=== PATIENT | female | born 1945 | race Caucasian/White ===

== ENCOUNTER 2021-02-22 07:38 | Inpatient (IN) | payer MEDICARE, MEDICAID, SELFPAY ==
[2021-02-22] VITALS (16 sets, daily range): BP systolic 128–164; BP diastolic 74–108; PULSE 67–99; RESP 18–26; TEMP 35.9–37.1; O2SAT 90–99; BMI 35.4
--- NOTE | ~2021-02-22 | US_ITS ---
EXAMINATION: US carotid duplex BI DATE: 02/22/2021 15:38 INDICATION: Cerebrovascular accident TECHNIQUE: Grayscale, color Doppler, and pulsed Doppler images of the cervical carotid arteries were obtained. The degree of vessel stenosis is placed in one of the following categories: normal, <50%, 5 0-69%, >=70% but less than near-occlusion, near-occlusion, or total occlusion. Note that percent sten osis relative to normal distal artery lumen diameter is indirectly measured from velocity measurement s as described by Brown, et al. Radiology 2003; 229:340-346. COMPARISON: None. FINDINGS: The technologist notes that examination was very limited due to tortuous vessels and inabil ity of the patient to fully cooperate, including inability to hold still and patient coughing. RIGHT: The right common carotid artery (CCA) peak systolic velocity (PSV) is 67.7 cm/s. The right internal c arotid artery (ICA) PSV is 99.1 cm/s. The right ICA end-diastolic velocity (EDV) is 24.1 cm/s. [facility] ICA/CCA PSV ratio is 1.46. Grayscale and color Doppler images yield an estimate of less than 50% diameter reduction from plaque in the ICA. The external carotid artery (ECA) PSV is 95.2 cm/s. There is antegrade flow in the right vertebral artery. LEFT: The left CCA PSV is 82.3 cm/s. The left ICA PSV is 99.1 cm/s. The left ICA EDV is 39.6 cm/s. The left ICA/CCA PSV ratio is 1.20. Grayscale and color Doppler images yield an estimate of less than 50% yaa meter reduction from plaque in the ICA. The ECA IS NOT WELL DEMONSTRATED.. There is antegrade flow in the left vertebral artery. IMPRESSION: 1. Less than 50% stenosis in the right internal carotid artery. 2. Less than 50% stenosis in the left internal carotid artery. Reviewed, dictated and finalized at [facility]. Reviewed, dictated and finalized at [facility].
--- NOTE | ~2021-02-22 | XR_ITS ---
EXAMINATION: XR barium swallow modified DATE: 02/23/2021 10:55 INDICATION: Dysphagia. New cerebrovascular accident. TECHNIQUE: The patient was given barium-containing material of multiple consistencies to swallow by leyla pretty speech pathologist while I performed fluoroscopy. Dose-area product was 2.349 Gy-cm2. 3.3 minutes fluoroscopy time FINDINGS: Oral Stage: Within functional limits Pharyngeal Phase: Reduced laryngeal elevation and laryngeal penetration Cervical/Esophageal Stage: Within functional limits IMPRESSION: Modified esophagram findings as above. Please refer to the speech therapy report for spec [facility] recommendations. Reviewed, dictated and finalized at [facility]. Reviewed, dictated and finalized at [facility]. IMPRESSION: Modified esophagram findings as above. Please refer to the speech t herapy report for specific recommendations.
--- NOTE | ~2021-02-22 | CT_ITS ---
EXAMINATION: CT brain wo con DATE: 02/22/2021 08:37 INDICATION: Difficulty speaking. TECHNIQUE: Computed tomography (CT) of the head was performed without intravenous contrast. Sagittal and coronal reconstructions were performed. The mA was adjusted according to patient size. Iterative reconstruction technique was employed. The dose-length product was 529.67 mGy-cm. COMPARISON: head CT dated 10/10/2017 FINDINGS: Subtle small region of loss of ellis-white matter differentiation along a gyrus in the left frontal lo be suspicious for acute infarct. No acute intracranial hemorrhage or abnormal extra axial fluid colle ction. Again seen are small old cortical infarcts at the left lentiform nucleus and at the head of th e right caudate nucleus and adjacent anterior limb of the right internal capsule. Additional small ol d infarct in the inferior left cerebellar hemisphere. There is mild scattered white matter hypoattenu ation consistent with chronic small vessel ischemic disease. Ventricles are normal and symmetric. No mass/mass effect. Small amount of intracranial calcified cerebral atherosclerosis is noted at the ca rotid siphons. The orbits, paranasal sinuses and mastoid air cells are normal. IMPRESSION: 1. Subtle small region of loss of ellis-white matter differentiation in the left frontal lobe suspicio us for acute infarct. 2. Unchanged small lacunar infarcts in the bilateral basal ganglia and left cerebellum. 3. Mild scattered white matter hypoattenuation consistent with chronic small vessel ischemic disease. Reviewed, dictated and finalized at location [facility]. IMPRESSION: 1. Subtle small region of loss of ellis-white matter differentiation in the left frontal lobe suspicious for acute infarct. 2. Unchanged small lacunar infarcts in the bilateral basal ganglia and left cer ebellum. 3. Mild scattered white matter hypoattenuation consistent with chronic small ve ssel ischemic disease.
--- NOTE | ~2021-02-22 | MR_ITS ---
EXAMINATION: MR brain/brain stem wo con DATE: 02/23/2021 11:39 INDICATION: Cerebrovascular accident. TECHNIQUE: Magnetic resonance imaging (MRI) of the brain and brainstem was performed without intraven ous contrast. Sequences included sagittal and axial T1-weighted FSE, axial diffusion-weighted FS EPI, axial T2*-weighted GRE, axial T2-weighted FLAIR Propeller, and axial T2-weighted Propeller. Apparent diffusion coefficient (ADC) maps were created. COMPARISON: Head CT 02/22/2021 FINDINGS: There is a small acute infarct in left occipital lobe. There is an acute infarct in posteri or left frontal lobe. There is no intracranial hemorrhage or abnormal mass lesion. There are old infa rcts in the bilateral basal ganglia. There are scattered areas of nonspecific increased T2-weighted s ignal intensity in the cerebral white matter. There is a small area of chronic cystic encephalomalaci a in the right frontal lobe deep white matter. The ventricles are normal in size. There are likely ch anges of left ocular lens replacement surgery. The paranasal sinuses are clear. The mastoid air cells are normal. IMPRESSION: 1. Acute infarct involving left occipital lobe and posterior left frontal lobe. 2. Old infarcts in the bilateral basal ganglia and right frontal lobe deep white matter. 3. Mild nonspecific cerebral white matter disease, which likely represents chronic small vessel ische brittany disease. Reviewed, dictated and finalized at location [facility]. IMPRESSION: 1. Acute infarct involving left occipital lobe and posterior left frontal lobe. 2. Old infarcts in the bilateral basal ganglia and right frontal lobe deep whit e matter. 3. Mild nonspecific cerebral white matter disease, which likely represents oven baker jake small vessel ischemic disease.
--- NOTE | ~2021-02-22 | XR_ITS ---
EXAMINATION: XR chest 1V DATE: 02/22/2021 08:41 INDICATION: Stroke presenting with difficulty speaking. TECHNIQUE: frontal view of the chest was obtained. COMPARISON: Chest radiograph dated 04/20/2019 FINDINGS: New opacities at the left lower lung zone with loss of sharpness of the margins of the left hemidiaph ragm which could represent atelectasis, aspiration or pneumonia. Right lung remains clear. No pulmona ry edema, pneumothorax or definitive pleural effusion. The cardiomediastinal silhouette is normal. IMPRESSION: 1. New left basilar lung disease which could represent atelectasis, aspiration or pneumonia. Reviewed, dictated and finalized at location [facility].
--- NOTE | 2021-02-22 07:58 | ECG_ITS ---
Measurements Intervals [place] Rate: 73 P: 90 [place]: 222 QRS: 227 QRSD: 141 T: 45 QT: 403 QTc: 447 Interpretive Statements SINUS RHYTHM WITH FIRST DEGREE AV BLOCK FREQUENT ATRIAL PREMATURE COMPLEXES RIGHT AXIS DEVIATION LEFT BUNDLE BRANCH BLOCK BASELINE ARTIFACT- I, II, III, AVR, AVF, V2-V6 ABNORMAL ECG Electronically Signed On 02-22-2021 9:06:41 CDT by Chau Vega D.O.
[2021-02-22 08:18] LABS: Basophils Percent Auto 0.6 % (0.2-1.2); Eosinophils Absolute Auto 0.2 K/mm3 (0-0.3); Eosinophils Percent Auto 4.3 % (0-4.4); Hematocrit 37.9 % (37.0-47.0); Immature Granulocyte Absolute 0.01 K/mm3 (0.00-0.031); Immature Granulocyte Percent A 0.2 % (0-0.5); Lymphocytes Absolute Auto 1.27 K/mm3 (0.9-3.2); Lymphocytes Percent Auto 25.9 % (18.3-44.2); Mean Corpuscular HGB Conc 31.7 g/dl (32-36); Mean Corpuscular Volume 97.9 fl (80-100); Mean Platelet Volume 9.6 fl (7.4-10.4); Monocytes Absolute Auto 0.4 K/mm3 (0.1-0.6); Monocytes Percent Auto 8.6 % (2.6-8.5); Neutrophils Percent Auto 60.4 % (45.5-73.1); Platelet Count Result 250 k/mm3 (150-375); Red Blood Count 3.87 M/mm3 (4.2-5.4); Red Cell Distribution Width 14.8 % (11.5-14.5); White Blood Count 4.9 K/mm3 (4.5-10.0)
[2021-02-22 08:29] LABS: Glucose Point of Care 111 (65-105)
[2021-02-22 08:30] LABS: Prothrombin Time 13.3 Seconds (11.1-14.7)
--- NOTE | 2021-02-22 08:30 | ED.GENADULT ---
HPI - General Adult General Chief complaint: Neuro Symptoms/Deficit Stated complaint: APHASIA Time Seen by Provider: 02/22/21 07:44 Source: patient, family, EMS and RN notes reviewed Mode of arrival: EMS Limitations: clinical condition History of Present Illness HPI narrative: Patient is 75 years old white female came to the emergency room with her daughter by ambulance complaining of difficulty talking and numbness of the right face started last night. Woke up this morning with the same complaint. Patient denies any weakness, numbness anywhere else. Patient is not on any blood thinner although had history of CVA 2 years ago without residual deficit. Related Data Home Medications Medication Instructions Recorded Confirmed atorvastatin 80 mg tablet 80 mg PO DAILY 12/07/19 02/22/21 carvedilol 6.25 mg tablet 6.25 mg PO BID tablet 12/07/19 02/22/21 ezetimibe 10 mg tablet 10 mg PO DAILY 12/07/19 02/22/21 fenofibrate 160 mg tablet 160 mg PO DAILY 12/07/19 02/22/21 furosemide 20 mg tablet 20 mg PO DAILY tablet 12/07/19 02/22/21 gabapentin 300 mg capsule 300 mg PO TID 12/07/19 02/22/21 glipizide 10 mg tablet 10 mg PO BID 12/07/19 02/22/21 pantoprazole 40 mg tablet,delayed 40 mg PO DAILY tablet 12/07/19 02/22/21 release sitagliptin 100 mg tablet 100 mg PO DAILY 12/07/19 02/22/21 albuterol sulfate 1 inh INHALATION PRN PRN 02/22/21 02/22/21 cetirizine 10 mg PO DAILY 02/22/21 02/22/21 ergocalciferol (vitamin D2) 1,250 mcg PO WEEKLY 02/22/21 02/22/21 hydrocodone-acetaminophen 1 tablet PO Q6-8H PRN 02/22/21 02/22/21 insulin detemir U-100 [Levemir 10 unit SUBCUT DAILY 02/22/21 02/22/21 U-100 Insulin] insulin lispro 10 unit SUBCUT ACINSULIN 02/22/21 02/22/21 metoclopramide HCl [Reglan] 10 mg PO Q6H PRN 02/22/21 02/22/21 Allergies Allergy/AdvReac Type Severity Reaction Status Date / Time clindamycin Allergy Unknown Unknown Verified 02/22/21 08:29 morphine Allergy Unknown Unknown Verified 02/22/21 08:29 nitroglycerin Allergy Unknown Unknown Verified 02/22/21 08:29 Penicillins Allergy Unknown Unknown Verified 02/22/21 08:29 Review of Systems Review of Systems: Narrative: CONSTITUTIONAL: Denies fever, chills, or sweats. EYES: Denies visual changes, redness, or discharge. ENT: Denies rhinorrhea, congestion, sore throat, or otalgia. CARDIOVASCULAR: Denies chest pain, palpitations, or edema. RESPIRATORY: Denies cough or dyspnea. GASTROINTESTINAL: Denies abdominal pain, nausea, vomiting, or diarrhea. GENITOURINARY: Denies dysuria or hematuria. SKIN: Denies rash or itching. MUSCULOSKELETAL: Denies back pain, joint pain, or myalgia. NEUROLOGIC: Slurred speech PSYCHIATRIC: Denies anxiety or depression. 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, managed as type 2 Diastolic dysfunction Dyslipidemia Essential hypertension Hypersomnia SUZANNE on CPAP Stage III chronic kidney disease Unspecified diastolic (congestive) heart failure Surgical History Surgical History History of hysterectomy Family History Family History Father Family history of malignant neoplasm Social History Social History Smoking status: Never smoker Alcohol intake: current Gender identity (if verbalized by the patient): Female Exam Narrative: Exam Narrative: General appearance: Well-developed, well-nourished, daughter at the bedside Skin: Normal color Head: Normocephalic, nontraumatic Eyes: Clear conjunctiva ENT: Oropharynx normal, ears normal, nose normal Neck: Supple, nontender Chest and respiratory: Airway patent, no respiratory distress, no accessory muscle use Heart: Regular rate/rhythm Abdomen: Soft, nonte
[2021-02-22 08:31] LABS: Partial Thromboplastin Time 21.8 SECONDS (22.3-36.8)
[2021-02-22 08:35] LABS: Anion Gap 3 mmol/L (8-16); Blood Urea Nitrogen 35 mg/dL (7-17); Calcium 9.3 mg/dL (8.4-10.2); Carbon Dioxide 29 mmol/L (22-30); Chloride 110 mmol/L (98-107); Estimated CRCL calculation 36 ml/min; Estimated Glomerular Filt Rate 34; Glucose 109 mg/dL (65-105); Potassium 4.7 mmol/L (3.4-5.0); Sodium 142 mmol/L (137-145)
[2021-02-22 08:47] LABS: Troponin I 0.025 ng/mL (0.000-0.034)
[2021-02-22] MEDS: ASPIRIN 81 MG CHEWABLE TABLET 324 MG PO (10:54)
--- NOTE | 2021-02-22 12:16 | ADMGEN ---
This patient, Sarah Alvarado, was admitted to 2 Medical Room 252-01. Patient/family oriented to hospital policies and general routines including ID bracelet, bed and alarms, visiting hours, pain management, procedures, bathroom and other care routines, personal items, smoking policy, room service/diet, and visiting hours. Information on how to activate the Rapid Response Team has been discussed. Patient/Family are encouraged to report perceived risks to care and to ask questions if they do not understand what they are told or what they should do. Report received from NETTE Garcias.
[2021-02-22 13:24] LABS: Glucose Point of Care 129 (65-105)
[2021-02-22 14:36] LABS: Hemoglobin A1C 7.5 % (<5.7)
--- NOTE | 2021-02-22 14:45 | PM.IMHP ---
H&P: HPI History of Present Illness Date/Time: 02/22/21 14:45 Chief Complaint: Difficulty speaking and right facial numbness. Narrative: This is a 75-year-old female with multiple medical problems including congestive heart failure, hypertension, dyslipidemia, diabetes, chronic kidney disease, anemia, sleep apnea, and several other comorbidities who presented to the emergency department earlier today via EMS from home for evaluation of difficulty speaking and right facial numbness that she 1st noted last night. She and her daughter went to the [facility] yesterday and she got home at approximately 22:30 and seemed in her normal state of health. She drifted off to sleep for a couple of hours and awoke at 00:30, at which time she had some paresthesias in the right side of her face and she also noticed that she was having difficulty speaking. Unfortunately she went to bed and when she woke this morning her symptoms were still present and she came in for evaluation. Brain CT done on arrival to the ED showed a small area in the left frontal lobe suspicious for acute infarct and she is being admitted in this setting. At the time of my evaluation she reports that her speech has improved somewhat and she is able to provide a pretty good history although has times where it is difficult for her to come up with the appropriate word. In addition to dysarthria and facial paresthesias she also notes some issues with swallowing and has had drooling from the right side of her mouth. Chest x-ray also demonstrated left basilar disease, possible pneumonia or aspiration, but she denies symptoms and concerns for both of these. At this time she denies vertigo, focal weakness, auditory and visual changes, and palpitations (she will have them on occasion however). No history of cardiac dysrhythmia or carotid artery disease. Review of Systems Review of Systems: Narrative: Twelve systems were reviewed with pertinent positives and negatives as per HPI. She denies fever, chills, and sweats. No recent cold or flu symptoms. No known exposure to those positive for COVID-19. She denies concerns for aspiration. No cough. No orthopnea or PND. Her CPAP has a broken part which her insurance will not cover and she is unable to afford that she has not been using her CPAP. She believes her diabetes is fairly well controlled but admits that her numbers are typically higher in the afternoons. No recent lows. She denies blurry vision, polydipsia, and polyuria. No nausea, vomiting, or diarrhea. She received her 2nd vaccination for COVID approximately 2 weeks ago. Except as documented, all other systems were reviewed and are negative. [facility] Past Medical History Medical History (Updated 02/22/21 @ 14:06 by Rubi Crisostomo PA-C) Anemia of chronic disease Cerebrovascular accident 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 Chronic obstructive pulmonary disease Congestive heart failure History of reduced ejection fraction with improvement in EF to 55% on most recent echo. Diastolic dysfunction also noted. 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 Depression with anxiety Diabetic peripheral neuropathy Dyslipidemia Essential hypertension Fibromyalgia Gastroesophageal reflux disease History of peptic ulcer Hypersomnia Insulin dependent type 2 diabetes mellitus Obstructive sleep apnea on CPAP Osteoarthritis Stage III chronic kidney disease Baseline creatinine ranges between 1.3 and 1.60. Vitamin D deficiency Surgical History Surgical History (Updated 02/22/21 @ 14:03 by Rubi Crisostomo PA-C) History of appendectomy History of cardiac catheterization (~07/2013) Normal coronaries although anomalous left coronary artery arising from the right ostium was noted. History of hysterectomy (~1979) History of left breast biopsy
[2021-02-22] MEDS: ALBUTEROL SULFATE (*SP) INHALER 1 PUFF INHALATION (14:51)
--- NOTE | 2021-02-22 15:20 | PCPTNOTE ---
attempted eval, pt was unavailable, receiving carotid US.
[2021-02-22] MEDS: GABAPENTIN 300 MG CAPSULE PO ×2 (15:33→20:42)
[2021-02-22] MEDS: HYDROcodone/acetaminophen (*CRX) 10-325 MG TABLET 1 TAB PO ×2 (15:48→21:57)
[2021-02-22] MEDS: glipiZIDE 5 MG TABLET 10 MG PO (16:48)
[2021-02-22] MEDS: INSULIN ASPART (*BKC) 100 UNITS/ML 10 UNITS SUB-Q (16:53)
[2021-02-22 16:54] LABS: Glucose Point of Care 162 (65-105)
[2021-02-22] MEDS: FLUTICASONE PROPIONATE 0.05% NA SPR 16 GM BTL (*BKC) 1 SPRAY NASAL (20:41)
[2021-02-22] MEDS: INSULIN DETEMIR 100 UNITS/ML 40 UNITS SUB-Q (20:42)
[2021-02-22] MEDS: MELATONIN 5 MG TABLET PO (21:05)
[2021-02-22 21:14] LABS: Glucose Point of Care 139 (65-105)
[2021-02-23] VITALS (14 sets, daily range): BP systolic 107–143; BP diastolic 56–83; PULSE 64–116; RESP 16–18; TEMP 35.9–36.8; O2SAT 90–97; BMI 35.4
--- NOTE | 2021-02-23 00:15 | ECG_ITS ---
Measurements Intervals [place] Rate: 64 P: 91 [place]: 219 QRS: -53 QRSD: 133 T: 65 QT: 402 QTc: 415 Interpretive Statements SINUS RHYTHM WITH FIRST DEGREE AV BLOCK ATRIAL PREMATURE COMPLEXES LEFT AXIS DEVIATION LEFT BUNDLE BRANCH BLOCK ABNORMAL ECG Electronically Signed On 02-23-2021 7:10:32 CDT by Chau Vega D.O.
[2021-02-23 05:50] LABS: Hematocrit 34.7 % (37.0-47.0); Hemoglobin 11.3 g/dL (12.0-15.0); Mean Corpuscular HGB Conc 32.6 g/dl (32-36); Mean Corpuscular Volume 95.3 fl (80-100); Mean Platelet Volume 9.5 fl (7.4-10.4); Platelet Count Result 236 k/mm3 (150-375); Red Blood Count 3.64 M/mm3 (4.2-5.4); Red Cell Distribution Width 14.8 % (11.5-14.5); White Blood Count 4.9 K/mm3 (4.5-10.0)
[2021-02-23 06:00] LABS: Alanine Aminotransferase 15 U/L (4-35); Albumin Level 3.4 g/dL (3.5-5.1); Alkaline Phosphatase 42 U/L (38-126); Anion Gap 2 mmol/L (8-16); Aspartate Amino Transferase 26 U/L (14-36); Bilirubin,Total 0.2 mg/dL (0.2-1.3); Blood Urea Nitrogen 32 mg/dL (7-17); Calcium 9.3 mg/dL (8.4-10.2); Carbon Dioxide 29 mmol/L (22-30); Chloride 111 mmol/L (98-107); Estimated CRCL calculation 35 ml/min; Estimated Glomerular Filt Rate 34; Glucose 72 mg/dL (65-105); Sodium 142 mmol/L (137-145)
[2021-02-23] MEDS: ALBUTEROL SULFATE (*SP) INHALER 1 PUFF INHALATION (07:05)
[2021-02-23 08:16] LABS: Glucose Point of Care 94 (65-105)
--- NOTE | 2021-02-23 08:49 | WPDNEURCNPN ---
Assessment and Plan Assessment and plan (1) Acute cerebrovascular accident: Code(s): I63.9 - Cerebral infarction, unspecified Status: Acute Additional Plan Stroke with negative carotid ultrasound will benefit from the complete evaluation including the cardiac in the meantime she will be evaluated by the physical therapy department once the MRI is done and echocardiogram further decision will be made regarding the possibility of continuing the aspirin of anticoagulation therapy if any cardiac abnormalities are found Consult date: 02/23/21 Time Seen: 09:00 HPI: Sarah Alvarado is a 75 year old female Admitted to the hospital for the complaints of difficulties in speech and right facial numbness in addition to the comorbid conditions of 1. Hypertension 2. Dyslipidemia 3. Diabetes mellitus 4. Chronic kidney disease 5. Congestive heart failure 6. Anemia 7. Sleep apnea she was brought to the emergency room by EMS with the complaints of difficulties in speech and right facial numbness since the night before as per the information available the daughter came home at 10:30 p.m. at that time she was in normal state of health when she drifted off to sleep for a couple of hours and woke up at 12:30 p.m. at which time she had some paresthesia in the right side of her face also difficulties and speech she went to sleep and woke up in the morning with the same symptoms when she was brought to the hospital for further evaluation the initial CT scan in the Emergency Room documented small area in the left frontal lobe suspicious for acute infarct and she was admitted for further evaluation by the time she was seen by the hospitalist her speech was improved but she was having some difficulties in coming up with the appropriate word and also she noted some difficulties in swallowing and drooling from the right side of her mouth corner her initial evaluation included x-ray of the chest which which raised the possibility of early pneumonia possible aspiration. evaluation up until now includes the Doppler study of the carotid which is normal and CT scan of the head as mentioned before which is consistent with left frontal lobe suspicious for the acute infarct. [facility] Past Medical History Medical History Anemia of chronic disease Cerebrovascular accident 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 Chronic obstructive pulmonary disease Congestive heart failure History of reduced ejection fraction with improvement in EF to 55% on most recent echo. Diastolic dysfunction also noted. 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 Depression with anxiety Diabetic peripheral neuropathy Dyslipidemia Essential hypertension Fibromyalgia Gastroesophageal reflux disease History of peptic ulcer Hypersomnia Insulin dependent type 2 diabetes mellitus Obstructive sleep apnea on CPAP Osteoarthritis Stage III chronic kidney disease Baseline creatinine ranges between 1.3 and 1.60. Vitamin D deficiency Surgical History Surgical History History of appendectomy History of cardiac catheterization (~07/2013) Normal coronaries although anomalous left coronary artery arising from the right ostium was noted. History of hysterectomy (~1979) History of left breast biopsy Benign pathology. Family History Family History Father Malignant neoplasm of prostate Heart disease Mother Esophageal cancer Sibling Diabetes mellitus Daughter Alcoholism Social History Social History Social History: The patient is and lives in [place]. She is a lifelong nonsmoker however she reports significant secondhand smoke exposure as well
[2021-02-23] MEDS: LORazepam (*CRX) 0.5 MG TABLET PO (11:12)
--- NOTE | 2021-02-23 11:20 | PCOTNOTE ---
Attempted to see Patient for A.M. treatment session. Patient was out of the room, down having an MRI. Will check back at a later time.
--- NOTE | 2021-02-23 11:24 | PCSTNOTE ---
Please refer to the Modified Barium Swallow Evaluation in the EMR.
[2021-02-23] MEDS: HYDROcodone/acetaminophen (*CRX) 10-325 MG TABLET 1 TAB PO ×2 (12:13→18:42)
[2021-02-23] MEDS: LORATADINE 10 MG TABLET PO (12:14)
[2021-02-23] MEDS: glipiZIDE 5 MG TABLET 10 MG PO ×2 (12:14→16:10)
[2021-02-23] MEDS: EZETIMIBE 10 MG TABLET PO (12:15)
[2021-02-23] MEDS: PANTOPRAZOLE 40 MG TABLET PO (12:15)
[2021-02-23] MEDS: ASPIRIN 81 MG CHEWABLE TABLET PO (12:15)
[2021-02-23] MEDS: FENOFIBRATE 160 MG TABLET PO (12:16)
[2021-02-23] MEDS: carvediloL 25 MG TABLET PO (12:16)
[2021-02-23] MEDS: ATORVASTATIN 40 MG TABLET 80 MG PO (12:16)
[2021-02-23] MEDS: GABAPENTIN 300 MG CAPSULE PO ×3 (12:16→20:24)
[2021-02-23] MEDS: FLUTICASONE PROPIONATE 0.05% NA SPR 16 GM BTL (*BKC) 1 SPRAY NASAL ×2 (12:18→20:24)
[2021-02-23 13:01] LABS: Glucose Point of Care 122 (65-105)
[2021-02-23] MEDS: INSULIN ASPART (*BKC) 100 UNITS/ML 10 UNITS SUB-Q ×2 (13:02→16:24)
--- NOTE | 2021-02-23 13:37 | PM.IMPN ---
Progress Note: A&P Assessment and Plan (1) Acute cerebrovascular accident: Code(s): I63.9 - Cerebral infarction, unspecified Status: Acute Assessment and Plan: Symptom onset at least 8 hours prior to presentation. Head CT with subtle small region suspicious for acute infarct. Follow-up brain MRI showed acute infarct involving left occipital lobe and posterior left frontal lobe, as well as old infarct in bilateral basal ganglia and right frontal lobe. Carotid Doppler with <50% stenosis of bilateral internal carotid arteries. Telemetry and EKG reviewed. Neurology has been consulted and input is appreciated. Continue aspirin daily Monitor on telemetry. Consider Holter monitor upon discharge Echocardiogram with bubble study has been performed. Awaiting interpretation. Speech therapy evaluation appreciated. Recommendation to continue mildly thickened liquids and soft and bite sized diet. No straws. Continue speech therapy exercises while inpatient Will place consult to [facility] Continue PT/OT eval Check lipid panel (2) Abnormal chest x-ray: Code(s): R93.89 - Abnormal findings on diagnostic imaging of other specified body structures Status: Acute Assessment and Plan: Chest x-ray shows left basilar lung disease which could be atelectasis, aspiration, or pneumonia. She denies any respiratory symptoms. She is afebrile. Lungs are clear to auscultation. Aspiration is a consideration given dysarthria and issues with managing her saliva however seems less likely. No evidence of aspiration noted on modified barium swallow. Encourage incentive spirometry Hold on initiating antibiotics at this time. Monitor clinically And encourage incentive spirometry. Aspiration precautions in place. Dietary modifications as described above. Continue speech therapy. (3) Essential hypertension: Code(s): I10 - Essential (primary) hypertension Status: Acute Assessment and Plan: Blood pressures were reviewed and were initially running a bit high, in the 150s to 160 systolic. BP readings improved today in the 120-140s. Allow permissive hypertension for the next 12 hours given acute CVA. Monitor blood pressures daily (4) Insulin dependent type 2 diabetes mellitus: Code(s): E11.9 - Type 2 diabetes mellitus without complications; Z79.4 - halfway (current) use of insulin Status: Acute Assessment and Plan: Hemoglobin A1c is 7.5% (02/22/2021). Blood sugars reviewed and have been fairly well controlled. Last blood sugar 94. Continue home regimen of basal insulin, glipizide, sitagliptin. Sliding scale insulin, Accu-Cheks, and hypoglycemic protocol. (5) Obstructive sleep apnea on CPAP: Code(s): G47.33 - Obstructive sleep apnea (adult) (pediatric); Z99.89 - Dependence on other enabling machines and devices Status: Acute Assessment and Plan: Not currently using CPAP at home due to a broken piece which she tells me insurance will not cover. CPAP will be provided for the patient to use while hospitalized. (6) Stage III chronic kidney disease: Code(s): N18.3 - Chronic kidney disease, stage 3 (moderate) Status: Acute Assessment and Plan: Creatinine is stable on review of previous labs. Monitor renal function closely. Renally dose medications. (7) Congestive heart failure: Code(s): I50.9 - Heart failure, unspecified Status: Acute Assessment and Plan: Clinically compensated this time. Monitor volume status. Continue home medication regimen. (8) Chronic obstructive pulmonary disease: Code(s): J44.9 - Chronic obstructive pulmonary disease, unspecified Status: Acute Assessment and Plan: No acute issues. Continue current respiratory regimen of Symbicort BID and albuterol as needed Subjective Date/time seen: 02/23/21 13:37 Interval history: Date of service:
--- NOTE | 2021-02-23 14:07 | ECHO_ITS ---
Patient Info Name: Sarah Alvarado Age: 75 years : 1945 Gender: Female Ht: 66 in Wt: 219 lbs BSA: 2.19 m2 HR: 80 bpm BP: 143 / 83 mmHg Heart Rhythm: Sinus Rhythm Technical Quality: Good Exam Date: 02/23/2021 9:36 AM Exam Location: [facility] Pul[facility] Exam Room: 252 Patient Status: Inpatient Admit Date: 02/22/2021 Staff Ordering Physician: Rubi Crisostomo PA-C Net[employer] Developer: Annette Post RDCS Attending Provider: Andre Hugo MD Referring Physician: Kranthi CALDERON; Exam Type: CA echo doppler w bubble study Study Info Indications - cva Complete two-dimensional, color flow and Doppler transthoracic echocardiogram is performed with agitated saline. Contrast/Agitated Saline Contrast/Ag. Saline: Agitated Saline Amount: 20.00 ml Administered By: Emilie Dunn RN Existing IV Access: Yes IV Access Condition: patent with no signs of infiltration Summary 1. Left ventricular systolic function is mildly reduced, estimated at 45-50%. 2. There is moderate concentric increased left ventricular wall thickness. 3. Left atrial chamber dimension is mildly enlarged. 4. There is mild aortic valve sclerosis. 5. The mitral valve annulus is moderately calcified. 6. Compared with examination from 2018 there is no significant change. Left Ventricle Left ventricular chamber dimension is normal. Left ventricular systolic function is mildly reduced, estimated at 45-50%. There is moderate concentric increased left ventricular wall thickness. Left ventricular septal wall motion is abnormal with septal motion related to bundle branch block. The left ventricular diastolic function is grade I diastolic dysfunction. Right Ventricle Right ventricular chamber dimension is normal. Left Atria Left atrial chamber dimension is mildly enlarged. Right Atria Right atrial chamber dimension is normal. Atrial Septum Intact interatrial septum visualized by agitated saline imaging. Aortic Valve The aortic valve is trileaflet. There is mild aortic valve sclerosis. Pulmonic Valve The pulmonic valve is not well visualized. Mitral Valve The mitral valve has normal leaflets. There is no mitral valve regurgitation. The mitral valve annulus is moderately calcified. Tricuspid Valve The tricuspid valve leaflets are normal. Pericardium/Pleural The pericardium appears normal. Aorta The aortic root size at the sinus of Valsalva is normal. Left Ventricular Outflow Tract Name Value Normal LVOT 2D LVOT Diameter 2.0 cm LVOT Doppler LVOT Peak Gradient 5 mmHg LVOT Mean Gradient 2 mmHg LVOT VTI 25 cm LVOT VTI/AV VTI Ratio 0.9 LVOT Stroke Volume 82 ml LVOT CO 14.3 l/min LVOT CI 6.5 l/min/m2 Pulmonic Valve Name Value Erica
[2021-02-23 17:44] LABS: Glucose Point of Care 141 (65-105)
[2021-02-23] MEDS: MELATONIN 5 MG TABLET PO (20:24)
[2021-02-23] MEDS: INSULIN DETEMIR 100 UNITS/ML 40 UNITS SUB-Q (20:31)
[2021-02-23 20:50] LABS: Glucose Point of Care 195 (65-105)
[2021-02-24] VITALS (13 sets, daily range): BP systolic 107–165; BP diastolic 63–85; PULSE 57–99; RESP 16–20; TEMP 35.7–36.7; O2SAT 96–98
[2021-02-24] MEDS: HYDROcodone/acetaminophen (*CRX) 10-325 MG TABLET 1 TAB PO ×3 (00:46→20:27)
[2021-02-24 05:32] LABS: Hematocrit 35.4 % (37.0-47.0); Hemoglobin 11.4 g/dL (12.0-15.0)
[2021-02-24] MEDS: GABAPENTIN 300 MG CAPSULE PO ×3 (05:47→20:25)
[2021-02-24] MEDS: glipiZIDE 5 MG TABLET 10 MG PO ×2 (05:47→16:42)
[2021-02-24 06:09] LABS: Anion Gap 4 mmol/L (8-16); Blood Urea Nitrogen 38 mg/dL (7-17); Carbon Dioxide 24 mmol/L (22-30); Chloride 114 mmol/L (98-107); Cholesterol 144 mg/dL (0-200); Estimated CRCL calculation 35 ml/min; Estimated Glomerular Filt Rate 34; Glucose 97 mg/dL (65-105); HDL Direct 47 mg/dL; Potassium 4.4 mmol/L (3.4-5.0); Sodium 142 mmol/L (137-145); Triglycerides 106 mg/dL (<150)
[2021-02-24 06:20] LABS: LDL Cholesterol Direct 71 mg/dL
[2021-02-24 07:48] LABS: Glucose Point of Care 106 (65-105)
[2021-02-24] MEDS: ASPIRIN 81 MG ENTERIC TABLET PO (10:43)
[2021-02-24] MEDS: ATORVASTATIN 40 MG TABLET 80 MG PO (10:44)
[2021-02-24] MEDS: carvediloL 25 MG TABLET PO (10:47)
[2021-02-24] MEDS: EZETIMIBE 10 MG TABLET PO (10:48)
[2021-02-24] MEDS: FENOFIBRATE 160 MG TABLET PO (10:49)
[2021-02-24] MEDS: FUROSEMIDE 20 MG TABLET PO (10:50)
[2021-02-24] MEDS: FLUTICASONE PROPIONATE 0.05% NA SPR 16 GM BTL (*BKC) 1 SPRAY NASAL ×2 (10:50→21:43)
[2021-02-24] MEDS: PANTOPRAZOLE 40 MG TABLET PO (10:51)
[2021-02-24] MEDS: LORATADINE 10 MG TABLET PO (10:51)
[2021-02-24 11:28] LABS: Glucose Point of Care 127 (65-105)
--- NOTE | 2021-02-24 13:09 | PM.IMPN ---
Progress Note: A&P Assessment and Plan (1) Acute cerebrovascular accident: Code(s): I63.9 - Cerebral infarction, unspecified Status: Acute Assessment and Plan: Symptom onset at least 8 hours prior to presentation. Head CT with subtle small region suspicious for acute infarct. Follow-up brain MRI showed acute infarct involving left occipital lobe and posterior left frontal lobe, as well as old infarct in bilateral basal ganglia and right frontal lobe. Carotid Doppler with <50% stenosis of bilateral internal carotid arteries. Telemetry and EKG reviewed. Neurology following, recommendations appreciated Continue aspirin daily Monitor on telemetry. Consider Holter monitor upon discharge Echocardiogram with bubble study reduced EF 45-50%; mild ; MV annulus mod calcification; no change form 2018 Speech therapy evaluation appreciated. Recommendation to continue mildly thickened liquids and soft and bite sized diet. No straws. Continue speech therapy exercises while inpatient Will place consult to [facility] Continue PT/OT eval Check lipid panel (2) Abnormal chest x-ray: Code(s): R93.89 - Abnormal findings on diagnostic imaging of other specified body structures Status: Acute Assessment and Plan: Chest x-ray shows left basilar lung disease which could be atelectasis, aspiration, or pneumonia. She denies any respiratory symptoms. She is afebrile. Lungs are clear to auscultation. Aspiration is a consideration given dysarthria and issues with managing her saliva however seems less likely. No evidence of aspiration noted on modified barium swallow. Encourage incentive spirometry Hold on initiating antibiotics at this time. Monitor clinically And encourage incentive spirometry. Aspiration precautions in place. Dietary modifications as described above. Continue speech therapy. (3) Essential hypertension: Code(s): I10 - Essential (primary) hypertension Status: Acute Assessment and Plan: Blood pressures were reviewed and were initially running a bit high, in the 150s to 160 systolic. BP readings improved today in the 120-140s. Allow permissive hypertension for the next 12 hours given acute CVA. Monitor blood pressures daily (4) Insulin dependent type 2 diabetes mellitus: Code(s): E11.9 - Type 2 diabetes mellitus without complications; Z79.4 - longterm (current) use of insulin Status: Acute Assessment and Plan: Hemoglobin A1c is 7.5% (02/22/2021). Blood sugars reviewed and have been fairly well controlled. Last blood sugar 94. Continue home regimen of basal insulin, glipizide, sitagliptin. Sliding scale insulin, Accu-Cheks, and hypoglycemic protocol. (5) Obstructive sleep apnea on CPAP: Code(s): G47.33 - Obstructive sleep apnea (adult) (pediatric); Z99.89 - Dependence on other enabling machines and devices Status: Acute Assessment and Plan: Not currently using CPAP at home due to a broken piece which she tells me insurance will not cover. CPAP will be provided for the patient to use while hospitalized. (6) Stage III chronic kidney disease: Code(s): N18.3 - Chronic kidney disease, stage 3 (moderate) Status: Acute Assessment and Plan: Creatinine is stable on review of previous labs. Monitor renal function closely. Renally dose medications. (7) Congestive heart failure: Code(s): I50.9 - Heart failure, unspecified Status: Acute Assessment and Plan: Clinically compensated this time. Monitor volume status. Continue home medication regimen. (8) Chronic obstructive pulmonary disease: Code(s): J44.9 - Chronic obstructive pulmonary disease, unspecified Status: Acute Assessment and Plan: No acute issues. Continue current respiratory regimen of Symbicort BID and albuterol as needed Subjective Date/time seen: 02/24/21 13:09 pt seen
--- NOTE | 2021-02-24 14:52 | PC.NURSE ---
On 02/24/21, the student, [LEONEL OWUSU], provided care and completed [facility] documentation on this patient. I have reviewed the student's documentation and agree with the findings.
[2021-02-24 17:30] LABS: Glucose Point of Care 85 (65-105)
[2021-02-24] MEDS: MELATONIN 5 MG TABLET PO (20:27)
[2021-02-24] MEDS: INSULIN DETEMIR 100 UNITS/ML 40 UNITS SUB-Q (20:30)
[2021-02-24 21:10] LABS: Glucose Point of Care 156 (65-105)
[2021-02-25] VITALS (15 sets, daily range): BP systolic 124–141; BP diastolic 54–88; PULSE 55–93; RESP 16–20; TEMP 36.1–36.9; O2SAT 95–98
[2021-02-25] MEDS: GABAPENTIN 300 MG CAPSULE PO ×3 (05:13→20:34)
[2021-02-25] MEDS: glipiZIDE 5 MG TABLET 10 MG PO (05:13)
[2021-02-25] MEDS: HYDROcodone/acetaminophen (*CRX) 10-325 MG TABLET 1 TAB PO ×2 (05:14→17:14)
[2021-02-25 08:33] LABS: Glucose Point of Care 55 (65-105)
[2021-02-25] MEDS: GLUCOSE ORAL GEL 15 GM OF GLUCSE IN 37.5 GM TUBE PO (08:33)
[2021-02-25] MEDS: ASPIRIN 81 MG ENTERIC TABLET PO (09:29)
[2021-02-25] MEDS: ATORVASTATIN 40 MG TABLET 80 MG PO (09:29)
[2021-02-25] MEDS: FLUTICASONE PROPIONATE 0.05% NA SPR 16 GM BTL (*BKC) 1 SPRAY NASAL ×2 (09:30→20:34)
[2021-02-25] MEDS: LORATADINE 10 MG TABLET PO (09:30)
[2021-02-25] MEDS: PANTOPRAZOLE 40 MG TABLET PO (09:30)
[2021-02-25] MEDS: ERGOCALCIFEROL 50,000 UNIT CAPSULE 50000 UNITS PO (09:30)
[2021-02-25] MEDS: FUROSEMIDE 20 MG TABLET PO (09:30)
[2021-02-25] MEDS: FENOFIBRATE 160 MG TABLET PO (09:30)
[2021-02-25] MEDS: EZETIMIBE 10 MG TABLET PO (09:30)
[2021-02-25] MEDS: carvediloL 25 MG TABLET PO (09:31)
[2021-02-25 09:36] LABS: Glucose Point of Care 176 (65-105)
[2021-02-25 10:03] LABS: Basophils Percent Auto 0.2 % (0.2-1.2); Eosinophils Absolute Auto 0.2 K/mm3 (0-0.3); Eosinophils Percent Auto 2.8 % (0-4.4); Hematocrit 37.5 % (37.0-47.0); Immature Granulocyte Absolute 0.01 K/mm3 (0.00-0.031); Immature Granulocyte Percent A 0.2 % (0-0.5); Lymphocytes Absolute Auto 0.91 K/mm3 (0.9-3.2); Lymphocytes Percent Auto 16.9 % (18.3-44.2); Mean Corpuscular Hemoglobin 31.7 pg (26-34); Mean Corpuscular Volume 98.9 fl (80-100); Mean Platelet Volume 9.7 fl (7.4-10.4); Monocytes Absolute Auto 0.4 K/mm3 (0.1-0.6); Monocytes Percent Auto 6.5 % (2.6-8.5); Neutrophils Percent Auto 73.4 % (45.5-73.1); Platelet Count Result 233 k/mm3 (150-375); Red Blood Count 3.79 M/mm3 (4.2-5.4); White Blood Count 5.4 K/mm3 (4.5-10.0)
[2021-02-25 10:19] LABS: Anion Gap 4 mmol/L (8-16); Blood Urea Nitrogen 34 mg/dL (7-17); Calcium 8.9 mg/dL (8.4-10.2); Carbon Dioxide 28 mmol/L (22-30); Chloride 108 mmol/L (98-107); Estimated CRCL calculation 33 ml/min; Estimated Glomerular Filt Rate 32; Glucose 229 mg/dL (65-105); Potassium 4.2 mmol/L (3.4-5.0); Sodium 140 mmol/L (137-145)
--- NOTE | 2021-02-25 10:23 | PC.NURSE ---
Blood glucose 55 before breakfast. Hypoglycemic protocol followed and glucose gel x 1 given. Patient's breakfast tray then arrived. Patient felt tired and lightheaded with the decreased glucose. Followup blood glucose (after breakfast) was 176. Held scheduled Novolog 10 units and Januvia until orders could be reviewed by Isela HUGHES. Called and left voice message for Isela regarding above. Notified her that patient received Glipizide 10 mg early this morning as well. Will hold Januvia until Isela reviews orders.
[2021-02-25 11:44] LABS: Glucose Point of Care 207 (65-105)
--- NOTE | 2021-02-25 11:52 | PC.NURSE ---
Called to follow up on voice message left this morning regarding hypoglycemia. Patient now with blood glucose of 207. Called and left voice message inquiring about scheduled dose of Novolog 10 units as patient has been running low on sugars prior to this check. Will give sliding scale as ordered and will hold scheduled Novolog until further discussion with Isela HUGHES. Left message requesting return call to further discuss orders.
[2021-02-25] MEDS: INSULIN ASPART (*BKC) 100 UNITS/ML SUB-Q (12:03)
--- NOTE | 2021-02-25 12:20 | PCNFU ---
Nutrition Follow-Up Complete: Swallowing Difficulties as related to Dysphagia as evidenced by MBS. Goal: Adequate Intake of at least 75% of meals. Progressing towards goal. We will continue current goal. Pt current nutrition is Soft/Bite Sized, Level 6 with Moderately Thick liquids, Level 3 with Glucerna shakes BID. Last recorded weight is 99.5 kg, no new weight to report. Bowel Motility:+BM reported. Labs Reviewed:no labs to report. Meds Noted:Melatonin,NovoLog,Protonix,Lasix,Zetia,Symbicort,Januvia,Coreg. Additional Notes:Patient seen today for nutrition follow up. She does not like the thickened liquids diet but is trying to do her best. She did drink the Glucerna shake today. Oral Intake has been 0-60% of meals. Speech therapy is following. Monitoring: Will monitor every 5 days.
--- NOTE | 2021-02-25 13:43 | PM.IMPN ---
Progress Note: A&P Assessment and Plan (1) Acute cerebrovascular accident: Code(s): I63.9 - Cerebral infarction, unspecified Status: Acute Assessment and Plan: Symptom onset at least 8 hours prior to presentation. Head CT with subtle small region suspicious for acute infarct. Follow-up brain MRI showed acute infarct involving left occipital lobe and posterior left frontal lobe, as well as old infarct in bilateral basal ganglia and right frontal lobe. Carotid Doppler with <50% stenosis of bilateral internal carotid arteries. Telemetry and EKG reviewed. Neurology following, recommendations appreciated Continue aspirin daily Monitor on telemetry. Consider Holter monitor upon discharge Echocardiogram with bubble study reduced EF 45-50%; mild ; MV annulus mod calcification; no change form 2018 Speech therapy evaluation appreciated. Recommendation to continue mildly thickened liquids and soft and bite sized diet. No straws. Continue speech therapy exercises while inpatient Plan to d/c home with [facility] Continue PT/OT Lipid panel unremarkable (2) Abnormal chest x-ray: Code(s): R93.89 - Abnormal findings on diagnostic imaging of other specified body structures Status: Acute Assessment and Plan: Chest x-ray shows left basilar lung disease which could be atelectasis, aspiration, or pneumonia. She denies any respiratory symptoms. She is afebrile. Lungs are clear to auscultation. Aspiration is a consideration given dysarthria and issues with managing her saliva however seems less likely. No evidence of aspiration noted on modified barium swallow. Encourage incentive spirometry Hold on initiating antibiotics at this time. Monitor clinically And encourage incentive spirometry. Aspiration precautions in place. Dietary modifications as described above. Continue speech therapy. (3) Essential hypertension: Code(s): I10 - Essential (primary) hypertension Status: Acute Assessment and Plan: Blood pressures were reviewed and were initially running a bit high, in the 150s to 160 systolic. BP readings improved today in the 120-140s. S/p permissive hypertension. Monitor blood pressures daily (4) Insulin dependent type 2 diabetes mellitus: Code(s): E11.9 - Type 2 diabetes mellitus without complications; Z79.4 - emt intermediate (current) use of insulin Status: Acute Assessment and Plan: Hemoglobin A1c is 7.5% (02/22/2021). Blood sugars reviewed and have been fairly well controlled. Last blood sugar 94. Continue home regimen of basal insulin, glipizide, sitagliptin. Sliding scale insulin, Accu-Cheks, and hypoglycemic protocol. (5) Obstructive sleep apnea on CPAP: Code(s): G47.33 - Obstructive sleep apnea (adult) (pediatric); Z99.89 - Dependence on other enabling machines and devices Status: Acute Assessment and Plan: Not currently using CPAP at home due to a broken piece which she tells me insurance will not cover. CPAP will be provided for the patient to use while hospitalized. (6) Stage III chronic kidney disease: Code(s): N18.3 - Chronic kidney disease, stage 3 (moderate) Status: Acute Assessment and Plan: Creatinine is stable on review of previous labs. Monitor renal function closely. Renally dose medications. (7) Congestive heart failure: Code(s): I50.9 - Heart failure, unspecified Status: Acute Assessment and Plan: Clinically compensated this time. Monitor volume status. Continue home medication regimen. (8) Chronic obstructive pulmonary disease: Code(s): J44.9 - Chronic obstructive pulmonary disease, unspecified Status: Acute Assessment and Plan: No acute issues. Continue current respiratory regimen of Symbicort BID and albuterol as needed Subjective Date/time seen: 02/25/21 13:43 Pt seen and evaluated; no new complai
[2021-02-25 17:10] LABS: Glucose Point of Care 162 (65-105)
[2021-02-25] MEDS: INSULIN DETEMIR 100 UNITS/ML 40 UNITS SUB-Q (20:36)
[2021-02-25] MEDS: MELATONIN 5 MG TABLET PO (20:36)
[2021-02-25] MEDS: SIMETHICONE 80 MG TAB.CHEW PO (21:09)
[2021-02-25 21:10] LABS: Glucose Point of Care 138 (65-105)
[2021-02-26] VITALS (7 sets, daily range): BP systolic 113–130; BP diastolic 63–64; PULSE 71–81; RESP 16–18; TEMP 36.6–36.9; O2SAT 94
[2021-02-26] MEDS: HYDROcodone/acetaminophen (*CRX) 10-325 MG TABLET 1 TAB PO ×2 (00:11→06:05)
[2021-02-26] MEDS: GABAPENTIN 300 MG CAPSULE PO ×2 (05:44→13:26)
[2021-02-26 07:28] LABS: Glucose Point of Care 65 (65-105)
[2021-02-26 08:04] LABS: Glucose Point of Care 97 (65-105)
[2021-02-26] MEDS: EZETIMIBE 10 MG TABLET PO (08:24)
[2021-02-26] MEDS: ASPIRIN 81 MG ENTERIC TABLET PO (08:24)
[2021-02-26] MEDS: FENOFIBRATE 160 MG TABLET PO (08:24)
[2021-02-26] MEDS: PANTOPRAZOLE 40 MG TABLET PO (08:24)
[2021-02-26] MEDS: carvediloL 25 MG TABLET PO (08:25)
[2021-02-26] MEDS: ATORVASTATIN 40 MG TABLET 80 MG PO (08:25)
[2021-02-26] MEDS: LORATADINE 10 MG TABLET PO (08:26)
[2021-02-26] MEDS: FLUTICASONE PROPIONATE 0.05% NA SPR 16 GM BTL (*BKC) 1 SPRAY NASAL (08:27)
[2021-02-26 09:51] LABS: Hematocrit 38.6 % (37.0-47.0); Hemoglobin 12.4 g/dL (12.0-15.0); Mean Corpuscular HGB Conc 32.1 g/dl (32-36); Mean Corpuscular Hemoglobin 31.3 pg (26-34); Mean Corpuscular Volume 97.5 fl (80-100); Mean Platelet Volume 9.5 fl (7.4-10.4); Platelet Count Result 247 k/mm3 (150-375); Red Blood Count 3.96 M/mm3 (4.2-5.4); White Blood Count 5.2 K/mm3 (4.5-10.0)
[2021-02-26 10:01] LABS: Anion Gap 4 mmol/L (8-16); Blood Urea Nitrogen 37 mg/dL (7-17); Calcium 8.8 mg/dL (8.4-10.2); Carbon Dioxide 31 mmol/L (22-30); Chloride 106 mmol/L (98-107); Estimated CRCL calculation 30 ml/min; Estimated Glomerular Filt Rate 28; Glucose 152 mg/dL (65-105); Potassium 4.2 mmol/L (3.4-5.0); Sodium 141 mmol/L (137-145)
--- NOTE | 2021-02-26 10:34 | WPDNEUROPN ---
Progress Note: A&P Assessment and Plan (1) Acute cerebrovascular accident: Code(s): I63.9 - Cerebral infarction, unspecified Status: Acute Additional Plan status post documented left occipital and posterior left frontal lobe stroke with speech difficulties clinical along with the generalized weakness as well she will benefit from the ongoing speech therapy cardiac evaluation is negative to consider the anticoagulation therapy will continue only aspirin or a discussion was made with the patient as well as with her son Review of Systems Review of Systems: All systems reviewed & are unremarkable except as noted in HPI and below Exam Const: General: cooperative, comfortable, no acute distress, alert and awake Nutritional Appearance: overweight Orientation/consciousness: oriented to person, oriented to place and oriented to time Limitations: language barrier and physical limitations HENMT: Head: normal to inspection Ears: hearing grossly normal bilaterally Face and sinus: normal facial exam Eyes: General: appearance normal, both eyes and all related structures Visual Conroy: normal visual conroy by confrontation Alignment and Position: alignment normal Periorbital: periorbital findings normal Eyelids: eyelids normal Conjunctivae: conjunctivae normal Sclera: sclerae normal Cornea: corneas normal Neck: Neck: full ROM and no lymphadenopathy Resp: Effort & Inspection: normal respiratory effort Auscultation: clear to auscultation bilaterally Cardio: Palpation: normal PMI Rate: regular rate Skin: General skin exam: no rashes or lesions noted Neuro: General: oriented to person, oriented to place, oriented to time, moves all extremities and CN's II-XI intact bilaterally Cranial nerves: Yes CN's II-XII intact bilaterally, Yes Facial sensation intact/muscles of mastication intact, Yes Equal, round and reactive pupils present, Yes Normal accommodation reflex present, Yes Bilaterally intact EOM present, Yes Nystagmus not present, Yes Normal facial strength present, Yes Midline tongue present and Yes Normal hearing present Cognition (Neuro): normal cognition Speech: normal speech Gait exam (Neuro): Wide-based gait present Motor exam (neuro): Abnormal motor strength present Deep tendon reflexes (DTR's): Right triceps reflex intensity grade: 1+, Left triceps reflex intensity grade: 1+, Rt Biceps (C5, C6): 1+, Left biceps reflex intensity grade: 1+, Right brachioradialis reflex intensity grade: 1+, Left brachioradialis reflex intensity grade: 1+, Right patellar reflex intensity grade: 2+, Left patellar reflex intensity grade: 1+, Right ankle reflex intensity grade: 2+ and Left ankle reflex intensity grade: 1+ Plantar Reflex Responses: downgoing: left and equivocal: right and bilateral Coordination: [id number] test normal Objective Data Vital Signs Vital Signs: Vital Signs - 24 hr 02/25/21 12:00 02/25/21 14:00 02/25/21 16:00 Temperature 36.1 C L Pulse Rate 73 92 83 Respiratory Rate 16 Blood Pressure 124/72 Pulse Oximetry 02/25/21 18:00 02/25/21 19:25 02/25/21 20:00 Temperature 36.6 C 36.6 C Pulse Rate 61 90 75 Respiratory Rate 18 20 Blood Pressure 141/75 H 133/79 Pulse Oximetry 98 97 02/25/21 22:17 02/25/21 23:20 02/26/21 00:00 Temperature 36.9 C Pulse Rate 55 L 90 76 Respiratory Rate 20 Blood Pressure 124/60 Pulse Oximetry 95 97 02/26/21 04:00 02/26/21 05:00 02/26/21 08:00 Temperature 36.9 C Pulse Rate 73 81 77 Respiratory Rate 18 Blood Pressure 130/63 Pulse Oximetry 94 02/26/21 08:25 Temperature Pulse Rate 76 Respiratory Rate Blood Pressure Pulse Oximetry Intake/Output Intake/Output: Intake & Output 02/23/21 02/24/21 02/25/21 02/26/21 23:59 23:59 23:59 23:59 Intake Total 690 540 490 15 Output Total 1250 1000 850 750 Balance -560 -460 -360 -735 Meds/Results Medications: Active Medications Generic Name Dose Route Start Last Admin Tr
[2021-02-26 11:12] LABS: Glucose Point of Care 131 (65-105)
--- NOTE | 2021-02-26 13:56 | PC.NURSE ---
On 02/26/21, the student, [ Chava Vanessa], provided care and completed [employer] documentation on this patient. I have reviewed the student's documentation and agree with the findings.
--- NOTE | 2021-02-26 16:04 | PM.DS ---
DS: Admitting Diagnosis Admitting Diagnosis Admitting Diagnosis: acute CVA DS: Discharge Diagnosis Discharge Diagnosis (1) Acute cerebrovascular accident: Code(s): I63.9 - Cerebral infarction, unspecified Status: Acute Assessment and Plan: Symptom onset at least 8 hours prior to presentation. Head CT with subtle small region suspicious for acute infarct. Follow-up brain MRI showed acute infarct involving left occipital lobe and posterior left frontal lobe, as well as old infarct in bilateral basal ganglia and right frontal lobe. Carotid Doppler with <50% stenosis of bilateral internal carotid arteries. Telemetry and EKG reviewed. Neurology following, recommendations appreciated Continue aspirin daily Monitor on telemetry. Consider Holter monitor upon discharge Echocardiogram with bubble study reduced EF 45-50%; mild ; MV annulus mod calcification; no change form 2018 Speech therapy evaluation appreciated. Recommendation to continue mildly thickened liquids and soft and bite sized diet. No straws. Continue speech therapy exercises while inpatient Plan to d/c home with [facility] Continue PT/OT Lipid panel unremarkable (2) Abnormal chest x-ray: Code(s): R93.89 - Abnormal findings on diagnostic imaging of other specified body structures Status: Acute Assessment and Plan: Chest x-ray shows left basilar lung disease which could be atelectasis, aspiration, or pneumonia. She denies any respiratory symptoms. She is afebrile. Lungs are clear to auscultation. Aspiration is a consideration given dysarthria and issues with managing her saliva however seems less likely. No evidence of aspiration noted on modified barium swallow. Encourage incentive spirometry Hold on initiating antibiotics at this time. Monitor clinically And encourage incentive spirometry. Aspiration precautions in place. Dietary modifications as described above. Continue speech therapy. (3) Essential hypertension: Code(s): I10 - Essential (primary) hypertension Status: Acute Assessment and Plan: Blood pressures were reviewed and were initially running a bit high, in the 150s to 160 systolic. BP readings improved today in the 120-140s. S/p permissive hypertension. Monitor blood pressures daily (4) Insulin dependent type 2 diabetes mellitus: Code(s): E11.9 - Type 2 diabetes mellitus without complications; Z79.4 - skilled nursing (current) use of insulin Status: Acute Assessment and Plan: Hemoglobin A1c is 7.5% (02/22/2021). Blood sugars reviewed and have been fairly well controlled. Last blood sugar 94. Continue home regimen of basal insulin, glipizide, sitagliptin. Sliding scale insulin, Accu-Cheks, and hypoglycemic protocol. (5) Obstructive sleep apnea on CPAP: Code(s): G47.33 - Obstructive sleep apnea (adult) (pediatric); Z99.89 - Dependence on other enabling machines and devices Status: Acute Assessment and Plan: Not currently using CPAP at home due to a broken piece which she tells me insurance will not cover. CPAP will be provided for the patient to use while hospitalized. (6) Stage III chronic kidney disease: Code(s): N18.3 - Chronic kidney disease, stage 3 (moderate) Status: Acute Assessment and Plan: Creatinine is stable on review of previous labs. Monitor renal function closely. Renally dose medications. (7) Congestive heart failure: Code(s): I50.9 - Heart failure, unspecified Status: Acute Assessment and Plan: Clinically compensated this time. Monitor volume status. Continue home medication regimen. (8) Chronic obstructive pulmonary disease: Code(s): J44.9 - Chronic obstructive pulmonary disease, unspecified Status: Acute Assessment and Plan: No acute issues. Continue current respiratory regimen of Symbicort BID and albuterol as needed
== END 2021-02-26 14:25 | disposition home health service (06) | DRG 65 ==
LOC: ANHED 10:11 → ANH2MED 15:55
PROVIDERS: Nurse Practitioner Adult Health; Physician Assistant; Admitting Provider Family Medicine; Emergency Provider Emergency Medicine; PCP Family Medicine; Visit Provider Hospitalist
DX: I63.9 Cerebral infarction, unspecified (principal); I13.0 Hypertensive heart and chronic kidney disease with heart failure and stage 1 through stage 4 chronic kidney disease, or unspecified chronic kidney disease; I50.32 Chronic diastolic (congestive) heart failure; N18.30 Chronic kidney disease, stage 3 unspecified; E13.22 Other specified diabetes mellitus with diabetic chronic kidney disease; R29.810 Facial weakness; R47.1 Dysarthria and anarthria; R53.1 Weakness; R47.01 Aphasia; D63.8 Anemia in other chronic diseases classified elsewhere; E13.42 Other specified diabetes mellitus with diabetic polyneuropathy; R93.89 Abnormal findings on diagnostic imaging of other specified body structures; G47.33 Obstructive sleep apnea (adult) (pediatric); J44.9 Chronic obstructive pulmonary disease, unspecified; F41.8 Other specified anxiety disorders; E78.5 Hyperlipidemia, unspecified; R29.702 NIHSS score 2; M79.7 Fibromyalgia; K21.9 Gastro-esophageal reflux disease without esophagitis; M19.90 Unspecified osteoarthritis, unspecified site; E55.9 Vitamin D deficiency, unspecified; Z79.4 Long term (current) use of insulin; Z90.710 Acquired absence of both cervix and uterus; Z90.49 Acquired absence of other specified parts of digestive tract
CPT/HCPCS: 36415; 70450; 70551; 71045; 80048; 80053; 80061; 82948; 83036; 83735; 84443; 84484; 85014; 85018; 85025; 85027; 85610; 85730; 92507; 92523; 92526; 92611; 93005; 93306; 93880; 94640; 96374; 96375; 97110; 97116; 97161; 97165; 97530; 97535; 99285; A9270; J0131; J1815

== ENCOUNTER 2021-05-24 15:01 | Emergency (ER) | payer MEDICARE, MEDICAID, SELFPAY ==
--- NOTE | ~2021-05-24 | XR_ITS ---
EXAMINATION: XR chest 1V portable DATE: 05/24/2021 16:16 INDICATION: Cough and shortness of breath TECHNIQUE: frontal view of the chest was obtained. COMPARISON: Chest radiograph dated 02/22/[address] dated 04/18/2019 FINDINGS: The lungs are clear with no focal airspace opacities, pulmonary edema, pleural effusion or pneumothor ax. Cardiomegaly with left pericardial fat pad. IMPRESSION: 1. Cardiomegaly. No acute cardiopulmonary disease. Reviewed, dictated and finalized at location A.
[2021-05-24 15:06] VITALS: BP 132/59; PULSE 84; RESP 18; TEMP 36.1; O2SAT 95
--- NOTE | 2021-05-24 15:24 | ED.SOB ---
HPI - SOB/Dyspnea General Chief Complaint: Shortness of Breath/Dyspnea Stated Complaint: sob Time Seen by Provider: 05/24/21 15:18 History of Present Illness HPI Narrative: Productive cough for the past few days. Assocaited with SOB, only during coughing episodes. She is not able to sleep due to coughing. She has tried asthma medications without significnat improvement. No CP, SOB, fever. She has had her COVID-19 vaccination. Related Data Home Medications Medication Instructions Recorded Confirmed atorvastatin 80 mg tablet 80 mg PO DAILY 12/07/19 05/27/21 ezetimibe 10 mg tablet 10 mg PO DAILY 12/07/19 05/27/21 fenofibrate 160 mg tablet 160 mg PO DAILY 12/07/19 05/27/21 furosemide 20 mg tablet 20 mg PO EVERY OTHER DAY PRN 12/07/19 05/27/21 tablet gabapentin 300 mg capsule 300 mg PO TID 12/07/19 05/27/21 sitagliptin 100 mg tablet 100 mg PO DAILY 12/07/19 05/27/21 Levemir U-100 Insulin 40 unit SUBCUT HS 02/22/21 05/27/21 budesonide-formoterol [Symbicort] 2 puff INHALATION Q12H 02/22/21 05/27/21 carvedilol [Coreg] 25 mg PO DAILY 02/22/21 05/27/21 cetirizine 10 mg PO PRN PRN 02/22/21 05/27/21 ergocalciferol (vitamin D2) 1,250 mcg PO WEEKLY 02/22/21 05/27/21 fluticasone propionate [Allergy 1 spray INTRANASAL Q12H PRN 02/22/21 05/27/21 Relief (fluticasone)] glipizide 10 mg PO BID 02/22/21 05/27/21 hydrocodone-acetaminophen 1 tablet PO Q6H PRN 02/22/21 05/27/21 melatonin 5 mg PO HS PRN 02/22/21 05/27/21 Benadryl 25 mg PO HS PRN 05/27/21 05/27/21 albuterol sulfate 1 - 2 puff INHALATION Q4-6H PRN 05/27/21 05/27/21 Allergies Allergy/AdvReac Type Severity Reaction Status Date / Time clindamycin Allergy Unknown Nausea and Verified 05/27/21 09:32 Vomiting morphine Allergy Unknown Vomiting Verified 05/27/21 09:32 nitroglycerin Allergy Unknown Headache Verified 05/27/21 09:32 Penicillins Allergy Unknown Hives Verified 05/27/21 09:32 Review of Systems Review of Systems: All systems reviewed & are unremarkable except as noted in HPI and below Constitutional: Constitutional: Denies chills and Denies fever(s) ENT: Reports nasal congestion and Denies sore throat Cardiovascular: Cardiovascular: Denies chest pain Respiratory: Respiratory: Reports cough, Denies dyspnea and Reports wheezing Gastrointestinal: Gastrointestinal: Denies nausea and Denies vomiting Neurologic: Denies confusion, Denies dizziness and Denies weakness [facility] [place] Past Medical History Medical History Anemia of chronic disease Cerebrovascular accident 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 Chronic obstructive pulmonary disease Congestive heart failure History of reduced ejection fraction with improvement in EF to 55% on most recent echo. Diastolic dysfunction also noted. 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 Depression with anxiety Diabetic peripheral neuropathy Dyslipidemia Essential hypertension Fibromyalgia Gastroesophageal reflux disease History of peptic ulcer Hypersomnia Insulin dependent type 2 diabetes mellitus Obstructive sleep apnea on CPAP Osteoarthritis Stage III chronic kidney disease Baseline creatinine ranges between 1.3 and 1.60. Vitamin D deficiency Surgical History Surgical History History of appendectomy History of cardiac catheterization (~07/2013) Normal coronaries although anomalous left coronary artery arising from the right ostium was noted. History of hysterectomy (~1979) History of left breast biopsy Benign pathology. Family History Family History Father Malignant neoplasm of prostate Heart disease Mother Esophageal cancer Sibling Diabetes mellitus Daughter Alcoholism Soci
[2021-05-24] MEDS: IPRATROPIUM BR 0.02% INH SOLN 0.5 MG/2.5 ML VIAL INHALATION (16:02)
[2021-05-24] MEDS: ALBUTEROL SULFATE NEB 2.5 MG/0.5 ML INH 5 MG INHALATION (16:02)
[2021-05-24 16:03] VITALS: PULSE 72; RESP 18
[2021-05-24 16:11] VITALS: PULSE 75; RESP 20
[2021-05-24 16:13] LABS: Basophils Percent Auto 0.3 % (0.2-1.2); Eosinophils Absolute Auto 0.1 K/mm3 (0-0.3); Eosinophils Percent Auto 2.1 % (0-4.4); Hematocrit 32.9 % (37.0-47.0); Hemoglobin 10.7 g/dL (12.0-15.0); Lymphocytes Absolute Auto 0.79 K/mm3 (0.9-3.2); Lymphocytes Percent Auto 21.2 % (18.3-44.2); Mean Corpuscular HGB Conc 32.5 g/dl (32-36); Mean Corpuscular Hemoglobin 31.7 pg (26-34); Mean Corpuscular Volume 97.3 fl (80-100); Mean Platelet Volume 9.8 fl (7.4-10.4); Monocytes Absolute Auto 0.3 K/mm3 (0.1-0.6); Monocytes Percent Auto 9.1 % (2.6-8.5); Neutrophils Absolute Auto 2.5 K/mm3 (1.3-6.7); Neutrophils Percent Auto 67.3 % (45.5-73.1); Platelet Count Result 191 k/mm3 (150-375); Red Blood Count 3.38 M/mm3 (4.2-5.4); Red Cell Distribution Width 15.3 % (11.5-14.5); White Blood Count 3.7 K/mm3 (4.5-10.0)
[2021-05-24 16:25] LABS: Anion Gap 7 mmol/L (8-16); Blood Urea Nitrogen 28 mg/dL (7-17); Calcium 8.7 mg/dL (8.4-10.2); Carbon Dioxide 24 mmol/L (22-30); Chloride 107 mmol/L (98-107); Estimated CRCL calculation 33 ml/min; Estimated Glomerular Filt Rate 32; Glucose 244 mg/dL (65-110); Potassium 4.3 mmol/L (3.4-5.0); Sodium 138 mmol/L (137-145)
== END 2021-05-24 17:21 | disposition home or self-care (01) ==
PROVIDERS: Emergency Provider Emergency Medicine; PCP Family Medicine
DX: R05 Cough (principal); E11.22 Type 2 diabetes mellitus with diabetic chronic kidney disease; N18.30 Chronic kidney disease, stage 3 unspecified; I13.0 Hypertensive heart and chronic kidney disease with heart failure and stage 1 through stage 4 chronic kidney disease, or unspecified chronic kidney disease; I50.9 Heart failure, unspecified; J44.9 Chronic obstructive pulmonary disease, unspecified; I11.0 Hypertensive heart disease with heart failure; E78.5 Hyperlipidemia, unspecified; E11.42 Type 2 diabetes mellitus with diabetic polyneuropathy; D63.1 Anemia in chronic kidney disease; M79.7 Fibromyalgia; G47.33 Obstructive sleep apnea (adult) (pediatric); K21.9 Gastro-esophageal reflux disease without esophagitis; M19.90 Unspecified osteoarthritis, unspecified site; E55.9 Vitamin D deficiency, unspecified; Z86.73 Personal history of transient ischemic attack (TIA), and cerebral infarction without residual deficits; Z87.11 Personal history of peptic ulcer disease; Z79.82 Long term (current) use of aspirin; Z79.4 Long term (current) use of insulin
CPT/HCPCS: 36415; 71045; 80048; 85025; 94640; 99284

== ENCOUNTER 2021-05-27 09:13 | Inpatient (IN) | payer MEDICARE, MEDICAID, SELFPAY ==
[2021-05-27] VITALS (53 sets, daily range): BP systolic 111–165; BP diastolic 62–111; PULSE 64–98; RESP 9–33; TEMP 36.4–36.9; O2SAT 92–98; BMI 35.8
--- NOTE | ~2021-05-27 | XR_ITS ---
EXAMINATION: XR chest 2V DATE: 05/27/2021 09:56 INDICATION: Cough and shortness of breath TECHNIQUE: frontal and lateral views of the chest were obtained. COMPARISON: Chest radiograph dated 04/20/2019 FINDINGS: Increased opacities in the posterior left lower lung zone which could represent atelectasis and/or pn eumonia. Right lung remains clear. No pulmonary edema, pleural effusion or pneumothorax. Cardiomegaly . Tortuous thoracic aorta. There are bridging osteophytes at multiple levels in the spine, consistent with diffuse idiopathic skeletal hyperostosis (DISH). IMPRESSION: 1. Airspace opacities in the left lower lobe which could represent atelectasis and/or pneumonia. 2. Cardiomegaly. Reviewed, dictated and finalized at location A.
--- NOTE | 2021-05-27 09:24 | ECG_ITS ---
Measurements Intervals Star Rate: 70 P: 84 OH: 205 QRS: -54 QRSD: 138 T: 82 QT: 419 QTc: 455 Interpretive Statements SINUS RHYTHM ATRIAL AND VENTRICULAR PREMATURE COMPLEXES LEFT BUNDLE BRANCH BLOCK BASELINE ARTIFACT- II, III, AVR, AVF, V1, V3-V6 ABNORMAL ECG Electronically Signed On 05-27-2021 9:34:47 CDT by Chau Vega D.O.
[2021-05-27 09:37] LABS: Basophils Percent Auto 0.2 % (0.2-1.2); Eosinophils Absolute Auto 0.1 K/mm3 (0-0.3); Eosinophils Percent Auto 1.8 % (0-4.4); Hematocrit 39.4 % (37.0-47.0); Hemoglobin 12.3 g/dL (12.0-15.0); Immature Granulocyte Absolute 0.02 K/mm3 (0.00-0.031); Immature Granulocyte Percent A 0.5 % (0-0.5); Lymphocytes Percent Auto 13.8 % (18.3-44.2); Mean Corpuscular HGB Conc 31.2 g/dl (32-36); Mean Corpuscular Hemoglobin 31.2 pg (26-34); Mean Platelet Volume 9.9 fl (7.4-10.4); Monocytes Absolute Auto 0.3 K/mm3 (0.1-0.6); Monocytes Percent Auto 7.1 % (2.6-8.5); Neutrophils Absolute Auto 3.3 K/mm3 (1.3-6.7); Neutrophils Percent Auto 76.6 % (45.5-73.1); Platelet Count Result 193 k/mm3 (150-375); Red Blood Count 3.94 M/mm3 (4.2-5.4); Red Cell Distribution Width 15.7 % (11.5-14.5); White Blood Count 4.3 K/mm3 (4.5-10.0)
[2021-05-27 09:57] LABS: Anion Gap 5 mmol/L (8-16); Blood Urea Nitrogen 28 mg/dL (7-17); Calcium 8.5 mg/dL (8.4-10.2); Carbon Dioxide 24 mmol/L (22-30); Chloride 109 mmol/L (98-107); Estimated CRCL calculation 35 ml/min; Estimated Glomerular Filt Rate 34; Glucose 94 mg/dL (65-110); Potassium 4.6 mmol/L (3.4-5.0); Sodium 138 mmol/L (137-145)
[2021-05-27] MEDS: ALBUTEROL SULFATE NEB 2.5 MG/0.5 ML INH 5 MG INHALATION ×2 (10:37→20:35)
[2021-05-27] MEDS: IPRATROPIUM BR 0.02% INH SOLN 0.5 MG/2.5 ML VIAL INHALATION ×2 (10:37→20:35)
[2021-05-27] MEDS: methylPREDNISolone SOD SUCC 125 MG VIAL 80 MG IV PUSH (10:49)
[2021-05-27 10:52] LABS: Alveolar/Arterial O2 Gradient 33.8 mmHg; Base Excess ABG -4.3 mEq/l (+/-2.0); Carboxyhemoglobin 0.3 % THb (0-2.0); Fractional Inspired Oxygen 21 %; HCO3 ABG 20.4 mEq/l (22.0-26.0); Methemoglobin ABG 0.1 %THb (0-1.5); Oxygen Saturation ABG 94.3 % (95.0-100.0); Oxyhemoglobin 92.4 % THb (90.0-100.0); PCO2 ABG 36.3 mmHg (35.0-45.0); PO2 ABG 72.5 mmHg (80.0-100.0); PO2 FiO2 Ratio Arterial Blood 3.45 %; Reduced Hemoglobin 7.2 %THb (0-5.0); Total Hemoglobin 12.3 g/dL (12.0-18.0); pH ABG 7.368 (7.350-7.450)
[2021-05-27 10:53] LABS: Device ROOM AIR; Site Drawn RIGHT BRACHIAL
--- NOTE | 2021-05-27 11:06 | PC.NURSE ---
pt ambulatory in [facility] with 1 assist. per pt, she was ambulating at her baseline. pt O2 sat increased to 100% and maintained while ambulating in halls. pt reports feeling better after her breathing treatment.
--- NOTE | 2021-05-27 11:13 | PC.NURSE ---
called lab and added on a Hepatic Lip at 1113 talked to Adeline
[2021-05-27 11:23] LABS: Alanine Aminotransferase 28 U/L (4-35); Albumin Level 3.4 g/dL (3.5-5.1); Alkaline Phosphatase 49 U/L (38-126); Aspartate Amino Transferase 54 U/L (14-36); Bilirubin,Total 0.6 mg/dL (0.2-1.3); Lipase 186 U/L (23-300)
--- NOTE | 2021-05-27 11:31 | ED.SOB ---
HPI - SOB/Dyspnea General Chief Complaint: Shortness of Breath/Dyspnea Stated Complaint: COUGH,CONGESTION Time Seen by Provider: 05/27/21 09:31 Source: patient and RN notes reviewed Mode of arrival: ambulatory Limitations: no limitations History of Present Illness HPI Narrative: Patient is a 75-year-old who presents with shortness of breath cough productive of green phlegm x4 days some mild congestion rhinorrhea notes that she has been vaccinated for Covid. Symptoms worse with activity denies chest pain vomiting diarrhea. Patient has been using her inhaler with some improvement was seen 2 days ago given Tessalon Perles which did not help to get an [id number] cough medicine which seemed to help. Presents in no distress does not appear uncomfortable lives with her daughter Related Data Home Medications Medication Instructions Recorded Confirmed atorvastatin 80 mg tablet 80 mg PO DAILY 12/07/19 02/22/21 ezetimibe 10 mg tablet 10 mg PO DAILY 12/07/19 02/22/21 fenofibrate 160 mg tablet 160 mg PO DAILY 12/07/19 02/22/21 furosemide 20 mg tablet 20 mg PO DAILY tablet 12/07/19 02/22/21 gabapentin 300 mg capsule 300 mg PO TID 12/07/19 02/22/21 pantoprazole 40 mg tablet,delayed 40 mg PO DAILY tablet 12/07/19 02/22/21 release sitagliptin 100 mg tablet 100 mg PO DAILY 12/07/19 02/22/21 Levemir U-100 Insulin 40 unit SUBCUT HS 02/22/21 02/22/21 albuterol 1 mcg INHALATION QID PRN 02/22/21 02/22/21 budesonide-formoterol [Symbicort] 2 puff INHALATION Q12H 02/22/21 02/22/21 carvedilol [Coreg] 25 mg PO DAILY 02/22/21 02/22/21 cetirizine 10 mg PO DAILY 02/22/21 02/22/21 ergocalciferol (vitamin D2) 1,250 mcg PO WEEKLY 02/22/21 02/22/21 fluticasone propionate [Allergy 1 spray INTRANASAL Q12H 02/22/21 02/22/21 Relief (fluticasone)] glipizide 10 mg PO BID 02/22/21 02/22/21 hydrocodone-acetaminophen 1 tablet PO Q6-8H PRN 02/22/21 02/22/21 insulin lispro 10 unit SUBCUT ACINSULIN 02/22/21 02/22/21 melatonin 5 mg PO HS PRN 02/22/21 02/22/21 metoclopramide HCl [Reglan] 10 mg PO ACHS PRN 02/22/21 02/22/21 Allergies Allergy/AdvReac Type Severity Reaction Status Date / Time clindamycin Allergy Unknown Nausea and Verified 05/27/21 09:32 Vomiting morphine Allergy Unknown Vomiting Verified 05/27/21 09:32 nitroglycerin Allergy Unknown Headache Verified 05/27/21 09:32 Penicillins Allergy Unknown Hives Verified 05/27/21 09:32 Review of Systems Review of Systems: All systems reviewed & are unremarkable except as noted in HPI and below PMFSH Past Medical History Medical History Anemia of chronic disease Cerebrovascular accident 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 Chronic obstructive pulmonary disease Congestive heart failure History of reduced ejection fraction with improvement in EF to 55% on most recent echo. Diastolic dysfunction also noted. 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 Depression with anxiety Diabetic peripheral neuropathy Dyslipidemia Essential hypertension Fibromyalgia Gastroesophageal reflux disease History of peptic ulcer Hypersomnia Insulin dependent type 2 diabetes mellitus Obstructive sleep apnea on CPAP Osteoarthritis Stage III chronic kidney disease Baseline creatinine ranges between 1.3 and 1.60. Vitamin D deficiency Surgical History Surgical History History of appendectomy History of cardiac catheterization (~07/2013) Normal coronaries although anomalous left coronary artery arising from the right ostium was noted. History of hysterectomy (~1979) History of left breast biopsy Benign pathology. Family History Family History Father Malignant neoplasm of prostate Heart disease
--- NOTE | 2021-05-27 17:59 | PM.IMHP ---
H&P: HPI History of Present Illness Date/Time: 05/27/21 17:59 Chief Complaint: dyspnea on exertion, cough Narrative: Patient is a 75-year-old female with a past medical history of COPD, CHF, CVA, fibromyalgia, type 2 diabetes, and sleep apnea who presented emergency room for cough and dyspnea on exertion. The patient states that she started coughing last week and is slowly getting worse. She is producing green phlegm which is abnormal for her. She has no shortness of breath at rest but does have some dyspnea on exertion and at rest if she is coughing. She also notices that she is wheezing and she is using her inhalers at home. She only takes the albuterol about 1 time a day but it does help. She denies fevers, chills, vomiting, diarrhea, constipation, chest pain, ear pain or rashes or wounds. she has been having rhinorrhea, hoarseness and weakness. she has been vaccinated for COVID. She has been around her caregiver who is also sick with pneumonia but has tested negative for COVID-19. She has no history of blood clots. She says she has felt weak for the last couple of years and this really has not changed. She can't walk long distances and uses a wheelchair to do so. She also has a walker as needed. She has chronic back pain and knee pain from osteoarthritis which prevents her from being very mobile. She had a stroke earlier this year and has some issues with swallowing and speech. She overall feels a bit better since being here in the hospital but still does not feel like she is at baseline. She has not had any antibiotics in the last couple months. Review of Systems Review of Systems: All systems reviewed & are unremarkable except as noted in HPI and below PMFSH Past Medical History Medical History Anemia of chronic disease Cerebrovascular accident 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 Chronic obstructive pulmonary disease Congestive heart failure History of reduced ejection fraction with improvement in EF to 55% on most recent echo. Diastolic dysfunction also noted. 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 Depression with anxiety Diabetic peripheral neuropathy Dyslipidemia Essential hypertension Fibromyalgia Gastroesophageal reflux disease History of peptic ulcer Hypersomnia Insulin dependent type 2 diabetes mellitus Obstructive sleep apnea on CPAP Osteoarthritis Stage III chronic kidney disease Baseline creatinine ranges between 1.3 and 1.60. Vitamin D deficiency Surgical History Surgical History History of appendectomy History of cardiac catheterization (~07/2013) Normal coronaries although anomalous left coronary artery arising from the right ostium was noted. History of hysterectomy (~1979) History of left breast biopsy Benign pathology. Family History Family History Father Malignant neoplasm of prostate Heart disease Mother Esophageal cancer Sibling Diabetes mellitus Daughter Alcoholism Social History Social History (Updated 05/27/21 @ 18:03 by Rosa Hinds PA-C) Social History: The patient is and lives With her daughter. 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 No alcohol or illicit substance abuse. She designates her daughter, Mikki Herrera, as her surrogate decision maker and she wishes to be a full code. Spiritual care concerns: No Meds Home Medications and Allergies Home Medications Medication Instructions Recorded Confirmed Type atorvastatin 80 mg tablet 80 mg PO DAILY 12/07/19 02/22/21 History ezetimibe 10
--- NOTE | 2021-05-27 18:06 | PC.NURSE ---
pt placed in recliner per pt request.
--- NOTE | 2021-05-27 19:08 | PC.NURSE ---
report to gerald holt
[2021-05-27 21:40] LABS: Glucose Point of Care 319 mg/dl (65-105)
[2021-05-27] MEDS: HYDROcodone/acetaminophen (*CRX) 10-325 MG TABLET 1 TAB PO (21:44)
--- NOTE | 2021-05-27 21:55 | PC.NURSE ---
novalog not given during morning shift.
--- NOTE | 2021-05-27 22:36 | PC.NURSE ---
This patient, Sarah Alvarado, was admitted to [facility] Surg Room 304-01. Patient/family oriented to hospital policies and general routines including ID bracelet, bed and alarms, visiting hours, pain management, procedures, bathroom and other care routines, personal items, smoking policy, room service/diet, and visiting hours. Information on how to activate the Rapid Response Team has been discussed. Patient/Family are encouraged to report perceived risks to care and to ask questions if they do not understand what they are told or what they should do.
[2021-05-27] MEDS: TOLNAFTATE 1% POWDER 45 GM BTL 1 APPLIC TOPICAL (22:42)
[2021-05-27] MEDS: FAMOTIDINE 20 MG/2 ML VIAL IV PUSH (22:43)
[2021-05-27] MEDS: GABAPENTIN 300 MG CAPSULE PO (22:43)
[2021-05-27] MEDS: methylPREDNISolone SOD SUCC 40 MG VIAL IV PUSH (22:44)
[2021-05-27] MEDS: INSULIN DETEMIR 100 UNITS/ML 30 UNITS SUB-Q (22:59)
[2021-05-28] VITALS (7 sets, daily range): BP systolic 148–158; BP diastolic 78–109; PULSE 62–83; RESP 16–20; TEMP 36–36.4; O2SAT 95–97
[2021-05-28] MEDS: methylPREDNISolone SOD SUCC 40 MG VIAL IV PUSH ×3 (06:22→22:12)
[2021-05-28 06:43] LABS: Hematocrit 35.9 % (37.0-47.0); Hemoglobin 11.3 g/dL (12.0-15.0); Immature Granulocyte Absolute 0.01 K/mm3 (0.00-0.031); Immature Granulocyte Percent A 0.4 % (0-0.5); Lymphocytes Absolute Auto 0.48 K/mm3 (0.9-3.2); Lymphocytes Percent Auto 18.1 % (18.3-44.2); Mean Corpuscular HGB Conc 31.5 g/dl (32-36); Mean Corpuscular Hemoglobin 31.4 pg (26-34); Mean Corpuscular Volume 99.7 fl (80-100); Mean Platelet Volume 10.1 fl (7.4-10.4); Monocytes Absolute Auto 0.1 K/mm3 (0.1-0.6); Monocytes Percent Auto 4.5 % (2.6-8.5); Platelet Count Result 184 k/mm3 (150-375); Red Cell Distribution Width 15.3 % (11.5-14.5); White Blood Count 2.7 K/mm3 (4.5-10.0)
[2021-05-28 06:51] LABS: Alanine Aminotransferase 25 U/L (4-35); Albumin Level 3.3 g/dL (3.5-5.1); Alkaline Phosphatase 55 U/L (38-126); Anion Gap 8 mmol/L (8-16); Aspartate Amino Transferase 40 U/L (14-36); Bilirubin,Total 0.4 mg/dL (0.2-1.3); Blood Urea Nitrogen 30 mg/dL (7-17); Carbon Dioxide 19 mmol/L (22-30); Chloride 110 mmol/L (98-107); Estimated CRCL calculation 38 ml/min; Estimated Glomerular Filt Rate 37; Glucose 224 mg/dL (65-110); Potassium 4.3 mmol/L (3.4-5.0); Sodium 137 mmol/L (137-145)
[2021-05-28] MEDS: INSULIN ASPART (*BKC) 100 UNITS/ML SUB-Q ×3 (07:58→18:37)
[2021-05-28] MEDS: carvediloL 25 MG TABLET PO (08:00)
[2021-05-28] MEDS: ATORVASTATIN 40 MG TABLET 80 MG PO (08:00)
[2021-05-28] MEDS: GABAPENTIN 300 MG CAPSULE PO ×3 (08:01→18:38)
[2021-05-28] MEDS: ENOXAPARIN 40 MG/0.4 ML SYRINGE SUB-Q (08:01)
[2021-05-28] MEDS: FAMOTIDINE 20 MG/2 ML VIAL IV PUSH ×2 (08:01→20:29)
[2021-05-28] MEDS: ASPIRIN 81 MG ENTERIC TABLET PO (08:01)
[2021-05-28] MEDS: FENOFIBRATE 160 MG TABLET PO (08:01)
[2021-05-28] MEDS: TOLNAFTATE 1% POWDER 45 GM BTL 1 APPLIC TOPICAL ×2 (08:02→22:31)
[2021-05-28] MEDS: IPRATROPIUM BR 0.02% INH SOLN 0.5 MG/2.5 ML VIAL INHALATION ×2 (08:56→14:28)
[2021-05-28] MEDS: ALBUTEROL SULFATE NEB 2.5 MG/0.5 ML INH 5 MG INHALATION ×2 (08:57→14:28)
[2021-05-28 09:09] LABS: Glucose Point of Care 214 mg/dl (65-105)
--- NOTE | 2021-05-28 11:11 | PCSTNOTE ---
Please refer to the Bedside Swallow Evaluation in the EMR. Please note, silent aspiration cannot be ruled out at bedside.
[2021-05-28 11:14] LABS: Influenza Control Positive
[2021-05-28] MEDS: HYDROcodone/acetaminophen (*CRX) 10-325 MG TABLET 1 TAB PO ×2 (12:34→22:15)
[2021-05-28 12:35] LABS: Glucose Point of Care 324 mg/dl (65-105)
--- NOTE | 2021-05-28 16:28 | PM.IMPN ---
Progress Note: A&P Assessment and Plan (1) Pneumonia: Code(s): J18.9 - Pneumonia, unspecified organism Status: Acute Assessment and Plan: Chest x-ray and symptoms concerning for pneumonia -continue ceftriaxone and azithromycin - since she is leukopenic with slightly elevated liver enzymes, I have checked for COVID-19 and influenza. Influenza is negative and COVID-19 is pending - will decrease steroids - continue nebulized treatments, patient request nebulizer at discharge (2) COPD exacerbation: Code(s): J44.1 - Chronic obstructive pulmonary disease with (acute) exacerbation Status: Acute Assessment and Plan: Due to above - continue steroids and antibiotics as well as nebulizer treatments (3) Insulin dependent type 2 diabetes mellitus: Code(s): E11.9 - Type 2 diabetes mellitus without complications; Z79.4 - [facility] (current) use of insulin Status: Acute Assessment and Plan: last glucose 324 -lantus and SSI increased and steroids decreased - A1c 7.5 in February of this year - she usually does 10 units of NovoLog with meals, Januvia, and glipizide. these will be placed on hold - will adjust as needed (4) Leukopenia: Code(s): D72.819 - Decreased white blood cell count, unspecified Status: Acute Assessment and Plan: she has a history of this in the past but could be due to viral/ acute illness - monitor (5) Stage III chronic kidney disease: Code(s): N18.3 - Chronic kidney disease, stage 3 (moderate) Status: Acute Assessment and Plan: currently at baseline - monitor daily labs (6) Congestive heart failure: Code(s): I50.9 - Heart failure, unspecified Status: Acute Assessment and Plan: she appears euvolemic and is eating and drinking well - continue carvedilol Subjective Date/time seen: 05/28/21 16:28 Interval history: Pt is a 75-year-old female here for COPD exacerbation. Patient was seen today and is feeling much better compared to yesterday. She said her cough and congestion is less and she is able to walk to the bathroom without significant shortness of breath. she states the breathing treatments helped her a lot and request a nebulizer at discharge. She has no chest pain, nausea, vomiting, fevers, chills or abdominal pain. Exam Narrative: Exam Narrative: General: obese patient resting comfortably in bed in no acute distress HEENT: Normocephalic, atraumatic, PERRL, Sclerae anicteric, oral mucosa moist. Neck: Supple Resp: slightly coarse breath sounds today but much better than yesterday. No cough on exam Heart: RRR Abd: Soft, nontender. No pain to palpation. Positive bowel sounds. Skin: Warm and dry. fungal infection in the skin folds Extremities: No swelling, erythema or pain to palpation Neuro: Alert and Oriented x4 . CN 2-12 intact. No focal neurological deficits. Objective Data Vital Signs Vital Signs: Vital Signs - 24 hr 05/27/21 16:34 05/27/21 16:53 05/27/21 17:02 Temperature Pulse Rate 81 81 87 Respiratory Rate 22 H 15 18 Blood Pressure Pulse Oximetry 05/27/21 17:12 05/27/21 18:17 05/27/21 18:30 Temperature Pulse Rate 77 74 76 Respiratory Rate 16 23 H 19 Blood Pressure 146/86 H Pulse Oximetry 98 05/27/21 18:31 05/27/21 18:45 05/27/21 18:55 Temperature Pulse Rate 97 98 98 Respiratory Rate 26 H 18 18 Blood Pressure 165/99 H 165/99 H Pulse Oximetry 05/27/21 19:36 05/27/21 20:39 05/27/21 20:49 Temperature Pulse Rate 84 75 98 Respiratory Rate 25 H 16 22 H Blood Pressure 152/83 H Pulse Oximetry 92 95 05/27/21 22:25 05/28/21 06:00 05/28/21 08:00 Temperature 97.5 F L 97.2 F L Pulse Rate 76 76 76 Respiratory Rate 16 16 Blood Pressure 165/96 H 158/109 H Pulse Oximetry 93 96 05/28/21 09:19 05/28/21 09:28 05/28/21 14:36 Temperature Pulse Rate 81 83 69 Respiratory Rate 18 16 18 Bloo
[2021-05-28 16:56] LABS: SARS-CoV-2 RNA PCR Positive
[2021-05-28] MEDS: INSULIN DETEMIR 100 UNITS/ML 45 UNITS SUB-Q (20:56)
[2021-05-28 21:55] LABS: Glucose Point of Care 313 mg/dl (65-105)
[2021-05-28 21:55] LABS: Glucose Point of Care 408 mg/dl (65-105)
[2021-05-28] MEDS: INSULIN ASPART (*BKC) 100 UNITS/ML 8 UNITS SUB-Q (21:59)
[2021-05-28] MEDS: MELATONIN 5 MG TABLET PO (23:28)
--- NOTE | 2021-05-28 23:30 | PCRCNOTE ---
Window of time for administration has passed. See next scheduled administration.
[2021-05-29] VITALS (13 sets, daily range): BP systolic 138–178; BP diastolic 77–86; PULSE 56–76; RESP 18–20; TEMP 36–36.6; O2SAT 92–100
[2021-05-29] MEDS: IPRATROPIUM BR 0.02% INH SOLN 0.5 MG/2.5 ML VIAL INHALATION ×3 (02:29→15:32)
[2021-05-29] MEDS: ALBUTEROL SULFATE NEB 2.5 MG/0.5 ML INH 5 MG INHALATION ×3 (02:29→15:31)
[2021-05-29 06:46] LABS: Hematocrit 33.8 % (37.0-47.0); Hemoglobin 10.7 g/dL (12.0-15.0); Immature Granulocyte Absolute 0.02 K/mm3 (0.00-0.031); Immature Granulocyte Percent A 0.5 % (0-0.5); Lymphocytes Absolute Auto 0.51 K/mm3 (0.9-3.2); Lymphocytes Percent Auto 13.6 % (18.3-44.2); Mean Corpuscular HGB Conc 31.7 g/dl (32-36); Mean Platelet Volume 10.1 fl (7.4-10.4); Monocytes Absolute Auto 0.2 K/mm3 (0.1-0.6); Monocytes Percent Auto 4.3 % (2.6-8.5); Neutrophils Absolute Auto 3.1 K/mm3 (1.3-6.7); Neutrophils Percent Auto 81.6 % (45.5-73.1); Platelet Count Result 211 k/mm3 (150-375); Red Blood Count 3.45 M/mm3 (4.2-5.4); Red Cell Distribution Width 15.2 % (11.5-14.5); White Blood Count 3.7 K/mm3 (4.5-10.0)
[2021-05-29 07:25] LABS: Anion Gap 8 mmol/L (8-16); Blood Urea Nitrogen 41 mg/dL (7-17); Calcium 8.1 mg/dL (8.4-10.2); Carbon Dioxide 22 mmol/L (22-30); Chloride 106 mmol/L (98-107); Estimated CRCL calculation 33 ml/min; Estimated Glomerular Filt Rate 32; Glucose 216 mg/dL (65-110); Potassium 4.6 mmol/L (3.4-5.0); Sodium 136 mmol/L (137-145)
[2021-05-29] MEDS: HYDROcodone/acetaminophen (*CRX) 10-325 MG TABLET 1 TAB PO ×3 (07:59→22:41)
[2021-05-29] MEDS: GABAPENTIN 300 MG CAPSULE PO ×3 (08:01→16:23)
[2021-05-29] MEDS: ATORVASTATIN 40 MG TABLET 80 MG PO (08:01)
[2021-05-29] MEDS: ENOXAPARIN 40 MG/0.4 ML SYRINGE SUB-Q ×2 (08:01→16:23)
[2021-05-29] MEDS: FAMOTIDINE 20 MG/2 ML VIAL IV PUSH ×2 (08:01→21:34)
[2021-05-29] MEDS: ASPIRIN 81 MG ENTERIC TABLET PO (08:01)
[2021-05-29] MEDS: carvediloL 25 MG TABLET PO (08:02)
[2021-05-29] MEDS: TOLNAFTATE 1% POWDER 45 GM BTL 1 APPLIC TOPICAL ×2 (08:03→21:38)
[2021-05-29] MEDS: FENOFIBRATE 160 MG TABLET PO (08:03)
[2021-05-29] MEDS: methylPREDNISolone SOD SUCC 40 MG VIAL IV PUSH (08:03)
[2021-05-29 08:38] LABS: Glucose Point of Care 197 mg/dl (65-105)
[2021-05-29] MEDS: DEXAMETHASONE SOD PHOS INJ 4 MG/ML VIAL 6 MG IV PUSH (09:37)
[2021-05-29] MEDS: INSULIN ASPART (*BKC) 100 UNITS/ML 7 UNITS SUB-Q ×2 (11:39→16:21)
[2021-05-29] MEDS: INSULIN ASPART (*BKC) 100 UNITS/ML SUB-Q ×2 (11:39→16:21)
[2021-05-29 11:55] LABS: Glucose Point of Care 257 mg/dl (65-105)
--- NOTE | 2021-05-29 14:34 | PM.IMPN ---
Progress Note: A&P Assessment and Plan (1) Pneumonia: Code(s): J18.9 - Pneumonia, unspecified organism Status: Acute Assessment and Plan: Chest x-ray and symptoms concerning for pneumonia and she is positive for COVID-19 - will switch Solu-Medrol to dexamethasone -continue ceftriaxone and azithromycin - she is fully vaccinated Pfizer vaccine which is likely why she has milder symptoms. will check IgG antibodies - patient is currently not requiring oxygen. If she does well with the decrease in steroids, she can likely go home tomorrow (2) COPD exacerbation: Code(s): J44.1 - Chronic obstructive pulmonary disease with (acute) exacerbation Status: Acute Assessment and Plan: Due to above - continue steroids and antibiotics (3) Insulin dependent type 2 diabetes mellitus: Code(s): E11.9 - Type 2 diabetes mellitus without complications; Z79.4 - USP (current) use of insulin Status: Acute Assessment and Plan: last glucose 257 but was increased last night - I have added scheduled insulin with meals as well as sliding scale insulin. Continue Levemir - A1c 7.5 in February of this year - she usually does 10 units of NovoLog with meals, Januvia, and glipizide. these will be placed on hold - will adjust as needed (4) Leukopenia: Code(s): D72.819 - Decreased white blood cell count, unspecified Status: Acute Assessment and Plan: due to COVID-19 (5) Stage III chronic kidney disease: Code(s): N18.3 - Chronic kidney disease, stage 3 (moderate) Status: Acute Assessment and Plan: currently at baseline - monitor daily labs (6) Congestive heart failure: Code(s): I50.9 - Heart failure, unspecified Status: Acute Assessment and Plan: she appears euvolemic and is eating and drinking well - continue carvedilol (7) Pneumonia due to COVID-19 virus: Code(s): U07.1 - COVID-19; J12.82 - Pneumonia due to coronavirus disease 2019 Status: Acute Assessment and Plan: as above Time Spent With Patient Time with patient: 25 - 35 minutes Subjective Date/time seen: 05/29/21 14:34 Interval history: Pt is a 75-year-old female here for COVID-19. Patient was seen today and states she is feeling better although she still feels weak. Her wheezing and congestion has improved and she is able to breathe easier. She is not requiring oxygen at this time. she feels weak but is close to her baseline as she has osteoarthritis and fibromyalgia. she found out that her on vaccinated caregiver also has no and that is probably where she got it from. She denies chest pain, abdominal pain, diarrhea or constipation. Review of Systems Review of Systems: All systems reviewed & are unremarkable except as noted in HPI and below Exam Narrative: Exam Narrative: General: obese patient resting comfortably in bed in no acute distress HEENT: Normocephalic, atraumatic, PERRL, Sclerae anicteric, oral mucosa moist. Neck: Supple Resp: Were clear today with no wheezing. No cough on exam Heart: RRR Abd: Soft, nontender. No pain to palpation. Positive bowel sounds. Skin: Warm and dry. fungal infection in the skin folds Extremities: No swelling, erythema or pain to palpation Neuro: Alert and Oriented x4 . CN 2-12 intact. No focal neurological deficits. Objective Data Vital Signs Vital Signs: Vital Signs - 24 hr 05/28/21 14:36 05/28/21 22:00 05/29/21 00:00 Temperature 97.5 F L 97.2 F L Pulse Rate 69 67 61 Respiratory Rate 18 18 18 Blood Pressure 148/80 H 163/85 H Pulse Oximetry 95 94 05/29/21 02:30 05/29/21 02:41 05/29/21 04:00 Temperature 97.6 F Pulse Rate 76 68 57 L Respiratory Rate 18 18 18 Blood Pressure 164/84 H Pulse Oximetry 93 05/29/21 08:00 05/29/21 08:02 05/29/21 09:10 Temperature 97.8 F Pulse Rate 56 L 62 65 Respiratory Rate 18 20 Blood Pressure 178/84 H
[2021-05-29 16:01] LABS: Glucose Point of Care 333 mg/dl (65-105)
[2021-05-29 16:29] LABS: SARS-CoV-2 IgG Reactive (NonReactive)
[2021-05-29] MEDS: INSULIN DETEMIR 100 UNITS/ML 45 UNITS SUB-Q (21:35)
[2021-05-29] MEDS: MELATONIN 5 MG TABLET PO (21:35)
[2021-05-29 22:54] LABS: Glucose Point of Care 308 mg/dl (65-105)
[2021-05-30] VITALS (12 sets, daily range): BP systolic 136–179; BP diastolic 68–98; PULSE 54–74; RESP 16–20; TEMP 36.1–36.7; O2SAT 96–97
[2021-05-30] MEDS: ALBUTEROL SULFATE NEB 2.5 MG/0.5 ML INH 5 MG INHALATION ×3 (03:53→14:29)
[2021-05-30] MEDS: IPRATROPIUM BR 0.02% INH SOLN 0.5 MG/2.5 ML VIAL INHALATION ×3 (03:54→14:29)
[2021-05-30 06:14] LABS: Hematocrit 35.1 % (37.0-47.0); Hemoglobin 10.8 g/dL (12.0-15.0); Mean Corpuscular HGB Conc 30.8 g/dl (32-36); Mean Corpuscular Hemoglobin 30.2 pg (26-34); Mean Platelet Volume 9.9 fl (7.4-10.4); Platelet Count Result 204 k/mm3 (150-375); Red Blood Count 3.58 M/mm3 (4.2-5.4); Red Cell Distribution Width 15.1 % (11.5-14.5); White Blood Count 4.9 K/mm3 (4.5-10.0)
[2021-05-30] MEDS: HYDROcodone/acetaminophen (*CRX) 10-325 MG TABLET 1 TAB PO (06:23)
[2021-05-30 06:40] LABS: Alanine Aminotransferase 21 U/L (4-35); Albumin Level 2.9 g/dL (3.5-5.1); Alkaline Phosphatase 66 U/L (38-126); Anion Gap 6 mmol/L (8-16); Aspartate Amino Transferase 28 U/L (14-36); Bilirubin,Total 0.4 mg/dL (0.2-1.3); Blood Urea Nitrogen 45 mg/dL (7-17); Calcium 8.1 mg/dL (8.4-10.2); Carbon Dioxide 24 mmol/L (22-30); Chloride 108 mmol/L (98-107); Estimated CRCL calculation 33 ml/min; Estimated Glomerular Filt Rate 32; Glucose 174 mg/dL (65-110); Potassium 4.4 mmol/L (3.4-5.0); Sodium 138 mmol/L (137-145)
[2021-05-30 06:51] LABS: Glucose Point of Care 146 mg/dl (65-105)
[2021-05-30 08:14] LABS: Glucose Point of Care 128 mg/dl (65-105)
--- NOTE | 2021-05-30 09:54 | PM.DS ---
DS: Admitting Diagnosis Admitting Diagnosis PNA DS: Discharge Diagnosis Discharge Diagnosis (1) Pneumonia: Code(s): J18.9 - Pneumonia, unspecified organism Status: Acute Assessment and Plan: Chest x-ray and symptoms concerning for pneumonia and she is positive for COVID-19 - she was given dexamethasone and abx at discharge and recieved ceftriaxone and azithromycin while hospitalized. - she is fully vaccinated Pfizer vaccine with +igG which is likely why she has milder symptoms. - patient is currently not requiring oxygen. 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 Status: Acute Assessment and Plan: last glucose 206 -Continue home regimen, educated pt that glucose may be increased due to steroids - A1c 7.5 in February of this year (4) Leukopenia: Code(s): D72.819 - Decreased white blood cell count, unspecified Status: Acute Assessment and Plan: due to COVID-19 (5) Stage III chronic kidney disease: Code(s): N18.3 - Chronic kidney disease, stage 3 (moderate) Status: Acute Assessment and Plan: currently at baseline - monitor daily labs (6) Congestive heart failure: Code(s): I50.9 - Heart failure, unspecified Status: Acute Assessment and Plan: she appears euvolemic and is eating and drinking well - continue carvedilol (7) Pneumonia due to COVID-19 virus: Code(s): U07.1 - COVID-19; J12.82 - Pneumonia due to coronavirus disease 2019 Status: Acute Assessment and Plan: as above DS: Summary Hospital Course Hospital Course: Patient is a 75-year-old female with a past medical history of COPD, CHF, CVA, fibromyalgia, type 2 diabetes, and sleep apnea who presented emergency room for cough and dyspnea on exertion. The patient states that she started coughing last week and is slowly getting worse. She is producing green phlegm which is abnormal for her. She has no shortness of breath at rest but does have some dyspnea on exertion and at rest if she is coughing. She also notices that she is wheezing and she is using her inhalers at home. She only takes the albuterol about 1 time a day but it does help. She denies fevers, chills, vomiting, diarrhea, constipation, chest pain, ear pain or rashes or wounds. she has been having rhinorrhea, hoarseness and weakness. she has been vaccinated for COVID. She has been around her caregiver who is also sick with pneumonia but has tested negative for COVID-19. She has no history of blood clots. She says she has felt weak for the last couple of years and this really has not changed. She can't walk long distances and uses a wheelchair to do so at baseline. She also has a walker as needed. She has chronic back pain and knee pain from osteoarthritis which prevents her from being very mobile. Pt was found to have a COPD exacerbation and PNA. She was started on abx and IV steroids and was admitted to the hospital service. She improved with this treatment but continued to be leukopenic so a COVID and influenza test was performed and although being vaccinated against COVID, she was positive for COVID. She never required O2 during her stay and her wheezing improved with the steroids with o2 sat 97% at d/c. The day of discharge she felt better but had some nausea before discharged. She was given zofran and did well and felt much better and was given an Rx at d/c. She was educated about the worrisome signs and symptoms to come back to the ER for as well as quarantine guidelines and was discharged in stable condition. Please see
[2021-05-30] MEDS: INSULIN ASPART (*BKC) 100 UNITS/ML 7 UNITS SUB-Q ×2 (10:07→12:25)
[2021-05-30] MEDS: FENOFIBRATE 160 MG TABLET PO (10:08)
[2021-05-30] MEDS: amLODIPine BESYLATE 5 MG TABLET PO (10:08)
[2021-05-30] MEDS: carvediloL 25 MG TABLET PO (10:09)
[2021-05-30] MEDS: ASPIRIN 81 MG ENTERIC TABLET PO (10:09)
[2021-05-30] MEDS: ATORVASTATIN 40 MG TABLET 80 MG PO (10:09)
[2021-05-30] MEDS: ENOXAPARIN 40 MG/0.4 ML SYRINGE SUB-Q (10:09)
[2021-05-30] MEDS: GABAPENTIN 300 MG CAPSULE PO ×2 (10:09→12:25)
[2021-05-30] MEDS: FAMOTIDINE 20 MG/2 ML VIAL IV PUSH (10:09)
[2021-05-30] MEDS: DEXAMETHASONE SOD PHOS INJ 4 MG/ML VIAL 6 MG IV PUSH (10:10)
[2021-05-30] MEDS: TOLNAFTATE 1% POWDER 45 GM BTL 1 APPLIC TOPICAL (10:10)
[2021-05-30 11:50] LABS: Glucose Point of Care 206 mg/dl (65-105)
[2021-05-30] MEDS: ONDANSETRON INJ 4 MG/2 ML VIAL IV PUSH (12:25)
[2021-05-30] MEDS: INSULIN ASPART (*BKC) 100 UNITS/ML SUB-Q (12:26)
== END 2021-05-30 16:25 | disposition home or self-care (01) | DRG 177 ==
LOC: ANHED 12:11 → ANH3MEDSUR 14:25
PROVIDERS: Emergency Medicine Emergency Medical Services; Physician Assistant; Admitting Provider Internal Medicine; Emergency Provider Emergency Medicine; PCP Family Medicine; Visit Provider Family Medicine
DX: U07.1 COVID-19 (principal); J12.82 Pneumonia due to coronavirus disease 2019; I13.0 Hypertensive heart and chronic kidney disease with heart failure and stage 1 through stage 4 chronic kidney disease, or unspecified chronic kidney disease; I50.32 Chronic diastolic (congestive) heart failure; J44.1 Chronic obstructive pulmonary disease with (acute) exacerbation; Z86.73 Personal history of transient ischemic attack (TIA), and cerebral infarction without residual deficits; N18.30 Chronic kidney disease, stage 3 unspecified; E11.22 Type 2 diabetes mellitus with diabetic chronic kidney disease; K21.9 Gastro-esophageal reflux disease without esophagitis; M79.7 Fibromyalgia; Z79.4 Long term (current) use of insulin
CPT/HCPCS: 36415; 36600; 71046; 80048; 80053; 80076; 82375; 82805; 82948; 83050; 83690; 85025; 85027; 86413; 86769; 87040; 87804; 92610; 93005; 94640; 96365; 96366; 96367; 96372; 96375; 96376; 97110; 97116; 97161; 97165; 97530; 99285; A9270; C9803; G0378; J0131; J0456; J0696; J1100; J1650; J1815; J2405; J2920; J2930; U0003; U0005

== ENCOUNTER → 2021-06-19 03:47 | Outpatient (CLI) | payer MEDICARE, MEDICAID, SELFPAY ==
[2021-06-20 01:38] LABS: SARS-CoV-2 RNA PCR Positive
== END ==
PROVIDERS: PCP Family Medicine; Visit Provider Family Medicine
DX: U07.1 COVID-19 (principal)
CPT/HCPCS: C9803; U0003; U0005

== ENCOUNTER → 2021-07-02 09:29 | Outpatient (CLI) | payer MEDICARE, MEDICAID, SELFPAY ==
[2021-07-02 20:01] LABS: SARS-CoV-2 RNA PCR Negative
== END ==
PROVIDERS: PCP Family Medicine; Visit Provider Family Medicine
DX: R68.89 Other general symptoms and signs (principal); Z20.822 Contact with and (suspected) exposure to COVID-19
CPT/HCPCS: C9803; U0003; U0005

== ENCOUNTER 2021-07-22 04:56 | Inpatient (IN) | payer MEDICARE, MEDICAID, SELFPAY ==
[2021-07-22] VITALS (42 sets, daily range): BP systolic 70–188; BP diastolic 38–126; PULSE 69–150; RESP 16–35; TEMP 36.4–36.7; O2SAT 88–100; BMI 37.3
--- NOTE | ~2021-07-22 | US_ITS ---
EXAMINATION: US renal BI DATE: 07/23/2021 11:01 INDICATION: Acute renal injury. TECHNIQUE: Multiple ultrasound grayscale images of the kidneys were obtained. COMPARISON: CT abdomen and pelvis dated 05/18/2018 FINDINGS: The right kidney measures 10.5 x 5.3 x 5.5 cm. The left kidney measures 10.2 x 5.5 x 5.8 cm. The kidn eys demonstrate normal echogenicity with relatively symmetric mild likely age-related cortical atroph y. Chronic 4.0 cm cyst at the interpolar region of the right kidney. There is no hydronephrosis in ei ther kidney. No shadowing renal stones identified. Incidentally noted is a shadowing gallstone at th e neck of the otherwise normal-appearing gallbladder. The bladder is nonvisualized likely decompresse d with a reported Hernandez catheter in place. IMPRESSION: 1. Bilateral renal cortical atrophy and 4.0 cm right renal cyst. No hydronephrosis. Reviewed, dictated and finalized at location A. IMPRESSION: 1. Bilateral renal cortical atrophy and 4.0 cm right renal cyst. No hydronephr osis.
--- NOTE | ~2021-07-22 | CT_ITS ---
EXAMINATION: CT brain wo con EXAM DATE: 07/22/2021 11:58 INDICATION: Unresponsiveness . Respiratory failure. TECHNIQUE: Spiral CT of the head was performed without contrast. Axial, coronal and sagittal images were reviewed. The dose-length product (DLP) for this examination was 832.33 mGy-cm. The exposure w as tailored according to patient size, and iterative reconstruction (ASIR) was used as additional dos e reduction technique. Comparison is made to prior examination from 02/22/2021. FINDINGS: There is no acute intraparenchymal hemorrhage. No evidence of intraparenchymal brain mass lesion. No evidence of acute infarction. Please note that initial head CT has limited sensitivity f or small or acute infarctions. Old left basal ganglia/anterior limb internal capsular lacunar infarc tion. Old right caudate head lacunar infarction. There is mild periventricular and subcortical hypode nsity, nonspecific but probably related to small vessel ischemic disease. There is mild prominence of the sulci and ventricles related to cerebral atrophy. There is intracranial carotid arteriosclero sis. There are no extra-axial collections. There is no mass effect or midline shift. Patient has h ad left-sided ocular lens surgery. Soft tissue is unremarkable. The visualized sinuses and mastoid air cells are well aerated. IMPRESSION: 1. No acute intracranial findings. 2. Old lacunar infarctions. Reviewed, dictated and finalized at location B.
--- NOTE | ~2021-07-22 | XR_ITS ---
EXAMINATION: XR chest port-a-cath/central INDICATION: Central line insertion TECHNIQUE: Portable AP chest at 1444 hours COMPARISON: 0515 hours FINDINGS: A right internal jugular central venous catheter is been inserted which ends with its tip a t the superior cavoatrial junction. There is no pneumothorax. There are patchy opacities of the mid a nd lower lung zones. Small left pleural effusion is suggested. The endotracheal tube ends 3.9 cm abov e the matilde. The nasogastric tube is followed as far as the stomach. Its tip is beyond the inferior margin of the radiograph. IMPRESSION: 1. Right internal jugular central venous catheter insertion ending at the superior cavoatrial junctio n, otherwise no change. Reviewed, dictated and finalized at location A. IMPRESSION: 1. Right internal jugular central venous catheter insertion ending at the super ior cavoatrial junction, otherwise no change.
--- NOTE | ~2021-07-22 | CT_ITS ---
EXAMINATION: CT soft tissue neck wo con EXAM DATE: 07/22/2021 11:59 INDICATION: anaphylaxis TECHNIQUE: Spiral CT of the neck was performed without contrast. Axial, coronal and sagittal images were reviewed. The dose-length product (DLP) for this examination was 584.88 mGy-cm. The exposure was tailored according to patient size (auto mA exposure control), and iterative reconstruction (ASIR ) was used as additional dose reduction technique. There is no prior study for comparison. FINDINGS: There is ill-defined left upper lobe airspace disease most consistent with pneumonia. Endot jun tube is in position. There is a nasogastric tube. Peripherally calcified left thyroid lobe n odule measuring 1.2 cm likely benign. The submandibular and parotid glands are symmetric. There is no cervical lymphadenopathy. There are no masses identified. Mildly enlarged precarinal lymph no de measuring 1.4 x 1.1 cm, likely reactive. Pharynx is collapsed around the nasogastric and endotrac heal tubes at time of imaging. There is fluid in the dependent aspect of the nasopharynx above this. Parapharyngeal and pre-glottic fat planes are preserved. Limited evaluation of cervical vessels on this noncontrast study. The orbits are unremarkable. Visualized sinuses and mastoid air cells ar e well aerated. There is severe left-sided upper cervical facet arthropathy, moderate lower cervi ajnie disc disease. IMPRESSION: 1. ET tube in position. Pharynx collapsed around ET and NG tubes. Nasopharyngeal fluid above this. 2. No cervical abscess or lymphadenopathy. 3. Pneumonia. Reviewed, dictated and finalized at location B. IMPRESSION: 1. ET tube in position. Pharynx collapsed around ET and NG tubes. Nasopharyng eal fluid above this. 2. No cervical abscess or lymphadenopathy. 3. Pneumonia.
--- NOTE | ~2021-07-22 | XR_ITS ---
EXAMINATION: XR abdomen NG/feed tube insert EXAM DATE: 07/22/2021 09:18 INDICATION: Feeding tube insertion. TECHNIQUE: Frontal projection(s) of the abdomen for interpretation. Correlation is made to chest x-ra y obtained same time. FINDINGS: Nonobstructive upper abdominal bowel gas pattern. Feeding tube tip projects over epigastric region,, side-port at the gastroesophageal junction. Could be safely advanced 5 cm. Several peripher ally calcified gallstones. Mild lumbar dextroscoliosis and moderate spondylosis. IMPRESSION: 1. Tube tip in stomach, but could be safely advanced 5 cm. Reviewed, dictated and finalized at location B.
--- NOTE | ~2021-07-22 | XR_ITS ---
EXAMINATION: XR chest 1V portable INDICATION: Acute respiratory failure TECHNIQUE: Portable AP chest at 0511 hours COMPARISON: 07/24/2021 FINDINGS: The endotracheal and nasogastric tubes have been removed. A right internal jugular central venous catheter ends with its tip at the superior cavoatrial junction. Patchy opacities of the lung b ases and left midlung zone persist but have improved. There is a small left pleural effusion. No pneu mothorax is identified. Cardiomegaly is noted. IMPRESSION: 1. Stable airspace opacities of the lung bases and left midlung zone, consistent with pneumonia. 2. Small pleural effusions. 3. Cardiomegaly. 4. Endotracheal and nasogastric tube removal. Reviewed, dictated and finalized at location A. IMPRESSION: 1. Stable airspace opacities of the lung bases and left midlung zone, consisten t with pneumonia. 2. Small pleural effusions. 3. Cardiomegaly. 4. Endotracheal and nasogastric tube removal.
--- NOTE | ~2021-07-22 | XR_ITS ---
EXAMINATION: XR chest 1V portable DATE: 07/30/2021 05:58 INDICATION: Shortness of breath. Pneumonia. TECHNIQUE: A single frontal view of the chest was obtained. COMPARISON: Chest 2 views 07/27/2021 FINDINGS: There are mild airspace opacities in the mid and lower lung zones. No pleural effusion or p neumothorax. The heart size is normal. IMPRESSION: 1. Stable mild airspace opacities in the mid and lower lung zones, consistent with pneumonia. Reviewed, dictated and finalized at location A. IMPRESSION: 1. Stable mild airspace opacities in the mid and lower lung zones, consistent w ith pneumonia.
--- NOTE | ~2021-07-22 | CT_ITS ---
EXAMINATION: CTA chest PE protocol DATE: 07/22/2021 06:28 INDICATION: COPD and COVID presenting with cough and shortness of breath TECHNIQUE: Computed tomography (CT) pulmonary angiogram of the chest was performed with 100 mL Omnipa que-350 intravenous contrast. Additional 3D reconstructions utilizing coronal maximum intensity proje ction (MIP) were performed. Automated exposure control and iterative reconstruction technique were em ployed. The dose-length product was 890.64 mGy-cm. COMPARISON: None FINDINGS: Excellent contrast opacification of the pulmonary arteries. There is moderate streak artifact from de nse contrast in the superior vena cava and right atrium. Mild to moderate scattered respiratory motio n artifact. Overall this decreases sensitivity in some of the smaller subsegmental pulmonary arteries particularly at the lung bases. No pulmonary embolism. Mild emphysema. Small region of consolidation in the posterior segment of the left upper lobe consistent with pneumonia. Additional catheter bilat eral regions of small central lobular nodules and groundglass opacities, in places with tree-in-bud p attern consistent additional endobronchial spread of pneumonia. Pattern would favor technique acquire d pneumonia over COVID pneumonia. No pleural effusion or pneumothorax. Mild cardiomegaly. No pericard ial effusion. Atherosclerotic coronary artery calcification. Mild enlargement of the central pulmonar y arteries consistent with pulmonary arterial hypertension. Atherosclerotic calcific lesion along the aorta and many of its major branch vessels. No dissection. Mild mediastinal and bilateral hilar lymp hadenopathy which is likely reactive. A few calcified gallstones in the otherwise normal gallbladder. There is symmetric. The visualized upper poles of the kidneys, mild on the left and moderate on the right. Mild thoracic levocurvature with mild spondylosis. IMPRESSION: 1. No pulmonary embolism. Sensitivity mildly decreased by motion artifact in some of the smaller subs egmental pulmonary arteries. 2. Bilateral lung disease with pattern of endobronchial spread favoring community-acquired pneumonia. 3. Mild emphysema with mild enlargement of the central pulmonary arteries consistent with pulmonary a rterial hypertension. 4. Cardiomegaly. 5. Likely reactive mild mediastinal and bilateral hilar lymphadenopathy. Reviewed, dictated and finalized at location A. IMPRESSION: 1. No pulmonary embolism. Sensitivity mildly decreased by motion artifact in so me of the smaller subsegmental pulmonary arteries. 2. Bilateral lung disease with pattern of endobronchial spread favoring communi ty-acquired pneumonia. 3. Mild emphysema with mild enlargement of the central pulmonary arteries consi stent with pulmonary arterial hypertension. 4. Cardiomegaly. 5. Likely reactive mild mediastinal and bilateral hilar lymphadenopathy.
--- NOTE | ~2021-07-22 | XR_ITS ---
EXAMINATION: XR chest 1V portable DATE: 07/23/2021 05:44 INDICATION: Acute respiratory failure. Pneumonia. TECHNIQUE: frontal view of the chest was obtained. COMPARISON: Chest radiograph dated 07/22/2021 FINDINGS: Endotracheal tube tip 2.7 cm above the matilde. There is prominent widening of the trachea at the leve l of the bulb of the endotracheal tube. Nasogastric tube extends below the left hemidiaphragm with d istal tip collimated off the study. Lung volumes are decreased. New airspace opacities throughout the right lung and in the left mid and lower lung zones. Cardiomegaly. Tortuous thoracic aorta. Enlargement of the central pulmonary arterie s consistent with pulmonary arterial hypertension. IMPRESSION: 1. Endotracheal tube and nasogastric tube in expected positions. The bulb with endotracheal tube sign ificantly distends the trachea and would consider decreasing amount of gas distention to minimize the risk of developing secondary tracheomalacia which can occur in response to chronic overdistention. 2. New airspace opacities throughout both lungs consistent with multifocal pneumonia. 3. Cardiomegaly. Reviewed, dictated and finalized at location A. IMPRESSION: 1. Endotracheal tube and nasogastric tube in expected positions. The bulb with endotracheal tube significantly distends the trachea and would consider decreas ing amount of gas distention to minimize the risk of developing secondary trach eomalacia which can occur in response to chronic overdistention. 2. New airspace opacities throughout both lungs consistent with multifocal pneu monia. 3. Cardiomegaly.
--- NOTE | ~2021-07-22 | XR_ITS ---
EXAMINATION: XR chest 1V portable DATE: 07/24/2021 06:51 INDICATION: Acute respiratory failure. Pneumonia. Intubated. TECHNIQUE: frontal view of the chest was obtained. COMPARISON: Chest radiograph dated 07/23/2021 FINDINGS: Endotracheal tube tip 3.0 cm above the matilde. Nasogastric tube extends below the left hemidiaphragm with distal tip collimated off the study. Right internal jugular central venous catheter with distal tip to the superior cavoatrial junction. Cancer airspace opacities in the left mid and bilateral lower lung zones. Likely small left pleural e ffusion. No pneumothorax. Megaly. Enlargement of the central pulmonary arteries consistent with pulmo nary arterial hypertension. IMPRESSION: 1. Unchanged airspace opacity in the left mid and bilateral lower lung zones consistent with pneumoni a. 2. Likely small left pleural effusion. Reviewed, dictated and finalized at location A. IMPRESSION: 1. Unchanged airspace opacity in the left mid and bilateral lower lung zones co nsistent with pneumonia. 2. Likely small left pleural effusion.
--- NOTE | ~2021-07-22 | XR_ITS ---
EXAMINATION: XR chest ET placement EXAM DATE: 07/22/2021 09:18 INDICATION: acute sob. Respiratory failure. TECHNIQUE: Portable AP frontal chest x-ray was obtained. Comparison is made to prior examination from 07/22/2021. FINDINGS: Endotracheal tube tip is 4 centimeters above the matilde. There is a nasogastric tube seen with tip collimated off the study, but below the left hemidiaphragm. Lungs are hyperinflated. Patchy small ill-defined regions of pneumonia . There are no sizable pleura l effusions. There is no pneumothorax suspected. The cardiomediastinal silhouette is prominent bu t magnified on this AP technique. The bones and soft tissues are unremarkable. There is no significant interval change compared to prior exam. IMPRESSION: 1. Tubes in position. 2. Scattered ill-defined regions of pneumonia Reviewed, dictated and finalized at location B.
--- NOTE | ~2021-07-22 | XR_ITS ---
EXAMINATION: XR chest 2V DATE: 07/27/2021 09:02 INDICATION: Pneumonia. Shortness of breath. TECHNIQUE: Frontal and lateral views of the chest were obtained. COMPARISON: Chest single view 07/25/2021, chest CT 07/22/2021 FINDINGS: There are patchy airspace opacities in the mid and lower lung zones. There is a small left pleural effusion. No pneumothorax. The heart size is normal. A right internal jugular central venous catheter is seen with tip at the superior cavoatrial junction. IMPRESSION: 1. Stable airspace opacities in the mid and lower lung zones, consistent with pneumonia. 2. Stable small left pleural effusion. Reviewed, dictated and finalized at location A. IMPRESSION: 1. Stable airspace opacities in the mid and lower lung zones, consistent with p neumonia. 2. Stable small left pleural effusion.
--- NOTE | ~2021-07-22 | XR_ITS ---
EXAMINATION: XR chest 1V portable DATE: 07/22/2021 06:35 INDICATION: Dyspnea TECHNIQUE: frontal view of the chest was obtained. COMPARISON: Chest radiograph dated 05/27/[address] dated 07/22/2021 FINDINGS: Focal airspace opacity in the left midlung zone with more subtle opacities throughout the right mid t o lower and left lower lung zones consistent with pneumonia. No pleural effusion or pneumothorax. Bor derline heart size accounting for AP technique. IMPRESSION: 1. Opacities in the bilateral mid and lower lung zones consistent with pneumonia. Appearance on CT fa vors community-acquired over COVID. Reviewed, dictated and finalized at location A. IMPRESSION: 1. Opacities in the bilateral mid and lower lung zones consistent with pneumoni a. Appearance on CT favors community-acquired over COVID.
--- NOTE | 2021-07-22 05:00 | ED.SOB ---
HPI - SOB/Dyspnea General Chief Complaint: Shortness of Breath/Dyspnea Stated Complaint: SOB AND WEAKNESS Time Seen by Provider: 07/22/21 05:00 Source: patient and EMS Mode of arrival: EMS Limitations: no limitations History of Present Illness HPI Narrative: The patient is a 75-year-old female with a past medical history of COPD, CHF, CVA, fibromyalgia, type 2 diabetes, sleep apnea, who presents to the ED via EMS for evaluation of dyspnea. Patient states that she felt acutely short of breath after waking up this morning to go to the bathroom. Patient reports productive cough, and wheezing. She denies fever or chills. She reports feeling generally weak without focal weakness or numbness. Because the patient was so short of breath and weak, EMS was called, at the time of arrival patient was hypoglycemic. Patient was given oral glucose with improvement. Patient was noted to be hypoxic to 85% on room air per EMS, no history of home oxygen, thus she was placed on 4 L and transported to our facility. At the time of my assessment, patient is denying any chest or abdominal pain. She does report cough and shortness of breath. Patient states she had history of Covid infection in May for which she was minimally symptomatic. Initially she was diagnosed with bronchitis but because she was leukopenic per chart review, Covid swab was performed and was positive. Positive swab was May 28. Patient is vaccinated with Pfizer vaccine. Patient otherwise recovered uneventfully. Related Data Home Medications Medication Instructions Recorded Confirmed ezetimibe 10 mg tablet 10 mg PO DAILY 12/07/19 07/21/21 fenofibrate 160 mg tablet 160 mg PO DAILY 12/07/19 07/21/21 furosemide 20 mg tablet 20 mg PO EVERY OTHER DAY PRN 12/07/19 07/21/21 tablet gabapentin 300 mg capsule 300 mg PO TID 12/07/19 07/21/21 Levemir U-100 Insulin 40 unit SUBCUT HS 02/22/21 07/21/21 ergocalciferol (vitamin D2) 1,250 mcg PO WEEKLY 02/22/21 07/21/21 glipizide 10 mg PO BID 02/22/21 07/21/21 insulin aspart U-100 [Novolog unit SUBCUT TID 05/28/21 07/21/21 U-100 Insulin aspart] metoprolol succinate 25 mg 25 mg PO DAILY 07/21/21 07/21/21 tablet,extended release 24 hr diphenoxylate-atropine 2 tablet PO QID PRN 07/22/21 07/22/21 sitagliptin [Januvia] 100 mg PO DAILY 07/22/21 07/22/21 Allergies Allergy/AdvReac Type Severity Reaction Status Date / Time clindamycin Allergy Unknown Nausea and Verified 07/22/21 05:45 Vomiting morphine Allergy Unknown Vomiting Verified 07/22/21 05:45 nitroglycerin Allergy Unknown Headache Verified 07/22/21 05:45 Penicillins Allergy Unknown Hives Verified 07/22/21 05:45 Review of Systems Review of Systems: CONSTITUTIONAL: Denies fever, chills, or sweats. EYES: Denies visual changes, redness, or discharge. ENT: Denies rhinorrhea, reports congestion and sore throat CARDIOVASCULAR: Denies chest pain, palpitations, or edema. RESPIRATORY: Reports cough and shortness of breath GASTROINTESTINAL: Denies abdominal pain, nausea, vomiting, or diarrhea. GENITOURINARY: Denies dysuria or hematuria. SKIN: Denies rash or itching. MUSCULOSKELETAL: Denies back pain, joint pain, or myalgia. NEUROLOGIC: Denies headache, numbness, reports feeling generally weak PMFSH Past Medical History Medical History Anemia of chronic disease Cerebrovascular accident 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 Chronic obstructive pulmonary disease Congestive heart failure History of reduced ejection fraction with improvement in EF to 55% on most recent echo. Diastolic dysfunction also noted. 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 Depression with anxiety Diabetic peripheral neuropathy Dyslipidemia Essential hypertension Fibromyalgia Gastroesophageal ref
--- NOTE | 2021-07-22 05:09 | ECG_ITS ---
Measurements Intervals [place] Rate: 92 P: [place]: 0 QRS: -49 QRSD: 142 T: 76 QT: 370 QTc: 459 Interpretive Statements ATRIAL FIBRILLATION CHANGES TO SINUS RHYTHM LEFT AXIS DEVIATION LEFT BUNDLE BRANCH BLOCK ABNORMAL ECG Electronically Signed On 07-22-2021 7:00:00 CDT by Chau Vega D.O.
[2021-07-22 05:15] LABS: Glucose Point of Care 118 mg/dl (65-105)
[2021-07-22] MEDS: methylPREDNISolone SOD SUCC 125 MG VIAL IV PUSH (05:31)
[2021-07-22] MEDS: SODIUM CHLORIDE 0.9% IV 500 ML 999 ML IV CONT (05:31)
[2021-07-22] MEDS: MAGNESIUM SULF 2 GM/WATER 50ML 2 GM/50 ML BAG IVPB (05:32)
[2021-07-22 05:33] LABS: Basophils Percent Auto 0.3 % (0.2-1.2); Eosinophils Percent Auto 0.5 % (0-4.4); Hematocrit 40.3 % (37.0-47.0); Hemoglobin 12.3 g/dL (12.0-15.0); Immature Granulocyte Absolute 0.02 K/mm3 (0.00-0.031); Immature Granulocyte Percent A 0.3 % (0-0.5); Lymphocytes Absolute Auto 0.57 K/mm3 (0.9-3.2); Mean Corpuscular HGB Conc 30.5 g/dl (32-36); Mean Corpuscular Hemoglobin 30.9 pg (26-34); Mean Corpuscular Volume 101.3 fl (80-100); Mean Platelet Volume 10.4 fl (7.4-10.4); Monocytes Absolute Auto 0.3 K/mm3 (0.1-0.6); Monocytes Percent Auto 4.4 % (2.6-8.5); Neutrophils Absolute Auto 5.4 K/mm3 (1.3-6.7); Neutrophils Percent Auto 85.5 % (45.5-73.1); Platelet Count Result 194 k/mm3 (150-375); Red Blood Count 3.98 M/mm3 (4.2-5.4); Red Cell Distribution Width 16.3 % (11.5-14.5); White Blood Count 6.3 K/mm3 (4.5-10.0)
[2021-07-22 05:39] LABS: Add Urine Microscopic? YES; Appearance Urine Clear (Clear); Bilirubin Urine Negative (Negative); Blood Urine Negative (Negative); Color Urine Yellow (Yellow); Glucose Urine UA Negative (Negative); Ketones Urine Negative (Negative); Leukocyte Esterase Ur Negative LEU/UL (Negative); Mucus Urine Rare /lpf; Nitrate Urine Negative (Negative); Protein Urine 3+ mg/dL (Negative); RBC Urine 0-2 /hpf (0-2); Specific Grav Ur 1.026 (1.001-1.035); Squamous Epithelial Cell Urine Few /hpf (Few); Urobilinogen Urine Negative mg/dL (<2.0); WBC Urine 0-3 /hpf
[2021-07-22 05:44] LABS: Prothrombin Time 13.2 Seconds (11.1-14.7)
[2021-07-22] MEDS: ALBUTEROL SULFATE NEB 2.5 MG/0.5 ML INH 10 MG INHALATION (05:44)
[2021-07-22 05:45] LABS: Partial Thromboplastin Time 36.5 SECONDS (22.3-36.8)
[2021-07-22] MEDS: IPRATROPIUM BR 0.02% INH SOLN 0.5 MG/2.5 ML VIAL 1 MG INHALATION (05:45)
[2021-07-22 05:48] LABS: Anion Gap 7 mmol/L (8-16); Blood Urea Nitrogen 37 mg/dL (7-17); Calcium 8.4 mg/dL (8.4-10.2); Carbon Dioxide 25 mmol/L (22-30); Chloride 109 mmol/L (98-107); Estimated CRCL calculation 33 ml/min; Estimated Glomerular Filt Rate 31; Glucose 105 mg/dL (65-110); Potassium 4.5 mmol/L (3.4-5.0); Sodium 141 mmol/L (137-145)
[2021-07-22 05:55] LABS: Alveolar/Arterial O2 Gradient 42.9 mmHg; Base Excess ABG -2.9 mEq/l (+/-2.0); Carboxyhemoglobin 0.8 % THb (0-2.0); Fractional Inspired Oxygen 28 %; Methemoglobin ABG 0.3 %THb (0-1.5); Oxygen Content ABG 17.1 %vol (16.0-22.0); Oxygen Saturation ABG 96.6 % (95.0-100.0); Oxyhemoglobin 95.3 % THb (90.0-100.0); PCO2 ABG 50.7 mmHg (35.0-45.0); PO2 ABG 96.9 mmHg (80.0-100.0); PO2 FiO2 Ratio Arterial Blood 3.46 %; Reduced Hemoglobin 3.6 %THb (0-5.0); Total Hemoglobin 12.7 g/dL (12.0-18.0)
[2021-07-22 05:57] LABS: Site Drawn LEFT BRACHIAL; pH ABG 7.293 (7.350-7.450)
[2021-07-22 05:58] LABS: Device NASAL CANNULA
[2021-07-22 06:00] LABS: Troponin I 0.026 ng/mL (0.000-0.034)
--- NOTE | 2021-07-22 06:13 | PC.NURSE ---
chem, Gayatri, [facility] 1220
--- NOTE | 2021-07-22 06:18 | PC.NURSE ---
Fluids stopped per CT at this time - will restart on pts return to room, pt to CT via stretcher.
[2021-07-22 06:43] LABS: NT Pro B Type Natriuretic Pept 3690 pg/mL (5-100)
[2021-07-22 07:30] LABS: Lactic Acid Reflex 0.7 mmol/L (0.7-2.1)
[2021-07-22] MEDS: ALBUTEROL SULFATE NEB 2.5 MG/0.5 ML INH 5 MG INHALATION ×3 (07:58→20:37)
[2021-07-22] MEDS: IPRATROPIUM BR 0.02% INH SOLN 0.5 MG/2.5 ML VIAL INHALATION ×3 (07:58→20:37)
--- NOTE | 2021-07-22 08:10 | PC.NURSE ---
0810 pt HR noted to be 150 on the monitor, this RN to room immediately and found pt unresponsive, diaphoretic. pt was previously ao x 3 and ceftriaxone infusion stopped. Shira, RN to room and Dr. Mathis. VORB 50mg benadryl and 125mg solumedrol
[2021-07-22] MEDS: methylPREDNISolone SOD SUCC 125 MG VIAL (08:12)
[2021-07-22] MEDS: diphenhydrAMINE HCl INJ 50 MG/ML VIAL (08:12)
--- NOTE | 2021-07-22 08:15 | PC.NURSE ---
0815 pt now thrashing, screaming non sensically. 0820 pt beginning to become more alert, not oriented. pt yelling in pain, but unable to establish where. Dr. Mathis to call daughter, Wes, regarding intubation. 0825 pt yelling that she can't breathe , not keeping O2 on. staff ready for pt to be intubated.
[2021-07-22] MEDS: RAPID SEQUENCE INTUBATION KIT 1 EACH (08:39)
--- NOTE | 2021-07-22 08:39 | PC.NURSE ---
0838 4mg versed, 100mg succ 0839 edp attempt intubation, 90% O2 sat 0840 bagging pt, suction, 92% O2 sat 0841 edp re attempt, 92% O2 sat 0841 7.5 ETT, 25 at the lips 0845 NG to R nare placed, 65
--- NOTE | 2021-07-22 08:53 | PC.NURSE ---
0853 2mg versed admin VORB Dr. Mathis
[2021-07-22] MEDS: PROPOFOL IV EMULSION 100 ML 3 MG (08:55)
--- NOTE | 2021-07-22 08:55 | ED.SOB ---
HPI - SOB/Dyspnea General Chief Complaint: Shortness of Breath/Dyspnea Stated Complaint: SOB AND WEAKNESS Time Seen by Provider: 07/22/21 05:00 History of Present Illness HPI Narrative: Patient was managed by Dr. wilkes and was ready to go to the floor, with a diagnosis of pneumonia and respiratory failure. Patient received Rocephin 1 g IV subsequently became unresponsive, generalized warm and redness of the skin, and severe hypoxia and tachycardia. Allergic reaction was a concern at that time. Patient received Solu-Medrol, Benadryl, 100% nonrebreather, within 5 to 10 minutes patient start waking up, screaming of pain, unable to localize where is the pain. After talking to her daughter by the phone who requested that patient be intubated, if she needed.,. Related Data Home Medications Medication Instructions Recorded Confirmed ezetimibe 10 mg tablet 10 mg PO DAILY 12/07/19 07/21/21 fenofibrate 160 mg tablet 160 mg PO DAILY 12/07/19 07/21/21 furosemide 20 mg tablet 20 mg PO EVERY OTHER DAY PRN 12/07/19 07/21/21 tablet gabapentin 300 mg capsule 300 mg PO TID 12/07/19 07/21/21 Levemir U-100 Insulin 40 unit SUBCUT HS 02/22/21 07/21/21 ergocalciferol (vitamin D2) 1,250 mcg PO WEEKLY 02/22/21 07/21/21 glipizide 10 mg PO BID 02/22/21 07/21/21 insulin aspart U-100 [Novolog unit SUBCUT TID 05/28/21 07/21/21 U-100 Insulin aspart] metoprolol succinate 25 mg 25 mg PO DAILY 07/21/21 07/21/21 tablet,extended release 24 hr diphenoxylate-atropine 2 tablet PO QID PRN 07/22/21 07/22/21 sitagliptin [Januvia] 100 mg PO DAILY 07/22/21 07/22/21 Allergies Allergy/AdvReac Type Severity Reaction Status Date / Time clindamycin Allergy Unknown Nausea and Verified 07/22/21 05:45 Vomiting morphine Allergy Unknown Vomiting Verified 07/22/21 05:45 nitroglycerin Allergy Unknown Headache Verified 07/22/21 05:45 Penicillins Allergy Unknown Hives Verified 07/22/21 05:45 ceftriaxone Allergy Anaphylaxis Verified 07/22/21 08:34 Review of Systems Review of Systems: ROS unobtainable: Yes unobtainable due to medical condition and unobtainable due to mental status PMFSH Past Medical History Medical History Anemia of chronic disease Cerebrovascular accident 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 Chronic obstructive pulmonary disease Congestive heart failure History of reduced ejection fraction with improvement in EF to 55% on most recent echo. Diastolic dysfunction also noted. 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 Depression with anxiety Diabetic peripheral neuropathy Dyslipidemia Essential hypertension Fibromyalgia Gastroesophageal reflux disease History of peptic ulcer Hypersomnia Insulin dependent type 2 diabetes mellitus Obstructive sleep apnea on CPAP Osteoarthritis Stage III chronic kidney disease Baseline creatinine ranges between 1.3 and 1.60. Vitamin D deficiency Surgical History Surgical History History of appendectomy History of cardiac catheterization (~07/2013) Normal coronaries although anomalous left coronary artery arising from the right ostium was noted. History of hysterectomy (~1979) History of left breast biopsy Benign pathology. Family History Family History Father Malignant neoplasm of prostate Heart disease Mother Esophageal cancer Sibling Diabetes mellitus Daughter Alcoholism Social History Social History Social History: The patient is and lives With her daughter. 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 No alcohol or
[2021-07-22] MEDS: FUROSEMIDE INJ 40 MG/4 ML VIAL (09:00)
--- NOTE | 2021-07-22 09:10 | PC.NURSE ---
0900 pink frothy sputum noted to inline suction, EDP made aware. VORB for 40mg lasix
[2021-07-22] MEDS: SODIUM CHLORIDE 0.9% IV 1,000 ML 999 ML IV CONT (09:15)
--- NOTE | 2021-07-22 09:20 | PC.NURSE ---
2mg versed admin, pt suctioned d/t pink frothy sputum around mouth and pt agitated pulling at tube
--- NOTE | 2021-07-22 09:36 | PC.NURSE ---
6055 pt color normal, pt no longer diaphoretic. daughter, sameer, at bedside
--- NOTE | 2021-07-22 09:40 | PC.NURSE ---
2mg versed admin d/t pt agitation. VORB dr. alvarez for 2mg versed admin PRN agitation
--- NOTE | 2021-07-22 09:50 | PC.NURSE ---
2mg versed admin
--- NOTE | 2021-07-22 10:14 | PC.NURSE ---
pt agitated, pulling up at tube 2mg versed admin
--- NOTE | 2021-07-22 10:39 | ECG_ITS ---
Measurements Intervals [place] Rate: 141 P: 228 AR: 91 QRS: -53 QRSD: 137 T: 99 QT: 320 QTc: 492 Interpretive Statements ATRIAL FLUTTER/TACHYCARDIA WITH RAPID VENTRICULAR RESPONSE INTRAVENTRICULAR CONDUCTION DELAY LEFT VENTRICULAR HYPERTROPHY AND ST-T CHANGE CANNOT RULE OUT SEPTAL INFARCT, AGE INDETERMINATE ABNORMAL ECG Electronically Signed On 07-22-2021 10:54:14 CDT by Chau Vega D.O.
--- NOTE | 2021-07-22 11:02 | PC.NURSE ---
1102 2mg versed admin, pt restless
--- NOTE | 2021-07-22 11:35 | PC.NURSE ---
1135 pt given 2mg versed for agitation in CT
[2021-07-22 12:14] LABS: Glucose Point of Care 144 mg/dl (65-105)
--- NOTE | 2021-07-22 12:44 | ADMGEN ---
This patient, Sarah Alvarado, was admitted to Intensive Care Unit-5. Patient/family oriented to hospital policies and general routines including ID bracelet, bed and alarms, visiting hours, pain management, procedures, bathroom and other care routines, personal items, smoking policy, room service/diet, and visiting hours. Information on how to activate the Rapid Response Team has been discussed. Patient/Family are encouraged to report perceived risks to care and to ask questions if they do not understand what they are told or what they should do.
--- NOTE | 2021-07-22 12:57 | WPDCNINT ---
Assessment and Plan Assessment and plan (1) Acute respiratory failure: Qualifiers: Respiratory failure complication: hypoxia Qualified Code(s): J96.01 - Acute respiratory failure with hypoxia Code(s): J96.00 - Acute respiratory failure, unspecified whether with hypoxia or hypercapnia Status: Acute Assessment and Plan: Acute respiratory failure likely related to allergic reaction to ceftriaxone, and pneumonia -patient was intubated for airway protection and hypoxia -ceftriaxone has been discontinued, -patient is on azithromycin and Levaquin -on CMV mode of ventilation, peep of 8 and 50% FiO2. Given history for COPD will keep O2 sats greater than 92% -continue bronchodilators (2) Allergic drug reaction: Qualifiers: Encounter type: subsequent encounter Qualified Code(s): T78.40XD - Allergy, unspecified, subsequent encounter Code(s): T78.40XA - Allergy, unspecified, initial encounter Status: Acute Assessment and Plan: Patient with allergic drug reaction to ceftriaxone. Patient became unresponsive, was diaphoretic, and respiratory distress, with infuse oxygen requirements, flushing of the skin. -patient received Solu-Medrol and Benadryl -will continue Benadryl, Solu-Medrol and will add famotidine -on examination there is no swelling of the tongue -CT scan of the soft tissues of the neck 07/22/2021: ET tube in position. Pharynx collapsed around ET and NG tubes. Nasopharyngeal fluid above this. 2. No cervical abscess or lymphadenopathy.3. Pneumonia. (3) Community acquired pneumonia: Qualifiers: Laterality: unspecified laterality Qualified Code(s): J18.9 - Pneumonia, unspecified organism Code(s): J18.9 - Pneumonia, unspecified organism Status: Acute Assessment and Plan: Patient also has community-acquired pneumonia, -will treat with azithromycin and Levaquin -blood cultures have been obtained, will add sputum culture (4) Essential hypertension: Code(s): I10 - Essential (primary) hypertension Status: Acute Assessment and Plan: Essential hypertension -her blood pressures have been stable, patient on metoprolol at home, will continue (5) Stage III chronic kidney disease: Code(s): N18.3 - Chronic kidney disease, stage 3 (moderate) Status: Acute Assessment and Plan: Patient with chronic kidney disease stage 3, baseline creatinine between 1.5-1.8 -patient currently at baseline creatinine -continue monitor urine output, renal function electrolytes (6) Chronic obstructive pulmonary disease: Code(s): J44.9 - Chronic obstructive pulmonary disease, unspecified Status: Acute Assessment and Plan: Patient with history of COPD, -continue steroids, antibiotics and bronchodilators (7) Insulin dependent type 2 diabetes mellitus: Code(s): E11.9 - Type 2 diabetes mellitus without complications; Z79.4 - correction (current) use of insulin Status: Acute Assessment and Plan: Sliding scale insulin Accu-Cheks -will add Levemir which patient takes at home, 40 units SQ (8) Congestive heart failure: Code(s): I50.9 - Heart failure, unspecified Status: Acute Assessment and Plan: Patient's BNP is 3690 -echocardiogram from 11/25/2020 shows an LVEF systolic function mildly reduced with EF of 45-50%, moderate concentrate LV wall thickness, -patient does not seem to be volume overloaded at this time, will continue to monitor (9) Obstructive sleep apnea on CPAP: Code(s): G47.33 - Obstructive sleep apnea (adult) (pediatric); Z99.89 - Dependence on other enabling machines and devices Status: Acute Assessment and Plan: Currently intubated (10) 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irus infection: Code(s): Z20.822 - Contact with and (suspected) exposure to COVID-19 Status: Acute Assessment and Plan: Diffuse infiltrates on chest x-ray and chest CTA -SARS-
[2021-07-22] MEDS: PROPOFOL IV EMULSION 100 ML 20.79 MG IV CONT (14:56)
[2021-07-22] MEDS: MINERAL OIL/WHITE PETROLATUM OINTMENT 1 APPLIC EACH EYE ×2 (14:57→21:59)
[2021-07-22] MEDS: levoFLOXacin 500 MG/D5W 100 ML 500 MG/100 ML BAG 100 MG IVPB (14:58)
[2021-07-22] MEDS: FAMOTIDINE 20 MG/2 ML VIAL IV PUSH ×2 (14:59→21:58)
[2021-07-22 15:31] LABS: Base Excess ABG -2.7 mEq/l (+/-2.0); Fractional Inspired Oxygen 50 %; HCO3 ABG 22.2 mEq/l (22.0-26.0); Oxygen Content ABG 17.2 %vol (16.0-22.0); Oxygen Saturation ABG 96.8 % (95.0-100.0); Oxyhemoglobin 95.6 % THb (90.0-100.0); PCO2 ABG 39.1 mmHg (35.0-45.0); PO2 ABG 90.5 mmHg (80.0-100.0); PO2 FiO2 Ratio Arterial Blood 1.81 %; Total Hemoglobin 12.7 g/dL (12.0-18.0); pH ABG 7.372 (7.350-7.450)
[2021-07-22 15:32] LABS: Device VENTILATOR; Modified Allen's Test Pass; Site Drawn LEFT RADIAL
[2021-07-22 15:33] LABS: Arterial Blood Gas PEEP 8 cmH2O; Arterial Blood Gas Tidal Volume 350 ml; Arterial Blood Gas Vent Mode CMV; Arterial Blood Gas Ventilator rate 20 /MIN
--- NOTE | 2021-07-22 16:07 | PM.IMHP ---
H&P: HPI History of Present Illness Date/Time: 07/22/21 16:07 this is a 76-year-old female patient who has a past medical history of COPD, CHF, CVA, diabetes type 2 and sleep apnea. The patient presented to the emergency room via ambulance with the complaint shortness of breath she had a productive cough and was wheezing. She denied any fever chills. She was complaining of some generalized weakness without any focal weakness or numbness. The patient was found to be hypoglycemic she was given oral glucose with improvement. The patient was noted to be hypoxic and was 85% on room air EMS, no history of any home oxygen and she was placed on 4 L and transported to our facility. The patient had no complaints of any chest pain. The COVID swab was found to be positive on May 28. The patient has been vaccinated with ADVIZE vaccine. The patient was going to be admitted to medical floor with a diagnosis of pneumonia and respiratory failure. The patient received Rocephin 1 g and became unresponsive, generalized warmth and redness the skin and severe hypoxia tachycardia. It is felt that the patient had an anaphylactic shock and was intubated and placed in the emergency room. The patient is on CMV Walsh on the ventilator peep of 850% FiO2. The psychiatric therapist has been consulted and has seen the patient. The patient is being admitted to inpatient status. Date of service 07/22/2020 Chief Complaint: Shortness of breath Review of Systems Review of Systems: ROS unobtainable: Yes unobtainable due to endotracheal tube PMFSH Past Medical History Medical History (Updated 07/22/21 @ 16:21 by Samara Marrero, ROLL BU[employer]ER) Anemia of chronic disease Cerebrovascular accident 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 Chronic obstructive pulmonary disease Congestive heart failure History of reduced ejection fraction with improvement in EF to 55% on most recent echo. Diastolic dysfunction also noted. 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 Depression with anxiety Diabetic peripheral neuropathy Dyslipidemia Essential hypertension Fibromyalgia Gastroesophageal reflux disease History of peptic ulcer Hypersomnia Insulin dependent type 2 diabetes mellitus Obstructive sleep apnea on CPAP Osteoarthritis Stage III chronic kidney disease Baseline creatinine ranges between 1.3 and 1.60. Vitamin D deficiency Surgical History Surgical History History of appendectomy History of cardiac catheterization (~07/2013) Normal coronaries although anomalous left coronary artery arising from the right ostium was noted. History of hysterectomy (~1979) History of left breast biopsy Benign pathology. Family History Family History Father Malignant neoplasm of prostate Heart disease Mother Esophageal cancer Sibling Diabetes mellitus Daughter Alcoholism Social History Social History Social History: The patient is and lives With her daughter. 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 No alcohol or illicit substance abuse. She designates her daughter, Mikki Herrera, as her surrogate decision maker and she wishes to be a full code. Smoking status: Unknown if ever smoked Alcohol intake: unknown Substance use: unknown Spiritual care concerns: No Meds Home Medications and Allergies Home Medications Medication Instructions Recorded Confirmed Type ezetimibe 10 mg tablet 10 mg PO DAILY 12/07/19 07/22/21 History fenofibrate 160 mg tablet 160 mg PO DAILY 12/07/19 07/22/21 History furosemide 20 mg tablet 20 mg PO EVERY OTHER
[2021-07-22] MEDS: SODIUM CHLORIDE 0.9% IV 1,000 ML 75 ML IV CONT (16:21)
[2021-07-22] MEDS: methylPREDNISolone SOD SUCC 40 MG VIAL IV PUSH ×2 (16:21→23:54)
[2021-07-22 18:35] LABS: Glucose Point of Care 209 mg/dl (65-105)
[2021-07-22] MEDS: GABAPENTIN 300 MG CAPSULE PO (18:46)
[2021-07-22] MEDS: INSULIN ASPART (*BKC) 100 UNITS/ML SUB-Q (18:47)
[2021-07-22] MEDS: PROPOFOL IV EMULSION 100 ML 25.2 MG IV CONT (19:14)
--- NOTE | 2021-07-22 21:36 | P.PCNBED_ITS ---
Procedures Central Line Placement Right Femoral: Central Line Date: 07/22/21 Central Line Time: 21:31 Discussed w/ the patient/family/POA,the placement of a central venous catheter, including its clinical necessity/indication & associated potential risks, benifits and alternatives.: Yes The patient/family/POA understand(s) and acknowledge(s) the need to proceed with central venous catheter insertion as an important element of the patient's clinical management.: Yes Time Out Performed: Yes Patient Position: supine Patient placed on monitor/pulse ox: Yes Provider Prep: Max. sterile barrier precautions Central line prep: 2% Chlorhexidine scrub and sterile full body sheet applied Local anesthesia used: lidocaine 2% Amount of anesthesia used (ml): 4 Sterile US Technique with sterile gel/sterile probe covers: Yes Central line lumen inserted: triple Portuguese: 7 Length (cm): 16 Depth of Insertion (cm): 15 Post Procedure: sutured in place, good blood return, all ports aspirated, flushed, capped, transparent dressing and antimicrobial product Patient tolerated procedure: well Complications: none
[2021-07-22] MEDS: CENTRAL LINE FLUSH 10 ML IV PUSH (21:59)
[2021-07-22] MEDS: PROPOFOL IV EMULSION 100 ML 18.9 MG IV CONT (23:10)
[2021-07-23] VITALS (34 sets, daily range): BP systolic 115–159; BP diastolic 55–108; PULSE 67–105; RESP 16–24; TEMP 35.8–36.8; O2SAT 95–100
[2021-07-23 00:12] LABS: Glucose Point of Care 187 mg/dl (65-105)
[2021-07-23] MEDS: IPRATROPIUM BR 0.02% INH SOLN 0.5 MG/2.5 ML VIAL INHALATION ×4 (02:10→20:05)
[2021-07-23] MEDS: ALBUTEROL SULFATE NEB 2.5 MG/0.5 ML INH 5 MG INHALATION ×4 (02:10→20:05)
[2021-07-23] MEDS: diphenhydrAMINE HCl INJ 50 MG/ML VIAL 25 MG IV PUSH ×4 (03:12→20:48)
[2021-07-23] MEDS: PROPOFOL IV EMULSION 100 ML 18.9 MG IV CONT ×2 (03:12→08:27)
[2021-07-23 05:02] LABS: Alveolar/Arterial O2 Gradient 154.7 mmHg; Base Excess ABG -5.9 mEq/l (+/-2.0); Carboxyhemoglobin 0.3 % THb (0-2.0); Fractional Inspired Oxygen 40 %; HCO3 ABG 18.5 mEq/l (22.0-26.0); Methemoglobin ABG 0.4 %THb (0-1.5); Oxygen Content ABG 15.6 %vol (16.0-22.0); Oxyhemoglobin 95.2 % THb (90.0-100.0); PCO2 ABG 32.6 mmHg (35.0-45.0); PO2 FiO2 Ratio Arterial Blood 2.33 %; Reduced Hemoglobin 4.1 %THb (0-5.0); Total Hemoglobin 11.6 g/dL (12.0-18.0); pH ABG 7.371 (7.350-7.450)
[2021-07-23 05:03] LABS: Arterial Blood Gas Ventilator rate 20 /MIN; Device VENTILATOR; Modified Allen's Test Pass; Site Drawn RIGHT RADIAL
[2021-07-23 05:04] LABS: Arterial Blood Gas PEEP 8 cmH2O; Arterial Blood Gas Tidal Volume 350 ml; Arterial Blood Gas Vent Mode CMV
[2021-07-23] MEDS: methylPREDNISolone SOD SUCC 40 MG VIAL IV PUSH ×3 (05:57→18:47)
[2021-07-23] MEDS: CENTRAL LINE FLUSH 10 ML IV PUSH ×5 (05:57→21:28)
[2021-07-23] MEDS: SODIUM CHLORIDE 0.9% IV 1,000 ML 75 ML IV CONT ×2 (05:57→20:46)
[2021-07-23 06:11] LABS: Hematocrit 34.2 % (37.0-47.0); Hemoglobin 10.6 g/dL (12.0-15.0); Mean Corpuscular Hemoglobin 30.4 pg (26-34); Mean Platelet Volume 10.1 fl (7.4-10.4); Platelet Count Result 224 k/mm3 (150-375); Red Blood Count 3.49 M/mm3 (4.2-5.4); Red Cell Distribution Width 15.9 % (11.5-14.5); White Blood Count 4.5 K/mm3 (4.5-10.0)
[2021-07-23 06:24] LABS: Lactic Acid Reflex 0.8 mmol/L (0.7-2.1)
[2021-07-23 06:27] LABS: Alanine Aminotransferase 23 U/L (4-35); Albumin Level 2.7 g/dL (3.5-5.1); Alkaline Phosphatase 49 U/L (38-126); Anion Gap 11 mmol/L (8-16); Aspartate Amino Transferase 36 U/L (14-36); Bilirubin,Total 0.5 mg/dL (0.2-1.3); Blood Urea Nitrogen 46 mg/dL (7-17); Calcium 7.5 mg/dL (8.4-10.2); Carbon Dioxide 19 mmol/L (22-30); Chloride 109 mmol/L (98-107); Estimated CRCL calculation 29 ml/min; Estimated Glomerular Filt Rate 26; Glucose 199 mg/dL (65-110); Magnesium 2.8 mg/dL (1.6-2.3); Phosphorus 4.6 mg/dL (2.5-4.5); Potassium 4.3 mmol/L (3.4-5.0); Sodium 139 mmol/L (137-145)
[2021-07-23 06:36] LABS: Hemoglobin A1C 6.9 % (<5.7)
[2021-07-23 07:26] LABS: Creatine Kinase 78 U/L (30-135)
--- NOTE | 2021-07-23 08:50 | PM.IMPN ---
Progress Note: A&P Assessment and Plan (1) Acute respiratory failure: Qualifiers: Respiratory failure complication: hypoxia Qualified Code(s): J96.01 - Acute respiratory failure with hypoxia Code(s): J96.00 - Acute respiratory failure, unspecified whether with hypoxia or hypercapnia Status: Acute Assessment and Plan: Related to anaphylactic shock from an allergic reaction to ceftriaxone. Patient also has pneumonia and hx of COPD. CT neck showing pharynx collapsing around the ETT. She is also being tested for COVID-19. She is currently intubated and managed by the wire twisting machine operator. Ceftriaxone has been discontinued. Patient is currently on a azithromycin and Levaquin. CXR noted with new airspace disease and ETT bulb is overinflated; wire twisting machine operator aware. Continue Solu-Medrol, Pepcid and Benadryl. Continue with bronchodilators. Wean mechanical vent as tolerated. (2) Allergic drug reaction: Qualifiers: Encounter type: subsequent encounter Qualified Code(s): T78.40XD - Allergy, unspecified, subsequent encounter Code(s): T78.40XA - Allergy, unspecified, initial encounter Status: Acute Assessment and Plan: Patient had a severe allergic reaction to ceftriaxone in the ED. The patient became unresponsive and diaphoretic with increased respiratory distress. The patient required intubation. Patient received Solu-Medrol, Benadryl IV and Pepcid IV. CT soft tissue of neck showing ET tube in position with the pharynx collapsed around ET and NG tubes. Deflate cuff periodically to determine if leak develops to see if edema is better. (3) Community acquired pneumonia: Qualifiers: Laterality: unspecified laterality Qualified Code(s): J18.9 - Pneumonia, unspecified organism Code(s): J18.9 - Pneumonia, unspecified organism Status: Acute Assessment and Plan: CTA chest showing consolidation in the posterior segment of the left upper lobe consistent with pneumonia with additional bilateral regions of small central lobular nodules and groundglass opacities favoring CAP. Started on Rocephin and azithromycin but Rocephin stopped due severre allergic reaction. Changed to Levaquin. Sputum cultures pending. BCx NGTD. CXR today reviewd showing new airspace opacities t/o both lungs. Continue neb treatments. Continue Levaquin; stop Azithro. (4) Atrial fibrillation: Code(s): I48.91 - Unspecified atrial fibrillation Status: Acute Assessment and Plan: EKGs reviewed. Probably AFib. Patient has known Lt BBB and frequent PACs. Tele showing probably MAT as well. Metoprolol resumed. [id number] 8 with HAS-BLED 3. Currently in NSR. Could be transient related to above. Trop negative x1. Continue metoprolol. Monitor on tele. Repeat EKG in the morning. Repeat Echo. (5) Essential hypertension: Code(s): I10 - Essential (primary) hypertension Status: Chronic Assessment and Plan: Patient's blood pressure was reviewed on 07/23 Blood pressure was up/down initially but more stable now and remains well controlled. Will continue current medications. Continue metoprolol. (6) Stage III chronic kidney disease: Code(s): N18.3 - Chronic kidney disease, stage 3 (moderate) Status: Acute Assessment and Plan: A1c 6.9. Cr 1.4-1.9 range chronically. Cr 1.6 on admission and has climbed to 1.9 today. Still within her baseline but she was hypotensive in the ED (70/38) and received contrast so monitor for ATN/CARA/AIN. UOP 700mL yesterday and 350mL so far today. Continue to monitor. Renal US ordered. Nephrology consulted. Add diferential to CBC to check for eosinophilia. (7) COPD exacerbation: Code(s): J44.1 - Chronic obstructive pulmonary disease with (acute) exacerbation Status: Acute Assessment and Plan: CTA chest on admission showing mild emphysema with mild enlargement of the central pulmonary arteries consis
[2021-07-23] MEDS: ASPIRIN 81 MG CHEWABLE TABLET PO (09:26)
[2021-07-23] MEDS: ATORVASTATIN 40 MG TABLET 80 MG PO (09:26)
[2021-07-23] MEDS: ENOXAPARIN 40 MG/0.4 ML SYRINGE SUB-Q (09:27)
[2021-07-23] MEDS: FAMOTIDINE 20 MG/2 ML VIAL IV PUSH ×2 (09:27→20:49)
[2021-07-23] MEDS: EZETIMIBE 10 MG TABLET PO (09:27)
[2021-07-23] MEDS: FENOFIBRATE 160 MG TABLET PO (09:27)
[2021-07-23] MEDS: MINERAL OIL/WHITE PETROLATUM OINTMENT 1 APPLIC EACH EYE ×2 (09:28→20:51)
[2021-07-23] MEDS: METOPROLOL TARTRATE 12.5 MG TABLET PO (09:28)
[2021-07-23] MEDS: GABAPENTIN 300 MG CAPSULE PO ×3 (09:36→18:46)
[2021-07-23] MEDS: levoFLOXacin 250 MG/D5W 50 ML 250 MG/50 ML BAG 50 MG IVPB (10:55)
--- NOTE | 2021-07-23 11:14 | WPDINTPN ---
Progress Note: A&P Assessment and Plan (1) Acute respiratory failure: Qualifiers: Respiratory failure complication: hypoxia Qualified Code(s): J96.01 - Acute respiratory failure with hypoxia Code(s): J96.00 - Acute respiratory failure, unspecified whether with hypoxia or hypercapnia Status: Acute Assessment and Plan: Acute respiratory failure likely related to allergic reaction to ceftriaxone, and pneumonia -patient was intubated for airway protection and hypoxia -ceftriaxone has been discontinued, -patient is on azithromycin and Levaquin, given arrhythmia will discontinue azithromycin -on CMV mode of ventilation, peep of 8 and 40% FiO2. Given history for COPD will keep O2 sats greater than 92% -sedated with propofol -continue bronchodilators (2) Allergic drug reaction: Qualifiers: Encounter type: subsequent encounter Qualified Code(s): T78.40XD - Allergy, unspecified, subsequent encounter Code(s): T78.40XA - Allergy, unspecified, initial encounter Status: Acute Assessment and Plan: Patient with allergic drug reaction to ceftriaxone. Patient became unresponsive, was diaphoretic, and respiratory distress, with infuse oxygen requirements, flushing of the skin. -patient received Solu-Medrol and Benadryl -will continue Benadryl, Solu-Medrol and famotidine -on examination there is no swelling of the tongue -CT scan of the soft tissues of the neck 07/22/2021: ET tube in position. Pharynx collapsed around ET and NG tubes. Nasopharyngeal fluid above this. 2. No cervical abscess or lymphadenopathy.3. Pneumonia. (3) Community acquired pneumonia: Qualifiers: Laterality: unspecified laterality Qualified Code(s): J18.9 - Pneumonia, unspecified organism Code(s): J18.9 - Pneumonia, unspecified organism Status: Acute Assessment and Plan: Patient also has community-acquired pneumonia, -continue Levaquin, azithromycin discontinued due to arrhythmias -07/22/2021 blood cultures negative x2 -sputum culture has been ordered and pending (4) Essential hypertension: Code(s): I10 - Essential (primary) hypertension Status: Chronic Assessment and Plan: Essential hypertension -her blood pressures have been stable, patient on metoprolol at home, increase metoprolol (5) Stage III chronic kidney disease: Code(s): N18.3 - Chronic kidney disease, stage 3 (moderate) Status: Acute Assessment and Plan: Patient with chronic kidney disease stage 3, baseline creatinine between 1.5-1.8 -patient currently at baseline creatinine -continue monitor urine output, renal function electrolytes -will have Nephrology evaluate the patient -07/23/2021 renal ultrasound: Bilateral renal cortical atrophy and 4.0 cm right renal cyst. 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: Code(s): E11.9 - Type 2 diabetes mellitus without complications; Z79.4 - [facility] (current) use of insulin Status: Acute Assessment and Plan: Sliding scale insulin Accu-Cheks -continue Levemir (8) Congestive heart failure: Code(s): I50.9 - Heart failure, unspecified Status: Acute Assessment and Plan: Patient's BNP is 3690 -echocardiogram from 02/23/2021 shows an LVEF systolic function mildly reduced with EF of 45-50%, moderate concentrate LV wall thickness, -patient does not seem to be volume overloaded at this time, will continue to monitor -repeat echocardiogram has been ordered (9) Obstructive sleep apnea on CPAP: Code(s): G47.33 - Obstructive sleep apnea (adult) (pediatric); Z99.89 - Dependence on other enabling machines and devices Status: Acute Asses
[2021-07-23 11:39] LABS: Band Neutrophils Percent 3 % (0-6); Lymphocytes Absolute Manual 0.36 K/mm3 (1.1-4.5); Metamyelocytes Percent 1 %; Monocytes Absolute Manual 0.04 K/mm3 (0.1-0.90); Monocytes Percent Manual 1 % (3-9); Neutrophils Absolute Manual 4.05 K/mm3 (1.7-7.2); Neutrophils Percent Manual 87 % (46-73); Platelet Estimate Adequate (Adequate); Total Cells Counted 100
[2021-07-23 11:40] LABS: Anisocytosis 1+ (NORMAL); Poikilocytosis 1+ (NORMAL)
[2021-07-23 11:41] LABS: Acanthocytes 1+ (NORMAL); Hypochromasia 1+ (NORMAL)
[2021-07-23 11:44] LABS: Troponin I 0.048 ng/mL (0.000-0.034)
--- NOTE | 2021-07-23 11:54 | PCDIET ---
ICU Rounding Note: MD order to start tube feedings. Recommended Glucerna 1.2 at goal of 40mL/hr to provide 1554kcal and 52g protein with Propofol at current rate over 22 hour feedings/day. Last recorded weight is 106kg which is increased from last review. +I/O. Bowel Motility: No documented BM as of yet. Labs Reviewed: RBC (3.49), Hgb (10.6), Hct (34.2), Glu (199), BUN (46), Cr (1.9), Alb (2.7), Myranda Ca (8.54), PO4 (4.6), Mg (2.8) Meds Noted: Propofol (rate of 18.9mL/hr provides 498kcal per day), Fenofibrate, Albuterol, Pepcid, Atrovent, NS at 75mL/hr, Levaquin, Solu Medrol, Lopressor Additional Notes: No documented skin breakdown. Following daily in ICU rounds. Assessing/reassessing every Tuesday/Tuesday.
[2021-07-23] MEDS: INSULIN ASPART (*BKC) 100 UNITS/ML SUB-Q (12:29)
[2021-07-23 12:39] LABS: Glucose Point of Care 210 mg/dl (65-105)
--- NOTE | 2021-07-23 14:30 | P.CONNP_ITS ---
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 - allergic reaction - respiratory arrest * follow-up on renal ultrasound, urine electrolytes, and CPK * follow trend of repeat labs and UOP (2) Stage 3b chronic kidney disease: Code(s): N18.32 - Chronic kidney disease, stage 3b Status: Chronic Assessment and Plan: * baseline creatinine around 1.4 - 1.8mg/dl * presumably due to DM, HTN, vascular disease and age (3) Acute respiratory failure: Qualifiers: Respiratory failure complication: hypoxia Qualified Code(s): J96.01 - Acute respiratory failure with hypoxia Code(s): J96.00 - Acute respiratory failure, unspecified whether with hypoxia or hypercapnia Status: Acute Assessment and Plan: * due to a combination of allergic drug reaction, pneumonia, and known history of COPD + SUZANNE * remains on mechanical ventilation * wean as tolerated (4) Allergic drug reaction: Qualifiers: Encounter type: subsequent encounter Qualified Code(s): T78.40XD - Allergy, unspecified, subsequent encounter Code(s): T78.40XA - Allergy, unspecified, initial encounter Status: Acute Assessment and Plan: * presumed to be secondary to ceftriaxone * became unresponsive associated with diaphoresis, respiratory distress, skin flushing and increased oxygen requirement after administration of ceftriaxone * s/p Solu-Medrol and Benadryl and getting famotidine as well (5) Community acquired pneumonia: Qualifiers: Laterality: unspecified laterality Qualified Code(s): J18.9 - Pneumonia, unspecified organism Code(s): J18.9 - Pneumonia, unspecified organism Status: Acute Assessment and Plan: * as evidenced by imaging to date * on antibiotics (ceftriazone has been discontinued) * follow culture data (6) Congestive heart failure: Code(s): I50.9 - Heart failure, unspecified Status: Chronic Assessment and Plan: * despite history, appears compensated/euovelmic * follow volume status closely (7) Essential hypertension: Code(s): I10 - Essential (primary) hypertension Status: Chronic Assessment and Plan: * reasonably controlled at this time * follow trend of hemodynamics (8) Diabetes: Code(s): E11.9 - Type 2 diabetes mellitus without complications Status: Chronic Assessment and Plan: * follow accuchecks * glycemic control Discussed case with Dr. Guerrero earlier today. Will continue to follow History of Present Illness Reason for Consult Consult date: 07/23/21 Reason for consult: acute renal failure (on chronic kidney disease) Chief Complaint Chief complaint: pneumonia,hypoxic respiratory failure History of Present Illness Narrative: Most of the information I have obtained is from review of the electronic medical record as well as discussion with the physicians/nurses involved in her care as the patient is unable to provide me with any history as she is currently intubated and sedated. The patient is a 76 year old female with past medical history as outlined below who presented to [facility] ER yesterday with complains of shortness of and generalized weakness. By
--- NOTE | 2021-07-23 14:30 | PM.CNNEP ---
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 - allergic reaction - respiratory arrest follow-up on renal ultrasound, urine electrolytes, and CPK follow trend of repeat labs and UOP (2) Stage 3b chronic kidney disease: Code(s): N18.32 - Chronic kidney disease, stage 3b Status: Chronic Assessment and Plan: baseline creatinine around 1.4 - 1.8mg/dl presumably due to DM, HTN, vascular disease and age (3) Acute respiratory failure: Qualifiers: Respiratory failure complication: hypoxia Qualified Code(s): J96.01 - Acute respiratory failure with hypoxia Code(s): J96.00 - Acute respiratory failure, unspecified whether with hypoxia or hypercapnia Status: Acute Assessment and Plan: due to a combination of allergic drug reaction, pneumonia, and known history of COPD + SUZANNE remains on mechanical ventilation wean as tolerated (4) Allergic drug reaction: Qualifiers: Encounter type: subsequent encounter Qualified Code(s): T78.40XD - Allergy, unspecified, subsequent encounter Code(s): T78.40XA - Allergy, unspecified, initial encounter Status: Acute Assessment and Plan: presumed to be secondary to ceftriaxone became unresponsive associated with diaphoresis, respiratory distress, skin flushing and increased oxygen requirement after administration of ceftriaxone s/p Solu-Medrol and Benadryl and getting famotidine as well (5) Community acquired pneumonia: Qualifiers: Laterality: unspecified laterality Qualified Code(s): J18.9 - Pneumonia, unspecified organism Code(s): J18.9 - Pneumonia, unspecified organism Status: Acute Assessment and Plan: as evidenced by imaging to date on antibiotics (ceftriazone has been discontinued) follow culture data (6) Congestive heart failure: Code(s): I50.9 - Heart failure, unspecified Status: Chronic Assessment and Plan: despite history, appears compensated/euovelmic follow volume status closely (7) Essential hypertension: Code(s): I10 - Essential (primary) hypertension Status: Chronic Assessment and Plan: reasonably controlled at this time follow trend of hemodynamics (8) Diabetes: Code(s): E11.9 - Type 2 diabetes mellitus without complications Status: Chronic Assessment and Plan: follow accuchecks glycemic control Discussed case with Dr. Guerrero earlier today. Will continue to follow History of Present Illness Reason for Consult Consult date: 07/23/21 Reason for consult: acute renal failure (on chronic kidney disease) Chief Complaint Chief complaint: pneumonia,hypoxic respiratory failure History of Present Illness Narrative: Most of the information I have obtained is from review of the electronic medical record as well as discussion with the physicians/nurses involved in her care as the patient is unable to provide me with any history as she is currently intubated and sedated. The patient is a 76 year old female with past medical history as outlined below who presented to [facility] ER yesterday with complains of shortness of and generalized weakness. By report, the patient felt acutely short of breath after waking up on the day of admission to use the restroom. Other reported symptoms included productive cough as well as audible wheezing. She denies any fevers, chills chest pain, nausea, vomiting, or abdominal pain. She called 911 as her shortness of breath continued to worsen and EMS arrived and noted the patient to be hypoxic with reportedly O2 saturations of 85% on room air. Supplemental oxy
[2021-07-23] MEDS: LIDOCAINE HCL 1% LOCAL INJ 2 ML AMPUL 5 ML INFILTRATE (15:01)
[2021-07-23] MEDS: PROPOFOL IV EMULSION 100 ML 22.05 MG IV CONT (17:32)
[2021-07-23 18:33] LABS: Creatinine Urine 96.7 mg/dL
[2021-07-23 18:38] LABS: Potassium Urine Random 40.1 meq/L; Sodium Urine Random 17 meq/L
[2021-07-23 18:41] LABS: Eosinophil Urine None Seen % (None Seen)
[2021-07-23 19:52] LABS: SARS-CoV-2 RNA PCR Negative
[2021-07-23] MEDS: METOPROLOL TARTRATE 25 MG TABLET PO (20:50)
[2021-07-23 21:05] LABS: Glucose Point of Care 193 mg/dl (65-105)
[2021-07-23] MEDS: PROPOFOL IV EMULSION 100 ML 25.2 MG IV CONT (21:26)
[2021-07-24] VITALS (32 sets, daily range): BP systolic 128–173; BP diastolic 72–92; PULSE 58–86; RESP 13–25; TEMP 35.8–36.8; O2SAT 96–100
--- NOTE | 2021-07-24 | ECHO_ITS ---
Patient Info Name: Sarah Alvarado Age: 76 years : 1945 Gender: Female Ht: 66 in Wt: 233 lbs BSA: 2.27 m2 HR: 76 bpm BP: 168 / 89 mmHg Exam Date: 07/24/2021 8:58 AM Exam Location: [facility] Pulmonary Patient Status: Inpatient Admit Date: 07/22/2021 Staff Ordering Physician: Pradeep Garnett MD Clam Digger: Lamont Banda, GAYE, RT Attending Provider: Baldo Hays MD Exam Type: CA echo doppler color flow Study Info Indications I48.1 - Persistent atrial fibrillation Complete two-dimensional, color flow and Doppler transthoracic echocardiogram is performed. Strain analysis performed. Summary 1. Complete two-dimensional, color flow and Doppler transthoracic echocardiogram is performed. 2. Left ventricular chamber dimension is normal. 3. Left ventricular systolic function is normal, estimated at 55-60%. 4. There is moderately increased left ventricular wall thickness. 5. The left ventricular diastolic function is grade I diastolic dysfunction. 6. E/e' 21 is elevated. 7. Global longitudinal strain is abnormal at -10.7%. 8. Left atrial chamber dimension is moderately enlarged. 9. There is mild aortic valve sclerosis. 10. The mitral valve has moderately calcified annulus. 11. There is trace tricuspid valve regurgitation. 12. Normal inferior vena cava with <50% collapse upon inspiration consistent with elevated right atrial pressure, 10 mmHg. Left Ventricle E/e' 21 is elevated. Global longitudinal strain is abnormal at -10.7%. Left ventricular chamber dimension is normal. Left ventricular systolic function is normal, estimated at 55-60%. There is moderately increased left ventricular wall thickness. The left ventricular diastolic function is grade I diastolic dysfunction. Right Ventricle Right ventricular systolic function is normal and with normal TAPSE 2.5 cm.. Right ventricular chamber dimension is normal. Left Atria Left atrial chamber dimension is moderately enlarged. Right Atria Right atrial chamber dimension is normal. Aortic Valve The aortic valve is trileaflet. There is mild aortic valve sclerosis. There is no aortic valve stenosis. There is no aortic valve regurgitation. Pulmonic Valve There is no pulmonic regurgitation. Mitral Valve The mitral valve has moderately calcified annulus. There is no mitral valve stenosis. There is no mitral valve regurgitation. Tricuspid Valve There is trace tricuspid valve regurgitation. RVSP is not calculated due to an inadequate TR jet. Pericardium/Pleural There is no pericardial effusion. Inferior Vena Cava Normal inferior vena cava with <50% collapse upon inspiration consistent with elevated right atrial pressure, 10 mmHg. Aorta The aortic root size at the sinus of Valsalva is normal. Tricuspid Valve Name Value Normal Estimated PAP/RSVP RA Pressure 10 mmHg <=5 Report Signatures
[2021-07-24] MEDS: INSULIN ASPART (*BKC) 100 UNITS/ML SUB-Q ×4 (00:23→18:06)
[2021-07-24] MEDS: methylPREDNISolone SOD SUCC 40 MG VIAL IV PUSH ×3 (00:27→18:07)
[2021-07-24 00:32] LABS: Glucose Point of Care 242 mg/dl (65-105)
[2021-07-24] MEDS: PROPOFOL IV EMULSION 100 ML 25.2 MG IV CONT (01:14)
[2021-07-24] MEDS: ALBUTEROL SULFATE NEB 2.5 MG/0.5 ML INH 5 MG INHALATION ×4 (02:19→21:00)
[2021-07-24] MEDS: IPRATROPIUM BR 0.02% INH SOLN 0.5 MG/2.5 ML VIAL INHALATION ×4 (02:19→21:00)
[2021-07-24] MEDS: diphenhydrAMINE HCl INJ 50 MG/ML VIAL 25 MG IV PUSH ×3 (03:11→15:19)
[2021-07-24 04:38] LABS: Alveolar/Arterial O2 Gradient 141.2 mmHg; Base Excess ABG -6.2 mEq/l (+/-2.0); Carboxyhemoglobin 0.2 % THb (0-2.0); Fractional Inspired Oxygen 40 %; HCO3 ABG 18.9 mEq/l (22.0-26.0); Methemoglobin ABG 0.6 %THb (0-1.5); Oxygen Saturation ABG 97.4 % (95.0-100.0); Oxyhemoglobin 95.6 % THb (90.0-100.0); PO2 ABG 102.6 mmHg (80.0-100.0); PO2 FiO2 Ratio Arterial Blood 2.57 %; Reduced Hemoglobin 3.6 %THb (0-5.0); Total Hemoglobin 11.8 g/dL (12.0-18.0); pH ABG 7.338 (7.350-7.450)
[2021-07-24 04:39] LABS: Arterial Blood Gas PEEP 8 cmH2O; Arterial Blood Gas Vent Mode CMV; Arterial Blood Gas Ventilator rate 20 /MIN; Device VENTILATOR; Modified Allen's Test Pass; Site Drawn LEFT RADIAL
[2021-07-24 04:40] LABS: Arterial Blood Gas Tidal Volume 350 ml
[2021-07-24] MEDS: PROPOFOL IV EMULSION 100 ML 22.05 MG IV CONT (05:48)
[2021-07-24 05:49] LABS: Hematocrit 32.2 % (37.0-47.0); Hemoglobin 10.4 g/dL (12.0-15.0); Mean Corpuscular HGB Conc 32.3 g/dl (32-36); Mean Corpuscular Hemoglobin 31.8 pg (26-34); Mean Corpuscular Volume 98.5 fl (80-100); Mean Platelet Volume 10.1 fl (7.4-10.4); Platelet Count Result 239 k/mm3 (150-375); Red Blood Count 3.27 M/mm3 (4.2-5.4); Red Cell Distribution Width 15.8 % (11.5-14.5)
[2021-07-24] MEDS: CENTRAL LINE FLUSH 10 ML IV PUSH ×8 (05:51→21:19)
[2021-07-24 06:03] LABS: Alanine Aminotransferase 20 U/L (4-35); Albumin Level 2.7 g/dL (3.5-5.1); Alkaline Phosphatase 65 U/L (38-126); Anion Gap 9 mmol/L (8-16); Aspartate Amino Transferase 27 U/L (14-36); Bilirubin,Total 0.3 mg/dL (0.2-1.3); Blood Urea Nitrogen 56 mg/dL (7-17); Calcium 7.5 mg/dL (8.4-10.2); Carbon Dioxide 20 mmol/L (22-30); Chloride 110 mmol/L (98-107); Estimated CRCL calculation 29 ml/min; Estimated Glomerular Filt Rate 26; Glucose 270 mg/dL (65-110); Magnesium 2.8 mg/dL (1.6-2.3); Phosphorus 5.4 mg/dL (2.5-4.5); Sodium 139 mmol/L (137-145)
--- NOTE | 2021-07-24 08:00 | ECG_ITS ---
Measurements Intervals [place] Rate: 76 P: 82 WY: 198 QRS: -37 QRSD: 137 T: 60 QT: 420 QTc: 473 Interpretive Statements SINUS RHYTHM ATRIAL PREMATURE COMPLEX LEFT AXIS DEVIATION INTRAVENTRICULAR CONDUCTION DELAY DELAYED PRECORDIAL R/S TRANSITION BORDERLINE ECG Electronically Signed On 07-24-2021 12:20:09 CDT by Chau Vega D.O.
--- NOTE | 2021-07-24 08:53 | WPDINTPN ---
Progress Note: A&P Assessment and Plan (1) Acute respiratory failure: Qualifiers: Respiratory failure complication: hypoxia Qualified Code(s): J96.01 - Acute respiratory failure with hypoxia Code(s): J96.00 - Acute respiratory failure, unspecified whether with hypoxia or hypercapnia Status: Acute Assessment and Plan: Acute respiratory failure likely related to allergic reaction to ceftriaxone, and pneumonia -patient was intubated for airway protection and hypoxia -ceftriaxone has been discontinued, -continue Levaquin, azithromycin was discontinued on 07/23 -on CMV mode of ventilation, peep of 8 and 40% FiO2. Given history for COPD will keep O2 sats greater than 92% -sedated with propofol, or wean sedation, and place patient on SBT to evaluate for extubation -continue bronchodilators (2) Allergic drug reaction: Qualifiers: Encounter type: subsequent encounter Qualified Code(s): T78.40XD - Allergy, unspecified, subsequent encounter Code(s): T78.40XA - Allergy, unspecified, initial encounter Status: Acute Assessment and Plan: Patient with allergic drug reaction to ceftriaxone. Patient became unresponsive, was diaphoretic, and respiratory distress, with infuse oxygen requirements, flushing of the skin. -patient received Solu-Medrol and Benadryl -will continue Benadryl, Solu-Medrol and famotidine, will start weaning steroids -on examination there is no swelling of the tongue -CT scan of the soft tissues of the neck 07/22/2021: ET tube in position. Pharynx collapsed around ET and NG tubes. Nasopharyngeal fluid above this. 2. No cervical abscess or lymphadenopathy.3. Pneumonia. (3) Community acquired pneumonia: Qualifiers: Laterality: unspecified laterality Qualified Code(s): J18.9 - Pneumonia, unspecified organism Code(s): J18.9 - Pneumonia, unspecified organism Status: Acute Assessment and Plan: Patient also has community-acquired pneumonia, -continue Levaquin, azithromycin discontinued due to arrhythmias -07/22/2021 blood cultures negative x2 -sputum culture has been ordered and pending (4) Essential hypertension: Code(s): I10 - Essential (primary) hypertension Status: Chronic Assessment and Plan: Essential hypertension -her blood pressures have been stable, patient on metoprolol at home, increase metoprolol -add low-dose amlodipine (5) Stage III chronic kidney disease: Code(s): N18.3 - Chronic kidney disease, stage 3 (moderate) Status: Acute Assessment and Plan: Patient with chronic kidney disease stage 3, baseline creatinine between 1.5-1.8 -patient currently at baseline creatinine -continue monitor urine output, renal function electrolytes -will have Nephrology evaluate the patient -07/23/2021 renal ultrasound: Bilateral renal cortical atrophy and 4.0 cm right renal cyst. 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: Code(s): E11.9 - Type 2 diabetes mellitus without complications; Z79.4 - long term care pharmacist (current) use of insulin Status: Acute Assessment and Plan: Sliding scale insulin Accu-Cheks -continue Levemir (8) Congestive heart failure: Code(s): I50.9 - Heart failure, unspecified Status: Acute Assessment and Plan: Patient's BNP is 3690 -echocardiogram from 02/23/2021 shows an LVEF systolic function mildly reduced with EF of 45-50%, moderate concentrate LV wall thickness, -patient does not seem to be volume overloaded at this time, will continue to monitor -repeat echocardiogram has been ordered (9) Obstructive sleep apnea on CPAP: Code(s): G47.33 - Obstructive sleep apnea (adult) (pediatri
[2021-07-24] MEDS: ASPIRIN 81 MG CHEWABLE TABLET PO (09:25)
[2021-07-24] MEDS: amLODIPine BESYLATE 5 MG TABLET PO (09:25)
[2021-07-24] MEDS: ATORVASTATIN 40 MG TABLET 80 MG PO (09:26)
[2021-07-24] MEDS: ENOXAPARIN 40 MG/0.4 ML SYRINGE SUB-Q (09:26)
[2021-07-24] MEDS: EZETIMIBE 10 MG TABLET PO (09:26)
[2021-07-24] MEDS: FAMOTIDINE 20 MG/2 ML VIAL IV PUSH ×2 (09:27→21:18)
[2021-07-24] MEDS: GABAPENTIN 300 MG CAPSULE PO ×3 (09:27→18:06)
[2021-07-24] MEDS: FENOFIBRATE 160 MG TABLET PO (09:27)
[2021-07-24] MEDS: INSULIN GLARGINE (*BKC) 100 UNITS/ML SUB-Q (09:29)
[2021-07-24] MEDS: levoFLOXacin 250 MG/D5W 50 ML 250 MG/50 ML BAG 50 MG IVPB (09:46)
[2021-07-24] MEDS: PROPOFOL IV EMULSION 100 ML 18.9 MG IV CONT (09:52)
[2021-07-24] MEDS: dexmedeTOMIDine 400 MCG/100 ML 400 MCG/100 ML BAG 5.47 MCG IV CONT (10:40)
--- NOTE | 2021-07-24 11:38 | PCDIET ---
Nutrition Follow-Up Complete: Nutrition Diagnosis: Inadequate oral intake related to oral intubation as evidenced by NPO. Nutrition Goal: Patient to meet estimated nutritional needs. Goal in progress. Tube feedings currently held for breathing trial. Previously tolerating without issues. Feedings to resume if unable to extubate. Last recorded weight is 109.4 kg which is increased from last review. +I/O. Bowel Motility: No documented BM as of yet. Labs Reviewed: RBC (3.27), Hgb (10.4), Hct (32.2), Alb (2.7), Myranda Ca (8.54), PO4 (5.4), Alb (2.8) Meds Noted: NS at 75mL/hr, Levaquin, Solu Medrol, Lopressor, Albuterol, Norvasc, Lipitor, Zetia, Pepcid, Fenofibrate, Neurontin, Novolog, Lantus, Atrovent, Propofol (rate of 18.9mL/hr provides 498kcal per day) Additional Notes: No documented skin breakdown. Will continue to monitor with same goal. Nutrition Monitoring and Evaluation: Follow up every Tuesday/Tuesday. Follow daily in ICU rounds.
[2021-07-24 11:48] LABS: Glucose Point of Care 248 mg/dl (65-105)
[2021-07-24] MEDS: METOPROLOL TARTRATE 25 MG TABLET PO ×2 (12:14→21:18)
[2021-07-24] MEDS: SODIUM CHLORIDE 0.9% IV 1,000 ML 50 ML IV CONT (12:14)
[2021-07-24 13:20] LABS: Alveolar/Arterial O2 Gradient 161.7 mmHg; Base Excess ABG -4.7 mEq/l (+/-2.0); Fractional Inspired Oxygen 40 %; HCO3 ABG 20.1 mEq/l (22.0-26.0); Oxygen Saturation ABG 95.8 % (95.0-100.0); Oxyhemoglobin 93.4 % THb (90.0-100.0); PCO2 ABG 36.1 mmHg (35.0-45.0); PO2 FiO2 Ratio Arterial Blood 2.05 %; Total Hemoglobin 10.6 g/dL (12.0-18.0); pH ABG 7.363 (7.350-7.450)
[2021-07-24 13:21] LABS: Device VENTILATOR; Modified Allen's Test Pass; Site Drawn RIGHT RADIAL
[2021-07-24 13:22] LABS: Arterial Blood Gas PEEP 5 cmH2O; Arterial Blood Gas Pressure Support 8 cmH2O; Arterial Blood Gas Vent Mode SPONTANEOUS
--- NOTE | 2021-07-24 14:05 | P.PNNP_ITS ---
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 - respiratory arrest * renal ultrasound c/w with CKD; no acute obstruction * urine electrolytes suggest an element of prerenal azotemia * CPK within normal limits * adequate urine output noted * follow trend of repeat labs and UOP (2) Stage 3b chronic kidney disease: Code(s): N18.32 - Chronic kidney disease, stage 3b Status: Chronic Assessment and Plan: * baseline creatinine around 1.4 - 1.8mg/dl * presumably due to DM, HTN, vascular disease and age (3) Acute respiratory failure: Qualifiers: Respiratory failure complication: hypoxia Qualified Code(s): J96.01 - Acute respiratory failure with hypoxia Code(s): J96.00 - Acute respiratory failure, unspecified whether with hypoxia or hypercapnia Status: Acute Assessment and Plan: * due to a combination of allergic drug reaction, pneumonia, and known history of COPD + SUZANNE * remains on mechanical ventilation * wean as tolerated -- noted plans for extubation today (4) Allergic drug reaction: Qualifiers: Encounter type: subsequent encounter Qualified Code(s): T78.40XD - Allergy, unspecified, subsequent encounter Code(s): T78.40XA - Allergy, unspecified, initial encounter Status: Acute Assessment and Plan: * presumed to be secondary to ceftriaxone * became unresponsive associated with diaphoresis, respiratory distress, skin flushing and increased oxygen requirement after administration of ceftriaxone * s/p Benadryl and getting famotidine and steroidsl (5) Community acquired pneumonia: Qualifiers: Laterality: unspecified laterality Qualified Code(s): J18.9 - Pneumonia, unspecified organism Code(s): J18.9 - Pneumonia, unspecified organism Status: Acute Assessment and Plan: * as evidenced by imaging to date * on antibiotics - levaquin and azithromycin (ceftriazone has been discontinued) * follow culture data (6) Congestive heart failure: Code(s): I50.9 - Heart failure, unspecified Status: Chronic Assessment and Plan: * despite history, appears compensated/euovelmic * follow volume status closely (7) Essential hypertension: Code(s): I10 - Essential (primary) hypertension Status: Chronic Assessment and Plan: * reasonably controlled at this time * follow trend of hemodynamics (8) Diabetes: Code(s): E11.9 - Type 2 diabetes mellitus without complications Status: Chronic Assessment and Plan: * follow accuchecks * on SSI and Lantus Will continue to follow Subjective Date/time seen: 07/24/21 14:05 Remains intubated at the time of my visit but noted plans for extubation today; renal function stable if not improving; good urine output noted; remains hemodynamically stable without the need for vasopressor therapy; no other issues/events overnight or earlier this AM. Exam Narrative: General: WD/WN female in NAD Heart: normal S1 and S2; no rub Lungs: coarse and decreased at bases Abdomen: soft, nontender, nondistended, positive bowel sounds Extremities: no cyanosis or clubbing; no e
--- NOTE | 2021-07-24 14:05 | PM.PNNEP ---
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 - respiratory arrest renal ultrasound c/w with CKD; no acute obstruction urine electrolytes suggest an element of prerenal azotemia CPK within normal limits adequate urine output noted follow trend of repeat labs and UOP (2) Stage 3b chronic kidney disease: Code(s): N18.32 - Chronic kidney disease, stage 3b Status: Chronic Assessment and Plan: baseline creatinine around 1.4 - 1.8mg/dl presumably due to DM, HTN, vascular disease and age (3) Acute respiratory failure: Qualifiers: Respiratory failure complication: hypoxia Qualified Code(s): J96.01 - Acute respiratory failure with hypoxia Code(s): J96.00 - Acute respiratory failure, unspecified whether with hypoxia or hypercapnia Status: Acute Assessment and Plan: due to a combination of allergic drug reaction, pneumonia, and known history of COPD + SUZANNE remains on mechanical ventilation wean as tolerated -- noted plans for extubation today (4) Allergic drug reaction: Qualifiers: Encounter type: subsequent encounter Qualified Code(s): T78.40XD - Allergy, unspecified, subsequent encounter Code(s): T78.40XA - Allergy, unspecified, initial encounter Status: Acute Assessment and Plan: presumed to be secondary to ceftriaxone became unresponsive associated with diaphoresis, respiratory distress, skin flushing and increased oxygen requirement after administration of ceftriaxone s/p Benadryl and getting famotidine and steroidsl (5) Community acquired pneumonia: Qualifiers: Laterality: unspecified laterality Qualified Code(s): J18.9 - Pneumonia, unspecified organism Code(s): J18.9 - Pneumonia, unspecified organism Status: Acute Assessment and Plan: as evidenced by imaging to date on antibiotics - levaquin and azithromycin (ceftriazone has been discontinued) follow culture data (6) Congestive heart failure: Code(s): I50.9 - Heart failure, unspecified Status: Chronic Assessment and Plan: despite history, appears compensated/euovelmic follow volume status closely (7) Essential hypertension: Code(s): I10 - Essential (primary) hypertension Status: Chronic Assessment and Plan: reasonably controlled at this time follow trend of hemodynamics (8) Diabetes: Code(s): E11.9 - Type 2 diabetes mellitus without complications Status: Chronic Assessment and Plan: follow accuchecks on SSI and Lantus Will continue to follow Subjective Date/time seen: 07/24/21 14:05 Remains intubated at the time of my visit but noted plans for extubation today; renal function stable if not improving; good urine output noted; remains hemodynamically stable without the need for vasopressor therapy; no other issues/events overnight or earlier this AM. Exam Narrative: General: WD/WN female in NAD Heart: normal S1 and S2; no rub Lungs: coarse and decreased at bases Abdomen: soft, nontender, nondistended, positive bowel sounds Extremities: no cyanosis or clubbing; no edema Skin: warm and dry Objective Data Vital Signs Vital Signs: Vital Signs Temp Pulse Resp BP Pulse Ox 07/24/21 14:02 97 07/24/21 12:14 66 07/24/21 12:00 36.8 C 67 15 140/72 96 07/24/21 10:40 75 15 07/24/21 10:37 74 98 07/24/21 10:00 73 16 171/84 H 97 07/24/21 09:52 76 22 H 07/24/21 08:52 75 16 07/24/21 08:47 79 97 07/24/21 08:40 72 25 H 07/24/21 08:00 36.4 C 71 20 173/87 H 99
[2021-07-24 18:02] LABS: Glucose Point of Care 244 mg/dl (65-105)
[2021-07-24] MEDS: ACETAMINOPHEN 325 MG TABLET 650 MG PO (21:19)
[2021-07-24 23:49] LABS: Glucose Point of Care 194 mg/dl (65-105)
[2021-07-25] VITALS (20 sets, daily range): BP systolic 106–162; BP diastolic 57–101; PULSE 61–116; RESP 14–23; TEMP 35.8–36.5; O2SAT 93–98
[2021-07-25] MEDS: IPRATROPIUM BR 0.02% INH SOLN 0.5 MG/2.5 ML VIAL INHALATION ×3 (02:46→14:56)
[2021-07-25] MEDS: ALBUTEROL SULFATE NEB 2.5 MG/0.5 ML INH 5 MG INHALATION ×3 (02:46→14:56)
[2021-07-25 04:37] LABS: Alveolar/Arterial O2 Gradient 68.3 mmHg; Base Excess ABG -5.3 mEq/l (+/-2.0); Carboxyhemoglobin 0.2 % THb (0-2.0); Fractional Inspired Oxygen 28 %; HCO3 ABG 20.5 mEq/l (22.0-26.0); Methemoglobin ABG 0.5 %THb (0-1.5); Oxygen Saturation ABG 95.3 % (95.0-100.0); Oxyhemoglobin 93.6 % THb (90.0-100.0); PCO2 ABG 41.3 mmHg (35.0-45.0); PO2 ABG 82.6 mmHg (80.0-100.0); PO2 FiO2 Ratio Arterial Blood 2.95 %; Reduced Hemoglobin 5.7 %THb (0-5.0); Total Hemoglobin 11.3 g/dL (12.0-18.0); pH ABG 7.314 (7.350-7.450)
[2021-07-25 04:38] LABS: Device NASAL CANNULA; Site Drawn RIGHT BRACHIAL
[2021-07-25] MEDS: ACETAMINOPHEN 325 MG TABLET 650 MG PO ×4 (04:43→21:13)
[2021-07-25] MEDS: CENTRAL LINE FLUSH 10 ML IV PUSH ×6 (05:27→20:02)
[2021-07-25] MEDS: methylPREDNISolone SOD SUCC 40 MG VIAL IV PUSH (05:28)
[2021-07-25 05:37] LABS: Hematocrit 31.9 % (37.0-47.0); Hemoglobin 10.1 g/dL (12.0-15.0); Mean Corpuscular HGB Conc 31.7 g/dl (32-36); Mean Corpuscular Hemoglobin 31.4 pg (26-34); Mean Corpuscular Volume 99.1 fl (80-100); Mean Platelet Volume 9.6 fl (7.4-10.4); Platelet Count Result 220 k/mm3 (150-375); Red Blood Count 3.22 M/mm3 (4.2-5.4); Red Cell Distribution Width 15.6 % (11.5-14.5); White Blood Count 5.5 K/mm3 (4.5-10.0)
[2021-07-25 05:55] LABS: Alanine Aminotransferase 21 U/L (4-35); Albumin Level 2.8 g/dL (3.5-5.1); Alkaline Phosphatase 55 U/L (38-126); Anion Gap 5 mmol/L (8-16); Aspartate Amino Transferase 27 U/L (14-36); Bilirubin,Total 0.3 mg/dL (0.2-1.3); Blood Urea Nitrogen 54 mg/dL (7-17); Calcium 7.9 mg/dL (8.4-10.2); Carbon Dioxide 23 mmol/L (22-30); Chloride 113 mmol/L (98-107); Estimated CRCL calculation 33 ml/min; Estimated Glomerular Filt Rate 29; Glucose 197 mg/dL (65-110); Potassium 4.6 mmol/L (3.4-5.0); Sodium 141 mmol/L (137-145)
[2021-07-25] MEDS: SODIUM CHLORIDE 0.9% IV 1,000 ML 50 ML IV CONT (09:34)
--- NOTE | 2021-07-25 09:34 | P.PNIM_ITS ---
Progress Note: A&P Assessment and Plan (1) Acute respiratory failure: Qualifiers: Respiratory failure complication: hypoxia Qualified Code(s): J96.01 - Acute respiratory failure with hypoxia Code(s): J96.00 - Acute respiratory failure, unspecified whether with hypoxia or hypercapnia Status: Acute Assessment and Plan: Acute respiratory failure likely related to allergic reaction to ceftriaxone, and pneumonia -patient was intubated on 07/22 for airway protection and hypoxia -extubated on 07/24/2021, currently on 2 L nasal cannula -continue levofloxacin -continue bronchodilators -will have PT OT evaluate the patient -encourage incentive spirometry (2) Allergic drug reaction: Qualifiers: Encounter type: subsequent encounter Qualified Code(s): T78.40XD - Allergy, unspecified, subsequent encounter Code(s): T78.40XA - Allergy, unspecified, initial encounter Status: Acute Assessment and Plan: RESOLVED Patient with allergic drug reaction to ceftriaxone. Patient became unresponsive, was diaphoretic, and respiratory distress, with infuse oxygen requirements, flushing of the skin. -weaning Solu-Medrol, continue famotidine. Benadryl has been discontinued -CT scan of the soft tissues of the neck 07/22/2021: ET tube in position. Pharynx collapsed around ET and NG tubes. Nasopharyngeal fluid above this. 2. No cervical abscess or lymphadenopathy.3. Pneumonia. (3) Community acquired pneumonia: Qualifiers: Laterality: unspecified laterality Qualified Code(s): J18.9 - Pneumonia, unspecified organism Code(s): J18.9 - Pneumonia, unspecified organism Status: Acute Assessment and Plan: Patient also has community-acquired pneumonia, -continue Levaquin, azithromycin discontinued due to arrhythmias -07/22/2021 blood cultures negative x2 (4) Essential hypertension: Code(s): I10 - Essential (primary) hypertension Status: Chronic Assessment and Plan: Essential hypertension -her blood pressures have been stable, patient on metoprolol at home, increase metoprolol -continue amlodipine (5) Stage III chronic kidney disease: Code(s): N18.3 - Chronic kidney disease, stage 3 (moderate) Status: Acute Assessment and Plan: Patient with chronic kidney disease stage 3, baseline creatinine between 1.5-1.8 -patient currently at baseline creatinine -continue monitor urine output, renal function electrolytes -will have Nephrology evaluate the patient -07/23/2021 renal ultrasound: Bilateral renal cortical atrophy and 4.0 cm right renal cyst. 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: Code(s): E11.9 - Type 2 diabetes mellitus without complications; Z79.4 - long term care social worker (current) use of insulin Status: Acute Assessment and Plan: Sliding scale insulin Accu-Cheks -continue Levemir (8) Congestive heart failure: Code(s): I50.9 - Heart failure, unspecified Status: Acute Assessment and Plan: -echocardiogram from 02/23/2021 shows an LVEF systolic function mildly reduced with EF of 45-50%, moderate concentrate LV wall thickness, -patient does not seem to be volume overloaded at this time, will continue to monitor -repeat echocardiogram has been ordered (9) 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irus
[2021-07-25] MEDS: FENOFIBRATE 160 MG TABLET PO (09:35)
[2021-07-25] MEDS: ASPIRIN 81 MG CHEWABLE TABLET PO (09:35)
[2021-07-25] MEDS: METOPROLOL TARTRATE 25 MG TABLET PO ×2 (09:35→20:01)
[2021-07-25] MEDS: ATORVASTATIN 40 MG TABLET 80 MG PO (09:36)
[2021-07-25] MEDS: GABAPENTIN 300 MG CAPSULE PO ×3 (09:36→16:55)
[2021-07-25] MEDS: EZETIMIBE 10 MG TABLET PO (09:36)
[2021-07-25] MEDS: ENOXAPARIN 40 MG/0.4 ML SYRINGE SUB-Q (09:37)
[2021-07-25] MEDS: amLODIPine BESYLATE 5 MG TABLET PO (09:37)
[2021-07-25] MEDS: FAMOTIDINE 20 MG/2 ML VIAL IV PUSH ×2 (09:37→20:01)
--- NOTE | 2021-07-25 10:31 | PCSTNOTE ---
Bedside swallow study completed. Please see ST Inpatient Evaluation for details and recommendations.
[2021-07-25] MEDS: levoFLOXacin 250 MG/D5W 50 ML 250 MG/50 ML BAG 50 MG IVPB (10:38)
[2021-07-25] MEDS: INSULIN GLARGINE (*BKC) 100 UNITS/ML SUB-Q (10:39)
[2021-07-25] MEDS: INSULIN ASPART (*BKC) 100 UNITS/ML SUB-Q ×2 (12:34→17:04)
[2021-07-25] MEDS: hydrALAZINE HCL 20 MG/ML VIAL 10 MG IV PUSH (12:34)
--- NOTE | 2021-07-25 12:44 | P.PNNP_ITS ---
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 - respiratory arrest * renal ultrasound c/w with CKD; no acute obstruction * urine electrolytes suggest an element of prerenal azotemia * CPK within normal limits * adequate urine output noted * follow trend of repeat labs and UOP (2) Stage 3b chronic kidney disease: Code(s): N18.32 - Chronic kidney disease, stage 3b Status: Chronic Assessment and Plan: * baseline creatinine around 1.4 - 1.8mg/dl * presumably due to DM, HTN, vascular disease and age (3) Acute respiratory failure: Qualifiers: Respiratory failure complication: hypoxia Qualified Code(s): J96.01 - Acute respiratory failure with hypoxia Code(s): J96.00 - Acute respiratory failure, unspecified whether with hypoxia or hypercapnia Status: Acute Assessment and Plan: * due to a combination of allergic drug reaction, pneumonia, and known history of COPD + SUZANNE * extubated * follow respiratory status closely (4) Allergic drug reaction: Qualifiers: Encounter type: subsequent encounter Qualified Code(s): T78.40XD - Allergy, unspecified, subsequent encounter Code(s): T78.40XA - Allergy, unspecified, initial encounter Status: Acute Assessment and Plan: * presumed to be secondary to ceftriaxone * became unresponsive associated with diaphoresis, respiratory distress, skin flushing and increased oxygen requirement after administration of ceftriaxone * s/p Benadryl and getting famotidine and steroids (5) Community acquired pneumonia: Qualifiers: Laterality: unspecified laterality Qualified Code(s): J18.9 - Pneumonia, unspecified organism Code(s): J18.9 - Pneumonia, unspecified organism Status: Acute Assessment and Plan: * as evidenced by imaging to date * on antibiotics - on levaquin (ceftriaxone has been discontinued) * follow culture data (6) Congestive heart failure: Code(s): I50.9 - Heart failure, unspecified Status: Chronic Assessment and Plan: * despite history, appears compensated/euovelmic * follow volume status closely (7) Essential hypertension: Code(s): I10 - Essential (primary) hypertension Status: Chronic Assessment and Plan: * reasonably controlled at this time * follow trend of hemodynamics (8) Diabetes: Code(s): E11.9 - Type 2 diabetes mellitus without complications Status: Chronic Assessment and Plan: * follow accuchecks * on SSI and Lantus Will continue to follow Subjective Date/time seen: 07/25/21 12:44 Successfully extubated yesterday afternoon and remains on oxygen by nasal cannula (2L); remains hemodynamically stable; awake and alert; no apparent distress voiced at the time of my visit; no issues/events overnight or earlier this AM. Exam Narrative: General: WD/WN female in NAD Heart: normal S1 and S2; no rub Lungs: coarse breath sounds Abdomen: soft, nontender, nondistended, positive bowel sounds Extremities: no cyanosis or clubbing; no edema Skin: warm and intact Objective Data Vital Signs
--- NOTE | 2021-07-25 12:44 | PM.PNNEP ---
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 - respiratory arrest renal ultrasound c/w with CKD; no acute obstruction urine electrolytes suggest an element of prerenal azotemia CPK within normal limits adequate urine output noted follow trend of repeat labs and UOP (2) Stage 3b chronic kidney disease: Code(s): N18.32 - Chronic kidney disease, stage 3b Status: Chronic Assessment and Plan: baseline creatinine around 1.4 - 1.8mg/dl presumably due to DM, HTN, vascular disease and age (3) Acute respiratory failure: Qualifiers: Respiratory failure complication: hypoxia Qualified Code(s): J96.01 - Acute respiratory failure with hypoxia Code(s): J96.00 - Acute respiratory failure, unspecified whether with hypoxia or hypercapnia Status: Acute Assessment and Plan: due to a combination of allergic drug reaction, pneumonia, and known history of COPD + SUZANNE extubated follow respiratory status closely (4) Allergic drug reaction: Qualifiers: Encounter type: subsequent encounter Qualified Code(s): T78.40XD - Allergy, unspecified, subsequent encounter Code(s): T78.40XA - Allergy, unspecified, initial encounter Status: Acute Assessment and Plan: presumed to be secondary to ceftriaxone became unresponsive associated with diaphoresis, respiratory distress, skin flushing and increased oxygen requirement after administration of ceftriaxone s/p Benadryl and getting famotidine and steroids (5) Community acquired pneumonia: Qualifiers: Laterality: unspecified laterality Qualified Code(s): J18.9 - Pneumonia, unspecified organism Code(s): J18.9 - Pneumonia, unspecified organism Status: Acute Assessment and Plan: as evidenced by imaging to date on antibiotics - on levaquin (ceftriaxone has been discontinued) follow culture data (6) Congestive heart failure: Code(s): I50.9 - Heart failure, unspecified Status: Chronic Assessment and Plan: despite history, appears compensated/euovelmic follow volume status closely (7) Essential hypertension: Code(s): I10 - Essential (primary) hypertension Status: Chronic Assessment and Plan: reasonably controlled at this time follow trend of hemodynamics (8) Diabetes: Code(s): E11.9 - Type 2 diabetes mellitus without complications Status: Chronic Assessment and Plan: follow accuchecks on SSI and Lantus Will continue to follow Subjective Date/time seen: 07/25/21 12:44 Successfully extubated yesterday afternoon and remains on oxygen by nasal cannula (2L); remains hemodynamically stable; awake and alert; no apparent distress voiced at the time of my visit; no issues/events overnight or earlier this AM. Exam Narrative: General: WD/WN female in NAD Heart: normal S1 and S2; no rub Lungs: coarse breath sounds Abdomen: soft, nontender, nondistended, positive bowel sounds Extremities: no cyanosis or clubbing; no edema Skin: warm and intact Objective Data Vital Signs Vital Signs: Vital Signs Temp Pulse Resp BP Pulse Ox 07/25/21 09:03 78 22 H 07/25/21 08:52 77 20 98 07/25/21 08:00 35.8 C L 78 22 H 106/57 L 98 07/25/21 06:01 78 23 H 143/85 H 97 07/25/21 06:00 78 07/25/21 04:01 76 18 158/91 H 95 07/25/21 04:00 36.4 C 73 18 129/101 H 95 07/25/21 02:53 69 18 07/25/21 02:49 67 17 96 07/25/21 02:46 66 19 07/25/21 02:01 66 18 162/85 H 96 07/25/21 02:00 66 07/25/21 00:15 36.
[2021-07-25 13:00] LABS: Glucose Point of Care 201 mg/dl (65-105)
--- NOTE | 2021-07-25 13:31 | PC.NURSE ---
This patient, Sarah Alvarado, was transferred to [facility] on 07/25/21 at 1310. Personal belongings sent with patient. Report given to Amie PERDUE. Appropriate documentation sent with patient.
--- NOTE | 2021-07-25 13:32 | PC.NURSE ---
no pulse, apically,radial or on the telemetry at 1300, no respirations, pupils fixed and dilated, and brother at bed side, charge nurse making appropriate calls
--- NOTE | 2021-07-25 13:45 | PC.NURSE ---
This patient, Sarah Alvarado, was received from ICU on 07/25/21 at 1345. Patient/family oriented to unit policies and routines
[2021-07-25 14:17] LABS: Glucose Point of Care 202 mg/dl (65-105)
[2021-07-25 17:07] LABS: Glucose Point of Care 236 mg/dl (65-105)
[2021-07-25 21:17] LABS: Glucose Point of Care 216 mg/dl (65-105)
[2021-07-26] VITALS (13 sets, daily range): BP systolic 151–160; BP diastolic 70–86; PULSE 68–97; RESP 14–22; TEMP 36–36.4; O2SAT 93–100
[2021-07-26] MEDS: ALBUTEROL SULFATE NEB 2.5 MG/0.5 ML INH (00:10)
[2021-07-26] MEDS: IPRATROPIUM BR 0.02% INH SOLN 0.5 MG/2.5 ML VIAL (00:10)
[2021-07-26] MEDS: ACETAMINOPHEN 325 MG TABLET 650 MG PO ×5 (01:38→21:02)
[2021-07-26] MEDS: ALBUTEROL SULFATE NEB 2.5 MG/0.5 ML INH 5 MG INHALATION ×3 (03:23→21:33)
[2021-07-26] MEDS: IPRATROPIUM BR 0.02% INH SOLN 0.5 MG/2.5 ML VIAL INHALATION ×3 (03:23→21:33)
[2021-07-26] MEDS: CENTRAL LINE FLUSH 10 ML IV PUSH ×4 (04:59→20:27)
[2021-07-26] MEDS: SODIUM CHLORIDE 0.9% IV 1,000 ML 50 ML IV CONT ×2 (04:59→20:30)
[2021-07-26 07:04] LABS: Glucose Point of Care 151 mg/dl (65-105)
[2021-07-26] MEDS: FAMOTIDINE 20 MG/2 ML VIAL IV PUSH ×2 (08:25→20:27)
[2021-07-26] MEDS: ENOXAPARIN 40 MG/0.4 ML SYRINGE SUB-Q (08:25)
[2021-07-26] MEDS: methylPREDNISolone SOD SUCC 40 MG VIAL IV PUSH (08:25)
[2021-07-26] MEDS: INSULIN GLARGINE (*BKC) 100 UNITS/ML SUB-Q (08:25)
[2021-07-26] MEDS: amLODIPine BESYLATE 5 MG TABLET PO (08:26)
[2021-07-26] MEDS: EZETIMIBE 10 MG TABLET PO (08:26)
[2021-07-26] MEDS: FENOFIBRATE 160 MG TABLET PO (08:26)
[2021-07-26] MEDS: ASPIRIN 81 MG CHEWABLE TABLET PO (08:26)
[2021-07-26] MEDS: METOPROLOL TARTRATE 25 MG TABLET PO ×2 (08:26→20:27)
[2021-07-26] MEDS: ATORVASTATIN 40 MG TABLET 80 MG PO (08:26)
[2021-07-26] MEDS: GABAPENTIN 300 MG CAPSULE PO ×3 (08:28→17:05)
[2021-07-26] MEDS: levoFLOXacin 250 MG/D5W 50 ML 250 MG/50 ML BAG 50 MG IVPB (09:29)
[2021-07-26] MEDS: TOLNAFTATE 1% POWDER 45 GM BTL 1 APPLIC TOPICAL ×2 (09:29→20:26)
[2021-07-26 10:13] LABS: Alanine Aminotransferase 23 U/L (4-35); Alkaline Phosphatase 69 U/L (38-126); Anion Gap 6 mmol/L (8-16); Aspartate Amino Transferase 30 U/L (14-36); Bilirubin,Total 0.5 mg/dL (0.2-1.3); Blood Urea Nitrogen 42 mg/dL (7-17); Calcium 8.2 mg/dL (8.4-10.2); Carbon Dioxide 22 mmol/L (22-30); Chloride 113 mmol/L (98-107); Estimated CRCL calculation 39 ml/min; Estimated Glomerular Filt Rate 37; Glucose 213 mg/dL (65-110); Magnesium 2.9 mg/dL (1.6-2.3); Phosphorus 3.2 mg/dL (2.5-4.5); Potassium 4.3 mmol/L (3.4-5.0); Sodium 141 mmol/L (137-145)
--- NOTE | 2021-07-26 10:36 | PCPTNOTE ---
Patient declined treatment at this time due to being tired from OT.
--- NOTE | 2021-07-26 10:51 | PM.IMPN ---
Progress Note: A&P Assessment and Plan (1) Acute respiratory failure: Qualifiers: Respiratory failure complication: hypoxia Qualified Code(s): J96.01 - Acute respiratory failure with hypoxia Code(s): J96.00 - Acute respiratory failure, unspecified whether with hypoxia or hypercapnia Status: Acute Assessment and Plan: Acute respiratory failure likely related to allergic reaction to ceftriaxone, and pneumonia -patient was intubated on 07/22 for airway protection and hypoxia -extubated on 07/24/2021, currently on 2 L nasal cannula -continue levofloxacin -continue bronchodilators -will have PT OT evaluate the patient -encourage incentive spirometry (2) Allergic drug reaction: Qualifiers: Encounter type: subsequent encounter Qualified Code(s): T78.40XD - Allergy, unspecified, subsequent encounter Code(s): T78.40XA - Allergy, unspecified, initial encounter Status: Acute Assessment and Plan: RESOLVED Patient with allergic drug reaction to ceftriaxone. Patient became unresponsive, was diaphoretic, and respiratory distress, with infuse oxygen requirements, flushing of the skin. -weaning Solu-Medrol, continue famotidine. Benadryl has been discontinued -CT scan of the soft tissues of the neck 07/22/2021: ET tube in position. Pharynx collapsed around ET and NG tubes. Nasopharyngeal fluid above this. 2. No cervical abscess or lymphadenopathy.3. Pneumonia. (3) Community acquired pneumonia: Qualifiers: Laterality: unspecified laterality Qualified Code(s): J18.9 - Pneumonia, unspecified organism Code(s): J18.9 - Pneumonia, unspecified organism Status: Acute Assessment and Plan: Patient also has community-acquired pneumonia, -continue Levaquin, azithromycin discontinued due to arrhythmias -07/22/2021 blood cultures negative x2 (4) Essential hypertension: Code(s): I10 - Essential (primary) hypertension Status: Chronic Assessment and Plan: Essential hypertension -her blood pressures have been stable, patient on metoprolol at home, increase metoprolol -continue amlodipine (5) Stage III chronic kidney disease: Code(s): N18.3 - Chronic kidney disease, stage 3 (moderate) Status: Acute Assessment and Plan: Patient with chronic kidney disease stage 3, baseline creatinine between 1.5-1.8 -patient currently at baseline creatinine -continue monitor urine output, renal function electrolytes -will have Nephrology evaluate the patient -07/23/2021 renal ultrasound: Bilateral renal cortical atrophy and 4.0 cm right renal cyst. 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 Status: Acute Assessment and Plan: Sliding scale insulin Accu-Cheks -continue Levemir (8) Congestive heart failure: Code(s): I50.9 - Heart failure, unspecified Status: Acute Assessment and Plan: -echocardiogram from 02/23/2021 shows an LVEF systolic function mildly reduced with EF of 45-50%, moderate concentrate LV wall thickness, -patient does not seem to be volume overloaded at this time, will continue to monitor -repeat echocardiogram has been ordered (9) 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irus infection: Code(s): Z20.822 - Contact with and (suspected) exposure to COVID-19 Status: Acute Assessment and Plan: Diffuse infiltrates on chest x-ray and chest CTA, patient is vaccinated -SARS-CoV-2 PCR NEGATIVE -continue droplet, airborne, contact isolation/precautions (10) DVT prophylaxis: Code(s): Z29.9 - Encounter for prophyla
--- NOTE | 2021-07-26 10:54 | PCRCNOTE ---
Window of time for administration has passed. See next scheduled administration.
[2021-07-26 12:08] LABS: Glucose Point of Care 193 mg/dl (65-105)
--- NOTE | 2021-07-26 12:32 | PM.PNNEP ---
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 - respiratory arrest renal ultrasound c/w with CKD; no acute obstruction urine electrolytes suggest an element of prerenal azotemia CPK within normal limits adequate urine output noted follow trend of repeat labs and UOP (2) Stage 3b chronic kidney disease: Code(s): N18.32 - Chronic kidney disease, stage 3b Status: Chronic Assessment and Plan: baseline creatinine around 1.4 - 1.8mg/dl presumably due to DM, HTN, vascular disease and age (3) Acute respiratory failure: Qualifiers: Respiratory failure complication: hypoxia Qualified Code(s): J96.01 - Acute respiratory failure with hypoxia Code(s): J96.00 - Acute respiratory failure, unspecified whether with hypoxia or hypercapnia Status: Acute Assessment and Plan: due to a combination of allergic drug reaction, pneumonia, and known history of COPD + SUZANNE extubated and on supplemental O2 by nasal cannula follow respiratory status closely (4) Allergic drug reaction: Qualifiers: Encounter type: subsequent encounter Qualified Code(s): T78.40XD - Allergy, unspecified, subsequent encounter Code(s): T78.40XA - Allergy, unspecified, initial encounter Status: Acute Assessment and Plan: presumed to be secondary to ceftriaxone became unresponsive associated with diaphoresis, respiratory distress, skin flushing and increased oxygen requirement after administration of ceftriaxone s/p Benadryl and getting famotidine and steroids (5) Community acquired pneumonia: Qualifiers: Laterality: unspecified laterality Qualified Code(s): J18.9 - Pneumonia, unspecified organism Code(s): J18.9 - Pneumonia, unspecified organism Status: Acute Assessment and Plan: as evidenced by imaging to date on antibiotics - on levaquin (ceftriaxone has been discontinued) follow culture data (6) Congestive heart failure: Code(s): I50.9 - Heart failure, unspecified Status: Chronic Assessment and Plan: despite history, appears compensated/euovelmic follow volume status closely (7) Essential hypertension: Code(s): I10 - Essential (primary) hypertension Status: Chronic Assessment and Plan: reasonably controlled at this time follow trend of hemodynamics (8) Diabetes: Code(s): E11.9 - Type 2 diabetes mellitus without complications Status: Chronic Assessment and Plan: follow accuchecks on SSI and Lantus Will continue to follow Subjective Date/time seen: 07/26/21 12:32 Transferred out of ICU yesterday and seems to be doing reasonably well; remains on supplemental oxygen but respiratory status seems relatively stable; no other acute complaints voiced at this time; no events/issus overnight or earlier this AM; no apparent distress noted. Exam Narrative: General: WD/WN female in NAD Heart: normal S1 and S2; no rub Lungs: coarse breath sounds Abdomen: soft, nontender, nondistended, positive bowel sounds Extremities: no cyanosis or clubbing; no edema Skin: warm and intact Objective Data Vital Signs Vital Signs: Vital Signs Temp Pulse Resp BP Pulse Ox 07/26/21 12:04 68 18 07/26/21 11:46 68 18 07/26/21 11:45 93 07/26/21 08:26 84 07/26/21 08:00 97 07/26/21 05:58 36.0 C L 74 22 H 158/86 H 97 07/26/21 03:24 74 18 07/26/21 00:09 97 16 07/25/21 22:01 36.3 C L 81 20 134/75 94 07/25/21 20:01 100 07/25/21 20:00 94 07/25/21 15:07 100 20 07/25/21 14:56
--- NOTE | 2021-07-26 12:32 | P.PNNP_ITS ---
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 * renal ultrasound c/w with CKD; no acute obstruction * urine electrolytes suggest an element of prerenal azotemia * CPK within normal limits * adequate urine output noted * follow trend of repeat labs and UOP (2) Stage 3b chronic kidney disease: Code(s): N18.32 - Chronic kidney disease, stage 3b Status: Chronic Assessment and Plan: * baseline creatinine around 1.4 - 1.8mg/dl * presumably due to DM, HTN, vascular disease and age (3) Acute respiratory failure: Qualifiers: Respiratory failure complication: hypoxia Qualified Code(s): J96.01 - Acute respiratory failure with hypoxia Code(s): J96.00 - Acute respiratory failure, unspecified whether with hypoxia or hypercapnia Status: Acute Assessment and Plan: * due to a combination of allergic drug reaction, pneumonia, and known history of COPD + SUZANNE * extubated and on supplemental O2 by nasal cannula * follow respiratory status closely (4) Allergic drug reaction: Qualifiers: Encounter type: subsequent encounter Qualified Code(s): T78.40XD - Allergy, unspecified, subsequent encounter Code(s): T78.40XA - Allergy, unspecified, initial encounter Status: Acute Assessment and Plan: * presumed to be secondary to ceftriaxone * became unresponsive associated with diaphoresis, respiratory distress, skin flushing and increased oxygen requirement after administration of ceftriaxone * s/p Benadryl and getting famotidine and steroids (5) Community acquired pneumonia: Qualifiers: Laterality: unspecified laterality Qualified Code(s): J18.9 - Pneumonia, unspecified organism Code(s): J18.9 - Pneumonia, unspecified organism Status: Acute Assessment and Plan: * as evidenced by imaging to date * on antibiotics - on levaquin (ceftriaxone has been discontinued) * follow culture data (6) Congestive heart failure: Code(s): I50.9 - Heart failure, unspecified Status: Chronic Assessment and Plan: * despite history, appears compensated/euovelmic * follow volume status closely (7) Essential hypertension: Code(s): I10 - Essential (primary) hypertension Status: Chronic Assessment and Plan: * reasonably controlled at this time * follow trend of hemodynamics (8) Diabetes: Code(s): E11.9 - Type 2 diabetes mellitus without complications Status: Chronic Assessment and Plan: * follow accuchecks * on SSI and Lantus Will continue to follow Subjective Date/time seen: 07/26/21 12:32 Transferred out of ICU yesterday and seems to be doing reasonably well; remains on supplemental oxygen but respiratory status seems relatively stable; no other acute complaints voiced at this time; no events/issus overnight or earlier this AM; no apparent distress noted. Exam Narrative: General: WD/WN female in NAD Heart: normal S1 and S2; no rub Lungs: coarse breath sounds Abdomen: soft, nontender, nondistended, positive bowel sounds Extremities: no cyanosis or clubbing; no edema Skin: warm and intact
[2021-07-26 13:26] LABS: Hematocrit 34.5 % (37.0-47.0); Hemoglobin 10.6 g/dL (12.0-15.0); Mean Corpuscular HGB Conc 30.7 g/dl (32-36); Mean Corpuscular Hemoglobin 31.5 pg (26-34); Mean Corpuscular Volume 102.4 fl (80-100); Mean Platelet Volume 9.9 fl (7.4-10.4); Platelet Count Result 259 k/mm3 (150-375); Red Blood Count 3.37 M/mm3 (4.2-5.4); Red Cell Distribution Width 16.1 % (11.5-14.5)
[2021-07-26 14:24] LABS: Chloride Rand Ur <20 mmol/L (32-290); Creatinine Random Urine 73 mg/dL (20-275)
[2021-07-26 16:50] LABS: Glucose Point of Care 286 mg/dl (65-105)
[2021-07-26] MEDS: INSULIN ASPART (*BKC) 100 UNITS/ML SUB-Q (17:25)
[2021-07-26 21:06] LABS: Glucose Point of Care 268 mg/dl (65-105)
[2021-07-27] VITALS (19 sets, daily range): BP systolic 135–178; BP diastolic 82–91; PULSE 77–110; RESP 16–22; TEMP 36.1–36.7; O2SAT 94–99
[2021-07-27] MEDS: ALBUTEROL SULFATE NEB 2.5 MG/0.5 ML INH 5 MG INHALATION ×4 (02:16→20:09)
[2021-07-27] MEDS: IPRATROPIUM BR 0.02% INH SOLN 0.5 MG/2.5 ML VIAL INHALATION ×4 (02:16→20:09)
[2021-07-27] MEDS: CENTRAL LINE FLUSH 10 ML IV PUSH (06:24)
[2021-07-27] MEDS: ACETAMINOPHEN 325 MG TABLET 650 MG PO ×3 (06:24→22:04)
[2021-07-27 06:36] LABS: Hematocrit 33.2 % (37.0-47.0); Hemoglobin 10.6 g/dL (12.0-15.0); Mean Corpuscular HGB Conc 31.9 g/dl (32-36); Mean Corpuscular Hemoglobin 31.3 pg (26-34); Mean Corpuscular Volume 97.9 fl (80-100); Mean Platelet Volume 9.4 fl (7.4-10.4); Platelet Count Result 248 k/mm3 (150-375); Red Blood Count 3.39 M/mm3 (4.2-5.4); Red Cell Distribution Width 15.5 % (11.5-14.5); White Blood Count 6.7 K/mm3 (4.5-10.0)
[2021-07-27 06:53] LABS: Alanine Aminotransferase 20 U/L (4-35); Albumin Level 2.9 g/dL (3.5-5.1); Alkaline Phosphatase 62 U/L (38-126); Anion Gap 3 mmol/L (8-16); Aspartate Amino Transferase 27 U/L (14-36); Bilirubin,Total 0.4 mg/dL (0.2-1.3); Blood Urea Nitrogen 34 mg/dL (7-17); Calcium 8.3 mg/dL (8.4-10.2); Carbon Dioxide 26 mmol/L (22-30); Chloride 112 mmol/L (98-107); Estimated CRCL calculation 41 ml/min; Estimated Glomerular Filt Rate 40; Glucose 157 mg/dL (65-110); Magnesium 2.6 mg/dL (1.6-2.3); Phosphorus 3.5 mg/dL (2.5-4.5); Potassium 4.3 mmol/L (3.4-5.0); Sodium 141 mmol/L (137-145)
--- NOTE | 2021-07-27 07:00 | P.PNNP_ITS ---
Progress Note: A&P Assessment and Plan (1) LIV (acute kidney injury): Code(s): N17.9 - Acute kidney failure, unspecified Status: Acute Assessment and Plan: * Acute kidney injury * multifactorial etiology: - contrast from CTA of lungs - prerenal factors - diuretic use [employer] - allergic reaction - respiratory arrest * renal ultrasound c/w with CKD; no acute obstruction * urine electrolytes suggest an element of prerenal azotemia * CPK within normal limits * creatinine is now back to baseline. * Urine output looks good * check a renal panel in the morning (2) Stage 3b chronic kidney disease: Code(s): N18.32 - Chronic kidney disease, stage 3b Status: Chronic Assessment and Plan: * baseline creatinine around 1.4 - 1.8mg/dl * presumably due to DM, HTN, vascular disease and age (3) Acute respiratory failure: Qualifiers: Respiratory failure complication: hypoxia Qualified Code(s): J96.01 - Acute respiratory failure with hypoxia Code(s): J96.00 - Acute respiratory failure, unspecified whether with hypoxia or hype rcapnia Status: Acute Assessment and Plan: * due to a combination of allergic drug reaction, pneumonia, and known history of COPD + SUZANNE * extubated and on supplemental O2 by nasal cannula * follow respiratory status closely (4) Allergic drug reaction: Qualifiers: Encounter type: subsequent encounter Qualified Code(s): T78.40XD - Allergy, unspecified, subsequent encounter Code(s): T78.40XA - Allergy, unspecified, initial encounter Status: Acute Assessment and Plan: * presumed to be secondary to ceftriaxone * improved now that she is off of this. (5) Community acquired pneumonia: Qualifiers: Laterality: unspecified laterality Qualified Code(s): J18.9 - Pneumonia, unspecified organism Code(s): J18.9 - Pneumonia, unspecified organism Status: Acute Assessment and Plan: * as evidenced by imaging to date * on antibiotics - on levaquin (ceftriaxone has been discontinued) * Blood cultures negative. * Sputum cultures show normal oropharyngeal yoni (6) Congestive heart failure: Code(s): I50.9 - Heart failure, unspecified Status: Chronic Assessment and Plan: * despite history, appears compensated/euovelmic * follow volume status closely (7) Essential hypertension: Code(s): I10 - Essential (primary) hypertension Status: Chronic Assessment and Plan: * BP a bit high. * On metoprolol at home. * She is now also on amlodipine. * Will restart diuretics. (8) Diabetes: Code(s): E11.9 - Type 2 diabetes mellitus without complications Status: Chronic Assessment and Plan: * follow accuchecks * on SSI and Lantus Subjective Date/time seen: 07/27/21 07:00 Interval history: Sarah feels better today. She still has a cough and some posterior pharyngeal secretions she has mild shortness of breath, about the same as yesterday. Slept well. Eating okay. Bowels are okay. Exam Narrative: General: WD/WN female in NAD Heart: normal S1 and S2; no rub or gallop Lungs: coarse breath sounds Abdomen: soft, nontender, nondistended, positive bowel sounds Extremities: no edema Skin: warm and intact Objective Data Vital Signs Vital Signs:
--- NOTE | 2021-07-27 07:00 | PM.PNNEP ---
Progress Note: A&P Assessment and Plan (1) LIV (acute kidney injury): Code(s): N17.9 - Acute kidney failure, unspecified Status: Acute Assessment and Plan: Acute kidney injury multifactorial etiology: - contrast from CTA of lungs - prerenal factors - diuretic use [employer] - allergic reaction - respiratory arrest renal ultrasound c/w with CKD; no acute obstruction urine electrolytes suggest an element of prerenal azotemia CPK within normal limits creatinine is now back to baseline. Urine output looks good check a renal panel in the morning (2) Stage 3b chronic kidney disease: Code(s): N18.32 - Chronic kidney disease, stage 3b Status: Chronic Assessment and Plan: baseline creatinine around 1.4 - 1.8mg/dl presumably due to DM, HTN, vascular disease and age (3) Acute respiratory failure: Qualifiers: Respiratory failure complication: hypoxia Qualified Code(s): J96.01 - Acute respiratory failure with hypoxia Code(s): J96.00 - Acute respiratory failure, unspecified whether with hypoxia or hypercapnia Status: Acute Assessment and Plan: due to a combination of allergic drug reaction, pneumonia, and known history of COPD + SUZANNE extubated and on supplemental O2 by nasal cannula follow respiratory status closely (4) Allergic drug reaction: Qualifiers: Encounter type: subsequent encounter Qualified Code(s): T78.40XD - Allergy, unspecified, subsequent encounter Code(s): T78.40XA - Allergy, unspecified, initial encounter Status: Acute Assessment and Plan: presumed to be secondary to ceftriaxone improved now that she is off of this. (5) Community acquired pneumonia: Qualifiers: Laterality: unspecified laterality Qualified Code(s): J18.9 - Pneumonia, unspecified organism Code(s): J18.9 - Pneumonia, unspecified organism Status: Acute Assessment and Plan: as evidenced by imaging to date on antibiotics - on levaquin (ceftriaxone has been discontinued) Blood cultures negative. Sputum cultures show normal oropharyngeal yoni (6) Congestive heart failure: Code(s): I50.9 - Heart failure, unspecified Status: Chronic Assessment and Plan: despite history, appears compensated/euovelmic follow volume status closely (7) Essential hypertension: Code(s): I10 - Essential (primary) hypertension Status: Chronic Assessment and Plan: BP a bit high. On metoprolol at home. She is now also on amlodipine. Will restart diuretics. (8) Diabetes: Code(s): E11.9 - Type 2 diabetes mellitus without complications Status: Chronic Assessment and Plan: follow accuchecks on SSI and Lantus Subjective Date/time seen: 07/27/21 07:00 Interval history: Sarah feels better today. She still has a cough and some posterior pharyngeal secretions she has mild shortness of breath, about the same as yesterday. Slept well. Eating okay. Bowels are okay. Exam Narrative: General: WD/WN female in NAD Heart: normal S1 and S2; no rub or gallop Lungs: coarse breath sounds Abdomen: soft, nontender, nondistended, positive bowel sounds Extremities: no edema Skin: warm and intact Objective Data Vital Signs Vital Signs: Vital Signs - 24 hr 07/26/21 08:00 07/26/21 08:26 07/26/21 11:45 Temperature Pulse Rate 84 Respiratory Rate Blood Pressure Pulse Oximetry 97 93 07/26/21 11:46 07/26/21 12:04 07/26/21 14:40 Temperature 36.4 C Pulse Rate 68 68 76 Respiratory Rate 18 18 16 Blood Pressure 151/75 H Pulse Oximetry 100 07/26/21 20:00 07/26/21 20:27 07/26/21 21:33 Temperature Pulse Rate 94 78 94 Respiratory Rate 14 14 Blood Pressure Pulse Oximetry 100 07/26/21 22:00 07/27/21 02:16
[2021-07-27 07:02] LABS: Glucose Point of Care 137 mg/dl (65-105)
[2021-07-27] MEDS: FENOFIBRATE 160 MG TABLET PO (09:46)
[2021-07-27] MEDS: GABAPENTIN 300 MG CAPSULE PO ×3 (09:46→16:27)
[2021-07-27] MEDS: levoFLOXacin 250 MG/D5W 50 ML 250 MG/50 ML BAG 50 MG IVPB (09:46)
[2021-07-27] MEDS: ASPIRIN 81 MG CHEWABLE TABLET PO (09:47)
[2021-07-27] MEDS: methylPREDNISolone SOD SUCC 40 MG VIAL IV PUSH (09:47)
[2021-07-27] MEDS: ENOXAPARIN 40 MG/0.4 ML SYRINGE SUB-Q (09:47)
[2021-07-27] MEDS: EZETIMIBE 10 MG TABLET PO (09:47)
[2021-07-27] MEDS: amLODIPine BESYLATE 5 MG TABLET PO ×2 (09:47→12:51)
[2021-07-27] MEDS: ATORVASTATIN 40 MG TABLET 80 MG PO (09:47)
[2021-07-27] MEDS: FAMOTIDINE 20 MG/2 ML VIAL IV PUSH ×2 (09:47→20:22)
[2021-07-27] MEDS: METOPROLOL TARTRATE 25 MG TABLET PO ×2 (09:47→20:22)
[2021-07-27] MEDS: FUROSEMIDE 20 MG TABLET PO (09:48)
[2021-07-27] MEDS: TOLNAFTATE 1% POWDER 45 GM BTL 1 APPLIC TOPICAL ×2 (09:48→20:25)
[2021-07-27] MEDS: INSULIN GLARGINE (*BKC) 100 UNITS/ML SUB-Q (09:52)
--- NOTE | 2021-07-27 10:53 | PCNFU ---
Nutrition Follow-Up Complete: Inadequate oral intake related to oral intubation as evidenced by NPO. Goal: Patient to meet estimated nutritional needs. Patient is progressing towards goal. We will continue current goal. Pt current nutrition is DBCC. Last recorded weight is 106.1 kg, up from 105 kg on admit. Bowel Motility:+BM reported 07/26 Labs Reviewed:Glu 157,Alb 2.9,BUN 34,Cr 1.3,GFR 40 Meds Noted:Lantus,Zetia,Pepcid,Lipitor, Lovenox. Additional Notes: Nutrition follow up. Patient consuming 50% of oral intake today. 07/25-MBS performed recommend regular diet consistencies. Agree with diet orders. Monitoring:Follow up every 5 days.
--- NOTE | 2021-07-27 11:23 | PM.IMPN ---
Progress Note: A&P Assessment and Plan (1) Acute respiratory failure: Qualifiers: Respiratory failure complication: hypoxia Qualified Code(s): J96.01 - Acute respiratory failure with hypoxia Code(s): J96.00 - Acute respiratory failure, unspecified whether with hypoxia or hypercapnia Status: Acute Assessment and Plan: Related to anaphylactic shock from an allergic reaction to ceftriaxone. Patient also has pneumonia and hx of COPD. CT neck did show pharynx collapsing around the ETT. She was negative for COVID-19. She was intubated. Ceftriaxone was discontinued and Levaquin started. Pateitn did well and able to extubated. SHe is stable on 2L. Wean O2 off. Remove central line once peripheral IV placed. (2) Allergic drug reaction: Qualifiers: Encounter type: subsequent encounter Qualified Code(s): T78.40XD - Allergy, unspecified, subsequent encounter Code(s): T78.40XA - Allergy, unspecified, initial encounter Status: Acute Assessment and Plan: Patient had a severe allergic reaction to ceftriaxone in the ED. The patient became unresponsive and diaphoretic with increased respiratory distress. The patient required intubation. Patient received Solu-Medrol, Benadryl IV and Pepcid IV. CT soft tissue of neck showing ET tube in position with the pharynx collapsed around ET and NG tubes. Patient did well and able to be extubated. Wean O2 as toelrated. Steroids stopped today. (3) Community acquired pneumonia: Qualifiers: Laterality: unspecified laterality Qualified Code(s): J18.9 - Pneumonia, unspecified organism Code(s): J18.9 - Pneumonia, unspecified organism Status: Acute Assessment and Plan: CTA chest showing consolidation in the posterior segment of the left upper lobe consistent with pneumonia with additional bilateral regions of small central lobular nodules and groundglass opacities favoring CAP. Started on Rocephin and azithromycin but Rocephin stopped due severre allergic reaction. Changed to Levaquin. Sputum and Blood Cx NGTD. Continue neb treatments. Continue Levaquin. Wean O2 as toelrated. Encourage IS use (4) Atrial fibrillation: Code(s): I48.91 - Unspecified atrial fibrillation Status: Acute Assessment and Plan: EKGs reviewed. Possibly AFib. Patient has known Lt BBB and frequent PACs. Tele showing probably MAT as well. Metoprolol resumed. [id number] with HAS-BLED 3. Could be transient related to above. Trop nup to 0.048 felt related to the LIV and AFib/tachycardia. Continue metoprolol. Echo as mentioned below. Will place on tele. Add Eliquis. (5) Essential hypertension: Code(s): I10 - Essential (primary) hypertension Status: Chronic Assessment and Plan: Patient's blood pressure was reviewed on 07/27 Blood pressure more elevated now. Will continue current medications. Continue metoprolol. Advance Norvasc. (6) Stage III chronic kidney disease: Code(s): N18.3 - Chronic kidney disease, stage 3 (moderate) Status: Acute Assessment and Plan: Cr 1.4-1.9 range chronically. Cr 1.6 on admission and climbed to 1.9. Renal US bilateral renal cortical atrophy and 4.0 cm right renal cyst. No hydronephrosis. Cr was still within her baseline but she was hypotensive in the ED (70/38) and received contrast so suspect most likely mild ATN. Cr better now at 1.3. Continue to monitor. (7) COPD exacerbation: Code(s): J44.1 - Chronic obstructive pulmonary disease with (acute) exacerbation Status: Acute Assessment and Plan: CTA chest on admission showing mild emphysema with mild enlargement of the central pulmonary arteries consistent with pulmonary arterial hypertension. No wheezing. Patient currently on steroids and nebulizer treatments. Steroids stopped today. (8) Insulin dependent type 2 diabetes mellitus: Code(s): E11.9 - Type 2 diabetes mellitus
[2021-07-27 12:17] LABS: Glucose Point of Care 206 mg/dl (65-105)
[2021-07-27] MEDS: INSULIN ASPART (*BKC) 100 UNITS/ML SUB-Q ×2 (12:20→16:27)
[2021-07-27] MEDS: APIXABAN 5 MG TABLET PO ×2 (12:51→20:22)
[2021-07-27] MEDS: NEOMYCIN/POLYMYXIN/BACITRACIN OINTMENT PACKET 1 PACKET (12:51)
[2021-07-27 17:23] LABS: Glucose Point of Care 308 mg/dl (65-105)
[2021-07-27 20:42] LABS: Glucose Point of Care 296 mg/dl (65-105)
[2021-07-28] VITALS (19 sets, daily range): BP systolic 146–171; BP diastolic 86–97; PULSE 76–106; RESP 16–22; TEMP 36.1–36.3; O2SAT 93–98
[2021-07-28] MEDS: IPRATROPIUM BR 0.02% INH SOLN 0.5 MG/2.5 ML VIAL INHALATION ×4 (03:05→21:30)
[2021-07-28] MEDS: ALBUTEROL SULFATE NEB 2.5 MG/0.5 ML INH 5 MG INHALATION ×4 (03:05→21:30)
[2021-07-28] MEDS: ACETAMINOPHEN 325 MG TABLET 650 MG PO (05:28)
[2021-07-28 05:44] LABS: Hematocrit 33.8 % (37.0-47.0); Hemoglobin 10.8 g/dL (12.0-15.0); Mean Corpuscular Hemoglobin 30.9 pg (26-34); Mean Corpuscular Volume 96.6 fl (80-100); Mean Platelet Volume 9.6 fl (7.4-10.4); Platelet Count Result 266 k/mm3 (150-375); Red Cell Distribution Width 15.2 % (11.5-14.5); White Blood Count 6.2 K/mm3 (4.5-10.0)
[2021-07-28 05:56] LABS: Albumin Level 2.9 g/dL (3.5-5.1); Anion Gap 4 mmol/L (8-16); Blood Urea Nitrogen 35 mg/dL (7-17); Calcium 8.4 mg/dL (8.4-10.2); Carbon Dioxide 27 mmol/L (22-30); Chloride 108 mmol/L (98-107); Estimated CRCL calculation 41 ml/min; Estimated Glomerular Filt Rate 40; Glucose 173 mg/dL (65-110); Phosphorus 3.7 mg/dL (2.5-4.5); Potassium 4.3 mmol/L (3.4-5.0); Sodium 139 mmol/L (137-145)
[2021-07-28 06:05] LABS: Magnesium 2.3 mg/dL (1.6-2.3)
[2021-07-28 06:54] LABS: Glucose Point of Care 147 mg/dl (65-105)
--- NOTE | 2021-07-28 07:05 | P.PNNP_ITS ---
Progress Note: A&P Assessment and Plan (1) LIV (acute kidney injury): Code(s): N17.9 - Acute kidney failure, unspecified Status: Acute Assessment and Plan: * Acute kidney injury * resolved * creatinine is now back to baseline. * Urine output looks good * check a renal panel in the morning (2) Stage 3b chronic kidney disease: Code(s): N18.32 - Chronic kidney disease, stage 3b Status: Chronic Assessment and Plan: * baseline creatinine around 1.4 - 1.8mg/dl * presumably due to DM, HTN, vascular disease and age (3) Acute respiratory failure: Qualifiers: Respiratory failure complication: hypoxia Qualified Code(s): J96.01 - Acute respiratory failure with hypoxia Code(s): J96.00 - Acute respiratory failure, unspecified whether with hypoxia or hypercapnia Status: Acute Assessment and Plan: * due to a combination of allergic drug reaction, pneumonia, and known history of COPD + SUZANNE * off oxygen, on room air. O2 sats 98%. * follow respiratory status closely (4) Allergic drug reaction: Qualifiers: Encounter type: subsequent encounter Qualified Code(s): T78.40XD - Allergy, unspecified, subsequent encounter Code(s): T78.40XA - Allergy, unspecified, initial encounter Status: Acute Assessment and Plan: * presumed to be secondary to ceftriaxone * improved now that she is off of this. (5) Community acquired pneumonia: Qualifiers: Laterality: unspecified laterality Qualified Code(s): J18.9 - Pn eumonia, unspecified organism Code(s): J18.9 - Pneumonia, unspecified organism Status: Acute Assessment and Plan: * as evidenced by imaging to date * on levaquin (ceftriaxone has been discontinued) * Blood cultures negative. * Sputum cultures show normal oropharyngeal yoni (6) Congestive heart failure: Code(s): I50.9 - Heart failure, unspecified Status: Chronic Assessment and Plan: * despite history, appears compensated/euovelmic * follow volume status closely (7) Essential hypertension: Code(s): I10 - Essential (primary) hypertension Status: Chronic Assessment and Plan: * BP a bit high. * On metoprolol at home. * She is now also on amlodipine as well as home dose of furosemide (8) Diabetes: Code(s): E11.9 - Type 2 diabetes mellitus without complications Status: Chronic Assessment and Plan: * on SSI and Lantus Subjective Date/time seen: 07/28/21 07:05 Interval history: Sarah feels better today. She still has a cough it's driving me crazy breathing is about the same. Slept well. The food was horrible yesterday. She is starving today. She i s looking forward to pancakes and sausage today. Exam Narrative: General: WD/WN female in NAD Heart: normal S1 and S2; no rub Lungs: coarse breath sounds Abdomen: soft, nontender, nondistended, positive bowel sounds Extremities: no edema Skin: No rash Objective Data Vital Signs Vital Signs: Vital Signs - 24 hr 07/27/21 08:00 07/27/21 08:38 07/27/21 08:48 Temperature Pulse Rate 96 101 H Respiratory Rate 20 20 Blood Pressure Pulse Oximetry 97 94 94 07/27/21 09:47 07/27/21 12:03 07/27/21 14:38 Temperature Pulse Rate 87 87
--- NOTE | 2021-07-28 07:05 | PM.PNNEP ---
Progress Note: A&P Assessment and Plan (1) LIV (acute kidney injury): Code(s): N17.9 - Acute kidney failure, unspecified Status: Acute Assessment and Plan: Acute kidney injury resolved creatinine is now back to baseline. Urine output looks good check a renal panel in the morning (2) Stage 3b chronic kidney disease: Code(s): N18.32 - Chronic kidney disease, stage 3b Status: Chronic Assessment and Plan: baseline creatinine around 1.4 - 1.8mg/dl presumably due to DM, HTN, vascular disease and age (3) Acute respiratory failure: Qualifiers: Respiratory failure complication: hypoxia Qualified Code(s): J96.01 - Acute respiratory failure with hypoxia Code(s): J96.00 - Acute respiratory failure, unspecified whether with hypoxia or hypercapnia Status: Acute Assessment and Plan: due to a combination of allergic drug reaction, pneumonia, and known history of COPD + SUZANNE off oxygen, on room air. O2 sats 98%. follow respiratory status closely (4) Allergic drug reaction: Qualifiers: Encounter type: subsequent encounter Qualified Code(s): T78.40XD - Allergy, unspecified, subsequent encounter Code(s): T78.40XA - Allergy, unspecified, initial encounter Status: Acute Assessment and Plan: presumed to be secondary to ceftriaxone improved now that she is off of this. (5) Community acquired pneumonia: Qualifiers: Laterality: unspecified laterality Qualified Code(s): J18.9 - Pneumonia, unspecified organism Code(s): J18.9 - Pneumonia, unspecified organism Status: Acute Assessment and Plan: as evidenced by imaging to date on levaquin (ceftriaxone has been discontinued) Blood cultures negative. Sputum cultures show normal oropharyngeal yoni (6) Congestive heart failure: Code(s): I50.9 - Heart failure, unspecified Status: Chronic Assessment and Plan: despite history, appears compensated/euovelmic follow volume status closely (7) Essential hypertension: Code(s): I10 - Essential (primary) hypertension Status: Chronic Assessment and Plan: BP a bit high. On metoprolol at home. She is now also on amlodipine as well as home dose of furosemide (8) Diabetes: Code(s): E11.9 - Type 2 diabetes mellitus without complications Status: Chronic Assessment and Plan: on SSI and Lantus Subjective Date/time seen: 07/28/21 07:05 Interval history: Sarah feels better today. She still has a cough it's driving me crazy breathing is about the same. Slept well. The food was horrible yesterday. She is starving today. She is looking forward to pancakes and sausage today. Exam Narrative: General: WD/WN female in NAD Heart: normal S1 and S2; no rub Lungs: coarse breath sounds Abdomen: soft, nontender, nondistended, positive bowel sounds Extremities: no edema Skin: No rash Objective Data Vital Signs Vital Signs: Vital Signs - 24 hr 07/27/21 08:00 07/27/21 08:38 07/27/21 08:48 Temperature Pulse Rate 96 101 H Respiratory Rate 20 20 Blood Pressure Pulse Oximetry 97 94 94 07/27/21 09:47 07/27/21 12:03 07/27/21 14:38 Temperature Pulse Rate 87 87 83 Respiratory Rate 20 20 Blood Pressure 166/89 H Pulse Oximetry 97 07/27/21 14:50 07/27/21 15:14 07/27/21 15:34 Temperature 36.7 C Pulse Rate 87 105 H 97 Respiratory Rate 20 20 Blood Pressure 176/91 H Pulse Oximetry 94 07/27/21 16:00 07/27/21 20:00 07/27/21 20:10 Temperature Pulse Rate 107 H 78 86 Respiratory Rate 20 20 Blood Pressure Pulse Oximetry 94 07/27/21 20:17 07/27/21 20:21 07/27/21 20:22 Temperature Pulse Rate 92 92 78 Respiratory Rate 20 Blood Pressure Pulse Oximetry 94 07/27/21 21:51 07/28/21 00:00 07/28/21 03:06 Temperature 36.4 C L Pulse
[2021-07-28] MEDS: ATORVASTATIN 40 MG TABLET 80 MG PO (08:04)
[2021-07-28] MEDS: GABAPENTIN 300 MG CAPSULE PO ×3 (08:04→16:29)
[2021-07-28] MEDS: METOPROLOL TARTRATE 25 MG TABLET PO ×2 (08:04→21:02)
[2021-07-28] MEDS: FENOFIBRATE 160 MG TABLET PO (08:04)
[2021-07-28] MEDS: FUROSEMIDE 20 MG TABLET PO (08:04)
[2021-07-28] MEDS: EZETIMIBE 10 MG TABLET PO (08:04)
[2021-07-28] MEDS: APIXABAN 5 MG TABLET PO ×2 (08:05→21:02)
[2021-07-28] MEDS: FAMOTIDINE 20 MG/2 ML VIAL IV PUSH ×2 (08:05→21:01)
[2021-07-28] MEDS: amLODIPine BESYLATE 5 MG TABLET 10 MG PO (08:05)
[2021-07-28] MEDS: levoFLOXacin 250 MG/D5W 50 ML 250 MG/50 ML BAG 50 MG IVPB (08:07)
[2021-07-28] MEDS: TOLNAFTATE 1% POWDER 45 GM BTL 1 APPLIC TOPICAL ×2 (08:08→21:03)
[2021-07-28] MEDS: ASPIRIN 81 MG CHEWABLE TABLET PO (08:08)
[2021-07-28] MEDS: INSULIN GLARGINE (*BKC) 100 UNITS/ML SUB-Q (08:12)
[2021-07-28 11:41] LABS: Glucose Point of Care 203 mg/dl (65-105)
[2021-07-28] MEDS: INSULIN ASPART (*BKC) 100 UNITS/ML SUB-Q ×2 (11:42→16:29)
--- NOTE | 2021-07-28 12:32 | PM.IMPN ---
Progress Note: A&P Assessment and Plan (1) Acute respiratory failure: Qualifiers: Respiratory failure complication: hypoxia Qualified Code(s): J96.01 - Acute respiratory failure with hypoxia Code(s): J96.00 - Acute respiratory failure, unspecified whether with hypoxia or hypercapnia Status: Acute Assessment and Plan: Related to anaphylactic shock from an allergic reaction to ceftriaxone. Patient also has pneumonia and hx of COPD. CT neck did show pharynx collapsing around the ETT. She was negative for COVID-19. She was intubated. Ceftriaxone was discontinued and Levaquin started. Pateitn did well and able to extubated. SHe is stable on 2L. Wean O2 off. Removed central line Remains on Levaquin which will be continued (2) Allergic drug reaction: Qualifiers: Encounter type: subsequent encounter Qualified Code(s): T78.40XD - Allergy, unspecified, subsequent encounter Code(s): T78.40XA - Allergy, unspecified, initial encounter Status: Acute Assessment and Plan: Patient had a severe allergic reaction to ceftriaxone in the ED. The patient became unresponsive and diaphoretic with increased respiratory distress. The patient required intubation. Patient received Solu-Medrol, Benadryl IV and Pepcid IV. CT soft tissue of neck showing ET tube in position with the pharynx collapsed around ET and NG tubes. Patient did well and able to be extubated. Wean O2 as toelrated. Steroids stopped (3) Community acquired pneumonia: Qualifiers: Laterality: unspecified laterality Qualified Code(s): J18.9 - Pneumonia, unspecified organism Code(s): J18.9 - Pneumonia, unspecified organism Status: Acute Assessment and Plan: CTA chest showing consolidation in the posterior segment of the left upper lobe consistent with pneumonia with additional bilateral regions of small central lobular nodules and groundglass opacities favoring CAP. Started on Rocephin and azithromycin but Rocephin stopped due severre allergic reaction. Changed to Levaquin. Sputum and Blood Cx NGTD. Continue neb treatments. Continue Levaquin. Wean O2 as toelrated. Encourage IS use (4) Atrial fibrillation: Code(s): I48.91 - Unspecified atrial fibrillation Status: Acute Assessment and Plan: EKGs reviewed. Possibly AFib. Patient has known Lt BBB and frequent PACs. Tele showing probably MAT as well. Metoprolol resumed. [id number] 8 with HAS-BLED 3. Could be transient related to above. Trop nup to 0.048 felt related to the LIV and AFib/tachycardia. Continue metoprolol. Echo as mentioned below. Will place on tele. Started on Eliquis for stroke prophylaxis due to atrial fibrillation (5) Essential hypertension: Code(s): I10 - Essential (primary) hypertension Status: Chronic Assessment and Plan: Patient's blood pressure was reviewed on 07/27 Blood pressure more elevated now. Will continue current medications. Continue metoprolol. Advance Norvasc. (6) Stage III chronic kidney disease: Code(s): N18.3 - Chronic kidney disease, stage 3 (moderate) Status: Acute Assessment and Plan: Cr 1.4-1.9 range chronically. Cr 1.6 on admission and climbed to 1.9. Renal US bilateral renal cortical atrophy and 4.0 cm right renal cyst. No hydronephrosis. Cr was still within her baseline but she was hypotensive in the ED (70/38) and received contrast so suspect most likely mild ATN. Cr better now at 1.3. Continue to monitor. Will remove Hernandez catheter today (7) COPD exacerbation: Code(s): J44.1 - Chronic obstructive pulmonary disease with (acute) exacerbation Status: Acute Assessment and Plan: CTA chest on admission showing mild emphysema with mild enlargement of the central pulmonary arteries consistent with pulmonary arterial hypertension. No wheezing. Patient currently on steroids and nebulizer treatments. Steroids stopped (8) Insulin
[2021-07-28 16:33] LABS: Glucose Point of Care 274 mg/dl (65-105)
[2021-07-28 21:22] LABS: Glucose Point of Care 251 mg/dl (65-105)
[2021-07-29] VITALS (16 sets, daily range): BP systolic 115–145; BP diastolic 73–95; PULSE 66–104; RESP 17–20; TEMP 36.1–36.8; O2SAT 95–99
[2021-07-29] MEDS: ACETAMINOPHEN 325 MG TABLET 650 MG PO ×4 (01:46→20:46)
[2021-07-29 05:51] LABS: Basophils Percent Auto 0.3 % (0.2-1.2); Eosinophils Absolute Auto 0.2 K/mm3 (0-0.3); Eosinophils Percent Auto 3.1 % (0-4.4); Hematocrit 32.6 % (37.0-47.0); Hemoglobin 10.3 g/dL (12.0-15.0); Immature Granulocyte Absolute 0.07 K/mm3 (0.00-0.031); Immature Granulocyte Percent A 1.1 % (0-0.5); Lymphocytes Absolute Auto 1.16 K/mm3 (0.9-3.2); Lymphocytes Percent Auto 18.9 % (18.3-44.2); Mean Corpuscular HGB Conc 31.6 g/dl (32-36); Mean Corpuscular Hemoglobin 30.6 pg (26-34); Mean Corpuscular Volume 96.7 fl (80-100); Mean Platelet Volume 9.9 fl (7.4-10.4); Monocytes Absolute Auto 0.5 K/mm3 (0.1-0.6); Monocytes Percent Auto 7.3 % (2.6-8.5); Neutrophils Absolute Auto 4.2 K/mm3 (1.3-6.7); Neutrophils Percent Auto 69.3 % (45.5-73.1); Platelet Count Result 239 k/mm3 (150-375); Red Blood Count 3.37 M/mm3 (4.2-5.4); Red Cell Distribution Width 15.1 % (11.5-14.5); White Blood Count 6.1 K/mm3 (4.5-10.0)
[2021-07-29 06:15] LABS: Anion Gap 5 mmol/L (8-16); Blood Urea Nitrogen 42 mg/dL (7-17); Calcium 8.3 mg/dL (8.4-10.2); Carbon Dioxide 26 mmol/L (22-30); Chloride 107 mmol/L (98-107); Estimated CRCL calculation 40 ml/min; Estimated Glomerular Filt Rate 40; Glucose 200 mg/dL (65-110); Potassium 4.2 mmol/L (3.4-5.0); Sodium 138 mmol/L (137-145)
--- NOTE | 2021-07-29 07:29 | P.PNNP_ITS ---
Progress Note: A&P Assessment and Plan (1) LIV (acute kidney injury): Code(s): N17.9 - Acute kidney failure, unspecified Status: Acute Assessment and Plan: * Acute kidney injury * resolved * creatinine is now back to baseline. * Urine output looks good * okay for discharge from the renal stand * she can follow up in my office at her regularly scheduled time (2) Stage 3b chronic kidney disease: Code(s): N18.32 - Chronic kidney disease, stage 3b Status: Chronic Assessment and Plan: * baseline creatinine around 1.4 - 1.8mg/dl * presumably due to DM, HTN, vascular disease and age (3) Acute respiratory failure: Qualifiers: Respiratory failure complication: hypoxia Qualified Code(s): J96.01 - Acute respiratory failure with hypoxia Code(s): J96.00 - Acute respiratory failure, unspecified whether with hypoxia or hypercapnia Status: Acute Assessment and Plan: * due to a combination of allergic drug reaction, pneumonia, and known history of COPD + SUZANNE * off oxygen, on room air. O2 sats 98%. * follow respiratory status closely (4) Allergic drug reaction: Qualifiers: Encounter type: subsequent encounter Qualified Code(s): T78.40XD - Allergy, unspecified, subsequent encounter Code(s): T78.40XA - Allergy, unspecified, initial encounter Status: Acute Assessment and Plan: * presumed to be secondary to ceftriaxone * improved now that she is off of this. (5) Community acquired pneumonia: Qualifiers: Laterality: unspecified laterality Qualified Code(s): J18.9 - Pneumonia, unspecified organism Code(s): J18.9 - Pneumonia, unspecified organism Status: Acute Assessment and Plan: * as evidenced by imaging to date * on levaquin (ceftriaxone has been discontinued) * Blood cultures negative. * Sputum cultures show normal oropharyngeal yoni (6) Congestive heart failure: Code(s): I50.9 - Heart failure, unspecified Status: Chronic Assessment and Plan: * volume status looks okay. * She is back on her home dose of furosemide (7) Essential hypertension: Code(s): I10 - Essential (primary) hypertension Status: Chronic Assessment and Plan: * BP is good * On metoprolol and amlodipine as well as home dose of furosemide (8) Diabetes: Code(s): E11.9 - Type 2 diabetes mellitus without complications Status: Chronic Assessment and Plan: * on SSI and Lantus Subjective Date/time seen: 07/29/21 07:29 Interval history: Sarah feels better today. Cough is about the same. She is tired of being in bed she is eager to go to rehab at [place] Exam Narrative: General: WD/WN female in NAD Heart: normal S1 and S2; no rub or gallop Lungs: coarse breath sounds Abdomen: soft, nontender, nondistended, positive bowel sounds Extremities: no edema Skin: No rash or subQ nodules Objective Data Vital Signs Vital Signs: Vital Signs - 24 hr 07/28/21 08:00 07/28/21 08:04 07/28/21 08:18 Temperature Pulse Rate 101 H 102 H 90 Respiratory Rate 20 Blood Pressure Pulse Oximetry 96 07/28/21 08:28 07/28/21 12:00 07/28/21 13:50 Temperature 36.3 C L Pulse Rate 87 106 H 98 Respiratory Rate 20 18
--- NOTE | 2021-07-29 07:29 | PM.PNNEP ---
Progress Note: A&P Assessment and Plan (1) LIV (acute kidney injury): Code(s): N17.9 - Acute kidney failure, unspecified Status: Acute Assessment and Plan: Acute kidney injury resolved creatinine is now back to baseline. Urine output looks good okay for discharge from the renal stand she can follow up in my office at her regularly scheduled time (2) Stage 3b chronic kidney disease: Code(s): N18.32 - Chronic kidney disease, stage 3b Status: Chronic Assessment and Plan: baseline creatinine around 1.4 - 1.8mg/dl presumably due to DM, HTN, vascular disease and age (3) Acute respiratory failure: Qualifiers: Respiratory failure complication: hypoxia Qualified Code(s): J96.01 - Acute respiratory failure with hypoxia Code(s): J96.00 - Acute respiratory failure, unspecified whether with hypoxia or hypercapnia Status: Acute Assessment and Plan: due to a combination of allergic drug reaction, pneumonia, and known history of COPD + SUZANNE off oxygen, on room air. O2 sats 98%. follow respiratory status closely (4) Allergic drug reaction: Qualifiers: Encounter type: subsequent encounter Qualified Code(s): T78.40XD - Allergy, unspecified, subsequent encounter Code(s): T78.40XA - Allergy, unspecified, initial encounter Status: Acute Assessment and Plan: presumed to be secondary to ceftriaxone improved now that she is off of this. (5) Community acquired pneumonia: Qualifiers: Laterality: unspecified laterality Qualified Code(s): J18.9 - Pneumonia, unspecified organism Code(s): J18.9 - Pneumonia, unspecified organism Status: Acute Assessment and Plan: as evidenced by imaging to date on levaquin (ceftriaxone has been discontinued) Blood cultures negative. Sputum cultures show normal oropharyngeal yoni (6) Congestive heart failure: Code(s): I50.9 - Heart failure, unspecified Status: Chronic Assessment and Plan: volume status looks okay. She is back on her home dose of furosemide (7) Essential hypertension: Code(s): I10 - Essential (primary) hypertension Status: Chronic Assessment and Plan: BP is good On metoprolol and amlodipine as well as home dose of furosemide (8) Diabetes: Code(s): E11.9 - Type 2 diabetes mellitus without complications Status: Chronic Assessment and Plan: on SSI and Lantus Subjective Date/time seen: 07/29/21 07:29 Interval history: Sarah feels better today. Cough is about the same. She is tired of being in bed she is eager to go to rehab at [place] Exam Narrative: General: WD/WN female in NAD Heart: normal S1 and S2; no rub or gallop Lungs: coarse breath sounds Abdomen: soft, nontender, nondistended, positive bowel sounds Extremities: no edema Skin: No rash or subQ nodules Objective Data Vital Signs Vital Signs: Vital Signs - 24 hr 07/28/21 08:00 07/28/21 08:04 07/28/21 08:18 Temperature Pulse Rate 101 H 102 H 90 Respiratory Rate 20 Blood Pressure Pulse Oximetry 96 07/28/21 08:28 07/28/21 12:00 07/28/21 13:50 Temperature 36.3 C L Pulse Rate 87 106 H 98 Respiratory Rate 20 18 Blood Pressure 171/97 H Pulse Oximetry 96 93 07/28/21 14:38 07/28/21 14:47 07/28/21 16:28 Temperature Pulse Rate 89 90 99 Respiratory Rate 20 20 Blood Pressure Pulse Oximetry 07/28/21 20:00 07/28/21 20:46 07/28/21 21:02 Temperature 36.1 C L Pulse Rate 106 H 103 H 103 H Respiratory Rate 22 H Blood Pressure 146/86 H Pulse Oximetry 96 96 07/28/21 21:31 07/29/21 00:00 07/29/21 04:00 Temperature Pulse Rate 78 87 72 Respiratory Rate 16 Blood Pressure Pulse Oximetry 07/29/21 04:45 Temperature 36.1 C L Pulse Rate 76 Respiratory Rate 18 Blood Pressure 115/74 Pulse Oximet
[2021-07-29 07:35] LABS: Glucose Point of Care 167 mg/dl (65-105)
[2021-07-29] MEDS: IPRATROPIUM BR 0.02% INH SOLN 0.5 MG/2.5 ML VIAL INHALATION ×3 (08:48→21:55)
[2021-07-29] MEDS: ALBUTEROL SULFATE NEB 2.5 MG/0.5 ML INH 5 MG INHALATION ×3 (08:48→21:55)
[2021-07-29] MEDS: GABAPENTIN 300 MG CAPSULE PO ×3 (09:22→17:25)
[2021-07-29] MEDS: METOPROLOL TARTRATE 25 MG TABLET PO ×2 (09:22→20:47)
[2021-07-29] MEDS: FAMOTIDINE 20 MG/2 ML VIAL IV PUSH ×2 (09:22→20:47)
[2021-07-29] MEDS: FUROSEMIDE 20 MG TABLET PO (09:23)
[2021-07-29] MEDS: APIXABAN 5 MG TABLET PO ×2 (09:23→20:47)
[2021-07-29] MEDS: ATORVASTATIN 40 MG TABLET 80 MG PO (09:23)
[2021-07-29] MEDS: EZETIMIBE 10 MG TABLET PO (09:23)
[2021-07-29] MEDS: amLODIPine BESYLATE 5 MG TABLET 10 MG PO (09:23)
[2021-07-29] MEDS: ASPIRIN 81 MG CHEWABLE TABLET PO (09:23)
[2021-07-29] MEDS: FENOFIBRATE 160 MG TABLET PO (09:23)
[2021-07-29] MEDS: TOLNAFTATE 1% POWDER 45 GM BTL 1 APPLIC TOPICAL ×2 (09:24→20:50)
[2021-07-29] MEDS: levoFLOXacin 250 MG/D5W 50 ML 250 MG/50 ML BAG 50 MG IVPB (09:32)
[2021-07-29] MEDS: INSULIN GLARGINE (*BKC) 100 UNITS/ML SUB-Q (09:33)
--- NOTE | 2021-07-29 11:26 | PM.IMPN ---
Progress Note: A&P Assessment and Plan (1) Acute respiratory failure: Qualifiers: Respiratory failure complication: hypoxia Qualified Code(s): J96.01 - Acute respiratory failure with hypoxia Code(s): J96.00 - Acute respiratory failure, unspecified whether with hypoxia or hypercapnia Status: Acute Assessment and Plan: Related to anaphylactic shock from an allergic reaction to ceftriaxone. Patient also has pneumonia and hx of COPD. CT neck did show pharynx collapsing around the ETT. She was negative for COVID-19. She was intubated was in icu. Pt now appears much better on 2 liters of oxygen. and is currently on iv levaquin for pneumonia. (2) Allergic drug reaction: Qualifiers: Encounter type: subsequent encounter Qualified Code(s): T78.40XD - Allergy, unspecified, subsequent encounter Code(s): T78.40XA - Allergy, unspecified, initial encounter Status: Acute Assessment and Plan: Patient had a severe allergic reaction to ceftriaxone in the ED. The patient became unresponsive and diaphoretic with increased respiratory distress. The patient required intubation. Patient received Solu-Medrol, Benadryl IV and Pepcid IV. Pt now appears much better on 2 liters of oxygen. and is currently on iv levaquin for pneumonia. (3) Community acquired pneumonia: Qualifiers: Laterality: unspecified laterality Qualified Code(s): J18.9 - Pneumonia, unspecified organism Code(s): J18.9 - Pneumonia, unspecified organism Status: Acute Assessment and Plan: CTA chest showing consolidation in the posterior segment of the left upper lobe consistent with pneumonia with additional bilateral regions of small central lobular nodules and groundglass opacities favoring CAP. Pt now appears much better on 2 liters of oxygen. and is currently on iv levaquin for pneumonia, nebulizer treatments and is off steroids. (4) Atrial fibrillation: Code(s): I48.91 - Unspecified atrial fibrillation Status: Acute Assessment and Plan: Started on Eliquis for stroke prophylaxis due to atrial fibrillation (5) Essential hypertension: Code(s): I10 - Essential (primary) hypertension Status: Chronic Assessment and Plan: Continue current medications. Continue metoprolol. And Norvasc. (6) Stage III chronic kidney disease: Code(s): N18.3 - Chronic kidney disease, stage 3 (moderate) Status: Acute Assessment and Plan: Cr 1.4-1.9 range chronically. Cr 1.6 on admission today 1.3. Renal US bilateral renal cortical atrophy and 4.0 cm right renal cyst. No hydronephrosis. Cr was still within her baseline but she was hypotensive in the ED (70/38) and received contrast so suspect most likely mild ATN. Will ask for martin removal today (7) COPD exacerbation: Code(s): J44.1 - Chronic obstructive pulmonary disease with (acute) exacerbation Status: Acute Assessment and Plan: CTA chest on admission showing mild emphysema with mild enlargement of the central pulmonary arteries consistent with pulmonary arterial hypertension. Pt is on nebuliser treatments steroids were stopped order CXR for porfirio. (8) Insulin dependent type 2 diabetes mellitus: Code(s): E11.9 - Type 2 diabetes mellitus without complications; Z79.4 - ocean transportation intermediary (current) use of insulin Status: Acute Assessment and Plan: A1c 6.9. Glucose today was 200. Continue AccuCheks covering with sliding scale. (9) Congestive heart failure: Code(s): I50.9 - Heart failure, unspecified Status: Chronic Assessment and Plan: Echo this admission showing Left ventricular chamber dimension and systolic function is normal with EF 55-60% and grade I diastolic dysfunction. (10) SUZANNE on CPAP: Code(s): G47.33 - Obstructive sleep apnea (adult) (pediatric); Z99.89 - Dependence on other enabling machines and devices Status:
[2021-07-29 11:57] LABS: Glucose Point of Care 189 mg/dl (65-105)
[2021-07-29 16:52] LABS: Glucose Point of Care 238 mg/dl (65-105)
[2021-07-29] MEDS: INSULIN ASPART (*BKC) 100 UNITS/ML SUB-Q (17:25)
[2021-07-29 21:22] LABS: Glucose Point of Care 236 mg/dl (65-105)
[2021-07-30] VITALS (15 sets, daily range): BP systolic 140–144; BP diastolic 70–82; PULSE 73–107; RESP 16–22; TEMP 36.4–36.6; O2SAT 91–100
[2021-07-30] MEDS: IPRATROPIUM BR 0.02% INH SOLN 0.5 MG/2.5 ML VIAL INHALATION ×3 (02:43→14:30)
[2021-07-30] MEDS: ALBUTEROL SULFATE NEB 2.5 MG/0.5 ML INH 5 MG INHALATION ×3 (02:43→14:30)
[2021-07-30] MEDS: ACETAMINOPHEN 325 MG TABLET 650 MG PO ×2 (02:57→13:22)
[2021-07-30 06:53] LABS: Glucose Point of Care 179 mg/dl (65-105)
[2021-07-30] MEDS: ASPIRIN 81 MG CHEWABLE TABLET PO (08:14)
[2021-07-30] MEDS: amLODIPine BESYLATE 5 MG TABLET 10 MG PO (08:14)
[2021-07-30] MEDS: FAMOTIDINE 20 MG/2 ML VIAL IV PUSH (08:15)
[2021-07-30] MEDS: FENOFIBRATE 160 MG TABLET PO (08:15)
[2021-07-30] MEDS: ATORVASTATIN 40 MG TABLET 80 MG PO (08:15)
[2021-07-30] MEDS: FUROSEMIDE 20 MG TABLET PO (08:15)
[2021-07-30] MEDS: APIXABAN 5 MG TABLET PO (08:15)
[2021-07-30] MEDS: EZETIMIBE 10 MG TABLET PO (08:15)
[2021-07-30] MEDS: GABAPENTIN 300 MG CAPSULE PO ×3 (08:15→16:46)
[2021-07-30] MEDS: METOPROLOL TARTRATE 25 MG TABLET PO (08:16)
[2021-07-30] MEDS: TOLNAFTATE 1% POWDER 45 GM BTL 1 APPLIC TOPICAL (08:16)
[2021-07-30] MEDS: levoFLOXacin 250 MG/D5W 50 ML 250 MG/50 ML BAG 50 MG IVPB (08:17)
[2021-07-30 08:20] LABS: Anion Gap 3 mmol/L (8-16); Blood Urea Nitrogen 40 mg/dL (7-17); Calcium 8.4 mg/dL (8.4-10.2); Carbon Dioxide 31 mmol/L (22-30); Chloride 104 mmol/L (98-107); Estimated CRCL calculation 38 ml/min; Estimated Glomerular Filt Rate 37; Glucose 191 mg/dL (65-110); Potassium 4.3 mmol/L (3.4-5.0); Sodium 138 mmol/L (137-145)
[2021-07-30] MEDS: INSULIN GLARGINE (*BKC) 100 UNITS/ML SUB-Q (08:32)
[2021-07-30 11:41] LABS: Glucose Point of Care 253 mg/dl (65-105)
[2021-07-30] MEDS: INSULIN ASPART (*BKC) 100 UNITS/ML SUB-Q ×2 (12:03→16:46)
--- NOTE | 2021-07-30 15:01 | PM.DS ---
DS: Admitting Diagnosis Discharge Date 07/30/21 Admitting Diagnosis hypoglycemia and hypoxia DS: Discharge Diagnosis Discharge Diagnosis (1) Acute respiratory failure: Qualifiers: Respiratory failure complication: hypoxia Qualified Code(s): J96.01 - Acute respiratory failure with hypoxia Code(s): J96.00 - Acute respiratory failure, unspecified whether with hypoxia or hypercapnia Status: Acute Assessment and Plan: Patient with acute respiratory failure related to anaphylactic shock from an allergic reaction to ceftriaxone. Patient also has pneumonia and hx of COPD which contributed to her condition. She was intubated in the ED and was admitted to the ICU. CT neck did show pharynx collapsing around the ETT. She was negative for COVID-19. Pt was stablized. She was able to be weaned off the ventilator to O2 nasal cannula. She did well with continued treatment and now is on room air. (2) Allergic drug reaction: Qualifiers: Encounter type: subsequent encounter Qualified Code(s): T78.40XD - Allergy, unspecified, subsequent encounter Code(s): T78.40XA - Allergy, unspecified, initial encounter Status: Acute Assessment and Plan: Patient had a severe allergic reaction to ceftriaxone in the ED. The patient became unresponsive and diaphoretic with increased respiratory distress. The patient required intubation. Patient received Solu-Medrol, Benadryl IV and Pepcid IV. Condition stabilized and patient had excellent recovery. Steroids have been weaned off. (3) Community acquired pneumonia: Qualifiers: Laterality: unspecified laterality Qualified Code(s): J18.9 - Pneumonia, unspecified organism Code(s): J18.9 - Pneumonia, unspecified organism Status: Acute Assessment and Plan: CTA chest showing consolidation in the posterior segment of the left upper lobe consistent with pneumonia with additional bilateral regions of small central lobular nodules and ground glass opacities favoring CAP. Patient was given Rocephin in the ED but had an acute allergic reaction that was treated as mentioned above. She was changed to Levaquin and clinical improvement. Patient was also treated with nebulizer treatments and steroids. (4) Atrial fibrillation: Code(s): I48.91 - Unspecified atrial fibrillation Status: Acute Assessment and Plan: EKGs reviewed showing AFib. Patient has known Lt BBB and frequent PACs. Tele showing probably MAT as well. Metoprolol resumed and rate remained stable. [id number] 8 with HAS-BLED 3. AFib felt to be transient related to above but telemetry shows frequent ectopy so hard to know if she is in/out of AFib. Trop up to 0.048 felt related to the LIV and AFib/tachycardia. Echo as mentioned below. Eliquis started. Echo showing EF 55-60% with Grade I diastolic dysfunction. Plan for patient to be discharged with Eliquis and to follow up with her Appointment Scheduler for possibly an outpatient cardiac exercise specialist to see if she is having intermittent AFib. (5) Essential hypertension: Code(s): I10 - Essential (primary) hypertension Status: Chronic Assessment and Plan: Blood pressure remained well controlled. We continue the metoprolol. Norvasc was added. (6) Stage III chronic kidney disease: Code(s): N18.3 - Chronic kidney disease, stage 3 (moderate) Status: Acute Assessment and Plan: Cr 1.4-1.9 range chronically. Cr 1.6 on admission but climbed to 1.9 before improving to 1.4. Renal US bilateral renal cortical atrophy and 4.0 cm right renal cyst. No hydronephrosis. Cr elevation related to hypotensive in the ED (70/38) and received contrast. (7) COPD exacerbation: Code(s): J44.1 - Chronic obstructive pulmonary disease with (acute) exacerbation Status: Acute Assessment and Plan: CTA chest on admission showing mild emphysema with mild enlargement of the central
[2021-07-30 16:58] LABS: Glucose Point of Care 209 mg/dl (65-105)
== END 2021-07-30 17:30 | DRG 208 ==
LOC: ANHED 07:29 → ANH3MEDSUR 08:14 → ANHICU 16:27 → ANH2MED 07-29 07:36 → ANH3MEDSUR 07-31 12:13 → ANHICU 07-31 12:13
PROVIDERS: Emergency Medicine; Family Medicine; Internal Medicine; Internal Medicine Nephrology; Nurse Practitioner; Admitting Provider Internal Medicine; Emergency Provider Emergency Medicine; PCP Family Medicine; Visit Provider Internal Medicine
DX: J15.9 Unspecified bacterial pneumonia (principal); J96.01 Acute respiratory failure with hypoxia; J44.0 Chronic obstructive pulmonary disease with (acute) lower respiratory infection; I50.22 Chronic systolic (congestive) heart failure; Q24.5 Malformation of coronary vessels; J44.1 Chronic obstructive pulmonary disease with (acute) exacerbation; J45.901 Unspecified asthma with (acute) exacerbation; I13.0 Hypertensive heart and chronic kidney disease with heart failure and stage 1 through stage 4 chronic kidney disease, or unspecified chronic kidney disease; T88.6XXA Anaphylactic reaction due to adverse effect of correct drug or medicament properly administered, initial encounter; N17.9 Acute kidney failure, unspecified; Z86.73 Personal history of transient ischemic attack (TIA), and cerebral infarction without residual deficits; M79.7 Fibromyalgia; Z86.16 Personal history of COVID-19; F32.9 Major depressive disorder, single episode, unspecified; F41.9 Anxiety disorder, unspecified; E11.42 Type 2 diabetes mellitus with diabetic polyneuropathy; E78.5 Hyperlipidemia, unspecified; K21.9 Gastro-esophageal reflux disease without esophagitis; Z87.11 Personal history of peptic ulcer disease; Z79.4 Long term (current) use of insulin; G47.33 Obstructive sleep apnea (adult) (pediatric); M19.90 Unspecified osteoarthritis, unspecified site; E55.9 Vitamin D deficiency, unspecified; Z87.891 Personal history of nicotine dependence; E11.22 Type 2 diabetes mellitus with diabetic chronic kidney disease; T36.1X5A Adverse effect of cephalosporins and other beta-lactam antibiotics, initial encounter; Z20.822 Contact with and (suspected) exposure to COVID-19; E11.649 Type 2 diabetes mellitus with hypoglycemia without coma; Y92.238 Other place in hospital as the place of occurrence of the external cause; N18.32 Chronic kidney disease, stage 3b; E66.9 Obesity, unspecified; Z68.36 Body mass index [BMI] 36.0-36.9, adult; I48.91 Unspecified atrial fibrillation; I44.7 Left bundle-branch block, unspecified; I49.1 Atrial premature depolarization
CPT/HCPCS: 36415; 36556; 36600; 51702; 70450; 70490; 71045; 71046; 71275; 76775; 80048; 80053; 80069; 81001; 82375; 82436; 82550; 82570; 82805; 82948; 83036; 83050; 83605; 83735; 83880; 84100; 84133; 84300; 84484; 85025; 85027; 85610; 85730; 85999; 87040; 87070; 87205; 92610; 93005; 93306; 94002; 94003; 94640; 96365; 96375; 97110; 97116; 97163; 97166; 97530; 97535; 99285; A9270; C1751; C9803; J0360; J0456; J0696; J1200; J1650; J1815; J1940; J1956; J2250; J2704; J2920; J2930; J3475; J7030; J7040; Q9967; U0003; U0005

== ENCOUNTER 2021-07-30 18:07 | Inpatient (IN) | payer MEDICARE, MEDICAID, SELFPAY ==
[2021-07-30 18:20] VITALS: BMI 35.8
[2021-07-30 19:03] VITALS: BP 140/78; PULSE 77; RESP 16; TEMP 36.4; O2SAT 95
--- NOTE | 2021-07-30 20:00 | ADMGEN ---
This patient, Sarah Alvarado, was admitted to 2nd Floor Room 208-2 at 1820. Patient oriented to hospital policies and general routines including ID bracelet, bed and alarms, visiting hours, pain management, procedures, bathroom and other care routines, personal items, smoking policy, room service/diet, and visiting hours. Information on how to activate the Rapid Response Team has been discussed. Patient is encouraged to report perceived risks to care and to ask questions if they do not understand what they are told or what they should do. Patient A/O x3. Here for rehabilitation d/t increase weakness.
[2021-07-30] MEDS: METOPROLOL TARTRATE 25 MG TABLET PO (21:09)
[2021-07-30] MEDS: BENZONATATE 100 MG CAPSULE 200 MG PO (21:09)
[2021-07-30] MEDS: GABAPENTIN 300 MG CAPSULE PO (21:09)
[2021-07-30] MEDS: APIXABAN 2.5 MG TABLET 5 MG PO (21:09)
[2021-07-30] MEDS: TOLNAFTATE 1% POWDER 45 GM BTL 1 APPLIC TOPICAL (21:13)
[2021-07-30] MEDS: ACETAMINOPHEN 325 MG TABLET 650 MG PO (21:16)
[2021-07-30 21:27] LABS: Glucose Point of Care 240 mg/dl (65-105)
[2021-07-30] MEDS: INSULIN DETEMIR 100 UNITS/ML 10 UNITS SUB-Q (21:27)
[2021-07-31] VITALS (11 sets, daily range): BP systolic 131–162; BP diastolic 63–94; PULSE 85–106; RESP 16–20; TEMP 36.2–36.3; O2SAT 93–99
[2021-07-31] MEDS: ALBUTEROL SULFATE NEB 2.5 MG/3 ML INH 5 MG INHALATION ×3 (03:06→18:54)
[2021-07-31] MEDS: ACETAMINOPHEN 325 MG TABLET 650 MG PO ×2 (03:10→09:17)
[2021-07-31] MEDS: GABAPENTIN 300 MG CAPSULE PO ×3 (05:38→21:38)
[2021-07-31] MEDS: glipiZIDE 5 MG TABLET 10 MG PO ×2 (05:38→15:45)
[2021-07-31] MEDS: BENZONATATE 100 MG CAPSULE 200 MG PO ×3 (05:38→21:38)
--- NOTE | 2021-07-31 06:31 | WPDREHABHP2 ---
HPI Date/Time 07/31/21 06:31 Narrative The patient's primary rehab impairment category is [ weakness] The etiologic diagnosis is [ history of pneumonia COPD exacerbation went into respiratory failure intubated secondary to receiving a g of Rocephin in the ER. The patient was unresponsive became hypoxic tachycardic developed anaphylactic shock was intubated patient was started on Levaquin and azithromycin. Currently patient is alert and oriented and currently has 1 more dose of p.o. Levaquin. Patient has a history of COPD/ CHF/ diabetes type 2 history of CVA, coronary artery disease and AFib.] I saw this patient [id number] on [ in January 24, 2021] The patient is a [ female] Therapy was initiated at the acute care facility and the patient transferred to us from [[facility]] on [] PRIOR LEVEL OF FUNCTION: [ alert and oriented] CURRENT LEVEL OF FUNCTION: [ alert and oriented] GOALS: Our therapists will evaluate the patient and establish the goals. However, upon pre-admission screening, the expected goals were to be [INDEPENDENT] with self-care, [INDEPENDENT] with transfers, and [INDEPENDENT] with functional mobility so that the patient can return home. ESTIMATED LENGTH OF STAY: [10-14 days] POTENTIAL BARRIERS TO DISCHARGE: [Patient lives alone.] [Family needs training.] [Severity of condition.] [Architectural barriers.] ACTIVE CO-MORBIDITIES PRESENT ON ADMISSION: As noted above Active co-morbidities include []. The above co-morbidities impact the patient's function and/or functional outcome by [] Covid The patient had a negative COVID test on []. Review of Systems Review of Systems All systems reviewed & are unremarkable except as noted in HPI and below [facility] Past Medical History Medical History Anemia of chronic disease Cerebrovascular accident 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 Chronic obstructive pulmonary disease Congestive heart failure History of reduced ejection fraction with improvement in EF to 55% on most recent echo. Diastolic dysfunction also noted. 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 Depression with anxiety Diabetic peripheral neuropathy Dyslipidemia Essential hypertension Fibromyalgia Gastroesophageal reflux disease History of peptic ulcer Hypersomnia Insulin dependent type 2 diabetes mellitus Obstructive sleep apnea on CPAP Osteoarthritis Stage III chronic kidney disease Baseline creatinine ranges between 1.3 and 1.60. Vitamin D deficiency Surgical History Surgical History History of appendectomy History of cardiac catheterization (~07/2013) Normal coronaries although anomalous left coronary artery arising from the right ostium was noted. History of hysterectomy (~1979) History of left breast biopsy Benign pathology. Family History Family History Father Malignant neoplasm of prostate Heart disease Mother Esophageal cancer Sibling Diabetes mellitus Daughter Alcoholism Social History Social History Social History: The patient is and lives With her daughter. 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 No alcohol or illicit substance abuse. She designates her daughter, Mikki Herrera, as her surrogate decision maker and she wishes to be a full code. Smoking status: Never smoker Alcohol intake: never Substance use: never Spiritual care concerns: No Meds Home Medications and Allergies Home Medications Medication Instructions Junior
[2021-07-31 08:04] LABS: Glucose Point of Care 175 mg/dl (65-105)
[2021-07-31] MEDS: ASPIRIN 81 MG ENTERIC TABLET PO (08:32)
[2021-07-31] MEDS: amLODIPine BESYLATE 5 MG TABLET 10 MG PO (08:32)
[2021-07-31] MEDS: levoFLOXacin 250 MG TABLET PO (08:32)
[2021-07-31] MEDS: EZETIMIBE 10 MG TABLET PO (08:33)
[2021-07-31] MEDS: APIXABAN 2.5 MG TABLET 5 MG PO ×2 (08:33→21:37)
[2021-07-31] MEDS: ATORVASTATIN 40 MG TABLET 80 MG PO (08:33)
[2021-07-31] MEDS: METOPROLOL TARTRATE 25 MG TABLET PO ×2 (08:33→21:40)
[2021-07-31] MEDS: FENOFIBRATE NANOCRYSTALLIZED 145 MG TABLET PO (08:33)
[2021-07-31] MEDS: TOLNAFTATE 1% POWDER 45 GM BTL 1 APPLIC TOPICAL ×2 (09:16→21:45)
[2021-07-31 11:46] LABS: Glucose Point of Care 98 mg/dl (65-105)
[2021-07-31] MEDS: HYDROcodone/acetaminophen (*CRX) 5-325 MG TABLET 1 TAB PO ×2 (13:25→21:38)
--- NOTE | 2021-07-31 14:23 | P.PN_ITS ---
Progress Note: A&P Assessment and Plan (1) Weakness: Code(s): R53.1 - Weakness Status: Acute Assessment and Plan: ? Exhibit tolerance during physical activity as evidenced by a normal fluctuation of vital signs during physical activity. ? Patient will be ability to perform required activities of daily living. ? Provide appropriate nutrition for healing and strength. ? Use appropriate to prevent falls. ? Continue physical therapy/occupational therapy. (2) Diabetes: Code(s): E11.9 - Type 2 diabetes mellitus without complications Status: Chronic Assessment and Plan: * Stable * Continue Accu-Chek with sliding scale hypoglycemic protocol * Continue Levemir, glipizide * Will adjust medication as needed (3) LIV (acute kidney injury): Code(s): N17.9 - Acute kidney failure, unspecified Status: Acute Assessment and Plan: * Acute on chronic stage III * BUN 34, creatinine 1.28, GFR 41 baseline creatinine appears to be1.4-1.9cre * Avoid nephrotoxic agents * Renal dose medication (4) Atrial fibrillation: Code(s): I48.91 - Unspecified atrial fibrillation Status: Acute Assessment and Plan: * Controlled * Continue Eliquis and metoprolol * Echo showed EF 55-60% with Grade I diastolic dysfunction * Will need to follow-up with authorization coordinator on discharge * Follow-up with Dr. Vega (5) Allergic drug reaction: Qualifiers: Encounter type: subsequent encounter Qualified Code(s): T78.40XD - Allergy, unspecified, subsequent encounter Code(s): T78.40XA - Allergy, unspecified, initial encounter Status: Acute Assessment and Plan: * Patient received Rocephin intubated afterwards * Avoid Rocephin okay to glucose. (6) COPD exacerbation: Code(s): J44.1 - Chronic obstructive pulmonary disease with (acute) exacerbation Status: Acute Assessment and Plan: * Stable * Continue albuterol nebulizer as needed (7) Acute cerebrovascular accident: Code(s): I63.9 - Cerebral infarction, unspecified Status: Acute Assessment and Plan: * Continue PT OT (8) Depression with anxiety: Code(s): F41.8 - Other specified anxiety disorders Status: Acute Assessment and Plan: * Ativan as needed (9) Gastroesophageal reflux disease: Code(s): K21.9 - Gastro-esophageal reflux disease without esophagitis Status: Acute Assessment and Plan: * Started pantoprazole (10) Congestive heart failure: Code(s): I50.9 - Heart failure, unspecified Status: Chronic Assessment and Plan: * Echo this admission showing Left ventricular chamber dimension and systolic function is normal with EF 55-60% and grade I diastolic dysfunction * Continue Lasix 20 mg daily (11) SUZANNE on CPAP: Code(s): G47.33 - Obstructive sleep apnea (adult) (pediatric); Z99.89 - Dependence on other enabling machines and devices Status: Acute Assessment and Plan: * Patient noncompliant has not used CPAP for years (12) Dyslipidemia: Code(s): E78.5 - Hyperlipidemia, unspecified Status: Acute Assessment and Plan: * Continue statins and fenofibrate * Subjective Date/time seen: 07/31/21 14:[age]yo female with CKD, CHF, DM and COPD brought in by EMS for dyspnea on 07/22. In the field she was found to have hypoglycemia and hypoxia. In the ED, she was diagnosed with PNA, most likely bacterial and started on appropriate abx. She developed anaphylaxis after Rocephin requiring intubati
--- NOTE | 2021-07-31 14:23 | WPDPN ---
Progress Note: A&P Assessment and Plan (1) Weakness: Code(s): R53.1 - Weakness Status: Acute Assessment and Plan: ? Exhibit tolerance during physical activity as evidenced by a normal fluctuation of vital signs during physical activity. ? Patient will be ability to perform required activities of daily living. ? Provide appropriate nutrition for healing and strength. ? Use appropriate to prevent falls. ? Continue physical therapy/occupational therapy. (2) Diabetes: Code(s): E11.9 - Type 2 diabetes mellitus without complications Status: Chronic Assessment and Plan: Stable Continue Accu-Chek with sliding scale hypoglycemic protocol Continue Levemir, glipizide Will adjust medication as needed (3) LIV (acute kidney injury): Code(s): N17.9 - Acute kidney failure, unspecified Status: Acute Assessment and Plan: Acute on chronic stage III BUN 34, creatinine 1.28, GFR 41 baseline creatinine appears to be1.4-1.9cre Avoid nephrotoxic agents Renal dose medication (4) Atrial fibrillation: Code(s): I48.91 - Unspecified atrial fibrillation Status: Acute Assessment and Plan: Controlled Continue Eliquis and metoprolol Echo showed EF 55-60% with Grade I diastolic dysfunction Will need to follow-up with accounts receivable collector on discharge Follow-up with Dr. Vega (5) Allergic drug reaction: Qualifiers: Encounter type: subsequent encounter Qualified Code(s): T78.40XD - Allergy, unspecified, subsequent encounter Code(s): T78.40XA - Allergy, unspecified, initial encounter Status: Acute Assessment and Plan: Patient received Rocephin intubated afterwards Avoid Rocephin okay to glucose. (6) COPD exacerbation: Code(s): J44.1 - Chronic obstructive pulmonary disease with (acute) exacerbation Status: Acute Assessment and Plan: Stable Continue albuterol nebulizer as needed (7) Acute cerebrovascular accident: Code(s): I63.9 - Cerebral infarction, unspecified Status: Acute Assessment and Plan: Continue PT OT (8) Depression with anxiety: Code(s): F41.8 - Other specified anxiety disorders Status: Acute Assessment and Plan: Ativan as needed (9) Gastroesophageal reflux disease: Code(s): K21.9 - Gastro-esophageal reflux disease without esophagitis Status: Acute Assessment and Plan: Started pantoprazole (10) Congestive heart failure: Code(s): I50.9 - Heart failure, unspecified Status: Chronic Assessment and Plan: Echo this admission showing Left ventricular chamber dimension and systolic function is normal with EF 55-60% and grade I diastolic dysfunction Continue Lasix 20 mg daily (11) SUZANNE on CPAP: Code(s): G47.33 - Obstructive sleep apnea (adult) (pediatric); Z99.89 - Dependence on other enabling machines and devices Status: Acute Assessment and Plan: Patient noncompliant has not used CPAP for years (12) Dyslipidemia: Code(s): E78.5 - Hyperlipidemia, unspecified Status: Acute Assessment and Plan: Continue statins and fenofibrate Subjective Date/time seen: 07/31/21 14:[age]yo female with CKD, CHF, DM and COPD brought in by EMS for dyspnea on 07/22. In the field she was found to have hypoglycemia and hypoxia. In the ED, she was diagnosed with PNA, most likely bacterial and started on appropriate abx. She developed anaphylaxis after Rocephin requiring intubation. She had COVID in May (positive testing 05/28/21). She was vaccinated for COVID with [employer] in January. Patient admitted in swing bed for rehabilitation due to decreased balance decreased mobility in severe limited function endurant and/or mobility.Patient has no concerns at this time her only request stat her [place] that she took at home be restarted. patient has chronic bilateral knee pain and takes [place] for treatment. she did note that
--- NOTE | 2021-07-31 15:34 | PC.NURSE ---
OT in to work with pt
--- NOTE | 2021-07-31 15:42 | PCOTNOTE ---
On 07/31/21, the student, [Adeline Vanessa ], provided care and completed [facility] documentation on this patient. I have reviewed the student's documentation and agree with the findings. MS
[2021-07-31] MEDS: guaiFENesin/DEXTROMETHORPHAN 5 ML UDC 10 ML PO (15:46)
[2021-07-31] MEDS: DICLOFENAC SODIUM 1% 100 GM GEL (*BKC) 1 APPLIC TOPICAL ×2 (16:41→21:45)
[2021-07-31 16:55] LABS: Glucose Point of Care 125 mg/dl (65-105)
--- NOTE | 2021-07-31 19:00 | PC.NURSE ---
Bedside shift report completed. Patient stated that she is feeling much better than when at [place]. She is resting comfortably in bed, with no reported pain at rest, and mild pain with movement in bed. She is not in need of any pain medication at this time. Patient stated she did not sleep last night, and wants to be able to sleep tonight. Patient requested bedtime snack later on.
[2021-07-31] MEDS: TEMAZEPAM (*CRX) 15 MG CAPSULE PO (21:42)
[2021-07-31] MEDS: INSULIN DETEMIR 100 UNITS/ML 10 UNITS SUB-Q (21:42)
[2021-07-31 22:01] LABS: Glucose Point of Care 213 mg/dl (65-105)
--- NOTE | 2021-07-31 22:30 | PC.NURSE ---
Patient rounding completed. Patient sleeping comfortably in bed, with no signs of pain or discomfort.
[2021-08-01] VITALS (10 sets, daily range): BP systolic 132–144; BP diastolic 75–86; PULSE 79–98; RESP 16–22; TEMP 36.6–37.1; O2SAT 93–99
[2021-08-01] MEDS: guaiFENesin/DEXTROMETHORPHAN 5 ML UDC 10 ML PO (00:13)
--- NOTE | 2021-08-01 02:00 | PC.NURSE ---
Patient rounding completed. Patient is sleeping comfortably in bed, with no signs of pain or discomfort.
--- NOTE | 2021-08-01 04:00 | PC.NURSE ---
Completed patient rounding. Patient was on commode, with charge nurse. Patient used the walker to pivot and sit on the nearby bed. Patient stated that she had slept well tonight. Patient did not need anything else.
--- NOTE | 2021-08-01 04:40 | PC.NURSE ---
Patient called for respiratory treatment. Patient was coughing a great deal, and O2 sats were in the low 90's to the high 80's. Patient was given a nebulizer treatment, and she reported that her breathing was easier, and her coughing felt more effective. Patient's O2 sats were at 99%.
[2021-08-01] MEDS: ALBUTEROL SULFATE NEB 2.5 MG/3 ML INH 5 MG INHALATION ×2 (04:49→18:14)
[2021-08-01 05:19] LABS: Hematocrit 32.7 % (35.0-42.0); Hemoglobin 10.3 g/dL (11.7-13.8); Mean Corpuscular HGB Conc 31.5 g/dL (32.0-36.0); Mean Corpuscular Hemoglobin 30.7 pg (27.0-31.0); Mean Corpuscular Volume 97.3 fL (78.0-102.0); Mean Platelet Volume 9.8 fl (9.2-11.8); Platelet Count Result 265 K/mm3 (150-420); Red Blood Count 3.36 M/mm3 (4.20-5.40); Red Cell Distribution Width 15.3 % (11.6-14.4)
[2021-08-01 05:34] LABS: Alanine Aminotransferase 24 U/L (14-59); Albumin Level 2.2 g/dL (3.4-5.0); Alkaline Phosphatase 64 U/L (46-116); Anion Gap 6 mmol/L (8-16); Aspartate Amino Transferase 18 U/L (15-37); Bilirubin,Total 0.4 mg/dL (0.00-1.00); Blood Urea Nitrogen 34 mg/dL (7-18); Calcium 8.4 mg/dL (8.5-10.1); Carbon Dioxide 30 mmol/L (21-32); Chloride 110 mmol/L (98-108); Estimated CRCL calculation 41 ml/min; Estimated Glomerular Filt Rate 41; Glucose 137 mg/dL (70-99); Magnesium 1.9 mg/dL (1.8-2.4); Osmolality Calculated 311 mOsm/kg (285-295); Potassium 4.2 mmol/L (3.5-5.1); Sodium 146 mmol/L (136-145); Total Protein 5.4 g/dL (6.4-8.2)
[2021-08-01] MEDS: GABAPENTIN 300 MG CAPSULE PO ×3 (05:54→21:03)
[2021-08-01] MEDS: BENZONATATE 100 MG CAPSULE 200 MG PO ×3 (05:54→21:04)
--- NOTE | 2021-08-01 06:04 | PC.NURSE ---
Completed patient rounding. Patient stated she feels as if her cough is becoming more effective, and that she hopes she may be able to go back to sleep for awhile. She is experiencing some mild pain, but does not feel that she needs anything for pain at this time.
[2021-08-01] MEDS: glipiZIDE 5 MG TABLET 10 MG PO ×2 (07:20→16:53)
[2021-08-01 08:29] LABS: Glucose Point of Care 149 mg/dl (65-105)
[2021-08-01] MEDS: DICLOFENAC SODIUM 1% 100 GM GEL (*BKC) 1 APPLIC TOPICAL ×2 (09:00→21:06)
[2021-08-01] MEDS: TOLNAFTATE 1% POWDER 45 GM BTL 1 APPLIC TOPICAL ×2 (09:10→21:06)
[2021-08-01] MEDS: ATORVASTATIN 40 MG TABLET 80 MG PO (09:15)
[2021-08-01] MEDS: FENOFIBRATE NANOCRYSTALLIZED 145 MG TABLET PO (09:27)
[2021-08-01] MEDS: APIXABAN 2.5 MG TABLET 5 MG PO ×2 (09:27→21:06)
[2021-08-01] MEDS: METOPROLOL TARTRATE 25 MG TABLET PO ×2 (09:28→21:05)
[2021-08-01] MEDS: amLODIPine BESYLATE 5 MG TABLET 10 MG PO (09:28)
[2021-08-01] MEDS: EZETIMIBE 10 MG TABLET PO (09:29)
[2021-08-01] MEDS: levoFLOXacin 250 MG TABLET PO (09:29)
[2021-08-01 12:04] LABS: Glucose Point of Care 167 mg/dl (65-105)
[2021-08-01] MEDS: HYDROcodone/acetaminophen (*CRX) 5-325 MG TABLET 1 TAB PO ×2 (15:14→21:03)
[2021-08-01] MEDS: INSULIN DETEMIR 100 UNITS/ML 10 UNITS SUB-Q (21:11)
[2021-08-01 21:25] LABS: Glucose Point of Care 200 mg/dl (65-105)
[2021-08-01 21:25] LABS: Glucose Point of Care 181 mg/dl (65-105)
[2021-08-02] VITALS (8 sets, daily range): BP systolic 148–152; BP diastolic 74–90; PULSE 72–98; RESP 14–16; TEMP 36.2–36.8; O2SAT 95–99
[2021-08-02] MEDS: BENZONATATE 100 MG CAPSULE 200 MG PO ×3 (05:32→20:36)
[2021-08-02] MEDS: GABAPENTIN 300 MG CAPSULE PO ×3 (05:33→20:35)
[2021-08-02] MEDS: glipiZIDE 5 MG TABLET 10 MG PO ×2 (05:33→17:04)
[2021-08-02] MEDS: HYDROcodone/acetaminophen (*CRX) 5-325 MG TABLET 1 TAB PO ×3 (05:35→18:14)
[2021-08-02 08:06] LABS: Glucose Point of Care 141 mg/dl (65-105)
[2021-08-02] MEDS: ATORVASTATIN 40 MG TABLET 80 MG PO (09:10)
[2021-08-02] MEDS: TOLNAFTATE 1% POWDER 45 GM BTL 1 APPLIC TOPICAL ×2 (09:10→20:37)
[2021-08-02] MEDS: EZETIMIBE 10 MG TABLET PO (09:56)
[2021-08-02] MEDS: amLODIPine BESYLATE 5 MG TABLET 10 MG PO (09:56)
[2021-08-02] MEDS: FENOFIBRATE NANOCRYSTALLIZED 145 MG TABLET PO (09:56)
[2021-08-02] MEDS: APIXABAN 2.5 MG TABLET 5 MG PO ×2 (09:57→20:37)
[2021-08-02] MEDS: METOPROLOL TARTRATE 25 MG TABLET PO ×2 (09:57→20:35)
[2021-08-02] MEDS: DICLOFENAC SODIUM 1% 100 GM GEL (*BKC) 1 APPLIC TOPICAL ×4 (10:11→20:37)
[2021-08-02 11:54] LABS: Glucose Point of Care 164 mg/dl (65-105)
[2021-08-02] MEDS: PANTOPRAZOLE SOD SESQUIHYDRATE 20 MG TAB PO (12:59)
[2021-08-02] MEDS: ALBUTEROL SULFATE NEB 2.5 MG/3 ML INH 5 MG INHALATION (14:14)
[2021-08-02 16:48] LABS: Glucose Point of Care 198 mg/dl (65-105)
[2021-08-02] MEDS: guaiFENesin/DEXTROMETHORPHAN 5 ML UDC 10 ML PO (20:18)
[2021-08-02] MEDS: traZODone HCL 50 MG TABLET PO (20:35)
[2021-08-02] MEDS: INSULIN DETEMIR 100 UNITS/ML 10 UNITS SUB-Q (20:43)
[2021-08-02 22:30] LABS: Glucose Point of Care 260 mg/dl (65-105)
[2021-08-03] VITALS (7 sets, daily range): BP systolic 107–142; BP diastolic 53–74; PULSE 73–86; RESP 16–20; TEMP 36.6–36.7; O2SAT 94–100
[2021-08-03] MEDS: HYDROcodone/acetaminophen (*CRX) 5-325 MG TABLET 1 TAB PO ×4 (00:12→18:44)
[2021-08-03] MEDS: glipiZIDE 5 MG TABLET 10 MG PO ×2 (05:57→16:15)
[2021-08-03] MEDS: GABAPENTIN 300 MG CAPSULE PO ×3 (05:58→20:32)
[2021-08-03] MEDS: BENZONATATE 100 MG CAPSULE 200 MG PO ×3 (05:58→20:32)
[2021-08-03 07:51] LABS: Glucose Point of Care 124 mg/dl (65-105)
[2021-08-03] MEDS: DICLOFENAC SODIUM 1% 100 GM GEL (*BKC) 1 APPLIC TOPICAL ×4 (08:40→20:45)
[2021-08-03] MEDS: EZETIMIBE 10 MG TABLET PO (08:41)
[2021-08-03] MEDS: FENOFIBRATE NANOCRYSTALLIZED 145 MG TABLET PO (08:41)
[2021-08-03] MEDS: APIXABAN 2.5 MG TABLET 5 MG PO ×2 (08:42→20:32)
[2021-08-03] MEDS: ATORVASTATIN 40 MG TABLET 80 MG PO (08:42)
[2021-08-03] MEDS: PANTOPRAZOLE SOD SESQUIHYDRATE 20 MG TAB PO (08:42)
[2021-08-03] MEDS: METOPROLOL TARTRATE 25 MG TABLET PO ×2 (08:42→20:31)
[2021-08-03] MEDS: amLODIPine BESYLATE 5 MG TABLET 10 MG PO (08:43)
[2021-08-03] MEDS: TOLNAFTATE 1% POWDER 45 GM BTL 1 APPLIC TOPICAL ×2 (08:57→20:44)
[2021-08-03] MEDS: BUDESONIDE/FORMOTEROL 80/4.5 MCG 6.9 GM INHALER (*SP) 2 PUFF INHALATION ×2 (09:00→20:31)
[2021-08-03] MEDS: ALBUTEROL SULFATE NEB 2.5 MG/3 ML INH 5 MG INHALATION ×2 (09:36→16:15)
--- NOTE | 2021-08-03 11:05 | PCOTNOTE ---
On 08/03/21, the student, [Adeline Vanessa ], provided care and completed [facility] documentation on this patient. I have reviewed the student's documentation and agree with the findings. MS
[2021-08-03 11:33] LABS: Glucose Point of Care 236 mg/dl (65-105)
[2021-08-03 16:38] LABS: Glucose Point of Care 217 mg/dl (65-105)
[2021-08-03] MEDS: INSULIN DETEMIR 100 UNITS/ML 10 UNITS SUB-Q (20:29)
[2021-08-03] MEDS: guaiFENesin/DEXTROMETHORPHAN 5 ML UDC 10 ML PO (20:31)
[2021-08-03] MEDS: traZODone HCL 50 MG TABLET PO (20:32)
--- NOTE | 2021-08-03 23:00 | PC.NURSE ---
Change of shift report completed. Patient is sleeping comfortably in bed with no signs of pain or discomfort.
[2021-08-04] VITALS: BP 122/71; PULSE 83; RESP 18; TEMP 36.4; O2SAT 95
--- NOTE | 2021-08-04 02:02 | PC.NURSE ---
Patient rounding completed. Patient is sleeping comfortably in bed, with no signs of pain or discomfort.
[2021-08-04] MEDS: HYDROcodone/acetaminophen (*CRX) 5-325 MG TABLET 1 TAB PO ×3 (04:54→18:21)
[2021-08-04] MEDS: GABAPENTIN 300 MG CAPSULE PO ×3 (05:59→21:11)
[2021-08-04] MEDS: BENZONATATE 100 MG CAPSULE 200 MG PO ×3 (05:59→21:11)
--- NOTE | 2021-08-04 06:41 | PC.NURSE ---
Patient called for toilet. She was able to ambulate to the commode using the walker. Patient is having difficult moving from sitting to a standing position.
[2021-08-04] MEDS: glipiZIDE 5 MG TABLET 10 MG PO ×2 (07:51→17:28)
[2021-08-04 08:00] VITALS: BP 114/66; PULSE 77; RESP 20; TEMP 36.4; O2SAT 94
[2021-08-04 08:00] LABS: Glucose Point of Care 180 mg/dl (65-105)
--- NOTE | 2021-08-04 08:26 | PC.NURSE ---
Mine Utility Operator assisted Jose up out of bed into chair at bedside with aide of walker. Tolerated well still some weakness with noted limitations due to bilateral knee issues. Blood sugar before breakfast 180. Call light in reach.
[2021-08-04 08:55] VITALS: TEMP 36.4
[2021-08-04] MEDS: ACETAMINOPHEN 500 MG TABLET 1000 MG PO (08:55)
[2021-08-04] MEDS: amLODIPine BESYLATE 5 MG TABLET 10 MG PO (08:58)
[2021-08-04] MEDS: PANTOPRAZOLE SOD SESQUIHYDRATE 20 MG TAB PO (08:59)
[2021-08-04] MEDS: METOPROLOL TARTRATE 25 MG TABLET PO ×2 (08:59→21:11)
[2021-08-04] MEDS: APIXABAN 2.5 MG TABLET 5 MG PO ×2 (08:59→21:11)
[2021-08-04] MEDS: DICLOFENAC SODIUM 1% 100 GM GEL (*BKC) 1 APPLIC TOPICAL ×4 (09:00→21:15)
[2021-08-04] MEDS: BUDESONIDE/FORMOTEROL 80/4.5 MCG 6.9 GM INHALER (*SP) 2 PUFF INHALATION ×2 (09:00→21:15)
[2021-08-04] MEDS: EZETIMIBE 10 MG TABLET PO (09:00)
[2021-08-04] MEDS: ATORVASTATIN 40 MG TABLET 80 MG PO (09:00)
[2021-08-04] MEDS: TOLNAFTATE 1% POWDER 45 GM BTL 1 APPLIC TOPICAL ×2 (09:10→21:15)
[2021-08-04] MEDS: FENOFIBRATE NANOCRYSTALLIZED 145 MG TABLET PO (10:52)
--- NOTE | 2021-08-04 11:29 | PCOTNOTE ---
On 08/04/21, the student, [ Adeline Vanessa], provided care and completed [facility] documentation on this patient. I have reviewed the student's documentation and agree with the findings. MS
[2021-08-04 11:36] LABS: Glucose Point of Care 216 mg/dl (65-105)
--- NOTE | 2021-08-04 11:38 | PC.NURSE ---
Continued problems withsitting to standing position, Pain to knees with norco given at this time. Sarah lying abed after PT worked with her this a.m. Call light in reach, continued intermittent cough Sarah denies production of sputum. Call light remains in place no distress or complaints noted.
[2021-08-04 13:01] VITALS: TEMP 36.4
--- NOTE | 2021-08-04 14:03 | PC.NURSE ---
PT/OT assisted with tx then placed abed with use of walker. attempted stairs but Ms. Alvarado was very afraid. Once back to bed bilateral feet with small pitting edema noted. Call light i9n reach continued monitoring an
--- NOTE | 2021-08-04 14:05 | PC.NURSE ---
Ms. Alvarado back abed after PT/OT treatment, assist on stairs was unsuccessful. Patient tolerated poorly because of her knees. Call light placed in reach, bilateral feet feet with moderate amount of edema noted Will continue to monitor and observe any changes
[2021-08-04 16:00] VITALS: BP 127/68; PULSE 73; RESP 20; TEMP 36.3; O2SAT 96
[2021-08-04 16:35] LABS: Glucose Point of Care 188 mg/dl (65-105)
[2021-08-04] MEDS: guaiFENesin/DEXTROMETHORPHAN 5 ML UDC 10 ML PO (18:21)
[2021-08-04 20:30] LABS: Glucose Point of Care 256 mg/dl (65-105)
[2021-08-04] MEDS: TEMAZEPAM (*CRX) 15 MG CAPSULE PO (21:10)
[2021-08-04] MEDS: traZODone HCL 50 MG TABLET PO (21:10)
[2021-08-04] MEDS: INSULIN DETEMIR 100 UNITS/ML 10 UNITS SUB-Q (21:10)
[2021-08-04 21:11] VITALS: PULSE 82
[2021-08-05] VITALS: BP 112/64; PULSE 79; RESP 20; TEMP 36.2; O2SAT 92
[2021-08-05] MEDS: HYDROcodone/acetaminophen (*CRX) 5-325 MG TABLET 1 TAB PO ×2 (04:14→21:01)
[2021-08-05] MEDS: BENZONATATE 100 MG CAPSULE 200 MG PO ×3 (06:02→21:00)
[2021-08-05] MEDS: GABAPENTIN 300 MG CAPSULE PO ×3 (06:02→21:00)
[2021-08-05 07:44] LABS: Glucose Point of Care 125 mg/dl (65-105)
[2021-08-05 08:00] VITALS: BP 120/70; PULSE 75; RESP 16; TEMP 36.6; O2SAT 98
[2021-08-05] MEDS: glipiZIDE 5 MG TABLET 10 MG PO ×2 (08:16→17:05)
[2021-08-05 09:00] VITALS: PULSE 78
[2021-08-05] MEDS: METOPROLOL TARTRATE 25 MG TABLET PO ×2 (09:00→21:00)
[2021-08-05] MEDS: BUDESONIDE/FORMOTEROL 80/4.5 MCG 6.9 GM INHALER (*SP) 2 PUFF INHALATION ×2 (09:15→21:06)
[2021-08-05] MEDS: DICLOFENAC SODIUM 1% 100 GM GEL (*BKC) 1 APPLIC TOPICAL ×4 (09:16→21:05)
[2021-08-05] MEDS: FENOFIBRATE NANOCRYSTALLIZED 145 MG TABLET PO (09:17)
[2021-08-05] MEDS: APIXABAN 2.5 MG TABLET 5 MG PO ×2 (09:17→21:00)
[2021-08-05] MEDS: amLODIPine BESYLATE 5 MG TABLET 10 MG PO (09:18)
[2021-08-05] MEDS: EZETIMIBE 10 MG TABLET PO (09:18)
[2021-08-05] MEDS: PANTOPRAZOLE SOD SESQUIHYDRATE 20 MG TAB PO (09:18)
[2021-08-05] MEDS: ATORVASTATIN 40 MG TABLET 80 MG PO (09:18)
--- NOTE | 2021-08-05 10:45 | PCOTNOTE ---
On 08/05/21, the student, [Adeline Vanessa ], provided care and completed [facility] documentation on this patient. I have reviewed the student's documentation and agree with the findings. MS
[2021-08-05] MEDS: TOLNAFTATE 1% POWDER 45 GM BTL 1 APPLIC TOPICAL ×2 (13:44→21:07)
[2021-08-05 15:56] VITALS: BP 119/67; PULSE 74; RESP 22; TEMP 36.6; O2SAT 93
[2021-08-05 17:24] LABS: Glucose Point of Care 211 mg/dl (65-105)
[2021-08-05 21:00] VITALS: PULSE 78
[2021-08-05] MEDS: guaiFENesin/DEXTROMETHORPHAN 5 ML UDC 10 ML PO (21:02)
[2021-08-05] MEDS: INSULIN DETEMIR 100 UNITS/ML 10 UNITS SUB-Q (21:08)
[2021-08-05 21:15] LABS: Glucose Point of Care 296 mg/dl (65-105)
--- NOTE | 2021-08-05 23:00 | PC.NURSE ---
Completed change of shift report. Patient is sleeping comfortably in bed, with no signs of pain or discomfort.
[2021-08-06] VITALS: BP 137/74; PULSE 94; RESP 20; TEMP 36.8; O2SAT 91
--- NOTE | 2021-08-06 02:10 | PC.NURSE ---
Patient rounding completed. Patient sleeping comfortably in bed, with no signs of pain or discomfort.
--- NOTE | 2021-08-06 04:20 | PC.NURSE ---
Patient rounding completed. Patient is sleeping comfortably in her bed, with no signs of pain or discomfort.
[2021-08-06 05:44] LABS: Hematocrit 30.3 % (35.0-42.0); Hemoglobin 9.3 g/dL (11.7-13.8); Mean Corpuscular HGB Conc 30.7 g/dL (32.0-36.0); Mean Corpuscular Hemoglobin 30.3 pg (27.0-31.0); Mean Corpuscular Volume 98.7 fL (78.0-102.0); Mean Platelet Volume 9.7 fl (9.2-11.8); Platelet Count Result 318 K/mm3 (150-420); Red Blood Count 3.07 M/mm3 (4.20-5.40); Red Cell Distribution Width 15.9 % (11.6-14.4); White Blood Count 4.3 K/mm3 (4.8-10.8)
[2021-08-06 05:57] LABS: Anion Gap 4 mmol/L (8-16); Blood Urea Nitrogen 26 mg/dL (7-18); Calcium 8.4 mg/dL (8.5-10.1); Carbon Dioxide 29 mmol/L (21-32); Chloride 112 mmol/L (98-108); Estimated CRCL calculation 38 ml/min; Estimated Glomerular Filt Rate 38; Glucose 109 mg/dL (70-99); Osmolality Calculated 305 mOsm/kg (285-295); Potassium 4.5 mmol/L (3.5-5.1); Sodium 145 mmol/L (136-145)
[2021-08-06] MEDS: BENZONATATE 100 MG CAPSULE 200 MG PO ×3 (06:10→21:40)
[2021-08-06] MEDS: GABAPENTIN 300 MG CAPSULE PO ×3 (06:11→21:40)
[2021-08-06] MEDS: HYDROcodone/acetaminophen (*CRX) 5-325 MG TABLET 1 TAB PO ×3 (06:19→18:29)
[2021-08-06 07:53] VITALS: BP 138/79; PULSE 76; RESP 16; TEMP 36.8; O2SAT 95
[2021-08-06 07:53] LABS: Glucose Point of Care 98 mg/dl (65-105)
[2021-08-06] MEDS: amLODIPine BESYLATE 5 MG TABLET 10 MG PO (09:00)
[2021-08-06] MEDS: PANTOPRAZOLE SOD SESQUIHYDRATE 20 MG TAB PO (09:02)
[2021-08-06] MEDS: glipiZIDE 5 MG TABLET 10 MG PO ×2 (09:02→17:10)
[2021-08-06] MEDS: APIXABAN 2.5 MG TABLET 5 MG PO ×2 (09:04→21:39)
[2021-08-06] MEDS: ATORVASTATIN 40 MG TABLET 80 MG PO (09:06)
[2021-08-06] MEDS: EZETIMIBE 10 MG TABLET PO (09:07)
[2021-08-06] MEDS: DICLOFENAC SODIUM 1% 100 GM GEL (*BKC) 1 APPLIC TOPICAL ×4 (09:08→21:52)
[2021-08-06] MEDS: BUDESONIDE/FORMOTEROL 80/4.5 MCG 6.9 GM INHALER (*SP) 2 PUFF INHALATION ×2 (09:08→21:52)
[2021-08-06] MEDS: TOLNAFTATE 1% POWDER 45 GM BTL 1 APPLIC TOPICAL ×2 (09:09→22:01)
[2021-08-06] MEDS: FENOFIBRATE NANOCRYSTALLIZED 145 MG TABLET PO (09:10)
[2021-08-06 09:25] VITALS: PULSE 78
[2021-08-06] MEDS: METOPROLOL TARTRATE 25 MG TABLET PO ×2 (09:25→21:39)
[2021-08-06 11:35] LABS: Glucose Point of Care 216 mg/dl (65-105)
[2021-08-06 16:00] VITALS: BP 133/71; PULSE 70; RESP 20; TEMP 35.8; O2SAT 97
[2021-08-06 17:09] LABS: Glucose Point of Care 154 mg/dl (65-105)
[2021-08-06] MEDS: guaiFENesin/DEXTROMETHORPHAN 5 ML UDC 10 ML PO (18:30)
[2021-08-06 21:39] VITALS: PULSE 82
[2021-08-06] MEDS: traZODone HCL 50 MG TABLET PO (21:39)
[2021-08-06] MEDS: TEMAZEPAM (*CRX) 15 MG CAPSULE PO (21:39)
[2021-08-06] MEDS: INSULIN DETEMIR 100 UNITS/ML 10 UNITS SUB-Q (21:40)
[2021-08-06 21:52] LABS: Glucose Point of Care 269 mg/dl (65-105)
[2021-08-06 23:57] VITALS: BP 114/65; PULSE 73; RESP 20; O2SAT 93
[2021-08-07] MEDS: HYDROcodone/acetaminophen (*CRX) 5-325 MG TABLET 1 TAB PO ×2 (04:18→10:30)
[2021-08-07] MEDS: BENZONATATE 100 MG CAPSULE 200 MG PO ×2 (06:10→13:59)
[2021-08-07] MEDS: GABAPENTIN 300 MG CAPSULE PO ×2 (06:10→14:00)
--- NOTE | 2021-08-07 07:23 | P.DS_ITS ---
DS: Admitting Diagnosis Discharge Date 08/07/2021 Admitting Diagnosis Community Acquired Pneumonia, s/p Anaphylactic shock r/t Rocephin, s/p respiratory failure DS: Discharge Diagnosis Discharge Diagnosis (1) Weakness: Code(s): R53.1 - Weakness Status: Acute Assessment and Plan: ? Exhibit tolerance during physical activity as evidenced by a normal fluctuation of vital signs during physical activity. ? Patient will be ability to perform required activities of daily living. ? Provide appropriate nutrition for healing and strength. ? Use appropriate to prevent falls. ? Continue physical therapy/occupational therapy. 08/07/2021 Pt has been working with PT/OT and will continue to do so after DC with [facility] (2) Pneumonia: Code(s): J18.9 - Pneumonia, unspecified organism Status: Acute Assessment and Plan: Pt was taking Levaquin and this was discontinued, on 08/01/2021 she had her last dose. Pt is without SOB, has occasional cough. Pt to follow up with PCP after DC. (3) Diabetes: Code(s): E11.9 - Type 2 diabetes mellitus without complications Status: Chronic Assessment and Plan: * Stable * Continue Accu-Chek with sliding scale hypoglycemic protocol * Continue Levemir, glipizide * Will adjust medication as needed 08/07/2021 Glucose has been controlled between 100 and 269. Pt to f/u with her PCP after DC (4) LIV (acute kidney injury): Code(s): N17.9 - Acute kidney failure, unspecified Status: Acute Assessment and Plan: * Acute on chronic stage III * BUN 34, creatinine 1.28, GFR 41 baseline creatinine appears to be1.4-1.9cre * Avoid nephrotoxic agents * Renal dose medication 08/07/2021 Pt is at baseline with her current Cr at 1.37 (5) Atrial fibrillation: Code(s): I48.91 - Unspecified atrial fibrillation Status: Acute Assessment and Plan: * Controlled * Continue Eliquis and metoprolol * Echo showed EF 55-60% with Grade I diastolic dysfunction * Will need to follow-up with mink rancher on discharge * Follow-up with Dr. Vega 08/07/2021 Pt needs to follow up with PCP and mink rancher after DC (6) Allergic drug reaction: Qualifiers: Encounter type: subsequent encounter Qualified Code(s): T78.40XD - Allergy, unspecified, subsequent encounter Code(s): T78.40XA - Allergy, unspecified, initial encounter Status: Acute Assessment and Plan: * Patient received Rocephin intubated afterwards * Avoid Rocephin okay to glucose. 08/07/2021 Discussed this with Pt. (7) COPD exacerbation: Code(s): J44.1 - Chronic obstructive pulmonary disease with (acute) exacerbation Status: Acute Assessment and Plan: * Stable * Continue albuterol nebulizer as needed 08/07/2021 Pt is at baseline with her COPD (8) Acute cerebrovascular accident: Code(s): I63.9 - Cerebral infarction, unspecified Status: Acute Assessment and Plan: * Continue PT OT 08/07/2021 this is an old CVA (9) Depression with anxiety: Code(s): F41.8 - Other specified anxiety disorders Status: Acute Assessment and Plan: * Ativan as needed (10) Gastroesophageal reflux disease: Code(s): K21.9 - Gastro-esophageal reflux disease without esophagitis Status: Acute Assessment and Plan: * Started pantoprazole (11) Congestive heart failure: Code(s): I50.9 - Heart failure, unspecified Status: Chronic Assessment and Plan: 08/07/2021 Echo completed at [facility]
--- NOTE | 2021-08-07 07:23 | PM.DS ---
DS: Admitting Diagnosis Discharge Date 08/07/2021 Admitting Diagnosis Community Acquired Pneumonia, s/p Anaphylactic shock r/t Rocephin, s/p respiratory failure DS: Discharge Diagnosis Discharge Diagnosis (1) Weakness: Code(s): R53.1 - Weakness Status: Acute Assessment and Plan: ? Exhibit tolerance during physical activity as evidenced by a normal fluctuation of vital signs during physical activity. ? Patient will be ability to perform required activities of daily living. ? Provide appropriate nutrition for healing and strength. ? Use appropriate to prevent falls. ? Continue physical therapy/occupational therapy. 08/07/2021 Pt has been working with PT/OT and will continue to do so after DC with [facility] (2) Pneumonia: Code(s): J18.9 - Pneumonia, unspecified organism Status: Acute Assessment and Plan: Pt was taking Levaquin and this was discontinued, on 08/01/2021 she had her last dose. Pt is without SOB, has occasional cough. Pt to follow up with PCP after DC. (3) Diabetes: Code(s): E11.9 - Type 2 diabetes mellitus without complications Status: Chronic Assessment and Plan: Stable Continue Accu-Chek with sliding scale hypoglycemic protocol Continue Levemir, glipizide Will adjust medication as needed 08/07/2021 Glucose has been controlled between 100 and 269. Pt to f/u with her PCP after DC (4) LIV (acute kidney injury): Code(s): N17.9 - Acute kidney failure, unspecified Status: Acute Assessment and Plan: Acute on chronic stage III BUN 34, creatinine 1.28, GFR 41 baseline creatinine appears to be1.4-1.9cre Avoid nephrotoxic agents Renal dose medication 08/07/2021 Pt is at baseline with her current Cr at 1.37 (5) Atrial fibrillation: Code(s): I48.91 - Unspecified atrial fibrillation Status: Acute Assessment and Plan: Controlled Continue Eliquis and metoprolol Echo showed EF 55-60% with Grade I diastolic dysfunction Will need to follow-up with board mill supervisor on discharge Follow-up with Dr. Vega 08/07/2021 Pt needs to follow up with PCP and board mill supervisor after DC (6) Allergic drug reaction: Qualifiers: Encounter type: subsequent encounter Qualified Code(s): T78.40XD - Allergy, unspecified, subsequent encounter Code(s): T78.40XA - Allergy, unspecified, initial encounter Status: Acute Assessment and Plan: Patient received Rocephin intubated afterwards Avoid Rocephin okay to glucose. 08/07/2021 Discussed this with Pt. (7) COPD exacerbation: Code(s): J44.1 - Chronic obstructive pulmonary disease with (acute) exacerbation Status: Acute Assessment and Plan: Stable Continue albuterol nebulizer as needed 08/07/2021 Pt is at baseline with her COPD (8) Acute cerebrovascular accident: Code(s): I63.9 - Cerebral infarction, unspecified Status: Acute Assessment and Plan: Continue PT OT 08/07/2021 this is an old CVA (9) Depression with anxiety: Code(s): F41.8 - Other specified anxiety disorders Status: Acute Assessment and Plan: Ativan as needed (10) Gastroesophageal reflux disease: Code(s): K21.9 - Gastro-esophageal reflux disease without esophagitis Status: Acute Assessment and Plan: Started pantoprazole (11) Congestive heart failure: Code(s): I50.9 - Heart failure, unspecified Status: Chronic Assessment and Plan: 08/07/2021 Echo completed at [facility] 07/24/2021 Summary 1. Complete two-dimensional, color flow and Doppler transthoracic echocardiogram is performed. 2. Left ventricular chamber dimension is normal. 3. Left ventricular systolic function is normal, estimated at 55-60%. 4. There is moderately increased left ventricular wall thickness. 5. The left ventricular diastolic function is grade I diastolic dysfunction. 6. E/e' 21 is elevated. 7. Global longitudinal str
[2021-08-07 07:37] LABS: Glucose Point of Care 156 mg/dl (65-105)
[2021-08-07 08:00] VITALS: BP 122/68; PULSE 73; RESP 14; TEMP 36.2; O2SAT 97
[2021-08-07] MEDS: DICLOFENAC SODIUM 1% 100 GM GEL (*BKC) 1 APPLIC TOPICAL ×2 (08:25→13:00)
[2021-08-07] MEDS: BUDESONIDE/FORMOTEROL 80/4.5 MCG 6.9 GM INHALER (*SP) 2 PUFF INHALATION (08:25)
[2021-08-07] MEDS: EZETIMIBE 10 MG TABLET PO (08:26)
[2021-08-07] MEDS: glipiZIDE 5 MG TABLET 10 MG PO (08:26)
[2021-08-07] MEDS: APIXABAN 2.5 MG TABLET 5 MG PO (08:27)
[2021-08-07] MEDS: ATORVASTATIN 40 MG TABLET 80 MG PO (08:27)
[2021-08-07] MEDS: PANTOPRAZOLE SOD SESQUIHYDRATE 20 MG TAB PO (08:27)
[2021-08-07 08:28] VITALS: PULSE 72
[2021-08-07] MEDS: FENOFIBRATE NANOCRYSTALLIZED 145 MG TABLET PO (08:28)
[2021-08-07] MEDS: METOPROLOL TARTRATE 25 MG TABLET PO (08:28)
[2021-08-07] MEDS: amLODIPine BESYLATE 5 MG TABLET 10 MG PO (08:28)
[2021-08-07] MEDS: TOLNAFTATE 1% POWDER 45 GM BTL 1 APPLIC TOPICAL (09:00)
[2021-08-07] MEDS: guaiFENesin/DEXTROMETHORPHAN 5 ML UDC 10 ML PO (10:00)
--- NOTE | 2021-08-07 14:51 | PC.NURSE ---
Pt given discharge instructions and all medications returned to pt. Pt verbalized understanding of discharge instructions. RN took pt by to family car.
--- NOTE | 2021-08-10 12:26 | PC.NURSE ---
Patient's daughter states she received and understood the discharge instructions.
== END 2021-08-07 14:40 | disposition home health service (06) | DRG 947 ==
PROVIDERS: Nurse Practitioner; Nurse Practitioner Family; Admitting Provider Emergency Medicine; PCP Family Medicine; Visit Provider Emergency Medicine
DX: R53.1 Weakness (principal); J18.9 Pneumonia, unspecified organism; J44.0 Chronic obstructive pulmonary disease with (acute) lower respiratory infection; I13.0 Hypertensive heart and chronic kidney disease with heart failure and stage 1 through stage 4 chronic kidney disease, or unspecified chronic kidney disease; N17.9 Acute kidney failure, unspecified; I48.20 Chronic atrial fibrillation, unspecified; J44.1 Chronic obstructive pulmonary disease with (acute) exacerbation; I50.9 Heart failure, unspecified; N18.30 Chronic kidney disease, stage 3 unspecified; E11.42 Type 2 diabetes mellitus with diabetic polyneuropathy; D63.8 Anemia in other chronic diseases classified elsewhere; E55.9 Vitamin D deficiency, unspecified; E78.5 Hyperlipidemia, unspecified; M79.7 Fibromyalgia; K21.9 Gastro-esophageal reflux disease without esophagitis; M19.90 Unspecified osteoarthritis, unspecified site; G47.10 Hypersomnia, unspecified; G47.33 Obstructive sleep apnea (adult) (pediatric); T36.1X5D Adverse effect of cephalosporins and other beta-lactam antibiotics, subsequent encounter; T88.6XXD Anaphylactic reaction due to adverse effect of correct drug or medicament properly administered, subsequent encounter; Z79.4 Long term (current) use of insulin; Z86.73 Personal history of transient ischemic attack (TIA), and cerebral infarction without residual deficits; Z87.11 Personal history of peptic ulcer disease
CPT/HCPCS: 36415; 80048; 80053; 82948; 83735; 85027; 94640; 97110; 97161; 97165; 97530; 97535; A9270; J1815

== ENCOUNTER 2022-01-20 15:45 | Emergency (ER) | payer MEDICARE, MEDICAID, SELFPAY ==
[2022-01-20] VITALS (17 sets, daily range): BP systolic 181–197; BP diastolic 79–102; PULSE 58–65; RESP 5–25; TEMP 36.4–37.2; O2SAT 96–100
--- NOTE | ~2022-01-20 | XR_ITS ---
XR chest 1V portable DATE: 01/20/2022 18:40 INDICATION: Shortness of breath. Hypertension. TECHNIQUE: Portable AP chest on 01/20/2022 at 1834 hours COMPARISON: 07/30/2021 portable AP chest FINDINGS: Cardiac megaly. Aortic unfolding. No hilar or mediastinal enlargement is evident. No pulmonary consolidation, pleural effusion, pulmonary vascular congestion or pneumothorax is eviden t. IMPRESSION: Cardiomegaly Reviewed, dictated and finalized at location A. IMPRESSION: Cardiomegaly
--- NOTE | 2022-01-20 18:28 | ECG_ITS ---
Measurements Intervals [place] Rate: 61 P: -81 VT: 115 QRS: -52 QRSD: 141 T: 63 QT: 450 QTc: 457 Interpretive Statements NORMAL SINUS RHYTHM INTRAVENTRICULAR CONDUCTION DELAY [130+ ms QRS DURATION] COMPARED TO ECG 07/24/2021 11:38:19 J NO SIGNIFICANT CHANGE Electronically Signed On 01-20-2022 20:30:29 CDT by Mary Mark M.D.
[2022-01-20 19:30] LABS: Add Urine Microscopic? YES; Appearance Urine Cloudy (Clear); Bacteria Urine Trace /hpf; Bilirubin Urine Negative (Negative); Blood Urine Negative (Negative); Color Urine Yellow (Yellow); Glucose Urine UA 1+ mg/dL (Negative); Ketones Urine Negative (Negative); Leukocyte Esterase Ur 2+ LEU/UL (Negative); Nitrate Urine Positive (Negative); Protein Urine 3+ mg/dL (Negative); RBC Urine 0-2 /hpf (0-2); Specific Grav Ur 1.013 (1.001-1.035); Squamous Epithelial Cell Urine Few /hpf (Few); Urobilinogen Urine Negative mg/dL (<2.0); WBC Clumps Urine Present /HPF; WBC Urine 51-75 /hpf
[2022-01-20 19:42] LABS: Basophils Percent Auto 0.6 % (0.2-1.2); Eosinophils Absolute Auto 0.2 K/mm3 (0-0.3); Eosinophils Percent Auto 3.2 % (0-4.4); Hematocrit 33.1 % (37.0-47.0); Hemoglobin 10.3 g/dL (12.0-15.0); Immature Granulocyte Absolute 0.03 K/mm3 (0.00-0.031); Immature Granulocyte Percent A 0.5 % (0-0.5); Lymphocytes Absolute Auto 1.18 K/mm3 (0.9-3.2); Lymphocytes Percent Auto 18.7 % (18.3-44.2); Mean Corpuscular HGB Conc 31.1 g/dl (32-36); Mean Corpuscular Hemoglobin 31.6 pg (26-34); Mean Corpuscular Volume 101.5 fl (80-100); Mean Platelet Volume 9.2 fl (7.4-10.4); Monocytes Absolute Auto 0.6 K/mm3 (0.1-0.6); Monocytes Percent Auto 8.9 % (2.6-8.5); Neutrophils Absolute Auto 4.3 K/mm3 (1.3-6.7); Neutrophils Percent Auto 68.1 % (45.5-73.1); Platelet Count Result 244 k/mm3 (150-375); Red Blood Count 3.26 M/mm3 (4.2-5.4); Red Cell Distribution Width 15.5 % (11.5-14.5); White Blood Count 6.3 K/mm3 (4.5-10.0)
[2022-01-20 19:51] LABS: Alanine Aminotransferase 20 U/L (4-35); Albumin Level 3.2 g/dL (3.5-5.1); Alkaline Phosphatase 110 U/L (38-126); Anion Gap 5 mmol/L (8-16); Aspartate Amino Transferase 24 U/L (14-36); Bilirubin,Total 0.5 mg/dL (0.2-1.3); Blood Urea Nitrogen 33 mg/dL (7-17); Calcium 8.3 mg/dL (8.4-10.2); Carbon Dioxide 29 mmol/L (22-30); Chloride 105 mmol/L (98-107); Estimated CRCL calculation 30 ml/min; Estimated Glomerular Filt Rate 26; Glucose 137 mg/dL (65-110); Potassium 4.6 mmol/L (3.4-5.0); Sodium 139 mmol/L (137-145)
[2022-01-20 19:52] LABS: Prothrombin Time 12.7 Seconds (11.1-14.7)
[2022-01-20 19:55] LABS: Glucose Point of Care 123 mg/dl (65-105)
[2022-01-20 20:03] LABS: NT Pro B Type Natriuretic Pept 2950 pg/mL (5-100)
--- NOTE | 2022-01-20 20:34 | ED.GENADULT ---
HPI - General Adult General Chief complaint: Extremity Problem,Nontraumatic Stated complaint: weight gain, blood sugar up and down Time Seen by Provider: 01/20/22 18:27 Source: patient and family Mode of arrival: wheelchair Limitations: no limitations History of Present Illness HPI narrative: 76-year-old with a history of hypertension, CHF, CKD, diabetes, neuropathy, wheelchair-bound was brought in by daughter with complaints of leg edema and weight gain of 20 pounds over the last 1-1/2 months. She presently denies any chest pain, patient states that she has COPD and she gets short of breath but nothing unusual. She states that she is taking Lasix only once a day was supposed to take twice a day because of lack of mobility she only takes only once a day. Related Data Home Medications Medication Instructions Recorded Confirmed ezetimibe 10 mg tablet 10 mg PO DAILY 12/07/19 01/07/22 fenofibrate 160 mg tablet 160 mg PO DAILY 12/07/19 01/07/22 gabapentin 300 mg capsule 300 mg PO TID 12/07/19 01/07/22 ergocalciferol (vitamin D2) 1,250 mcg PO WEEKLY 02/22/21 01/07/22 glipizide 10 mg PO BID 02/22/21 01/07/22 Januvia 100 mg PO DAILY 07/22/21 01/07/22 atorvastatin 80 mg PO DAILY 07/22/21 01/07/22 B-complex with vitamin C 1 cap PO DAILY 01/07/22 01/07/22 apixaban 5 mg tablet 5 mg PO BID 01/07/22 01/07/22 budesonide-formoterol HFA 160 2 puff INHALATION Q12H 01/07/22 01/07/22 mcg-4.5 mcg/actuation aerosol inhaler carvedilol 6.25 mg tablet 6.25 mg PO Q12H 01/07/22 01/07/22 diphenoxylate-atropine 2.5 5 ml PO DAILY 01/07/22 01/07/22 mg-0.025 mg/5 mL oral liquid ergocalciferol (vitamin D2) 50 mcg 50 mcg PO DAILY 01/07/22 01/07/22 (2,000 unit) capsule furosemide 20 mg tablet 10 mg PO BID 01/07/22 01/07/22 insulin detemir U-100 100 unit/mL 40 unit SUBCUT QHS 01/07/22 01/07/22 (3 mL) subcutaneous pen insulin lispro 100 unit/mL 1 sliding scale dose SUBCUT 01/07/22 01/07/22 subcutaneous solution USEASDIRECTD melatonin 3 mg capsule 3 mg PO QHS 01/07/22 01/07/22 sitagliptin 100 mg tablet 100 mg PO DAILY 01/07/22 01/07/22 Allergies Allergy/AdvReac Type Severity Reaction Status Date / Time ceftriaxone Allergy Unknown Unknown Verified 01/07/22 14:28 clindamycin Allergy Unknown Anaphylaxis Verified 01/07/22 14:28 Penicillins Allergy Unknown Hives Verified 01/07/22 14:28 morphine AdvReac Unknown Vomiting Verified 01/07/22 14:28 nitroglycerin AdvReac Unknown Headache Verified 01/07/22 14:28 Review of Systems Review of Systems: All systems reviewed & are unremarkable except as noted in HPI and below Constitutional: Constitutional: Reports no additional constitutional complaints Eyes: Eyes: Reports no additional eye complaints Cardiovascular: Cardiovascular: Reports no additional cardiovascular complaints Respiratory: Respiratory: Reports no additional respiratory complaints Musculoskeletal: Musculoskeletal: Reports as per HPI Integumentary/Breasts: Skin/Breast: Reports system reviewed and no additional complaints, except as docu Neurologic: Reports system reviewed and no additional complaints, except as documented Psychiatric: Psychiatric: Reports no additional psychiatric complaints [facility] Past Medical History Medical History Anemia of chronic disease Cerebrovascular accident 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 Chronic obstructive pulmonary disease Congestive heart failure History of reduced ejection fraction with improvement in EF to 55% on most recent echo. Diastolic dysfunction also noted. 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 Depression with anxiety Diabetic peripheral neuropathy Dyslipidemia Essential hypertension Fibromyalgia Gastroesophageal reflux disease History of peptic ulcer Hypersomnia
== END 2022-01-20 21:31 | disposition home or self-care (01) ==
PROVIDERS: Emergency Provider Family Medicine; PCP Family Medicine
DX: N39.0 Urinary tract infection, site not specified (principal); R60.9 Edema, unspecified; I13.0 Hypertensive heart and chronic kidney disease with heart failure and stage 1 through stage 4 chronic kidney disease, or unspecified chronic kidney disease; E11.22 Type 2 diabetes mellitus with diabetic chronic kidney disease; N18.30 Chronic kidney disease, stage 3 unspecified; I50.9 Heart failure, unspecified; Z79.4 Long term (current) use of insulin; F41.9 Anxiety disorder, unspecified; F32.9 Major depressive disorder, single episode, unspecified; K21.9 Gastro-esophageal reflux disease without esophagitis; M19.90 Unspecified osteoarthritis, unspecified site
CPT/HCPCS: 36415; 71045; 80053; 81001; 82948; 83880; 84484; 85025; 85610; 87086; 93005; 99284

== ENCOUNTER 2022-01-25 07:50 | Outpatient (CLI) | payer MEDICARE, MEDICAID, SELFPAY ==
--- NOTE | 2022-02-02 18:16 | WPDSLEEPSTUD ---
Sleep Study Date of Study: 01/25/22 Ordering Provider: Swapnil Adorno MD Interpreting Physician: Linda Mcarthur DO Sleep Study Type: Split Polysomnogram Height: 1.68 m Weight: 108.862 kg Body Mass Index: 38.7 Neck Circumference (inches): 15 [place]: 14 Reason for Sleep Study Previously diagnosed SUZANNE. Current machine isn't working. Sleep History The patient is a 76-year-old female with coronary artery disease, atrial flutter on Eliquis, COPD, diastolic dysfunction, dyslipidemia, diabetes, hypertension, chronic kidney disease, anemia and previously diagnosed sleep apnea that had a sleep study ordered by her benefits consulting analyst. The patient had a Split Study on 04/03/2013 that showed an AHI of 29.9. She was started on CPAP 4 cm and titrated to BPAP 15/8 cm. No optimal pressure was found due to treatment-emergent centrals so it was recommended that she have an ASV titration. The patient occasionally awakens from sleep short of breath. She occasionally awakens at night with heartburn, belching or cough. She frequently snores and is as occasional loud enough that others complain. She occasionally has trouble sleeping when she has a cold. She occasionally wakes up gasping for air throughout the night. She frequently has breathing problems at night observed by herself or others. She denies sweating excessively at night. She denies having heart palpitations or irregular heartbeats during the night. She occasionally falls asleep during the day but never while driving. She denies sleep paralysis, cataplexy and hypnagogic / hypnopompic hallucinations. She denies having nightmares. She denies having thoughts racing through her mind. She rarely feels sad or depressed. She frequently has anxiety. She denies noticing parts of her body jerk. She denies kicking during the night. She frequently has crawling and aching feelings in her legs as well as leg pain during the night. She denies grinding her teeth during sleep and awakening jaw pain. She is constantly bothered by pain during the day and constantly awakened by pain during the night. She constantly wakes up feeling stiff in the morning with sore or achy muscles. She constantly wakes up with pain in the neck, spine and other joints. She goes to bed at 1:00 a.m. on both weekdays and weekends. It takes her a long time to fall asleep. She wakes up 3 times throughout the night. When she awakens, she will watch television. She wakes up at 6:00 a.m. on both weekdays and weekends. She typically gets 4 hours of sleep per night. She will move to the couch after waking and stay there until 8 or 9:00 a.m.. She currently lives in assisted living. She does not consume any caffeinated beverages within 2 hours of bedtime. She does not engage in physical exercise before bedtime. She will read and watch television before falling asleep. She will take naps in the afternoon or the evening but they are not refreshing. She will drink caffeinated products during the day. She denies alcohol and recreational drug use. [facility], [facility] Past Medical History Medical History Anemia of chronic disease Cerebrovascular accident 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 Chronic obstructive pulmonary disease Congestive heart failure History of reduced ejection fraction with improvement in EF to 55% on most recent echo. Diastolic dysfunction also noted. 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 Depression with anxiety Diabetic peripheral neuropathy Dyslipidemia Essential hypertension Fibromyalgia Gastroesophageal reflux disease History of peptic ulcer Hypersomnia Insulin dependent type 2 diabetes mellitus Obstructive sleep apnea on CPAP Osteoarthritis Stage III chronic kidney disease Baseline creatini
[2022-02-02 18:47] VITALS: BMI 38.7
== END 2022-01-26 06:36 ==
LOC: ANHCSM 07:51
PROVIDERS: PCP Family Medicine; Visit Provider Internal Medicine Pulmonary Disease
DX: G47.33 Obstructive sleep apnea (adult) (pediatric) (principal); Z99.89 Dependence on other enabling machines and devices
CPT/HCPCS: 95811

== ENCOUNTER 2022-02-02 11:54 | Outpatient (CLI) | payer MEDICARE, MEDICAID, SELFPAY ==
[2022-02-02 13:00] VITALS: PULSE 64; O2SAT 95
[2022-02-02 13:05] VITALS: PULSE 76; O2SAT 93
[2022-02-02 13:15] VITALS: PULSE 66; O2SAT 95
--- NOTE | 2022-02-02 13:55 | HOMEO2EVAL ---
Evaluation was performed at [facility] Home Oxygen Evaluation RC: Home Oxygen (O2) Evaluation Start: 02/02/22 13:50 Freq: Status: Active Protocol: RPE Activity Type Activity Date Activity User E-Sign Co-Sign Detail Recorded Client Recorded Date Recorded By Document 02/02/22 13:00 ALESIA [id number] 02/02/22 13:55 ALESIA Document 02/02/22 13:05 ALESIA [id number] 02/02/22 13:55 ALESIA Document 02/02/22 13:15 ALESIA [id number] 02/02/22 13:55 ALESIA 02/02/22 02/02/22 02/02/22 13:00 13:05 13:15 Home O2 Evaluation Test Phase Resting Exercise Resting Oxygen Delivery Room Air Room Air Room Air Pulse Oximetry (90-100 %) 95 93 95 Pulse Rate (60-100 beats/min) 64 76 66 Ambulation Distance (feet) 125 Ambulation Distance (meters) 38.09 Home Oxygen Evaluation Comments PT WALKED WITH WALKER, STOPPED AND SAT DOWN AT 75 FEET FOR REST AND THEN CONTINUED WITH WALK. PT USES MOTORIZED SCOOTER FOR MOBILITY Treatment Charges O2 Evaluation - Outpatient
--- NOTE | 2022-02-02 13:55 | PCRCNOTE ---
HOME O2 EVAL FAXED TO OFFICE STAFF.
--- NOTE | 2022-02-02 16:15 | WPDPFTINT ---
PFT Procedure Performed PFT Procedure Performed Spirometry with Pre/Post Bronchodilator Plethysmography (Lung Vol) Diffusing Cap (DLCO) Flow Vol Loop PFT Interpretation DOS: 02/02/2022 REQUESTING: Dr Adorno REASON FOR TESTING: dyspnea on exertion, post COVID PULMONARY FUNCTION TESTS Results are reliable and reproducible. Spirometry: FEV1 is 1.64 L, 89% predicted, normal. FVC is 2.28 L, 96% predicted, normal. FEV1/FVC is 72% predicted, normal. After bronchodilator administration, there is a nonstatistically significant increase in flows. Lung volumes: TLC is 5.3 L, 116%, normal. RV is 2.82, 130% predicted, mild air trapping. RV/TLC increased 53%. Airway resistance is 135%, increased. Diffusion: DLCO is 50% predicted. DLCO/VA is 75%, normalizes when adjusted for alveolar volume. Flow volume loop: There is mild coving of the expiratory limb. IMPRESSION: Normal spirometry, mild air trapping, moderate diffusion impairment. No response to bronchodilator. The lack of response to bronchodilator should not preclude use if clinically indicated. Clinical correlation is recommended. Dolly Theodore MD
== END 2022-02-02 11:55 | disposition home or self-care (01) ==
LOC: ANHPFT 11:58
PROVIDERS: PCP Family Medicine; Visit Provider Internal Medicine Pulmonary Disease
DX: R06.00 Dyspnea, unspecified (principal)
CPT/HCPCS: 94060; 94618; 94726; 94729

== ENCOUNTER 2022-02-17 07:27 | Outpatient (CLI) | payer MEDICARE, MEDICAID, SELFPAY ==
--- NOTE | 2022-03-03 14:36 | WPDSLEEPSTUD ---
Sleep Study Date of Study: 02/17/22 Ordering Provider: Swapnil Adorno MD Interpreting Physician: Linda Mcarthur DO Sleep Study Type: BiPAP Titration Height: 1.68 m Weight: 110.677 kg Body Mass Index: 39.4 Neck Circumference (inches): 15 [place]: 19 Reason for Sleep Study The patient had a Split Study on 01/25/2022 that showed an AHI of 68.1 on the diagnostic portion of the study. She was started on CPAP 5 cm H2O and titrated to 19 cm. The patient developed treatment-emergent centrals. No optimal pressure was found. Sleep History The patient is a 76-year-old female with coronary artery disease, atrial flutter on Eliquis, COPD, diastolic dysfunction, dyslipidemia, diabetes, hypertension, chronic kidney disease, anemia and previously diagnosed sleep apnea that had a sleep study ordered by her oracle business intelligence developer. The patient had a Split Study on 04/03/2013 that showed an AHI of 29.9. She was started on CPAP 4 cm and titrated to BPAP 15/8 cm. No optimal pressure was found due to treatment-emergent centrals so it was recommended that she have an ASV titration. The patient occasionally awakens from sleep short of breath. She occasionally awakens at night with heartburn, belching or cough. She frequently snores and is as occasional loud enough that others complain. She occasionally has trouble sleeping when she has a cold. She occasionally wakes up gasping for air throughout the night. She frequently has breathing problems at night observed by herself or others. She denies sweating excessively at night. She denies having heart palpitations or irregular heartbeats during the night. She occasionally falls asleep during the day but never while driving. She denies sleep paralysis, cataplexy and hypnagogic / hypnopompic hallucinations. She denies having nightmares. She denies having thoughts racing through her mind. She rarely feels sad or depressed. She frequently has anxiety. She denies noticing parts of her body jerk. She denies kicking during the night. She frequently has crawling and aching feelings in her legs as well as leg pain during the night. She denies grinding her teeth during sleep and awakening jaw pain. She is constantly bothered by pain during the day and constantly awakened by pain during the night. She constantly wakes up feeling stiff in the morning with sore or achy muscles. She constantly wakes up with pain in the neck, spine and other joints. She goes to bed at 1:00 a.m. on both weekdays and weekends. It takes her a long time to fall asleep. She wakes up 3 times throughout the night. When she awakens, she will watch television. She wakes up at 6:00 a.m. on both weekdays and weekends. She typically gets 4 hours of sleep per night. She will move to the couch after waking and stay there until 8 or 9:00 a.m.. She currently lives in assisted living. She does not consume any caffeinated beverages within 2 hours of bedtime. She does not engage in physical exercise before bedtime. She will read and watch television before falling asleep. She will take naps in the afternoon or the evening but they are not refreshing. She will drink caffeinated products during the day. She denies alcohol and recreational drug use. [facility] Past Medical History Medical History Anemia of chronic disease Cerebrovascular accident 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 Chronic obstructive pulmonary disease Congestive heart failure History of reduced ejection fraction with improvement in EF to 55% on most recent echo. Diastolic dysfunction also noted. 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 Depression with anxiety Diabetic peripheral neuropathy Dyslipidemia Essential hypertension Fibromyalgia Gastroesophageal reflux disease
[2022-03-04 17:22] VITALS: BMI 39.4
== END 2022-02-18 06:14 | disposition home or self-care (01) ==
LOC: ANHCSM 07:28
PROVIDERS: PCP Family Medicine; Visit Provider Internal Medicine Pulmonary Disease
DX: G47.33 Obstructive sleep apnea (adult) (pediatric) (principal)
CPT/HCPCS: 95811

== ENCOUNTER 2022-03-11 15:12 | Outpatient (CLI) | payer MEDICARE, MEDICAID, SELFPAY ==
--- NOTE | ~2022-03-11 | CT_ITS ---
EXAMINATION:CT diagnostic chest wo con DATE: 03/11/2022 15:34 INDICATION: COVID-19 pneumonia. TECHNIQUE: Computed tomography (CT) of the chest was performed without intravenous contrast. Automate d exposure control and iterative reconstruction technique were employed. The dose-length product (DLP ) was 690.07 mGy-cm. COMPARISON: Chest CT 07/22/2021 FINDINGS: There is mild emphysema. There are mild patchy groundglass opacities in all lobes. There is mild atelectasis in left lower lobe. No bronchiectasis or honeycombing. No pleural effusion. There i s a 13 mm nodule in left thyroid lobe, likely not clinically significant. Cardiomegaly is noted. Ther e are coronary artery calcifications. No pericardial effusion. The central pulmonary arteries are enl arged, consistent with pulmonary arterial hypertension. There is a small sliding hiatal hernia. There are gallstones in the gallbladder, which is contracted. Partially visualized is a 4.1 cm cyst in rig ht kidney. There is mild thoracic spondylosis. IMPRESSION: 1. Mild patchy groundglass opacities in all lobes, which may be atypical pneumonia, atelectasis, or c hronic lung disease. 2. Mild emphysema. Reviewed, dictated and finalized at location A. IMPRESSION: 1. Mild patchy groundglass opacities in all lobes, which may be atypical pneumo lena, atelectasis, or chronic lung disease. 2. Mild emphysema.
== END 2022-03-11 15:13 | disposition home or self-care (01) ==
PROVIDERS: PCP Family Medicine; Visit Provider Internal Medicine Pulmonary Disease
DX: U07.1 COVID-19 (principal); J12.82 Pneumonia due to coronavirus disease 2019; J43.9 Emphysema, unspecified; R91.8 Other nonspecific abnormal finding of lung field
CPT/HCPCS: 71250

== ENCOUNTER 2022-03-23 08:40 | Outpatient (CLI) | payer MEDICARE, MEDICAID, SELFPAY ==
--- NOTE | ~2022-03-23 | US_ITS ---
EXAMINATION: US abdomen complete DATE: 03/23/2022 10:12 INDICATION: CHF, chronic kidney disease stage III. TECHNIQUE: Multiple grayscale and Doppler ultrasound images of the abdomen were obtained. COMPARISON: Renal ultrasound 07/23/2021, CT abdomen and pelvis 05/18/2018. FINDINGS: The pancreas is obscured by bowel gas. The liver is normal with normal echogenicity and ech otexture. 1 cm left lobe calcification. No surface nodularity. Normal hepatopetal flow in the main po rtal vein. Hyperechoic mobile foci with shadowing within the gallbladder. The normal common bile duct measures 0.6. There was a positive sonographic Banda sign. The visualized portions of the inferior vena cava are normal. Aorta not visualized due to bowel gas. The right kidney measures 13.9 x 6.8 x 6.0 cm. The left kidney measures 11.6 x 5.1 x 4.5 cm. The kidn eys demonstrate normal parenchymal echogenicity. Bilateral cortical thinning. Bilateral renal cysts. There is mild right hydronephrosis. The spleen is normal in appearance and measures 11.3 cm. IMPRESSION: 1. Cholelithiasis with a positive sonographic Banda sign. Correlate clinically. 2. Bilateral renal cortical thinning and cysts. Mild right hydronephrosis. Reviewed, dictated and finalized at location K. IMPRESSION: 1. Cholelithiasis with a positive sonographic Banda sign. Correlate clinically . 2. Bilateral renal cortical thinning and cysts. Mild right hydronephrosis.
== END 2022-03-23 08:41 | disposition home or self-care (01) ==
PROVIDERS: PCP Family Medicine; Visit Provider Nurse Practitioner Adult Health
DX: N18.30 Chronic kidney disease, stage 3 unspecified (principal); I50.9 Heart failure, unspecified; K80.20 Calculus of gallbladder without cholecystitis without obstruction; N28.1 Cyst of kidney, acquired
CPT/HCPCS: 76700

== ENCOUNTER 2022-05-04 12:57 | Inpatient (IN) | payer MEDICARE, MEDICAID, SELFPAY ==
[2022-05-04] VITALS (7 sets, daily range): BP systolic 147; BP diastolic 64; PULSE 64–65; RESP 15–20; TEMP 36.3; O2SAT 92–100; BMI 40.8
--- NOTE | ~2022-05-04 | XR_ITS ---
XR knee LT 2V DATE: 05/09/2022 07:22 INDICATION: Osteoarthritis TECHNIQUE: [place] and [place] lateral views of left knee COMPARISON: 05/06/2022 left knee FINDINGS: Prominent enthesopathy of the patella at the quadriceps and patellar tendon insertions. Joint space narrowing and prominent particular spurring at the patellofemoral joint consistent with o steoarthritis. Extensive calcification of femoral, popliteal and trifurcation arteries. IMPRESSION: Osteoarthritis at patellofemoral joint Prominent arterial calcification Reviewed, dictated and finalized at location A.
--- NOTE | ~2022-05-04 | US_ITS ---
EXAMINATION: US knee asp inj w image LT DATE: 05/11/2022 14:52 INDICATION: Left knee joint effusion TECHNIQUE: The procedure including the risks and benefits was discussed with the patient. Risks discu ssed included bleeding and infection. The patient understood the risks and agreed to proceed. The sk in overlying the suprapatellar pouch of the left knee was prepped and draped in usual sterile fashion . Anesthetic was administered with 1% lidocaine subcutaneously. A 21-gauge needle was advanced under continuous ultrasound observation into the small amount of fluid at the suprapatellar pouch of the l eft knee. Fluid was aspirated and sent to the lab for studies as ordered by the referring physician. The needle was removed and a sterile dressing applied. Post procedure ultrasound demonstrated no hemo rrhage. FINDINGS: Ultrasound images demonstrate the aspiration needle advanced into a small amount of fluid a t the suprapatellar pouch. 6 mm of clear reddish serosanguineous fluid was aspirated. IMPRESSION: 1. Successful Ultrasound-guided left knee joint aspiration yielding 6 mm serosanguineous fluid which was sent to the lab.. Reviewed, dictated and finalized at location A. IMPRESSION: 1. Successful Ultrasound-guided left knee joint aspiration yielding 6 mm serosa nguineous fluid which was sent to the lab..
--- NOTE | ~2022-05-04 | US_ITS ---
EXAMINATION: US renal BI, US retroperitoneal duplex ltd DATE: 05/06/2022 09:01 INDICATION: Renal failure and hypertension TECHNIQUE: 1. Multiple grayscale and color Doppler images of the kidneys were obtained. 2. Multiple grayscale and pulsed Doppler images of the aorta and renal arteries were obtained. COMPARISON: None. FINDINGS: Kidneys: The right kidney measures 10.9 x 4.3 x 5.9 cm. The left kidney measures 11.3 x 4.1 x 5.2 cm. The kidn eys demonstrate normal echogenicity with bilateral diffuse mild cortical thinning.. Bilateral anechoi c renal cysts measuring up to 3.5 cm in maximal diameter in the right kidney. 2.0 cm exophytic cyst a t the lower pole of the left kidney. There is no hydronephrosis in either kidney. No renal stones id entified. The bladder is nonvisualized, likely decompressed. Instantly noted shadowing gallstone in t he gallbladder. Renal arteries/vascular: The aorta peak systolic velocity is 115 cm/s. The right renal artery peak systolic velocity is 42 cm/ s in the proximal segment, 47 cm/s in the mid segment, and 50 cm/s in the distal segment. The left re nal artery peak systolic velocity is 53 cm/s in the proximal segment, 40 cm/s in the mid segment, and 48 cm/s in the distal segment. IMPRESSION: 1. Bilateral mild diffuse renal cortical atrophy and bilateral renal cysts. No hydronephrosis. 2. No Doppler evidence of renal artery stenosis. 3. Cholelithiasis. Reviewed, dictated and finalized at location A. IMPRESSION: 1. Bilateral mild diffuse renal cortical atrophy and bilateral renal cysts. No hydronephrosis. 2. No Doppler evidence of renal artery stenosis. 3. Cholelithiasis.
--- NOTE | ~2022-05-04 | XR_ITS ---
EXAMINATION: XR knee LT 2V DATE: 05/06/2022 17:16 INDICATION: Left knee pain TECHNIQUE: Two views of the left knee were obtained. COMPARISON: 07/11/2016 FINDINGS: Bone alignment is normal. There is no fracture. There is moderate tricompartmental osteoart hritis characterized by marginal osteophytes. There is a large joint effusion. Calcified atherosclero sis is noted. IMPRESSION: 1. Tricompartmental osteoarthritis with large joint effusion. No fracture identified. Reviewed, dictated and finalized at location F. IMPRESSION: 1. Tricompartmental osteoarthritis with large joint effusion. No fracture ident ified.
--- NOTE | ~2022-05-04 | XR_ITS ---
EXAMINATION: XR chest 1V portable INDICATION: Shortness of breath TECHNIQUE: Portable AP chest at 1332 hours COMPARISON: 01/20/2022 FINDINGS: The lungs are free of acute opacities. No pleural effusion or pneumothorax. The cardiomedia stinal silhouette is normal. The visualized bones and soft tissues are unremarkable. IMPRESSION: 1. No acute cardiopulmonary abnormality. Reviewed, dictated and finalized at location A.
--- NOTE | 2022-05-04 13:14 | ECG_ITS ---
Measurements Intervals [place] Rate: 63 P: 238 DE: 116 QRS: -46 QRSD: 151 T: 54 QT: 476 QTc: 489 Interpretive Statements SINUS RHYTHM LEFT AXIS DEVIATION [QRS AXIS < -30] INTRAVENTRICULAR CONDUCTION DELAY [130+ ms QRS DURATION] COMPARED TO ECG 01/20/2022 18:54:22 NO SIGNIFICANT CHANGE Electronically Signed On 05-04-2022 19:35:27 CDT by Mary Mark M.D.
--- NOTE | 2022-05-04 13:23 | ED.RECABL ---
HPI - Recheck/Abnormal Lab/Rx General Chief Complaint: Recheck/Abnormal Lab/Rx Stated Complaint: abnormal labs Time Seen by Provider: 05/04/22 13:02 History of Present Illness HPI narrative: Pt sent here for wosening kidney function on outpatient labs. Pt admits to swelling in abdomen but not legs. Pt has some mild SOB but no CP. Related Data Home Medications Medication Instructions Recorded Confirmed ezetimibe 10 mg tablet 10 mg PO DAILY 12/07/19 02/18/22 fenofibrate 160 mg tablet 160 mg PO DAILY 12/07/19 02/18/22 gabapentin 300 mg capsule 300 mg PO TID 12/07/19 02/18/22 ergocalciferol (vitamin D2) 1,250 1,250 mcg PO WEEKLY 02/22/21 02/18/22 mcg (50,000 unit) capsule glipizide 10 mg tablet 10 mg PO BID 02/22/21 02/18/22 atorvastatin 80 mg tablet 80 mg PO DAILY 07/22/21 02/18/22 sitagliptin 100 mg tablet (Januvia) 100 mg PO DAILY 07/22/21 02/18/22 B-complex with vitamin C 1 cap PO DAILY 01/07/22 02/18/22 apixaban 5 mg tablet (Eliquis) 5 mg PO BID 01/07/22 02/18/22 budesonide-formoterol HFA 160 2 puff inhalation Q12H 01/07/22 02/18/22 mcg-4.5 mcg/actuation aerosol inhaler (Symbicort) diphenoxylate-atropine 2.5 5 ml PO DAILY 01/07/22 02/18/22 mg-0.025 mg/5 mL oral liquid ergocalciferol (vitamin D2) 50 mcg 50 mcg PO DAILY 01/07/22 02/18/22 (2,000 unit) capsule insulin detemir U-100 100 unit/mL 40 unit subcut QHS 01/07/22 02/18/22 (3 mL) subcutaneous pen (Levemir FlexTouch U-100 Insulin) insulin lispro 100 unit/mL 1 sliding scale dose subcut 01/07/22 02/18/22 subcutaneous solution USEASDIRECTD melatonin 3 mg capsule 3 mg PO QHS 01/07/22 02/18/22 sitagliptin 100 mg tablet (Januvia) 100 mg PO DAILY 01/07/22 02/18/22 Allergies Allergy/AdvReac Type Severity Reaction Status Date / Time ceftriaxone Allergy Unknown Unknown Verified 02/18/22 10:10 clindamycin Allergy Unknown Anaphylaxis Verified 02/18/22 10:10 Penicillins Allergy Unknown Hives Verified 02/18/22 10:10 morphine AdvReac Unknown Vomiting Verified 02/18/22 10:10 nitroglycerin AdvReac Unknown Headache Verified 02/18/22 10:10 Review of Systems Review of Systems: All systems reviewed & are unremarkable except as noted in HPI and below PMFSH Past Medical History Medical History Anemia of chronic disease Cerebrovascular accident 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 Chronic obstructive pulmonary disease Congestive heart failure History of reduced ejection fraction with improvement in EF to 55% on most recent echo. Diastolic dysfunction also noted. 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 Depression with anxiety Diabetic peripheral neuropathy Dyslipidemia Essential hypertension Fibromyalgia Gastroesophageal reflux disease History of peptic ulcer Hypersomnia Insulin dependent type 2 diabetes mellitus Obstructive sleep apnea on CPAP Osteoarthritis Stage III chronic kidney disease Baseline creatinine ranges between 1.3 and 1.60. Vitamin D deficiency Surgical History Surgical History History of appendectomy History of cardiac catheterization (~07/2013) Normal coronaries although anomalous left coronary artery arising from the right ostium was noted. History of hysterectomy (~1979) History of left breast biopsy Benign pathology. Family History Family History Father Malignant neoplasm of prostate Heart disease Mother Esophageal cancer Sibling Diabetes mellitus Daughter Alcoholism Social History Social History Social History: The patient is and lives With her daughter. She is a lifelong nonsmoker however she reports significant secon
[2022-05-04 13:32] LABS: Basophils Percent Auto 0.6 % (0.2-1.2); Eosinophils Absolute Auto 0.2 K/mm3 (0-0.3); Eosinophils Percent Auto 3.3 % (0-4.4); Hematocrit 31.5 % (37.0-47.0); Hemoglobin 9.8 g/dL (12.0-15.0); Immature Granulocyte Absolute 0.02 K/mm3 (0.00-0.031); Immature Granulocyte Percent A 0.4 % (0-0.5); Lymphocytes Percent Auto 16.7 % (18.3-44.2); Mean Corpuscular HGB Conc 31.1 g/dl (32-36); Mean Corpuscular Hemoglobin 31.4 pg (26-34); Mean Platelet Volume 9.5 fl (7.4-10.4); Monocytes Absolute Auto 0.3 K/mm3 (0.1-0.6); Monocytes Percent Auto 5.4 % (2.6-8.5); Neutrophils Percent Auto 73.6 % (45.5-73.1); Platelet Count Result 278 k/mm3 (150-375); Red Blood Count 3.12 M/mm3 (4.2-5.4); Red Cell Distribution Width 15.4 % (11.5-14.5); White Blood Count 5.4 K/mm3 (4.5-10.0)
[2022-05-04 13:46] LABS: Alanine Aminotransferase 12 U/L (6-35); Albumin Level 3.6 g/dL (3.5-5.1); Alkaline Phosphatase 72 U/L (38-126); Anion Gap 5 mmol/L (8-16); Aspartate Amino Transferase 19 U/L (14-36); Bilirubin,Total 0.2 mg/dL (0.2-1.3); Blood Urea Nitrogen 57 mg/dL (7-17); Calcium 8.7 mg/dL (8.4-10.2); Carbon Dioxide 29 mmol/L (22-30); Chloride 102 mmol/L (98-107); Estimated CRCL calculation 20 ml/min; Estimated Glomerular Filt Rate 16; Glucose 267 mg/dL (65-110); Potassium 4.6 mmol/L (3.4-5.0); Sodium 136 mmol/L (137-145)
[2022-05-04 13:54] LABS: NT Pro B Type Natriuretic Pept 1520 pg/mL (5-100)
[2022-05-04 21:56] LABS: Glucose Point of Care 236 mg/dl (65-105)
--- NOTE | 2022-05-04 22:32 | PM.IMHP ---
H&P: HPI History of Present Illness Date/Time: 05/04/22 3335 Chief Complaint: Abnormal laboratories Narrative: Ms. Alvarado is a 76-year-old female who presented emergency room after seeing her primary care provider and being told that her laboratories are abnormal. Patient states that she has a known history of chronic kidney disease and she went to see her primary care provider for some increasing edema and routine follow-up and laboratories were drawn and she was told to come to the emergency room. Patient denies any abnormal shortness of breath, chest discomfort, lightheadedness, dizziness, syncopal, or near syncopal episodes. Patient states that she feels that her abdomen is quite swollen. Patient states that she has gained 20 lb in the last 7 months. Patient states she has been taking all medications without any difficulty and there has been a recent change in her water pill, but she is unsure of the amount of change. Patient has a known history of COPD, CHF, CVA, diabetes mellitus, and obstructive sleep apnea. Patient's most recent echo Doppler was from 2020 that showed a left ventricular systolic function normal with an estimated ejection fraction 55-60%. Moderately increased left ventricular wall thickness. Left ventricular diastolic dysfunction at grade 1. Moderately enlarged left atrium, moderately calcified annulus of the mitral valve, trace tricuspid valve regurgitation. Review of Systems Review of Systems: A 12 point review of systems was completed patient all pertinent positive and negative per HPI the remainder are unremarkable. [facility] Past Medical History Medical History Anemia of chronic disease Cerebrovascular accident 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 Chronic obstructive pulmonary disease Congestive heart failure History of reduced ejection fraction with improvement in EF to 55% on most recent echo. Diastolic dysfunction also noted. 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 Depression with anxiety Diabetic peripheral neuropathy Dyslipidemia Essential hypertension Fibromyalgia Gastroesophageal reflux disease History of peptic ulcer Hypersomnia Insulin dependent type 2 diabetes mellitus Obstructive sleep apnea on CPAP Osteoarthritis Stage III chronic kidney disease Baseline creatinine ranges between 1.3 and 1.60. Vitamin D deficiency Surgical History Surgical History History of appendectomy History of cardiac catheterization (~07/2013) Normal coronaries although anomalous left coronary artery arising from the right ostium was noted. History of hysterectomy (~1979) History of left breast biopsy Benign pathology. Family History Family History Father Malignant neoplasm of prostate Heart disease Mother Esophageal cancer Sibling Diabetes mellitus Daughter Alcoholism Social History Social History Social History: The patient is and lives With her daughter. 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 No alcohol or illicit substance abuse. She designates her daughter, Mikki Herrera, as her surrogate decision maker and she wishes to be a full code. Smoking status: Never smoker Alcohol intake: former Substance use: never Substance use type: does not use Spiritual care concerns: No Meds Home Medications and Allergies Home Medications Medication Instructions Recorded Confirmed Type ezetimibe 10 mg tablet 10 mg PO DAILY 12/07/19 05/04/22 History fenofibrate 160 mg tablet 160
[2022-05-04] MEDS: INSULIN GLARGINE (*BKC) 100 UNITS/ML 10 UNITS SUB-Q (23:45)
[2022-05-05] VITALS (13 sets, daily range): BP systolic 112–155; BP diastolic 52–73; PULSE 62–76; RESP 16–18; TEMP 35.8–36.6; O2SAT 94–98
--- NOTE | 2022-05-05 01:02 | ADMGEN ---
This patient, Sarah Alvarado, was admitted to Medical Room 348-01. Patient/family oriented to hospital policies and general routines including ID bracelet, bed and alarms, visiting hours, pain management, procedures, bathroom and other care routines, personal items, smoking policy, room service/diet, and visiting hours. Information on how to activate the Rapid Response Team has been discussed. Patient/Family are encouraged to report perceived risks to care and to ask questions if they do not understand what they are told or what they should do.
[2022-05-05 05:45] LABS: Basophils Percent Auto 0.6 % (0.2-1.2); Eosinophils Absolute Auto 0.3 K/mm3 (0-0.3); Hematocrit 29.9 % (37.0-47.0); Hemoglobin 9.2 g/dL (12.0-15.0); Immature Granulocyte Absolute 0.02 K/mm3 (0.00-0.031); Immature Granulocyte Percent A 0.4 % (0-0.5); Lymphocytes Absolute Auto 1.33 K/mm3 (0.9-3.2); Lymphocytes Percent Auto 24.9 % (18.3-44.2); Mean Corpuscular HGB Conc 30.8 g/dl (32-36); Mean Corpuscular Hemoglobin 31.2 pg (26-34); Mean Corpuscular Volume 101.4 fl (80-100); Mean Platelet Volume 9.2 fl (7.4-10.4); Monocytes Absolute Auto 0.5 K/mm3 (0.1-0.6); Monocytes Percent Auto 9.9 % (2.6-8.5); Neutrophils Absolute Auto 3.2 K/mm3 (1.3-6.7); Neutrophils Percent Auto 59.2 % (45.5-73.1); Platelet Count Result 249 k/mm3 (150-375); Red Blood Count 2.95 M/mm3 (4.2-5.4); Red Cell Distribution Width 15.4 % (11.5-14.5); White Blood Count 5.4 K/mm3 (4.5-10.0)
[2022-05-05 05:56] LABS: Anion Gap 2 mmol/L (8-16); Blood Urea Nitrogen 57 mg/dL (7-17); Calcium 8.4 mg/dL (8.4-10.2); Carbon Dioxide 30 mmol/L (22-30); Chloride 106 mmol/L (98-107); Estimated CRCL calculation 20 ml/min; Estimated Glomerular Filt Rate 16; Glucose 116 mg/dL (65-110); Magnesium 2.4 mg/dL (1.6-2.3); Potassium 4.4 mmol/L (3.4-5.0); Sodium 138 mmol/L (137-145)
[2022-05-05 07:24] LABS: Glucose Point of Care 142 mg/dl (65-105)
[2022-05-05] MEDS: carvediloL 12.5 MG TABLET PO ×2 (08:10→20:30)
[2022-05-05] MEDS: glipiZIDE 5 MG TABLET 10 MG PO ×2 (08:10→16:34)
[2022-05-05] MEDS: DOCUSATE SODIUM 100 MG CAPSULE PO (08:10)
[2022-05-05] MEDS: diphenhydrAMINE HCl CAP 25 MG CAPSULE PO (08:10)
[2022-05-05] MEDS: ERGOCALCIFEROL 50,000 UNIT CAPSULE 50000 UNITS PO (08:11)
[2022-05-05] MEDS: PANTOPRAZOLE 40 MG TABLET PO (08:11)
[2022-05-05] MEDS: GABAPENTIN 300 MG CAPSULE PO ×2 (08:11→16:35)
[2022-05-05] MEDS: APIXABAN 5 MG TABLET PO ×2 (08:11→20:31)
[2022-05-05] MEDS: ATORVASTATIN 40 MG TABLET 80 MG PO (08:11)
[2022-05-05] MEDS: METOPROLOL SUCCINATE EXT REL 25 MG TABCR PO (08:11)
[2022-05-05] MEDS: AMIODARONE HCL 200 MG TABLET PO (08:11)
[2022-05-05] MEDS: FENOFIBRATE 160 MG TABLET PO (08:11)
[2022-05-05] MEDS: EZETIMIBE 10 MG TABLET PO (08:11)
[2022-05-05] MEDS: INSULIN ASPART (*BKC) 100 UNITS/ML SUB-Q ×3 (08:12→16:35)
[2022-05-05] MEDS: FUROSEMIDE INJ 40 MG/4 ML VIAL IV PUSH (08:14)
[2022-05-05 11:40] LABS: Glucose Point of Care 160 mg/dl (65-105)
--- NOTE | 2022-05-05 13:45 | PM.IMPN ---
Progress Note: A&P Assessment and Plan (1) Acute kidney injury superimposed on chronic kidney disease: Code(s): N17.9 - Acute kidney failure, unspecified; N18.9 - Chronic kidney disease, unspecified Status: Acute Assessment and Plan: BUN and creatinine elevated baseline would be 1.9-2 creatinine is 2.9. consult Nephrology and appreciate further recommendations. Trend intake and output closely. daily weights. renally adjusted avoid any nephrotoxic agents (2) SUZANNE (obstructive sleep apnea): Code(s): G47.33 - Obstructive sleep apnea (adult) (pediatric) Status: Acute Assessment and Plan: Did discuss in depth with patient the need for total compliance with sleep apnea and CPAP. Will continue with home CPAP if this can be brought in if not we will provide a CPAP for the patient (3) Diabetes: Code(s): E11.9 - Type 2 diabetes mellitus without complications Status: Chronic Assessment and Plan: Current glucose is 116 Continue lantus, glipizide and januvia ISS Accu cheks achs Trend glucose Adjust therapy as indicated (4) Essential hypertension: Code(s): I10 - Essential (primary) hypertension Status: Chronic Assessment and Plan: 112/ currently Continue home medications Trend BP adjust therapy as indicted (5) Urinary retention: Code(s): R33.9 - Retention of urine, unspecified Status: Acute Assessment and Plan: Reports inability to get a stream going She also stated that she is voiding then having to go back to the bathroom in 20 minutes Unreliable bladder scan Urinary catheter installed for better I&O to ensure that she is not retaining Will start flomax as well Time Spent With Patient Time with patient: Greater than 35 minutes Subjective Date/time seen: 05/05/221344 Interval history: 05/05/221344 Patient stated that she was just tired today. She stated that she has been having issues urinating and stated that a lot of times she goes the bathroom she says the toilet for while and tries to go. She stated that sometimes she goes but then it stops and she tries to push on her bladder to get her to go more. She also stated that she isn't fully emptying that she was back to the bathroom 20 minutes after she gets done with the bathroom. She stated that she is unaware of how long this has been going on. She does not feel bad otherwise. She denies any chest pain, shortness of breath, nausea, vomiting, diarrhea, and constipation. She was really concerned that she has been gaining a lot of weight. She is also concerned that she is not going to be able to go back to [facility] if she has a urinary catheter. Told her that she will be able to do it herself and all she would need to do is empty the bag. 05/04/22? [id number] Ms. Alvarado is a 76-year-old female who presented emergency room after seeing her primary care provider and being told that her laboratories are abnormal.? Patient states that she has a known history of chronic kidney disease and she went to see her primary care provider for some increasing edema and routine follow-up and laboratories were drawn and she was told to come to the emergency room.? Patient denies any abnormal shortness of breath, chest discomfort, lightheadedness, dizziness, syncopal, or near syncopal episodes.? Patient states that she feels that her abdomen is quite swollen.? Patient states that she has gained 20 lb in the last 7 months.? Patient states she has been taking all medications without any difficulty and there has been a recent change in her water pill, but she is unsure of the amount of change. Patient has a known history of COPD, CHF, CVA, diabetes mellitus, and obstructive sleep apnea.? Patient's most recent echo Doppler was from 2020 that showed a left ventricular systolic function normal with an estimated ejecti
[2022-05-05 16:26] LABS: Glucose Point of Care 109 mg/dl (65-105)
[2022-05-05] MEDS: HYDROcodone/acetaminophen (*CRX) 10-325 MG TABLET 1 TAB PO (18:54)
--- NOTE | 2022-05-05 20:19 | PCRCNOTE ---
Pt refusing 1999 MDI. Pt states that her MD told her she does not have COPD and to stop taking her Symbicort. She stated she no longer needs inhaled corticosteroids and that she does not have any respiratory symptoms. RT notified NETTE.
[2022-05-05 20:26] LABS: Urea Random Urine 372 MG/DL
[2022-05-05] MEDS: INSULIN GLARGINE (*BKC) 100 UNITS/ML 10 UNITS SUB-Q (20:31)
[2022-05-05 20:33] LABS: Sodium Urine Random 89 meq/L
[2022-05-05 20:36] LABS: Glucose Point of Care 249 mg/dl (65-105)
[2022-05-06] VITALS (12 sets, daily range): BP systolic 114–135; BP diastolic 47–67; PULSE 61–76; RESP 17–20; TEMP 36.1–37; O2SAT 94–95
[2022-05-06] MEDS: HYDROcodone/acetaminophen (*CRX) 10-325 MG TABLET 1 TAB PO ×3 (02:49→17:26)
[2022-05-06 06:04] LABS: Basophils Percent Auto 0.4 % (0.2-1.2); Eosinophils Absolute Auto 0.2 K/mm3 (0-0.3); Eosinophils Percent Auto 3.3 % (0-4.4); Hematocrit 32.4 % (37.0-47.0); Hemoglobin 9.9 g/dL (12.0-15.0); Immature Granulocyte Absolute 0.04 K/mm3 (0.00-0.031); Immature Granulocyte Percent A 0.6 % (0-0.5); Lymphocytes Absolute Auto 1.18 K/mm3 (0.9-3.2); Lymphocytes Percent Auto 17.5 % (18.3-44.2); Mean Corpuscular HGB Conc 30.6 g/dl (32-36); Mean Corpuscular Hemoglobin 31.5 pg (26-34); Mean Corpuscular Volume 103.2 fl (80-100); Mean Platelet Volume 9.3 fl (7.4-10.4); Monocytes Absolute Auto 0.5 K/mm3 (0.1-0.6); Monocytes Percent Auto 7.7 % (2.6-8.5); Neutrophils Absolute Auto 4.8 K/mm3 (1.3-6.7); Neutrophils Percent Auto 70.5 % (45.5-73.1); Platelet Count Result 261 k/mm3 (150-375); Red Blood Count 3.14 M/mm3 (4.2-5.4); Red Cell Distribution Width 15.7 % (11.5-14.5); White Blood Count 6.8 K/mm3 (4.5-10.0)
[2022-05-06 06:16] LABS: Alanine Aminotransferase 12 U/L (6-35); Albumin Level 3.5 g/dL (3.5-5.1); Alkaline Phosphatase 71 U/L (38-126); Anion Gap 7 mmol/L (8-16); Aspartate Amino Transferase 21 U/L (14-36); Bilirubin,Total 0.3 mg/dL (0.2-1.3); Blood Urea Nitrogen 60 mg/dL (7-17); Calcium 8.3 mg/dL (8.4-10.2); Carbon Dioxide 27 mmol/L (22-30); Chloride 104 mmol/L (98-107); Estimated CRCL calculation 18 ml/min; Estimated Glomerular Filt Rate 14; Glucose 157 mg/dL (65-110); Magnesium 2.4 mg/dL (1.6-2.3); Potassium 4.9 mmol/L (3.4-5.0); Sodium 138 mmol/L (137-145)
[2022-05-06] MEDS: FLUTICASONE/SALMETEROL 115-21 MCG INHALER 1 PUFF 2 PUFF INHALATION (07:32)
[2022-05-06 07:36] LABS: Glucose Point of Care 143 mg/dl (65-105)
[2022-05-06] MEDS: DOCUSATE SODIUM 100 MG CAPSULE PO (09:14)
[2022-05-06] MEDS: FENOFIBRATE 160 MG TABLET PO (09:14)
[2022-05-06] MEDS: ATORVASTATIN 40 MG TABLET 80 MG PO (09:14)
[2022-05-06] MEDS: TAMSULOSIN HCL 0.4 MG CAPSULE PO (09:14)
[2022-05-06] MEDS: APIXABAN 5 MG TABLET PO ×2 (09:14→21:08)
[2022-05-06] MEDS: glipiZIDE 5 MG TABLET 10 MG PO ×2 (09:14→16:48)
[2022-05-06] MEDS: diphenhydrAMINE HCl CAP 25 MG CAPSULE PO (09:14)
[2022-05-06] MEDS: GABAPENTIN 300 MG CAPSULE PO ×2 (09:14→16:54)
[2022-05-06] MEDS: PANTOPRAZOLE 40 MG TABLET PO (09:14)
[2022-05-06] MEDS: EZETIMIBE 10 MG TABLET PO (09:14)
[2022-05-06] MEDS: METOPROLOL SUCCINATE EXT REL 25 MG TABCR PO (09:15)
[2022-05-06] MEDS: FUROSEMIDE INJ 40 MG/4 ML VIAL IV PUSH (09:15)
[2022-05-06] MEDS: carvediloL 12.5 MG TABLET PO ×2 (09:15→21:08)
[2022-05-06] MEDS: AMIODARONE HCL 200 MG TABLET PO (09:15)
--- NOTE | 2022-05-06 11:00 | PM.IMPN ---
Progress Note: A&P Assessment and Plan (1) Acute kidney injury superimposed on chronic kidney disease: Code(s): N17.9 - Acute kidney failure, unspecified; N18.9 - Chronic kidney disease, unspecified Status: Acute Assessment and Plan: BUN and creatinine Increased today baseline would be 1.9-2 creatinine is 3.2 consult Nephrology and appreciate further recommendations. Trend intake and output closely. Lasix has been stopped could be secondary to progressive chronic kidney disease or obstruction renal ultrasounds performed and showed no hydronephrosis FEUrea indicates intrinsic renal disease with a score of 42.2% daily weights. renally adjusted avoid any nephrotoxic agents (2) SUZANNE (obstructive sleep apnea): Code(s): G47.33 - Obstructive sleep apnea (adult) (pediatric) Status: Acute Assessment and Plan: Did discuss in depth with patient the need for total compliance with sleep apnea and CPAP. Will continue with home CPAP if this can be brought in if not we will provide a CPAP for the patient (3) Diabetes: Code(s): E11.9 - Type 2 diabetes mellitus without complications Status: Chronic Assessment and Plan: Current glucose is 157 Continue lantus, glipizide and januvia ISS Accu cheks achs Trend glucose Adjust therapy as indicated (4) Essential hypertension: Code(s): I10 - Essential (primary) hypertension Status: Chronic Assessment and Plan: 114/47 currently Continue home medications Trend BP adjust therapy as indicted (5) Urinary retention: Code(s): R33.9 - Retention of urine, unspecified Status: Acute Assessment and Plan: Reports inability to get a stream going She also stated that she is voiding then having to go back to the bathroom in 20 minutes Unreliable bladder scan Urinary catheter installed for better I&O to ensure that she is not retaining Will start flomax as well Time Spent With Patient Time with patient: Greater than 35 minutes Subjective Date/time seen: 05/06/22 1100 Interval history: 05/06/22 1100 patient was lying in bed today. Patient stated that she is having some pain in her left knee. otherwise she does not feel bad at all. Renal ultrasounds were completed today which did not show any hydronephrosis or obstruction at this time. However a renal ultrasound done last month did show mild hydronephrosis. nephrology has been consulted and awaiting recommendations. Patient denies any chest pain, shortness of breath, nausea, vomiting, diarrhea, constipation, weakness or fatigue patient is very concerned about her not being on a diet due to the NPO for the ultrasounds however diet was restarted. 05/05/22 1345 Patient stated that she was just tired today. She stated that she has been having issues urinating and stated that a lot of times she goes the bathroom she says the toilet for while and tries to go. She stated that sometimes she goes but then it stops and she tries to push on her bladder to get her to go more. She also stated that she isn't fully emptying that she was back to the bathroom 20 minutes after she gets done with the bathroom. She stated that she is unaware of how long this has been going on. She does not feel bad otherwise. She denies any chest pain, shortness of breath, nausea, vomiting, diarrhea, and constipation. She was really concerned that she has been gaining a lot of weight. She is also concerned that she is not going to be able to go back to [facility] if she has a urinary catheter. Told her that she will be able to do it herself and all she would need to do is empty the bag. 05/04/22? 4597 Ms. Alvarado is a 76-year-old female who presented emergency room after seeing her primary care provider and being told that her laboratories are abnormal.? Patient states that she has a known history
--- NOTE | 2022-05-06 11:00 | P.PNIM_ITS ---
Progress Note: A&P Assessment and Plan (1) Acute kidney injury superimposed on chronic kidney disease: Code(s): N17.9 - Acute kidney failure, unspecified; N18.9 - Chronic kidney disease, unspecified Status: Acute Assessment and Plan: * BUN and creatinine Increased today * baseline would be 1.9-2 * creatinine is 3.2 * consult Nephrology and appreciate further recommendations. * Trend intake and output closely. * Lasix has been stopped * could be secondary to progressive chronic kidney disease or obstruction * renal ultrasounds performed and showed no hydronephrosis * FEUrea indicates intrinsic renal disease with a score of 42.2% * daily weights. * renally adjusted * avoid any nephrotoxic agents (2) SUZANNE (obstructive sleep apnea): Code(s): G47.33 - Obstructive sleep apnea (adult) (pediatric) Status: Acute Assessment and Plan: * Did discuss in depth with patient the need for total compliance with sleep apnea and CPAP. * Will continue with home CPAP if this can be brought in if not we will provide a CPAP for the patient (3) Diabetes: Code(s): E11.9 - Type 2 diabetes mellitus without complications Status: Chronic Assessment and Plan: * Current glucose is 157 * Continue lantus, glipizide and januvia * ISS * Accu cheks achs * Trend glucose * Adjust therapy as indicated (4) Essential hypertension: Code(s): I10 - Essential (primary) hypertension Status: Chronic Assessment and Plan: * 114/47 currently * Continue home medications * Trend BP * adjust therapy as indicted (5) Urinary retention: Code(s): R33.9 - Retention of urine, unspecified Status: Acute Assessment and Plan: * Reports inability to get a stream going * She also stated that she is voiding then having to go back to the bathroom in 20 minutes * Unreliable bladder scan * Urinary catheter installed for better I&O to ensure that she is not retaining * Will start flomax as well Time Spent With Patient Time with patient: Greater than 35 minutes Subjective Date/time seen: 05/06/22 1100 Interval history: 05/06/22 1100 patient was lying in bed today. Patient stated that she is having some pain in her left knee. otherwise she does not feel bad at all. Renal ultrasounds were completed today which did not show any hydronephrosis or obstruction at this time. However a renal ultrasound done last month did show mild hydronephrosis. nephrology has been consulted and awaiting recommendations. Patient denies any chest pain, shortness of breath, nausea, vomiting, diarrhea, constipation, weakness or fatigue patient is very concerned about her not being on a diet due to the NPO for the ultrasounds however diet was restarted. 05/05/22 1345 Patient stated that she was just tired today. She stated that she has been having issues urinating and stated that a lot of times she goes the bathroom she says the toilet for while and tries to go. She stated that sometimes she goes but then it stops and she tries to push on her bladder to get her to go more. She also stated that she isn't fully emptying that she was back to the bathroom 20 minutes after she gets done with the bathroom. She stated that she is unaware of how long this has been going on. She does not feel bad otherwise. She denies any chest pain, shortness of breath, nausea, vomiting, diarrhea, and constipation. She was really conc
[2022-05-06 11:36] LABS: Glucose Point of Care 163 mg/dl (65-105)
[2022-05-06 11:46] LABS: Add Urine Microscopic? YES; Appearance Urine Clear (Clear); Bilirubin Urine Negative (Negative); Blood Urine 1+ (Negative); Color Urine Yellow (Yellow); Glucose Urine UA Negative (Negative); Ketones Urine Negative (Negative); Leukocyte Esterase Ur 1+ LEU/UL (Negative); Nitrate Urine Negative (Negative); Protein Urine 1+ mg/dL (Negative); Specific Grav Ur 1.015 (1.001-1.035); Urobilinogen Urine 0.2 mg/dL (<2.0)
[2022-05-06 11:49] LABS: Bacteria Urine Trace /hpf; RBC Urine 21-50 /hpf (0-2); Squamous Epithelial Cell Urine Rare /hpf (Few); WBC Urine 21-30 /hpf
[2022-05-06] MEDS: INSULIN ASPART (*BKC) 100 UNITS/ML SUB-Q ×2 (13:26→16:49)
[2022-05-06 16:26] LABS: Glucose Point of Care 153 mg/dl (65-105)
[2022-05-06] MEDS: SIMETHICONE 80 MG TAB.CHEW PO (19:20)
[2022-05-06] MEDS: INSULIN GLARGINE (*BKC) 100 UNITS/ML 10 UNITS SUB-Q (21:10)
[2022-05-06 21:14] LABS: Glucose Point of Care 229 mg/dl (65-105)
[2022-05-07] VITALS (14 sets, daily range): BP systolic 104–124; BP diastolic 48–66; PULSE 62–76; RESP 17–20; TEMP 36.3–36.6; O2SAT 94–97
[2022-05-07] MEDS: HYDROcodone/acetaminophen (*CRX) 10-325 MG TABLET 1 TAB PO ×3 (00:35→21:03)
[2022-05-07] MEDS: ACETAMINOPHEN 325 MG TABLET 650 MG PO (03:36)
[2022-05-07 06:01] LABS: Basophils Percent Auto 0.4 % (0.2-1.2); Eosinophils Absolute Auto 0.3 K/mm3 (0-0.3); Eosinophils Percent Auto 4.8 % (0-4.4); Hematocrit 28.7 % (37.0-47.0); Hemoglobin 9.1 g/dL (12.0-15.0); Immature Granulocyte Absolute 0.02 K/mm3 (0.00-0.031); Immature Granulocyte Percent A 0.4 % (0-0.5); Lymphocytes Absolute Auto 1.07 K/mm3 (0.9-3.2); Lymphocytes Percent Auto 20.3 % (18.3-44.2); Mean Corpuscular HGB Conc 31.7 g/dl (32-36); Mean Corpuscular Hemoglobin 31.9 pg (26-34); Mean Corpuscular Volume 100.7 fl (80-100); Mean Platelet Volume 9.2 fl (7.4-10.4); Monocytes Absolute Auto 0.6 K/mm3 (0.1-0.6); Monocytes Percent Auto 11.2 % (2.6-8.5); Neutrophils Absolute Auto 3.3 K/mm3 (1.3-6.7); Neutrophils Percent Auto 62.9 % (45.5-73.1); Platelet Count Result 230 k/mm3 (150-375); Red Blood Count 2.85 M/mm3 (4.2-5.4); Red Cell Distribution Width 15.5 % (11.5-14.5); White Blood Count 5.3 K/mm3 (4.5-10.0)
[2022-05-07 06:16] LABS: Alanine Aminotransferase 11 U/L (6-35); Albumin Level 3.2 g/dL (3.5-5.1); Alkaline Phosphatase 63 U/L (38-126); Anion Gap 5 mmol/L (8-16); Aspartate Amino Transferase 19 U/L (14-36); Bilirubin,Total 0.3 mg/dL (0.2-1.3); Blood Urea Nitrogen 62 mg/dL (7-17); Calcium 8.2 mg/dL (8.4-10.2); Carbon Dioxide 29 mmol/L (22-30); Chloride 105 mmol/L (98-107); Estimated CRCL calculation 18 ml/min; Estimated Glomerular Filt Rate 14; Glucose 126 mg/dL (65-110); Magnesium 2.4 mg/dL (1.6-2.3); Potassium 4.7 mmol/L (3.4-5.0); Sodium 139 mmol/L (137-145)
[2022-05-07 07:25] LABS: Glucose Point of Care 141 mg/dl (65-105)
[2022-05-07] MEDS: glipiZIDE 5 MG TABLET 10 MG PO ×2 (07:58→17:30)
[2022-05-07] MEDS: AMIODARONE HCL 200 MG TABLET PO (07:58)
[2022-05-07] MEDS: APIXABAN 5 MG TABLET PO ×2 (08:01→21:03)
[2022-05-07] MEDS: DOCUSATE SODIUM 100 MG CAPSULE PO (08:02)
[2022-05-07] MEDS: carvediloL 12.5 MG TABLET PO ×2 (08:02→21:04)
[2022-05-07] MEDS: ATORVASTATIN 40 MG TABLET 80 MG PO (08:02)
[2022-05-07] MEDS: PANTOPRAZOLE 40 MG TABLET PO (08:03)
[2022-05-07] MEDS: GABAPENTIN 300 MG CAPSULE PO ×2 (08:03→17:23)
[2022-05-07] MEDS: TAMSULOSIN HCL 0.4 MG CAPSULE PO (08:03)
[2022-05-07] MEDS: FENOFIBRATE 160 MG TABLET PO (08:03)
[2022-05-07] MEDS: METOPROLOL SUCCINATE EXT REL 25 MG TABCR PO (08:03)
[2022-05-07] MEDS: EZETIMIBE 10 MG TABLET PO (08:03)
[2022-05-07] MEDS: diphenhydrAMINE HCl CAP 25 MG CAPSULE PO (08:05)
[2022-05-07] MEDS: INSULIN ASPART (*BKC) 100 UNITS/ML SUB-Q ×4 (08:06→17:22)
--- NOTE | 2022-05-07 09:30 | P.PNIM_ITS ---
Progress Note: A&P Assessment and Plan (1) Acute kidney injury superimposed on chronic kidney disease: Code(s): N17.9 - Acute kidney failure, unspecified; N18.9 - Chronic kidney disease, unspecified Status: Acute Assessment and Plan: * BUN and creatinine Increased today * baseline would be 1.9-2 * creatinine is 3.3 * consult Nephrology and appreciate further recommendations. * Trend intake and output closely. * Lasix has been stopped * could be secondary to progressive chronic kidney disease or obstruction * renal ultrasounds performed and showed no hydronephrosis * FEUrea indicates intrinsic renal disease with a score of 42.2% * daily weights. * renally adjust medications * avoid any nephrotoxic agents (2) Effusion of knee joint, left: Code(s): M25.462 - Effusion, left knee Status: Acute Assessment and Plan: * Patient reports pain in left knee * x-rays indicate a large joint effusion * orthopedics has been consulted * await further recommendations at this time. * Possibly could have the joint drained in IR * pain medication on board for pain * PT and OT (3) SUZANNE (obstructive sleep apnea): Code(s): G47.33 - Obstructive sleep apnea (adult) (pediatric) Status: Acute Assessment and Plan: * Will continue with home CPAP if this can be brought in if not we will provide a CPAP for the patient (4) Diabetes: Code(s): E11.9 - Type 2 diabetes mellitus without complications Status: Chronic Assessment and Plan: * Current glucose is 126 * Continue lantus, glipizide and januvia * ISS * Accu cheks achs * Trend glucose * Adjust therapy as indicated (5) Essential hypertension: Code(s): I10 - Essential (primary) hypertension Status: Chronic Assessment and Plan: * 124/66 currently * Continue home medications * Trend BP * adjust therapy as indicted (6) Urinary retention: Code(s): R33.9 - Retention of urine, unspecified Status: Acute Assessment and Plan: * Reports inability to get a stream going * She also stated that she is voiding then having to go back to the bathroom in 20 minutes * Unreliable bladder scan * Urinary catheter installed for better I&O to ensure that she is not retaining * Will start Flomax as well * Probably can do a voiding trial, with PRN bladder scans Time Spent With Patient Time with patient: Greater than 35 minutes Subjective Date/time seen: 05/07/22 09:30 Interval history: 05/07/22929 Patient stated that she has been having a lot of pain in her leg. She stated throughout the night she was having spasms underlying got very nauseous. She is also stating that she has been having burning and urgency issues with urination however she does have Hernandez catheter. UA from yesterday does appear like it might be infectious with leukocyte esterase and white blood cells present with trace bacteria. Will start her on IV Levaquin since she is having symptoms. She is very concerned about going back to her living situation due the fact that she has to be able to walk. X-ray of the knee did show a large joint effusion. Orthopedics has been consulted at this time for further management. She also claims she was little nauseous however she denies any chest pain, shortness of breath, vomiting, diarrhea or constipation. She is in there eating breakfast and doing well with that as well.
--- NOTE | 2022-05-07 09:30 | PM.IMPN ---
Progress Note: A&P Assessment and Plan (1) Acute kidney injury superimposed on chronic kidney disease: Code(s): N17.9 - Acute kidney failure, unspecified; N18.9 - Chronic kidney disease, unspecified Status: Acute Assessment and Plan: BUN and creatinine Increased today baseline would be 1.9-2 creatinine is 3.3 consult Nephrology and appreciate further recommendations. Trend intake and output closely. Lasix has been stopped could be secondary to progressive chronic kidney disease or obstruction renal ultrasounds performed and showed no hydronephrosis FEUrea indicates intrinsic renal disease with a score of 42.2% daily weights. renally adjust medications avoid any nephrotoxic agents (2) Effusion of knee joint, left: Code(s): M25.462 - Effusion, left knee Status: Acute Assessment and Plan: Patient reports pain in left knee x-rays indicate a large joint effusion orthopedics has been consulted await further recommendations at this time. Possibly could have the joint drained in IR pain medication on board for pain PT and OT (3) SUZANNE (obstructive sleep apnea): Code(s): G47.33 - Obstructive sleep apnea (adult) (pediatric) Status: Acute Assessment and Plan: Will continue with home CPAP if this can be brought in if not we will provide a CPAP for the patient (4) Diabetes: Code(s): E11.9 - Type 2 diabetes mellitus without complications Status: Chronic Assessment and Plan: Current glucose is 126 Continue lantus, glipizide and januvia ISS Accu cheks achs Trend glucose Adjust therapy as indicated (5) Essential hypertension: Code(s): I10 - Essential (primary) hypertension Status: Chronic Assessment and Plan: 124/66 currently Continue home medications Trend BP adjust therapy as indicted (6) Urinary retention: Code(s): R33.9 - Retention of urine, unspecified Status: Acute Assessment and Plan: Reports inability to get a stream going She also stated that she is voiding then having to go back to the bathroom in 20 minutes Unreliable bladder scan Urinary catheter installed for better I&O to ensure that she is not retaining Will start Flomax as well Probably can do a voiding trial, with PRN bladder scans Time Spent With Patient Time with patient: Greater than 35 minutes Subjective Date/time seen: 05/07/22 09:30 Interval history: 05/07/22929 Patient stated that she has been having a lot of pain in her leg. She stated throughout the night she was having spasms underlying got very nauseous. She is also stating that she has been having burning and urgency issues with urination however she does have Hernandez catheter. UA from yesterday does appear like it might be infectious with leukocyte esterase and white blood cells present with trace bacteria. Will start her on IV Levaquin since she is having symptoms. She is very concerned about going back to her living situation due the fact that she has to be able to walk. X-ray of the knee did show a large joint effusion. Orthopedics has been consulted at this time for further management. She also claims she was little nauseous however she denies any chest pain, shortness of breath, vomiting, diarrhea or constipation. She is in there eating breakfast and doing well with that as well. 05/06/22 patient was lying in bed today. Patient stated that she is having some pain in her left knee. otherwise she does not feel bad at all. Renal ultrasounds were completed today which did not show any hydronephrosis or obstruction at this time. However a renal ultrasound done last month did show mild hydronephrosis. nephrology has been consulted and awaiting recommendations. Patient denies any chest pain, shortness of breath, nausea, vomiting, diarrhea, constipation, weakness or fatigue
[2022-05-07 11:25] LABS: Glucose Point of Care 257 mg/dl (65-105)
--- NOTE | 2022-05-07 12:58 | PM.CNNEP ---
Assessment and Plan Assessment and plan (1) LIV (acute kidney injury): Code(s): N17.9 - Acute kidney failure, unspecified Status: Acute Assessment and Plan: etiology not entirely clear possible relative hypotension(?) admission systolic BP running 140 - 150s systolic by 05/06/22 (late in the day), running 105 - 110 systolic HOWEVER, this does not explain her admission creatinine of 2.9mg/dl renal ultrasound c/w CKD; no acute findings urine electrolytes are not prerenal attempt to optimize hemodynamics as tolerated follow repeat labs and UOP (2) Chronic kidney disease, stage IV (severe): Code(s): N18.4 - Chronic kidney disease, stage 4 (severe) Status: Acute Assessment and Plan: baseline creatinine had been running 1.4 - 1.8mg/dl since 2017 has since risen to 1.9 - 2.1mg/dl since early 2021 due to HTN, DM, vascular disease, and age-related change based on outpatient evaluation (3) Essential hypertension: Code(s): I10 - Essential (primary) hypertension Status: Chronic Assessment and Plan: as noted, running a bit softer than baseline unclear why on both metoprolol and carvedilol -- will d/c metoprolol holding ARB/losartan did initiation of flomax cause drop in BP(?) follow trend of hemodynamics (4) SUZANNE (obstructive sleep apnea): Code(s): G47.33 - Obstructive sleep apnea (adult) (pediatric) Status: Acute Assessment and Plan: continue use of CPAP (5) Diabetes: Code(s): E11.9 - Type 2 diabetes mellitus without complications Status: Chronic Assessment and Plan: follow accuchecks glycemic control Will continue to follow. History of Present Illness Reason for Consult Consult date: 05/07/22 Reason for consult: acute renal failure (on chronic kidney disease) Chief Complaint Chief complaint: RENAL FAILURE History of Present Illness Narrative: The patient is a 76-year-old female with a past medical history as outlined below who presented to [facility] Emergency room at the behest of her primary care physician for further evaluation of abnormal labs. She saw her primary care physician for routine follow-up of her chronic medical issues and problems and outpatient labs were done at that time. on that office visit, she reported to her PCP increasingly lower extremity edema as well as edema in her abdominal area. Because of this complaint, outpatient labs were done which apparently demonstrated an acute decline in her baseline kidney function which subsequently led to her presentation to the emergency room for further evaluation. Workup and evaluation emergency room demonstrated the patient to be hemodynamically stable and repeat labs done did demonstrate acute/significant decline in his baseline kidney function in concern to previous testing. On further questioning, she denies any chest pain, lightheadedness, dizziness, palpitations, or syncope. She did mention some mild shortness of breath and that her abdomen felt quite swollen to her as well. She also reported a an apparent 20 lb weight gain in the last 7 months as well and. She reports compliance with her medications including diuretic therapy. Given her constellation of symptoms as well as her laboratory abnormalities as mentioned, she was admitted to the hospital for further evaluation and therapy. Since her admission, her renal function has not really improved and is actually somewhat worsened since her hospitalization began. As mentioned, her creatinine on admission was 2.9 mg/dL and has risen up to 3.4 mg/dL by labs done this morning. No other critical electrolyte abnormalities have been noted on her testing to date. Renal consultation was requested due to her acute kidney injury on top of her baseline kidney disease. The patient normally follows with Dr. Jayy Carrillo for management of her chronic kidney disease however she has not seen hi
--- NOTE | 2022-05-07 14:46 | PCOTNOTE ---
Patient not seen for OT this date. Will continue per plan of care.
[2022-05-07 16:33] LABS: Glucose Point of Care 115 mg/dl (65-105)
--- NOTE | 2022-05-07 20:54 | PCRCNOTE ---
patient continues to refuse mdi
[2022-05-07] MEDS: INSULIN GLARGINE (*BKC) 100 UNITS/ML 10 UNITS SUB-Q (21:04)
[2022-05-07 23:03] LABS: Glucose Point of Care 261 mg/dl (65-105)
[2022-05-08] VITALS (15 sets, daily range): BP systolic 97–149; BP diastolic 45–60; PULSE 66–79; RESP 16–20; TEMP 36.6–37.2; O2SAT 95–97
[2022-05-08] MEDS: HYDROcodone/acetaminophen (*CRX) 10-325 MG TABLET 1 TAB PO ×2 (06:30→18:42)
[2022-05-08 07:54] LABS: Glucose Point of Care 132 mg/dl (65-105)
[2022-05-08] MEDS: INSULIN ASPART (*BKC) 100 UNITS/ML SUB-Q ×4 (08:13→17:26)
[2022-05-08] MEDS: glipiZIDE 5 MG TABLET 10 MG PO ×2 (08:19→17:26)
[2022-05-08] MEDS: AMIODARONE HCL 200 MG TABLET PO (08:20)
[2022-05-08] MEDS: METOPROLOL SUCCINATE EXT REL 25 MG TABCR PO (08:22)
[2022-05-08] MEDS: EZETIMIBE 10 MG TABLET PO (08:22)
[2022-05-08] MEDS: DOCUSATE SODIUM 100 MG CAPSULE PO (08:22)
[2022-05-08] MEDS: carvediloL 12.5 MG TABLET PO ×2 (08:23→19:37)
[2022-05-08] MEDS: APIXABAN 5 MG TABLET PO (08:23)
[2022-05-08] MEDS: PANTOPRAZOLE 40 MG TABLET PO (08:23)
[2022-05-08] MEDS: FENOFIBRATE 160 MG TABLET PO (08:23)
[2022-05-08] MEDS: ATORVASTATIN 40 MG TABLET 80 MG PO (08:23)
[2022-05-08] MEDS: TAMSULOSIN HCL 0.4 MG CAPSULE PO (08:24)
[2022-05-08] MEDS: GABAPENTIN 300 MG CAPSULE PO ×2 (08:24→16:40)
[2022-05-08] MEDS: diphenhydrAMINE HCl CAP 25 MG CAPSULE PO (08:24)
[2022-05-08 08:34] LABS: Albumin Level 3.3 g/dL (3.5-5.1); Anion Gap 6 mmol/L (8-16); Blood Urea Nitrogen 66 mg/dL (7-17); Calcium 8.2 mg/dL (8.4-10.2); Carbon Dioxide 26 mmol/L (22-30); Chloride 105 mmol/L (98-107); Estimated CRCL calculation 17 ml/min; Estimated Glomerular Filt Rate 13; Glucose 128 mg/dL (65-110); Potassium 4.9 mmol/L (3.4-5.0); Sodium 137 mmol/L (137-145)
[2022-05-08 09:56] LABS: Basophils Percent Auto 0.5 % (0.2-1.2); Eosinophils Absolute Auto 0.3 K/mm3 (0-0.3); Eosinophils Percent Auto 4.2 % (0-4.4); Hematocrit 29.4 % (37.0-47.0); Hemoglobin 9.2 g/dL (12.0-15.0); Immature Granulocyte Absolute 0.01 K/mm3 (0.00-0.031); Immature Granulocyte Percent A 0.2 % (0-0.5); Lymphocytes Absolute Auto 1.06 K/mm3 (0.9-3.2); Mean Corpuscular HGB Conc 31.3 g/dl (32-36); Mean Corpuscular Hemoglobin 31.9 pg (26-34); Mean Corpuscular Volume 102.1 fl (80-100); Mean Platelet Volume 9.8 fl (7.4-10.4); Monocytes Absolute Auto 0.6 K/mm3 (0.1-0.6); Monocytes Percent Auto 10.2 % (2.6-8.5); Neutrophils Absolute Auto 4.3 K/mm3 (1.3-6.7); Neutrophils Percent Auto 67.9 % (45.5-73.1); Platelet Count Result 256 k/mm3 (150-375); Red Blood Count 2.88 M/mm3 (4.2-5.4); Red Cell Distribution Width 15.6 % (11.5-14.5); White Blood Count 6.3 K/mm3 (4.5-10.0)
[2022-05-08 10:06] LABS: Alanine Aminotransferase 11 U/L (6-35); Albumin Level 3.3 g/dL (3.5-5.1); Alkaline Phosphatase 66 U/L (38-126); Aspartate Amino Transferase 17 U/L (14-36); Bilirubin,Total 0.3 mg/dL (0.2-1.3)
[2022-05-08 10:53] LABS: Uric Acid 10.6 mg/dL (2.5-7.5)
[2022-05-08 11:02] LABS: INR 1.8; Partial Thromboplastin Time 51.4 SECONDS (22.3-36.8); Prothrombin Time 20.6 Seconds (11.1-14.7)
[2022-05-08 11:12] LABS: Erythrocyte Sedimentation Rate 139 mm/hr (0-20)
[2022-05-08 11:27] LABS: CRP 1.3 mg/dL (<1.0)
[2022-05-08 11:54] LABS: Glucose Point of Care 235 mg/dl (65-105)
--- NOTE | 2022-05-08 12:00 | PM.PNNEP ---
Progress Note: A&P Assessment and Plan (1) LIV (acute kidney injury): Code(s): N17.9 - Acute kidney failure, unspecified Status: Acute Assessment and Plan: etiology not entirely clear possible relative hypotension(?) admission systolic BP running 140 - 150s systolic by 05/06/22 (late in the day), running 105 - 110 systolic HOWEVER, this does not explain her admission creatinine of 2.9mg/dl renal ultrasound c/w CKD; no acute findings urine electrolytes are not prerenal attempt to optimize hemodynamics as tolerated follow repeat labs and UOP (2) Chronic kidney disease, stage IV (severe): Code(s): N18.4 - Chronic kidney disease, stage 4 (severe) Status: Acute Assessment and Plan: baseline creatinine had been running 1.4 - 1.8mg/dl since 2017 has since risen to 1.9 - 2.1mg/dl since early 2021 due to HTN, DM, vascular disease, and age-related change based on outpatient evaluation (3) Essential hypertension: Code(s): I10 - Essential (primary) hypertension Status: Chronic Assessment and Plan: as noted, running a bit softer than baseline unclear why on both metoprolol and carvedilol -- will d/c metoprolol holding ARB/losartan did initiation of flomax cause drop in BP(?) follow trend of hemodynamics (4) SUZANNE (obstructive sleep apnea): Code(s): G47.33 - Obstructive sleep apnea (adult) (pediatric) Status: Acute Assessment and Plan: continue use of CPAP (5) Diabetes: Code(s): E11.9 - Type 2 diabetes mellitus without complications Status: Chronic Assessment and Plan: follow accuchecks glycemic control Will continue to follow. Subjective Date/time seen: 05/08/22 12:00 No apparent distress noted at the time of my visit; confused/concerned of why her kidney function has deteriorated; otherwise, no issues/events overnight or earlier this AM; feels reasonable well. Exam Narrative: General: WD/WN female in NAD Heart: normal S1 and S2; no rub Lungs: clear to auscultation Abdomen: soft, nontender, nondistended, positive bowel sounds Extremities: no cyanosis or clubbing; 2 - 3+ edema Skin: warm and dry Objective Data Vital Signs Vital Signs: Vital Signs Temp Pulse Resp BP Pulse Ox O2 Del Method 05/08/22 12:00 69 05/08/22 08:00 76 05/08/22 08:20 97 Room Air 05/08/22 08:23 75 05/08/22 08:22 75 05/08/22 08:20 75 05/08/22 05:40 37.2 C 66 20 105/52 L 95 05/08/22 04:00 67 05/08/22 00:00 69 05/07/22 20:00 76 05/08/22 04:29 96 Room Air 05/07/22 20:53 94 Room Air 05/07/22 21:49 36.6 C 72 20 110/48 L 96 05/07/22 21:04 74 05/07/22 16:00 62 Intake/Output Intake/Output: Intake & Output 05/05/22 05/06/22 05/07/22 05/08/22 23:59 23:59 23:59 23:59 Intake Total 1410 1270 1122 1320 Output Total 650 1275 1100 425 Balance 760 -5 22 895 Meds/Results Medications: Active Medications Generic Name Dose Route Start Last Admin Trade Name Freq PRN Reason Stop Dose Admin Acetaminophen 650 mg 05/04/22 22:43 05/07/22 03:36 Acetaminophen 325 Mg Tablet PO 650 mg Q4H PRN Administration Mild Pain (1-3) Or Fever Hydrocodone Bitart/Acetaminophen 1 tab 05/04/22 22:43 05/08/22 06:30 Hydrocodone/Acetaminophen (*Crx) 10-325 Mg Tablet PO 1 tab Q8H PRN Administration Pain Rated 4-6 Albuterol 2.5 mg 05/04/22 22:43 Albuterol Sulfate Neb 2.5 Mg/3 Ml Inh INHALATION Q6HRT PRN shortness of breath or wheezing Albuterol 1 puff 05/04/22 22:43 Albuterol Sulfate (*Sp) Aerosol 1 Puff INHALATION Q6H PRN Shortness Of Breath Amiodarone HCl 200 mg 05/05/22 08:00 05/08/22 08:20 Amiodarone Hcl 200 Mg Tablet PO 200 mg DAILY@0800 CODY Administration Apixaban 5 mg 05/05/22 09:00 05/08/22 08:23 Apixaban 5 Mg Tablet PO 5 mg Q12HR
--- NOTE | 2022-05-08 12:00 | P.PNNP_ITS ---
Progress Note: A&P Assessment and Plan (1) LIV (acute kidney injury): Code(s): N17.9 - Acute kidney failure, unspecified Status: Acute Assessment and Plan: * etiology not entirely clear * possible relative hypotension(?) * admission systolic BP running 140 - 150s systolic * by 05/06/22 (late in the day), running 105 - 110 systolic * HOWEVER, this does not explain her admission creatinine of 2.9mg/dl * renal ultrasound c/w CKD; no acute findings * urine electrolytes are not prerenal * attempt to optimize hemodynamics as tolerated * follow repeat labs and UOP (2) Chronic kidney disease, stage IV (severe): Code(s): N18.4 - Chronic kidney disease, stage 4 (severe) Status: Acute Assessment and Plan: * baseline creatinine had been running 1.4 - 1.8mg/dl since 2017 * has since risen to 1.9 - 2.1mg/dl since early 2021 * due to HTN, DM, vascular disease, and age-related change based on outpatient evaluation (3) Essential hypertension: Code(s): I10 - Essential (primary) hypertension Status: Chronic Assessment and Plan: * as noted, running a bit softer than baseline * unclear why on both metoprolol and carvedilol -- will d/c metoprolol * holding ARB/losartan * did initiation of flomax cause drop in BP(?) * follow trend of hemodynamics (4) SUZANNE (obstructive sleep apnea): Code(s): G47.33 - Obstructive sleep apnea (adult) (pediatric) Status: Acute Assessment and Plan: * continue use of CPAP (5) Diabetes: Code(s): E11.9 - Type 2 diabetes mellitus without complications Status: Chronic Assessment and Plan: * follow accuchecks * glycemic control Will continue to follow. Subjective Date/time seen: 05/08/22 12:00 No apparent distress noted at the time of my visit; confused/concerned of why her kidney function has deteriorated; otherwise, no issues/events overnight or earlier this AM; feels reasonable well. Exam Narrative: General: WD/WN female in NAD Heart: normal S1 and S2; no rub Lungs: clear to auscultation Abdomen: soft, nontender, nondistended, positive bowel sounds Extremities: no cyanosis or clubbing; 2 - 3+ edema Skin: warm and dry Objective Data Vital Signs Vital Signs: Vital Signs Temp Pulse Resp BP Pulse Ox O2 Del Method 05/08/22 12:00 69 05/08/22 08:00 76 05/08/22 08:20 97 Room Air 05/08/22 08:23 75 05/08/22 08:22 75 05/08/22 08:20 75 05/08/22 05:40 37.2 C 66 20 105/52 L 95 05/08/22 04:00 67 05/08/22 00:00 69 05/07/22 20:00 76 05/08/22 04:29 96 Room Air 05/07/22 20:53 94 Room Air 05/07/22 21:49 36.6 C 72 20 110/48 L 96 05/07/22 21:04 74 05/07/22 16:00 62 Intake/Output Intake/Output: Intake & Output 05/05/22 05/06/22 05/07/22 05/08/22 23:59 23:59 23:59 23:59 Intake Total 1410 1270 1122 1320 Output Total 650 1275 1100 425 Balance 760 -5 22 895 Meds/Results Medications: Active Medications Generic Name Dose Route S
--- NOTE | 2022-05-08 13:00 | PM.IMPN ---
Progress Note: A&P Assessment and Plan (1) Acute kidney injury superimposed on chronic kidney disease: Code(s): N17.9 - Acute kidney failure, unspecified; N18.9 - Chronic kidney disease, unspecified Status: Acute Assessment and Plan: BUN and creatinine Increased today baseline would be 1.9-2 creatinine is 3.4 consult Nephrology and appreciate further recommendations. Trend intake and output closely. Lasix has been stopped could be secondary to progressive chronic kidney disease or obstruction renal ultrasounds performed and showed no hydronephrosis FEUrea indicates intrinsic renal disease with a score of 42.2% daily weights. renally adjust medications avoid any nephrotoxic agents (2) Gout flare: Code(s): M10.9 - Gout, unspecified Status: Acute Assessment and Plan: Uric acid is 10.6 Started in left knee Now in the right toe Allopurinol started Solumedrol initiated for better control Joint aspiration ordered and pending (3) Effusion of knee joint, left: Code(s): M25.462 - Effusion, left knee Status: Acute Assessment and Plan: Patient reports pain in left knee x-rays indicate a large joint effusion orthopedics has been consulted thank you for your help await further recommendations at this time. Joint drainage ordered with diagnostic testing pain medication on board for pain PT and OT Eliquis on hold for preparation of joint aspiration (4) SUZANNE (obstructive sleep apnea): Code(s): G47.33 - Obstructive sleep apnea (adult) (pediatric) Status: Acute Assessment and Plan: Will continue with home CPAP if this can be brought in if not we will provide a CPAP for the patient (5) Diabetes: Code(s): E11.9 - Type 2 diabetes mellitus without complications Status: Chronic Assessment and Plan: Current glucose is 128 Continue lantus, glipizide and januvia ISS Accu cheks achs Trend glucose Adjust therapy as indicated (6) Essential hypertension: Code(s): I10 - Essential (primary) hypertension Status: Chronic Assessment and Plan: currently Continue home medications Trend BP adjust therapy as indicted (7) Urinary retention: Code(s): R33.9 - Retention of urine, unspecified Status: Acute Assessment and Plan: Reports inability to get a stream going She also stated that she is voiding then having to go back to the bathroom in 20 minutes Unreliable bladder scan urinary catheter removed and voiding trial successful Will start Flomax as well Probably can do a voiding trial, with PRN bladder scans Time Spent With Patient Time with patient: Greater than 35 minutes Subjective Date/time seen: 05/08/22 1300 Interval history: 05/08/22 1300 Patient stated that she she is having a lot of pain issues especially in her knee and in her right big toe. Uric acid was 10.6 looks like it could probably be a gout flare up. She denies any chest pain, shortness of breath, nausea, vomiting, diarrhea, constipation, weakness or fatigue she also stated that she is urinating okay. 05/07/22 0930 Patient stated that she has been having a lot of pain in her leg.? She stated throughout the night she was having spasms underlying got very nauseous.? She is also stating that she has been having burning and urgency issues with urination however she does have Hernandez catheter.? UA from yesterday does appear? like it might be infectious with leukocyte esterase and white blood cells present with trace bacteria.? Will start her on IV? Levaquin since she is having symptoms.? She is very concerned about going back to her living situation due the fact that she has to be able to walk.? X-ray of the knee did show a large joint effusion.? Orthopedics has been consulted at this time for further management.
--- NOTE | 2022-05-08 13:00 | P.PNIM_ITS ---
Progress Note: A&P Assessment and Plan (1) Acute kidney injury superimposed on chronic kidney disease: Code(s): N17.9 - Acute kidney failure, unspecified; N18.9 - Chronic kidney disease, unspecified Status: Acute Assessment and Plan: * BUN and creatinine Increased today * baseline would be 1.9-2 * creatinine is 3.4 * consult Nephrology and appreciate further recommendations. * Trend intake and output closely. * Lasix has been stopped * could be secondary to progressive chronic kidney disease or obstruction * renal ultrasounds performed and showed no hydronephrosis * FEUrea indicates intrinsic renal disease with a score of 42.2% * daily weights. * renally adjust medications * avoid any nephrotoxic agents (2) Gout flare: Code(s): M10.9 - Gout, unspecified Status: Acute Assessment and Plan: * Uric acid is 10.6 * Started in left knee * Now in the right toe * Allopurinol started * Solumedrol initiated for better control * Joint aspiration ordered and pending (3) Effusion of knee joint, left: Code(s): M25.462 - Effusion, left knee Status: Acute Assessment and Plan: * Patient reports pain in left knee * x-rays indicate a large joint effusion * orthopedics has been consulted thank you for your help * await further recommendations at this time. * Joint drainage ordered with diagnostic testing * pain medication on board for pain * PT and OT * Eliquis on hold for preparation of joint aspiration (4) SUZANNE (obstructive sleep apnea): Code(s): G47.33 - Obstructive sleep apnea (adult) (pediatric) Status: Acute Assessment and Plan: * Will continue with home CPAP if this can be brought in if not we will provide a CPAP for the patient (5) Diabetes: Code(s): E11.9 - Type 2 diabetes mellitus without complications Status: Chronic Assessment and Plan: * Current glucose is 128 * Continue lantus, glipizide and januvia * ISS * Accu cheks achs * Trend glucose * Adjust therapy as indicated (6) Essential hypertension: Code(s): I10 - Essential (primary) hypertension Status: Chronic Assessment and Plan: * 97/45 currently * Continue home medications * Trend BP * adjust therapy as indicted (7) Urinary retention: Code(s): R33.9 - Retention of urine, unspecified Status: Acute Assessment and Plan: * Reports inability to get a stream going * She also stated that she is voiding then having to go back to the bathroom in 20 minutes * Unreliable bladder scan * urinary catheter removed and voiding trial successful * Will start Flomax as well * Probably can do a voiding trial, with PRN bladder scans Time Spent With Patient Time with patient: Greater than 35 minutes Subjective Date/time seen: 05/08/22 1300 Interval history: 05/08/22 1300 Patient stated that she she is having a lot of pain issues especially in her knee and in her right big toe. Uric acid was 10.6 looks like it could probably be a gout flare up. She denies any chest pain, shortness of breath, nausea, vomiting, diarrhea, constipation, weakness or fatigue she also stated that she is urinating okay. 05/07/22 0930 Patient stated that she has been having a lot of pain in her leg.? She stated throughout the night she was havi
[2022-05-08] MEDS: methylPREDNISolone SOD SUCC 40 MG VIAL 20 MG IV PUSH (16:40)
[2022-05-08] MEDS: allopurinoL 100 MG TABLET PO (16:40)
[2022-05-08 16:51] LABS: Glucose Point of Care 124 mg/dl (65-105)
--- NOTE | 2022-05-08 18:49 | PM.CNOR ---
Assessment and Plan Assessment and plan (1) Knee effusion, left: Code(s): M25.462 - Effusion, left knee Status: Acute Assessment and Plan: patient is a 76-year-old female I was asked to see for evaluation of her left knee effusion. She came to the hospital yesterday admitted from the doctor's office when she was noted to be in acute renal failure. Her creatinine on the was 2.8 and it has creeped up gradually. It was 3.4 today 3.2 yesterday. Creatinine clearance is 17 mL/min. She reports that for perhaps a couple of days she has not been able to put all of her weight on the left leg. Feels like it will not hold her because of pain in the left knee. She has a history she states of having [id number] arthritis in the knee. She had x-rays of the knee and I have access to the radiologist report the of the EMR that says moderate tricompartmental arthritis with spurs and a large effusion. However when I tried to look at the images I cannot as it says I am entering an unsafe area and the on-call computer graphics illustrator advised me that they have not been able to fix this problem and that is widespread currently. She had a very elevated uric acid of 10.6 and it was suspected that this might be an acute flare of gout. Supporting this believe is the fact that she has associated right foot 1st MTP joint pain was severe and she could barely walk on her right foot because of it. That has improved and is not tender right now. She was given high-dose methylprednisolone 20 mg b.i.d. on the presumption that her left knee and right 1st MTP joint symptoms may be due to gout. Patient has no known history of gout in the past so this would be her 1st episode if her symptoms are due to an attack of gout. Her Eliquis was held pending possible aspiration and treatments. She has not had any fevers or chills and she denies any recent infection problems and she denies any trauma or falls. The pain in her knee came on spontaneously. Her sedimentation rate was very elevated at 139 which is nonspecific in the setting of renal failure. Her C-reactive protein was minimally elevated at 1.3 normal being less than 1. this argues against a septic arthritis but does not rule it out. Typically a septic arthritis will have a C-reactive protein 10 times normal or more. Patient's white count is normal. Uric acid is 10.6. On examination today she is a very pleasant female in no acute distress. She has morbid obesity. Her BMI is 41.6 and this is weight is abdominal truncal. Her legs are extremely thin. Daniel tells me that she had a stroke in February of 2021 but she does not feel it affected her left side but it did affect her speech and she has a little bit of difficulty remembering specifics of the time of onset of her symptoms. She complains that she can not bend her knee very far. Today she had range of motion from 5-90 degrees. Both her legs are warm to the touch. I could not feel any pulses in the left foot she denied light touch testing numbness. The temperature of her left knee was the same as the right knee but she had moderately severe parapatellar tenderness to palpation. Rotation of her hip caused minimal discomfort in the knee. She denies any hip pain. She was able do a straight leg raise racing her heel about a foot off the bed against the weight of gravity and she tolerated this well. Impression: Patient has known history of osteoarthritis in left knee and has a large effusion left knee at this time. Symptoms in her left knee have coincided with exacerbation of her renal failure. I have recommended aspirating the fluid to diagnosis possible inflammatory arthritis and evaluate for possible infection. Radiology was not able to do this this morning and said they would not have a radiologist that could aspirate the knee until Tuesday. I recommended proceeding with aspiration at the bedside. I have discussed the procedure with her. She is very fearful i
[2022-05-08] MEDS: INSULIN GLARGINE (*BKC) 100 UNITS/ML 10 UNITS SUB-Q (19:39)
[2022-05-08 19:41] LABS: Source Synovial Fluid Synovial fluid
[2022-05-08 19:43] LABS: Appearance Synovial Fluid Clear (Clear); Color Synovial Fluid Yellow (Colorless); Neutrophils Synovial Fluid 68 % (0-25); Nucleated Cell Synovial Fluid 1624 /uL (0-200); RBC Synovial Fluid 70 /uL (0-0)
[2022-05-08 19:44] LABS: Lymphocytes Synovial Fluid 2 %; Macrophages Synovial Fluid 7 %; Monocytes Synovial Fluid 23 %
[2022-05-08 20:43] LABS: Crystals Synovial Fluid None Seen (None Seen)
[2022-05-08 21:22] LABS: Glucose Point of Care 209 mg/dl (65-105)
[2022-05-09] VITALS (11 sets, daily range): BP systolic 116–159; BP diastolic 58–69; PULSE 71–90; RESP 16–20; TEMP 36.2–37; O2SAT 95–97
[2022-05-09 07:52] LABS: Glucose Point of Care 200 mg/dl (65-105)
[2022-05-09] MEDS: methylPREDNISolone SOD SUCC 40 MG VIAL 20 MG IV PUSH ×2 (08:10→16:53)
[2022-05-09] MEDS: TAMSULOSIN HCL 0.4 MG CAPSULE PO (08:11)
[2022-05-09] MEDS: FENOFIBRATE 160 MG TABLET PO (08:11)
[2022-05-09] MEDS: AMIODARONE HCL 200 MG TABLET PO (08:11)
[2022-05-09] MEDS: carvediloL 12.5 MG TABLET PO ×2 (08:11→20:58)
[2022-05-09] MEDS: EZETIMIBE 10 MG TABLET PO (08:11)
[2022-05-09] MEDS: allopurinoL 100 MG TABLET PO (08:12)
[2022-05-09] MEDS: ATORVASTATIN 40 MG TABLET 80 MG PO (08:12)
[2022-05-09] MEDS: PANTOPRAZOLE 40 MG TABLET PO (08:12)
[2022-05-09] MEDS: HYDROcodone/acetaminophen (*CRX) 10-325 MG TABLET 1 TAB PO ×2 (08:12→18:31)
[2022-05-09] MEDS: glipiZIDE 5 MG TABLET 10 MG PO ×2 (08:12→16:53)
[2022-05-09] MEDS: GABAPENTIN 300 MG CAPSULE PO ×2 (08:12→16:53)
[2022-05-09] MEDS: DOCUSATE SODIUM 100 MG CAPSULE PO (08:12)
[2022-05-09] MEDS: diphenhydrAMINE HCl CAP 25 MG CAPSULE PO (08:12)
[2022-05-09] MEDS: INSULIN ASPART (*BKC) 100 UNITS/ML SUB-Q ×5 (08:13→16:53)
[2022-05-09 08:37] LABS: Albumin Level 3.5 g/dL (3.5-5.1); Anion Gap 9 mmol/L (8-16); Blood Urea Nitrogen 65 mg/dL (7-17); Calcium 8.7 mg/dL (8.4-10.2); Carbon Dioxide 26 mmol/L (22-30); Chloride 103 mmol/L (98-107); Estimated CRCL calculation 18 ml/min; Estimated Glomerular Filt Rate 14; Glucose 233 mg/dL (65-110); Phosphorus 5.1 mg/dL (2.5-4.5); Potassium 4.9 mmol/L (3.4-5.0); Sodium 138 mmol/L (137-145)
--- NOTE | 2022-05-09 10:00 | P.PNIM_ITS ---
Progress Note: A&P Assessment and Plan (1) Acute kidney injury superimposed on chronic kidney disease: Code(s): N17.9 - Acute kidney failure, unspecified; N18.9 - Chronic kidney disease, unspecified Status: Acute Assessment and Plan: * BUN and creatinine Increased today * baseline would be 1.9-2 * creatinine is 3.20 today * consult Nephrology and appreciate further recommendations. * Trend intake and output closely. * Lasix has been stopped * could be secondary to progressive chronic kidney disease or obstruction * renal ultrasounds performed and showed no hydronephrosis * FEUrea indicates intrinsic renal disease with a score of 42.2% * daily weights. * renally adjust medications * avoid any nephrotoxic agents (2) Gout flare: Code(s): M10.9 - Gout, unspecified Status: Acute Assessment and Plan: * Uric acid is 10.6, could be from renal insufficiency * Started in left knee * Now in the right toe * Allopurinol started, however, renal function is not good enough to continue * Defer to nephrology for a better treatment recommendation * Solumedrol initiated for better control, titrate * Joint aspiration did not show any crystals (3) Effusion of knee joint, left: Code(s): M25.462 - Effusion, left knee Status: Acute Assessment and Plan: * Patient reports pain in left knee * x-rays indicate a large joint effusion * Repeat xray 05/09/22 shows OA of the patellofemoral joint * orthopedics has been consulted thank you for your help * Aspiration of clear fluid, RBC 70, Nuc cells 1624, Neutrophils 68, no crystals * Await culture * pain medication on board for pain * PT and OT * Eliquis on hold for preparation of joint aspiration (4) SUZANNE (obstructive sleep apnea): Code(s): G47.33 - Obstructive sleep apnea (adult) (pediatric) Status: Acute Assessment and Plan: * Will continue with home CPAP if this can be brought in if not we will provide a CPAP for the patient (5) Diabetes: Code(s): E11.9 - Type 2 diabetes mellitus without complications Status: Chronic Assessment and Plan: * Current glucose is 233 * Continue lantus, glipizide and januvia * ISS * Accu cheks achs * Trend glucose * Adjust therapy as indicated (6) Essential hypertension: Code(s): I10 - Essential (primary) hypertension Status: Chronic Assessment and Plan: * 122/63 currently * Continue home medications * Trend BP * adjust therapy as indicted (7) Urinary retention: Code(s): R33.9 - Retention of urine, unspecified Status: Acute Assessment and Plan: * Resolved at this time * Reports inability to get a stream going * She also stated that she is voiding then having to go back to the bathroom in 20 minutes * Unreliable bladder scan * urinary catheter removed and voiding trial successful * Will start Flomax as well * Probably can do a voiding trial, with PRN bladder scans Time Spent With Patient Time with patient: Greater than 35 minutes Subjective Date/time seen: 05/09/22 1000 Interval history: 05/09/22999 she seems to be doing well today. Patient states that her pain is minimal. Unfortunately the allopurinol is contraindicated with her renal function. Steroids seem to be working she is more worried about her diet.
--- NOTE | 2022-05-09 10:00 | PM.IMPN ---
Progress Note: A&P Assessment and Plan (1) Acute kidney injury superimposed on chronic kidney disease: Code(s): N17.9 - Acute kidney failure, unspecified; N18.9 - Chronic kidney disease, unspecified Status: Acute Assessment and Plan: BUN and creatinine Increased today baseline would be 1.9-2 creatinine is 3.20 today consult Nephrology and appreciate further recommendations. Trend intake and output closely. Lasix has been stopped could be secondary to progressive chronic kidney disease or obstruction renal ultrasounds performed and showed no hydronephrosis FEUrea indicates intrinsic renal disease with a score of 42.2% daily weights. renally adjust medications avoid any nephrotoxic agents (2) Gout flare: Code(s): M10.9 - Gout, unspecified Status: Acute Assessment and Plan: Uric acid is 10.6, could be from renal insufficiency Started in left knee Now in the right toe Allopurinol started, however, renal function is not good enough to continue Defer to nephrology for a better treatment recommendation Solumedrol initiated for better control, titrate Joint aspiration did not show any crystals (3) Effusion of knee joint, left: Code(s): M25.462 - Effusion, left knee Status: Acute Assessment and Plan: Patient reports pain in left knee x-rays indicate a large joint effusion Repeat xray 05/09/22 shows OA of the patellofemoral joint orthopedics has been consulted thank you for your help Aspiration of clear fluid, RBC 70, Nuc cells 1624, Neutrophils 68, no crystals Await culture pain medication on board for pain PT and OT Eliquis on hold for preparation of joint aspiration (4) SUZANNE (obstructive sleep apnea): Code(s): G47.33 - Obstructive sleep apnea (adult) (pediatric) Status: Acute Assessment and Plan: Will continue with home CPAP if this can be brought in if not we will provide a CPAP for the patient (5) Diabetes: Code(s): E11.9 - Type 2 diabetes mellitus without complications Status: Chronic Assessment and Plan: Current glucose is 233 Continue lantus, glipizide and januvia ISS Accu cheks achs Trend glucose Adjust therapy as indicated (6) Essential hypertension: Code(s): I10 - Essential (primary) hypertension Status: Chronic Assessment and Plan: 122/63 currently Continue home medications Trend BP adjust therapy as indicted (7) Urinary retention: Code(s): R33.9 - Retention of urine, unspecified Status: Acute Assessment and Plan: Resolved at this time Reports inability to get a stream going She also stated that she is voiding then having to go back to the bathroom in 20 minutes Unreliable bladder scan urinary catheter removed and voiding trial successful Will start Flomax as well Probably can do a voiding trial, with PRN bladder scans Time Spent With Patient Time with patient: Greater than 35 minutes Subjective Date/time seen: 05/09/22 1000 Interval history: 05/09/22 1000 she seems to be doing well today. Patient states that her pain is minimal. Unfortunately the allopurinol is contraindicated with her renal function. Steroids seem to be working she is more worried about her diet. She denies any chest pain, shortness of breath, nausea, vomiting, diarrhea, constipation, weakness or fatigue she did state that she is able to stand on legs and she is able to pivot herself to the chair and bathroom. 05/08/22 1300 Patient stated that she she is having a lot of pain issues especially in her knee and in her right big toe. Uric acid was 10.6 looks like it could probably be a gout flare up. She denies any chest pain, shortness of breath, nausea, vomiting, diarrhea, constipation, weakness or fatigue she also stated that she is urinating okay. 05/07/22
[2022-05-09] MEDS: LIDOCAINE HCL 1% LOCAL INJ 20 ML VIAL 5 ML INFILTRATE (11:30)
[2022-05-09] MEDS: BETAMETHASONE SOD PHOS/ACETATE 30 MG/5 ML VIAL 12 MG IM (11:30)
[2022-05-09] MEDS: LIDOCAINE HCL 1% LOCAL INJ 10 ML VIAL 5 ML INFILTRATE (11:30)
--- NOTE | 2022-05-09 11:30 | PM.PNORT ---
Progress Note: A&P Assessment and Plan (1) Knee effusion, left: Code(s): M25.462 - Effusion, left knee Status: Acute (2) Gout flare: Code(s): M10.9 - Gout, unspecified Status: Acute Plan Patient reports she has a little bit less pain today and was able to walk to the bathroom with therapy. It is still painful and she has significant parapatellar tenderness still. There is a moderate effusion still. Cultures from the synovial fluid specimen that we aspirated from the left knee yesterday are still pending but the cell count with differential points against infection. There was a mild preponderance of neutrophils but only about 1200 white cells in the joint fluid. the fluid though would be considered A mildly inflammatory effusion. crystals were negative. This would not be consistent with bacterial septic arthritis. This may be consistent with a gout flare that is relatively mild at this time. Impression: Mildly inflammatory effusion left knee. A sunrise view obtained today demonstrates at least mild patellofemoral arthritis but no advanced [id number] grooving for example. With the effusion she may have full-thickness cartilage loss and at not be evident on the plain x-rays however. She does have some degree of osteoarthritis. I looked at the previous AP and lateral views on PACS and there is mild medial joint space narrowing and mild medial joint line spurring but nothing advanced. I suspect her symptoms may be more patellofemoral origin with superimposed mild inflammatory arthritis very possibly due to mild flare of gout as previously stated. I have talked her about the option of a cortisone injection. I have discussed that there are some risks with cortisone shot including the probability that her blood sugars will go up for a few days somewhat. Some patients it is more pronounced if her blood sugar control is poor. I have discussed the risk of infection when injecting a needle into the joint. She would like to try a shot and I think that would be most appropriate for her since her knee pain is limiting her quite a bit with respect to her ability to mobilize. After ChloraPrep prep, 2.5 cc of the Petterchak less tone Soluspan solution and 3 cc 1% lidocaine were injected into the left knee without difficulty and she tolerated this very well. She may continue to mobilize as tolerated without restriction. I spoke to Dr. Reyes about this patient earlier this morning and we talked about asking Dr. Gonzalez to make recommendations on optimal treatment and management of her elevated uric acid level as this is related to her renal insufficiency in all likelihood. Patient mentioned that she has had cortisone shots in her knees in the past by Dr. Goode have been helpful Subjective Subjective Date/Time Seen: 05/09/22 11:30 Objective Data Vital Signs Vital Signs: Vital Signs - 24 hr 05/08/22 12:00 05/08/22 13:53 05/08/22 16:00 Temperature 36.6 C Pulse Rate 69 70 68 Respiratory Rate 16 Blood Pressure 97/45 L Pulse Oximetry 96 Oxygen Delivery 05/08/22 19:40 05/08/22 19:37 05/08/22 21:02 Temperature 36.6 C Pulse Rate 73 76 Respiratory Rate 16 Blood Pressure 149/60 H Pulse Oximetry 96 96 Oxygen Delivery Room Air 05/08/22 20:00 05/09/22 00:00 05/09/22 04:08 Temperature 36.5 C Pulse Rate 79 81 80 Respiratory Rate 16 Blood Pressure 122/63 Pulse Oximetry 96 Oxygen Delivery 05/09/22 05:07 05/09/22 08:11 05/09/22 08:11 Temperature Pulse Rate 90 76 76 Respiratory Rate Blood Pressure Pulse Oximetry Oxygen Delivery 05/09/22 08:04 Temperature Pulse Rate 83 Respiratory Rate Blood Pressure Pulse Oximetry Oxygen Delivery Intake/Output Intake/Output: Intake & Output 05/06/22 05/07/22 05/08/22 05/09/22 23:59 23:59 23:59 23:59 Intake Total 1270 1122 1800 540 Output Total 1275 1100 575 Balance -5 22 1226 540
--- NOTE | 2022-05-09 11:40 | P.PNNP_ITS ---
Progress Note: A&P Assessment and Plan (1) LIV (acute kidney injury): Code(s): N17.9 - Acute kidney failure, unspecified Status: Acute Assessment and Plan: * etiology not entirely clear - element of disease progression?? * possible relative hypotension(?) * admission systolic BP running 140 - 150s systolic * by 05/06/22 (late in the day), running 105 - 110 systolic * HOWEVER, this does not explain her admission creatinine of 2.9mg/dl * BP seems to be doing better now... * renal ultrasound c/w CKD; no acute findings * urine electrolytes are not prerenal * attempt to optimize hemodynamics as tolerated * follow repeat labs and UOP (2) Chronic kidney disease, stage IV (severe): Code(s): N18.4 - Chronic kidney disease, stage 4 (severe) Status: Acute Assessment and Plan: * baseline creatinine had been running 1.4 - 1.8mg/dl since 2017 * has since risen to 1.9 - 2.1mg/dl since early 2021 * due to HTN, DM, vascular disease, and age-related change based on outpatient evaluation (3) Essential hypertension: Code(s): I10 - Essential (primary) hypertension Status: Chronic Assessment and Plan: * as noted, running a bit softer than baseline * unclear why on both metoprolol and carvedilol -- will d/c metoprolol * holding ARB/losartan * did initiation of flomax cause drop in BP(?) * follow trend of hemodynamics (4) SUZANNE (obstructive sleep apnea): Code(s): G47.33 - Obstructive sleep apnea (adult) (pediatric) Status: Acute Assessment and Plan: * continue use of CPAP (5) Diabetes: Code(s): E11.9 - Type 2 diabetes mellitus without complications Status: Chronic Assessment and Plan: * follow accuchecks * glycemic control Will continue to follow. Subjective Date/time seen: 07/03/22 11:40 Seems to be doing reasonably well at the time of my visit; still with some generalized weakness but is trying to ambulate in general; steroids appear to be helping with her gout pain; no other issues/events noted currently or overnight; no apparent distress voiced. Exam Narrative: General: WD/WN female in NAD Heart: normal S1 and S2; no rub Lungs: clear to auscultation Abdomen: soft, nontender, nondistended, positive bowel sounds Extremities: no cyanosis or clubbing; 2+ edema Skin: warm and intact Objective Data Vital Signs Vital Signs: Vital Signs Temp Pulse Resp BP Pulse Ox O2 Del Method 05/09/22 08:04 83 05/09/22 08:11 76 05/09/22 08:11 76 05/09/22 05:07 90 05/09/22 04:08 36.5 C 80 16 122/63 96 05/09/22 00:00 81 05/08/22 20:00 79 05/08/22 21:02 96 Room Air 05/08/22 19:37 76 05/08/22 19:40 36.6 C 73 16 149/60 H 96 Intake/Output Intake/Output: Intake & Output 05/06/22 05/07/22 05/08/22 05/09/22 23:59 23:59 23:59 23:59 Intake Total 1270 1122 1800 840 Output Total 1275 1100 575 100 Balance -5 22 1225 740 Meds/Results Medications: Active Medications Generic Name Dose Route Start Last Admin Trade Name Luis Alberto Yun
--- NOTE | 2022-05-09 11:40 | PM.PNNEP ---
Progress Note: A&P Assessment and Plan (1) LIV (acute kidney injury): Code(s): N17.9 - Acute kidney failure, unspecified Status: Acute Assessment and Plan: etiology not entirely clear - element of disease progression?? possible relative hypotension(?) admission systolic BP running 140 - 150s systolic by 05/06/22 (late in the day), running 105 - 110 systolic HOWEVER, this does not explain her admission creatinine of 2.9mg/dl BP seems to be doing better now... renal ultrasound c/w CKD; no acute findings urine electrolytes are not prerenal attempt to optimize hemodynamics as tolerated follow repeat labs and UOP (2) Chronic kidney disease, stage IV (severe): Code(s): N18.4 - Chronic kidney disease, stage 4 (severe) Status: Acute Assessment and Plan: baseline creatinine had been running 1.4 - 1.8mg/dl since 2017 has since risen to 1.9 - 2.1mg/dl since early 2021 due to HTN, DM, vascular disease, and age-related change based on outpatient evaluation (3) Essential hypertension: Code(s): I10 - Essential (primary) hypertension Status: Chronic Assessment and Plan: as noted, running a bit softer than baseline unclear why on both metoprolol and carvedilol -- will d/c metoprolol holding ARB/losartan did initiation of flomax cause drop in BP(?) follow trend of hemodynamics (4) SUZANNE (obstructive sleep apnea): Code(s): G47.33 - Obstructive sleep apnea (adult) (pediatric) Status: Acute Assessment and Plan: continue use of CPAP (5) Diabetes: Code(s): E11.9 - Type 2 diabetes mellitus without complications Status: Chronic Assessment and Plan: follow accuchecks glycemic control Will continue to follow. Subjective Date/time seen: 05/09/22 11:40 Seems to be doing reasonably well at the time of my visit; still with some generalized weakness but is trying to ambulate in general; steroids appear to be helping with her gout pain; no other issues/events noted currently or overnight; no apparent distress voiced. Exam Narrative: General: WD/WN female in NAD Heart: normal S1 and S2; no rub Lungs: clear to auscultation Abdomen: soft, nontender, nondistended, positive bowel sounds Extremities: no cyanosis or clubbing; 2+ edema Skin: warm and intact Objective Data Vital Signs Vital Signs: Vital Signs Temp Pulse Resp BP Pulse Ox O2 Del Method 05/09/22 08:04 83 05/09/22 08:11 76 05/09/22 08:11 76 05/09/22 05:07 90 05/09/22 04:08 36.5 C 80 16 122/63 96 05/09/22 00:00 81 05/08/22 20:00 79 05/08/22 21:02 96 Room Air 05/08/22 19:37 76 05/08/22 19:40 36.6 C 73 16 149/60 H 96 Intake/Output Intake/Output: Intake & Output 05/06/22 05/07/22 05/08/22 05/09/22 23:59 23:59 23:59 23:59 Intake Total 1270 1122 1800 840 Output Total 1275 1100 575 100 Balance -5 22 1225 740 Meds/Results Medications: Active Medications Generic Name Dose Route Start Last Admin Trade Name Freq PRN Reason Stop Dose Admin Acetaminophen 650 mg 05/04/22 22:43 05/07/22 03:36 Acetaminophen 325 Mg Tablet PO 650 mg Q4H PRN Administration Mild Pain (1-3) Or Fever Hydrocodone Bitart/Acetaminophen 1 tab 05/04/22 22:43 05/09/22 08:12 Hydrocodone/Acetaminophen (*Crx) 10-325 Mg Tablet PO 1 tab Q8H PRN Administration Pain Rated 4-6 Albuterol 2.5 mg 05/04/22 22:43 Albuterol Sulfate Neb 2.5 Mg/3 Ml Inh INHALATION Q6HRT PRN shortness of breath or wheezing Albuterol 1 puff 05/04/22 22:43 Albuterol Sulfate (*Sp) Aerosol 1 Puff INHALATION Q6H PRN Shortness Of Breath Amiodarone HCl 200 mg 05/05/22 08:00 05/09/22 08:11 Amiodarone Hcl 200 Mg Tablet PO 200 mg DAILY@0800 CODY Administration Apixaban 5 mg 05/05/22 09:00 05/08/22 08:23 Apixaban 5 Mg Tablet PO 5 mg Q12HR CODY A
[2022-05-09 12:09] LABS: Glucose Point of Care 226 mg/dl (65-105)
[2022-05-09 16:45] LABS: Glucose Point of Care 269 mg/dl (65-105)
[2022-05-09 18:35] LABS: Glucose Point of Care 387 mg/dl (65-105)
[2022-05-09] MEDS: INSULIN ASPART (*BKC) 100 UNITS/ML 10 UNITS SUB-Q (18:51)
[2022-05-09] MEDS: INSULIN GLARGINE (*BKC) 100 UNITS/ML 10 UNITS SUB-Q (20:58)
[2022-05-09] MEDS: INSULIN ASPART (*BKC) 100 UNITS/ML 8 UNITS SUB-Q (20:58)
[2022-05-09] MEDS: ACETAMINOPHEN 325 MG TABLET 650 MG PO (20:58)
[2022-05-09 21:01] LABS: Glucose Point of Care 415 mg/dl (65-105)
[2022-05-09 22:59] LABS: Glucose Point of Care 415 mg/dl (65-105)
[2022-05-10] VITALS (12 sets, daily range): BP systolic 151–170; BP diastolic 68–82; PULSE 66–80; RESP 16; TEMP 35.7–36.3; O2SAT 92–99
[2022-05-10 02:23] LABS: Glucose Point of Care 328 mg/dl (65-105)
[2022-05-10] MEDS: INSULIN ASPART (*BKC) 100 UNITS/ML 6 UNITS SUB-Q (03:01)
[2022-05-10] MEDS: HYDROcodone/acetaminophen (*CRX) 10-325 MG TABLET 1 TAB PO ×3 (03:01→22:03)
[2022-05-10 06:15] LABS: Basophils Percent Auto 0.2 % (0.2-1.2); Hematocrit 28.3 % (37.0-47.0); Hemoglobin 9.1 g/dL (12.0-15.0); Immature Granulocyte Absolute 0.03 K/mm3 (0.00-0.031); Immature Granulocyte Percent A 0.5 % (0-0.5); Lymphocytes Absolute Auto 0.62 K/mm3 (0.9-3.2); Lymphocytes Percent Auto 10.8 % (18.3-44.2); Mean Corpuscular HGB Conc 32.2 g/dl (32-36); Mean Corpuscular Hemoglobin 31.9 pg (26-34); Mean Corpuscular Volume 99.3 fl (80-100); Mean Platelet Volume 9.4 fl (7.4-10.4); Monocytes Absolute Auto 0.2 K/mm3 (0.1-0.6); Monocytes Percent Auto 3.3 % (2.6-8.5); Neutrophils Absolute Auto 4.9 K/mm3 (1.3-6.7); Neutrophils Percent Auto 85.2 % (45.5-73.1); Platelet Count Result 295 k/mm3 (150-375); Red Blood Count 2.85 M/mm3 (4.2-5.4); Red Cell Distribution Width 14.7 % (11.5-14.5); White Blood Count 5.7 K/mm3 (4.5-10.0)
[2022-05-10 06:32] LABS: Alanine Aminotransferase 12 U/L (6-35); Albumin Level 3.6 g/dL (3.5-5.1); Alkaline Phosphatase 69 U/L (38-126); Anion Gap 6 mmol/L (8-16); Aspartate Amino Transferase 17 U/L (14-36); Bilirubin,Total 0.2 mg/dL (0.2-1.3); Blood Urea Nitrogen 64 mg/dL (7-17); Calcium 8.7 mg/dL (8.4-10.2); Carbon Dioxide 26 mmol/L (22-30); Chloride 105 mmol/L (98-107); Estimated CRCL calculation 19 ml/min; Estimated Glomerular Filt Rate 15; Glucose 244 mg/dL (65-110); Magnesium 2.6 mg/dL (1.6-2.3); Potassium 5.2 mmol/L (3.4-5.0); Sodium 137 mmol/L (137-145)
[2022-05-10 07:55] LABS: Glucose Point of Care 219 mg/dl (65-105)
--- NOTE | 2022-05-10 09:07 | PM.PNORT ---
Progress Note: A&P Additional Plan Day 1 after cortisone shot left knee. White count normal 5.7. Creatinine slightly improved at 3.0. Glucose this morning 244. She states that the cortisone shot helped a lot she states she has been up and walking and the pain in her left knee is gone. On exam today she has full range of motion left knee and there is no effusion palpable. It was moderate yesterday. There is no tenderness over the front of the knee today. She has had a dramatically favorable response to the cortisone injection which I think argues for an inflammatory component very possibly a gout flare 1st time. We do not have intracellular crystals to prove that diagnosis on the fluid analysis but her fluid analysis did show a mildly inflammatory effusion in the left knee and with her transient pain right 1st MTP joint also, this fits well with gout flare. I would recommend deferring to Dr. Gonzalez the question of ill-appearing all dosing and long-term management of her elevated uric acid level. I will sign off at this time and will be available if she has further problems with her knee. Subjective Subjective Date/Time Seen: 05/10/22 09:07 Objective Data Vital Signs Vital Signs: Vital Signs - 24 hr 05/09/22 12:08 05/09/22 14:00 05/09/22 16:24 Temperature 37.0 C Pulse Rate 71 78 71 Respiratory Rate 18 Blood Pressure 116/58 L Pulse Oximetry 97 05/09/22 19:42 05/09/22 20:58 05/09/22 20:00 Temperature 36.2 C L Pulse Rate 87 85 85 Respiratory Rate 20 Blood Pressure 159/69 H Pulse Oximetry 95 05/10/22 00:00 05/10/22 04:38 05/10/22 05:56 Temperature 36.3 C L Pulse Rate 80 69 74 Respiratory Rate 16 Blood Pressure 170/78 H Pulse Oximetry 99 Intake/Output Intake/Output: Intake & Output 05/07/22 05/08/22 05/09/22 05/10/22 23:59 23:59 23:59 23:59 Intake Total 1122 1800 1540 400 Output Total 1100 575 650 Balance 22 1225 890 400 Meds/Results Medications: Active Medications Generic Name Dose Route Start Last Admin Trade Name Freq PRN Reason Stop Dose Admin Acetaminophen 650 mg 05/04/22 22:43 05/09/22 20:58 Acetaminophen 325 Mg Tablet PO 650 mg Q4H PRN Administration Mild Pain (1-3) Or Fever Hydrocodone Bitart/Acetaminophen 1 tab 05/04/22 22:43 05/10/22 03:01 Hydrocodone/Acetaminophen (*Crx) 10-325 Mg Tablet PO 1 tab Q8H PRN Administration Pain Rated 4-6 Albuterol 2.5 mg 05/04/22 22:43 Albuterol Sulfate Neb 2.5 Mg/3 Ml Inh INHALATION Q6HRT PRN shortness of breath or wheezing Albuterol 1 puff 05/04/22 22:43 Albuterol Sulfate (*Sp) Aerosol 1 Puff INHALATION Q6H PRN Shortness Of Breath Amiodarone HCl 200 mg 05/05/22 08:00 05/09/22 08:11 Amiodarone Hcl 200 Mg Tablet PO 200 mg DAILY@0800 CODY Administration Apixaban 5 mg 05/05/22 09:00 05/08/22 08:23 Apixaban 5 Mg Tablet PO 5 mg Q12HR CODY Administration Atorvastatin Calcium 80 mg 05/05/22 09:00 05/09/22 08:12 Atorvastatin 40 Mg Tablet PO 80 mg DAILY CODY Administration Carvedilol 25 mg 05/10/22 09:00 Carvedilol 25 Mg Tablet PO Q12HR CODY Dextrose 12.5 gm 05/04/22 20:20 Dextrose 50% 25 Gm/50 Ml Syringe IV PUSH PRN PRN Hypoglycemia Protocol Diphenhydramine HCl 25 mg 05/05/22 09:00 05/09/22 08:12 Diphenhydramine Hcl Cap 25 Mg Capsule PO 25 mg DAILY CODY Administration Docusate Sodium 100 mg 05/05/22 09:00 05/09/22 08:12 Docusate Sodium 100 Mg Capsule PO 100 mg DAILY CODY Administration Ezetimibe 10 mg 05/05/22 09:00 05/09/22 08:11 Ezetimibe 10 Mg Tablet PO 10 mg DAILY CODY Administration Ergocalciferol 50,000 unit 05/05/22 09:00 05/05/22 08:11 Ergocalciferol 50,000 Unit Capsule PO 50,000 unit We CODY Administration Fenofibrate 160 mg 05/05/22 09:00 05/09/22 08:11 Fenofibrate 160 Mg Tablet PO 160 mg DAILY CODY Administration Gabapentin
[2022-05-10] MEDS: TAMSULOSIN HCL 0.4 MG CAPSULE PO (09:34)
[2022-05-10] MEDS: carvediloL 25 MG TABLET PO ×2 (09:34→20:24)
[2022-05-10] MEDS: glipiZIDE 5 MG TABLET 10 MG PO ×2 (09:34→17:30)
[2022-05-10] MEDS: ATORVASTATIN 40 MG TABLET 80 MG PO (09:35)
[2022-05-10] MEDS: PANTOPRAZOLE 40 MG TABLET PO (09:35)
[2022-05-10] MEDS: EZETIMIBE 10 MG TABLET PO (09:35)
[2022-05-10] MEDS: GABAPENTIN 300 MG CAPSULE PO ×2 (09:36→17:33)
[2022-05-10] MEDS: DOCUSATE SODIUM 100 MG CAPSULE PO (09:37)
[2022-05-10] MEDS: FENOFIBRATE 160 MG TABLET PO (09:37)
[2022-05-10] MEDS: INSULIN ASPART (*BKC) 100 UNITS/ML SUB-Q ×6 (09:40→17:34)
[2022-05-10] MEDS: diphenhydrAMINE HCl CAP 25 MG CAPSULE PO (09:40)
--- NOTE | 2022-05-10 12:00 | P.PNIM_ITS ---
Progress Note: A&P Assessment and Plan (1) Acute kidney injury superimposed on chronic kidney disease: Code(s): N17.9 - Acute kidney failure, unspecified; N18.9 - Chronic kidney disease, unspecified Status: Acute Assessment and Plan: * BUN and creatinine better today * baseline would be 1.9-2 * creatinine is 3.00 today * consult Nephrology and appreciate further recommendations. * Trend intake and output closely. * Lasix has been stopped * could be secondary to progressive chronic kidney disease or obstruction * renal ultrasounds performed and showed no hydronephrosis * FEUrea indicates intrinsic renal disease with a score of 42.2% * daily weights. * renally adjust medications * avoid any nephrotoxic agents (2) Gout flare: Code(s): M10.9 - Gout, unspecified Status: Acute Assessment and Plan: * Uric acid is 10.6, could be from renal insufficiency * Started in left knee * Now in the right toe * Allopurinol continued at 50mg PO daily per nephrology * Solumedrol initiated for better control, discontinued due to elevated glucose * Joint aspiration did not show any crystals (3) Effusion of knee joint, left: Code(s): M25.462 - Effusion, left knee Status: Acute Assessment and Plan: * Patient reports pain in left knee * x-rays indicate a large joint effusion * Repeat xray 05/09/22 shows OA of the patellofemoral joint * orthopedics has been consulted thank you for your help * Aspiration of clear fluid, RBC 70, Nuc cells 1624, Neutrophils 68, no crystals * Await culture preliminary does not show infection * Cortisone shot given by ortho * pain medication on board for pain * PT and OT * Eliquis on hold for preparation of joint aspiration (4) SUZANNE (obstructive sleep apnea): Code(s): G47.33 - Obstructive sleep apnea (adult) (pediatric) Status: Acute Assessment and Plan: * Will continue with home CPAP if this can be brought in if not we will provide a CPAP for the patient (5) Diabetes: Code(s): E11.9 - Type 2 diabetes mellitus without complications Status: Chronic Assessment and Plan: * Current glucose is 244 * Continue lantus, glipizide and januvia * ISS * Accu cheks achs * Trend glucose * Adjust therapy as indicated * Elevated from steroid, steroids DCd at this time (6) Essential hypertension: Code(s): I10 - Essential (primary) hypertension Status: Chronic Assessment and Plan: * 170/78 this morning * Increase home carvedilol to 25mg Daily * Continue home medications * Trend BP * adjust therapy as indicted Time Spent With Patient Time with patient: Greater than 35 minutes Subjective Date/time seen: 05/10/221199 Interval history: 05/10/221199 Patient stated that she was not too good today she had headache however now. She denies any nausea, vomiting, chest pain, shortness a breath, weakness or fatigue. She did state that she was able to get up and down from the chair to the wheelchair to the bathroom. I did talk to Dr. Carrillo who stated patient could be started on allopurinol 50 mg p.o. daily for gout. Her blood pressure was elevated 170/78 this morning. Did up her carvedilol to 25 mg. Could be the reason why she has had the headache. She was also very upset her blood glucose. She stated that it has been very high in that she has been battling all nig
--- NOTE | 2022-05-10 12:00 | PM.IMPN ---
Progress Note: A&P Assessment and Plan (1) Acute kidney injury superimposed on chronic kidney disease: Code(s): N17.9 - Acute kidney failure, unspecified; N18.9 - Chronic kidney disease, unspecified Status: Acute Assessment and Plan: BUN and creatinine better today baseline would be 1.9-2 creatinine is 3.00 today consult Nephrology and appreciate further recommendations. Trend intake and output closely. Lasix has been stopped could be secondary to progressive chronic kidney disease or obstruction renal ultrasounds performed and showed no hydronephrosis FEUrea indicates intrinsic renal disease with a score of 42.2% daily weights. renally adjust medications avoid any nephrotoxic agents (2) Gout flare: Code(s): M10.9 - Gout, unspecified Status: Acute Assessment and Plan: Uric acid is 10.6, could be from renal insufficiency Started in left knee Now in the right toe Allopurinol continued at 50mg PO daily per nephrology Solumedrol initiated for better control, discontinued due to elevated glucose Joint aspiration did not show any crystals (3) Effusion of knee joint, left: Code(s): M25.462 - Effusion, left knee Status: Acute Assessment and Plan: Patient reports pain in left knee x-rays indicate a large joint effusion Repeat xray 05/09/22 shows OA of the patellofemoral joint orthopedics has been consulted thank you for your help Aspiration of clear fluid, RBC 70, Nuc cells 1624, Neutrophils 68, no crystals Await culture preliminary does not show infection Cortisone shot given by ortho pain medication on board for pain PT and OT Eliquis on hold for preparation of joint aspiration (4) SUZANNE (obstructive sleep apnea): Code(s): G47.33 - Obstructive sleep apnea (adult) (pediatric) Status: Acute Assessment and Plan: Will continue with home CPAP if this can be brought in if not we will provide a CPAP for the patient (5) Diabetes: Code(s): E11.9 - Type 2 diabetes mellitus without complications Status: Chronic Assessment and Plan: Current glucose is 244 Continue lantus, glipizide and januvia ISS Accu cheks achs Trend glucose Adjust therapy as indicated Elevated from steroid, steroids DCd at this time (6) Essential hypertension: Code(s): I10 - Essential (primary) hypertension Status: Chronic Assessment and Plan: 170/78 this morning Increase home carvedilol to 25mg Daily Continue home medications Trend BP adjust therapy as indicted Time Spent With Patient Time with patient: Greater than 35 minutes Subjective Date/time seen: 05/10/221199 Interval history: 05/10/221199 Patient stated that she was not too good today she had headache however now. She denies any nausea, vomiting, chest pain, shortness a breath, weakness or fatigue. She did state that she was able to get up and down from the chair to the wheelchair to the bathroom. I did talk to Dr. Carrillo who stated patient could be started on allopurinol 50 mg p.o. daily for gout. Her blood pressure was elevated 170/78 this morning. Did up her carvedilol to 25 mg. Could be the reason why she has had the headache. She was also very upset her blood glucose. She stated that it has been very high in that she has been battling all night. Explained her that she is on steroids and that is probably why her sugars higher than normal. 05/09/22 1000 she seems to be doing well today. Patient states that her pain is minimal. Unfortunately the allopurinol is contraindicated with her renal function. Steroids seem to be working she is more worried about her diet. She denies any chest pain, shortness of breath, nausea, vomiting, diarrhea, constipation, weakness or fatigue she did state that she is able to stand on legs and she is able to pivot herself to t
[2022-05-10 12:01] LABS: Glucose Point of Care 316 mg/dl (65-105)
[2022-05-10] MEDS: AMIODARONE HCL 200 MG TABLET PO (12:23)
--- NOTE | 2022-05-10 13:37 | PM.PNNEP ---
Progress Note: A&P Assessment and Plan (1) LIV (acute kidney injury): Code(s): N17.9 - Acute kidney failure, unspecified Status: Acute Assessment and Plan: he patient has acute kidney injury. Renal ultrasound unremarkable. Urine electrolytes are non pre renal. She is on no nephrotoxic medications. Her creatinine was higher before and has come down a little bit but not to baseline. (2) Chronic kidney disease, stage IV (severe): Code(s): N18.4 - Chronic kidney disease, stage 4 (severe) Status: Acute Assessment and Plan: The patient has chronic kidney disease. Her baseline creatinine seems to be around 2. This is most likely due to diabetes, hypertension, and vascular disease. (3) Essential hypertension: Code(s): I10 - Essential (primary) hypertension Status: Chronic Assessment and Plan: Her blood pressure is certainly not over controlled Overall, however she has had a few episodes of systolic blood pressure around 100.. For some reason she was on both metoprolol and carvedilol. The former was discontinued and the latter was increased. (4) SUZANNE (obstructive sleep apnea): Code(s): G47.33 - Obstructive sleep apnea (adult) (pediatric) Status: Acute Assessment and Plan: she uses a CPAP machine (5) Diabetes: Code(s): E11.9 - Type 2 diabetes mellitus without complications Status: Chronic Assessment and Plan: she is on sliding scale insulin per hospitalist\s Subjective Date/time seen: 05/10/22 13:37 Interval history: Patient feels better today. No chest pain or shortness of breath. She is eager for discharge but her daughter cannot pick her up today. Review of Systems Cardiovascular: Cardiovascular: Reports no additional cardiovascular complaints Respiratory: Respiratory: Reports no additional respiratory complaints Gastrointestinal: Gastrointestinal: Reports no additional gastrointestinal complaints Genitourinary: Genitourinary: Reports no additional female genitourinary complaints Exam Narrative: WDWN in NAD skin no rash head ncat lungs clear cor reg no rub abd BS+ nontender and soft ext no edema. Objective Data Vital Signs Vital Signs: Vital Signs - 24 hr 05/09/22 14:00 05/09/22 16:24 05/09/22 19:42 Temperature 37.0 C 36.2 C L Pulse Rate 78 71 87 Respiratory Rate 18 20 Blood Pressure 116/58 L 159/69 H Pulse Oximetry 97 95 05/09/22 20:58 05/09/22 20:00 05/10/22 00:00 Temperature Pulse Rate 85 85 80 Respiratory Rate Blood Pressure Pulse Oximetry 05/10/22 04:38 05/10/22 05:56 05/10/22 09:34 Temperature 36.3 C L Pulse Rate 69 74 77 Respiratory Rate 16 Blood Pressure 170/78 H Pulse Oximetry 99 05/10/22 08:00 05/10/22 12:23 Temperature Pulse Rate 66 76 Respiratory Rate Blood Pressure Pulse Oximetry Intake/Output Intake/Output: Intake & Output 05/07/22 05/08/22 05/09/22 05/10/22 23:59 23:59 23:59 23:59 Intake Total 1122 1800 1540 880 Output Total 1100 575 650 Balance 22 1225 890 880 Meds/Results Medications: Active Medications Generic Name Dose Route Start Last Admin Trade Name Freq PRN Reason Stop Dose Admin Acetaminophen 650 mg 05/04/22 22:43 05/09/22 20:58 Acetaminophen 325 Mg Tablet PO 650 mg Q4H PRN Administration Mild Pain (1-3) Or Fever Hydrocodone Bitart/Acetaminophen 1 tab 05/04/22 22:43 05/10/22 03:01 Hydrocodone/Acetaminophen (*Crx) 10-325 Mg Tablet PO 1 tab Q8H PRN Administration Pain Rated 4-6 Albuterol 2.5 mg 05/04/22 22:43 Albuterol Sulfate Neb 2.5 Mg/3 Ml Inh INHALATION Q6HRT PRN shortness of breath or wheezing Albuterol 1 puff 05/04/22 22:43 Albuterol Sulfate (*Sp) Aerosol 1 Puff INHALATION Q6H PRN Shortness Of Breath Allopurinol 50 mg 05/10/22 13:15 Allopurinol 50 Mg Tablet PO DAILY@0800 CODY Am
[2022-05-10] MEDS: allopurinoL 50 MG TABLET PO (14:26)
[2022-05-10 16:54] LABS: Glucose Point of Care 279 mg/dl (65-105)
[2022-05-10] MEDS: INSULIN GLARGINE (*BKC) 100 UNITS/ML 10 UNITS SUB-Q (20:26)
[2022-05-10 21:08] LABS: Glucose Point of Care 296 mg/dl (65-105)
[2022-05-11] VITALS: PULSE 67
[2022-05-11 04:00] VITALS: PULSE 62
[2022-05-11 05:34] VITALS: BP 159/87; PULSE 74; RESP 16; TEMP 36.4; O2SAT 96
[2022-05-11 05:59] LABS: Basophils Percent Auto 0.3 % (0.2-1.2); Eosinophils Percent Auto 0.3 % (0-4.4); Hematocrit 27.9 % (37.0-47.0); Hemoglobin 8.9 g/dL (12.0-15.0); Immature Granulocyte Absolute 0.03 K/mm3 (0.00-0.031); Immature Granulocyte Percent A 0.5 % (0-0.5); Lymphocytes Absolute Auto 0.93 K/mm3 (0.9-3.2); Lymphocytes Percent Auto 14.2 % (18.3-44.2); Mean Corpuscular HGB Conc 31.9 g/dl (32-36); Mean Corpuscular Hemoglobin 31.9 pg (26-34); Mean Platelet Volume 9.6 fl (7.4-10.4); Monocytes Absolute Auto 0.4 K/mm3 (0.1-0.6); Monocytes Percent Auto 6.3 % (2.6-8.5); Neutrophils Absolute Auto 5.1 K/mm3 (1.3-6.7); Neutrophils Percent Auto 78.4 % (45.5-73.1); Platelet Count Result 300 k/mm3 (150-375); Red Blood Count 2.79 M/mm3 (4.2-5.4); Red Cell Distribution Width 14.7 % (11.5-14.5); White Blood Count 6.6 K/mm3 (4.5-10.0)
[2022-05-11 06:09] LABS: Alanine Aminotransferase 10 U/L (6-35); Albumin Level 3.4 g/dL (3.5-5.1); Alkaline Phosphatase 63 U/L (38-126); Anion Gap 5 mmol/L (8-16); Aspartate Amino Transferase 14 U/L (14-36); Bilirubin,Total 0.1 mg/dL (0.2-1.3); Blood Urea Nitrogen 68 mg/dL (7-17); Calcium 8.2 mg/dL (8.4-10.2); Carbon Dioxide 26 mmol/L (22-30); Chloride 106 mmol/L (98-107); Estimated CRCL calculation 21 ml/min; Estimated Glomerular Filt Rate 16; Glucose 166 mg/dL (65-110); Magnesium 2.6 mg/dL (1.6-2.3); Potassium 5.2 mmol/L (3.4-5.0); Sodium 137 mmol/L (137-145)
[2022-05-11 07:51] LABS: Glucose Point of Care 142 mg/dl (65-105)
[2022-05-11] MEDS: INSULIN ASPART (*BKC) 100 UNITS/ML SUB-Q ×4 (08:38→16:45)
[2022-05-11] MEDS: GABAPENTIN 300 MG CAPSULE PO ×2 (08:41→16:44)
[2022-05-11] MEDS: EZETIMIBE 10 MG TABLET PO (08:42)
[2022-05-11] MEDS: FENOFIBRATE 160 MG TABLET PO (08:42)
[2022-05-11] MEDS: allopurinoL 50 MG TABLET PO (08:42)
[2022-05-11] MEDS: PANTOPRAZOLE 40 MG TABLET PO (08:43)
[2022-05-11] MEDS: TAMSULOSIN HCL 0.4 MG CAPSULE PO (08:43)
[2022-05-11] MEDS: DOCUSATE SODIUM 100 MG CAPSULE PO (08:43)
[2022-05-11] MEDS: ATORVASTATIN 40 MG TABLET 80 MG PO (08:43)
[2022-05-11 08:45] VITALS: PULSE 74
[2022-05-11] MEDS: AMIODARONE HCL 200 MG TABLET PO (08:45)
[2022-05-11] MEDS: carvediloL 25 MG TABLET PO (08:45)
--- NOTE | 2022-05-11 09:15 | P.DS_ITS ---
DS: Admitting Diagnosis Discharge Date 05/11/22 0915 Admitting Diagnosis LIV on CKD/Gout flare up/Joint effusion DS: Discharge Diagnosis Discharge Diagnosis (1) Acute kidney injury superimposed on chronic kidney disease: Code(s): N17.9 - Acute kidney failure, unspecified; N18.9 - Chronic kidney disease, unspecified Status: Acute Assessment and Plan: * BUN and creatinine better today * baseline would be 1.9-2 * creatinine is 2.80 today * consult Nephrology and appreciate further recommendations. * Trend intake and output closely. * Lasix has been stopped * could be secondary to progressive chronic kidney disease or obstruction * renal ultrasounds performed and showed no hydronephrosis * FEUrea indicates intrinsic renal disease with a score of 42.2% * daily weights. * renally adjust medications * avoid any nephrotoxic agents (2) Gout flare: Code(s): M10.9 - Gout, unspecified Status: Acute Assessment and Plan: * Uric acid is 10.6, could be from renal insufficiency * Started in left knee * Now in the right toe * Allopurinol continued at 50mg PO daily per nephrology * Solumedrol initiated for better control, discontinued due to elevated glucose * Joint aspiration did not show any crystals (3) Effusion of knee joint, left: Code(s): M25.462 - Effusion, left knee Status: Acute Assessment and Plan: * Patient reports pain in left knee * x-rays indicate a large joint effusion * Repeat xray 05/09/22 shows OA of the patellofemoral joint * orthopedics has been consulted thank you for your help * Aspiration of clear fluid, RBC 70, Nuc cells 1624, Neutrophils 68, no crystals * Await culture preliminary does not show infection * Cortisone shot given by ortho * pain medication on board for pain * PT and OT * Eliquis on hold for preparation of joint aspiration (4) SUZANNE (obstructive sleep apnea): Code(s): G47.33 - Obstructive sleep apnea (adult) (pediatric) Status: Acute Assessment and Plan: * Will continue with home CPAP if this can be brought in if not we will provide a CPAP for the patient (5) Diabetes: Code(s): E11.9 - Type 2 diabetes mellitus without complications Status: Chronic Assessment and Plan: * Current glucose is 244 * Continue lantus, glipizide and januvia * ISS * Accu cheks achs * Trend glucose * Adjust therapy as indicated * Elevated from steroid, steroids DCd at this time (6) Essential hypertension: Code(s): I10 - Essential (primary) hypertension Status: Chronic Assessment and Plan: * 170/78 this morning * Increase home carvedilol to 25mg Daily * Continue home medications * Trend BP * adjust therapy as indicted DS: Summary Hospital Course Hospital Course: Patient is a 76-year-old female with a past medical history of COPD, CHF, CVA, diabetes, SUZANNE who presented to the ED from her primary provider for abnormal labs. Upon arrival it was noted that her creatinine was elevated. Patient was started on IV fluids and Nephrology was consulted. Renal labs were collected and patient was noted to have an intrinsic renal disease with a score of 42.2. It was initial found that the patient could be having some urinary retention. Urinary catheter was inserted, however, her renal function did not improve. A couple of days later it was noted that she was having shanae
--- NOTE | 2022-05-11 09:15 | PM.DS ---
DS: Admitting Diagnosis Discharge Date 05/11/22 0915 Admitting Diagnosis LIV on CKD/Gout flare up/Joint effusion DS: Discharge Diagnosis Discharge Diagnosis (1) Acute kidney injury superimposed on chronic kidney disease: Code(s): N17.9 - Acute kidney failure, unspecified; N18.9 - Chronic kidney disease, unspecified Status: Acute Assessment and Plan: BUN and creatinine better today baseline would be 1.9-2 creatinine is 2.80 today consult Nephrology and appreciate further recommendations. Trend intake and output closely. Lasix has been stopped could be secondary to progressive chronic kidney disease or obstruction renal ultrasounds performed and showed no hydronephrosis FEUrea indicates intrinsic renal disease with a score of 42.2% daily weights. renally adjust medications avoid any nephrotoxic agents (2) Gout flare: Code(s): M10.9 - Gout, unspecified Status: Acute Assessment and Plan: Uric acid is 10.6, could be from renal insufficiency Started in left knee Now in the right toe Allopurinol continued at 50mg PO daily per nephrology Solumedrol initiated for better control, discontinued due to elevated glucose Joint aspiration did not show any crystals (3) Effusion of knee joint, left: Code(s): M25.462 - Effusion, left knee Status: Acute Assessment and Plan: Patient reports pain in left knee x-rays indicate a large joint effusion Repeat xray 05/09/22 shows OA of the patellofemoral joint orthopedics has been consulted thank you for your help Aspiration of clear fluid, RBC 70, Nuc cells 1624, Neutrophils 68, no crystals Await culture preliminary does not show infection Cortisone shot given by ortho pain medication on board for pain PT and OT Eliquis on hold for preparation of joint aspiration (4) SUZANNE (obstructive sleep apnea): Code(s): G47.33 - Obstructive sleep apnea (adult) (pediatric) Status: Acute Assessment and Plan: Will continue with home CPAP if this can be brought in if not we will provide a CPAP for the patient (5) Diabetes: Code(s): E11.9 - Type 2 diabetes mellitus without complications Status: Chronic Assessment and Plan: Current glucose is 244 Continue lantus, glipizide and januvia ISS Accu cheks achs Trend glucose Adjust therapy as indicated Elevated from steroid, steroids DCd at this time (6) Essential hypertension: Code(s): I10 - Essential (primary) hypertension Status: Chronic Assessment and Plan: 170/78 this morning Increase home carvedilol to 25mg Daily Continue home medications Trend BP adjust therapy as indicted DS: Summary Hospital Course Hospital Course: Patient is a 76-year-old female with a past medical history of COPD, CHF, CVA, diabetes, SUZANNE who presented to the ED from her primary provider for abnormal labs. Upon arrival it was noted that her creatinine was elevated. Patient was started on IV fluids and Nephrology was consulted. Renal labs were collected and patient was noted to have an intrinsic renal disease with a score of 42.2. It was initial found that the patient could be having some urinary retention. Urinary catheter was inserted, however, her renal function did not improve. A couple of days later it was noted that she was having some left knee pain. Xray was taken and showed large joint effusion. Orthopedics was consulted and tapped the effusion. No crystal were seen, however, she did have an elevated Uric acid level and was initiated on steroids. She was also started on allopurinol for the gout at 50mg PO daily per nephrology. She also received a knee injection and has been able to move around independently since. She is urinating ok. Her labs are continuing to improve. She is stable for DC at this time. Labs and vital signs are stable. Will h
[2022-05-11] MEDS: diphenhydrAMINE HCl CAP 25 MG CAPSULE PO (10:02)
[2022-05-11] MEDS: glipiZIDE 5 MG TABLET 10 MG PO ×2 (10:02→16:44)
[2022-05-11 11:28] LABS: Glucose Point of Care 332 mg/dl (65-105)
[2022-05-11 11:28] LABS: Glucose Point of Care 356 mg/dl (65-105)
[2022-05-11] MEDS: HYDROcodone/acetaminophen (*CRX) 10-325 MG TABLET 1 TAB PO (11:40)
--- NOTE | 2022-05-11 13:32 | PCOTNOTE ---
Attempted to see patient twice this pm. First attempt, patient was eating lunch. Second attempt, patient declined due to anticipating discharge.
[2022-05-11 14:00] VITALS: BP 112/56; PULSE 66; RESP 18; TEMP 36.4; O2SAT 97
[2022-05-11 16:30] LABS: EDCOVIDSCREEN Negative (Negative)
[2022-05-11 16:30] LABS: Glucose Point of Care 188 mg/dl (65-105)
[2022-05-11 17:07] LABS: Appearance Synovial Fluid Bloody (Clear); Color Synovial Fluid Red (Colorless); Crystals Synovial Fluid None Seen (None Seen); Lymphocytes Synovial Fluid 26 %; Macrophages Synovial Fluid 26 %; Monocytes Synovial Fluid 4 %; Neutrophils Synovial Fluid 44 % (0-25); Nucleated Cell Synovial Fluid 368 /uL (0-200); Source Synovial Fluid Synovial fluid
[2022-05-12 10:09] LABS: Osmolality, Urine 360 mOsm/kg (50-1200)
== END 2022-05-11 18:15 | DRG 683 ==
LOC: ANHED 15:00 → ANH3MED 16:50
PROVIDERS: Internal Medicine Nephrology; Nurse Practitioner Adult Health; Admitting Provider Family Medicine; Emergency Provider Emergency Medicine; PCP Family Medicine; Visit Provider Nurse Practitioner
DX: N17.9 Acute kidney failure, unspecified (principal); I13.0 Hypertensive heart and chronic kidney disease with heart failure and stage 1 through stage 4 chronic kidney disease, or unspecified chronic kidney disease; E11.22 Type 2 diabetes mellitus with diabetic chronic kidney disease; N18.4 Chronic kidney disease, stage 4 (severe); I50.9 Heart failure, unspecified; E11.42 Type 2 diabetes mellitus with diabetic polyneuropathy; R33.9 Retention of urine, unspecified; M10.9 Gout, unspecified; M25.462 Effusion, left knee; M17.12 Unilateral primary osteoarthritis, left knee; E78.5 Hyperlipidemia, unspecified; G47.33 Obstructive sleep apnea (adult) (pediatric); J44.9 Chronic obstructive pulmonary disease, unspecified; M79.7 Fibromyalgia; F41.8 Other specified anxiety disorders; K21.9 Gastro-esophageal reflux disease without esophagitis; Z20.822 Contact with and (suspected) exposure to COVID-19; Z79.01 Long term (current) use of anticoagulants; Z79.4 Long term (current) use of insulin; Z79.84 Long term (current) use of oral hypoglycemic drugs; Z86.73 Personal history of transient ischemic attack (TIA), and cerebral infarction without residual deficits
CPT/HCPCS: 20611; 36415; 71045; 73560; 76775; 80048; 80053; 80069; 80076; 81001; 82570; 82948; 83735; 83880; 83935; 84300; 84540; 84550; 85025; 85610; 85652; 85730; 86140; 87070; 87075; 87086; 87205; 87426; 89051; 89060; 93005; 93976; 96365; 96375; 96376; 97110; 97116; 97161; 97165; 97530; 97535; 99285; A9270; C9803; G0378; J0702; J1815; J1940; J1956; J2920

== ENCOUNTER 2022-06-22 17:01 | Emergency (ER) | payer MEDICARE, MEDICAID, SELFPAY ==
[2022-06-22] VITALS (9 sets, daily range): BP systolic 129–190; BP diastolic 81–108; PULSE 82–98; RESP 16–20; TEMP 36.9; O2SAT 97–99
--- NOTE | ~2022-06-22 | XR_ITS ---
EXAMINATION: XR chest 1V portable DATE: 06/22/2022 18:24 INDICATION: Cough. Weakness. Nausea and vomiting. TECHNIQUE: A single frontal view of the chest was obtained. COMPARISON: Chest single view 05/04/2022, chest CT 03/11/2022 FINDINGS: Sensitivity is decreased by obesity. There are mild airspace opacities in the lower lung zo randolph. No pleural effusion or pneumothorax. Cardiomegaly is noted. IMPRESSION: 1. Mild airspace opacities in the lower lung zones, consistent with atelectasis versus pneumonia. 2. Cardiomegaly. Reviewed, dictated and finalized at location A.
--- NOTE | ~2022-06-22 | CT_ITS ---
EXAMINATION: CT abdomen pelvis wo con DATE: 06/22/2022 19:21 INDICATION: Nausea and vomiting. TECHNIQUE: Computed tomography (CT) of the abdomen and pelvis was performed without intravenous contr ast. Automated exposure control and iterative reconstruction technique were employed. The dose-length product was 1611.63 mGy-cm. COMPARISON: CT abdomen and pelvis 05/18/2018 FINDINGS: The visualized portions of the lung bases demonstrate mild atelectasis. No pleural effusion . Cardiomegaly is noted. There are coronary artery calcifications. No pericardial effusion. The liver and gallbladder are normal. There are gallstones in the gallbladder, which is distended. The pancrea s and adrenal glands are normal. There are cysts in the kidneys measuring up to 3.4 cm on the right. There is a left inguinal hernia containing fat. There are no dilated loops of bowel. The appendix is not visualized. There is a small sliding hiatal hernia. There are no pathologically enlarged lymph no michele. There is no free intraperitoneal fluid. There is severe lumbar spondylosis. IMPRESSION: 1. Cholelithiasis. Gallbladder distention may be secondary to fasting or acute cholecystitis. Correla te with physical exam. 2. Small sliding hiatal hernia. Reviewed, dictated and finalized at location A. IMPRESSION: 1. Cholelithiasis. Gallbladder distention may be secondary to fasting or acute cholecystitis. Correlate with physical exam. 2. Small sliding hiatal hernia.
[2022-06-22 17:14] LABS: Basophils Percent Auto 0.6 % (0.2-1.2); Eosinophils Absolute Auto 0.1 K/mm3 (0-0.3); Eosinophils Percent Auto 2.6 % (0-4.4); Hematocrit 34.1 % (37.0-47.0); Hemoglobin 10.8 g/dL (12.0-15.0); Immature Granulocyte Absolute 0.01 K/mm3 (0.00-0.031); Immature Granulocyte Percent A 0.2 % (0-0.5); Lymphocytes Percent Auto 22.3 % (18.3-44.2); Mean Corpuscular HGB Conc 31.7 g/dl (32-36); Mean Corpuscular Hemoglobin 31.8 pg (26-34); Mean Corpuscular Volume 100.3 fl (80-100); Monocytes Absolute Auto 0.5 K/mm3 (0.1-0.6); Monocytes Percent Auto 8.4 % (2.6-8.5); Neutrophils Absolute Auto 3.5 K/mm3 (1.3-6.7); Neutrophils Percent Auto 65.9 % (45.5-73.1); Platelet Count Result 299 k/mm3 (150-375); Red Cell Distribution Width 15.6 % (11.5-14.5); White Blood Count 5.4 K/mm3 (4.5-10.0)
[2022-06-22 17:25] LABS: Alanine Aminotransferase 15 U/L (6-35); Albumin Level 3.8 g/dL (3.5-5.1); Alkaline Phosphatase 82 U/L (38-126); Anion Gap 10 mmol/L (8-16); Aspartate Amino Transferase 35 U/L (14-36); Bilirubin,Total 0.5 mg/dL (0.2-1.3); Blood Urea Nitrogen 24 mg/dL (7-17); Calcium 8.7 mg/dL (8.4-10.2); Carbon Dioxide 22 mmol/L (22-30); Chloride 107 mmol/L (98-107); Estimated CRCL calculation 26 ml/min; Estimated Glomerular Filt Rate 23; Glucose 110 mg/dL (65-110); Lipase 62 U/L (23-300); Potassium 4.5 mmol/L (3.4-5.0); Sodium 139 mmol/L (137-145)
--- NOTE | 2022-06-22 18:11 | ECG_ITS ---
Measurements Intervals [place] Rate: 81 P: [place]: 0 QRS: -50 QRSD: 146 T: 66 QT: 409 QTc: 476 Interpretive Statements UNCERTAIN IRREGULAR RHYTHM MARKED LEFT AXIS DEVIATION [QRS AXIS < -30] LEFT BUNDLE BRANCH BLOCK [120+ ms QRS DURATION, 80+ ms Q/S IN V1/V2, 85+ ms R IN I/aVL/V5/V6] ABNORMAL ECG Electronically Signed On 06-23-2022 10:42:57 CDT by Armando Rodriguez M.D.
--- NOTE | 2022-06-22 18:14 | ED.GENADULT ---
HPI - General Adult General Chief complaint: Abdominal Pain Stated complaint: abd pain x 1 week, vomiting Time Seen by Provider: 06/22/22 17:46 Source: patient, RN notes reviewed and old records reviewed Mode of arrival: ambulatory Limitations: no limitations History of Present Illness HPI narrative: This is a 77 year old female with history of CHF, chronic kidney disease, atrial fibrillation, DM who presents for evaluation of nausea and vomiting. Patient has been having intermittent nausea and vomiting. She states this is not occurring daily but she had emesis yesterday and today. She denies abdominal pain . She reports abdominal discomfort caused by feeling of nausea. She also reports body aches, cough, and chills. She lives in Assisted living and she reports having 3 negative covid test. She has not sought medical treatment for her symptoms. She denies chest pain , diarrhea, fever. She reports chronic shortness of breath. Related Data Home Medications Medication Instructions Recorded Confirmed ezetimibe 10 mg tablet 10 mg PO DAILY 12/07/19 06/01/22 fenofibrate 160 mg tablet 160 mg PO DAILY 12/07/19 06/01/22 gabapentin 300 mg capsule 300 mg PO TID 12/07/19 06/01/22 ergocalciferol (vitamin D2) 1,250 1,250 mcg PO WEEKLY 02/22/21 06/01/22 mcg (50,000 unit) capsule glipizide 10 mg tablet 10 mg PO BID 02/22/21 06/01/22 atorvastatin 80 mg tablet 80 mg PO DAILY 07/22/21 06/01/22 sitagliptin 100 mg tablet (Januvia) 100 mg PO DAILY 07/22/21 06/01/22 apixaban 5 mg tablet (Eliquis) 5 mg PO BID 01/07/22 06/01/22 albuterol sulfate 2.5 mg/0.5 mL 2.5 mg inhalation Q6HRT PRN 05/04/22 06/01/22 solution for nebulization shortness of breath or wheezing albuterol sulfate 90 mcg/actuation 1 inh inhalation Q6H PRN Shortness 05/04/22 06/01/22 aerosol inhaler Of Breath diphenhydramine HCl 25 mg capsule 25 mg PO DAILY 05/04/22 06/01/22 (Benadryl) docusate sodium 100 mg capsule 1 cap PO DAILY 05/04/22 06/01/22 insulin lispro 100 unit/mL 5 unit subcut TID 05/04/22 06/01/22 subcutaneous pen (Humalog KwikPen (U-100) Insulin) omeprazole 20 mg capsule,delayed 1 cap PO DAILY 05/04/22 06/01/22 release simethicone 80 mg chewable tablet 80 mg PO Q6H PRN Abdominal 05/04/22 06/01/22 (Gas Relief (simethicone)) Discomfort Allergies Allergy/AdvReac Type Severity Reaction Status Date / Time ceftriaxone Allergy Unknown Unknown Verified 06/01/22 13:45 clindamycin Allergy Unknown Anaphylaxis Verified 06/01/22 13:45 Penicillins Allergy Unknown Hives Verified 06/01/22 13:45 morphine AdvReac Unknown Vomiting Verified 06/01/22 13:45 nitroglycerin AdvReac Unknown Headache Verified 06/01/22 13:45 Review of Systems Review of Systems: All systems reviewed & are unremarkable except as noted in HPI and below Constitutional: Constitutional: Reports chills, Reports fatigue and Denies fever(s) ENT: Reports nasal congestion and Reports sore throat Cardiovascular: Cardiovascular: Denies chest pain, Denies rapid heart rate and Denies radiating jaw, neck or arm pain Respiratory: Respiratory: Reports cough and Reports dyspnea (chronic) Gastrointestinal: Gastrointestinal: Denies abdominal pain, Denies diarrhea, Reports nausea and Reports vomiting Neurologic: Reports headache(s) and Denies focal weakness PMFSH Past Medical History Medical History Anemia of chronic disease Cerebrovascular accident 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 Chronic obstructive pulmonary disease Congestive heart failure History of reduced ejection fraction with improvement in EF to 55% on most recent echo. Diastolic dysfunction also noted. 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 Depression with anxiety Diabetic peripheral neuropathy Dyslipidemia E
[2022-06-22 18:51] LABS: NT Pro B Type Natriuretic Pept 9250 pg/mL (5-100)
[2022-06-22 18:58] LABS: Appearance Urine Cloudy (Clear); Bilirubin Urine 1+ (Negative); Color Urine Yellow (Yellow); Glucose Urine UA Negative (Negative); Ketones Urine Trace mg/dL (Negative); Leukocyte Esterase Ur 1+ LEU/UL (Negative); Nitrate Urine Negative (Negative); Protein Urine 3+ mg/dL (Negative); Specific Grav Ur 1.025 (1.001-1.035); Urobilinogen Urine 0.2 mg/dL (<2.0)
[2022-06-22 19:06] LABS: Bacteria Urine Trace /hpf; Mucus Urine Rare /lpf; Squamous Epithelial Cell Urine Many /hpf (Few); WBC Urine 51-75 /hpf
[2022-06-22 19:11] LABS: Add Urine Microscopic? YES; Blood Urine Trace-Intact (Negative)
[2022-06-22 19:17] LABS: SARS-CoV-2 RNA PCR Negative
--- NOTE | 2022-06-22 19:35 | PC.NURSE ---
IV attempted x3, pt difficult IV stick, 2nd rn to bedside for IV attempt
[2022-06-22] MEDS: ONDANSETRON INJ 4 MG/2 ML VIAL IV PUSH (19:36)
[2022-06-22 20:26] LABS: Influenza A QL RT-PCR Negative (Negative); Influenza B QL RT-PCR Negative (Negative)
[2022-06-22] MEDS: carvediloL 25 MG TABLET PO (20:46)
[2022-06-22] MEDS: AMIODARONE HCL 200 MG TABLET PO (20:47)
== END 2022-06-22 22:29 | disposition home or self-care (01) ==
PROVIDERS: Emergency Medicine; Emergency Provider General Practice; PCP Family Medicine
DX: E11.22 Type 2 diabetes mellitus with diabetic chronic kidney disease (principal); N18.30 Chronic kidney disease, stage 3 unspecified; I13.0 Hypertensive heart and chronic kidney disease with heart failure and stage 1 through stage 4 chronic kidney disease, or unspecified chronic kidney disease; N39.0 Urinary tract infection, site not specified; K80.20 Calculus of gallbladder without cholecystitis without obstruction; R11.2 Nausea with vomiting, unspecified; Z20.822 Contact with and (suspected) exposure to COVID-19; I50.9 Heart failure, unspecified; J44.9 Chronic obstructive pulmonary disease, unspecified; D64.9 Anemia, unspecified; E11.42 Type 2 diabetes mellitus with diabetic polyneuropathy; E78.5 Hyperlipidemia, unspecified; M79.7 Fibromyalgia; K21.9 Gastro-esophageal reflux disease without esophagitis; G47.33 Obstructive sleep apnea (adult) (pediatric); E55.9 Vitamin D deficiency, unspecified; M19.90 Unspecified osteoarthritis, unspecified site; Z87.11 Personal history of peptic ulcer disease; Z86.73 Personal history of transient ischemic attack (TIA), and cerebral infarction without residual deficits; Z90.710 Acquired absence of both cervix and uterus; Z77.22 Contact with and (suspected) exposure to environmental tobacco smoke (acute) (chronic); I51.7 Cardiomegaly; I44.7 Left bundle-branch block, unspecified; R94.31 Abnormal electrocardiogram [ECG] [EKG]; K44.9 Diaphragmatic hernia without obstruction or gangrene; Z79.4 Long term (current) use of insulin; Z79.84 Long term (current) use of oral hypoglycemic drugs
CPT/HCPCS: 36415; 71045; 74176; 80053; 81001; 83690; 83880; 85025; 87086; 87088; 87502; 93005; 96374; 99284; A9270; C9803; J2405; U0003; U0005

== ENCOUNTER 2022-07-07 08:29 | Emergency (ER) | payer MEDICARE, MEDICAID, SELFPAY ==
--- NOTE | ~2022-07-07 | US_ITS ---
EXAMINATION: US abdomen limited DATE: 07/07/2022 10:16 INDICATION: Abdominal pain. Nausea and vomiting. TECHNIQUE: Multiple grayscale and Doppler ultrasound images of the abdomen were obtained. COMPARISON: CT abdomen and pelvis 06/22/2022 FINDINGS: The visualized portions of the head and body of the pancreas are normal. A calcification in the liver is consistent with old granulomatous disease. There is normal flow in main portal vein. Th ere are gallstones in the gallbladder, which is normal in size. No gallbladder wall thickening or son ographic Bnada sign. The common duct is normal and measures 6 mm. The right kidney is normal in size . There is a 3.3 cm cyst in right kidney. IMPRESSION: 1. Cholelithiasis. No evidence of acute cholecystitis. Reviewed, dictated and finalized at location A.
[2022-07-07 08:34] VITALS: BP 153/75; PULSE 102; RESP 19; TEMP 36.3; O2SAT 97
--- NOTE | 2022-07-07 08:41 | ED.NAVMDI ---
HPI - Nausea/Vomiting/Diarrhea General Chief complaint: Nausea/Vomiting/Diarrhea Stated complaint: N/V Time Seen by Provider: 07/07/22 08:41 Source: patient and EMS Mode of arrival: EMS Limitations: no limitations History of Present Illness HPI Narrative: The patient is a 77 year old female with history of CKD, atrial fibrillation, DM, ingestive heart failure, presenting to the emergency department for recurrent abdominal pain, nausea and vomiting. Patient was seen on June 22 at this facility and had a CT scan that was notable for potential cholecystitis, but clinically patient did not exhibit symptoms of this, and ultimately was discharged home on an antibiotic for urinary tract infection per chart review. Patient continues to endorse central abdominal pain, intractable nausea, vomiting, lack of appetite secondary to this pain. Pain is in the central of the abdomen without radiation to the back or flank. She denies any suprapubic pain. Patient denies fever, chills, cough, chest pain or shortness of breath. Patient does report generalized weakness. She denies recent fall or injury. She denies significant abdominal distention, constipation or diarrhea. Related Data Home Medications Medication Instructions Recorded Confirmed ezetimibe 10 mg tablet 10 mg PO DAILY 12/07/19 06/29/22 fenofibrate 160 mg tablet 160 mg PO DAILY 12/07/19 06/29/22 gabapentin 300 mg capsule 300 mg PO TID 12/07/19 06/29/22 ergocalciferol (vitamin D2) 1,250 1,250 mcg PO WEEKLY 02/22/21 06/29/22 mcg (50,000 unit) capsule glipizide 10 mg tablet 10 mg PO BID 02/22/21 06/29/22 atorvastatin 80 mg tablet 80 mg PO DAILY 07/22/21 06/29/22 sitagliptin 100 mg tablet (Januvia) 100 mg PO DAILY 07/22/21 06/29/22 apixaban 5 mg tablet (Eliquis) 5 mg PO BID 01/07/22 06/29/22 albuterol sulfate 2.5 mg/0.5 mL 2.5 mg inhalation Q6HRT PRN 05/04/22 06/29/22 solution for nebulization shortness of breath or wheezing albuterol sulfate 90 mcg/actuation 1 inh inhalation Q6H PRN Shortness 05/04/22 06/29/22 aerosol inhaler Of Breath diphenhydramine HCl 25 mg capsule 25 mg PO DAILY 05/04/22 06/29/22 (Benadryl) docusate sodium 100 mg capsule 1 cap PO DAILY 05/04/22 06/29/22 insulin lispro 100 unit/mL 5 unit subcut TID 05/04/22 06/29/22 subcutaneous pen (Humalog KwikPen (U-100) Insulin) omeprazole 20 mg capsule,delayed 1 cap PO DAILY 05/04/22 06/29/22 release simethicone 80 mg chewable tablet 80 mg PO Q6H PRN Abdominal 05/04/22 06/29/22 (Gas Relief (simethicone)) Discomfort Allergies Allergy/AdvReac Type Severity Reaction Status Date / Time ceftriaxone Allergy Unknown Unknown Verified 07/07/22 08:43 clindamycin Allergy Unknown Anaphylaxis Verified 07/07/22 08:43 Penicillins Allergy Unknown Hives Verified 07/07/22 08:43 morphine AdvReac Unknown Vomiting Verified 07/07/22 08:43 nitroglycerin AdvReac Unknown Headache Verified 07/07/22 08:43 Review of Systems Review of Systems: CONSTITUTIONAL: Denies fever, chills, or sweats. EYES: Denies visual changes, redness, or discharge. ENT: Denies rhinorrhea, congestion, sore throat, or otalgia. CARDIOVASCULAR: Denies chest pain, palpitations, or edema. RESPIRATORY: Denies cough or dyspnea. GASTROINTESTINAL: Reports abdominal pain, nausea and vomiting GENITOURINARY: Denies dysuria or hematuria. SKIN: Denies rash or itching. MUSCULOSKELETAL: Denies back pain, joint pain, or myalgia. NEUROLOGIC: Denies headache, numbness, or weakness. [facility] Past Medical History Medical History Anemia of chronic disease Cerebrovascular accident 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 Chronic obstructive pulmonary disease Congestive heart failure History of reduced ejection fraction with improvement in EF to 55% on most recent echo. Diastolic dysfunction also noted. Coronary artery anomaly Anomalous left marino
[2022-07-07] MEDS: SODIUM CHLORIDE 0.9% IV 1,000 ML 999 ML IV CONT ×2 (08:52→14:23)
[2022-07-07 08:57] LABS: Glucose Point of Care 158 mg/dl (65-105)
[2022-07-07 09:24] LABS: Basophils Percent Auto 0.7 % (0.2-1.2); Eosinophils Absolute Auto 0.1 K/mm3 (0-0.3); Eosinophils Percent Auto 2.1 % (0-4.4); Hematocrit 36.8 % (37.0-47.0); Hemoglobin 11.4 g/dL (12.0-15.0); Immature Granulocyte Absolute 0.01 K/mm3 (0.00-0.031); Immature Granulocyte Percent A 0.2 % (0-0.5); Lymphocytes Absolute Auto 1.15 K/mm3 (0.9-3.2); Lymphocytes Percent Auto 21.5 % (18.3-44.2); Mean Corpuscular Hemoglobin 31.1 pg (26-34); Mean Corpuscular Volume 100.3 fl (80-100); Mean Platelet Volume 9.1 fl (7.4-10.4); Monocytes Absolute Auto 0.5 K/mm3 (0.1-0.6); Monocytes Percent Auto 8.6 % (2.6-8.5); Neutrophils Absolute Auto 3.6 K/mm3 (1.3-6.7); Neutrophils Percent Auto 66.9 % (45.5-73.1); Platelet Count Result 264 k/mm3 (150-375); Red Blood Count 3.67 M/mm3 (4.2-5.4); Red Cell Distribution Width 15.4 % (11.5-14.5); White Blood Count 5.4 K/mm3 (4.5-10.0)
[2022-07-07] MEDS: ONDANSETRON INJ 4 MG/2 ML VIAL IV PUSH (09:30)
[2022-07-07] MEDS: MORPHINE SULFATE (*CRX) 4 MG/ML INJ IV PUSH (09:30)
[2022-07-07 09:36] LABS: Alanine Aminotransferase 13 U/L (6-35); Albumin Level 3.6 g/dL (3.5-5.1); Alkaline Phosphatase 96 U/L (38-126); Anion Gap 5 mmol/L (8-16); Aspartate Amino Transferase 23 U/L (14-36); Bilirubin,Total 0.3 mg/dL (0.2-1.3); Blood Urea Nitrogen 29 mg/dL (7-17); Calcium 8.5 mg/dL (8.4-10.2); Carbon Dioxide 18 mmol/L (22-30); Chloride 112 mmol/L (98-107); Estimated CRCL calculation 27 ml/min; Estimated Glomerular Filt Rate 24; Glucose 150 mg/dL (65-110); Lipase 108 U/L (23-300); Sodium 135 mmol/L (137-145)
[2022-07-07 11:32] LABS: Appearance Urine Cloudy (Clear); Bilirubin Urine 1+ (Negative); Blood Urine Negative (Negative); Color Urine Yellow (Yellow); Glucose Urine UA Negative (Negative); Ketones Urine Negative (Negative); Leukocyte Esterase Ur Negative LEU/UL (Negative); Nitrate Urine Negative (Negative); Protein Urine 3+ mg/dL (Negative); Specific Grav Ur >= 1.030 (1.001-1.035); Urobilinogen Urine 0.2 mg/dL (<2.0); pH Urine 5.5 (5.0-9.0)
[2022-07-07 11:45] VITALS: BP 160/97; PULSE 102; RESP 18; O2SAT 98
[2022-07-07 12:02] LABS: Add Urine Microscopic? YES; Amorphous Sediment Urine Moderate; Bacteria Urine 1+ /hpf; Mucus Urine Rare /lpf; Squamous Epithelial Cell Urine Rare /hpf (Few); WBC Urine 0-3 /hpf
[2022-07-07 14:22] VITALS: BP 161/92; PULSE 97; RESP 16; O2SAT 98
[2022-07-07 14:45] LABS: Anion Gap 12 mmol/L (8-16); Blood Urea Nitrogen 29 mg/dL (7-17); Calcium 8.5 mg/dL (8.4-10.2); Carbon Dioxide 20 mmol/L (22-30); Chloride 110 mmol/L (98-107); Estimated CRCL calculation 28 ml/min; Estimated Glomerular Filt Rate 26; Glucose 134 mg/dL (65-110); Potassium 3.9 mmol/L (3.4-5.0); Sodium 142 mmol/L (137-145)
[2022-07-07 15:49] VITALS: BP 165/97; PULSE 101; RESP 18; O2SAT 99
== END 2022-07-07 16:04 ==
PROVIDERS: Emergency Provider Emergency Medicine; PCP Family Medicine
DX: K52.9 Noninfective gastroenteritis and colitis, unspecified (principal); E86.0 Dehydration; E11.22 Type 2 diabetes mellitus with diabetic chronic kidney disease; I13.0 Hypertensive heart and chronic kidney disease with heart failure and stage 1 through stage 4 chronic kidney disease, or unspecified chronic kidney disease; N18.30 Chronic kidney disease, stage 3 unspecified; I50.9 Heart failure, unspecified; J44.9 Chronic obstructive pulmonary disease, unspecified; E11.42 Type 2 diabetes mellitus with diabetic polyneuropathy; E78.5 Hyperlipidemia, unspecified; M79.7 Fibromyalgia; K21.9 Gastro-esophageal reflux disease without esophagitis; G47.33 Obstructive sleep apnea (adult) (pediatric); M19.90 Unspecified osteoarthritis, unspecified site; E55.9 Vitamin D deficiency, unspecified; Z87.11 Personal history of peptic ulcer disease; Z86.73 Personal history of transient ischemic attack (TIA), and cerebral infarction without residual deficits; Z79.01 Long term (current) use of anticoagulants; Z79.84 Long term (current) use of oral hypoglycemic drugs; Z79.4 Long term (current) use of insulin; Z90.710 Acquired absence of both cervix and uterus; K80.20 Calculus of gallbladder without cholecystitis without obstruction
CPT/HCPCS: 36415; 76705; 80048; 80053; 81001; 82948; 83690; 85025; 96361; 96374; 96375; 99284; J2270; J2405; J7030

== ENCOUNTER 2022-07-30 11:04 | Emergency (ER) | payer MEDICARE, MEDICAID, SELFPAY ==
[2022-07-30] VITALS (18 sets, daily range): BP systolic 104–135; BP diastolic 34–75; PULSE 63–93; RESP 11–24; TEMP 36.4; O2SAT 93–100
--- NOTE | ~2022-07-30 | XR_ITS ---
XR chest 2V DATE: 07/30/2022 11:54 INDICATION: Shortness of breath, dizziness TECHNIQUE: AP and lateral views COMPARISON: Portable AP chest on 06/22/2022 FINDINGS: Cardiomegaly. Aortic unfolding. No pulmonary infiltrate or consolidation, pleural effusion or pulmonary vascular congestion or pneumo thorax is detected. Osteopenia. IMPRESSION: Cardiomegaly Reviewed, dictated and finalized at location B. IMPRESSION: Cardiomegaly
--- NOTE | 2022-07-30 11:13 | ECG_ITS ---
Measurements Intervals [place] Rate: 65 P: [place]: 0 QRS: -44 QRSD: 138 T: 8 QT: 420 QTc: 438 Interpretive Statements SINUS RHYTHM WITH SINUS ARRHYTHMIA ATRIAL AND VENTRICULAR PREMATURE COMPLEXES LEFT AXIS DEVIATION LEFT BUNDLE BRANCH BLOCK BASELINE ARTIFACT- I, II, III, AVR, AVL ,AVF ABNORMAL ECG COMPARED TO ECG 06/22/2022 18:40:41 NO SIGNIFICANT CHANGES Electronically Signed On 07-30-2022 13:21:39 CDT by Chau Vega D.O.
[2022-07-30 11:48] LABS: Basophils Percent Auto 0.5 % (0.2-1.2); Eosinophils Absolute Auto 0.3 K/mm3 (0-0.3); Eosinophils Percent Auto 4.5 % (0-4.4); Hematocrit 31.5 % (37.0-47.0); Hemoglobin 9.7 g/dL (12.0-15.0); Immature Granulocyte Absolute 0.02 K/mm3 (0.00-0.031); Immature Granulocyte Percent A 0.3 % (0-0.5); Lymphocytes Absolute Auto 1.13 K/mm3 (0.9-3.2); Lymphocytes Percent Auto 18.8 % (18.3-44.2); Mean Corpuscular HGB Conc 30.8 g/dl (32-36); Mean Corpuscular Hemoglobin 31.2 pg (26-34); Mean Corpuscular Volume 101.3 fl (80-100); Mean Platelet Volume 9.7 fl (7.4-10.4); Monocytes Absolute Auto 0.5 K/mm3 (0.1-0.6); Neutrophils Percent Auto 66.9 % (45.5-73.1); Platelet Count Result 254 k/mm3 (150-375); Red Blood Count 3.11 M/mm3 (4.2-5.4); Red Cell Distribution Width 15.2 % (11.5-14.5)
[2022-07-30 12:32] LABS: Anion Gap 5 mmol/L (8-16); Blood Urea Nitrogen 49 mg/dL (7-17); Calcium 8.3 mg/dL (8.4-10.2); Carbon Dioxide 26 mmol/L (22-30); Chloride 108 mmol/L (98-107); Estimated CRCL calculation 21 ml/min; Estimated Glomerular Filt Rate 19; Glucose 111 mg/dL (65-110); Potassium 4.9 mmol/L (3.4-5.0); Sodium 139 mmol/L (137-145)
[2022-07-30] MEDS: SODIUM CHLORIDE 0.9% IV 1,000 ML 999 ML IV CONT (13:13)
--- NOTE | 2022-07-30 13:19 | ED.SOB ---
HPI - SOB/Dyspnea General Chief Complaint: Shortness of Breath/Dyspnea Stated Complaint: low o2 level (60's ra), 80 on 6LNC, now on NRB History of Present Illness HPI Narrative: Patient is a 77-year-old female who presents ER with lightheadedness. Ongoing for a day. Was evaluated by staff where she lives and was told that her oxygen level was in the 60s. She was placed on nasal cannula O2 my time she arrived here she was on nonrebreather due to reported hypoxia. Currently patient is requiring no oxygen and is satting in the mid 90s. She has no chest pain or chest pressure. She does not feel short of breath. She denies any cough orthopnea. No new lower extremity swelling. She has no additional complaints outside of her dizziness. Related Data Home Medications Medication Instructions Recorded Confirmed ezetimibe 10 mg tablet 10 mg PO DAILY 12/07/19 06/29/22 fenofibrate 160 mg tablet 160 mg PO DAILY 12/07/19 06/29/22 gabapentin 300 mg capsule 300 mg PO TID 12/07/19 06/29/22 ergocalciferol (vitamin D2) 1,250 1,250 mcg PO WEEKLY 02/22/21 06/29/22 mcg (50,000 unit) capsule glipizide 10 mg tablet 10 mg PO BID 02/22/21 06/29/22 atorvastatin 80 mg tablet 80 mg PO DAILY 07/22/21 06/29/22 sitagliptin 100 mg tablet (Januvia) 100 mg PO DAILY 07/22/21 06/29/22 apixaban 5 mg tablet (Eliquis) 5 mg PO BID 01/07/22 06/29/22 albuterol sulfate 2.5 mg/0.5 mL 2.5 mg inhalation Q6HRT PRN 05/04/22 06/29/22 solution for nebulization shortness of breath or wheezing albuterol sulfate 90 mcg/actuation 1 inh inhalation Q6H PRN Shortness 05/04/22 06/29/22 aerosol inhaler Of Breath diphenhydramine HCl 25 mg capsule 25 mg PO DAILY 05/04/22 06/29/22 (Benadryl) docusate sodium 100 mg capsule 1 cap PO DAILY 05/04/22 06/29/22 insulin lispro 100 unit/mL 5 unit subcut TID 05/04/22 06/29/22 subcutaneous pen (Humalog KwikPen (U-100) Insulin) omeprazole 20 mg capsule,delayed 1 cap PO DAILY 05/04/22 06/29/22 release simethicone 80 mg chewable tablet 80 mg PO Q6H PRN Abdominal 05/04/22 06/29/22 (Gas Relief (simethicone)) Discomfort Allergies Allergy/AdvReac Type Severity Reaction Status Date / Time ceftriaxone Allergy Unknown Unknown Verified 07/30/22 11:13 clindamycin Allergy Unknown Anaphylaxis Verified 07/30/22 11:13 Penicillins Allergy Unknown Hives Verified 07/30/22 11:13 morphine AdvReac Unknown Vomiting Verified 07/30/22 11:13 nitroglycerin AdvReac Unknown Headache Verified 07/30/22 11:13 Review of Systems Review of Systems: All systems reviewed & are unremarkable except as noted in HPI and below Constitutional: Constitutional: Denies chills and Denies fever(s) ENT: Reports dizziness, Denies nasal congestion and Denies sore throat Cardiovascular: Cardiovascular: Denies chest pain, Denies rapid heart rate and Denies radiating jaw, neck or arm pain Respiratory: Respiratory: Denies cough and Denies dyspnea Gastrointestinal: Gastrointestinal: Denies abdominal pain, Denies nausea and Denies vomiting Genitourinary: Genitourinary: Denies nocturia and Denies dysuria PMFSH Past Medical History Medical History Anemia of chronic disease Cerebrovascular accident 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 Chronic obstructive pulmonary disease Congestive heart failure History of reduced ejection fraction with improvement in EF to 55% on most recent echo. Diastolic dysfunction also noted. 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 Depression with anxiety Diabetic peripheral neuropathy Dyslipidemia Essential hypertension Fibromyalgia Gastroesophageal reflux disease History of peptic ulcer Hypersomnia Insulin dependent type 2 diabetes mellitus Obstructive sleep apnea on CPAP Osteoarthritis Stage III chronic kidney disease Ba
--- NOTE | 2022-07-30 14:59 | PC.NURSE ---
Updated [facility]. Pt sat 98 % RA. Able to ambulate to RR with 1 person assist due to mobility not due to Oxygen
--- NOTE | 2022-07-30 16:43 | PC.NURSE ---
Spoke with CORA [place]. Let her know pt was returning home via POV. Johanny will call guest relations coordinator RN at [facility] if she has any additional questions.
== END 2022-07-30 16:44 ==
PROVIDERS: Emergency Provider Emergency Medicine; PCP Family Medicine
DX: E86.0 Dehydration (principal); E11.22 Type 2 diabetes mellitus with diabetic chronic kidney disease; I13.0 Hypertensive heart and chronic kidney disease with heart failure and stage 1 through stage 4 chronic kidney disease, or unspecified chronic kidney disease; N18.30 Chronic kidney disease, stage 3 unspecified; I50.9 Heart failure, unspecified; J44.9 Chronic obstructive pulmonary disease, unspecified; E11.42 Type 2 diabetes mellitus with diabetic polyneuropathy; E78.5 Hyperlipidemia, unspecified; M79.7 Fibromyalgia; M19.90 Unspecified osteoarthritis, unspecified site; E55.9 Vitamin D deficiency, unspecified; G47.33 Obstructive sleep apnea (adult) (pediatric); Z86.711 Personal history of pulmonary embolism; Z86.73 Personal history of transient ischemic attack (TIA), and cerebral infarction without residual deficits; Z79.4 Long term (current) use of insulin; Z79.84 Long term (current) use of oral hypoglycemic drugs; Z79.01 Long term (current) use of anticoagulants; Z90.710 Acquired absence of both cervix and uterus; Z77.22 Contact with and (suspected) exposure to environmental tobacco smoke (acute) (chronic); I51.7 Cardiomegaly; I49.1 Atrial premature depolarization; I49.3 Ventricular premature depolarization; I44.7 Left bundle-branch block, unspecified
CPT/HCPCS: 36415; 71046; 80048; 85025; 93005; 96360; 96361; 99283; J7030

== ENCOUNTER 2023-03-27 10:11 | Observation (INO) | payer MEDICARE, MEDICAID, SELFPAY ==
[2023-03-27] VITALS (32 sets, daily range): BP systolic 118–184; BP diastolic 86–112; PULSE 75–117; RESP 15–28; TEMP 35.7–36.7; O2SAT 92–99; BMI 38.0
--- NOTE | ~2023-03-27 | XR_ITS ---
EXAMINATION: XR chest 2V DATE: 03/27/2023 11:41 INDICATION: Shortness of breath TECHNIQUE: AP and lateral views of the chest are obtained. COMPARISON: 07/30/2022 FINDINGS: There are minimal airspace opacities of the lung bases. No pleural effusion or pneumothorax . The cardiomediastinal silhouette is normal. There is moderate thoracic spondylosis. IMPRESSION: 1. Bibasilar airspace opacities, consistent with atelectasis versus pneumonia. Reviewed, dictated and finalized at location A.
--- NOTE | ~2023-03-27 | CT_ITS ---
EXAMINATION: CT brain wo con DATE: 03/30/2023 19:04 INDICATION: dizziness . TECHNIQUE: Computed tomography (CT) of the head was performed without intravenous contrast. The mA wa s adjusted according to patient size. Iterative reconstruction technique was employed. The dose-lengt h product was 605.33 mGy-cm. COMPARISON: 07/22/2021. FINDINGS: No acute intracranial hemorrhage or extra-axial fluid collection. No hydrocephalus, mass, or herniation. No acute ischemic infarct. Unremarkable dural venous sinus attenuation. No acute osseous abnormality. Dependent mucosal thickening in the bilateral inferior maxillary, right frontal, and right anterior e thmoid air cells, the remaining aerated spaces are clear. Mild atrophy and chronic white matter change. Atherosclerotic intracranial calcification. Left lens r eplacement. Old bilateral basal ganglia lacunar infarcts. IMPRESSION: No acute intracranial process. Reviewed, dictated and finalized at location K.
--- NOTE | 2023-03-27 10:29 | ECG_ITS ---
Measurements Intervals [place] Rate: 101 P: HI: 0 QRS: -50 QRSD: 138 T: 80 QT: 375 QTc: 488 Interpretive Statements ATRIAL FLUTTER/TACHYCARDIA WITH VARIABLE BLOCK FREQUENT VENTRICULAR PREMATURE COMPLEXES INTRAVENTRICULAR CONDUCTION DELAY CANNOT RULE OUT SEPTAL INFARCT, AGE INDETERMINATE BORDERLINE ST-T WAVE ABNORMALITY- HIGH LATERAL LEADS ABNORMAL ECG COMPARED TO ECG 07/30/2022 11:09:42 HEART RATE HAS DECREASED Electronically Signed On 03-27-2023 13:04:49 CDT by Chau Vega D.O.
[2023-03-27 10:43] LABS: Basophils Percent Auto 0.4 % (0.2-1.2); Eosinophils Absolute Auto 0.1 K/mm3 (0-0.3); Eosinophils Percent Auto 0.8 % (0-4.4); Hematocrit 34.1 % (37.0-47.0); Hemoglobin 10.9 g/dL (12.0-15.0); Immature Granulocyte Absolute 0.04 K/mm3 (0.00-0.031); Immature Granulocyte Percent A 0.4 % (0-0.5); Lymphocytes Absolute Auto 1.94 K/mm3 (0.9-3.2); Lymphocytes Percent Auto 19.6 % (18.3-44.2); Mean Corpuscular Hemoglobin 31.5 pg (26-34); Mean Corpuscular Volume 98.6 fl (80-100); Mean Platelet Volume 9.2 fl (7.4-10.4); Monocytes Absolute Auto 0.6 K/mm3 (0.1-0.6); Monocytes Percent Auto 6.2 % (2.6-8.5); Neutrophils Absolute Auto 7.2 K/mm3 (1.3-6.7); Neutrophils Percent Auto 72.6 % (45.5-73.1); Platelet Count Result 349 k/mm3 (150-375); Red Blood Count 3.46 M/mm3 (4.2-5.4); Red Cell Distribution Width 15.1 % (11.5-14.5); White Blood Count 9.9 K/mm3 (4.5-10.0)
[2023-03-27 10:52] LABS: Alanine Aminotransferase 17 U/L (6-35); Albumin Level 3.4 g/dL (3.5-5.1); Alkaline Phosphatase 162 U/L (38-126); Anion Gap 7 mmol/L (8-16); Aspartate Amino Transferase 23 U/L (14-36); Bilirubin,Total 0.7 mg/dL (0.2-1.3); Blood Urea Nitrogen 27 mg/dL (7-17); Calcium 8.7 mg/dL (8.4-10.2); Carbon Dioxide 26 mmol/L (22-30); Chloride 107 mmol/L (98-107); Estimated CRCL calculation 36 ml/min; Estimated Glomerular Filt Rate 34; Glucose 182 mg/dL (65-110); Potassium 4.1 mmol/L (3.4-5.0); Sodium 140 mmol/L (137-145)
--- NOTE | 2023-03-27 10:52 | ED.SOB ---
HPI - SOB/Dyspnea General Chief Complaint: Shortness of Breath/Dyspnea Stated Complaint: SOB x 3 days Time Seen by Provider: 03/27/23 10:11 Source: patient, family (daughter is at bedside), EMS, RN notes reviewed and old records reviewed Mode of arrival: EMS Limitations: no limitations History of Present Illness HPI Narrative: This is a 77 year old female with history of multiple medical problems including COPD, chronic kidney disease, DM, afib who presents for evaluation of cough and shortness of breath. Patient reports she thinks she has pneumonia. She reports productive cough with green sputum for 3 days. She also reports shortness of breath. She reports mid sternal chest pain but she is unable to describe what makes it better or worse. She denies having chest pain now. She does report decreased appetite with nausea and dry heaves . She denies diarrhea. She denies fever or chills but she feels unwell. Patient states she used to live at [facility] but she moved in with her daughter at the beginning of the month. She states there has been mix up with her medications so she has not been taking since discharge. She was on antibiotics in February for UTI. PAtient was 99% on room air. Her daughter states she had a cold and then patient developed cold symptoms. Related Data Home Medications Medication Instructions Recorded Confirmed ezetimibe 10 mg tablet 10 mg PO DAILY 12/07/19 03/27/23 fenofibrate 160 mg tablet 160 mg PO DAILY 12/07/19 03/27/23 gabapentin 300 mg capsule 300 mg PO TID 12/07/19 03/27/23 ergocalciferol (vitamin D2) 1,250 1,250 mcg PO WEEKLY 02/22/21 03/27/23 mcg (50,000 unit) capsule glipizide 10 mg tablet 10 mg PO BID 02/22/21 03/27/23 atorvastatin 80 mg tablet 80 mg PO DAILY 07/22/21 03/27/23 sitagliptin phosphate 100 mg 100 mg PO DAILY 07/22/21 03/27/23 tablet (Januvia) apixaban 5 mg tablet (Eliquis) 5 mg PO BID 01/07/22 03/27/23 diphenhydramine HCl 25 mg capsule 25 mg PO DAILY PRN allergies 05/04/22 03/27/23 (Benadryl) docusate sodium 100 mg capsule 1 cap PO DAILY 05/04/22 03/27/23 insulin lispro 100 unit/mL 5 unit subcut TID 05/04/22 03/27/23 subcutaneous pen (Humalog KwikPen (U-100) Insulin) omeprazole 20 mg capsule,delayed 1 cap PO DAILY 05/04/22 03/27/23 release simethicone 80 mg chewable tablet 80 mg PO Q6H PRN Abdominal 05/04/22 03/27/23 (Gas Relief (simethicone)) Discomfort dicyclomine 10 mg capsule 10 mg PO TID PRN Abdominal 03/27/23 03/27/23 Discomfort furosemide 20 mg tablet 40 mg PO QAM 03/27/23 03/27/23 insulin detemir U-100 100 unit/mL 30 unit subcut HS 03/27/23 03/27/23 subcutaneous solution (Levemir U-100 Insulin) Allergies Allergy/AdvReac Type Severity Reaction Status Date / Time ceftriaxone Allergy Unknown Unknown Verified 03/15/23 12:00 clindamycin Allergy Unknown Anaphylaxis Verified 03/15/23 12:00 Penicillins Allergy Unknown Hives Verified 03/15/23 12:00 morphine AdvReac Unknown Vomiting Verified 03/15/23 12:00 nitroglycerin AdvReac Unknown Headache Verified 03/15/23 12:00 Review of Systems Constitutional: Constitutional: Denies weakness Cardiovascular: Cardiovascular: Reports chest pain, Denies syncope, Denies rapid heart rate, Denies irregular heart rhythm, Denies leg edema and Reports dyspnea Respiratory: Respiratory: Denies chest congestion, Reports cough, Denies hemoptysis, Reports excessive phlegm production and Reports dyspnea Gastrointestinal: Gastrointestinal: Denies abdominal pain, Denies hematochezia, Denies diarrhea, Reports nausea and Reports vomiting Genitourinary: Genitourinary: Denies hematuria and Denies dysuria Musculoskeletal: Musculoskeletal: Denies joint swelling, Denies loss of height and Denies muscle weakness Neurologic: Denies syncope, Denies focal weakness and Denies weakness PMFSH Past Medical History Medical History (Updated 03/27/23 @ 20:32 by Anita Hughes MD) Anemia of chronic disease Cerebrovascular accident Ol
[2023-03-27 10:54] LABS: INR 1.1; Partial Thromboplastin Time 29.2 SECONDS (22.3-36.8); Prothrombin Time 14.5 Seconds (11.1-14.7)
[2023-03-27 11:11] LABS: Lactic Acid Reflex 1.6 mmol/L (0.7-2.0)
[2023-03-27 11:13] LABS: NT Pro B Type Natriuretic Pept 23400 pg/mL (19.9-100)
[2023-03-27 11:18] LABS: Influenza A QL RT-PCR Negative (Negative); Influenza B QL RT-PCR Negative (Negative); SARS-CoV-2 RNA PCR Negative (Negative)
--- NOTE | 2023-03-27 11:26 | PCRCNOTE ---
Pt refused ABG'S Ilia Gomez RN aware
[2023-03-27] MEDS: FUROSEMIDE INJ 40 MG/4 ML VIAL IV PUSH ×2 (13:04→20:23)
[2023-03-27] MEDS: ACETAMINOPHEN 325 MG TABLET 650 MG PO (13:10)
--- NOTE | 2023-03-27 14:00 | PM.IMHP ---
H&P: HPI History of Present Illness Date/Time: 03/27/23 14:30 Chief Complaint: Shortness of breath. Narrative: This is a pleasant 77-year-old female with multiple medical problems including congestive heart failure, hypertension, dyslipidemia, diabetes, chronic kidney disease, anemia, sleep apnea, and several other comorbidities who presented to the emergency department earlier today via EMS from home for evaluation of shortness of breath. The patient believes she has pneumonia as she has not been feeling well for 3 days with cough productive of green phlegm, poor appetite, nausea, dry heaves, and shortness of breath. She lives with her daughter and grandchildren and they have all had similar symptoms. She also reports occasional midsternal chest tightness which seems to occur when she is feeling short of breath. She denies fever, sore throat, exertional chest pain, pleuritic pain, edema, vomiting, and diarrhea. It should be noted that she moved in with her daughter earlier this month and prior to that she was at [facility]. She has been out of some of her medications since she was discharged from that facility but she cannot recall which medication she has not been taking the last week or so. She is supposed to wear BiPAP at nighttime but has not yet on packed that and it does not sound as though she uses it reliably. She was afebrile on arrival to the emergency department. Blood pressures have been running in the 150s to 170s systolic. CMP and CBC are reassuring and similar to her baseline labs. Troponin was slightly elevated 0.050 in her proBNP was [id number]. She tested negative for influenza and COVID. Chest x-ray showed bibasilar airspace opacities consistent with atelectasis versus pneumonia. EKG showed atrial flutter/tachycardia with variable block, intraventricular conduction delay, borderline ST T-wave abnormalities in the high lateral leads, and age-indeterminate septal infarct. She is being admitted in this setting for further treatment and evaluation. Review of Systems Review of Systems: Twelve systems were reviewed and are negative except for as per HPI. FOR[facility]LY [facility], [facility] Past Medical History Medical History (Updated 03/27/23 @ 22:49 by Rubi Crisostomo PA-C) Anemia of chronic disease Cerebrovascular accident 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 Chronic anticoagulation Chronic obstructive pulmonary disease Congestive heart failure History of reduced ejection fraction with improvement in EF to 55% on most recent echo. Diastolic dysfunction also noted. 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 Depression with anxiety Diabetic peripheral neuropathy Dyslipidemia Elevated troponin Essential hypertension Fibromyalgia Gastroesophageal reflux disease History of peptic ulcer Hypersomnia Insulin dependent type 2 diabetes mellitus Obstructive sleep apnea on CPAP Osteoarthritis Paroxysmal atrial flutter Stage III chronic kidney disease Baseline creatinine ranges between 1.3 and 1.60. Vitamin D deficiency Surgical History Surgical History (Updated 03/27/23 @ 22:40 by Rubi Crisostomo PA-C) History of appendectomy History of cardiac catheterization (07/2013) Normal coronaries although anomalous left coronary artery arising from the right ostium was noted. History of hysterectomy (1979) History of left breast biopsy Benign pathology. Family History Family History Father Malignant neoplasm of prostate Heart disease Mother Esophageal cancer Sibling Diabetes mellitus Daughter Alcoholism Social History Social History (Updated 03/27/23 @ 14:07 by Rubi Crisostomo PA-C) Social History: Surrogate medical decision maker: Mikki Herrera, daughter. Code status: Full code. Smoking status: Never smo
[2023-03-27] MEDS: carvediloL 25 MG TABLET PO ×2 (14:27→23:30)
[2023-03-27 16:02] LABS: Glucose Point of Care 180 mg/dl (65-105)
[2023-03-27 16:18] LABS: CRP 1.4 mg/dL (<1.0); Magnesium 2.2 mg/dL (1.6-2.3)
[2023-03-27 16:38] LABS: Troponin I 0.044 ng/mL (0.000-0.034)
[2023-03-27 19:58] LABS: Troponin I 0.047 ng/mL (0.000-0.034)
[2023-03-27 20:46] LABS: Glucose Point of Care 183 mg/dl (65-105)
[2023-03-27] MEDS: LIDOCAINE HCL 1% LOCAL INJ 2 ML AMPUL 5 ML INFILTRATE (22:01)
[2023-03-27] MEDS: SALINE LOCK FLUSH 10 ML IV PUSH (22:04)
[2023-03-27 22:34] LABS: Procalcitonin 0.2 ng/mL
[2023-03-27] MEDS: INSULIN GLARGINE (*BKC) 100 UNITS/ML 30 UNITS SUB-Q (23:29)
[2023-03-27] MEDS: APIXABAN 5 MG TABLET PO (23:30)
[2023-03-27] MEDS: GABAPENTIN 300 MG CAPSULE PO (23:30)
[2023-03-27] MEDS: HYDROcodone/acetaminophen (*CRX) 10-325 MG TABLET 1 TAB PO (23:31)
[2023-03-27] MEDS: MELATONIN 5 MG TABLET PO (23:36)
[2023-03-28] VITALS (19 sets, daily range): BP systolic 106–166; BP diastolic 47–83; PULSE 61–83; RESP 16–22; TEMP 35.8–36.6; O2SAT 92–98
[2023-03-28 05:58] LABS: Basophils Percent Auto 0.4 % (0.2-1.2); Eosinophils Absolute Auto 0.2 K/mm3 (0-0.3); Eosinophils Percent Auto 2.6 % (0-4.4); Hematocrit 28.8 % (37.0-47.0); Hemoglobin 9.1 g/dL (12.0-15.0); Immature Granulocyte Absolute 0.03 K/mm3 (0.00-0.031); Immature Granulocyte Percent A 0.4 % (0-0.5); Lymphocytes Absolute Auto 1.58 K/mm3 (0.9-3.2); Lymphocytes Percent Auto 21.9 % (18.3-44.2); Mean Corpuscular HGB Conc 31.6 g/dl (32-36); Mean Corpuscular Hemoglobin 31.6 pg (26-34); Mean Platelet Volume 9.2 fl (7.4-10.4); Monocytes Absolute Auto 0.7 K/mm3 (0.1-0.6); Neutrophils Absolute Auto 4.7 K/mm3 (1.3-6.7); Neutrophils Percent Auto 65.7 % (45.5-73.1); Platelet Count Result 280 k/mm3 (150-375); Red Blood Count 2.88 M/mm3 (4.2-5.4); Red Cell Distribution Width 15.3 % (11.5-14.5); White Blood Count 7.2 K/mm3 (4.5-10.0)
[2023-03-28 06:06] LABS: Alanine Aminotransferase 13 U/L (6-35); Albumin Level 2.8 g/dL (3.5-5.1); Alkaline Phosphatase 120 U/L (38-126); Anion Gap 1 mmol/L (8-16); Aspartate Amino Transferase 19 U/L (14-36); Bilirubin,Total 0.4 mg/dL (0.2-1.3); Blood Urea Nitrogen 29 mg/dL (7-17); Calcium 8.2 mg/dL (8.4-10.2); Carbon Dioxide 31 mmol/L (22-30); Chloride 108 mmol/L (98-107); Estimated CRCL calculation 30 ml/min; Estimated Glomerular Filt Rate 27; Glucose 123 mg/dL (65-110); Potassium 4.4 mmol/L (3.4-5.0); Sodium 140 mmol/L (137-145)
[2023-03-28] MEDS: SALINE LOCK FLUSH 10 ML IV PUSH ×3 (06:50→20:11)
[2023-03-28 08:01] LABS: Glucose Point of Care 119 mg/dl (65-105)
[2023-03-28] MEDS: allopurinoL 50 MG TABLET PO (08:21)
[2023-03-28] MEDS: APIXABAN 5 MG TABLET PO ×2 (08:21→20:10)
[2023-03-28] MEDS: TAMSULOSIN HCL 0.4 MG CAPSULE PO (08:22)
[2023-03-28] MEDS: glipiZIDE 5 MG TABLET 10 MG PO ×2 (08:22→16:21)
[2023-03-28] MEDS: EZETIMIBE 10 MG TABLET PO (08:22)
[2023-03-28] MEDS: HYDROcodone/acetaminophen (*CRX) 10-325 MG TABLET 1 TAB PO ×3 (08:22→22:51)
[2023-03-28] MEDS: AMIODARONE HCL 200 MG TABLET PO (08:23)
[2023-03-28] MEDS: ATORVASTATIN 40 MG TABLET 80 MG PO (08:23)
[2023-03-28] MEDS: DOXYCYCLINE HYCLATE 100 MG TABLET PO ×2 (08:23→20:10)
[2023-03-28] MEDS: FUROSEMIDE INJ 40 MG/4 ML VIAL IV PUSH ×2 (08:24→20:10)
[2023-03-28] MEDS: PANTOPRAZOLE 40 MG TABLET PO (08:24)
[2023-03-28] MEDS: GABAPENTIN 300 MG CAPSULE PO ×3 (08:24→16:21)
[2023-03-28] MEDS: INSULIN ASPART (*BKC) 100 UNITS/ML SUB-Q (08:24)
[2023-03-28] MEDS: carvediloL 25 MG TABLET PO ×2 (08:25→20:10)
[2023-03-28] MEDS: DOCUSATE SODIUM 100 MG CAPSULE PO (08:25)
--- NOTE | 2023-03-28 11:04 | PM.IMPN ---
Progress Note: A&P Assessment and Plan (1) Shortness of breath: Code(s): R06.02 - Shortness of breath Status: Acute Assessment and Plan: Patient presented with shortness of breath and cough the last several days and she believe she has pneumonia. Family members have had similar symptoms. Chest x-ray does show findings suggestive of possible atelectasis versus pneumonia however she is afebrile and has a normal white blood cell count. CRP is minimally elevated at 1.4, procalcitonin is pending. Her proBNP is significantly elevated from her baseline and there may very well be a component of CHF. She does not have any significant swelling on exam however. Pulmonary embolism is a consideration though less likely given her history and the fact that she is on apixaban however she may been off of the apixaban for several weeks due to medication mixup since leaving [facility] as per HPI. Check D-dimer and if significantly elevated, a V/Q scan would be prudent. (2) Acute exacerbation of congestive heart failure: Code(s): I50.9 - Heart failure, unspecified Status: Acute Assessment and Plan: Chest x-ray was read as atelectasis versus pneumonia however with significantly elevated proBNP she may very well have a component of CHF. Continue IV diuresis with close monitoring of volume status, renal function, and electrolytes. Echocardiogram ordered as she has not had 1 done for 2 years. (3) Pneumonia: Code(s): J18.9 - Pneumonia, unspecified organism Status: Acute Assessment and Plan: Chest x-ray was read as bibasilar atelectasis versus pneumonia. She is afebrile with a normal white blood cell count however family members have had URI symptoms and she has also not been feeling well for 3 days with a productive cough as per HPI. She has been started on doxycycline. Attempt sputum for culture. (4) Elevated troponin: Code(s): R77.8 - Other specified abnormalities of plasma proteins Status: Acute Assessment and Plan: Troponin is elevated but has remained flat. Likely these are elevated in the setting of her congestive heart and renal failure. (5) Obstructive sleep apnea: Code(s): G47.33 - Obstructive sleep apnea (adult) (pediatric) Status: Acute Assessment and Plan: BiPAP will be provided for the patient to use while hospitalized. (6) Stage III chronic kidney disease: Code(s): N18.3 - Chronic kidney disease, stage 3 (moderate) Status: Acute Assessment and Plan: Creatinine is stable on review of previous labs. (7) Essential hypertension: Code(s): I10 - Essential (primary) hypertension Status: Chronic Assessment and Plan: Blood pressures were reviewed and they have been running in the 150s to 170s systolic. The should improve with diuresis. Continue antihypertensives and monitor closely. (8) Chronic obstructive pulmonary disease: Code(s): J44.9 - Chronic obstructive pulmonary disease, unspecified Status: Acute Assessment and Plan: She has mild expiratory wheezing on exam but nothing significant. Rescue inhaler available as needed. (9) Insulin dependent type 2 diabetes mellitus: Code(s): E11.9 - Type 2 diabetes mellitus without complications; Z79.4 - residential (current) use of insulin Status: Acute Assessment and Plan: Continue basal insulin. Initiate sliding scale insulin, Accu-Cheks, and hypoglycemic protocol. Check A1c. (10) Anemia of chronic disease: Code(s): D63.8 - Anemia in other chronic diseases classified elsewhere Status: Acute Assessment and Plan: Hemoglobin is stable on review of previous labs. (11) Paroxysmal atrial flutter: Code(s): I48.92 - Unspecified atrial flutter Status: Acute Assessment and Plan: She is in atrial flutter with rates in the 90s to low 100s at this time. Continue amiodarone and
[2023-03-28 12:30] LABS: Glucose Point of Care 106 mg/dl (65-105)
[2023-03-28 16:05] LABS: Glucose Point of Care 132 mg/dl (65-105)
[2023-03-28] MEDS: MELATONIN 5 MG TABLET PO (20:10)
[2023-03-28] MEDS: INSULIN GLARGINE (*BKC) 100 UNITS/ML 30 UNITS SUB-Q (20:11)
[2023-03-28 20:12] LABS: Glucose Point of Care 138 mg/dl (65-105)
--- NOTE | 2023-03-28 22:52 | ECHO_ITS ---
Patient Info Name: Sarah Alvarado Age: 77 years : 1945 Gender: Female Ht: 66 in Wt: 235 lbs BSA: 2.28 m2 HR: 69 bpm BP: 150 / 82 mmHg Heart Rhythm: Sinus Rhythm Technical Quality: Fair Exam Date: 03/28/2023 9:44 AM Exam Location: [facility] Patient Status: Outpatient Admit Date: 03/27/2023 Staff Ordering Physician: Rubi Crisostomo PA-C Railroad Brake Operator: Kami Hough RDCS Attending Provider: Collins Conteh MD Referring Physician: Kranthi CALDERON; Exam Type: CA echo doppler color flow Study Info Indications - CHF, ELEVATED TROPONIN Complete two-dimensional, color flow and Doppler transthoracic echocardiogram is performed. Summary 1. Complete two-dimensional, color flow and Doppler transthoracic echocardiogram is performed. 2. Left ventricular chamber dimension is normal. 3. Left ventricular systolic function is normal, estimated at 55-60%. 4. There is moderate concentric increased left ventricular wall thickness. 5. The left ventricular diastolic function is abnormal. 6. E/e' 28 is elevated. 7. There is mild aortic valve sclerosis. 8. The mitral valve has mildly calcified leaflets and moderately calcified annulus. 9. There is mild tricuspid valve regurgitation. 10. No pulmonary hypertension, estimated pulmonary arterial systolic pressure is 38 mmHg. 11. There is trace pulmonic regurgitation. Left Ventricle E/e' 28 is elevated. Left ventricular chamber dimension is normal. Left ventricular systolic function is normal, estimated at 55-60%. There is moderate concentric increased left ventricular wall thickness. The left ventricular diastolic function is abnormal. Right Ventricle Right ventricular systolic function is normal and with normal TAPSE 2.2 cm. Right ventricular chamber dimension is normal. Left Atria Left atrial chamber dimension is normal. Right Atria Right atrial chamber dimension is normal. Aortic Valve The aortic valve is trileaflet. There is mild aortic valve sclerosis. There is no aortic valve stenosis. There is no aortic valve regurgitation. Pulmonic Valve There is trace pulmonic regurgitation. Mitral Valve The mitral valve has mildly calcified leaflets and moderately calcified annulus. There is no mitral valve stenosis. There is no mitral valve regurgitation. Tricuspid Valve There is mild tricuspid valve regurgitation. No pulmonary hypertension, estimated pulmonary arterial systolic pressure is 38 mmHg. Pericardium/Pleural There is no pericardial effusion. Inferior Vena Cava Normal inferior vena cava with >50% collapse upon inspiration consistent with normal right atrial pressure, 5 mmHg. Aorta The aortic root size at the sinus of Valsalva is normal. Left Ventricular Outflow Tract Name Value Normal LVOT 2D LVOT Diameter 2.0 cm LVOT Doppler LVOT Peak Gradient 3 mmHg LVOT Mean Gradient 1 mmHg LVOT VTI 13 cm LVOT VTI/AV VTI Ratio 0.4 LVOT Stroke Volume 40 ml LVOT CO 2.7 l/min LVOT CI 1.2 l/min/m2 Pulmo
[2023-03-29] VITALS (13 sets, daily range): BP systolic 83–121; BP diastolic 36–68; PULSE 56–81; RESP 16–20; TEMP 35.9–36.3; O2SAT 91–98
[2023-03-29] MEDS: SALINE LOCK FLUSH 10 ML IV PUSH ×3 (06:05→20:32)
[2023-03-29 07:36] LABS: Glucose Point of Care 75 mg/dl (65-105)
[2023-03-29] MEDS: carvediloL 25 MG TABLET PO ×2 (09:27→20:31)
[2023-03-29] MEDS: GABAPENTIN 300 MG CAPSULE PO ×3 (09:27→18:40)
[2023-03-29] MEDS: TAMSULOSIN HCL 0.4 MG CAPSULE PO (09:27)
[2023-03-29] MEDS: DOXYCYCLINE HYCLATE 100 MG TABLET PO ×2 (09:28→20:31)
[2023-03-29] MEDS: allopurinoL 50 MG TABLET PO (09:28)
[2023-03-29] MEDS: DICYCLOMINE HCL 10 MG CAPSULE PO (09:28)
[2023-03-29] MEDS: ATORVASTATIN 40 MG TABLET 80 MG PO (09:28)
[2023-03-29] MEDS: EZETIMIBE 10 MG TABLET PO (09:28)
[2023-03-29] MEDS: FUROSEMIDE INJ 40 MG/4 ML VIAL IV PUSH (09:29)
[2023-03-29] MEDS: PANTOPRAZOLE 40 MG TABLET PO (09:29)
[2023-03-29] MEDS: AMIODARONE HCL 200 MG TABLET PO (09:29)
[2023-03-29] MEDS: glipiZIDE 5 MG TABLET 10 MG PO ×2 (09:29→18:40)
[2023-03-29] MEDS: DOCUSATE SODIUM 100 MG CAPSULE PO (09:29)
[2023-03-29] MEDS: APIXABAN 5 MG TABLET PO ×2 (09:29→20:31)
[2023-03-29] MEDS: HYDROcodone/acetaminophen (*CRX) 10-325 MG TABLET 1 TAB PO ×2 (09:38→20:31)
[2023-03-29] MEDS: INSULIN ASPART (*BKC) 100 UNITS/ML SUB-Q ×4 (09:44→18:42)
--- NOTE | 2023-03-29 10:59 | PM.IMPN ---
Progress Note: A&P Assessment and Plan (1) Shortness of breath: Code(s): R06.02 - Shortness of breath Status: Acute Assessment and Plan: Breathing is much improved. (2) Acute exacerbation of congestive heart failure: Code(s): I50.9 - Heart failure, unspecified Status: Acute Assessment and Plan: Patient received IV diuresis and has done well. According the patient her breathing is back to baseline. (3) Pneumonia: Code(s): J18.9 - Pneumonia, unspecified organism Status: Acute Assessment and Plan: Continue doxycycline. (4) Elevated troponin: Code(s): R77.8 - Other specified abnormalities of plasma proteins Status: Acute Assessment and Plan: Troponin is elevated but has remained flat. Likely these are elevated in the setting of her congestive heart and renal failure. (5) Obstructive sleep apnea: Code(s): G47.33 - Obstructive sleep apnea (adult) (pediatric) Status: Acute Assessment and Plan: BiPAP will be provided for the patient to use while hospitalized. (6) Stage III chronic kidney disease: Code(s): N18.3 - Chronic kidney disease, stage 3 (moderate) Status: Acute Assessment and Plan: Creatinine is stable on review of previous labs. (7) Essential hypertension: Code(s): I10 - Essential (primary) hypertension Status: Chronic Assessment and Plan: Blood pressures were reviewed and they have been running in the 150s to 170s systolic. The should improve with diuresis. Continue antihypertensives and monitor closely. (8) Chronic obstructive pulmonary disease: Code(s): J44.9 - Chronic obstructive pulmonary disease, unspecified Status: Acute Assessment and Plan: She has mild expiratory wheezing on exam but nothing significant. Rescue inhaler available as needed. (9) Insulin dependent type 2 diabetes mellitus: Code(s): E11.9 - Type 2 diabetes mellitus without complications; Z79.4 - detention (current) use of insulin Status: Acute Assessment and Plan: Continue basal insulin. Initiate sliding scale insulin, Accu-Cheks, and hypoglycemic protocol. Check A1c. (10) Anemia of chronic disease: Code(s): D63.8 - Anemia in other chronic diseases classified elsewhere Status: Acute Assessment and Plan: Hemoglobin is stable on review of previous labs. (11) Paroxysmal atrial flutter: Code(s): I48.92 - Unspecified atrial flutter Status: Acute Assessment and Plan: She is in atrial flutter with rates in the 90s to low 100s at this time. Continue amiodarone and carvedilol. (12) Chronic anticoagulation: Code(s): Z79.01 - detention (current) use of anticoagulants Status: Acute Assessment and Plan: Continue apixaban. Plan Medical decision making narrative ? History obtained from: Patient. ? History from independent sources: None. ? External chart review: Previous visits reviewed. ? New problems addressed: Shortness of breath, CHF. ? Chronic illnesses addressed: Sleep apnea, chronic anticoagulation, atrial fibrillation, diabetes, chronic kidney disease, anemia. ? Independent interpretation of studies: Labs, imaging, EKG, and all reports were personally reviewed. ? Comorbidities complicating care: Patient has not had her medications since the beginning of the month. ? Diagnostic tests considered but not ordered: None. ? Shared decision making: Findings were reviewed and discussed with the patient, including plans for further workup and treatment options. Questions solicited and answered to satisfaction. Patient agrees with current plan of care. Subjective Date/time seen: 03/29/23 10:59 Interval history: breathing is better. Exam Narrative: General: Chronically ill, nontoxic-appearing female sitting up in bed brushing her teeth. Weight: 107.2 kg. BMI: 38.1.
[2023-03-29 11:24] LABS: Glucose Point of Care 215 mg/dl (65-105)
[2023-03-29] MEDS: SODIUM CHLORIDE 0.9% IV 250 ML 125 ML IV CONT (13:22)
[2023-03-29 16:36] LABS: Glucose Point of Care 138 mg/dl (65-105)
[2023-03-29] MEDS: MELATONIN 5 MG TABLET PO (20:31)
[2023-03-29] MEDS: INSULIN GLARGINE (*BKC) 100 UNITS/ML 30 UNITS SUB-Q (20:33)
[2023-03-29 20:39] LABS: Glucose Point of Care 166 mg/dl (65-105)
[2023-03-30] VITALS (11 sets, daily range): BP systolic 106–118; BP diastolic 48–65; PULSE 58–84; RESP 14–18; TEMP 35.7–36.5; O2SAT 95–99
[2023-03-30] MEDS: SALINE LOCK FLUSH 10 ML IV PUSH ×3 (05:34→21:04)
[2023-03-30] MEDS: HYDROcodone/acetaminophen (*CRX) 10-325 MG TABLET 1 TAB PO ×3 (05:55→23:11)
[2023-03-30 07:29] LABS: Glucose Point of Care 110 mg/dl (65-105)
[2023-03-30] MEDS: GABAPENTIN 300 MG CAPSULE PO ×3 (08:21→17:06)
[2023-03-30] MEDS: carvediloL 25 MG TABLET PO ×2 (08:21→21:03)
[2023-03-30] MEDS: TAMSULOSIN HCL 0.4 MG CAPSULE PO (08:21)
[2023-03-30] MEDS: FUROSEMIDE 40 MG TABLET PO (08:21)
[2023-03-30] MEDS: EZETIMIBE 10 MG TABLET PO (08:22)
[2023-03-30] MEDS: glipiZIDE 5 MG TABLET 10 MG PO ×2 (08:22→17:06)
[2023-03-30] MEDS: ATORVASTATIN 40 MG TABLET 80 MG PO (08:22)
[2023-03-30] MEDS: allopurinoL 50 MG TABLET PO (08:22)
[2023-03-30] MEDS: APIXABAN 5 MG TABLET PO ×2 (08:22→21:03)
[2023-03-30] MEDS: DOCUSATE SODIUM 100 MG CAPSULE PO (08:22)
[2023-03-30] MEDS: AMIODARONE HCL 200 MG TABLET PO (08:22)
[2023-03-30] MEDS: ERGOCALCIFEROL 50,000 UNITS CAPSULE 50000 UNITS PO (08:22)
[2023-03-30] MEDS: PANTOPRAZOLE 40 MG TABLET PO (08:23)
[2023-03-30] MEDS: DOXYCYCLINE HYCLATE 100 MG TABLET PO ×2 (08:23→21:03)
[2023-03-30] MEDS: INSULIN ASPART (*BKC) 100 UNITS/ML SUB-Q ×3 (08:27→17:07)
[2023-03-30 11:40] LABS: Glucose Point of Care 188 mg/dl (65-105)
[2023-03-30 16:30] LABS: Glucose Point of Care 138 mg/dl (65-105)
--- NOTE | 2023-03-30 16:53 | WPDPN ---
Progress Note: A&P Assessment and Plan (1) Shortness of breath: Code(s): R06.02 - Shortness of breath Status: Acute Assessment and Plan: Breathing is much improved. 03/30/2023 interval history: Patient presented with shortness of his found to have exacerbation of CHF patient is being diuresed, patient also found to have pneumonia and patient is being treated with doxycycline will add ceftriaxone and monitor patient also complains of being dizzy unfortunate patient unable to describe her dizziness patient has history CVA and concern, will do CT scan of the head to further evaluate, will have a PT OT evaluate the patient and further recommendation to follow. (2) Acute exacerbation of congestive heart failure: Code(s): I50.9 - Heart failure, unspecified Status: Acute Assessment and Plan: Patient received IV diuresis and has done well. According the patient her breathing is back to baseline. (3) Pneumonia: Code(s): J18.9 - Pneumonia, unspecified organism Status: Acute Assessment and Plan: Continue doxycycline. (4) Elevated troponin: Code(s): R77.8 - Other specified abnormalities of plasma proteins Status: Acute Assessment and Plan: Troponin is elevated but has remained flat. Likely these are elevated in the setting of her congestive heart and renal failure. (5) Obstructive sleep apnea: Code(s): G47.33 - Obstructive sleep apnea (adult) (pediatric) Status: Acute Assessment and Plan: BiPAP will be provided for the patient to use while hospitalized. (6) Stage III chronic kidney disease: Code(s): N18.3 - Chronic kidney disease, stage 3 (moderate) Status: Acute Assessment and Plan: Creatinine is stable on review of previous labs. (7) Essential hypertension: Code(s): I10 - Essential (primary) hypertension Status: Chronic Assessment and Plan: Blood pressures were reviewed and they have been running in the 150s to 170s systolic. The should improve with diuresis. Continue antihypertensives and monitor closely. (8) Chronic obstructive pulmonary disease: Code(s): J44.9 - Chronic obstructive pulmonary disease, unspecified Status: Acute Assessment and Plan: She has mild expiratory wheezing on exam but nothing significant. Rescue inhaler available as needed. (9) Insulin dependent type 2 diabetes mellitus: Code(s): E11.9 - Type 2 diabetes mellitus without complications; Z79.4 - chemicals distiller (current) use of insulin Status: Acute Assessment and Plan: Continue basal insulin. Initiate sliding scale insulin, Accu-Cheks, and hypoglycemic protocol. Check A1c. (10) Anemia of chronic disease: Code(s): D63.8 - Anemia in other chronic diseases classified elsewhere Status: Acute Assessment and Plan: Hemoglobin is stable on review of previous labs. (11) Paroxysmal atrial flutter: Code(s): I48.92 - Unspecified atrial flutter Status: Acute Assessment and Plan: She is in atrial flutter with rates in the 90s to low 100s at this time. Continue amiodarone and carvedilol. (12) Chronic anticoagulation: Code(s): Z79.01 - chemicals distiller (current) use of anticoagulants Status: Acute Assessment and Plan: Continue apixaban. Plan Medical decision making narrative ? History obtained from: Patient. ? History from independent sources: None. ? External chart review: Previous visits reviewed. ? New problems addressed: Shortness of breath, CHF. ? Chronic illnesses addressed: Sleep apnea, chronic anticoagulation, atrial fibrillation, diabetes, chronic kidney disease, anemia. ? Independent interpretation of studies: Labs, imaging, EKG, and all reports were personally reviewed. ? Comorbidities complicating care: Patient has not had her medications since the beginning of the month. ? Diagnostic tests con
[2023-03-30 20:35] LABS: Glucose Point of Care 107 mg/dl (65-105)
[2023-03-30] MEDS: MELATONIN 5 MG TABLET PO (21:03)
[2023-03-30] MEDS: INSULIN GLARGINE (*BKC) 100 UNITS/ML 30 UNITS SUB-Q (21:04)
[2023-03-30] MEDS: ACETAMINOPHEN 325 MG TABLET 650 MG PO (21:14)
[2023-03-31] MEDS: ACETAMINOPHEN 325 MG TABLET 650 MG PO (05:27)
[2023-03-31] MEDS: SALINE LOCK FLUSH 10 ML IV PUSH (05:28)
[2023-03-31 05:52] LABS: Hematocrit 28.5 % (37.0-47.0); Hemoglobin 8.7 g/dL (12.0-15.0); Mean Corpuscular HGB Conc 30.5 g/dl (32-36); Mean Corpuscular Hemoglobin 30.6 pg (26-34); Mean Corpuscular Volume 100.4 fl (80-100); Mean Platelet Volume 9.6 fl (7.4-10.4); Platelet Count Result 261 k/mm3 (150-375); Red Blood Count 2.84 M/mm3 (4.2-5.4); Red Cell Distribution Width 15.3 % (11.5-14.5); White Blood Count 7.1 K/mm3 (4.5-10.0)
[2023-03-31 06:00] VITALS: BP 110/54; PULSE 63; RESP 14; TEMP 36.2; O2SAT 96
[2023-03-31 06:07] LABS: Anion Gap 5 mmol/L (8-16); Blood Urea Nitrogen 46 mg/dL (7-17); Calcium 7.2 mg/dL (8.4-10.2); Carbon Dioxide 26 mmol/L (22-30); Chloride 105 mmol/L (98-107); Estimated CRCL calculation 26 ml/min; Estimated Glomerular Filt Rate 23; Glucose 88 mg/dL (65-110); Sodium 136 mmol/L (137-145)
[2023-03-31 07:29] LABS: Glucose Point of Care 78 mg/dl (65-105)
[2023-03-31 08:00] VITALS: PULSE 63; RESP 14; O2SAT 96
[2023-03-31] MEDS: EZETIMIBE 10 MG TABLET PO (09:32)
[2023-03-31] MEDS: glipiZIDE 5 MG TABLET 10 MG PO (09:33)
[2023-03-31] MEDS: allopurinoL 50 MG TABLET PO (09:33)
[2023-03-31] MEDS: GABAPENTIN 300 MG CAPSULE PO (09:33)
[2023-03-31] MEDS: APIXABAN 5 MG TABLET PO (09:33)
[2023-03-31] MEDS: ATORVASTATIN 40 MG TABLET 80 MG PO (09:33)
[2023-03-31] MEDS: FUROSEMIDE 40 MG TABLET PO (09:33)
[2023-03-31] MEDS: DOXYCYCLINE HYCLATE 100 MG TABLET PO (09:33)
[2023-03-31] MEDS: TAMSULOSIN HCL 0.4 MG CAPSULE PO (09:33)
[2023-03-31] MEDS: carvediloL 25 MG TABLET PO (09:33)
[2023-03-31] MEDS: AMIODARONE HCL 200 MG TABLET PO (09:34)
[2023-03-31] MEDS: PANTOPRAZOLE 40 MG TABLET PO (09:35)
[2023-03-31] MEDS: HYDROcodone/acetaminophen (*CRX) 10-325 MG TABLET 1 TAB PO ×2 (09:39→15:08)
--- NOTE | 2023-03-31 11:32 | PM.DS ---
DS: Admitting Diagnosis Discharge Date 03/31/2023 Admitting Diagnosis Shortness of breath DS: Discharge Diagnosis Discharge Diagnosis (1) Shortness of breath: Code(s): R06.02 - Shortness of breath Status: Acute Assessment and Plan: Breathing is much improved. 03/30/2023 interval history: Patient presented with shortness of his found to have exacerbation of CHF patient is being diuresed, patient also found to have pneumonia and patient is being treated with doxycycline will add ceftriaxone and monitor patient also complains of being dizzy unfortunate patient unable to describe her dizziness patient has history CVA and concern, will do CT scan of the head to further evaluate, will have a PT OT evaluate the patient and further recommendation to follow. (2) Acute exacerbation of congestive heart failure: Code(s): I50.9 - Heart failure, unspecified Status: Acute Assessment and Plan: Patient received IV diuresis and has done well. According the patient her breathing is back to baseline. (3) Pneumonia: Code(s): J18.9 - Pneumonia, unspecified organism Status: Acute Assessment and Plan: Continue doxycycline. (4) Elevated troponin: Code(s): R77.8 - Other specified abnormalities of plasma proteins Status: Acute Assessment and Plan: Troponin is elevated but has remained flat. Likely these are elevated in the setting of her congestive heart and renal failure. (5) Obstructive sleep apnea: Code(s): G47.33 - Obstructive sleep apnea (adult) (pediatric) Status: Acute Assessment and Plan: BiPAP will be provided for the patient to use while hospitalized. (6) Stage III chronic kidney disease: Code(s): N18.3 - Chronic kidney disease, stage 3 (moderate) Status: Acute Assessment and Plan: Creatinine is stable on review of previous labs. (7) Essential hypertension: Code(s): I10 - Essential (primary) hypertension Status: Chronic Assessment and Plan: Blood pressures were reviewed and they have been running in the 150s to 170s systolic. The should improve with diuresis. Continue antihypertensives and monitor closely. (8) Chronic obstructive pulmonary disease: Code(s): J44.9 - Chronic obstructive pulmonary disease, unspecified Status: Acute Assessment and Plan: She has mild expiratory wheezing on exam but nothing significant. Rescue inhaler available as needed. (9) Insulin dependent type 2 diabetes mellitus: Code(s): E11.9 - Type 2 diabetes mellitus without complications; Z79.4 - prison (current) use of insulin Status: Acute Assessment and Plan: Continue basal insulin. Initiate sliding scale insulin, Accu-Cheks, and hypoglycemic protocol. Check A1c. (10) Anemia of chronic disease: Code(s): D63.8 - Anemia in other chronic diseases classified elsewhere Status: Acute Assessment and Plan: Hemoglobin is stable on review of previous labs. (11) Paroxysmal atrial flutter: Code(s): I48.92 - Unspecified atrial flutter Status: Acute Assessment and Plan: She is in atrial flutter with rates in the 90s to low 100s at this time. Continue amiodarone and carvedilol. (12) Chronic anticoagulation: Code(s): Z79.01 - prison (current) use of anticoagulants Status: Acute Assessment and Plan: Continue apixaban. Plan Medical decision making narrative ? History obtained from: Patient. ? History from independent sources: None. ? External chart review: Previous visits reviewed. ? New problems addressed: Shortness of breath, CHF. ? Chronic illnesses addressed: Sleep apnea, chronic anticoagulation, atrial fibrillation, diabetes, chronic kidney disease, anemia. ? Independent interpretation of studies: Labs, imaging, EKG, and all reports were personally reviewed. ? Comorbidities complicat
[2023-03-31 11:45] LABS: Glucose Point of Care 202 mg/dl (65-105)
[2023-03-31 14:00] VITALS: BP 119/54; PULSE 64; RESP 18; TEMP 35.6; O2SAT 96
== END 2023-03-31 15:32 | disposition home health service (06) ==
LOC: ANHED 10:58 → ANHIMU 20:32 → ANH3MEDSUR 03-29 15:46 → ANHIMU 04-01 09:53
PROVIDERS: Physician Assistant; Admitting Provider Internal Medicine; Emergency Provider General Practice; PCP Family Medicine; Visit Provider Family Medicine
DX: R05.9 Cough, unspecified (principal); R06.02 Shortness of breath; R07.9 Chest pain, unspecified; I13.0 Hypertensive heart and chronic kidney disease with heart failure and stage 1 through stage 4 chronic kidney disease, or unspecified chronic kidney disease; E11.22 Type 2 diabetes mellitus with diabetic chronic kidney disease; N18.30 Chronic kidney disease, stage 3 unspecified; I50.9 Heart failure, unspecified; D63.1 Anemia in chronic kidney disease; Z20.822 Contact with and (suspected) exposure to COVID-19; I48.91 Unspecified atrial fibrillation; E11.40 Type 2 diabetes mellitus with diabetic neuropathy, unspecified; G47.30 Sleep apnea, unspecified; Z99.89 Dependence on other enabling machines and devices; F41.8 Other specified anxiety disorders; E55.9 Vitamin D deficiency, unspecified; K21.9 Gastro-esophageal reflux disease without esophagitis; R63.0 Anorexia; R77.8 Other specified abnormalities of plasma proteins; M79.7 Fibromyalgia; Q24.5 Malformation of coronary vessels; Z68.39 Body mass index [BMI] 39.0-39.9, adult; E78.5 Hyperlipidemia, unspecified; R94.31 Abnormal electrocardiogram [ECG] [EKG]; Z79.84 Long term (current) use of oral hypoglycemic drugs; Z79.85 Long-term (current) use of injectable non-insulin antidiabetic drugs; Z79.02 Long term (current) use of antithrombotics/antiplatelets; Z79.4 Long term (current) use of insulin; Z79.899 Other long term (current) drug therapy
CPT/HCPCS: 36415; 36569; 36600; 70450; 71046; 80048; 80053; 82948; 83036; 83605; 83735; 83880; 84145; 84484; 85025; 85027; 85380; 85610; 85730; 86140; 87636; 93005; 93306; 96374; 96376; 99285; A9270; C1751; G0378; J1815; J1940; J7030

== ENCOUNTER 2023-08-17 11:22 | Outpatient (CLI) | payer MEDICARE, MEDICAID, SELFPAY ==
[2023-08-17 12:27] LABS: Alanine Aminotransferase 16 U/L (6-35); Albumin Level 3.6 g/dL (3.5-5.1); Alkaline Phosphatase 59 U/L (38-126); Anion Gap 7 mmol/L (8-16); Aspartate Amino Transferase 26 U/L (14-36); Bilirubin,Total 0.6 mg/dL (0.2-1.3); Blood Urea Nitrogen 34 mg/dL (7-17); Calcium 8.6 mg/dL (8.4-10.2); Carbon Dioxide 22 mmol/L (22-30); Chloride 107 mmol/L (98-107); Cholesterol 174 mg/dL (0-200); Estimated Glomerular Filt Rate 22; Glucose 287 mg/dL (65-110); HDL Direct 63 mg/dL; Magnesium 2.4 mg/dL (1.6-2.3); Potassium 5.3 mmol/L (3.4-5.0); Sodium 136 mmol/L (137-145); Triglycerides 164 mg/dL (<150)
[2023-08-17 12:29] LABS: Basophils Percent Auto 0.6 % (0.2-1.2); Eosinophils Absolute Auto 0.1 K/mm3 (0-0.3); Eosinophils Percent Auto 1.6 % (0-4.4); Hemoglobin 11.5 g/dL (12.0-15.0); Immature Granulocyte Absolute 0.02 K/mm3 (0.00-0.031); Immature Granulocyte Percent A 0.4 % (0-0.5); Lymphocytes Absolute Auto 0.71 K/mm3 (0.9-3.2); Lymphocytes Percent Auto 14.1 % (18.3-44.2); Mean Corpuscular HGB Conc 31.9 g/dl (32-36); Mean Corpuscular Hemoglobin 33.4 pg (26-34); Mean Corpuscular Volume 104.7 fl (80-100); Monocytes Absolute Auto 0.2 K/mm3 (0.1-0.6); Monocytes Percent Auto 3.8 % (2.6-8.5); Neutrophils Percent Auto 79.5 % (45.5-73.1); Platelet Count Result 219 k/mm3 (150-375); Red Blood Count 3.44 M/mm3 (4.2-5.4); Red Cell Distribution Width 14.8 % (11.5-14.5)
[2023-08-17 12:41] LABS: LDL Cholesterol Direct 71 mg/dL
== END 2023-08-17 11:23 | disposition home or self-care (01) ==
LOC: ANHLAB 11:24
PROVIDERS: PCP Family Medicine; Visit Provider Internal Medicine Cardiovascular Disease
DX: E78.5 Hyperlipidemia, unspecified (principal)
CPT/HCPCS: 36415; 80053; 80061; 83735; 85025

== ENCOUNTER 2023-09-15 12:36 | Inpatient (IN) | payer MEDICARE, SELFPAY ==
[2023-09-15] VITALS (27 sets, daily range): BP systolic 157–187; BP diastolic 66–104; PULSE 71–84; RESP 14–22; TEMP 36.6–36.8; O2SAT 92–99; BMI 36.6
--- NOTE | ~2023-09-15 | XR_ITS ---
EXAMINATION: XR chest 1V portable DATE: 09/19/2023 17:16 INDICATION: Pneumonia TECHNIQUE: frontal view of the chest was obtained. COMPARISON: Chest radiograph dated 09/25/2023 FINDINGS: Mild bilateral perihilar opacities with some bronchial wall thickening. Mild linear bibasilar atelect asis. Small left pleural effusion. No pneumothorax or right-sided pleural effusion. Cardiomegaly. IMPRESSION: 1. Mild bilateral lateral perihilar opacities with some bronchial wall thickening which could represe nt bronchitis/pneumonia or mild pulmonary edema. 2. Small left pleural effusion. 3. Cardiomegaly. Reviewed, dictated and finalized at location A. A[employer]O POLISHER HELPER IMPRESSION: 1. Mild bilateral lateral perihilar opacities with some bronchial wall thickeni ng which could represent bronchitis/pneumonia or mild pulmonary edema. 2. Small left pleural effusion. 3. Cardiomegaly.
--- NOTE | ~2023-09-15 | XR_ITS ---
EXAMINATION: XR chest 2V DATE: 09/15/2023 13:20 INDICATION: Cough and congestive heart failure TECHNIQUE: PA and lateral views of the chest are obtained. COMPARISON: 03/27/2023 FINDINGS: There are interstitial and airspace opacities in the mid and lower lung zones. There are sm all pleural effusions. No pneumothorax is identified. The cardiomediastinal silhouette is normal. The re is moderate thoracic spondylosis. IMPRESSION: 1. Interstitial and airspace opacities in the mid and lower lung zones consistent with pneumonia and/ or pulmonary edema. Reviewed, dictated and finalized at location L. PILER IMPRESSION: 1. Interstitial and airspace opacities in the mid and lower lung zones consiste nt with pneumonia and/or pulmonary edema.
--- NOTE | 2023-09-15 12:56 | ECG_ITS ---
Measurements Intervals [place] Rate: 68 P: -70 [place]: 126 QRS: -50 QRSD: 148 T: 61 QT: 407 QTc: 435 Interpretive Statements SINUS RHYTHM BORDERLINE AV CONDUCTION DELAY LEFT BUNDLE BRANCH BLOCK BASELINE ARTIFACT- I, III, AVR, AVL ABNORMAL ECG COMPARED TO ECG 03/27/2023 10:20:48 SINUS RHYTHM NOW PRESENT Electronically Signed On 09-15-2023 13:57:52 HEALTH SCIENCES MANAGER by Chau Vega D.O.
[2023-09-15 13:07] LABS: Basophils Percent Auto 0.6 % (0.2-1.2); Eosinophils Absolute Auto 0.2 K/mm3 (0-0.3); Eosinophils Percent Auto 2.8 % (0-4.4); Hematocrit 32.6 % (37.0-47.0); Hemoglobin 10.2 g/dL (12.0-15.0); Immature Granulocyte Absolute 0.02 K/mm3 (0.00-0.031); Immature Granulocyte Percent A 0.4 % (0-0.5); Lymphocytes Absolute Auto 0.53 K/mm3 (0.9-3.2); Lymphocytes Percent Auto 9.9 % (18.3-44.2); Mean Corpuscular HGB Conc 31.3 g/dl (32-36); Mean Corpuscular Hemoglobin 33.2 pg (26-34); Mean Corpuscular Volume 106.2 fl (80-100); Mean Platelet Volume 9.5 fl (7.4-10.4); Monocytes Absolute Auto 0.3 K/mm3 (0.1-0.6); Monocytes Percent Auto 6.4 % (2.6-8.5); Neutrophils Absolute Auto 4.3 K/mm3 (1.3-6.7); Neutrophils Percent Auto 79.9 % (45.5-73.1); Platelet Count Result 166 k/mm3 (150-375); Red Blood Count 3.07 M/mm3 (4.2-5.4); Red Cell Distribution Width 15.1 % (11.5-14.5); White Blood Count 5.3 K/mm3 (4.5-10.0)
[2023-09-15 13:19] LABS: Alanine Aminotransferase 16 U/L (6-35); Albumin Level 3.4 g/dL (3.5-5.1); Alkaline Phosphatase 63 U/L (38-126); Anion Gap 7 mmol/L (8-16); Aspartate Amino Transferase 23 U/L (14-36); Bilirubin,Total 0.5 mg/dL (0.2-1.3); Blood Urea Nitrogen 40 mg/dL (7-17); Calcium 8.3 mg/dL (8.4-10.2); Carbon Dioxide 24 mmol/L (22-30); Chloride 106 mmol/L (98-107); Estimated CRCL calculation 21 ml/min; Estimated Glomerular Filt Rate 19; Glucose 240 mg/dL (65-110); Potassium 4.6 mmol/L (3.4-5.0); Sodium 137 mmol/L (137-145)
[2023-09-15 13:22] LABS: INR 1.4; Prothrombin Time 17.4 Seconds (11.1-14.7)
[2023-09-15 13:23] LABS: Partial Thromboplastin Time 42.2 SECONDS (22.3-36.8)
[2023-09-15 13:30] LABS: NT Pro B Type Natriuretic Pept 2450 pg/mL (19.9-100); Troponin I 0.022 ng/mL (0.000-0.034)
[2023-09-15 13:49] LABS: Influenza A QL RT-PCR Negative (Negative); Influenza B QL RT-PCR Negative (Negative); SARS-CoV-2 RNA PCR Negative (Negative)
[2023-09-15] MEDS: SODIUM CHLORIDE 0.9% IV 500 ML 999 ML IV CONT (15:44)
[2023-09-15 16:03] LABS: Appearance Urine Clear (Clear); Bacteria Urine None Seen /hpf; Bilirubin Urine Negative (Negative); Blood Urine Negative (Negative); Color Urine Yellow (Yellow); Glucose Urine UA 3+ mg/dL (Negative); Ketones Urine Negative (Negative); Leukocyte Esterase Ur Negative LEU/UL (Negative); Need Manual Microscopic Reviewed; Nitrate Urine Positive (Negative); Non Pathogenic Casts 0-2; Protein Urine 3+ mg/dL (Negative); RBC Urine 0-2 /hpf (0-2); Squamous Epithelial Cell Urine None seen /hpf (Few); Urobilinogen Urine 0.2 mg/dL (<2.0)
[2023-09-15 16:05] LABS: Add Urine Microscopic? YES
[2023-09-15 16:49] LABS: Strep Group A RT-PCR NOT DETECTED (Negative)
[2023-09-15] MEDS: levoFLOXacin 750 MG/D5W 150 ML 750 MG/150 ML BAG 100 MG IVPB (17:28)
--- NOTE | 2023-09-15 17:52 | ED.URI ---
HPI - URI/Sore Throat General Chief Complaint: Upper Respiratory Infection Stated Complaint: sore throat Time Seen by Provider: 09/15/23 14:14 Source: patient History of Present Illness HPI Narrative: This is a 78 year old female with pmh CHF who presents with complaint of a sore throat and cough. Her PCP sent her for a covid test. Patient thinks it is allergies as she has been sneezing and having rhinorrhea. She has also had a cough productive of green sputum but denies fevers. Patient states at one point she had been diagnosed with COPD. Denies smoking. She states she was then seen by a middle school science teacher who said she did not have COPD and she no longer uses inhalers. She has a history of multiple episodes of pneumonia including covid pneumonia. She has received 4 covid vaccinations but has not yet received her annual influenza vaccine. Related Data Home Medications Medication Instructions Recorded Confirmed gabapentin 300 mg capsule 300 mg PO TID 12/07/19 09/15/23 ergocalciferol (vitamin D2) 1,250 1,250 mcg PO WEEKLY 02/22/21 09/15/23 mcg (50,000 unit) capsule docusate sodium 100 mg capsule 1 cap PO DAILY 05/04/22 09/15/23 dicyclomine 10 mg capsule 10 mg PO TID PRN Abdominal 03/27/23 09/15/23 Discomfort allopurinol 100 mg tablet 100 mg PO DAILY 09/15/23 09/15/23 atorvastatin 80 mg tablet 80 mg PO HS 09/15/23 09/15/23 ezetimibe 10 mg tablet 10 mg PO DAILY 09/15/23 09/15/23 fenofibrate 160 mg tablet 160 mg PO DAILY 09/15/23 09/15/23 hydrocodone 10 mg-acetaminophen 10 tablet PO Q8H PRN Pain (Scale 09/15/23 09/15/23 325 mg tablet Score 4-6) insulin lispro 100 unit/mL See Rx Instructions .Route 09/15/23 09/15/23 subcutaneous pen (Humalog KwikPen .COMPLEX PRN Hyperglycemia (U-100) Insulin) melatonin 5 mg tablet 5 mg PO HS 09/15/23 09/15/23 sitagliptin phosphate 25 mg tablet 25 mg PO DAILY 09/15/23 09/15/23 (Januvia) Allergies Allergy/AdvReac Type Severity Reaction Status Date / Time ceftriaxone Allergy Unknown Anaphylaxis Verified 09/15/23 18:51 ,Unknown clindamycin Allergy Unknown Anaphylaxis,Not Verified 09/15/23 18:51 Entered morphine Allergy Unknown Not Verified 09/15/23 18:51 Entered,Vomiting nitroglycerin Allergy Unknown Not Verified 09/15/23 18:51 Entered,Headache Penicillins Allergy Unknown Not Verified 09/15/23 18:51 Entered,Hives [facility] Past Medical History Medical History (Updated 09/17/23 @ 13:50 by Nitza Mena MD) Anemia of chronic disease Bleeding ulcer Body mass index (BMI) greater than 35 (10/20/18) Calculus of gallbladder Cerebrovascular accident 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 Chronic anticoagulation Chronic obstructive pulmonary disease patient states she was told she does not have COPD by a middle school science teacher Congestive heart failure History of reduced ejection fraction with improvement in EF to 55% on most recent echo. Diastolic dysfunction also noted. 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 Depression with anxiety Diabetic peripheral neuropathy Dyslipidemia Elevated troponin Essential hypertension Fibromyalgia Gastroesophageal reflux disease History of peptic ulcer Hypersomnia Insulin dependent type 2 diabetes mellitus Obstructive sleep apnea on CPAP Osteoarthritis Paroxysmal atrial flutter Stage III chronic kidney disease Baseline creatinine ranges between 1.3 and 1.60. Vitamin D deficiency Surgical History Surgical History History of appendectomy History of cardiac catheterization (07/2013) Normal coronaries although anomalous left coronary artery arising from the right ostium was noted. History of hysterectomy (1979) History of left breast biopsy Benign pathology. Family History Family History (Reviewed 07/26/23 @
--- NOTE | 2023-09-15 18:20 | PC.NURSE ---
This patient, Sarah Alvarado, was admitted to [facility] Surg Room 330-02. Patient/family oriented to hospital policies and general routines including ID bracelet, bed and alarms, visiting hours, pain management, procedures, bathroom and other care routines, personal items, smoking policy, room service/diet, and visiting hours. Information on how to activate the Rapid Response Team has been discussed. Patient/Family are encouraged to report perceived risks to care and to ask questions if they do not understand what they are told or what they should do.
--- NOTE | 2023-09-15 19:57 | PM.IMHP ---
H&P: HPI History of Present Illness Date/Time: 09/15/23 19:57 Chief Complaint: Cough, sore throat Narrative: Patient was sent to the ED by her pcp to get covid-19 test, She complains of cough, fatigue and difficulty coughing up sputum, denied chest pain, N/V/D, body ache or fever, she has hx of copd, chf and chronic kidney disease. evaluation in the ED, Evaluation in the showed she has mildly elevated creatinine, and airspace opacities. She was started on Levaquin due to allergy to penicillin and also given IVF. I was called to admit this patient for observation. patient feel a little better during my encounter but she said she is still weak and this happens only when she has infection. Review of Systems Review of Systems: All systems reviewed & are unremarkable except as noted in HPI and below PMFSH Past Medical History Medical History Anemia of chronic disease Bleeding ulcer Body mass index (BMI) greater than 35 (10/20/18) Calculus of gallbladder Cerebrovascular accident 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 Chronic anticoagulation Chronic obstructive pulmonary disease Congestive heart failure History of reduced ejection fraction with improvement in EF to 55% on most recent echo. Diastolic dysfunction also noted. 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 Depression with anxiety Diabetic peripheral neuropathy Dyslipidemia Elevated troponin Essential hypertension Fibromyalgia Gastroesophageal reflux disease History of peptic ulcer Hypersomnia Insulin dependent type 2 diabetes mellitus Obstructive sleep apnea on CPAP Osteoarthritis Paroxysmal atrial flutter Stage III chronic kidney disease Baseline creatinine ranges between 1.3 and 1.60. Vitamin D deficiency Surgical History Surgical History History of appendectomy History of cardiac catheterization (07/2013) Normal coronaries although anomalous left coronary artery arising from the right ostium was noted. History of hysterectomy (1979) History of left breast biopsy Benign pathology. Family History Family History Father Malignant neoplasm of prostate Heart disease Mother Esophageal cancer Sibling Diabetes mellitus Daughter Alcoholism Social History Social History Social History: Surrogate medical decision maker: Mikki Herrera, daughter. Code status: Full code. Smoking status: Never smoker Second hand tobacco smoke exposure: Yes Alcohol intake: current Drinks per week: 1 Alcohol use details: Rarely Substance use: never Substance use type: does not use Lack of Transportation: YES Lack of Food: Never True Current Housing: I Have Housing Concerned About Future Housing: No Difficulty Paying Gas/Electric Bills: No Difficulty Paying for Meds: No Currently Unemployed: No Education: High School Diploma/GED Difficulty w/ Childcare or Family Care: No Additional living arrangements comments: . Lives with daughter iMkki in [place]. 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 Spiritual care concerns: No Meds Home Medications and Allergies Home Medications Medication Instructions Recorded Confirmed Type gabapentin 300 mg capsule 300 mg PO TID 12/07/19 09/15/23 History ergocalciferol (vitamin D2) 1,250 1,250 mcg PO WEEKLY 02/22/21 09/15/23 History mcg (50,000 unit) capsule acetaminophen 325 mg tablet (Mapap 650 mg PO Q4H PRN Mild Pain (1-3) 07/30/21 09/15/23 Rx (acetaminophen)) Or Fever #0 tabs docusate sodium 100 mg capsule 1 cap PO DAILY 05/04/22 09/15/23 History tamsulosin 0.4 mg capsule 0
[2023-09-15] MEDS: MELATONIN 3 MG TABLET PO (21:09)
[2023-09-15] MEDS: LACTATED RINGERS 1,000 ML 75 ML IV CONT (21:09)
[2023-09-15 21:27] LABS: Glucose Point of Care 259 mg/dl (65-105)
[2023-09-16] VITALS (7 sets, daily range): BP systolic 129–140; BP diastolic 50–73; PULSE 63–82; RESP 16; TEMP 36.4–36.9; O2SAT 91–98
[2023-09-16] MEDS: carvediloL 12.5 MG TABLET PO ×3 (00:01→20:04)
[2023-09-16] MEDS: guaiFENesin 200 MG/10 ML UDC PO ×2 (00:03→20:06)
[2023-09-16 06:21] LABS: Basophils Percent Auto 0.6 % (0.2-1.2); Eosinophils Absolute Auto 0.2 K/mm3 (0-0.3); Hematocrit 31.5 % (37.0-47.0); Hemoglobin 9.6 g/dL (12.0-15.0); Immature Granulocyte Absolute 0.02 K/mm3 (0.00-0.031); Immature Granulocyte Percent A 0.4 % (0-0.5); Lymphocytes Absolute Auto 0.85 K/mm3 (0.9-3.2); Lymphocytes Percent Auto 15.6 % (18.3-44.2); Mean Corpuscular HGB Conc 30.5 g/dl (32-36); Mean Corpuscular Hemoglobin 32.5 pg (26-34); Mean Corpuscular Volume 106.8 fl (80-100); Mean Platelet Volume 9.5 fl (7.4-10.4); Monocytes Absolute Auto 0.5 K/mm3 (0.1-0.6); Monocytes Percent Auto 8.4 % (2.6-8.5); Neutrophils Absolute Auto 3.9 K/mm3 (1.3-6.7); Platelet Count Result 167 k/mm3 (150-375); Red Blood Count 2.95 M/mm3 (4.2-5.4); Red Cell Distribution Width 15.4 % (11.5-14.5); White Blood Count 5.5 K/mm3 (4.5-10.0)
[2023-09-16 06:37] LABS: Anion Gap 5 mmol/L (8-16); Blood Urea Nitrogen 36 mg/dL (7-17); Calcium 8.4 mg/dL (8.4-10.2); Carbon Dioxide 24 mmol/L (22-30); Chloride 109 mmol/L (98-107); Estimated CRCL calculation 23 ml/min; Estimated Glomerular Filt Rate 21; Glucose 153 mg/dL (65-110); Potassium 4.4 mmol/L (3.4-5.0); Sodium 138 mmol/L (137-145)
--- NOTE | 2023-09-16 08:00 | ECG_ITS ---
Measurements Intervals [place] Rate: 77 P: -66 [place]: 172 QRS: -50 QRSD: 144 T: 111 QT: 405 QTc: 459 Interpretive Statements SINUS RHYTHM WITH FIRST DEGREE AV BLOCK LEFT AXIS DEVIATION LEFT BUNDLE BRANCH BLOCK BASELINE WANDER- I, II, AVR, AVL, AVF, V5 ABNORMAL ECG COMPARED TO ECG 09/15/2023 13:34:59 NO SIGNIFICANT CHANGES Electronically Signed On 09-16-2023 10:53:21 SKATES OPERATOR by Chau Vega D.O.
[2023-09-16] MEDS: GABAPENTIN 300 MG CAPSULE PO ×3 (09:32→18:47)
[2023-09-16] MEDS: APIXABAN 5 MG TABLET PO ×2 (09:32→20:04)
[2023-09-16] MEDS: TAMSULOSIN HCL 0.4 MG CAPSULE PO (09:32)
[2023-09-16] MEDS: FENOFIBRATE 160 MG TABLET PO (09:33)
[2023-09-16] MEDS: AMIODARONE HCL 200 MG TABLET PO (09:33)
[2023-09-16] MEDS: allopurinoL 100 MG TABLET PO (09:33)
[2023-09-16] MEDS: DOCUSATE SODIUM 100 MG CAPSULE PO (09:33)
[2023-09-16] MEDS: EZETIMIBE 10 MG TABLET PO (09:33)
--- NOTE | 2023-09-16 09:34 | PM.IMPN ---
Progress Note: A&P Assessment and Plan (1) Community acquired pneumonia: Code(s): J18.9 - Pneumonia, unspecified organism Status: Acute (2) LIV (acute kidney injury): Code(s): N17.9 - Acute kidney failure, unspecified Status: Acute (3) Elevated brain natriuretic peptide (BNP) level: Code(s): R79.89 - Other specified abnormal findings of blood chemistry Status: Acute Plan Community-acquired pneumonia patient with multiple comorbidities who present with cough, sore throat and congestion, she does have hx of CHF, and recurrent pneumonia. Evaluation int he Ed showed that she has pulmonary infiltrates suggestive of pneumonia on levaquin iv Chronic diastolic heart failure Echocardiogram March 28 showed ?3. Left ventricular systolic function is normal, estimated at 55-60%. ? 4. There is moderate concentric increased left ventricular wall thickness. ? 5. The left ventricular diastolic function is abnormal. ? 6. E/e' 28 is elevated. ? 7. There is mild aortic valve sclerosis. ? 8. The mitral valve has mildly calcified leaflets and moderately calcified annulus. ? 9. There is mild tricuspid valve regurgitation. Elevated BNP held furosemide due to LIV LIV on CKD there is also slight rise in creatinine, most likely from use of diuretics and subsequent dehydration, elevated BNP may be from low renal function, she does nto appear fluid overlaoded. , gentle IV hydration also continued, Paroxysmal AFib Now patient has sinus rhythm, continue Eliquis 5 mg b.i.d. p.o., MRI 200 mg daily p.o. Hypertension Continue carvedilol 12.5 mg b.i.d. p.o. Type 2 diabetes Continue insulin sliding scale a.c. q.h.s. DVT prophylaxis - continue eliquis Billing code: [id number] Subjective Date/time seen: 09/16/23 09:34 Interval history: I saw exam patient today. Patient feels better, but still has cough with scant phlegm. Shortness breath is improving. Denies chest pain abdomen pain nausea vomiting diarrhea Exam Narrative: GENERAL: Pleasant, in no acute distress. Well-nourished. Obesity - EYES: EOMI. Anicteric. - HENT: Moist mucous membranes. - LUNGS: Coarse breath sound bilaterally, no wheezing, rhonchi, or rales. - CARDIOVASCULAR: Regular rate and rhythm. No murmur. No JVD. - ABDOMEN: Soft, non-tender and non-distended. No palpable masses. - EXTREMITIES: No edema. Peripheral pulses 2+. Non-tender. - NEUROLOGIC: No focal neurological deficits. CN II-XII grossly intact. - PSYCHIATRIC: Awake, Alert and oriented x 3. Appropriate mood and affect. - SKIN: No rashes or lesions. Warm. - LYMPH: No cervical lymphadenopathy. Objective Data Vital Signs Vital Signs: Vital Signs - 24 hr 09/15/23 12:53 09/15/23 13:45 09/15/23 13:39 Temperature 98.3 F Pulse Rate 72 Respiratory Rate 18 Blood Pressure 161/92 H Pulse Oximetry 97 97 92 Oxygen Delivery Room Air Room Air 09/15/23 13:45 09/15/23 13:46 09/15/23 14:00 Temperature Pulse Rate 71 72 Respiratory Rate 18 20 17 Blood Pressure 174/95 H Pulse Oximetry 95 95 96 Oxygen Delivery 09/15/23 14:15 09/15/23 14:21 09/15/23 14:30 Temperature Pulse Rate 72 74 72 Respiratory Rate 19 17 19 Blood Pressure 157/72 H Pulse Oximetry 96 93 95 Oxygen Delivery 09/15/23 14:41 09/15/23 14:45 09/15/23 15:06 Temperature Pulse Rate 72 73 77 Respiratory Rate 18 15 20 Blood Pressure 170/92 H Pulse Oximetry 93 95 Oxygen Delivery 09/15/23 15:43 09/15/23 15:52 09/15/23 16:00 Temperature Pulse Rate 74 79 Respiratory Rate 16 17 Blood Pressure 171/80 H Pulse Oximetry 97 96 Oxygen Delivery 09/15/23 16:01 09/15/23 16:15 09/15/23 16:57 Temperature Pulse Rate 77 76 80 Respiratory Rate 16 14 18 Blood Pressure 165/103 H 168/95 H Pulse Oximetry 98 98 99 Oxygen Delivery 09/15/23 16:30 09/15/23 16:45 09/15/23 16:57 Temperature Pulse Rate 77 76 80 Respiratory Rate 14 15 22 H Blood Pre
[2023-09-16] MEDS: ERGOCALCIFEROL 50,000 UNITS CAPSULE 50000 UNITS PO (09:37)
[2023-09-16] MEDS: ATORVASTATIN 40 MG TABLET 80 MG PO (20:04)
[2023-09-16] MEDS: MELATONIN 5 MG TABLET PO (20:06)
[2023-09-17] VITALS (7 sets, daily range): BP systolic 124–180; BP diastolic 58–89; PULSE 69–78; RESP 16; TEMP 36.2–36.6; O2SAT 95–97
[2023-09-17 07:53] LABS: Glucose Point of Care 172 mg/dl (65-105)
[2023-09-17] MEDS: EZETIMIBE 10 MG TABLET PO (08:30)
[2023-09-17] MEDS: FENOFIBRATE 160 MG TABLET PO (08:30)
[2023-09-17] MEDS: APIXABAN 5 MG TABLET PO ×2 (08:30→21:10)
[2023-09-17] MEDS: GABAPENTIN 300 MG CAPSULE PO ×3 (08:30→17:33)
[2023-09-17] MEDS: TAMSULOSIN HCL 0.4 MG CAPSULE PO (08:30)
[2023-09-17] MEDS: DICYCLOMINE HCL 10 MG CAPSULE PO (08:30)
[2023-09-17] MEDS: DOCUSATE SODIUM 100 MG CAPSULE PO (08:31)
[2023-09-17] MEDS: AMIODARONE HCL 200 MG TABLET PO (08:31)
[2023-09-17] MEDS: FUROSEMIDE 40 MG TABLET PO (08:32)
[2023-09-17] MEDS: carvediloL 12.5 MG TABLET PO ×2 (08:32→21:14)
[2023-09-17] MEDS: allopurinoL 100 MG TABLET PO (08:44)
--- NOTE | 2023-09-17 09:04 | PM.IMPN ---
Progress Note: A&P Assessment and Plan (1) Community acquired pneumonia: Code(s): J18.9 - Pneumonia, unspecified organism Status: Acute (2) LIV (acute kidney injury): Code(s): N17.9 - Acute kidney failure, unspecified Status: Acute (3) Elevated brain natriuretic peptide (BNP) level: Code(s): R79.89 - Other specified abnormal findings of blood chemistry Status: Acute Plan Community-acquired pneumonia patient with multiple comorbidities who present with cough, sore throat and congestion, she does have hx of CHF, and recurrent pneumonia. Evaluation int he Ed showed that she has pulmonary infiltrates suggestive of pneumonia on levaquin iv Chronic diastolic heart failure Echocardiogram March 28 showed ?3. Left ventricular systolic function is normal, estimated at 55-60%. ? 4. There is moderate concentric increased left ventricular wall thickness. ? 5. The left ventricular diastolic function is abnormal. ? 6. E/e' 28 is elevated. ? 7. There is mild aortic valve sclerosis. ? 8. The mitral valve has mildly calcified leaflets and moderately calcified annulus. ? 9. There is mild tricuspid valve regurgitation. Elevated BNP held furosemide due to LIV LIV on CKD there is also slight rise in creatinine, most likely from use of diuretics and subsequent dehydration, elevated BNP may be from low renal function, she does nto appear fluid overlaoded. gentle IV hydration also continued, Paroxysmal AFib Now patient has sinus rhythm, continue Eliquis 5 mg b.i.d. p.o., amiodarone 200 mg daily p.o. Hypertension Continue carvedilol 12.5 mg b.i.d. p.o. Type 2 diabetes Continue insulin sliding scale a.c. q.h.s. DVT prophylaxis - continue eliquis Billing code: [id number] Subjective Date/time seen: 09/17/23 09:04 Interval history: I saw exam patient today. Patient still has cough with scant phlegm. Shortness breath is improving. Denies chest pain abdomen pain nausea vomiting diarrhea Exam Narrative: GENERAL: Pleasant, in no acute distress. Well-nourished. Obesity - EYES: EOMI. Anicteric. - HENT: Moist mucous membranes. - LUNGS: Coarse breath sound bilaterally, no wheezing, rhonchi, or rales. - CARDIOVASCULAR: Regular rate and rhythm. No murmur. No JVD. - ABDOMEN: Soft, non-tender and non-distended. No palpable masses. - EXTREMITIES: No edema. Peripheral pulses 2+. Non-tender. - NEUROLOGIC: No focal neurological deficits. CN II-XII grossly intact. - PSYCHIATRIC: Awake, Alert and oriented x 3. Appropriate mood and affect. - SKIN: No rashes or lesions. Warm. - LYMPH: No cervical lymphadenopathy. Objective Data Vital Signs Vital Signs: Vital Signs - 24 hr 09/16/23 09:32 09/16/23 09:33 09/16/23 09:30 Temperature Pulse Rate 71 71 Respiratory Rate Blood Pressure Pulse Oximetry Oxygen Delivery Room Air 09/16/23 15:22 09/16/23 20:04 09/16/23 21:23 Temperature 98.4 F 97.8 F Pulse Rate 63 82 70 Respiratory Rate 16 16 Blood Pressure 140/71 129/73 Pulse Oximetry 98 96 Oxygen Delivery 09/17/23 04:38 09/17/23 08:31 09/17/23 08:32 Temperature 97.8 F Pulse Rate 78 69 69 Respiratory Rate 16 Blood Pressure 124/58 L Pulse Oximetry 95 Oxygen Delivery Intake/Output Intake/Output: Intake & Output 09/14/23 09/15/23 09/16/23 09/17/23 23:59 23:59 23:59 23:59 Intake Total 650 1300 Balance 650 1300 Meds/Results Medications: Active Medications Generic Name Dose Route Start Last Admin Trade Name Freq PRN Reason Stop Dose Admin Acetaminophen 650 mg 09/16/23 09:44 Acetaminophen 325 Mg Tablet PO Q4H PRN Mild Pain (1-3) Or Fever Hydrocodone Bitart/Acetaminophen 10 tab 09/15/23 23:24 Hydrocodone/Acetaminophen (*Crx) 10-325 Mg Tablet PO Q8H PRN Pain (Scale Score 4-6) Albuterol 2 puff 09/16/23 09:44 Albuterol Sulfate (*Sp) Aerosol 1 Puff INHALATION Q4-6H PRN shortness of breath or wh
[2023-09-17 09:33] LABS: Basophils Percent Auto 0.6 % (0.2-1.2); Eosinophils Absolute Auto 0.2 K/mm3 (0-0.3); Eosinophils Percent Auto 5.8 % (0-4.4); Hematocrit 30.4 % (37.0-47.0); Hemoglobin 9.5 g/dL (12.0-15.0); Immature Granulocyte Absolute 0.03 K/mm3 (0.00-0.031); Immature Granulocyte Percent A 0.8 % (0-0.5); Lymphocytes Absolute Auto 0.68 K/mm3 (0.9-3.2); Lymphocytes Percent Auto 18.8 % (18.3-44.2); Mean Corpuscular HGB Conc 31.3 g/dl (32-36); Mean Corpuscular Hemoglobin 33.1 pg (26-34); Mean Corpuscular Volume 105.9 fl (80-100); Mean Platelet Volume 9.6 fl (7.4-10.4); Monocytes Absolute Auto 0.3 K/mm3 (0.1-0.6); Monocytes Percent Auto 8.3 % (2.6-8.5); Neutrophils Absolute Auto 2.4 K/mm3 (1.3-6.7); Neutrophils Percent Auto 65.7 % (45.5-73.1); Platelet Count Result 180 k/mm3 (150-375); Red Blood Count 2.87 M/mm3 (4.2-5.4); Red Cell Distribution Width 15.6 % (11.5-14.5); White Blood Count 3.6 K/mm3 (4.5-10.0)
[2023-09-17 09:50] LABS: Anion Gap 6 mmol/L (8-16); Blood Urea Nitrogen 35 mg/dL (7-17); Calcium 8.3 mg/dL (8.4-10.2); Carbon Dioxide 23 mmol/L (22-30); Chloride 110 mmol/L (98-107); Estimated CRCL calculation 21 ml/min; Estimated Glomerular Filt Rate 19; Glucose 280 mg/dL (65-110); Potassium 4.4 mmol/L (3.4-5.0); Sodium 139 mmol/L (137-145)
[2023-09-17 12:04] LABS: Glucose Point of Care 276 mg/dl (65-105)
[2023-09-17] MEDS: ACETAMINOPHEN 325 MG TABLET 650 MG PO (12:16)
[2023-09-17] MEDS: INSULIN ASPART (*BKC) 100 UNITS/ML SUB-Q ×2 (12:16→21:06)
[2023-09-17 12:33] LABS: Hemoglobin A1C 8.3 % (<5.7)
[2023-09-17 16:27] LABS: Glucose Point of Care 115 mg/dl (65-105)
[2023-09-17] MEDS: levoFLOXacin 750 MG/D5W 150 ML 750 MG/150 ML BAG 100 MG IVPB (17:28)
[2023-09-17] MEDS: LACTATED RINGERS 1,000 ML 75 ML IV CONT (17:28)
[2023-09-17 20:51] LABS: Glucose Point of Care 226 mg/dl (65-105)
[2023-09-17] MEDS: ATORVASTATIN 40 MG TABLET 80 MG PO (21:11)
[2023-09-17] MEDS: MELATONIN 5 MG TABLET PO (21:11)
[2023-09-18] VITALS (9 sets, daily range): BP systolic 115–151; BP diastolic 69–74; PULSE 69–78; RESP 16–20; TEMP 36.3–36.6; O2SAT 96–99
[2023-09-18] MEDS: guaiFENesin 200 MG/10 ML UDC PO (01:21)
[2023-09-18] MEDS: ALBUTEROL SULFATE (*SP) AEROSOL 1 PUFF 2 PUFF INHALATION ×2 (01:30→19:18)
[2023-09-18 08:07] LABS: Basophils Percent Auto 0.9 % (0.2-1.2); Eosinophils Absolute Auto 0.2 K/mm3 (0-0.3); Eosinophils Percent Auto 7.1 % (0-4.4); Hematocrit 31.1 % (37.0-47.0); Hemoglobin 9.5 g/dL (12.0-15.0); Immature Granulocyte Absolute 0.03 K/mm3 (0.00-0.031); Immature Granulocyte Percent A 0.9 % (0-0.5); Lymphocytes Absolute Auto 0.77 K/mm3 (0.9-3.2); Lymphocytes Percent Auto 22.9 % (18.3-44.2); Mean Corpuscular HGB Conc 30.5 g/dl (32-36); Mean Corpuscular Hemoglobin 32.8 pg (26-34); Mean Corpuscular Volume 107.2 fl (80-100); Mean Platelet Volume 9.7 fl (7.4-10.4); Monocytes Absolute Auto 0.3 K/mm3 (0.1-0.6); Monocytes Percent Auto 8.3 % (2.6-8.5); Neutrophils Percent Auto 59.9 % (45.5-73.1); Platelet Count Result 203 k/mm3 (150-375); Red Cell Distribution Width 15.2 % (11.5-14.5); White Blood Count 3.4 K/mm3 (4.5-10.0)
[2023-09-18 08:17] LABS: Glucose Point of Care 152 mg/dl (65-105)
[2023-09-18 08:22] LABS: Anion Gap 7 mmol/L (8-16); Blood Urea Nitrogen 34 mg/dL (7-17); Calcium 8.5 mg/dL (8.4-10.2); Carbon Dioxide 24 mmol/L (22-30); Chloride 109 mmol/L (98-107); Estimated CRCL calculation 23 ml/min; Estimated Glomerular Filt Rate 21; Glucose 157 mg/dL (65-110); Potassium 4.7 mmol/L (3.4-5.0); Sodium 140 mmol/L (137-145)
--- NOTE | 2023-09-18 08:30 | PM.IMPN ---
Progress Note: A&P Assessment and Plan (1) Community acquired pneumonia: Code(s): J18.9 - Pneumonia, unspecified organism Status: Acute (2) LIV (acute kidney injury): Code(s): N17.9 - Acute kidney failure, unspecified Status: Acute (3) Elevated brain natriuretic peptide (BNP) level: Code(s): R79.89 - Other specified abnormal findings of blood chemistry Status: Acute Plan Community-acquired pneumonia patient with multiple comorbidities who present with cough, sore throat and congestion, she does have hx of CHF, and recurrent pneumonia. Evaluation int he Ed showed that she has pulmonary infiltrates suggestive of pneumonia on levaquin iv patient still has cough add doxy p.o. Chronic diastolic heart failure Echocardiogram March 28 showed ?3. Left ventricular systolic function is normal, estimated at 55-60%. ? 4. There is moderate concentric increased left ventricular wall thickness. ? 5. The left ventricular diastolic function is abnormal. ? 6. E/e' 28 is elevated. ? 7. There is mild aortic valve sclerosis. ? 8. The mitral valve has mildly calcified leaflets and moderately calcified annulus. ? 9. There is mild tricuspid valve regurgitation. Elevated BNP held furosemide due to LIV LIV on CKD there is also slight rise in creatinine, most likely from use of diuretics and subsequent dehydration, elevated BNP may be from low renal function, she does nto appear fluid overlaoded. gentle IV hydration also continued, Kidney function is improving Paroxysmal AFib Now patient has sinus rhythm, continue Eliquis 5 mg b.i.d. p.o., amiodarone 200 mg daily p.o. Hypertension Continue carvedilol 12.5 mg b.i.d. p.o. Type 2 diabetes Continue insulin sliding scale a.c. q.h.s. DVT prophylaxis - continue eliquis Billing code: [id number] Subjective Date/time seen: 09/18/23 08:30 Interval history: I saw exam patient today. Patient still has cough with scant phlegm. Shortness breath is improving. Denies chest pain abdomen pain nausea vomiting diarrhea Exam Narrative: GENERAL: Pleasant, in no acute distress. Well-nourished. Obesity - EYES: EOMI. Anicteric. - HENT: Moist mucous membranes. - LUNGS: Coarse breath sound bilaterally, no wheezing, rhonchi, or rales. - CARDIOVASCULAR: Regular rate and rhythm. No murmur. No JVD. - ABDOMEN: Soft, non-tender and non-distended. No palpable masses. - EXTREMITIES: No edema. Peripheral pulses 2+. Non-tender. - NEUROLOGIC: No focal neurological deficits. CN II-XII grossly intact. - PSYCHIATRIC: Awake, Alert and oriented x 3. Appropriate mood and affect. - SKIN: No rashes or lesions. Warm. - LYMPH: No cervical lymphadenopathy. Objective Data Vital Signs Vital Signs: Vital Signs - 24 hr 09/17/23 08:31 09/17/23 08:32 09/17/23 21:14 Temperature Pulse Rate 69 69 72 Respiratory Rate Blood Pressure Pulse Oximetry Oxygen Delivery 09/17/23 20:36 09/17/23 20:00 09/18/23 01:33 Temperature 97.1 F L Pulse Rate 72 72 74 Respiratory Rate 16 16 20 Blood Pressure 180/89 H Pulse Oximetry 97 97 Oxygen Delivery Room Air 09/18/23 04:40 Temperature 97.3 F L Pulse Rate 69 Respiratory Rate 18 Blood Pressure 136/69 Pulse Oximetry 96 Oxygen Delivery Intake/Output Intake/Output: Intake & Output 09/15/23 09/16/23 09/17/23 09/18/23 23:59 23:59 23:59 23:59 Intake Total 650 1300 1993 Balance 650 1300 1993 Meds/Results Medications: Active Medications Generic Name Dose Route Start Last Admin Trade Name Freq PRN Reason Stop Dose Admin Acetaminophen 650 mg 09/16/23 09:44 09/17/23 12:16 Acetaminophen 325 Mg Tablet PO 650 mg Q4H PRN Administration Mild Pain (1-3) Or Fever Hydrocodone Bitart/Acetaminophen 10 tab 09/15/23 23:24 Hydrocodone/Acetaminophen (*Crx) 10-325 Mg Tablet PO Q8H PRN Pain (Scale Score 4-6) Albuterol 2 puff 09/16/23 09:44 09/18/23 01:30 Albuterol Sulfate (*S
[2023-09-18 08:40] LABS: Macrocytosis 2+ (NORMAL); Platelet Estimate Adequate (Adequate); Schistocytes None Seen (NORMAL)
[2023-09-18] MEDS: FENOFIBRATE 160 MG TABLET PO (08:47)
[2023-09-18] MEDS: EZETIMIBE 10 MG TABLET PO (08:47)
[2023-09-18] MEDS: TAMSULOSIN HCL 0.4 MG CAPSULE PO (08:47)
[2023-09-18] MEDS: carvediloL 12.5 MG TABLET PO ×2 (08:47→20:54)
[2023-09-18] MEDS: GABAPENTIN 300 MG CAPSULE PO ×3 (08:47→16:54)
[2023-09-18] MEDS: AMIODARONE HCL 200 MG TABLET PO (08:48)
[2023-09-18] MEDS: DOCUSATE SODIUM 100 MG CAPSULE PO (08:48)
[2023-09-18] MEDS: APIXABAN 5 MG TABLET PO ×2 (08:48→20:54)
[2023-09-18] MEDS: LACTATED RINGERS 1,000 ML 75 ML IV CONT (11:25)
[2023-09-18 12:04] LABS: Glucose Point of Care 190 mg/dl (65-105)
[2023-09-18] MEDS: ACETAMINOPHEN 325 MG TABLET 650 MG PO (16:54)
[2023-09-18] MEDS: DOXYCYCLINE HYCLATE 100 MG TABLET PO ×2 (16:54→22:04)
[2023-09-18] MEDS: INSULIN ASPART (*BKC) 100 UNITS/ML SUB-Q (16:55)
[2023-09-18 17:17] LABS: Glucose Point of Care 242 mg/dl (65-105)
[2023-09-18] MEDS: ATORVASTATIN 40 MG TABLET 80 MG PO (20:54)
[2023-09-18] MEDS: MELATONIN 5 MG TABLET PO (20:55)
[2023-09-18 21:17] LABS: Glucose Point of Care 199 mg/dl (65-105)
[2023-09-18] MEDS: guaiFENesin/DEXTROMETHORPHAN 10 ML UDC PO (22:04)
[2023-09-19] MEDS: LACTATED RINGERS 1,000 ML 75 ML IV CONT ×3 (03:55→20:39)
[2023-09-19] MEDS: guaiFENesin/DEXTROMETHORPHAN 10 ML UDC PO ×2 (05:01→08:48)
[2023-09-19 06:00] VITALS: BP 160/77; PULSE 67; RESP 18; TEMP 36.7; O2SAT 98
--- NOTE | 2023-09-19 07:34 | PM.IMPN ---
Progress Note: A&P Assessment and Plan (1) Community acquired pneumonia: Code(s): J18.9 - Pneumonia, unspecified organism Status: Acute (2) LIV (acute kidney injury): Code(s): N17.9 - Acute kidney failure, unspecified Status: Acute (3) Elevated brain natriuretic peptide (BNP) level: Code(s): R79.89 - Other specified abnormal findings of blood chemistry Status: Acute Plan Community-acquired pneumonia patient with multiple comorbidities who present with cough, sore throat and congestion, she does have hx of CHF, and recurrent pneumonia. Evaluation int he Ed showed that she has pulmonary infiltrates suggestive of pneumonia on levaquin iv patient still has cough add doxy p.o.09/18 Now patient still has a cough, shortness breath is improving Chronic diastolic heart failure Echocardiogram March 28 showed ?3. Left ventricular systolic function is normal, estimated at 55-60%. ? 4. There is moderate concentric increased left ventricular wall thickness. ? 5. The left ventricular diastolic function is abnormal. ? 6. E/e' 28 is elevated. ? 7. There is mild aortic valve sclerosis. ? 8. The mitral valve has mildly calcified leaflets and moderately calcified annulus. ? 9. There is mild tricuspid valve regurgitation. Elevated BNP held furosemide due to LIV LIV on CKD there is also slight rise in creatinine, most likely from use of diuretics and subsequent dehydration, elevated BNP may be from low renal function, she does nto appear fluid overlaoded. gentle IV hydration also continued, Kidney function is improving Creatinine 2.10 Paroxysmal AFib Now patient has sinus rhythm, continue Eliquis 5 mg b.i.d. p.o., amiodarone 200 mg daily p.o. Hypertension Continue carvedilol 12.5 mg b.i.d. p.o. Type 2 diabetes Continue insulin sliding scale a.c. q.h.s. DVT prophylaxis - continue eliquis Billing code: [id number] Patient may be discharged tomorrow if patient condition continues to improve Subjective Date/time seen: 09/19/23 07:34 Interval history: I saw exam patient today. Patient still has cough with scant phlegm. But cough is improving, doxycycline added yesterday. Denies chest pain abdomen pain nausea vomiting diarrhea Exam Narrative: GENERAL: Pleasant, in no acute distress. Well-nourished. Obesity - EYES: EOMI. Anicteric. - HENT: Moist mucous membranes. - LUNGS: Coarse breath sound bilaterally, no wheezing, rhonchi, or rales. - CARDIOVASCULAR: Regular rate and rhythm. No murmur. No JVD. - ABDOMEN: Soft, non-tender and non-distended. No palpable masses. - EXTREMITIES: No edema. Peripheral pulses 2+. Non-tender. - NEUROLOGIC: No focal neurological deficits. CN II-XII grossly intact. - PSYCHIATRIC: Awake, Alert and oriented x 3. Appropriate mood and affect. - SKIN: No rashes or lesions. Warm. - LYMPH: No cervical lymphadenopathy. Objective Data Vital Signs Vital Signs: Vital Signs - 24 hr 09/18/23 08:47 09/18/23 08:48 09/18/23 08:50 Temperature Pulse Rate 76 76 Respiratory Rate Blood Pressure Pulse Oximetry Oxygen Delivery Room Air 09/18/23 14:00 09/18/23 19:19 09/18/23 20:54 Temperature 97.6 F Pulse Rate 73 78 74 Respiratory Rate 16 18 Blood Pressure 115/73 Pulse Oximetry 97 Oxygen Delivery 09/18/23 21:27 09/18/23 20:00 09/19/23 06:00 Temperature 97.8 F 98.1 F Pulse Rate 71 71 67 Respiratory Rate 20 20 18 Blood Pressure 151/74 H 160/77 H Pulse Oximetry 99 99 98 Oxygen Delivery Room Air Intake/Output Intake/Output: Intake & Output 09/16/23 09/17/23 09/18/23 09/19/23 23:59 23:59 23:59 23:59 Intake Total 1300 1993 2290 1300 Balance 1300 1993 2290 1300 Meds/Results Medications: Active Medications Generic Name Dose Route Start Last Admin Trade Name Freq PRN Reason Stop Dose Admin Acetaminophen 650 mg 09/16/23 09:44 09/18/23 16:54 Acetaminophen 325 Mg Tablet PO 650 mg Q4H PRN Administrat
[2023-09-19 07:54] LABS: Glucose Point of Care 167 mg/dl (65-105)
[2023-09-19] MEDS: carvediloL 12.5 MG TABLET PO ×2 (08:42→20:33)
[2023-09-19] MEDS: EZETIMIBE 10 MG TABLET PO (08:42)
[2023-09-19] MEDS: DOXYCYCLINE HYCLATE 100 MG TABLET PO ×2 (08:42→20:33)
[2023-09-19] MEDS: TAMSULOSIN HCL 0.4 MG CAPSULE PO (08:42)
[2023-09-19] MEDS: ACETAMINOPHEN 325 MG TABLET 650 MG PO (08:42)
[2023-09-19] MEDS: AMIODARONE HCL 200 MG TABLET PO (08:42)
[2023-09-19] MEDS: GABAPENTIN 300 MG CAPSULE PO ×3 (08:42→17:05)
[2023-09-19] MEDS: APIXABAN 5 MG TABLET PO ×2 (08:42→20:33)
[2023-09-19] MEDS: FENOFIBRATE 160 MG TABLET PO (08:42)
[2023-09-19] MEDS: DOCUSATE SODIUM 100 MG CAPSULE PO (08:43)
[2023-09-19 09:14] VITALS: O2SAT 96
[2023-09-19 09:30] LABS: Basophils Percent Auto 0.7 % (0.2-1.2); Eosinophils Absolute Auto 0.2 K/mm3 (0-0.3); Eosinophils Percent Auto 5.6 % (0-4.4); Hematocrit 31.1 % (37.0-47.0); Hemoglobin 9.4 g/dL (12.0-15.0); Immature Granulocyte Absolute 0.03 K/mm3 (0.00-0.031); Lymphocytes Absolute Auto 0.53 K/mm3 (0.9-3.2); Lymphocytes Percent Auto 17.5 % (18.3-44.2); Mean Corpuscular HGB Conc 30.2 g/dl (32-36); Mean Corpuscular Hemoglobin 32.2 pg (26-34); Mean Corpuscular Volume 106.5 fl (80-100); Mean Platelet Volume 9.6 fl (7.4-10.4); Monocytes Absolute Auto 0.2 K/mm3 (0.1-0.6); Monocytes Percent Auto 7.9 % (2.6-8.5); Neutrophils Percent Auto 67.3 % (45.5-73.1); Platelet Count Result 209 k/mm3 (150-375); Red Blood Count 2.92 M/mm3 (4.2-5.4); Red Cell Distribution Width 15.3 % (11.5-14.5)
[2023-09-19 09:45] LABS: Anion Gap 8 mmol/L (8-16); Blood Urea Nitrogen 31 mg/dL (7-17); Calcium 8.3 mg/dL (8.4-10.2); Carbon Dioxide 23 mmol/L (22-30); Chloride 107 mmol/L (98-107); Estimated CRCL calculation 25 ml/min; Estimated Glomerular Filt Rate 23; Glucose 338 mg/dL (65-110); Potassium 4.7 mmol/L (3.4-5.0); Sodium 138 mmol/L (137-145)
[2023-09-19 12:13] LABS: Glucose Point of Care 194 mg/dl (65-105)
[2023-09-19 14:00] VITALS: BP 158/75; PULSE 67; RESP 18; TEMP 36.7; O2SAT 97
--- NOTE | 2023-09-19 16:15 | PM.CNNEP ---
Assessment and Plan Assessment and plan (1) Chronic kidney disease, stage IV (severe): Code(s): N18.4 - Chronic kidney disease, stage 4 (severe) Status: Acute Assessment and Plan: evidence of CKD that dates back to 2018 with slow progression of disease... initially had been ~ 1.4 - 1.8mg/dl then augustine to ~ 1.9 - 2.1mg/dl since early 2021 more recently, running ~ 2.0 - 2.5mg/dl due to HTN, DM, vascular disease, SUZANNE, and age-related change based on outpatient evaluation fluctuating creatinine likely related to infection (pneumonia) follows with Dr. Carrillo for management of CKD (2) Pneumonia: Code(s): J18.9 - Pneumonia, unspecified organism Status: Acute Assessment and Plan: imaging with pulmonary infiltrates to suggest this on antibiotic therapy as outlined follow respiratory status -- breathing seems better (3) Essential hypertension: Code(s): I10 - Essential (primary) hypertension Status: Chronic Assessment and Plan: reasonable control since admission a bit elevated by recent check follow trend of hemodynamics (4) SUZANNE (obstructive sleep apnea): Code(s): G47.33 - Obstructive sleep apnea (adult) (pediatric) Status: Acute Assessment and Plan: continue use of CPAP (5) Diabetes: Code(s): E11.9 - Type 2 diabetes mellitus without complications Status: Chronic Assessment and Plan: follow accuchecks glycemic control per hospitalists I will continue follow the patient with you while she remains hospitalized and make further recommendations as needed. Thank you for allowing me to participate in the care this patient. History of Present Illness Reason for Consult Consult date: 09/19/23 Reason for consult: chronic renal failure Chief Complaint Chief complaint: comm acquired pneumonia History of Present Illness Narrative: The patient is 78-year-old female with a past medical history as outlined below who presented to [facility] Emergency room at the behest of her primary care physician due to complaints of a sore throat and cough. The patient reports she has been having issues with cough in association productive green sputum, sneezing, and rhinorrhea that has been going on for last several days. Initially, the patient thought these were just symptoms of allergies but they have persisted despite conservative therapy. She reports no overt fevers or chills or any other symptoms with regard to chest pain, nausea, vomiting, diarrhea, myalgias, palpitations, or dizziness. When she called her primary care physician to related symptoms, he revised her to come to the emergency room for further testing including Covid as she has a history of this in the past. Further workup and evaluation in the emergency room demonstrated the patient to be hemodynamically stable and in no respiratory distress. Routine blood test demonstrated a mildly elevated creatinine above her baseline and a chest x-ray that was highly suggestive of pneumonia versus mild pulmonary edema. Clinically, she apparently looked somewhat volume depleted so was given some IV fluids and after appropriate cultures were obtained, was started on IV antibiotic therapy with subsequent admission to the hospital for further evaluation and therapy. Since her admission, her creatinine seems to have stabilized at around 2.1 mg/dL and her respiratory status seems to have greatly improved with less cough and productive sputum with ongoing IV antibiotic therapy. Renal consultation was requested due to her known history of chronic kidney disease. The patient normally follows with Dr. Jayy Carrillo in the office for management of her chronic kidney disease. In the last year, her creatinine has fluctuated anywhere from 1.9 - 2.1 mg/dL but more recently has been running around 2.0-2.5 mg/dL. Outpatient evaluation indicates that her chronic kidney disease is secondary to
[2023-09-19 17:01] LABS: Glucose Point of Care 145 mg/dl (65-105)
[2023-09-19] MEDS: levoFLOXacin 750 MG/D5W 150 ML 750 MG/150 ML BAG 100 MG IVPB (17:05)
[2023-09-19 20:00] VITALS: PULSE 80; RESP 18; O2SAT 97
[2023-09-19 20:33] VITALS: PULSE 80
[2023-09-19] MEDS: MELATONIN 5 MG TABLET PO (20:33)
[2023-09-19] MEDS: ATORVASTATIN 40 MG TABLET 80 MG PO (20:35)
[2023-09-19 21:26] LABS: Glucose Point of Care 184 mg/dl (65-105)
[2023-09-19 22:00] VITALS: BP 134/59; PULSE 74; RESP 18; TEMP 36.9; O2SAT 95
[2023-09-19] MEDS: ONDANSETRON INJ 4 MG/2 ML VIAL IV PUSH (23:20)
[2023-09-20] VITALS (12 sets, daily range): BP systolic 130–156; BP diastolic 71–77; PULSE 64–88; RESP 18–20; TEMP 36.1–36.3; O2SAT 94–98
[2023-09-20] MEDS: ALBUTEROL SULFATE (*SP) AEROSOL 1 PUFF 2 PUFF INHALATION ×2 (00:36→07:19)
[2023-09-20] MEDS: ACETAMINOPHEN 325 MG TABLET 650 MG PO (02:24)
[2023-09-20] MEDS: LACTATED RINGERS 1,000 ML 75 ML IV CONT (06:08)
[2023-09-20 07:57] LABS: Basophils Percent Auto 0.5 % (0.2-1.2); Eosinophils Absolute Auto 0.2 K/mm3 (0-0.3); Hemoglobin 9.4 g/dL (12.0-15.0); Immature Granulocyte Absolute 0.05 K/mm3 (0.00-0.031); Immature Granulocyte Percent A 1.2 % (0-0.5); Lymphocytes Absolute Auto 0.85 K/mm3 (0.9-3.2); Lymphocytes Percent Auto 21.1 % (18.3-44.2); Mean Corpuscular HGB Conc 30.3 g/dl (32-36); Mean Corpuscular Hemoglobin 32.1 pg (26-34); Mean Corpuscular Volume 105.8 fl (80-100); Mean Platelet Volume 9.5 fl (7.4-10.4); Monocytes Absolute Auto 0.3 K/mm3 (0.1-0.6); Neutrophils Absolute Auto 2.6 K/mm3 (1.3-6.7); Neutrophils Percent Auto 65.2 % (45.5-73.1); Platelet Count Result 221 k/mm3 (150-375); Red Blood Count 2.93 M/mm3 (4.2-5.4); Red Cell Distribution Width 15.1 % (11.5-14.5)
[2023-09-20] MEDS: GABAPENTIN 300 MG CAPSULE PO ×3 (08:06→16:54)
[2023-09-20] MEDS: FENOFIBRATE 160 MG TABLET PO (08:06)
[2023-09-20] MEDS: AMIODARONE HCL 200 MG TABLET PO (08:06)
[2023-09-20] MEDS: guaiFENesin/DEXTROMETHORPHAN 10 ML UDC PO ×3 (08:06→21:35)
[2023-09-20] MEDS: APIXABAN 5 MG TABLET PO ×2 (08:06→21:34)
[2023-09-20] MEDS: TAMSULOSIN HCL 0.4 MG CAPSULE PO (08:08)
[2023-09-20] MEDS: carvediloL 12.5 MG TABLET PO ×2 (08:08→21:34)
[2023-09-20] MEDS: DOCUSATE SODIUM 100 MG CAPSULE PO (08:08)
[2023-09-20] MEDS: EZETIMIBE 10 MG TABLET PO (08:08)
[2023-09-20] MEDS: DOXYCYCLINE HYCLATE 100 MG TABLET PO (08:08)
[2023-09-20 08:13] LABS: Alanine Aminotransferase 13 U/L (6-35); Alkaline Phosphatase 61 U/L (38-126); Anion Gap 7 mmol/L (8-16); Aspartate Amino Transferase 19 U/L (14-36); Bilirubin,Total 0.4 mg/dL (0.2-1.3); Blood Urea Nitrogen 30 mg/dL (7-17); Calcium 8.5 mg/dL (8.4-10.2); Carbon Dioxide 19 mmol/L (22-30); Chloride 111 mmol/L (98-107); Estimated CRCL calculation 25 ml/min; Estimated Glomerular Filt Rate 23; Glucose 188 mg/dL (65-110); Sodium 137 mmol/L (137-145)
[2023-09-20 08:25] LABS: Glucose Point of Care 187 mg/dl (65-105)
[2023-09-20 08:57] LABS: Macrocytosis 1+ (NORMAL); Platelet Estimate Adequate (Adequate); Schistocytes None Seen (NORMAL)
[2023-09-20] MEDS: HYDROcodone/acetaminophen (*CRX) 10-325 MG TABLET 1 TAB PO ×2 (10:45→18:35)
[2023-09-20 11:54] LABS: Glucose Point of Care 203 mg/dl (65-105)
[2023-09-20] MEDS: INSULIN ASPART (*BKC) 100 UNITS/ML SUB-Q (11:59)
--- NOTE | 2023-09-20 12:11 | P.PNNP_ITS ---
Progress Note: A&P Assessment and Plan (1) Chronic kidney disease, stage IV (severe): Code(s): N18.4 - Chronic kidney disease, stage 4 (severe) Status: Chronic Assessment and Plan: * evidence of CKD that dates back to 2018 with slow progression of disease... * initially had been ~ 1.4 - 1.8mg/dl * then augustine to ~ 1.9 - 2.1mg/dl since early 2021 * more recently, running ~ 2.0 - 2.5mg/dl * due to HTN, DM, vascular disease, SUZANNE, and age-related change based on outpatient evaluation * fluctuating creatinine likely related to infection (pneumonia) * follows with Dr. Carrillo for management of CKD (2) Pneumonia: Code(s): J18.9 - Pneumonia, unspecified organism Status: Acute Assessment and Plan: * imaging with pulmonary infiltrates to suggest this * on antibiotic therapy as outlined * follow respiratory status -- breathing seems better (3) Essential hypertension: Code(s): I10 - Essential (primary) hypertension Status: Chronic Assessment and Plan: * reasonable control since admission * a bit elevated by recent check * follow trend of hemodynamics (4) SUZANNE (obstructive sleep apnea): Code(s): G47.33 - Obstructive sleep apnea (adult) (pediatric) Status: Acute Assessment and Plan: * continue use of CPAP (5) Diabetes: Code(s): E11.9 - Type 2 diabetes mellitus without complications Status: Chronic Assessment and Plan: * follow accuchecks * glycemic control per hospitalists Will continue to follow. Subjective Date/time seen: 09/20/23 12:11 Interval history: Follow-up for chronic kidney disease. Seems to be doing reasonbly well at thet adonay of my visit; breathing/respiratory status isstable if not better and renal fucntion remains stable as well; no issues/evetns overnight or earlier this AM. Exam Narrative: General: elderly but WD/WN female in NAD Heart: normal S1 and S2; no rub Lungs: clear but diminished at bases Abdomen: soft, nontender, nondistended, positive bowel sounds Extremities: no cyanosis or clubbing; no edema Skin: warm and dry Objective Data Vital Signs Vital Signs: Vital Signs Temp Pulse Resp BP Pulse Ox O2 Del Method 09/20/23 12:00 96.9 F L 65 18 146/74 H 98 09/20/23 08:00 Room Air 09/20/23 08:08 72 09/20/23 08:06 72 09/20/23 07:25 88 20 09/20/23 07:25 88 20 94 Room Air 09/20/23 06:00 97.2 F L 64 20 156/77 H 94 09/20/23 00:36 80 18 09/19/23 22:00 98.5 F 74 18 134/59 L 95 09/19/23 20:00 80 18 97 Room Air 09/19/23 20:33 80 Intake/Output Intake/Output: Intake & Output 09/17/23 09/18/23 09/19/23 09/20/23 23:59 23:59 23:59 23:59 Intake Total 1993 8679 9617 0890 Balance 1993 9580 6736 9164 Meds/Results Medications: Active Medications Generic Name Dose Route Start Last Admin Trade Name Freq PRN Reason Stop Dose Admin Acetaminophen 650 mg 09/16/23 09:44 09/20/23 02:24 Acetaminophen 325 Mg Tablet PO 650 mg Q4H PRN Administration Mild Pain (1-3) Or Fever Hydrocodone Bitart/Acetaminophen 1 tab 09/07
--- NOTE | 2023-09-20 12:11 | PM.PNNEP ---
Progress Note: A&P Assessment and Plan (1) Chronic kidney disease, stage IV (severe): Code(s): N18.4 - Chronic kidney disease, stage 4 (severe) Status: Chronic Assessment and Plan: evidence of CKD that dates back to 2018 with slow progression of disease... initially had been ~ 1.4 - 1.8mg/dl then augustine to ~ 1.9 - 2.1mg/dl since early 2021 more recently, running ~ 2.0 - 2.5mg/dl due to HTN, DM, vascular disease, SUZANNE, and age-related change based on outpatient evaluation fluctuating creatinine likely related to infection (pneumonia) follows with Dr. Carrillo for management of CKD (2) Pneumonia: Code(s): J18.9 - Pneumonia, unspecified organism Status: Acute Assessment and Plan: imaging with pulmonary infiltrates to suggest this on antibiotic therapy as outlined follow respiratory status -- breathing seems better (3) Essential hypertension: Code(s): I10 - Essential (primary) hypertension Status: Chronic Assessment and Plan: reasonable control since admission a bit elevated by recent check follow trend of hemodynamics (4) SUZANNE (obstructive sleep apnea): Code(s): G47.33 - Obstructive sleep apnea (adult) (pediatric) Status: Acute Assessment and Plan: continue use of CPAP (5) Diabetes: Code(s): E11.9 - Type 2 diabetes mellitus without complications Status: Chronic Assessment and Plan: follow accuchecks glycemic control per hospitalists Will continue to follow. Subjective Date/time seen: 09/20/23 12:11 Interval history: Follow-up for chronic kidney disease. Seems to be doing reasonbly well at thet adonay of my visit; breathing/respiratory status isstable if not better and renal fucntion remains stable as well; no issues/evetns overnight or earlier this AM. Exam Narrative: General: elderly but WD/WN female in NAD Heart: normal S1 and S2; no rub Lungs: clear but diminished at bases Abdomen: soft, nontender, nondistended, positive bowel sounds Extremities: no cyanosis or clubbing; no edema Skin: warm and dry Objective Data Vital Signs Vital Signs: Vital Signs Temp Pulse Resp BP Pulse Ox O2 Del Method 09/20/23 12:00 96.9 F L 65 18 146/74 H 98 09/20/23 08:00 Room Air 09/20/23 08:08 72 09/20/23 08:06 72 09/20/23 07:25 88 20 09/20/23 07:25 88 20 94 Room Air 09/20/23 06:00 97.2 F L 64 20 156/77 H 94 09/20/23 00:36 80 18 09/19/23 22:00 98.5 F 74 18 134/59 L 95 09/19/23 20:00 80 18 97 Room Air 09/19/23 20:33 80 Intake/Output Intake/Output: Intake & Output 09/17/23 09/18/23 09/19/23 09/20/23 23:59 23:59 23:59 23:59 Intake Total 1993 0475 5349 244 Balance 1993 3531 5540 3458 Meds/Results Medications: Active Medications Generic Name Dose Route Start Last Admin Trade Name Freq PRN Reason Stop Dose Admin Acetaminophen 650 mg 09/16/23 09:44 09/20/23 02:24 Acetaminophen 325 Mg Tablet PO 650 mg Q4H PRN Administration Mild Pain (1-3) Or Fever Hydrocodone Bitart/Acetaminophen 1 tab 09/20/23 10:39 09/20/23 10:45 Hydrocodone/Acetaminophen (*Crx) 10-325 Mg Tablet PO 1 tab Q8H PRN Administration Pain (Scale Score 4-6) Albuterol 2 puff 09/16/23 09:44 09/20/23 07:19 Albuterol Sulfate (*Sp) Aerosol 1 Puff INHALATION 2 puff Q4-6H PRN Administration shortness of breath or wheezing Amiodarone HCl 200 mg 09/16/23 09:00 09/20/23 08:06 Amiodarone Hcl 200 Mg Tablet PO 200 mg DAILY CODY Administration Apixaban 5 mg 09/16/23 09:00 09/20/23 08:06 Apixaban 5 Mg Tablet PO 5 mg Q12HR CODY Administration Atorvastatin Calcium 80 mg 09/16/23 21:00 09/19/23 20:35 Atorvastatin 40 Mg Tablet PO 80 mg HS CODY Administration Carvedilol 12.5 mg 09/15/23 21:00 09/20/23 08:08 Carvedilol 12.5 Mg Tablet PO 12.5 mg Q12H CODY Administra
[2023-09-20 16:25] LABS: Glucose Point of Care 167 mg/dl (65-105)
--- NOTE | 2023-09-20 18:45 | PM.IMPN ---
Progress Note: A&P Assessment and Plan (1) Pneumonia: Code(s): J18.9 - Pneumonia, unspecified organism Status: Acute Plan pneumonia being treated adequately. plan to send home tomorrow on PO abx. start duonebs Q6HR for her cough and transient wheeze, this will help her ongoing. she agrees with this full code. Subjective Date/time seen: 09/20/23 18:45 Interval history: NAOE. pt denies shortness of breath. she feels overall better. still has a cough without sputum Review of Systems Review of Systems: All systems reviewed & are unremarkable except as noted in HPI and below Exam Const: General: comfortable Eyes: Pupils: Equal, round and reactive pupils present Resp: Effort & Inspection: normal respiratory effort Other: dminished breath sound, deep inspiration produces cough with wheeze Cardio: Rate: regular rate Rhythm: regular rhythm GI: GI Palp: Yes Soft to palpation Extrem: General: no edema Objective Data Vital Signs Vital Signs: Vital Signs - 24 hr 09/19/23 20:33 09/19/23 20:00 09/19/23 22:00 Temperature 98.5 F Pulse Rate 80 80 74 Respiratory Rate 18 18 Blood Pressure 134/59 L Pulse Oximetry 97 95 Oxygen Delivery Room Air 09/20/23 00:36 09/20/23 06:00 09/20/23 07:25 Temperature 97.2 F L Pulse Rate 80 64 88 Respiratory Rate 18 20 20 Blood Pressure 156/77 H Pulse Oximetry 94 94 Oxygen Delivery Room Air 09/20/23 07:25 09/20/23 08:06 09/20/23 08:08 Temperature Pulse Rate 88 72 72 Respiratory Rate 20 Blood Pressure Pulse Oximetry Oxygen Delivery 09/20/23 08:00 09/20/23 14:00 Temperature 96.9 F L Pulse Rate 65 Respiratory Rate 18 Blood Pressure 146/74 H Pulse Oximetry 98 Oxygen Delivery Room Air Intake/Output Intake/Output: Intake & Output 09/17/23 09/18/23 09/19/23 09/20/23 23:59 23:59 23:59 23:59 Intake Total 1993 2290 4820 2568 Balance 1993 2290 4820 2568 Meds/Results Medications: Active Medications Generic Name Dose Route Start Last Admin Trade Name Freq PRN Reason Stop Dose Admin Acetaminophen 650 mg 09/16/23 09:44 09/20/23 02:24 Acetaminophen 325 Mg Tablet PO 650 mg Q4H PRN Administration Mild Pain (1-3) Or Fever Hydrocodone Bitart/Acetaminophen 1 tab 09/20/23 10:39 09/20/23 18:35 Hydrocodone/Acetaminophen (*Crx) 10-325 Mg Tablet PO 1 tab Q8H PRN Administration Pain (Scale Score 4-6) Albuterol 2 puff 09/16/23 09:44 09/20/23 07:19 Albuterol Sulfate (*Sp) Aerosol 1 Puff INHALATION 2 puff Q4-6H PRN Administration shortness of breath or wheezing Amiodarone HCl 200 mg 09/16/23 09:00 09/20/23 08:06 Amiodarone Hcl 200 Mg Tablet PO 200 mg DAILY CODY Administration Apixaban 5 mg 09/16/23 09:00 09/20/23 08:06 Apixaban 5 Mg Tablet PO 5 mg Q12HR CODY Administration Atorvastatin Calcium 80 mg 09/16/23 21:00 09/19/23 20:35 Atorvastatin 40 Mg Tablet PO 80 mg HS CODY Administration Carvedilol 12.5 mg 09/15/23 21:00 09/20/23 08:08 Carvedilol 12.5 Mg Tablet PO 12.5 mg Q12H CODY Administration Dextrose 12.5 gm 09/17/23 11:44 Dextrose 50% 25 Gm/50 Ml Syringe IV PUSH PRN PRN Hypoglycemia Protocol Dicyclomine HCl 10 mg 09/15/23 23:24 09/17/23 08:30 Dicyclomine Hcl 10 Mg Capsule PO 10 mg TID PRN Administration Abdominal Discomfort Docusate Sodium 100 mg 09/16/23 09:00 09/20/23 08:08 Docusate Sodium 100 Mg Capsule PO 100 mg DAILY CODY Administration Ezetimibe 10 mg 09/16/23 09:00 09/20/23 08:08 Ezetimibe 10 Mg Tablet PO 10 mg DAILY CODY Administration Ergocalciferol 50,000 units 09/21/23 09:00 Ergocalciferol 50,000 Units Capsule PO WEEKLY CODY Fenofibrate 160 mg 09/16/23 09:00 09/20/23 08:06 Fenofibrate 160 Mg Tablet PO 160 mg DAILY CODY Administration Gabapentin 300 mg 09/16/23 09:00 09/20/23 16:54 Gabapentin 300 Mg Capsule PO 300
[2023-09-20] MEDS: IPRATROPIUM BR 0.02% INH SOLN 0.5 MG/2.5 ML VIAL INHALATION (19:07)
[2023-09-20] MEDS: LEVALBUTEROL NEB 1.25 MG/3 ML INHALATION (19:07)
[2023-09-20 19:53] LABS: Glucose Point of Care 249 mg/dl (65-105)
[2023-09-20] MEDS: ATORVASTATIN 40 MG TABLET 80 MG PO (21:34)
[2023-09-20] MEDS: MELATONIN 5 MG TABLET PO (21:35)
[2023-09-21] VITALS (8 sets, daily range): BP systolic 148–170; BP diastolic 71–72; PULSE 65–69; RESP 16–18; TEMP 36.6; O2SAT 95–100
[2023-09-21] MEDS: guaiFENesin/DEXTROMETHORPHAN 10 ML UDC PO ×2 (04:29→08:14)
[2023-09-21 06:39] LABS: Hematocrit 28.7 % (37.0-47.0); Hemoglobin 8.6 g/dL (12.0-15.0); Mean Corpuscular Hemoglobin 32.2 pg (26-34); Mean Corpuscular Volume 107.5 fl (80-100); Mean Platelet Volume 9.7 fl (7.4-10.4); Platelet Count Result 217 k/mm3 (150-375); Red Blood Count 2.67 M/mm3 (4.2-5.4); White Blood Count 4.2 K/mm3 (4.5-10.0)
[2023-09-21 06:55] LABS: Anion Gap 6 mmol/L (8-16); Blood Urea Nitrogen 31 mg/dL (7-17); Calcium 8.2 mg/dL (8.4-10.2); Carbon Dioxide 22 mmol/L (22-30); Chloride 109 mmol/L (98-107); Estimated CRCL calculation 25 ml/min; Estimated Glomerular Filt Rate 23; Glucose 200 mg/dL (65-110); Magnesium 1.9 mg/dL (1.6-2.3); Potassium 4.7 mmol/L (3.4-5.0); Sodium 137 mmol/L (137-145)
[2023-09-21] MEDS: LEVALBUTEROL NEB 1.25 MG/3 ML INHALATION ×2 (07:27→13:44)
[2023-09-21] MEDS: IPRATROPIUM BR 0.02% INH SOLN 0.5 MG/2.5 ML VIAL INHALATION ×2 (07:27→13:44)
[2023-09-21] MEDS: LACTATED RINGERS 1,000 ML 30 ML IV CONT (07:49)
[2023-09-21 08:05] LABS: Glucose Point of Care 186 mg/dl (65-105)
[2023-09-21] MEDS: GABAPENTIN 300 MG CAPSULE PO ×2 (08:05→12:17)
[2023-09-21] MEDS: DOCUSATE SODIUM 100 MG CAPSULE PO (08:05)
[2023-09-21] MEDS: TAMSULOSIN HCL 0.4 MG CAPSULE PO (08:05)
[2023-09-21] MEDS: EZETIMIBE 10 MG TABLET PO (08:05)
[2023-09-21] MEDS: ERGOCALCIFEROL 50,000 UNITS CAPSULE 50000 UNITS PO (08:05)
[2023-09-21] MEDS: FENOFIBRATE 160 MG TABLET PO (08:05)
[2023-09-21] MEDS: AMIODARONE HCL 200 MG TABLET PO (08:06)
[2023-09-21] MEDS: carvediloL 12.5 MG TABLET PO (08:06)
[2023-09-21] MEDS: APIXABAN 5 MG TABLET PO (08:07)
[2023-09-21] MEDS: HYDROcodone/acetaminophen (*CRX) 10-325 MG TABLET 1 TAB PO (08:10)
--- NOTE | 2023-09-21 09:54 | PM.DS ---
DS: Admitting Diagnosis Discharge Date 09/21/23 Admitting Diagnosis community acquired pneumonia DS: Discharge Diagnosis Discharge Diagnosis (1) Pneumonia: Code(s): J18.9 - Pneumonia, unspecified organism Status: Acute DS: Summary Hospital Course Hospital Course: Pt presented with shortness of breath, cough, and weakness. She was diagnosed with community acquired pneumonia and treated with 5 days of levofloxacin and a few days of doxycycline. On 09/21 she is feeling better, back to her baseline status. She will follow up with PCP within 2 weeks. no changes in her medications. she knows if she has worsening of symptoms again to present to ER right away More than 30 minutes spent on discharge planning and documentation. Time Spent with Patient Time attestation: Total time spent providing and/or coordinating discharge services: Exam Const: General: cooperative and no acute distress Resp: Effort & Inspection: normal respiratory effort Auscultation: clear to auscultation bilaterally Cardio: Rate: regular rate Rhythm: regular rhythm Heart sounds: S1 normal heart sound present and S2 normal heart sound present GI: GI Palp: No abdominal tenderness Auscultation: normal bowel sounds DS: Data Data Completed and Pending Labs on day of discharge: Labs from last 24 hours 09/21/23 09/21/23 09/20/23 07:51 05:37 19:47 WBC 4.2 L RBC 2.67 L Hgb 8.6 L Hct 28.7 L MCV 107.5 H MCH 32.2 MCHC 30.0 L RDW 15.0 H Plt Count 217 MPV 9.7 Sodium 137 Potassium 4.7 Chloride 109 H Carbon Dioxide 22 Anion Gap 6 L BUN 31 H Creatinine 2.10 H Estim Creat Clear Calc 25 Estimated GFR 23 L Glucose 200 H POC Capillary Glucose 186 H 249 H Calcium 8.2 L Magnesium 1.9 09/20/23 09/20/23 16:17 11:49 WBC RBC Hgb Hct MCV MCH MCHC RDW Plt Count MPV Sodium Potassium Chloride Carbon Dioxide Anion Gap BUN Creatinine Estim Creat Clear Calc Estimated GFR Glucose POC Capillary Glucose 167 H 203 H Calcium Magnesium Discharge Plan Discharge Attending physician on discharge: Beth Goel Consulting providers: Annie Gonzalez Discharging Clinician: Beth Goel Patient Disposition: Home, Self-Care Activity: may shower Diet: heart healthy and diabetic Patient Instructions: Antibiotic Form, Apixaban (By mouth), Heart Failure (GEN) Stand Alone Forms: General Discharge Information Follow-up/Referrals: Oh Goode MD [Primary Care Provider] - 2 Weeks Discharge Medications: Continued gabapentin 300 mg capsule 300 mg PO TID (DME) comp.stocking,knee,long,medium Misc See Rx Instructions .Route Qty: 12 0RF Rx Instructions: As directed amiodarone 200 mg tablet 200 mg PO DAILY Qty: 30 5RF furosemide 20 mg tablet 40 mg PO QAM Qty: 60 5RF carvedilol 12.5 mg tablet 12.5 mg PO Q12H Qty: 60 5RF glucagon 3 mg/actuation spray,non-aerosol 3 mg intranasal ONCE Qty: 2 4RF Rx Instructions: as a single dose; may repeat once in 15 minutes if no response glucose [Dex4 Glucose] 4 gram tablet,chewable 16 g PO Q15M PRN (Reason: hypoglycemia) Qty: 60 1RF Rx Instructions: until symptoms of low blood sugar are controlled (DME) pen needle, diabetic [CareFine Pen Needle] 32 gauge x 5/32 needle See Rx Instructions .Route Qty: 100 11RF Rx Instructions: use to take insulin 4 times a day albuterol sulfate 90 mcg/actuation HFA aerosol inhaler 1 - 2 puff inhalation Q4-6H PRN (Reason: shortness of breath or wheezing) Qty: 8.5 2RF dicyclomine 10 mg capsule 10 mg PO TID PRN (Reason: Abdominal Discomfort) ergocalciferol (vitamin D2) 1,250 mcg (50,000 unit) Capsule 1,250 mcg PO WEEKLY Patient Comments: takes on tuesday but did not recieve this week Rx Instructions: on
[2023-09-21 11:21] LABS: Glucose Point of Care 198 mg/dl (65-105)
[2023-09-21] MEDS: INSULIN ASPART (*BKC) 100 UNITS/ML SUB-Q (12:11)
== END 2023-09-21 15:10 | disposition home or self-care (01) | DRG 194 ==
LOC: ANHED 14:22 → ANH3MEDSUR 17:48
PROVIDERS: Emergency Medicine; Hospitalist; Internal Medicine Nephrology; Student in an Organized Health Care Education/Training Program; Admitting Provider Internal Medicine; Emergency Provider Student in an Organized Health Care Education/Training Program; PCP Family Medicine; Visit Provider General Practice
DX: J18.9 Pneumonia, unspecified organism (principal); I13.0 Hypertensive heart and chronic kidney disease with heart failure and stage 1 through stage 4 chronic kidney disease, or unspecified chronic kidney disease; I50.32 Chronic diastolic (congestive) heart failure; N17.9 Acute kidney failure, unspecified; N18.4 Chronic kidney disease, stage 4 (severe); F41.8 Other specified anxiety disorders; E11.42 Type 2 diabetes mellitus with diabetic polyneuropathy; E11.22 Type 2 diabetes mellitus with diabetic chronic kidney disease; E55.9 Vitamin D deficiency, unspecified; E78.5 Hyperlipidemia, unspecified; K21.9 Gastro-esophageal reflux disease without esophagitis; G47.33 Obstructive sleep apnea (adult) (pediatric); I48.0 Paroxysmal atrial fibrillation; M19.90 Unspecified osteoarthritis, unspecified site; Z99.89 Dependence on other enabling machines and devices; Z90.49 Acquired absence of other specified parts of digestive tract; Z90.710 Acquired absence of both cervix and uterus; Z20.822 Contact with and (suspected) exposure to COVID-19; Z23 Encounter for immunization; Z86.16 Personal history of COVID-19; Z87.01 Personal history of pneumonia (recurrent); Z79.4 Long term (current) use of insulin; Z86.73 Personal history of transient ischemic attack (TIA), and cerebral infarction without residual deficits; Z79.01 Long term (current) use of anticoagulants
CPT/HCPCS: 36415; 71045; 71046; 80048; 80053; 81001; 82948; 83036; 83735; 83880; 84484; 85025; 85027; 85610; 85730; 87086; 87636; 87651; 90471; 90694; 93005; 94640; 96361; 96365; 99285; A9270; G0008; G0378; J1815; J1956; J2405; J7040; J7120

== ENCOUNTER 2023-09-26 10:55 | Inpatient (IN) | payer MEDICARE, SELFPAY ==
[2023-09-26] VITALS (15 sets, daily range): BP systolic 153–197; BP diastolic 69–95; PULSE 63–76; RESP 16–20; TEMP 36.3–36.6; O2SAT 96–99; BMI 36.0
--- NOTE | ~2023-09-26 | XR_ITS ---
EXAMINATION: XR chest 2V DATE: 09/26/2023 12:56 INDICATION: Pneumonia with worsening cough and shortness of breath TECHNIQUE: frontal and lateral views of the chest were obtained. COMPARISON: Chest radiograph dated 09/19/2023 and 09/25/[address] dated 03/11/2022 FINDINGS: Unchanged small left pericardial fat pad extending to the left costophrenic angle and linear discoid atelectasis/scarring the left lower lung zone. The prior perihilar opacities of resolved. No new airs pace opacities, pulmonary edema, pleural effusion or pneumothorax. Mild cardiomegaly. Visualized bone s and soft tissues are unremarkable. IMPRESSION: 1. Chronic mild atelectasis/scarring the left lower lung zone with interval resolution of prior bilat eral perihilar opacities. 2. Mild cardiomegaly. Reviewed, dictated and finalized at location A. NS PLANTER IMPRESSION: 1. Chronic mild atelectasis/scarring the left lower lung zone with interval res olution of prior bilateral perihilar opacities. 2. Mild cardiomegaly.
--- NOTE | ~2023-09-26 | XR_ITS ---
MODIFIED ESOPHAGRAM HISTORY: Dysphagia with pharyngeal phase aspiration on prior modified swallow study TECHNIQUE: Modified barium esophagram was performed on 09/30/2023. I administered fluoroscopy and per formed the exam with speech pathologist. Patient was seated for lateral fluoroscopic imaging for ing estion of thin liquids, pudding, solids and quantified amounts, followed by thin liquids in uncontrol led amounts. This was recorded on tape. 2 fluoroscopic spot images were also recorded. The DAP for th is procedure was 1.9 Gycm2. The amount of fluoroscopy time used during this procedure was 2.2 minutes . FINDINGS: Oral stage: Adequate function. Pharyngeal stage: Reduced laryngeal elevation and tongue base retraction. There is laryngeal penetrat ion without aspiration with thin and mildly thickened liquids. There was no improvement with head fle xion. Cervical/esophageal stage: Adequate function. IMPRESSION: Pharyngeal dysphagia with laryngeal penetration without aspiration with thin and mildly t hickened liquid consistencies. Please correlate with speech pathologist findings and specific feedin g recommendations. Reviewed, dictated and finalized at location A. RVISOR WINTER IMPRESSION: Pharyngeal dysphagia with laryngeal penetration without aspiration with thin and mildly thickened liquid consistencies. Please correlate with spe ech pathologist findings and specific feeding recommendations.
--- NOTE | ~2023-09-26 | MR_ITS ---
EXAMINATION: MR brain/brain stem wo con DATE: 10/01/2023 15:01 INDICATION: swallowing and speech defects. TECHNIQUE: Magnetic resonance imaging (MRI) of the brain and brainstem was performed without intraven ous contrast. Sequences included sagittal and axial T1-weighted SE, axial diffusion-weighted FS EPI A SSET, axial T2*-weighted GRE, axial T2-weighted FLAIR Propeller, and axial T2-weighted Propeller. Nick arent diffusion coefficient (ADC) maps were created. COMPARISON: CT brain 03/30/2023; MR brain 02/23/2021. FINDINGS: Tiny foci of restricted diffusion in the left posterior midbrain (axial DWI and ADC sequences images 12) and right thalamus (axial DWI and ADC sequences images /). Focal encephalomalacia in the l eft posterior frontal lobe. Tiny focal old right cerebellar infarcts and bilateral basal ganglia lacu deven infarcts. No MRI evidence of hemorrhage or extra-axial collection. No suspicious foci of suscepti bility to suggest prior intraparenchymal hemorrhage. Scattered foci of white matter hyperintensity, l ikely representing mild small vessel ischemic disease. Mild generalized parenchymal volume loss. The basilar cisterns are patent. Flow voids are preserved. Paranasal sinuses are within normal limits. Le ft lens replacement. Globes and orbital contents are otherwise within normal limits. IMPRESSION: Tiny focal acute infarcts in the left posterior midbrain and right thalamus. Reviewed, dictated and finalized at location K. TCLUB MANAGER
--- NOTE | ~2023-09-26 | US_ITS ---
Procedure: Duplex Doppler examination of the bilateral carotids. Indication: CVA, carotid stenosis Technique: Real time, color-flow and pulse wave Doppler examination of the bilateral carotids was performed. Findings: Kaur scale ultrasonography of the right neck demonstrated no significant plaque. There was demonstrat ion of normal color-flow and Doppler waveforms within the right common, internal and external carotid arteries. The peak systolic velocities in the right common, internal and external carotid arteries w ere demonstrated to be 72 cm/sec, 135 cm/sec and 130 cm/sec respectively. The right ICA/CCA ratio was 2.0.The proximal right internal carotid artery demonstrates 0% stenosis relative to the normal dista l artery lumen diameter. Kaur scale sonography of the left neck demonstrated no significant plaque. There was demonstration of normal color-flow and wave forms within the left common, internal and external carotid arteries. The peak systolic velocities in the left common, internal and external carotid arteries were demonstrate d to be 92cm/sec, 57 cm/sec and 106 cm/sec respectively. The left ICA/CCA ratio was 0.7. The proximal left internal carotid artery demonstrates 0% stenosis relative to the normal distal artery lumen yaa meter. There was antegrade flow demonstrated in the bilateral vertebral arteries. Impression: No hemodynamically significant stenosis of the bilateral internal carotid arteries. Increased velocit y the distal right internal carotid artery is probably related to vessel tortuosity. Antegrade flow in the bilateral vertebral arteries. Note: The methodology used is an indirect measurement validated against a direct method (such as the NASCET criteria) that compares diameters at the stenosis to the distal ICA. Reviewed, dictated and finalized at location M. T ROCK HANGER Impression: No hemodynamically significant stenosis of the bilateral internal carotid arter ies. Increased velocity the distal right internal carotid artery is probably re lated to vessel tortuosity. Antegrade flow in the bilateral vertebral arteries. Note: The methodology used is an indirect measurement validated against a direct meth od (such as the NASCET criteria) that compares diameters at the stenosis to the distal ICA.
--- NOTE | ~2023-09-26 | XR_ITS ---
XR chest 1V portable 09/28/2023 15:41 Indication: CHF. Shortness of breath. Procedure: AP portable chest Comparison: Comparison to multiple prior studies sequentially, with oldest reviewed study dated 03/27. Findings: Borderline heart size. Mild interstitial edema. No significant effusion. No pneumothorax. N o acute osseous abnormality. There is atherosclerosis. Impression: 1: Mild interstitial edema. Reviewed, dictated and finalized at location B. R DEALER Impression: 1: Mild interstitial edema.
--- NOTE | ~2023-09-26 | US_ITS ---
EXAMINATION: US renal BI DATE: 10/01/2023 13:12 INDICATION: LIV on CKD TECHNIQUE: Multiple grayscale and Doppler ultrasound images of the kidneys were obtained. COMPARISON: 07/07/2022; CT abdomen pelvis 06/22/2022. FINDINGS: The right kidney measures 9.0 x 4.9 x 4.5 cm. The left kidney measures 9.7 x 4.4 x 4.3 cm. The kidney s demonstrate hyperechoic parenchyma and cortical thinning. 2.3 cm simple right upper pole cyst There is no hydronephrosis. The bladder is normal. IMPRESSION: Medical renal disease. Bilateral atrophy. Reviewed, dictated and finalized at location K. USION ENGINEER
--- NOTE | ~2023-09-26 | CT_ITS ---
EXAMINATION: CT chest high resolution wo sd DATE: 09/30/2023 12:09 INDICATION: Chronic cough, interstitial lung disease TECHNIQUE: Computed tomography (CT) of the chest was performed without intravenous contrast. The dose -length product (DLP) was 485.84 mGy-cm. Automated exposure control and iterative reconstruction tech Shellcatch were employed. COMPARISON: 03/11/2022 FINDINGS: There are patchy airspace opacities of the upper lobes. There is mild dependent atelectasis . There are small pleural effusions. No pneumothorax is identified. Cardiomegaly is noted. There are no pathologically enlarged thoracic lymph nodes. Calcified coronary artery atherosclerosis is noted. There are stones in the partially imaged gallbladder. Contrast from earlier modified barium swallow i s noted in the stomach. There is a small sliding hiatal hernia. There is moderate thoracic spondylosi s. IMPRESSION: 1. Patchy airspace opacities of the upper lobes, consistent with pneumonia. 2. Cardiomegaly. Reviewed, dictated and finalized at location F. ENT ADMITTING REPRESENTATIVE
--- NOTE | ~2023-09-26 | MR_ITS ---
EXAMINATION: MRA brain wo con DATE: 10/02/2023 15:00 INDICATION: History of recent midbrain and thalamic stroke. TECHNIQUE: Magnetic resonance angiography (MRA) of the brain was performed without intravenous contrast by the 3 D [id number] technique. Maximum intensity projection 3D-reconstructions were obtained. COMPARISON: MR brain 10/01/2023. CT brain 03/30/2023. FINDINGS: There is normal flow related signal seen within the vertebral, basilar and internal carotid arteries. There is no proximal stenosis. There are no aneurysms identified. Hypoplastic right P1 segment. Th e bulk of flow to the right DYNAMOMETER TESTER is via the right posterior communication artery. Both A1 and P1 segme nts are patent. Flow in the cerebral arteries is symmetric. The left vertebral artery is dominant. IMPRESSION: No large vessel occlusion. No severe intracranial stenosis. Reviewed, dictated and finalized at location K. BUYER
--- NOTE | ~2023-09-26 | US_ITS ---
EXAMINATION: US venous doppler LE DATE: 10/03/2023 17:00 INDICATION: Stroke. Right to left shunt. TECHNIQUE: Grayscale ultrasound images without and with compression and Doppler ultrasound images of the bilateral lower extremity veins were obtained. COMPARISON: None. FINDINGS: The visualized portions of right common femoral vein, profunda (deep) femoral vein, femoral vein, pop liteal vein, peroneal veins, and posterior tibial veins are patent. There is thrombus in right greate r saphenous vein. The visualized portions of left common femoral vein, profunda femoral vein, femoral vein, popliteal v ein, peroneal veins, posterior tibial veins, and greater saphenous vein outflow are patent. IMPRESSION: 1. No deep vein thrombosis. 2. Thrombosis of right greater saphenous vein, likely chronic. Reviewed, dictated and finalized at location A. TIONAL MENTAL DISABILITY TEACHER
--- NOTE | 2023-09-26 11:59 | ECG_ITS ---
Measurements Intervals Felch Rate: 61 P: -64 NM: 179 QRS: -45 QRSD: 150 T: 59 QT: 466 QTc: 470 Interpretive Statements SINUS RHYTHM WITH FIRST DEGREE AV BLOCK LEFT AXIS DEVIATION LEFT BUNDLE BRANCH BLOCK BASELINE ARTIFACT- I, II, III, AVR, AVL, AVF ABNORMAL ECG COMPARED TO ECG 09/16/2023 10:35:49 NO SIGNIFICANT CHANGES Electronically Signed On 09-26-2023 12:29:15 ALUMINUM SHINGLE ROOFER by Chau Vega D.O.
--- NOTE | 2023-09-26 11:59 | PC.NURSE ---
Pt reports recently treated as IP at this hospital for pneumonia. Pt voices she did not receive adequate discharge instructions, such as no one made her a doctors appointment & she didn't receive a RX for antibiotics. RN instructed pt & daughter that usually the hospital doesn't make the follow up appointments, if pt received IV antibiotics while as a IP she may not receive antibiotics to continue after discharge. Resp reg & unlabored with clear breath sounds, hacky cough present
--- NOTE | 2023-09-26 12:31 | ED.URI ---
HPI - URI/Sore Throat General Chief Complaint: Upper Respiratory Infection <Rosa Young PA-C - Last Filed: 09/26/23 19:25> Stated Complaint: cough <CLARENCE Briones Last Filed: 09/26/23 19:25> Time Seen by Provider: 09/26/23 11:42 <CLARENCE Briones Last Filed: 09/26/23 19:25> Source: patient <CLARENCE Briones Last Filed: 09/26/23 19:25> Mode of arrival: ambulatory <CLARENCE Briones Last Filed: 09/26/23 19:25> Limitations: no limitations <CLARENCE Briones Last Filed: 09/26/23 19:25> History of Present Illness HPI Narrative: Patient is a 78-year-old female who presents the ED with report of persistent cough and shortness. patient reports she was recently admitted 09/15 through 09/21 for pneumonia and LIV. She was given antibiotics throughout her hospitalization, but is not currently on any antibiotics. She states since her discharge home, she has only gotten worse. Reports persistent productive cough, chest and nasal congestion, shortness of breath, chest tightness, fatigue, weakness. She also reported having nausea with dry heaving today. Denies abdominal pain, vomiting, lower extremity edema. Denies fevers. <CLARENCE Briones Last Filed: 09/26/23 19:25> Related Data Home Medications: Home Medications Medication Instructions Recorded Confirmed gabapentin 300 mg capsule 300 mg PO TID 12/07/19 09/26/23 ergocalciferol (vitamin D2) 1,250 1,250 mcg PO WEEKLY 02/22/21 09/26/23 mcg (50,000 unit) capsule docusate sodium 100 mg capsule 1 cap PO DAILY 05/04/22 09/26/23 dicyclomine 10 mg capsule 10 mg PO TID PRN Abdominal 03/27/23 09/26/23 Discomfort allopurinol 100 mg tablet 100 mg PO DAILY 09/15/23 09/26/23 atorvastatin 80 mg tablet 80 mg PO HS 09/15/23 09/26/23 ezetimibe 10 mg tablet 10 mg PO DAILY 09/15/23 09/26/23 fenofibrate 160 mg tablet 160 mg PO DAILY 09/15/23 09/26/23 hydrocodone 10 mg-acetaminophen 10 tablet PO Q8H PRN Pain (Scale 09/15/23 09/26/23 325 mg tablet Score 4-6) insulin lispro 100 unit/mL See Rx Instructions .Route 09/15/23 09/26/23 subcutaneous pen (Humalog KwikPen .COMPLEX PRN Hyperglycemia (U-100) Insulin) melatonin 5 mg tablet 5 mg PO HS 09/15/23 09/26/23 sitagliptin phosphate 25 mg tablet 25 mg PO DAILY 09/15/23 09/26/23 (Januvia) acetaminophen 500 mg capsule 500 mg PO Q6H 09/26/23 09/26/23 <CLARENCE Briones Last Filed: 09/26/23 19:25> Allergies/Adverse Reactions: Allergies Allergy/AdvReac Type Severity Reaction Status Date / Time ceftriaxone Allergy Unknown Anaphylaxis Verified 09/15/23 18:51 ,Unknown clindamycin Allergy Unknown Anaphylaxis,Not Verified 09/15/23 18:51 Entered morphine Allergy Unknown Not Verified 09/15/23 18:51 Entered,Vomiting nitroglycerin Allergy Unknown Not Verified 09/15/23 18:51 Entered,Headache Penicillins Allergy Unknown Not Verified 09/15/23 18:51 Entered,Hives <Rosa Young PA-C - Last Filed: 09/26/23 19:25> Review of Systems Review of Systems: CONSTITUTIONAL: Denies fever, chills, or sweats. ENT: See HPI. CARDIOVASCULAR: Denies chest pain, palpitations, or edema. RESPIRATORY: See HPI. GASTROINTESTINAL: See HPI. <CLARENCE Briones Last Filed: 09/26/23 19:25> All systems reviewed & are unremarkable except as noted in HPI and below <CLARENCE Briones Last Filed: 09/26/23 19:25> PMFSH Past Medical History Medical History: Medical History (Updated 09/26/23 @ 22:05 by Ivelisse Welch, MISAEL) Anemia of chronic disease Bleeding ulcer Body mass index (BMI) greater than 35 (10/20/18) Calculus of gallbladder Cerebrovascular accident 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 Chronic anticoagulation Congestive heart failure History of reduced ejection fraction with improvem
[2023-09-26 12:35] LABS: Basophils Percent Auto 0.3 % (0.2-1.2); Eosinophils Absolute Auto 0.2 K/mm3 (0-0.3); Eosinophils Percent Auto 3.3 % (0-4.4); Hematocrit 31.5 % (37.0-47.0); Hemoglobin 9.9 g/dL (12.0-15.0); Immature Granulocyte Absolute 0.03 K/mm3 (0.00-0.031); Immature Granulocyte Percent A 0.4 % (0-0.5); Lymphocytes Absolute Auto 0.85 K/mm3 (0.9-3.2); Lymphocytes Percent Auto 12.6 % (18.3-44.2); Mean Corpuscular HGB Conc 31.4 g/dl (32-36); Mean Corpuscular Hemoglobin 32.8 pg (26-34); Mean Corpuscular Volume 104.3 fl (80-100); Mean Platelet Volume 9.6 fl (7.4-10.4); Monocytes Absolute Auto 0.4 K/mm3 (0.1-0.6); Monocytes Percent Auto 6.1 % (2.6-8.5); Neutrophils Absolute Auto 5.2 K/mm3 (1.3-6.7); Neutrophils Percent Auto 77.3 % (45.5-73.1); Platelet Count Result 265 k/mm3 (150-375); Red Blood Count 3.02 M/mm3 (4.2-5.4); Red Cell Distribution Width 15.6 % (11.5-14.5); White Blood Count 6.7 K/mm3 (4.5-10.0)
[2023-09-26 12:43] LABS: Lactic Acid Reflex 1.1 mmol/L (0.7-2.0)
[2023-09-26 12:47] LABS: INR 1.5; Prothrombin Time 18.9 Seconds (11.1-14.7)
[2023-09-26 13:11] LABS: Influenza A QL RT-PCR Negative (Negative); Influenza B QL RT-PCR Negative (Negative); SARS-CoV-2 RNA PCR Negative (Negative)
[2023-09-26 13:38] LABS: D Dimer 0.68 ug/mL (<0.48)
[2023-09-26 13:43] LABS: Alanine Aminotransferase 14 U/L (6-35); Albumin Level 3.2 g/dL (3.5-5.1); Alkaline Phosphatase 56 U/L (38-126); Anion Gap 6 mmol/L (8-16); Aspartate Amino Transferase 32 U/L (14-36); Bilirubin,Total 0.8 mg/dL (0.2-1.3); Blood Urea Nitrogen 33 mg/dL (7-17); Calcium 8.3 mg/dL (8.4-10.2); Carbon Dioxide 26 mmol/L (22-30); Chloride 107 mmol/L (98-107); Estimated CRCL calculation 26 ml/min; Estimated Glomerular Filt Rate 23; Glucose 180 mg/dL (65-110); Potassium 4.7 mmol/L (3.4-5.0); Sodium 139 mmol/L (137-145); Troponin I 0.046 ng/mL (0.000-0.034)
[2023-09-26 13:47] LABS: NT Pro B Type Natriuretic Pept 6390 pg/mL (19.9-100)
[2023-09-26 14:15] LABS: Glucose Point of Care 158 mg/dl (65-105)
[2023-09-26] MEDS: ASPIRIN 81 MG CHEWABLE TABLET 324 MG PO (15:32)
[2023-09-26 15:35] LABS: Appearance Urine Clear (Clear); Bacteria Urine None Seen /hpf; Bilirubin Urine Negative (Negative); Blood Urine Negative (Negative); Color Urine Yellow (Yellow); Glucose Urine UA Negative (Negative); Ketones Urine Negative (Negative); Leukocyte Esterase Ur Negative LEU/UL (Negative); Nitrate Urine Negative (Negative); Non Pathogenic Casts 0-2; Protein Urine 2+ mg/dL (Negative); RBC Urine 0-2 /hpf (0-2); Specific Grav Ur 1.009 (1.001-1.035); Squamous Epithelial Cell Urine None seen /hpf (Few); Urobilinogen Urine 0.2 mg/dL (<2.0); WBC Urine 0-5 /hpf; pH Urine 5.5 (5.0-9.0)
[2023-09-26 15:59] LABS: Add Urine Microscopic? YES
--- NOTE | 2023-09-26 16:00 | ADMGEN ---
This patient, Sarah Alvarado, was admitted to IMU Room 200-01. Patient/family oriented to hospital policies and general routines including ID bracelet, bed and alarms, visiting hours, pain management, procedures, bathroom and other care routines, personal items, smoking policy, room service/diet, and visiting hours. Information on how to activate the Rapid Response Team has been discussed. Patient/Family are encouraged to report perceived risks to care and to ask questions if they do not understand what they are told or what they should do.
[2023-09-26 16:20] LABS: Troponin I 0.049 ng/mL (0.000-0.034)
[2023-09-26] MEDS: FUROSEMIDE INJ 40 MG/4 ML VIAL IV PUSH (18:20)
[2023-09-26 20:12] LABS: Glucose Point of Care 200 mg/dl (65-105)
--- NOTE | 2023-09-26 20:50 | PM.IMHP ---
H&P: HPI History of Present Illness Date/Time: 09/26/23 20:50 Chief Complaint: Cough, Congestion Narrative: 78 y/o F presents here with congestion and cough with PMH of chronic anemia, CHF, HTN, DM, SUZANNE on CPAP, CVAs, and CKD. Patient presents here with congestion, rhinorrhea, productive cough yielding green sputum, nausea without vomiting, shortness of breath (with coughing only), and general malaise. States that she has had the congestion and cough, which are her primary complaint, since she was diagnosed with PNA during her last admission (09/15-09/21). These symptoms have been constant and have not improved. Patient also reports a dull frontal AVILES that was has been intermittent since yesterday, not associated with phono/photophobia. Also endorsing new dysuria, frequency (given diuretic) and suprapubic pain that started today. Denies hematuria. She denies fever, chills, body aches, chest pain, or palpitations. ED workup revealed a negative viral PCR (COVID/Flu/RSV), UA was unremarkable, elevated BNP compared to prior, trop bump (0.046 -> 0.049), normal WBC, and small piece cutter at baseline (2.1). CXR showed interval resolution of prior bilateral perihilar opacities. Hypertensive with otherwise normal VS. Last admission (09/15-09/21) was treated for CAP with 5 days of Levaquin and a few days of Doxycycline. Reported she felt back to her baseline at time of discharge so oral atb were not prescribed. Initially thought to have LIV, creatinine has been chronically elevated at 1.9-2.1 since 2021, more recently elevated to 2-2.5. Fluctuation in creatinine thought to be secondary to infection. Review of Systems Review of Systems: All systems reviewed & are unremarkable except as noted in HPI and below [facility] Past Medical History Medical History (Updated 09/26/23 @ 22:05 by Ivelisse Welch APRN) Anemia of chronic disease Bleeding ulcer Body mass index (BMI) greater than 35 (10/20/18) Calculus of gallbladder Cerebrovascular accident 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 Chronic anticoagulation Congestive heart failure History of reduced ejection fraction with improvement in EF to 55% on most recent echo. Diastolic dysfunction also noted. 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 Depression with anxiety Diabetic peripheral neuropathy Dyslipidemia Essential hypertension Fibromyalgia Gastroesophageal reflux disease History of peptic ulcer Hypersomnia Insulin dependent type 2 diabetes mellitus Obstructive sleep apnea on CPAP Osteoarthritis Paroxysmal atrial flutter Stage III chronic kidney disease Baseline creatinine ranges between 1.3 and 1.60. Vitamin D deficiency Surgical History Surgical History History of appendectomy History of cardiac catheterization (07/2013) Normal coronaries although anomalous left coronary artery arising from the right ostium was noted. History of hysterectomy (1979) History of left breast biopsy Benign pathology. Family History Family History Father Malignant neoplasm of prostate Heart disease Mother Esophageal cancer Sibling Diabetes mellitus Daughter Alcoholism Social History Social History (Updated 09/26/23 @ 21:05 by Ivelsise Welch APRN) Social History: Currently lives with her daughter. Surrogate medical decision maker: Mikki Herrera, daughter. Code status: Full Code. Smoking status: Never smoker Second hand tobacco smoke exposure: Yes Alcohol intake: current Drinks per week: 1 Alcohol use details: Rarely Substance use: never Substance use type: does not use Other substance usage details: only uses alcohol rarely. one drink at a time. Lack of Transportation: YES Lack of Food: Never True
[2023-09-26] MEDS: HYDROcodone/acetaminophen (*CRX) 10-325 MG TABLET 1 TAB PO (22:20)
[2023-09-26] MEDS: ATORVASTATIN 40 MG TABLET 80 MG PO (22:20)
[2023-09-26] MEDS: carvediloL 12.5 MG TABLET PO (22:20)
[2023-09-26] MEDS: MELATONIN 5 MG TABLET PO (23:26)
[2023-09-27] VITALS (16 sets, daily range): BP systolic 120–187; BP diastolic 54–87; PULSE 61–76; RESP 18–20; TEMP 36.3–36.8; O2SAT 95–98
--- NOTE | 2023-09-27 | ECHO_ITS ---
Patient Info Name: Sarah Alvarado Age: 78 years : 1945 Gender: Female Ht: 66 in Wt: 215 lbs BSA: 2.17 m2 HR: 61 bpm BP: 149 / 87 mmHg Heart Rhythm: Sinus Rhythm Technical Quality: Good Exam Date: 09/27/2023 8:51 AM Exam Location: Echo Lab Patient Status: Outpatient Admit Date: 09/26/2023 Staff Ordering Physician: Ivelisse Welch APRN Bingo Cashier: Mika Saeed RDCS Attending Provider: Contreras Kruse MD Referring Physician: Yuri MORTENSEN; Exam Type: CA echo doppler color flow Study Info Indications - cough, elevated troponin Complete two-dimensional, color flow and Doppler transthoracic echocardiogram is performed. Summary 1. Complete two-dimensional, color flow and Doppler transthoracic echocardiogram is performed. 2. Left ventricular chamber dimension is normal. 3. Ventricular septum is sigmoid shaped. No LVOT obstruction. 4. Left ventricular systolic function is normal, estimated at 65-70%. 5. There is moderate concentric increased left ventricular wall thickness. 6. The left ventricular diastolic function is grade I diastolic dysfunction. 7. E/e' 8 is minimally elevated. 8. Left atrial chamber dimension is mildly enlarged. 9. There is mild aortic valve sclerosis. 10. There is trace aortic valve regurgitation. 11. The mitral valve has moderately calcified leaflets and severely calcified annulus. 12. There is mild tricuspid valve regurgitation. 13. Mild pulmonary hypertension, estimated pulmonary arterial systolic pressure is 42 mmHg. Left Ventricle E/e' 8 is minimally elevated. Ventricular septum is sigmoid shaped. No LVOT obstruction. Left ventricular chamber dimension is normal. Left ventricular systolic function is normal, estimated at 65-70%. There is moderate concentric increased left ventricular wall thickness. The left ventricular diastolic function is grade I diastolic dysfunction. Right Ventricle Right ventricular systolic function is normal and with normal TAPSE 2.5 cm. Right ventricular chamber dimension is normal. Left Atria Left atrial chamber dimension is mildly enlarged. Right Atria Right atrial chamber dimension is normal. Aortic Valve The aortic valve is trileaflet. There is mild aortic valve sclerosis. There is no aortic valve stenosis. There is trace aortic valve regurgitation. Pulmonic Valve There is no pulmonic regurgitation. Mitral Valve The mitral valve has moderately calcified leaflets and severely calcified annulus. There is no mitral valve stenosis. There is no mitral valve regurgitation. Tricuspid Valve There is mild tricuspid valve regurgitation. Mild pulmonary hypertension, estimated pulmonary arterial systolic pressure is 42 mmHg. Pericardium/Pleural There is no pericardial effusion. Inferior Vena Cava Normal inferior vena cava with >50% collapse upon inspiration consistent with normal right atrial pressure, 5 mmHg. Aorta The aortic root size at the sinus of Valsalva is normal. Left Ventricular Outflow Tract Name Value Normal LVOT 2D LVOT Diameter 2.0 cm LVOT Doppler LVOT Peak Gradient 5 mmHg LVOT Mean Gradient 3 mmHg LVOT VTI 29 cm
[2023-09-27 05:20] LABS: Basophils Percent Auto 0.3 % (0.2-1.2); Eosinophils Absolute Auto 0.3 K/mm3 (0-0.3); Eosinophils Percent Auto 5.8 % (0-4.4); Hematocrit 31.8 % (37.0-47.0); Hemoglobin 9.9 g/dL (12.0-15.0); Immature Granulocyte Absolute 0.03 K/mm3 (0.00-0.031); Immature Granulocyte Percent A 0.5 % (0-0.5); Lymphocytes Absolute Auto 1.16 K/mm3 (0.9-3.2); Lymphocytes Percent Auto 19.9 % (18.3-44.2); Mean Corpuscular HGB Conc 31.1 g/dl (32-36); Mean Corpuscular Hemoglobin 32.6 pg (26-34); Mean Corpuscular Volume 104.6 fl (80-100); Mean Platelet Volume 9.6 fl (7.4-10.4); Monocytes Absolute Auto 0.5 K/mm3 (0.1-0.6); Monocytes Percent Auto 9.3 % (2.6-8.5); Neutrophils Absolute Auto 3.7 K/mm3 (1.3-6.7); Neutrophils Percent Auto 64.2 % (45.5-73.1); Platelet Count Result 263 k/mm3 (150-375); Red Blood Count 3.04 M/mm3 (4.2-5.4); Red Cell Distribution Width 15.6 % (11.5-14.5); White Blood Count 5.8 K/mm3 (4.5-10.0)
[2023-09-27 05:40] LABS: Alanine Aminotransferase 12 U/L (6-35); Alkaline Phosphatase 61 U/L (38-126); Anion Gap 4 mmol/L (8-16); Aspartate Amino Transferase 26 U/L (14-36); Bilirubin,Total 0.6 mg/dL (0.2-1.3); Blood Urea Nitrogen 34 mg/dL (7-17); Calcium 8.4 mg/dL (8.4-10.2); Carbon Dioxide 29 mmol/L (22-30); Chloride 106 mmol/L (98-107); Estimated CRCL calculation 23 ml/min; Estimated Glomerular Filt Rate 21; Glucose 138 mg/dL (65-110); Sodium 139 mmol/L (137-145)
[2023-09-27] MEDS: HYDROcodone/acetaminophen (*CRX) 10-325 MG TABLET 1 TAB PO ×2 (05:45→20:25)
--- NOTE | 2023-09-27 07:00 | ECG_ITS ---
Measurements Intervals [place] Rate: 78 P: -75 NM: 117 QRS: -55 QRSD: 156 T: 72 QT: 433 QTc: 496 Interpretive Statements SINUS RHYTHM WITH FIRST DEGREE AV BLOCK LEFT AXIS DEVIATION LEFT BUNDLE BRANCH BLOCK BASELINE ARTIFACT- I, II, III, AVR, AVL, AVF ABNORMAL ECG COMPARED TO ECG 09/26/2023 12:09:37 NO SIGNIFICANT CHANGES Electronically Signed On 09-27-2023 10:57:19 ORNAMENT STITCHER by Chau Vega D.O.
[2023-09-27 08:04] LABS: Glucose Point of Care 143 mg/dl (65-105)
[2023-09-27] MEDS: allopurinoL 100 MG TABLET PO (08:36)
[2023-09-27] MEDS: hydrALAZINE HCL 20 MG/ML VIAL 10 MG IV PUSH (08:36)
[2023-09-27] MEDS: TAMSULOSIN HCL 0.4 MG CAPSULE PO (08:36)
[2023-09-27] MEDS: carvediloL 12.5 MG TABLET PO ×2 (08:36→20:26)
[2023-09-27] MEDS: GABAPENTIN 300 MG CAPSULE PO ×3 (08:36→17:01)
[2023-09-27] MEDS: EZETIMIBE 10 MG TABLET PO (08:36)
[2023-09-27] MEDS: DOCUSATE SODIUM 100 MG CAPSULE PO (08:36)
[2023-09-27] MEDS: AMIODARONE HCL 200 MG TABLET PO (08:36)
[2023-09-27] MEDS: ASPIRIN 81 MG ENTERIC TABLET PO (08:36)
[2023-09-27] MEDS: FUROSEMIDE 40 MG TABLET PO ×2 (08:36→17:01)
[2023-09-27] MEDS: BENZONATATE 100 MG CAPSULE 200 MG PO ×3 (08:36→17:01)
[2023-09-27 08:57] LABS: Phosphorus 3.8 mg/dL (2.5-4.5)
[2023-09-27 10:04] LABS: Folic Acid 10.5 ng/mL (2.76->20)
[2023-09-27 10:23] LABS: Troponin I 0.058 ng/mL (0.000-0.034)
--- NOTE | 2023-09-27 12:02 | PM.CNCAR ---
Assessment and Plan Assessment and plan (1) Elevated troponin: Code(s): R79.89 - Other specified abnormal findings of blood chemistry Status: Acute Assessment and Plan: Mildly elevated and peaked at .06. Probably related to URI with CKD. Check echo. If similar to last echo, no further cardiac workup is needed. (2) Elevated brain natriuretic peptide (BNP) level: Code(s): R79.89 - Other specified abnormal findings of blood chemistry Status: Acute Assessment and Plan: Elevated at 6,390, probably due to chronic diastolic dysfunction with CKD. Does not appear to be volume overloaded. (3) Diastolic dysfunction: Code(s): I51.89 - Other ill-defined heart diseases Status: Acute Assessment and Plan: Appears euvolemic. Continue Lasix 40 mg daily. (4) Essential hypertension: Code(s): I10 - Essential (primary) hypertension Status: Chronic Assessment and Plan: Stable. (5) Dyslipidemia: Code(s): E78.5 - Hyperlipidemia, unspecified Status: Acute Assessment and Plan: Stable. (6) PVT (paroxysmal ventricular tachycardia): Code(s): I47.2 - Ventricular tachycardia Status: Acute Assessment and Plan: On Amiodarone. (7) Paroxysmal atrial flutter: Code(s): I48.92 - Unspecified atrial flutter Status: Acute Assessment and Plan: Stable. On Amiodarone and Eliquis. History of Present Illness History of Present Illness Consult date/time: 09/27/23 12:02 Reason For Visit: CHF Exacerbation/SOB/Weakness/Elevated Troponin Narrative: Patient is a 78 yr old woman who is my regular cardiology patient presents to hospital with sob. She has a history of coronary anomaly, paroxysmal atrial flutter, COPD, SUZANNE, diastolic dysfunction, dyslipidemia, DM, hypertension, CKD stage IV, anemia (10/10/17 Hb 9.3 gm.? 06/07/18 Hb 11.0.), covid infection on 05/28/21. Reports she has been having URI for last 2 weeks and treated with antibiotics, but did not get better. She has nasal drainage, coughing up green sputum, and feels its all in her throat. No fever or chills. She reports fatigue but she does not use CPAP since it is hard for her to clean the machine. She is chronically limited from SWEET at short distance with her walker due to COPD, and severe right knee pain. Has trace edema of legs. Denies chest pain, orthopnea, palpitations. Previously, she had covid infection and then pneumonia, received Ceftriaxone antibiotic and had anaphylaxis related to it and had to be intubated. Cardiovascular Procedures Microwave Oven Assembler:: Cath (Dr. Wilosn: Tiny atretic artery off left cusp; LM from same ostium as RCA off right coronary cusp with normal coronaries.) - 07/25/2013 Echo/[facility]GA:: 03/28/23 Echo: EF 55-60%, mod LVH, diastolic dysfunction (E/e' 28), mod MAC, mild TR, trace PI. 07/24/21 Echo: 55-60%, mod LVH, grade I diastolic dysfunction (E/e' 21), mod LAE, mod MAC, trace TR. Echo (EF 50-55%, mod LVH, grade I diastolic dysfunction (E/E' 15), mild MR, mod MAC, mild TR.) - 05/05/2018 Echo (EF 44%, grade I diastolic dysfunction, paradoxical septal motion due to LBBB, RVE mild, mild LAE, RVSP 44 mmHg, mild TR, mild MVP, trace MR. (In January 2013 Echo EF 30-35%).) - 07/11/2015 Electrophysiology:: 04/26/23 EKG: Sinus rhythm at 79 bpm, frequent PAC's and PVC's, LBBB, QTc 426 ms. 03/28/23 EKG: Atrial flutter/tachycardia at 101 bpm, frequent PVC's, IVCD, cannot r/o septal infarct, borderline ST-T wave in high lateral leads. 10/26/22 EKG: Sinus rhythm at 61 bpm, LBBB, QTc 463 ms. 07/30/22 EKG: Sinus rhythm with sinus arrhythmia, PAC and PVC, LBBB. 06/22/22 EKG: Sinus rhythm, LBBB. 01/20/22 EKG: Sinus rhythm, IVCD, QTc 457 ms. 09/22/21 27 days event monitor: Sinus rhythm, HR range 50-154 bpm; average HR 79 bpm; 10% PAC's, 7 episodes of atrial fib, burden 0.1%; 5% PVC's 4 VT, fastest at 143 bpm and longest 8 beats; symptoms due to PAC's and PVC's. 09/09/21 4 days event monitor: Sinus rhythm, H
[2023-09-27 12:04] LABS: Glucose Point of Care 232 mg/dl (65-105)
[2023-09-27] MEDS: ACETAMINOPHEN 500 MG TABLET PO ×2 (12:24→17:01)
[2023-09-27] MEDS: INSULIN ASPART (*BKC) 100 UNITS/ML SUB-Q ×2 (12:25→20:27)
[2023-09-27 17:02] LABS: Glucose Point of Care 107 mg/dl (65-105)
--- NOTE | 2023-09-27 19:19 | PM.IMPN ---
Progress Note: A&P Assessment and Plan (1) Paroxysmal atrial flutter: Code(s): I48.92 - Unspecified atrial flutter Status: Acute (2) Dysuria: Code(s): R30.0 - Dysuria Status: Acute (3) Cough: Qualifiers: Cough type: subacute Qualified Code(s): R05.2 - Subacute cough Code(s): R05 - Cough Status: Acute (4) Acute exacerbation of CHF (congestive heart failure): Qualifiers: Heart failure type: unspecified Qualified Code(s): I50.9 - Heart failure, unspecified Code(s): I50.9 - Heart failure, unspecified Status: Acute (5) Weakness: Code(s): R53.1 - Weakness Status: Acute (6) Elevated troponin: Code(s): R79.89 - Other specified abnormal findings of blood chemistry Status: Acute (7) Acute kidney injury superimposed on CKD: Code(s): N17.9 - Acute kidney failure, unspecified; N18.9 - Chronic kidney disease, unspecified Status: Acute (8) Pneumonia: Code(s): J18.9 - Pneumonia, unspecified organism Status: Acute (9) Stage III chronic kidney disease: Code(s): N18.3 - Chronic kidney disease, stage 3 (moderate) Status: Acute (10) Essential hypertension: Code(s): I10 - Essential (primary) hypertension Status: Chronic (11) Dyslipidemia: Code(s): E78.5 - Hyperlipidemia, unspecified Status: Acute (12) Obesity: Code(s): E66.9 - Obesity, unspecified Status: Acute (13) SUZANNE (obstructive sleep apnea): Code(s): G47.33 - Obstructive sleep apnea (adult) (pediatric) Status: Acute Plan Continue with current medications Continue gentle IV diuresis Strict I&Os Patient has minimally elevated troponins without any chest pain Cardiology consult given for evaluation and treatment recommendations Cardiology evaluated the patient and ordered a [id number] echo for comparison and evaluation of cardiac structure and function She is already on Eliquis 5 mg p.o. b.i.d. Continue with gentle diuresis with Lasix 40 mg daily PT/OT evaluation ordered DC planning in a.m. if he has remained stable and cleared by Cardiology for discharge. ? Patient seen and examined at bedside during my morning rounds ? Collaborated with patient's nurse at the bedside in detail and addressed all concerns ? Labs, electrolytes, radiology, investigations and test results reviewed ? Consult/Nursing/Ancilliary notes on the chart reviewed and appreciated ? Spoke with patient/family at the bedside and answered all the questions that they had Repeat labs in a.m. Electrolyte replacement as per protocol. Patient will be monitored very closely on the floor. Further recommendations as per the hospital course. Time Spent With Patient Time with patient: 25 - 35 minutes Subjective Date/time seen: 09/27/23 19:19 Interval history: Patient seen and evaluated at bedside. Still feels tired and fatigued, but looks a little better today. Review of Systems Review of Systems: She denies any chest pain, palpitations, fever rigor chills, nausea vomiting dizziness or loss of consciousness All systems reviewed & are unremarkable except as noted in HPI and below Exam Narrative: PHYSICAL EXAMINATION: Vital signs: Please see the chart General physical exam: patient lying in bed, appears a little tired and fatigued Head/eyes: Atraumatic, EOMI, PERRLA ENT: Moist mucous membranes, nasal passages clear Neck: Supple, full range of motion, trachea midline CVS: S1 + S2, regular rate and rhythm, no murmurs Respiratory: Bilaterally fair air entry in both lung conroy, mild B/L crackles, symmetric chest expansion, no distress Abdomen: Soft, non-tender, bowel sounds +ve, no organomegaly Extremities: No clubbing, no cyanosis, no edema, no calf tenderness Musculoskeletal: Moves all, decreased range of motion, no muscle spasms Skin: Warm, dry, no jaundice, no cyanosis Neurological: Awake, alert, crania
[2023-09-27 20:06] LABS: Glucose Point of Care 216 mg/dl (65-105)
[2023-09-27] MEDS: APIXABAN 5 MG TABLET PO (20:26)
[2023-09-27] MEDS: ATORVASTATIN 40 MG TABLET 80 MG PO (20:26)
[2023-09-27] MEDS: MELATONIN 5 MG TABLET PO (20:26)
[2023-09-28] VITALS (17 sets, daily range): BP systolic 96–135; BP diastolic 49–73; PULSE 60–87; RESP 16–22; TEMP 36–36.8; O2SAT 93–96
[2023-09-28] MEDS: HYDROcodone/acetaminophen (*CRX) 10-325 MG TABLET 1 TAB PO ×3 (04:40→20:38)
[2023-09-28 05:19] LABS: Basophils Percent Auto 0.6 % (0.2-1.2); Eosinophils Absolute Auto 0.3 K/mm3 (0-0.3); Eosinophils Percent Auto 5.4 % (0-4.4); Hematocrit 32.1 % (37.0-47.0); Immature Granulocyte Absolute 0.03 K/mm3 (0.00-0.031); Immature Granulocyte Percent A 0.5 % (0-0.5); Lymphocytes Absolute Auto 1.23 K/mm3 (0.9-3.2); Lymphocytes Percent Auto 19.4 % (18.3-44.2); Mean Corpuscular HGB Conc 31.2 g/dl (32-36); Mean Corpuscular Hemoglobin 32.5 pg (26-34); Mean Corpuscular Volume 104.2 fl (80-100); Mean Platelet Volume 9.7 fl (7.4-10.4); Monocytes Absolute Auto 0.6 K/mm3 (0.1-0.6); Neutrophils Absolute Auto 4.1 K/mm3 (1.3-6.7); Neutrophils Percent Auto 65.1 % (45.5-73.1); Platelet Count Result 263 k/mm3 (150-375); Red Blood Count 3.08 M/mm3 (4.2-5.4); Red Cell Distribution Width 15.9 % (11.5-14.5); White Blood Count 6.4 K/mm3 (4.5-10.0)
[2023-09-28 05:41] LABS: Anion Gap 9 mmol/L (8-16); Blood Urea Nitrogen 41 mg/dL (7-17); Calcium 8.4 mg/dL (8.4-10.2); Carbon Dioxide 26 mmol/L (22-30); Chloride 104 mmol/L (98-107); Estimated CRCL calculation 20 ml/min; Estimated Glomerular Filt Rate 18; Glucose 141 mg/dL (65-110); Sodium 139 mmol/L (137-145)
[2023-09-28 05:48] LABS: Troponin I 0.051 ng/mL (0.000-0.034)
[2023-09-28 08:19] LABS: Glucose Point of Care 153 mg/dl (65-105)
[2023-09-28] MEDS: BENZONATATE 100 MG CAPSULE 200 MG PO ×3 (08:30→17:23)
[2023-09-28] MEDS: ERGOCALCIFEROL 50,000 UNITS CAPSULE 50000 UNITS PO (08:31)
[2023-09-28] MEDS: TAMSULOSIN HCL 0.4 MG CAPSULE PO (08:32)
[2023-09-28] MEDS: APIXABAN 5 MG TABLET PO ×2 (08:32→20:39)
[2023-09-28] MEDS: GABAPENTIN 300 MG CAPSULE PO ×3 (08:32→17:22)
[2023-09-28] MEDS: EZETIMIBE 10 MG TABLET PO (08:32)
[2023-09-28] MEDS: allopurinoL 100 MG TABLET PO (08:32)
[2023-09-28] MEDS: FUROSEMIDE 40 MG TABLET PO (08:32)
[2023-09-28] MEDS: ASPIRIN 81 MG ENTERIC TABLET PO (08:32)
[2023-09-28] MEDS: AMIODARONE HCL 200 MG TABLET PO (08:33)
--- NOTE | 2023-09-28 10:44 | PM.IMPN ---
Progress Note: A&P Assessment and Plan (1) Paroxysmal atrial flutter: Code(s): I48.92 - Unspecified atrial flutter Status: Acute (2) Dysuria: Code(s): R30.0 - Dysuria Status: Acute (3) Cough: Qualifiers: Cough type: subacute Qualified Code(s): R05.2 - Subacute cough Code(s): R05 - Cough Status: Acute (4) Acute exacerbation of CHF (congestive heart failure): Qualifiers: Heart failure type: unspecified Qualified Code(s): I50.9 - Heart failure, unspecified Code(s): I50.9 - Heart failure, unspecified Status: Acute (5) Weakness: Code(s): R53.1 - Weakness Status: Acute (6) Elevated troponin: Code(s): R79.89 - Other specified abnormal findings of blood chemistry Status: Acute (7) Acute kidney injury superimposed on CKD: Code(s): N17.9 - Acute kidney failure, unspecified; N18.9 - Chronic kidney disease, unspecified Status: Acute (8) Pneumonia: Code(s): J18.9 - Pneumonia, unspecified organism Status: Acute (9) Stage III chronic kidney disease: Code(s): N18.3 - Chronic kidney disease, stage 3 (moderate) Status: Acute (10) Essential hypertension: Code(s): I10 - Essential (primary) hypertension Status: Chronic (11) Dyslipidemia: Code(s): E78.5 - Hyperlipidemia, unspecified Status: Acute (12) Obesity: Code(s): E66.9 - Obesity, unspecified Status: Acute (13) SUZANNE (obstructive sleep apnea): Code(s): G47.33 - Obstructive sleep apnea (adult) (pediatric) Status: Acute Plan CHF exacerbation, elevated troponin Continue with current medications Continue gentle IV diuresis Strict I&Os Patient has minimally elevated troponins without any chest pain Cardiology consult given for evaluation and treatment recommendations Cardiology evaluated the patient and ordered a [id number] echo for comparison and evaluation of cardiac structure and function She is already on Eliquis 5 mg p.o. b.i.d. Patient is on Lasix 40 mg b.i.d. p.o. CKD stage IV Creatinine is trending up Possible cardiorenal syndrome Consult graphic user interface designer as kidney function to continue to worse Dizziness Patient feels like dizzy when patient stand up and walking, no focal weakness order orthostatic test, fall precaution PT/OT evaluation ordered Repeat labs in a.m. Electrolyte replacement as per protocol. Patient will be monitored very closely on the floor. Further recommendations as per the hospital course. Subjective Date/time seen: 09/28/23 10:44 Interval history: I saw exam patient today, patient feels dizzy when patient stand up out and walk, patient feels like passing out because of lightheadedness. Patient denies shortness breath, chest pain, abdomen pain, nausea vomiting diarrhea Exam Narrative: PHYSICAL EXAMINATION: Vital signs: Please see the chart General physical exam: patient lying in bed, appears a little tired and fatigued Head/eyes: Atraumatic, EOMI, PERRLA ENT: dry mucous membranes, nasal passages clear Neck: Supple, full range of motion, trachea midline CVS: S1 + S2, regular rate and rhythm, no murmurs Respiratory: Bilaterally fair air entry in both lung conroy, mild B/L crackles, symmetric chest expansion, no distress Abdomen: Soft, non-tender, bowel sounds +ve, no organomegaly Extremities: No clubbing, no cyanosis, no edema, no calf tenderness Musculoskeletal: Moves all, decreased range of motion, no muscle spasms Skin: Warm, dry, no jaundice, no cyanosis Neurological: Awake, alert, cranial nerves II-XII intact, no focal neurological deficits Psychiatric: Normal mood, non suicidal Objective Data Vital Signs Vital Signs: Vital Signs - 24 hr 09/27/23 12:00 09/27/23 12:00 09/27/23 12:00 Temperature 97.6 F Pulse Rate 74 74 Respiratory Rate 20 Blood Pressure 123/62 Pulse Oximetry 95 Oxygen Delivery Room Air
[2023-09-28] MEDS: carvediloL 12.5 MG TABLET PO ×2 (11:19→20:42)
--- NOTE | 2023-09-28 12:10 | PC.NURSE ---
Patient c/o dizziness, patient transferred to bed via walker without issue. Dr. Casillas notified.
[2023-09-28] MEDS: ACETAMINOPHEN 500 MG TABLET PO ×2 (12:36→17:22)
[2023-09-28] MEDS: INSULIN ASPART (*BKC) 100 UNITS/ML SUB-Q ×2 (12:38→20:43)
[2023-09-28 13:19] LABS: Glucose Point of Care 245 mg/dl (65-105)
--- NOTE | 2023-09-28 15:00 | PM.CNNEP ---
Assessment and Plan Assessment and plan (1) LIV (acute kidney injury): Code(s): N17.9 - Acute kidney failure, unspecified Status: Acute Assessment and Plan: suspect due to overdiuresis despite elevated BNP, climically appears euvolemic however, given IV diuretics since admission.... will reduce diuretics back to oral dosage that she takes as an outpatient depending on trend of creatinine, may consider d/c diuretic therapy (2) Chronic kidney disease, stage IV (severe): Code(s): N18.4 - Chronic kidney disease, stage 4 (severe) Status: Chronic Assessment and Plan: evidence of CKD that dates back to 2018 with slow progression of disease... initially had been ~ 1.4 - 1.8mg/dl then augustine to ~ 1.9 - 2.1mg/dl since early 2021 more recently, running ~ 2.0 - 2.5mg/dl due to HTN, DM, vascular disease, SUZANNE, and age-related change based on outpatient evaluation follows with Dr. Carrillo for management of CKD (3) Cough: Qualifiers: Cough type: subacute Qualified Code(s): R05.2 - Subacute cough Code(s): R05 - Cough Status: Acute Assessment and Plan: persitent since last hospital discharge last week residual/ left over from repvious pneumonia(?) resumed on antibioitc therapy viral testing negative element of reactive airway disease(?) continue supporrive therapy (4) Diastolic heart failure: Code(s): I50.30 - Unspecified diastolic (congestive) heart failure Status: Chronic Assessment and Plan: appears compensated Cardiology recommendations noted (5) Essential hypertension: Code(s): I10 - Essential (primary) hypertension Status: Chronic Assessment and Plan: reasonable control since admission follow trend of hemodynamics (6) SUZANNE (obstructive sleep apnea): Code(s): G47.33 - Obstructive sleep apnea (adult) (pediatric) Status: Acute Assessment and Plan: continue use of CPAP (7) Diabetes: Code(s): E11.9 - Type 2 diabetes mellitus without complications Status: Chronic Assessment and Plan: follow accuchecks glycemic control per hospitalists I will continue follow the patient with you while she remains hospitalized and make further recommendations as needed. Thank you for allowing me to participate in the care this patient. History of Present Illness Reason for Consult Consult date: 09/28/23 Reason for consult: acute renal failure (on chronic kidney disease) Chief Complaint Chief complaint: CHF Exacerbation/SOB/Weakness/Elevated Troponin History of Present Illness Narrative: The patient is a 78-year-old female with a past medical history as outlined below who presented to [facility] Emergency room with complaints shortness of breath associated with a dry cough and chest congestion. The patient was just recently hospitalized earlier this month with community-acquired pneumonia and was treated with IV Levaquin and doxycycline with improvement in her clinical symptoms by the time of discharge. However, she reports that since her discharge, she has a persistent cough in association with mild shortness of breath. The symptoms seems to have been constant and have not improved despite conservative therapy at home. She denies any overt fevers, chills, body aches, chest pain, or palpitations. However given the persistence of the symptoms and the fact that had not improving she return to the ER for further assessment Workup and evaluation in the emergency room demonstrated the patient to be hemodynamically stable and in no acute distress. Subsequent testing for Covid, influenza, and RSV was negative and her urinalysis was unremarkable. Routine blood test demonstrated elevated BNP in compared to her prior admission within a mildly elevated troponin elevation. Renal function was at baseline with a normal white blood cell count and a chest x-ray showed in
--- NOTE | 2023-09-28 15:00 | P.CONNP_ITS ---
Assessment and Plan Assessment and plan (1) LIV (acute kidney injury): Code(s): N17.9 - Acute kidney failure, unspecified Status: Acute Assessment and Plan: * suspect due to overdiuresis * despite elevated BNP, climically appears euvolemic * however, given IV diuretics since admission.... * will reduce diuretics back to oral dosage that she takes as an outpatient * depending on trend of creatinine, may consider d/c diuretic therapy (2) Chronic kidney disease, stage IV (severe): Code(s): N18.4 - Chronic kidney disease, stage 4 (severe) Status: Chronic Assessment and Plan: * evidence of CKD that dates back to 2018 with slow progression of disease... * initially had been ~ 1.4 - 1.8mg/dl * then augustine to ~ 1.9 - 2.1mg/dl since early 2021 * more recently, running ~ 2.0 - 2.5mg/dl * due to HTN, DM, vascular disease, SUZANNE, and age-related change based on outpat ient evaluation * follows with Dr. Carrillo for management of CKD (3) Cough: Qualifiers: Cough type: subacute Qualified Code(s): R05.2 - Subacute cough Code(s): R05 - Cough Status: Acute Assessment and Plan: * persitent since last hospital discharge last week * residual/ left over from repvious pneumonia(?) * resumed on antibioitc therapy * viral testing negative * element of reactive airway disease(?) * continue supporrive therapy (4) Diastolic heart failure: Code(s): I50.30 - Unspecified diastolic (congestive) heart failure Status: Chronic Assessment and Plan: * appears compensated * Cardiology recommendations noted (5) Essential hypertension: Code(s): I10 - Essential (primary) hypertension Status: Chronic Assessment and Plan: * reasonable control since admission * follow trend of hemodynamics (6) SUZANNE (obstructive sleep apnea): Code(s): G47.33 - Obstructive sleep apnea (adult) (pediatric) Status: Acute Assessment and Plan: * continue use of CPAP (7) Diabetes: Code(s): E11.9 - Type 2 diabetes mellitus without complications Status: Chronic Assessment and Plan: * follow accuchecks * glycemic control per hospitalists I will continue follow the patient with you while she remains hospitalized and make further recommendations as needed. Thank you for allowing me to participate in the care this patient. History of Present Illness Reason for Consult Consult date: 09/28/23 Reason for consult: acute renal failure (on chronic kidney disease) Chief Complaint Chief complaint: CHF Exacerbation/SOB/Weakness/Elevated Troponin History of Present Illness Narrative: The patient is a 78-year-old female with a past medical history as outlined below who presented to [facility] Emergency room with complaints shortness of breath associated with a dry cough and chest congestion. The patient was just recently hospitalized earlier this month with community- acquired pneumonia and was treated with IV Levaquin and doxycycline with improvement in her clinical symptoms by the time of discharge. However, she r eports that since her discharge, she has a persistent cough in association with mild shortness of breath. The symptoms seems to have been constant and have not improved despite conservative therapy at home. She denies any overt fevers, chills, body aches, chest pain, or palpitations. However given the persistence of the symptoms and the fact that had not improving she return to the ER for further assessment Workup and evaluation in
[2023-09-28 17:01] LABS: Glucose Point of Care 173 mg/dl (65-105)
[2023-09-28] MEDS: ATORVASTATIN 40 MG TABLET 80 MG PO (20:38)
[2023-09-28] MEDS: DOCUSATE SODIUM 100 MG CAPSULE PO (20:38)
[2023-09-28] MEDS: MELATONIN 5 MG TABLET PO (20:39)
[2023-09-28 20:42] LABS: Glucose Point of Care 215 mg/dl (65-105)
[2023-09-29] VITALS (13 sets, daily range): BP systolic 114–146; BP diastolic 50–71; PULSE 60–81; RESP 16–20; TEMP 36.6–36.9; O2SAT 95–100
[2023-09-29] MEDS: HYDROcodone/acetaminophen (*CRX) 10-325 MG TABLET 1 TAB PO ×2 (06:02→14:55)
--- NOTE | 2023-09-29 07:53 | PM.IMPN ---
Progress Note: A&P Assessment and Plan (1) Paroxysmal atrial flutter: Code(s): I48.92 - Unspecified atrial flutter Status: Acute (2) Cough: Qualifiers: Cough type: subacute Qualified Code(s): R05.2 - Subacute cough Code(s): R05 - Cough Status: Acute (3) Acute exacerbation of CHF (congestive heart failure): Qualifiers: Heart failure type: unspecified Qualified Code(s): I50.9 - Heart failure, unspecified Code(s): I50.9 - Heart failure, unspecified Status: Acute (4) Weakness: Code(s): R53.1 - Weakness Status: Acute (5) Elevated troponin: Code(s): R79.89 - Other specified abnormal findings of blood chemistry Status: Acute (6) Acute kidney injury superimposed on CKD: Code(s): N17.9 - Acute kidney failure, unspecified; N18.9 - Chronic kidney disease, unspecified Status: Acute (7) Pneumonia: Code(s): J18.9 - Pneumonia, unspecified organism Status: Acute (8) Dehydration: Code(s): E86.0 - Dehydration Status: Acute (9) Elevated brain natriuretic peptide (BNP) level: Code(s): R79.89 - Other specified abnormal findings of blood chemistry Status: Acute (10) LIV (acute kidney injury): Code(s): N17.9 - Acute kidney failure, unspecified Status: Acute (11) Community acquired pneumonia: Code(s): J18.9 - Pneumonia, unspecified organism Status: Acute (12) Stage III chronic kidney disease: Code(s): N18.3 - Chronic kidney disease, stage 3 (moderate) Status: Acute (13) Essential hypertension: Code(s): I10 - Essential (primary) hypertension Status: Chronic (14) Dyslipidemia: Code(s): E78.5 - Hyperlipidemia, unspecified Status: Acute Plan 1. Cough of unclear origin differential includes chf exacerbation, ongoing pneumonia not fully treated, GERD, copd related cough, ACS is unlikely, side effect of sitagliptin, sputum cx shows oral yoni- c/f aspiration influenza a/b/covid neg. f/u rsv f/u swallow eval. will need repeat MBS- from MBS on 02/2021 Pharyngeal Phase:? Reduced laryngeal elevation and laryngeal penetration Start bid famotidine 20 mg for suspected GERD Start levo/flagyl for another 7 days of treatment to cover CAP or atypical pna that has not been fully treated and aspiration fortunately does not have wheezing so does not appear to have a copd exacerbation 2. CHF exacerbation, elevated troponin Continue with current medications Continue gentle IV? diuresis Strict? I&Os Patient has minimally elevated troponins without any chest pain Cardiology consult given for evaluation and treatment recommendations Cardiology evaluated the patient and ordered a eqyrpl1T echo for? comparison and evaluation of cardiac structure and function She? is already on Eliquis 5 mg p.o. b.i.d. Patient is on Lasix 40 mg b.i.d. p.o. 3. CKD stage IV Creatinine is trending up Possible cardiorenal syndrome Consult enterprise application developer as kidney function to continue to worse 09/29: f/u repeat bmp to see if pt still needs lasix 4. Dizziness Patient feels like dizzy when patient stand up and walking, no focal weakness order orthostatic test, fall precaution PT/OT evaluation ordered 09/29: may still be dehydrated. will defer to nephrology and repeat bnp/bmp to see if lasix should be stopped. Time Spent With Patient Time: 40 min Subjective Date/time seen: 09/29/23 07:53 Interval history: pt is complaining of a dry cough, occasionally productive without significant discolored mucous, that has been ongoince since last Tuesday. Also reports feeling weak/dizzy when she gets up out of bed. Does not want to go home until she feels better. Exam Narrative: General physical exam:? patient lying in bed, appears a little tired and fatigued Head/eyes: Atraumatic, EOMI, PERRLA ENT: dry mucous membranes, nasal passages clear Neck: Supple, full range of motion, t
[2023-09-29 08:13] LABS: Glucose Point of Care 176 mg/dl (65-105)
[2023-09-29 09:00] LABS: Basophils Percent Auto 0.5 % (0.2-1.2); Eosinophils Absolute Auto 0.3 K/mm3 (0-0.3); Eosinophils Percent Auto 4.3 % (0-4.4); Hematocrit 30.9 % (37.0-47.0); Hemoglobin 9.6 g/dL (12.0-15.0); Immature Granulocyte Absolute 0.02 K/mm3 (0.00-0.031); Immature Granulocyte Percent A 0.3 % (0-0.5); Lymphocytes Absolute Auto 1.03 K/mm3 (0.9-3.2); Lymphocytes Percent Auto 15.9 % (18.3-44.2); Mean Corpuscular HGB Conc 31.1 g/dl (32-36); Mean Corpuscular Hemoglobin 32.7 pg (26-34); Mean Corpuscular Volume 105.1 fl (80-100); Mean Platelet Volume 9.6 fl (7.4-10.4); Monocytes Absolute Auto 0.5 K/mm3 (0.1-0.6); Monocytes Percent Auto 7.7 % (2.6-8.5); Neutrophils Absolute Auto 4.6 K/mm3 (1.3-6.7); Neutrophils Percent Auto 71.3 % (45.5-73.1); Platelet Count Result 226 k/mm3 (150-375); Red Blood Count 2.94 M/mm3 (4.2-5.4); Red Cell Distribution Width 15.9 % (11.5-14.5); White Blood Count 6.5 K/mm3 (4.5-10.0)
[2023-09-29 09:11] LABS: Macrocytosis 1+ (NORMAL); Platelet Estimate Adequate (Adequate); Schistocytes None Seen (NORMAL)
[2023-09-29 09:17] LABS: Anion Gap 8 mmol/L (8-16); Blood Urea Nitrogen 44 mg/dL (7-17); Calcium 7.9 mg/dL (8.4-10.2); Carbon Dioxide 27 mmol/L (22-30); Chloride 103 mmol/L (98-107); Estimated CRCL calculation 19 ml/min; Estimated Glomerular Filt Rate 16; Glucose 221 mg/dL (65-110); Sodium 138 mmol/L (137-145)
[2023-09-29 09:29] LABS: NT Pro B Type Natriuretic Pept 1980 pg/mL (19.9-100)
[2023-09-29] MEDS: BENZONATATE 100 MG CAPSULE 200 MG PO ×3 (09:48→16:49)
[2023-09-29] MEDS: APIXABAN 5 MG TABLET PO ×2 (09:48→20:45)
[2023-09-29] MEDS: GABAPENTIN 300 MG CAPSULE PO ×3 (09:48→16:49)
[2023-09-29] MEDS: ASPIRIN 81 MG ENTERIC TABLET PO (09:48)
[2023-09-29] MEDS: FAMOTIDINE 20 MG TABLET PO ×2 (09:48→20:45)
[2023-09-29] MEDS: AMIODARONE HCL 200 MG TABLET PO (09:48)
[2023-09-29] MEDS: EZETIMIBE 10 MG TABLET PO (09:48)
[2023-09-29] MEDS: FUROSEMIDE 40 MG TABLET PO (09:49)
[2023-09-29] MEDS: TAMSULOSIN HCL 0.4 MG CAPSULE PO (09:49)
[2023-09-29] MEDS: guaiFENesin 12 HR 600 MG TABCR PO ×2 (09:49→20:45)
[2023-09-29] MEDS: levoFLOXacin 500 MG TABLET PO (09:54)
[2023-09-29] MEDS: carvediloL 12.5 MG TABLET PO ×2 (09:54→20:45)
--- NOTE | 2023-09-29 11:15 | P.PNNP_ITS ---
Progress Note: A&P Assessment and Plan (1) LIV (acute kidney injury): Code(s): N17.9 - Acute kidney failure, unspecified Status: Acute Assessment and Plan: * suspect due to overdiuresis * despite elevated BNP, climically appears euvolemic * however, given IV diuretics since admission.... * back on oral diuretics that she takes as an outpatient * depending on trend of creatinine, may consider d/c diuretic therapy (2) Chronic kidney disease, stage IV (severe): Code(s): N18.4 - Chronic kidney disease, stage 4 (severe) Status: Chronic Assessment and Plan: * evidence of CKD that dates back to 2018 with slow progression of disease... * initially had been ~ 1.4 - 1.8mg/dl * then augustine to ~ 1.9 - 2.1mg/dl since early 2021 * more recently, running ~ 2.0 - 2.5mg/dl * due to HTN, DM, vascular disease, SUZANNE, and age-related change based on outpatient evaluation * follows with Dr. Carrillo for management of CKD (3) Cough: Qualifiers: Cough type: subacute Qualified Code(s): R05.2 - Subacute cough Code(s): R05 - Cough Status: Acute Assessment and Plan: * persitent since last hospital discharge last week * residual/ left over from repvious pneumonia(?) * resumed on antibioitc therapy * viral testing negative * empiric therapy for GERD * element of reactive airway disease(?) * continue supporrive therapy (4) Diastolic heart failure: Code(s): I50.30 - Unspecified diastolic (congestive) heart failure Status: Chronic Assessment and Plan: * appears compensated * Cardiology recommendations noted (5) Essential hypertension: Code(s): I10 - Essential (primary) hypertension Status: Chronic Assessment and Plan: * reasonable control since admission * follow trend of hemodynamics (6) SUZANNE (obstructive sleep apnea): Code(s): G47.33 - Obstructive sleep apnea (adult) (pediatric) Status: Acute Assessment and Plan: * continue use of CPAP (7) Diabetes: Code(s): E11.9 - Type 2 diabetes mellitus without complications Status: Chronic Assessment and Plan: * follow accuchecks * glycemic control per hospitalists Will continue to follow. Subjective Date/time seen: 09/29/23 11:15 Interval history: Follow-up on acute kidney injury/acute renal failure on chronic kidney disease. Renal function/creatinine up a bit but just recently transitioned to home oral diuretic regimen; still complaining of dry cough with some mild speutum production that seems about the same; no other acute issues/complaints voiced on my visit. Exam Narrative: General: elderly but WD/WN female in NAD Heart: normal S1 and S2; no rub Lungs: clear but diminished at bases Abdomen: soft, nontender, nondistended, positive bowel sounds Extremities: no cyanosis or clubbing; no edema Skin: warm and dry Objective Data Vital Signs Vital Signs: Vital Signs Temp Pulse Resp BP Pulse Ox O2 Del Method 09/29/23 11:00 98.5 F 80 20 146/50 H 98 09/29/23 08:00 97 Room Air 09/29/23 09:54 74 09/29/23 09:48 73 09/29/23 08:00 97.8 F 66 16 117/71 97 09/29/23 06:00 70 09/29/23 04:00 96 Room Air 09/29/23 04:00 72 09/29/23 04:00 97.9 F 67 20 132/55 L
--- NOTE | 2023-09-29 11:15 | PM.PNNEP ---
Progress Note: A&P Assessment and Plan (1) LIV (acute kidney injury): Code(s): N17.9 - Acute kidney failure, unspecified Status: Acute Assessment and Plan: suspect due to overdiuresis despite elevated BNP, climically appears euvolemic however, given IV diuretics since admission.... back on oral diuretics that she takes as an outpatient depending on trend of creatinine, may consider d/c diuretic therapy (2) Chronic kidney disease, stage IV (severe): Code(s): N18.4 - Chronic kidney disease, stage 4 (severe) Status: Chronic Assessment and Plan: evidence of CKD that dates back to 2018 with slow progression of disease... initially had been ~ 1.4 - 1.8mg/dl then augustine to ~ 1.9 - 2.1mg/dl since early 2021 more recently, running ~ 2.0 - 2.5mg/dl due to HTN, DM, vascular disease, SUZANNE, and age-related change based on outpatient evaluation follows with Dr. Carrillo for management of CKD (3) Cough: Qualifiers: Cough type: subacute Qualified Code(s): R05.2 - Subacute cough Code(s): R05 - Cough Status: Acute Assessment and Plan: persitent since last hospital discharge last week residual/ left over from repvious pneumonia(?) resumed on antibioitc therapy viral testing negative empiric therapy for GERD element of reactive airway disease(?) continue supporrive therapy (4) Diastolic heart failure: Code(s): I50.30 - Unspecified diastolic (congestive) heart failure Status: Chronic Assessment and Plan: appears compensated Cardiology recommendations noted (5) Essential hypertension: Code(s): I10 - Essential (primary) hypertension Status: Chronic Assessment and Plan: reasonable control since admission follow trend of hemodynamics (6) SUZANNE (obstructive sleep apnea): Code(s): G47.33 - Obstructive sleep apnea (adult) (pediatric) Status: Acute Assessment and Plan: continue use of CPAP (7) Diabetes: Code(s): E11.9 - Type 2 diabetes mellitus without complications Status: Chronic Assessment and Plan: follow accuchecks glycemic control per hospitalists Will continue to follow. Subjective Date/time seen: 09/29/23 11:15 Interval history: Follow-up on acute kidney injury/acute renal failure on chronic kidney disease. Renal function/creatinine up a bit but just recently transitioned to home oral diuretic regimen; still complaining of dry cough with some mild speutum production that seems about the same; no other acute issues/complaints voiced on my visit. Exam Narrative: General: elderly but WD/WN female in NAD Heart: normal S1 and S2; no rub Lungs: clear but diminished at bases Abdomen: soft, nontender, nondistended, positive bowel sounds Extremities: no cyanosis or clubbing; no edema Skin: warm and dry Objective Data Vital Signs Vital Signs: Vital Signs Temp Pulse Resp BP Pulse Ox O2 Del Method 09/29/23 11:00 98.5 F 80 20 146/50 H 98 09/29/23 08:00 97 Room Air 09/29/23 09:54 74 09/29/23 09:48 73 09/29/23 08:00 97.8 F 66 16 117/71 97 09/29/23 06:00 70 09/29/23 04:00 96 Room Air 09/29/23 04:00 72 09/29/23 04:00 97.9 F 67 20 132/55 L 95 09/29/23 02:00 60 09/29/23 00:00 96 Room Air 09/29/23 00:00 60 09/29/23 00:00 97.9 F 63 18 114/58 L 98 09/28/23 22:00 63 09/28/23 20:00 96 Room Air 09/28/23 20:00 70 09/28/23 20:42 73 09/28/23 20:00 97.4 F L 76 18 113/55 L 96 09/28/23 18:00 72 09/28/23 16:00 73 09/28/23 16:00 97 F L 67 20 96/49 L 93 09/28/23 16:00 96 Room Air 09/28/23 14:00 70 Intake/Output Intake/Output: Intake & Output 09/26/23 09/27/23 09/28/23 09/29/23 23:59 23:59 23:59 23:59 Intake Total 240 1560 1450 740 Output Total 1200 1650 650 550 Balance -9
[2023-09-29 12:04] LABS: Glucose Point of Care 198 mg/dl (65-105)
--- NOTE | 2023-09-29 12:19 | PCSTNOTE ---
Bedside swallowing evaluation completed. Patient seen in bed with head of bed elevated to achieve upright positioning of torso. Cursory oral peripheral examinataion results within functional limits. Patient complains of ongoing coughing and globus sensation. She states that her coughing does not seem to her to be related to swallowing but does occur often and sometimes phlegm is produced. Trials of thin liquid by straw and solid consistency food by fork were given in uncontrolled amounts. Patient coughed frequently during evaluation before, during, and after swallowing. Due to the frequency of coughing it is not possible to determine whether it is a soft sign of aspiration. No other signs of aspiration were observed. Patient is able to chew and swallow solid food without difficulty. She ate 100% of breakfast per aide. To evalute aspiration a modified barium swallow study is recommended and orders are in place. This procedure will be scheduled tomorrow. Physician contacted and in agreement. Recommendations: continue with current diet texture and liquid consistency (regular and thin) until MBSS completed. Thank you for the referral of this patient.
[2023-09-29] MEDS: metroNIDAZOLE 500 MG TABLET PO ×2 (13:10→20:46)
[2023-09-29] MEDS: ACETAMINOPHEN 500 MG TABLET PO ×2 (13:10→17:48)
[2023-09-29] MEDS: guaiFENesin/DEXTROMETHORPHAN 10 ML UDC PO ×2 (15:01→20:45)
--- NOTE | 2023-09-29 15:10 | PC.NURSE ---
This patient, Sarah Alvarado, was received from [id number] on 09/29/23 at 1510 . Patient/family oriented to unit policies and routines
--- NOTE | 2023-09-29 15:27 | PC.NURSE ---
This patient, Sarah Alvarado, was transferred to [[id number] ] on 09/29/23 at 1500. Personal belongings sent with patient. Report given to [ Karen PERDUE]. Appropriate documentation sent with patient.
[2023-09-29 15:49] LABS: RSV RNA, RT-PCR Negative (Negative)
[2023-09-29 16:33] LABS: Glucose Point of Care 220 mg/dl (65-105)
[2023-09-29] MEDS: INSULIN ASPART (*BKC) 100 UNITS/ML SUB-Q ×2 (16:52→20:57)
[2023-09-29] MEDS: ATORVASTATIN 40 MG TABLET 80 MG PO (20:45)
[2023-09-29] MEDS: MELATONIN 5 MG TABLET PO (20:45)
[2023-09-29] MEDS: DOCUSATE SODIUM 100 MG CAPSULE PO (20:46)
[2023-09-29 23:43] LABS: Glucose Point of Care 233 mg/dl (65-105)
[2023-09-30] VITALS (14 sets, daily range): BP systolic 124–151; BP diastolic 58–68; PULSE 56–80; RESP 16–20; TEMP 36.4–36.9; O2SAT 96–97
[2023-09-30] MEDS: HYDROcodone/acetaminophen (*CRX) 10-325 MG TABLET 1 TAB PO ×3 (00:39→17:20)
[2023-09-30] MEDS: metroNIDAZOLE 500 MG TABLET PO (05:43)
[2023-09-30] MEDS: ONDANSETRON HCL ODT 4 MG TABLET PO (05:43)
[2023-09-30] MEDS: ACETAMINOPHEN 500 MG TABLET PO ×3 (05:43→17:19)
[2023-09-30] MEDS: ONDANSETRON INJ 4 MG/2 ML VIAL IV PUSH (06:52)
[2023-09-30 07:00] LABS: Basophils Percent Auto 0.3 % (0.2-1.2); Eosinophils Absolute Auto 0.4 K/mm3 (0-0.3); Eosinophils Percent Auto 5.7 % (0-4.4); Hematocrit 30.8 % (37.0-47.0); Hemoglobin 9.6 g/dL (12.0-15.0); Immature Granulocyte Absolute 0.03 K/mm3 (0.00-0.031); Immature Granulocyte Percent A 0.5 % (0-0.5); Lymphocytes Absolute Auto 0.88 K/mm3 (0.9-3.2); Lymphocytes Percent Auto 14.4 % (18.3-44.2); Mean Corpuscular HGB Conc 31.2 g/dl (32-36); Mean Corpuscular Hemoglobin 32.9 pg (26-34); Mean Corpuscular Volume 105.5 fl (80-100); Mean Platelet Volume 9.8 fl (7.4-10.4); Monocytes Absolute Auto 0.6 K/mm3 (0.1-0.6); Monocytes Percent Auto 9.5 % (2.6-8.5); Neutrophils Absolute Auto 4.3 K/mm3 (1.3-6.7); Neutrophils Percent Auto 69.6 % (45.5-73.1); Platelet Count Result 216 k/mm3 (150-375); Red Blood Count 2.92 M/mm3 (4.2-5.4); Red Cell Distribution Width 15.8 % (11.5-14.5); White Blood Count 6.1 K/mm3 (4.5-10.0)
[2023-09-30 07:12] LABS: Albumin Level 2.9 g/dL (3.5-5.1); Anion Gap 7 mmol/L (8-16); Blood Urea Nitrogen 47 mg/dL (7-17); Carbon Dioxide 25 mmol/L (22-30); Chloride 107 mmol/L (98-107); Estimated CRCL calculation 19 ml/min; Estimated Glomerular Filt Rate 16; Glucose 170 mg/dL (65-110); Phosphorus 5.3 mg/dL (2.5-4.5); Potassium 4.5 mmol/L (3.4-5.0); Sodium 139 mmol/L (137-145)
[2023-09-30 07:55] LABS: Glucose Point of Care 173 mg/dl (65-105)
[2023-09-30] MEDS: levoFLOXacin 250 MG TABLET PO (08:35)
[2023-09-30] MEDS: TAMSULOSIN HCL 0.4 MG CAPSULE PO (08:36)
[2023-09-30] MEDS: AMIODARONE HCL 200 MG TABLET PO (08:36)
[2023-09-30] MEDS: APIXABAN 5 MG TABLET PO ×2 (08:36→21:08)
[2023-09-30] MEDS: FUROSEMIDE 40 MG TABLET PO (08:37)
[2023-09-30] MEDS: GABAPENTIN 300 MG CAPSULE PO ×3 (08:37→17:19)
[2023-09-30] MEDS: guaiFENesin 12 HR 600 MG TABCR PO ×2 (08:37→21:08)
[2023-09-30] MEDS: ASPIRIN 81 MG ENTERIC TABLET PO (08:37)
[2023-09-30] MEDS: BENZONATATE 100 MG CAPSULE 200 MG PO ×3 (08:37→17:19)
[2023-09-30] MEDS: EZETIMIBE 10 MG TABLET PO (08:37)
[2023-09-30] MEDS: FAMOTIDINE 20 MG TABLET PO ×2 (08:37→21:07)
[2023-09-30] MEDS: guaiFENesin/DEXTROMETHORPHAN 10 ML UDC PO (08:44)
--- NOTE | 2023-09-30 11:12 | PM.IMPN ---
Progress Note: A&P Assessment and Plan (1) Paroxysmal atrial flutter: Code(s): I48.92 - Unspecified atrial flutter Status: Acute (2) Cough: Qualifiers: Cough type: subacute Qualified Code(s): R05.2 - Subacute cough Code(s): R05 - Cough Status: Acute (3) Acute exacerbation of CHF (congestive heart failure): Qualifiers: Heart failure type: unspecified Qualified Code(s): I50.9 - Heart failure, unspecified Code(s): I50.9 - Heart failure, unspecified Status: Acute (4) Weakness: Code(s): R53.1 - Weakness Status: Acute (5) Elevated troponin: Code(s): R79.89 - Other specified abnormal findings of blood chemistry Status: Acute (6) Acute kidney injury superimposed on CKD: Code(s): N17.9 - Acute kidney failure, unspecified; N18.9 - Chronic kidney disease, unspecified Status: Acute (7) Pneumonia: Code(s): J18.9 - Pneumonia, unspecified organism Status: Acute (8) Dehydration: Code(s): E86.0 - Dehydration Status: Acute (9) Elevated brain natriuretic peptide (BNP) level: Code(s): R79.89 - Other specified abnormal findings of blood chemistry Status: Acute (10) LIV (acute kidney injury): Code(s): N17.9 - Acute kidney failure, unspecified Status: Acute (11) Community acquired pneumonia: Code(s): J18.9 - Pneumonia, unspecified organism Status: Acute (12) Stage III chronic kidney disease: Code(s): N18.3 - Chronic kidney disease, stage 3 (moderate) Status: Acute (13) Essential hypertension: Code(s): I10 - Essential (primary) hypertension Status: Chronic (14) Dyslipidemia: Code(s): E78.5 - Hyperlipidemia, unspecified Status: Acute Plan 1. Cough of unclear origin differential includes chf exacerbation, ongoing pneumonia not fully treated, GERD, copd related cough, ACS is unlikely, side effect of sitagliptin, sputum cx shows oral yoni- c/f aspiration influenza a/b/covid neg. f/u rsv f/u swallow eval. will need repeat MBS- from [facility] on 02/2021 Pharyngeal Phase:? Reduced laryngeal elevation and laryngeal penetration Start bid famotidine 20 mg for suspected GERD Start levo/flagyl for another 7 days of treatment to cover CAP or atypical pna that has not been fully treated and aspiration fortunately does not have wheezing so does not appear to have a copd exacerbation 09/30: cough most likely related to chronic aspiration and inability to protect oral secretions. GERD and primary lung disease also in the differential. Unlikely chf now. robitussin dm bid and guaifenesin bid are not reducing cough RSV neg started glycopyrrolate 0.5 mg bid will start BID protonix 20 mg as well F/u high res CT non con to assess pt for ILD, emphysema, or pulmonary cause of chronic cough Will start q6 scheduled ipratropium nebs and 20 mg q6 scheduled robitussin DM for cough suppression 2. CHF exacerbation, elevated troponin Continue with current medications Continue gentle IV? diuresis Strict? I&Os Patient has minimally elevated troponins without any chest pain Cardiology consult given for evaluation and treatment recommendations Cardiology evaluated the patient and ordered a [id number] echo for? comparison and evaluation of cardiac structure and function She? is already on Eliquis 5 mg p.o. b.i.d. Patient is on Lasix 40 mg b.i.d. p.o. 09/30: stopping lasix. Cr is rising. can be discharged on a qd lasix, 20 or 40 mg. BNP now 1980 from 6390 Pt has mild diastolic CHF. normal LV systolic dysfunction, ef 65-70%. moderate concentric LV thickening. mild pulm htn 42 mm Hg. she may need a mild dose of lasix, but mainly bp control will be necessary. 3. CKD stage IV Creatinine is trending up Possible cardiorenal syndrome Consult saw tailer as kidney function to continue to worse 09/29: f/u repeat bmp to see if pt still needs lasix 09/30: stopping lasix. consider starting ca
[2023-09-30 11:42] LABS: Glucose Point of Care 203 mg/dl (65-105)
--- NOTE | 2023-09-30 11:50 | PCOTNOTE ---
Patient unavailable at this time. Patient going down for a CT at this time. Will try back.
--- NOTE | 2023-09-30 11:52 | P.PNNP_ITS ---
Progress Note: A&P Assessment and Plan (1) LIV (acute kidney injury): Code(s): N17.9 - Acute kidney failure, unspecified Status: Acute Assessment and Plan: * suspect due to overdiuresis * despite elevated BNP, clinically appears euvolemic * however, given IV diuretics since admission.... * started on oral diuretics that she takes as an outpatient a few days ago * given trend of creatinine, d/c diuretic therapy * check urine elecrolytes and renal ultrasound (2) Chronic kidney disease, stage IV (severe): Code(s): N18.4 - Chronic kidney disease, stage 4 (severe) Status: Chronic Assessment and Plan: * evidence of CKD that dates back to 2018 with slow progression of disease... * initially had been ~ 1.4 - 1.8mg/dl * then augustine to ~ 1.9 - 2.1mg/dl since early 2021 * more recently, running ~ 2.0 - 2.5mg/dl * due to HTN, DM, vascular disease, SUZANNE, and age-related change based on outpatient evaluation * follows with Dr. Carrillo for management of CKD (3) Cough: Qualifiers: Cough type: subacute Qualified Code(s): R05.2 - Subacute cough Code(s): R05 - Cough Status: Acute Assessment and Plan: * persitent since last hospital discharge last week * residual/ left over from repvious pneumonia(?) * resumed on antibioitc therapy * viral testing negative * empiric therapy for GERD * MBS evaluation noted * element of reactive airway disease(?) * CT of chest ordered * continue supporrive therapy (4) Diastolic heart failure: Code(s): I50.30 - Unspecified diastolic (congestive) heart failure Status: Chronic Assessment and Plan: * appears compensated * Cardiology recommendations noted (5) Essential hypertension: Code(s): I10 - Essential (primary) hypertension Status: Chronic Assessment and Plan: * reasonable control since admission * follow trend of hemodynamics (6) SUZANNE (obstructive sleep apnea): Code(s): G47.33 - Obstructive sleep apnea (adult) (pediatric) Status: Acute Assessment and Plan: * continue use of CPAP (7) Diabetes: Code(s): E11.9 - Type 2 diabetes mellitus without complications Status: Chronic Assessment and Plan: * follow accuchecks * glycemic control per hospitalists Will continue to follow. Subjective Date/time seen: 09/30/23 11:52 Interval history: Follow-up on acute kidney injury/acute renal failure on chronic kidney disease. Still with persistent cough that seems about the same since admission; creatinine/renal funciton unchanged so oral diuretic therapy discontinued; no other acute issues/events overnight or earlier this morning.. Exam Narrative: General: elderly but WD/WN female in NAD Heart: normal S1 and S2; no rub Lungs: clear but diminished at bases Abdomen: soft, nontender, nondistended, positive bowel sounds Extremities: no cyanosis or clubbing; no edema Skin: warm and intact Objective Data Vital Signs Vital Signs: Vital Signs Temp Pulse Resp BP Pulse Ox O2 Del Method 09/30/23 08:36 58 L 09/30/23 06:00 97.6 F 56 L 18 133/58 L 96 09/30/23 04:00 60 09/30/23 00:00 61 09/29/23 20:00 69 09/29/23 22:00 98.0 F 71 16 115/55 L 97 09/29/23 20:00 Room Air 09/29/23 15
--- NOTE | 2023-09-30 11:52 | PM.PNNEP ---
Progress Note: A&P Assessment and Plan (1) LIV (acute kidney injury): Code(s): N17.9 - Acute kidney failure, unspecified Status: Acute Assessment and Plan: suspect due to overdiuresis despite elevated BNP, clinically appears euvolemic however, given IV diuretics since admission.... started on oral diuretics that she takes as an outpatient a few days ago given trend of creatinine, d/c diuretic therapy check urine elecrolytes and renal ultrasound (2) Chronic kidney disease, stage IV (severe): Code(s): N18.4 - Chronic kidney disease, stage 4 (severe) Status: Chronic Assessment and Plan: evidence of CKD that dates back to 2018 with slow progression of disease... initially had been ~ 1.4 - 1.8mg/dl then augustine to ~ 1.9 - 2.1mg/dl since early 2021 more recently, running ~ 2.0 - 2.5mg/dl due to HTN, DM, vascular disease, SUZANNE, and age-related change based on outpatient evaluation follows with Dr. Carrillo for management of CKD (3) Cough: Qualifiers: Cough type: subacute Qualified Code(s): R05.2 - Subacute cough Code(s): R05 - Cough Status: Acute Assessment and Plan: persitent since last hospital discharge last week residual/ left over from repvious pneumonia(?) resumed on antibioitc therapy viral testing negative empiric therapy for GERD MBS evaluation noted element of reactive airway disease(?) CT of chest ordered continue supporrive therapy (4) Diastolic heart failure: Code(s): I50.30 - Unspecified diastolic (congestive) heart failure Status: Chronic Assessment and Plan: appears compensated Cardiology recommendations noted (5) Essential hypertension: Code(s): I10 - Essential (primary) hypertension Status: Chronic Assessment and Plan: reasonable control since admission follow trend of hemodynamics (6) SUZANNE (obstructive sleep apnea): Code(s): G47.33 - Obstructive sleep apnea (adult) (pediatric) Status: Acute Assessment and Plan: continue use of CPAP (7) Diabetes: Code(s): E11.9 - Type 2 diabetes mellitus without complications Status: Chronic Assessment and Plan: follow accuchecks glycemic control per hospitalists Will continue to follow. Subjective Date/time seen: 09/30/23 11:52 Interval history: Follow-up on acute kidney injury/acute renal failure on chronic kidney disease. Still with persistent cough that seems about the same since admission; creatinine/renal funciton unchanged so oral diuretic therapy discontinued; no other acute issues/events overnight or earlier this morning.. Exam Narrative: General: elderly but WD/WN female in NAD Heart: normal S1 and S2; no rub Lungs: clear but diminished at bases Abdomen: soft, nontender, nondistended, positive bowel sounds Extremities: no cyanosis or clubbing; no edema Skin: warm and intact Objective Data Vital Signs Vital Signs: Vital Signs Temp Pulse Resp BP Pulse Ox O2 Del Method 09/30/23 08:36 58 L 09/30/23 06:00 97.6 F 56 L 18 133/58 L 96 09/30/23 04:00 60 09/30/23 00:00 61 09/29/23 20:00 69 09/29/23 22:00 98.0 F 71 16 115/55 L 97 09/29/23 20:00 Room Air 09/29/23 15:10 Room Air 09/29/23 16:02 77 09/29/23 15:18 98.0 F 79 16 143/67 H 100 Intake/Output Intake/Output: Intake & Output 09/27/23 09/28/23 09/29/23 09/30/23 23:59 23:59 23:59 23:59 Intake Total 1560 1450 1010 Output Total 1650 650 550 900 Balance -90 800 460 -900 Meds/Results Medications: Active Medications Generic Name Dose Route Start Last Admin Trade Name Freq PRN Reason Stop Dose Admin Acetaminophen 500 mg 09/27/23 00:00 09/30/23 05:43 Acetaminophen 500 Mg Tablet PO 500 mg Q6HR CODY Administration Hydrocodone Bitart/Acetaminophen 1 tab 09/26/23 21:41 09/30/23 08:36 Hydrocodo
--- NOTE | 2023-09-30 12:35 | PCOTNOTE ---
Attempted to see Patient this afternoon. Patient stated, feeling horrible, I'm so nauseated and having dry heaves . Patient declined to participate in any activities.
--- NOTE | 2023-09-30 12:48 | PCSTNOTE ---
Please refer to the Modified Barium Swallow Evaluation in the EMR.
[2023-09-30] MEDS: carvediloL 12.5 MG TABLET PO ×2 (13:32→21:08)
[2023-09-30] MEDS: IPRATROPIUM BR 0.02% INH SOLN 0.5 MG/2.5 ML VIAL INHALATION ×2 (13:33→20:55)
[2023-09-30] MEDS: guaiFENesin/DEXTROMETHORPHAN 10 ML UDC 20 ML PO ×2 (13:34→17:24)
[2023-09-30] MEDS: PANTOPRAZOLE SOD SESQUIHYDRATE 20 MG TAB PO ×2 (13:34→21:08)
[2023-09-30] MEDS: GLYCOPYRROLATE 1 MG TABLET 0.5 MG PO (13:34)
[2023-09-30 16:36] LABS: Glucose Point of Care 211 mg/dl (65-105)
[2023-09-30] MEDS: INSULIN ASPART (*BKC) 100 UNITS/ML SUB-Q ×2 (17:24→21:15)
[2023-09-30] MEDS: ATORVASTATIN 40 MG TABLET 80 MG PO (21:07)
[2023-09-30] MEDS: MELATONIN 5 MG TABLET PO (21:08)
[2023-09-30] MEDS: DOCUSATE SODIUM 100 MG CAPSULE PO (21:08)
[2023-09-30 21:49] LABS: Glucose Point of Care 220 mg/dl (65-105)
[2023-10-01] VITALS (15 sets, daily range): BP systolic 117–132; BP diastolic 56–65; PULSE 58–79; RESP 14–20; TEMP 36–36.7; O2SAT 93
[2023-10-01] MEDS: HYDROcodone/acetaminophen (*CRX) 10-325 MG TABLET 1 TAB PO ×2 (03:38→16:15)
[2023-10-01] MEDS: guaiFENesin/DEXTROMETHORPHAN 10 ML UDC 20 ML PO ×4 (03:39→21:17)
[2023-10-01 06:48] LABS: Basophils Percent Auto 0.5 % (0.2-1.2); Eosinophils Absolute Auto 0.3 K/mm3 (0-0.3); Eosinophils Percent Auto 4.9 % (0-4.4); Hematocrit 31.1 % (37.0-47.0); Hemoglobin 9.4 g/dL (12.0-15.0); Immature Granulocyte Absolute 0.04 K/mm3 (0.00-0.031); Immature Granulocyte Percent A 0.6 % (0-0.5); Lymphocytes Absolute Auto 0.71 K/mm3 (0.9-3.2); Lymphocytes Percent Auto 11.1 % (18.3-44.2); Mean Corpuscular HGB Conc 30.2 g/dl (32-36); Mean Corpuscular Hemoglobin 32.4 pg (26-34); Mean Corpuscular Volume 107.2 fl (80-100); Monocytes Absolute Auto 0.5 K/mm3 (0.1-0.6); Monocytes Percent Auto 8.3 % (2.6-8.5); Neutrophils Absolute Auto 4.8 K/mm3 (1.3-6.7); Neutrophils Percent Auto 74.6 % (45.5-73.1); Platelet Count Result 225 k/mm3 (150-375); Red Cell Distribution Width 15.8 % (11.5-14.5); White Blood Count 6.4 K/mm3 (4.5-10.0)
[2023-10-01 06:55] LABS: Albumin Level 2.8 g/dL (3.5-5.1); Anion Gap 5 mmol/L (8-16); Blood Urea Nitrogen 46 mg/dL (7-17); Calcium 8.2 mg/dL (8.4-10.2); Carbon Dioxide 28 mmol/L (22-30); Chloride 105 mmol/L (98-107); Estimated CRCL calculation 19 ml/min; Estimated Glomerular Filt Rate 16; Glucose 174 mg/dL (65-110); Phosphorus 5.4 mg/dL (2.5-4.5); Potassium 4.4 mmol/L (3.4-5.0); Sodium 138 mmol/L (137-145)
[2023-10-01 07:28] LABS: Glucose Point of Care 162 mg/dl (65-105)
[2023-10-01] MEDS: PANTOPRAZOLE SOD SESQUIHYDRATE 20 MG TAB PO ×2 (08:23→21:17)
[2023-10-01] MEDS: GABAPENTIN 300 MG CAPSULE PO ×3 (08:23→16:16)
[2023-10-01] MEDS: APIXABAN 5 MG TABLET PO ×2 (08:23→21:18)
[2023-10-01] MEDS: AMIODARONE HCL 200 MG TABLET PO (08:24)
[2023-10-01] MEDS: ASPIRIN 81 MG ENTERIC TABLET PO (08:24)
[2023-10-01] MEDS: BENZONATATE 100 MG CAPSULE 200 MG PO ×3 (08:25→16:15)
[2023-10-01] MEDS: FAMOTIDINE 20 MG TABLET PO ×2 (08:25→21:17)
[2023-10-01] MEDS: guaiFENesin 12 HR 600 MG TABCR PO ×2 (08:25→21:19)
[2023-10-01] MEDS: EZETIMIBE 10 MG TABLET PO (08:25)
[2023-10-01] MEDS: TAMSULOSIN HCL 0.4 MG CAPSULE PO (08:25)
[2023-10-01 11:25] LABS: Creatinine Urine 79.5 mg/dL; Urea Random Urine 489 MG/DL
[2023-10-01] MEDS: carvediloL 12.5 MG TABLET PO ×2 (11:25→21:17)
[2023-10-01] MEDS: ACETAMINOPHEN 500 MG TABLET PO ×3 (11:25→23:43)
--- NOTE | 2023-10-01 11:26 | PCRCNOTE ---
Window of time for administration has passed. See next scheduled administration.
[2023-10-01 11:31] LABS: Sodium Urine Random 68 meq/L
[2023-10-01 11:40] LABS: Total Protein Urine Random 272 mg/dL; Ur Ttl Prot Creatinine Ratio 3.42 mg/mg (0-0.20)
[2023-10-01 11:45] LABS: Eosinophil Urine None Seen % (None Seen); Urine Eos QC 2nd Tech Confirmed
[2023-10-01 11:48] LABS: Glucose Point of Care 215 mg/dl (65-105)
[2023-10-01] MEDS: INSULIN ASPART (*BKC) 100 UNITS/ML SUB-Q ×2 (12:21→21:21)
--- NOTE | 2023-10-01 13:46 | P.PNNP_ITS ---
Progress Note: A&P Assessment and Plan (1) LIV (acute kidney injury): Code(s): N17.9 - Acute kidney failure, unspecified Status: Acute Assessment and Plan: * Acute kidney injury. * BNP was high. Her exam however looks good and her chest x-ray does not show fluid. * I agree that her higher creatinine may be due to overdiuresis * Urine electrolytes are non pre renal but fractional excretion of urea is lower than 39%. * Off diuretics. * renal ultrasound is pending * Continue holding diuretics for now. * Creatinine is about the same. Check another 1 tomorrow. * (2) Chronic kidney disease, stage IV (severe): Code(s): N18.4 - Chronic kidney disease, stage 4 (severe) Status: Chronic Assessment and Plan: * evidence of CKD that dates back to 2018 with slow progression of disease... * initially had been ~ 1.4 - 1.8mg/dl * then augustine to ~ 1.9 - 2.1mg/dl since early 2021 * more recently, running ~ 2.0 - 2.5mg/dl * due to HTN, DM, vascular disease, SUZANNE, and age-related change based on outpatient evaluation * follows with Dr. Carrillo for management of CKD (3) Cough: Qualifiers: Cough type: subacute Qualified Code(s): R05.2 - Subacute cough Code(s): R05 - Cough Status: Acute Assessment and Plan: * persitent since last hospital discharge last week * residual/ left over from repvious pneumonia(?) * resumed on antibioitc therapy * viral testing negative * empiric therapy for GERD * MBS evaluation noted * element of reactive airway disease(?) * CT of chest noted. It does show some patchy airspace opacities in the upper lobes. * She is getting a swallow test in case there is some aspiration. * continue supportive therapy * She does have some issues with speech and also now possibly with swallowing. Will check an MRI to be sure there is not anything going on centrally. (4) Diastolic heart failure: Code(s): I50.30 - Unspecified diastolic (congestive) heart failure Status: Chronic Assessment and Plan: * appears compensated * Cardiology recommendations noted (5) Essential hypertension: Code(s): I10 - Essential (primary) hypertension Status: Chronic Assessment and Plan: * reasonable control since admission * follow trend of hemodynamics (6) SUZANNE (obstructive sleep apnea): Code(s): G47.33 - Obstructive sleep apnea (adult) (pediatric) Status: Acute Assessment and Plan: * continue use of CPAP (7) Diabetes: Code(s): E11.9 - Type 2 diabetes mellitus without complications Status: Chronic Assessment and Plan: * follow accuchecks * glycemic control per hospitalists Will continue to follow. Subjective Date/time seen: 10/01/23 13:46 Interval history: Daughter, Mikki, in the room. Patient is feeling about the same. Some trouble forming words. Most words come out fine but has some hesitation with some words. Mikki agrees that this is not normal for her. There is also some issue with her swallowing and so she is going to get a swallowing test Exam Narrative: General: elderly but WD/WN female in NAD Heart: normal S1 and S2; no rub no gallop Lungs: clear but diminished at bases Abdomen: soft, nontender, nondistended, positive bowel sounds Extremities: no edema Skin: No rash Objective Data Vital Signs Vital Signs: Vital Signs - 24 hr
--- NOTE | 2023-10-01 13:46 | PM.PNNEP ---
Progress Note: A&P Assessment and Plan (1) LIV (acute kidney injury): Code(s): N17.9 - Acute kidney failure, unspecified Status: Acute Assessment and Plan: Acute kidney injury. BNP was high. Her exam however looks good and her chest x-ray does not show fluid. I agree that her higher creatinine may be due to overdiuresis Urine electrolytes are non pre renal but fractional excretion of urea is lower than 39%. Off diuretics. renal ultrasound is pending Continue holding diuretics for now. Creatinine is about the same. Check another 1 tomorrow. (2) Chronic kidney disease, stage IV (severe): Code(s): N18.4 - Chronic kidney disease, stage 4 (severe) Status: Chronic Assessment and Plan: evidence of CKD that dates back to 2018 with slow progression of disease... initially had been ~ 1.4 - 1.8mg/dl then augustine to ~ 1.9 - 2.1mg/dl since early 2021 more recently, running ~ 2.0 - 2.5mg/dl due to HTN, DM, vascular disease, SUZANNE, and age-related change based on outpatient evaluation follows with Dr. Carrillo for management of CKD (3) Cough: Qualifiers: Cough type: subacute Qualified Code(s): R05.2 - Subacute cough Code(s): R05 - Cough Status: Acute Assessment and Plan: persitent since last hospital discharge last week residual/ left over from repvious pneumonia(?) resumed on antibioitc therapy viral testing negative empiric therapy for GERD MBS evaluation noted element of reactive airway disease(?) CT of chest noted. It does show some patchy airspace opacities in the upper lobes. She is getting a swallow test in case there is some aspiration. continue supportive therapy She does have some issues with speech and also now possibly with swallowing. Will check an MRI to be sure there is not anything going on centrally. (4) Diastolic heart failure: Code(s): I50.30 - Unspecified diastolic (congestive) heart failure Status: Chronic Assessment and Plan: appears compensated Cardiology recommendations noted (5) Essential hypertension: Code(s): I10 - Essential (primary) hypertension Status: Chronic Assessment and Plan: reasonable control since admission follow trend of hemodynamics (6) SUZANNE (obstructive sleep apnea): Code(s): G47.33 - Obstructive sleep apnea (adult) (pediatric) Status: Acute Assessment and Plan: continue use of CPAP (7) Diabetes: Code(s): E11.9 - Type 2 diabetes mellitus without complications Status: Chronic Assessment and Plan: follow accuchecks glycemic control per hospitalists Will continue to follow. Subjective Date/time seen: 10/01/23 13:46 Interval history: Daughter, Mikki, in the room. Patient is feeling about the same. Some trouble forming words. Most words come out fine but has some hesitation with some words. Mikki agrees that this is not normal for her. There is also some issue with her swallowing and so she is going to get a swallowing test Exam Narrative: General: elderly but WD/WN female in NAD Heart: normal S1 and S2; no rub no gallop Lungs: clear but diminished at bases Abdomen: soft, nontender, nondistended, positive bowel sounds Extremities: no edema Skin: No rash Objective Data Vital Signs Vital Signs: Vital Signs - 24 hr 09/30/23 14:00 09/30/23 20:55 09/30/23 21:06 Temperature 98.5 F Pulse Rate 80 65 61 Respiratory Rate 18 20 20 Blood Pressure 151/68 H Pulse Oximetry 97 Oxygen Delivery 09/30/23 20:00 09/30/23 22:00 09/30/23 20:00 Temperature 98.2 F Pulse Rate 69 71 Respiratory Rate 16 Blood Pressure 124/60 Pulse Oximetry 97 Oxygen Delivery Room Air 10/01/23 00:00 10/01/23 04:00 10/01/23 06:00 Temperature 98.0 F Pulse Rate 63 70 69 Respiratory Rate 16 Blood Pressure 118/65 Pulse Oximetry 93 Oxygen Delivery
[2023-10-01] MEDS: IPRATROPIUM BR 0.02% INH SOLN 0.5 MG/2.5 ML VIAL INHALATION ×2 (15:13→20:11)
[2023-10-01 16:35] LABS: Glucose Point of Care 170 mg/dl (65-105)
--- NOTE | 2023-10-01 17:20 | PC.NURSE ---
This RN has educated both the pt and family on the recommended diet; the recommendations are moderately-thickened liquids with soft and bite-sized foods. The pt's family is bringing in foods and drinks that are not following the diet recommended. This RN re-educated both the pt and family. This RN has notified the MD of the present situation.
--- NOTE | 2023-10-01 18:52 | PM.IMPN ---
Progress Note: A&P Assessment and Plan (1) Paroxysmal atrial flutter: Code(s): I48.92 - Unspecified atrial flutter Status: Acute (2) Cough: Qualifiers: Cough type: subacute Qualified Code(s): R05.2 - Subacute cough Code(s): R05 - Cough Status: Acute (3) Acute exacerbation of CHF (congestive heart failure): Qualifiers: Heart failure type: unspecified Qualified Code(s): I50.9 - Heart failure, unspecified Code(s): I50.9 - Heart failure, unspecified Status: Acute (4) Weakness: Code(s): R53.1 - Weakness Status: Acute (5) Elevated troponin: Code(s): R79.89 - Other specified abnormal findings of blood chemistry Status: Acute (6) Acute kidney injury superimposed on CKD: Code(s): N17.9 - Acute kidney failure, unspecified; N18.9 - Chronic kidney disease, unspecified Status: Acute (7) Pneumonia: Code(s): J18.9 - Pneumonia, unspecified organism Status: Acute (8) Dehydration: Code(s): E86.0 - Dehydration Status: Acute (9) Elevated brain natriuretic peptide (BNP) level: Code(s): R79.89 - Other specified abnormal findings of blood chemistry Status: Acute (10) LIV (acute kidney injury): Code(s): N17.9 - Acute kidney failure, unspecified Status: Acute (11) Community acquired pneumonia: Code(s): J18.9 - Pneumonia, unspecified organism Status: Acute (12) Stage III chronic kidney disease: Code(s): N18.3 - Chronic kidney disease, stage 3 (moderate) Status: Acute (13) Essential hypertension: Code(s): I10 - Essential (primary) hypertension Status: Chronic (14) Dyslipidemia: Code(s): E78.5 - Hyperlipidemia, unspecified Status: Acute Plan 1. Cough of unclear origin differential includes chf exacerbation, ongoing pneumonia not fully treated, GERD, copd related cough, ACS is unlikely, side effect of sitagliptin, sputum cx shows oral yoni- c/f aspiration influenza a/b/covid neg. f/u rsv f/u swallow eval. will need repeat MBS- from MBS on 02/2021 Pharyngeal Phase:? Reduced laryngeal elevation and laryngeal penetration Start bid famotidine 20 mg for suspected GERD Start levo/flagyl for another 7 days of treatment to cover CAP or atypical pna that has not been fully treated and aspiration fortunately does not have wheezing so does not appear to have a copd exacerbation 09/30: cough most likely related to chronic aspiration and inability to protect oral secretions. GERD and primary lung disease also in the differential. Unlikely chf now. 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 Neurology consulted. 2. CHF exacerbation, elevated troponin Continue with current medications Continue gentle IV? diuresis Strict? I&Os Patient has minimally elevated troponins without any chest pain Cardiology consult given for evaluation and treatment recommendations Cardiology evaluated the patient and ordered a [id number] echo for? comparison and evaluation of cardiac structure and function She? is already on Eliquis 5 mg p.o. b.i.d. Patient is on Lasix 40 mg b.i.d. p.o. 09/30: stopping lasix. Cr is rising. can be discharged on a qd lasix, 20 or 40 mg. BNP now 1980 from 6390 Pt has mild diastolic CHF. normal LV systolic dysfunction, ef 65-70%. moderate concentric LV thickening. mild pulm htn 42 mm Hg. she may need a mild dose of lasix, but mainly bp control will be necessary. 10/01: ct to hold lasix. 3. CKD stage IV Creatinine is trending up Possible cardiorenal syndrome Consult manager assessment as kidney function to
[2023-10-01 20:41] LABS: Glucose Point of Care 294 mg/dl (65-105)
[2023-10-01] MEDS: ATORVASTATIN 40 MG TABLET 80 MG PO (21:17)
[2023-10-01] MEDS: INSULIN GLARGINE (*BKC) 100 UNITS/ML SUB-Q (21:19)
[2023-10-01] MEDS: DOCUSATE SODIUM 100 MG CAPSULE PO (21:19)
[2023-10-01] MEDS: MELATONIN 5 MG TABLET PO (21:19)
[2023-10-02] VITALS (17 sets, daily range): BP systolic 143–151; BP diastolic 68–83; PULSE 58–77; RESP 13–18; TEMP 36.1–36.3; O2SAT 91–100
[2023-10-02] MEDS: ACETAMINOPHEN 500 MG TABLET PO ×3 (05:19→16:51)
[2023-10-02] MEDS: HYDROcodone/acetaminophen (*CRX) 10-325 MG TABLET 1 TAB PO ×2 (05:22→14:34)
[2023-10-02 06:30] LABS: Basophils Percent Auto 0.5 % (0.2-1.2); Eosinophils Absolute Auto 0.4 K/mm3 (0-0.3); Eosinophils Percent Auto 7.4 % (0-4.4); Hematocrit 30.7 % (37.0-47.0); Hemoglobin 9.5 g/dL (12.0-15.0); Immature Granulocyte Absolute 0.02 K/mm3 (0.00-0.031); Immature Granulocyte Percent A 0.4 % (0-0.5); Lymphocytes Absolute Auto 0.72 K/mm3 (0.9-3.2); Lymphocytes Percent Auto 12.6 % (18.3-44.2); Mean Corpuscular HGB Conc 30.9 g/dl (32-36); Mean Corpuscular Hemoglobin 32.8 pg (26-34); Mean Corpuscular Volume 105.9 fl (80-100); Mean Platelet Volume 9.9 fl (7.4-10.4); Monocytes Absolute Auto 0.5 K/mm3 (0.1-0.6); Monocytes Percent Auto 8.8 % (2.6-8.5); Neutrophils Percent Auto 70.3 % (45.5-73.1); Platelet Count Result 240 k/mm3 (150-375); Red Cell Distribution Width 15.7 % (11.5-14.5); White Blood Count 5.7 K/mm3 (4.5-10.0)
[2023-10-02 06:39] LABS: Anion Gap 8 mmol/L (8-16); Blood Urea Nitrogen 50 mg/dL (7-17); Calcium 8.4 mg/dL (8.4-10.2); Carbon Dioxide 25 mmol/L (22-30); Chloride 103 mmol/L (98-107); Estimated CRCL calculation 18 ml/min; Estimated Glomerular Filt Rate 15; Glucose 147 mg/dL (65-110); Phosphorus 5.5 mg/dL (2.5-4.5); Potassium 4.5 mmol/L (3.4-5.0); Sodium 136 mmol/L (137-145)
[2023-10-02 07:53] LABS: Glucose Point of Care 153 mg/dl (65-105)
[2023-10-02] MEDS: IPRATROPIUM BR 0.02% INH SOLN 0.5 MG/2.5 ML VIAL INHALATION ×3 (08:33→20:17)
[2023-10-02] MEDS: BENZONATATE 100 MG CAPSULE 200 MG PO ×3 (08:46→16:51)
[2023-10-02] MEDS: guaiFENesin/DEXTROMETHORPHAN 10 ML UDC 20 ML PO ×3 (08:46→16:51)
[2023-10-02] MEDS: EZETIMIBE 10 MG TABLET PO (08:46)
[2023-10-02] MEDS: TAMSULOSIN HCL 0.4 MG CAPSULE PO (08:47)
[2023-10-02] MEDS: APIXABAN 5 MG TABLET PO ×2 (08:47→20:57)
[2023-10-02] MEDS: PANTOPRAZOLE SOD SESQUIHYDRATE 20 MG TAB PO ×2 (08:47→20:57)
[2023-10-02] MEDS: FAMOTIDINE 20 MG TABLET PO ×2 (08:47→20:56)
[2023-10-02] MEDS: AMIODARONE HCL 200 MG TABLET PO (08:47)
[2023-10-02] MEDS: ASPIRIN 81 MG ENTERIC TABLET PO (08:47)
[2023-10-02] MEDS: guaiFENesin 12 HR 600 MG TABCR PO ×2 (08:47→20:56)
[2023-10-02] MEDS: GABAPENTIN 300 MG CAPSULE PO ×3 (08:47→16:52)
[2023-10-02] MEDS: carvediloL 12.5 MG TABLET PO ×2 (10:49→20:59)
[2023-10-02] MEDS: polyethylene glycoL 3350 17 GM POWD.PACK PO (10:58)
--- NOTE | 2023-10-02 11:04 | WPDNEURCNPN ---
Assessment and Plan Assessment and plan (1) Acute cerebrovascular accident (CVA): Code(s): I63.9 - Cerebral infarction, unspecified Status: Acute (2) Paroxysmal atrial flutter: Code(s): I48.92 - Unspecified atrial flutter Status: Acute (3) Dysarthria: Code(s): R47.1 - Dysarthria and anarthria Status: Acute (4) Dysphagia: Code(s): R13.10 - Dysphagia, unspecified Status: Acute (5) Dyslipidemia: Code(s): E78.5 - Hyperlipidemia, unspecified Status: Acute (6) Essential hypertension: Code(s): I10 - Essential (primary) hypertension Status: Chronic (7) Diabetes: Code(s): E11.9 - Type 2 diabetes mellitus without complications Status: Chronic Plan Sarah Alvarado is a 78 year old female with a history of atrial flutter, COPD, SUZANNE, HLD, DM, HTN, CKD wh presented for cough/URI symptoms -- concern for aspiration pneumonia in the setting of dysphagia. MRI brain revealted infarct in the L posterior midbrain and R thalamus. Given bilateral involvement, likely cardioembolic in etiology -- patient does have a history of atrial flutter and is on anticoagulation. There is no strong evidence for switching anticoagulation after acute stroke that occurred while patient was already on NOAC. - Continue Eliquis 5mg BID - Obtain vessel imaging (CTA brain/carotid)-- if there is significant (>50%) stenosis in posterior circulation (that would explain distribution of stroke), may need antiplatelet therapy - Obtain bubble study to complete stroke work-up - LDL is appropriate -- continue HLD meds at same dose Consult date: 10/02/23 Reason for consult: Acute stroke HPI: Sarah Alvarado is a 78 year old female with a history of atrial flutter, COPD, SUZANNE, HLD, DM, HTN, CKD wh presented for cough/URI symptoms. Patient was previously admitted earlier this month for pneumonia and was treated appropriately, although she continued to have cough. Investigations during this admission included swallow study which showed reduced laryngeal elevation and penetration. There was concern that patient may be aspirating due to dysphagia. MRI brain was obtained to evaluate the cause of swallowing difficulties which did showed acute infarct in the left posterior midbrain and right thalamus. No vessel imaging has been done yet. EKG on admission showed sinus rhythm with 1st degree AV block. Her echocardiogram from admission showed normal EF (bubble study not done). LDL from the past month is 71 and A1c is 8.3. For HLD she takes ezetimibe 10mg, Lipitor 80mg and fenofibrate as well. She is on Eliquis 5mg BID for atrial flutter. Patient and daughter report good compliance with the Eliquis. Patient reports that her dysphagia has improved. She continues to have slurring of her speech. Patient does not smoke. Review of Systems Review of Systems: All systems reviewed & are unremarkable except as noted in HPI and below PMFSH Past Medical History Medical History Anemia of chronic disease Bleeding ulcer Body mass index (BMI) greater than 35 (10/20/18) Calculus of gallbladder Cerebrovascular accident 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 Chronic anticoagulation Congestive heart failure History of reduced ejection fraction with improvement in EF to 55% on most recent echo. Diastolic dysfunction also noted. 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 Depression with anxiety Diabetic peripheral neuropathy Dyslipidemia Essential hypertension Fibromyalgia Gastroesophageal reflux disease History of peptic ulcer Hypersomnia Insulin dependent type 2 diabetes mellitus Obstructive sleep apnea on CPAP Osteoarthritis Paroxysmal atrial flutter Stage III chronic kidney disease Baseline c
[2023-10-02 12:20] LABS: Glucose Point of Care 212 mg/dl (65-105)
[2023-10-02] MEDS: INSULIN ASPART (*BKC) 100 UNITS/ML SUB-Q ×2 (12:36→20:55)
--- NOTE | 2023-10-02 13:07 | P.PNNP_ITS ---
Progress Note: A&P Assessment and Plan (1) LIV (acute kidney injury): Code(s): N17.9 - Acute kidney failure, unspecified Status: Acute Assessment and Plan: * Acute kidney injury. * BNP was high. Her exam however looks good and her chest x-ray does not show fluid. * I agree that her higher creatinine may be due to overdiuresis * Urine electrolytes are non pre renal but fractional excretion of urea is lower than 39%. * Off diuretics. * renal ultrasound shows medical renal disease. * Continue holding diuretics for now. * Her creatinine is a little higher today. She is not eating very well in fact she was NPO yesterday all day. * Will give a small amount of IV fluids today to see if we can get the creatinine down a little bit. * (2) Chronic kidney disease, stage IV (severe): Code(s): N18.4 - Chronic kidney disease, stage 4 (severe) Status: Chronic Assessment and Plan: * evidence of CKD that dates back to 2018 with slow progression of disease... * initially had been ~ 1.4 - 1.8mg/dl * then augustine to ~ 1.9 - 2.1mg/dl since early 2021 * more recently, running ~ 2.0 - 2.5mg/dl * due to HTN, DM, vascular disease, SUZANNE, and age-related change based on outpatient evaluation * follows with Dr. Carrillo for management of CKD (3) Cough: Qualifiers: Cough type: subacute Qualified Code(s): R05.2 - Subacute cough Code(s): R05 - Cough Status: Acute Assessment and Plan: * persitent since last hospital discharge last week * This may be from aspiration or due toresidual/ left over from prior pneumonia. * resumed on antibioitc therapy * Speech therapy evaluating and she is on thickened liquids. * The MRI did show multiple small infarcts. She does have underlying paroxysmal atrial fibrillation; she is on Eliquis at home, however she says she she misses some doses. * Neurology is on the case (4) Diastolic heart failure: Code(s): I50.30 - Unspecified diastolic (congestive) heart failure Status: Chronic Assessment and Plan: * appears compensated * Cardiology recommendations noted (5) Essential hypertension: Code(s): I10 - Essential (primary) hypertension Status: Chronic Assessment and Plan: * reasonable control since admission * follow trend of hemodynamics (6) SUZANNE (obstructive sleep apnea): Code(s): G47.33 - Obstructive sleep apnea (adult) (pediatric) Status: Acute Assessment and Plan: * continue use of CPAP (7) Diabetes: Code(s): E11.9 - Type 2 diabetes mellitus without complications Status: Chronic Assessment and Plan: * follow accuchecks * glycemic control per hospitalists Subjective Date/time seen: 10/02/23 13:07 Interval history: Patient feels a little better. She has a thickened liquid soft lunch in front of her. Exam Narrative: General: elderly but WD/WN female in NAD Heart: normal S1 and S2; no rub no gallop Lungs: clear but diminished at bases Abdomen: soft, nontender, nondistended, positive bowel sounds Extremities: no edema Skin: No rash Objective Data Vital Signs Vital Signs: Vital Signs - 24 hr 10/01/23 13:52 10/01/23 15:13 10/01/23 15:21 Temperature 96.8 F L Pulse Rate 58 L 65 62 Respiratory Rate 20 20 20 Blood Pressure 117/56 L
--- NOTE | 2023-10-02 13:07 | PM.PNNEP ---
Progress Note: A&P Assessment and Plan (1) LIV (acute kidney injury): Code(s): N17.9 - Acute kidney failure, unspecified Status: Acute Assessment and Plan: Acute kidney injury. BNP was high. Her exam however looks good and her chest x-ray does not show fluid. I agree that her higher creatinine may be due to overdiuresis Urine electrolytes are non pre renal but fractional excretion of urea is lower than 39%. Off diuretics. renal ultrasound shows medical renal disease. Continue holding diuretics for now. Her creatinine is a little higher today. She is not eating very well in fact she was NPO yesterday all day. Will give a small amount of IV fluids today to see if we can get the creatinine down a little bit. (2) Chronic kidney disease, stage IV (severe): Code(s): N18.4 - Chronic kidney disease, stage 4 (severe) Status: Chronic Assessment and Plan: evidence of CKD that dates back to 2018 with slow progression of disease... initially had been ~ 1.4 - 1.8mg/dl then augustine to ~ 1.9 - 2.1mg/dl since early 2021 more recently, running ~ 2.0 - 2.5mg/dl due to HTN, DM, vascular disease, SUZANNE, and age-related change based on outpatient evaluation follows with Dr. Carrillo for management of CKD (3) Cough: Qualifiers: Cough type: subacute Qualified Code(s): R05.2 - Subacute cough Code(s): R05 - Cough Status: Acute Assessment and Plan: persitent since last hospital discharge last week This may be from aspiration or due toresidual/ left over from prior pneumonia. resumed on antibioitc therapy Speech therapy evaluating and she is on thickened liquids. The MRI did show multiple small infarcts. She does have underlying paroxysmal atrial fibrillation; she is on Eliquis at home, however she says she she misses some doses. Neurology is on the case (4) Diastolic heart failure: Code(s): I50.30 - Unspecified diastolic (congestive) heart failure Status: Chronic Assessment and Plan: appears compensated Cardiology recommendations noted (5) Essential hypertension: Code(s): I10 - Essential (primary) hypertension Status: Chronic Assessment and Plan: reasonable control since admission follow trend of hemodynamics (6) SUZANNE (obstructive sleep apnea): Code(s): G47.33 - Obstructive sleep apnea (adult) (pediatric) Status: Acute Assessment and Plan: continue use of CPAP (7) Diabetes: Code(s): E11.9 - Type 2 diabetes mellitus without complications Status: Chronic Assessment and Plan: follow accuchecks glycemic control per hospitalists Subjective Date/time seen: 10/02/23 13:07 Interval history: Patient feels a little better. She has a thickened liquid soft lunch in front of her. Exam Narrative: General: elderly but WD/WN female in NAD Heart: normal S1 and S2; no rub no gallop Lungs: clear but diminished at bases Abdomen: soft, nontender, nondistended, positive bowel sounds Extremities: no edema Skin: No rash Objective Data Vital Signs Vital Signs: Vital Signs - 24 hr 10/01/23 13:52 10/01/23 15:13 10/01/23 15:21 Temperature 96.8 F L Pulse Rate 58 L 65 62 Respiratory Rate 20 20 20 Blood Pressure 117/56 L Pulse Oximetry 93 Oxygen Delivery 10/01/23 20:12 10/01/23 20:21 10/01/23 21:17 Temperature Pulse Rate 68 65 64 Respiratory Rate 20 20 Blood Pressure Pulse Oximetry Oxygen Delivery 10/01/23 21:16 10/01/23 20:00 10/01/23 20:00 Temperature 96.9 F L Pulse Rate 73 73 Respiratory Rate 14 Blood Pressure 132/60 Pulse Oximetry 93 Oxygen Delivery Room Air 10/02/23 00:00 10/02/23 04:00 10/02/23 05:38 Temperature 96.9 F L Pulse Rate 61 58 L 72 Respiratory Rate 13 Blood Pressure 143/83 H Pulse Oximetry 91 Oxygen Delivery 10/02/23 08:35 10/02/23
--- NOTE | 2023-10-02 14:34 | PM.IMPN ---
Progress Note: A&P Assessment and Plan (1) LIV (acute kidney injury): Code(s): N17.9 - Acute kidney failure, unspecified Status: Acute (2) Chronic kidney disease, stage IV (severe): Code(s): N18.4 - Chronic kidney disease, stage 4 (severe) Status: Chronic (3) Cough: Qualifiers: Cough type: subacute Qualified Code(s): R05.2 - Subacute cough Code(s): R05 - Cough Status: Acute (4) Diastolic heart failure: Code(s): I50.30 - Unspecified diastolic (congestive) heart failure Status: Chronic (5) Essential hypertension: Code(s): I10 - Essential (primary) hypertension Status: Chronic (6) SUZANNE (obstructive sleep apnea): Code(s): G47.33 - Obstructive sleep apnea (adult) (pediatric) Status: Acute (7) Diabetes: Code(s): E11.9 - Type 2 diabetes mellitus without complications Status: Chronic (8) Dehydration: Code(s): E86.0 - Dehydration Status: Acute (9) Elevated brain natriuretic peptide (BNP) level: Code(s): R79.89 - Other specified abnormal findings of blood chemistry Status: Acute (10) Community acquired pneumonia: Code(s): J18.9 - Pneumonia, unspecified organism Status: Acute (11) Stage III chronic kidney disease: Code(s): N18.3 - Chronic kidney disease, stage 3 (moderate) Status: Acute (12) Dyslipidemia: Code(s): E78.5 - Hyperlipidemia, unspecified Status: Acute Plan 1. Cough of unclear origin differential includes chf exacerbation, ongoing pneumonia not fully treated, GERD, copd related cough, ACS is unlikely, side effect of sitagliptin, sputum cx shows oral yoni- c/f aspiration influenza a/b/covid neg. f/u rsv f/u swallow eval. will need repeat MBS- from MBS on 02/2021 Pharyngeal Phase:? Reduced laryngeal elevation and laryngeal penetration Start bid famotidine 20 mg for suspected GERD Start levo/flagyl for another 7 days of treatment to cover CAP or atypical pna that has not been fully treated and aspiration fortunately does not have wheezing so does not appear to have a copd exacerbation 09/30: cough most likely related to chronic aspiration and inability to protect oral secretions. GERD and primary lung disease also in the differential. Unlikely chf now. 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 Neurology consulted. Cough has significantly reduced on cough suppressants, glycopyrrolate and protonix. 2. CHF exacerbation, elevated troponin Continue with current medications Continue gentle IV? diuresis Strict? I&Os Patient has minimally elevated troponins without any chest pain Cardiology consult given for evaluation and treatment recommendations Cardiology evaluated the patient and ordered a [id number] echo for? comparison and evaluation of cardiac structure and function She? is already on Eliquis 5 mg p.o. b.i.d. Patient is on Lasix 40 mg b.i.d. p.o. 09/30: stopping lasix. Cr is rising. can be discharged on a qd lasix, 20 or 40 mg. BNP now 1980 from 6390 Pt has mild diastolic CHF. normal LV systolic dysfunction, ef 65-70%. moderate concentric LV thickening. mild pulm htn 42 mm Hg. she may need a mild dose of lasix, but mainly bp control will be necessary. 10/01: ct to hold lasix. 3. CKD stage IV Creatinine is trending up Possible cardiorenal syndrome Consult sewage reticulation drafting officer as kidney function to continue to worse 09/29: f/u repeat bmp to see if pt still needs lasix 09/30: stopping lasix. consider starting ca carbonate or sevelamer. Defer to nephrology. 10/02: probably due to htn and dm. f/u 500 ml/5 hrs IVF from nep
--- NOTE | 2023-10-02 15:34 | PCPTNOTE ---
Attempted to see patient at 1348, but she is with OT, Attempted to see her at 1525 and she is getting an MRI. Physical therapy will attempt re-evaluation tomorrow.
[2023-10-02] MEDS: SODIUM CHLORIDE 0.9% IV 1,000 ML 100 ML IV CONT (16:52)
[2023-10-02 16:58] LABS: Glucose Point of Care 171 mg/dl (65-105)
[2023-10-02] MEDS: DOXYCYCLINE HYCLATE 100 MG TABLET PO ×2 (17:16→21:03)
[2023-10-02] MEDS: BENZOCAINE/MENTHOL (*BKC) 18 EA LOZENGE 1 LOZENGE PO (17:16)
[2023-10-02 20:13] LABS: Glucose Point of Care 259 mg/dl (65-105)
[2023-10-02] MEDS: INSULIN GLARGINE (*BKC) 100 UNITS/ML SUB-Q (20:54)
[2023-10-02] MEDS: DOCUSATE SODIUM 100 MG CAPSULE PO (20:56)
[2023-10-02] MEDS: ATORVASTATIN 40 MG TABLET 80 MG PO (20:56)
[2023-10-02] MEDS: MELATONIN 5 MG TABLET PO (20:59)
[2023-10-03] VITALS (17 sets, daily range): BP systolic 111–160; BP diastolic 44–79; PULSE 58–78; RESP 16–20; TEMP 35.9–36.7; O2SAT 93–96
--- NOTE | 2023-10-03 | ECHO_ITS ---
Patient Info Name: Sarah Alvarado Age: 78 years : 1945 Gender: Female Ht: 66 in Wt: 230 lbs BSA: 2.25 m2 HR: 75 bpm BP: 145 / 68 mmHg Heart Rhythm: Sinus Rhythm Technical Quality: Fair Exam Date: 10/03/2023 9:18 AM Exam Location: Echo Lab Exam Room: [facility] Patient Status: Inpatient Admit Date: 09/28/2023 Staff Ordering Physician: Da Ledesma MD Mix Crusher Operator: Annette Post RDCS Attending Provider: Contreras Kruse MD Exam Type: CA echo limited w bubble study Study Info Indications - STROKE R/O CSE /PFO Limited two-dimensional transthoracic echocardiogram is performed with agitated saline. Contrast/Agitated Saline Contrast/Ag. Saline: Agitated Saline Amount: 20.00 ml Existing IV Access: Yes IV Access Condition: patent with no signs of infiltration Summary 1. Left ventricular systolic function is normal, estimated at 65-70%. 2. Evidence for vlszq-zf-oshf shunt at the interatrial level with injection of agitated saline with Valsalva. Possible very faint iahmu-gp-dfmq shunt without Valsalva although technically difficult Clinical correlation advised. Left Ventricle Left ventricular systolic function is normal, estimated at 65-70%. Atrial Septum Evidence for xhwjv-jv-nofj shunt at the interatrial level with injection of agitated saline with Valsalva. Possible very faint uifkd-po-vbuq shunt without Valsalva although technically difficult Clinical correlation advised. Mitral Valve The mitral valve has thickened leaflets. The mitral valve annulus is severely calcified. Report Signatures
[2023-10-03] MEDS: IPRATROPIUM BR 0.02% INH SOLN 0.5 MG/2.5 ML VIAL INHALATION ×4 (01:10→21:05)
[2023-10-03] MEDS: guaiFENesin/DEXTROMETHORPHAN 10 ML UDC 20 ML PO ×3 (05:12→17:15)
[2023-10-03] MEDS: ACETAMINOPHEN 500 MG TABLET PO ×3 (05:13→17:15)
[2023-10-03 06:53] LABS: Basophils Percent Auto 0.4 % (0.2-1.2); Eosinophils Absolute Auto 0.3 K/mm3 (0-0.3); Eosinophils Percent Auto 6.6 % (0-4.4); Hematocrit 29.6 % (37.0-47.0); Hemoglobin 9.1 g/dL (12.0-15.0); Immature Granulocyte Absolute 0.01 K/mm3 (0.00-0.031); Immature Granulocyte Percent A 0.2 % (0-0.5); Lymphocytes Absolute Auto 0.71 K/mm3 (0.9-3.2); Lymphocytes Percent Auto 14.2 % (18.3-44.2); Mean Corpuscular HGB Conc 30.7 g/dl (32-36); Mean Corpuscular Hemoglobin 32.5 pg (26-34); Mean Corpuscular Volume 105.7 fl (80-100); Mean Platelet Volume 9.8 fl (7.4-10.4); Monocytes Absolute Auto 0.5 K/mm3 (0.1-0.6); Monocytes Percent Auto 10.2 % (2.6-8.5); Neutrophils Absolute Auto 3.4 K/mm3 (1.3-6.7); Neutrophils Percent Auto 68.4 % (45.5-73.1); Platelet Count Result 229 k/mm3 (150-375); Red Cell Distribution Width 15.5 % (11.5-14.5)
[2023-10-03 07:06] LABS: Albumin Level 2.9 g/dL (3.5-5.1); Anion Gap 5 mmol/L (8-16); Blood Urea Nitrogen 49 mg/dL (7-17); Calcium 8.2 mg/dL (8.4-10.2); Carbon Dioxide 25 mmol/L (22-30); Chloride 106 mmol/L (98-107); Estimated CRCL calculation 17 ml/min; Estimated Glomerular Filt Rate 16; Glucose 171 mg/dL (65-110); Phosphorus 4.6 mg/dL (2.5-4.5); Potassium 4.4 mmol/L (3.4-5.0); Sodium 136 mmol/L (137-145)
[2023-10-03 07:21] LABS: Glucose Point of Care 152 mg/dl (65-105)
[2023-10-03 08:02] LABS: Hypochromasia 1+ (NORMAL); Platelet Estimate Adequate (Adequate)
[2023-10-03 08:03] LABS: Anisocytosis 1+ (NORMAL); Microcytosis 1+ (NORMAL); Schistocytes None Seen (NORMAL)
[2023-10-03] MEDS: DOXYCYCLINE HYCLATE 100 MG TABLET PO ×2 (08:15→21:05)
[2023-10-03] MEDS: ASPIRIN 81 MG ENTERIC TABLET PO (08:15)
[2023-10-03] MEDS: HYDROcodone/acetaminophen (*CRX) 10-325 MG TABLET 1 TAB PO ×2 (08:15→21:04)
[2023-10-03] MEDS: AMIODARONE HCL 200 MG TABLET PO (08:15)
[2023-10-03] MEDS: guaiFENesin 12 HR 600 MG TABCR PO ×2 (08:15→21:05)
[2023-10-03] MEDS: PANTOPRAZOLE SOD SESQUIHYDRATE 20 MG TAB PO ×2 (08:15→21:05)
[2023-10-03] MEDS: FAMOTIDINE 20 MG TABLET PO ×2 (08:15→21:05)
[2023-10-03] MEDS: BENZONATATE 100 MG CAPSULE 200 MG PO ×3 (08:15→17:15)
[2023-10-03] MEDS: GABAPENTIN 300 MG CAPSULE PO ×3 (08:15→17:15)
[2023-10-03] MEDS: TAMSULOSIN HCL 0.4 MG CAPSULE PO (08:16)
[2023-10-03] MEDS: EZETIMIBE 10 MG TABLET PO (08:16)
[2023-10-03] MEDS: APIXABAN 5 MG TABLET PO ×2 (08:16→21:05)
--- NOTE | 2023-10-03 09:15 | PCPTNOTE ---
The patient treatment was not able to be completed at this time due to patient receiving test at bedside. Will plan to continue treatment per plan of care.
--- NOTE | 2023-10-03 11:00 | PM.PNNEP ---
Progress Note: A&P Assessment and Plan (1) LIV (acute kidney injury): Code(s): N17.9 - Acute kidney failure, unspecified Status: Acute Assessment and Plan: BNP was elevated but exam looked good and her chest x-ray did not show fluid suspicion that higher creatinine may be due to overdiuresis evaluation to date: urine electrolytes are non pre renal but fractional excretion of urea is lower than 39% renal ultrasound shows medical renal disease creatinine better following IVF trial holding diuretics follow trend of repeat labs and UOP (2) Chronic kidney disease, stage IV (severe): Code(s): N18.4 - Chronic kidney disease, stage 4 (severe) Status: Chronic Assessment and Plan: evidence of CKD that dates back to 2018 with slow progression of disease... initially had been ~ 1.4 - 1.8mg/dl then augustine to ~ 1.9 - 2.1mg/dl since early 2021 more recently, running ~ 2.0 - 2.5mg/dl due to HTN, DM, vascular disease, SUZANNE, and age-related change based on outpatient evaluation follows with Dr. Carrillo for management of CKD (3) Cough: Qualifiers: Cough type: subacute Qualified Code(s): R05.2 - Subacute cough Code(s): R05 - Cough Status: Acute Assessment and Plan: persitent since last hospital discharge last week this may be from aspiration or due to residual/ left over from prior pneumonia resumed on antibioitc therapy Speech therapy evaluating and she is on thickened liquids. Brain MRI did show multiple small infarcts she does have underlying paroxysmal atrial fibrillation; she is on Eliquis at home, however she says she she misses some doses limited Echo with possible shunt Neurology is on the case (4) Diastolic heart failure: Code(s): I50.30 - Unspecified diastolic (congestive) heart failure Status: Chronic Assessment and Plan: appears compensated Cardiology recommendations noted (5) Essential hypertension: Code(s): I10 - Essential (primary) hypertension Status: Chronic Assessment and Plan: reasonable control since admission follow trend of hemodynamics (6) SUZANNE (obstructive sleep apnea): Code(s): G47.33 - Obstructive sleep apnea (adult) (pediatric) Status: Acute Assessment and Plan: continue use of CPAP (7) Diabetes: Code(s): E11.9 - Type 2 diabetes mellitus without complications Status: Chronic Assessment and Plan: follow accuchecks glycemic control per hospitalists Will continue to follow. Subjective Date/time seen: 10/03/23 11:00 Interval history: Follow-up on acute kidney injury/acute renal failure on chronic kidney disease. Renal function a bit better following trial of IVFs yesterday; still with on/off cough as well as some difficulty ambulating with PT/OT support; no other acute issues/events voiced at the time of my visit. Exam Narrative: General: elderly but WD/WN female in NAD Heart: normal S1 and S2; no rub no gallop Lungs: clear but diminished at bases Abdomen: soft, nontender, nondistended, positive bowel sounds Extremities: no edema Skin: no nodules Objective Data Vital Signs Vital Signs: Vital Signs Temp Pulse Resp BP Pulse Ox O2 Del Method 10/03/23 12:15 71 18 10/03/23 08:00 72 18 93 Room Air 10/03/23 08:00 68 10/03/23 07:55 72 18 10/03/23 07:45 71 18 10/03/23 07:45 71 18 93 Room Air 10/03/23 04:00 71 10/03/23 05:01 97.5 F L 75 18 145/68 H 96 10/03/23 00:00 62 10/02/23 20:00 77 10/03/23 01:37 68 10/03/23 01:05 66 18 10/02/23 20:00 100 Room Air 10/02/23 21:07 97.1 F L 65 18 151/68 H 100 10/02/23 20:26 63 10/02/23 20:17 62 18 10/02/23 16:00 61 10/02/23 14:15 63 18 10/02/23 14:11 60 18 Intake/Output Intake/Output: Intake & Output 09/30
--- NOTE | 2023-10-03 11:00 | P.PNNP_ITS ---
Progress Note: A&P Assessment and Plan (1) LIV (acute kidney injury): Code(s): N17.9 - Acute kidney failure, unspecified Status: Acute Assessment and Plan: * BNP was elevated but exam looked good and her chest x-ray did not show fluid * suspicion that higher creatinine may be due to overdiuresis * evaluation to date: * urine electrolytes are non pre renal but fractional excretion of urea is lower than 39% * renal ultrasound shows medical renal disease * * creatinine better following IVF trial * holding diuretics * follow trend of repeat labs and UOP (2) Chronic kidney disease, stage IV (severe): Code(s): N18.4 - Chronic kidney disease, stage 4 (severe) Status: Chronic Assessment and Plan: * evidence of CKD that dates back to 2018 with slow progression of disease... * initially had been ~ 1.4 - 1.8mg/dl * then augustine to ~ 1.9 - 2.1mg/dl since early 2021 * more recently, running ~ 2.0 - 2.5mg/dl * due to HTN, DM, vascular disease, SUZANNE, and age-related change based on outpatient evaluation * follows with Dr. Carrillo for management of CKD (3) Cough: Qualifiers: Cough type: subacute Qualified Code(s): R05.2 - Subacute cough Code(s): R05 - Cough Status: Acute Assessment and Plan: * persitent since last hospital discharge last week * this may be from aspiration or due to residual/ left over from prior pneumonia * resumed on antibioitc therapy * Speech therapy evaluating and she is on thickened liquids. * Brain MRI did show multiple small infarcts * she does have underlying paroxysmal atrial fibrillation; she is on Eliquis at home, however she says she she misses some doses * limited Echo with possible shunt * Neurology is on the case (4) Diastolic heart failure: Code(s): I50.30 - Unspecified diastolic (congestive) heart failure Status: Chronic Assessment and Plan: * appears compensated * Cardiology recommendations noted (5) Essential hypertension: Code(s): I10 - Essential (primary) hypertension Status: Chronic Assessment and Plan: * reasonable control since admission * follow trend of hemodynamics (6) SUZANNE (obstructive sleep apnea): Code(s): G47.33 - Obstructive sleep apnea (adult) (pediatric) Status: Acute Assessment and Plan: * continue use of CPAP (7) Diabetes: Code(s): E11.9 - Type 2 diabetes mellitus without complications Status: Chronic Assessment and Plan: * follow accuchecks * glycemic control per hospitalists Will continue to follow. Subjective Date/time seen: 10/03/23 11:00 Interval history: Follow-up on acute kidney injury/acute renal failure on chronic kidney disease. Renal function a bit better following trial of IVFs yesterday; still with on/off cough as well as some difficulty ambulating with PT/OT support; no other acute issues/events voiced at the time of my visit. Exam Narrative: General: elderly but WD/WN female in NAD Heart: normal S1 and S2; no rub no gallop Lungs: clear but diminished at bases Abdomen: soft, nontender, nondistended, positive bowel sounds Extremities: no edema Skin: no nodules Objective Data Vital Signs Vital Signs: Vital Signs Temp Pulse Resp BP Pulse Ox O2 Del Method 10/03/23 12:15 71 18
[2023-10-03 11:12] LABS: Glucose Point of Care 262 mg/dl (65-105)
[2023-10-03] MEDS: ONDANSETRON HCL ODT 4 MG TABLET PO (11:23)
[2023-10-03] MEDS: carvediloL 12.5 MG TABLET PO ×2 (11:24→21:05)
[2023-10-03] MEDS: INSULIN ASPART (*BKC) 100 UNITS/ML SUB-Q ×2 (13:55→21:01)
--- NOTE | 2023-10-03 13:55 | PCSTNOTE ---
The patient treatment was not able to be completed on 10/03 due to not available on two attempts by therapist to complete treatment session. Will plan to continue treatment per plan of care.
--- NOTE | 2023-10-03 14:50 | PM.IMPN ---
Progress Note: A&P Assessment and Plan (1) LIV (acute kidney injury): Code(s): N17.9 - Acute kidney failure, unspecified Status: Acute (2) Chronic kidney disease, stage IV (severe): Code(s): N18.4 - Chronic kidney disease, stage 4 (severe) Status: Chronic (3) Cough: Qualifiers: Cough type: subacute Qualified Code(s): R05.2 - Subacute cough Code(s): R05 - Cough Status: Acute (4) Diastolic heart failure: Code(s): I50.30 - Unspecified diastolic (congestive) heart failure Status: Chronic (5) Essential hypertension: Code(s): I10 - Essential (primary) hypertension Status: Chronic (6) SUZANNE (obstructive sleep apnea): Code(s): G47.33 - Obstructive sleep apnea (adult) (pediatric) Status: Acute (7) Diabetes: Code(s): E11.9 - Type 2 diabetes mellitus without complications Status: Chronic (8) Dehydration: Code(s): E86.0 - Dehydration Status: Acute (9) Elevated brain natriuretic peptide (BNP) level: Code(s): R79.89 - Other specified abnormal findings of blood chemistry Status: Acute (10) Community acquired pneumonia: Code(s): J18.9 - Pneumonia, unspecified organism Status: Acute (11) Stage III chronic kidney disease: Code(s): N18.3 - Chronic kidney disease, stage 3 (moderate) Status: Acute (12) Dyslipidemia: Code(s): E78.5 - Hyperlipidemia, unspecified Status: Acute Plan 1. Cough of unclear origin differential includes chf exacerbation, ongoing pneumonia not fully treated, GERD, copd related cough, ACS is unlikely, side effect of sitagliptin, sputum cx shows oral yoni- c/f aspiration influenza a/b/covid neg. f/u rsv f/u swallow eval. will need repeat MBS- from MBS on 02/2021 Pharyngeal Phase:? Reduced laryngeal elevation and laryngeal penetration Start bid famotidine 20 mg for suspected GERD Start levo/flagyl for another 7 days of treatment to cover CAP or atypical pna that has not been fully treated and aspiration fortunately does not have wheezing so does not appear to have a copd exacerbation 09/30: cough most likely related to chronic aspiration and inability to protect oral secretions. GERD and primary lung disease also in the differential. Unlikely chf now. 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 Neurology consulted. Cough has significantly reduced on cough suppressants, glycopyrrolate and protonix. 10/03: dc pt home on cough suppressants 2. CHF exacerbation, elevated troponin Continue with current medications Continue gentle IV? diuresis Strict? I&Os Patient has minimally elevated troponins without any chest pain Cardiology consult given for evaluation and treatment recommendations Cardiology evaluated the patient and ordered a [id number] echo for? comparison and evaluation of cardiac structure and function She? is already on Eliquis 5 mg p.o. b.i.d. Patient is on Lasix 40 mg b.i.d. p.o. 09/30: stopping lasix. Cr is rising. can be discharged on a qd lasix, 20 or 40 mg. BNP now 1980 from 6390 Pt has mild diastolic CHF. normal LV systolic dysfunction, ef 65-70%. moderate concentric LV thickening. mild pulm htn 42 mm Hg. she may need a mild dose of lasix, but mainly bp control will be necessary. 10/01: ct to hold lasix. 10/03: dc pt off lasix when stable 3. CKD stage IV Creatinine is trending up Possible cardiorenal syndrome Consult warehouse consultant as kidney function to continue to worse 09/29: f/u repeat bmp to see if pt still needs lasix 09/30: stopping lasix. consider starting ca carbonate or sevelamer. Defer to n
[2023-10-03 16:51] LABS: Glucose Point of Care 179 mg/dl (65-105)
[2023-10-03] MEDS: amLODIPine BESYLATE 5 MG TABLET PO (17:15)
[2023-10-03] MEDS: INSULIN GLARGINE (*BKC) 100 UNITS/ML 7 UNITS SUB-Q (21:03)
[2023-10-03] MEDS: DOCUSATE SODIUM 100 MG CAPSULE PO (21:05)
[2023-10-03] MEDS: ATORVASTATIN 40 MG TABLET 80 MG PO (21:05)
[2023-10-03] MEDS: MELATONIN 5 MG TABLET PO (21:06)
[2023-10-03 21:14] LABS: Glucose Point of Care 264 mg/dl (65-105)
[2023-10-04] VITALS (19 sets, daily range): BP systolic 113–145; BP diastolic 51–65; PULSE 64–76; RESP 16–20; TEMP 36.1–37.2; O2SAT 91–98
[2023-10-04] MEDS: IPRATROPIUM BR 0.02% INH SOLN 0.5 MG/2.5 ML VIAL INHALATION ×4 (03:25→20:55)
[2023-10-04] MEDS: guaiFENesin/DEXTROMETHORPHAN 10 ML UDC 20 ML PO ×4 (05:49→23:15)
[2023-10-04] MEDS: ACETAMINOPHEN 500 MG TABLET PO ×4 (05:50→23:15)
[2023-10-04 06:45] LABS: Basophils Percent Auto 0.7 % (0.2-1.2); Eosinophils Absolute Auto 0.3 K/mm3 (0-0.3); Eosinophils Percent Auto 6.3 % (0-4.4); Hematocrit 31.9 % (37.0-47.0); Hemoglobin 9.3 g/dL (12.0-15.0); Immature Granulocyte Absolute 0.02 K/mm3 (0.00-0.031); Immature Granulocyte Percent A 0.5 % (0-0.5); Lymphocytes Absolute Auto 0.94 K/mm3 (0.9-3.2); Lymphocytes Percent Auto 21.8 % (18.3-44.2); Mean Corpuscular HGB Conc 29.2 g/dl (32-36); Mean Corpuscular Hemoglobin 32.4 pg (26-34); Mean Corpuscular Volume 111.1 fl (80-100); Mean Platelet Volume 9.8 fl (7.4-10.4); Monocytes Absolute Auto 0.6 K/mm3 (0.1-0.6); Neutrophils Absolute Auto 2.5 K/mm3 (1.3-6.7); Neutrophils Percent Auto 57.7 % (45.5-73.1); Platelet Count Result 232 k/mm3 (150-375); Red Blood Count 2.87 M/mm3 (4.2-5.4); Red Cell Distribution Width 15.5 % (11.5-14.5); White Blood Count 4.3 K/mm3 (4.5-10.0)
[2023-10-04 07:16] LABS: Platelet Estimate Adequate (Adequate)
[2023-10-04 07:17] LABS: Burr Cells 1+ (NORMAL); Poikilocytosis 1+ (NORMAL); Schistocytes None Seen (NORMAL)
[2023-10-04 07:24] LABS: Albumin Level 2.9 g/dL (3.5-5.1); Anion Gap 7 mmol/L (8-16); Blood Urea Nitrogen 52 mg/dL (7-17); Calcium 8.2 mg/dL (8.4-10.2); Carbon Dioxide 21 mmol/L (22-30); Chloride 107 mmol/L (98-107); Estimated CRCL calculation 19 ml/min; Estimated Glomerular Filt Rate 17; Glucose 165 mg/dL (65-110); Phosphorus 4.5 mg/dL (2.5-4.5); Potassium 4.6 mmol/L (3.4-5.0); Sodium 135 mmol/L (137-145)
[2023-10-04 07:37] LABS: Glucose Point of Care 171 mg/dl (65-105)
--- NOTE | 2023-10-04 07:40 | PM.PNCARD ---
Progress Note: A&P Assessment and Plan (1) Elevated troponin: Code(s): R79.89 - Other specified abnormal findings of blood chemistry Status: Acute Assessment and Plan: Mildly elevated and peaked at .06. Probably related to URI with CKD. 09/27/23 Echo: EF 65-70%, mod LVH, grade I diastolic dysfunction (E/e' 8), mild LAE, trace AI, mod MAC, mild TR, RVSP 42 mmHg. No further cardiac workup is needed for this. (2) Elevated brain natriuretic peptide (BNP) level: Code(s): R79.89 - Other specified abnormal findings of blood chemistry Status: Acute Assessment and Plan: Elevated at 6,390, probably due to chronic diastolic dysfunction with CKD. Does not appear to be volume overloaded. (3) Diastolic dysfunction: Code(s): I51.89 - Other ill-defined heart diseases Status: Acute Assessment and Plan: Appears euvolemic. Was on Lasix 40 mg daily. (4) Essential hypertension: Code(s): I10 - Essential (primary) hypertension Status: Chronic Assessment and Plan: Stable. (5) Dyslipidemia: Code(s): E78.5 - Hyperlipidemia, unspecified Status: Acute Assessment and Plan: Stable. (6) PVT (paroxysmal ventricular tachycardia): Code(s): I47.2 - Ventricular tachycardia Status: Acute Assessment and Plan: On Amiodarone. (7) Paroxysmal atrial flutter: Code(s): I48.92 - Unspecified atrial flutter Status: Acute Assessment and Plan: Stable. On Amiodarone and Eliquis. (8) Cerebrovascular accident: Code(s): I63.9 - Cerebral infarction, unspecified Status: Acute Assessment and Plan: 2 new tiny bilateral foci. Differential includes new lacunar infarcts, failed DOAC for PAF (though in sinus rhythm while hospitalized) or failed DOAC for paradoxical emboli via a small PFO. 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 A couple of old tiny lacunar infarcts. 10/03/23 Limited echo: TDS. Evidence of right to left shunt s/o PFO. Discuss with patient the above and that she is already on Eliquis and aspirin for medical therapy. As an outpatient we can refer her to a center for consideration to close PFO if she is interested. No further cardiac workup is needed. Will sign off. Please call with any questions. Subjective Date/time seen: 10/04/23 07:40 Interval history: Reports chronic cough daily. No chest pain or sob. Exam Const: General: cooperative, healthy appearing and comfortable Orientation/consciousness: oriented to person, oriented to place and oriented to time Resp: Auscultation: clear to auscultation bilaterally, no crackles, no rales, no rhonchi and no wheezes Cardio: Rate: regular rate Rhythm: regular rhythm Heart sounds: no murmurs Neuro: General: oriented to person, oriented to place and oriented to time Extrem: Right lower extremity: no edema Left lower extremity: no edema Objective Data Vital Signs Vital Signs: Vital Signs - 24 hr 10/03/23 07:45 10/03/23 07:45 10/03/23 07:55 Temperature Pulse Rate 71 71 72 Respiratory Rate 18 18 18 Blood Pressure Pulse Oximetry 93 Oxygen Delivery Room Air 10/03/23 08:00 10/03/23 08:00 10/03/23 13:15 Temperature Pulse Rate 68 72 71 Respiratory Rate 18 18 Blood Pressure Pulse Oximetry 93 Oxygen Delivery Room Air 10/03/23 13:25 10/03/23 14:00 10/03/23 16:00 Temperature 96.7 F L Pulse Rate 70 73 66 Respiratory Rate 18 16 Blood Pressure 111/44 L Pulse Oximetry 94 Oxygen Delivery 10/03/23 12:00 10/03/23 21:09 10/03/23 22:00 Temperature 98.1 F Pulse Rate 58 L 75 77 Respiratory Rate 20 20 Blood Pressure 160/79 H Pulse Oximetry 95 Oxygen Delivery 10/03/23 21:20 10/03/23 20:00 10/04/23 03:25 Temperature Pulse Rate 78 76 Respiratory Rate 20 20 Blood Pressure Pulse Oximetry 95 Oxygen Delivery Room Air 10/03/23 20:00 10/04/23 00:00 09/08
[2023-10-04] MEDS: GABAPENTIN 300 MG CAPSULE PO ×3 (09:34→16:37)
[2023-10-04] MEDS: amLODIPine BESYLATE 5 MG TABLET PO (09:34)
[2023-10-04] MEDS: guaiFENesin 12 HR 600 MG TABCR PO ×2 (09:34→21:45)
[2023-10-04] MEDS: BENZONATATE 100 MG CAPSULE 200 MG PO ×3 (09:34→16:36)
[2023-10-04] MEDS: EZETIMIBE 10 MG TABLET PO (09:34)
[2023-10-04] MEDS: APIXABAN 5 MG TABLET PO ×2 (09:34→21:45)
[2023-10-04] MEDS: TAMSULOSIN HCL 0.4 MG CAPSULE PO (09:34)
[2023-10-04] MEDS: ASPIRIN 81 MG ENTERIC TABLET PO (09:35)
[2023-10-04] MEDS: AMIODARONE HCL 200 MG TABLET PO (09:35)
[2023-10-04] MEDS: PANTOPRAZOLE SOD SESQUIHYDRATE 20 MG TAB PO ×2 (09:35→21:45)
[2023-10-04] MEDS: FAMOTIDINE 20 MG TABLET PO ×2 (09:35→21:45)
[2023-10-04] MEDS: carvediloL 12.5 MG TABLET PO ×2 (09:35→21:45)
[2023-10-04] MEDS: BENZOCAINE/MENTHOL (*BKC) 18 EA LOZENGE 1 LOZENGE PO (09:36)
[2023-10-04] MEDS: DOXYCYCLINE HYCLATE 100 MG TABLET PO ×2 (09:37→21:45)
[2023-10-04] MEDS: polyethylene glycoL 3350 17 GM POWD.PACK PO (09:38)
--- NOTE | 2023-10-04 10:26 | PM.PNNEP ---
Progress Note: A&P Assessment and Plan (1) LIV (acute kidney injury): Code(s): N17.9 - Acute kidney failure, unspecified Status: Acute Assessment and Plan: slow improvement BNP was elevated but exam looked good and her chest x-ray did not show fluid suspicion that higher creatinine may be due to overdiuresis evaluation to date: urine electrolytes are non pre renal but fractional excretion of urea is lower than 39% renal ultrasound shows medical renal disease creatinine better following IVF trial holding diuretics follow trend of repeat labs and UOP (2) Chronic kidney disease, stage IV (severe): Code(s): N18.4 - Chronic kidney disease, stage 4 (severe) Status: Chronic Assessment and Plan: evidence of CKD that dates back to 2018 with slow progression of disease... initially had been ~ 1.4 - 1.8mg/dl then augustine to ~ 1.9 - 2.1mg/dl since early 2021 more recently, running ~ 2.0 - 2.5mg/dl due to HTN, DM, vascular disease, SUZANNE, and age-related change based on outpatient evaluation follows with Dr. Carrillo for management of CKD (3) Cough: Qualifiers: Cough type: subacute Qualified Code(s): R05.2 - Subacute cough Code(s): R05 - Cough Status: Acute Assessment and Plan: persitent since last hospital discharge last week this may be from aspiration or due to residual/ left over from prior pneumonia resumed on antibioitc therapy Speech therapy evaluating and she is on thickened liquids. Brain MRI did show multiple small infarcts she does have underlying paroxysmal atrial fibrillation; she is on Eliquis at home, however she says she she misses some doses limited Echo with possible shunt Neurology is on the case (4) Diastolic heart failure: Code(s): I50.30 - Unspecified diastolic (congestive) heart failure Status: Chronic Assessment and Plan: appears compensated Cardiology recommendations noted (5) Essential hypertension: Code(s): I10 - Essential (primary) hypertension Status: Chronic Assessment and Plan: reasonable control since admission follow trend of hemodynamics (6) SUZANNE (obstructive sleep apnea): Code(s): G47.33 - Obstructive sleep apnea (adult) (pediatric) Status: Acute Assessment and Plan: continue use of CPAP (7) Diabetes: Code(s): E11.9 - Type 2 diabetes mellitus without complications Status: Chronic Assessment and Plan: follow accuchecks glycemic control per hospitalists Will continue to follow. Subjective Date/time seen: 10/04/23 10:26 Interval history: Follow-up on acute kidney injury/acute renal failure on chronic kidney disease. Renal function/creatinine a tad better by AM labs; still with cough but seems to be doing signifcantly better at this time; no other acute issues/complaints voiced; feels reasonably well at the time of my visit. Exam Narrative: General: elderly but WD/WN female in NAD Heart: normal S1 and S2; no rub no gallop Lungs: clear but diminished at bases Abdomen: soft, nontender, nondistended, positive bowel sounds Extremities: no edema Skin: warm and dry Objective Data Vital Signs Vital Signs: Vital Signs Temp Pulse Resp BP Pulse Ox O2 Del Method 10/04/23 09:35 68 10/04/23 09:35 68 10/04/23 09:03 67 20 10/04/23 08:55 71 20 92 Room Air 10/04/23 08:52 73 20 10/04/23 06:00 96.9 F L 71 20 124/65 95 10/04/23 04:00 65 10/04/23 00:00 70 10/03/23 20:00 67 10/04/23 03:25 76 20 10/03/23 20:00 95 Room Air 10/03/23 21:20 78 20 10/03/23 22:00 98.1 F 77 20 160/79 H 95 10/03/23 21:09 75 20 10/03/23 16:00 66 10/03/23 14:00 96.7 F L 73 16 111/44 L 94 10/03/23 13:25 70 18 10/03/23 13:15 71 18 Intake/Output Intake/Output: Intake & Output 10/01
--- NOTE | 2023-10-04 10:26 | P.PNNP_ITS ---
Progress Note: A&P Assessment and Plan (1) LIV (acute kidney injury): Code(s): N17.9 - Acute kidney failure, unspecified Status: Acute Assessment and Plan: * slow improvement * BNP was elevated but exam looked good and her chest x-ray did not show fluid * suspicion that higher creatinine may be due to overdiuresis * evaluation to date: * urine electrolytes are non pre renal but fractional excretion of urea is l ower than 39% * renal ultrasound shows medical renal disease * creatinine better following IVF trial * holding diuretics * follow trend of repeat labs and UOP (2) Chronic kidney disease, stage IV (severe): Code(s): N18.4 - Chronic kidney disease, stage 4 (severe) Status: Chronic Assessment and Plan: * evidence of CKD that dates back to 2018 with slow progression of disease... * initially had been ~ 1.4 - 1.8mg/dl * then augustine to ~ 1.9 - 2.1mg/dl since early 2021 * more recently, running ~ 2.0 - 2.5mg/dl * due to HTN, DM, vascular disease, SUZANNE, and age-related change based on outpatient evaluation * follows with Dr. Carrillo for management of CKD (3) Cough: Qualifiers: Cough type: subacute Qualified Code(s): R05.2 - Subacute cough Code(s): R05 - Cough Status: Acute Assessment and Plan: * persitent since last hospital discharge last week * this may be from aspiration or due to residual/ left over from prior pneumonia * resumed on antibioitc therapy * Speech therapy evaluating and she is on thickened liquids. * Brain MRI did show multiple small infarcts * she does have underlying paroxysmal atrial fibrillation; she is on Eliquis at home, however she says she she misses some doses * limited Echo with possible shunt * Neurology is on the case (4) Diastolic heart failure: Code(s): I50.30 - Unspecified diastolic (congestive) heart failure Status: Chronic Assessment and Plan: * appears compensated * Cardiology recommendations noted (5) Essential hypertension: Code(s): I10 - Essential (primary) hypertension Status: Chronic Assessment and Plan: * reasonable control since admission * follow trend of hemodynamics (6) SUZANNE (obstructive sleep apnea): Code(s): G47.33 - Obstructive sleep apnea (adult) (pediatric) Status: Acute Assessment and Plan: * continue use of CPAP (7) Diabetes: Code(s): E11.9 - Type 2 diabetes mellitus without complications Status: Chronic Assessment and Plan: * follow accuchecks * glycemic control per hospitalists Will continue to follow. Subjective Date/time seen: 10/04/23 10:26 Interval history: Follow-up on acute kidney injury/acute renal failure on chronic kidney disease. Renal function/creatinine a tad better by AM labs; still with cough but seems to be doing signifcantly better at this time; no other acute issues/complaints voiced; feels reasonably well at the time of my visit. Exam Narrative: General: elderly but WD/WN female in NAD Heart: normal S1 and S2; no rub no gallop Lungs: clear but diminished at bases Abdomen: soft, nontender, nondistended, positive bowel sounds Extremities: no edema Skin: warm and dry Objective Data Vital Signs Vital Signs: Vital Signs Temp Pulse Resp BP Pulse Ox O2 Del Method 10/04/23 09:35 6
[2023-10-04 11:17] LABS: Glucose Point of Care 245 mg/dl (65-105)
[2023-10-04] MEDS: INSULIN ASPART (*BKC) 100 UNITS/ML SUB-Q ×2 (11:34→21:43)
--- NOTE | 2023-10-04 12:15 | PCOTNOTE ---
Patient declined to participate at this time. Patient verbalized she did PT this A.M. and requested therapist come back this afternoon, she needed to rest for a bit. Will try back later this date.
[2023-10-04] MEDS: HYDROcodone/acetaminophen (*CRX) 10-325 MG TABLET 1 TAB PO (15:23)
--- NOTE | 2023-10-04 15:27 | PCOTNOTE ---
Attempted Patient this afternoon, Patient declined, stated she is feeling horrible right now, I'm so weak and fatigued . Patient has a family member present and having questions with the RN at this time.
[2023-10-04 16:23] LABS: Glucose Point of Care 167 mg/dl (65-105)
--- NOTE | 2023-10-04 17:54 | PM.IMPN ---
Progress Note: A&P Assessment and Plan (1) Dysphagia: Code(s): R13.10 - Dysphagia, unspecified Status: Acute (2) Pneumonia: Code(s): J18.9 - Pneumonia, unspecified organism Status: Acute Plan cough appears to be from aspiration along with pneumonia. pneumonia was treated. continue therapy with speech therapy. GERD and other possibilities within the ddx. pepcid started. she is stable to go home, but should follow up with pulmonology for possible high res CT if the cough does not subside. home tomorrow with an outpatient treatment plan in place. check full respiratory panel as well today. Subjective Date/time seen: 10/04/23 17:54 Interval history: NAOE. the patient complains of persistent cough and one time episode productive of green sputum Review of Systems Review of Systems: All systems reviewed & are unremarkable except as noted in HPI and below Exam Const: General: comfortable and no acute distress Other: obese Resp: Effort & Inspection: normal respiratory effort Auscultation: clear to auscultation bilaterally, no crackles, no rales and no rhonchi Cardio: Rate: regular rate Rhythm: regular rhythm Heart sounds: no gallops, no murmurs and no rubs GI: GI Palp: Yes Soft to palpation and No Tenderness to palpation present (GI) Extrem: General: no edema Objective Data Vital Signs Vital Signs: Vital Signs - 24 hr 10/03/23 21:09 10/03/23 22:00 10/03/23 21:20 Temperature 98.1 F Pulse Rate 75 77 78 Respiratory Rate 20 20 20 Blood Pressure 160/79 H Pulse Oximetry 95 Oxygen Delivery 10/03/23 20:00 10/04/23 03:25 10/03/23 20:00 Temperature Pulse Rate 76 67 Respiratory Rate 20 Blood Pressure Pulse Oximetry 95 Oxygen Delivery Room Air 10/04/23 00:00 10/04/23 04:00 10/04/23 06:00 Temperature 96.9 F L Pulse Rate 70 65 71 Respiratory Rate 20 Blood Pressure 124/65 Pulse Oximetry 95 Oxygen Delivery 10/04/23 08:52 10/04/23 08:55 10/04/23 09:03 Temperature Pulse Rate 73 71 67 Respiratory Rate 20 20 20 Blood Pressure Pulse Oximetry 92 Oxygen Delivery Room Air 10/04/23 09:35 10/04/23 09:35 10/04/23 08:00 Temperature Pulse Rate 68 68 65 Respiratory Rate Blood Pressure Pulse Oximetry Oxygen Delivery 10/04/23 12:00 10/04/23 14:00 10/04/23 14:50 Temperature 97.7 F Pulse Rate 65 65 64 Respiratory Rate 16 20 Blood Pressure 113/51 L Pulse Oximetry 91 Oxygen Delivery 10/04/23 15:00 10/04/23 15:57 10/04/23 15:58 Temperature 97.2 F L Pulse Rate 65 64 Respiratory Rate 20 16 Blood Pressure 118/54 L 125/60 Pulse Oximetry 98 Oxygen Delivery 10/04/23 15:58 10/04/23 16:00 Temperature Pulse Rate 65 Respiratory Rate Blood Pressure 120/60 Pulse Oximetry Oxygen Delivery Intake/Output Intake/Output: Intake & Output 10/01/23 10/02/23 10/03/23 10/04/23 23:59 23:59 23:59 23:59 Intake Total 1680 960 555 580 Output Total 995 230 7726 850 Balance 930 015 -958 -685 Meds/Results Medications: Active Medications Generic Name Dose Route Start Last Admin Trade Name Freq PRN Reason Stop Dose Admin Acetaminophen 500 mg 09/27/23 00:00 10/04/23 16:38 Acetaminophen 500 Mg Tablet PO 500 mg Q6HR CODY Administration Hydrocodone Bitart/Acetaminophen 1 tab 09/26/23 21:41 10/04/23 15:23 Hydrocodone/Acetaminophen (*Crx) 10-325 Mg Tablet PO 1 tab Q8H PRN Administration Pain (Scale Score 4-6) Amiodarone HCl 200 mg 09/27/23 09:00 10/04/23 09:35 Amiodarone Hcl 200 Mg Tablet PO 200 mg DAILY CODY Administration Amlodipine Besylate 5 mg 10/03/23 14:40 10/04/23 09:34 Amlodipine Besylate 5 Mg Tablet PO 5 mg QAM CODY Administration Apixaban 5 mg 09/27/23 22:00 10/04/23 09:34 Apixaban 5 Mg Tablet PO 5 mg Q12HR CODY Administration Aspirin 81 mg 09/27/23 09:00 10/04/23 09:35 Aspirin 81 Mg Enteric Tablet
[2023-10-04 20:30] LABS: Glucose Point of Care 208 mg/dl (65-105)
[2023-10-04] MEDS: INSULIN GLARGINE (*BKC) 100 UNITS/ML 7 UNITS SUB-Q (21:42)
[2023-10-04] MEDS: SENNA/DOCUSATE SODIUM TABLET 1 TAB PO (21:45)
[2023-10-04] MEDS: ATORVASTATIN 40 MG TABLET 80 MG PO (21:45)
[2023-10-04] MEDS: MELATONIN 5 MG TABLET PO (21:46)
[2023-10-05] VITALS (11 sets, daily range): BP systolic 120–144; BP diastolic 46–74; PULSE 61–98; RESP 13–20; TEMP 36.1–36.7; O2SAT 92–96
[2023-10-05] MEDS: IPRATROPIUM BR 0.02% INH SOLN 0.5 MG/2.5 ML VIAL INHALATION ×3 (03:03→14:42)
[2023-10-05] MEDS: ACETAMINOPHEN 500 MG TABLET PO ×2 (05:06→11:02)
[2023-10-05] MEDS: guaiFENesin/DEXTROMETHORPHAN 10 ML UDC 20 ML PO ×2 (05:06→11:02)
[2023-10-05 06:30] LABS: Basophils Percent Auto 0.5 % (0.2-1.2); Eosinophils Absolute Auto 0.3 K/mm3 (0-0.3); Hematocrit 29.1 % (37.0-47.0); Hemoglobin 8.7 g/dL (12.0-15.0); Immature Granulocyte Absolute 0.02 K/mm3 (0.00-0.031); Immature Granulocyte Percent A 0.5 % (0-0.5); Lymphocytes Absolute Auto 0.88 K/mm3 (0.9-3.2); Lymphocytes Percent Auto 21.2 % (18.3-44.2); Mean Corpuscular HGB Conc 29.9 g/dl (32-36); Mean Corpuscular Hemoglobin 32.2 pg (26-34); Mean Corpuscular Volume 107.8 fl (80-100); Mean Platelet Volume 9.8 fl (7.4-10.4); Monocytes Absolute Auto 0.5 K/mm3 (0.1-0.6); Monocytes Percent Auto 11.1 % (2.6-8.5); Neutrophils Absolute Auto 2.5 K/mm3 (1.3-6.7); Neutrophils Percent Auto 59.7 % (45.5-73.1); Platelet Count Result 228 k/mm3 (150-375); Red Cell Distribution Width 15.5 % (11.5-14.5); White Blood Count 4.2 K/mm3 (4.5-10.0)
[2023-10-05 06:58] LABS: Albumin Level 1.8 g/dL (3.5-5.1); Anion Gap 6 mmol/L (8-16); Blood Urea Nitrogen 53 mg/dL (7-17); Calcium 8.2 mg/dL (8.4-10.2); Carbon Dioxide 24 mmol/L (22-30); Chloride 107 mmol/L (98-107); Estimated CRCL calculation 21 ml/min; Estimated Glomerular Filt Rate 19; Glucose 157 mg/dL (65-110); Phosphorus 4.8 mg/dL (2.5-4.5); Potassium 4.5 mmol/L (3.4-5.0); Sodium 137 mmol/L (137-145)
[2023-10-05 07:35] LABS: Glucose Point of Care 152 mg/dl (65-105)
[2023-10-05] MEDS: PANTOPRAZOLE SOD SESQUIHYDRATE 20 MG TAB PO (08:23)
[2023-10-05] MEDS: guaiFENesin 12 HR 600 MG TABCR PO (08:23)
[2023-10-05] MEDS: GABAPENTIN 300 MG CAPSULE PO ×2 (08:23→13:52)
[2023-10-05] MEDS: SENNA/DOCUSATE SODIUM TABLET 1 TAB PO (08:23)
[2023-10-05] MEDS: TAMSULOSIN HCL 0.4 MG CAPSULE PO (08:23)
[2023-10-05] MEDS: ASPIRIN 81 MG ENTERIC TABLET PO (08:23)
[2023-10-05] MEDS: BENZONATATE 100 MG CAPSULE 200 MG PO ×2 (08:23→13:52)
[2023-10-05] MEDS: ERGOCALCIFEROL 50,000 UNITS CAPSULE 50000 UNITS PO (08:23)
[2023-10-05] MEDS: EZETIMIBE 10 MG TABLET PO (08:23)
[2023-10-05] MEDS: DOXYCYCLINE HYCLATE 100 MG TABLET PO (08:24)
[2023-10-05] MEDS: AMIODARONE HCL 200 MG TABLET PO (08:24)
[2023-10-05] MEDS: HYDROcodone/acetaminophen (*CRX) 10-325 MG TABLET 1 TAB PO (10:57)
[2023-10-05] MEDS: FAMOTIDINE 20 MG TABLET PO (10:58)
[2023-10-05] MEDS: APIXABAN 5 MG TABLET PO (10:58)
[2023-10-05 11:46] LABS: Glucose Point of Care 220 mg/dl (65-105)
[2023-10-05] MEDS: INSULIN ASPART (*BKC) 100 UNITS/ML SUB-Q (11:57)
--- NOTE | 2023-10-05 13:27 | PM.DS ---
DS: Admitting Diagnosis Discharge Date 10/05/23 Admitting Diagnosis cough DS: Discharge Diagnosis Discharge Diagnosis (1) Cerebrovascular accident: Code(s): I63.9 - Cerebral infarction, unspecified Status: Acute (2) Cough: Qualifiers: Cough type: subacute Qualified Code(s): R05.2 - Subacute cough Code(s): R05 - Cough Status: Acute (3) Acute exacerbation of CHF (congestive heart failure): Qualifiers: Heart failure type: unspecified Qualified Code(s): I50.9 - Heart failure, unspecified Code(s): I50.9 - Heart failure, unspecified Status: Acute DS: Summary Hospital Course Hospital Course: 78F w/ multiple medical comorbidities presented with cough and rhinorrhea. She was found to have PNA on high resolution Ct of chest. She was treated with flagyl and levaquin considering she had an abnormal MBS, and eventually transitioned to doxycycline. She was also treated for acute CHF exacerbation, but will go home with lasix on hold given her GFR dropped with overdiuresis. She'll follow up with cardiology on this as well as her other cardiac issues including cardiac shunt. found to have chronic right GSV thrombus and new lacunar infarcts, however she is on eliquis, and aspirin was added. she was started on other therapies for cough, including famotidine for suspected GERD, cough suppressants and guaifenesin. Ultimately, she is in'ed home in stable condition with home health. If her cough returns she is advised to f/u with primary and then pulmonology. More than 30 minutes spent on discharge planning and documentation. Time Spent with Patient Time attestation: Total time spent providing and/or coordinating discharge services: Exam Const: General: cooperative and no acute distress Resp: Effort & Inspection: normal respiratory effort Auscultation: clear to auscultation bilaterally Cardio: Rate: regular rate Rhythm: regular rhythm Heart sounds: S1 normal heart sound present and S2 normal heart sound present GI: GI Palp: No abdominal tenderness Auscultation: normal bowel sounds DS: Data Data Completed and Pending Labs on day of discharge: Labs from last 24 hours 10/05/23 10/05/23 10/05/23 11:39 07:33 06:11 WBC 4.2 L RBC 2.70 L Hgb 8.7 L Hct 29.1 L MCV 107.8 H MCH 32.2 MCHC 29.9 L RDW 15.5 H Plt Count 228 MPV 9.8 Immature Gran % (Auto) 0.5 Neut % (Auto) 59.7 Lymph % (Auto) 21.2 Bailey % (Auto) 11.1 H Eos % (Auto) 7.0 H Baso % (Auto) 0.5 Lymph # (Auto) 0.88 L Bailey # (Auto) 0.5 Eos # (Auto) 0.3 Baso # (Auto) 0.0 Abs Immat Gran (auto) 0.02 Absolute Neuts (auto) 2.5 Absolute Nucleated RBC 0.0 Nucleated RBC % 0.0 Sodium 137 Potassium 4.5 Chloride 107 Carbon Dioxide 24 Anion Gap 6 L BUN 53 H Creatinine 2.50 H Estim Creat Clear Calc 21 Estimated GFR 19 L Glucose 157 H POC Capillary Glucose 220 H 152 H Calcium 8.2 L Phosphorus 4.8 H Albumin 1.8 L Nasal RSV Type A (PCR) Nasal RSV Type B (PCR) Chlamy pneumoniae PCR Adenovirus DNA Human Bocavirus (ANN) Coronavirus Type OC43 Coronavirus Type HKU1 Coronavirus Type 229E Coronavirus Type NL63 Human Metapneumovir PCR Influenza A (PCR) Influenza A (H1) RNA Influenza A (H3) PCR M. pneumoniae DNA Parainfluenza PCR Parainfluenza 2 (PCR) Parainfluenza 3 RNA (PCR) Parainfluenza 4 (PCR) Rhino/Enterovirus (ANN) SARS-CoV-2 RNA (RT-PCR) Influenza Type B (PCR) [facility] 10/05/23 10/04/23 10/04/23 05:05 20:01 16:17 WBC RBC Hgb Hct MCV MCH MCHC RDW Plt Count MPV Immature Gran % (Auto) Neut % (Auto) Lymph % (Auto) Bailey % (Auto) Eos % (Auto) Baso % (Auto) Lymph # (Auto) Bailey # (Auto) Eos # (Auto) Baso # (Auto) Abs Immat Gran (auto) Ab
[2023-10-08 18:35] LABS: Adenovirus DNA Not Detected (Not Detected); Chlamydophila pneumoniae Not Detected (Not Detected); Coronavirus 229E Not Detected (Not Detected); Coronavirus HKU1 Not Detected (Not Detected); Coronavirus NL63 Not Detected (Not Detected); Coronavirus OC43 Not Detected (Not Detected); Human Metapneumovirus Not Detected (Not Detected); Human Parainfluenza Virus 1 Not Detected (Not Detected); Human Parainfluenza Virus 2 Not Detected (Not Detected); Human Parainfluenza Virus 3 Not Detected (Not Detected); Human Parainfluenza Virus 4 Not Detected (Not Detected); Human RSV B Not Detected (Not Detected); Influenza A Not Detected (Not Detected); Influenza B Not Detected (Not Detected); Mycoplasma pneumoniae Not Detected (Not Detected); Rhinovirus/Enterovirus Not Detected (Not Detected)
== END 2023-10-05 16:24 | disposition home health service (06) | DRG 64 ==
LOC: ANHED 15:06 → ANHIMU 15:59 → ANH3MEDSUR 09-30 11:01 → ANHIMU 10-06 09:12
PROVIDERS: Family Medicine; Internal Medicine; Internal Medicine Nephrology; Student in an Organized Health Care Education/Training Program; Admitting Provider Student in an Organized Health Care Education/Training Program; Emergency Provider Physician Assistant; PCP Family Medicine; Visit Provider General Practice
DX: I63.9 Cerebral infarction, unspecified (principal); I50.33 Acute on chronic diastolic (congestive) heart failure; J18.9 Pneumonia, unspecified organism; J69.0 Pneumonitis due to inhalation of food and vomit; I13.0 Hypertensive heart and chronic kidney disease with heart failure and stage 1 through stage 4 chronic kidney disease, or unspecified chronic kidney disease; N18.4 Chronic kidney disease, stage 4 (severe); N17.9 Acute kidney failure, unspecified; I47.29 Other ventricular tachycardia; E11.22 Type 2 diabetes mellitus with diabetic chronic kidney disease; Z79.4 Long term (current) use of insulin; G47.33 Obstructive sleep apnea (adult) (pediatric); Z86.73 Personal history of transient ischemic attack (TIA), and cerebral infarction without residual deficits; E55.9 Vitamin D deficiency, unspecified; Z79.01 Long term (current) use of anticoagulants; E78.5 Hyperlipidemia, unspecified; K21.9 Gastro-esophageal reflux disease without esophagitis; I48.0 Paroxysmal atrial fibrillation; R47.1 Dysarthria and anarthria; R13.13 Dysphagia, pharyngeal phase; E11.65 Type 2 diabetes mellitus with hyperglycemia; E11.42 Type 2 diabetes mellitus with diabetic polyneuropathy
CPT/HCPCS: 36415; 70544; 70551; 71045; 71046; 71250; 76775; 80048; 80053; 80069; 81001; 81050; 82570; 82607; 82746; 82948; 83605; 83735; 83880; 84100; 84156; 84300; 84484; 84540; 85025; 85380; 85610; 85730; 85999; 87070; 87086; 87205; 87633; 87634; 87636; 92526; 92610; 92611; 93005; 93306; 93308; 93880; 93970; 94640; 96374; 96375; 97110; 97116; 97161; 97165; 97168; 97530; 97535; 99285; A9270; G0378; J0360; J1815; J1940; J2405; J7030

== ENCOUNTER 2023-10-13 17:46 | Emergency (ER) | payer MEDICARE, SELFPAY ==
--- NOTE | ~2023-10-13 | XR_ITS ---
EXAMINATION: XR chest 2V DATE: 10/13/2023 23:58 INDICATION: Cough. TECHNIQUE: Frontal and lateral views of the chest were obtained. COMPARISON: Chest single view 09/28/2023, chest CT 09/30/2023 FINDINGS: There are airspace opacities in right upper lobe and left lower lobe. There are small pleur al effusions. No pneumothorax. Cardiomegaly is noted. IMPRESSION: 1. Airspace opacities in right upper lobe and left lower lobe with improvement in left lower lobe, co nsistent with pneumonia. 2. Small pleural effusions. 3. Cardiomegaly. Reviewed, dictated and finalized at location [employer] IMPRESSION: 1. Airspace opacities in right upper lobe and left lower lobe with improvement in left lower lobe, consistent with pneumonia. 2. Small pleural effusions. 3. Cardiomegaly.
[2023-10-13 18:17] VITALS: BP 97/76; PULSE 66; RESP 18; TEMP 36.4; O2SAT 99
[2023-10-13 21:03] VITALS: BP 138/75; PULSE 66; RESP 16; O2SAT 99
[2023-10-13 22:19] VITALS: RESP 18; O2SAT 98
[2023-10-13 22:30] VITALS: PULSE 66; PULSE 69; RESP 16; O2SAT 99
[2023-10-13 22:45] VITALS: PULSE 67; RESP 12; O2SAT 97
[2023-10-13 23:00] VITALS: PULSE 66; RESP 20; O2SAT 100
[2023-10-13 23:56] LABS: Basophils Percent Auto 0.4 % (0.2-1.2); Eosinophils Absolute Auto 0.2 K/mm3 (0-0.3); Eosinophils Percent Auto 3.6 % (0-4.4); Hemoglobin 10.5 g/dL (12.0-15.0); Immature Granulocyte Absolute 0.01 K/mm3 (0.00-0.031); Immature Granulocyte Percent A 0.2 % (0-0.5); Lymphocytes Absolute Auto 1.13 K/mm3 (0.9-3.2); Lymphocytes Percent Auto 21.3 % (18.3-44.2); Mean Corpuscular HGB Conc 30.9 g/dl (32-36); Mean Corpuscular Volume 103.7 fl (80-100); Mean Platelet Volume 9.8 fl (7.4-10.4); Monocytes Absolute Auto 0.5 K/mm3 (0.1-0.6); Monocytes Percent Auto 8.7 % (2.6-8.5); Neutrophils Absolute Auto 3.5 K/mm3 (1.3-6.7); Neutrophils Percent Auto 65.8 % (45.5-73.1); Platelet Count Result 233 k/mm3 (150-375); Red Blood Count 3.28 M/mm3 (4.2-5.4); Red Cell Distribution Width 15.5 % (11.5-14.5); White Blood Count 5.3 K/mm3 (4.5-10.0)
[2023-10-14 00:09] LABS: Alanine Aminotransferase 18 U/L (6-35); Albumin Level 3.3 g/dL (3.5-5.1); Alkaline Phosphatase 86 U/L (38-126); Anion Gap 2 mmol/L (8-16); Aspartate Amino Transferase 32 U/L (14-36); Bilirubin,Total 0.6 mg/dL (0.2-1.3); Blood Urea Nitrogen 38 mg/dL (7-17); Calcium 8.9 mg/dL (8.4-10.2); Carbon Dioxide 27 mmol/L (22-30); Chloride 109 mmol/L (98-107); Estimated CRCL calculation 21 ml/min; Estimated Glomerular Filt Rate 20; Glucose 144 mg/dL (65-110); Lipase 59 U/L (23-300); Potassium 4.5 mmol/L (3.4-5.0); Sodium 138 mmol/L (137-145)
[2023-10-14] MEDS: ONDANSETRON INJ 4 MG/2 ML VIAL IV PUSH (00:33)
--- NOTE | 2023-10-14 01:33 | ED.GENADULT ---
HPI - General Adult General Chief complaint: Weakness Stated complaint: N/V-weakness Time Seen by Provider: 10/13/23 22:13 History of Present Illness HPI narrative: patient is a 78-year-old female who presents ER with nausea vomiting. Patient recently had to stays in the hospital. She had pneumonia and she also had suffered a stroke at 1 point. Reports since her discharge she has had nausea at home. She has tried Zofran without improvement. No falls or dizziness. No fevers or chills or sweats. She continues to have a coarse rattling cough. Related Data Home Medications Medication Instructions Recorded Confirmed gabapentin 300 mg capsule 300 mg PO TID 12/07/19 09/26/23 ergocalciferol (vitamin D2) 1,250 1,250 mcg PO WEEKLY 02/22/21 09/26/23 mcg (50,000 unit) capsule docusate sodium 100 mg capsule 1 cap PO DAILY 05/04/22 09/26/23 dicyclomine 10 mg capsule 10 mg PO TID PRN Abdominal 03/27/23 09/26/23 Discomfort allopurinol 100 mg tablet 100 mg PO DAILY 09/15/23 09/26/23 atorvastatin 80 mg tablet 80 mg PO HS 09/15/23 09/26/23 ezetimibe 10 mg tablet 10 mg PO DAILY 09/15/23 09/26/23 fenofibrate 160 mg tablet 160 mg PO DAILY 09/15/23 09/26/23 hydrocodone 10 mg-acetaminophen 10 tablet PO Q8H PRN Pain (Scale 09/15/23 09/26/23 325 mg tablet Score 4-6) insulin lispro 100 unit/mL See Rx Instructions .Route 09/15/23 09/26/23 subcutaneous pen (Humalog KwikPen .COMPLEX PRN Hyperglycemia (U-100) Insulin) melatonin 5 mg tablet 5 mg PO HS 09/15/23 09/26/23 sitagliptin phosphate 25 mg tablet 25 mg PO DAILY 09/15/23 09/26/23 (Januvia) acetaminophen 500 mg capsule 500 mg PO Q6H 09/26/23 09/26/23 Allergies Allergy/AdvReac Type Severity Reaction Status Date / Time ceftriaxone Allergy Unknown Anaphylaxis Verified 10/13/23 17:46 ,Unknown,An aphylaxis,U nknown clindamycin Allergy Unknown Anaphylaxis,Not Verified 10/13/23 17:46 Entered,Anaphylaxis,Not Entered morphine Allergy Unknown Not Verified 10/13/23 17:46 Entered,Vomiting,Not Entered,Vomiting nitroglycerin Allergy Unknown Headache,Not Verified 10/13/23 17:46 Entered,Not Entered,Headache Penicillins Allergy Unknown Hives,Not Verified 10/13/23 17:46 Entered,Not Entered,Hives Review of Systems Review of Systems: All systems reviewed & are unremarkable except as noted in HPI and below Constitutional: Constitutional: Denies chills, Reports fatigue and Denies fever(s) Cardiovascular: Cardiovascular: Reports no additional cardiovascular complaints Respiratory: Respiratory: Reports cough, Denies dyspnea and Denies wheezing Gastrointestinal: Gastrointestinal: Denies abdominal pain, Denies diarrhea, Reports nausea and Reports vomiting Genitourinary: Genitourinary: Reports no additional female genitourinary complaints [facility] Past Medical History Medical History (Updated 10/14/23 @ 01:34 by Kole Coates MD) Anemia of chronic disease Bleeding ulcer Body mass index (BMI) greater than 35 (10/20/18) Calculus of gallbladder Cerebrovascular accident 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 Chronic anticoagulation Congestive heart failure History of reduced ejection fraction with improvement in EF to 55% on most recent echo. Diastolic dysfunction also noted. 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 Depression with anxiety Diabetic peripheral neuropathy Dyslipidemia Essential hypertension Fibromyalgia Gastroesophageal reflux disease History of peptic ulcer Hypersomnia Insulin dependent type 2 diabetes mellitus Obstructive sleep apnea on CPAP Osteoarthritis Paroxysmal atrial flutter Stage III chronic kidney disease Baseline creatinine ranges between 1.3 and 1.60. Vitamin D deficiency Surgical History Surgical History (Reviewed 10/02/23 @ 12:33 b
[2023-10-14 02:20] VITALS: BP 152/79; PULSE 71; RESP 17; O2SAT 96
== END 2023-10-14 02:20 | disposition home or self-care (01) ==
PROVIDERS: Emergency Provider Emergency Medicine; PCP Family Medicine
DX: R11.2 Nausea with vomiting, unspecified (principal); R53.83 Other fatigue; E11.22 Type 2 diabetes mellitus with diabetic chronic kidney disease; I13.0 Hypertensive heart and chronic kidney disease with heart failure and stage 1 through stage 4 chronic kidney disease, or unspecified chronic kidney disease; N18.30 Chronic kidney disease, stage 3 unspecified; I50.9 Heart failure, unspecified; D63.8 Anemia in other chronic diseases classified elsewhere; E11.42 Type 2 diabetes mellitus with diabetic polyneuropathy; E78.5 Hyperlipidemia, unspecified; I48.92 Unspecified atrial flutter; K21.9 Gastro-esophageal reflux disease without esophagitis; G47.33 Obstructive sleep apnea (adult) (pediatric); M79.7 Fibromyalgia; M19.90 Unspecified osteoarthritis, unspecified site; Z87.01 Personal history of pneumonia (recurrent); Z86.73 Personal history of transient ischemic attack (TIA), and cerebral infarction without residual deficits; Z87.11 Personal history of peptic ulcer disease; Z90.710 Acquired absence of both cervix and uterus; Z77.22 Contact with and (suspected) exposure to environmental tobacco smoke (acute) (chronic); Z79.84 Long term (current) use of oral hypoglycemic drugs; Z79.4 Long term (current) use of insulin; I51.7 Cardiomegaly
CPT/HCPCS: 36415; 71046; 80053; 83690; 85025; 96374; 99284; J2405

== ENCOUNTER 2024-01-12 10:30 | Outpatient (CLI) | payer MEDICARE, SELFPAY ==
[2024-01-12 11:36] LABS: Basophils Percent Auto 0.8 % (0.2-1.2); Eosinophils Absolute Auto 0.2 K/mm3 (0-0.3); Eosinophils Percent Auto 5.2 % (0-4.4); Hematocrit 35.3 % (37.0-47.0); Hemoglobin 11.1 g/dL (12.0-15.0); Immature Granulocyte Absolute 0.01 K/mm3 (0.00-0.031); Immature Granulocyte Percent A 0.3 % (0-0.5); Lymphocytes Percent Auto 20.7 % (18.3-44.2); Mean Corpuscular HGB Conc 31.4 g/dl (32-36); Mean Corpuscular Hemoglobin 33.2 pg (26-34); Mean Corpuscular Volume 105.7 fl (80-100); Mean Platelet Volume 9.7 fl (7.4-10.4); Monocytes Absolute Auto 0.3 K/mm3 (0.1-0.6); Monocytes Percent Auto 6.5 % (2.6-8.5); Neutrophils Absolute Auto 2.6 K/mm3 (1.3-6.7); Neutrophils Percent Auto 66.5 % (45.5-73.1); Platelet Count Result 255 k/mm3 (150-375); Red Blood Count 3.34 M/mm3 (4.2-5.4); Red Cell Distribution Width 14.9 % (11.5-14.5); White Blood Count 3.9 K/mm3 (4.5-10.0)
[2024-01-12 12:03] LABS: Alanine Aminotransferase 15 U/L (6-35); Albumin Level 3.8 g/dL (3.5-5.1); Alkaline Phosphatase 63 U/L (38-126); Anion Gap 6 mmol/L (8-16); Aspartate Amino Transferase 28 U/L (14-36); Bilirubin,Total 0.5 mg/dL (0.2-1.3); Blood Urea Nitrogen 52 mg/dL (7-17); Calcium 9.1 mg/dL (8.4-10.2); Carbon Dioxide 27 mmol/L (22-30); Chloride 104 mmol/L (98-107); Estimated Glomerular Filt Rate 16; Glucose 199 mg/dL (65-110); Phosphorus 4.3 mg/dL (2.5-4.5); Potassium 4.2 mmol/L (3.4-5.0); Sodium 137 mmol/L (137-145); Uric Acid 8.7 mg/dL (2.5-7.5)
[2024-01-12 12:08] LABS: Parathyroid Intact 148.9 pg/mL (7.5-53.5)
[2024-01-12 12:17] LABS: Creatinine Urine 76.6 mg/dL; Total Protein Urine Random 152 mg/dL; Ur Ttl Prot Creatinine Ratio 1.98 mg/mg (0-0.20)
[2024-01-12 12:27] LABS: Vitamin D 25 Hydroxy 33.8 ng/mL
[2024-01-12 13:06] LABS: Folic Acid 9.9 ng/mL (2.76->20)
== END 2024-01-12 10:31 | disposition home or self-care (01) ==
PROVIDERS: PCP Family Medicine; Visit Provider Internal Medicine Nephrology
DX: M10.9 Gout, unspecified (principal); E66.9 Obesity, unspecified; D64.9 Anemia, unspecified; E11.9 Type 2 diabetes mellitus without complications; E78.5 Hyperlipidemia, unspecified; I12.9 Hypertensive chronic kidney disease with stage 1 through stage 4 chronic kidney disease, or unspecified chronic kidney disease; N18.32 Chronic kidney disease, stage 3b
CPT/HCPCS: 36415; 80053; 82306; 82570; 82607; 82746; 83970; 84100; 84156; 84550; 85025

== ENCOUNTER 2024-01-16 11:34 | Observation (INO) | payer MEDICARE, SELFPAY ==
[2024-01-16] VITALS (10 sets, daily range): BP systolic 102–132; BP diastolic 50–71; PULSE 63–75; RESP 11–21; TEMP 36.4; O2SAT 97–98; BMI 34.9
--- NOTE | ~2024-01-16 | MR_ITS ---
EXAMINATION: MR brain/brain stem wo con DATE: 01/17/2024 07:57 INDICATION: Intermittent speech disturbance TECHNIQUE: Magnetic resonance imaging (MRI) of the brain and brainstem was performed without intraven ous contrast. Sequences included sagittal and axial T1-weighted SE, axial diffusion-weighted FS SE, a xial T2*-weighted GRE, axial 3D SWAN, axial T2-weighted FLAIR, and axial T2-weighted FSE. Apparent di ffusion coefficient (ADC) maps were created. COMPARISON: None. FINDINGS: There are no areas of restricted diffusion to suggest acute infarction. Small region of encephalomala ramya consistent with old infarct along a gyrus in the left frontal lobe along with a few additional sm all old lacunar infarcts in the right caudate nucleus, in the bilateral periventricular frontal lobe marino radiata and at the bilateral cerebellar hemispheres. No intracranial hemorrhage or abnormal in tracranial mass lesion. There are scattered areas of nonspecific increased T2-weighted signal intensi ty in the cerebral white matter, predominantly involving the deep and periventricular white matter. T here are no intraparenchymal signal abnormalities seen on the other pulse sequences. The ventricles a re symmetric and normal in size. There are no abnormal extra-axial fluid collections. Flow voids are seen in the cerebral arteries on the T2-weighted sequences consistent with their expected patency. Ch anges of left intraocular lens replacement. Mild mucoperiosteal thickening in the bilateral ethmoid a nd maxillary sinuses. Mucous retention cyst in the left maxillary sinus. Visualized orbits and soft t issues are unremarkable. IMPRESSION: 1. 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 No acute intracranial process. Reviewed, dictated and finalized at location L. IMPRESSION: 1. 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 No acute intracranial process.
--- NOTE | ~2024-01-16 | CT_ITS ---
EXAMINATION: CT brain wo con DATE: 01/16/2024 12:45 INDICATION: Slurred speech. Cerebral vascular accident. TECHNIQUE: Computed tomography (CT) of the head was performed without intravenous contrast. The mA wa s adjusted according to patient size. Iterative reconstruction technique was employed. The dose-lengt h product was 529.67 mGy-cm. COMPARISON: Head CT 03/30/2023 FINDINGS: There is a small old infarct in left cerebellum. There are scattered areas of low attenuati on in the cerebral white matter, which is within normal limits for the patient's age. There are old infarcts in the bilateral basal ganglia. There is an old infarct in left frontal lobe. There is no in tracranial hemorrhage, acute infarction, or abnormal intracranial mass lesion. The ventricles are nor mal in size. There is mild mucosal thickening in the paranasal sinuses. There are likely changes of l eft ocular lens replacement surgery. The mastoid air cells are normal. IMPRESSION: 1. Old infarcts involving the left frontal lobe, bilateral basal ganglia, and left cerebellum. Reviewed, dictated and finalized at location A. IMPRESSION: 1. Old infarcts involving the left frontal lobe, bilateral basal ganglia, and l eft cerebellum.
--- NOTE | ~2024-01-16 | US_ITS ---
EXAMINATION: US carotid duplex BI DATE: 01/16/2024 13:19 INDICATION: Slurred speech. Cerebral vascular accident. TECHNIQUE: Grayscale, color Doppler, and pulsed Doppler images of the cervical carotid arteries were obtained. The degree of vessel stenosis is placed in one of the following categories: normal, <50%, 5 0-69%, >=70% but less than near-occlusion, near-occlusion, or total occlusion. Note that percent sten osis relative to normal distal artery lumen diameter is indirectly measured from velocity measurement s as described by Brown, et al. Radiology 2003; 229:340-346. COMPARISON: Ultrasound carotid 10/02/2023 FINDINGS: RIGHT: The right common carotid artery (CCA) peak systolic velocity (PSV) is 55 cm/s. The right internal car otid artery (ICA) PSV is 32 cm/s. The right ICA end-diastolic velocity (EDV) is 9 cm/s. The right ICA /CCA PSV ratio is 0.6. Grayscale and color Doppler images yield an estimate of <50% diameter reductio n from plaque in the ICA. There is antegrade flow in the right vertebral artery. LEFT: The left CCA PSV is 53 cm/s. The left ICA PSV is 58 cm/s. The left ICA EDV is 21 cm/s. The left ICA/C CA PSV ratio is 1.1. Grayscale and color Doppler images yield an estimate of <50% diameter reduction from plaque in the ICA. There is antegrade flow in the left vertebral artery. IMPRESSION: 1. <50% stenosis in the right internal carotid artery. 2. <50% stenosis in the left internal carotid artery. Reviewed, dictated and finalized at location A.
--- NOTE | 2024-01-16 11:53 | ED.NEUROSD ---
HPI - Neuro Symptoms/Deficit General Chief Complaint: Neuro Symptoms/Deficit <Rosa Young PA-C - Last Filed: 01/16/24 17:50> Stated Complaint: R facial numbnes x1.5 days <Rosa Young PA-C - Last Filed: 01/16/24 17:50> Time Seen by Provider: 01/16/24 11:41 <CLARENCE Briones Last Filed: 01/16/24 17:50> Source: patient and old records reviewed <CLARENCE Briones Last Filed: 01/16/24 17:50> Mode of arrival: ambulatory <CLARENCE Briones Last Filed: 01/16/24 17:50> Limitations: no limitations <CLARENCE Briones Last Filed: 01/16/24 17:50> History of Present Illness HPI Narrative: Patient is a 78-year-old female who presents the ED with report of slurred speech. Patient reports she has had slurred speech and intermittent expressive aphasia for the last 5 days. Daughter states patient has had intermittent episodes of this in the past, so they did not think much of it at first. Patient admits to Hx of mini-strokes. They contacted their primary care doctor today and was referred to the ED for further evaluation. Patient also reports having intermittent blurry vision in her right eye, described as a cloudiness in her eye. Denies eye pain. She does also admit to brain fog, forgetfulness, intermittent weakness in her right upper extremity, denies weakness in lower extremities. Denies numbness. Denies chest pain, shortness breath, nausea, vomiting, dizziness. Patient is on eliquis d/t hx of pAFIB. <CLARENCE Briones Last Filed: 01/16/24 17:50> Related Data Home Medications: Home Medications Medication Instructions Recorded Confirmed gabapentin 300 mg capsule 300 mg PO TID 12/07/19 12/06/23 ergocalciferol (vitamin D2) 1,250 1,250 mcg PO WEEKLY 02/22/21 12/06/23 mcg (50,000 unit) capsule docusate sodium 100 mg capsule 1 cap PO DAILY 05/04/22 12/06/23 dicyclomine 10 mg capsule 10 mg PO TID PRN Abdominal 03/27/23 12/06/23 Discomfort allopurinol 100 mg tablet 100 mg PO DAILY 09/15/23 12/06/23 atorvastatin 80 mg tablet 80 mg PO HS 09/15/23 12/06/23 ezetimibe 10 mg tablet 10 mg PO DAILY 09/15/23 12/06/23 fenofibrate 160 mg tablet 160 mg PO DAILY 09/15/23 12/06/23 hydrocodone 10 mg-acetaminophen 10 tablet PO Q8H PRN Pain (Scale 09/15/23 12/06/23 325 mg tablet Score 4-6) insulin lispro 100 unit/mL See Rx Instructions .Route 09/15/23 12/06/23 subcutaneous pen (Humalog KwikPen .COMPLEX PRN Hyperglycemia (U-100) Insulin) melatonin 5 mg tablet 5 mg PO HS 09/15/23 12/06/23 sitagliptin phosphate 25 mg tablet 25 mg PO DAILY 09/15/23 12/06/23 (Januvia) acetaminophen 500 mg capsule 500 mg PO Q6H 09/26/23 12/06/23 <Rosa Young PA-C - Last Filed: 01/16/24 17:50> Allergies/Adverse Reactions: Allergies Allergy/AdvReac Type Severity Reaction Status Date / Time ceftriaxone Allergy Unknown Anaphylaxis Verified 01/16/24 17:29 ,Unknown,An aphylaxis,U nknown clindamycin Allergy Unknown Anaphylaxis,Not Verified 01/16/24 17:29 Entered,Anaphylaxis,Not Entered morphine Allergy Unknown Not Verified 01/16/24 17:29 Entered,Vomiting,Not Entered,Vomiting nitroglycerin Allergy Unknown Headache,Not Verified 01/16/24 17:29 Entered,Not Entered,Headache Penicillins Allergy Unknown Hives,Not Verified 01/16/24 17:29 Entered,Not Entered,Hives <Rosa Young PA-C - Last Filed: 01/16/24 17:50> Review of Systems Review of Systems: CONSTITUTIONAL: Denies fever, chills, or sweats. EENT: See HPI. CARDIOVASCULAR: Denies chest pain. RESPIRATORY: Denies dyspnea. GASTROINTESTINAL: Denies abdominal pain, nausea, vomiting. NEUROLOGIC: See HPI. <Rosa Young PA-C - Last Filed: 01/16/24 17:50> All systems reviewed & are unremarkable except as noted in HPI and below <Rosa Young PA-C - Last Filed: 01/16/24 17:50> [facility] Past Medical Hi
--- NOTE | 2024-01-16 12:04 | ECG_ITS ---
Measurements Intervals [place] Rate: 65 P: AR: 0 QRS: -47 QRSD: 154 T: 66 QT: 442 QTc: 462 Interpretive Statements SINUS RHYTHM WITH FIRST DEGREE AV BLOCK LEFT BUNDLE BRANCH BLOCK BASELINE ARTIFACT- I, II, AVR, AVL, AVF, V6 ABNORMAL ECG COMPARED TO ECG 09/27/2023 09:46:48 NO SIGNIFICANT CHANGES Electronically Signed On 01-16-2024 12:47:50 CDT by Chau Vega D.O.
[2024-01-16 12:18] LABS: Basophils Percent Auto 0.6 % (0.2-1.2); Eosinophils Absolute Auto 0.2 K/mm3 (0-0.3); Eosinophils Percent Auto 4.3 % (0-4.4); Hematocrit 33.2 % (37.0-47.0); Hemoglobin 10.3 g/dL (12.0-15.0); Immature Granulocyte Absolute 0.02 K/mm3 (0.00-0.031); Immature Granulocyte Percent A 0.4 % (0-0.5); Lymphocytes Percent Auto 20.5 % (18.3-44.2); Mean Corpuscular Hemoglobin 33.2 pg (26-34); Mean Corpuscular Volume 107.1 fl (80-100); Mean Platelet Volume 9.6 fl (7.4-10.4); Monocytes Absolute Auto 0.4 K/mm3 (0.1-0.6); Monocytes Percent Auto 7.6 % (2.6-8.5); Neutrophils Absolute Auto 3.3 K/mm3 (1.3-6.7); Neutrophils Percent Auto 66.6 % (45.5-73.1); Platelet Count Result 258 k/mm3 (150-375); Red Cell Distribution Width 15.3 % (11.5-14.5); White Blood Count 4.9 K/mm3 (4.5-10.0)
[2024-01-16 12:26] LABS: INR 1.5; Prothrombin Time 19.3 Seconds (11.1-14.7)
[2024-01-16 12:27] LABS: Magnesium 2.4 mg/dL (1.6-2.3); Partial Thromboplastin Time 47.6 SECONDS (22.3-36.8)
[2024-01-16 12:28] LABS: Alanine Aminotransferase 16 U/L (6-35); Albumin Level 3.5 g/dL (3.5-5.1); Alkaline Phosphatase 67 U/L (38-126); Anion Gap 6 mmol/L (8-16); Aspartate Amino Transferase 29 U/L (14-36); Bilirubin,Total 0.5 mg/dL (0.2-1.3); Blood Urea Nitrogen 55 mg/dL (7-17); Calcium 8.5 mg/dL (8.4-10.2); Carbon Dioxide 27 mmol/L (22-30); Chloride 104 mmol/L (98-107); Estimated CRCL calculation 16 ml/min; Estimated Glomerular Filt Rate 15; Glucose 206 mg/dL (65-110); Potassium 4.5 mmol/L (3.4-5.0); Sodium 137 mmol/L (137-145)
[2024-01-16 12:49] LABS: Troponin I 0.025 ng/mL (0.000-0.034)
[2024-01-16] MEDS: SODIUM CHLORIDE 0.9% IV 500 ML 999 ML IV CONT (13:19)
[2024-01-16 13:40] LABS: Appearance Urine Clear (Clear); Bacteria Urine None Seen /hpf; Bilirubin Urine Negative (Negative); Blood Urine Negative (Negative); Color Urine Yellow (Yellow); Glucose Urine UA Trace mg/dL (Negative); Ketones Urine Negative (Negative); Leukocyte Esterase Ur Negative LEU/UL (Negative); Nitrate Urine Negative (Negative); Non Pathogenic Casts 0-2; Protein Urine Trace mg/dL (Negative); RBC Urine 0-2 /hpf (0-2); Specific Grav Ur 1.008 (1.001-1.035); Squamous Epithelial Cell Urine None seen /hpf (Few); Urobilinogen Urine 0.2 mg/dL (<2.0); WBC Urine 0-5 /hpf; pH Urine 6.5 (5.0-9.0)
[2024-01-16 13:46] LABS: Add Urine Microscopic? YES
--- NOTE | 2024-01-16 15:21 | PC.NURSE ---
Meal tray ordered for pt
--- NOTE | 2024-01-16 15:43 | PM.IMHP ---
H&P: HPI History of Present Illness Date/Time: 01/16/24 17:15 Chief Complaint: Intermittent speech problems for 5 days. Narrative: This is a pleasant 78-year-old female?with multiple medical problems including transient ischemic attack, cerebrovascular accident, congestive heart failure, hypertension, dyslipidemia, diabetes, chronic kidney disease, anemia, sleep apnea, and several other comorbidities who presented to the emergency department earlier today for evaluation of intermittent speech problems for 5 days. The patient provides the following history. She reports intermittent episodes of garbled speech which has been ongoing for the past 5 days or so. She has also noticed some paresthesias on the right side of the lower face and perhaps some weakness in the right arm but it is these are also intermittent. She has longstanding issues with intermittent, blurry vision in the right periphery and that is unchanged. Daughter became concerned due to the ongoing symptoms, called the patient's doctor, and was referred to the ED. The patient has no complaints at the time my evaluation and denies headache, neck ache, vertigo, acute visual changes, facial droop, difficulty swallowing, word-finding problems, chest pain, pleuritic pain, shortness a breath, focal weakness, and paresthesias. No chest pain, pleuritic pain, palpitations, or sensations of racing heart. In the ED: She was afebrile on arrival with stable blood pressures. Labs were significant for a WBC count of 4.9, hemoglobin 10.3, MCV 107.1, BUN 55 chronic creatinine 3.10, glucose 206. Brain CT showed old infarcts involving the left frontal lobe, bilateral basal ganglia, and left cerebellum. She is being admitted in this setting for brain MRI. Review of Systems Review of Systems: Twelve systems were reviewed and are negative except for as per HPI. [facility] Past Medical History Medical History Anemia of chronic disease Cerebrovascular accident 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 Cholelithiasis Chronic anticoagulation Congestive heart failure History of reduced ejection fraction with improvement in EF to 55% on most recent echo. Diastolic dysfunction also noted. 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 Depression with anxiety Diabetic peripheral neuropathy Dyslipidemia Essential hypertension Fibromyalgia Gastroesophageal reflux disease History of peptic ulcer Hypersomnia Insulin dependent type 2 diabetes mellitus Obstructive sleep apnea on CPAP Osteoarthritis Paroxysmal atrial flutter Stage III chronic kidney disease Baseline creatinine ranges between 1.3 and 1.60. Vitamin D deficiency Surgical History Surgical History History of appendectomy History of cardiac catheterization (07/2013) Normal coronaries although anomalous left coronary artery arising from the right ostium was noted. History of hysterectomy (1979) History of left breast biopsy Benign pathology. Family History Family History Father Malignant neoplasm of prostate Heart disease Mother Esophageal cancer Sibling Diabetes mellitus Daughter Alcoholism Social History Social History Social History: Surrogate medical decision maker: Mikki Herrera, daughter. Code status: Full Code. Smoking status: Never smoker Second hand tobacco smoke exposure: Yes Alcohol intake: unknown Drinks per week: 1 Alcohol use details: Rare alcohol use in moderation. Substance use: never Substance use type: does not use Do You Feel Safe in your Home?: Yes Lack of Transportation: No Lack of Food: Never True
--- NOTE | 2024-01-16 15:50 | PC.NURSE ---
coffee ordered for patient
--- NOTE | 2024-01-16 17:19 | ADMGEN ---
This patient, Sarah Alvarado, was admitted to 3 [facility] Surg Room 315-01. Patient/family oriented to hospital policies and general routines including ID bracelet, bed and alarms, visiting hours, pain management, procedures, bathroom and other care routines, personal items, smoking policy, room service/diet, and visiting hours. Information on how to activate the Rapid Response Team has been discussed. Patient/Family are encouraged to report perceived risks to care and to ask questions if they do not understand what they are told or what they should do.
[2024-01-16] MEDS: INSULIN ASPART (*BKC) 100 UNITS/ML SUB-Q (20:35)
[2024-01-16] MEDS: ATORVASTATIN 40 MG TABLET 80 MG PO (21:53)
[2024-01-16] MEDS: carvediloL 12.5 MG TABLET PO (21:54)
[2024-01-16] MEDS: APIXABAN 5 MG TABLET PO (21:54)
[2024-01-16] MEDS: FAMOTIDINE 20 MG TABLET PO (21:54)
[2024-01-16] MEDS: MELATONIN 5 MG TABLET PO (21:54)
[2024-01-16] MEDS: GABAPENTIN 300 MG CAPSULE PO (21:54)
[2024-01-16] MEDS: ACETAMINOPHEN 500 MG TABLET PO (21:54)
[2024-01-17] VITALS (14 sets, daily range): BP systolic 99–135; BP diastolic 51–69; PULSE 59–65; RESP 16; TEMP 35.7–36.7; O2SAT 95–98
[2024-01-17] MEDS: ACETAMINOPHEN 325 MG TABLET 650 MG PO (03:42)
[2024-01-17] MEDS: ACETAMINOPHEN 500 MG TABLET PO ×3 (05:29→18:06)
[2024-01-17] MEDS: GABAPENTIN 300 MG CAPSULE PO ×3 (05:29→20:13)
[2024-01-17 07:07] LABS: Basophils Percent Auto 0.7 % (0.2-1.2); Eosinophils Absolute Auto 0.2 K/mm3 (0-0.3); Eosinophils Percent Auto 5.4 % (0-4.4); Hematocrit 29.4 % (37.0-47.0); Hemoglobin 9.1 g/dL (12.0-15.0); Immature Granulocyte Absolute 0.01 K/mm3 (0.00-0.031); Immature Granulocyte Percent A 0.2 % (0-0.5); Lymphocytes Absolute Auto 1.26 K/mm3 (0.9-3.2); Lymphocytes Percent Auto 29.4 % (18.3-44.2); Mean Corpuscular Volume 106.5 fl (80-100); Mean Platelet Volume 9.8 fl (7.4-10.4); Monocytes Absolute Auto 0.5 K/mm3 (0.1-0.6); Monocytes Percent Auto 10.5 % (2.6-8.5); Neutrophils Absolute Auto 2.3 K/mm3 (1.3-6.7); Neutrophils Percent Auto 53.8 % (45.5-73.1); Platelet Count Result 242 k/mm3 (150-375); Red Blood Count 2.76 M/mm3 (4.2-5.4); White Blood Count 4.3 K/mm3 (4.5-10.0)
[2024-01-17 07:23] LABS: Anion Gap 5 mmol/L (8-16); Blood Urea Nitrogen 53 mg/dL (7-17); Calcium 8.1 mg/dL (8.4-10.2); Carbon Dioxide 26 mmol/L (22-30); Chloride 106 mmol/L (98-107); Estimated CRCL calculation 17 ml/min; Estimated Glomerular Filt Rate 15; Glucose 139 mg/dL (65-110); Magnesium 2.3 mg/dL (1.6-2.3); Potassium 4.2 mmol/L (3.4-5.0); Sodium 137 mmol/L (137-145)
[2024-01-17 07:33] LABS: Hypochromasia 1+ (NORMAL); Macrocytosis 1+ (NORMAL); Platelet Estimate Adequate (Adequate); Schistocytes None Seen (NORMAL)
[2024-01-17 09:32] LABS: Glucose Point of Care 280 mg/dl (65-105)
[2024-01-17] MEDS: AMIODARONE HCL 200 MG TABLET PO (09:42)
[2024-01-17] MEDS: ASPIRIN 81 MG ENTERIC TABLET PO (09:43)
[2024-01-17] MEDS: DOCUSATE SODIUM 100 MG CAPSULE PO (09:45)
[2024-01-17] MEDS: TAMSULOSIN HCL 0.4 MG CAPSULE PO (09:45)
[2024-01-17] MEDS: allopurinoL 100 MG TABLET PO (09:45)
[2024-01-17] MEDS: EZETIMIBE 10 MG TABLET PO (09:46)
[2024-01-17] MEDS: APIXABAN 5 MG TABLET PO ×2 (09:46→20:13)
[2024-01-17] MEDS: FAMOTIDINE 20 MG TABLET PO ×2 (09:46→20:13)
--- NOTE | 2024-01-17 11:08 | WPDNEURCNPN ---
Assessment and Plan Assessment and plan (1) Chronic anticoagulation: Code(s): Z79.01 - penitentiary (current) use of anticoagulants Status: Acute Plan 1 dysarthria at the time of presentation which cleared by this time 2. neuropathy secondary to insulin dependent diabetes mellitus 3. Hypertension 4. Chronic renal disease and 5. Chronic obstructive pulmonary disease 6. Atrial fibrillation for which patient is on chronic anticoagulation therapy. Considering that she is stable and also she is already on anticoagulation therapy in addition she herself is feeling better treatment will be continued as such as far as the stroke prevention is concerned in addition to continuation of the general treatment for other medical problems. Her admission diagnosis will be TIA. Consult date: 01/17/24 HPI: Sarah Alvarado is a 78 year old female Admitted to the hospital through the emergency room for the complaint of slurred speech and intermittent expressive difficulties over the last 5 days patient, also gave a history of intermittent mini strokes in addition to the history of intermittent blurred vision in her right eye described as cloudiness without any pain, she also complains of forgetfulness and and brain fog in addition to intermittent weakness in her right upper extremity without any other associated discomfort. Patient has been taking Eliquis for the ongoing history of atrial fibrillation and her other medications include gabapentin 300mg 3 times a day, allopurinol 100mg daily,atorvastatin 80mg at night, hydrocodone pain medication and insulin,, [id number] daily, multiple allergies, and she does have ongoing history of lacunar infarcts in bilateral basal ganglia and left cerebellum documented on CT scan in February of 2021, congestive heart failure, underlying hypertension, diabetes mellitus with peripheral neuropathy, insulin-dependent, and stage III chronic renal disease. At the time of initial evaluation on the floor she had no specific complaints, she is never a smoker,rare alcohol use in moderation, her initial vital signs were normal, routine lab studies with BUN of 55 creatinine of 3.10 glucose of 206, carotid Doppler study less than 50% stenosis bilaterally in the internal carotid arteries, CT scan with old infarcts involving the left frontal lobe, bilateral basal ganglia and left cerebellum MRI today documented small old infarcts in the right caudate nucleus, bilateral frontal lobes and bilateral cerebellar hemispheres but no acute process.. Review of Systems Review of Systems: All systems reviewed & are unremarkable except as noted in HPI and below PMFSH Past Medical History Medical History Anemia of chronic disease Cerebrovascular accident 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 Cholelithiasis Chronic anticoagulation Congestive heart failure History of reduced ejection fraction with improvement in EF to 55% on most recent echo. Diastolic dysfunction also noted. 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 Depression with anxiety Diabetic peripheral neuropathy Dyslipidemia Essential hypertension Fibromyalgia Gastroesophageal reflux disease History of peptic ulcer Hypersomnia Insulin dependent type 2 diabetes mellitus Obstructive sleep apnea on CPAP Osteoarthritis Paroxysmal atrial flutter Stage III chronic kidney disease Baseline creatinine ranges between 1.3 and 1.60. Vitamin D deficiency Surgical History Surgical History History of appendectomy History of cardiac catheterization (07/2013) Normal coronaries although anomalous left coronary artery arising from the right ostium was noted. History of hysterectomy (1979) History of left breast biopsy Benign pa
[2024-01-17 11:36] LABS: Glucose Point of Care 272 mg/dl (65-105)
--- NOTE | 2024-01-17 12:16 | PC.NURSE ---
On 01/17/24, the student, Chasity García, provided care and completed [facility] documentation on this patient. I have reviewed the student's documentation and agree with the findings.
[2024-01-17] MEDS: INSULIN ASPART (*BKC) 100 UNITS/ML SUB-Q ×2 (12:51→20:17)
--- NOTE | 2024-01-17 15:08 | P.PNIM_ITS ---
Progress Note: A&P Assessment and Plan (1) Speech disturbance: Code(s): R47.9 - Unspecified speech disturbances Status: Acute Assessment and Plan: 01/17/2024: * patient intermittent speech impairment x5 days * head CT showing old infarcts involving the left frontal lobe, bilateral basal ganglia, and left cerebellum. * Carotid Doppler study showing less than 50% stenosis bilaterally. * MRI of the brain showing a few small old infarcts at the right Q date nucleus, bilateral frontal lobes, and bilateral cerebellar hemispheres, no acute intracranial process. * Neurology consulted, likely TIA from their perspective * continue neuro checks q.4 hours * continue cardiac monitoring * dysphasia noted on exam today (2) Facial paresthesia: Code(s): R20.2 - Paresthesia of skin Status: Acute Assessment and Plan: 01/17/2024: * reports right-sided face paresthesia on admission * denies today (3) Essential hypertension: Code(s): I10 - Essential (primary) hypertension Status: Chronic Assessment and Plan: 01/17/2024: * blood pressure ranging 110/55 to 135/69 * patient was continued on amlodipine and carvedilol (4) Insulin dependent type 2 diabetes mellitus: Code(s): E11.9 - Type 2 diabetes mellitus without complications; Z79.4 - skilled nursing (curr ent) use of insulin Status: Chronic Assessment and Plan: 01/17/2024: * blood sugars ranging 139-272 * a.c. and HS Accu-Cheks * moderate dose sliding scale insulin ordered * last hemoglobin A1c was 8.3 on 09/17/2023 * will recheck her A1c in the morning (5) Chronic kidney disease, stage 3b: Code(s): N18.32 - Chronic kidney disease, stage 3b Status: Chronic Assessment and Plan: 01/17/2024: * BUN 55, creatinine 3.10, EGFR 15 * baseline creatinine 2.1-2.7 * continue to hold nephrotoxic medication (6) Chronic obstructive pulmonary disease: Code(s): J44.9 - Chronic obstructive pulmonary disease, unspecified Status: Chronic Assessment and Plan: 01/17/2024: * uses auto PAP at night * currently on room air (7) Obstructive sleep apnea on CPAP: Code(s): G47.33 - Obstructive sleep apnea (adult) (pediatric); Z99.89 - Dependence on other enabling machines and devices Status: Chronic Assessment and Plan: see above (8) Paroxysmal atrial flutter: Code(s): I48.92 - Unspecified atrial flutter Status: Chronic Assessment and Plan: 01/17/2024: * continue amiodarone and Eliquis (9) Chronic anticoagulation: Code(s): Z79.01 - extermination supervisor (current) use of anticoagulants Status: Acute Assessment and Plan: 01/17/2024: * on Eliquis Time Spent With Patient Time with patient: 25 - 35 minutes Subjective Date/time seen: 01/17/24 15:08 Interval history: this is a 78-year-old female who presented to the hospital with intermittent speech problems for the past 5 days. Workup in the hospital included a head CT which showed old infarcts involving the left frontal lobe, bilateral basal ganglia and left cerebellum. Carotid Dopplers showing less than 50% stenosis bilaterally. Brain MRI showing a few small old infarcts at the right caudate nucleus, bilateral frontal lobes, and bilateral cerebellar hemispheres, no acute intracranial changes. Initial lab shown RBC of 3.10, hemoglobin 10.3, INR 1.5, BUN 55, creatinine 3.10, EGFR 15, magnesium 2.4, liver function normal, troponin negative. UA showing trace glucose, otherwise normal. EKG showin
--- NOTE | 2024-01-17 15:08 | PM.IMPN ---
Progress Note: A&P Assessment and Plan (1) Speech disturbance: Code(s): R47.9 - Unspecified speech disturbances Status: Acute Assessment and Plan: 01/17/2024: patient intermittent speech impairment x5 days head CT showing old infarcts involving the left frontal lobe, bilateral basal ganglia, and left cerebellum. Carotid Doppler study showing less than 50% stenosis bilaterally. MRI of the brain showing a few small old infarcts at the right Q date nucleus, bilateral frontal lobes, and bilateral cerebellar hemispheres, no acute intracranial process. Neurology consulted, likely TIA from their perspective continue neuro checks q.4 hours continue cardiac monitoring dysphasia noted on exam today (2) Facial paresthesia: Code(s): R20.2 - Paresthesia of skin Status: Acute Assessment and Plan: 01/17/2024: reports right-sided face paresthesia on admission denies today (3) Essential hypertension: Code(s): I10 - Essential (primary) hypertension Status: Chronic Assessment and Plan: 01/17/2024: blood pressure ranging 110/55 to 135/69 patient was continued on amlodipine and carvedilol (4) Insulin dependent type 2 diabetes mellitus: Code(s): E11.9 - Type 2 diabetes mellitus without complications; Z79.4 - MCFP (current) use of insulin Status: Chronic Assessment and Plan: 01/17/2024: blood sugars ranging 139-272 a.c. and HS Accu-Cheks moderate dose sliding scale insulin ordered last hemoglobin A1c was 8.3 on 09/17/2023 will recheck her A1c in the morning (5) Chronic kidney disease, stage 3b: Code(s): N18.32 - Chronic kidney disease, stage 3b Status: Chronic Assessment and Plan: 01/17/2024: BUN 55, creatinine 3.10, EGFR 15 baseline creatinine 2.1-2.7 continue to hold nephrotoxic medication (6) Chronic obstructive pulmonary disease: Code(s): J44.9 - Chronic obstructive pulmonary disease, unspecified Status: Chronic Assessment and Plan: 01/17/2024: uses auto PAP at night currently on room air (7) Obstructive sleep apnea on CPAP: Code(s): G47.33 - Obstructive sleep apnea (adult) (pediatric); Z99.89 - Dependence on other enabling machines and devices Status: Chronic Assessment and Plan: see above (8) Paroxysmal atrial flutter: Code(s): I48.92 - Unspecified atrial flutter Status: Chronic Assessment and Plan: 01/17/2024: continue amiodarone and Eliquis (9) Chronic anticoagulation: Code(s): Z79.01 - death claim clerk (current) use of anticoagulants Status: Acute Assessment and Plan: 01/17/2024: on Eliquis Time Spent With Patient Time with patient: 25 - 35 minutes Subjective Date/time seen: 01/17/24 15:08 Interval history: this is a 78-year-old female who presented to the hospital with intermittent speech problems for the past 5 days. Workup in the hospital included a head CT which showed old infarcts involving the left frontal lobe, bilateral basal ganglia and left cerebellum. Carotid Dopplers showing less than 50% stenosis bilaterally. Brain MRI showing a few small old infarcts at the right caudate nucleus, bilateral frontal lobes, and bilateral cerebellar hemispheres, no acute intracranial changes. Initial lab shown RBC of 3.10, hemoglobin 10.3, INR 1.5, BUN 55, creatinine 3.10, EGFR 15, magnesium 2.4, liver function normal, troponin negative. UA showing trace glucose, otherwise normal. EKG showing sinus rhythm with first-degree AV block, left bundle branch block, with a rate of 65, QTC 462. On examination today patient is alert oriented x3, lying in the bed. She does not have any dysphagia today. She denies any numbness to her face. She also denies any fever, chills, nausea, vomiting, diarrhea, abdominal pain, chest pain, shortness a breath, headache, lightheadedness, dizziness, vision changes. Neurolog
[2024-01-17 16:35] LABS: Glucose Point of Care 176 mg/dl (65-105)
[2024-01-17] MEDS: MELATONIN 5 MG TABLET PO (20:13)
[2024-01-17] MEDS: ATORVASTATIN 40 MG TABLET 80 MG PO (20:13)
[2024-01-17] MEDS: carvediloL 12.5 MG TABLET PO (20:13)
[2024-01-17 21:29] LABS: Glucose Point of Care 221 mg/dl (65-105)
[2024-01-18] VITALS (7 sets, daily range): BP systolic 112–127; BP diastolic 54–64; PULSE 58–70; RESP 16–18; TEMP 35.8–36; O2SAT 97
[2024-01-18] MEDS: ACETAMINOPHEN 500 MG TABLET PO ×2 (05:34→12:05)
[2024-01-18] MEDS: GABAPENTIN 300 MG CAPSULE PO ×2 (06:06→13:28)
[2024-01-18 08:24] LABS: Glucose Point of Care 146 mg/dl (65-105)
[2024-01-18] MEDS: ACETAMINOPHEN 325 MG TABLET 650 MG PO (08:42)
[2024-01-18] MEDS: DOCUSATE SODIUM 100 MG CAPSULE PO (08:43)
[2024-01-18] MEDS: carvediloL 12.5 MG TABLET PO (08:43)
[2024-01-18] MEDS: APIXABAN 5 MG TABLET PO (08:43)
[2024-01-18] MEDS: EZETIMIBE 10 MG TABLET PO (08:43)
[2024-01-18] MEDS: amLODIPine BESYLATE 5 MG TABLET PO (08:43)
[2024-01-18] MEDS: AMIODARONE HCL 200 MG TABLET PO (08:44)
[2024-01-18] MEDS: TAMSULOSIN HCL 0.4 MG CAPSULE PO (08:44)
[2024-01-18] MEDS: FAMOTIDINE 20 MG TABLET PO (08:44)
[2024-01-18] MEDS: allopurinoL 100 MG TABLET PO (08:44)
[2024-01-18] MEDS: ASPIRIN 81 MG ENTERIC TABLET PO (08:44)
[2024-01-18 09:18] LABS: Anion Gap 4 mmol/L (8-16); Blood Urea Nitrogen 46 mg/dL (7-17); Calcium 8.5 mg/dL (8.4-10.2); Carbon Dioxide 26 mmol/L (22-30); Chloride 108 mmol/L (98-107); Estimated CRCL calculation 18 ml/min; Estimated Glomerular Filt Rate 16; Glucose 154 mg/dL (65-110); Hematocrit 32.9 % (37.0-47.0); Hemoglobin 10.1 g/dL (12.0-15.0); Mean Corpuscular HGB Conc 30.7 g/dl (32-36); Mean Corpuscular Hemoglobin 33.2 pg (26-34); Mean Corpuscular Volume 108.2 fl (80-100); Mean Platelet Volume 9.7 fl (7.4-10.4); Platelet Count Result 249 k/mm3 (150-375); Potassium 4.4 mmol/L (3.4-5.0); Red Blood Count 3.04 M/mm3 (4.2-5.4); Red Cell Distribution Width 15.1 % (11.5-14.5); Sodium 138 mmol/L (137-145); White Blood Count 4.4 K/mm3 (4.5-10.0)
[2024-01-18 12:03] LABS: Glucose Point of Care 228 mg/dl (65-105)
[2024-01-18] MEDS: INSULIN ASPART (*BKC) 100 UNITS/ML SUB-Q (12:05)
--- NOTE | 2024-01-18 12:44 | ECG_ITS ---
Measurements Intervals [place] Rate: 66 P: -65 FL: 177 QRS: -53 QRSD: 162 T: 64 QT: 442 QTc: 466 Interpretive Statements SINUS RHYTHM WITH FIRST DEGREE AV BLOCK LEFT AXIS DEVIATION LEFT BUNDLE BRANCH BLOCK BASELINE ARTIFACT- I, II, III, AVR, AVL, AVF, V1 ABNORMAL ECG COMPARED TO ECG 01/16/2024 11:46:00 NO SIGNIFICANT CHANGES Electronically Signed On 01-18-2024 13:18:15 CDT by Chau Vega D.O.
--- NOTE | 2024-01-18 14:34 | PM.DS ---
DS: Admitting Diagnosis Discharge Date 01/18/24 Admitting Diagnosis impaired speech DS: Discharge Diagnosis Discharge Diagnosis (1) Speech disturbance: Code(s): R47.9 - Unspecified speech disturbances Status: Acute Assessment and Plan: head CT showing old infarcts involving the left frontal lobe, bilateral basal ganglia, and left cerebellum. Carotid Doppler study showing less than 50% stenosis bilaterally. MRI of the brain showing a few small old infarcts at the right Q date nucleus, bilateral frontal lobes, and bilateral cerebellar hemispheres, no acute intracranial process. Neurology consulted, likely TIA from their perspective (2) Facial paresthesia: Code(s): R20.2 - Paresthesia of skin Status: Acute Assessment and Plan: reports right-sided face paresthesia on admission no evidence on exam (3) Essential hypertension: Code(s): I10 - Essential (primary) hypertension Status: Chronic Assessment and Plan: continue on amlodipine and carvedilol (4) Insulin dependent type 2 diabetes mellitus: Code(s): E11.9 - Type 2 diabetes mellitus without complications; Z79.4 - oysterman (current) use of insulin Status: Chronic Assessment and Plan: A1c 8.0 (5) Chronic kidney disease, stage 3b: Code(s): N18.32 - Chronic kidney disease, stage 3b Status: Chronic (6) Chronic obstructive pulmonary disease: Code(s): J44.9 - Chronic obstructive pulmonary disease, unspecified Status: Chronic Assessment and Plan: auto PAP at night (7) Obstructive sleep apnea on CPAP: Code(s): G47.33 - Obstructive sleep apnea (adult) (pediatric); Z99.89 - Dependence on other enabling machines and devices Status: Chronic Assessment and Plan: see above (8) Paroxysmal atrial flutter: Code(s): I48.92 - Unspecified atrial flutter Status: Chronic Assessment and Plan: continue amiodarone and Eliquis (9) Chronic anticoagulation: Code(s): Z79.01 - oysterman (current) use of anticoagulants Status: Acute Assessment and Plan: on Eliquis DS: Summary Hospital Course Hospital Course: Patient is a 78-year-old female admitted with intermittent speech problems for 5 days. Workup in the hospital included a head CT which showed old infarcts involving the left frontal lobe, bilateral basal ganglia and left cerebellum. Carotid Dopplers showing less than 50% stenosis bilaterally. Brain MRI showing a few small old infarcts at the right caudate nucleus, bilateral frontal lobes, and bilateral cerebellar hemispheres, no acute intracranial changes. Initial lab shown RBC of 3.10, hemoglobin 10.3, INR 1.5, BUN 55, creatinine 3.10, EGFR 15, magnesium 2.4, liver function normal, troponin negative. UA showing trace glucose, otherwise normal. EKG showing sinus rhythm with first-degree AV block, left bundle branch block, with a rate of 65, QTC 462. Repeat EKG today was unchanged. She is established with cardiology. Patient is A&O x3 this morning. She does not have any dysphagia. Denies vision changes or AVILES. She denies any numbness to her face. Neurology believes her symptoms were results of TIA. She is already on statin, blood pressure medication and Eliquis. She is stable for d/c today and should f/u with her supervisor of officials, PCP. Home health ordered for d/c as she currently lived with her daughter. Status at Discharge Functional status at discharge: uses cane/walker Overall status at discharge: patient is back to baseline Time Spent with Patient Time attestation: Total time spent providing and/or coordinating discharge services: Exam Narrative: General: In no acute distress, well nourished Head: atraumatic, no encephalopathy Eyes: EOMI, PERRLA ENT: moist mucous membranes Neck: supple Cardiac: RRR, No murmur, gallops or friction rubs, peripheral pulses intact. Respiratory: Lungs clear to au
== END 2024-01-18 15:01 | disposition home or self-care (01) ==
LOC: ANHED 12:12 → ANH3MEDSUR 17:50
PROVIDERS: Nurse Practitioner; Physician Assistant; Admitting Provider Student in an Organized Health Care Education/Training Program; Emergency Provider Physician Assistant; PCP Family Medicine; Visit Provider General Practice
DX: R47.01 Aphasia (principal); R20.2 Paresthesia of skin; I13.0 Hypertensive heart and chronic kidney disease with heart failure and stage 1 through stage 4 chronic kidney disease, or unspecified chronic kidney disease; I50.32 Chronic diastolic (congestive) heart failure; E11.22 Type 2 diabetes mellitus with diabetic chronic kidney disease; N18.32 Chronic kidney disease, stage 3b; D63.1 Anemia in chronic kidney disease; J44.9 Chronic obstructive pulmonary disease, unspecified; F41.8 Other specified anxiety disorders; E11.42 Type 2 diabetes mellitus with diabetic polyneuropathy; R94.31 Abnormal electrocardiogram [ECG] [EKG]; I48.92 Unspecified atrial flutter; E78.5 Hyperlipidemia, unspecified; E55.9 Vitamin D deficiency, unspecified; K21.9 Gastro-esophageal reflux disease without esophagitis; G47.33 Obstructive sleep apnea (adult) (pediatric); Z99.89 Dependence on other enabling machines and devices; Z79.1 Long term (current) use of non-steroidal anti-inflammatories (NSAID); Z79.51 Long term (current) use of inhaled steroids; Z79.01 Long term (current) use of anticoagulants; Z79.891 Long term (current) use of opiate analgesic; Z79.84 Long term (current) use of oral hypoglycemic drugs; Z79.4 Long term (current) use of insulin; Z79.899 Other long term (current) drug therapy; Z82.49 Family history of ischemic heart disease and other diseases of the circulatory system; Z83.3 Family history of diabetes mellitus
CPT/HCPCS: 36415; 70450; 70551; 80048; 80053; 81001; 82948; 83036; 83735; 84484; 85025; 85027; 85610; 85730; 93005; 93880; 96360; 99285; A9270; G0378; J1815; J7040

== ENCOUNTER 2024-02-13 10:31 | Inpatient (IN) | payer MEDICARE, SELFPAY ==
[2024-02-13] VITALS (23 sets, daily range): BP systolic 95–123; BP diastolic 53–73; PULSE 67–80; RESP 13–21; TEMP 36.6; O2SAT 94–100; BMI 33.7
--- NOTE | ~2024-02-13 | XR_ITS ---
EXAMINATION: XR chest 2V DATE: 02/13/2024 12:25 INDICATION: Shortness of breath and cough. TECHNIQUE: Frontal and lateral views of the chest were obtained. COMPARISON: Chest 2 views 10/13/2023, chest CT 09/30/2023 FINDINGS: There are airspace opacities in the perihilar regions. There are small pleural effusions. N o pneumothorax. Cardiomegaly is noted. IMPRESSION: 1. Airspace opacities in the perihilar regions, consistent with mild pulmonary edema versus pneumonia . 2. Small pleural effusions. 3. Cardiomegaly. Reviewed, dictated and finalized at location A. IMPRESSION: 1. Airspace opacities in the perihilar regions, consistent with mild pulmonary edema versus pneumonia. 2. Small pleural effusions. 3. Cardiomegaly.
[2024-02-13 11:15] LABS: Basophils Percent Auto 0.6 % (0.2-1.2); Eosinophils Absolute Auto 0.1 K/mm3 (0-0.3); Eosinophils Percent Auto 1.6 % (0-4.4); Hematocrit 31.6 % (37.0-47.0); Immature Granulocyte Absolute 0.05 K/mm3 (0.00-0.031); Immature Granulocyte Percent A 0.8 % (0-0.5); Lymphocytes Percent Auto 9.3 % (18.3-44.2); Mean Corpuscular HGB Conc 31.6 g/dl (32-36); Mean Corpuscular Hemoglobin 33.8 pg (26-34); Mean Corpuscular Volume 106.8 fl (80-100); Mean Platelet Volume 9.4 fl (7.4-10.4); Monocytes Absolute Auto 0.3 K/mm3 (0.1-0.6); Monocytes Percent Auto 5.3 % (2.6-8.5); Neutrophils Absolute Auto 5.3 K/mm3 (1.3-6.7); Neutrophils Percent Auto 82.4 % (45.5-73.1); Platelet Count Result 253 k/mm3 (150-375); Red Blood Count 2.96 M/mm3 (4.2-5.4); Red Cell Distribution Width 15.6 % (11.5-14.5); White Blood Count 6.4 K/mm3 (4.5-10.0)
[2024-02-13 11:28] LABS: Alanine Aminotransferase 16 U/L (6-35); Albumin Level 3.4 g/dL (3.5-5.1); Alkaline Phosphatase 77 U/L (38-126); Anion Gap 6 mmol/L (4-12); Aspartate Amino Transferase 24 U/L (14-36); Bilirubin,Total 0.5 mg/dL (0.2-1.3); Blood Urea Nitrogen 49 mg/dL (7-17); Calcium 8.6 mg/dL (8.4-10.2); Carbon Dioxide 24 mmol/L (22-30); Chloride 107 mmol/L (98-107); Estimated CRCL calculation 17 ml/min; Estimated Glomerular Filt Rate 15; Glucose 214 mg/dL (65-110); Potassium 4.4 mmol/L (3.4-5.0); Sodium 137 mmol/L (137-145)
[2024-02-13 11:37] LABS: Anisocytosis 1+; Platelet Estimate Adequate (Adequate); Schistocytes None Seen
[2024-02-13 11:50] LABS: Influenza A QL RT-PCR Negative (Negative); Influenza B QL RT-PCR Negative (Negative); RSV RNA, RT-PCR Negative (Negative); SARS-CoV-2 RNA PCR Negative (Negative)
--- NOTE | 2024-02-13 12:52 | ED.SOB ---
HPI - SOB/Dyspnea General Chief Complaint: Shortness of Breath/Dyspnea Stated Complaint: shortness of breath, cough Time Seen by Provider: 02/13/24 12:51 Source: patient History of Present Illness HPI Narrative: 78 years old white female came to the emergency room by ambulance from home, lives with her daughter complaining of productive cough over the last 1 and have weeks. History of diabetes, hypertension, hyperlipidemia, COPD not on oxygen, CVA and MRI, atrial fibrillation on Eliquis and aspirin. Patient does not smoke. Related Data Home Medications Medication Instructions Recorded Confirmed gabapentin 300 mg capsule 300 mg PO TID 12/07/19 01/16/24 ergocalciferol (vitamin D2) 1,250 1,250 mcg PO WEEKLY 02/22/21 01/16/24 mcg (50,000 unit) capsule docusate sodium 100 mg capsule 1 cap PO DAILY 05/04/22 01/16/24 dicyclomine 10 mg capsule 10 mg PO TID PRN Abdominal 03/27/23 01/16/24 Discomfort allopurinol 100 mg tablet 100 mg PO DAILY 09/15/23 01/16/24 atorvastatin 80 mg tablet 80 mg PO HS 09/15/23 01/16/24 ezetimibe 10 mg tablet 10 mg PO DAILY 09/15/23 01/16/24 fenofibrate 160 mg tablet 160 mg PO DAILY 09/15/23 01/16/24 hydrocodone 10 mg-acetaminophen 10 tablet PO Q8H PRN Pain (Scale 09/15/23 01/16/24 325 mg tablet Score 4-6) insulin lispro 100 unit/mL See Rx Instructions .Route 09/15/23 01/16/24 subcutaneous pen (Humalog KwikPen .COMPLEX PRN Hyperglycemia (U-100) Insulin) melatonin 5 mg tablet 5 mg PO HS 09/15/23 01/16/24 sitagliptin phosphate 25 mg tablet 25 mg PO DAILY 09/15/23 01/16/24 (Januvia) acetaminophen 500 mg capsule 500 mg PO Q6H 09/26/23 01/16/24 amiodarone 200 mg tablet 200 mg PO DAILY 01/16/24 01/16/24 apixaban 5 mg tablet (Eliquis) 5 mg PO Q12H 01/16/24 01/16/24 Allergies Allergy/AdvReac Type Severity Reaction Status Date / Time ceftriaxone Allergy Unknown Anaphylaxis Verified 02/13/24 14:35 clindamycin Allergy Unknown Anaphylaxis Verified 02/13/24 14:35 morphine Allergy Unknown Vomiting Verified 02/13/24 14:35 nitroglycerin Allergy Unknown Headache Verified 02/13/24 14:35 Penicillins Allergy Unknown Hives Verified 02/13/24 14:35 Review of Systems Review of Systems: All systems reviewed & are unremarkable except as noted in HPI and below PMFSH Past Medical History Medical History Anemia of chronic disease Cerebrovascular accident 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 Cholelithiasis Chronic anticoagulation Congestive heart failure History of reduced ejection fraction with improvement in EF to 55% on most recent echo. Diastolic dysfunction also noted. 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 Depression with anxiety Diabetic peripheral neuropathy Dyslipidemia Essential hypertension Fibromyalgia Gastroesophageal reflux disease History of peptic ulcer Hypersomnia Insulin dependent type 2 diabetes mellitus Obstructive sleep apnea on CPAP Osteoarthritis Paroxysmal atrial flutter Stage III chronic kidney disease Baseline creatinine ranges between 1.3 and 1.60. Vitamin D deficiency Surgical History Surgical History History of appendectomy History of cardiac catheterization (07/2013) Normal coronaries although anomalous left coronary artery arising from the right ostium was noted. History of hysterectomy (1979) History of left breast biopsy Benign pathology. Family History Family History Father Malignant neoplasm of prostate Heart disease Mother Esophageal cancer Sibling Diabetes mellitus Daughter Alcoholism Social History Social History Social History: Surrogate medical decision maker: christos Ramires
[2024-02-13 13:55] LABS: Base Excess ABG -3.2 mEq/l (+/-2.0); Fractional Inspired Oxygen 21 %; Oxygen Content ABG 14.5 %vol (16.0-22.0); Oxygen Saturation ABG 92.9 % (95.0-100.0); Oxyhemoglobin 91.2 % THb (90.0-100.0); PCO2 ABG 40.1 mmHg (35.0-45.0); PO2 ABG 67.7 mmHg (80.0-100.0); PO2 FiO2 Ratio Arterial Blood 3.22 %; Total Hemoglobin 11.3 g/dL (12.0-18.0); pH ABG 7.358 (7.350-7.450)
[2024-02-13 13:56] LABS: Device ROOM AIR; Site Drawn LEFT BRACHIAL
[2024-02-13 14:45] LABS: INR 1.6; Prothrombin Time 20.4 Seconds (11.1-14.7)
[2024-02-13 14:48] LABS: Lactic Acid Reflex 0.7 mmol/L (0.7-2.0)
[2024-02-13] MEDS: IPRATROPIUM 0.5 MG/ALBUTEROL SULFATE 2.5 MG AMPUL.NEB 3 ML INHALATION ×2 (14:48→19:49)
[2024-02-13 15:00] LABS: NT Pro B Type Natriuretic Pept 2670 pg/mL (19.9-100)
[2024-02-13] MEDS: levoFLOXacin 750 MG/D5W 150 ML 750 MG/150 ML BAG 100 MG IVPB (15:01)
[2024-02-13 15:03] LABS: CRP 24.2 mg/dL (<1.0)
[2024-02-13] MEDS: SODIUM CHLORIDE 0.9% IV 1,000 ML 100 ML IV CONT (18:00)
--- NOTE | 2024-02-13 18:03 | PC.NURSE ---
This patient, Sarah Alvarado, was admitted to Medical Room 340-01. Patient/family oriented to hospital policies and general routines including ID bracelet, bed and alarms, visiting hours, pain management, procedures, bathroom and other care routines, personal items, smoking policy, room service/diet, and visiting hours. Information on how to activate the Rapid Response Team has been discussed. Patient/Family are encouraged to report perceived risks to care and to ask questions if they do not understand what they are told or what they should do.
--- NOTE | 2024-02-13 18:15 | PC.NURSE ---
Patient states she does not know what medications she takes. RN tried to call patient's daughter Mikki but the call went straight to [employer]. RN will reconcile medications to the best of her ability by using the external medication record until daughter Mikki can be reachable.
--- NOTE | 2024-02-13 18:44 | PC.NURSE ---
RN pulled up patient's previous visit in January to [facility] and confirmed her medications based off that admission/discharge.
--- NOTE | 2024-02-13 19:06 | ECG_ITS ---
Measurements Intervals [place] Rate: 70 P: 59 AR: 140 QRS: 64 QRSD: 80 T: 68 QT: 361 AVG RR 847 QTc: 382 QTcB 392 QTcF 381 Interpretive Statements SINUS RHYTHM NORMAL ECG SEE SCANNED COPY FOR SIGNATURE MTDD
--- NOTE | 2024-02-13 19:08 | PM.IMHP ---
H&P: HPI History of Present Illness Date/Time: 02/13/24 20:30 Chief Complaint: Cough and shortness of breath. Narrative: This is a pleasant 78-year-old female?with multiple medical problems including transient ischemic attack, cerebrovascular accident, congestive heart failure, hypertension, dyslipidemia, diabetes, chronic kidney disease, anemia, sleep apnea, and other comorbidities who presented to the emergency department for evaluation of cough and shortness of breath. The patient provides the following history. She [place] the aquarium last week and a few of days later she developed URI symptoms to include a mild sore throat, cough which has been productive of thick green sputum, and increasing shortness of breath. Rescue inhaler and [id number] cold and flu medications have not given her with much relief. She denies fever, chills, sweats, chest pain, pleuritic pain, palpitations, nausea, vomiting, and diarrhea. In the ED: She was afebrile on arrival with stable vital signs. SpO2 has been mid 90s since arrival she was placed 2 L as her blood gas showed a PO2 of 677. Labs were significant for WBC count of 6.4, hemoglobin 10.0 BUN 49, creatinine 3.00, lactic acid 0.7, CRP 24.2 proBNP 2670. She tested negative for influenza, RSV, and COVID. Chest x-ray showed airspace opacities the perihilar regions consistent with mild pulmonary edema versus pneumonia, small pleural effusions, and cardiomegaly. She received a dose of IV levofloxacin and a nebulizer treatment is being admitted in this setting for further care. Review of Systems Review of Systems: 12 systems were reviewed and are negative except for as per HPI. [facility] Past Medical History Medical History (Updated 02/13/24 @ 19:30 by Rubi Crisostomo PA-C) Anemia of chronic disease Cerebrovascular accident 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 Cholelithiasis Chronic anticoagulation Congestive heart failure History of reduced ejection fraction with improvement in EF to 55% on most recent echo. Diastolic dysfunction also noted. 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 Depression with anxiety Diabetic peripheral neuropathy Dyslipidemia Essential hypertension Fibromyalgia Gastroesophageal reflux disease History of peptic ulcer Hypersomnia Insulin dependent type 2 diabetes mellitus Obstructive sleep apnea on CPAP Osteoarthritis Paroxysmal atrial flutter Stage III chronic kidney disease Baseline creatinine ranges between 1.3 and 1.60. Vitamin D deficiency Surgical History Surgical History History of appendectomy History of cardiac catheterization (07/2013) Normal coronaries although anomalous left coronary artery arising from the right ostium was noted. History of hysterectomy (1979) History of left breast biopsy Benign pathology. Family History Family History Father Malignant neoplasm of prostate Heart disease Mother Esophageal cancer Sibling Diabetes mellitus Daughter Alcoholism Social History Social History (Updated 02/13/24 @ 19:09 by Rubi Crisostomo PA-C) Social History: Surrogate medical decision maker: Mikki Herrera, daughter. Code status: Full Code. Smoking status: Never smoker Second hand tobacco smoke exposure: Yes Alcohol intake: unknown Drinks per week: 0 Alcohol use details: Rare alcohol use in moderation. Substance use: never Substance use type: does not use Do You Feel Safe in your Home?: Yes Lack of Transportation: No Lack of Food: Never True Current Housing: I Have Housing Concerned About Future Housing: No Difficulty Paying Gas/Electric Bills: No Difficulty Paying for Meds: No Currently Unemployed: No Education: Decl
[2024-02-13 21:05] LABS: Glucose Point of Care 205 mg/dl (65-105)
[2024-02-13] MEDS: BENZOCAINE/MENTHOL (*BKC) 18 EA LOZENGE 1 LOZENGE PO (21:05)
[2024-02-13] MEDS: HYDROcodone/acetaminophen (*CRX) 10-325 MG TABLET 1 TAB PO (21:06)
[2024-02-13] MEDS: GABAPENTIN 300 MG CAPSULE PO (21:06)
[2024-02-13] MEDS: MELATONIN 5 MG TABLET PO (21:06)
[2024-02-13] MEDS: INSULIN ASPART (*BKC) 100 UNITS/ML SUB-Q (21:06)
[2024-02-13] MEDS: ATORVASTATIN 40 MG TABLET 80 MG PO (21:07)
[2024-02-13] MEDS: APIXABAN 5 MG TABLET PO (21:07)
[2024-02-13] MEDS: FAMOTIDINE 20 MG TABLET PO (21:07)
[2024-02-13] MEDS: guaiFENesin 12 HR 600 MG TABCR PO (21:07)
[2024-02-14] VITALS (17 sets, daily range): BP systolic 96–126; BP diastolic 47–69; PULSE 75–89; RESP 14–20; TEMP 36.1–37.2; O2SAT 93–97
[2024-02-14] MEDS: IPRATROPIUM 0.5 MG/ALBUTEROL SULFATE 2.5 MG AMPUL.NEB 3 ML INHALATION ×4 (02:41→19:15)
[2024-02-14] MEDS: HYDROcodone/acetaminophen (*CRX) 10-325 MG TABLET 1 TAB PO ×3 (06:10→22:28)
[2024-02-14] MEDS: BENZOCAINE/MENTHOL (*BKC) 18 EA LOZENGE 1 LOZENGE PO (06:10)
[2024-02-14 06:13] LABS: Hematocrit 28.4 % (37.0-47.0); Hemoglobin 8.6 g/dL (12.0-15.0); Mean Corpuscular HGB Conc 30.3 g/dl (32-36); Mean Corpuscular Hemoglobin 32.8 pg (26-34); Mean Corpuscular Volume 108.4 fl (80-100); Mean Platelet Volume 9.7 fl (7.4-10.4); Platelet Count Result 243 k/mm3 (150-375); Red Blood Count 2.62 M/mm3 (4.2-5.4); Red Cell Distribution Width 15.5 % (11.5-14.5); White Blood Count 6.1 K/mm3 (4.5-10.0)
[2024-02-14 06:43] LABS: Anion Gap 4 mmol/L (4-12); Blood Urea Nitrogen 49 mg/dL (7-17); Carbon Dioxide 24 mmol/L (22-30); Chloride 108 mmol/L (98-107); Estimated CRCL calculation 17 ml/min; Estimated Glomerular Filt Rate 15; Glucose 204 mg/dL (65-110); Magnesium 2.3 mg/dL (1.6-2.3); Potassium 4.5 mmol/L (3.4-5.0); Sodium 136 mmol/L (137-145)
[2024-02-14 07:04] LABS: Calcium 8.3 mg/dL (8.4-10.2)
[2024-02-14 08:33] LABS: Glucose Point of Care 136 mg/dl (65-105)
[2024-02-14] MEDS: ASPIRIN 81 MG ENTERIC TABLET PO (08:38)
[2024-02-14] MEDS: allopurinoL 100 MG TABLET PO (08:38)
[2024-02-14] MEDS: AMIODARONE HCL 200 MG TABLET PO (08:38)
[2024-02-14] MEDS: amLODIPine BESYLATE 5 MG TABLET PO (08:38)
[2024-02-14] MEDS: guaiFENesin 12 HR 600 MG TABCR PO ×2 (08:38→20:10)
[2024-02-14] MEDS: DOCUSATE SODIUM 100 MG CAPSULE PO (08:38)
[2024-02-14] MEDS: GABAPENTIN 300 MG CAPSULE PO ×3 (08:38→17:24)
[2024-02-14] MEDS: TAMSULOSIN HCL 0.4 MG CAPSULE PO (08:39)
[2024-02-14] MEDS: FAMOTIDINE 20 MG TABLET PO ×2 (08:39→20:09)
[2024-02-14] MEDS: EZETIMIBE 10 MG TABLET PO (08:39)
[2024-02-14] MEDS: APIXABAN 5 MG TABLET PO ×2 (08:39→20:10)
[2024-02-14] MEDS: ACETAMINOPHEN 325 MG TABLET 650 MG PO ×2 (12:05→20:08)
[2024-02-14 12:09] LABS: Glucose Point of Care 219 mg/dl (65-105)
[2024-02-14] MEDS: INSULIN ASPART (*BKC) 100 UNITS/ML SUB-Q ×2 (12:10→20:54)
--- NOTE | 2024-02-14 13:13 | P.PNIM_ITS ---
Progress Note: A&P Assessment and Plan (1) Pneumonia: Code(s): J18.9 - Pneumonia, unspecified organism Status: Acute Assessment and Plan: 02/14/2024: * Chest x-ray showing pneumonia * Patient started on Vancomycin and Levaquin * Continue with DuoNebs * Patient is currently on room air * Continue guaifenesin * Urine strep, Urine Legionella, and Mycoplasma are pending * Sputum culture ordered * Patient states she has had frequent bouts of pneumonia this year, she is followed by Dr. Adorno * We will go ahead and consult pulmonology as a courtesy and for additional support (2) Chronic obstructive pulmonary disease: Code(s): J44.9 - Chronic obstructive pulmonary disease, unspecified Status: Chronic Assessment and Plan: Of note see above plan of care (3) Insulin dependent type 2 diabetes mellitus: Code(s): E11.9 - Type 2 diabetes mellitus without complications; Z79.4 - snf (current) use of insulin Status: Chronic Assessment and Plan: 02/14/2024: * Blood sugars ranging 204-219 * Hemoglobin A1c on 01/18/2024 was 8.0 * Hypoglycemic protocol in place * Accu-Cheks AC and HS * Moderate dose sliding scale insulin ordered * Humalog KwikPen on hold (4) Chronic kidney disease, stage IV (severe): Code(s): N18.4 - Chronic kidney disease, stage 4 (severe) Status: Chronic Assessment and Plan: 02/14/2024: * BUN 49, creatinine 3.0 * Baseline appears to be 2.4-2.8 * EGFR 15 * Continue to trend labs (5) Chronic anticoagulation: Code(s): Z79.01 - technician terminal and repeater (current) use of anticoagulants Status: Acute Assessment and Plan: 02/14/2024: * Continue Eliquis (6) Anemia of chronic disease: Code(s): D63.8 - Anemia in other chronic diseases classified elsewhere Status: Acute Assessment and Plan: 02/14/2024: * Hemoglobin 8.6 * Continue to trend (7) Paroxysmal atrial flutter: Code(s): I48.92 - Unspecified atrial flutter Status: Chronic Assessment and Plan: 02/14/2024: * Continue Eliquis * Continue amiodarone (8) Essential hypertension: Code(s): I10 - Essential (primary) hypertension Status: Chronic Assessment and Plan: 02/14/2024: * Blood pressures ranging 107/62 to 126/60 * Continue Norvasc 5 mg daily Time Spent With Patient Time with patient: 25 - 35 minutes Subjective Date/time seen: 02/14/24 13:13 Interval history: This is a 78-year-old female who presented to the hospital on 02/13/2024 with complaints of cough and shortness of breath. Workup in the hospital included a chest x-ray which shown airspace opacities in the perihilar regions consistent with mild pulmonary edema versus pneumonia, small pleural effusion. Initial labs showed a white blood cell count of 6.4, hemoglobin 10.0, INR 1.6, BUN 49, creatinine 3.0, EGFR 15, C RP 24.2, proBNP 2670 mild lactic acid 0.7. ABG showing a low PO2 of 67.7. Blood cultures were obtained and showing no growth on preliminary read. She was given 1 L normal saline, DuoNeb x2, [place], vancomycin and Levaquin in the ED. on examination today patient is alert and oriented x4, lying in the. She denies any fever, chills, nausea, vomiting, diarrhea, abdominal pain, chest pain. She endorses the productive cough with thick sputum and shortness of breath. She is currently on room air and does not appear to be in any acute distress at this time. She states that she has had pneumonia 3 times this year and follows with Dr. Adorno. We will go ahead and get them involved for ad
--- NOTE | 2024-02-14 13:13 | PM.IMPN ---
Progress Note: A&P Assessment and Plan (1) Pneumonia: Code(s): J18.9 - Pneumonia, unspecified organism Status: Acute Assessment and Plan: 02/14/2024: Chest x-ray showing pneumonia Patient started on Vancomycin and Levaquin Continue with DuoNebs Patient is currently on room air Continue guaifenesin Urine strep, Urine Legionella, and Mycoplasma are pending Sputum culture ordered Patient states she has had frequent bouts of pneumonia this year, she is followed by Dr. Adorno We will go ahead and consult pulmonology as a courtesy and for additional support (2) Chronic obstructive pulmonary disease: Code(s): J44.9 - Chronic obstructive pulmonary disease, unspecified Status: Chronic Assessment and Plan: Of note see above plan of care (3) Insulin dependent type 2 diabetes mellitus: Code(s): E11.9 - Type 2 diabetes mellitus without complications; Z79.4 - retirement (current) use of insulin Status: Chronic Assessment and Plan: 02/14/2024: Blood sugars ranging 204-219 Hemoglobin A1c on 01/18/2024 was 8.[address] Accu-Cheks AC and HS Moderate dose sliding scale insulin ordered Humalog KwikPen on hold (4) Chronic kidney disease, stage IV (severe): Code(s): N18.4 - Chronic kidney disease, stage 4 (severe) Status: Chronic Assessment and Plan: 02/14/2024: BUN 49, creatinine 3.0 Baseline appears to be 2.4-2.8 EGFR 15 Continue to trend labs (5) Chronic anticoagulation: Code(s): Z79.01 - emt intermediate (current) use of anticoagulants Status: Acute Assessment and Plan: 02/14/2024: Continue Eliquis (6) Anemia of chronic disease: Code(s): D63.8 - Anemia in other chronic diseases classified elsewhere Status: Acute Assessment and Plan: 02/14/2024: Hemoglobin 8.6 Continue to trend (7) Paroxysmal atrial flutter: Code(s): I48.92 - Unspecified atrial flutter Status: Chronic Assessment and Plan: 02/14/2024: Continue Eliquis Continue amiodarone (8) Essential hypertension: Code(s): I10 - Essential (primary) hypertension Status: Chronic Assessment and Plan: 02/14/2024: Blood pressures ranging 107/62 to 126/60 Continue Norvasc 5 mg daily Time Spent With Patient Time with patient: 25 - 35 minutes Subjective Date/time seen: 02/14/24 13:13 Interval history: This is a 78-year-old female who presented to the hospital on 02/13/2024 with complaints of cough and shortness of breath. Workup in the hospital included a chest x-ray which shown airspace opacities in the perihilar regions consistent with mild pulmonary edema versus pneumonia, small pleural effusion. Initial labs showed a white blood cell count of 6.4, hemoglobin 10.0, INR 1.6, BUN 49, creatinine 3.0, EGFR 15, C RP 24.2, proBNP 2670 mild lactic acid 0.7. ABG showing a low PO2 of 67.7. Blood cultures were obtained and showing no growth on preliminary read. She was given 1 L normal saline, DuoNeb x2, [place], vancomycin and Levaquin in the ED. on examination today patient is alert and oriented x4, lying in the. She denies any fever, chills, nausea, vomiting, diarrhea, abdominal pain, chest pain. She endorses the productive cough with thick sputum and shortness of breath. She is currently on room air and does not appear to be in any acute distress at this time. She states that she has had pneumonia 3 times this year and follows with Dr. Adorno. We will go ahead and get them involved for additional support. Patient states that she has received all of her vaccines including some COVID, influenza, RSV, pneumonia. Urine strep, urine Legionella, and mycoplasma are all pending. Review of Systems Review of Systems: All systems reviewed & are unremarkable except as noted in HPI and below Constitutional: Constitutional: Reports as per HPI and Reports no additional constitutional complaints Eyes: E
[2024-02-14 17:12] LABS: Glucose Point of Care 159 mg/dl (65-105)
[2024-02-14] MEDS: MELATONIN 5 MG TABLET PO (20:09)
[2024-02-14] MEDS: ATORVASTATIN 40 MG TABLET 80 MG PO (20:10)
[2024-02-14 20:54] LABS: Glucose Point of Care 205 mg/dl (65-105)
[2024-02-15] VITALS (20 sets, daily range): BP systolic 109–122; BP diastolic 52–75; PULSE 74–95; RESP 16–18; TEMP 36.5–36.9; O2SAT 95–100
--- NOTE | 2024-02-15 | ECHO_ITS ---
Patient Info Name: Sarah Alvarado Age: 78 years : 1945 Gender: Female Ht: 66 in Wt: 217 lbs BSA: 2.18 m2 HR: 78 bpm BP: 109 / 63 mmHg Technical Quality: Fair Exam Date: 02/15/2024 4:17 PM Exam Location: Echo Lab Exam Room: 340 Patient Status: Inpatient Admit Date: 02/15/2024 Staff Ordering Physician: Maria C Hammer APRN Refrigeration Lead: Annette Post RDCS Attending Provider: Orin Garcia DO Referring Physician: Jaquelin ASTORGA; Exam Type: CA echo doppler color flow Study Info Indications - chf sob Complete two-dimensional, color flow and Doppler transthoracic echocardiogram is performed. Summary 1. Complete two-dimensional, color flow and Doppler transthoracic echocardiogram is performed. 2. Left ventricular chamber dimension is normal. 3. Ventricular septum is sigmoid shaped. No resting LVOT obstruction. 4. There is moderately increased left ventricular wall thickness. 5. Left ventricular systolic function is normal, estimated at 60-65%. 6. The left ventricular diastolic function is grade I diastolic dysfunction. 7. E/e' 19 is elevated. 8. Right ventricular chamber dimension is moderately enlarged. 9. Left atrial chamber dimension is mildly enlarged. 10. Right atrial chamber dimension is mildly enlarged. 11. There is mild aortic valve sclerosis. 12. The mitral valve has moderately calcified leaflets and moderately calcified annulus. 13. There is mild tricuspid valve regurgitation. 14. Mild pulmonary hypertension, estimated pulmonary arterial systolic pressure is 42 mmHg. 15. There is mild pulmonic regurgitation. Left Ventricle E/e' 19 is elevated. Ventricular septum is sigmoid shaped. No resting LVOT obstruction. Left ventricular chamber dimension is normal. Left ventricular systolic function is normal, estimated at 60-65%. There is moderately increased left ventricular wall thickness. The left ventricular diastolic function is grade I diastolic dysfunction. Right Ventricle Right ventricular chamber dimension is moderately enlarged. Right ventricular systolic function is normal. Left Atria Left atrial chamber dimension is mildly enlarged. Right Atria Right atrial chamber dimension is mildly enlarged. Aortic Valve The aortic valve is trileaflet. There is mild aortic valve sclerosis. There is no aortic valve stenosis. There is no aortic valve regurgitation. Pulmonic Valve There is mild pulmonic regurgitation. Mitral Valve The mitral valve has moderately calcified leaflets and moderately calcified annulus. There is no mitral valve stenosis. There is no mitral valve regurgitation. Tricuspid Valve There is mild tricuspid valve regurgitation. Mild pulmonary hypertension, estimated pulmonary arterial systolic pressure is 42 mmHg. Pericardium/Pleural There is no pericardial effusion. Inferior Vena Cava Normal inferior vena cava with >50% collapse upon inspiration consistent with normal right atrial pressure, 5 mmHg. Aorta The aortic root size at the sinus of Valsalva is normal. Left Ventricular Outflow Tract Name Value Normal LVOT 2D LVOT Diameter 2.1 cm LVOT Doppler LVOT Peak Velocity 102 cm/s LVOT Peak Gradient
[2024-02-15] MEDS: IPRATROPIUM 0.5 MG/ALBUTEROL SULFATE 2.5 MG AMPUL.NEB 3 ML INHALATION ×4 (03:00→19:36)
[2024-02-15] MEDS: HYDROcodone/acetaminophen (*CRX) 10-325 MG TABLET 1 TAB PO ×3 (06:13→23:15)
[2024-02-15 08:20] LABS: Glucose Point of Care 169 mg/dl (65-105)
[2024-02-15] MEDS: GABAPENTIN 300 MG CAPSULE PO ×3 (08:21→16:57)
[2024-02-15] MEDS: TAMSULOSIN HCL 0.4 MG CAPSULE PO (08:21)
[2024-02-15] MEDS: FENOFIBRATE 160 MG TABLET PO (08:21)
[2024-02-15] MEDS: AMIODARONE HCL 200 MG TABLET PO (08:21)
[2024-02-15] MEDS: guaiFENesin 12 HR 600 MG TABCR PO ×2 (08:21→20:50)
[2024-02-15] MEDS: EZETIMIBE 10 MG TABLET PO (08:21)
[2024-02-15] MEDS: DOCUSATE SODIUM 100 MG CAPSULE PO (08:21)
[2024-02-15] MEDS: ASPIRIN 81 MG ENTERIC TABLET PO (08:21)
[2024-02-15] MEDS: allopurinoL 100 MG TABLET PO (08:21)
[2024-02-15] MEDS: amLODIPine BESYLATE 5 MG TABLET PO (08:21)
[2024-02-15] MEDS: APIXABAN 5 MG TABLET PO ×2 (08:22→20:50)
[2024-02-15] MEDS: FAMOTIDINE 20 MG TABLET PO ×2 (08:22→20:50)
[2024-02-15] MEDS: levoFLOXacin 500 MG/D5W 100 ML 500 MG/100 ML BAG 100 MG IVPB (08:37)
[2024-02-15] MEDS: ACETAMINOPHEN 325 MG TABLET 650 MG PO ×2 (11:27→20:49)
[2024-02-15 11:50] LABS: Glucose Point of Care 235 mg/dl (65-105)
[2024-02-15] MEDS: INSULIN ASPART (*BKC) 100 UNITS/ML SUB-Q ×2 (12:14→20:56)
--- NOTE | 2024-02-15 13:31 | P.PNIM_ITS ---
Progress Note: A&P Assessment and Plan (1) Pneumonia: Code(s): J18.9 - Pneumonia, unspecified organism Status: Acute Assessment and Plan: 02/14/2024: * Chest x-ray showing pneumonia * Patient started on Vancomycin and Levaquin * Continue with DuoNebs * Patient is currently on room air * Continue guaifenesin * Urine strep, Urine Legionella, and Mycoplasma are pending * Sputum culture ordered * Patient states she has had frequent bouts of pneumonia this year, she is followed by Dr. Adorno * We will go ahead and consult pulmonology as a courtesy and for additional support 02/15/24: * Continue Levaquin * Sputum culture pending * Blood cultures showing no growth to date on preliminary read. 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 Status: Chronic Assessment and Plan: 02/14/2024: * Blood sugars ranging 204-219 * Hemoglobin A1c on 01/18/2024 was 8.0 * Hypoglycemic protocol in place * Accu-Cheks AC and HS * Moderate dose sliding scale insulin ordered * Humalog KwikPen on hold 02/15/24: * Blood glucose is ranging 159-235 * No change to current treatment plan (4) Chronic kidney disease, stage IV (severe): Code(s): N18.4 - Chronic kidney disease, stage 4 (severe) Status: Chronic Assessment and Plan: 02/14/2024: * BUN 49, creatinine 3.0 * Baseline appears to be 2.4-2.8 * EGFR 15 * Continue to trend labs 02/15/24: * No change (5) Chronic anticoagulation: Code(s): Z79.01 - terminal worker (current) use of anticoagulants Status: Acute Assessment and Plan: 02/14/2024: * Continue Eliquis 02/15/24: * No change to current treatment plan (6) Anemia of chronic disease: Code(s): D63.8 - Anemia in other chronic diseases classified elsewhere Status: Acute Assessment and Plan: 02/14/2024: * Hemoglobin 8.6 * Continue to trend 02/15/24: * Hemoglobin today 9.3 * Continue to trend (7) Paroxysmal atrial flutter: Code(s): I48.92 - Unspecified atrial flutter Status: Chronic Assessment and Plan: 02/14/2024: * Continue Eliquis * Continue amiodarone 02/15/24: * No change to current treatment plan (8) Essential hypertension: Code(s): I10 - Essential (primary) hypertension Status: Chronic Assessment and Plan: 02/14/2024: * Blood pressures ranging 107/62 to 126/60 * Continue Norvasc 5 mg daily 02/15/24: * No change to current treatment plan Time Spent With Patient Time with patient: 25 - 35 minutes Subjective Date/time seen: 02/15/24 13:31 Interval history: 02/14/24: This is a 78-year-old female who presented to the hospital on 02/13/2024 with complaints of cough and shortness of breath. Workup in the hospital included a chest x-ray which shown airspace opacities in the perihilar regions consistent with mild pulmonary edema versus pneumonia, small pleural effusion. Initial labs showed a white blood cell count of 6.4, hemoglobin 10.0, INR 1.6, BU
--- NOTE | 2024-02-15 13:31 | PM.IMPN ---
Progress Note: A&P Assessment and Plan (1) Pneumonia: Code(s): J18.9 - Pneumonia, unspecified organism Status: Acute Assessment and Plan: 02/14/2024: Chest x-ray showing pneumonia Patient started on Vancomycin and Levaquin Continue with DuoNebs Patient is currently on room air Continue guaifenesin Urine strep, Urine Legionella, and Mycoplasma are pending Sputum culture ordered Patient states she has had frequent bouts of pneumonia this year, she is followed by Dr. Adorno We will go ahead and consult pulmonology as a courtesy and for additional support 02/15/24: Continue Levaquin Sputum culture pending Blood cultures showing no growth to date on preliminary read. Pulmonology board Urine strep, urine Legionella, and mycoplasma are still pending We will go ahead and start Claritin and Flonase today No change to current treatment plan (2) Chronic obstructive pulmonary disease: Code(s): J44.9 - Chronic obstructive pulmonary disease, unspecified Status: Chronic Assessment and Plan: Of note see above plan of care (3) Insulin dependent type 2 diabetes mellitus: Code(s): E11.9 - Type 2 diabetes mellitus without complications; Z79.4 - custodial (current) use of insulin Status: Chronic Assessment and Plan: 02/14/2024: Blood sugars ranging 204-219 Hemoglobin A1c on 01/18/2024 was 8.[address] Accu-Cheks AC and HS Moderate dose sliding scale insulin ordered Humalog KwikPen on hold 02/15/24: Blood glucose is ranging 159-235 No change to current treatment plan (4) Chronic kidney disease, stage IV (severe): Code(s): N18.4 - Chronic kidney disease, stage 4 (severe) Status: Chronic Assessment and Plan: 02/14/2024: BUN 49, creatinine 3.0 Baseline appears to be 2.4-2.8 EGFR 15 Continue to trend labs 02/15/24: No change (5) Chronic anticoagulation: Code(s): Z79.01 - 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 (current) use of anticoagulants Status: Acute Assessment and Plan: 02/14/2024: Continue Eliquis 02/15/24: No change to current treatment plan (6) Anemia of chronic disease: Code(s): D63.8 - Anemia in other chronic diseases classified elsewhere Status: Acute Assessment and Plan: 02/14/2024: Hemoglobin 8.6 Continue to trend 02/15/24: Hemoglobin today 9.3 Continue to trend (7) Paroxysmal atrial flutter: Code(s): I48.92 - Unspecified atrial flutter Status: Chronic Assessment and Plan: 02/14/2024: Continue Eliquis Continue amiodarone 02/15/24: No change to current treatment plan (8) Essential hypertension: Code(s): I10 - Essential (primary) hypertension Status: Chronic Assessment and Plan: 02/14/2024: Blood pressures ranging 107/62 to 126/60 Continue Norvasc 5 mg daily 02/15/24: No change to current treatment plan Time Spent With Patient Time with patient: 25 - 35 minutes Subjective Date/time seen: 02/15/24 13:31 Interval history: 02/14/24: This is a 78-year-old female who presented to the hospital on 02/13/2024 with complaints of cough and shortness of breath. Workup in the hospital included a chest x-ray which shown airspace opacities in the perihilar regions consistent with mild pulmonary edema versus pneumonia, small pleural effusion. Initial labs showed a white blood cell count of 6.4, hemoglobin 10.0, INR 1.6, BUN 49, creatinine 3.0, EGFR 15, C RP 24.2, proBNP 2670 mild lactic acid 0.7. ABG showing a low PO2 of 67.7. Blood cultures were obtained and showing no growth on preliminary read. She was given 1 L normal saline, DuoNeb x2, [place], vancomycin and Levaquin in the ED. on examination today patient is alert and oriented x4, lying in the bed. She denies any fever, chills, nausea, vomiting, diarrhea, abdominal pain, chest pain. She endorses the productive cough with thick sputum and shortness of breath. She is currently on
[2024-02-15 14:22] LABS: Basophils Percent Auto 0.4 % (0.2-1.2); Eosinophils Absolute Auto 0.1 K/mm3 (0-0.3); Hematocrit 30.8 % (37.0-47.0); Hemoglobin 9.3 g/dL (12.0-15.0); Immature Granulocyte Absolute 0.07 K/mm3 (0.00-0.031); Immature Granulocyte Percent A 1.3 % (0-0.5); Lymphocytes Absolute Auto 0.65 K/mm3 (0.9-3.2); Lymphocytes Percent Auto 11.8 % (18.3-44.2); Mean Corpuscular HGB Conc 30.2 g/dl (32-36); Mean Corpuscular Volume 109.2 fl (80-100); Mean Platelet Volume 9.5 fl (7.4-10.4); Monocytes Absolute Auto 0.3 K/mm3 (0.1-0.6); Monocytes Percent Auto 6.2 % (2.6-8.5); Neutrophils Absolute Auto 4.3 K/mm3 (1.3-6.7); Neutrophils Percent Auto 78.3 % (45.5-73.1); Platelet Count Result 252 k/mm3 (150-375); Red Blood Count 2.82 M/mm3 (4.2-5.4); Red Cell Distribution Width 15.6 % (11.5-14.5); White Blood Count 5.5 K/mm3 (4.5-10.0)
[2024-02-15 15:30] LABS: Platelet Estimate Adequate (Adequate); Schistocytes None Seen
[2024-02-15 15:31] LABS: Anisocytosis 2+; Macrocytosis 1+ (NORMAL)
[2024-02-15 15:32] LABS: Hypochromasia 1+
[2024-02-15] MEDS: FLUTICASONE PROPIONATE 0.05% NA SPR 16 GM BTL (*BKC) 1 SPRAY NASAL ×2 (16:57→20:53)
[2024-02-15] MEDS: LORATADINE 10 MG TABLET PO (16:57)
[2024-02-15] MEDS: ONDANSETRON INJ 4 MG/2 ML VIAL IV PUSH (16:57)
[2024-02-15 17:01] LABS: Glucose Point of Care 166 mg/dl (65-105)
[2024-02-15 17:21] LABS: Alanine Aminotransferase 12 U/L (6-35); Albumin Level 2.8 g/dL (3.5-5.1); Alkaline Phosphatase 64 U/L (38-126); Anion Gap 7 mmol/L (4-12); Aspartate Amino Transferase 21 U/L (14-36); Bilirubin,Total 0.5 mg/dL (0.2-1.3); Blood Urea Nitrogen 50 mg/dL (7-17); Calcium 8.4 mg/dL (8.4-10.2); Carbon Dioxide 21 mmol/L (22-30); Chloride 110 mmol/L (98-107); Estimated CRCL calculation 17 ml/min; Estimated Glomerular Filt Rate 15; Glucose 184 mg/dL (65-110); Potassium 4.9 mmol/L (3.4-5.0); Sodium 138 mmol/L (137-145)
--- NOTE | 2024-02-15 20:25 | PM.CNPUL ---
Assessment and Plan Assessment and plan (1) Pneumonia: Qualifiers: Pneumonia type: due to unspecified organism Laterality: unspecified laterality Lung location: unspecified part of lung Qualified Code(s): J18.9 - Pneumonia, unspecified organism Code(s): J18.9 - Pneumonia, unspecified organism Status: Acute Assessment and Plan: I think her presentation was more consistent with acute bronchitis than pneumonia. She had thick sputum which she reports was green, had shortness of breath however chest x-ray to me appears to have more perihilar fluffiness. She has no infiltrate. Her white blood cell count was normal with 82% neutrophils so that counts as a left shift. The patient is a never smoker, does not have PFTs that are consistent with obstruction. She does not have COPD. I am going to remove this diagnosis from her problem list. She does have some air trapping on older pulmonary function tests. She has borderline diffusion impairment. She has had increased shortness of breath since COVID 2020. Her pain in her legs limits her activity more than shortness of breath. We can complete IV antibiotics, transition to oral and work on her other issues which are more chronic and contributed to her admission including untreated sleep apnea as well as chronic diastolic and systolic dysfunction. (2) Chronic systolic dysfunction of left ventricle: Code(s): I51.9 - Heart disease, unspecified Status: Acute Assessment and Plan: She has chronic systolic and diastolic dysfunction. Her multiple cardiac issues including hypertension, dyslipidemia, paroxysmal ventricular tachycardia or followed by Dr. Vega. (3) Obstructive sleep apnea: Code(s): G47.33 - Obstructive sleep apnea (adult) (pediatric) Status: Acute Assessment and Plan: She has longstanding obstructive sleep apnea, has been on CPAP, most recently was ordered to have BiPAP but the patient has never been compliant. She has had problems with mask leaks, she has told Dr. Adorno she does not know how to clean her machine. She does not use her device which worsens her heart failure. I am certain this is what contributes to her increasing shortness of breath, abdominal swelling, abnormal chest x-rays. Most recent x-ray looks like [place]-hilar pulmonary vascular redistribution, not pulmonary infiltrate. This issue can be followed in the office; I would like her to use PAP while she is in the hospital, address some of her issues. Hospitals only have a handful of masks to try, not as wide a selection as what sleep lab or DME provides. (4) Pulmonary hypertension: Code(s): I27.20 - Pulmonary hypertension, unspecified Status: Acute Assessment and Plan: Mild pulmonary hypertension on echo 02/15/2024, RVSP is 42 mm Hg. This is secondary pulmonary hypertension due to her heart disease and untreated obstructive sleep apnea. This can be followed on future echoes. We see her in the pulmonary clinic and Dr Vega is her campaign management senior manager. Plan * Cornet valve and Mucomyst to help clear secretions, move up & out the respiratory track, expectorate. She is having difficulty because the sputum is thick. * PAP therapy while she is in the hospital and close follow-up outpatient. She may improve as far as shortness of breath, abdominal swelling, decompensation of her systolic and diastolic issues if she is routinely using PAP therapy. Untreated sleep apnea is probably contributing to her pulmonary hypertension. History of Present Illness History of Present Illness Consult date: 02/16/24 Requesting physician: Maria C Hammer APRN Chief complaint: Pneumonia Narrative: patient was se
[2024-02-15 20:38] LABS: Glucose Point of Care 250 mg/dl (65-105)
[2024-02-15] MEDS: MELATONIN 5 MG TABLET PO (20:50)
[2024-02-15] MEDS: ATORVASTATIN 40 MG TABLET 80 MG PO (20:54)
[2024-02-16] VITALS (19 sets, daily range): BP systolic 106–114; BP diastolic 54–60; PULSE 74–90; RESP 17–20; TEMP 36.5–37.1; O2SAT 92–95
[2024-02-16] MEDS: IPRATROPIUM 0.5 MG/ALBUTEROL SULFATE 2.5 MG AMPUL.NEB 3 ML INHALATION ×4 (01:21→20:01)
[2024-02-16 06:13] LABS: Basophils Percent Auto 0.4 % (0.2-1.2); Eosinophils Absolute Auto 0.2 K/mm3 (0-0.3); Eosinophils Percent Auto 2.9 % (0-4.4); Hematocrit 26.4 % (37.0-47.0); Hemoglobin 8.1 g/dL (12.0-15.0); Immature Granulocyte Absolute 0.08 K/mm3 (0.00-0.031); Immature Granulocyte Percent A 1.5 % (0-0.5); Lymphocytes Absolute Auto 0.99 K/mm3 (0.9-3.2); Lymphocytes Percent Auto 18.2 % (18.3-44.2); Mean Corpuscular HGB Conc 30.7 g/dl (32-36); Mean Corpuscular Hemoglobin 33.3 pg (26-34); Mean Corpuscular Volume 108.6 fl (80-100); Mean Platelet Volume 9.1 fl (7.4-10.4); Monocytes Absolute Auto 0.6 K/mm3 (0.1-0.6); Monocytes Percent Auto 10.1 % (2.6-8.5); Neutrophils Absolute Auto 3.6 K/mm3 (1.3-6.7); Neutrophils Percent Auto 66.9 % (45.5-73.1); Platelet Count Result 226 k/mm3 (150-375); Red Blood Count 2.43 M/mm3 (4.2-5.4); Red Cell Distribution Width 15.7 % (11.5-14.5); White Blood Count 5.4 K/mm3 (4.5-10.0)
[2024-02-16 06:33] LABS: Alanine Aminotransferase 11 U/L (6-35); Albumin Level 2.8 g/dL (3.5-5.1); Alkaline Phosphatase 64 U/L (38-126); Anion Gap 5 mmol/L (4-12); Aspartate Amino Transferase 17 U/L (14-36); Bilirubin,Total 0.4 mg/dL (0.2-1.3); Blood Urea Nitrogen 46 mg/dL (7-17); Calcium 8.4 mg/dL (8.4-10.2); Carbon Dioxide 22 mmol/L (22-30); Chloride 112 mmol/L (98-107); Estimated CRCL calculation 16 ml/min; Estimated Glomerular Filt Rate 14; Glucose 144 mg/dL (65-110); Potassium 5.1 mmol/L (3.4-5.0); Sodium 139 mmol/L (137-145)
[2024-02-16] MEDS: allopurinoL 100 MG TABLET PO (08:09)
[2024-02-16] MEDS: guaiFENesin 12 HR 600 MG TABCR PO ×2 (08:09→21:08)
[2024-02-16] MEDS: DOCUSATE SODIUM 100 MG CAPSULE PO (08:09)
[2024-02-16] MEDS: APIXABAN 5 MG TABLET PO ×2 (08:09→21:08)
[2024-02-16] MEDS: ASPIRIN 81 MG ENTERIC TABLET PO (08:09)
[2024-02-16] MEDS: amLODIPine BESYLATE 5 MG TABLET PO (08:09)
[2024-02-16] MEDS: FENOFIBRATE 160 MG TABLET PO (08:09)
[2024-02-16] MEDS: HYDROcodone/acetaminophen (*CRX) 10-325 MG TABLET 1 TAB PO ×2 (08:10→21:06)
[2024-02-16] MEDS: LORATADINE 10 MG TABLET PO (08:10)
[2024-02-16] MEDS: TAMSULOSIN HCL 0.4 MG CAPSULE PO (08:10)
[2024-02-16] MEDS: AMIODARONE HCL 200 MG TABLET PO (08:10)
[2024-02-16] MEDS: FAMOTIDINE 20 MG TABLET PO ×2 (08:11→21:08)
[2024-02-16] MEDS: GABAPENTIN 300 MG CAPSULE PO ×3 (08:11→17:42)
[2024-02-16 08:13] LABS: Ovalocytes 1+; Platelet Estimate Adequate (Adequate)
[2024-02-16 08:14] LABS: Macrocytosis 1+ (NORMAL); Schistocytes None Seen
[2024-02-16] MEDS: EZETIMIBE 10 MG TABLET PO (08:15)
[2024-02-16 08:41] LABS: Glucose Point of Care 152 mg/dl (65-105)
[2024-02-16] MEDS: FLUTICASONE PROPIONATE 0.05% NA SPR 16 GM BTL (*BKC) 1 SPRAY NASAL ×2 (10:14→21:08)
--- NOTE | 2024-02-16 11:31 | PM.PNPUL ---
Progress Note: A&P Assessment and Plan (1) Pneumonia: Qualifiers: Laterality: unspecified laterality Lung location: unspecified part of lung Pneumonia type: due to unspecified organism Qualified Code(s): J18.9 - Pneumonia, unspecified organism Code(s): J18.9 - Pneumonia, unspecified organism Status: Acute Assessment and Plan: I think her presentation was more consistent with acute bronchitis than pneumonia. She had thick sputum which she reports was green, had shortness of breath however chest x-ray to me appears to have more perihilar fluffiness. She has no infiltrate. Her white blood cell count was normal with 82% neutrophils so that counts as a left shift. The patient is a never smoker, does not have PFTs that are consistent with obstruction. She does not have COPD. I am going to remove this diagnosis from her problem list. She does have some air trapping on older pulmonary function tests. She has borderline diffusion impairment. She has had increased shortness of breath since COVID 2020. Her pain in her legs limits her activity more than shortness of breath. We can complete IV antibiotics, transition to oral and work on her other issues which are more chronic and contributed to her admission including untreated sleep apnea as well as chronic diastolic and systolic dysfunction. (2) Chronic systolic dysfunction of left ventricle: Code(s): I51.9 - Heart disease, unspecified Status: Acute Assessment and Plan: She has chronic systolic and diastolic dysfunction. Her multiple cardiac issues including hypertension, dyslipidemia, paroxysmal ventricular tachycardia or followed by Dr. Vega. (3) Obstructive sleep apnea: Code(s): G47.33 - Obstructive sleep apnea (adult) (pediatric) Status: Acute Assessment and Plan: She has longstanding obstructive sleep apnea, has been on CPAP, most recently was ordered to have BiPAP but the patient has never been compliant. She has had problems with mask leaks, she has told Dr. Adorno she does not know how to clean her machine. She does not use her device which worsens her heart failure. I am certain this is what contributes to her increasing shortness of breath, abdominal swelling, abnormal chest x-rays. Most recent x-ray looks like [place]-hilar pulmonary vascular redistribution, not pulmonary infiltrate. This issue can be followed in the office; I would like her to use PAP while she is in the hospital, address some of her issues. Hospitals only have a handful of masks to try, not as wide a selection as what sleep lab or DME provides. (4) Pulmonary hypertension: Code(s): I27.20 - Pulmonary hypertension, unspecified Status: Acute Assessment and Plan: Mild pulmonary hypertension on echo 02/15/2024, RVSP is 42 mm Hg. This is secondary pulmonary hypertension due to her heart disease and untreated obstructive sleep apnea. This can be followed on future echoes. We see her in the pulmonary clinic and Dr Vega is her criminal intelligence analyst. Plan * Cornet valve and Mucomyst to help clear secretions, move up & out the respiratory track, expectorate. She is having difficulty because the sputum is thick. * PAP therapy while she is in the hospital and close follow-up outpatient. She may improve as far as shortness of breath, abdominal swelling, decompensation of her systolic and diastolic issues if she is routinely using PAP therapy. Untreated sleep apnea is probably contributing to her pulmonary hypertension. * retest sleep outpatient as she has gained and lost weight Subjective Date/time seen: 02/16/24 11:31 Interval history: hospital follow up: 02/16/24-she feels better, not
[2024-02-16 12:01] LABS: Glucose Point of Care 234 mg/dl (65-105)
[2024-02-16] MEDS: ACETAMINOPHEN 325 MG TABLET 650 MG PO (12:21)
[2024-02-16] MEDS: INSULIN ASPART (*BKC) 100 UNITS/ML SUB-Q ×2 (12:22→21:11)
[2024-02-16 13:29] LABS: Mycoplasma IgM Antibody Titer 296 U/mL (<770)
[2024-02-16 15:22] LABS: Pneumococcal Antigen Urine Not Detected (Not Detected)
--- NOTE | 2024-02-16 15:57 | P.PNIM_ITS ---
Progress Note: A&P Assessment and Plan (1) Pneumonia: Qualifiers: Laterality: unspecified laterality Lung location: unspecified part of lung Pneumonia type: due to unspecified organism Qualified Code(s): J18.9 - Pneumonia, unspecified organism Code(s): J18.9 - Pneumonia, unspecified organism Status: Acute Assessment and Plan: 02/14/2024: * Chest x-ray showing pneumonia * Patient started on Vancomycin and Levaquin * Continue with DuoNebs * Patient is currently on room air * Continue guaifenesin * Urine strep, Urine Legionella, and Mycoplasma are pending * Sputum culture ordered * Patient states she has had frequent bouts of pneumonia this year, she is followed by Dr. Adorno * We will go ahead and consult pulmonology as a courtesy and for additional support 02/15/24: * Continue Levaquin * Sputum culture pending * Blood cultures showing no growth to date on preliminary read. * Pulmonology board * Urine strep, urine Legionella, and mycoplasma are still pending * We will go ahead and start Claritin and Flonase today * No change to current treatment plan 02/16/2024: * Switched to IV Levaquin to oral today 3 more doses * Sputum culture showing staphylococcus aureus on preliminary read * Blood cultures are showing no growth today on preliminary read * Mycoplasma was negative * Urine strep was negative * Urine Legionella is still pending * Continue with pep therapy and Mucomyst breathing treatments to help the secretions * Will touch base with research test engine operator tomorrow regarding CPAP/BiPAP (2) Chronic obstructive pulmonary disease: Code(s): J44.9 - Chronic obstructive pulmonary disease, unspecified Status: Chronic Assessment and Plan: Of note see above plan of care (3) Insulin dependent type 2 diabetes mellitus: Code(s): E11.9 - Type 2 diabetes mellitus without complications; Z79.4 - shelter (current) use of insulin Status: Chronic Assessment and Plan: 02/14/2024: * Blood sugars ranging 204-219 * Hemoglobin A1c on 01/18/2024 was 8.0 * Hypoglycemic protocol in place * Accu-Cheks AC and HS * Moderate dose sliding scale insulin ordered * Humalog KwikPen on hold 02/15/24: * Blood glucose is ranging 159-235 * No change to current treatment plan (4) Chronic kidney disease, stage IV (severe): Code(s): N18.4 - Chronic kidney disease, stage 4 (severe) Status: Chronic Assessment and Plan: 02/14/2024: * BUN 49, creatinine 3.0 * Baseline appears to be 2.4-2.8 * EGFR 15 * Continue to trend labs 02/15/24: * No change (5) Chronic anticoagulation: Code(s): Z79.01 - shelter (current) use of anticoagulants Status: Acute Assessment and Plan: 02/14/2024: * Continue Eliquis 02/15/24: * No change to current treatment plan (6) Anemia of chronic disease: Code(s): D63.8 - Anemia in other chronic diseases classified elsewhere Status: Acute Assessment and Plan: 02/14/2024: * Hemoglobin 8.6 * Continue to trend 02/15/24: * Hemoglobin today 9.3 * Continue to trend 02/16/2024: * Stable (7) Paroxysmal atrial flutter: Code(s): I48.92 - Unspecified atrial flutter Status: Chronic Assessment and Plan: 02/14/2024: * Continue Eliquis * Continue amiodarone 02/15/24: * No change to current treatment plan (8) Essential hypertension: Code(s): I10 - Essential (primary) hypertension Status: Chronic Assessment an
--- NOTE | 2024-02-16 15:57 | PM.IMPN ---
Progress Note: A&P Assessment and Plan (1) Pneumonia: Qualifiers: Laterality: unspecified laterality Lung location: unspecified part of lung Pneumonia type: due to unspecified organism Qualified Code(s): J18.9 - Pneumonia, unspecified organism Code(s): J18.9 - Pneumonia, unspecified organism Status: Acute Assessment and Plan: 02/14/2024: Chest x-ray showing pneumonia Patient started on Vancomycin and Levaquin Continue with DuoNebs Patient is currently on room air Continue guaifenesin Urine strep, Urine Legionella, and Mycoplasma are pending Sputum culture ordered Patient states she has had frequent bouts of pneumonia this year, she is followed by Dr. Adorno We will go ahead and consult pulmonology as a courtesy and for additional support 02/15/24: Continue Levaquin Sputum culture pending Blood cultures showing no growth to date on preliminary read. Pulmonology board Urine strep, urine Legionella, and mycoplasma are still pending We will go ahead and start Claritin and Flonase today No change to current treatment plan 02/16/2024: Switched to IV Levaquin to oral today 3 more doses Sputum culture showing staphylococcus aureus on preliminary read Blood cultures are showing no growth today on preliminary read Mycoplasma was negative Urine strep was negative Urine Legionella is still pending Continue with pep therapy and Mucomyst breathing treatments to help the secretions Will touch base with hair stylist tomorrow regarding CPAP/BiPAP (2) Chronic obstructive pulmonary disease: Code(s): J44.9 - Chronic obstructive pulmonary disease, unspecified Status: Chronic Assessment and Plan: Of note see above plan of care (3) Insulin dependent type 2 diabetes mellitus: Code(s): E11.9 - Type 2 diabetes mellitus without complications; Z79.4 - terminal make up operator (current) use of insulin Status: Chronic Assessment and Plan: 02/14/2024: Blood sugars ranging 204-219 Hemoglobin A1c on 01/18/2024 was 8.[address] Accu-Cheks AC and HS Moderate dose sliding scale insulin ordered Humalog KwikPen on hold 02/15/24: Blood glucose is ranging 159-235 No change to current treatment plan (4) Chronic kidney disease, stage IV (severe): Code(s): N18.4 - Chronic kidney disease, stage 4 (severe) Status: Chronic Assessment and Plan: 02/14/2024: BUN 49, creatinine 3.0 Baseline appears to be 2.4-2.8 EGFR 15 Continue to trend labs 02/15/24: No change (5) Chronic anticoagulation: Code(s): Z79.01 - prison (current) use of anticoagulants Status: Acute Assessment and Plan: 02/14/2024: Continue Eliquis 02/15/24: No change to current treatment plan (6) Anemia of chronic disease: Code(s): D63.8 - Anemia in other chronic diseases classified elsewhere Status: Acute Assessment and Plan: 02/14/2024: Hemoglobin 8.6 Continue to trend 02/15/24: Hemoglobin today 9.3 Continue to trend 02/16/2024: Stable (7) Paroxysmal atrial flutter: Code(s): I48.92 - Unspecified atrial flutter Status: Chronic Assessment and Plan: 02/14/2024: Continue Eliquis Continue amiodarone 02/15/24: No change to current treatment plan (8) Essential hypertension: Code(s): I10 - Essential (primary) hypertension Status: Chronic Assessment and Plan: 02/14/2024: Blood pressures ranging 107/62 to 126/60 Continue Norvasc 5 mg daily 02/15/24: No change to current treatment plan Time Spent With Patient Time with patient: 25 - 35 minutes Subjective Date/time seen: 02/16/24 15:57 Interval history: 02/14/24: This is a 78-year-old female who presented to the hospital on 02/13/2024 with complaints of cough and shortness of breath. Workup in the hospital included a chest x-ray which shown airspace opacities in the perihilar regions consistent with mild
[2024-02-16 17:00] LABS: Glucose Point of Care 163 mg/dl (65-105)
[2024-02-16] MEDS: MELATONIN 5 MG TABLET PO (21:07)
[2024-02-16] MEDS: ATORVASTATIN 40 MG TABLET 80 MG PO (21:07)
[2024-02-16 22:06] LABS: Glucose Point of Care 204 mg/dl (65-105)
[2024-02-17] VITALS (10 sets, daily range): BP systolic 126; BP diastolic 58; PULSE 70–85; RESP 16–20; TEMP 36.6; O2SAT 94–97
[2024-02-17] MEDS: IPRATROPIUM 0.5 MG/ALBUTEROL SULFATE 2.5 MG AMPUL.NEB 3 ML INHALATION ×3 (02:08→13:10)
[2024-02-17 04:26] LABS: Legionella pneumophila Ag Ur Not Detected (Not Detected)
[2024-02-17] MEDS: HYDROcodone/acetaminophen (*CRX) 10-325 MG TABLET 1 TAB PO (04:44)
[2024-02-17 05:33] LABS: Basophils Percent Auto 0.3 % (0.2-1.2); Eosinophils Absolute Auto 0.2 K/mm3 (0-0.3); Eosinophils Percent Auto 2.7 % (0-4.4); Hematocrit 26.2 % (37.0-47.0); Hemoglobin 8.1 g/dL (12.0-15.0); Immature Granulocyte Absolute 0.09 K/mm3 (0.00-0.031); Immature Granulocyte Percent A 1.5 % (0-0.5); Lymphocytes Absolute Auto 0.98 K/mm3 (0.9-3.2); Lymphocytes Percent Auto 16.5 % (18.3-44.2); Mean Corpuscular HGB Conc 30.9 g/dl (32-36); Mean Corpuscular Hemoglobin 33.5 pg (26-34); Mean Corpuscular Volume 108.3 fl (80-100); Mean Platelet Volume 9.2 fl (7.4-10.4); Monocytes Absolute Auto 0.6 K/mm3 (0.1-0.6); Monocytes Percent Auto 10.8 % (2.6-8.5); Neutrophils Absolute Auto 4.1 K/mm3 (1.3-6.7); Neutrophils Percent Auto 68.2 % (45.5-73.1); Platelet Count Result 212 k/mm3 (150-375); Red Blood Count 2.42 M/mm3 (4.2-5.4); Red Cell Distribution Width 15.8 % (11.5-14.5)
[2024-02-17 05:55] LABS: Platelet Estimate Adequate (Adequate)
[2024-02-17 05:56] LABS: Anisocytosis 1+; Hypochromasia 1+; Ovalocytes 1+; Schistocytes None Seen
[2024-02-17 08:34] LABS: Glucose Point of Care 169 mg/dl (65-105)
--- NOTE | 2024-02-17 08:40 | PM.DS ---
DS: Admitting Diagnosis Discharge Date 02/17/24 Admitting Diagnosis Pneumonia Insulin DM type 2 CKD stage IV anemia of chronic disease paroxysmal atrial fibrillation essential hypertension CHF DS: Discharge Diagnosis Discharge Diagnosis (1) Pneumonia: Qualifiers: Laterality: unspecified laterality Lung location: unspecified part of lung Pneumonia type: due to methicillin-sensitive Staphylococcus aureus (MSSA) Qualified Code(s): J15.211 - Pneumonia due to Methicillin susceptible Staphylococcus aureus Code(s): J18.9 - Pneumonia, unspecified organism Status: Acute (2) Chronic obstructive pulmonary disease: Code(s): J44.9 - Chronic obstructive pulmonary disease, unspecified Status: Chronic (3) Insulin dependent type 2 diabetes mellitus: Code(s): E11.9 - Type 2 diabetes mellitus without complications; Z79.4 - supervisor intermediates (current) use of insulin Status: Chronic (4) Chronic kidney disease, stage IV (severe): Code(s): N18.4 - Chronic kidney disease, stage 4 (severe) Status: Chronic (5) Chronic anticoagulation: Code(s): Z79.01 - supervisor intermediates (current) use of anticoagulants Status: Acute (6) Anemia of chronic disease: Code(s): D63.8 - Anemia in other chronic diseases classified elsewhere Status: Acute (7) Paroxysmal atrial flutter: Code(s): I48.92 - Unspecified atrial flutter Status: Chronic (8) Essential hypertension: Code(s): I10 - Essential (primary) hypertension Status: Chronic DS: Summary Hospital Course Reason for hospitalization: Pneumonia Insulin DM type 2 CKD stage IV anemia of chronic disease paroxysmal atrial fibrillation essential hypertension CHF Hospital Course: 02/14/24: This is a 78-year-old female who presented to the hospital on 02/13/2024 with complaints of cough and shortness of breath.? Workup in the hospital included a chest x-ray which shown airspace opacities in the perihilar regions consistent with mild pulmonary edema versus pneumonia, small pleural effusion.? Initial labs showed a white blood cell count of 6.4, hemoglobin 10.0, INR 1.6, BUN 49, creatinine 3.0, EGFR 15, C RP 24.2, proBNP 2670 mild lactic acid 0.7.? ABG showing a low PO2 of 67.7.? Blood cultures were obtained and showing no growth on preliminary read.? She was given 1 L normal saline, DuoNeb x2, [place], vancomycin and Levaquin in the ED. on examination today patient is alert and oriented x4, lying in the bed.? She denies any fever, chills, nausea, vomiting, diarrhea, abdominal pain, chest pain.? She endorses the productive cough with thick sputum and shortness of breath.? She is currently on room air and does not appear to be in any acute distress at this time.? She states that she has had pneumonia 3 times this year and follows with Dr. Adorno.? We will go ahead and get them involved for additional support.? Patient states that she has received all of her vaccines including some COVID, influenza, RSV, pneumonia.? Urine strep, urine Legionella, and mycoplasma are all pending. 02/15/2024: On examination today patient is alert and oriented x3 lying in in the bed. ? Pulmonology is following.? Continue Levaquin.? Will go ahead and start Claritin and Flonase.? We will also get an echo. 02/16/2024: Patient denies any new complaints today.? Pulmonology is following and has given Mucomyst breathing treatments and pep therapy to help bring up secretions.? Patient has history of sleep apnea however she is not compliant with CPAP at home and has recently required BiPAP however she does not use this either.? This can be contributing to her pulmonary hypertension and congestive heart changes according to the human service specialist.? Echo results showing normal LV systolic function with an estimated EF of 60-65%, grade 1 diastolic dysfunction, mild pulmonary hypertension. 02/17/24: Patient denies any new complaints today. Labs today show hemoglobin 8.1, bicarb 21,
[2024-02-17] MEDS: amLODIPine BESYLATE 5 MG TABLET PO (08:43)
[2024-02-17] MEDS: guaiFENesin 12 HR 600 MG TABCR PO (08:44)
[2024-02-17] MEDS: TAMSULOSIN HCL 0.4 MG CAPSULE PO (08:44)
[2024-02-17] MEDS: FAMOTIDINE 20 MG TABLET PO (08:44)
[2024-02-17] MEDS: levoFLOXacin 750 MG TABLET PO (08:44)
[2024-02-17] MEDS: DOCUSATE SODIUM 100 MG CAPSULE PO (08:44)
[2024-02-17] MEDS: allopurinoL 100 MG TABLET PO (08:44)
[2024-02-17] MEDS: FENOFIBRATE 160 MG TABLET PO (08:44)
[2024-02-17] MEDS: APIXABAN 5 MG TABLET PO (08:44)
[2024-02-17] MEDS: AMIODARONE HCL 200 MG TABLET PO (08:44)
[2024-02-17] MEDS: GABAPENTIN 300 MG CAPSULE PO ×2 (08:44→13:03)
[2024-02-17] MEDS: EZETIMIBE 10 MG TABLET PO (08:45)
[2024-02-17] MEDS: LORATADINE 10 MG TABLET PO (08:45)
[2024-02-17] MEDS: ASPIRIN 81 MG ENTERIC TABLET PO (08:45)
[2024-02-17] MEDS: FLUTICASONE PROPIONATE 0.05% NA SPR 16 GM BTL (*BKC) 1 SPRAY NASAL (08:48)
[2024-02-17 09:32] LABS: Alanine Aminotransferase 11 U/L (6-35); Albumin Level 2.8 g/dL (3.5-5.1); Alkaline Phosphatase 72 U/L (38-126); Anion Gap 5 mmol/L (4-12); Aspartate Amino Transferase 16 U/L (14-36); Bilirubin,Total 0.4 mg/dL (0.2-1.3); Blood Urea Nitrogen 47 mg/dL (7-17); Calcium 8.5 mg/dL (8.4-10.2); Carbon Dioxide 21 mmol/L (22-30); Chloride 112 mmol/L (98-107); Estimated CRCL calculation 17 ml/min; Estimated Glomerular Filt Rate 15; Glucose 155 mg/dL (65-110); Sodium 138 mmol/L (137-145)
[2024-02-17 12:49] LABS: Glucose Point of Care 164 mg/dl (65-105)
[2024-02-17] MEDS: ACETAMINOPHEN 325 MG TABLET 650 MG PO (13:02)
--- NOTE | 2024-02-17 14:10 | PM.PNPUL ---
Progress Note: A&P Assessment and Plan (1) Pneumonia: Qualifiers: Laterality: unspecified laterality Lung location: unspecified part of lung Pneumonia type: due to methicillin-sensitive Staphylococcus aureus (MSSA) Qualified Code(s): J15.211 - Pneumonia due to Methicillin susceptible Staphylococcus aureus Code(s): J18.9 - Pneumonia, unspecified organism Status: Acute Assessment and Plan: Pneumonia vs acute bronchitis; Sputum grew MSSA, resistant to Levaquin. She is less short of breath, has less sputum. She has had increased shortness of breath since COVID 2020. Her pain in her legs limits her activity more than shortness of breath. We will stop oral Levaquin, start doxycycline hyclate 100 bg b.i.d, one dose here, and 9 doses more to complete 5 days treatment of MSSA, Staph aureus. (2) Chronic systolic dysfunction of left ventricle: Code(s): I51.9 - Heart disease, unspecified Status: Acute Assessment and Plan: She has chronic systolic and diastolic dysfunction. Her multiple cardiac issues including hypertension, dyslipidemia, paroxysmal ventricular tachycardia or followed by Dr. Vega. (3) Obstructive sleep apnea: Code(s): G47.33 - Obstructive sleep apnea (adult) (pediatric) Status: Acute Assessment and Plan: She has longstanding obstructive sleep apnea, has been on CPAP, most recently was ordered to have BiPAP but the patient has never been compliant. She has had problems with mask leaks, she has told Dr. Adorno she does not know how to clean her machine. She does not use her device which worsens her heart failure. I am certain this is what contributes to her increasing shortness of breath, abdominal swelling, abnormal chest x-rays. Most recent x-ray looks like [place]-h[place] pulmonary vascular redistribution, not pulmonary infiltrate. This issue can be followed in the office; we did not use PAP here, not certain what setting might be best. Has lost 40 lb over a year. (4) Pulmonary hypertension: Code(s): I27.20 - Pulmonary hypertension, unspecified Status: Acute Assessment and Plan: Mild pulmonary hypertension on echo 02/15/2024, RVSP is 42 mm Hg. This is secondary pulmonary hypertension due to her heart disease and untreated obstructive sleep apnea. This can be followed on future echoes. We see her in the pulmonary clinic and Dr Vega is her maintenance supervisor. Plan plan: OK to go home today. * Continue to use Cornet valve at home. I instructed her in use of Cornet valve, and changed setting to third level. Needs to keep and use when she gets sputum. Cleaning instructions inside package. * Doxycycline hyclate 100 mg b.i.d, one dose here, 9 doses after discharge. * follow up in pulmonary office in 3 weeks; will need repeat sleep testing. Untreated sleep apnea is probably contributing to her pulmonary hypertension. discussed with Maria C Hammer Subjective Date/time seen: 02/17/24 14:10 Interval history: hospital follow up: 02/17/24 - Remains on room air. Has less sputum, Cornet is helping clear secretions. Sputum is yellowish. I had her use the Cornet vibratory valve during the visit, increased to the third setting which is more resistance than the first setting. She feels better compared to admission, and says her daughter can get her later today. She is open to having repeat sleep testing. She has lost significant weight, prior settings BiPAP will not likely be effective. Her machine is somewhere at her home, misplaced when she moved to daughter's house in the last year. 02/16/24-she feels better, not short of breat
== END 2024-02-17 16:29 | disposition home or self-care (01) | DRG 178 ==
LOC: ANHED 14:48 → ANH3MED 17:29
PROVIDERS: Emergency Medicine; Physician Assistant; Admitting Provider Student in an Organized Health Care Education/Training Program; Emergency Provider Emergency Medicine; PCP Family Medicine; Visit Provider Nurse Practitioner Acute Care
DX: J15.211 Pneumonia due to Methicillin susceptible Staphylococcus aureus (principal); I13.0 Hypertensive heart and chronic kidney disease with heart failure and stage 1 through stage 4 chronic kidney disease, or unspecified chronic kidney disease; N18.4 Chronic kidney disease, stage 4 (severe); I48.92 Unspecified atrial flutter; N17.9 Acute kidney failure, unspecified; I50.32 Chronic diastolic (congestive) heart failure; Z16.21 Resistance to vancomycin; J20.9 Acute bronchitis, unspecified; E11.22 Type 2 diabetes mellitus with diabetic chronic kidney disease; E11.42 Type 2 diabetes mellitus with diabetic polyneuropathy; I48.0 Paroxysmal atrial fibrillation; D63.8 Anemia in other chronic diseases classified elsewhere; E78.5 Hyperlipidemia, unspecified; K21.9 Gastro-esophageal reflux disease without esophagitis; M79.7 Fibromyalgia; G47.33 Obstructive sleep apnea (adult) (pediatric); M19.90 Unspecified osteoarthritis, unspecified site; I12.9 Hypertensive chronic kidney disease with stage 1 through stage 4 chronic kidney disease, or unspecified chronic kidney disease; E55.9 Vitamin D deficiency, unspecified; F41.8 Other specified anxiety disorders; Z20.822 Contact with and (suspected) exposure to COVID-19; Z87.11 Personal history of peptic ulcer disease; Z79.82 Long term (current) use of aspirin; Z79.01 Long term (current) use of anticoagulants; Z90.49 Acquired absence of other specified parts of digestive tract; Z90.710 Acquired absence of both cervix and uterus; Z86.73 Personal history of transient ischemic attack (TIA), and cerebral infarction without residual deficits; Z79.4 Long term (current) use of insulin; E66.01 Morbid (severe) obesity due to excess calories; Z68.34 Body mass index [BMI] 34.0-34.9, adult; Z86.16 Personal history of COVID-19; Z91.148 Patient's other noncompliance with medication regimen for other reason
CPT/HCPCS: 36415; 36600; 71046; 80048; 80053; 82805; 82948; 83605; 83735; 83880; 85025; 85027; 85610; 86140; 86738; 87040; 87070; 87077; 87181; 87205; 87449; 87637; 87899; 93005; 93306; 94640; 94667; 94668; 96361; 96365; 96376; 99285; A9270; G0378; J1815; J1956; J2405; J7030

== ENCOUNTER 2024-05-10 16:38 | Emergency (ER) | payer MEDICARE, SELFPAY ==
[2024-05-10] VITALS (13 sets, daily range): BP systolic 76–121; BP diastolic 49–72; PULSE 70–80; RESP 13–16; TEMP 36.8; O2SAT 92–97
--- NOTE | ~2024-05-10 | CT_ITS ---
CT brain wo con Ordering provider: Rosa Young PA-C History: 78 years Female with . dizziness, weakness, slurred [id number] . Comparison: None. Technique: CT of the head without contrast. Radiation reduction technique utilized. DLP is 908 mGy. FINDINGS: BRAIN PARENCHYMA AND CSF SPACES: Mild leukoaraiosis and diffuse cortical atrophy. Mild atheromatous d isease. Old lacunar infarct in the left basal ganglia. Old infarct with encephalomalacia in the left frontal lobe. No midline shift, mass effect or hemorrhage. The brain parenchyma and CSF spaces are o therwise normal. VISUALIZED PARANASAL SINUSES: Left maxillary sinus disease.. MASTOIDS: Well aerated. BONES: The bones appear intact. SOFT TISSUES: Visualized nasopharynx is normal. Superficial soft tissues are normal. IMPRESSION: No acute intracranial findings. Reviewed, dictated and finalized at location A.
--- NOTE | ~2024-05-10 | XR_ITS ---
XR chest 2V Ordering provider: Pradeep Doll MD History: 78 years Female with . chest pain . Comparison: February 13, 2024 FINDINGS: MEDIASTINUM: The cardiac silhouette is not enlarged. LUNGS: No infiltrates, effusions or pneumothorax. OTHER: No free air under the diaphragm. Degenerative changes of the spine. IMPRESSION: No acute cardiopulmonary pathology. Reviewed, dictated and finalized at location A.
--- NOTE | 2024-05-10 16:39 | ECG_ITS ---
Test Date: 2024-05-10 16:45:49 Measurements Intervals [place] Rate: 73 P: 233 MO: 138 QRS: -50 QRSD: 162 T: 78 QT: 443 QTc: 489 Interpretive Statements SINUS RHYTHM WITH FIRST DEGREE AV BLOCK LEFT BUNDLE BRANCH BLOCK ABNORMAL ECG No previous ECG available for comparison Electronically Signed On 05-10-2024 16:48:39 CDT by Chau Vega D.O.
[2024-05-10] MEDS: ASPIRIN 81 MG CHEWABLE TABLET 324 MG PO (16:51)
--- NOTE | 2024-05-10 16:52 | PC.NURSE ---
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
[2024-05-10 17:00] LABS: Basophils Percent Auto 0.8 % (0.2-1.2); Eosinophils Absolute Auto 0.2 K/mm3 (0-0.3); Hemoglobin 9.7 g/dL (12.0-15.0); Immature Granulocyte Absolute 0.01 K/mm3 (0.00-0.031); Immature Granulocyte Percent A 0.2 % (0-0.5); Lymphocytes Absolute Auto 1.16 K/mm3 (0.9-3.2); Lymphocytes Percent Auto 24.3 % (18.3-44.2); Mean Corpuscular HGB Conc 31.3 g/dl (32-36); Mean Corpuscular Hemoglobin 33.3 pg (26-34); Mean Corpuscular Volume 106.5 fl (80-100); Mean Platelet Volume 9.5 fl (7.4-10.4); Monocytes Absolute Auto 0.3 K/mm3 (0.1-0.6); Monocytes Percent Auto 7.1 % (2.6-8.5); Neutrophils Percent Auto 62.6 % (45.5-73.1); Platelet Count Result 270 k/mm3 (150-375); Red Blood Count 2.91 M/mm3 (4.2-5.4); Red Cell Distribution Width 16.1 % (11.5-14.5); White Blood Count 4.8 K/mm3 (4.5-10.0)
--- NOTE | 2024-05-10 17:06 | ED.CHESTPAIN ---
HPI - Chest Pain General Chief Complaint: Chest Pain Stated Complaint: CP Time Seen by Provider: 05/10/24 17:03 Source: patient, family and old records reviewed Mode of arrival: ambulatory Limitations: no limitations History of Present Illness HPI narrative: Patient is a 78-year-old female who presents the ED with multiple complaints. Patient reports she has not felt well over the last 3-4 days. Daughter bedside reports patient has been fatigued, lethargic, out of it. Reports patient has chronic intermittent aphasia since her previous CVA, but states she has had more speech difficulty this week than usual. Patient also reports dizziness, lightheadedness, intermittent dull aching L sided CP since yesterday, nausea, weakness. Denies fevers, abdominal pain, cough, cold sx's, significant SOB, swelling in BLE, focal numbness or weakness. Related Data Home Medications Medication Instructions Recorded Confirmed gabapentin 300 mg capsule 300 mg PO TID 12/07/19 04/12/24 ergocalciferol (vitamin D2) 1,250 1,250 mcg PO WEEKLY 02/22/21 04/12/24 mcg (50,000 unit) capsule docusate sodium 100 mg capsule 1 cap PO DAILY 05/04/22 04/12/24 dicyclomine 10 mg capsule 10 mg PO TID PRN Abdominal 03/27/23 04/12/24 Discomfort allopurinol 100 mg tablet 100 mg PO DAILY 09/15/23 04/12/24 atorvastatin 80 mg tablet 80 mg PO HS 09/15/23 04/12/24 ezetimibe 10 mg tablet 10 mg PO DAILY 09/15/23 04/12/24 fenofibrate 160 mg tablet 160 mg PO DAILY 09/15/23 04/12/24 hydrocodone 10 mg-acetaminophen 10 tablet PO Q8H PRN Pain (Scale 09/15/23 04/12/24 325 mg tablet Score 4-6) insulin lispro 100 unit/mL See Rx Instructions .Route 09/15/23 04/12/24 subcutaneous pen (Humalog KwikPen .COMPLEX PRN Hyperglycemia (U-100) Insulin) melatonin 5 mg tablet 5 mg PO HS 09/15/23 04/12/24 sitagliptin phosphate 25 mg tablet 25 mg PO DAILY 09/15/23 04/12/24 (Januvia) acetaminophen 500 mg capsule 500 mg PO Q6H 09/26/23 04/12/24 amiodarone 200 mg tablet 200 mg PO DAILY 01/16/24 04/12/24 apixaban 5 mg tablet (Eliquis) 5 mg PO Q12H 01/16/24 04/12/24 Allergies Allergy/AdvReac Type Severity Reaction Status Date / Time ceftriaxone Allergy Unknown Anaphylaxis Verified 05/10/24 16:38 clindamycin Allergy Unknown Anaphylaxis Verified 05/10/24 16:38 Penicillins Allergy Unknown Hives Verified 05/10/24 16:38 morphine AdvReac Unknown Vomiting Verified 05/10/24 16:38 nitroglycerin AdvReac Unknown Headache Verified 05/10/24 16:38 Review of Systems Review of Systems: CONSTITUTIONAL: Denies fever, chills, or sweats. ENT: Denies rhinorrhea, congestion, sore throat. CARDIOVASCULAR: See HPI. RESPIRATORY: See HPI. GASTROINTESTINAL: See HPI MUSCULOSKELETAL: Denies back pain, extremity pain, myalgia. NEUROLOGIC: See HPI All systems reviewed & are unremarkable except as noted in HPI and below PMFSH Past Medical History Medical History Anemia of chronic disease Cerebrovascular accident 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 Cholelithiasis Chronic anticoagulation Congestive heart failure History of reduced ejection fraction with improvement in EF to 55% on most recent echo. Diastolic dysfunction also noted. 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 Depression with anxiety Diabetic peripheral neuropathy Dyslipidemia Essential hypertension Fibromyalgia Gastroesophageal reflux disease History of peptic ulcer Hypersomnia Insulin dependent type 2 diabetes mellitus Obstructive sleep apnea Obstructive sleep apnea on CPAP Osteoarthritis Paroxysmal atrial flutter Stage III chronic kidney disease Baseline creatinine ranges between 1.3 and 1.60. Vitamin D deficiency Surgical History Surgical History
[2024-05-10 17:08] LABS: Anisocytosis 1+; Macrocytosis 1+ (NORMAL); Platelet Estimate Adequate (Adequate); Schistocytes None Seen
[2024-05-10 17:10] LABS: INR 1.4; Prothrombin Time 17.5 Seconds (11.1-14.7)
[2024-05-10 17:21] LABS: Troponin I 0.019 ng/mL (0.000-0.034)
[2024-05-10 17:23] LABS: Alanine Aminotransferase 16 U/L (6-35); Albumin Level 3.5 g/dL (3.5-5.1); Alkaline Phosphatase 71 U/L (38-126); Aspartate Amino Transferase 25 U/L (14-36); Bilirubin,Total 0.4 mg/dL (0.2-1.3); Blood Urea Nitrogen 58 mg/dL (7-17); Calcium 8.4 mg/dL (8.4-10.2); Carbon Dioxide 26 mmol/L (22-30); Estimated CRCL calculation 15 ml/min; Estimated Glomerular Filt Rate 14; Glucose 259 mg/dL (65-110); Lipase 118 U/L (23-300)
[2024-05-10 17:24] LABS: Anion Gap 6 mmol/L (4-12); Chloride 108 mmol/L (98-107); Potassium 4.2 mmol/L (3.4-5.0); Sodium 140 mmol/L (137-145)
[2024-05-10 17:48] LABS: NT Pro B Type Natriuretic Pept 2360 pg/mL (19.9-100)
[2024-05-10] MEDS: SODIUM CHLORIDE 0.9% IV 500 ML 999 ML IV CONT (18:03)
[2024-05-10] MEDS: MECLIZINE HCL 25 MG TABLET PO (18:04)
[2024-05-10 18:05] LABS: Appearance Urine Cloudy (Clear); Bacteria Urine 1+ /hpf; Bilirubin Urine Negative (Negative); Blood Urine Negative (Negative); Color Urine Yellow (Yellow); Glucose Urine UA Trace mg/dL (Negative); Ketones Urine Negative (Negative); Leukocyte Esterase Ur 1+ LEU/UL (Negative); Nitrate Urine Negative (Negative); Protein Urine 1+ mg/dL (Negative); RBC Urine 0-2 /hpf (0-2); Specific Grav Ur 1.014 (1.001-1.035); Squamous Epithelial Cell Urine Few /hpf (Few); Urobilinogen Urine 0.2 mg/dL (<2.0); WBC Urine 21-50 /hpf (0-3)
[2024-05-10 18:06] LABS: Add Urine Microscopic? YES
[2024-05-10 18:45] LABS: Influenza A QL RT-PCR Negative (Negative); Influenza B QL RT-PCR Negative (Negative); RSV RNA, RT-PCR Negative (Negative); SARS-CoV-2 RNA PCR Negative (Negative)
[2024-05-10] MEDS: levoFLOXacin 750 MG/D5W 150 ML 750 MG/150 ML BAG 100 MG IVPB (18:59)
[2024-05-10 20:30] LABS: Troponin I 0.018 ng/mL (0.000-0.034)
== END 2024-05-10 21:00 | disposition home or self-care (01) ==
PROVIDERS: Emergency Medicine; Emergency Provider Physician Assistant; PCP Family Medicine
DX: N39.0 Urinary tract infection, site not specified (principal); R53.1 Weakness; I95.1 Orthostatic hypotension; R47.9 Unspecified speech disturbances; R07.89 Other chest pain; Z20.822 Contact with and (suspected) exposure to COVID-19; I69.920 Aphasia following unspecified cerebrovascular disease; I48.92 Unspecified atrial flutter; E11.22 Type 2 diabetes mellitus with diabetic chronic kidney disease; I13.0 Hypertensive heart and chronic kidney disease with heart failure and stage 1 through stage 4 chronic kidney disease, or unspecified chronic kidney disease; N18.30 Chronic kidney disease, stage 3 unspecified; I50.9 Heart failure, unspecified; E11.42 Type 2 diabetes mellitus with diabetic polyneuropathy; E78.5 Hyperlipidemia, unspecified; E55.9 Vitamin D deficiency, unspecified; M79.7 Fibromyalgia; G47.33 Obstructive sleep apnea (adult) (pediatric); D63.8 Anemia in other chronic diseases classified elsewhere; Z87.11 Personal history of peptic ulcer disease; Z90.710 Acquired absence of both cervix and uterus; Z79.01 Long term (current) use of anticoagulants; Z79.899 Other long term (current) drug therapy; Z79.84 Long term (current) use of oral hypoglycemic drugs; Z79.4 Long term (current) use of insulin; Z77.22 Contact with and (suspected) exposure to environmental tobacco smoke (acute) (chronic); I44.0 Atrioventricular block, first degree; I44.7 Left bundle-branch block, unspecified
CPT/HCPCS: 36415; 70450; 71046; 80053; 81001; 83690; 83880; 84484; 85025; 85610; 85730; 87086; 87088; 87637; 93005; 96365; 96366; 99284; A9270; J1956; J7040

== ENCOUNTER 2024-05-21 08:15 | Outpatient (CLI) | payer MEDICARE, SELFPAY ==
[2024-05-21 08:58] LABS: Basophils Percent Auto 0.6 % (0.2-1.2); Eosinophils Absolute Auto 0.3 K/mm3 (0-0.3); Eosinophils Percent Auto 5.1 % (0-4.4); Hematocrit 32.6 % (37.0-47.0); Hemoglobin 10.3 g/dL (12.0-15.0); Immature Granulocyte Absolute 0.01 K/mm3 (0.00-0.031); Immature Granulocyte Percent A 0.2 % (0-0.5); Lymphocytes Absolute Auto 1.05 K/mm3 (0.9-3.2); Lymphocytes Percent Auto 20.7 % (18.3-44.2); Mean Corpuscular HGB Conc 31.6 g/dl (32-36); Mean Corpuscular Hemoglobin 33.6 pg (26-34); Mean Corpuscular Volume 106.2 fl (80-100); Monocytes Absolute Auto 0.3 K/mm3 (0.1-0.6); Monocytes Percent Auto 5.7 % (2.6-8.5); Neutrophils Absolute Auto 3.4 K/mm3 (1.3-6.7); Neutrophils Percent Auto 67.7 % (45.5-73.1); Platelet Count Result 203 k/mm3 (150-375); Red Blood Count 3.07 M/mm3 (4.2-5.4); Red Cell Distribution Width 16.3 % (11.5-14.5); White Blood Count 5.1 K/mm3 (4.5-10.0)
[2024-05-21 09:17] LABS: Alanine Aminotransferase 14 U/L (6-35); Albumin Level 3.8 g/dL (3.5-5.1); Alkaline Phosphatase 56 U/L (38-126); Anion Gap 11 mmol/L (4-12); Aspartate Amino Transferase 25 U/L (14-36); Bilirubin,Total 0.5 mg/dL (0.2-1.3); Blood Urea Nitrogen 53 mg/dL (7-17); Calcium 8.7 mg/dL (8.4-10.2); Carbon Dioxide 27 mmol/L (22-30); Chloride 102 mmol/L (98-107); Estimated Glomerular Filt Rate 12; Glucose 130 mg/dL (65-110); Phosphorus 5.2 mg/dL (2.5-4.5); Potassium 4.2 mmol/L (3.4-5.0); Sodium 140 mmol/L (137-145)
[2024-05-21 09:54] LABS: Creatinine Urine 74.2 mg/dL; Total Protein Urine Random 58 mg/dL; Ur Ttl Prot Creatinine Ratio 0.78 mg/mg (0-0.20)
[2024-05-21 09:56] LABS: Creatinine Urine 74.1 mg/dL
[2024-05-21 10:05] LABS: Parathyroid Intact 126.9 pg/mL (7.5-53.5)
[2024-05-21 10:13] LABS: MALB Creatinine Ratio 323.9 mg/g (0-30)
[2024-05-21 10:25] LABS: Vitamin D 25 Hydroxy 51.2 ng/mL
[2024-05-21 10:35] LABS: Hemoglobin A1C 7.4 % (<5.7)
[2024-05-21 10:47] LABS: Hypochromasia 1+; Macrocytosis 1+ (NORMAL); Platelet Estimate Adequate (Adequate); Schistocytes None Seen
== END 2024-05-21 08:16 | disposition home or self-care (01) ==
PROVIDERS: Family Medicine; PCP Registered Nurse; Referring Provider Registered Nurse; Visit Provider Internal Medicine Nephrology
DX: D64.9 Anemia, unspecified (principal); E11.9 Type 2 diabetes mellitus without complications; I12.9 Hypertensive chronic kidney disease with stage 1 through stage 4 chronic kidney disease, or unspecified chronic kidney disease; N18.4 Chronic kidney disease, stage 4 (severe); E21.1 Secondary hyperparathyroidism, not elsewhere classified
CPT/HCPCS: 36415; 80053; 82043; 82306; 82570; 83036; 83970; 84100; 84156; 85025

== ENCOUNTER 2024-05-23 15:21 | Observation (INO) | payer MEDICARE, SELFPAY ==
[2024-05-23] VITALS (8 sets, daily range): BP systolic 104–149; BP diastolic 62–74; PULSE 61–79; RESP 12–18; TEMP 36.4; O2SAT 98–100; BMI 32.0
--- NOTE | ~2024-05-23 | XR_ITS ---
XR chest 1V portable 05/23/2024 16:45 Indication: Low blood pressure Procedure: AP portable chest Comparison: Comparison to multiple prior studies sequentially, with oldest reviewed study dated 09/08. Findings: Borderline heart size. No focal air space disease, pulmonary edema, pleural effusion or sebastián pected pneumothorax. Possible small left effusion. No pneumothorax. No acute osseous abnormality. Impression: 1: Possible small left pleural effusion. Otherwise, no acute cardiopulmonary disease. Reviewed, dictated and finalized at location B. Impression: 1: Possible small left pleural effusion. Otherwise, no acute cardiopulmonary di sease.
[2024-05-23 16:23] LABS: Basophils Percent Auto 0.7 % (0.2-1.2); Eosinophils Absolute Auto 0.2 K/mm3 (0-0.3); Eosinophils Percent Auto 3.6 % (0-4.4); Hemoglobin 10.1 g/dL (12.0-15.0); Immature Granulocyte Absolute 0.01 K/mm3 (0.00-0.031); Immature Granulocyte Percent A 0.2 % (0-0.5); Lymphocytes Absolute Auto 0.86 K/mm3 (0.9-3.2); Lymphocytes Percent Auto 20.9 % (18.3-44.2); Mean Corpuscular HGB Conc 32.6 g/dl (32-36); Mean Corpuscular Volume 104.4 fl (80-100); Mean Platelet Volume 9.6 fl (7.4-10.4); Monocytes Absolute Auto 0.3 K/mm3 (0.1-0.6); Monocytes Percent Auto 6.8 % (2.6-8.5); Neutrophils Absolute Auto 2.8 K/mm3 (1.3-6.7); Neutrophils Percent Auto 67.8 % (45.5-73.1); Platelet Count Result 234 k/mm3 (150-375); Red Blood Count 2.97 M/mm3 (4.2-5.4); Red Cell Distribution Width 16.1 % (11.5-14.5); White Blood Count 4.1 K/mm3 (4.5-10.0)
[2024-05-23 16:34] LABS: Alanine Aminotransferase 14 U/L (6-35); Albumin Level 3.7 g/dL (3.5-5.1); Alkaline Phosphatase 59 U/L (38-126); Anion Gap 11 mmol/L (4-12); Aspartate Amino Transferase 25 U/L (14-36); Bilirubin,Total 0.6 mg/dL (0.2-1.3); Blood Urea Nitrogen 57 mg/dL (7-17); Calcium 9.2 mg/dL (8.4-10.2); Carbon Dioxide 25 mmol/L (22-30); Chloride 101 mmol/L (98-107); Estimated CRCL calculation 13 ml/min; Estimated Glomerular Filt Rate 12; Glucose 166 mg/dL (65-110); Potassium 4.5 mmol/L (3.4-5.0); Sodium 137 mmol/L (137-145)
[2024-05-23 16:36] LABS: Lactic Acid Reflex 0.9 mmol/L (0.7-2.0)
[2024-05-23 17:00] LABS: Influenza A QL RT-PCR Negative (Negative); Influenza B QL RT-PCR Negative (Negative); RSV RNA, RT-PCR Negative (Negative); SARS-CoV-2 RNA PCR Negative (Negative)
[2024-05-23 17:29] LABS: Appearance Urine Clear (Clear); Bacteria Urine None Seen /hpf; Bilirubin Urine Negative (Negative); Blood Urine Negative (Negative); Color Urine Yellow (Yellow); Glucose Urine UA Negative (Negative); Ketones Urine Negative (Negative); Leukocyte Esterase Ur 2+ LEU/UL (Negative); Need Manual Microscopic Reviewed; Nitrate Urine Negative (Negative); Protein Urine Trace mg/dL (Negative); RBC Urine 0-2 /hpf (0-2); Specific Grav Ur 1.016 (1.001-1.035); Squamous Epithelial Cell Urine Few /hpf (Few); Urobilinogen Urine 0.2 mg/dL (<2.0)
[2024-05-23 17:31] LABS: Add Urine Microscopic? YES
--- NOTE | 2024-05-23 17:57 | ED.GENADULT ---
HPI - General Adult General Chief complaint: Weakness Stated complaint: low bp, weakness Time Seen by Provider: 05/23/24 15:46 History of Present Illness HPI narrative: This is a 78-year-old female sent from her followed his office for low blood pressures. Patient had a UTI and was treated 2 weeks ago. Patient is still complaining of pressure when she urinates and increased urinary frequency. She becomes dizzy when standing. Patient feels she has never bounced back and is still feeling very weak and lethargic since then. No findings such as fevers, chills, nausea,vomiting, diarrhea, chest pain, difficulty breathing. She was at Dr. Carrillo is a office and she had 2 blood pressure readings at 70/40. She was then sent to the ED for further workup. Related Data Home Medications Medication Instructions Recorded Confirmed gabapentin 300 mg capsule 300 mg PO TID 12/07/19 04/12/24 ergocalciferol (vitamin D2) 1,250 1,250 mcg PO WEEKLY 02/22/21 04/12/24 mcg (50,000 unit) capsule docusate sodium 100 mg capsule 1 cap PO DAILY 05/04/22 04/12/24 dicyclomine 10 mg capsule 10 mg PO TID PRN Abdominal 03/27/23 04/12/24 Discomfort allopurinol 100 mg tablet 100 mg PO DAILY 09/15/23 04/12/24 atorvastatin 80 mg tablet 80 mg PO HS 09/15/23 04/12/24 ezetimibe 10 mg tablet 10 mg PO DAILY 09/15/23 04/12/24 fenofibrate 160 mg tablet 160 mg PO DAILY 09/15/23 04/12/24 hydrocodone 10 mg-acetaminophen 10 tablet PO Q8H PRN Pain (Scale 09/15/23 04/12/24 325 mg tablet Score 4-6) insulin lispro 100 unit/mL See Rx Instructions .Route 09/15/23 04/12/24 subcutaneous pen (Humalog KwikPen .COMPLEX PRN Hyperglycemia (U-100) Insulin) melatonin 5 mg tablet 5 mg PO HS 09/15/23 04/12/24 sitagliptin phosphate 25 mg tablet 25 mg PO DAILY 09/15/23 04/12/24 (Januvia) acetaminophen 500 mg capsule 500 mg PO Q6H 09/26/23 04/12/24 amiodarone 200 mg tablet 200 mg PO DAILY 01/16/24 04/12/24 apixaban 5 mg tablet (Eliquis) 5 mg PO Q12H 01/16/24 04/12/24 Allergies Allergy/AdvReac Type Severity Reaction Status Date / Time ceftriaxone Allergy Unknown Anaphylaxis Verified 05/23/24 15:45 clindamycin Allergy Unknown Anaphylaxis Verified 05/23/24 15:45 Penicillins Allergy Unknown Hives Verified 05/23/24 15:45 morphine AdvReac Unknown Vomiting Verified 05/23/24 15:45 nitroglycerin AdvReac Unknown Headache Verified 05/23/24 15:45 [facility] Past Medical History Medical History Anemia of chronic disease Cerebrovascular accident 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 Cholelithiasis Chronic anticoagulation Congestive heart failure History of reduced ejection fraction with improvement in EF to 55% on most recent echo. Diastolic dysfunction also noted. 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 Depression with anxiety Diabetic peripheral neuropathy Dyslipidemia Essential hypertension Fibromyalgia Gastroesophageal reflux disease History of peptic ulcer Hypersomnia Insulin dependent type 2 diabetes mellitus Obstructive sleep apnea Obstructive sleep apnea on CPAP Osteoarthritis Paroxysmal atrial flutter Stage III chronic kidney disease Baseline creatinine ranges between 1.3 and 1.60. Vitamin D deficiency Surgical History Surgical History History of appendectomy History of cardiac catheterization (07/2013) Normal coronaries although anomalous left coronary artery arising from the right ostium was noted. History of hysterectomy (1979) History of left breast biopsy Benign pathology. Family History Family History Father Malignant neoplasm of prostate Heart disease Mother Esophageal cancer Sibling Diabetes mellitus Daughter Alcoholism Soc
[2024-05-23] MEDS: HYDROcodone/acetaminophen (*CRX) 5-325 MG TABLET 2 TAB PO (18:16)
[2024-05-23] MEDS: SODIUM CHLORIDE 0.9% IV 1,000 ML 999 ML IV CONT (18:16)
[2024-05-23 19:42] LABS: Glucose Point of Care 119 mg/dl (65-105)
--- NOTE | 2024-05-23 20:10 | ADMGEN ---
This patient, Sarah Alvarado, was admitted to Medical Room 345-01. Patient/family oriented to hospital policies and general routines including ID bracelet, bed and alarms, visiting hours, pain management, procedures, bathroom and other care routines, personal items, smoking policy, room service/diet, and visiting hours. Information on how to activate the Rapid Response Team has been discussed. Patient/Family are encouraged to report perceived risks to care and to ask questions if they do not understand what they are told or what they should do.
[2024-05-23] MEDS: LACTATED RINGERS 1,000 ML 100 ML IV CONT (20:48)
--- NOTE | 2024-05-23 21:59 | PM.IMHP ---
H&P: HPI History of Present Illness Date/Time: 05/23/24 19:15 Chief Complaint: Low blood pressure. Narrative: This is a pleasant 78-year-old female?with multiple medical problems including transient ischemic attack, cerebrovascular accident, congestive heart failure, hypertension, dyslipidemia, diabetes, chronic kidney disease, anemia, sleep apnea, and other comorbidities who presented to the emergency department from Dr. Carrillo's office for evaluation after she was found of low blood pressure. The patient provides the following history. She has not been feeling well for several weeks and was seen in the ED on 05/10/2024 with complaints of weakness, fatigue, and dizziness. Her blood pressures were low at that time but did respond IV fluids. Her urine was concerning for UTI and she was started on antibiotics however urine culture was negative. She was offered admission but preferred to go home. Today she had an appointment with Dr. Carrillo and she was directed to the ED as her blood pressures were running quite low. With further questioning she admits that she continues to feel weak. She also has urinary frequency and pressure with urination but she denies overt dysuria. Appetite has been fair but she denies nausea, vomiting, and diarrhea. She has occasional lightheadedness and dizziness with position changes but denies syncope near syncope. She has lost about 40 lb and was recently taking off of insulin. She has not had any other medication changes. She denies fever, chills, sweats, chest pain, shortness off breath, cough, abdominal pain, and diarrhea. In the ED: She was afebrile on arrival with a blood pressure of 76/50. Labs were significant for WBC count of 4.1, hemoglobin 10.1, MCV 104.4, platelet 234, BUN 57, creatinine 3.80, lactic acid 0.9. Urine was positive for 2+ leukocyte esterase, 11 to 20 WBC, few squamous cells, and 11 to 20 casts; no bacteria were seen on microscopy. She tested negative for influenza, RSV, and COVID. Chest x-ray showed possible small left pleural effusion otherwise no acute cardiopulmonary disease. She was given and IV fluid bolus with improvement in her blood pressures and she is being admitted in this setting for further hydration. Review of Systems Review of Systems: 12 systems were reviewed and are negative except for as per HPI. [facility] Past Medical History Medical History (Updated 05/23/24 @ 22:12 by Rubi Crisostomo PA-C) Anemia of chronic disease Cerebrovascular accident 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 Cholelithiasis Chronic anticoagulation Congestive heart failure History of reduced ejection fraction with improvement in EF to 55% on most recent echo. Diastolic dysfunction also noted. 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 Depression with anxiety Diabetic peripheral neuropathy Dyslipidemia Essential hypertension Fibromyalgia Gastroesophageal reflux disease Hypersomnia Obstructive sleep apnea on CPAP Osteoarthritis Paroxysmal atrial flutter Peptic ulcer Stage III chronic kidney disease Baseline creatinine ranges between 1.3 and 1.60. Type 2 diabetes mellitus Vitamin D deficiency Surgical History Surgical History History of appendectomy History of cardiac catheterization (07/2013) Normal coronaries although anomalous left coronary artery arising from the right ostium was noted. History of hysterectomy (1979) History of left breast biopsy Benign pathology. Family History Family History Father Malignant neoplasm of prostate Heart disease Mother Esophageal cancer Sibling Diabetes mellitus Daughter Alcoholism Social History Social History (Updated 05/23/24 @ 22:10 by Rubi Crisostomo PA-C) Social
[2024-05-23] MEDS: APIXABAN 5 MG TABLET PO (22:21)
[2024-05-23] MEDS: MELATONIN 5 MG TABLET PO (22:22)
[2024-05-24] VITALS (7 sets, daily range): BP systolic 113–137; BP diastolic 54–87; PULSE 54–69; RESP 16–18; TEMP 36.1–36.8; O2SAT 96–98
[2024-05-24] MEDS: HYDROcodone/acetaminophen (*CRX) 10-325 MG TABLET 1 TAB PO ×3 (02:48→19:58)
[2024-05-24 05:45] LABS: Hematocrit 28.7 % (37.0-47.0); Hemoglobin 9.2 g/dL (12.0-15.0); Mean Corpuscular HGB Conc 32.1 g/dl (32-36); Mean Corpuscular Hemoglobin 33.8 pg (26-34); Mean Corpuscular Volume 105.5 fl (80-100); Mean Platelet Volume 9.7 fl (7.4-10.4); Platelet Count Result 209 k/mm3 (150-375); Red Blood Count 2.72 M/mm3 (4.2-5.4); Red Cell Distribution Width 16.3 % (11.5-14.5); White Blood Count 4.2 K/mm3 (4.5-10.0)
[2024-05-24 05:59] LABS: Anion Gap 9 mmol/L (4-12); Blood Urea Nitrogen 56 mg/dL (7-17); Calcium 8.4 mg/dL (8.4-10.2); Carbon Dioxide 24 mmol/L (22-30); Chloride 104 mmol/L (98-107); Estimated CRCL calculation 15 ml/min; Estimated Glomerular Filt Rate 13; Glucose 113 mg/dL (65-110); Magnesium 2.1 mg/dL (1.6-2.3); Sodium 137 mmol/L (137-145)
[2024-05-24 06:03] LABS: Creatinine Urine 66.8 mg/dL; Total Protein Urine Random 35 mg/dL; Ur Ttl Prot Creatinine Ratio 0.52 mg/mg (0-0.20); Urea Random Urine 543 MG/DL
[2024-05-24 06:05] LABS: Sodium Urine Random 85 meq/L
[2024-05-24 06:53] LABS: Eosinophil Urine Rare % (None Seen); Urine Eos QC TLT
[2024-05-24 07:04] LABS: Creatine Kinase 57 U/L (30-135)
[2024-05-24 07:25] LABS: Cortisol Random 6.84 ug/dL
[2024-05-24] MEDS: DOCUSATE SODIUM 100 MG CAPSULE PO (08:10)
[2024-05-24] MEDS: EZETIMIBE 10 MG TABLET PO (08:10)
[2024-05-24] MEDS: GABAPENTIN 300 MG CAPSULE PO ×3 (08:10→17:29)
[2024-05-24] MEDS: AMIODARONE HCL 200 MG TABLET PO (08:10)
[2024-05-24] MEDS: allopurinoL 100 MG TABLET PO (08:10)
[2024-05-24] MEDS: FAMOTIDINE 20 MG TABLET PO ×2 (08:11→19:58)
[2024-05-24] MEDS: carvediloL 12.5 MG TABLET PO ×2 (08:11→19:59)
[2024-05-24] MEDS: TAMSULOSIN HCL 0.4 MG CAPSULE PO (08:11)
[2024-05-24] MEDS: APIXABAN 5 MG TABLET PO ×2 (08:11→19:59)
[2024-05-24] MEDS: SITagliptin PHOSPHATE 25 MG TABLET PO (08:12)
[2024-05-24 08:14] LABS: Glucose Point of Care 103 mg/dl (65-105)
--- NOTE | 2024-05-24 10:34 | PM.IMPN ---
Progress Note: A&P Assessment and Plan (1) Hypotension: Code(s): I95.9 - Hypotension, unspecified Status: Acute (2) Acute on chronic kidney failure: Code(s): N17.9 - Acute kidney failure, unspecified; N18.9 - Chronic kidney disease, unspecified Status: Acute (3) Anemia of chronic disease: Code(s): D63.8 - Anemia in other chronic diseases classified elsewhere Status: Acute (4) Chronic obstructive pulmonary disease: Code(s): J44.9 - Chronic obstructive pulmonary disease, unspecified Status: Chronic (5) Congestive heart failure: Code(s): I50.9 - Heart failure, unspecified Status: Acute (6) Essential hypertension: Code(s): I10 - Essential (primary) hypertension Status: Chronic (7) Obstructive sleep apnea on CPAP: Code(s): G47.33 - Obstructive sleep apnea (adult) (pediatric); Z99.89 - Dependence on other enabling machines and devices Status: Chronic (8) Type 2 diabetes mellitus: Code(s): E11.9 - Type 2 diabetes mellitus without complications Status: Acute (9) Chronic anticoagulation: Code(s): Z79.01 - intermediate (current) use of anticoagulants Status: Acute Plan - acute on chronic kidney injury which may be due to decreased oral intake however she has reported loss 40 lb and she may not need as high of a dose of her medications. She will be judiciously hydrated with close monitoring of volume status, renal function, and electrolytes. Avoid over-hydration given history of CHF. She does not appear to have an underlying infection. Anemia is stable on review of previous labs. No evidence to suggest COPD exacerbation. Initiate sliding scale insulin, Accu-Cheks, and hypoglycemic protocol. CPAP will be provided for the patient to use while hospitalized. Time Spent With Patient Time with patient: 25 - 35 minutes Subjective Date/time seen: 05/24/24 10:34 Interval history: Narrative retrieved from H/P: This is a pleasant 78-year-old female?with multiple medical problems including transient ischemic attack, cerebrovascular accident, congestive heart failure, hypertension, dyslipidemia, diabetes, chronic kidney disease, anemia, sleep apnea, and other comorbidities who presented to the emergency department from Dr. Carrillo's office for evaluation after she was found of low blood pressure. The patient provides the following history. She has not been feeling well for several weeks and was seen in the ED on 05/10/2024 with complaints of weakness, fatigue, and dizziness. Her blood pressures were low at that time but did respond IV fluids. Her urine was concerning for UTI and she was started on antibiotics however urine culture was negative. She was offered admission but preferred to go home. Today she had an appointment with Dr. Carrillo and she was directed to the ED as her blood pressures were running quite low. With further questioning she admits that she continues to feel weak. She also has urinary frequency and pressure with urination but she denies overt dysuria. Appetite has been fair but she denies nausea, vomiting, and diarrhea. She has occasional lightheadedness and dizziness with position changes but denies syncope near syncope. She has lost about 40 lb and was recently taking off of insulin. She has not had any other medication changes. She denies fever, chills, sweats, chest pain, shortness off breath, cough, abdominal pain, and diarrhea. In the ED: She was afebrile on arrival with a blood pressure of 76/50. Labs were significant for WBC count of 4.1, hemoglobin 10.1, MCV 104.4, platelet 234, BUN 57, creatinine 3.80, lactic acid 0.9. Urine was positive for 2+ leukocyte esterase, 11 to 20 WBC, few squamous cells, and 11 to 20 casts; no bacteria were seen on microscopy. She tested negative for influenza, RSV, and COVID. Chest x-ray showed possible small left pleural effusion otherwise no acute cardiopulmonary disease. She was given and IV fluid
[2024-05-24] MEDS: LACTATED RINGERS 1,000 ML 100 ML IV CONT ×2 (10:50→20:00)
[2024-05-24 12:12] LABS: Glucose Point of Care 87 mg/dl (65-105)
--- NOTE | 2024-05-24 12:55 | P.CONNP_ITS ---
Assessment and Plan Assessment and plan (1) LIV (acute kidney injury): Code(s): N17.9 - Acute kidney failure, unspecified Status: Acute Assessment and Plan: * presumably related to hypotension and volume depletion * mild improvement noted with IVF resuscitation * diuretics on hold * evaluation to date: * urine electrolytes (by FeUrea) prerenal * UA with some inflammation/pyuria * urine eosinophils rare (due to inflammation?) * CPK normal * no imaging done * continue trial of IVFs * monitor orthostatics * follow trend of repeat labs and UOP * consider further imaging if renal function fails to improve (2) Chronic kidney disease, stage IV (severe): Code(s): N18.4 - Chronic kidney disease, stage 4 (severe) Status: Chronic Assessment and Plan: * evidence of CKD that dates back to 2018 with slow progression of disease... * initially had been ~ 1.4 - 1.8mg/dl * then augustine to ~ 1.9 - 2.1mg/dl since early 2021 * was in the range of 2.0 - 2.5mg/dl in 2022 * more recently, seems to running ~ 2.5 - 3.0mg/dl * due to HTN, DM, vascular disease, SUZANNE, and age-related change based on outpatient evaluation * follows with Dr. Carrillo for management of CKD (3) Hypotension: Code(s): I95.9 - Hypotension, unspecified Status: Acute Assessment and Plan: * improvement noted * due to volume depletion likely worsened by ongoing diuretic and anti-HTN medication use coupled with weight loss * holding BP medications * agree with IVFs * follow respiratory and voume status closely (known history of diastolic heart failure) (4) SUZANNE (obstructive sleep apnea): Code(s): G47.33 - Obstructive sleep apnea (adult) (pediatric) Status: Acute Assessment and Plan: * continue use of CPAP (5) Diabetes: Code(s): E11.9 - Type 2 diabetes mellitus without complications Status: Chronic Assessment and Plan: * follow accuchecks * glycemic control per hospitalists I will continue follow the patient with you while she remains hospitalized and make further recommendations as needed. Thank you for allowing me to participate in the care this patient. History of Present Illness Reason for Consult Consult date: 05/24/24 Reason for consult: acute renal failure (on chronic kidney disease) Chief Complaint Chief complaint: Acute on Chronic Kidney Disease History of Present Illness Narrative: The patient is a 78-year-old female with multiple medical problems as outlined below who presented to [facility] Emergency room from Dr. Carrillo's clinic/office for further evaluation of hypotension. The patient states that she has not been feeling very well for last several weeks and was actually seen at [facility] Emergency room about two weeks ago for this issue. She had complaints of weakness, fatigue, and dizziness and her blood pressures were apparently somewhat low at that time as well. She received IV fluids and it was noted that her urine was concerning for possible urinary tract infection and she was prescribed antibiotics . Hospitalization/admission was offered to the patient but she preferred to go home. She presented to Dr. Carrillo so office for her scheduled appointment yesterday and it was noted that she was still quite hypotensive on his visit. Her blood pressure was checked several times including at the end of the appointment and it was still in the 70 systolic and she was subsequently directed to the emergency room given this finding. Other associated symptoms inclu
--- NOTE | 2024-05-24 12:55 | PM.CNNEP ---
Assessment and Plan Assessment and plan (1) LIV (acute kidney injury): Code(s): N17.9 - Acute kidney failure, unspecified Status: Acute Assessment and Plan: presumably related to hypotension and volume depletion mild improvement noted with IVF resuscitation diuretics on hold evaluation to date: urine electrolytes (by FeUrea) prerenal UA with some inflammation/pyuria urine eosinophils rare (due to inflammation?) CPK normal no imaging done continue trial of IVFs monitor orthostatics follow trend of repeat labs and UOP consider further imaging if renal function fails to improve (2) Chronic kidney disease, stage IV (severe): Code(s): N18.4 - Chronic kidney disease, stage 4 (severe) Status: Chronic Assessment and Plan: evidence of CKD that dates back to 2018 with slow progression of disease... initially had been ~ 1.4 - 1.8mg/dl then augustine to ~ 1.9 - 2.1mg/dl since early 2021 was in the range of 2.0 - 2.5mg/dl in 2022 more recently, seems to running ~ 2.5 - 3.0mg/dl due to HTN, DM, vascular disease, SUZANNE, and age-related change based on outpatient evaluation follows with Dr. Carrillo for management of CKD (3) Hypotension: Code(s): I95.9 - Hypotension, unspecified Status: Acute Assessment and Plan: improvement noted due to volume depletion likely worsened by ongoing diuretic and anti-HTN medication use coupled with weight loss holding BP medications agree with IVFs follow respiratory and voume status closely (known history of diastolic heart failure) (4) SUZANNE (obstructive sleep apnea): Code(s): G47.33 - Obstructive sleep apnea (adult) (pediatric) Status: Acute Assessment and Plan: continue use of CPAP (5) Diabetes: Code(s): E11.9 - Type 2 diabetes mellitus without complications Status: Chronic Assessment and Plan: follow accuchecks glycemic control per hospitalists I will continue follow the patient with you while she remains hospitalized and make further recommendations as needed. Thank you for allowing me to participate in the care this patient. History of Present Illness Reason for Consult Consult date: 05/24/24 Reason for consult: acute renal failure (on chronic kidney disease) Chief Complaint Chief complaint: Acute on Chronic Kidney Disease History of Present Illness Narrative: The patient is a 78-year-old female with multiple medical problems as outlined below who presented to [facility] Emergency room from Dr. Carrillo's clinic/office for further evaluation of hypotension. The patient states that she has not been feeling very well for last several weeks and was actually seen at [facility] Emergency room about two weeks ago for this issue. She had complaints of weakness, fatigue, and dizziness and her blood pressures were apparently somewhat low at that time as well. She received IV fluids and it was noted that her urine was concerning for possible urinary tract infection and she was prescribed antibiotics . Hospitalization/admission was offered to the patient but she preferred to go home. She presented to Dr. Carrillo so office for her scheduled appointment yesterday and it was noted that she was still quite hypotensive on his visit. Her blood pressure was checked several times including at the end of the appointment and it was still in the 70 systolic and she was subsequently directed to the emergency room given this finding. Other associated symptoms included ongoing weakness, increased urinary frequency /pressure, lightheadedness, and dizziness. She denies any symptoms of chest pain, shortness of breath, syncope, palpitations, nausea, vomiting, or diarrhea. Workup and evaluation in the emergency room confirmed her hypotension with a systolic BP in the mid 70s range. Routine blood test demonstrated a normal white blood cell count and stable hemoglobin and her evens
[2024-05-24 16:47] LABS: Glucose Point of Care 119 mg/dl (65-105)
[2024-05-24] MEDS: TOLNAFTATE 1% POWDER 45 GM BTL 1 APPLIC TOPICAL ×2 (17:27→19:59)
[2024-05-24] MEDS: ACETAMINOPHEN 500 MG TABLET PO (17:28)
[2024-05-24] MEDS: ATORVASTATIN 40 MG TABLET 80 MG PO (19:58)
[2024-05-24] MEDS: MELATONIN 5 MG TABLET PO (19:58)
[2024-05-24 20:21] LABS: Glucose Point of Care 154 mg/dl (65-105)
[2024-05-25] VITALS (11 sets, daily range): BP systolic 104–142; BP diastolic 50–75; PULSE 69–76; RESP 16–18; TEMP 36.3–36.6; O2SAT 98–99
[2024-05-25] MEDS: HYDROcodone/acetaminophen (*CRX) 10-325 MG TABLET 1 TAB PO ×3 (06:08→22:04)
[2024-05-25] MEDS: LACTATED RINGERS 1,000 ML 100 ML IV CONT (06:10)
[2024-05-25 07:54] LABS: Glucose Point of Care 118 mg/dl (65-105)
[2024-05-25] MEDS: APIXABAN 5 MG TABLET PO ×2 (08:28→22:04)
[2024-05-25] MEDS: SITagliptin PHOSPHATE 25 MG TABLET PO (08:28)
[2024-05-25] MEDS: DOCUSATE SODIUM 100 MG CAPSULE PO (08:28)
[2024-05-25] MEDS: GABAPENTIN 300 MG CAPSULE PO ×3 (08:28→17:34)
[2024-05-25] MEDS: FAMOTIDINE 20 MG TABLET PO ×2 (08:28→22:05)
[2024-05-25] MEDS: EZETIMIBE 10 MG TABLET PO (08:28)
[2024-05-25] MEDS: allopurinoL 100 MG TABLET PO (08:28)
[2024-05-25] MEDS: AMIODARONE HCL 200 MG TABLET PO (08:28)
[2024-05-25] MEDS: TAMSULOSIN HCL 0.4 MG CAPSULE PO (08:28)
[2024-05-25] MEDS: carvediloL 12.5 MG TABLET PO ×2 (08:29→22:03)
[2024-05-25 08:31] LABS: Anion Gap 8 mmol/L (4-12); Blood Urea Nitrogen 49 mg/dL (7-17); Carbon Dioxide 24 mmol/L (22-30); Chloride 105 mmol/L (98-107); Estimated CRCL calculation 17 ml/min; Estimated Glomerular Filt Rate 15; Glucose 108 mg/dL (65-110); Phosphorus 4.3 mg/dL (2.5-4.5); Potassium 4.3 mmol/L (3.4-5.0); Sodium 137 mmol/L (137-145)
--- NOTE | 2024-05-25 09:06 | PM.IMPN ---
Progress Note: A&P Assessment and Plan (1) Hypotension: Code(s): I95.9 - Hypotension, unspecified Status: Acute Assessment and Plan: - dehydration/volume depletion - likely worsen with diuretics and weight loss, in addition to anti htn meds - hold HTN meds for now - continue IV hydration- close monitor of resp/card status as diastaltic CHF (2) Acute on chronic kidney failure: Code(s): N17.9 - Acute kidney failure, unspecified; N18.9 - Chronic kidney disease, unspecified Status: Acute Assessment and Plan: -very likely due to hypotention/volume depletion - diuretics on hold, holding HTN meds - nephrology was consulted- appreciate recommendations - BP improved- labs stable- continue to monitor (3) Anemia of chronic disease: Code(s): D63.8 - Anemia in other chronic diseases classified elsewhere Status: Acute (4) Chronic obstructive pulmonary disease: Code(s): J44.9 - Chronic obstructive pulmonary disease, unspecified Status: Chronic (5) Congestive heart failure: Code(s): I50.9 - Heart failure, unspecified Status: Acute (6) Essential hypertension: Code(s): I10 - Essential (primary) hypertension Status: Chronic (7) Obstructive sleep apnea on CPAP: Code(s): G47.33 - Obstructive sleep apnea (adult) (pediatric); Z99.89 - Dependence on other enabling machines and devices Status: Chronic Assessment and Plan: -continue Cpap (8) Type 2 diabetes mellitus: Code(s): E11.9 - Type 2 diabetes mellitus without complications Status: Acute Assessment and Plan: - diabetic diet, hypoglycemia protocol, accucheck ac/hs (9) Chronic anticoagulation: Code(s): Z79.01 - joint terminal attack controller (current) use of anticoagulants Status: Acute Time Spent With Patient Time with patient: 25 - 35 minutes Subjective Date/time seen: 05/25/24 09:06 Interval history: Narrative retrieved from H/P: This is a pleasant 78-year-old female?with multiple medical problems including transient ischemic attack, cerebrovascular accident, congestive heart failure, hypertension, dyslipidemia, diabetes, chronic kidney disease, anemia, sleep apnea, and other comorbidities who presented to the emergency department from Dr. Carrillo's office for evaluation after she was found of low blood pressure. The patient provides the following history. She has not been feeling well for several weeks and was seen in the ED on 05/10/2024 with complaints of weakness, fatigue, and dizziness. Her blood pressures were low at that time but did respond IV fluids. Her urine was concerning for UTI and she was started on antibiotics however urine culture was negative. She was offered admission but preferred to go home. Today she had an appointment with Dr. Carrillo and she was directed to the ED as her blood pressures were running quite low. With further questioning she admits that she continues to feel weak. She also has urinary frequency and pressure with urination but she denies overt dysuria. Appetite has been fair but she denies nausea, vomiting, and diarrhea. She has occasional lightheadedness and dizziness with position changes but denies syncope near syncope. She has lost about 40 lb and was recently taking off of insulin. She has not had any other medication changes. She denies fever, chills, sweats, chest pain, shortness off breath, cough, abdominal pain, and diarrhea. In the ED: She was afebrile on arrival with a blood pressure of 76/50. Labs were significant for WBC count of 4.1, hemoglobin 10.1, MCV 104.4, platelet 234, BUN 57, creatinine 3.80, lactic acid 0.9. Urine was positive for 2+ leukocyte esterase, 11 to 20 WBC, few squamous cells, and 11 to 20 casts; no bacteria were seen on microscopy. She tested negative for influenza, RSV, and COVID. Chest x-ray showed possible small left pleural effusion otherwise no acute cardiopulmonary disease. She was given and IV fluid bolus with im
[2024-05-25 11:44] LABS: Glucose Point of Care 155 mg/dl (65-105)
--- NOTE | 2024-05-25 12:39 | P.PNNP_ITS ---
Progress Note: A&P Assessment and Plan (1) LIV (acute kidney injury): Code(s): N17.9 - Acute kidney failure, unspecified Status: Acute Assessment and Plan: * presumably related to hypotension and volume depletion * mild improvement noted with IVF resuscitation * GFR baseline is around 15 and she is there now * diuretics on hold * Getting some IV fluids currently. * evaluation to date: * urine electrolytes (by FeUrea) prerenal * UA with some inflammation/pyuria * urine eosinophils rare (due to inflammation?) * CPK normal * no imaging done * continue with IVFs * monitor orthostatics. One to be done today. * follow trend of repeat labs and UOP * (2) Chronic kidney disease, stage IV (severe): Code(s): N18.4 - Chronic kidney disease, stage 4 (severe) Status: Chronic Assessment and Plan: * evidence of CKD that dates back to 2018 with slow progression of disease... * initially had been ~ 1.4 - 1.8mg/dl * then augustine to ~ 1.9 - 2.1mg/dl since early 2021 * was in the range of 2.0 - 2.5mg/dl in 2022 * more recently, seems to running ~ 2.5 - 3.0mg/dl * due to HTN, DM, vascular disease, SUZANNE, and age-related change based on outpatient evaluation (3) Hypotension: Code(s): I95.9 - Hypotension, unspecified Status: Acute Assessment and Plan: * improvement noted * due to volume depletion likely worsened by ongoing diuretic and anti-HTN medication use coupled with weight loss * holding BP medications * agree with IVFs * Follow blood pressure and orthostatics as we go forward (4) SUZANNE (obstructive sleep apnea): Code(s): G47.33 - Obstructive sleep apnea (adult) (pediatric) Status: Acute Assessment and Plan: * continue use of CPAP (5) Diabetes: Code(s): E11.9 - Type 2 diabetes mellitus without complications Status: Chronic Assessment and Plan: * follow accuchecks * glycemic control per hospitalists Subjective Date/time seen: 05/25/24 12:39 Interval history: Patient is feeling okay. Still a little dizzy on standing. Will be getting an orthostatic blood pressure readings soon No chest pain or shortness of breath Eating okay Review of Systems Cardiovascular: Cardiovascular: Reports no additional cardiovascular complaints Respiratory: Respiratory: Reports no additional respiratory complaints Gastrointestinal: Gastrointestinal: Reports no additional gastrointestinal complaints Genitourinary: Genitourinary: Reports no additional female genitourinary complaints Exam Narrative: WDWN in NAD skin no rash head ncat lungs clear cor reg no rub abd BS+ nontender and soft ext no edema. Objective Data Vital Signs Vital Signs: Vital Signs - 24 hr 05/24/24 13:03 05/24/24 13:03 05/24/24 14:00 Temperature 98.2 F Pulse Rate 54 L Respiratory Rate 16 Blood Pressure 137/69 129/68 137/69 Pulse Oximetry 98 Oxygen Delivery 05/24/24 19:20 05/24/24 19:23 05/24/24 19:27 Temperature 97 F L Pulse Rate 69 Respiratory Rate 18 Blood Pressure 119/54 L 127/87 117/57 L Pulse Oximetry 96 Oxygen Delivery 05/24/24 19:59 05/24/24 20:00 05/25/24 04:0
--- NOTE | 2024-05-25 12:39 | PM.PNNEP ---
Progress Note: A&P Assessment and Plan (1) LIV (acute kidney injury): Code(s): N17.9 - Acute kidney failure, unspecified Status: Acute Assessment and Plan: presumably related to hypotension and volume depletion mild improvement noted with IVF resuscitation GFR baseline is around 15 and she is there now diuretics on hold Getting some IV fluids currently. evaluation to date: urine electrolytes (by FeUrea) prerenal UA with some inflammation/pyuria urine eosinophils rare (due to inflammation?) CPK normal no imaging done continue with IVFs monitor orthostatics. One to be done today. follow trend of repeat labs and UOP (2) Chronic kidney disease, stage IV (severe): Code(s): N18.4 - Chronic kidney disease, stage 4 (severe) Status: Chronic Assessment and Plan: evidence of CKD that dates back to 2018 with slow progression of disease... initially had been ~ 1.4 - 1.8mg/dl then augustine to ~ 1.9 - 2.1mg/dl since early 2021 was in the range of 2.0 - 2.5mg/dl in 2022 more recently, seems to running ~ 2.5 - 3.0mg/dl due to HTN, DM, vascular disease, SUZANNE, and age-related change based on outpatient evaluation (3) Hypotension: Code(s): I95.9 - Hypotension, unspecified Status: Acute Assessment and Plan: improvement noted due to volume depletion likely worsened by ongoing diuretic and anti-HTN medication use coupled with weight loss holding BP medications agree with IVFs Follow blood pressure and orthostatics as we go forward (4) SUZANNE (obstructive sleep apnea): Code(s): G47.33 - Obstructive sleep apnea (adult) (pediatric) Status: Acute Assessment and Plan: continue use of CPAP (5) Diabetes: Code(s): E11.9 - Type 2 diabetes mellitus without complications Status: Chronic Assessment and Plan: follow accuchecks glycemic control per hospitalists Subjective Date/time seen: 05/25/24 12:39 Interval history: Patient is feeling okay. Still a little dizzy on standing. Will be getting an orthostatic blood pressure readings soon No chest pain or shortness of breath Eating okay Review of Systems Cardiovascular: Cardiovascular: Reports no additional cardiovascular complaints Respiratory: Respiratory: Reports no additional respiratory complaints Gastrointestinal: Gastrointestinal: Reports no additional gastrointestinal complaints Genitourinary: Genitourinary: Reports no additional female genitourinary complaints Exam Narrative: WDWN in NAD skin no rash head ncat lungs clear cor reg no rub abd BS+ nontender and soft ext no edema. Objective Data Vital Signs Vital Signs: Vital Signs - 24 hr 05/24/24 13:03 05/24/24 13:03 05/24/24 14:00 Temperature 98.2 F Pulse Rate 54 L Respiratory Rate 16 Blood Pressure 137/69 129/68 137/69 Pulse Oximetry 98 Oxygen Delivery 05/24/24 19:20 05/24/24 19:23 05/24/24 19:27 Temperature 97 F L Pulse Rate 69 Respiratory Rate 18 Blood Pressure 119/54 L 127/87 117/57 L Pulse Oximetry 96 Oxygen Delivery 05/24/24 19:59 05/24/24 20:00 05/25/24 04:03 Temperature 97.7 F Pulse Rate 69 69 Respiratory Rate 18 Blood Pressure 132/64 Pulse Oximetry 98 Oxygen Delivery Room Air 05/25/24 08:28 05/25/24 08:29 05/25/24 08:00 Temperature Pulse Rate 76 76 Respiratory Rate Blood Pressure Pulse Oximetry Oxygen Delivery Room Air 05/25/24 10:34 05/25/24 11:42 05/25/24 11:50 Temperature Pulse Rate Respiratory Rate Blood Pressure 142/66 H Pulse Oximetry Oxygen Delivery Room Air Room Air 05/25/24 11:52 05/25/24 11:54 Temperature Pulse Rate Respiratory Rate Blood Pressure 110/66 104/50 L Pulse Oximetry Oxygen Delivery Intake/Output Intake/Output: Intake & Output 05/22/24 05/23/24 05/24/24 05/25/24 23:59 23:59 23:59 23:59 Intake Total 1222 325
[2024-05-25] MEDS: TOLNAFTATE 1% POWDER 45 GM BTL 1 APPLIC TOPICAL ×2 (13:31→22:06)
[2024-05-25] MEDS: polyethylene glycoL 3350 17 GM POWD.PACK PO (13:58)
[2024-05-25 17:05] LABS: Glucose Point of Care 142 mg/dl (65-105)
[2024-05-25 21:49] LABS: Glucose Point of Care 165 mg/dl (65-105)
[2024-05-25] MEDS: MELATONIN 5 MG TABLET PO (22:04)
[2024-05-25] MEDS: ATORVASTATIN 40 MG TABLET 80 MG PO (22:04)
[2024-05-25] MEDS: LACTATED RINGERS 1,000 ML 50 ML IV CONT (22:10)
[2024-05-26 04:57] VITALS: BP 123/66; PULSE 60; RESP 16; TEMP 36.6; O2SAT 98
[2024-05-26 07:12] LABS: Albumin Level 2.9 g/dL (3.5-5.1); Anion Gap 5 mmol/L (4-12); Blood Urea Nitrogen 46 mg/dL (7-17); Calcium 7.7 mg/dL (8.4-10.2); Carbon Dioxide 26 mmol/L (22-30); Chloride 108 mmol/L (98-107); Estimated CRCL calculation 19 ml/min; Estimated Glomerular Filt Rate 17; Glucose 109 mg/dL (65-110); Phosphorus 4.3 mg/dL (2.5-4.5); Potassium 4.5 mmol/L (3.4-5.0); Sodium 139 mmol/L (137-145)
[2024-05-26 07:54] LABS: Glucose Point of Care 115 mg/dl (65-105)
[2024-05-26 08:00] VITALS: BP 124/70; PULSE 61; RESP 20; O2SAT 100
[2024-05-26 08:02] VITALS: BP 134/69
[2024-05-26 08:03] VITALS: BP 102/79
[2024-05-26 08:08] VITALS: PULSE 80; RESP 20; O2SAT 98
[2024-05-26] MEDS: EZETIMIBE 10 MG TABLET PO (08:14)
[2024-05-26] MEDS: allopurinoL 100 MG TABLET PO (08:14)
[2024-05-26] MEDS: SITagliptin PHOSPHATE 25 MG TABLET PO (08:14)
[2024-05-26 08:15] VITALS: PULSE 64
[2024-05-26] MEDS: DOCUSATE SODIUM 100 MG CAPSULE PO (08:15)
[2024-05-26] MEDS: HYDROcodone/acetaminophen (*CRX) 10-325 MG TABLET 1 TAB PO (08:15)
[2024-05-26] MEDS: GABAPENTIN 300 MG CAPSULE PO ×2 (08:15→12:44)
[2024-05-26] MEDS: FAMOTIDINE 20 MG TABLET PO (08:15)
[2024-05-26] MEDS: APIXABAN 5 MG TABLET PO (08:15)
[2024-05-26] MEDS: TAMSULOSIN HCL 0.4 MG CAPSULE PO (08:15)
[2024-05-26] MEDS: AMIODARONE HCL 200 MG TABLET PO (08:15)
[2024-05-26] MEDS: TOLNAFTATE 1% POWDER 45 GM BTL 1 APPLIC TOPICAL (08:17)
--- NOTE | 2024-05-26 08:37 | PM.IMPN ---
Progress Note: A&P Assessment and Plan (1) Hypotension: Code(s): I95.9 - Hypotension, unspecified Status: Acute Assessment and Plan: - dehydration/volume depletion - likely worsen with diuretics and weight loss, in addition to anti htn meds - hold HTN meds for now - continue IV hydration- close monitor of resp/card status as diastaltic CHF - will decrease coreg dose to 6.25 mg bid starting this evening (2) Acute on chronic kidney failure: Code(s): N17.9 - Acute kidney failure, unspecified; N18.9 - Chronic kidney disease, unspecified Status: Acute Assessment and Plan: -very likely due to hypotention/volume depletion - diuretics on hold, holding HTN meds - nephrology was consulted- appreciate recommendations - BP improved- labs stable- continue to monitor (3) Anemia of chronic disease: Code(s): D63.8 - Anemia in other chronic diseases classified elsewhere Status: Acute (4) Chronic obstructive pulmonary disease: Code(s): J44.9 - Chronic obstructive pulmonary disease, unspecified Status: Chronic (5) Congestive heart failure: Code(s): I50.9 - Heart failure, unspecified Status: Acute (6) Essential hypertension: Code(s): I10 - Essential (primary) hypertension Status: Chronic (7) Obstructive sleep apnea on CPAP: Code(s): G47.33 - Obstructive sleep apnea (adult) (pediatric); Z99.89 - Dependence on other enabling machines and devices Status: Chronic Assessment and Plan: -continue Cpap (8) Type 2 diabetes mellitus: Code(s): E11.9 - Type 2 diabetes mellitus without complications Status: Acute Assessment and Plan: - diabetic diet, hypoglycemia protocol, accucheck ac/hs (9) Chronic anticoagulation: Code(s): 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 Carrillo's office for evaluation after she was found of low blood pressure. The patient provides the following history. She has not been feeling well for several weeks and was seen in the ED on 05/10/2024 with complaints of weakness, fatigue, and dizziness. Her blood pressures were low at that time but did respond IV fluids. Her urine was concerning for UTI and she was started on antibiotics however urine culture was negative. She was offered admission but preferred to go home. Today she had an appointment with Dr. Carrillo and she was directed to the ED as her blood pressures were running quite low. With further questioning she admits that she continues to feel weak. She also has urinary frequency and pressure with urination but she denies overt dysuria. Appetite has been fair but she denies nausea, vomiting, and diarrhea. She has occasional lightheadedness and dizziness with position changes but denies syncope near syncope. She has lost about 40 lb and was recently taking off of insulin. She has not had any other medication changes. She denies fever, chills, sweats, chest pain, shortness off breath, cough, abdominal pain, and diarrhea. In the ED: She was afebrile on arrival with a blood pressure of 76/50. Labs were significant for WBC count of 4.1, hemoglobin 10.1, MCV 104.4, platelet 234, BUN 57, creatinine 3.80, lactic acid 0.9. Urine was positive for 2+ leukocyte esterase, 11 to 20 WBC, few squamous cells, and 11 to 20 casts; no bacteria were seen on microscopy. She tested negative for influenza, RSV, and COVID. Chest x-ray showed possible small left pleural effusion otherwise no acute cardiopulmonary disease. She was given and IV fluid bolus with improvement in her blood pres
[2024-05-26] MEDS: ACETAMINOPHEN 500 MG TABLET PO (10:53)
[2024-05-26 12:02] LABS: Glucose Point of Care 239 mg/dl (65-105)
--- NOTE | 2024-05-26 12:30 | PM.DS ---
DS: Admitting Diagnosis Discharge Date 05/26 Admitting Diagnosis low blood pressure DS: Discharge Diagnosis Discharge Diagnosis (1) Hypotension: Code(s): I95.9 - Hypotension, unspecified Status: Acute Assessment and Plan: - dehydration/volume depletion - likely worsen with diuretics and weight loss, in addition to anti htn meds - hold HTN meds for now - continue IV hydration- close monitor of resp/card status as diastaltic CHF - will decrease coreg dose to 6.25 mg bid starting this evening - bp had been stable- she is doing well (2) Acute on chronic kidney failure: Code(s): N17.9 - Acute kidney failure, unspecified; N18.9 - Chronic kidney disease, unspecified Status: Acute Assessment and Plan: -very likely due to hypotention/volume depletion - diuretics on hold, holding HTN meds - nephrology was consulted- appreciate recommendations - BP improved- labs stable- continue to monitor (3) Anemia of chronic disease: Code(s): D63.8 - Anemia in other chronic diseases classified elsewhere Status: Acute (4) Chronic obstructive pulmonary disease: Code(s): J44.9 - Chronic obstructive pulmonary disease, unspecified Status: Chronic (5) Congestive heart failure: Code(s): I50.9 - Heart failure, unspecified Status: Acute (6) Essential hypertension: Code(s): I10 - Essential (primary) hypertension Status: Chronic (7) Obstructive sleep apnea on CPAP: Code(s): G47.33 - Obstructive sleep apnea (adult) (pediatric); Z99.89 - Dependence on other enabling machines and devices Status: Chronic Assessment and Plan: -continue Cpap (8) Type 2 diabetes mellitus: Code(s): E11.9 - Type 2 diabetes mellitus without complications Status: Acute Assessment and Plan: - diabetic diet, hypoglycemia protocol, accucheck ac/hs (9) Chronic anticoagulation: 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 Carrillo's office for evaluation after she was found of low blood pressure. The patient provides the following history. She has not been feeling well for several weeks and was seen in the ED on 05/10/2024 with complaints of weakness, fatigue, and dizziness. Her blood pressures were low at that time but did respond IV fluids. Her urine was concerning for UTI and she was started on antibiotics however urine culture was negative. She was offered admission but preferred to go home. Today she had an appointment with Dr. Carrillo and she was directed to the ED as her blood pressures were running quite low. With further questioning she admits that she continues to feel weak. She also has urinary frequency and pressure with urination but she denies overt dysuria. Appetite has been fair but she denies nausea, vomiting, and diarrhea. She has occasional lightheadedness and dizziness with position changes but denies syncope near syncope. She has lost about 40 lb and was recently taking off of insulin. She has not had any other medication changes. She denies fever, chills, sweats, chest pain, shortness off breath, cough, abdominal pain, and diarrhea. In the ED: She was afebrile on arrival with a blood pressure of 76/50. Labs were significant for WBC count of 4.1, hemoglobin 10.1, MCV 104.4, platelet 234, BUN 57, creatinine 3.80, lactic acid 0.9. Urine was positive for 2+ leukocyte esterase, 11 to 20 WBC, few squamous cells, and 11 to 20 casts; no bacteria were seen on microscopy. She tested negative for influenza, RSV, and COVID. Chest x-ray showed possible small left pleural effusio
[2024-05-26] MEDS: INSULIN ASPART (*BKC) 100 UNITS/ML SUB-Q (12:45)
== END 2024-05-26 15:00 | disposition home or self-care (01) ==
LOC: ANHED 18:30 → ANH3MED 19:34
PROVIDERS: Internal Medicine Nephrology; Physician Assistant; Admitting Provider General Practice; Emergency Provider Emergency Medicine; PCP Registered Nurse; Visit Provider General Practice
DX: N17.9 Acute kidney failure, unspecified (principal); N39.0 Urinary tract infection, site not specified; I95.9 Hypotension, unspecified; I13.0 Hypertensive heart and chronic kidney disease with heart failure and stage 1 through stage 4 chronic kidney disease, or unspecified chronic kidney disease; E11.22 Type 2 diabetes mellitus with diabetic chronic kidney disease; I50.9 Heart failure, unspecified; N18.4 Chronic kidney disease, stage 4 (severe); E11.42 Type 2 diabetes mellitus with diabetic polyneuropathy; G47.33 Obstructive sleep apnea (adult) (pediatric); I48.92 Unspecified atrial flutter; D63.1 Anemia in chronic kidney disease; J44.9 Chronic obstructive pulmonary disease, unspecified; F41.8 Other specified anxiety disorders; K21.9 Gastro-esophageal reflux disease without esophagitis; E55.9 Vitamin D deficiency, unspecified; E78.5 Hyperlipidemia, unspecified; Z20.822 Contact with and (suspected) exposure to COVID-19; Z86.73 Personal history of transient ischemic attack (TIA), and cerebral infarction without residual deficits; Z79.4 Long term (current) use of insulin; Z79.84 Long term (current) use of oral hypoglycemic drugs; Z79.01 Long term (current) use of anticoagulants; Z79.891 Long term (current) use of opiate analgesic; Z79.51 Long term (current) use of inhaled steroids; Z99.89 Dependence on other enabling machines and devices
CPT/HCPCS: 36415; 71045; 80048; 80053; 80069; 81001; 82533; 82550; 82570; 82948; 83605; 83735; 84156; 84300; 84443; 84540; 85025; 85027; 85999; 87040; 87086; 87637; 96360; 96361; 97161; 97165; 99285; A9270; G0378; J1815; J7030; J7120

== ENCOUNTER 2024-07-03 15:33 | Emergency (ER) | payer MEDICARE, SELFPAY ==
--- NOTE | ~2024-07-03 | XR_ITS ---
XR chest 2V 07/03/2024 16:48 Indication: Shortness of breath. A. fib. Procedure: PA and lateral views of the chest Comparison: 05/10/2024 Findings: Retrocardiac opacification may represent atelectasis or pneumonia. Possible small effusion. Heart size normal. No edema or pneumothorax. No acute osseous abnormality. Impression: 1: Retrocardiac opacification may represent atelectasis or pneumonia. Reviewed, dictated and finalized at location B. Impression: 1: Retrocardiac opacification may represent atelectasis or pneumonia.
[2024-07-03 16:00] VITALS: BP 122/98; PULSE 62; RESP 19; TEMP 36.7; O2SAT 97
--- NOTE | 2024-07-03 16:03 | ECG_ITS ---
Test Date: 2024-07-03 16:14:12 Measurements Intervals Bryant Rate: 60 P: 261 UT: 126 QRS: -47 QRSD: 151 T: 48 QT: 453 QTc: 455 Interpretive Statements SINUS RHYTHM WITH FIRST-DEGREE AV BLOCK AND OCCASIONAL PAC MARKED LEFT AXIS DEVIATION [QRS AXIS < -30] LEFT BUNDLE BRANCH BLOCK [120+ ms QRS DURATION, 80+ ms Q/S IN V1/V2, 85+ ms R IN I/aVL/V5/V6] ABNORMAL ELECTROCARDIOGRAM Compared to ECG 05/10/2024 16:45:49 NO SIGNIFICANT CHANGE Electronically Signed On 07-03-2024 18:07:50 CDT by Swapnil Wilson M.D.
--- NOTE | 2024-07-03 16:04 | ED.SOB ---
HPI - SOB/Dyspnea General Chief Complaint: Shortness of Breath/Dyspnea Stated Complaint: swelling/ sob Time Seen by Provider: 07/03/24 16:04 Focused HPI: This is a 79 year old female that presents to the ER for shortness of breath. Ongoing over the last couple of days. Worse at night. Reports history of CHF. Recently taken off her diuretic. Denies chest pain. GENERAL: Well-appearing, well-nourished, and in no acute distress. HEAD: Normocephalic, atraumatic. CHEST: Clear to auscultation. ?No respiratory distress. HEART: Regular rate and rhythm.? NEURO: ?Alert and oriented x3. Patient screened in triage and initial orders placed.? ?Additional care and disposition to be based upon?diagnostic testing and treatment. Related Data Home Medications Medication Instructions Recorded Confirmed gabapentin 300 mg capsule 300 mg PO TID 12/07/19 06/04/24 ergocalciferol (vitamin D2) 1,250 1,250 mcg PO WEEKLY 02/22/21 06/04/24 mcg (50,000 unit) capsule docusate sodium 100 mg capsule 1 cap PO DAILY 05/04/22 06/04/24 dicyclomine 10 mg capsule 10 mg PO TID PRN Abdominal 03/27/23 06/04/24 Discomfort allopurinol 100 mg tablet 100 mg PO DAILY 09/15/23 06/04/24 atorvastatin 80 mg tablet 80 mg PO HS 09/15/23 06/04/24 ezetimibe 10 mg tablet 10 mg PO DAILY 09/15/23 06/04/24 fenofibrate 160 mg tablet 160 mg PO DAILY 09/15/23 06/04/24 hydrocodone 10 mg-acetaminophen 1 tablet PO Q8H PRN Pain (Scale 09/15/23 06/04/24 325 mg tablet Score 4-6) melatonin 5 mg tablet 5 mg PO HS 09/15/23 06/04/24 sitagliptin phosphate 25 mg tablet 25 mg PO DAILY 09/15/23 06/04/24 (Januvia) acetaminophen 500 mg capsule 500 mg PO Q6H 09/26/23 06/04/24 amiodarone 200 mg tablet 200 mg PO DAILY 01/16/24 06/04/24 apixaban 5 mg tablet (Eliquis) 5 mg PO Q12H 01/16/24 06/04/24 furosemide 40 mg tablet 40 mg PO DAILY 05/23/24 06/04/24 Allergies Allergy/AdvReac Type Severity Reaction Status Date / Time ceftriaxone Allergy Unknown Anaphylaxis Verified 06/04/24 10:38 clindamycin Allergy Unknown Anaphylaxis Verified 06/04/24 10:38 Penicillins Allergy Unknown Hives Verified 06/04/24 10:38 morphine AdvReac Unknown Vomiting Verified 06/04/24 10:38 nitroglycerin AdvReac Unknown Headache Verified 06/04/24 10:38 [facility] Past Medical History Medical History Anemia of chronic disease Cerebrovascular accident 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 Cholelithiasis Chronic anticoagulation Congestive heart failure History of reduced ejection fraction with improvement in EF to 55% on most recent echo. Diastolic dysfunction also noted. 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 Depression with anxiety Diabetic peripheral neuropathy Dyslipidemia Essential hypertension Fibromyalgia Gastroesophageal reflux disease Hypersomnia Obstructive sleep apnea on CPAP Osteoarthritis Paroxysmal atrial flutter Peptic ulcer Stage III chronic kidney disease Baseline creatinine ranges between 1.3 and 1.60. Type 2 diabetes mellitus Vitamin D deficiency Surgical History Surgical History History of appendectomy History of cardiac catheterization (07/2013) Normal coronaries although anomalous left coronary artery arising from the right ostium was noted. History of hysterectomy (1979) History of left breast biopsy Benign pathology. Family History Family History Father Malignant neoplasm of prostate Heart disease Mother Esophageal cancer Sibling Diabetes mellitus Daughter Alcoholism Social History Social History Social History: Surrogate medical decision maker: Mikki Herrera, daughter. Code status: Full Code. Smoking status: Never
[2024-07-03 16:30] LABS: Basophils Percent Auto 0.9 % (0.2-1.2); Eosinophils Absolute Auto 0.2 K/mm3 (0-0.3); Eosinophils Percent Auto 4.8 % (0-4.4); Hematocrit 29.8 % (37.0-47.0); Hemoglobin 9.4 g/dL (12.0-15.0); Immature Granulocyte Absolute 0.01 K/mm3 (0.00-0.031); Immature Granulocyte Percent A 0.3 % (0-0.5); Lymphocytes Absolute Auto 0.74 K/mm3 (0.9-3.2); Lymphocytes Percent Auto 22.2 % (18.3-44.2); Mean Corpuscular HGB Conc 31.5 g/dl (32-36); Mean Corpuscular Hemoglobin 34.2 pg (26-34); Mean Corpuscular Volume 108.4 fl (80-100); Mean Platelet Volume 9.6 fl (7.4-10.4); Monocytes Absolute Auto 0.2 K/mm3 (0.1-0.6); Monocytes Percent Auto 5.7 % (2.6-8.5); Neutrophils Absolute Auto 2.2 K/mm3 (1.3-6.7); Neutrophils Percent Auto 66.1 % (45.5-73.1); Platelet Count Result 210 k/mm3 (150-375); Red Blood Count 2.75 M/mm3 (4.2-5.4); Red Cell Distribution Width 16.4 % (11.5-14.5); White Blood Count 3.3 K/mm3 (4.5-10.0)
[2024-07-03 16:41] LABS: Alanine Aminotransferase 16 U/L (6-35); Albumin Level 3.1 g/dL (3.5-5.1); Alkaline Phosphatase 69 U/L (38-126); Anion Gap 8 mmol/L (4-12); Aspartate Amino Transferase 29 U/L (14-36); Bilirubin,Total 0.5 mg/dL (0.2-1.3); Blood Urea Nitrogen 32 mg/dL (7-17); Calcium 8.2 mg/dL (8.4-10.2); Carbon Dioxide 23 mmol/L (22-30); Chloride 108 mmol/L (98-107); Estimated CRCL calculation 21 ml/min; Estimated Glomerular Filt Rate 20; Glucose 170 mg/dL (65-110); Potassium 4.9 mmol/L (3.4-5.0); Sodium 139 mmol/L (137-145)
[2024-07-03 16:47] LABS: INR 1.7; Partial Thromboplastin Time 38.5 Seconds (22.3-36.8); Prothrombin Time 20.1 Seconds (11.1-14.7)
[2024-07-03 16:49] LABS: NT Pro B Type Natriuretic Pept 3330 pg/mL (19.9-100)
[2024-07-03 16:54] LABS: Anisocytosis 1+; Macrocytosis 1+ (NORMAL); Platelet Estimate Adequate (Adequate)
[2024-07-03 16:55] LABS: Schistocytes None Seen
--- NOTE | 2024-07-03 19:45 | PC.NURSE ---
patient states they would like to go home and do not want to sit in waiting room any longer. patient feels comfortable going home and states they will call 911 if it happens again. educated patient to return to the ER with any concerns.
== END 2024-07-03 20:09 | disposition left against medical advice (07) ==
PROVIDERS: Emergency Provider Physician Assistant; PCP Registered Nurse
DX: R06.02 Shortness of breath (principal); I48.92 Unspecified atrial flutter; I13.0 Hypertensive heart and chronic kidney disease with heart failure and stage 1 through stage 4 chronic kidney disease, or unspecified chronic kidney disease; I50.9 Heart failure, unspecified; E11.22 Type 2 diabetes mellitus with diabetic chronic kidney disease; N18.30 Chronic kidney disease, stage 3 unspecified; E11.42 Type 2 diabetes mellitus with diabetic polyneuropathy; D63.8 Anemia in other chronic diseases classified elsewhere; E78.5 Hyperlipidemia, unspecified; E55.9 Vitamin D deficiency, unspecified; K21.9 Gastro-esophageal reflux disease without esophagitis; M19.90 Unspecified osteoarthritis, unspecified site; M79.7 Fibromyalgia; G47.33 Obstructive sleep apnea (adult) (pediatric); G47.10 Hypersomnia, unspecified; Z86.711 Personal history of pulmonary embolism; Z86.73 Personal history of transient ischemic attack (TIA), and cerebral infarction without residual deficits; Z90.710 Acquired absence of both cervix and uterus; Z79.01 Long term (current) use of anticoagulants; Z79.84 Long term (current) use of oral hypoglycemic drugs; Z79.899 Other long term (current) drug therapy; I44.0 Atrioventricular block, first degree; I44.7 Left bundle-branch block, unspecified; I49.1 Atrial premature depolarization
CPT/HCPCS: 36415; 71046; 80053; 83880; 85025; 85610; 85730; 93005; 99284

== ENCOUNTER 2024-07-11 11:22 | Outpatient (CLI) | payer MEDICARE, SELFPAY ==
[2024-07-11 12:11] LABS: Cholesterol 147 mg/dL (0-200); HDL Direct 62 mg/dL; Triglycerides 125 mg/dL (<150)
[2024-07-11 12:21] LABS: LDL Cholesterol Direct 49 mg/dL
== END 2024-07-11 11:23 | disposition home or self-care (01) ==
LOC: ANHLAB 11:25
PROVIDERS: PCP Registered Nurse; Visit Provider Internal Medicine Cardiovascular Disease
DX: E78.5 Hyperlipidemia, unspecified (principal)
CPT/HCPCS: 36415; 80061

== ENCOUNTER 2024-09-27 09:30 | Emergency (ER) | payer MEDICARE, SELFPAY ==
--- NOTE | ~2024-09-27 | XR_ITS ---
EXAMINATION: XR hip RT min 2V DATE: 09/27/2024 10:58 INDICATION: Right hip pain post fall TECHNIQUE: Anteroposterior and frog-leg lateral views of the right hip were obtained. COMPARISON: None. FINDINGS: Normal alignment in the visualized right hemipelvis. No fracture. Mild right hip and sacroiliac osteo arthritis. Severe lumbar spondylosis. Soft tissues are unremarkable. IMPRESSION: 1. Severe lumbar spondylosis. No acute osseous abnormality. Reviewed, dictated and finalized at location B. IN HOUSEKEEPER NANNY
--- NOTE | ~2024-09-27 | XR_ITS ---
EXAMINATION: XR ankle RT min 3V DATE: 09/27/2024 10:58 INDICATION: Right lower limb injury post fall TECHNIQUE: Anteroposterior, oblique, mortise, and lateral views of the right ankle were obtained. COMPARISON: None. FINDINGS: Bone alignment is normal. Corticated ossicles along the inferior margin of the medial malleolus likel y sequela of chronic deltoid ligament sprain. No acute fracture. Polyarticular osteoarthritis, modera te severity at the naviculocuneiform and second tarsal metatarsal joints and mild at the right ankle and remaining joints at the mid and hindfoot. Moderate-sized Achilles and plantar calcaneal spurs. So ft tissues are unremarkable with no ankle joint effusion. IMPRESSION: 1. 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 No acute osseous abnormality. 2. Heterotopic ossicles along the disc margin of the medial malleolus likely sequela of chronic delto id ligament sprain. Reviewed, dictated and finalized at location B. UCHING OPERATOR IMPRESSION: 1. 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 No acute osseous abnormality. 2. Heterotopic ossicles along the disc margin of the medial malleolus likely se quela of chronic deltoid ligament sprain.
--- NOTE | ~2024-09-27 | XR_ITS ---
EXAMINATION: XR knee RT min 4V, XR tibia fibula RT 2V DATE: 09/27/2024 10:58 INDICATION: Right lower limb injury post fall TECHNIQUE: 1. Anteroposterior, 2 oblique and crosstable lateral views of the right knee were obtained 2. AP and lateral views of the right lower leg were obtained. COMPARISON: None. FINDINGS: Alignment is normal at the right knee, ankle and visualized hind foot. No fracture. Tricompartmental osteoarthritis at the right knee with moderate-sized marginal osteophytes in all 3 compartments. The re is at least mild joint space narrowing at the medial and lateral compartment although this could b e underestimated on nonweightbearing imaging. Prominent loose osteochondral bodies at the anterior an d posterior recesses of the knee but no knee joint effusion. Mild to moderate osteoarthritis at the n aviculocuneiform articulations and mild osteoarthritis at the ankle, subtalar and talonavicular joint s. Moderate-sized Achilles and plantar calcaneal spurs. Focal prominent soft tissue swelling with inc reased density to the subcutaneous fat anterior to the proximal right tibia which given the history o f trauma most likely represents a hematoma. IMPRESSION: 1. Likely subcutaneous hematoma anterior to the proximal right tibia. 2. Degenerative skeletal changes as detailed above but no acute osseous abnormality of the right lowe r leg from the knee through the midfoot. Reviewed, dictated and finalized at location B. CIATE DEAN IMPRESSION: 1. Likely subcutaneous hematoma anterior to the proximal right tibia. 2. Degenerative skeletal changes as detailed above but no acute osseous abnorma lity of the right lower leg from the knee through the midfoot.
--- NOTE | ~2024-09-27 | XR_ITS ---
EXAMINATION: XR wrist RT min 3V DATE: 09/27/2024 10:58 INDICATION: Right wrist injury post fall TECHNIQUE: Posteroanterior, ulnar deviation, oblique, and lateral views of the right wrist were obtai tootie. COMPARISON: none FINDINGS: Diffuse osteopenia. Bone alignment is normal. No fracture. Moderate to severe osteoarthritis at the f irst carpometacarpal joint. Additional mild osteoarthritis at the wrist, midcarpal, triscaphe and sec ond carpal metacarpal joints. IMPRESSION: 1. No acute osseous abnormality. 2. Polyarticular osteoarthritis, moderate to severe at the first carpometacarpal joint and otherwise mild. Reviewed, dictated and finalized at location B. 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 No acute osseous abnormality. 2. Polyarticular osteoarthritis, moderate to severe at the first carpometacarpa l joint and otherwise mild.
[2024-09-27 09:27] VITALS: BP 160/85; PULSE 64; RESP 16; TEMP 36.6; O2SAT 100
--- NOTE | 2024-09-27 09:50 | ED.FALL ---
HPI - Fall General Chief Complaint: Fall Stated Complaint: GLF Source: patient and family Mode of arrival: EMS Limitations: no limitations History of Present Illness HPI Narrative: Patient is a 71-year-old female who presents to the ER via EMS after a fall out of her electric chair. She reports she was sitting on her chair and reached for her clothes on the ground when Her dog jumped on her lap and she fell forward onto the ground. Patient endorses right hip and right lower quadrant pain. She reports she is on blood thinners. Patient denies hitting her head or any loss of consciousness. She endorses a history of high blood pressure, gout, congestive heart failure, diabetes and chronic pain. Related Data Home Medications Medication Instructions Recorded Confirmed gabapentin 300 mg capsule 300 mg PO TID 12/07/19 06/04/24 ergocalciferol (vitamin D2) 1,250 1,250 mcg PO WEEKLY 02/22/21 06/04/24 mcg (50,000 unit) capsule docusate sodium 100 mg capsule 1 cap PO DAILY 05/04/22 06/04/24 dicyclomine 10 mg capsule 10 mg PO TID PRN Abdominal 03/27/23 06/04/24 Discomfort allopurinol 100 mg tablet 100 mg PO DAILY 09/15/23 06/04/24 atorvastatin 80 mg tablet 80 mg PO HS 09/15/23 06/04/24 ezetimibe 10 mg tablet 10 mg PO DAILY 09/15/23 06/04/24 hydrocodone 10 mg-acetaminophen 1 tablet PO Q8H PRN Pain (Scale 09/15/23 06/04/24 325 mg tablet Score 4-6) melatonin 5 mg tablet 5 mg PO HS 09/15/23 06/04/24 sitagliptin phosphate 25 mg tablet 25 mg PO DAILY 09/15/23 06/04/24 (Januvia) acetaminophen 500 mg capsule 500 mg PO Q6H 09/26/23 06/04/24 amiodarone 200 mg tablet 200 mg PO DAILY 01/16/24 06/04/24 apixaban 5 mg tablet (Eliquis) 5 mg PO Q12H 01/16/24 06/04/24 Allergies Allergy/AdvReac Type Severity Reaction Status Date / Time ceftriaxone Allergy Unknown Anaphylaxis Verified 06/04/24 10:38 clindamycin Allergy Unknown Anaphylaxis Verified 06/04/24 10:38 Penicillins Allergy Unknown Hives Verified 06/04/24 10:38 morphine AdvReac Unknown Vomiting Verified 06/04/24 10:38 nitroglycerin AdvReac Unknown Headache Verified 06/04/24 10:38 Review of Systems Review of Systems: All systems reviewed & are unremarkable except as noted in HPI and below FOR[facility]LY [facility] Past Medical History Medical History Anemia of chronic disease Cerebrovascular accident 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 Cholelithiasis Chronic anticoagulation Congestive heart failure History of reduced ejection fraction with improvement in EF to 55% on most recent echo. Diastolic dysfunction also noted. 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 Depression with anxiety Diabetic peripheral neuropathy Dyslipidemia Essential hypertension Fibromyalgia Gastroesophageal reflux disease Hypersomnia Obstructive sleep apnea on CPAP Osteoarthritis Paroxysmal atrial flutter Peptic ulcer Stage III chronic kidney disease Baseline creatinine ranges between 1.3 and 1.60. Type 2 diabetes mellitus Vitamin D deficiency Surgical History Surgical History History of appendectomy History of cardiac catheterization (07/2013) Normal coronaries although anomalous left coronary artery arising from the right ostium was noted. History of hysterectomy (1979) History of left breast biopsy Benign pathology. Family History Family History Father Malignant neoplasm of prostate Heart disease Mother Esophageal cancer Sibling Diabetes mellitus Daughter Alcoholism Social History Social History Social History: Surrogate medical decision maker: Mikki Herrera, daughter. Code status: Full Code. Smoking status: Never smoker Second hand tobacco smoke exposure: No Alcohol intake: current Drinks per week: 1 Alcohol use details: Rare alcohol use in moderation. Substance use: never Substance use type: does not use Do You Feel Safe in your Home?: Yes Lack of Transportation: No Lack of Food: Never True Current Housing: I Have Housing Concerned About Future Housing: No Difficulty Paying Gas/Electric Bills: No Difficulty Paying for Meds: No Currently Unemployed: No Education: High School Diploma/GED Difficulty w/ Childcare or Family Care: No Additional living arrangements comments: . Lives with daughter Mikki in [place]. 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 Spiritual care concerns: No Exam Narrative: GENERAL: Well appearing, obese, non-toxic, in no acute distress. HEAD: Normocephalic, atraumatic. NECK: Supple. No adenopathy, no masses. RESPIRATORY: Airway patent, respirations nonlabored. Clear to auscultation bilaterally, no rales, rhonchi, wheezing. CARDIOVASCULAR: Regular rate and rhythm without murmurs, rubs, or gallops. Peripheral pulses 2+ and equal bilaterally. ABDOMINAL: Soft, nontender, nondistended, no hepatosplenomegaly. Normoactive BS. MUSCULOSKELETAL: Moves all extremities. R hip tenderness, R lower extremity calf pain that worsens with movement. Full ROM in all extremities. R knee deformity with no noticeable ecchymosis. SKIN: Warm, dry, normal color. No rashes. R wrist skin tear X 2, approximately 1/2-1 inch long each, bleeding controlled. 4cm x 5cm hematoma on anterior lower extremity. NEURO: A&O X3. Speech clear. Cranial nerves II-XII grossly intact. No ataxic movements. PSYCHIATRIC: Appropriate mood and affect. Normal interaction. Course Vital Signs Vital signs: Vital Signs Temperature 36.6 C 09/27/24 09:27 Pulse Rate 64 09/27/24 09:27 Respiratory Rate 16 09/27/24 09:27 Blood Pressure 160/85 H 09/27/24 09:27 Pulse Oximetry 100 09/27/24 09:27 Oxygen Delivery Room Air 09/27/24 09:27 Temperature 36.6 C 09/27/24 09:27 Pulse Rate 64 09/27/24 09:27 Respiratory Rate 16 09/27/24 09:27 Blood Pressure 160/85 H 09/27/24 09:27 Pulse Oximetry 100 09/27/24 09:27 Oxygen Delivery Room Air 09/27/24 09:27 MDM - Fall MDM Narrative Medical decision making narrative: Patient is a 71-year-old female who presents to the ER via EMS after a fall out of her electric chair. She reports she was sitting on her chair and reached for her clothes on the ground when Her dog jumped on her lap and she fell forward onto the ground. Patient endorses right hip and right lower quadrant pain. She reports she is on blood thinners. Patient denies hitting her head or any loss of consciousness. She endorses a history of high blood pressure, gout, congestive heart failure, diabetes and chronic pain. Pt also has two skin tears on her R wrist that are approximately 1/2-1 inch each. Labs Ordered: None necessary Imaging Ordered: X-rays of R hip, R knee, R tib/fib, R ankle Results: No acute abnormalities Disposition/Plan: Results shared with patient and her family member. Patient advise to elevate ice and rest her right lower extremity when she gets home. She should continue to take her previously ordered pain medication as needed. Patient and her daughter verbalized understanding and are in agreement with plan. Differential Diagnosis Differential diagnosis: Likely syncope, fracture of wrist and other (R hip fracture, R knee dislocation, R tib/fib fracture, R ankle fracture) Imaging Data Attestation: I personally reviewed and interpreted this imaging study as follows: Radiologist's impression: Impressions Knee X-Ray 09/27/24 11:10 IMPRESSION: 1. Likely subcutaneous hematoma anterior to the proximal right tibia. 2. Degenerative skeletal changes as detailed above but no acute osseous abnormality of the right lower leg from the knee through the midfoot. Tibia/Fibula X-Ray 09/27/24 11:10 IMPRESSION: 1. Likely subcutaneous hematoma anterior to the proximal right tibia. 2. Degenerative skeletal changes as detailed above but no acute osseous abnormality of the right lower leg from the knee through the midfoot. Hip X-Ray 09/27/24 11:15 IMPRESSION: 1. Severe lumbar spondylosis. No acute osseous abnormality. Ankle X-Ray 09/27/24 11:19 IMPRESSION: 1. 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 No acute osseous abnormality. 2. Heterotopic ossicles along the disc margin of the medial malleolus likely sequela of chronic deltoid ligament sprain. Wrist X-Ray 09/27/24 11:29 IMPRESSION: 1. No acute osseous abnormality. 2. Polyarticular osteoarthritis, moderate to severe at the first carpometacarpal joint and otherwise mild. Discharge Plan Discharge Clinical Impression: Acute pain of right hip, Lower extremity injury, Lower extremity pain, Hematoma of right lower leg Patient Disposition: Home, Self-Care Condition: Stable Instructions: Antibiotic Form, Contusion in Adults (ED) Additional Instructions: Discussed with patient results of workup and diagnosis. Discussed need for follow-up with primary care, proper use of medication, and reasons to return to the emergency department, including shortness of breath and extreme swelling. Patient understands and agrees to current treatment plan. Prescriptions: No Action gabapentin 300 mg capsule 300 mg PO TID (DME) comp.stocking,knee,long,medium Misc See Rx Instructions .Route Qty: 12 0RF Rx Instructions: As directed glucagon 3 mg/actuation spray,non-aerosol 3 mg intranasal ONCE Qty: 2 4RF Rx Instructions: as a single dose; may repeat once in 15 minutes if no response glucose [Dex4 Glucose] 4 gram tablet,chewable 16 g PO Q15M PRN (Reason: hypoglycemia) Qty: 60 1RF Rx Instructions: until symptoms of low blood sugar are controlled dicyclomine 10 mg capsule 10 mg PO TID PRN (Reason: Abdominal Discomfort) acetaminophen 500 mg Capsule 500 mg PO Q6H Chloraseptic Sore Throat 6-10 mg Lozenge 1 teresita PO PRN PRN (Reason: Sore Throat) Qty: 18 2RF sennosides-docusate sodium [Senokot-S] 8.6-50 mg Tablet 1 tab-cap PO Q12H PRN (Reason: constipation) Qty: 90 1RF famotidine 20 mg Tablet 20 mg PO Q12HR Qty: 90 1RF ergocalciferol (vitamin D2) 1,250 mcg (50,000 unit) Capsule 1,250 mcg PO WEEKLY Patient Comments: takes on tuesday Rx Instructions: on docusate sodium 100 mg capsule 1 cap PO DAILY tamsulosin 0.4 mg Capsule 0.4 mg PO QAM Qty: 30 0RF ezetimibe 10 mg tablet 10 mg PO DAILY Januvia 25 mg tablet 25 mg PO DAILY melatonin 5 mg Tablet 5 mg PO HS atorvastatin 80 mg tablet 80 mg PO HS allopurinol 100 mg tablet 100 mg PO DAILY hydrocodone-acetaminophen 10-325 mg tablet 1 tablet PO Q8H PRN (Reason: Pain (Scale Score 4-6)) amiodarone 200 mg tablet 200 mg PO DAILY Eliquis 5 mg tablet 5 mg PO Q12H carvedilol 12.5 mg tablet 12.5 mg PO Q12H Qty: 60 5RF Rx Instructions: must administer with a meal/food furosemide 20 mg tablet 20 mg PO QAM Qty: 30 5RF Follow-up/Referrals: Oh Goode MD [Primary Care Provider] - Time of Disposition: 12:17
[2024-09-27] MEDS: HYDROcodone/acetaminophen (*CRX) 5-325 MG TABLET 1 TAB PO (09:56)
[2024-09-27 12:21] VITALS: BP 167/88; PULSE 62; RESP 13; O2SAT 97
== END 2024-09-27 12:31 | disposition home or self-care (01) ==
PROVIDERS: Emergency Provider Registered Nurse; PCP Family Medicine
DX: S80.11XA Contusion of right lower leg, initial encounter (principal); S79.911A Unspecified injury of right hip, initial encounter; I48.92 Unspecified atrial flutter; E11.22 Type 2 diabetes mellitus with diabetic chronic kidney disease; I13.0 Hypertensive heart and chronic kidney disease with heart failure and stage 1 through stage 4 chronic kidney disease, or unspecified chronic kidney disease; N18.30 Chronic kidney disease, stage 3 unspecified; I50.9 Heart failure, unspecified; E11.42 Type 2 diabetes mellitus with diabetic polyneuropathy; E78.5 Hyperlipidemia, unspecified; E55.9 Vitamin D deficiency, unspecified; D63.8 Anemia in other chronic diseases classified elsewhere; G47.33 Obstructive sleep apnea (adult) (pediatric); M10.9 Gout, unspecified; M79.7 Fibromyalgia; K21.9 Gastro-esophageal reflux disease without esophagitis; Z87.11 Personal history of peptic ulcer disease; Z86.73 Personal history of transient ischemic attack (TIA), and cerebral infarction without residual deficits; Z90.710 Acquired absence of both cervix and uterus; Z79.01 Long term (current) use of anticoagulants; Z79.84 Long term (current) use of oral hypoglycemic drugs; Z79.899 Other long term (current) drug therapy; W07.XXXA Fall from chair, initial encounter; M47.816 Spondylosis without myelopathy or radiculopathy, lumbar region; M19.031 Primary osteoarthritis, right wrist; M18.9 Osteoarthritis of first carpometacarpal joint, unspecified; M19.041 Primary osteoarthritis, right hand; M19.071 Primary osteoarthritis, right ankle and foot
CPT/HCPCS: 73110; 73502; 73564; 73590; 73610; 99284; A9270

== ENCOUNTER 2024-10-26 15:39 | Emergency (ER) | payer MEDICARE, SELFPAY ==
--- NOTE | ~2024-10-26 | US_ITS ---
EXAMINATION: US venous doppler LE RT DATE: 10/26/2024 18:02 INDICATION: Right lower limb pain. TECHNIQUE: Grayscale ultrasound images without and with compression and Doppler ultrasound images of the right lower extremity veins were obtained. COMPARISON: Ultrasound 10/03/2023 FINDINGS: The visualized portions of right common femoral vein, profunda (deep) femoral vein, femoral vein, pop liteal vein, peroneal veins, posterior tibial veins, and greater saphenous vein outflow are patent. IMPRESSION: 1. No deep venous thrombosis. Reviewed, dictated and finalized at location A. [employer]ED[employer] SERVICES COORDINATOR
[2024-10-26 15:48] VITALS: BP 115/62; PULSE 69; RESP 16; TEMP 36.1; O2SAT 97
[2024-10-26 16:09] LABS: Glucose Point of Care 194 mg/dl (65-105)
--- NOTE | 2024-10-26 17:04 | ED.WOUNDLAC ---
HPI - Wound/Laceration General Chief Complaint: Wound/Laceration Stated Complaint: Wound Time Seen by Provider: 10/26/24 16:35 Source: patient Mode of arrival: ambulatory Limitations: no limitations History of Present Illness HPI narrative: Patient is a 79-year-old female who presents the ED with concern for infection to her right lower leg. Patient had a fall approximately 1 month ago and sustained a hematoma to her right lower leg. She was seen in the ED at that time, x-ray imaging was negative for fracture, but did show traumatic hematoma to right moyer. Family states it has decreased in size since the original injury, however over the last few days, she has noticed some redness surrounding hematoma to her right lower leg. She states her primary doctor sent her here for possible IV antibiotics. Patient denies any fever. She is a diabetic. Denies significant pain. Does also have a hematoma to her right lateral hip. Related Data Home Medications ?Medication ?Instructions ?Recorded ?Confirmed ?Last Taken ?Type gabapentin 300 mg capsule 300 mg PO TID 12/07/19 10/17/24 09/26/23 08:00 History ergocalciferol (vitamin D2) 1,250 1,250 mcg PO WEEKLY 02/22/21 10/17/24 01/11/24 09:00 History mcg (50,000 unit) capsule docusate sodium 100 mg capsule 1 cap PO DAILY 05/04/22 10/17/24 09/26/23 09:00 History dicyclomine 10 mg capsule 10 mg PO TID PRN Abdominal 03/27/23 10/17/24 Unknown History Discomfort allopurinol 100 mg tablet 100 mg PO DAILY 09/15/23 10/17/24 09/26/23 09:00 History atorvastatin 80 mg tablet 80 mg PO HS 09/15/23 10/17/24 09/25/23 21:00 History ezetimibe 10 mg tablet 10 mg PO DAILY 09/15/23 10/17/24 09/26/23 09:00 History hydrocodone 10 mg-acetaminophen 1 tablet PO Q8H PRN Pain (Scale 09/15/23 10/17/24 09/26/23 09:00 History 325 mg tablet Score 4-6) melatonin 5 mg tablet 5 mg PO HS 09/15/23 10/17/24 09/25/23 21:00 History sitagliptin phosphate 25 mg tablet 25 mg PO DAILY 09/15/23 10/17/24 09/26/23 09:00 History (Januvia) acetaminophen 500 mg capsule 500 mg PO Q6H 09/26/23 10/17/24 Unknown History amiodarone 200 mg tablet 200 mg PO DAILY 01/16/24 10/17/24 Unknown History apixaban 5 mg tablet (Eliquis) 5 mg PO Q12H 01/16/24 10/17/24 Unknown History Allergies Allergy/AdvReac Type Severity Reaction Status Date / Time ceftriaxone Allergy Unknown Anaphylaxis Verified 10/26/24 15:40 clindamycin Allergy Unknown Anaphylaxis Verified 10/26/24 15:40 Penicillins Allergy Unknown Hives Verified 10/26/24 15:40 morphine AdvReac Unknown Vomiting Verified 10/26/24 15:40 nitroglycerin AdvReac Unknown Headache Verified 10/26/24 15:40 Review of Systems Review of Systems: All systems reviewed & are unremarkable except as noted in HPI. All systems reviewed & are unremarkable except as noted in HPI and below PMFSH Past Medical History Medical History Peptic ulcer Type 2 diabetes mellitus Chronic anticoagulation Cholelithiasis Paroxysmal atrial flutter Fibromyalgia Vitamin D deficiency Osteoarthritis Depression with anxiety Anemia of chronic disease Cerebrovascular accident 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 Congestive heart failure History of reduced ejection fraction with improvement in EF to 55% on most recent echo. Diastolic dysfunction also noted. Obstructive sleep apnea on CPAP Dyslipidemia Essential hypertension Hypersomnia Stage III chronic kidney disease Baseline creatinine ranges between 1.3 and 1.60. Surgical History Surgical History History of left breast biopsy Benign pathology. History of appendectomy History of cardiac catheterization (07/2013) Normal coronaries although anomalous left coronary artery arising from the right ostium was noted. History of hysterectomy (1979) Family History Family History Father Malignant neoplasm of prostate Heart disease Mother Esophageal cancer Sibling Diabetes mellitus Daughter Alcoholism Social History Social History Social History: Surrogate medical decision maker: Mikki Herrera, daughter. Code status: Full Code. Smoking status: Never smoker Second hand tobacco smoke exposure: No Alcohol intake: current Drinks per week: 1 Alcohol use details: Rare alcohol use in moderation. Substance use: never Substance use type: does not use Do You Feel Safe in your Home?: Yes Lack of Transportation: No Lack of Food: Never True Current Housing: I Have Housing Concerned About Future Housing: No Difficulty Paying Gas/Electric Bills: No Difficulty Paying for Meds: No Currently Unemployed: No Education: High School Diploma/GED Difficulty w/ Childcare or Family Care: No Additional living arrangements comments: . Lives with daughter Mikki in [place]. 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 Spiritual care concerns: No Exam Narrative: GENERAL: Chronically ill-appearing, elderly, obese with BMI of 32.8, non-toxic, in no acute distress. HEAD: Normocephalic, atraumatic. RESPIRATORY: Airway patent, respirations nonlabored. CARDIOVASCULAR: Regular rate and rhythm without murmurs, rubs, or gallops. pedal pulses intact. MUSCULOSKELETAL: Moves all extremities. Large deformity to right anterior mid moyer with some ecchymosis present, no significant tenderness. mild amount of surrounding erythema and extending distally down anterior right lower leg. No significant warmth. No drainage. No fluctuance to suggest abscess formation. There is also hematoma formation present to right lateral hip, without tenderness. SKIN: Warm, dry, normal color. NEURO: A&O X3. Speech clear. Cranial nerves II-XII grossly intact. Steady gait. No ataxic movements. PSYCHIATRIC: Appropriate mood and affect. Normal interaction. Course Vital Signs Vital signs: Vital Signs Temperature 97.0 F L 10/26/24 15:48 Pulse Rate 69 10/26/24 15:48 Respiratory Rate 16 10/26/24 15:48 Blood Pressure 115/62 10/26/24 15:48 Pulse Oximetry 97 10/26/24 15:48 Oxygen Delivery Room Air 10/26/24 15:48 Temperature 97.0 F L 10/26/24 15:48 Pulse Rate 69 10/26/24 15:48 Respiratory Rate 16 10/26/24 15:48 Blood Pressure 115/62 10/26/24 15:48 Pulse Oximetry 97 10/26/24 15:48 Oxygen Delivery Room Air 10/26/24 15:48 MDM - Wound/Laceration MDM Narrative Medical decision making narrative: Patient presented to ED with concern for infection of hematoma. One month out from original injury, evidence of hematoma on x-ray imaging after initial in tree. No recurrent injury. Exam is consistent with traumatic hematoma. No evidence of abscess. There is some surrounding erythema, but no significant warmth, no drainage. Vital signs are stable. Afebrile. Venous Doppler ultrasound was obtained and negative for DVT. Will start patient on doxycycline for possible mild cellulitis and recommended close follow-up with PCP for further evaluation and continued management. Feel symptoms are very mild at this time. No indication for admission or IV antibiotics, do not feel additional laboratory testing are necessary at this time. Patient given Jarret bandage in the ED. Given strict return precautions. She agrees with plan and would prefer to go home. Does not wish to be admitted. Discharged in stable condition. Medical Records Attestation: I reviewed the patient's medical records. Lab Data Attestation: I reviewed the patient's lab results. Labs: Lab Results 10/26/24 Range/Units 16:07 POC Capillary Glucose 194 H (65-105) mg/dl Imaging Data Attestation: I personally reviewed and interpreted this imaging study as follows: Radiologist's impression: ITS Impressions Venous Doppler Study 10/26/24 18:08 IMPRESSION: 1. No deep venous thrombosis. Discharge Plan Discharge Clinical Impression: Hematoma of right lower leg, Cellulitis of right lower leg Patient Disposition: Home, Self-Care Condition: Stable Instructions: Antibiotic Form, Cellulitis (ED), Hematoma (ED), Bone Bruise (ED) Additional Instructions: Take antibiotics as prescribed for superficial skin infection (cellulitis). Recommended warm compresses to right lower leg, Jarret bandage for compression to prevent further swelling. Follow-up closely with your primary care doctor for further evaluation. Return to the ED if you experience worsening or severe redness, swelling, pus-like drainage, recurrent injury, persistent fevers, uncontrolled blood sugars, or any other symptoms of concern. Patient Language: Khmer Prescriptions: New doxycycline monohydrate 100 mg tablet 100 mg PO BID 7 Days Qty: 14 0RF No Action gabapentin 300 mg capsule 300 mg PO TID (DME) comp.stocking,knee,long,medium Misc See Rx Instructions .Route Qty: 12 0RF Rx Instructions: As directed glucagon 3 mg/actuation spray,non-aerosol 3 mg intranasal ONCE Qty: 2 4RF Rx Instructions: as a single dose; may repeat once in 15 minutes if no response glucose [Dex4 Glucose] 4 gram tablet,chewable 16 g PO Q15M PRN (Reason: hypoglycemia) Qty: 60 1RF Rx Instructions: until symptoms of low blood sugar are controlled dicyclomine 10 mg capsule 10 mg PO TID PRN (Reason: Abdominal Discomfort) acetaminophen 500 mg Capsule 500 mg PO Q6H Chloraseptic Sore Throat 6-10 mg Lozenge 1 teresita PO PRN PRN (Reason: Sore Throat) Qty: 18 2RF sennosides-docusate sodium [Senokot-S] 8.6-50 mg Tablet 1 tab-cap PO Q12H PRN (Reason: constipation) Qty: 90 1RF famotidine 20 mg Tablet 20 mg PO Q12HR Qty: 90 1RF ergocalciferol (vitamin D2) 1,250 mcg (50,000 unit) Capsule 1,250 mcg PO WEEKLY Patient Comments: takes on tuesday Rx Instructions: on docusate sodium 100 mg capsule 1 cap PO DAILY tamsulosin 0.4 mg Capsule 0.4 mg PO QAM Qty: 30 0RF ezetimibe 10 mg tablet 10 mg PO DAILY Januvia 25 mg tablet 25 mg PO DAILY melatonin 5 mg Tablet 5 mg PO HS atorvastatin 80 mg tablet 80 mg PO HS allopurinol 100 mg tablet 100 mg PO DAILY hydrocodone-acetaminophen 10-325 mg tablet 1 tablet PO Q8H PRN (Reason: Pain (Scale Score 4-6)) amiodarone 200 mg tablet 200 mg PO DAILY Eliquis 5 mg tablet 5 mg PO Q12H carvedilol 12.5 mg tablet 12.5 mg PO Q12H Qty: 60 5RF Rx Instructions: must administer with a meal/food furosemide 20 mg tablet 20 mg PO QAM Qty: 30 5RF Follow-up/Referrals: Emily,Kyree Dong, [employer] MACHINE OPERATOR [Primary Care Provider] - Time of Disposition: 18:37
[2024-10-26] MEDS: DOXYCYCLINE HYCLATE 100 MG TABLET PO (18:14)
[2024-10-26 18:48] VITALS: BP 138/71; PULSE 70; RESP 18; O2SAT 98
== END 2024-10-26 18:50 | disposition home or self-care (01) ==
PROVIDERS: Emergency Provider Physician Assistant; PCP Registered Nurse
DX: L03.115 Cellulitis of right lower limb (principal); S80.11XA Contusion of right lower leg, initial encounter; R22.41 Localized swelling, mass and lump, right lower limb; I13.0 Hypertensive heart and chronic kidney disease with heart failure and stage 1 through stage 4 chronic kidney disease, or unspecified chronic kidney disease; I50.9 Heart failure, unspecified; E11.22 Type 2 diabetes mellitus with diabetic chronic kidney disease; N18.30 Chronic kidney disease, stage 3 unspecified; I48.92 Unspecified atrial flutter; E11.42 Type 2 diabetes mellitus with diabetic polyneuropathy; E78.5 Hyperlipidemia, unspecified; E55.9 Vitamin D deficiency, unspecified; M19.90 Unspecified osteoarthritis, unspecified site; M79.7 Fibromyalgia; G47.33 Obstructive sleep apnea (adult) (pediatric); F41.8 Other specified anxiety disorders; Z86.73 Personal history of transient ischemic attack (TIA), and cerebral infarction without residual deficits; Z87.11 Personal history of peptic ulcer disease; Z90.710 Acquired absence of both cervix and uterus; Z79.84 Long term (current) use of oral hypoglycemic drugs; Z79.01 Long term (current) use of anticoagulants; Z79.899 Other long term (current) drug therapy; X58.XXXA Exposure to other specified factors, initial encounter
CPT/HCPCS: 82948; 93971; 99284; A9270

== ENCOUNTER 2024-11-06 11:04 | Outpatient (CLI) | payer MEDICARE, SELFPAY ==
[2024-11-06 12:55] LABS: Anion Gap 2 mmol/L (4-12); Blood Urea Nitrogen 46 mg/dL (7-17); Calcium 8.7 mg/dL (8.4-10.2); Carbon Dioxide 28 mmol/L (22-30); Chloride 107 mmol/L (98-107); Estimated Glomerular Filt Rate 16; Glucose 117 mg/dL (65-110); Potassium 4.7 mmol/L (3.4-5.0); Sodium 137 mmol/L (137-145)
== END 2024-11-06 11:05 | disposition home or self-care (01) ==
LOC: ANHLAB 11:06
PROVIDERS: PCP Family Medicine; Visit Provider Internal Medicine Nephrology
DX: N18.4 Chronic kidney disease, stage 4 (severe) (principal)
CPT/HCPCS: 36415; 80048

== ENCOUNTER 2024-11-11 18:02 | Emergency (ER) | payer MEDICARE, SELFPAY ==
--- NOTE | ~2024-11-11 | XR_ITS ---
CHEST RADIOGRAPH CLINICAL HISTORY: cp . COMPARISON: 07/03/2024 TECHNIQUE: Single portable view of the chest. FINDINGS The cardiomediastinal silhouette is enlarged, unchanged. The lungs are clear. Visualized osseous structures and soft tissues are unremarkable. IMPRESSION: No focal infiltrate or effusion. Reviewed, dictated and finalized at location A. LER CHEF OR COOK
--- NOTE | ~2024-11-11 | XR_ITS ---
HISTORY: anterior moyer hematoma s/p injury COMPARISON: None TECHNIQUE: 2 views of the right tibia and fibula were performed. FINDINGS: No acute or subacute fracture. Joint spaces are markedly narrowed and alignment is unremarkable. Significant soft tissue swelling within the area of clinical concern. Dense vascular calcifications are also noted. IMPRESSION: Soft tissue abnormality without underlying fracture. Reviewed, dictated and finalized at location A. DENT CARE MANAGER RN
--- NOTE | 2024-11-11 18:09 | ECG_ITS ---
Test Date: 2024-11-11 18:23:26 Measurements Intervals [place] Rate: 71 P: -85 WV: 127 QRS: -55 QRSD: 152 T: 67 QT: 421 QTc: 459 Interpretive Statements SINUS RHTYHM WITH FIRST DEGREE AV BLOCK LEFT AXIS DEVIATION [QRS AXIS < -30] LEFT BUNDLE BRANCH BLOCK [120+ ms QRS DURATION, 80+ ms Q/S IN V1/V2, 85+ ms R IN I/aVL/V5/V6] Compared to ECG 07/03/2024 16:14:12 NO SIGNIFICANT CHANGES Electronically Signed On 11-14-2024 16:49:12 HUMAN RESOURCE OFFICER by Stuart Escobar M.D.
[2024-11-11 18:10] VITALS: BP 141/64; PULSE 74; RESP 16; TEMP 36.8; O2SAT 99
[2024-11-11 18:32] VITALS: PULSE 70; O2SAT 97
[2024-11-11 18:33] VITALS: BP 133/64; PULSE 69; RESP 16; O2SAT 99
--- NOTE | 2024-11-11 18:52 | ED.CHESTPAIN ---
HPI - Chest Pain General Chief Complaint: Chest Pain Stated Complaint: cp, cough, soreness Time Seen by Provider: 11/11/24 18:27 History of Present Illness HPI narrative: 79-year-old female with a past medical history including coronary disease, CKD, CHF, previous strokes with residual right-sided weakness and speech deficits, COPD. Today she presents with her family members for concerns of a productive cough and chest pain. They concerned that she has pneumonia. She has had recent sick contacts over the holidays. Patient denies any shortness a breath but states that when she coughs or moves she gets some chest discomfort. Endorses body soreness, productive cough, denies any fevers, chills, abdominal pain, back pain, symptoms. No new weakness or fatigue. States that she was otherwise in her normal state of health yesterday and her symptoms started today. No other recent illnesses. She did fall about 1 month ago and still has hematoma to her right moyer that she wants to get evaluated. Related Data Home Medications ?Medication ?Instructions ?Recorded ?Confirmed ?Last Taken ?Type gabapentin 300 mg capsule 300 mg PO TID 12/07/19 10/17/24 09/26/23 08:00 History ergocalciferol (vitamin D2) 1,250 1,250 mcg PO WEEKLY 02/22/21 10/17/24 01/11/24 09:00 History mcg (50,000 unit) capsule docusate sodium 100 mg capsule 1 cap PO DAILY 05/04/22 10/17/24 09/26/23 09:00 History dicyclomine 10 mg capsule 10 mg PO TID PRN Abdominal 03/27/23 10/17/24 Unknown History Discomfort allopurinol 100 mg tablet 100 mg PO DAILY 09/15/23 10/17/24 09/26/23 09:00 History atorvastatin 80 mg tablet 80 mg PO HS 09/15/23 10/17/24 09/25/23 21:00 History ezetimibe 10 mg tablet 10 mg PO DAILY 09/15/23 10/17/24 09/26/23 09:00 History hydrocodone 10 mg-acetaminophen 1 tablet PO Q8H PRN Pain (Scale 09/15/23 10/17/24 09/26/23 09:00 History 325 mg tablet Score 4-6) melatonin 5 mg tablet 5 mg PO HS 1110/17/24 09/25/23 21:00 History sitagliptin phosphate 25 mg tablet 25 mg PO DAILY 09/15/23 10/17/24 09/26/23 09:00 History (Januvia) acetaminophen 500 mg capsule 500 mg PO Q6H 09/26/23 10/17/24 Unknown History amiodarone 200 mg tablet 200 mg PO DAILY 01/16/24 10/17/24 Unknown History apixaban 5 mg tablet (Eliquis) 5 mg PO Q12H 01/16/24 10/17/24 Unknown History Allergies Allergy/AdvReac Type Severity Reaction Status Date / Time ceftriaxone Allergy Unknown Anaphylaxis Verified 11/11/24 18:34 clindamycin Allergy Unknown Anaphylaxis Verified 11/11/24 18:34 Penicillins Allergy Unknown Hives Verified 11/11/24 18:34 morphine AdvReac Unknown Vomiting Verified 11/11/24 18:34 nitroglycerin AdvReac Unknown Headache Verified 11/11/24 18:34 Review of Systems Review of Systems: As reviewed above in [facility] Past Medical History Medical History Peptic ulcer Type 2 diabetes mellitus Chronic anticoagulation Cholelithiasis Paroxysmal atrial flutter Fibromyalgia Vitamin D deficiency Osteoarthritis Depression with anxiety Anemia of chronic disease Cerebrovascular accident 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 Congestive heart failure History of reduced ejection fraction with improvement in EF to 55% on most recent echo. Diastolic dysfunction also noted. Obstructive sleep apnea on CPAP Dyslipidemia Essential hypertension Hypersomnia Stage III chronic kidney disease Baseline creatinine ranges between 1.3 and 1.60. Surgical History Surgical History History of left breast biopsy Benign pathology. History of appendectomy History of cardiac catheterization (07/2013) Normal coronaries although anomalous left coronary artery arising from the right ostium was noted. History of hysterectomy (1979) Family History Family History Father Malignant neoplasm of prostate Heart disease Mother Esophageal cancer Sibling Diabetes mellitus Daughter Alcoholism Social History Social History Social History: Surrogate medical decision maker: Mikki Herrera, daughter. Code status: Full Code. Smoking status: Never smoker Second hand tobacco smoke exposure: No Alcohol intake: current Drinks per week: 1 Alcohol use details: Rare alcohol use in moderation. Substance use: never Substance use type: does not use Do You Feel Safe in your Home?: Yes Lack of Transportation: No Lack of Food: Never True Current Housing: I Have Housing Concerned About Future Housing: No Difficulty Paying Gas/Electric Bills: No Difficulty Paying for Meds: No Currently Unemployed: No Education: High School Diploma/GED Difficulty w/ Childcare or Family Care: No Additional living arrangements comments: . Lives with daughter Mikki in [place]. 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 Spiritual care concerns: No Exam Narrative: GENERAL: Not in any acute distress, overall well-appearing, does cough frequently through the examination but nonproductive HEAD: [Normocephalic, atraumatic.] EYES: [PERRLA and EOMI.] ENT: Nares clear, no rhinorrhea or epistaxis. Mucous membranes moist. NECK: Supple. CHEST: Vesicular clear breath sounds throughout both lung conroy, no tachypnea respiratory distress no wheezing or rhonchi. HEART: [Regular rate and rhythm]. No murmur heard. [Normal peripheral pulses.] ABDOMEN: [Soft, nondistended], [nontender], [No rigidity or guarding] EXTREMITIES: Normal range of motion. [No edema.] Right lower extremity anterior moyer does have a hematoma that appears to be resolving from previous description and imaging provided by patient family no tenderness. SKIN: Warm, dry, no rash. NEURO: No obvious or new focal deficits, moves all extremities, no facial asymmetries. Alert and oriented [x3.] PSYCH: [Normal mood and affect.] Course Vital Signs Vital signs: Vital Signs Temperature 36.8 C 11/11/24 18:10 Pulse Rate 74 11/11/24 18:10 Respiratory Rate 16 11/11/24 18:10 Blood Pressure 141/64 H 11/11/24 18:10 Pulse Oximetry 99 11/11/24 18:10 Oxygen Delivery Room Air 11/11/24 18:10 Temperature 36.8 C 11/11/24 18:10 Pulse Rate 69 11/11/24 18:33 Respiratory Rate 16 11/11/24 18:33 Blood Pressure 133/64 11/11/24 18:33 Pulse Oximetry 99 11/11/24 18:33 Oxygen Delivery Room Air 11/11/24 18:32 MDM - Chest Pain MDM Narrative Medical decision making narrative: 79-year-old female with history of coronary disease, CKD, CHF and prior stroke. She also has a COPD history and residual right-sided weakness and speech deficits. Patient presents to the emergency department today with her family member for concerns of a productive cough am concerned that she has pneumonia. She has had some chest discomfort with coughing and movement that started today but denies any fever, chills, abdominal pain, back pain, headache or vision changes. She was otherwise in her normal state of health yesterday. No new medication changes. She is saturating well on room air, no tachycardia, tachypnea or hypoxia. Normal blood pressure. Clinical exam is reassuring, she is not ill appearing, clear breath sounds throughout all lung conroy, warm well-perfused extremities throughout. Patient does cough frequently throughout the examination. Concern presently is for viral upper respiratory infection versus lower respiratory infection versus pneumonia. She does have strong history that does raise suspicion for ACS although less likely in this clinical setting. Will evaluate with CBC, CMP, troponin, EKG, BNP, COVID fluid RSV swabs, chest x-ray. Workup shows no leukocytosis or anemia worse than her baseline. Normal platelet count. Negative troponin. Unremarkable electrolyte profile. She does have a chronic CKD stage IV, no acute interval worsening. BNP mildly elevated at 1920 but better than her previous levels. Testing positive for influenza A, negative for COVID and RSV. Chest x-rays independent reviewed and shows no infiltrate or effusion. No pneumonia identified. Tib-fib x-ray shows soft tissue swelling but no underlying fracture. Consistent patient's resolving hematoma. Patient did test positive for influenza A. I discussed with the patient the risks and benefits of Tamiflu initiation but given patient's significant comorbidities she did agree to take Tamiflu. She was given a renally adjusted dose of 30 mg here in the emergency department and will be sent home with 30 mg every day for 4 more days in adjustment with her renal dysfunction from traditional dosing after consult with the on-call pharmacist. Patient and family were comfortable with this plan of care including follow-up with her PCP and discharge with isolation and return precautions. Medical Records Data Attestation: I reviewed the patient's medical records. Lab Data Attestation: I reviewed the patient's lab results. 11/11/24 18:40 11/11/24 18:40 Labs: Lab Results 11/11/24 11/11/24 Range/Units 18:40 19:46 WBC 4.8 (4.5-10.0) K/mm3 RBC 3.13 L (4.2-5.4) M/mm3 Hgb 10.4 L (12.0-15.0) g/dL Hct 32.7 L (37.0-47.0) % MCV 104.5 H (80-100) fl MCH 33.2 (26-34) pg MCHC 31.8 L (32-36) g/dl RDW 16.3 H (11.5-14.5) % Plt Count 220 (150-375) k/mm3 MPV 10.0 (7.4-10.4) fl Immature Gran % (Auto) 0.4 (0-0.5) % Neut % (Auto) 87.2 H (45.5-73.1) % Lymph % (Auto) 6.7 L (18.3-44.2) % [place] % (Auto) 3.4 (2.6-8.5) % Eos % (Auto) 1.7 (0-4.4) % Baso % (Auto) 0.6 (0.2-1.2) % Lymph # (Auto) 0.32 L (0.9-3.2) K/mm3 [place] # (Auto) 0.2 (0.1-0.6) K/mm3 Eos # (Auto) 0.1 (0-0.3) K/mm3 Baso # (Auto) 0.0 (0.0-0.1) K/mm3 Abs Immat Gran (auto) 0.02 (0.00-0.031) K/mm3 Absolute Neuts (auto) 4.2 (1.3-6.7) K/mm3 Absolute Nucleated RBC 0.000 (0.0-0.012) K/mm3 Nucleated RBC % 0.0 (0.0-0.2) % PT 17.7 H (11.1-14.7) Seconds INR 1.4 APTT 32.4 (22.3-36.8) Seconds Sodium 136 L (137-145) mmol/L Potassium 4.3 (3.4-5.0) mmol/L Chloride 106 (98-107) mmol/L Carbon Dioxide 29 (22-30) mmol/L Anion Gap 1 L (4-12) mmol/L BUN 49 H (7-17) mg/dL Creatinine 3.60 H (0.7-1.0) mg/dL Estim Creat Clear Calc Not Reportable Estimated GFR 12 L (59 - ) Glucose 191 H (65-110) mg/dL Calcium 8.4 (8.4-10.2) mg/dL Total Bilirubin 0.4 (0.2-1.3) mg/dL AST 30 (14-36) U/L ALT 16 (6-35) U/L Alkaline Phosphatase 78 (38-126) U/L Troponin I 0.024 (0.000-0.034) ng/mL NT-Pro-B Natriuret Pep 1920 H (19.9-100) pg/mL Total Protein 6.0 L (6.3-8.2) g/dL Albumin 3.3 L (3.5-5.1) g/dL Lipase 86 (23-300) U/L Influenza A (RT-PCR) Positive A Pending (Negative) Influenza B (RT-PCR) Negative Pending (Negative) RSV (RT-PCR) Negative Pending (Negative) SARS-CoV-2 RNA (RT-PCR) Negative Pending (Negative) Imaging Data Attestation: I personally reviewed and interpreted this imaging study as follows: My impression: Impressions Chest X-Ray 11/11/24 19:38 IMPRESSION: No focal infiltrate or effusion. Tibia/Fibula X-Ray 11/11/24 19:39 IMPRESSION: Soft tissue abnormality without underlying fracture. Discharge Plan Discharge Clinical Impression: Influenza A, Atypical chest pain, URI (upper respiratory infection) Patient Disposition: Home, Self-Care Condition: Stable Instructions: Antibiotic Form, Oseltamivir (By mouth), Chest Pain (DC), Influenza (DC) Additional Instructions: you did test positive for influenza A which does explain her symptomatology. No pneumonia, your chest pain workup was otherwise reassuring, we have prescribed you Tamiflu which can shorten the duration and severity of influenza briefly but can cause side effects such as nausea. We will send you home with medications for symptom control. Follow-up with your regular doctor outpatient, return with any new or worsening concerns at any time. Patient Language: [place] Prescriptions: New ondansetron 4 mg tablet,disintegrating 4 mg PO Q8H PRN (Reason: nausea and vomiting) Qty: 10 0RF oseltamivir [Tamiflu] 30 mg capsule 30 mg PO DAILY 4 Days Qty: 4 0RF No Action gabapentin 300 mg capsule 300 mg PO TID (DME) comp.stocking,knee,long,medium Misc See Rx Instructions .Route Qty: 12 0RF Rx Instructions: As directed glucagon 3 mg/actuation spray,non-aerosol 3 mg intranasal ONCE Qty: 2 4RF Rx Instructions: as a single dose; may repeat once in 15 minutes if no response glucose [Dex4 Glucose] 4 gram tablet,chewable 16 g PO Q15M PRN (Reason: hypoglycemia) Qty: 60 1RF Rx Instructions: until symptoms of low blood sugar are controlled dicyclomine 10 mg capsule 10 mg PO TID PRN (Reason: Abdominal Discomfort) acetaminophen 500 mg Capsule 500 mg PO Q6H Chloraseptic Sore Throat 6-10 mg Lozenge 1 teresita PO PRN PRN (Reason: Sore Throat) Qty: 18 2RF sennosides-docusate sodium [Senokot-S] 8.6-50 mg Tablet 1 tab-cap PO Q12H PRN (Reason: constipation) Qty: 90 1RF famotidine 20 mg Tablet 20 mg PO Q12HR Qty: 90 1RF doxycycline monohydrate 100 mg tablet 100 mg PO BID 7 Days Qty: 14 0RF ergocalciferol (vitamin D2) 1,250 mcg (50,000 unit) Capsule 1,250 mcg PO WEEKLY Patient Comments: takes on tuesday Rx Instructions: on docusate sodium 100 mg capsule 1 cap PO DAILY tamsulosin 0.4 mg Capsule 0.4 mg PO QAM Qty: 30 0RF ezetimibe 10 mg tablet 10 mg PO DAILY Januvia 25 mg tablet 25 mg PO DAILY melatonin 5 mg Tablet 5 mg PO HS atorvastatin 80 mg tablet 80 mg PO HS allopurinol 100 mg tablet 100 mg PO DAILY hydrocodone-acetaminophen 10-325 mg tablet 1 tablet PO Q8H PRN (Reason: Pain (Scale Score 4-6)) amiodarone 200 mg tablet 200 mg PO DAILY Eliquis 5 mg tablet 5 mg PO Q12H carvedilol 12.5 mg tablet 12.5 mg PO Q12H Qty: 60 5RF Rx Instructions: must administer with a meal/food furosemide 20 mg tablet 20 mg PO QAM Qty: 30 5RF Follow-up/Referrals: hO Goode MD [Primary Care Provider] - Time of Disposition: 20:06
[2024-11-11 19:01] LABS: Basophils Percent Auto 0.6 % (0.2-1.2); Eosinophils Absolute Auto 0.1 K/mm3 (0-0.3); Eosinophils Percent Auto 1.7 % (0-4.4); Hematocrit 32.7 % (37.0-47.0); Hemoglobin 10.4 g/dL (12.0-15.0); Immature Granulocyte Absolute 0.02 K/mm3 (0.00-0.031); Immature Granulocyte Percent A 0.4 % (0-0.5); Lymphocytes Absolute Auto 0.32 K/mm3 (0.9-3.2); Lymphocytes Percent Auto 6.7 % (18.3-44.2); Mean Corpuscular HGB Conc 31.8 g/dl (32-36); Mean Corpuscular Hemoglobin 33.2 pg (26-34); Mean Corpuscular Volume 104.5 fl (80-100); Monocytes Absolute Auto 0.2 K/mm3 (0.1-0.6); Monocytes Percent Auto 3.4 % (2.6-8.5); Neutrophils Absolute Auto 4.2 K/mm3 (1.3-6.7); Neutrophils Percent Auto 87.2 % (45.5-73.1); Platelet Count Result 220 k/mm3 (150-375); Red Blood Count 3.13 M/mm3 (4.2-5.4); Red Cell Distribution Width 16.3 % (11.5-14.5); White Blood Count 4.8 K/mm3 (4.5-10.0)
[2024-11-11 19:11] LABS: Alanine Aminotransferase 16 U/L (6-35); Albumin Level 3.3 g/dL (3.5-5.1); Alkaline Phosphatase 78 U/L (38-126); Anion Gap 1 mmol/L (4-12); Aspartate Amino Transferase 30 U/L (14-36); Bilirubin,Total 0.4 mg/dL (0.2-1.3); Blood Urea Nitrogen 49 mg/dL (7-17); Calcium 8.4 mg/dL (8.4-10.2); Carbon Dioxide 29 mmol/L (22-30); Chloride 106 mmol/L (98-107); Estimated Glomerular Filt Rate 12; Glucose 191 mg/dL (65-110); Lipase 86 U/L (23-300); Potassium 4.3 mmol/L (3.4-5.0); Sodium 136 mmol/L (137-145)
[2024-11-11 19:20] LABS: INR 1.4; Partial Thromboplastin Time 32.4 Seconds (22.3-36.8); Prothrombin Time 17.7 Seconds (11.1-14.7)
[2024-11-11 19:23] LABS: NT Pro B Type Natriuretic Pept 1920 pg/mL (19.9-100); Troponin I 0.024 ng/mL (0.000-0.034)
[2024-11-11 19:31] LABS: Influenza A QL RT-PCR Positive (Negative); Influenza B QL RT-PCR Negative (Negative); RSV RNA, RT-PCR Negative (Negative); SARS-CoV-2 RNA PCR Negative (Negative)
[2024-11-11] MEDS: ASPIRIN 81 MG CHEWABLE TABLET 324 MG PO (19:47)
[2024-11-11] MEDS: HYDROmorphone HCL INJ (*CRX) 1 MG/ML SYR IV PUSH (19:47)
[2024-11-11] MEDS: OSELTAMIVIR PHOSPHATE 30 MG CAPSULE PO (20:32)
[2024-11-11 20:33] LABS: Add Urine Microscopic? YES; Appearance Urine Clear (Clear); Bacteria Urine None Seen /hpf; Bilirubin Urine Negative (Negative); Blood Urine Negative (Negative); Color Urine Yellow (Yellow); Glucose Urine UA Trace mg/dL (Negative); Ketones Urine Negative (Negative); Leukocyte Esterase Ur Negative LEU/UL (Negative); Nitrate Urine Negative (Negative); Non Pathogenic Casts 0-2; Protein Urine 2+ mg/dL (Negative); RBC Urine 0-2 /hpf (0-2); Squamous Epithelial Cell Urine None Seen /hpf (Few); Urobilinogen Urine 0.2 mg/dL (<2.0); WBC Urine 0-5 /hpf (0-3)
[2024-11-11 20:38] LABS: Influenza A QL RT-PCR Positive (Negative); Influenza B QL RT-PCR Negative (Negative); RSV RNA, RT-PCR Negative (Negative); SARS-CoV-2 RNA PCR Negative (Negative)
[2024-11-11 20:47] VITALS: BP 140/67; PULSE 80; RESP 20; O2SAT 97
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
--- OUTSIDE RECORDS SUMMARY | 2024-11-18 08:47 | XMS_ITS | Encounter Summary ---
Author Organization [facility] Address [address] [place] [address]. [place], [place] [id number] [place] [id number] Care Team Providers Care Ammonium Nitrate Crystallizer Name Role Phone Oh Goode MD Primary Care Provider [phone] Encounter Details Date Type Department Care Team (Latest Contact Info) Description 03/27/2020 Travel Social History Tobacco Use Types Packs/Day Years [...] PM CDT documented as of this encounter Plan of Treatment Not on file documented as of this encounter Visit Diagnoses Not on filedocumented in this encounter Care Teams Ammonium Nitrate Crystallizer Relationship Specialty Start Date End Date Oh Goode MD [address] [place] [address] PCP - General FAMILY PRACTICE 01/26/20 documented as of this encounter
--- OUTSIDE RECORDS SUMMARY | 2024-11-18 08:47 | XMS_ITS | Encounter Summary ---
Author Organization [facility] Address [address] [place] [address]. [place] [address] [place] [address] Care Team Providers Care Source Inspector Name Role Phone Oh Goode MD Primary Care Provider [phone] Reason for Referral * Imaging (Emergency) - Closed Specialty Diagnoses / Procedures Referred By Contac t Referred To Contact RADIOLOGY Procedures CT LUMB SPINE WO CON Demond Heck MD [address] [address] Phone: tel: fax: Referral ID Status Reason Start Date Expiration Date Visits Re quested Visits Authorized [id number] Closed 10/19/2023 10/19/2024 1 1 ERY TENDER ENGINEER * Imaging (Emergency) - Closed Specialty Diagnoses / Procedures Referred By Contac t Referred To Contact RADIOLOGY Procedures CT THOR SPINE WO CON Demond Heck MD [address] [address] Phone: tel: fax: Referral ID Status Reason Start Date Expiration Date Visits Re quested Visits Authorized [id number] Closed 10/19/2023 10/19/2024 1 1 ERY TENDER ENGINEER * Imaging (Emergency) - Closed Specialty Diagnoses / Procedures Referred By Contac t Referred To Contact RADIOLOGY Procedures CT CERV SPINE WO CON Demond Heck MD [address] [address] Phone: tel: fax: Referral ID Status Reason Start Date Expiration Date Visits Re quested Visits Authorized [id number] Closed 10/19/2023 10/19/2024 1 1 ERY TENDER ENGINEER * Imaging (Emergency) - Closed Specialty Diagnoses / Procedures Referred By Contac t Referred To Contact RADIOLOGY Procedures CT HEAD WO CON Demond Heck MD [address] [address] Phone: tel: fax: Referral ID Status Reason Start Date Expiration Date Visits Re quested Visits Authorized [id number] Closed 10/19/2023 10/19/2024 1 1 ERY TENDER ENGINEER Reason for Visit * Reason Comments Fall Encounter Details Date Type Department Care Team (Late st Contact Info) Description 10/19/2023 6:50 PM CANNERY TENDER ENGINEER - 10/19/2023 9:59 PM CANNERY TENDER ENGINEER Emergency [facility] Emergency Room [address] [place] [id number] Demond Heck MD [address] [address] Fall Discharge Disposition: Home or Self Care (Routine Discharge) Social History Tobacco Use Types Packs/Day Years Used Date Smoking Tobacco: Never Smokeless Tobacco: Never Tobacco Cessation:Counseling Given: Not Answered Alcohol Use Standard Drinks/Week Comments Never 0 [...] on file Sexual Orientation Not on file documented as of this encounter Last Filed Vital Signs Vital Sign Reading Time Taken Comments Blood Pressure 137/71 10/19/2023 9:44 PM CANNERY TENDER ENGINEER Pulse 70 10/19/2023 9:44 PM CANNERY TENDER ENGINEER Temperature 36.6 ??C (97.9 ??F) 10/19/2023 6:55 PM CS T Respiratory Rate 18 10/19/2023 9:44 PM CANNERY TENDER ENGINEER Oxygen Saturation 97% 10/19/2023 9:44 PM CANNERY TENDER ENGINEER Inhaled Oxygen Concentration - - Weight 99.8 kg (220 lb) 10/19/2023 6:55 PM CANNERY TENDER ENGINEER Height 167.6 cm (5' 6 ) 10/19/2023 6:55 PM CANNERY TENDER ENGINEER Body Mass Index 35.51 10/19/2023 6:55 PM CANNERY TENDER ENGINEER documented in this encounter Discharge Instructions * Discharge Instructions* Demond Heck MD - 10/19/2023 9:32 PM CANNERY TENDER ENGINEER Return if worse or any other concerns. ERY TENDER ENGINEER * Attachments The following attachments cannot be sent through Care Everywhere. * Preventing falls in adults (Egyptian) documented in this encounter Medications at Time [...] 9 units, 351-400 11 units, >400 call Inject into the skin 3 (three) times daily before meals. Indications: ,70 glucose follow hypoglycemic protocol,70-150 0 inits insulin, 151-200 3 units, 201-250 5 units, 251-300 7 units, 301-350 9 units, 351-400 11 units, >400 call lisinopril 2.5 MG tablet Take 1 tablet [...] daily. vitamin D2, ergocalciferol, (VITAMIN D, ERGOCALCIFEROL,) 03572 UNITS capsule Take 1 capsule (50,000 Units total) by mouth. hydrocodone-aceta minophen 7.5-325 MG tabletIndications :1-2 tabs 1 tablet every 6 (six) hours as needed. Indications: 1-2 tabs 08/28/2019 4 documented as of this encounter ED Notes * Demond Heck MD - 10/19/2023 7:12 PM CST Chief Complaint Chief Complaint Patient presents with Fall History of Present Illness 78y F here following fall. Pt fell in bath tub. No associated LOC. Pt c/o right knee, left ankle and neck and back pain. Pt reports she is currently being treated for PNA. Medical History ALLERGIES: Review of patient's allergies indicates: Allergen Reactions Clindamycin GI Upset Morphine Vomiting Nsaids Unknown Penicillins Rash MEDICATIONS: Prior to Admission medications Medication Sig Start Date End Date Taking? Authorizing Provider atorvastatin 80 MG tablet Take 80 mg by mouth nightly at bedtime. [facility] benzocaine-menthol 15-[address] 1 lozenge inside cheek every 2 (two) hours as needed for Sore throat. [facility] budesonide-formoterol 160-4.5 MCG/ACT inhaler Inhale 2 puffs into the lungs 2 (two) times daily. [facility] carvedilol 12.5 MG tablet Take 12.5 mg by mouth 2 (two) times daily. [facility] diclofenac sodium 1 % gel Apply 2 g topically 4 (four) times daily. Apply to bilateral knees 01/26/20 ELLEN Melo ezetimibe 10 MG tablet Take 10 mg by mouth daily. [facility] fenofibrate 160 MG tablet Take 160 mg by mouth daily. [facility] furosemide 20 MG tablet Take 20 mg by mouth daily. [facility] gabapentin 300 MG capsule Take 300 mg by mouth 3 (three) times daily. [facility] glipiZIDE XL 10 MG 24 hr tablet Take 10 mg by mouth daily with breakfast. Do not break or crush tablet [facility] hydrocodone-acetaminophen 7.5-325 MG tablet 1 tablet every 6 (six) hours as needed. Indications: 1-2 tabs 08/28/19 [facility] INSULIN ASPART 100 UNIT/ML injection (VIAL) Inject into the skin 3 (three) times daily before meals. Indications: ,70 glucose follow hypoglycemic protocol,70-150 0 inits insulin, 151-200 3 units, 201-250 5 units, 251-300 7 units, 301-350 9 units, 351-400 11 units, >400 call MD [facility] lisinopril 2.5 MG tablet Take 2.5 mg by mouth daily. [facility] melatonin 5 MG tablet Take 3 mg by mouth daily. [facility] pantoprazole EC 40 MG tablet Take 40 mg by mouth daily. [facility] sertraline 50 MG tablet Take 50 mg by mouth daily. [facility] SITagliptin 100 MG tablet Take 100 mg by mouth daily. [facility] vitamin D2, ergocalciferol, (VITAMIN D, ERGOCALCIFEROL,) 92905 UNITS capsule Take 50,000 Units by mouth. [facility] PAST MEDICAL HISTORY: Past Medical History: Diagnosis Date Arthritis CHF (congestive heart failure) ([facility]HCC) ([facility]) COPD (chronic obstructive pulmonary disease) ([facility]/HCC) (CMS/HCC) Hypertension Pneumonia, unspecified organism Renal disorder Stroke ([facility]/HCC) ([facility]) PAST SURGICAL HISTORY: Past Surgical History: Procedure Laterality Date HYSTERECTOMY FAMILY HISTORY: No family history on file. SOCIAL HISTORY: Social History Tobacco Use Smoking status: Never Smokeless tobacco: Never Substance Use Topics Alcohol use: Never Drug use: Never Review of Systems Review of Systems Constitutional: Negative for fever. Respiratory: Positive for cough. Gastrointestinal: Negative for abdominal pain, nausea and vomiting. Physical Exam Filed Vitals: 10/19/23 1855 BP: 126/73 Pulse: 71 Resp: 18 Temp: 97.9 ??F (36.6 ??C) TempSrc: Oral SpO2: 97% Weight: 99.8 kg (220 lb) Height: 1.676 m (5' 6 ) Physical Exam Vitals and nursing note reviewed. Constitutional: Appearance: She is not toxic-appearing. HENT: Head: Normocephalic and atraumatic. Nose: Nose normal. Eyes: Conjunctiva/sclera: Conjunctivae normal. Cardiovascular: Rate and Rhythm: Normal rate. Heart sounds: Normal heart sounds. Pulmonary: Effort: Pulmonary effort is normal. Breath sounds: Normal breath sounds. Abdominal: General: There is no distension. Palpations: Abdomen is soft. Tenderness: There is no abdominal tenderness. Musculoskeletal: General: No deformity. Cervical back: No tenderness. Comments: Old bruising on b/l upper extremities. Tenderness to right knee. Tenderness to left ankle Skin: General: Skin is warm and dry. Neurological: Mental Status: She is alert and oriented to person, place, and time. Psychiatric: Mood and Affect: Mood normal. Diagnostic Studies / Procedures ELECTROCARDIOGRAMS: No results found for this visit on 10/19/23. LABORATORY STUDIES: No results found for this visit on 10/19/23. IMAGING STUDIES XR KNEE RT MIN 4V Final Result by User, [id number] (10/19 2115) Right knee 4 views INDICATION: Pain. Trauma. COMPARISON: None. TECHNIQUE: 4 views of the right knee. FINDINGS: There is a moderate joint effusion. No fracture or dislocation is demonstrated. There is moderately advanced tricompartmental degenerative change. Extensive marginal osteophyte formation is present. There are multiple joint loose bodies. No sclerotic or destructive lesion. There is advanced arterial calcification. IMPRESSION: Moderately severe tricompartmental degenerative change. Negative for fracture. Referred By: Interpreted By: Alvarez Good MD, 10/19/2023 9:08 PM XR ANKLE LT M3V Final Result by User, [id number] (10/19 2116) Left ankle 3 views INDICATION: Pain. Trauma. No prior studies. TECHNIQUE: 3 views of the left ankle. FINDINGS: No fracture or dislocation is demonstrated. There is mild degenerative change in the midfoot. No sclerotic or destructive lesion. Soft tissue swelling is seen laterally. Arterial calcification noted. IMPRESSION: Negative for fracture. Referred By: Interpreted By: Alvarez Good MD, 10/19/2023 9:[address] HEAD WO CON Final Result by User, [id number] (10/19 2107) EXAMINATION: CT of the head CLINICAL HISTORY: Pain, fall COMPARISON: 03/27/2020 TECHNIQUE: CT examination of the head without contrast was performed with axial images obtained. A radiation dose lowering technique was used for this procedure, which may include, but is not limited to, dose reduction technique, automated exposure control, the use of iterative reconstruction, ALARA (As Low As Reasonably Achievable) techniques, and Image Gently techniques. FINDINGS: There is no evidence of acute intracranial hemorrhage, abnormal extra-axial collections, intracranial mass effect, or midline shift. There is mild to moderate volume loss with enlargement of the ventricles and extra-axial/subarachnoid spaces. Small lacunar infarcts in the basal ganglia bilaterally, stable. There are multiple bilateral foci of periventricular and deep white matter hypoattenuation, probably related to chronic small vessel ischemic disease. Atherosclerotic calcifications of the intracranial arterial vasculature are evident. There is no definite CT evidence to suggest acute territorial infarction. The calvarium is unremarkable, without evidence of acute fracture. 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 The visualized mastoid air cells, paranasal sinuses, and orbits are grossly unremarkable. IMPRESSION: 1. No definite CT evidence for acute intracranial abnormality. 2. Other chronic or nonurgent findings as described above. Please note that CT has limited sensitivity for the detection of acute ischemia Referred By: Interpreted By: Denis Thompson MD, 10/19/2023 8:[address] CERV SPINE WO CON Final Result by User, [id number] (10/19 2115) Examination: CT CERV SPINE WO CON Clinical history: Pain after fall Comparison: 03/27/2020 DATE/TIME: 10/19/2023 7:26 PM Technique: Multiplanar CT images of the cervical spine were obtained without IV contrast. Oral contrast: None. A dose lowering technique was used for this procedure, which may include, but is not limited to, dose reduction technique, automated exposure control, the use of iterative reconstruction, and ALARA (As Low As Reasonably Achievable) / Image Gently techniques. Findings: Alignment is stable with mild anterolisthesis of C3 over C4. No prevertebral soft tissue swelling. There is a left sided thyroid nodule. Calcifications measuring 1.5 cm, indeterminate but stable 2019. Given size, could consider follow-up ultrasound. Multilevel degenerative change, slightly progressed since 2019, particularly at C3-4 where there may be high-grade spinal canal narrowing secondary to both disc disease and facet/ligamentum flavum hypertrophy. Could consider MRI for further evaluation. IMPRESSION: 1. No acute fracture identified. 2. Progressive degenerative disease, with possible high-grade spinal canal stenosis at C3-C4. 3. Other chronic or nonurgent findings as described above. Referred By: Interpreted By: Denis Thompson MD, 10/19/2023 9:[address] THOR SPINE WO CON Final Result by User, [id number] (10/19 2129) CLINICAL INDICATION: 78-year-old female trauma. Back trauma. Patient fell in the shower. Takes blood thinners. Has history of chronic neck and back pain. TECHNIQUE: CT of the thoracic spine was obtained in axial projection without intravenous contrast. Additional coronal and sagittal reconstructions were provided. Dose lowering technique was used for this study which may include, but is not limited to, dose reduction techniques, automated exposure control, use of iterative reconstruction and ALARA (As low As Reasonably Achievable)/Image Gently techniques. COMPARISON: No previous imaging of the thoracic spine. FINDINGS: There is no CT evidence of acute thoracic spine fracture. The thoracic vertebral bodies maintain normal alignment, body height and contour. Facet alignment is preserved bilaterally. The intervertebtal disc spaces are maintained. Prevertebral soft tissues unremarkable. No pneumothorax in the central lung zones. No proximal posterior rib fracture. There is a small left pleural effusion and small area of peribronchial vascular opacity in the right upper lobe. Consider follow-up with chest radiograph. IMPRESSION: 1. No evidence of acute thoracic spine fracture or traumatic malalignment. 2. Small left pleural effusion possible right upper lobe infiltrate with only the central lung zone seen. 3. Consider follow-up with chest radiograph. Referred By: Interpreted By: Marjan Mclaughlin DO, 10/19/2023 9:[address] LUMB SPINE WO CON Final Result by User, [email or web address] (10/19 2122) Examination: CT LUMB SPINE WO CON Clinical history: Pain after fall Comparison: None DATE/TIME: 10/19/2023 7:26 PM Technique: Multiplanar CT images of the lumbar spine were obtained without IV contrast. Oral contrast: None. A dose lowering technique was used for this procedure, which may include, but is not limited to, dose reduction technique, automated exposure control, the use of iterative reconstruction, and ALARA (As Low As Reasonably Achievable) / Image Gently techniques. Findings: Minimal anterolisthesis of L4 over L5 and retrolisthesis of L3 over 4 L2 over L3. Minimal dextroconvex lateral curvature with slight right lateral listhesis of L3 over L4. No acute fracture identified. There is significant degenerative disease at L3-L4, with vacuum disc phenomenon and posterior disc osteophyte complex as well as moderate bilateral facet arthritis. There is moderate or perhaps severe spinal canal stenosis at L3-4 and moderate to severe left neuroforaminal stenosis at this level. There is also moderate to severe bilateral neuroforaminal stenosis at L4-L5 and L5-S1. Mild to moderate spinal canal narrowing suspected at L2-L3 with grossly moderate spinal canal narrowing at L4-5. If further evaluation of degenerative disease is desired, MRI could be performed. Trace amount of free pelvic fluid is noted, uncertain etiology. IMPRESSION: 1. No acute fracture identified. 2. Degenerative disease, worse at L3-4 where there is advanced spinal canal stenosis. 3. Trace free pelvic fluid. Referred By: Interpreted By: Denis Thompson MD, 10/19/2023 9:10 PM ED Course / Medical Decision Making Medical Decision Making Imaging without acute fractures. Pt informed of results. Plan outpt management. Problems Addressed: Acute left ankle pain: acute illness or injury Acute pain of right knee: acute illness or injury Back pain, unspecified back location, unspecified back pain laterality, unspecified chronicity: chronic illness or injury with exacerbation, progression, or side effects of treatment Fall, initial encounter: acute illness or injury Amount and/or Complexity of Data Reviewed Radiology: ordered. Decision-making details documented in ED Course. Clinical Impression Fall, initial encounter (Primary) Back pain, unspecified back location, unspecified back pain laterality, unspecified chronicity Acute pain of right knee Acute left ankle pain Disposition: Discharge Demond Heck MD 10/20/23 0631 ERY TENDER ENGINEER * Jazzy Hurtado RN - 10/19/2023 6:51 PM CST Pt came in via EMS after having a fall--states she was in the shower when she suddenly fell. No LOC, +thinners--takes eliquis. Having c/o bilateral leg pain, mainly in the right knee, and neck/back pain. Pt has chronic neck and back pain that is now worse after the fall. Currently takes norco for pain management. ERY TENDER ENGINEER documented in this encounter Plan of Treatment Not on file documented as of this encounter Procedures Procedure Name Priority Date/Time Associated Diagnosis Comments XR KNEE RT MIN 4V STAT 10/19/2023 8:2 1 PM CANNERY TENDER ENGINEER XR ANKLE LT M3V STAT 10/19/2023 8:21 PM CANNERY TENDER ENGINEER CT THOR SPINE WO CON STAT 10/19/2023 8:21 PM CANNERY TENDER ENGINEER CT LUMB SPINE WO CON STAT 10/19/2023 8:21 PM CANNERY TENDER ENGINEER CT HEAD WO CON STAT 10/19/2023 8:21 PM CANNERY TENDER ENGINEER CT CERV SPINE WO CON STAT 10/19/2023 8:21 PM CANNERY TENDER ENGINEER documented in this encounter Results * XR ANKLE LT M3V (10/19/2023 8:21 PM CANNERY TENDER ENGINEER) Anatomical Region Laterality Modality Ankle Radiographic Mayi ging 10/19/2023 9:10 PM CANNERY TENDER ENGINEER Impressions 10/19/2023 9:11 PM CANNERY TENDER ENGINEER IMPRESSION: Negative for fracture. Referred By: ?? Interpreted By: Alvarez Good MD, 10/19/2023 9:10 PM Narrative 10/19/2023 9:11 PM CANNERY TENDER ENGINEER Left ankle 3 views INDICATION: Pain. ??Trauma. No prior studies. TECHNIQUE: 3 views of the left ankle. FINDINGS: No fracture or dislocation is demonstrated. ??There is mild degenerative change in the midfoot. ??No sclerotic or destructive lesion. ??Soft tissue swelling is seen laterally. ??Arterial calcification noted. Procedure Note Alvarez Good MD - 10/19/2023 Left ankle 3 views INDICATION: Pain. Trauma. No prior studies. TECHNIQUE: 3 views of the left ankle. FINDINGS: No fracture or dislocation is demonstrated. There is milddegenerative change in the midfoot. No sclerotic or destructive lesion.Soft tissue swelling is seen laterally. Arterial calcification noted. IMPRESSION: Negative for fracture. Referred By: Interpreted By: Alvarez Good MD, 10/19/2023 9:10 PM Demond Heck MD GENERAL IMAGING Final Resul t * XR KNEE RT MIN 4V (10/19/2023 8:21 PM CANNERY TENDER ENGINEER) Anatomical Region Laterality Modality Knee Radiographic Mayi ging 10/19/2023 9:08 PM CANNERY TENDER ENGINEER Impressions 10/19/2023 9:10 PM CANNERY TENDER ENGINEER IMPRESSION: Moderately severe tricompartmental degenerative change. ??Negative for fracture. Referred By: ?? Interpreted By: Alvarez Good MD, 10/19/2023 9:08 PM Narrative 10/19/2023 9:10 PM CANNERY TENDER ENGINEER Right knee 4 views INDICATION: Pain. ??Trauma. COMPARISON: None. TECHNIQUE: 4 views of the right knee. FINDINGS: There is a moderate joint effusion. ??No fracture or dislocation is demonstrated. ??There is moderately advanced tricompartmental degenerative change. ??Extensive marginal osteophyte formation is present. ??There are multiple joint loose bodies. ??No sclerotic or destructive lesion. ??There is advanced arterial calcification. Procedure Note Alvarez Good MD - 10/19/2023 Right knee 4 views INDICATION: Pain. Trauma. COMPARISON: None. TECHNIQUE: 4 views of the right knee. FINDINGS: There is a moderate joint effusion. No fracture or dislocationis demonstrated. There is moderately advanced tricompartmentaldegenerative change. Extensive marginal osteophyte formation is present.There are multiple joint loose bodies. No sclerotic or destructivelesion. There is advanced arterial calcification. IMPRESSION: Moderately severe tricompartmental degenerative change.Negative for fracture. Referred By: Interpreted By: Alvarez Godo MD, 10/19/2023 9:08 PM us Demond Heck MD GENERAL IMAGING Final Resul t * CT LUMB SPINE WO CON (10/19/2023 8:21 PM CANNERY TENDER ENGINEER) Anatomical Region Laterality Modality Spine Computed Tomogra phy 10/19/2023 9:10 PM CANNERY TENDER ENGINEER Impressions 10/19/2023 9:17 PM CANNERY TENDER ENGINEER IMPRESSION: 1. ??No acute fracture identified. 2. ??Degenerative disease, worse at L3-4 where there is advanced spinal canal stenosis. 3. ??Trace free pelvic fluid. Referred By: ?? Interpreted By: Denis Thompson MD, 10/19/2023 9:10 PM Narrative 10/19/2023 9:17 PM CANNERY TENDER ENGINEER Examination: CT LUMB SPINE WO CON Clinical history: Pain after fall Comparison: None DATE/TIME: 10/19/2023 7:26 PM Technique: Multiplanar CT images of the lumbar spine were obtained without IV contrast. Oral contrast: None. ??A dose lowering technique was used for this procedure, which may include, but is not limited to, dose reduction technique, automated exposure control, the use of iterative reconstruction, and ALARA (As Low As Reasonably Achievable) / Image Gently techniques. Findings: Minimal anterolisthesis of L4 over L5 and retrolisthesis of L3 over 4 L2 over L3. ??Minimal dextroconvex lateral curvature with slight right lateral listhesis of L3 over L4. ??No acute fracture identified. ??There is significant degenerative disease at L3-L4, with vacuum disc phenomenon and posterior disc osteophyte complex as well as moderate bilateral facet arthritis. ??There is moderate or perhaps severe spinal canal stenosis at L3-4 and moderate to severe left neuroforaminal stenosis at this level. ??There is also moderate to severe bilateral neuroforaminal stenosis at L4-L5 and L5-S1. ??Mild to moderate spinal canal narrowing suspected at L2-L3 with grossly moderate spinal canal narrowing at L4-5. ??If further evaluation of degenerative disease is desired, MRI could be performed. Trace amount of free pelvic fluid is noted, uncertain etiology. Procedure Note Denis Thompson MD - 10/19/2023 Examination: CT LUMB SPINE WO CON Clinical history: Pain after fall Comparison: None DATE/TIME: 10/19/2023 7:26 PM Technique: Multiplanar CT images of the lumbar spine were obtained withoutIV contrast. Oral contrast: None. A dose lowering technique was used forthis procedure, which may include, but is not limited to, dose reductiontechnique, automated exposure control, the use of iterativereconstruction, and ALARA (As Low As Reasonably Achievable) / Image Gentlytechniques. Findings: Minimal anterolisthesis of L4 over L5 and retrolisthesis of L3over 4 L2 over L3. Minimal dextroconvex lateral curvature with slightright lateral listhesis of L3 over L4. No acute fracture identified.There is significant degenerative disease at L3-L4, with vacuum discphenomenon and posterior disc osteophyte complex as well as moderatebilateral facet arthritis. There is moderate or perhaps severe spinalcanal stenosis at L3-4 and moderate to severe left neuroforaminal stenosisat this level. There is also moderate to severe bilateral neuroforaminalstenosis at L4-L5 and L5-S1. Mild to moderate spinal canal narrowingsuspected at L2-L3 with grossly moderate spinal canal narrowing at L4-5.If further evaluation of degenerative disease is desired, MRI could beperformed. Trace amount of free pelvic fluid is noted, uncertain etiology. IMPRESSION: 1. No acute fracture identified. 2. Degenerative disease, worse at L3-4 where there is advanced spinalcanal stenosis. 3. Trace free pelvic fluid. Referred By: Interpreted By: Denis Thompson MD, 10/19/2023 9:10 PM us Demond Heck MD CT Final Resul t * CT THOR SPINE WO CON (10/19/2023 8:21 PM CANNERY TENDER ENGINEER) Anatomical Region Laterality Modality Spine Computed Tomogra phy 10/19/2023 9:16 PM CANNERY TENDER ENGINEER Impressions 10/19/2023 9:24 PM CANNERY TENDER ENGINEER IMPRESSION: 1. No evidence of acute thoracic spine fracture or traumatic malalignment. 2. ??Small left pleural effusion possible right upper lobe infiltrate with only the central lung zone seen. 3. ??Consider follow-up with chest radiograph. Referred By: ?? Interpreted By: Marjan Mclaughlin DO, 10/19/2023 9:16 PM Narrative 10/19/2023 9:24 PM CANNERY TENDER ENGINEER CLINICAL INDICATION: 78-year-old female trauma. ??Back trauma. ??Patient fell in the shower. ??Takes blood thinners. ??Has history of chronic neck and back pain. TECHNIQUE: CT of the thoracic spine was obtained in axial ??projection without intravenous contrast. Additional coronal and sagittal reconstructions were provided. Dose lowering technique was used for this study which may include, but is not limited to, dose reduction techniques, automated exposure control, use of iterative ??reconstruction and ALARA (As low As Reasonably Achievable)/Image Gently techniques. COMPARISON: No previous imaging of the thoracic spine. FINDINGS: There is no CT evidence of acute thoracic spine fracture. ??The thoracic vertebral bodies maintain normal alignment, body height and contour. Facet alignment is preserved bilaterally. ??The intervertebtal disc spaces are maintained. Prevertebral soft tissues unremarkable. ??No pneumothorax in the central lung zones. ??No proximal posterior rib fracture. ??There is a small left pleural effusion and small area of peribronchial vascular opacity in the right upper lobe. ??Consider follow-up with chest radiograph. Procedure Note Marjan Mclaughlin MD - 10/19/2023 CLINICAL INDICATION: 78-year-old female trauma. Back trauma. Patient fell in the shower.Takes blood thinners. Has history of chronic neck and back pain. TECHNIQUE: CT of the thoracic spine was obtained in axial projection withoutintravenous contrast. Additional coronal and sagittal reconstructions wereprovided. Dose lowering technique was used for this study which may include, but isnot limited to, dose reduction techniques, automated exposure control, useof iterative reconstruction and ALARA (As low As ReasonablyAchievable)/Image Gently techniques. COMPARISON: No previous imaging of the thoracic spine. FINDINGS: There is no CT evidence of acute thoracic spine fracture. The thoracicvertebral bodies maintain normal alignment, body height and contour. Facetalignment is preserved bilaterally. The intervertebtal disc spaces aremaintained. Prevertebral soft tissues unremarkable. No pneumothorax in the centrallung zones. No proximal posterior rib fracture. There is a small leftpleural effusion and small area of peribronchial vascular opacity in theright upper lobe. Consider follow-up with chest radiograph. IMPRESSION: 1. No evidence of acute thoracic spine fracture or traumaticmalalignment. 2. Small left pleural effusion possible right upper lobe infiltrate withonly the central lung zone seen. 3. Consider follow-up with chest radiograph. Referred By: Interpreted By: Marjan Mclaughlin DO, 10/19/2023 9:16 PM us Demond Heck MD CT Final Resul t * CT CERV SPINE WO CON (10/19/2023 8:21 PM CANNERY TENDER ENGINEER) Anatomical Region Laterality Modality Spine Computed Tomogra phy 10/19/2023 9:02 PM CANNERY TENDER ENGINEER Impressions 10/19/2023 9:09 PM CANNERY TENDER ENGINEER IMPRESSION: 1. ??No acute fracture identified. 2. ??Progressive degenerative disease, with possible high-grade spinal canal stenosis at C3-C4. 3. ??Other chronic or nonurgent findings as described above. Referred By: ?? Interpreted By: Denis Thompson MD, 10/19/2023 9:02 PM Narrative 10/19/2023 9:09 PM CANNERY TENDER ENGINEER Examination: CT CERV SPINE WO CON Clinical history: Pain after fall Comparison: 03/27/2020 DATE/TIME: 10/19/2023 7:26 PM Technique: Multiplanar CT images of the cervical spine were obtained without IV contrast. Oral contrast: None. ??A dose lowering technique was used for this procedure, which may include, but is not limited to, dose reduction technique, automated exposure control, the use of iterative reconstruction, and ALARA (As Low As Reasonably Achievable) / Image Gently techniques. Findings: Alignment is stable with mild anterolisthesis of C3 over C4. ??No prevertebral soft tissue swelling. ??There is a left sided thyroid nodule. ??Calcifications measuring 1.5 cm, indeterminate but stable 2019. ??Given size, could consider follow-up ultrasound. ??Multilevel degenerative change, slightly progressed since 2019, particularly at C3-4 where there may be high-grade spinal canal narrowing secondary to both disc disease and facet/ligamentum flavum hypertrophy. ??Could consider MRI for further evaluation. Procedure Note Denis Thompson MD - 10/19/2023 Examination: CT CERV SPINE WO CON Clinical history: Pain after fall Comparison: 03/27/2020 DATE/TIME: 10/19/2023 7:26 PM Technique: Multiplanar CT images of the cervical spine were obtainedwithout IV contrast. Oral contrast: None. A dose lowering technique wasused for this procedure, which may include, but is not limited to, dosereduction technique, automated exposure control, the use of iterativereconstruction, and ALARA (As Low As Reasonably Achievable) / Image Gentlytechniques. Findings: Alignment is stable with mild anterolisthesis of C3 over C4. Noprevertebral soft tissue swelling. There is a left sided thyroid nodule.Calcifications measuring 1.5 cm, indeterminate but stable 2019. Givensize, could consider follow-up ultrasound. Multilevel degenerativechange, slightly progressed since 2019, particularly at C3-4 where theremay be high-grade spinal canal narrowing secondary to both disc diseaseand facet/ligamentum flavum hypertrophy. Could consider MRI for furtherevaluation. IMPRESSION: 1. No acute fracture identified. 2. Progressive degenerative disease, with possible high-grade spinalcanal stenosis at C3-C4. 3. Other chronic or nonurgent findings as described above. Referred By: Interpreted By: Denis Thompson MD, 10/19/2023 9:02 PM Demond Heck MD CT Final Resul t * CT HEAD WO CON (10/19/2023 8:21 PM CANNERY TENDER ENGINEER) Anatomical Region Laterality Modality Head Computed Tomogra phy 10/19/2023 8:55 PM CANNERY TENDER ENGINEER Impressions 10/19/2023 9:02 PM CANNERY TENDER ENGINEER IMPRESSION: 1. ??No definite CT evidence for acute intracranial abnormality. 2. ??Other chronic or nonurgent findings as described above. Please note that CT has limited sensitivity for the detection of acute ischemia Referred By: ?? Interpreted By: Denis Thompson MD, 10/19/2023 8:55 PM Narrative 10/19/2023 9:02 PM CANNERY TENDER ENGINEER EXAMINATION: CT of the head CLINICAL HISTORY: Pain, fall COMPARISON: 03/27/2020 TECHNIQUE: CT examination of the head without contrast ??was performed with axial images obtained. ??A radiation dose lowering technique was used for this procedure, which may include, but is not limited to, dose reduction technique, automated exposure control, the use of iterative reconstruction, ALARA (As Low As Reasonably Achievable) techniques, and Image Gently techniques. FINDINGS: There is no evidence of acute intracranial hemorrhage, abnormal extra-axial collections, intracranial mass effect, or midline shift. There is mild to moderate volume loss with enlargement of the ventricles and extra-axial/subarachnoid spaces. ??Small lacunar infarcts in the basal ganglia bilaterally, stable. ??There are multiple bilateral foci of periventricular and deep white matter hypoattenuation, probably related to chronic small vessel ischemic disease. Atherosclerotic calcifications of the intracranial arterial vasculature are evident. There is no definite CT evidence to suggest acute territorial infarction. The calvarium is unremarkable, without evidence of acute fracture. 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 The visualized mastoid air cells, paranasal sinuses, and orbits are grossly unremarkable. Procedure Note Denis Thompson MD - 10/19/2023 EXAMINATION: CT of the head CLINICAL HISTORY: Pain, fall COMPARISON: 03/27/2020 TECHNIQUE: CT examination of the head without contrast was performed withaxial images obtained. A radiation dose lowering technique was used forthis procedure, which may include, but is not limited to, dose reductiontechnique, automated exposure control, the use of iterativereconstruction, ALARA (As Low As Reasonably Achievable) techniques, andImage Gently techniques. FINDINGS: There is no evidence of acute intracranial hemorrhage, abnormalextra-axial collections, intracranial mass effect, or midline shift. Thereis mild to moderate volume loss with enlargement of the ventricles andextra-axial/subarachnoid spaces. Small lacunar infarcts in the basalganglia bilaterally, stable. There are multiple bilateral foci ofperiventricular and deep white matter hypoattenuation, probably related tochronic small vessel ischemic disease. Atherosclerotic calcifications ofthe intracranial arterial vasculature are evident. There is no definite CTevidence to suggest acute territorial infarction. The calvarium isunremarkable, without evidence of acute fracture. 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 Thevisualized mastoid air cells, paranasal sinuses, and orbits are grosslyunremarkable. IMPRESSION: 1. No definite CT evidence for acute intracranial abnormality. 2. Other chronic or nonurgent findings as described above. Please note that CT has limited sensitivity for the detection of acuteischemia Referred By: Interpreted By: Denis Thompson MD, 10/19/2023 8:55 PM Demond Heck MD CT Final Resul t documented in this encounter Visit Diagnoses Diagnosis Fall, initial encounter- Primary Back pain, unspecified back location, unspecified back pain laterality, unspecified chronicity Acute pain of right knee Acute left ankle pain documented in this encounter Administered Medications Inactive Administered Medications - up to 3 most recent administrations Medication Order MAR Action Action Date Dose Rate Site HYDROcodone-acetaminophen (NORCO) 10-325 MG tablet 1 tablet 1 tablet, Oral, Once, 1 dose, On Tue10/19/23 at 191, Maximum dose of acetaminophen is 4000 mg from all sources in 24 hours. Given 10/19/2023 8:22 PM CANNERY TENDER ENGINEER 1 tablet documented in this encounter Active and Recently Administered Medications Times are shown in CANNERY TENDER ENGINEER. Scheduled Medication Order 10/17/2023 10/18/2023 10/19/2023 HYDROcodone-acetaminophen (NORCO) 10-325 MG tablet 1 tablet (COMPLETED) 1 tablet, Oral, Once, 1 dose, On Tue10/19/23 at 191, Maximum dose of acetaminophen is 4000 mg from all sources in 24 hours. 2021 (Given - Provid er: Jazzy Hurtado RN) documented in this encounter Care Teams Source Inspector Relationship Specialty Start Date End Date Oh Goode MD [address] [place] [address] PCP - General FAMILY PRACTICE 01/26/20 documented as of this encounter
--- OUTSIDE RECORDS SUMMARY | 2024-11-18 08:47 | XMS_ITS | Encounter Summary ---
Author Organization [facility] Address [address] [place] [address]. [place], [place] [id number] [place] [address] Care Team Providers Care Brick Pointer Name Role Phone Oh Goode MD Primary Care Provider Encounter Details Date Type Department Care Team (Latest Contact Info) Description 01/26/2020 Travel Social History Tobacco Use Types Packs/Day Years Used Date Smoking Tobacco: Never Smokeless Tobacco: Never Comments No Sex and Gender Information Value Date Recorded Sex Assigned at Not on file Legal Sex Female 4:30 PM CDT Gender Identity Not on file Sexual Orientation Not on file documented as of this encounter Plan of Treatment Not on file documented as of this encounter Visit Diagnoses Not on filedocumented in this encounter Care Teams Brick Pointer Relationship Specialty Start Date End Date Oh Goode MD [address] [place] [address] PCP - General FAMILY PRACTICE 01/26/20 documented as of this encounter
--- OUTSIDE RECORDS SUMMARY | 2024-11-18 08:47 | XMS_ITS | Clinical Summary ---
Author Organization [facility] Address [address] [place] [address]. [place] [address] [place] [address] Care Team Providers Care Bee Rancher Name Role Phone Oh Goode MD Primary Care Provider [phone] Allergies Active Allergy Reactions Criticality Noted Date Comments Clindamycin GI Upset 01/26/2020 Morphine Vomiting 03/27/2020 Nitroglycerin Headache 10/12/2024 Nsaids Unknown 01/26/2020 Penicillins Rash Low 01/26/2020 Medications melatonin 5 MG tablet Take 3 mg by mouth daily. Active fenofibrate 160 MG tablet Take 1 tablet (160 mg total) by mouth daily. Active SITagliptin 100 MG tablet Take 1 tablet (100 mg total) by mouth daily. Active lisinopril 2.5 MG tablet Take 1 tablet (2.5 mg total) by mouth daily. Active glipiZIDE XL 10 MG 24 hr tablet Take 1 tablet (10 mg total) by mouth daily with breakfast. Do not break or crush tablet Active sertraline 50 MG tablet Take 1 tablet (50 mg total) by mouth daily. Active carvedilol 12.5 MG tablet Take 1 tablet (12.5 mg total) by mouth 2 (two) times daily. Active vitamin D2, ergocalciferol, (VITAMIN D, ERGOCALCIFEROL,) 07022 UNITS capsule Take 1 capsule (50,000 Units total) by mouth. Active pantoprazole EC 40 MG tablet Take 1 tablet (40 mg total) by mouth daily. Active furosemide 20 MG tablet Take 1 tablet (20 mg total) by mouth daily. Active benzocaine-menth ol 15-[address] 1 lozenge inside cheek every 2 (two) hours as needed for Sore throat. Active ezetimibe 10 MG tablet Take 1 tablet (10 mg total) by mouth daily. Active budesonide-formo terol 160-4.5 MCG/ACT inhaler Inhale 2 puffs into the lungs 2 (two) times daily. Active atorvastatin 80 MG tablet Take 1 tablet (80 mg total) by mouth nightly at bedtime. Active INSULIN ASPART 100 UNIT/ML injection (VIAL)Indication s:,70 glucose follow hypoglycemic protocol,70-150 0 inits insulin, 151-200 3 units, 201-250 5 units, 251-300 7 units, 301-350 9 units, 351-400 11 units, >400 call MD Inject into the skin 3 (three) times daily before meals. Indications: ,70 glucose follow hypoglycemic protocol,70-150 0 inits insulin, 151-200 3 units, 201-250 5 units, 251-300 7 units, 301-350 9 units, 351-400 11 units, >400 call MD Active gabapentin 300 MG capsule Take 1 capsule (300 mg total) by mouth 3 (three) times daily. Active diclofenac sodium 1 % gel Apply 2 g topically 4 (four) times daily. Apply to bilateral knees 100 g 0 Active HYDROcodone-acet aminophen (NORCO) 10-325 MG tablet Take 1 tablet by mouth 3 (three) times daily. 4 Active tamsulosin (FLOMAX) 0.4 MG Cap Take 1 capsule (0.4 mg total) by mouth every morning. 4 Active promethazine (PHENERGAN) 12.5 MG tablet TAKE ONE TABLET THREE TIMES A DAY NEEDED FOR NAUSEA AND VOMITING 4 Active fluticasone propionate (FLONASE) 50 MCG/ACT nasal spray 1 spray by Nasal route daily. 4 Active famotidine (PEPCID) 20 MG tablet Take 1 tablet (20 mg total) by mouth every 12 (twelve) hours. 4 Active docusate sodium (COLACE) 100 MG capsule Take 1 capsule (100 mg total) by mouth daily. 4 Active [facility] ASPIRIN LOW DOSE 81 MG tablet Take 1 tablet (81 mg total) by mouth every morning. 4 Active ELIQUIS 5 MG tablet Take 1 tablet (5 mg total) by mouth 2 (two) times daily. 4 Active amLODIPine (NORVASC) 5 MG tablet Take 1 tablet (5 mg total) by mouth every morning. 4 Active amiodarone (PACERONE) 200 MG tablet Take 1 tablet (200 mg total) by mouth daily. 4 Active allopurinol (ZYLOPRIM) 100 MG tablet Take 1 tablet (100 mg total) by mouth daily. 4 Active albuterol sulfate HFA 108 (90 Base) MCG/ACT inhaler Inhale 2 puffs into the lungs 4 (four) times daily. 3 Active JANUVIA 25 MG Tab Take 1 tablet (25 mg total) by mouth daily. 4 Active Encounters Date Type Department Care Team Description 10/12/2024 9:40 AM WASTE SALVAGER Office Visit [facility] Family & Internal Medicine [address] [id number] Evin Frank PA Mouth/Lip Problem (Pt states she fell a week ago and bit her tongue, pt also has hematoma on right leg and right hip area. Pt concerned) 10/12/2024 Travel from Last 3 Months Immunizations Name Administration Dates Next Due Fluzone High Dose - >Age 65 (Prefilled Syringe) 08/11/2022,08/25/2021,10/02/2019 Influenza (Generic) 08/23/2014,09/01/2012 Influenza Adult (Generic) 09/21/2023,05/2020,10/02/2019,2017,08/30/2017,10/05/2016,09/08/2015 Pneumococcal (Prevnar 13) 10/02/2019 Tdap (Generic) 10/05/2016 Social History Tobacco Use Types Packs/Day Years Used Date Smoking Tobacco: Never Smokeless Tobacco: Never Tobacco Cessation:Counseling Given: No Alcohol Use Standard Drinks/Week Comments Never 0 (1 standard drink = 0.6 oz pur e alcohol) AUDIT-C Answer Date Recorded Frequency of Alcohol Consumption Never 03/27/2020 Average Number of Drinks Not on file 020 Frequency of Binge Drinking Not on file 03/08 PHQ-2 Answer Date Recorded Patient Health Questionnaire-2 Score 0 10/12/2024 Comments No Sex and Gender Information Value Date Recorded Sex Assigned at Not on file Legal Sex Female 4:30 PM CDT Gender Identity Not on file Sexual Orientation Not on file Last Filed Vital Signs Vital Sign Reading Time Taken Comments Blood Pressure 171/86 10/12/2024 9:00 AM WASTE SALVAGER Pulse 68 10/12/2024 9:00 AM WASTE SALVAGER Temperature 36.3 ??C (97.3 ??F) 10/12/2024 9:00 AM CS T Respiratory Rate 18 10/12/2024 9:00 AM WASTE SALVAGER Oxygen Saturation 95% 10/12/2024 9:00 AM WASTE SALVAGER Inhaled Oxygen Concentration - - Weight 91.6 kg (202 lb) 10/12/2024 9:00 AM WASTE SALVAGER Height 167.6 cm (5' 6 ) 10/12/2024 9:00 AM WASTE SALVAGER Body Mass Index 32.6 10/12/2024 9:00 AM WASTE SALVAGER Plan of Treatment Health Maintenance Due Date Last Done Comments Hepatitis C 1964 Zoster Vaccines (1 of 2) 1996 Annual Medicare Wellness Visit 2011 Dexa Scan (General) 2011 Pneumococcal Vaccine: 65+ Years (2 of 2 - PPSV23 or PCV20) 10/02/2020 10/02/2019 RSV Immunization or 60+ Years (1 - 1-dose 75+ series) 2021 COVID-19 Vaccine ( - season) 2024 04/23/2022, 08/25/2021, 02/01/2021, Additional history exists Influenza Adult (#1) 2024 09/21/2023, 08/11/2022, 08/25/2021, Additional history exists DTaP, Tdap and Td Vaccines (2 - Td or Tdap) 10/05/2026 10/05/2016 Meningococcal Vaccine Aged Out No nikita bailey eligible based on patient's age to complete this topic RSV Immunizations Under 20 Months Aged Out No longer eligible based on patient's age to complete this topic Insurance [facility] Care Teams Bee Rancher Relationship Specialty Start Date End Date Oh Goode MD [address] [place] [address] PCP - General FAMILY PRACTICE 01/26/20
--- OUTSIDE RECORDS SUMMARY | 2024-11-18 08:47 | XMS_ITS | Encounter Summary ---
Author Organization [facility] Address [address] [place] [address]. [place] [address] [place] [address] Care Team Providers Care Toll Test Desk Worker Name Role Phone Oh Goode MD Primary Care Provider [phone] Encounter Details Date Type Department Care Team (Latest Contact Info) Description 10/19/2023 Travel Social History Tobacco Use Types Packs/Day [...] on filedocumented in this encounter Care Teams Toll Test Desk Worker Relationship Specialty Start Date End Date Oh Goode MD [address] [place] [address] PCP - General FAMILY PRACTICE 01/26/20 documented as of this encounter
--- OUTSIDE RECORDS SUMMARY | 2024-11-18 08:47 | XMS_ITS | Encounter Summary ---
Author Organization [facility] Address [address] [place] [address]. [place] [address] [place] [address] Care Team Providers Care Medical Record Retrieval Specialist Name Role Phone Oh Goode MD Primary Care Provider [phone] Reason for Visit * Reason Comments Knee Pain Encounter Details Date Type Department Care Team (Late st Contact Info) Description 01/26/2020 4:34 PM CDT - 01/26/2020 5:23 PM CDT Emergency [facility] Emergency Room [id number] [place] [address] Swapnil Sheehan PA [address] [place], [place] [id number] Knee Pain Discharge Disposition: Home or Self Care (Routine [...] Sign Reading Time Taken Comments Blood Pressure 174/79 01/26/2020 4:42 PM CDT Pulse 73 01/26/2020 4:42 PM CDT Temperature 36.2 ??C (97.1 ??F) 01/26/2020 4:42 PM CD T Respiratory Rate 20 01/26/2020 4:42 PM CDT Oxygen Saturation 95% 01/26/2020 4:42 PM CDT Inhaled Oxygen Concentration - - Weight 99.8 kg (220 lb) 01/26/2020 4:42 PM CDT Height 167.6 cm (5' 6 ) 01/26/2020 4:42 PM CDT Body Mass Index 35.51 01/26/2020 4:42 PM CDT documented in this encounter Discharge Instructions * Discharge Instructions* ELLEN Melo - 01/26/2020 5:04 PM CDT Take medication as prescribed. Recommend wearing Jarret wrap as instructed and using wheelchair as needed for weightbearing activities. Follow-up with your primary care provider in 5 to 7 days. Return emergency department symptoms worsen or new concerns. * Attachments The following attachments cannot be sent through Care Everywhere. * Chronic Knee Pain Discharge Instructions ([place]jiboutian) documented in this encounter Medications at Time [...] daily. vitamin D2, ergocalciferol, (VITAMIN D, ERGOCALCIFEROL,) 28608 UNITS capsule Take 1 capsule (50,000 Units total) by mouth. hydrocodone-aceta minophen 7.5-325 MG tabletIndications :1-2 tabs 1 tablet every 6 (six) hours as needed. Indications: 1-2 tabs 08/28/2019 4 documented as of this encounter ED Notes * ELLEN Melo - 01/26/2020 4:58 PM CDT ED NOTE Chief Complaint Chief Complaint Patient presents with ??? Knee Pain History of Present Illness 74-year-old female with past history of osteoarthritis of bilateral knees presenting to emergency department with complaint of bilateral knee pain that is increased over the several days. Denies any new injury or trauma. Left knee worse than right knee. Patient states she does use walker and wheelchair for ambulation. Chronic pain to this knee. Does take hydrocodone on a regular basis and has hadminimal relief. Associated with mild swelling. Denies prior surgeries, traumas. Denies erythema, warmth or fevers. No other complaints at this time. Medical History ALLERGIES: Allergies Allergen Reactions ??? Clindamycin GI Upset ??? Nsaids Unknown ??? Penicillins Rash MEDICATIONS: Prior to Admission medications Medication Sig Start Date End Date Taking? Authorizing Provider atorvastatin 80 MG tablet Take 80 mg by mouth nightly at bedtime. Yes Doc Abstract benzocaine-menthol 15-[address] 1 lozenge inside cheek every 2 (two) hours as needed for Sore throat. Yes Doc Abstract budesonide-formoterol 160-4.5 MCG/ACT inhaler Inhale 2 puffs into the lungs 2 (two) times daily. Yes Doc Abstract carvedilol 12.5 MG tablet Take 12.5 mg by mouth 2 (two) times daily. Yes Doc Abstract diclofenac sodium 1 % gel Apply 2 g topically 4 (four) times daily. Apply to bilateral knees 01/26/20 Yes ELLEN Melo ezetimibe 10 MG tablet Take 10 mg by mouth daily. Yes Doc Abstract fenofibrate 160 MG tablet Take 160 mg by mouth daily. Yes Doc Abstract furosemide 20 MG tablet Take 20 mg by mouth daily. Yes Doc Abstract gabapentin 300 MG capsule Take 300 mg by mouth 3 (three) times daily. Yes Doc Abstract glipiZIDE XL 10 MG 24 hr tablet Take 10 mg by mouth daily with breakfast. Do not break or crush tablet Yes Doc Abstract INSULIN ASPART 100 UNIT/ML injection (VIAL) Inject into the skin 3 (three) times daily before meals. Indications: ,70 glucose follow hypoglycemic protocol,70-150 0 inits insulin, 151-200 3 units, 201-250 5 units, 251-300 7 units, 301-350 9 units, 351-400 11 units, >400 call MD Yes Doc Abstract lisinopril 2.5 MG tablet Take 2.5 mg by mouth daily. Yes Doc Abstract melatonin 5 MG tablet Take 3 mg by mouth daily. Yes Doc Abstract pantoprazole EC 40 MG tablet Take 40 mg by mouth daily. Yes Doc Abstract sertraline 50 MG tablet Take 50 mg by mouth daily. Yes Doc Abstract SITagliptin 100 MG tablet Take 100 mg by mouth daily. Yes Doc Abstract vitamin D2, ergocalciferol, (VITAMIN D, ERGOCALCIFEROL,) 75723 UNITS capsule Take 50,000 Units by mouth. Yes Doc Abstract hydrocodone-acetaminophen 7.5-325 MG tablet 1 tablet every 6 (six) hours as needed. Indications: 1-2 tabs 08/28/19 Doc Abstract PAST MEDICAL HISTORY: Past Medical History: Diagnosis Date ??? Arthritis ??? CHF (congestive heart failure) (CMS/HCC) ??? COPD (chronic obstructive pulmonary disease) (CMS/HCC) ??? Hypertension ??? Renal disorder ??? Stroke (CMS/HCC) PAST SURGICAL HISTORY: Past Surgical History: Procedure Laterality Date ??? HYSTERECTOMY FAMILY HISTORY: Family history negative for heart disease, cancer, and diabetes. No family history on file. SOCIAL HISTORY: Social History Tobacco Use ??? Smoking status: Never Smoker ??? Smokeless tobacco: Never Used Substance Use Topics ??? Alcohol use: Not on file ??? Drug use: Not on file Review of Systems Review of Systems Constitutional: Negative for activity change and appetite change. HENT: Negative for congestion, ear discharge, ear pain and sore throat. Respiratory: Negative for cough and shortness of breath. Cardiovascular: Negative for chest pain. Gastrointestinal: Negative for abdominal pain, nausea and vomiting. Genitourinary: Negative for decreased urine volume and difficulty urinating. Musculoskeletal: Negative for back pain and neck pain. Skin: Negative for rash and wound. Allergic/Immunologic: Negative for immunocompromised state. Neurological: Negative for dizziness, syncope and light-headedness. Hematological: Negative for adenopathy. Does not bruise/bleed easily. All other systems reviewed and are negative. Physical Exam Filed Vitals: 01/26/20 1642 BP: (!) 174/79 Pulse: 73 Resp: 20 Temp: 97.1 ??F (36.2 ??C) TempSrc: Tympanic SpO2: 95% Weight: 99.8 kg (220 lb) Height: 5' 6 (1.676 m) Physical Exam Constitutional: She is oriented to person, place, and time. She appears well- developed and well-nourished. No distress. HENT: Head: Normocephalic. Nose: Nose normal. Mouth/Throat: Oropharynx is clear and moist. Neck: Normal range of motion. Neck supple. Cardiovascular: Normal rate, regular rhythm and normal heart sounds. Pulses: Dorsalis pedis pulses are 2+ on the right side, and 2+ on the left side. Pulmonary/Chest: Effort normal and breath sounds normal. Musculoskeletal: Right knee: She exhibits normal range of motion, no swelling and no effusion. No tenderness found. Left knee: She exhibits effusion (Mild effusion with no erythema or warmth). She exhibits normal range of motion, no deformity and no erythema. No tenderness found. Neurological: She is alert and oriented to person, place, and time. She has normal strength. No sensory deficit. GCS eye subscore is 4. GCS verbal subscore is 5. GCS motor subscore is 6. Skin: Skin is warm and dry. Psychiatric: She has a normal mood and affect. Her behavior is normal. Judgment and thought contentnormal. Nursing note and vitals reviewed. Diagnostic Studies / Procedures ELECTROCARDIOGRAMS: No results found for this visit on 01/26/20. LABORATORY STUDIES: No results found for this visit on 01/26/20. IMAGING STUDIES No orders to display ED Course / Medical Decision Making Bilateral knees with no signs of septic arthritis, patient is neurovascular intact. Most likely inflammation from underlying osteoarthritis. No indications for lab testing or imaging at this time. Patient will follow-up with her primary care provider. Medications oxyCODONE-acetaminophen (PERCOCET) 5-325 MG tablet 1 tablet (has no administration in time range) Clinical Impression Inflammation of joint of knee (Primary) Current Discharge Medication List START taking these medications Details diclofenac sodium 1 % gel Apply 2 g topically 4 (four) times daily. Apply to bilateral knees Qty: 100 g, Refills: 0 Class: Eprescribe Pharmacy: [id number] [place] [address] (Ph #: [phone]) Disposition: Discharge Follow-Up: Oh Goode MD [address] [place] [address] [facility] [address] Schedule an appointment as soon as possible for a visit in 1 week As needed ELLEN Melo 01/26/2020 ELLEN Melo 01/26/20 1705 Cosigned by Demond Heck MD at 01/29/2020 1:46 AM CDT * Tiffany Padgett RN - 01/26/2020 4:44 PM CDT C/O shiv knee pain. Left worse than right. No injury. documented in this encounter Plan of Treatment Not on file documented as of this encounter Visit Diagnoses Diagnosis Inflammation of joint of knee- Primary Unspecified arthropathy, lower leg documented in this encounter Administered Medications Inactive Administered Medications - up to 3 most recent administrations Medication Order MAR Action Action Date Dose Rate Site oxyCODONE-acetaminophen (PERCOCET) 5-325 MG tablet 1 tablet 1 tablet, Oral, Once, 1 dose, On 01/26/20 at 1700, Maximum dose of acetaminophen is 4000 mg from all sources in 24 hours. Given 01/26/2020 5:09 PM CDT 1 tablet documented in this encounter Active and Recently Administered Medications Times are shown in CDT. Scheduled Medication Order 01/24/2020 01/25/2020 01/26/2020 oxyCODONE-acetaminophen (PERCOCET) 5-325 MG tablet 1 tablet (COMPLETED) 1 tablet, Oral, Once, 1 dose, On 01/26/20 at 1700, Maximum dose of acetaminophen is 4000 mg from all sources in 24 hours. 1709 (Given - Provid er: Tiffany Padgett RN) documented in this encounter Care Teams Medical Record Retrieval Specialist Relationship Specialty Start Date End Date Oh Goode MD [address] [place], [place] [id number] PCP - General FAMILY PRACTICE 01/26/20 documented as of this encounter
--- OUTSIDE RECORDS SUMMARY | 2024-11-18 08:47 | XMS_ITS | Encounter Summary ---
Author Organization [facility] Address [address] [place] [address]. [place] [address] [place] [address] Care Team Providers Care Ore Charger Name Role Phone Oh Goode MD Primary Care Provider [phone] Encounter Details Date Type Department Care Team (Latest Contact Info) Description 10/12/2024 Travel Social History Tobacco Use Types Packs/Day [...] on filedocumented in this encounter Care Teams Ore Charger Relationship Specialty Start Date End Date Oh Goode MD [address] [place] [address] PCP - General FAMILY PRACTICE 01/26/20 documented as of this encounter
--- OUTSIDE RECORDS SUMMARY | 2024-11-18 08:47 | XMS_ITS | Encounter Summary ---
Author Organization [facility] Address [address] [place] [address]. [place] [address] [place] [address] Care Team Providers Care Carriage Setter Name Role Phone Oh Goode MD Primary Care Provider [phone] Reason for Visit * Reason Comments Mouth/Lip Problem Pt states she fell a week ago and bit her tongue, pt also has hematoma on right leg and right hip area. Pt concerned Encounter Details Date Type Department Care Team (Late st Contact Info) Description 10/12/2024 9:40 AM SOCK AND [employer] Office Visit [facility] [place] [id number] [place] [id number] [place] [id number] [place] [id number] Mouth/Lip Problem (Pt states she fell a week ago and bit her tongue, pt also has hematoma on right leg and right hip area. Pt concerned) Social History Tobacco Use Types Packs/Day Years [...] Comments Blood Pressure 171/86 10/12/2024 9:00 AM S[employer] AND [employer]ER Pulse 68 10/12/2024 9:00 AM [employer] Temperature 36.3 ??C (97.3 ??F) 10/12/2024 9:00 AM CS T Respiratory Rate 18 10/12/2024 9:00 AM [employer] Oxygen Saturation 95% 10/12/2024 9:00 AM S[employer] AND [employer] Inhaled Oxygen Concentration - - Weight 91.6 kg (202 lb) 10/12/2024 9:00 AM [employer] Height 167.6 cm (5' 6 ) 10/12/2024 9:00 AM [employer] Body Mass Index 32.6 10/12/2024 9:00 AM S[employer] documented in this encounter Progress Notes * ELLEN Gaspar - 10/12/2024 9:40 AM CST Reason for Visit: Mouth/Lip Problem (Pt states she fell a week ago and bit her tongue, pt also has hematoma on right leg and right hip area. Pt concerned) History of Present Illness: 79-year-old female complains of a fall 1 week ago onto her right knee right hip and bit the left side of her tongue. She is concerned that the tongue wound is not healing up a spasticity like it to. She does have some pain occasionally go down the left side of her neck. Patient has history of past strokes. Does not complain of any pain in the right knee or hip. Mouth/Lip Problem ROS: Review of Systems All other systems reviewed and are negative. Medications: Current Outpatient Medications: albuterol sulfate HFA 108 (90 Base) MCG/ACT inhaler, Inhale 2 puffs into the lungs 4 (four) times daily., Disp: , Rfl: allopurinol (ZYLOPRIM) 100 MG tablet, Take 1 tablet (100 mg total) by mouth daily., Disp: , Rfl: amiodarone (PACERONE) 200 MG tablet, Take 1 tablet (200 mg total) by mouth daily., Disp: , Rfl: amLODIPine (NORVASC) 5 MG tablet, Take 1 tablet (5 mg total) by mouth every morning., Disp: , Rfl: atorvastatin 80 MG tablet, Take 1 tablet (80 mg total) by mouth nightly at bedtime., Disp: , Rfl: benzocaine-menthol 15-4 MG Lozenge lozenge, Place 1 lozenge inside cheek every 2 (two) hours as needed for Sore throat., Disp: , Rfl: budesonide-formoterol 160-4.5 MCG/ACT inhaler, Inhale 2 puffs into the lungs 2 (two) times daily., Disp: , Rfl: carvedilol 12.5 MG tablet, Take 1 tablet (12.5 mg total) by mouth 2 (two) times daily., Disp: , Rfl: [facility] ASPIRIN LOW DOSE 81 MG tablet, Take 1 tablet (81 mg total) by mouth every morning., Disp: , Rfl: diclofenac sodium 1 % gel, Apply 2 g topically 4 (four) times daily. Apply to bilateral knees, Disp: 100 g, Rfl: 0 docusate sodium (COLACE) 100 MG capsule, Take 1 capsule (100 mg total) by mouth daily., Disp: , Rfl: ELIQUIS 5 MG tablet, Take 1 tablet (5 mg total) by mouth 2 (two) times daily., Disp: , Rfl: ezetimibe 10 MG tablet, Take 1 tablet (10 mg total) by mouth daily., Disp: , Rfl: famotidine (PEPCID) 20 MG tablet, Take 1 tablet (20 mg total) by mouth every 12 (twelve) hours., Disp: , Rfl: fenofibrate 160 MG tablet, Take 1 tablet (160 mg total) by mouth daily., Disp: , Rfl: fluticasone propionate (FLONASE) 50 MCG/ACT nasal spray, 1 spray by Nasal route daily., Disp: , Rfl: furosemide 20 MG tablet, Take 1 tablet (20 mg total) by mouth daily., Disp: , Rfl: gabapentin 300 MG capsule, Take 1 capsule (300 mg total) by mouth 3 (three) times daily., Disp: , Rfl: glipiZIDE XL 10 MG 24 hr tablet, Take 1 tablet (10 mg total) by mouth daily with breakfast. Do not break or crush tablet, Disp: , Rfl: HYDROcodone-acetaminophen (NORCO) 10-325 MG tablet, Take 1 tablet by mouth 3 (three) times daily., Disp: , Rfl: INSULIN ASPART 100 UNIT/ML injection (VIAL), Inject into the skin 3 (three) times daily before meals. Indications: ,70 glucose follow hypoglycemic protocol,70-150 0 inits insulin, 151-200 3 units, 201-250 5 units, 251-300 7 units, 301-350 9 units, 351-400 11 units, >400 call MD, Disp: , Rfl: JANUVIA 25 MG Tab, Take 1 tablet (25 mg total) by mouth daily., Disp: , Rfl: lisinopril 2.5 MG tablet, Take 1 tablet (2.5 mg total) by mouth daily., Disp: , Rfl: melatonin 5 MG tablet, Take 3 mg by mouth daily., Disp: , Rfl: pantoprazole EC 40 MG tablet, Take 1 tablet (40 mg total) by mouth daily., Disp: , Rfl: promethazine (PHENERGAN) 12.5 MG tablet, TAKE ONE TABLET THREE TIMES A DAY NEEDED FOR NAUSEA ANDVOMITING, Disp: , Rfl: sertraline 50 MG tablet, Take 1 tablet (50 mg total) by mouth daily., Disp: , Rfl: SITagliptin 100 MG tablet, Take 1 tablet (100 mg total) by mouth daily., Disp: , Rfl: tamsulosin (FLOMAX) 0.4 MG Cap, Take 1 capsule (0.4 mg total) by mouth every morning., Disp: , Rfl: vitamin D2, ergocalciferol, (VITAMIN D, ERGOCALCIFEROL,) 92466 UNITS capsule, Take 1 capsule (50,000 Units total) by mouth., Disp: , Rfl: Review of patient's allergies indicates: Allergen Reactions Clindamycin GI Upset Morphine Vomiting Nitroglycerin Headache Nsaids Unknown Penicillins Rash Past Medical History: Diagnosis Date Arthritis CHF (congestive heart failure) ([facility]) COPD (chronic obstructive pulmonary disease) ([facility]) Hypertension Pneumonia, unspecified organism Renal disorder Stroke ([facility]) Past Surgical History: Procedure Laterality Date HYSTERECTOMY Social History Socioeconomic History Marital status: Tobacco Use Smoking status: Never Smokeless tobacco: Never Substance and Sexual Activity Alcohol use: Never Drug use: Never Sexual activity: Not Currently No family history on file. No family status information on file. Physical Exam Vitals reviewed. Constitutional: Appearance: Normal appearance. She is normal weight. HENT: Right Ear: Tympanic membrane, external ear and ear canal normal. Left Ear: Tympanic membrane, external ear and ear canal normal. Mouth/Throat: Comments: Left proximal tongue with bite injury present. Peers to be healing well. No surrounding redness. No cervical adenopathy noted. Musculoskeletal: Comments: Right knee: There is a fluctuant 4 x 4 centimeter mass over the anterior knee. Nontender palpation no warmth palpation no redness. Positive ecchymosis around this area. Neurological: Mental Status: She is alert. Psychiatric: Mood and Affect: Mood normal. Behavior: Behavior normal. Thought Content: Thought content normal. Judgment: Judgment normal. Filed Vitals: 10/12/24 0900 BP: (!) 171/86 Pulse: 68 Resp: 18 Temp: 97.3 ??F (36.3 ??C) TempSrc: Core SpO2: 95% Weight: 91.6 kg (202 lb) Height: 1.676 m (5' 6 ) Diagnoses/Impression: 1. Ulceration, tongue traumatic 2. Hematoma of right knee region Recommendations and Plan: [id number] antiseptic rinse to help the tongue heal faster. Watchful waiting of the right knee and hip hematoma. If any redness or increased pain occur have them reevaluated Orders Placed This Encounter HYDROcodone-acetaminophen (NORCO) 10-325 MG tablet tamsulosin (FLOMAX) 0.4 MG Cap promethazine (PHENERGAN) 12.5 MG tablet fluticasone propionate (FLONASE) 50 MCG/ACT nasal spray famotidine (PEPCID) 20 MG tablet docusate sodium (COLACE) 100 MG capsule [facility] ASPIRIN LOW DOSE 81 MG tablet ELIQUIS 5 MG tablet amLODIPine (NORVASC) 5 MG tablet amiodarone (PACERONE) 200 MG tablet allopurinol (ZYLOPRIM) 100 MG tablet albuterol sulfate HFA 108 (90 Base) MCG/ACT inhaler JANUVIA 25 MG Tab Reviewed and updated this visit by provider: ELLEN GASPAR Referring Provider: No ref. provider found PCP: OH GOODE MD AND STOCKING IRONER documented in this encounter Plan of Treatment Not on file documented as of this encounter Visit Diagnoses Diagnosis Ulceration, tongue traumatic- Primary Glossitis Hematoma of right knee region documented in this encounter Care Teams Carriage Setter Relationship Specialty Start Date End Date Oh Goode MD [address] [place] [address] PCP - General FAMILY PRACTICE 01/26/20 documented as of this encounter
--- OUTSIDE RECORDS SUMMARY | 2024-11-18 09:09 | XMS_ITS | Continuity of Care Document ---
Author Organization [facility] Address [address] [place] [address] Care Team Providers Care Pleater Name Role Phone Swapnil Adorno MD Attending Provider Salina Delgado MD Referring Provider [phone] Oh Goode MD Primary Care Provider Rosa Young PA-C Emergency Provider Jayy Carrillo MD Attending Provider [phone] Glaren, Kyree Dong APRN Primary Care Provider Emily, Kyree Dong APRN Referring Provider Oh Goode MD Referring Provider Glenn Corcoran MD Emergency Provider Jayy Carrillo MD Other Provider [phone] Beth Goel MD Admit Provider Beth Goel MD Attending Provider Rubi Crisostomo PA-C Other Provider Bandar Loera MD Other Provider [phone] Wes Waite MD Other Provider Prachi Morris APRN Other Provider [phone] Chau Vega DO Attending Provider [phone] Marce YepezC Emergency Provider Hilda Joel APRN Emergency Provider [phone] Care Teams Patient Care Team Team Status: Active Member Role Status Dates Oh Goode MD Family Provider Active Oh Goode MD Primary Care Provider Active Visit Care Team Team Status: Inactive Member Role Status Dates Swapnil Adorno MD Attending Provider Active Salina Delgado MD Referring Provider Active Visit Care Team Team Status: Inactive Member Role Status Dates Jayy Carrillo MD Attending Provider Active Oh Goode MD Primary Care Provider, Referrin g Provider Active Visit Care Team Team Status: Inactive Member Role Status Dates Chau Vega DO Attending Provider Active Oh Goode MD Primary Care Provider, Referrin g Provider Active Visit Care Team Team Status: Inactive Member Role Status Dates Jayy Carrillo MD Attending Provider Active Kyree Diaz , TUBE STATION ATTENDANT Primary Care Provider, Ref erring Provider Active Visit Care Team Team Status: Inactive Member Role Status Dates Kyree Diaz , TUBE STATION ATTENDANT Primary Care Provider Acti ve Glenn Corcoran MD Emergency Provider Active Jayy Carrillo MD Other Provider Active Beth Goel MD Admit Provider, Attending Provide r Active Rubi Crisostomo PA-C Other Provider Active Bandar Loera MD Other Provider Active Wes Waite MD Other Provider Active Prachi Morris APRN Other Provider Active Visit Care Team Team Status: Inactive Member Role Status Dates Kyree Diaz , TUBE STATION ATTENDANT Primary Care Provider Acti ve Marce Yepez PA-C Emergency Provider Active Visit Care Team Team Status: Inactive Member Role Status Dates Kyree Diaz , TUBE STATION ATTENDANT Primary Care Provider Acti ve Chau Vega DO Attending Provider Active Visit Care Team Team Status: Inactive Member Role Status Dates Jayy Carrillo MD Attending Provider Active Oh Goode MD Primary Care Provider, Referrin g Provider Active Visit Care Team Team Status: Inactive Member Role Status Dates Hilda Joel , TUBE STATION ATTENDANT Emergency Provider Active Oh Goode MD Primary Care Provider Active Visit Care Team Team Status: Inactive Member Role Status Dates Oh Goode MD Primary Care Provider Active Rosa Young PA-C Emergency Provider Active Chief Complaint and Reason for Visit Chief Complaint Admit Date COPD April 12, 2024 1:26p m CP May 10, 2024 4:38p m Chronic Kidney Disease Stage 4 chronic k idney dise May 21, 2024 8:15am Chronic kidney disease May 23, 2024 2 :40pm Acute on Chronic Kidney Disease May 6:31pm Diastolic Dysfunction June 04, 2024 10 :23am swelling/ sob July 03, 2024 3: 33pm Dyslipidemia July 11, 2024 11:22am Chronic Kidney Disease Stage 3b chronic kidney dis September 11, 2024 11:37am GLF September 27, 2024 9:30am Reason for Visit Admit Date Dyspnea on exertion April 12, 2024 1:26p m Obesity April 12, 2024 1:26p m Pneumonia due to COVID-19 virus April 1:26pm Obstructive Sleep Apnea-Hypopnea Syndrom e April 12, 2024 1:26pm Acute kidney injury superimposed on micropaleontologist jake kidney disease May 23, 2024 2:40pm Secondary hyperparathyroidism, not elsew here classified May 23, 2024 2:40pm Chronic kidney disease, stage IV (severe ) May 23, 2024 2:40pm Stage 3b chronic kidney disease May 2:40pm Acute kidney injury superimposed on micropaleontologist jake kidney disease May 23, 2024 6:31pm Acute on chronic kidney failure May 6:31pm Acute UTI May 23, 2024 6:31 pm LIV (acute kidney injury) May 23 6:31pm Anemia of chronic disease May 23 6:31pm Chronic anticoagulation May 23, 2024 6:31pm Congestive heart failure May 23, 2024 6:31pm Fatigue May 23, 2024 6:31 pm Hypotension May 23, 2024 6:31 pm SUZANNE (obstructive sleep apnea) May 23, 2024 6:31pm Type 2 diabetes mellitus May 23, 2024 6:31pm Chronic kidney disease, stage IV (severe ) May 23, 2024 6:31pm Chronic obstructive pulmonary disease Ju ly 2023 6:31pm Diabetes May 23, 2024 6:31 pm Essential hypertension May 23, 2024 6 :31pm Obstructive sleep apnea on CPAP May 6:31pm Diastolic dysfunction June 04, 2024 10 :23am Dyslipidemia June 04, 2024 10:2 3am Obesity June 04, 2024 10:2 3am PVT (paroxysmal ventricular tachycardia) June 04, 2024 10:23am Stage III chronic kidney disease June 042023 10:23am Essential hypertension June 04, 2024 1 0:23am Paroxysmal atrial flutter June 04 10:23am Allergies, Adverse Reactions, Alerts Allergen Type Severity Reaction Last Updated Verified Status ceftriaxone Allergy Unknown Anaphylaxis June 04 9:38am Yes Active clindamycin Allergy Unknown Anaphylaxis June 04 9:38am Yes Active Penicillins Allergy Unknown Hives June 04 9:38am Yes Active morphine Adverse Reaction Unknown Vomiting May 9:38am Yes Active nitroglycerin Adverse Reaction Unknown Headache June 04, 2024 9:38am Yes Active Social History Smoking Status Status Start Date End Date Date of Observa tion Never smoked tobacco (finding) June 04, 2024 10:39am Observation Status Observation Response Date of Response Do You Feel Safe in your Home? Yes Yonny barnhart 2023 9:39am Has Lack of Trans Kept You From Med Appts or Getting Meds? No June 04, 2024 9:39am In Past 12 Months, Were You Worried Your Food Would Run Out? Never True June 04, 2024 9:39am What is Your Housing Situati on Today? I Have Housing June 04, 2024 9:39am Gender Identity (if Verbaliz ed by the Patient) May 23, 2024 9:10pm Are You Worried That in Next 2 Mo, You Won't Have Housing? No June 04, 2024 9:39am Do You Have Trouble Paying Your Heating Or Electricity Bill? No June 04, 2024 9:39am Do You Have Trouble Paying F or Medicines? No June 04, 2024 9:39am Are You Currently Unemployed and Looking for Work? No June 04, 2024 9:39am Highest Level of Education Completed High School Diploma/GED June 04, 2024 9:39am Do You Have Trouble With Childcare/Care of a Family Member? No June 04, 2024 9:39am alcohol intake current June 04, 2024 9:39am Substance use type does not use June 04 9:39am Patient Sex Female September 27, 2 024 12:31pm Assigned Sex Female June 14, 1 946 Gender Identity Cisgender/Not transg ishan (finding) May 21, 2024 Status Not May 23, 2024 Family History Relationship Condition Age at Onset Recorded Date/T adonay father Malignant neoplasm of prostate Unknown Heart disease Unknown mother Malignant neoplasm of esophagus Unknown sibling Diabetes mellitus Unknown daughter Alcoholism Unknown Problems Active Problems Medical Problem Onset Date Status Comments LIV (acute kidney injury) Unknown Active LIV (acute kidney injury) Unknown Active LIV (acute kidney injury) Unknown Active Depression with anxiety Unknown Active Effusion of knee joint, left Unknown Active Knee effusion, left Unknown Active Lower extremity pain Unknown Active Elevated brain natriuretic p eptide (BNP) level Unknown Active Paroxysmal atrial flutter Unknown Active Chronic kidney disease, stage 3b Unknown Active Stage 3b chronic kidney disease Unknown Active 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 irus infection Unknown Active Pneumonia due to COVID-19 virus Unknown Active Hematoma of right lower leg Unknown Active Lower extremity injury Unknown Active SUZANNE (obstructive sleep apnea) Unknown Active 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 Unknown Active Acute pain of right hip Unknown Active Chronic systolic dysfunction of left ventricle Unknown Active Visual changes Unknown Active Obstructive sleep apnea on CPAP Unknown Active Acute exacerbation of CHF (congestive heart failure) Unknown Active Secondary hyperparathyroidis m, not elsewhere classified Unknown Active Dyspnea on exertion Unknown Active Speech disturbance Unknown Active Fatigue Unknown Active Shortness of breath Unknown Active Dysarthria Unknown Active Diabetes Unknown Active Chronic pain Unknown Active Essential hypertension Unknown Active Acute respiratory failure Unknown Active Allergic drug reaction Unknown Active Dietary counseling and surveillance Unknown Activ e Type 2 diabetes mellitus Unknown Active Chronic kidney disease, stag e IV (severe) Unknown Active Stage III chronic kidney disease Unknown Active Baseline creatinine ranges between 1.3 and 1.60. Dyslipidemia Unknown Active Congestive heart failure Unknown Active His tory of reduced ejection fraction with improvement in EF to 55% on most recent echo. Diastolic dysfunction also noted. Anemia of chronic disease Unknown Active Hypoxemia Unknown Active Expressive aphasia Unknown Active Obstructive sleep apnea Unknown Active Atrial fibrillation Unknown Active PVT (paroxysmal ventricular tachycardia) Unknown Active Chronic anticoagulation Unknown Active Pulmonary hypertension Unknown Active Cough Unknown Active Dysphagia Unknown Active Dysuria Unknown Active Leukopenia Unknown Active Community acquired pneumonia Unknown Active Community acquired pneumonia Unknown Active Diastolic heart failure Unknown Active Asthma exacerbation in COPD Unknown Active Facial paresthesia Unknown Active Diastolic dysfunction Unknown Active Abnormal chest x-ray Unknown Active Renal failure Unknown Active Elevated troponin Unknown Active Urinary retention Unknown Active Acute cerebrovascular accident Unknown Active Acute cerebrovascular accide nt (CVA) Unknown Active Acute kidney injury superimp osed on chronic kidney disease Unknown Active Acute kidney injury superimp osed on chronic kidney disease Unknown Active Acute kidney injury superimp osed on CKD Unknown Active DVT prophylaxis Unknown Active Weakness Unknown Active Weakness Unknown Active Acute UTI Unknown Active PAF (paroxysmal atrial fibrillation) Unknown Active Chronic obstructive pulmonar y disease, unspecified Unknown Active Chronic obstructive pulmonar y disease Unknown Active patient states she w as told she does not have COPD by a homemaking rehabilitation consultant COPD exacerbation Unknown Active COPD exacerbation Unknown Active Gout flare Unknown Active Acute on chronic kidney failure Unknown Active Hypotension Unknown Active Pneumonia Unknown Active Pneumonia Unknown Active Pneumonia Unknown Active Obesity Unknown Active Cerebrovascular accident Unknown Active 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 Dehydration Unknown Active Inactive/Resolved Problems Medical Problem Onset Date Status Comments UTI (urinary tract infection) Unknown Resolved UTI (urinary tract infection) Unknown Resolved Obstructive sleep apnea Unknown Resolved SUZANNE on CPAP Unknown Resolved Diabetes 1.5, managed as type 2 Unknown Resolved Fatigue Unknown Resolved Shortness of breath Unknown Resolved Orthostatic hypotension Unknown Resolved Generalized weakness Unknown Resolved Gastroenteritis Unknown Resolved Hypersomnia Unknown Resolved Atypical chest pain Unknown Resolved Acute UTI Unknown Resolved Lower extremity edema Unknown Resolved Gastroesophageal reflux disease Unknown Resolved Nausea and vomiting Unknown Resolved Cardiomyopathy, unspecified Unknown Resolved Vomiting Unknown Resolved Cholelithiasis Unknown Resolved Dehydration Unknown Resolved Dehydration Unknown Resolved Medications Medication Status Dose Units Route Directions Qty Days St art Date Stop Date End Date Instructions Adherence Gabapentin 300 mg capsule Active 300 MG PO THREE TIMES A DAY 2019 12:00a m Comp.Stocki ng,Knee,Jose g,Medium misc Active 0 .Route January 17, 2023 11:00p m As directed Glucagon 3 mg/actuatio n spray,non-a erosol Active 3 MG NASAL ONCE June 08, 2023 11:00p m as a single dose; may repeat once in 15 minutes if no response Glucose (Dex4 Glucose) 4 gram tablet,chew able Active 16 GM PO Q15M as needed for hypoglycemi a 60 June 08, 2023 11:00p m until symptoms of low blood sugar are controlled Dicyclomine 10 mg capsule Active 10 MG PO THREE TIMES A DAY as needed for Abdominal Discomfort March 27, 2023 3:43pm Acetaminoph en 500 mg Capsule Active 500 MG PO Q6H Novemb er 2022 12:00a m Benzocaine- Menthol (Chlorasept ic Sore Throat) 6-10 mg Lozenge Active 1 LOZENG E PO As Needed as needed for Sore Throat 18 Novemb er 2022 12:00a m Sennosides- Docusate Sodium (Senokot-S) 8.6-50 mg Tablet Active 1 TAB-CA P PO Q12H as needed for constipatio n 90 Novemb er 2022 1:21pm Famotidine 20 mg Tablet Active 20 MG PO EVERY 12 HOURS 90 Novemb er 2022 12:00a m Ergocalcife rol (Vitamin D2) 1,250 mcg (50,000 unit) Capsule Active 1250 MCG PO WEEKLY February 21, 2021 11:00p m on Docusate Sodium 100 mg capsule Active 1 CAP PO DAILY May 03, 2022 11:00p m Tamsulosin 0.4 mg Capsule Active 0.4 MG PO Every Morning May 10, 2022 11:00p m [facility] 10 [facility] Sitagliptin Phosphate (Januvia) 25 mg tablet Active 25 [facility] 12:00a [facility] Melatonin 5 mg Tablet Active 5 [facility] 12:00a m Atorvastati n 80 mg tablet Active 80 MG PO [facility] 8:17pm Allopurinol 100 mg tablet Active 100 MG [facility]ILY [facility] 8:17pm Hydrocodone -Acetaminop hen 10-325 mg tablet Active 1 TABLET PO Q8H as needed for Pain (Scale Score 4-6) [facility] 12:[facility] Amiodarone 200 mg tablet Active 200 MG PO DAILY January 16, 2024 5:23pm Apixaban (Eliquis) 5 mg tablet Active 5 MG PO Q12H January 16, 2024 5:23pm Carvedilol 12.5 mg tablet Active 12.5 MG PO Q12H 60 June 19, 2024 1:04pm must administer with a meal/food Furosemide 20 mg tablet Active 20 MG PO Every Morning 30 2023 11:00p m Immunizations Immunization Event Date Not Given Reason Dose Number Meter Mechanic Lot Number Vaccine Information Statement (VIS) Detail Administration Location Fluad Quad High Dose (65+) August 25, 2021 Fluad Quad High Dose (65+) August 11, 2022 Fluad Quad High Dose (65+) September 21, 2023 [id number] Fluarix Quad 6m+ October 27, 2018 Fluarix Quad 6m+ August 13, 2020 Flulaval Quad 3YR+ October 27, 2018 Fluzone High-Dose 65YR+ October 05, 2016 Fluzone High-Dose 65YR+ August 30, 2017 Fluzone High-Dose 65YR+ October 02, 2019 Fluzone Quad 3YR September 08, 2015 Influenza, adjuvanted September 21, 2023 Pneumococcal Conjugate Vaccine, 13 valent October 02, 2019 Influenza, inactivated quadrivalent September 01, 2012 Influenza, inactivated quadrivalent August 23, 2014 SARS-COV-2 (COVID-19) Comirnaty April 23, 2022 SARS-COV-2 (COVID-19) Pfizer January 08, 2021 SARS-COV-2 (COVID-19) Pfizer February 01, 2021 SARS-COV-2 (COVID-19) Pfizer August 25, 2021 Tetanus, Diphtheria, Pertussis (Tdap) October 05, 2016 Procedures Procedure Date Performed Status Blood Culture May 23, 2024 completed Urine Culture May 23, 2024 completed Urine Culture May 10, 2024 completed Relevant Diagnostic Tests and/or Laboratory Data Laboratory Results Test Date/Time Result Interpretation Reference Range Result Comment Performing Site White Blood Count May 10, 2024 3:53pm 4.8 K/mm3 4.5-10.0 [facility] [id number] [facility] [address] [address] White Blood Count May 21, 2024 7:49am 5.1 K/mm3 4.5-10.0 [facility] [id number] [address] [address] White Blood Count May 24, 2024 4:31am 4.2 K/mm3 Below low normal 4.5-10.0 [facility] [id number] [address] [address] White Blood Count July 03, 2024 3:19pm 3.3 K/mm3 Below low normal 4.5-10.0 [facility] [id number] [address] [address] White Blood Count September 11, 2024 12:03pm 3.6 K/mm3 Below low normal 4.5-10.0 [facility] [id number] [address] [address] Red Blood Count May 10, 2024 3:53pm 2.91 M/mm3 Below low normal 4.2-5.4 [facility] [id number] [address] [address] Red Blood Count May 21, 2024 7:49am 3.07 M/mm3 Below low normal 4.2-5.4 [facility] [id number] [address] [address] Red Blood Count May 24, 2024 4:31am 2.72 M/mm3 Below low normal 4.2-5.4 [facility] [id number] [address] [address] Red Blood Count July 03, 2024 3:19pm 2.75 M/mm3 Below low normal 4.2-5.4 [facility] [id number] [address] [address] Red Blood Count September 11, 2024 12:03pm 2.81 M/mm3 Below low normal 4.2-5.4 [facility] [id number] [address] [address] Hemoglobin May 10, 2024 3:53pm 9.7 g/dL Below low normal 12.0-15.0 [facility] [id number] [address] [address] Hemoglobin May 21, 2024 7:49am 10.3 g/dL Below low normal 12.0-15.0 [facility] [id number] [address] [address] Hemoglobin May 24, 2024 4:31am 9.2 g/dL Below low normal 12.0-15.0 [facility] [id number] [address] [place] [address] Hemoglobin July 03, 2024 3:19pm 9.4 g/dL Below low normal 12.0-15.0 [facility] [id number] [address] [place] [address] Hemoglobin September 11, 2024 12:03pm 9.6 g/dL Below low normal 12.0-15.0 [facility] [id number] [address] [place] [address] Hematocrit May 10, 2024 3:53pm 31.0 % Below low normal 37.0-47.0 [facility] [id number] [address] [place] [address] Hematocrit May 21, 2024 7:49am 32.6 % Below low normal 37.0-47.0 [facility] [id number] [address] [place] [address] Hematocrit May 24, 2024 4:31am 28.7 % Below low normal 37.0-47.0 [facility] [id number] [address] [place] [address] Hematocrit July 03, 2024 3:19pm 29.8 % Below low normal 37.0-47.0 [facility] [id number] [address] [place] [address] Hematocrit September 11, 2024 12:03pm 29.8 % Below low normal 37.0-47.0 [facility] [id number] [address] [place] [address] Mean Corpuscular Volume May 10, 2024 3:53pm 106.5 fL Above high normal 80-100 [facility] [id number] [address] [place] [address] Mean Corpuscular Volume May 21, 2024 7:49am 106.2 fL Above high normal 80-100 [facility] [id number] [address] [place] [address] Mean Corpuscular Volume May 24, 2024 4:31am 105.5 fL Above high normal 80-100 [facility] [id number] [address] [place] [address] Mean Corpuscular Volume July 03, 2024 3:19pm 108.4 fL Above high normal 80-100 [facility] [id number] [address] [facility] [address] Mean Corpuscular Volume September 11, 2024 12:03pm 106.0 fL Above high normal 80-100 [facility] [id number] [address] [facility] [address] Mean Corpuscular Hemoglobin May 10, 2024 3:53pm 33.3 pg 26-34 [facility] [id number] [address] [facility] [address] Mean Corpuscular Hemoglobin May 21, 2024 7:49am 33.6 pg 26-34 [facility] [id number] [address] [place] [address] Mean Corpuscular Hemoglobin May 24, 2024 4:31am 33.8 pg 26-34 [facility] [id number] [address] [place] [address] Mean Corpuscular Hemoglobin July 03, 2024 3:19pm 34.2 pg Above high normal 26-34 [facility] [id number] [address] [place] [address] Mean Corpuscular Hemoglobin September 11, 2024 12:03pm 34.2 pg Above high normal 26-34 [facility] [id number] [address] [place] [address] Mean Corpuscular Hemoglobin Concent May 10, 2024 3:53pm 31.3 g/dL Below low normal 32-36 [facility] [id number] [address] [place] [address] Mean Corpuscular Hemoglobin Concent May 21, 2024 7:49am 31.6 g/dL Below low normal 32-36 [facility] [id number] [address] [place] [address] Mean Corpuscular Hemoglobin Concent May 24, 2024 4:31am 32.1 g/dL 32-36 [facility] [id number] [address] [place] [address] Mean Corpuscular Hemoglobin Concent July 03, 2024 3:19pm 31.5 g/dL Below low normal 32-36 [facility] [id number] [address] [place] [address] Mean Corpuscular Hemoglobin Concent September 11, 2024 12:03pm 32.2 g/dL 32-36 [facility] [id number] [address] [place] [address] Red Cell Distribution Width May 10, 2024 3:53pm 16.1 % Above high normal 11.5-14.5 [facility] [id number] [address] [facility] [address] Red Cell Distribution Width May 21, 2024 7:49am 16.3 % Above high normal 11.5-14.5 [facility] [id number] [address] [place] [address] Red Cell Distribution Width May 24, 2024 4:31am 16.3 % Above high normal 11.5-14.5 [facility] [id number] [address] [facility] [address] Red Cell Distribution Width July 03, 2024 3:19pm 16.4 % Above high normal 11.5-14.5 [facility] [id number] [address] [place] [address] Red Cell Distribution Width September 11, 2024 12:03pm 16.5 % Above high normal 11.5-14.5 [facility] [id number] [address] [place] [address] Platelet Count May 10, 2024 3:53pm 270 k/mm3 150-375 [facility] [id number] [address] [place] [address] Platelet Count May 21, 2024 7:49am 203 k/mm3 150-375 [facility] [id number] [address] [address] Platelet Count May 24, 2024 4:31am 209 k/mm3 150-375 [facility] [id number] [address] [place] [address] Platelet Count July 03, 2024 3:19pm 210 k/mm3 150-375 [facility] [id number] [address] [facility] [address] Platelet Count September 11, 2024 12:03pm 217 k/mm3 150-375 [facility] [id number] [address] [address] Mean Platelet Volume May 10, 2024 3:53pm 9.5 fL 7.4-10.4 [facility] [id number] [address] [place] [address] Mean Platelet Volume May 21, 2024 7:49am 9.0 fL 7.4-10.4 [facility] [id number] [facility] [address] [address] Mean Platelet Volume May 24, 2024 4:31am 9.7 fL 7.4-10.4 [facility] [id number] [address] [address] Mean Platelet Volume July 03, 2024 3:19pm 9.6 fL 7.4-10.4 [facility] [id number] [address] [address] Mean Platelet Volume September 11, 2024 12:03pm 9.2 fL 7.4-10.4 [facility] [id number] [facility] [address] [address] Nucleated Red Blood Cells % May 10, 2024 3:53pm 0.0 % 0.0-0.2 [facility] [id number] [facility] [address] [address] Nucleated Red Blood Cells % May 21, 2024 7:49am 0.0 % 0.0-0.2 [facility] [id number] [address] [place] [address] Nucleated Red Blood Cells % May 23, 2024 3:13pm 0.0 % 0.0-0.2 [facility] [id number] [facility] [address] [address] Nucleated Red Blood Cells % July 03, 2024 3:19pm 0.0 % 0.0-0.2 [facility] [id number] [address] [place] [address] Immature Granulocyte % (Auto) May 10, 2024 3:53pm 0.2 % 0-0.5 [facility] [id number] [facility] [address] [address] Immature Granulocyte % (Auto) May 21, 2024 7:49am 0.2 % 0-0.5 [facility] [id number] [facility] [address] [address] Immature Granulocyte % (Auto) May 23, 2024 3:13pm 0.2 % 0-0.5 [facility] [id number] [address] [place] [address] 25778 Immature Granulocyte % (Auto) July 03, 2024 3:19pm 0.3 % 0-0.5 [facility] [id number] [address] [place] [address] 71293 Neutrophils (%) (Auto) May 10, 2024 3:53pm 62.6 % 45.5-73.1 [facility] [id number] [address] [place] [address] 03201 Neutrophils (%) (Auto) May 21, 2024 7:49am 67.7 % 45.5-73.1 [facility] [id number] [address] [place] [address] 18683 Neutrophils (%) (Auto) May 23, 2024 3:13pm 67.8 % 45.5-73.1 [facility] [id number] [address] [place] [address] 64714 Neutrophils (%) (Auto) July 03, 2024 3:19pm 66.1 % 45.5-73.1 [facility] [id number] [address] [place] [address] 51947 Lymphocytes (%) (Auto) May 10, 2024 3:53pm 24.3 % 18.3-44.2 [facility] [id number] [address] [place] [address] 11692 Lymphocytes (%) (Auto) May 21, 2024 7:49am 20.7 % 18.3-44.2 [facility] [id number] [address] [place] [address] 22640 Lymphocytes (%) (Auto) May 23, 2024 3:13pm 20.9 % 18.3-44.2 [facility] [id number] [address] [place] [address] 29099 Lymphocytes (%) (Auto) July 03, 2024 3:19pm 22.2 % 18.3-44.2 [facility] [id number] [address] [place] [address] 67025 Monocytes (%) (Auto) May 10, 2024 3:53pm 7.1 % 2.6-8.5 [facility] [id number] [address] [place] [address] 73665 Monocytes (%) (Auto) May 21, 2024 7:49am 5.7 % 2.6-8.5 [facility] [id number] [address] [place] [address] 68614 Monocytes (%) (Auto) May 23, 2024 3:13pm 6.8 % 2.6-8.5 [facility] [id number] [address] [place] [address] 59731 Monocytes (%) (Auto) July 03, 2024 3:19pm 5.7 % 2.6-8.5 [facility] [id number] [address] [place] [address] 24224 Eosinophils (%) (Auto) May 10, 2024 3:53pm 5.0 % Above high normal 0-4.4 [facility] [id number] [address] [place] [address] 02658 Eosinophils (%) (Auto) May 21, 2024 7:49am 5.1 % Above high normal 0-4.4 [facility] [id number] [address] [place] [address] 60000 Eosinophils (%) (Auto) May 23, 2024 3:13pm 3.6 % 0-4.4 [facility] [id number] [address] [place] [address] 10639 Eosinophils (%) (Auto) July 03, 2024 3:19pm 4.8 % Above high normal 0-4.4 [facility] [id number] [address] [place] [address] 48643 Basophils (%) (Auto) May 10, 2024 3:53pm 0.8 % 0.2-1.2 [facility] [id number] [address] [place] [address] 50365 Basophils (%) (Auto) May 21, 2024 7:49am 0.6 % 0.2-1.2 [facility] [id number] [address] [place] [address] 74434 Basophils (%) (Auto) May 23, 2024 3:13pm 0.7 % 0.2-1.2 [facility] [id number] [address] [place] [address] 11213 Basophils (%) (Auto) July 03, 2024 3:19pm 0.9 % 0.2-1.2 [facility] [id number] [address] [place] [address] 92752 Nucleated RBC Absolute Count (auto) May 10, 2024 3:53pm 0.000 K/mm3 0.0-0.012 [facility] [id number] [address] [place] [address] 76017 Nucleated RBC Absolute Count (auto) May 21, 2024 7:49am 0.000 K/mm3 0.0-0.012 [facility] [id number] [address] [place] [address] 09969 Nucleated RBC Absolute Count (auto) May 23, 2024 3:13pm 0.000 K/mm3 0.0-0.012 [facility] [id number] [address] [place] [address] 33086 Nucleated RBC Absolute Count (auto) July 03, 2024 3:19pm 0.000 K/mm3 0.0-0.012 [facility] [id number] [address] [place] [address] 96568 Absolute Immature Granulocyte (auto May 10, 2024 3:53pm 0.01 K/mm3 0.00-0.031 [facility] [id number] [address] [place] [address] 16320 Absolute Immature Granulocyte (auto May 21, 2024 7:49am 0.01 K/mm3 0.00-0.031 [facility] [id number] [address] [place] [address] 30322 Absolute Immature Granulocyte (auto May 23, 2024 3:13pm 0.01 K/mm3 0.00-0.031 [facility] [id number] [address] [place] [address] 04504 Absolute Immature Granulocyte (auto July 03, 2024 3:19pm 0.01 K/mm3 0.00-0.031 [facility] [id number] [address] [place] [address] 32830 Absolute Neutrophils (auto) May 10, 2024 3:53pm 3.0 K/mm3 1.3-6.7 [facility] [id number] [address] [place] [address] 98143 Absolute Neutrophils (auto) May 21, 2024 7:49am 3.4 K/mm3 1.3-6.7 [facility] [id number] [address] [place] [address] 39556 Absolute Neutrophils (auto) May 23, 2024 3:13pm 2.8 K/mm3 1.3-6.7 [facility] [id number] [address] [place] [address] 21294 Absolute Neutrophils (auto) July 03, 2024 3:19pm 2.2 K/mm3 1.3-6.7 [facility] [id number] [address] [place] [address] 61957 Lymphocytes # (Auto) May 10, 2024 3:53pm 1.16 K/mm3 0.9-3.2 [facility] [id number] [address] [place] [address] 90101 Lymphocytes # (Auto) May 21, 2024 7:49am 1.05 K/mm3 0.9-3.2 [facility] [id number] [address] [place] [address] 01123 Lymphocytes # (Auto) May 23, 2024 3:13pm 0.86 K/mm3 Below low normal 0.9-3.2 [facility] [id number] [address] [place] [address] 88984 Lymphocytes # (Auto) July 03, 2024 3:19pm 0.74 K/mm3 Below low normal 0.9-3.2 [facility] [id number] [address] [place] [address] Monocytes # (Auto) May 10, 2024 3:53pm 0.3 K/mm3 0.1-0.6 [facility] [id number] [address] [place] [address] Monocytes # (Auto) May 21, 2024 7:49am 0.3 K/mm3 0.1-0.6 [facility] [id number] [address] [place] [address] Monocytes # (Auto) May 23, 2024 3:13pm 0.3 K/mm3 0.1-0.6 [facility] [id number] [address] [place], [place] [address] Monocytes # (Auto) July 03, 2024 3:19pm 0.2 K/mm3 0.1-0.6 [facility] [id number] [address] [place], [place] [address] Eosinophils # (Auto) May 10, 2024 3:53pm 0.2 K/mm3 0-0.3 [facility] [id number] [address] [place] [address] Eosinophils # (Auto) May 21, 2024 7:49am 0.3 K/mm3 0-0.3 [facility] [id number] [address] [place] [address] Eosinophils # (Auto) May 23, 2024 3:13pm 0.2 K/mm3 0-0.3 [facility] [id number] [address] [address] Eosinophils # (Auto) July 03, 2024 3:19pm 0.2 K/mm3 0-0.3 [facility] [id number] [address] [address] Basophils # (Auto) May 10, 2024 3:53pm 0.0 K/mm3 0.0-0.1 [facility] [id number] [address] [address] Basophils # (Auto) May 21, 2024 7:49am 0.0 K/mm3 0.0-0.1 [facility] [id number] [address] [facility] [address] [place] [address]34 Basophils # (Auto) May 23, 2024 3:13pm 0.0 K/mm3 0.0-0.1 [facility] [id number] [address] [address] Basophils # (Auto) July 03, 2024 3:19pm 0.0 K/mm3 0.0-0.1 [facility] [id number] [address] [address] Platelet Estimate May 10, 2024 3:53pm Adequate Adequate [facility] [id number] [address] [address] Platelet Estimate May 21, 2024 7:49am Adequate Adequate [facility] [id number] [address] [address] Platelet Estimate July 03, 2024 3:19pm Adequate Adequate [facility] [id number] [address] [address] Hypochromasia May 21, 2024 7:49am 1+ [facility] [id number] [address] [address] Anisocytosis May 10, 2024 3:53pm 1+ [facility] [id number] [address] [address] Anisocytosis July 03, 2024 3:19pm 1+ [facility] [id number] [address] [address] Macrocytosis May 10, 2024 3:53pm 1+ NORMAL [facility] [id number] [address] [address] Macrocytosis May 21, 2024 7:49am 1+ NORMAL [facility] [id number] [address] [place] [address] 39876 Macrocytosis July 03, 2024 3:19pm 1+ NORMAL [facility] [id number] [address] [place], [place] [address] Schistocytes May 10, 2024 3:53pm None seen [facility] [id number] [address] [place] [address] 34952 Schistocytes May 21, 2024 7:49am None seen [facility] [id number] [address] [place] [address] 75046 Schistocytes July 03, 2024 3:19pm None seen [facility] [id number] [address] [place] [address] 5[address] Prothrombin Time May 10, 2024 3:53pm 17.5 s Above high normal 11.1-14.7 [facility] [id number] [address] [place] [address] Prothrombin Time July 03, 2024 3:19pm 20.1 s Above high normal 11.1-14.7 [facility] [id number] [address] [place] [address] Prothromb Time International Ratio May 10, 2024 3:53pm 1.4 INR Indication----- ---- --------0.9 - 1.1 Patients not on anticoagulant therapy.2.0 - 3.0 Routine therapy.2.5 - 3.5 Recurrent myocardial infarction or mechanical prosthetic valves. [facility] [id number] [address] [place] [address] 54804 Prothromb Time International Ratio July 03, 2024 3:19pm 1.7 INR Indication----- ---- --------0.9 - 1.1 Patients not on anticoagulant therapy.2.0 - 3.0 Routine therapy.2.5 - 3.5 Recurrent myocardial infarction or mechanical prosthetic valves. [facility] [id number] [address] [place] [address] 28166 Activated Partial Thromboplast Time May 10, 2024 3:53pm 37.0 s Above high normal 22.3-36.8 [facility] [id number] [address] [address] Activated Partial Thromboplast Time July 03, 2024 3:19pm 38.5 s Above high normal 22.3-36.8 [facility] [id number] [address] [address] Urine Color May 10, 2024 4:55pm Yellow Yellow [facility] [id number] [address] [address] Urine Color May 23, 2024 3:17pm Yellow Yellow [facility] [id number] [address] [address] Urine Appearance May 10, 2024 4:55pm Cloudy Above high normal Clear [facility] [id number] [address] [address] Urine Appearance May 23, 2024 3:17pm Clear Clear [facility] [id number] [facility] [address] [address] Urine pH May 10, 2024 4:55pm 5.0 5.0-9.0 [facility] [id number] [address] [address] Urine pH May 23, 2024 3:17pm 5.0 5.0-9.0 [facility] [id number] [address] [address] Urine Specific [place] May 10, 2024 4:55pm 1.014 1.001-1.[address] [place] [address] [facility] [id number] [facility] [address] [address] Urine Specific [place] May 23, 2024 3:17pm 1.016 1.001-1.[address] [place] [address] [facility] [id number] [facility] [address] [address] Urine Protein May 10, 2024 4:55pm 1+ mg/dL Above high normal Negative [facility] [id number] [address] [address] Urine Protein May 23, 2024 3:17pm Trace mg/dL Negative [facility] [id number] [facility] [address] [address] Urine Glucose (UA) May 10, 2024 4:55pm Trace mg/dL Above high normal Negative [facility] [id number] [facility] [address] [address] Urine Glucose (UA) May 23, 2024 3:17pm Negative mg/dL [facility] [id number] [address] [place] [address] Urine Ketones May 10, 2024 4:55pm Negative mg/dL [facility] [id number] [address] [place] [address] 30448 Urine Ketones May 23, 2024 3:17pm Negative mg/dL [facility] [id number] [address] [place] [address] 56561 Urine Blood (Manual) May 10, 2024 4:55pm Negative Negative [facility] [id number] [address] [place] [address] 88709 Urine Blood (Manual) May 23, 2024 3:17pm Negative [facility] [id number] [address] [place] [address] 96158 Urine Nitrate May 10, 2024 4:55pm Negative [facility] [id number] [address] [place] [address] 04902 Urine Nitrate May 23, 2024 3:17pm Negative [facility] [id number] [address] [place] [address] 78518 Urine Bilirubin May 10, 2024 4:55pm Negative [facility] [id number] [address] [place] [address] 74047 Urine Bilirubin May 23, 2024 3:17pm Negative [facility] [id number] [address] [facility] [address] [place] [address] 13155 Urine Urobilinogen May 10, 2024 4:55pm 0.2 mg/dL <2.0 [facility] [id number] [address] [address] Urine Urobilinogen May 23, 2024 3:17pm 0.2 mg/dL <2.0 [facility] [id number] [address] [place] [address] 94684 Urine Leukocyte Esterase (Reflex) May 10, 2024 4:55pm 1+ ILIANA/UL Above high normal Negative [facility] [id number] [address] [place] [address] 11069 Urine Leukocyte Esterase (Reflex) May 23, 2024 3:17pm 2+ ILIANA/UL Above high normal Negative [facility] [id number] [address] [address] Urine RBC May 10, 2024 4:55pm 0-2 [HPF] 0-2 [facility] [id number] [address] [address] Urine RBC May 23, 2024 3:17pm 0-2 [HPF] 0-2 [facility] [id number] [address] [address] Urine WBC May 10, 2024 4:55pm 21-50 [HPF] Above high normal 0-3 [facility] [id number] [address] [address] Urine WBC May 23, 2024 3:17pm 11-20 [HPF] Above high normal 0-3 [facility] [id number] [address] [address] Urine Squamous Epithelial Cells May 10, 2024 4:55pm Few [HPF] Few [facility] [id number] [address] [place] [address]6054 Urine Squamous Epithelial Cells May 23, 2024 3:17pm Few [HPF] Few [facility] [id number] [address] [place] [address] 77774 Urine Bacteria May 10, 2024 4:55pm 1+ [HPF] Above high normal [facility] [id number] [facility] [address] [address] Urine Bacteria May 23, 2024 3:17pm None seen [HPF] [facility] [id number] [address] [place] [address] 24534 Urine Eosinophils May 24, 2024 4:42am Rare % None Seen [facility] [id number] [facility] [address] [address] Urine Random Microalbumin May 21, 2024 7:49am 240.0 mg/L Above high normal 0-16.7 [facility] [id number] [address] [place] [address] 37229 Urine Microalbumin/ Creatinine Ratio May 21, 2024 7:49am 323.9 mg/g Above high normal 0-30 [facility] [id number] [address] [place] [address] 81260 Urine Random Total Protein May 21, 2024 7:49am 58 mg/dL The reference range and other method performancespec ifications have not been established for this test. Thetest result should be integrated into the clinical context for interpretation. [facility] [id number] [address] [place] [address] 06677 Urine Random Total Protein May 24, 2024 4:42am 35 mg/dL The reference range and other method performancespec ifications have not been established for this test. Thetest result should be integrated into the clinical context for interpretation. [facility] [id number] [address] [place] [address] 22737 Urine Random Total Protein September 11, 2024 12:08pm 75 mg/dL The reference range and other method performancespec ifications have not been established for this test. Thetest result should be integrated into the clinical context for interpretation. [facility] [id number] [address] [place], [place] [address] Urine Random Sodium May 24, 2024 4:42am 85 meq/L The reference range and other method performancespec ifications have not been established for this test. Thetest result should be integrated into the clinical context for interpretation. [facility] [id number] [address] [place] [address] 27755 Urine Creatinine May 21, 2024 7:49am 74.1 mg/dL [facility] [id number] [address] [place] [address] 71009 Urine Creatinine May 24, 2024 4:42am 66.8 mg/dL [facility] [id number] [address] [place] [address] 77571 Urine Creatinine September 11, 2024 12:08pm 19.1 mg/dL [facility] [id number] [address] [place] [address] Urine Protein/Creat inine Ratio 2 May 21, 2024 7:49am 0.78 mg/mg Above high normal 0-0.20 [facility] [id number] [address] [place] [address] Urine Protein/Creat inine Ratio 2 May 24, 2024 4:42am 0.52 mg/mg Above high normal 0-0.20 [facility] [id number] [address] [place] [address] Urine Protein/Creat inine Ratio 2 September 11, 2024 12:08pm 3.93 mg/mg Above high normal 0-0.20 [facility] [id number] [address] [place] [address] Urine Random Urea May 24, 2024 4:42am 543 mg/dL The reference range and other method performancespec ifications have not been established for this test. Thetest result should be integrated into the clinical context for interpretation. [facility] [id number] [address] [address] Sodium Level May 10, 2024 3:53pm 140 mmol/L 137-145 [facility] [id number] [address] [address] Sodium Level May 21, 2024 7:49am 140 mmol/L 137145 [facility] [id number] [address] [address] Sodium Level May 26, 2024 5:32am 139 mmol/L [address] [facility] [id number] [address] [address] Sodium Level July 03, 2024 3:19pm 139 mmol/L 137-145 [facility] [id number] [address] [address] Sodium Level September 11, 2024 12:03pm 141 mmol/L 137-145 [facility] [id number] [address] [address] Potassium Level May 10, 2024 3:53pm 4.2 mmol/L 3.4-5.0 [facility] [id number] [address] [address] Potassium Level May 21, 2024 7:49am 4.2 mmol/L 3.4-5.0 [facility] [id number] [address] [address] Potassium Level May 26, 2024 5:32am 4.5 mmol/L 3.4-5.0 [facility] [id number] [address] [address] Potassium Level July 03, 2024 3:19pm 4.9 mmol/L 3.4-5.0 [facility] [id number] [address] [address] Potassium Level September 11, 2024 12:03pm 4.4 mmol/L 3.4-5.0 [facility] [id number] [address] [address] Chloride Level May 10, 2024 3:53pm 108 mmol/L Above high normal 98-107 [facility] [id number] [address] [address] Chloride Level May 21, 2024 7:49am 102 mmol/L 98-107 [facility] [id number] [address] [facility] [address] Chloride Level May 26, 2024 5:32am 108 mmol/L Above high normal 98-107 [facility] [id number] [address] [facility] [address] Chloride Level July 03, 2024 3:19pm 108 mmol/L Above high normal 98107 [facility] [id number] [address] [facility] [address] Chloride Level September 11, 2024 12:03pm 107 mmol/L [address] [facility] [id number] [address] [facility] [address] Carbon Dioxide Level May 10, 2024 3:53pm 26 mmol/L 30 [facility] [id number] [address] [facility] [address] Carbon Dioxide Level May 21, 2024 7:49am 27 mmol/L 30 [facility] [id number] [address] [place] [address] Carbon Dioxide Level May 26, 2024 5:32am 26 mmol/L [facility] [id number] [address] [place] [address] Carbon Dioxide Level July 03, 2024 3:19pm 23 mmol/L 30 [facility] [id number] [address] [facility] [address] Carbon Dioxide Level September 11, 2024 12:03pm 28 mmol/L 30 [facility] [id number] [address] [place] [address] Anion Gap May 10, 2024 3:53pm 6 mmol/L 12 [facility] [id number] [address] [facility] [address] Anion Gap May 21, 2024 7:49am 11 mmol/L [address] [facility] [id number] [address] [facility] [address] Anion Gap May 26, 2024 5:32am 5 mmol/L [facility] [id number] [address] [facility] [address] Anion Gap July 03, 2024 3:19pm 8 mmol/L [address] [facility] [id number] [address] [facility] [address] Anion Gap September 11, 2024 12:03pm 6 mmol/L [address] [facility] [id number] [address] [address] Blood Urea Nitrogen May 10, 2024 3:53pm 58 mg/dL Above high normal 7-17 Delta: 47 on 02/17/24 [facility] [id number] [address] [address] Blood Urea Nitrogen May 21, 2024 7:49am 53 mg/dL Above high normal 7-17 [facility] [id number] [address] [address] Blood Urea Nitrogen May 26, 2024 5:32am 46 mg/dL Above high normal 7-17 [facility] [id number] [address] [address] Blood Urea Nitrogen July 03, 2024 3:19pm 32 mg/dL Above high normal 7-17 Delta: 46 on 05/26/24-32 [facility] [id number] [address] [address] Blood Urea Nitrogen September 11, 2024 12:03pm 30 mg/dL Above high normal -[address] [place] [address] Laboratory [id number] [address] [address] Creatinine May 10, 2024 3:53pm 3.20 mg/dL Above high normal 0.7-1.0 [facility] [id number] [address] [address] Creatinine May 21, 2024 7:49am 3.70 mg/dL Above high normal 0.7-1.0 [facility] [id number] [address] [address] Creatinine May 26, 2024 5:32am 2.70 mg/dL Above high normal 0.7-1.0 [facility] [id number] [address] [address] Creatinine July 03, 2024 3:19pm 2.40 mg/dL Above high normal 0.7-1.0 [facility] [id number] [address] [address] Creatinine September 11, 2024 12:03pm 2.60 mg/dL Above high normal 0.7-1.0 [facility] [id number] [address] [address] Estimat Glomerular Filtration Rate May 10, 2024 3:53pm 14 Below low normal >59 > OR = 60 ml/min/1.73 square metersThe MDRD formula used to calculate the eGFR result has not been validated in patients > 70 years of age. [facility] [id number] [address] [place] [address] Estimat Glomerular Filtration Rate May 21, 2024 7:49am 12 Below low normal >59 > OR = 60 ml/min/1.73 square metersThe MDRD formula used to calculate the eGFR result has not been validated in patients > 70 years of age. [facility] [id number] [address] [place] [address] Estimat Glomerular Filtration Rate May 26, 2024 5:32am 17 Below low normal >59 > OR = 60 ml/min/1.73 square metersThe MDRD formula used to calculate the eGFR result has not been validated in patients > 70 years of age. [facility] [id number] [address] [place] [address] Estimat Glomerular Filtration Rate July 03, 2024 3:19pm 20 Below low normal >59 > OR = 60 ml/min/1.73 square metersThe MDRD formula used to calculate the eGFR result has not been validated in patients > 70 years of age. [facility] [id number] [address] [place] [address] Estimat Glomerular Filtration Rate September 11, 2024 12:03pm 18 Below low normal >59 > OR = 60 ml/min/1.73 square metersThe MDRD formula used to calculate the eGFR result has not been validated in patients > 70 years of age. [facility] [id number] [address] [place] [address] Estimated Creatinine Clearance Calc May 10, 2024 3:53pm 15 mL/min For use in prescription drug dose determination only. Reference ranges have not been establishe for this calculation. [facility] [id number] [address] [place] [address] 21630 Estimated Creatinine Clearance Calc May 21, 2024 7:49am Not Reportable [facility] [id number] [address] [place] [address] 19993 Estimated Creatinine Clearance Calc May 26, 2024 5:32am 19 mL/min For use in prescription drug dose determination only. Reference ranges have not been establishe for this calculation. [facility] [id number] [address] [place] [address] 95566 Estimated Creatinine Clearance Calc July 03, 2024 3:19pm 21 mL/min For use in prescription drug dose determination only. Reference ranges have not been establishe for this calculation. [facility] [id number] [address] [address] Estimated Creatinine Clearance Calc September 11, 2024 12:03pm Not Reportable [facility] [id number] [facility] [address] [address] Glucose Level May 10, 2024 3:53pm 259 mg/dL Above high normal 65-110 [facility] [id number] [address] [place] [address] 18379 Glucose Level May 21, 2024 7:49am 130 mg/dL Above high normal 65-110 [facility] [id number] [address] [place] [address] 11483 Glucose Level May 26, 2024 5:32am 109 mg/dL 65-110 [facility] [id number] [address] [place] [address] 67763 Glucose Level July 03, 2024 3:19pm 170 mg/dL Above high normal 65-110 [facility] [id number] [address] [place] [address] 96823 Glucose Level September 11, 2024 12:03pm 131 mg/dL Above high normal 65-110 [facility] [id number] [address] [place] [address] 81748 POC Capillary Glucose May 26, 2024 10:40am 239 mg/dL Above high normal 65-105 [facility] POC Hemoglobin A1c May 21, 2024 7:49am 7.4 % Above high normal <5.7 <5.7: Decreased risk of diabetes 5.7-6.0: Increased risk of diabetes 6.1-6.4: Higher risk of diabetes> or = 6.5: Consistent with diabetes [facility] [id number] [address] [place] [address] 89607 Lactic Acid Level May 23, 2024 3:13pm 0.9 mmol/L 0.7-2.0 [facility] [id number] [address] [place] [address] 81195 Calcium Level May 10, 2024 3:53pm 8.4 mg/dL 8.4-10.2 [facility] [id number] [facility] [address] [address] Calcium Level May 21, 2024 7:49am 8.7 mg/dL 8.4-10.2 [facility] [id number] [facility] [address] [address] Calcium Level May 26, 2024 5:32am 7.7 mg/dL Below low normal 8.4-10.2 [facility] [id number] [address] [address] Calcium Level July 03, 2024 3:19pm 8.2 mg/dL Below low normal 8.4-10.2 [facility] [id number] [address] [place] [address] 97896 Calcium Level September 11, 2024 12:03pm 8.4 mg/dL 8.4-10.2 [facility] [id number] [address] [place] [address] 10793 Phosphorus Level May 21, 2024 7:49am 5.2 mg/dL Above high normal 2.5-4.5 [facility] [id number] [address] [place] [address] 38165 Phosphorus Level May 26, 2024 5:32am 4.3 mg/dL 2.5-4.5 [facility] [id number] [address] [place] [address] 18848 Phosphorus Level September 11, 2024 12:03pm 4.1 mg/dL 2.5-4.5 [facility] [id number] [address] [place] [address] 29870 Magnesium Level May 24, 2024 4:31am 2.1 mg/dL 1.6-2.3 [facility] [id number] [address] [place] [address] 47221 Total Bilirubin May 10, 2024 3:53pm 0.4 mg/dL 0.2-1.3 [facility] [id number] [address] [place] [address] 61779 Total Bilirubin May 21, 2024 7:49am 0.5 mg/dL 0.2-1.3 [facility] [id number] [address] [place] [address] 73524 Total Bilirubin May 23, 2024 3:13pm 0.6 mg/dL 0.2-1.3 [facility] [id number] [address] [place] [address] 87271 Total Bilirubin July 03, 2024 3:19pm 0.5 mg/dL 0.2-1.3 [facility] [id number] [address] [address] Total Bilirubin September 11, 2024 12:03pm 0.6 mg/dL 0.2-1.3 [facility] [id number] [address] [address] Aspartate Amino Transf (AST/SGOT) May 10, 2024 3:53pm 25 U/L 14-36 [facility] [id number] [address] [address] Aspartate Amino Transf (AST/SGOT) May 21, 2024 7:49am 25 U/L 14-36 [facility] [id number] [address] [address] Aspartate Amino Transf (AST/SGOT) May 23, 2024 3:13pm 25 U/L 14-36 [facility] [id number] [address] [address] Aspartate Amino Transf (AST/SGOT) July 03, 2024 3:19pm 29 U/L 14-36 [facility] [id number] [address] [address] Aspartate Amino Transf (AST/SGOT) September 11, 2024 12:03pm 31 U/L 14-36 [facility] [id number] [address] [address] Alanine Aminotransfer ase (ALT/SGPT) May 10, 2024 3:53pm 16 U/L 6-35 [facility] [id number] [address] [address] Alanine Aminotransfer ase (ALT/SGPT) May 21, 2024 7:49am 14 U/L 6-35 [facility] [id number] [address] [address] Alanine Aminotransfer ase (ALT/SGPT) May 23, 2024 3:13pm 14 U/L 6-35 [facility] [id number] [address] [address] Alanine Aminotransfer ase (ALT/SGPT) July 03, 2024 3:19pm 16 U/L 6-35 [facility] [id number] [address] [address] Alanine Aminotransfer ase (ALT/SGPT) September 11, 2024 12:03pm 15 U/L 6-35 [facility] [id number] [address] [address] Total Creatine Kinase May 24, 2024 4:31am 57 U/L 30-135 [facility] [id number] [address] [place] [address] 23566 Troponin I May 10, 2024 6:58pm 0.018 ng/mL 0.000-0.03 4 Acute myocardial injury is indicated by:1. A troponin value of >0.034 ng/mL and/or2. A 20% change in troponin value.Specimens with biotin concentrations up to 2.5 ng/mL demonstrate a less than or equal to 10% change in results. Biotin concentrations greater than this falsely decrease Troponin results for patient samples. [facility] [id number] [address] [place] [address] 31073 OC-Ydy-X-Type Natriuretic Peptide May 10, 2024 3:53pm 2360 pg/mL Above high normal 19.9-100 Reference Range:Normal, Heart Failure unlikely: </= 300 pg/mlHigh Probablility of Heart Failure: <50 Years >/= 450 pg/ml 50-75 Years >/= 900 pg/ml >75 Years >/= 1800 pg/ml [facility] [id number] [address] [place] [address]45 HS-Zov-L-Type Natriuretic Peptide July 03, 2024 3:19pm 3330 pg/mL Above high normal 19.9-100 Reference Range:Normal, Heart Failure unlikely: </= 300 pg/mlHigh Probablility of Heart Failure: <50 Years >/= 450 pg/ml 50-75 Years >/= 900 pg/ml >75 Years >/= 1800 pg/ml [facility] [id number] [address] [place] [address] 64404 Total Protein May 10, 2024 3:53pm 6.0 g/dL Below low normal 6.3-8.2 [facility] [id number] [address] [place] [address] 09992 Total Protein May 21, 2024 7:49am 7.0 g/dL 6.3-8.2 [facility] [id number] [address] [place] [address] 01041 Total Protein May 23, 2024 3:13pm 7.0 g/dL 6.3-8.2 [facility] [id number] [address] [place] [address] 91906 Total Protein July 03, 2024 3:19pm 6.0 g/dL Below low normal 6.3-8.2 [facility] [id number] [address] [address] Total Protein September 11, 2024 12:03pm 7.0 g/dL 6.3-8.2 [facility] [id number] [address] [place] [address] 36224 Albumin May 10, 2024 3:53pm 3.5 g/dL 3.5-5.1 [facility] [id number] [address] [place] [address] 87461 Albumin May 21, 2024 7:49am 3.8 g/dL 3.5-5.1 [facility] [id number] [address] [place] [address] 43836 Albumin May 26, 2024 5:32am 2.9 g/dL Below low normal 3.5-5.1 [facility] [id number] [address] [place] [address] 85944 Albumin July 03, 2024 3:19pm 3.1 g/dL Below low normal 3.5-5.1 [facility] [id number] [address] [place] [address] 31161 Albumin September 11, 2024 12:03pm 3.3 g/dL Below low normal 3.5-5.1 [facility] [id number] [address] [place] [address] 81948 Triglycerides Level July 11, 2024 10:33am 125 mg/dL <150 [facility] [id number] [address] [place] [address] 58050 Cholesterol Level July 11, 2024 10:33am 147 mg/dL 0-200 [facility] [id number] [address] [place] [address] 70937 LDL Cholesterol Direct July 11, 2024 10:33am 49 mg/dL <130 mg/dl [id number] 9 mg/dl Borderline High Risk >160 mg/dl High Risk [facility] [id number] [address] [place] [address] 53545 HDL Cholesterol Direct July 11, 2024 10:33am 62 mg/dL Expected Range > 35 mg/dl [facility] [id number] [address] [place] [address] 12446 Alkaline Phosphatase May 10, 2024 3:53pm 71 U/L 38-126 [facility] [id number] [address] [address] Alkaline Phosphatase May 21, 2024 7:49am 56 U/L 38-126 [facility] [id number] [address] [address] Alkaline Phosphatase May 23, 2024 3:13pm 59 U/L 38-126 [facility] [id number] [address] [address] Alkaline Phosphatase July 03, 2024 3:19pm 69 U/L 38-126 [facility] [id number] [address] [address] Alkaline Phosphatase September 11, 2024 12:03pm 59 U/L 38-126 [facility] [id number] [address] [place] [address] 7[address]23 Lipase May 10, 2024 3:53pm 118 U/L 23-300 [facility] [id number] [address] [place] [address] 06675 Vitamin D 25-Hydroxy May 21, 2024 7:49am 51.2 ng/mL Reference Range:<20 ng/mL Nuqqjhmjr60-29. 9 ng/mL Pirmkzwsblgf69- 100 ng/mL Sufficient>100 ng/mL Potential Toxicity [facility] [id number] [address] [address] Vitamin D 25-Hydroxy September 11, 2024 12:03pm 38.4 ng/mL Reference Range:<20 ng/mL Ubwuhyoni31-25. 9 ng/mL Cwdibopewyoq34- 100 ng/mL Sufficient>100 ng/mL Potential Toxicity [facility] [id number] [address] [address] Thyroid Stimulating Hormone (TSH) September 11, 2024 12:03pm 2.620 [iU]/mL 0.465-4.68 0 [facility] [id number] [address] [address] Thyroid Stimulating Hormone (Reflex May 24, 2024 4:31am 2.870 [iU]/mL 0.465-4.68 [facility] [id number] [address] [place] [address] Free Thyroxine September 11, 2024 12:03pm 1.93 ng/mL 0.78-2.19 [facility] [id number] [address] [place] [address] 20252 Total Triiodothyron ine September 11, 2024 12:03pm 0.68 ng/mL Below low normal 0.97-1.69 [facility] [id number] [address] [place] [address] Parathyroid Hormone (Intact) May 21, 2024 7:49am 126.9 pg/mL Above high normal 7.5-53.5 [facility] [id number] [address] [place] [address] Parathyroid Hormone (Intact) September 11, 2024 12:03pm 129.6 pg/mL Above high normal 14.5-75.2 [facility] [id number] [address] [place] [address] Random Cortisol May 24, 2024 4:31am 6.84 ug/dL Reference Range:Before 10 AM 4.46-22.7 ug/dl After 5 PM 1.7-14.1 ug/dl [facility] [id number] [address] [place] [address] SARS-CoV-2 RNA (RT-PCR) May 10, 2024 5:05pm Negative Negative This assay is designed to detect the RdRp and N genes of SARS-CoV-2 using nucleic acid amplification. A negative result does not preclude the possibility of 2019-nCoV infection since the adequacy of sample collection and/or low viral burden may result in the presence of viral nucleic acids levels below the analytical sensitivity of this test method. Positive results are indicative of the presence of SARS-CoV-2 RNA and do not rule out bacterial infection or co-infection with other viruses. Test results should be used along with other clinical observations, patient history, epidemiological information and laboratory data in making the diagnosis.This test has received FDA Emergency Use Authorization and has been verified by [facility]. This test is only authorized for the duration of the declaration and the circumstances that exist to justify the authorization of the emergency use of in vitro diagnostic tests for the detection of SARS-CoV-2 virus and/or diagnosis of COVID-19 infection under section 564(b)(1) of the Act. 11 U.S.C. 360bbb-3(b)(1), unless the authorization is terminated or revoked sooner.[facility] is certified under CLIA-88 as qualified to perform high complexity testing. This testing was performed in the [facility] [place] [address] (CLIA License #[id number], CAP #[id number], AU-ID # [id number]).Facts eet for healthcare providers: https://www.fda .gov/media/615 56/downloadFact sheet for patients: https://www.fda .gov/media/136 57/download [facility] [id number] [address] [place] [address] SARS-CoV-2 RNA (RT-PCR) May 23, 2024 3:16pm Negative Negative This assay is designed to detect the RdRp and N genes of SARS-CoV-2 using nucleic acid amplification. A negative result does not preclude the possibility of 2019-nCoV infection since the adequacy of sample collection and/or low viral burden may result in the presence of viral nucleic acids levels below the analytical sensitivity of this test method. Positive results are indicative of the presence of SARS-CoV-2 RNA and do not rule out bacterial infection or co-infection with other viruses. Test results should be used along with other clinical observations, patient history, epidemiological information and laboratory data in making the diagnosis.This test has received FDA Emergency Use Authorization and has been verified by [facility]. This test is only authorized for the duration of the declaration and the circumstances that exist to justify the authorization of the emergency use of in vitro diagnostic tests for the detection of SARS-CoV-2 virus and/or diagnosis of COVID-19 infection under section 564(b)(1) of the Act. 11 U.S.C. 360bbb-3(b)(1), unless the authorization is terminated or revoked sooner.[facility] is certified under CLIA-88 as qualified to perform high complexity testing. This testing was performed in the [facility] [place] [address] (CLIA License #[id number], CAP #[id number], AU-ID # [id number]).Factsh eet for healthcare providers: https://www.fda .gov/media/136 56/downloadFact sheet for patients: https://www.fda .gov/media/136 57/download [facility] [id number] [address] [place] [address] Influenza Type B (RT-PCR) May 10, 2024 5:05pm Negative Negative The test is performed on the [employer] GeneXpert Dx System and utilized automated real-time polymerase chain reaction (PCR) to detect presence of the Influenza A and/or Influenza B virus. Positive results are indicative of the presence of the identified virus but cannot rule out bacterial infection or co-infection with other pathogens not detected by the test. Negative should not be used as the sole basis for treatment or other patient management decisions. Negative results must be combined with clinical observations, patient history, and/or epidemiological information. [facility] [id number] [address] [place], [place] [address] Influenza Type B (RT-PCR) May 23, 2024 3:16pm Negative Negative The test is performed on the [employer] D[employer] System and utilized automated real-time polymerase chain reaction (PCR) to detect presence of the Influenza A and/or Influenza B virus. Positive results are indicative of the presence of the identified virus but cannot rule out bacterial infection or co-infection with other pathogens not detected by the test. Negative should not be used as the sole basis for treatment or other patient management decisions. Negative results must be combined with clinical observations, patient history, and/or epidemiological information. [facility] [id number] [address] [place] [address] Influenza Type A (RT-PCR) May 10, 2024 5:05pm Negative Negative The test is performed on the [employer] D[employer] System and utilized automated real-time polymerase chain reaction (PCR) to detect presence of the Influenza A and/or Influenza B virus. Positive results are indicative of the presence of the identified virus but cannot rule out bacterial infection or co-infection with other pathogens not detected by the test. Negative should not be used as the sole basis for treatment or other patient management decisions. Negative results must be combined with clinical observations, patient history, and/or epidemiological information. [facility] [id number] [address] [place] [address] Influenza Type A (RT-PCR) May 23, 2024 3:16pm Negative Negative The test is performed on the [employer] System and utilized automated real-time polymerase chain reaction (PCR) to detect presence of the Influenza A and/or Influenza B virus. Positive results are indicative of the presence of the identified virus but cannot rule out bacterial infection or co-infection with other pathogens not detected by the test. Negative should not be used as the sole basis for treatment or other patient management decisions. Negative results must be combined with clinical observations, patient history, and/or epidemiological information. [facility] [id number] [address] [place] [address] Respiratory Syncytial Virus (RT-PCR May 10, 2024 5:05pm Negative Negative The test is performed on the [employer] Gene[employer] D[employer] System and utilized automated real-time polymerase chain reaction (PCR) to detect presence of the RSV virus. Positive results are indicative of the presence of the identified virus but cannot rule out bacterial infection or co-infection with other pathogens not detected by the test. Negative results should not be used as the sole basis for treatment or other patient management decisions. Negative results must be combined with clinical observations, patient history, and/or epidemiological information. [facility] [id number] [address] [place], [place] [address] Respiratory Syncytial Virus (RT-PCR May 23, 2024 3:16pm Negative Negative The test is performed on the [employer] D[employer] System and utilized automated real-time polymerase chain reaction (PCR) to detect presence of the RSV virus. Positive results are indicative of the presence of the identified virus but cannot rule out bacterial infection or co-infection with other pathogens not detected by the test. Negative results should not be used as the sole basis for treatment or other patient management decisions. Negative results must be combined with clinical observations, patient history, and/or epidemiological information. [facility] [id number] [address] [place] [address] Urine Casts May 10, 2024 4:55pm 3-5 [facility] [id number] [address] [place] [address] 70477 Urine Casts May 23, 2024 3:17pm - [facility] [id number] [address] [place] [address] 52574 Add Urine Microanalysis May 23, 2024 3:17pm Reviewed [facility] [id number] [address] [place] [address]134 Microbiology Results Procedure Source Result Collection Date/Time Result Date/Time Result Comment Performing Site Blood Culture Blood May 23, 2024 5:44pm May 29, 2024 2:34am [facility] Urine Clean Catch May 10, 2024 5:55pm May 12, 2024 6:19pm [facility] Urine Catheterized May 23, 2024 4:17pm May 24, 2024 10:58pm [facility] Imaging Reports Author [facility] Report Date/Time September 27, 2024 11:[address] [place] [address] [address] [place] [address] XRay Report Signed Patient: Sarah Alvarado : 1945 MR#: [id number] Age: 79 Acct:[id number] Loc: [facility] ADM Date: 09/27/[address]: Ordering Physician: Hilda Joel APRN Date of Service: 09/27/24 Procedure(s): XR knee RT min 4V; XR tibia fibula RT 2V Accession Number(s): [id number]; [id number] cc: Oh Goode MD; Hilda Joel APRN~ EXAMINATION: XR knee RT min 4V, XR tibia fibula RT 2V DATE: 09/27/2024 10:58 INDICATION: Right lower limb injury post fall TECHNIQUE: 1. Anteroposterior, 2 oblique and crosstable lateral views of the right knee were obtained 2. AP and lateral views of the right lower leg were obtained. COMPARISON: None. FINDINGS: Alignment is normal at the right knee, ankle and visualized hind foot. No fracture. Tricompartmental osteoarthritis at the right knee with moderate-sized marginal osteophytes in all 3 compartments. There is at least mild joint space narrowing at the medial and lateral compartment although this could be underestimated on nonweightbearing imaging. Prominent loose osteochondral bodiesat the anterior and posterior recesses of the knee but no knee joint effusion. Mild to moderate osteoarthritis at the naviculocuneiform articulations and mild osteoarthritis at the ankle, subtalar and talonavicular joints. Moderate-sized Achilles and plantar calcaneal spurs. Focal prominent soft tissue swelling with increased density to the subcutaneous fat anterior to the proximal right tibia which given the history of trauma most likely represents a hematoma. IMPRESSION: 1. Likely subcutaneous hematoma anterior to the proximal right tibia. 2. Degenerative skeletal changes as detailed above but no acute osseous abnormality of the right lower leg from the knee through the midfoot. Reviewed, dictated and finalized at location B. RENTAL DELIVERER Dictated By: Jerzy Almazan MD 09/27/24 1110 Signed By: <Electronically signed by Jerzy Almazan MD in OV> 09/27/24 1116 Author [facility] Report Date/Time September 27, 2024 11:18[facility] [address] [place] [address] XRay Report Signed Patient: Sarah Alvarado : 1945 MR#: [id number] Age: 79 Acct:[id number] Loc: [facility] ADM Date: 09/27/[address]: Ordering Physician: Hilda Joel APRN Date of Service: 09/27/24 Procedure(s): XR hip RT min 2V Accession Number(s): [id number] cc: Oh Goode MD; Hilda Joel APRN~ EXAMINATION: XR hip RT min 2V DATE: 09/27/2024 10:58 INDICATION: Right hip pain post fall TECHNIQUE: Anteroposterior and frog-leg lateral views of the right hip were obtained. COMPARISON: None. FINDINGS: Normal alignment in the visualized right hemipelvis. No fracture. Mild right hipand sacroiliac osteoarthritis. Severe lumbar spondylosis. Soft tissues are unremarkable. IMPRESSION: 1. Severe lumbar spondylosis. No acute osseous abnormality. Reviewed, dictated and finalized at location B. RENTAL DELIVERER Dictated By: Jerzy Almazan MD 09/27/24 1115 Signed By: <Electronically signed by Jerzy Almazan MD in OV> 09/27/24 1118 Author [facility] Report Date/Time September 27, 2024 11:21am [facility] [address] [place] [address] XRay Report Signed Patient: Sarah Alvarado : 1945 MR#: [id number] Age: 79 Acct:[id number] Loc: [facility] ADM Date: 09/27/[address]: Ordering Physician: Hilda Joel APRN Date of Service: 09/27/24 Procedure(s): XR ankle RT min 3V Accession Number(s): [id number] cc: Oh Goode MD; Hilda Joel APRN~ EXAMINATION: XR ankle RT min 3V DATE: 09/27/2024 10:58 INDICATION: Right lower limb injury post fall TECHNIQUE: Anteroposterior, oblique, mortise, and lateral views of the right ankle were obtained. COMPARISON: None. FINDINGS: Bone alignment is normal. Corticated ossicles along the inferior margin of the medial malleolus likely sequela of chronic deltoid ligament sprain. No acute fracture. Polyarticular osteoarthritis, moderate severity at the naviculocuneiform and second tarsal metatarsal joints and mild at the right ankle and remaining joints at the mid and hindfoot. Moderate-sized Achilles and plantar calcaneal spurs. Soft tissues are unremarkable with no ankle joint effusion. IMPRESSION: 1. 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 No acute osseous abnormality. 2. Heterotopic ossicles along the disc margin of the medial malleolus likely sequela of chronic deltoid ligament sprain. Reviewed, dictated and finalized at location B. RENTAL DELIVERER Dictated By: Jerzy Almazan MD 09/27/24 1119 Signed By: <Electronically signed by Jerzy Almazan MD in OV> 09/27/24 1121 Author [facility] Report Date/Time September 27, 2024 11:30[facility] [address] [place] [address] XRay Report Signed Patient: Sarah Alvarado : 1945 MR#: [id number] Age: 79 Acct:[id number] Loc: [facility] ADM Date: 09/27/[address]: Ordering Physician: Hilda Joel APRN Date of Service: 09/27/24 Procedure(s): XR wrist RT min 3V Accession Number(s): [id number] cc: Oh Goode MD; Hilda Joel APRN~ EXAMINATION: XR wrist RT min 3V DATE: 09/27/2024 10:58 INDICATION: Right wrist injury post fall TECHNIQUE: Posteroanterior, ulnar deviation, oblique, and lateral views of the right wrist were obtained. COMPARISON: none FINDINGS: Diffuse osteopenia. Bone alignment is normal. No fracture. Moderate to severe osteoarthritis at the first carpometacarpal joint. Additional mild osteoarthritis at the wrist, midcarpal, triscaphe and second carpal metacarpal joints. IMPRESSION: 1. No acute osseous abnormality. 2. Polyarticular osteoarthritis, moderate to severe at the first carpometacarpaljoint and otherwise mild. Reviewed, dictated and finalized at location B. RENTAL DELIVERER Dictated By: Jerzy Almazan MD 09/27/24 1129 Signed By: <Electronically signed by Jerzy Almazan MD in OV> 09/27/24 1130 Vital Signs Vital Reading Result Reference Range Collection Date/Time Height 64 [in_i] April 12, 2024 12:43pm Weight 92.53 kg April 12, 2024 12:43pm Body Temperature 98.1 [degF] 97.6-99.6 April 12, 2 024 12:43pm Heart Rate 61 /min 60-100 April 12, 2024 12:43pm Respiratory rate 16 /min 12-April 12, 2 024 12:43pm Oxygen saturation by Pulse oximetry 93 % 90-100 April 12, 2024 12:43 pm BP Systolic 110 mm[Hg] 100-140 April 12, 2024 12:43pm BP Diastolic 50 mm[Hg] 60-90 April 12, 2024 12:43pm BMI (Body Mass Index) 35.0 kg/m2 April 122023 12:43pm Height 66 [in_i] May 10, 2024 3:42pm Weight 90.60 kg May 10, 2024 3:42pm Body Temperature 98.3 [degF] 97.6-99.6 May 10, 2 024 3:52pm Heart Rate 76 /min 60-100 May 10, 2024 8:00pm Respiratory rate 15 /min 10-26May 10, 2 024 8:00pm Oxygen saturation by Pulse oximetry 96 % 90-100 May 10, 2024 8:00p m BP Systolic 121 mm[Hg] 100-140 May 10, 2024 8:00pm BP Diastolic 60 mm[Hg] 60-90 May 10, 2024 8:00pm Height 64 [in_i] May 23, 2024 1:42pm Weight 91.73 kg May 23, 2024 1:42pm Body Temperature 97.2 [degF] 97.6-99.6 May 23, 2024 1:42pm Heart Rate 64 /min 60-100 May 23, 2024 1:42pm Oxygen saturation by Pulse oximetry 97 % 90-100 May 23, 2024 1:42 pm BP Systolic 76 mm[Hg] 100-140 May 23, 2024 1:42pm BP Diastolic 50 mm[Hg] 60-90 May 23, 2024 1:42pm BMI (Body Mass Index) 34.7 kg/m2 May 072023 1:42pm Height 66 [in_i] May 23, 2024 7:31pm Weight 98.80 kg May 26, 2024 3:57am Body Temperature 97.8 [degF] 97.6-99.6 May 26, 2024 3:57am Heart Rate 64 /min 60-100 May 26, 2024 7:15am Respiratory rate 20 /min -May 26, 2024 7:08am Oxygen saturation by Pulse oximetry 98 % 90-100 May 26, 2024 7:08 am BP Systolic 102 mm[Hg] 100-140 May 26, 2024 7:03am BP Diastolic 79 mm[Hg] 60-90 May 26, 2024 7:03am BMI (Body Mass Index) 32.0 kg/m2 May 072023 7:31pm Inhaled oxygen concentration 21 % May 26, 2024 7:08am Height 66 [in_i] June 04, 2024 9:39am Weight 96.36 kg June 04, 2024 9:39am Heart Rate 66 /min 60-100 June 04, 2024 9:39am Respiratory rate 16 /min 12-June 04, 2024 9:39am Oxygen saturation by Pulse oximetry 96 % 90-100 June 04, 2024 9:39 am BP Systolic 144 mm[Hg] 100-140 June 04, 2024 9:39am BP Diastolic 80 mm[Hg] 60-90 June 04, 2024 9:39am BMI (Body Mass Index) 34.2 kg/m2 May 082023 9:39am Height 66 [in_i] July 03 3:00pm Weight 96.60 kg July 03 3:00pm Body Temperature 98.0 [degF] 97.6-99.6 June 3:00pm Heart Rate 62 /min 60-100 July 03 3:00pm Respiratory rate 19 /min -June 3:00pm Oxygen saturation by Pulse oximetry 97 % 90-100 July 03, 2024 3: 00pm BP Systolic 122 mm[Hg] 100-140 July 03 3:00pm BP Diastolic 98 mm[Hg] 60-90 July 03 3:00pm Weight 97.90 kg September 27, 2024 9:27am Body Temperature 97.9 [degF] 97.6-99.6 September 272023 9:27am Heart Rate 62 /min 60-100 September 27, 2024 12:21pm Respiratory rate 13 /min -September 272023 12:21pm Oxygen saturation by Pulse oximetry 97 % 90-100 September 27, 2024 12:21pm BP Systolic 167 mm[Hg] 100-140 September 27, 2024 12:21pm BP Diastolic 88 mm[Hg] 60-90 September 27, 2024 12:21pm Advance Directives Advance Directive Response Recorded Date/ Time Current Advance Directive No May 072023 7:09pm Insurance Providers Guarantor Sarah Alvarado Address [address] [place] [phone] Contact Info. Home Phone: Payer Policy Id Coverage Id Subscriber's Name Subscriber Id Effective Date Expiration Date [facility] [id number] Sarah Alvarado [id number] 2013 [place] [id number] Sarah Morales Garcíaen [id number] [facility] [id number] Sarah Morales Christiano [id number] [place] Spend[place] [id number] Sarah Alvarado [id number] Medicare Parts A & B [id number] Sarah Alvarado [id number] Self Pay Self N/A [facility] [id number] Sarah Alvarado [id number] Encounters Encounter Location(s) Arrival/Admit Date Discharge/Depart Date Provider(s) Departed Physician/Provi steve Office Visit [facility] April 12, 2024 12:26pm April 12, 2024 1:16pm Swapnil Adorno MD Departed Emergency [facility] Emergency Department May 10, 2024 3:38pm May 10, 2024 8:00pm Departed Clinical [facility] Laboratory May 21, 2024 7:15am May 21, 2024 7:16am Jayy Carrillo MD Departed Physician/Provi steve Office Visit [facility]Neph[facility] May 23, 2024 1:40pm May 23, 2024 2:16pm Jayy Carrillo MD Discharged Inpatient [facility] 3 Medical May 23, 2024 5:31pm May 26, 2024 2:00pm Beth Goel MD Departed Physician/Provi steve Office Visit [facility]Card[facility] June 04, 2024 9:23am June 04, 2024 10:00am Chau Vega DO Depart Emergency [facility] Emergency Department July 03, 2024 2:33pm July 03, 2024 7:09pm Departed [facility] Laboratory July 11, 2024 10:22am July 11, 2024 10:23am [facility] September 11, 2024 11:37am September 11, 2024 11:38am Jayy Carrillo MD Departed Emergency [facility] Emergency Department September 27, 2024 9:30am September 27, 2024 12:31pm Recent Diagnosis Onset Date Admit Date Dyspnea on exertion Unknown April 12 1:26pm Obesity Unknown April 12, 2024 1 :26pm Pneumonia due to COVID-19 virus Unknown April 12, 2024 1:26pm Obstructive Sleep Apnea-Hypopnea Syndrome Unknow n April 12, 2024 1:26pm Acute kidney injury superimp osed on chronic kidney disease Unknown May 23, 2024 2:40pm Secondary hyperparathyroidis m, not elsewhere classified Unknown May 23, 2024 2:40pm Chronic kidney disease, stage IV (severe) Unknow n May 23, 2024 2:40pm Stage 3b chronic kidney disease Unknown May 23, 2024 2:40pm Acute kidney injury superimp osed on chronic kidney disease Unknown May 23, 2024 6:31pm Acute on chronic kidney failure Unknown May 23, 2024 6:31pm Acute UTI Unknown May 23, 2024 6:31pm LIV (acute kidney injury) Unknown May 072023 6:31pm Anemia of chronic disease Unknown May 072023 6:31pm Chronic anticoagulation Unknown May 6:31pm Congestive heart failure Unknown May 232023 6:31pm Fatigue Unknown May 23, 2024 6:31pm Hypotension Unknown May 23, 2024 6:31pm SUZANNE (obstructive sleep apnea) Unknown 2023 6:31pm Type 2 diabetes mellitus Unknown May 232023 6:31pm Chronic kidney disease, stage IV (severe) Unknow n May 23, 2024 6:31pm Chronic obstructive pulmonary disease Unknown May 23, 2024 6:31pm Diabetes Unknown May 23, 2024 6:31pm Essential hypertension Unknown May 6:31pm Obstructive sleep apnea on CPAP Unknown May 23, 2024 6:31pm Diastolic dysfunction Unknown June 04, 2024 10:23am Dyslipidemia Unknown June 04, 2024 10:23am Obesity Unknown June 04, 2024 10:23am PVT (paroxysmal ventricular tachycardia) Unknown June 04, 2024 10:23am Stage III chronic kidney disease Unknown June 04, 2024 10:23am Essential hypertension Unknown May 10:23am Paroxysmal atrial flutter Unknown May 082023 10:23am Functional Status Observation Response Date Recorded Functional capacity on discharge independent amb ulation May 26, 2024 11:49am Mental Status Observation Response Date Recorded oriented to person Yes April 12 10:53am oriented to place Yes April 12, 2024 10:53am oriented to time Yes April 12, 2024 10:53am oriented to person Yes June 04 5:30am oriented to place Yes June 04 5:30am oriented to time Yes June 04, 2024 5:30am Assessments Diagnosis Onset Date Resolution Status Admit Date Dyspnea on exertion acute April 12, 2024 1:26pm Obesity acute April 12, 2024 1:26pm Pneumonia due to COVID-19 virus acut e April 12, 2024 1:26pm Obstructive Sleep Apnea-Hypopnea Syndrome noneactive April 1:26pm Acute kidney injury superimposed on chronic kidney disease acute May 23, 2024 2:40pm Secondary hyperparathyroidis m, not elsewhere classified acute May 232023 2:40pm Chronic kidney disease, stag e IV (severe) chronic May 23, 2024 2:40pm Stage 3b chronic kidney disease micropaleontologist jake May 23, 2024 2:40pm Acute kidney injury superimposed on chronic kidney disease acute May 23, 2024 6:31pm Acute on chronic kidney failure acut e May 23, 2024 6:31pm Acute UTI acute May 23 6:31pm LIV (acute kidney injury) acute May 23, 2024 6:31pm Anemia of chronic disease acute May 23, 2024 6:31pm Chronic anticoagulation acute J obey 2023 6:31pm Congestive heart failure acute May 23, 2024 6:31pm Fatigue acute May 23 6:31pm Hypotension acute May 23 6:31pm SUZANNE (obstructive sleep apnea) acute May 23, 2024 6:31pm Type 2 diabetes mellitus acute May 23, 2024 6:31pm Chronic kidney disease, stag e IV (severe) chronic May 23, 2024 6:31pm Chronic obstructive pulmonar y disease chronic May 23, 2024 6:31pm Diabetes chronic May 23 6:31pm Essential hypertension chronic Ju ly 2023 6:31pm Obstructive sleep apnea on CPAP micropaleontologist jake May 23, 2024 6:31pm Diastolic dysfunction acute May 10:23am Dyslipidemia acute June 04, 024 10:23am Obesity acute June 04 10:23am PVT (paroxysmal ventricular tachycardia) acute June 04, 2024 10:23am Stage III chronic kidney disease acute June 04, 2024 10:23am Essential hypertension chronic Ju ly 2023 10:23am Paroxysmal atrial flutter chronic June 04, 2024 10:23am Plan of Treatment Author Swapnil Kyree [facility] Authored April 12, 2024 1:22p m On further questioning she s tates that her knee pain and back pain are her major limiting factors rather than her shortness of breath. She Gets severe back pain that leads to leg pain and knees that feel like they are going to buckle and then she has shortness of breath. The patient tells me she is going to see an orthopedic surgeon regarding her bilateral knee pain but has no follow-up for her back pain at this time. Recommend that the primary physician initiate workup for this back pain. Regarding her pulmonary issues: She is a never smoker but was been has been exposed to secondhand smoke. She does have mild centrilobular emphysema on her CT scan 07/22/2021 and PFTs in 02/02/2022 demonstrated normal spirometry without obstruction and no bronchodilator response. Lung volumes were normal. The diffusing capacity was moderately decreased and normalized when adjusted for alveolar volume. Accordingly she does not have COPD. Home O2 assessment on 02/02/2022 demonstrated rest room air saturations 95% and with exercise saturations 93%. Patient does not have COPD or exertional hypoxia. She has anemia (Hg 10.3 on 01/20/22) but SWEET seems out of proportion to this level of anemia. Patient had a blood gas on 07/25/2021 on 2 L nasal with pH of 7.32/41/83. Patient had a serum bicarbonate of 29 on 12/22/2021 so there is no evidence of hypercarbic respiratory failure. Since she does not clearly have COPD she is on no standing inhalers and said that she actually felt better after discontinuing her Symbicort on 02/18/2022. she does take p.r.n. albuterol and I have told her to see if she could go without this to determine if there is any benefit from it. Regarding pulmonary hypertension, she had an echo on 07/24/2021 with an EF of 55-60% grade 1 diastolic dysfunction moderately enlarged left atrium, trace tricuspid regurg, normal RV systolic function and size, normal right atrial size. RVSP was not calculated due to an inadequate TR jet. An echo in 05/05/2018 listed her RVSP is 31. She does have untreated sleep apnea and has been set up with BiPAP But is noncompliant due to machine and mask issues. Regarding her post COVID I repeated CT scan on 03/11/2022 and there is no post COVID interstitial lung disease or organizing pneumonia. Since she does not clearly have COPD she is on no standing inhalers and said that she actually felt better after discontinuing her Symbicort on 02/18/2022. she does take p.r.n. albuterol and I have told her to see if she could go without this to determine if there is any benefit from it. she is currently not smoking I exposed to any secondhand smoke. 01/04/23: Reports she tried going without her albuterol but feels more short of breath dyspnea on exertion main the explained by her chronic back, hip and knee pain. She is using motorized wheelchair. Denies coughing or wheezing. Weight loss was recommended. Exercise 30 minutes a day as tolerated, deep breathing exercises. Vaccines were recommended. 09/30/23: High-resolution CT scan showed patchy airspace opacities in the upper lobes with mild dependent atelectasis and small pleural effusions. 1/25/24: Patient has back and knee pain that cause her to than lose her breath. She is ambulating room to room with a walker and this is unchanged over the last 6 months. She does use short-acting beta agonists 1 time a day when she is at activity and she says this helps clear her throat. Plan: Patient has dyspnea on exertion is stable. She intermittently uses short- acting beta agonist and she can continue to do this. Her back and knee pain are the most limiting issues for her. 04/12/2024: The patient's activity level is the same. She is limited by back pain at 1/2 block. When she walks she gets pain and this causes shortness of breath. She does use rescue albuterol 3 times a week with some benefit but she has no reactive airways disease or COPD. Plan: I have encouraged the patient to increase her activity as tolerated. The patient states she requires an operation for her back pain but she is too medically unstable to do this. The patient has lost 5 lb and I have encouraged weight loss. The patient is up-to-date on her influenza vaccine and I have encouraged her to get a COVID booster and the RSV vaccine. Follow-up in 6 months She had a history of SUZANNE but 4 years ago lost her machine, she had an Millwood score of 23. I ordered a split night sleep study. 01/25/2022 patient had a split night polysomnogram, dictated results on 02/02/2022 demonstrating AHI of 68.1 and no optimal pressure was found up to CPAP 19. I ordered CPAP titration on 02/03/2022. patient had her BiPAP titration on 02/17/2022 and her optimal pressure is 21/17. The patient is unable to tolerate the mask and machine. She says she does not understand how to use the machine and that the mask does not fit properly and she has a lot of leak. Please have [employer] re-educated the patient regarding use of the machine and refit the patient for mask. After this refit obtain a download in 2 weeks. I also told the patient to call us if she is still having large leak after they refit her as her pressures are high and we may need to lower her pressures in order to get her to wear something. she also had a significant number of limb movements and a ferritin On 06/22/2022 was 29 and I started ferrous fumarate 324 p.o. b.i.d.. The patient says she has clinically improved and I will reorder another ferritin. TSH 2.35 on 02/23/2021. 01/04/2023: Today she tells me she is not using BiPAP. The times she tried attempting BiPAP she had trouble with mouth dryness and her tongue sticking to the roof of her mouth. She states she also does not know how to clean it. States she is sleeping well, getting about 6 hr of sleep per night. Occasional morning nausea. Denies nocturia. She feels tired through the day. Typically takes at least one daytime nap. Denies nocturnal awakenings with SOB or cough. Plan: ? ? Contact DME to send staff out to instruct patient how to use the BiPAP, how to put mask on, help adjust humidity settings if needed.??She is on card and I can't make any adjustments to her settings remotely. ? ? In the next few weeks she will be moving from [facility] to her daughter's house, which may help with compliance. Patient states [facility] staff can't or don't help her much with BiPAP equipment. 12/01/23: ??Our staff spoke with the patient who is now living with her daughter and her BiPAP is packed away and not being used. Her Millwood score is 4. She is not taking naps during the day. Plan: The great granddaughter is in the room today and says that she was trained at [facility] side use the machine and she will go home today and attempt to find the machine and initiate treatment tonight. I told them to call me if there are any issues with the mask or machine. Our staff called the patient when performing chart prep for this visit and the patient stated she has not used the CPAP for over year. 04/12/24: Patient again tells me she has recently got her BiPAP machine out and says that she will start using this. I have encouraged this. Plan: I told the patient to call us to give her DME companies name as well as to tell us if she has all the parts to her BiPAP machine. Please call patient in 1 week to verify that she has a DME company and that her machine is functioning. 04/12/2024: Weight is 204 representing a 5 lb weight loss since last visit. I have encouraged her to continue to lose weight. 03/27/2024 14:30 207 lbs., 2 oz. 03/21/2024 15:09 209 lbs., 0 oz. 12/06/2023 15:13 209 lbs., 0 oz. 12/01/2023 13:56 209 lbs., 0 oz. Patient's weight today is 209 lb. This represents a 13 lb weight loss since 11/09/2023. 11/09/2023 14:46 224 lbs., 1 oz. 07/26/2023 15:23 240 lbs., 0 oz. 06/09/2023 15:09 232 lbs., 0 oz. 05/26/2023 14:02 234 lbs., 0 oz. 04/26/2023 15:08 240 lbs., 0 oz. 03/15/2023 11:54 244 lbs., 9 oz. 01/18/2023 09:55 239 lbs., 0 oz. 01/04/2023 10:01 239 lbs., 0 oz. 10/26/2022 11:35 254 lbs., 8 oz. 08/31/2022 09:09 246 lbs., 1 oz. 06/29/2022 10:58 240 lbs., 0 oz. TSH 2.35 on 02/23/2021.?? Patient had a history of COVID and 05/27/2021 and her most recent CT scan on 07/22/2021 demonstrated small regions of consolidations posteriorly small centrilobular nodules and ground-glass opacities with a tree-in-bud pattern. Regarding her post COVID, I repeated CT scan on 03/11/2022 and there is no post COVID interstitial lung disease or organizing pneumonia. Improving infiltrates since 07/23/2021. No specific treatment at this time. 12/01/23: I have encouraged the patient to receive the new COVID booster and she has tells me she will do this. Patient also tells me she will receive the RSV vaccine. 04/12/2024: I have again recommended the patient to get the new COVID booster again. Author Jayy [facility] Authored May 23, 2024 3:03 pm Recent Labs: 07/30/22 Cr 2.5, gfr 19, HB 9.7 10/13/23 Hb 10.5, Cr 2.4, gfr 21, 02/17/24 Hb 8.1, Cr 3, gfr 15, Co2 21, 05/10/24 gfr 14, UA pos wbcs, UCx mixed yoni 05/21/24 Hb 10.3, Cr 3.7, gfr 12, A1C 7.4, PTH 127, vit d 51, UPro 324 Component Value Date BUN 30 (H) 09/01/2021 CREATININE 1.44 (H) 09/01/2021 CREATININE 1.63 (H) 04/22/2021 CREATININE 1.79 (H) 11/05/2020 EGFRAA 41 (L) 09/01/2021 EGFRAA 36 (L) 04/22/2021 EGFRAA 32 (L) 11/05/2020 EGFR 35 (L) 09/01/2021 EGFR 31 (L) 04/22/2021 EGFR 27 (L) 11/05/2020 EGFRCR 34 (L) 07/13/2015 PROTCREATUR 4,011 (H) 09/02/2021 PROTCREATUR 4.011 (H) 09/02/2021 PROTCREATUR 606 (H) 04/22/2021 PROTCREATUR 0.606 (H) 04/22/2021 NA 143 09/01/2021 K 4.3 09/01/2021 CL 108 09/01/2021 CO2 29 09/01/2021 CA 8.9 09/01/2021 PHOSPHATE 4.4 (H) 09/01/2021 ALBUMIN 3.2 (L) 09/01/2021 GLUCOSE 165 (H) 09/01/2021 PTH 28 04/22/2021 VITD3 47 04/22/2021 LDL 77 12/19/2019 HDL 58 12/19/2019 TRIG 129 12/19/2019 ALT 23 12/19/2019 WBC 4.9 04/22/2021 HGB 12.3 04/22/2021 PLT 270 04/22/2021 Lab Results Component Value Date HEPBSAB NON-REACTIVE 11/05/2020 Imaging 12/27/16 ultrasound shows no hydro now. Impression: Sarah has an elevated creatinine. labs not done. last check was 19 in July 2022 and then 21 last fall and then 14 to 15 in the last 9 months, now 12 but she is ill. her blood pressure is low. I checked it again at the end of the examiner systolic is still 78. Her GFR is lower at 12. I think she is probably dehydrated. I asked her to go to the emergency room serology is okay. immunofix neg ultrasound shows no more blockage . Dx = HTN and DM We discussed things to improve/preserve kidney function. BP is Low now will adjust meds in the hospital. LDL is good On a low protein diet Pt is working with Dr Goode with the sugars. These have been very good. Vitamin-D is okay. PTH is a bit high but in range for CKD stage 4. CO2 is good Losartan is on hold due to low GFR BMI is high. 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 Get labs before the next visit RTC 4 months Author Chau [facility] Authored June 04, 2024 9:55 am Advise to limit fluid intake to no more than 1.5 l/day. Advise to wear compression stockings knee highs to be worn during the day. F/U 4 months. Fair today. Advise to maintain a low sodium diet. Advise to monitor BP at home and if high, will start Amlodipine. Advise to maintain a low saturated fat diet. Discussed lab results including normal lipid panel, normal TSH, CBC with Hb 9.2, WBC 4.2, CMP with Cr 2.7/GFR 17, BS 109, HbA1c 7.4%, Mag 2.0, NTproBNP 2,360. Obtain Lipid panel. Advise regarding portion control and regular exercise to lose weight. In sinus rhythm. On Eliquis. [id number] 4. On Amiodarone. Discuss results of event monitor. On Amiodarone. Future Tests Future scheduled test information is unavailable Pending Tests Pending diagnostic test information is unavailable Future Visits Future appointment information is unavailable Referrals to Other Providers Reason for Referral Referral Start Date Provider Provider Contact Information Provider Address Kyree SiuGerardo Diaz , TUBE STATION ATTENDANT Work Phone: [address] [place] [address] [facility] [address] Jayy Carrillo MD Work Phone: [address] [facility] [address] Kyree Diaz , [employer]ATION ATTENDANT Work Phone: [address] [place] [address] Oh Goode MD Work Phone: [phone] [facility] [address] [place] [address] Oh Goode MD Work Phone: [address] [place] [address] [address] [place] [address] Future Procedures Procedure Name Ordered Date Scheduled Date Discharge Order May 26, 2024 11:49am May 11:49am Placement to Observation May 23, 2024 5:31pm May 23, 2024 5:31pm OT Discharge Clarification May 25, 2024 9:55a m May 25, 2024 9:55am PT Discharge Clarification May 25, 2024 11:14 am May 25, 2024 11:14am Consult to Physician May 23, 2024 5:31pm May 23, 2024 5:32pm Future Medications Future medication information is unavailable Patient Instructions Instruction Admit Date COPD (Chronic Obstructive Pulmonary Dise ase) (AC) April 12, 2024 1:26pm Antibiotic Form Chest Pain (ED) Urinary Tract Infection in Women (ED) Hypotension (ED) Dizziness (ED) May 10, 2024 4:38pm Apixaban (By mouth) Heart Failure (DC) Chronic Kidney Disease (DC) Hypotension (DC) May 23, 2024 6:31pm Antibiotic Form Contusion in Adults (ED) September 27, 2024 9:30am Goals Acute Goals Author Authored Date Verbalizes/Demonstrates Unde rstanding *Demonstrates understanding of teaching [facility] May 26, 2024 3:08pm Participate in Discharge Karla nning In order to achieve this outcome, the patient/ and or family will: * assist in identification of DME needs * assist in identification of community resource needs * assist in identification of appropriate discharge destination [facility] May 26, 2024 3:08pm Develop pain management prog fabricio In order to achieve this outcome the patient will: * Use the pain scale appropriately * Identify options for pain control - Analgesics - Narcotics - Non-medication measures [facility] May 26, 2024 3:08pm Increase knowledge regarding pain mgmt *Demonstrates understanding of teaching [facility] May 26, 2024 3:08pm Exhibit no s/s alt. glucose metabolism * Maintains optimal blood glucose level * Blood glucose monitored as scheduled * Patient will notify nurse when meal tray has arrived * Out of prescribed acceptable range, notify [facility] May 26, 2024 3:08pm Reduced risk of bleeding * Exhibits lab results WNL [facility] May 26, 2024 3:08pm Maintain an effective breath ing pattern * Maintains a patent airway * Maintains vital signs WNL * Maintains optimal breath sounds [facility] May 26, 2024 3:08pm Adapt to partial or total vi grisel loss * Uses corrective lenses * Performs ADL's * Uses safety measures [facility] May 26, 2024 3:08pm Exhibit intact skin * Skin remains intact [facility] May 26, 2024 3:08pm Maintain an effective breath ing pattern * Maintains a patent airway * Maintains vital signs WNL * Maintains optimal breath sounds [facility] May 26, 2024 3:08pm Remain free of injury *Follows Safety Interventions [facility] May 26, 2024 3:08pm Improved infection * Maintains vital signs WNL * Evidences no purulent drainage from wounds, incisions, and tubes * Maintains optimal lab values [facility] May 26, 2024 3:08pm Maintain adequate fluid volu me * Maintains vital signs WNL * Maintains clear breath sounds * Exhibits decreasing edema * Maintains adequate intake and output * Maintains stable weight * Maintains optimal lab values [facility] May 26, 2024 3:08pm Exhibit optimal tissue integ rity * Exhibits granulation/healing at site * Exhibits decreased drainage at site * Exhibits no s/s of infection * Exhibits a decrease in lesion size * Maintains nutritional status * Maintains hydration status * Maintains optimal lab values [facility] May 26, 2024 3:08pm Hospital Discharge Instructions Additional Instructions Discussed with patient results of workup and diagnosis. Discussed need for follow-up with primary care, proper use of medication, and reasons to return to the emergency department, including shortness of breath and extreme swelling. Patient understands and agrees to current treatment plan. Progress Note Author [facility] Note Date/Time September 27, 2024 12:18pm [facility] [address] [place] [id number] Emergency Room Visit Note Signed Patient: Sarah Alvarado MR#: [id number] : 1945 Acct:[id number] Age: 79 ADM Date: 09/27/24 Loc: ANHED Attending Dr: cc: Oh Goode MD; Hilda Joel TUBE STATION ATTENDANT~ HPI - Fall General Chief Complaint: Fall Stated Complaint: GLF Source: patient and family Mode of arrival: EMS Limitations: no limitations History of Present Illness HPI Narrative: Patient is a 71-year-old female who presents to the ER via EMS after afall out of her electric chair. She reports she was sitting on her chair and reached for her clothes on the ground when Her dog jumped on her lap and she fell forward onto the ground. Patient endorses right hip and right lower quadrant pain. She reports she is on blood thinners. Patient denies hitting her head or any loss of consciousness. She endorses a history of high blood pressure, gout, congestive heart failure, diabetes and chronic pain. Related Data Home Medications Medication Instructions Recorded Confirmed gabapentin 300 mg capsule 300 mg PO TID 12/07/19 06/04/24 ergocalciferol (vitamin D2) 1,250 1,250 mcg PO WEEKLY 02/22/21 06/04/24 mcg (50,000 unit) capsule docusate sodium 100 mg capsule 1 cap PO DAILY 05/04/22 06/04/24 dicyclomine 10 mg capsule 10 mg PO TID PRN Abdominal 03/27/23 06/04/24 Discomfort allopurinol 100 mg tablet 100 mg PO DAILY 09/15/23 06/04/24 atorvastatin 80 mg tablet 80 mg PO HS 09/15/23 06/04/24 ezetimibe 10 mg tablet 10 mg PO DAILY 09/15/23 06/04/24 hydrocodone 10 mg-acetaminophen 1 tablet PO Q8H PRN Pain (Scale 09/15/23 06/04/24 325 mg tablet Score 4-6) melatonin 5 mg tablet 5 mg PO HS 09/15/23 06/04/24 sitagliptin phosphate 25 mg tablet 25 mg PO DAILY 09/15/23 06/04/24 (Januvia) acetaminophen 500 mg capsule 500 mg PO Q6H 09/26/23 06/04/24 amiodarone 200 mg tablet 200 mg PO DAILY 01/16/24 06/04/24 apixaban 5 mg tablet (Eliquis) 5 mg PO Q12H 01/16/24 06/04/24 Allergies Allergy/AdvReac Type Severity Reaction Status Date / Time ceftriaxone Allergy Unknown Anaphylaxis Verified 06/04/24 10:38 clindamycin Allergy Unknown Anaphylaxis Verified 06/04/24 10:38 Penicillins Allergy Unknown Hives Verified 06/04/24 10:38 morphine AdvReac Unknown Vomiting Verified 06/04/24 10:38 nitroglycerin AdvReac Unknown Headache Verified 06/04/24 10:38 Review of Systems Review of Systems: All systems reviewed & are unremarkable except as noted in HPI and below PMFSH Past Medical History Medical History Anemia of chronic disease Cerebrovascular accident 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 Cholelithiasis Chronic anticoagulation Congestive heart failure History of reduced ejection fraction with improvement in EF to 55% on most recent echo. Diastolic dysfunction also noted. 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 Depression with anxiety Diabetic peripheral neuropathy Dyslipidemia Essential hypertension Fibromyalgia Gastroesophageal reflux disease Hypersomnia Obstructive sleep apnea on CPAP Osteoarthritis Paroxysmal atrial flutter Peptic ulcer Stage III chronic kidney disease Baseline creatinine ranges between 1.3 and 1.60. Type 2 diabetes mellitus Vitamin D deficiency Surgical History Surgical History History of appendectomy History of cardiac catheterization (07/2013) Normal coronaries although anomalous left coronary artery arising from the right ostium was noted. History of hysterectomy (1979) History of left breast biopsy Benign pathology. Family History Family History Father Malignant neoplasm of prostate Heart disease Mother Esophageal cancer Sibling Diabetes mellitus Daughter Alcoholism Social History Social History Social History: Surrogate medical decision maker: Mikkiharsh Herrera, daughter. Code status: Full Code. Smoking status: Never smoker Second hand tobacco smoke exposure: No Alcohol intake: current Drinks per week: 1 Alcohol use details: Rare alcohol use in moderation. Substance use: never Substance use type: does not use Do You Feel Safe in your Home?: Yes Lack of Transportation: No Lack of Food: Never True Current Housing: I Have Housing Concerned About Future Housing: No Difficulty Paying Gas/Electric Bills: No Difficulty Paying for Meds: No Currently Unemployed: No Education: High School Diploma/GED Difficulty w/ Childcare or Family Care: No Additional living arrangements comments: . Lives with daughter Mikki in [place]. 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 Spiritual care concerns: No Exam Narrative: GENERAL: Well appearing, obese, non-toxic, in no acute distress. HEAD: Normocephalic, atraumatic. NECK: Supple. No adenopathy, no masses. RESPIRATORY: Airway patent, respirations nonlabored. Clear to auscultation bilaterally, no rales, rhonchi, wheezing. CARDIOVASCULAR: Regular rate and rhythm without murmurs, rubs, or gallops. Peripheral pulses 2+ and equal bilaterally. ABDOMINAL: Soft, nontender, nondistended, no hepatosplenomegaly. Normoactive BS. MUSCULOSKELETAL: Moves all extremities. R hip tenderness, R lower extremity calfpain that worsens with movement. Full ROM in all extremities. R knee deformity with no noticeable ecchymosis. SKIN: Warm, dry, normal color. No rashes. R wrist skin tear X 2, approximately 1/2-1 inch long each, bleeding controlled. 4cm x 5cm hematoma on anterior lower extremity. NEURO: A&O X3. Speech clear. Cranial nerves II-XII grossly intact. No ataxic movements. PSYCHIATRIC: Appropriate mood and affect. Normal interaction. Course Vital Signs Vital signs: Vital Signs Temperature 36.6 C 09/27/24 09:27 Pulse Rate 64 09/27/24 09:27 Respiratory Rate 16 09/27/24 09:27 Blood Pressure 160/85 H 09/27/24 09:27 Pulse Oximetry 100 09/27/24 09:27 Oxygen Delivery Room Air 09/27/24 09:27 Temperature 36.6 C 09/27/24 09:27 Pulse Rate 64 09/27/24 09:27 Respiratory Rate 16 09/27/24 09:27 Blood Pressure 160/85 H 09/27/24 09:27 Pulse Oximetry 100 09/27/24 09:27 Oxygen Delivery Room Air 09/27/24 09:27 MDM - Fall MDM Narrative Medical decision making narrative: Patient is a 71-year-old female who presents to the ER via EMS after afall out of her electric chair. She reports she was sitting on her chair and reached for her clothes on the ground when Her dog jumped on her lap and she fell forward onto the ground. Patient endorses right hip and right lower quadrant pain. She reports she is on blood thinners. Patient denies hitting her head or any loss of consciousness. She endorses a history of high blood pressure, gout, congestive heart failure, diabetes and chronic pain. Pt also hastwo skin tears on her R wrist that are approximately 1/2-1 inch each. Labs Ordered: None necessary Imaging Ordered: X-rays of R hip, R knee, R tib/fib, R ankle Results: No acute abnormalities Disposition/Plan: Results shared with patient and her family member. Patient advise to elevate ice and rest her right lower extremity when she gets home. She should continue to take her previously ordered pain medication as needed. Patient and her daughter verbalized understanding and are in agreement with plan. Differential Diagnosis Differential diagnosis: Likely syncope, fracture of wrist and other (R hip fracture, R knee dislocation, R tib/fib fracture, R ankle fracture) Imaging Data Attestation: I personally reviewed and interpreted this imaging study as follows: Radiologist's impression: Impressions Knee X-Ray 09/27/24 11:10 IMPRESSION: 1. Likely subcutaneous hematoma anterior to the proximal right tibia. 2. Degenerative skeletal changes as detailed above but no acute osseous abnormality of the right lower leg from the knee through the midfoot. Tibia/Fibula X-Ray 09/27/24 11:10 IMPRESSION: 1. Likely subcutaneous hematoma anterior to the proximal right tibia. 2. Degenerative skeletal changes as detailed above but no acute osseous abnormality of the right lower leg from the knee through the midfoot. Hip X-Ray 09/27/24 11:15 IMPRESSION: 1. Severe lumbar spondylosis. No acute osseous abnormality. Ankle X-Ray 09/27/24 11:19 IMPRESSION: 1. 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 No acute osseous abnormality. 2. Heterotopic ossicles along the disc margin of the medial malleolus likely sequela of chronic deltoid ligament sprain. Wrist X-Ray 09/27/24 11:29 IMPRESSION: 1. No acute osseous abnormality. 2. Polyarticular osteoarthritis, moderate to severe at the first carpometacarpaljoint and otherwise mild. Discharge Plan Discharge Clinical Impression: Acute pain of right hip, Lower extremity injury, Lower extremity pain, Hematomaof right lower leg Patient Disposition: Home, Self-Care Condition: Stable Instructions: Antibiotic Form, Contusion in Adults (ED) Additional Instructions: Discussed with patient results of workup and diagnosis. Discussed need for follow-up with primary care, proper use of medication, and reasons to return to the emergency department, including shortness of breath and extreme swelling. Patient understands and agrees to current treatment plan. Prescriptions: No Action gabapentin 300 mg capsule 300 mg PO TID (DME) comp.stocking,knee,long,medium Misc See Rx Instructions .Route Qty: 12 0RF Rx Instructions: As directed glucagon 3 mg/actuation spray,non-aerosol 3 mg intranasal ONCE Qty: 2 4RF Rx Instructions: as a single dose; may repeat once in 15 minutes if no response glucose [Dex4 Glucose] 4 gram tablet,chewable 16 g PO Q15M PRN (Reason: hypoglycemia) Qty: 60 1RF Rx Instructions: until symptoms of low blood sugar are controlled dicyclomine 10 mg capsule 10 mg PO TID PRN (Reason: Abdominal Discomfort) acetaminophen 500 mg Capsule 500 mg PO Q6H Chloraseptic Sore Throat 6-10 mg Lozenge 1 teresita PO PRN PRN (Reason: Sore Throat) Qty: 18 2RF sennosides-docusate sodium [Senokot-S] 8.6-50 mg Tablet 1 tab-cap PO Q12H PRN (Reason: constipation) Qty: 90 1RF famotidine 20 mg Tablet 20 mg PO Q12HR Qty: 90 1RF ergocalciferol (vitamin D2) 1,250 mcg (50,000 unit) Capsule 1,250 mcg PO WEEKLY Patient Comments: takes on tuesday Rx Instructions: on docusate sodium 100 mg capsule 1 cap PO DAILY tamsulosin 0.4 mg Capsule 0.4 mg PO QAM Qty: 30 0RF ezetimibe 10 mg tablet 10 mg PO DAILY Januvia 25 mg tablet 25 mg PO DAILY melatonin 5 mg Tablet 5 mg PO HS atorvastatin 80 mg tablet 80 mg PO HS allopurinol 100 mg tablet 100 mg PO DAILY hydrocodone-acetaminophen 10-325 mg tablet 1 tablet PO Q8H PRN (Reason: Pain (Scale Score 4-6)) amiodarone 200 mg tablet 200 mg PO DAILY Eliquis 5 mg tablet 5 mg PO Q12H carvedilol 12.5 mg tablet 12.5 mg PO Q12H Qty: 60 5RF Rx Instructions: must administer with a meal/food furosemide 20 mg tablet 20 mg PO QAM Qty: 30 5RF Follow-up/Referrals: Oh Goode MD [Primary Care Provider] - Time of Disposition: 12:17 This report may have been done utilizing a voice recognition system. Attempts have been made to correct errors. However, there may be uncorrected grammatical,spelling, and recognition errors present. Report Initialized date/time: Hilda Joel APRN 09/27/24 / 0952 Electronically signed by: Hilda Joel APRN 09/27/24 121
--- OUTSIDE RECORDS SUMMARY | 2024-11-18 09:11 | XMS_ITS | Encounter Summary ---
Author Organization [facility] Address [address] [place] [address]. [place], [place] [id number] [place] [address] Care Team Providers Care Press Tender Incendiary Grenade Name Role Phone Oh Goode MD Primary [...] on filedocumented in this encounter Care Teams Press Tender Incendiary Grenade Relationship Specialty Start Date End Date Oh Goode MD [address] [place] [address] PCP - General FAMILY PRACTICE 01/26/20 documented as of this encounter
--- OUTSIDE RECORDS SUMMARY | 2024-11-18 09:11 | XMS_ITS | Clinical Summary ---
Author Organization [facility] Address [address] [place] [address]. [place] [address] [place] [address] Care Team Providers Care Deputy Controller Name Role Phone Oh Goode MD Primary Care Provider [phone] Allergies Active Allergy Reactions Criticality Noted Date [...] Active vitamin D2, ergocalciferol, (VITAMIN D, ERGOCALCIFEROL,) 21224 UNITS capsule Take 1 capsule (50,000 Units [...] Department Care Team Description 10/12/2024 9:40 AM ELECTRONIC EQUIPMENT SET UP OPERATOR Office Visit [facility] Family & Internal Medicine [address] [id number] Evin Frank PA Mouth/Lip Problem [...] Comments Blood Pressure 171/86 10/12/2024 9:00 AM ELECTRONIC EQUIPMENT SET UP OPERATOR Pulse 68 10/12/2024 9:00 AM ELECTRONIC EQUIPMENT SET UP OPERATOR Temperature 36.3 ??C (97.3 ??F) 10/12/2024 9:00 AM CS T Respiratory Rate 18 10/12/2024 9:00 AM ELECTRONIC EQUIPMENT SET UP OPERATOR Oxygen Saturation 95% 10/12/2024 9:00 AM ELECTRONIC EQUIPMENT SET UP OPERATOR Inhaled Oxygen Concentration - - Weight 91.6 kg (202 lb) 10/12/2024 9:00 AM ELECTRONIC EQUIPMENT SET UP OPERATOR Height 167.6 cm (5' 6 ) 10/12/2024 9:00 AM ELECTRONIC EQUIPMENT SET UP OPERATOR Body Mass Index 32.6 10/12/2024 9:00 AM ELECTRONIC EQUIPMENT SET UP OPERATOR Plan of Treatment Health Maintenance Due Date [...] patient's age to complete this topic Insurance [facility] Care Teams Deputy Controller Relationship Specialty Start Date End Date Oh Goode MD [address] [place] [address] PCP - General FAMILY PRACTICE 01/26/20
--- OUTSIDE RECORDS SUMMARY | 2024-11-18 09:11 | XMS_ITS | Encounter Summary ---
Author Organization [facility] Address [address] [place] [address]. [place] [address] [place] [address] Care Team Providers Care Advanced Research Programs Director Name Role Phone Oh Goode MD Primary Care Provider [phone] Reason for Referral * Imaging (Emergency) - Closed Specialty Diagnoses / Procedures Referred By Contac t Referred To Contact RADIOLOGY Procedures CT LUMB SPINE WO CON Demond Heck MD [address] [address] Phone: tel: fax: Referral ID Status Reason Start Date Expiration Date Visits Re quested Visits Authorized [id number] Closed 10/19/2023 10/19/2024 1 1 NING STAFF SUPERVISOR * Imaging (Emergency) - Closed Specialty Diagnoses / Procedures Referred By Contac t Referred To Contact RADIOLOGY Procedures CT THOR SPINE WO CON Demond Heck MD [address] [address] Phone: tel: fax: Referral ID Status Reason Start Date Expiration Date Visits Re quested Visits Authorized [id number] Closed 10/19/2023 10/19/2024 1 1 NING STAFF SUPERVISOR * Imaging (Emergency) - Closed Specialty Diagnoses / Procedures Referred By Contac t Referred To Contact RADIOLOGY Procedures CT CERV SPINE WO CON Demond Heck MD [address] [address] Phone: tel: fax: Referral ID Status Reason Start Date Expiration Date Visits Re quested Visits Authorized [id number] Closed 10/19/2023 10/19/2024 1 1 NING STAFF SUPERVISOR * Imaging (Emergency) - Closed Specialty Diagnoses / Procedures Referred By Contac t Referred To Contact RADIOLOGY Procedures CT HEAD WO CON Demond Heck MD [address] [address] Phone: tel: fax: Referral ID Status Reason Start Date Expiration Date Visits Re quested Visits Authorized [id number] Closed 10/19/2023 10/19/2024 1 1 NING STAFF SUPERVISOR Reason for Visit * Reason Comments Fall Encounter Details Date Type Department Care Team (Late st Contact Info) Description 10/19/2023 6:50 PM CLEANING STAFF SUPERVISOR - 10/19/2023 9:59 PM CLEANING STAFF SUPERVISOR Emergency [facility] Emergency Room [address] [place] [address] Demond Heck MD [address] [address] Fall Discharge Disposition: Home or [...] Comments Blood Pressure 137/71 10/19/2023 9:44 PM CLEANING STAFF SUPERVISOR Pulse 70 10/19/2023 9:44 PM CLEANING STAFF SUPERVISOR Temperature 36.6 ??C (97.9 ??F) 10/19/2023 6:55 PM CS T Respiratory Rate 18 10/19/2023 9:44 PM CLEANING STAFF SUPERVISOR Oxygen Saturation 97% 10/19/2023 9:44 PM CLEANING STAFF SUPERVISOR Inhaled Oxygen Concentration - - Weight 99.8 kg (220 lb) 10/19/2023 6:55 PM CLEANING STAFF SUPERVISOR Height 167.6 cm (5' 6 ) 10/19/2023 6:55 PM CLEANING STAFF SUPERVISOR Body Mass Index 35.51 10/19/2023 6:55 PM CLEANING STAFF SUPERVISOR documented in this encounter Discharge Instructions * Discharge Instructions* Demond Heck MD - 10/19/2023 9:32 PM CLEANING STAFF SUPERVISOR Return if worse or any other concerns. NING STAFF SUPERVISOR * Attachments The following attachments cannot be sent through Care Everywhere. * Preventing falls in adults (Andorran) documented in this encounter Medications at Time [...] daily. vitamin D2, ergocalciferol, (VITAMIN D, ERGOCALCIFEROL,) 46299 UNITS capsule Take 1 capsule (50,000 Units [...] Abstract vitamin D2, ergocalciferol, (VITAMIN D, ERGOCALCIFEROL,) 13936 UNITS capsule Take 50,000 Units by mouth. Doc [facility] Abstract PAST MEDICAL HISTORY: Past Medical History: Diagnosis Date Arthritis CHF (congestive heart failure) ([facility]/HCC) ([facility]) COPD (chronic obstructive pulmonary disease) ([facility]) ([facility]/HCC) Hypertension Pneumonia, unspecified organism Renal disorder Stroke ([facility]/HCC) ([facility]) PAST SURGICAL HISTORY: Past Surgical History: Procedure [...] RT MIN 4V Final Result by User, [id number] (10/19 2115) Right knee 4 views INDICATION: [...] ANKLE LT M3V Final Result by User, [id number] (10/19 2116) Left ankle 3 views INDICATION: [...] HEAD WO CON Final Result by User, [id number] (10/19 2107) EXAMINATION: CT of the head [...] SPINE WO CON Final Result by User, [id number] (10/19 2115) Examination: CT CERV SPINE WO [...] SPINE WO CON Final Result by User, [id number] (10/19 2129) CLINICAL INDICATION: 78-year-old female trauma. [...] SPINE WO CON Final Result by User, [id number] (10/19 2122) Examination: CT LUMB SPINE WO [...] Disposition: Discharge Demond Heck MD 10/20/23 0631 NING STAFF SUPERVISOR * Jazzy Hurtado RN - 10/19/2023 6:51 [...] fall. Currently takes norco for pain management. NING STAFF SUPERVISOR documented in this encounter Plan of Treatment Not on file documented as of this encounter Procedures Procedure Name Priority Date/Time Associated Diagnosis Comments XR KNEE RT MIN 4V STAT 10/19/2023 8:2 1 PM CLEANING STAFF SUPERVISOR XR ANKLE LT M3V STAT 10/19/2023 8:21 PM CLEANING STAFF SUPERVISOR CT THOR SPINE WO CON STAT 10/19/2023 8:21 PM CLEANING STAFF SUPERVISOR CT LUMB SPINE WO CON STAT 10/19/2023 8:21 PM CLEANING STAFF SUPERVISOR CT HEAD WO CON STAT 10/19/2023 8:21 PM CLEANING STAFF SUPERVISOR CT CERV SPINE WO CON STAT 10/19/2023 8:21 PM CLEANING STAFF SUPERVISOR documented in this encounter Results * XR ANKLE LT M3V (10/19/2023 8:21 PM CLEANING STAFF SUPERVISOR) Anatomical Region Laterality Modality Ankle Radiographic Mayi ging 10/19/2023 9:10 PM CLEANING STAFF SUPERVISOR Impressions 10/19/2023 9:11 PM CLEANING STAFF SUPERVISOR IMPRESSION: Negative for fracture. Referred By: ?? Interpreted By: Alvarez Good MD, 10/19/2023 9:10 PM Narrative 10/19/2023 9:11 PM CLEANING STAFF SUPERVISOR Left ankle 3 views INDICATION: Pain. ??Trauma. [...] KNEE RT MIN 4V (10/19/2023 8:21 PM CLEANING STAFF SUPERVISOR) Anatomical Region Laterality Modality Knee Radiographic Mayi ging 10/19/2023 9:08 PM CLEANING STAFF SUPERVISOR Impressions 10/19/2023 9:10 PM CLEANING STAFF SUPERVISOR IMPRESSION: Moderately severe tricompartmental degenerative change. ??Negative for fracture. Referred By: ?? Interpreted By: Alvarez Good MD, 10/19/2023 9:08 PM Narrative 10/19/2023 9:10 PM CLEANING STAFF SUPERVISOR Right knee 4 views INDICATION: Pain. ??Trauma. [...] By: Alvarez Good MD, 10/19/2023 9:08 PM us Demond Heck MD GENERAL IMAGING Final Resul t * CT LUMB SPINE WO CON (10/19/2023 8:21 PM CLEANING STAFF SUPERVISOR) Anatomical Region Laterality Modality Spine Computed Tomogra phy 10/19/2023 9:10 PM CLEANING STAFF SUPERVISOR Impressions 10/19/2023 9:17 PM CLEANING STAFF SUPERVISOR IMPRESSION: 1. ??No acute fracture identified. 2. ??Degenerative disease, worse at L3-4 where there is advanced spinal canal stenosis. 3. ??Trace free pelvic fluid. Referred By: ?? Interpreted By: Denis Thompson MD, 10/19/2023 9:10 PM Narrative 10/19/2023 9:17 PM CLEANING STAFF SUPERVISOR Examination: CT LUMB SPINE WO CON Clinical [...] THOR SPINE WO CON (10/19/2023 8:21 PM CLEANING STAFF SUPERVISOR) Anatomical Region Laterality Modality Spine Computed Tomogra phy 10/19/2023 9:16 PM CLEANING STAFF SUPERVISOR Impressions 10/19/2023 9:24 PM CLEANING STAFF SUPERVISOR IMPRESSION: 1. No evidence of acute thoracic spine fracture or traumatic malalignment. 2. ??Small left pleural effusion possible right upper lobe infiltrate with only the central lung zone seen. 3. ??Consider follow-up with chest radiograph. Referred By: ?? Interpreted By: Marjan Mclaughlin DO, 10/19/2023 9:16 PM Narrative 10/19/2023 9:24 PM CLEANING STAFF SUPERVISOR CLINICAL INDICATION: 78-year-old female trauma. ??Back trauma. [...] CERV SPINE WO CON (10/19/2023 8:21 PM CLEANING STAFF SUPERVISOR) Anatomical Region Laterality Modality Spine Computed Tomogra phy 10/19/2023 9:02 PM CLEANING STAFF SUPERVISOR Impressions 10/19/2023 9:09 PM CLEANING STAFF SUPERVISOR IMPRESSION: 1. ??No acute fracture identified. 2. ??Progressive degenerative disease, with possible high-grade spinal canal stenosis at C3-C4. 3. ??Other chronic or nonurgent findings as described above. Referred By: ?? Interpreted By: Denis Thompson MD, 10/19/2023 9:02 PM Narrative 10/19/2023 9:09 PM CLEANING STAFF SUPERVISOR Examination: CT CERV SPINE WO CON Clinical [...] CT HEAD WO CON (10/19/2023 8:21 PM CLEANING STAFF SUPERVISOR) Anatomical Region Laterality Modality Head Computed Tomogra phy 10/19/2023 8:55 PM CLEANING STAFF SUPERVISOR Impressions 10/19/2023 9:02 PM CLEANING STAFF SUPERVISOR IMPRESSION: 1. ??No definite CT evidence for acute intracranial abnormality. 2. ??Other chronic or nonurgent findings as described above. Please note that CT has limited sensitivity for the detection of acute ischemia Referred By: ?? Interpreted By: Denis Thompson MD, 10/19/2023 8:55 PM Narrative 10/19/2023 9:02 PM CLEANING STAFF SUPERVISOR EXAMINATION: CT of the head CLINICAL HISTORY: [...] in 24 hours. Given 10/19/2023 8:22 PM CLEANING STAFF SUPERVISOR 1 tablet documented in this encounter Active and Recently Administered Medications Times are shown in CLEANING STAFF SUPERVISOR. Scheduled Medication Order 10/17/2023 10/18/2023 10/19/2023 HYDROcodone-acetaminophen (NORCO) 10-325 MG tablet 1 tablet (COMPLETED) 1 tablet, Oral, Once, 1 dose, On Tue10/19/23 at 191, Maximum dose of acetaminophen is 4000 mg from all sources in 24 hours. 2021 (Given - Provid er: Jazzy Hurtado RN) documented in this encounter Care Teams Advanced Research Programs Director Relationship Specialty Start Date End Date Oh Goode MD [address] [place] [address] PCP - General FAMILY PRACTICE 01/26/20 documented as of this encounter
--- OUTSIDE RECORDS SUMMARY | 2024-11-18 09:11 | XMS_ITS | Encounter Summary ---
Author Organization [facility] Address [address] [place] [address]. [place] [address] [place] [address] Care Team Providers Care Structural Engineering Technician Name Role Phone Oh Goode MD Primary Care Provider [phone] Encounter Details Date Type Department Care Team [...] on filedocumented in this encounter Care Teams Structural Engineering Technician Relationship Specialty Start Date End Date Oh Goode MD [address] [place] [address] PCP - General FAMILY PRACTICE 01/26/20 documented as of this encounter
--- OUTSIDE RECORDS SUMMARY | 2024-11-18 09:11 | XMS_ITS | Encounter Summary ---
Author Organization [facility] Address [address] [place] [address]. [place], [place] [address] [place] [address] Care Team Providers Care Mission Assessment Specialist Name Role Phone Oh Goode MD [...] on filedocumented in this encounter Care Teams Mission Assessment Specialist Relationship Specialty Start Date End Date Oh Goode MD [address] [place] [address] PCP - General FAMILY PRACTICE 01/26/20 documented as of this encounter
--- OUTSIDE RECORDS SUMMARY | 2024-11-18 09:11 | XMS_ITS | Encounter Summary ---
Author Organization [facility] Address [address] [place] [address]. [place] [address] [place] [address] Care Team Providers Care Proof Sorter Name Role Phone Oh Goode MD Primary Care Provider [phone] Encounter Details Date Type Department Care Team [...] on filedocumented in this encounter Care Teams Proof Sorter Relationship Specialty Start Date End Date Oh Goode MD [address] [place] [address] PCP - General FAMILY PRACTICE 01/26/20 documented as of this encounter
--- OUTSIDE RECORDS SUMMARY | 2024-11-18 09:11 | XMS_ITS | Encounter Summary ---
Author Organization [facility] Address [address] [place] [address]. [place] [address] [place] [address] Care Team Providers Care Fire Hydrant Operator Name Role Phone Oh Goode MD Primary Care Provider [phone] Reason for Visit * Reason Comments Knee Pain Encounter Details Date Type Department Care Team (Late st Contact Info) Description 01/26/2020 4:34 PM CDT - 01/26/2020 5:23 PM CDT Emergency [facility] Emergency Room [id number] [place] [address] Swapnil Sheehan PA [address] [place], [place] [id number] Knee Pain Discharge Disposition: Home or Self [...] Everywhere. * Chronic Knee Pain Discharge Instructions ([place]guillan) documented in this encounter Medications at Time [...] daily. vitamin D2, ergocalciferol, (VITAMIN D, ERGOCALCIFEROL,) 61827 UNITS capsule Take 1 capsule (50,000 Units [...] Abstract vitamin D2, ergocalciferol, (VITAMIN D, ERGOCALCIFEROL,) 67136 UNITS capsule Take 50,000 Units by mouth. [...] 100 g, Refills: 0 Class: Eprescribe Pharmacy: [id number] [place] [id number] (Ph #: [phone]) Disposition: Discharge Follow-Up: Oh Goode MD [address] [facility] [address] Schedule an appointment as soon as [...] RN) documented in this encounter Care Teams Fire Hydrant Operator Relationship Specialty Start Date End Date Oh Goode MD [address] [place], [place] [id number] PCP - General FAMILY PRACTICE 01/26/20 documented as of this encounter
--- OUTSIDE RECORDS SUMMARY | 2024-11-18 09:11 | XMS_ITS | Encounter Summary ---
Author Organization [facility] Address [address] [place] [address]. [place] [address] [place] [address] Care Team Providers Care Dress Fitter Name Role Phone Oh Goode MD Primary Care Provider [phone] Reason for Visit * Reason Comments Mouth/Lip Problem Pt states she fell a week ago and bit her tongue, pt also has hematoma on right leg and right hip area. Pt concerned Encounter Details Date Type Department Care Team (Late st Contact Info) Description 10/12/2024 9:40 AM CANE BURNER Office Visit [facility] - [place] [id number] [place] [phone] [place] [id number] [place] [address] Mouth/Lip Problem (Pt states she fell [...] Comments Blood Pressure 171/86 10/12/2024 9:00 AM CANE BURNER Pulse 68 10/12/2024 9:00 AM CANE BURNER Temperature 36.3 ??C (97.3 ??F) 10/12/2024 9:00 AM CS T Respiratory Rate 18 10/12/2024 9:00 AM CANE BURNER Oxygen Saturation 95% 10/12/2024 9:00 AM CANE BURNER Inhaled Oxygen Concentration - - Weight 91.6 kg (202 lb) 10/12/2024 9:00 AM CANE BURNER Height 167.6 cm (5' 6 ) 10/12/2024 9:00 AM CANE BURNER Body Mass Index 32.6 10/12/2024 9:00 AM CANE BURNER documented in this encounter Progress Notes * [...] Rfl: vitamin D2, ergocalciferol, (VITAMIN D, ERGOCALCIFEROL,) 69792 UNITS capsule, Take 1 capsule (50,000 Units total) by mouth., Disp: , Rfl: Review of patient's allergies indicates: Allergen Reactions Clindamycin GI Upset Morphine Vomiting Nitroglycerin Headache Nsaids Unknown Penicillins Rash Past Medical History: Diagnosis Date Arthritis CHF (congestive heart failure) ([facility]) COPD (chronic obstructive pulmonary disease) ([facility]) Hypertension Pneumonia, unspecified organism Renal disorder Stroke ([facility]) Past Surgical History: Procedure Laterality Date HYSTERECTOMY [...] of right knee region Recommendations and Plan: [id number] antiseptic rinse to help the tongue heal [...] ref. provider found PCP: OH GOODE MD BURNER documented in this encounter Plan of Treatment Not on file documented as of this encounter Visit Diagnoses Diagnosis Ulceration, tongue traumatic- Primary Glossitis Hematoma of right knee region documented in this encounter Care Teams Dress Fitter Relationship Specialty Start Date End Date Oh Goode MD [address] [place] [address] PCP - General FAMILY PRACTICE 01/26/20 documented as of this encounter
--- OUTSIDE RECORDS SUMMARY | 2024-11-18 09:11 | XMS_ITS | Encounter Summary ---
Author Organization [facility] Address [address] [place] [address]. [place] [address] [place] [address] Care Team Providers Care Block Layer Name Role Phone Oh Goode MD Primary Care Provider [phone] Reason for Referral * Imaging (Emergency) - Closed Specialty Diagnoses / Procedures Referred By Contac t Referred To Contact RADIOLOGY Procedures CT CERV SPINE WO CON Fabrizio London DO Referral ID Status Reason Start Date Expiration Date Visits Re quested Visits Authorized [id number] Closed 03/27/2020 04/27/2021 1 1 * Imaging (Emergency) - Closed Specialty Diagnoses / Procedures Referred By Contac t Referred To Contact RADIOLOGY Procedures CT HEAD WO CON Fabrizio London DO Referral ID Status Reason Start Date Expiration Date Visits Re quested Visits Authorized [id number] Closed 03/27/2020 04/27/2021 1 1 Reason for Visit * Reason Comments Fall Encounter Details Date Type Department Care Team (Late st Contact Info) Description 03/27/2020 1:58 PM CDT - 03/27/2020 5:41 PM CDT Emergency [facility] Emergency Room [id number] [place] [address] Fabrizio London DO Fall Discharge Disposition: [...] sent through Care Everywhere. * Preventing Falls (Martiniquais) documented in this encounter Medications at Time [...] daily. vitamin D2, ergocalciferol, (VITAMIN D, ERGOCALCIFEROL,) 51800 UNITS capsule Take 1 capsule (50,000 Units total) by mouth. hydrocodone-aceta minophen 7.5-325 MG tabletIndications :1-2 tabs 1 tablet every 6 (six) hours as needed. Indications: 1-2 tabs 08/28/2019 4 documented as of this encounter ED Notes * Fabrizio London DO - 03/27/2020 2:46 PM CDT [place], [place] EMERGENCY DEPARTMENT ENCOUNTER HISTORICAL INFORMATION Primary Care Doctor: OH GOODE MD Patient information was obtained primarily from the patient, nursing notes History/Exam limitations: None Provider at Bedside Date/Time Event User Comments 03/27/20 8124 Provider at Bedside Assessing Patient DEROUEN, FABRIZIO [...] on her own. Ambulatory. Took 20mg hydrocodone FINANCIAL EXAMINER which helped substantially with pain. PAST MEDICAL [...] ??? 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 Interpreted By: Cloe Holley, 03/27/2020 4:52 PM Fabrizio London DO [...] RN) documented in this encounter Care Teams Block Layer Relationship Specialty Start Date End Date Oh Goode MD [address] [place] [address] PCP - General FAMILY PRACTICE 01/26/20 documented as of this encounter
== END 2024-11-11 20:48 | disposition home or self-care (01) ==
PROVIDERS: Emergency Medicine; Emergency Provider Student in an Organized Health Care Education/Training Program; PCP Family Medicine
DX: J10.1 Influenza due to other identified influenza virus with other respiratory manifestations (principal); R07.89 Other chest pain; I25.10 Atherosclerotic heart disease of native coronary artery without angina pectoris; N18.30 Chronic kidney disease, stage 3 unspecified; I50.9 Heart failure, unspecified; J44.9 Chronic obstructive pulmonary disease, unspecified; Z79.01 Long term (current) use of anticoagulants; E11.22 Type 2 diabetes mellitus with diabetic chronic kidney disease; I48.0 Paroxysmal atrial fibrillation; E55.9 Vitamin D deficiency, unspecified; F41.8 Other specified anxiety disorders; D63.1 Anemia in chronic kidney disease; E11.42 Type 2 diabetes mellitus with diabetic polyneuropathy; G47.33 Obstructive sleep apnea (adult) (pediatric); Z99.89 Dependence on other enabling machines and devices; E78.49 Other hyperlipidemia; Z20.822 Contact with and (suspected) exposure to COVID-19
CPT/HCPCS: 36415; 71045; 73590; 80053; 81001; 83690; 83880; 84484; 85025; 85610; 85730; 87637; 93005; 96374; 99284; A9270; J1171

== ENCOUNTER 2024-12-04 14:36 | Outpatient (CLI) | payer MEDICARE, SELFPAY ==
--- OUTSIDE RECORDS SUMMARY | 2024-12-04 15:12 | XMS_ITS | Clinical Summary ---
Author Organization [facility] Address [address] [place] [address]. [place] [address] [place] [address] Care Team Providers Care Internet Architect Name Role Phone Oh Goode MD Primary Care Provider + [phone] Allergies Active Allergy Reactions Criticality Noted Date Comments Clindamycin GI Upset 01/26/2020 Morphine Vomiting 03/27/2020 Nitroglycerin Headache 10/12/2024 Nsaids Unknown 01/26/2020 Penicillins Rash Low 01/26/2020 Medications melatonin 5 MG tablet Take 3 mg by mouth daily. Active SITagliptin (JANUVIA) 25 mg Tab Take 1 tablet (25 mg total) by mouth daily. Active carvedilol 12.5 MG tablet Take 1 tablet (12.5 mg total) by mouth 2 (two) times daily. Active vitamin D2, ergocalciferol, (VITAMIN D, ERGOCALCIFEROL, ) 16938 UNITS capsule Take 1 capsule (50,000 Units total) by mouth. Active ezetimibe 10 MG tablet Take 1 tablet (10 mg total) by mouth daily. Active atorvastatin 80 MG tablet Take 1 tablet (80 mg total) by mouth nightly at bedtime. Active gabapentin 300 MG capsule Take 1 capsule (300 mg total) by mouth 3 (three) times daily. Active HYDROcodone-micheal taminophen (NORCO) 10-325 MG tablet Take 1 tablet by mouth 3 (three) times daily. 024 Active tamsulosin (FLOMAX) 0.4 MG Cap Take 1 capsule (0.4 mg total) by mouth every morning. 024 Active famotidine (PEPCID) 20 MG tablet Take 1 tablet (20 mg total) by mouth every 12 (twelve) hours. Active docusate sodium (COLACE) 100 MG capsule Take 1 capsule (100 mg total) by mouth daily. Active [facility] ASPIRIN LOW DOSE 81 MG tablet Take 1 tablet (81 mg total) by mouth every morning. Active ELIQUIS 5 MG tablet Take 1 tablet (5 mg total) by mouth 2 (two) times daily. Active amLODIPine (NORVASC) 5 MG tablet Take 1 tablet (5 mg total) by mouth every morning. Active amiodarone (PACERONE) 200 MG tablet Take 1 tablet (200 mg total) by mouth daily. Active albuterol sulfate HFA 108 (90 Base) MCG/ACT inhaler Inhale 2 puffs into the lungs 4 (four) times daily. 023 Active furosemide (LASIX) 40 MG tablet Take 1 tablet (40 mg total) by mouth daily. 024 Active allopurinol (ZYLOPRIM) 100 MG tablet Take 1 tablet (100 mg total) by mouth daily. Active fenofibrate 160 MG tablet Take 1 tablet (160 mg total) by mouth daily. Active cefdinir (OMNICEF) 300 MG Cap capsule Take 1 capsule (300 mg total) by mouth daily. 14 capsule 025 Active fenofibrate 160 MG tablet Take 1 tablet (160 mg total) by mouth daily. 2024 Discontinued lisinopril 2.5 MG tablet Take 1 tablet (2.5 mg total) by mouth daily. 2024 Discontinued glipiZIDE XL 10 MG 24 hr tablet Take 1 tablet (10 mg total) by mouth daily with breakfast. Do not break or crush tablet 2024 Discontinued(E rror) sertraline 50 MG tablet Take 1 tablet (50 mg total) by mouth daily. 2024 Discontinued(E rror) pantoprazole EC 40 MG tablet Take 1 tablet (40 mg total) by mouth daily. 2024 Discontinued furosemide 20 MG tablet Take 1 tablet (20 mg total) by mouth daily. 2024 Discontinued(E rror) benzocaine-ment hol 15-[address] 1 lozenge inside cheek every 2 (two) hours as needed for Sore throat. 2024 Discontinued(E rror) budesonide-form oterol 160-4.5 MCG/ACT inhaler Inhale 2 puffs into the lungs 2 (two) times daily. 2024 Discontinued(E rror) INSULIN ASPART 100 UNIT/ML injection (VIAL)Indicatio ns:,70 glucose follow hypoglycemic protocol,70-150 0 inits insulin, 151-200 3 units, 201-250 5 units, 251-300 7 units, 301-350 9 units, 351-400 11 units, >400 call MD Inject into the skin 3 (three) times daily before meals. Indications: ,70 glucose follow hypoglycemic protocol,70-150 0 inits insulin, 151-200 3 units, 201-250 5 units, 251-300 7 units, 301-350 9 units, 351-400 11 units, >400 call MD 2024 Discontinued(E rror) diclofenac sodium 1 % gel Apply 2 g topically 4 (four) times daily. Apply to bilateral knees 100 g 020 2024 Discontinued(E rror) promethazine (PHENERGAN) 12.5 MG tablet TAKE ONE TABLET THREE TIMES A DAY NEEDED FOR NAUSEA AND VOMITING 024 2024 Discontinued fluticasone propionate (FLONASE) 50 MCG/ACT nasal spray 1 spray by Nasal route daily. 024 2024 Discontinued(E rror) allopurinol (ZYLOPRIM) 100 MG tablet Take 1 tablet (100 mg total) by mouth daily. 024 2024 Discontinued JANUVIA 25 MG Tab Take 1 tablet (25 mg total) by mouth daily. 024 2024 Discontinued predniSONE (DELTASONE) 10 mg tablet Take 4 tablets (40 mg total) by mouth daily for 3 days, THEN 3 tablets (30 mg total) daily for 3 days, THEN 2 tablets (20 mg total) daily for 3 days, THEN 1 tablet (10 mg total) daily for 3 days. 30 tablet 025 2024 Active Problems Problem Noted Date Diagnosed Date Pneumonia 11/18/2024 Encounters Date Type Department Care Team Description 11/30/2024 5:32 PM SHEET FED PRINTER - 11/30/2024 8:45 PM SHEET FED PRINTER Emergency [facility] Emergency Room [id number] [place] [address] Shira Lira MD URI Discharge Disposition: Home or Self Care (Routine Discharge) 11/30/2024 Travel 11/23/2024 Hospital Follow-up Call [facility] Care Management [address] [place] [address] Zhane Salazar LPN Follow Up Call ([facility] 11/18-11/21/23) 11/18/2024 1:47 PM SHEET FED PRINTER - 11/21/2024 1:29 PM SHEET FED PRINTER Hospital Encounter [facility] Med/Surg [address] [place] [address] German Ruiz MD Harris, Michael, MD Mahtani, Andrew, MD Medical Problem Discharge Disposition: Home or Self Care (Routine Discharge) 11/18/2024 Travel 10/12/2024 9:40 AM SHEET FED PRINTER Office Visit [facility] Family & Internal Medicine - [address] [address] Evin Frank PA Mouth/Lip Problem [...] drink = 0.6 oz pur e alcohol) [facility] Utilities Answer Date Recorded In the past 12 months has th e electric, gas, oil, or water company threatened to shut off services in your home? No 11/18/2024 Humiliation, Afraid, Rape, and Kick questionnair e Answer Date Recorded Within the last year, have y ou been afraid of your partner or ex-partner? No 11/18/2024 Within the last year, have y ou been humiliated or emotionally abused in other ways by your partner or ex-partner? No Within the last year, have y ou been kicked, hit, slapped, or otherwise physically hurt by your partner or ex-partner? No 11/18/2024 Within the last year, have y ou been raped or forced to have any kind of sexual activity by your partner or ex-partner? No 11/18/2024 AUDIT-C Answer Date Recorded Frequency of Alcohol Consumption Never 03/27/2020 Average Number of Drinks Not on file 020 Frequency of Binge Drinking Not on file 03/08 Overall Financial Resource Strain (CARDIA) Answe r Date Recorded How hard is it for you to pa y for the very basics like food, housing, medical care, and heating? Not hard at all 11/18/2024 PHQ-2 Answer Date Recorded Patient Health Questionnaire-2 Score 0 10/12/2024 Hunger Vital Sign Answer Date Recorded Within the past 12 months, y ou worried that your food would run out before you got the money to buy more. Never true 11/18/19 25 Within the past 12 months, t he food you bought just didn't last and you didn't have money to get more. Never true 11/18/2024 PRAPARE - Transportation Answer Date Re corded In the past 12 months, has l ack of transportation kept you from medical appointments or from getting medications? No 11/07 In the past 12 months, has l ack of transportation kept you from meetings, work, or from getting things needed for daily living? No 11/18/2024 Housing Stability Vital Sign Answer Drew e Recorded In the last 12 months, was t here a time when you were not able to pay the mortgage or rent on time? No 11/18/2024 In the past 12 months, how m any times have you moved where you were living? 0 11/18/2024 At any time in the past 12 m [facility], were you homeless or living in a long-term (including now)? No 11/18/2024 Comments No Sex and Gender Information Value Date Recorded Sex Assigned at Female 11/20/2024 10:33 AM SHEET FED PRINTER Legal Sex Female 4:30 PM CDT Gender Identity Female 11/20/2024 10:33 AM SHEET FED PRINTER Sexual Orientation Not on file Last Filed Vital Signs Vital Sign Reading Time Taken Comments Blood Pressure 161/89 11/30/2024 8:25 PM SHEET FED PRINTER Pulse 88 11/30/2024 5:33 PM SHEET FED PRINTER Temperature 37.1 ??C (98.7 ??F) 11/30/2024 5:33 PM CS T Respiratory Rate 18 11/30/2024 5:33 PM SHEET FED PRINTER Oxygen Saturation 99% 11/30/2024 8:25 PM SHEET FED PRINTER Inhaled Oxygen Concentration - - Weight 91.1 kg (200 lb 13.4 oz) 11/30/2024 5:33 PM SHEET FED PRINTER Height 167.6 cm (5' 6 ) 11/30/2024 5:33 PM SHEET FED PRINTER Body Mass Index 32.42 11/30/2024 5:33 PM SHEET FED PRINTER Plan of Treatment Health Maintenance Due Date Last Done Comments Hepatitis C 1964 Zoster Vaccines (1 of 2) 1996 Annual Medicare Wellness Visit 2011 Dexa Scan (General) 2011 Pneumococcal Vaccine: 65+ Years (2 of 2 - PPSV23 or PCV20) 10/02/2020 10/02/2019 RSV Immunization or 60+ Years (1 - 1-dose 75+ series) 2021 COVID-19 Vaccine ( season) 2024 04/23/2022, 08/25/2021, 02/01/2021, Additional history exists Influenza Adult (#1) 2024 09/21/2023, 08/11/2022, 08/25/2021, Additional history exists PHQ-2 (Physician Nikolski) 11/07/2024 10/12/2024 DTaP, Tdap and Td Vaccines (2 - Td or Tdap) 10/05/2026 10/05/2016 Meningococcal B Vaccine Aged Out No l onger eligible based on patient's age to complete this topic Meningococcal Vaccine Aged Out No nikita bailey eligible based on patient's age to complete this topic RSV Immunizations Under 20 Months Aged Out No longer eligible based on patient's age to complete this topic Goals Goal Patient Goal Type Associated Problems Recent Progress Patient-Stated? Author Patient will return to prior living situation and remain independent in ADLs upon discharge from hospital Lifestyle No Shama Dudley RN Procedures Procedure Name Priority Date/Time Associated Diagnosis Comments XR CHEST PA+LAT STAT 11/30/2024 7:31 PM SHEET FED PRINTER PRO-BRAIN NATRIURETIC PEPTIDE STAT 11/30/2024 6:46 PM SHEET FED PRINTER COMPREHENSIVE METABOLIC PANEL STAT 11/30/2024 6:46 PM SHEET FED PRINTER CBC W/DIFF AUTOMATED STAT 11/30/2024 6:46 PM SHEET FED PRINTER INFLUENZA A & B STAT 11/30/2024 5:35 PM SHEET FED PRINTER CORONAVIRUS (COVID 19) STAT 5:35 PM SHEET FED PRINTER POCT GLUCOSE - RUELAS DOCKED DEVICE Routine 11/21/2024 11:17 AM SHEET FED PRINTER POCT GLUCOSE - RUELAS DOCKED DEVICE Routine 11/21/2024 7:14 AM SHEET FED PRINTER BASIC METABOLIC PANEL Routine 11/21/2024 6:50 AM SHEET FED PRINTER POCT GLUCOSE - RUELAS DOCKED DEVICE Routine 11/20/2024 8:57 PM SHEET FED PRINTER POCT GLUCOSE - RUELAS DOCKED DEVICE Routine 11/20/2024 4:03 PM SHEET FED PRINTER CBC W/DIFF AUTOMATED Routine 11/20/2024 3:14 PM SHEET FED PRINTER POCT GLUCOSE - RUELAS DOCKED DEVICE Routine 11/20/2024 11:39 AM SHEET FED PRINTER POCT GLUCOSE - RUELAS DOCKED DEVICE Routine 11/20/2024 8:06 AM SHEET FED PRINTER POCT GLUCOSE - RUELAS DOCKED DEVICE Routine 11/20/2024 7:38 AM SHEET FED PRINTER POCT GLUCOSE - RUELAS DOCKED DEVICE Routine 11/19/2024 8:15 PM SHEET FED PRINTER POCT GLUCOSE - RUELAS DOCKED DEVICE Routine 11/19/2024 4:19 PM SHEET FED PRINTER POCT GLUCOSE - RUELAS DOCKED DEVICE Routine 11/19/2024 3:41 PM SHEET FED PRINTER POCT GLUCOSE - RUELAS DOCKED DEVICE Routine 11/19/2024 12:03 PM SHEET FED PRINTER POCT GLUCOSE - RUELAS DOCKED DEVICE Routine 11/19/2024 11:29 AM SHEET FED PRINTER POCT GLUCOSE - RUELAS DOCKED DEVICE Routine 11/19/2024 7:12 AM SHEET FED PRINTER BASIC METABOLIC PANEL Routine 11/19/2024 5:57 AM SHEET FED PRINTER PROCALCITONIN (PCT) Routine 11/19/2024 5 :57 AM SHEET FED PRINTER CBC W/DIFF AUTOMATED Routine 11/19/2024 5:57 AM SHEET FED PRINTER CULTURE, BACTERIA, BLOOD STAT 11/19/2024 5:56 AM SHEET FED PRINTER POCT GLUCOSE - RUELAS DOCKED DEVICE Routine 11/18/2024 7:53 PM SHEET FED PRINTER LACTIC ACID W REFLEX (SEPSIS) STAT 11/18/2024 3:[address] CHEST WO CON STAT 11/18/2024 3:[address] FACIAL BONES WO CON STAT 3:18 PM SHEET FED PRINTER URINALYSIS, AUTO, COMPLETE STAT 11/18/2024 3:03 PM SHEET FED PRINTER BLOOD GAS, ARTERIAL LAB STAT 11/18/19 2:52 PM SHEET FED PRINTER ECG 12-LEAD Routine 11/18/2024 2:37 PM SHEET FED PRINTER Pneumonia CORONAVIRUS (COVID 19) STAT 2:08 PM SHEET FED PRINTER INFLUENZA A & B STAT 11/18/2024 2:08 PM SHEET FED PRINTER RESP SYNCYTIAL VIRUS STAT 11/18/2024 2:08 PM SHEET FED PRINTER TSH W/REFLEX STAT 11/18/2024 2:02 PM SHEET FED PRINTER MAGNESIUM STAT 11/18/2024 2:02 PM SHEET FED PRINTER PRO-BRAIN NATRIURETIC PEPTIDE STAT 11/18/2024 2:02 PM SHEET FED PRINTER LIPASE STAT 11/18/2024 2:02 PM SHEET FED PRINTER CK (CPK) STAT 11/18/2024 2:02 PM SHEET FED PRINTER TROPONIN, QUANT STAT 11/18/2024 2:02 PM SHEET FED PRINTER COMPREHENSIVE METABOLIC PANEL STAT 11/18/2024 2:02 PM SHEET FED PRINTER PARTIAL THROMBOPLASTIN TIME,PTT STAT 11/18/2024 2:02 PM SHEET FED PRINTER PROTHROMBIN TIME, VENOUS STAT 11/18/2024 2:02 PM SHEET FED PRINTER CBC W/DIFF AUTOMATED STAT 11/18/2024 2:02 PM SHEET FED PRINTER from Last 3 Months Results * XR CHEST PA+LAT (11/30/2024 7:31 PM SHEET FED PRINTER) Anatomical Region Laterality Modality Chest Radiographic Mayi ging 11/30/2024 7:33 PM SHEET FED PRINTER Impressions 11/30/2024 7:36 PM SHEET FED PRINTER IMPRESSION: 1. ??No radiographic evidence of active disease in the chest. 2. ??When comparing chest x-ray to CT there appears to be interval resolution of previously seen bilateral been noninfectious process. Referred By: ?? Interpreted By: Marjan Mclaughlin DO, 11/30/2024 7:33 PM Narrative 11/30/2024 7:36 PM SHEET FED PRINTER [facility] [address] [place] [address] CLINICAL INDICATION: 79-year-old female. Cough, dyspnea. 11/30/2024 7:27 PM, Adeline Allen A: sob and cough x 3 weeks. dx w/ pneumonia 3 weeks ago TECHNIQUE: Upright AP and lateral views of the chest on the stretcher COMPARISON: CT chest without contrast 11/18/2024 FINDINGS: Stable borderline cardiomegaly. ??Pulmonary vascular distribution is unremarkable. The lungs are now clear of infiltrates. ??No pleural effusion or consolidation with special attention to the areas of previous patchy groundglass opacities in the bilateral mid lung. ??No pleural effusion or areas of consolidation or new lobar infiltrate. Bony thorax unremarkable. Procedure Note Marjan Mclaughlin MD - 11/30/2024 [facility] [address] [place] [address] CLINICAL INDICATION: 79-year-old female. Cough, dyspnea. 11/30/2024 7:27 PM, Adeline Allen A: sob and cough x 3 weeks. dx w/pneumonia 3 weeks ago TECHNIQUE: Upright AP and lateral views of the chest on the stretcher COMPARISON: CT chest without contrast 11/18/2024 FINDINGS: Stable borderline cardiomegaly. Pulmonary vascular distribution isunremarkable. The lungs are now clear of infiltrates. No pleural effusion orconsolidation with special attention to the areas of previous patchygroundglass opacities in the bilateral mid lung. No pleural effusion orareas of consolidation or new lobar infiltrate. Bony thorax unremarkable. IMPRESSION: 1. No radiographic evidence of active disease in the chest. 2. When comparing chest x-ray to CT there appears to be intervalresolution of previously seen bilateral been noninfectious process. Referred By: Interpreted By: Marjan Mclaughlin DO, 11/30/2024 7:33 PM Shira Lira MD GENERAL IMAGING Final Resu lt * (ABNORMAL) PRO-BRAIN NATRIURETIC PEPTIDE (11/30/2024 6:46 PM SHEET FED PRINTER) Only the most recent of2 resultswithin the time period is included. PRO-B TYPE NATRIURETIC PEPTIDE 2,703(H) <450 PG/ML 11/30/2024 7:27 PM SHEET FED PRINTER [facility] Comment: CUT POINTS ESTABLISHED BY [employer]ATIONAL [employer] ON NT PROBNP (ICON) STUDY (2006). AGE INDEPENDENT: <300 PG/ML HAS A 99% NEGATIVE PREDICTIVE VALUE FOR EXCLUDING ACUTE CHF <50 YEARS: >450 PG/ML IS CONSISTENT WITH ACUTE CHF 50-75 YEARS: >900 PG/ML IS CONSISTENT WITH ACUTE CHF >75 YEARS: >1800 PG/ML IS CONSISTENT WITH ACUTE CHF IN PATIENTS WITH RENAL INSUFFICIENCY (GFR <60), >1200 PG/ML YIELDS A DIAGNOSTIC SENSITIVITY AND SPECIFICITY OF 89% AND 72% FOR ACUTE CHF. 11/30/2024 6:46 PM SHEET FED PRINTER Shira Lira MD LABORATORY Final Resu lt [facility] [address] [place] [address], [place] [phone] * (ABNORMAL) COMPREHENSIVE METABOLIC PANEL (11/30/2024 6:46 PM SHEET FED PRINTER) Only the most recent of2 resultswithin the time period is included. GLUCOSE 334(H) 70 - 99 MG/DL 11/30/2024 7:27 PM [facility] BUN 86(H) 7 - 18 MG/DL 11/30/2024 7:27 PM [facility] CREATININE S/P/B 4.03(H) 0.55 - 1.02 MG/DL 11/30/2024 7:27 PM [facility] SODIUM S/P/B 140 136 - 145 MMOL/L 11/30/2024 7:27 PM [facility] POTASSIUM S/P/B 5.0 3.5 - 5.1 MMOL/L 11/30/2024 7:27 PM [facility] CHLORIDE S/P/B 105 100 - 108 MMOL/L 11/30/2024 7:27 PM [facility] CO2 26.7 21 - 32 MMOL/L 11/30/2024 7:27 PM [facility] CALCIUM S/P/B 8.2(L) 8.5 - 10.1 MG/DL 11/30/2024 7:27 PM [facility] BILIRUBIN TOTAL S/P/B 0.5 0.2 - 1.2 MG/DL 11/30/2024 7:27 PM [facility] TOTAL PROTEIN S/P/B 5.6(L) 6.4 - 8.2 G/DL 11/30/2024 7:27 PM [facility] ALBUMIN S/P/B 2.6(L) 3.4 - 5.0 G/DL 11/30/2024 7:27 PM [facility] AST 27 15 - 37 U/L 11/30/2024 7:27 PM [facility] ALT 25 14 - 55 U/L 11/30/2024 7:27 PM [facility] ALKALINE PHOSPHATASE S/P/B 73 50 - 136 U/L 11/30/2024 7:27 PM [facility] ANION GAP 8.3 5 - 15 MMOL/L 11/30/2024 7:27 PM [facility] BUN CREATININE RATIO 21.3 6 - 26 11/30/2024 7:27 PM [facility] A/G RATIO 0.9(L) 1.0 - 2.0 RATIO 11/30/2024 7:27 PM [facility] GFR ESTIMATE 11(L) >90 ML/MIN/1.7 3 M2 11/30/2024 7:27 PM [facility] Comment: NOTE: eGFR is not calculated for patients <18 years of age. This is an estimated GFR calculation using the new CKD EPI creatinine equation without race and so does not require a correction factor for race. This estimated GFR should not be used for calculating drug doses. 11/30/2024 6:46 PM SHEET FED PRINTER us Shira Lira MD LABORATORY Final Resu lt [facility] [address] [place] [address], * (ABNORMAL) CBC W/DIFF AUTOMATED (11/30/2024 6:46 PM SHEET FED PRINTER) Only the most recent of4 resultswithin the time period is included. WBC 3.86(L) 4.4 - 11.0 x10'3/uL 11/30/2024 7:17 PM [facility] RBC 2.91(L) 4.50 - 5.10 x10'6/uL 11/30/2024 7:17 PM [facility] HGB 9.7(L) 12.3 - 15.3 G/DL 11/30/2024 7:17 PM [facility] HCT 30.0(L) 35.9 - 44.6 % 11/30/2024 7:17 PM [facility] MCV 103.1(H) 80.0 - 96.0 FL 11/30/2024 7:17 PM [facility] MCH 33.3(H) 25.3 - 30.9 PG 11/30/2024 7:17 PM [facility] MCHC 32.3 31.0 - 34.1 G/DL 11/30/2024 7:17 PM [facility] RDW 16.7(H) 12.4 - 15.1 % 11/30/2024 7:17 PM [facility] PLT 260 151 - 353 x10'3/uL 11/30/2024 7:17 PM [facility] MPV 10.3 9.6 - 12.0 FL 11/30/2024 7:17 PM [facility] RBC MORPHOLOGY NORMAL 11/30/2024 7:17 PM [facility] PLT MORPH. NORMAL 11/30/2024 7:17 PM [facility] WBC MORPHOLOGY NORMAL 11/30/2024 7:17 PM [facility] LYMPHOCYTES % 16.8 15.8 - 45.0 % 11/30/2024 7:17 PM [facility] NEUTROPHILS % 77.5(H) 42.1 - 71.9 % 11/30/2024 7:17 PM [facility] MONOCYTES % 5.2(L) 5.7 - 12.5 % 11/30/2024 7:17 PM [facility] EOSINOPHILS 0.0 0.0 - 5.6 % 11/30/2024 7:17 PM [facility] BASOPHILS 0.0 0.0 - 1.3 % 11/30/2024 7:17 PM SHEET FED PRINTER [facility] ABS. NEUTROPHILS 2.99 1.40 - 6.00 x10'3/uL 11/30/2024 7:17 PM SHEET FED PRINTER [facility] IMMATURE GRANS % 0.5 0.0 - 0.5 % 11/30/2024 7:17 PM SHEET FED PRINTER [facility] ABS. LYMPHOCYTES 0.65(L) 0.80 - 4.70 x10'3/uL 11/30/2024 7:17 PM SHEET FED PRINTER [facility] 11/30/2024 6:46 PM SHEET FED PRINTER Shira Lira MD LABORATORY Final Resu lt [facility] [address] [place] [id number], * CORONAVIRUS (COVID-19) MOLECULAR (11/30/2024 5:35 PM SHEET FED PRINTER) Only the most recent of2 resultswithin the time period is included. CORONAVIRUS SARS COV 2 RNA NEGATIVE NEGATIVE 11/30/2024 6:11 PM SHEET FED PRINTER [facility] Comment: NEGATIVE RESULTS DO NOT RULE OUT COVID 19 AND SHOULD NOT BE USED THE SOLE BASIS FOR TREATMENT OR PATIENT MANAGEMENT DECISIONS, INCLUDING INFECTION CONTROL DECISIONS. NEGATIVE RESULTS SHOULD BE CONSIDERED IN THE CONTEXT OF A PATIENT'S RECENT EXPOSURES, HISTORY AND THE PRESENCE OF CLINICAL SIGNS AND SYMPTOMS CONSISTENT WITH COVID 19. THE ID NOW COVID-19 2.0 TEST HAS BEEN AUTHORIZED BY THE FDA UNDER EAU FOR USE BY AUTHORIZED LABORATORIES. PERFORMED BY NUCLEIC ACID AMPLIFICATION FOR MOLECULAR QUALITATIVE DETECTION OF SARS-COV-2. SPECIMEN TYPE NASAL 11/30/2024 5:38 PM SHEET FED PRINTER [facility] NASOPHARYNGEAL SWAB / Unknown 11/30/2024 5:35 PM SHEET FED PRINTER Shira Lira MD MICROBIOLOGY - GENERAL ORD ERABLES Final Result Performing Organization Address [facility] Co de Phone Number [facility] [address] [place] [address], [place] [phone] * INFLUENZA A & B (11/30/2024 5:35 PM SHEET FED PRINTER) Only the most recent of2 resultswithin the time period is included. SPECIMEN TYPE NASOPHARYNX 11/30/2024 5:44 PM SHEET FED PRINTER [facility] INFLUENZA A NEGATIVE NEGATIVE 11/30/2024 6:01 PM SHEET FED PRINTER [facility] INFLUENZA B NEGATIVE NEGATIVE 11/30/2024 6:01 PM SHEET FED PRINTER [facility] NASOPHARYNGEAL SWAB / Unknown 11/30/2024 5:35 PM SHEET FED PRINTER Shira Lira MD MICROBIOLOGY - GENERAL ORD ERABLES Final Result Performing Organization Address [facility] Co de Phone Number [facility] [address] [place] [address], [place] [phone] * (ABNORMAL) POCT glucose (11/21/2024 11:17 AM SHEET FED PRINTER) Only the most recent of14 resultswithin the time period is included. GLUCOSE POC 219(H) 70 - 110 mg/dL 11/21/2024 4:53 PM SHEET FED PRINTER [facility] 11/21/2024 11:1 7 AM SHEET FED PRINTER Kole Guzman MD POCT ORDERABLES - DEVICE Final Result Performing Organization Address [facility] Co de Phone Number [facility] [address] [place] [address], [place] [phone] * (ABNORMAL) BASIC METABOLIC PANEL (11/21/2024 6:50 AM SHEET FED PRINTER) Only the most recent of2 resultswithin the time period is included. [facility] Signature GLUCOSE 216(H) 70 - 99 MG/DL 11/21/2024 7:50 AM [facility] BUN 53(H) 7 - 18 MG/DL 11/21/2024 7:50 AM [facility] CREATININE S/P/B 3.63(H) 0.55 - 1.02 MG/DL 11/21/2024 7:50 AM [facility] SODIUM S/P/B 140 136 - 145 MMOL/L 11/21/2024 7:50 AM [facility] POTASSIUM S/P/B 5.2(H) 3.5 - 5.1 MMOL/L 11/21/2024 7:50 AM [facility] CHLORIDE S/P/B 106 100 - 108 MMOL/L 11/21/2024 7:50 AM [facility] CO2 25.8 21 - 32 MMOL/L 11/21/2024 7:50 AM [facility] CALCIUM S/P/B 8.9 8.5 - 10.1 MG/DL 11/21/2024 7:50 AM [facility] ANION GAP 8.2 5 - 15 MMOL/L 11/21/2024 7:50 AM [facility] BUN CREATININE RATIO 14.6 6 - 26 11/21/2024 7:50 AM [facility] GFR ESTIMATE 12(L) >90 ML/MIN/1.7 3 M2 11/21/2024 7:50 AM [facility] Comment: NOTE: eGFR is not calculated for patients <18 years of age. This is an estimated GFR calculation using the new CKD EPI creatinine equation without race and so does not require a correction factor for race. This estimated GFR should not be used for calculating drug doses. 11/21/2024 6:50 AM SHEET FED PRINTER us Swapnil Gilliland MD LABORATORY Final Result [facility] [address] [facility] [place] [address], * PROCALCITONIN (PCT) (11/19/2024 5:57 AM SHEET FED PRINTER) Procalcitonin 0.05 0.00 - 0.25 NG/ML 11/19/2024 10:09 AM SHEET FED PRINTER [facility] Comment: PROCALCITONIN INTERPRETATION GUIDELINES LOWER RESPIRATORY TRACT INFECTIONS (LRTI): USE OF PCT IN INPATIENT OR EMERGENCY SITUATION INITIATION OF ANTIBIOTICS PCT VALUE ? INTERPRETATION <0.10 NG/ML ?ANTIBIOTIC THERAPY ? STRONGLY DISCOURAGED. 0.10-0.25 NG/ML ?ANTIBIOTIC THERAPY ? DISCOURAGED. 0.26-0.50 NG/ML ?ANTIBIOTIC THERAPY ? ENCOURAGED. >0.50 NG/ML ?ANTIBIOTIC THERAPY ? STRONGLY ENCOURAGED. DISCONTINUE ANTIBIOTICS PCT LESS THAN OR EQUAL TO 0.25 NG/ML OR DELTA PCT >80 PERCENT DELTA PCT= PCT(PEAK)-PCT(CURRENT)/PCT(PEAK)X100% STUDIES HAVE EVALUATED PCT PROTOCOLS IN THESE PATIENTS AND FOUND THAT FOR PATIENTS WHO ARE CLINICALLY STABLE AND ARE TREATED AT THE ED OR ARE HOSPITALIZED, THE INITIATION OF ANTIBIOTIC THERAPY SHOULD BE BASED ON CLINICAL GROUNDS AND A PCT VALUE OF GREATER THAN OR EQUAL TO 0.26 NG/ML. IF PCT REMAINS LOWER, ANTIBIOTICS CAN BE WITHHELD AND PATIENTS CAN BE REASSESSED CLINICALLY WITHOUT SAFETY CONCERNS. IF PATIENTS ARE CLINICALLY STABLE, AN ALTERNATIVE DIAGNOSIS SHOULD BE CONSIDERED. IF PATIENTS ARE UNSTABLE, THEN ANTIBIOTICS MAY BE CONSIDERED. IF PATIENTS DO NOT IMPROVE IN THE SHORT FOLLOW UP PERIOD OF 6 TO 12 HOURS, CLINICAL RE-EVALUATION AND RE-MEASUREMENT OF PCT IS RECOMMENDED. 11/19/2024 5:57 AM SHEET FED PRINTER Swapnil Gilliland MD LABORATORY Final Result Performing Organization Address [facility] Co de Phone Number [facility] [address] [place] [address], [place] [phone] * BLOOD CULTURE #1 (11/19/2024 5:56 AM SHEET FED PRINTER) SPEC DESCRIPTION BLOOD-PEDIA TRIC VOLUME 11/18/2024 5:50 PM SHEET FED PRINTER [facility] SPECIAL REQUESTS NO SPECIAL REQUEST 11/18/2024 5:50 PM SHEET FED PRINTER [facility] CULTURE RESULT NO GROWTH 5 DAYS 11/24/2024 7:30 AM SHEET FED PRINTER [facility] BLOOD SPECIMEN OBTAINED FOR BLOOD CULTURE / Unknown 11/19/2024 5:56 AM SHEET FED PRINTER 11/19/2024 5:57 AM SHEET FED PRINTER German Ruiz MD MICROBIOLOGY - GENERAL ORDERABL ES Final Result Performing Organization Address [facility] Co de Phone Number [facility] [address] [place] [address], [place] [phone] [facility] [address] [place] [address], [place] [phone] * LACTIC ACID W REFLEX (SEPSIS) (11/18/2024 3:38 PM SHEET FED PRINTER) LACTIC ACID VENOUS 0.6 0.4 - 2.0 MMOL/L 11/18/2024 4:05 PM SHEET FED PRINTER [facility] 11/18/2024 3:38 PM SHEET FED PRINTER us German Ruiz MD LABORATORY Final Result Performing Organization Address City/[facility]/ZIP Co de Phone Number [facility] [address] [place] [phone], * CT CHEST WO CON (11/18/2024 3:18 PM SHEET FED PRINTER) Anatomical Region Laterality Modality Chest Computed Tomogra phy 11/18/2024 4:00 PM SHEET FED PRINTER Impressions 11/18/2024 4:05 PM SHEET FED PRINTER Impression: 1. ??There are mild patchy groundglass opacities in the right middle lobe, and similar-appearing opacities in the central aspect of the left upper lobe, likely infectious in etiology. 2. ??Additional chronic findings as described. Referred By: ?? Interpreted By: Lawson Ruth MD, 11/18/2024 4:00 PM Narrative 11/18/2024 4:05 PM SHEET FED PRINTER [facility] [address] [place] [address] Examination: CT CHEST WO CON Exam time: 11/18/2024 2:08 PM Indication: Cough and wheezing Comparison:None Technique: Technical comments: Standard technique. Dose reduction: This CT exam was performed using one or more of the following dose reduction techniques: Automated exposure control, adjustment of the mA and/or kV according to patient size, and/or use of iterative reconstruction technique. Findings: There are mild patchy groundglass opacities in the right middle lobe, likely infectious in etiology. ??There are similar-appearing opacities in the central aspect of the left upper lobe. ??Cystic bronchiectatic changes are noted in the posterior aspect of the right upper lobe. ??There is linear fibroatelectasis in the left lower lobe. ??No pleural effusion or pneumothorax. ??The central airways are patent. ??There is no definite lymphadenopathy. ??No pericardial effusion. ??There are coronary artery calcifications. ??There is a small hiatal hernia. ??Images of the upper abdomen demonstrate cholelithiasis. ??Bilateral renal parenchymal thinning is noted. ??There are bilateral renal cysts. ??No acute osseous abnormality. Procedure Note Lawson Ruth MD - 11/18/2024 [facility] [address] [place] [address] Examination: CT CHEST WO CON Exam time: 11/18/2024 2:08 PM Indication: Cough and wheezing Comparison:None Technique: Technical comments: Standard technique. Dose reduction: This CT exam was performed using one or more of thefollowing dose reduction techniques: Automated exposure control,adjustment of the mA and/or kV according to patient size, and/or use ofiterative reconstruction technique. Findings: There are mild patchy groundglass opacities in the right middlelobe, likely infectious in etiology. There are similar-appearingopacities in the central aspect of the left upper lobe. Cysticbronchiectatic changes are noted in the posterior aspect of the rightupper lobe. There is linear fibroatelectasis in the left lower lobe. Nopleural effusion or pneumothorax. The central airways are patent. Thereis no definite lymphadenopathy. No pericardial effusion. There arecoronary artery calcifications. There is a small hiatal hernia. Imagesof the upper abdomen demonstrate cholelithiasis. Bilateral renalparenchymal thinning is noted. There are bilateral renal cysts. No acuteosseous abnormality. Impression: 1. There are mild patchy groundglass opacities in the right middle lobe,and similar-appearing opacities in the central aspect of the left upperlobe, likely infectious in etiology. 2. Additional chronic findings as described. Referred By: Interpreted By: Lawson Ruth MD, 11/18/2024 4:00 PM German Ruiz MD CT Final Result * CT FACIAL BONES WO CON (11/18/2024 3:18 PM SHEET FED PRINTER) Anatomical Region Laterality Modality Facial Computed Tomogra phy 11/18/2024 4:05 PM SHEET FED PRINTER Impressions 11/18/2024 4:08 PM SHEET FED PRINTER IMPRESSION: 1. ??There is no definite facial bone fracture noted given the limits of motion artifact. 2. ??There is anterior subluxation of the right and left mandible relative to the temporal mandibular joints of uncertain clinical significance. Referred By: ?? Interpreted By: Lawson Ruth MD, 11/18/2024 4:05 PM Narrative 11/18/2024 4:08 PM SHEET FED PRINTER [facility] [address] [place] [address] Examination: CT FACIAL BONES WO CON Exam time: 11/18/2024 2:08 PM INDICATION: Jaw pain since a fall one week ago COMPARISON: None TECHNIQUE: CT examination of the facial bones was performed without contrast. ??Axial and multiplanar reformatted images were obtained. A dose lowering technique was used for this procedure, which may include, but is not limited to, dose reduction technique, automated exposure control, the use of iterative reconstruction, and ALARA (As Low As Reasonably Achievable) / Image Gently techniques. FINDINGS: Motion artifact is noted. ??The pterygoid plates are intact. ??The orbital rims are intact. ??There is no definite facial bone fracture noted given the limits of motion artifact. ??The mastoid air cells are clear. ??There are a few opacified left anterior ethmoid air cells, and there are small bilateral maxillary sinus mucosal retention cysts. ??There is anterior subluxation of the right and left mandible relative to the temporal mandibular joints of uncertain clinical significance. Procedure Note Lawson Ruth MD - 11/18/2024 [facility] [address] [place] [id number] Examination: CT FACIAL BONES WO CON Exam time: 11/18/2024 2:08 PM INDICATION: Jaw pain since a fall one week ago COMPARISON: None TECHNIQUE: CT examination of the facial bones was performed withoutcontrast. Axial and multiplanar reformatted images were obtained. A doselowering technique was used for this procedure, which may include, but isnot limited to, dose reduction technique, automated exposure control, theuse of iterative reconstruction, and ALARA (As Low As ReasonablyAchievable) / Image Gently techniques. FINDINGS: Motion artifact is noted. The pterygoid plates are intact. Theorbital rims are intact. There is no definite facial bone fracture notedgiven the limits of motion artifact. The mastoid air cells are clear.There are a few opacified left anterior ethmoid air cells, and there aresmall bilateral maxillary sinus mucosal retention cysts. There isanterior subluxation of the right and left mandible relative to thetemporal mandibular joints of uncertain clinical significance. IMPRESSION: 1. There is no definite facial bone fracture noted given the limits ofmotion artifact. 2. There is anterior subluxation of the right and left mandible relativeto the temporal mandibular joints of uncertain clinical significance. Referred By: Interpreted By: Lawson Ruth MD, 11/18/2024 4:05 PM German Ruiz MD CT Final Result * (ABNORMAL) URINALYSIS, AUTO, COMPLETE (11/18/2024 3:03 PM SHEET FED PRINTER) COLOR (U) YELLOW 11/18/2024 3:21 PM [facility] TRANSPARENCY CLEAR 11/18/2024 3:21 PM [facility] SPECIFIC GRAVITY (U) 1.015 1.000 - 1.030 11/18/2024 3:21 PM [facility] U PH 5.5 5.0 - 9.0 11/18/2024 3:21 PM [facility] LEUKOCYTES (U) 1+(A) NEGATIVE 11/18/2024 3:21 PM [facility] NITRITES NEGATIVE NEGATIVE 11/18/2024 3:21 PM [facility] PROTEIN RANDOM (U) 1+(A) NEGATIVE 11/18/2024 3:21 PM [facility] GLUCOSE (U) NEGATIVE NEGATIVE 11/18/2024 3:21 PM [facility] KETONES MG/DL (U) NEGATIVE NEGATIVE 11/18/2024 3:21 PM SHEET FED PRINTER [facility] BILIRUBIN (U) NEGATIVE NEGATIVE 11/18/2024 3:21 PM [facility] BLOOD (U) NEGATIVE NEGATIVE 11/18/2024 3:21 PM [facility] WBC/HPF 5-10 0 - 5 /HPF 11/18/2024 3:21 PM [facility] RBC/HPF NONE SEEN 0 - 5 /HPF 11/18/2024 3:21 PM [facility] EPI/HPF RARE /HPF 11/18/2024 3:21 PM [facility] OTHER CASTS (U) RARE /LPF 3:21 PM [facility] Comment:HYALINE URINE SPECIMEN OBTAINED BY CLEAN CATCH PROCEDURE / Unknown 11/18/2024 3:03 PM [facility] us German Ruiz MD URINE ORDERABLES Final Result [facility] [address] [place] [address], * (ABNORMAL) ARTERIAL BLOOD GAS (11/18/2024 2:52 PM SHEET FED PRINTER) PH ARTERIAL 7.40 7.35 - 7.45 11/18/2024 3:06 PM [facility] PCO2 39.0 35 - 45 MMHG 11/18/2024 3:06 PM [facility] PO2 80.0(L) 83 - 108 MMHG 11/18/2024 3:06 PM [facility] TOTAL CO2 ARTERIAL 25.4(H) 19.0 - 24.0 MMOL/L 11/18/2024 3:06 PM [facility] BASE DEFICIT 0.5 0 - 2 MMOL/L 11/18/2024 3:06 PM SHEET FED PRINTER [facility] O2 SATURATION 96 94.0 - 98.0 % 11/18/2024 3:06 PM [facility] BICARB ARTERIAL 24.2 21.0 - 28.0 MMOL/L 11/18/2024 3:06 PM [facility] GENEVA TEST POSITIVE 11/18/2024 3:04 PM [facility] O2 ADMIN ARTERIAL ROOM AIR 11/18/2024 3:04 PM [facility] DRAW SITE ARTERIAL DRAWN FROM LEFT WRIST 11/18/2024 3:04 PM [facility] 11/18/2024 2:52 PM SHEET FED PRINTER us German Ruiz MD LABORATORY Final Result Performing Organization Address City/State/[facility] de Phone Number [facility] [address] [place] [address], * ECG 12 lead (11/18/2024 2:37 PM SHEET FED PRINTER) 11/18/2024 2:37 PM SHEET FED PRINTER Narrative [facility] ([facility]) RAD - 11/19/2024 10:44 AM SHEET FED PRINTER [facility] ? Test Date: ?2024-11-18 Pat Name: ? HEATH FAVIOLA ? Department: ?? 85 ? Room: ? 104 Gender: ? Female ? Electrician Sound: ?? : ?1945 ? Requested By: GERMAN RUIZ Order Number: [id number] ? Reading MD: ?? Constantino Carpenter ? Measurements Intervals ?[place] ? Rate: ? 60 ? P: ?246 [place]: ? 130 ?QRS: ?-52 QRSD: ? 157 ?T: ?73 QT: ? 482 ? QTc: ?483 ? Interpretive Statements Sinus Rhythm First Degree AV Block LEFT AXIS DEVIATION ??[QRS AXIS < -30] LEFT BUNDLE BRANCH BLOCK ??[120+ ms QRS DURATION, 80+ ms Q/S IN V1/V2, 85+ ms R IN I/aVL/V5/V6] No previous ECG available for comparison T FED PRINTER Procedure Note Constantino Carpenter MD - 11/19/2024 [facility] Test Date: 2024-11-18 Pat Name: HEATH SALMERON Department: 85 Room: [facility] Gender: Female Electrician Sound: : 1945 Requested By: GERMAN RUIZ Order Number: [id number] Reading MD: Constantino Carpenter Measurements Intervals [place] Rate: 60 P: 246 [place]: 130 QRS: -52 QRSD: 157 T: 73 QT: 482 QTc: 483 Interpretive Statements Sinus Rhythm First Degree AV Block LEFT AXIS DEVIATION [QRS AXIS < -30] LEFT BUNDLE BRANCH BLOCK [120+ ms QRS DURATION, 80+ ms Q/S IN V1/V2, 85+ms R IN I/aVL/V5/V6] No previous ECG available for comparison T FED PRINTER us German Ruiz MD ECG ORDERABLES Final Result Performing Organization Address [facility] Co de Phone Number [facility]) RAD * RESP SYNCYTIAL VIRUS (11/18/2024 2:08 PM SHEET FED PRINTER) SPECIMEN TYPE NASOPHARYNGEAL SWAB 11/18/2024 2:08 PM SHEET FED PRINTER [facility] RAPID RSV NEGATIVE NEGATIVE 11/18/2024 2:48 PM SHEET FED PRINTER [facility] NASOPHARYNGEAL SWAB / Unknown 11/18/2024 2:08 PM SHEET FED PRINTER us German Ruiz MD MICROBIOLOGY - GENERAL ORDERABL ES Final Result Performing Organization Address [facility]/ZIP Co de Phone Number [facility] [address] [place] [address], [place] [phone] * TSH W/REFLEX (11/18/2024 2:02 PM SHEET FED PRINTER) TSH 1.795 0.358 - 3.74 uIU/ML 11/18/2024 2:55 PM SHEET FED PRINTER [facility] Comment: HIGH DOSES OF BIOTIN MAY INTERFERE WITH THIS TEST RESULT. CORRELATION TO CLINICAL HISTORY AND PRESENTATION RECOMMENDED. FREE T4 NOT INDICATED 11/18/2024 2:02 PM SHEET FED PRINTER us German Ruiz MD LABORATORY Final Result [facility] [address] [place] [address], [place] [phone] * (ABNORMAL) PARTIAL THROMBOPLASTIN TIME,PTT (11/18/2024 2:02 PM SHEET FED PRINTER) PTT 57.3(H) 27.0 - 36.8 SEC 11/18/2024 2:40 PM SHEET FED PRINTER [facility] 11/18/2024 2:02 PM SHEET FED PRINTER us German Ruiz MD LABORATORY Final Result Performing Organization Address City/[facility]/ZIP Co de Phone Number [facility] [address] [place] [address], [place] [phone] * (ABNORMAL) PROTIME/INR, VENOUS (11/18/2024 2:02 PM SHEET FED PRINTER) PROTIME 22.5(H) 9.1 - 12.4 SEC 11/18/2024 2:40 PM SHEET FED PRINTER [facility] INR 2.0 11/18/2024 2:40 PM SHEET FED PRINTER [facility] Comment: Recommend INR ranges for Oral Anticoagulant Therapy: Mechanical Cardiac Values 2.5-3.5 All others indication 2.0-3.0 11/18/2024 2:02 PM SHEET FED PRINTER us German Ruiz MD LABORATORY Final Result Performing Organization Address [facility] Co de Phone Number [facility] [address] [place] [address], [place] [phone] * TROPONIN, QUANT (11/18/2024 2:02 PM SHEET FED PRINTER) TROPONIN I HIGH SENSITIVITY 26 0 - 50 ng/L 11/18/2024 2:49 PM SHEET FED PRINTER [facility] Comment: HIGH DOSES OF BIOTIN, TROPONIN-SPECIFIC AUTOANTIBODIES, AND ANTIBODY THERAPY CONTAINING HAMA MAY INTERFERE WITH THIS TEST RESULT. CORRELATION TO CLINICAL HISTORY AND PRESENTATION RECOMMENDED. 11/18/2024 2:02 PM SHEET FED PRINTER us German Ruiz MD LABORATORY Final Result Performing Organization Address [facility] Co de Phone Number [facility] [address] [place] [address], [place] [phone] * MAGNESIUM (11/18/2024 2:02 PM SHEET FED PRINTER) MAGNESIUM 2.3 1.8 - 2.4 MG/DL 11/18/2024 2:55 PM SHEET FED PRINTER [facility] 11/18/2024 2:02 PM SHEET FED PRINTER us German Ruiz MD LABORATORY Final Result Performing Organization Address [facility] Co de Phone Number [facility] [address] [place] [address], [place] [phone] * LIPASE (11/18/2024 2:02 PM SHEET FED PRINTER) LIPASE 41 16 - 77 UNITS/L 11/18/2024 2:55 PM SHEET FED PRINTER [facility] 11/18/2024 2:02 PM SHEET FED PRINTER us German Ruiz MD LABORATORY Final Result Performing Organization Address City/[facility]/ZIP Co de Phone Number [facility] [address] [place] [address], [place] [phone] * CK (CPK) (11/18/2024 2:02 PM SHEET FED PRINTER) CPK 71 26 - 192 U/L 11/18/2024 2:55 PM SHEET FED PRINTER [facility] 11/18/2024 2:02 PM SHEET FED PRINTER German Ruiz MD LABORATORY Final Result Performing Organization Address [facility] Co de Phone Number [facility] [address] [place] [address], [place] [phone] from Last 3 Months Insurance Advance Directives * Full Code (Latest Code Status on File) Date Activated Date Inactivated Comments 11/18/2024 6:41 PM 11/21/2024 3:34 PM Care Teams Internet Architect Relationship Specialty Start Date End Date Oh Goode MD [address] [place] [address] PCP - General FAMILY PRACTICE 01/26/20
[2024-12-04 15:26] LABS: INR 1.8; Prothrombin Time 21.3 Seconds (11.1-14.7)
== END 2024-12-04 14:37 | disposition home or self-care (01) ==
PROVIDERS: PCP Family Medicine; Visit Provider Internal Medicine Cardiovascular Disease
DX: I48.91 Unspecified atrial fibrillation (principal)
CPT/HCPCS: 36415; 85610

== ENCOUNTER 2025-01-01 14:19 | Outpatient (CLI) | payer MEDICARE, SELFPAY ==
[2025-01-01 15:05] LABS: Basophils Percent Auto 0.8 % (0.2-1.2); Eosinophils Absolute Auto 0.1 K/mm3 (0-0.3); Eosinophils Percent Auto 2.6 % (0-4.4); Hematocrit 29.6 % (37.0-47.0); Hemoglobin 9.5 g/dL (12.0-15.0); Immature Granulocyte Absolute 0.02 K/mm3 (0.00-0.031); Immature Granulocyte Percent A 0.5 % (0-0.5); Lymphocytes Absolute Auto 0.87 K/mm3 (0.9-3.2); Lymphocytes Percent Auto 22.8 % (18.3-44.2); Mean Corpuscular HGB Conc 32.1 g/dl (32-36); Mean Corpuscular Hemoglobin 34.4 pg (26-34); Mean Corpuscular Volume 107.2 fl (80-100); Mean Platelet Volume 9.8 fl (7.4-10.4); Monocytes Absolute Auto 0.3 K/mm3 (0.1-0.6); Monocytes Percent Auto 6.8 % (2.6-8.5); Neutrophils Absolute Auto 2.5 K/mm3 (1.3-6.7); Neutrophils Percent Auto 66.5 % (45.5-73.1); Platelet Count Result 211 k/mm3 (150-375); Red Blood Count 2.76 M/mm3 (4.2-5.4); Red Cell Distribution Width 18.6 % (11.5-14.5); White Blood Count 3.8 K/mm3 (4.5-10.0)
[2025-01-01 15:19] LABS: Platelet Estimate Adequate (Adequate)
[2025-01-01 15:20] LABS: Macrocytosis 1+ (NORMAL); Ovalocytes 1+; Schistocytes None Seen
--- OUTSIDE RECORDS SUMMARY | 2025-01-01 16:45 | XMS_ITS | Encounter Summary ---
Author Organization [facility] Address [address] [place] [address] Encounter Details Date Type Department Care Team Description 2024-12-26 Telephone [facility] [address] [place] [address] [facility] ([place], [place]) Central Queue (for management use only) The [facility] care team was unable to complete a Medication Reconciliation with the patient following discharge. ASSESSMENT No Information TREATMENT PLAN No Information
--- OUTSIDE RECORDS SUMMARY | 2025-01-01 16:45 | XMS_ITS | Clinical Summary ---
Author Organization [facility] System Address [address] [place] [address] Care Team Providers Care Toll Ticket Clerk Name Role Phone Oh Goode MD Primary Care Provider [phone] Allergies Active Allergy Reactions Criticality Noted Date [...] vitamin D2, ergocalciferol, (VITAMIN D, ERGOCALCIFEROL, ) 33769 UNITS capsule Take 1 capsule (50,000 Units [...] tablet by mouth 3 (three) times daily. 09/26/2024 Active tamsulosin (FLOMAX) 0.4 MG Cap Take 1 capsule (0.4 mg total) by mouth every morning. 07/15/2024 Active famotidine (PEPCID) 20 MG tablet Take 1 tablet (20 mg total) by mouth every 12 (twelve) hours. 10/06/2024 Active docusate sodium (COLACE) 100 MG capsule Take 1 capsule (100 mg total) by mouth daily. 07/20/2024 Active [facility] ASPIRIN LOW DOSE 81 MG tablet Take 1 tablet (81 mg total) by mouth every morning. 01/01/2024 Active ELIQUIS 5 MG tablet Take 1 tablet (5 mg total) by mouth 2 (two) times daily. 08/20/2024 Active amLODIPine (NORVASC) 5 MG tablet Take 1 tablet (5 mg total) by mouth every morning. 07/17/2024 Active amiodarone (PACERONE) 200 MG tablet Take 1 tablet (200 mg total) by mouth daily. 07/26/2024 Active albuterol sulfate HFA 108 (90 Base) MCG/ACT inhaler Inhale 2 puffs into the lungs 4 (four) times daily. 11/04/2023 Active furosemide (LASIX) 40 MG tablet Take 1 tablet (40 mg total) by mouth daily. 10/26/2024 Active allopurinol (ZYLOPRIM) 100 MG tablet Take 1 tablet (100 mg total) by mouth daily. Active fenofibrate 160 MG tablet Take 1 tablet (160 mg total) by mouth daily. Active cefdinir (OMNICEF) 300 MG Cap capsule Take 1 capsule (300 mg total) by mouth daily. 14 capsule 11/21/2024 Active predniSONE (DELTASONE) 10 mg tablet Take 4 tablets (40 mg total) by mouth daily for 3 days, THEN 3 tablets (30 mg total) daily for 3 days, THEN 2 tablets (20 mg total) daily for 3 days, THEN 1 tablet (10 mg total) daily for 3 days. 30 tablet 11/21/2024 12/03/19 25 Active Problems Problem Noted Date Diagnosed Date Pneumonia 11/18/2024 Encounters Date Type Department Care Team Description 11/30/2024 5:32 PM GROUNDSKEEPER - 11/30/2024 8:45 PM [facility] Emergency [facility] Emergency Room [address] [place] [address] Shira Lira MD URI Discharge Disposition: Home or Self Care (Routine Discharge) 11/30/2024 Travel 11/23/2024 [facility] [address] [place] [address] Zhane Salazar LPN Follow Up Call ([facility] 11/18-11/21/23) 11/18/2024 1:47 PM GROUNDSKEEPER - 11/21/2024 1:29 PM GROUNDSKEEPER Hospital Encounter [facility] Med/Surg [address] [place] [address] German Ruiz MD Harris, Michael, MD Mahtani, Andrew, MD Medical Problem Discharge Disposition: Home or Self Care (Routine Discharge) 11/18/2024 Travel 10/12/2024 9:40 AM GROUNDSKEEPER Office Visit [facility] Family & Internal Medicine - [place] [id number] [place] [phone] Evin Frank PA Mouth/Lip Problem (Pt [...] drink = 0.6 oz pur e alcohol) [facility] Utilities Answer Date Recorded In the [...] any time in the past 12 m [facility], were you homeless or living in a prison (including now)? No 11/18/2024 Comments No Sex and Gender Information Value Date Recorded Sex Assigned at Female 11/20/2024 10:33 AM GROUNDSKEEPER Legal Sex Female 4:30 PM CDT Gender Identity Female 11/20/2024 10:33 AM GROUNDSKEEPER Sexual Orientation Not on file Last Filed Vital Signs Vital Sign Reading Time Taken Comments Blood Pressure 161/89 11/30/2024 8:25 PM GROUNDSKEEPER Pulse 88 11/30/2024 5:33 PM GROUNDSKEEPER Temperature 37.1 C (98.7 F) 11/30/2024 5:33 PM GROUNDSKEEPER Respiratory Rate 18 11/30/2024 5:33 PM GROUNDSKEEPER Oxygen Saturation 99% 11/30/2024 8:25 PM GROUNDSKEEPER Inhaled Oxygen Concentration - - Weight 91.1 kg (200 lb 13.4 oz) 11/30/2024 5:33 PM GROUNDSKEEPER Height 167.6 cm (5' 6 ) 11/30/2024 5:33 PM GROUNDSKEEPER Body Mass Index 32.42 11/30/2024 5:33 PM GROUNDSKEEPER Plan of Treatment Health Maintenance Due Date [...] 08/11/2022, 08/25/2021, Additional history exists PHQ-2 (Physician [facility]) 11/07/2024 10/12/2024 DTaP, Tdap and Td Vaccines [...] independent in ADLs upon discharge from hospital Shama Alston RN Procedures Procedure Name Priority Date/Time Associated Diagnosis Comments XR CHEST PA+LAT STAT 11/30/2024 7:31 PM GROUNDSKEEPER PRO-BRAIN NATRIURETIC PEPTIDE STAT 11/30/2024 6:46 PM GROUNDSKEEPER COMPREHENSIVE METABOLIC PANEL STAT 11/30/2024 6:46 PM GROUNDSKEEPER CBC W/DIFF AUTOMATED STAT 11/30/2024 6:46 PM GROUNDSKEEPER INFLUENZA A & B STAT 11/30/2024 5:35 PM GROUNDSKEEPER CORONAVIRUS (COVID 19) STAT 5:35 PM GROUNDSKEEPER POCT GLUCOSE - RUELAS DOCKED DEVICE Routine 11/21/2024 11:17 AM GROUNDSKEEPER POCT GLUCOSE - RUELAS DOCKED DEVICE Routine 11/21/2024 7:14 AM GROUNDSKEEPER BASIC METABOLIC PANEL Routine 11/21/2024 6:50 AM GROUNDSKEEPER POCT GLUCOSE - RUELAS DOCKED DEVICE Routine 11/20/2024 8:57 PM GROUNDSKEEPER POCT GLUCOSE - RUELAS DOCKED DEVICE Routine 11/20/2024 4:03 PM GROUNDSKEEPER CBC W/DIFF AUTOMATED Routine 11/20/2024 3:14 PM GROUNDSKEEPER POCT GLUCOSE - URELAS DOCKED DEVICE Routine 11/20/2024 11:39 AM GROUNDSKEEPER POCT GLUCOSE - RUELAS DOCKED DEVICE Routine 11/20/2024 8:06 AM GROUNDSKEEPER POCT GLUCOSE - RUELAS DOCKED DEVICE Routine 11/20/2024 7:38 AM GROUNDSKEEPER POCT GLUCOSE - RUELAS DOCKED DEVICE Routine 11/19/2024 8:15 PM GROUNDSKEEPER POCT GLUCOSE - RUELAS DOCKED DEVICE Routine 11/19/2024 4:19 PM GROUNDSKEEPER POCT GLUCOSE - RUELAS DOCKED DEVICE Routine 11/19/2024 3:41 PM GROUNDSKEEPER POCT GLUCOSE - RUELAS DOCKED DEVICE Routine 11/19/2024 12:03 PM GROUNDSKEEPER POCT GLUCOSE - RUELAS DOCKED DEVICE Routine 11/19/2024 11:29 AM GROUNDSKEEPER POCT GLUCOSE - RUELAS DOCKED DEVICE Routine 11/19/2024 7:12 AM GROUNDSKEEPER BASIC METABOLIC PANEL Routine 11/19/2024 5:57 AM GROUNDSKEEPER PROCALCITONIN (PCT) Routine 11/19/2024 5 :57 AM GROUNDSKEEPER CBC W/DIFF AUTOMATED Routine 11/19/2024 5:57 AM GROUNDSKEEPER CULTURE, BACTERIA, BLOOD STAT 11/19/2024 5:56 AM GROUNDSKEEPER POCT GLUCOSE - RUELAS DOCKED DEVICE Routine 11/18/2024 7:53 PM GROUNDSKEEPER LACTIC ACID W REFLEX (SEPSIS) STAT 11/18/2024 3:[address] CHEST WO CON STAT 11/18/2024 3:[address] FACIAL BONES WO CON STAT 3:18 PM GROUNDSKEEPER URINALYSIS, AUTO, COMPLETE STAT 11/18/2024 3:03 PM GROUNDSKEEPER BLOOD GAS, ARTERIAL LAB STAT 11/18/19 2:52 PM GROUNDSKEEPER ECG 12-LEAD Routine 11/18/2024 2:37 PM GROUNDSKEEPER Pneumonia CORONAVIRUS (COVID 19) STAT 2:08 PM GROUNDSKEEPER INFLUENZA A & B STAT 11/18/2024 2:08 PM GROUNDSKEEPER RESP SYNCYTIAL VIRUS STAT 11/18/2024 2:08 PM GROUNDSKEEPER TSH W/REFLEX STAT 11/18/2024 2:02 PM GROUNDSKEEPER MAGNESIUM STAT 11/18/2024 2:02 PM GROUNDSKEEPER PRO-BRAIN NATRIURETIC PEPTIDE STAT 11/18/2024 2:02 PM GROUNDSKEEPER LIPASE STAT 11/18/2024 2:02 PM GROUNDSKEEPER CK (CPK) STAT 11/18/2024 2:02 PM GROUNDSKEEPER TROPONIN, QUANT STAT 11/18/2024 2:02 PM GROUNDSKEEPER COMPREHENSIVE METABOLIC PANEL STAT 11/18/2024 2:02 PM GROUNDSKEEPER PARTIAL THROMBOPLASTIN TIME,PTT STAT 11/18/2024 2:02 PM GROUNDSKEEPER PROTHROMBIN TIME, VENOUS STAT 11/18/2024 2:02 PM GROUNDSKEEPER CBC W/DIFF AUTOMATED STAT 11/18/2024 2:02 PM GROUNDSKEEPER from Last 3 Months Results * XR CHEST PA+LAT (11/30/2024 7:31 PM GROUNDSKEEPER) Anatomical Region Laterality Modality Chest Radiographic Mayi ging 11/30/2024 7:33 PM GROUNDSKEEPER Impressions 11/30/2024 7:36 PM GROUNDSKEEPER IMPRESSION: 1. No radiographic evidence of active disease in the chest. 2. When comparing chest x-ray to CT there appears to be interval resolution of previously seen bilateral been noninfectious process. Referred By: Interpreted By: Marjan Mclaughlin DO, 11/30/2024 7:33 PM Narrative 11/30/2024 7:36 PM GROUNDSKEEPER [facility] [address] [facility] [place] [address] CLINICAL INDICATION: 79-year-old female. Cough, dyspnea. 11/30/2024 7:27 PM, Adeline Allen A: sob and cough x 3 weeks. dx w/ pneumonia 3 weeks ago TECHNIQUE: Upright AP and lateral views of the chest on the stretcher COMPARISON: CT chest without contrast 11/18/2024 FINDINGS: Stable borderline cardiomegaly. Pulmonary vascular distribution is unremarkable. The lungs are now clear of infiltrates. No pleural effusion or consolidation with special attention to the areas of previous patchy groundglass opacities in the bilateral mid lung. No pleural effusion or areas of consolidation or new lobar infiltrate. Bony thorax unremarkable. Procedure Note Marjan Mclaughlin MD - 11/30/2024 [facility] [address] [facility] [place] [address] CLINICAL INDICATION: 79-year-old female. Cough, dyspnea. 11/30/2024 [...] By: Marjan Mclaughlin DO, 11/30/2024 7:33 PM us Shira Lira MD GENERAL IMAGING Final Resu lt * (ABNORMAL) PRO-BRAIN NATRIURETIC PEPTIDE (11/30/2024 6:46 PM GROUNDSKEEPER) Only the most recent of2 resultswithin the time period is included. PRO-B TYPE NATRIURETIC PEPTIDE 2,703(H) <450 PG/ML 11/30/2024 7:27 PM GROUNDSKEEPER [facility] Comment: CUT POINTS ESTABLISHED BY INTERNATIONAL [...] 72% FOR ACUTE CHF. 11/30/2024 6:46 PM GROUNDSKEEPER Shira Lira MD LABORATORY Final Resu lt [facility] [address] [place] [address], [place] [phone] * (ABNORMAL) COMPREHENSIVE METABOLIC PANEL (11/30/2024 6:46 PM GROUNDSKEEPER) Only the most recent of2 resultswithin the time period is included. GLUCOSE 334(H) 70 - 99 MG/DL 11/30/2024 7:27 PM [facility] BUN 86(H) 7 - 18 MG/DL 11/30/2024 7:27 PM [facility] CREATININE S/P/B 4.03(H) 0.55 - 1.02 MG/DL 11/30/2024 7:27 PM [facility] SODIUM S/P/B 140 136 - 145 MMOL/L 11/30/2024 7:27 PM [facility] POTASSIUM S/P/B 5.0 3.5 - 5.1 MMOL/L 11/30/2024 7:27 PM [facility] CHLORIDE S/P/B 105 100 - 108 MMOL/L 11/30/2024 7:27 PM [facility] CO2 26.7 21 - 32 MMOL/L 11/30/2024 7:27 PM [facility] CALCIUM S/P/B 8.2(L) 8.5 - 10.1 MG/DL 11/30/2024 7:27 PM [facility] BILIRUBIN TOTAL S/P/B 0.5 0.2 - 1.2 MG/DL 11/30/2024 7:27 PM [facility] TOTAL PROTEIN S/P/B 5.6(L) 6.4 - 8.2 G/DL 11/30/2024 7:27 PM [facility] ALBUMIN S/P/B 2.6(L) 3.4 - 5.0 G/DL 11/30/2024 7:27 PM [facility] AST 27 15 - 37 U/L 11/30/2024 7:27 PM [facility] ALT 25 14 - 55 U/L 11/30/2024 7:27 PM [facility] ALKALINE PHOSPHATASE S/P/B 73 50 - 136 U/L 11/30/2024 7:27 PM [facility] ANION GAP 8.3 5 - 15 MMOL/L 11/30/2024 7:27 PM [facility] BUN CREATININE RATIO 21.3 6 - 26 11/30/2024 7:27 PM [facility] A/G RATIO 0.9(L) 1.0 - 2.0 RATIO 11/30/2024 7:27 PM [facility] GFR ESTIMATE 11(L) >90 ML/MIN/1.7 3 M2 11/30/2024 7:27 PM [facility] Comment: NOTE: eGFR is not calculated for patients <18 years of age. This is an estimated GFR calculation using the new CKD EPI creatinine equation without race and so does not require a correction factor for race. This estimated GFR should not be used for calculating drug doses. 11/30/2024 6:46 PM GROUNDSKEEPER us Shira Lira MD LABORATORY Final Resu lt [facility] [address] [place] [address], [place] [phone] * (ABNORMAL) CBC W/DIFF AUTOMATED (11/30/2024 6:46 PM GROUNDSKEEPER) Only the most recent of4 resultswithin the time period is included. WBC 3.86(L) 4.4 - 11.0 x10'3/uL 11/30/2024 7:17 PM [facility] RBC 2.91(L) 4.50 - 5.10 x10'6/uL 11/30/2024 7:17 PM [facility] HGB 9.7(L) 12.3 - 15.3 G/DL 11/30/2024 7:17 PM [facility] HCT 30.0(L) 35.9 - 44.6 % 11/30/2024 7:17 PM [facility] MCV 103.1(H) 80.0 - 96.0 FL 11/30/2024 7:17 PM [facility] MCH 33.3(H) 25.3 - 30.9 PG 11/30/2024 7:17 PM [facility] MCHC 32.3 31.0 - 34.1 G/DL 11/30/2024 7:17 PM [facility] RDW 16.7(H) 12.4 - 15.1 % 11/30/2024 7:17 PM [facility] PLT 260 151 - 353 x10'3/uL 11/30/2024 7:17 PM [facility] MPV 10.3 9.6 - 12.0 FL 11/30/2024 7:17 PM [facility] RBC MORPHOLOGY NORMAL 11/30/2024 7:17 PM [facility] PLT MORPH. NORMAL 11/30/2024 7:17 PM [facility] WBC MORPHOLOGY NORMAL 11/30/2024 7:17 PM [facility] LYMPHOCYTES % 16.8 15.8 - 45.0 % 11/30/2024 7:17 PM [facility] NEUTROPHILS % 77.5(H) 42.1 - 71.9 % 11/30/2024 7:17 PM [facility] MONOCYTES % 5.2(L) 5.7 - 12.5 % 11/30/2024 7:17 PM [facility] EOSINOPHILS 0.0 0.0 - 5.6 % 11/30/2024 7:17 PM [facility] BASOPHILS 0.0 0.0 - 1.3 % 11/30/2024 7:17 PM [facility] ABS. NEUTROPHILS 2.99 1.40 - 6.00 x10'3/uL 11/30/2024 7:17 PM [facility] IMMATURE GRANS % 0.5 0.0 - 0.5 % 11/30/2024 7:17 PM [facility] ABS. LYMPHOCYTES 0.65(L) 0.80 - 4.70 x10'3/uL 11/30/2024 7:17 PM GROUNDSKEEPER [facility] 11/30/2024 6:46 PM GROUNDSKEEPER Shira Lira MD LABORATORY Final Resu lt Performing Organization Address [facility]/ZIP Co de Phone Number [facility] [address] [place] [address], [place] [phone] * CORONAVIRUS (COVID-19) MOLECULAR (11/30/2024 5:35 PM GROUNDSKEEPER) Only the most recent of2 resultswithin the time period is included. CORONAVIRUS SARS COV 2 RNA NEGATIVE NEGATIVE 11/30/2024 6:11 PM GROUNDSKEEPER [facility] Comment: NEGATIVE RESULTS DO NOT RULE [...] SARS-COV-2. SPECIMEN TYPE NASAL 11/30/2024 5:38 PM GROUNDSKEEPER [facility] NASOPHARYNGEAL SWAB / Unknown 11/30/2024 5:35 PM GROUNDSKEEPER Shira Lira MD MICROBIOLOGY - GENERAL ORD ERABLES Final Result Performing Organization Address City/[facility]/ZIP Co de Phone Number [facility] [address] [place] [address], [place] [phone] * INFLUENZA A & B (11/30/2024 5:35 PM GROUNDSKEEPER) Only the most recent of2 resultswithin the time period is included. SPECIMEN TYPE NASOPHARYNX 11/30/2024 5:44 PM GROUNDSKEEPER [facility] INFLUENZA A NEGATIVE NEGATIVE 11/30/2024 6:01 PM GROUNDSKEEPER [facility] INFLUENZA B NEGATIVE NEGATIVE 11/30/2024 6:01 PM GROUNDSKEEPER [facility] NASOPHARYNGEAL SWAB / Unknown 11/30/2024 5:35 PM GROUNDSKEEPER Shira Lira MD MICROBIOLOGY - GENERAL ORD ERABLES Final Result Performing Organization Address City/[facility]/ZIP Co de Phone Number [facility] [address] [place] [address], [place] [phone] * (ABNORMAL) POCT glucose (11/21/2024 11:17 AM GROUNDSKEEPER) Only the most recent of14 resultswithin the time period is included. GLUCOSE POC 219(H) 70 - 110 mg/dL 11/21/2024 4:53 PM GROUNDSKEEPER [facility] 11/21/2024 11:1 7 AM GROUNDSKEEPER Kole Guzman MD POCT ORDERABLES - DEVICE Final Result Performing Organization Address [facility] Co de Phone Number [facility] [address] [place] [address], [place] [phone] * (ABNORMAL) BASIC METABOLIC PANEL (11/21/2024 6:50 AM GROUNDSKEEPER) Only the most recent of2 resultswithin the time period is included. GLUCOSE 216(H) 70 - 99 MG/DL 11/21/2024 7:50 AM GROUNDSKEEPER [facility] BUN 53(H) 7 - 18 MG/DL 11/21/2024 7:50 AM [facility] CREATININE S/P/B 3.63(H) 0.55 - 1.02 MG/DL 11/21/2024 7:50 AM GROUNDSKEEPER [facility] SODIUM S/P/B 140 136 - 145 MMOL/L 11/21/2024 7:50 AM [facility] POTASSIUM S/P/B 5.2(H) 3.5 - 5.1 MMOL/L 11/21/2024 7:50 AM [facility] CHLORIDE S/P/B 106 100 - 108 MMOL/L 11/21/2024 7:50 AM [facility] CO2 25.8 21 - 32 MMOL/L 11/21/2024 7:50 AM [facility] CALCIUM S/P/B 8.9 8.5 - 10.1 MG/DL 11/21/2024 7:50 AM [facility] ANION GAP 8.2 5 - 15 MMOL/L 11/21/2024 7:50 AM [facility] BUN CREATININE RATIO 14.6 6 - 26 11/21/2024 7:50 AM [facility] GFR ESTIMATE 12(L) >90 ML/MIN/1.7 3 M2 11/21/2024 7:50 AM [facility] Comment: NOTE: eGFR is not calculated for patients <18 years of age. This is an estimated GFR calculation using the new CKD EPI creatinine equation without race and so does not require a correction factor for race. This estimated GFR should not be used for calculating drug doses. 11/21/2024 6:50 AM GROUNDSKEEPER us Swapnil Gilliland MD LABORATORY Final Result [facility] [address] [place] [address], * PROCALCITONIN (PCT) (11/19/2024 5:57 AM GROUNDSKEEPER) Procalcitonin 0.05 0.00 - 0.25 NG/ML 11/19/2024 10:09 AM GROUNDSKEEPER [facility] Comment: PROCALCITONIN INTERPRETATION GUIDELINES LOWER RESPIRATORY TRACT INFECTIONS (LRTI): USE OF PCT IN INPATIENT OR EMERGENCY SITUATION INITIATION OF ANTIBIOTICS PCT VALUE INTERPRETATION <0.10 NG/ML ANTIBIOTIC THERAPY STRONGLY DISCOURAGED. 0.10-0.25 NG/ML ANTIBIOTIC THERAPY DISCOURAGED. 0.26-0.50 NG/ML ANTIBIOTIC THERAPY ENCOURAGED. >0.50 NG/ML ANTIBIOTIC THERAPY STRONGLY ENCOURAGED. DISCONTINUE ANTIBIOTICS PCT LESS THAN [...] OF PCT IS RECOMMENDED. 11/19/2024 5:57 AM GROUNDSKEEPER Swapnil Gilliland MD LABORATORY Final Result [facility] [address] [place] [address], * BLOOD CULTURE #1 (11/19/2024 5:56 AM GROUNDSKEEPER) SPEC DESCRIPTION BLOOD-PEDIA TRIC VOLUME 11/18/2024 5:50 PM GROUNDSKEEPER [facility] SPECIAL REQUESTS NO SPECIAL REQUEST 11/18/2024 5:50 PM GROUNDSKEEPER [facility] CULTURE RESULT NO GROWTH 5 DAYS 11/24/2024 7:30 AM GROUNDSKEEPER [facility] BLOOD SPECIMEN OBTAINED FOR BLOOD CULTURE / Unknown 11/19/2024 5:56 AM GROUNDSKEEPER 11/19/2024 5:57 AM GROUNDSKEEPER us German Ruiz MD MICROBIOLOGY - GENERAL ORDERABL ES Final Result Performing Organization Address [facility] Co de Phone Number [facility] [address] [place] [address], [place] [phone] [facility] [address] [place] [address], [place] [phone] * LACTIC ACID W REFLEX (SEPSIS) (11/18/2024 3:38 PM GROUNDSKEEPER) LACTIC ACID VENOUS 0.6 0.4 - 2.0 MMOL/L 11/18/2024 4:05 PM GROUNDSKEEPER [facility] 11/18/2024 3:38 PM GROUNDSKEEPER us German Ruiz MD LABORATORY Final Result Performing Organization Address [facility] de Phone Number [facility] [address] [place] [address], [place] [phone] * CT CHEST WO CON (11/18/2024 3:18 PM GROUNDSKEEPER) Anatomical Region Laterality Modality Chest Computed Tomogra phy 11/18/2024 4:00 PM GROUNDSKEEPER Impressions 11/18/2024 4:05 PM GROUNDSKEEPER Impression: 1. There are mild patchy groundglass opacities in the right middle lobe, and similar-appearing opacities in the central aspect of the left upper lobe, likely infectious in etiology. 2. Additional chronic findings as described. Referred By: Interpreted By: Lawsno Ruth MD, 11/18/2024 4:00 PM Narrative 11/18/2024 4:05 PM GROUNDSKEEPER [facility] [address] [place] [address] Examination: CT CHEST WO CON Exam time: [...] right middle lobe, likely infectious in etiology. There are similar-appearing opacities in the central aspect of the left upper lobe. Cystic bronchiectatic changes are noted in the posterior aspect of the right upper lobe. There is linear fibroatelectasis in the left lower lobe. No pleural effusion or pneumothorax. The central airways are patent. There is no definite lymphadenopathy. No pericardial effusion. There are coronary artery calcifications. There is a small hiatal hernia. Images of the upper abdomen demonstrate cholelithiasis. Bilateral renal parenchymal thinning is noted. There are bilateral renal cysts. No acute osseous abnormality. Procedure Note Lawson Ruth MD - 11/18/2024 [facility] [address] [place] [address] Examination: CT CHEST WO CON Exam time: [...] FACIAL BONES WO CON (11/18/2024 3:18 PM GROUNDSKEEPER) Anatomical Region Laterality Modality Facial Computed Tomogra phy 11/18/2024 4:05 PM GROUNDSKEEPER Impressions 11/18/2024 4:08 PM GROUNDSKEEPER IMPRESSION: 1. There is no definite facial bone fracture noted given the limits of motion artifact. 2. There is anterior subluxation of the right and left mandible relative to the temporal mandibular joints of uncertain clinical significance. Referred By: Interpreted By: Lawson Ruth MD, 11/18/2024 4:05 PM Narrative 11/18/2024 4:08 PM GROUNDSKEEPER [facility] [address] [facility] [place] [address] Examination: CT FACIAL BONES WO CON Exam time: 11/18/2024 2:08 PM INDICATION: Jaw pain since a fall one week ago COMPARISON: None TECHNIQUE: CT examination of the facial bones was performed without contrast. Axial and multiplanar reformatted images were obtained. A dose lowering technique was used for this procedure, which may include, but is not limited to, dose reduction technique, automated exposure control, the use of iterative reconstruction, and ALARA (As Low As Reasonably Achievable) / Image Gently techniques. FINDINGS: Motion artifact is noted. The pterygoid plates are intact. The orbital rims are intact. There is no definite facial bone fracture noted given the limits of motion artifact. The mastoid air cells are clear. There are a few opacified left anterior ethmoid air cells, and there are small bilateral maxillary sinus mucosal retention cysts. There is anterior subluxation of the right and left mandible relative to the temporal mandibular joints of uncertain clinical significance. Procedure Note Lawson Ruth MD - 11/18/2024 [facility] [id number] [place] [address] Examination: CT FACIAL BONES WO CON Exam [...] (ABNORMAL) URINALYSIS, AUTO, COMPLETE (11/18/2024 3:03 PM GROUNDSKEEPER) COLOR (U) YELLOW 11/18/2024 3:21 PM GROUNDSK[facility]PER [facility] TRANSPARENCY CLEAR 11/18/2024 3:21 PM GROUNDSKEEPER [facility] SPECIFIC GRAVITY (U) 1.015 1.000 - 1.030 11/18/2024 3:21 PM [facility] U PH 5.5 5.0 - 9.0 11/18/2024 3:21 PM [facility] LEUKOCYTES (U) 1+(A) NEGATIVE 11/18/2024 3:21 PM [facility] NITRITES NEGATIVE NEGATIVE 11/18/2024 3:21 PM [facility] PROTEIN RANDOM (U) 1+(A) NEGATIVE 11/18/2024 3:21 PM [facility] GLUCOSE (U) NEGATIVE NEGATIVE 11/18/2024 3:21 PM [facility] KETONES MG/DL (U) NEGATIVE NEGATIVE 11/18/2024 3:21 PM [facility] BILIRUBIN (U) NEGATIVE NEGATIVE 11/18/2024 3:21 PM [facility] BLOOD (U) NEGATIVE NEGATIVE 11/18/2024 3:21 PM [facility] WBC/HPF 5-10 0 - 5 /HPF 11/18/2024 3:21 PM [facility] RBC/HPF NONE SEEN 0 - 5 /HPF 11/18/2024 3:21 PM [facility] EPI/HPF RARE /HPF 11/18/2024 3:21 PM [facility] OTHER CASTS (U) RARE /LPF 3:21 PM [facility] Comment:HYALINE URINE SPECIMEN OBTAINED BY CLEAN CATCH PROCEDURE / Unknown 11/18/2024 3:03 PM GROUNDSKEEPER us German Ruiz MD URINE ORDERABLES Final Result [facility] [address] [place] [address], [place] [phone] * (ABNORMAL) ARTERIAL BLOOD GAS (11/18/2024 2:52 PM GROUNDSKEEPER) PH ARTERIAL 7.40 7.35 - 7.45 11/18/2024 3:06 PM [facility] PCO2 39.0 35 - 45 MMHG 11/18/2024 3:06 PM [facility] PO2 80.0(L) 83 - 108 MMHG 11/18/2024 3:06 PM [facility] TOTAL CO2 ARTERIAL 25.4(H) 19.0 - 24.0 MMOL/L 11/18/2024 3:06 PM [facility] BASE DEFICIT 0.5 0 - 2 MMOL/L 11/18/2024 3:06 PM [facility] O2 SATURATION 96 94.0 - 98.0 % 11/18/2024 3:06 PM [facility] BICARB ARTERIAL 24.2 21.0 - 28.0 MMOL/L 11/18/2024 3:06 PM [facility] GENEVA TEST POSITIVE 11/18/2024 3:04 PM [facility] O2 ADMIN ARTERIAL ROOM AIR 11/18/2024 3:04 PM [facility] DRAW SITE ARTERIAL DRAWN FROM LEFT WRIST 11/18/2024 3:04 PM [facility] 11/18/2024 2:52 PM GROUNDSKEEPER us German Ruiz MD LABORATORY Final Result [facility] [address] [place] [address], [place] [phone] * ECG 12 lead (11/18/2024 2:37 PM GROUNDSKEEPER) 11/18/2024 2:37 PM GROUNDSKEEPER Narrative [facility] RAD - 11/19/2024 10:[address] 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 RAD * RESP SYNCYTIAL VIRUS (11/18/2024 2:08 PM GROUNDSKEEPER) SPECIMEN TYPE NASOPHARYNGEAL SWAB 11/18/2024 2:08 PM GROUNDSKEEPER [facility] RAPID RSV NEGATIVE NEGATIVE 11/18/2024 2:48 PM GROUNDSKEEPER [facility] NASOPHARYNGEAL SWAB / Unknown 11/18/2024 2:08 PM GROUNDSKEEPER us German Ruiz MD MICROBIOLOGY - GENERAL ORDERABL ES Final Result Performing Organization Address [facility] Co de Phone Number [facility] [address] [place] [address], [place] [phone] * TSH W/REFLEX (11/18/2024 2:02 PM GROUNDSKEEPER) TSH 1.795 0.358 - 3.74 uIU/ML 11/18/2024 2:55 PM GROUNDSKEEPER [facility] Comment: HIGH DOSES OF BIOTIN MAY INTERFERE WITH THIS TEST RESULT. CORRELATION TO CLINICAL HISTORY AND PRESENTATION RECOMMENDED. FREE T4 NOT INDICATED 11/18/2024 2:02 PM GROUNDSKEEPER us German Ruiz MD LABORATORY Final Result Performing Organization Address [facility] Co de Phone Number [facility] [address] [place] [address], [place] [phone] * (ABNORMAL) PARTIAL THROMBOPLASTIN TIME,PTT (11/18/2024 2:02 PM GROUNDSKEEPER) PTT 57.3(H) 27.0 - 36.8 SEC 11/18/2024 2:40 PM GROUNDSKEEPER [facility] 11/18/2024 2:02 PM GROUNDSKEEPER us German Ruiz MD LABORATORY Final Result Performing Organization Address City/[facility]/ZIP Co de Phone Number [facility] [address] [place] [address], [place] [phone] * (ABNORMAL) PROTIME/INR, VENOUS (11/18/2024 2:02 PM GROUNDSKEEPER) Pathologist [facility] PROTIME 22.5(H) 9.1 - 12.4 SEC 11/18/2024 2:40 PM GROUNDSKEEPER [facility] INR 2.0 11/18/2024 2:40 PM GROUNDSKEEPER [facility] Comment: Recommend INR ranges for Oral Anticoagulant Therapy: Mechanical Cardiac Values 2.5-3.5 All others indication 2.0-3.0 11/18/2024 2:02 PM GROUNDSKEEPER German Ruiz MD LABORATORY Final Result [facility] [address] [place] [address], [place] [phone] * TROPONIN, QUANT (11/18/2024 2:02 PM GROUNDSKEEPER) [facility] TROPONIN I HIGH SENSITIVITY 26 0 - 50 ng/L 11/18/2024 2:49 PM GROUNDSKEEPER [facility] Comment: HIGH DOSES OF BIOTIN, TROPONIN-SPECIFIC AUTOANTIBODIES, AND ANTIBODY THERAPY CONTAINING HAMA MAY INTERFERE WITH THIS TEST RESULT. CORRELATION TO CLINICAL HISTORY AND PRESENTATION RECOMMENDED. 11/18/2024 2:02 PM GROUNDSKEEPER German Ruiz MD LABORATORY Final Result [facility] [address] [place] [address], [place] [phone] * MAGNESIUM (11/18/2024 2:02 PM GROUNDSKEEPER) [facility] MAGNESIUM 2.3 1.8 - 2.4 MG/DL 11/18/2024 2:55 PM GROUNDSKEEPER [facility] 11/18/2024 2:02 PM GROUNDSKEEPER us German Ruiz MD LABORATORY Final Result Performing Organization Address [facility] Co de Phone Number [facility] [address] [place] [address], [place] [phone] * LIPASE (11/18/2024 2:02 PM GROUNDSKEEPER) LIPASE 41 16 - 77 UNITS/L 11/18/2024 2:55 PM GROUNDSKEEPER [facility] 11/18/2024 2:02 PM GROUNDSKEEPER us German Ruiz MD LABORATORY Final Result Performing Organization Address [facility] Co de Phone Number [facility] [address] [place] [address], [place] [phone] * CK (CPK) (11/18/2024 2:02 PM GROUNDSKEEPER) CPK 71 26 - 192 U/L 11/18/2024 2:55 PM GROUNDSKEEPER [facility] 11/18/2024 2:02 PM GROUNDSKEEPER us German Ruiz MD LABORATORY Final Result Performing Organization Address City/[facility] Co de Phone Number [facility] [address] [place] [address], [place] [phone] from Last 3 Months Insurance Advance Directives * Full Code (Latest Code Status on File) Date Activated Date Inactivated Comments 11/18/2024 6:41 PM 11/21/2024 3:34 PM Care Teams Toll Ticket Clerk Relationship Specialty Start Date End Date Oh Goode MD [address] [place] [address] PCP - General FAMILY PRACTICE 01/26/20
== END 2025-01-01 14:20 | disposition home or self-care (01) ==
PROVIDERS: PCP Family Medicine; Visit Provider Registered Nurse
DX: D64.9 Anemia, unspecified (principal)
CPT/HCPCS: 36415; 85025

== ENCOUNTER 2025-01-15 13:31 | Outpatient (CLI) | payer MEDICARE, SELFPAY ==
--- OUTSIDE RECORDS SUMMARY | 2025-01-15 15:03 | XMS_ITS | Clinical Summary ---
Author Organization [facility] Address [address] [place] [address] Care Team Providers Care Rejogger Name Role Phone Oh Goode MD Primary Care Provider [phone] Allergies Active Allergy Reactions Criticality Noted Date [...] vitamin D2, ergocalciferol, (VITAMIN D, ERGOCALCIFEROL, ) 81899 UNITS capsule Take 1 capsule (50,000 Units [...] by mouth daily. 14 capsule 11/21/2024 Active Active Problems Problem Noted Date Diagnosed Date Pneumonia 11/18/2024 Encounters Date Type Department Care Team Description 11/30/2024 5:32 PM RN MDS COORDINATOR - 11/30/2024 8:45 PM [facility] Emergency [facility] Emergency Room [address] [place] [address] Shira Lira MD URI Discharge Disposition: Home or Self Care (Routine Discharge) 11/30/2024 Travel 11/23/2024 Hospital Follow-up Call [facility] Care Management [address] [place] [address] Zhane Salazar LPN Follow Up Call ([facility] 11/18-11/21/23) 11/18/2024 1:47 PM RN MDS COORDINATOR - 11/21/2024 1:29 PM RN MDS COORDINATOR Hospital Encounter [facility] Med/Surg [address] [place] [address] German Ruiz MD Harris, Michael, MD Mahtani, Andrew, MD Medical Problem Discharge Disposition: Home or Self Care (Routine Discharge) 11/18/2024 Travel from Last 3 Months Immunizations Name [...] drink = 0.6 oz pur e alcohol) [facility] Utilities Answer Date Recorded In the past 12 months has e [facility], gas, oil, or water [employer] threatened to shut off services in your [...] any time in the past 12 m [facility], were you homeless or living in a [facility]p (including now)? No 11/18/2024 Comments No Sex and Gender Information Value Date Recorded Sex Assigned at Female 11/20/2024 10:33 AM RN MDS COORDINATOR Legal Sex Female 4:30 PM CDT Gender Identity Female 11/20/2024 10:33 AM RN MDS COORDINATOR Sexual Orientation Not on file Last Filed Vital Signs Vital Sign Reading Time Taken Comments Blood Pressure 161/89 11/30/2024 8:25 PM RN MDS COORDINATOR Pulse 88 11/30/2024 5:33 PM RN MDS COORDINATOR Temperature 37.1 C (98.7 F) 11/30/2024 5:33 PM RN MDS COORDINATOR Respiratory Rate 18 11/30/2024 5:33 PM RN MDS COORDINATOR Oxygen Saturation 99% 11/30/2024 8:25 PM RN MDS COORDINATOR Inhaled Oxygen Concentration - - Weight 91.1 kg (200 lb 13.4 oz) 11/30/2024 5:33 PM RN MDS COORDINATOR Height 167.6 cm (5' 6 ) 11/30/2024 5:33 PM RN MDS COORDINATOR Body Mass Index 32.42 11/30/2024 5:33 PM RN MDS COORDINATOR Plan of Treatment Health Maintenance Due Date [...] 08/11/2022, 08/25/2021, Additional history exists PHQ-2 (Physician [place]) 11/07/2024 10/12/2024 DTaP, Tdap and Td Vaccines [...] upon discharge from hospital Lifestyle No Shama Dudley, research director Procedure Name Priority Date/Time Associated Diagnosis Comments XR CHEST PA+LAT STAT 11/30/2024 7:31 PM RN MDS COORDINATOR PRO-BRAIN NATRIURETIC PEPTIDE STAT 11/30/2024 6:46 PM RN MDS COORDINATOR COMPREHENSIVE METABOLIC PANEL STAT 11/30/2024 6:46 PM RN MDS COORDINATOR CBC W/DIFF AUTOMATED STAT 11/30/2024 6:46 PM RN MDS COORDINATOR INFLUENZA A & B STAT 11/30/2024 5:35 PM RN MDS COORDINATOR CORONAVIRUS (COVID 19) STAT 5:35 PM RN MDS COORDINATOR POCT GLUCOSE - RUELAS DOCKED DEVICE Routine 11/21/2024 11:17 AM RN MDS COORDINATOR POCT GLUCOSE - RUELAS DOCKED DEVICE Routine 11/21/2024 7:14 AM RN MDS COORDINATOR BASIC METABOLIC PANEL Routine 11/21/2024 6:50 AM RN MDS COORDINATOR POCT GLUCOSE - RUELAS DOCKED DEVICE Routine 11/20/2024 8:57 PM RN MDS COORDINATOR POCT GLUCOSE - RUELAS DOCKED DEVICE Routine 11/20/2024 4:03 PM RN MDS COORDINATOR CBC W/DIFF AUTOMATED Routine 11/20/2024 3:14 PM RN MDS COORDINATOR POCT GLUCOSE - RUELAS DOCKED DEVICE Routine 11/20/2024 11:39 AM RN MDS COORDINATOR POCT GLUCOSE - RUELAS DOCKED DEVICE Routine 11/20/2024 8:06 AM RN MDS COORDINATOR POCT GLUCOSE - RUELAS DOCKED DEVICE Routine 11/20/2024 7:38 AM RN MDS COORDINATOR POCT GLUCOSE - RUELAS DOCKED DEVICE Routine 11/19/2024 8:15 PM RN MDS COORDINATOR POCT GLUCOSE - RUELAS DOCKED DEVICE Routine 11/19/2024 4:19 PM RN MDS COORDINATOR POCT GLUCOSE - RUELAS DOCKED DEVICE Routine 11/19/2024 3:41 PM RN MDS COORDINATOR POCT GLUCOSE - RUELAS DOCKED DEVICE Routine 11/19/2024 12:03 PM RN MDS COORDINATOR POCT GLUCOSE - RUELAS DOCKED DEVICE Routine 11/19/2024 11:29 AM RN MDS COORDINATOR POCT GLUCOSE - RUELAS DOCKED DEVICE Routine 11/19/2024 7:12 AM RN MDS COORDINATOR BASIC METABOLIC PANEL Routine 11/19/2024 5:57 AM RN MDS COORDINATOR PROCALCITONIN (PCT) Routine 11/19/2024 5 :57 AM RN MDS COORDINATOR CBC W/DIFF AUTOMATED Routine 11/19/2024 5:57 AM RN MDS COORDINATOR CULTURE, BACTERIA, BLOOD STAT 11/19/2024 5:56 AM RN MDS COORDINATOR POCT GLUCOSE - RUELAS DOCKED DEVICE Routine 11/18/2024 7:53 PM RN MDS COORDINATOR LACTIC ACID W REFLEX (SEPSIS) STAT 11/18/2024 3:38 PM RN MDS COORDINATOR CT CHEST WO CON STAT 11/18/2024 3:18 PM RN MDS COORDINATOR CT FACIAL BONES WO CON STAT 3:18 PM RN MDS COORDINATOR URINALYSIS, AUTO, COMPLETE STAT 11/18/2024 3:03 PM RN MDS COORDINATOR BLOOD GAS, ARTERIAL LAB STAT 11/18/19 2:52 PM RN MDS COORDINATOR ECG 12-LEAD Routine 11/18/2024 2:37 PM RN MDS COORDINATOR Pneumonia CORONAVIRUS (COVID 19) STAT 2:08 PM RN MDS COORDINATOR INFLUENZA A & B STAT 11/18/2024 2:08 PM RN MDS COORDINATOR RESP SYNCYTIAL VIRUS STAT 11/18/2024 2:08 PM RN MDS COORDINATOR TSH W/REFLEX STAT 11/18/2024 2:02 PM RN MDS COORDINATOR MAGNESIUM STAT 11/18/2024 2:02 PM RN MDS COORDINATOR PRO-BRAIN NATRIURETIC PEPTIDE STAT 11/18/2024 2:02 PM RN MDS COORDINATOR LIPASE STAT 11/18/2024 2:02 PM RN MDS COORDINATOR CK (CPK) STAT 11/18/2024 2:02 PM RN MDS COORDINATOR TROPONIN, QUANT STAT 11/18/2024 2:02 PM RN MDS COORDINATOR COMPREHENSIVE METABOLIC PANEL STAT 11/18/2024 2:02 PM RN MDS COORDINATOR PARTIAL THROMBOPLASTIN TIME,PTT STAT 11/18/2024 2:02 PM RN MDS COORDINATOR PROTHROMBIN TIME, VENOUS STAT 11/18/2024 2:02 PM RN MDS COORDINATOR CBC W/DIFF AUTOMATED STAT 11/18/2024 2:02 PM RN MDS COORDINATOR from Last 3 Months Results * XR CHEST PA+LAT (11/30/2024 7:31 PM RN MDS COORDINATOR) Anatomical Region Laterality Modality Chest Radiographic Mayi ging 11/30/2024 7:33 PM RN MDS COORDINATOR Impressions 11/30/2024 7:36 PM RN MDS COORDINATOR IMPRESSION: 1. No radiographic evidence of active disease in the chest. 2. When comparing chest x-ray to CT there appears to be interval resolution of previously seen bilateral been noninfectious process. Referred By: Interpreted By: Marjan Mclaughlin DO, 11/30/2024 7:33 PM Narrative 11/30/2024 7:36 PM RN MDS COORDINATOR [facility] [address] [place] [address] CLINICAL INDICATION: 79-year-old female. Cough, dyspnea. 11/30/2024 [...] Procedure Note Marjan Mclaughlin MD - 11/30/2024 [facility] [address] [place] [address] CLINICAL INDICATION: 79-year-old female. Cough, dyspnea. 11/30/2024 [...] (ABNORMAL) PRO-BRAIN NATRIURETIC PEPTIDE (11/30/2024 6:46 PM RN MDS COORDINATOR) Only the most recent of2 resultswithin the time period is included. PRO-B TYPE NATRIURETIC PEPTIDE 2,703(H) <450 PG/ML 11/30/2024 7:27 [address] COORDIN[address] [facility] Comment: CUT POINTS [...] 72% FOR ACUTE CHF. 11/30/2024 6:46 PM RN MDS COORDINATOR us Shira Lira MD LABORATORY Final Resu lt [facility] [address] [place] [address], * (ABNORMAL) COMPREHENSIVE METABOLIC PANEL (11/30/2024 6:46 PM RN MDS COORDINATOR) Only the most recent of2 resultswithin the time period is included. GLUCOSE 334(H) 70 - 99 MG/DL 11/30/2024 7:27 PM RN MDS COORDINATOR [facility] BUN 86(H) 7 - 18 MG/DL 11/30/2024 7:27 PM [facility] CREATININE S/P/B 4.03(H) 0.55 - 1.02 MG/DL 11/30/2024 7:27 PM [facility] SODIUM S/P/B 140 136 - 145 MMOL/L 11/30/2024 7:27 PM [facility] POTASSIUM S/P/B 5.0 3.5 - 5.1 MMOL/L 11/30/2024 7:27 PM [facility] CHLORIDE S/P/B 105 100 - 108 MMOL/L 11/30/2024 7:27 PM [facility] CO2 26.7 21 - 32 MMOL/L 11/30/2024 7:27 PM [facility] CALCIUM S/P/B 8.2(L) 8.5 - 10.1 MG/DL 11/30/2024 7:27 PM [facility] BILIRUBIN TOTAL S/P/B 0.5 0.2 - 1.2 MG/DL 11/30/2024 7:27 PM [facility] TOTAL PROTEIN S/P/B 5.6(L) 6.4 - 8.2 G/DL 11/30/2024 7:27 PM [facility] ALBUMIN S/P/B 2.6(L) 3.4 - 5.0 G/DL 11/30/2024 7:27 PM [facility] AST 27 15 - 37 U/L 11/30/2024 7:27 PM [facility] ALT 25 14 - 55 U/L 11/30/2024 7:27 PM [facility] ALKALINE PHOSPHATASE S/P/B 73 50 - 136 U/L 11/30/2024 7:27 PM [facility] ANION GAP 8.3 5 - 15 MMOL/L 11/30/2024 7:27 PM [facility] BUN CREATININE RATIO 21.3 6 - 26 11/30/2024 7:27 PM [facility] A/G RATIO 0.9(L) 1.0 - 2.0 RATIO 11/30/2024 7:27 PM [facility] GFR ESTIMATE 11(L) >90 ML/MIN/1.7 3 M2 11/30/2024 7:27 PM [facility] Comment: NOTE: eGFR is not calculated for patients <18 years of age. This is an estimated GFR calculation using the new CKD EPI creatinine equation without race and so does not require a correction factor for race. This estimated GFR should not be used for calculating drug doses. 11/30/2024 6:46 PM RN MDS COORDINATOR us Shira Lira MD LABORATORY Final Resu lt [facility] [address] [place] [address], * (ABNORMAL) CBC W/DIFF AUTOMATED (11/30/2024 6:46 PM RN MDS COORDINATOR) Only the most recent of4 resultswithin the time period is included. WBC 3.86(L) 4.4 - 11.0 x10'3/uL 11/30/2024 7:17 PM [facility] RBC 2.91(L) 4.50 - 5.10 x10'6/uL 11/30/2024 7:17 PM [facility] HGB 9.7(L) 12.3 - 15.3 G/DL 11/30/2024 7:17 PM [facility] HCT 30.0(L) 35.9 - 44.6 % 11/30/2024 7:17 PM [facility] MCV 103.1(H) 80.0 - 96.0 FL 11/30/2024 7:17 PM [facility] MCH 33.3(H) 25.3 - 30.9 PG 11/30/2024 7:17 PM [facility] MCHC 32.3 31.0 - 34.1 G/DL 11/30/2024 7:17 PM [facility] RDW 16.7(H) 12.4 - 15.1 % 11/30/2024 7:17 PM [facility] PLT 260 151 - 353 x10'3/uL 11/30/2024 7:17 PM [facility] MPV 10.3 9.6 - 12.0 FL 11/30/2024 7:17 PM [facility] RBC MORPHOLOGY NORMAL 11/30/2024 7:17 PM [facility] PLT MORPH. NORMAL 11/30/2024 7:17 PM RN MDS COORDINATOR [facility] WBC MORPHOLOGY NORMAL 11/30/2024 7:17 PM RN MDS COORDINATOR [facility] LYMPHOCYTES % 16.8 15.8 - 45.0 % 11/30/2024 7:17 PM [facility] NEUTROPHILS % 77.5(H) 42.1 - 71.9 % 11/30/2024 7:17 PM [facility] MONOCYTES % 5.2(L) 5.7 - 12.5 % 11/30/2024 7:17 PM [facility] EOSINOPHILS 0.0 0.0 - 5.6 % 11/30/2024 7:17 PM [facility] BASOPHILS 0.0 0.0 - 1.3 % 11/30/2024 7:17 PM [facility] ABS. NEUTROPHILS 2.99 1.40 - 6.00 x10'3/uL 11/30/2024 7:17 PM [facility] IMMATURE GRANS % 0.5 0.0 - 0.5 % 11/30/2024 7:17 PM [facility] ABS. LYMPHOCYTES 0.65(L) 0.80 - 4.70 x10'3/uL 11/30/2024 7:17 PM [facility] 11/30/2024 6:46 PM RN MDS COORDINATOR us Shira Lira MD LABORATORY Final Resu lt [facility] [address] [place] [address], * CORONAVIRUS (COVID-19) MOLECULAR (11/30/2024 5:35 PM RN MDS COORDINATOR) Only the most recent of2 resultswithin the time period is included. CORONAVIRUS SARS COV 2 RNA NEGATIVE NEGATIVE 11/30/2024 6:11 PM RN MDS COORDINATOR [facility] Comment: NEGATIVE RESULTS DO NOT [...] SARS-COV-2. SPECIMEN TYPE NASAL 11/30/2024 5:38 PM RN MDS COORDINATOR [facility] NASOPHARYNGEAL SWAB / Unknown 11/30/2024 5:35 PM RN MDS COORDINATOR us Shira Lira MD MICROBIOLOGY - GENERAL ORD ERABLES Final Result Performing Organization Address City/[facility]/ZIP Co de Phone Number [facility] [address] [place] [address], [place] [phone] * INFLUENZA A & B (11/30/2024 5:35 PM RN MDS COORDINATOR) Only the most recent of2 resultswithin the time period is included. SPECIMEN TYPE NASOPHARYNX 11/30/2024 5:44 PM RN MDS COORDINATOR [facility] INFLUENZA A NEGATIVE NEGATIVE 11/30/2024 6:01 PM RN MDS COORDINATOR [facility] INFLUENZA B NEGATIVE NEGATIVE 11/30/2024 6:01 PM RN MDS COORDINATOR [facility] NASOPHARYNGEAL SWAB / Unknown 11/30/2024 5:35 PM RN MDS COORDINATOR us Shira Lira MD MICROBIOLOGY - GENERAL ORD ERABLES Final Result [facility] [address] [place] [address], [place] [phone] * (ABNORMAL) POCT glucose (11/21/2024 11:17 AM RN MDS COORDINATOR) Only the most recent of14 resultswithin the time period is included. GLUCOSE POC 219(H) 70 - 110 mg/dL 11/21/2024 4:53 PM RN MDS COORDINATOR [facility] 11/21/2024 11:1 7 AM RN MDS COORDINATOR Kole Guzman MD POCT ORDERABLES - DEVICE Final Result [facility] [address] [place] [address], [place] [phone] * (ABNORMAL) BASIC METABOLIC PANEL (11/21/2024 6:50 AM RN MDS COORDINATOR) Only the most recent of2 resultswithin the time period is included. GLUCOSE 216(H) 70 - 99 MG/DL 11/21/2024 7:50 AM [facility] BUN 53(H) 7 - 18 MG/DL 11/21/2024 7:50 AM [facility] CREATININE S/P/B 3.63(H) 0.55 - 1.02 MG/DL 11/21/2024 7:50 AM [facility] SODIUM S/P/B 140 136 - 145 MMOL/L 11/21/2024 7:50 AM [facility] POTASSIUM S/P/B 5.2(H) 3.5 - 5.1 MMOL/L 11/21/2024 7:50 AM [facility] CHLORIDE S/P/B 106 100 - 108 MMOL/L 11/21/2024 7:50 AM [facility] CO2 25.8 21 - 32 MMOL/L 11/21/2024 7:50 AM [facility] CALCIUM S/P/B 8.9 8.5 - 10.1 MG/DL 11/21/2024 7:50 AM RN MDS COORDINATOR [facility] ANION GAP 8.2 5 - 15 MMOL/L 11/21/2024 7:50 AM [facility] BUN CREATININE RATIO 14.6 6 - 26 11/21/2024 7:50 AM [facility] GFR ESTIMATE 12(L) >90 ML/MIN/1.7 3 M2 11/21/2024 7:50 AM [facility] Comment: NOTE: eGFR is not calculated for patients <18 years of age. This is an estimated GFR calculation using the new CKD EPI creatinine equation without race and so does not require a correction factor for race. This estimated GFR should not be used for calculating drug doses. 11/21/2024 6:50 AM RN MDS COORDINATOR us Swapnil Gilliland MD LABORATORY Final Result [facility] [address] [place] [address], * PROCALCITONIN (PCT) (11/19/2024 5:57 AM RN MDS COORDINATOR) Procalcitonin 0.05 0.00 - 0.25 NG/ML 11/19/2024 10:09 AM [facility] Comment: PROCALCITONIN INTERPRETATION GUIDELINES LOWER [...] OF PCT IS RECOMMENDED. 11/19/2024 5:57 AM RN MDS COORDINATOR Swapnil Gilliland MD LABORATORY Final Result Performing Organization Address [facility] de Phone Number [facility] [address] [place] [address], * BLOOD CULTURE #1 (11/19/2024 5:56 AM RN MDS COORDINATOR) SPEC DESCRIPTION BLOOD-PEDIA TRIC VOLUME 11/18/2024 5:50 PM RN MDS COORDINATOR [facility] SPECIAL REQUESTS NO SPECIAL REQUEST 11/18/2024 5:50 PM RN MDS COORDINATOR [facility] CULTURE RESULT NO GROWTH 5 DAYS 11/24/2024 7:30 AM RN MDS COORDINATOR [facility] BLOOD SPECIMEN OBTAINED FOR BLOOD CULTURE / Unknown 11/19/2024 5:56 AM RN MDS COORDINATOR 11/19/2024 5:57 AM RN MDS COORDINATOR German Ruiz MD MICROBIOLOGY - GENERAL ORDERABL ES Final Result Performing Organization Address [facility] Co de Phone Number [facility] [address] [place] [address], [place] [phone] [facility] [address] [place] [address], [place] [phone] * LACTIC ACID W REFLEX (SEPSIS) (11/18/2024 3:38 PM RN MDS COORDINATOR) LACTIC ACID VENOUS 0.6 0.4 - 2.0 MMOL/L 11/18/2024 4:05 PM RN MDS COORDINATOR [facility] 11/18/2024 3:38 PM RN MDS COORDINATOR German Ruiz MD LABORATORY Final Result [facility] [address] [place] [id number], * CT CHEST WO CON (11/18/2024 3:18 PM RN MDS COORDINATOR) Anatomical Region Laterality Modality Chest Computed Tomogra phy 11/18/2024 4:00 PM RN MDS COORDINATOR Impressions 11/18/2024 4:05 PM RN MDS COORDINATOR Impression: 1. There are mild patchy groundglass opacities in the right middle lobe, and similar-appearing opacities in the central aspect of the left upper lobe, likely infectious in etiology. 2. Additional chronic findings as described. Referred By: Interpreted By: Lawson Ruth MD, 11/18/2024 4:00 PM Narrative 11/18/2024 4:05 PM RN MDS COORDINATOR [facility] [address] [place] [address] Examination: CT CHEST WO CON Exam time: [...] Procedure Note Lawson Ruth MD - 11/18/2024 [facility] [address] [place] [address] Examination: CT CHEST WO CON Exam time: [...] FACIAL BONES WO CON (11/18/2024 3:18 PM RN MDS COORDINATOR) Anatomical Region Laterality Modality Facial Computed Tomogra phy 11/18/2024 4:05 PM RN MDS COORDINATOR Impressions 11/18/2024 4:08 PM RN MDS COORDINATOR IMPRESSION: 1. There is no definite facial bone fracture noted given the limits of motion artifact. 2. There is anterior subluxation of the right and left mandible relative to the temporal mandibular joints of uncertain clinical significance. Referred By: Interpreted By: Lawson Ruth MD, 11/18/2024 4:05 PM Narrative 11/18/2024 4:08 PM RN MDS COORDINATOR [facility] [address] [place] [id number] Examination: CT FACIAL BONES WO CON Exam [...] Procedure Note Lawson Ruth MD - 11/18/2024 [facility] [address] [place] [address] Examination: CT FACIAL BONES WO CON Exam [...] (ABNORMAL) URINALYSIS, AUTO, COMPLETE (11/18/2024 3:03 PM RN MDS COORDINATOR) COLOR (U) YELLOW 11/18/2024 3:21 PM [facility] TRANSPARENCY CLEAR 11/18/2024 3:21 PM [facility] SPECIFIC GRAVITY (U) 1.015 1.000 - 1.030 11/18/2024 3:21 PM [facility] U PH 5.5 5.0 - 9.0 11/18/2024 3:21 PM [facility] LEUKOCYTES (U) 1+(A) NEGATIVE 11/18/2024 3:21 PM [facility] NITRITES NEGATIVE NEGATIVE 11/18/2024 3:21 PM [facility] PROTEIN RANDOM (U) 1+(A) NEGATIVE 11/18/2024 3:21 PM [facility] GLUCOSE (U) NEGATIVE NEGATIVE 11/18/2024 3:21 PM RN MDS COORDINATOR [facility] KETONES MG/DL (U) NEGATIVE NEGATIVE 11/18/2024 3:21 PM [facility] BILIRUBIN (U) NEGATIVE NEGATIVE 11/18/2024 3:21 PM [facility] BLOOD (U) NEGATIVE NEGATIVE 11/18/2024 3:21 PM [facility] WBC/HPF 5-10 0 - 5 /HPF 11/18/2024 3:21 PM [facility] RBC/HPF NONE SEEN 0 - 5 /HPF 11/18/2024 3:21 PM [facility] EPI/HPF RARE /HPF 11/18/2024 3:21 PM [facility] OTHER CASTS (U) RARE /LPF 3:21 PM [facility] Comment:HYALINE URINE SPECIMEN OBTAINED BY CLEAN CATCH PROCEDURE / Unknown 11/18/2024 3:03 PM RN MDS COORDINATOR us German Ruiz MD URINE ORDERABLES Final Result [facility] [address] [place] [address], [place] [phone] * (ABNORMAL) ARTERIAL BLOOD GAS (11/18/2024 2:52 PM RN MDS COORDINATOR) PH ARTERIAL 7.40 7.35 - 7.45 11/18/2024 3:06 PM [facility] PCO2 39.0 35 - 45 MMHG 11/18/2024 3:06 PM [facility] PO2 80.0(L) 83 - 108 MMHG 11/18/2024 3:06 PM [facility] TOTAL CO2 ARTERIAL 25.4(H) 19.0 - 24.0 MMOL/L 11/18/2024 3:06 PM RN MDS COORDINATOR [facility] BASE DEFICIT 0.5 0 - 2 MMOL/L 11/18/2024 3:06 PM [facility] O2 SATURATION 96 94.0 - 98.0 % 11/18/2024 3:06 PM [facility] BICARB ARTERIAL 24.2 21.0 - 28.0 MMOL/L 11/18/2024 3:06 PM [facility] GENEVA TEST POSITIVE 11/18/2024 3:04 PM [facility] O2 ADMIN ARTERIAL ROOM AIR 11/18/2024 3:04 PM [facility] DRAW SITE ARTERIAL DRAWN FROM LEFT WRIST 11/18/2024 3:04 PM [facility] 11/18/2024 2:52 PM RN MDS COORDINATOR German Ruiz MD LABORATORY Final Result [facility] [address] [place] [address], * ECG 12 lead (11/18/2024 2:37 PM RN MDS COORDINATOR) 11/18/2024 2:37 PM RN MDS COORDINATOR Narrative [facility]) RAD - 11/19/2024 10:44 AM RN MDS COORDINATOR [facility] Test Date: 2024-11-18 Pat Name: HEATH SALMERON Department: 85 Room: 104 Gender: Female 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1945 Requested By: GERMAN RUIZ Order Number: [id number] Reading MD: Constantino Carpenter Measurements Intervals [place] Rate: 60 P: 246 SC: 130 QRS: -52 QRSD: 157 T: 73 QT: 482 QTc: 483 Interpretive Statements Sinus Rhythm First Degree AV Block LEFT AXIS DEVIATION [QRS AXIS < -30] LEFT BUNDLE BRANCH BLOCK [120+ ms QRS DURATION, 80+ ms Q/S IN V1/V2, 85+ ms R IN I/aVL/V5/V6] No previous ECG available for comparison MDS COORDINATOR Procedure Note Constantino Carpenter MD - 11/19/2024 [facility] Test Date: 2024-11-18 Pat Name: HEATH SALMERON Department: 85 Room: [facility] Gender: Female 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1945 Requested By: GERMAN RUIZ Order Number: [id number] Reading MD: Constantino Carpenter Measurements Intervals [place] Rate: 60 P: 246 SC: 130 QRS: -52 QRSD: 157 T: 73 QT: 482 QTc: 483 Interpretive Statements Sinus Rhythm First Degree AV Block LEFT AXIS DEVIATION [QRS AXIS < -30] LEFT BUNDLE BRANCH BLOCK [120+ ms QRS DURATION, 80+ ms Q/S IN V1/V2, 85+ms R IN I/aVL/V5/V6] No previous ECG available for comparison MDS COORDINATOR us German Ruiz MD ECG ORDERABLES Final Result Performing Organization Address [facility] Co de Phone Number [facility]) RAD * RESP SYNCYTIAL VIRUS (11/18/2024 2:08 PM RN MDS COORDINATOR) SPECIMEN TYPE NASOPHARYNGEAL SWAB 11/18/2024 2:08 PM RN MDS COORDINATOR [facility] RAPID RSV NEGATIVE NEGATIVE 11/18/2024 2:48 PM RN MDS COORDINATOR [facility] NASOPHARYNGEAL SWAB / Unknown 11/18/2024 2:08 PM RN MDS COORDINATOR us German Ruiz MD MICROBIOLOGY - GENERAL ORDERABL ES Final Result Performing Organization Address City/[facility]/ZIP Co de Phone Number [facility] [address] [place] [address], [place] [phone] * TSH W/REFLEX (11/18/2024 2:02 PM RN MDS COORDINATOR) TSH 1.795 0.358 - 3.74 uIU/ML 11/18/2024 2:55 PM RN MDS COORDINATOR [facility] Comment: HIGH DOSES OF BIOTIN MAY INTERFERE WITH THIS TEST RESULT. CORRELATION TO CLINICAL HISTORY AND PRESENTATION RECOMMENDED. FREE T4 NOT INDICATED 11/18/2024 2:02 PM RN MDS COORDINATOR us German Ruiz MD LABORATORY Final Result [facility] [address] [place] [address], [place] [phone] * (ABNORMAL) PARTIAL THROMBOPLASTIN TIME,PTT (11/18/2024 2:02 PM RN MDS COORDINATOR) PTT 57.3(H) 27.0 - 36.8 SEC 11/18/2024 2:40 PM RN MDS COORDINATOR [facility] 11/18/2024 2:02 PM RN MDS COORDINATOR us German Ruiz MD LABORATORY Final Result Performing Organization Address City/[facility]/ZIP Co de Phone Number [facility] [address] [place] [address], [place] [phone] * (ABNORMAL) PROTIME/INR, VENOUS (11/18/2024 2:02 PM RN MDS COORDINATOR) PROTIME 22.5(H) 9.1 - 12.4 SEC 11/18/2024 2:40 PM RN MDS COORDINATOR [facility] INR 2.0 11/18/2024 2:40 PM RN MDS COORDINATOR [facility] Comment: Recommend INR ranges for Oral Anticoagulant Therapy: Mechanical Cardiac Values 2.5-3.5 All others indication 2.0-3.0 11/18/2024 2:02 PM RN MDS COORDINATOR us German Ruiz MD LABORATORY Final Result Performing Organization Address [facility] Co de Phone Number [facility] [address] [place] [address], [place] [phone] * TROPONIN, QUANT (11/18/2024 2:02 PM RN MDS COORDINATOR) TROPONIN I HIGH SENSITIVITY 26 0 - 50 ng/L 11/18/2024 2:49 PM RN MDS COORDINATOR [facility] Comment: HIGH DOSES OF BIOTIN, TROPONIN-SPECIFIC AUTOANTIBODIES, AND ANTIBODY THERAPY CONTAINING HAMA MAY INTERFERE WITH THIS TEST RESULT. CORRELATION TO CLINICAL HISTORY AND PRESENTATION RECOMMENDED. 11/18/2024 2:02 PM RN MDS COORDINATOR us German Ruiz MD LABORATORY Final Result Performing Organization Address [facility] Co de Phone Number [facility] [address] [place] [address], [place] [phone] * MAGNESIUM (11/18/2024 2:02 PM RN MDS COORDINATOR) MAGNESIUM 2.3 1.8 - 2.4 MG/DL 11/18/2024 2:55 PM RN MDS COORDINATOR [facility] 11/18/2024 2:02 PM RN MDS COORDINATOR us German Ruiz MD LABORATORY Final Result Performing Organization Address [facility] Co de Phone Number [facility] [address] [place] [address], [place] [phone] * LIPASE (11/18/2024 2:02 PM RN MDS COORDINATOR) LIPASE 41 16 - 77 UNITS/L 11/18/2024 2:55 PM RN MDS COORDINATOR [facility] 11/18/2024 2:02 PM RN MDS COORDINATOR us German Ruiz MD LABORATORY Final Result [facility] [address] [place] [address], [place] [phone] * CK (CPK) (11/18/2024 2:02 PM RN MDS COORDINATOR) CPK 71 26 - 192 U/L 11/18/2024 2:55 PM RN MDS COORDINATOR [facility] 11/18/2024 2:02 PM RN MDS COORDINATOR German Ruiz MD LABORATORY Final Result Performing Organization Address [facility] Co de Phone Number [facility] [address] [place] [address], [place] [phone] from Last 3 Months Insurance Advance Directives * Full Code (Latest Code Status on File) Date Activated Date Inactivated Comments 11/18/2024 6:41 PM 11/21/2024 3:34 PM Care Teams Rejogger Relationship Specialty Start Date End Date Oh Goode MD [address] [place] [address] PCP - General FAMILY PRACTICE 01/26/20
[2025-01-15 16:03] LABS: Prothrombin Time 109.8 Seconds (11.1-14.7)
== END 2025-01-15 13:32 | disposition home or self-care (01) ==
PROVIDERS: PCP Family Medicine; Visit Provider Internal Medicine Cardiovascular Disease
DX: I50.9 Heart failure, unspecified (principal)
CPT/HCPCS: 36415; 85610

== ENCOUNTER 2025-01-26 11:06 | Outpatient (CLI) | payer MEDICARE, SELFPAY ==
--- OUTSIDE RECORDS SUMMARY | 2025-01-26 11:09 | XMS_ITS | Clinical Summary ---
Author Organization [facility] Address [address] [place] [address] Care Team Providers Care Architectural Coating Finisher Name Role Phone Oh Goode MD Primary Care Provider [phone] Allergies Active Allergy Reactions Criticality Noted Date Comments Clindamycin Anaphylaxis High 01/26/2020 Morphine Vomiting 03/27/2020 Nitroglycerin Headache 10/12/2024 Nsaids GI Upset 01/26/2020 Penicillins Hives Low 01/26/2020 Ceftriaxone Anaphylaxis High 01/16/2025 Hypotension, airway constriction, itching Medications SITagliptin (JANUVIA) 25 mg Tab Take 1 tablet (25 mg total) by mouth daily. Active carvedilol 12.5 MG tablet Take 1 tablet (12.5 mg total) by mouth 2 (two) times daily. Active vitamin D2, ergocalciferol , (VITAMIN D, ERGOCALCIFEROL ,) 91081 UNITS capsule Take 1 capsule (50,000 Units total) by mouth every 7 days. Active atorvastatin 80 MG tablet Take 1 tablet (80 mg total) by mouth nightly at bedtime. Active gabapentin 300 MG capsule Take 1 capsule (300 mg total) by mouth 3 (three) times daily. Active HYDROcodone-ac etaminophen (NORCO) 10-325 MG tablet Take 1 tablet by mouth 3 (three) times daily. 09/26/20 24 Active tamsulosin (FLOMAX) 0.4 MG Cap Take 1 capsule (0.4 mg total) by mouth every morning. 07/15/20 24 Active famotidine (PEPCID) 20 MG tablet Take 1 tablet (20 mg total) by mouth every 12 (twelve) hours. 10/06/20 Active docusate sodium (COLACE) 100 MG capsule Take 1 capsule (100 mg total) by mouth daily. 07/20/20 Active [facility] ASPIRIN LOW DOSE 81 MG tablet Take 1 tablet (81 mg total) by mouth every morning. 01/01/20 Active amLODIPine (NORVASC) 5 MG tablet Take 1 tablet (5 mg total) by mouth every morning. 07/17/20 Active amiodarone (PACERONE) 200 MG tablet Take 1 tablet (200 mg total) by mouth daily. 07/26/20 Active albuterol sulfate HFA 108 (90 Base) MCG/ACT inhaler Inhale 2 puffs into the lungs 4 (four) times daily. 11/04/20 Active allopurinol (ZYLOPRIM) 100 MG tablet Take 1 tablet (100 mg total) by mouth daily. Active fenofibrate 160 MG tablet Take 1 tablet (160 mg total) by mouth daily. Active furosemide (LASIX) 20 MG tablet Take 1 tablet (20 mg total) by mouth daily. Active melatonin 3 MG tablet Take 1 tablet (3 mg total) by mouth nightly at bedtime. Active warfarin (COUMADIN) 1 MG tablet Take 1 tablet (1 mg total) by mouth daily for 10 days. 10 tablet 01/19/20 Active melatonin 5 MG tablet Take 1 tablet (5 mg total) by mouth nightly at bedtime. 025 Discontinued(Er ror) ezetimibe 10 MG tablet Take 1 tablet (10 mg total) by mouth daily. 025 Discontinued(Er ror) ELIQUIS 5 MG tablet Take 1 tablet (5 mg total) by mouth 2 (two) times daily. 08/20/20 025 Discontinued furosemide (LASIX) 40 MG tablet Take 1 tablet (40 mg total) by mouth daily. 10/26/20 025 Discontinued(Er ror) cefdinir (OMNICEF) 300 MG Cap capsule Take 1 capsule (300 mg total) by mouth daily. 14 capsule 11/21/19 025 Discontinued(Al lergic response) warfarin (COUMADIN) 5 MG tablet Take 1 tablet (5 mg total) by mouth daily. 12/25/19 025 Discontinued(St op Taking at Discharge) LIANE Long, (MEDROL DOSEPAK) 4 MG tablet Follow package directions 01/15/20 025 Discontinued(St op Taking at Discharge) Active Problems Problem Noted Date Diagnosed Date Supratherapeutic INR 01/16/2025 Pneumonia 11/18/2024 Encounters Date Type Department Care Team Description 01/21/2025 Hospital Follow-up Call [facility] Care Management [address] [place] [address] Zhane Salazar LPN Follow Up Call ([facility] 01/15-01/18/25) 01/16/2025 Travel 01/15/2025 9:26 PM CDT - 01/18/2025 12:30 PM CDT Hospital Encounter [facility] Med/Surg [address] [place] [id number] Owen Prajapati MD Daniels, Darcy L, NP Mahtani, Andrew, MD Suresh, Harshil Shrestha MD Medical Problem Discharge Disposition: Home or Self Care (Routine Discharge) 01/15/2025 Travel 11/30/2024 5:32 PM 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 - 11/30/2024 8:45 PM 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 Emergency [facility] Emergency Room [address] [place] [id number] Shira Lira MD URI Discharge Disposition: Home or Self Care (Routine Discharge) 11/30/2024 Travel 11/23/2024 Hospital Follow-up Call [facility] Care Management [address] [place] [address] Zhane Salazar SITE LEASING AGENT Follow Up Call ([facility] 11/18-11/21/23) 11/18/2024 1:47 PM 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 Sometimes 01/16/2025 [employer] Utilities Answer Date Recorded In the past 12 months has e [employer] gas, oil, or water [employer] threatened to shut off services in your home? No 01/16/2025 Humiliation, Afraid, Rape, and Kick questionnair e Answer Date Recorded Within the last year, have y ou been afraid of your partner or ex-partner? No 01/16/2025 Within the last year, have y ou been humiliated or emotionally abused in other ways by your partner or ex-partner? No Within the last year, have y ou been kicked, hit, slapped, or otherwise physically hurt by your partner or ex-partner? No 01/16/2025 Within the last year, have y ou been raped or forced to have any kind of sexual activity by your partner or ex-partner? No 01/16/2025 Social Connection and Isolat ion Panel [NHANES] Answer Date Recorded In a typical week, how many times do you talk on the phone with family, friends, or neighbors? Three times a week 01/16/2025 How often do you get togethe r with friends or relatives? Three times a week 01/16/2025 How often do you attend chur ch or spiritism services? More than 4 times per year 01/16/2025 Do you belong to any clubs o r organizations such as methodist groups, unions, fraternal or athletic groups, or school groups? Yes 01/16/2025 How often do you attend meet ings of the clubs or organizations you belong to? 1 to 4 times per year 01/16/2025 Are you , , di vorced, , never , or living with a partner? 01/16/2025 AUDIT-C Answer Date Recorded Q1: How often do you have a drink containing alc ohol? Monthly or less 01/16/2025 Q2: How many drinks containi ng alcohol do you have on a typical day when you are drinking? 1 or 2 01/16/2025 Q3: How often do you have si x or more drinks on one occasion? Never 01/16/2025 Overall Financial Resource Strain (CARDIA) Answe r Date Recorded How hard is it for you to pa y for the very basics like food, housing, medical care, and heating? Not hard at all 01/16/2025 PHQ-2 Answer Date Recorded Patient Health Questionnaire-2 Score 0 01/16/2025 Hunger Vital Sign Answer Date Recorded Within the past 12 months, y ou worried that your food would run out before you got the money to buy more. Never true 01/17/20 25 Within the past 12 months, t he food you bought just didn't last and you didn't have money to get more. Never true 01/16/2025 PRAPARE - Transportation Answer Date Re corded In the past 12 months, has l ack of transportation kept you from medical appointments or from getting medications? No 01/05 In the past 12 months, has l ack of transportation kept you from meetings, work, or from getting things needed for daily living? No 01/16/2025 Housing Stability Vital Sign Answer Drew e Recorded In the last 12 months, was t here a time when you were not able to pay the mortgage or rent on time? No 01/16/2025 In the past 12 months, how m any times have you moved where you were living? 0 01/16/2025 At any time in the past 12 m [facility], were you homeless or living in a skilled nursing (including now)? 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 Sexual Orientation Not on file Last Filed Vital Signs Vital Sign Reading Time Taken Comments Blood Pressure 124/66 01/18/2025 12:01 PM CDT Pulse 71 01/18/2025 11:00 AM CDT Temperature 36.2 C (97.2 F) 01/18/2025 11:00 AM CDT Respiratory Rate 18 01/18/2025 12:01 PM CDT Oxygen Saturation 95% 01/18/2025 12:01 PM CDT Inhaled Oxygen Concentration - - Weight 89.9 kg (198 lb 3.1 oz) 01/18/2025 3:43 A M CDT Height 167.6 cm (5' 6 ) 01/16/2025 3:35 PM CDT Body Mass Index 31.99 01/16/2025 3:35 PM CDT Plan of Treatment Health Maintenance Due Date [...] (2 - Td or Tdap) 10/05/2026 10/05/2016 PHQ-2 (Physician [place]) Completed 01/16/2025 Meningococcal B Vaccine Aged Out No l [...] ADLs upon discharge from hospital Shama Alston qm nurse Procedure Name Priority Date/Time Associated Diagnosis Comments POCT GLUCOSE - RUELAS DOCKED DEVICE Routine 01/18/2025 11:05 AM CDT CBC W/DIFF AUTOMATED Routine 01/18/2025 9:19 AM CDT BASIC METABOLIC PANEL Routine 01/18/2025 9:19 AM CDT PROTHROMBIN TIME, VENOUS Routine 01/18/2025 9:19 AM CDT POCT GLUCOSE - RUELAS DOCKED DEVICE Routine 01/18/2025 7:03 AM CDT POCT GLUCOSE - RUELAS DOCKED DEVICE Routine 01/17/2025 8:08 PM CDT POCT GLUCOSE - RUELAS DOCKED DEVICE Routine 01/17/2025 3:55 PM CDT POCT GLUCOSE - RUELAS DOCKED DEVICE Routine 01/17/2025 11:57 AM CDT POCT GLUCOSE - RUELAS DOCKED DEVICE Routine 01/17/2025 7:10 AM CDT PROTHROMBIN TIME, VENOUS Routine 01/17/2025 6:14 AM CDT BASIC METABOLIC PANEL Routine 01/17/2025 6:14 AM CDT CBC W/DIFF AUTOMATED Routine 01/17/2025 6:14 AM CDT POCT GLUCOSE - RUELAS DOCKED DEVICE Routine 01/16/2025 8:28 PM CDT POCT GLUCOSE - RUELAS DOCKED DEVICE Routine 01/16/2025 4:12 PM CDT PROTHROMBIN TIME, VENOUS STAT 01/16/2025 12:31 PM CDT POCT GLUCOSE - RUELAS DOCKED DEVICE Routine 01/16/2025 9:37 AM CDT URINE BACTERIA CULTURE STAT 10:08 PM CDT PARTIAL THROMBOPLASTIN TIME,PTT STAT 01/15/2025 10:08 PM CDT PROTHROMBIN TIME, VENOUS STAT 01/15/2025 10:08 PM CDT URINALYSIS, AUTO, COMPLETE STAT 01/15/2025 10:08 PM CDT MAGNESIUM STAT 01/15/2025 10:08 PM CDT COMPREHENSIVE METABOLIC PANEL STAT 01/15/2025 10:08 PM CDT CBC W/DIFF AUTOMATED STAT 01/15/2025 10:08 PM CDT POCT GLUCOSE - RUELAS DOCKED DEVICE Routine 01/15/2025 9:32 PM CDT XR CHEST PA+LAT STAT 11/30/2024 7:31 PM 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 PRO-BRAIN NATRIURETIC PEPTIDE STAT 11/30/2024 6:46 PM 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 COMPREHENSIVE METABOLIC PANEL STAT 11/30/2024 6:46 PM 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 CBC W/DIFF AUTOMATED STAT 11/30/2024 6:46 PM 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 INFLUENZA A & B STAT 11/30/2024 5:35 PM 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 CORONAVIRUS (COVID 19) STAT 5:35 PM 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 POCT GLUCOSE - RUELAS DOCKED DEVICE Routine 11/21/2024 11:17 AM 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 POCT GLUCOSE - RUELAS DOCKED DEVICE Routine 11/21/2024 7:14 AM 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 BASIC METABOLIC PANEL Routine 11/21/2024 6:50 AM 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 POCT GLUCOSE - RUELAS DOCKED DEVICE Routine 11/20/2024 8:57 PM 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 POCT GLUCOSE - RUELAS DOCKED DEVICE Routine 11/20/2024 4:03 PM 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 CBC W/DIFF AUTOMATED Routine 11/20/2024 3:14 PM 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 POCT GLUCOSE - RUELAS DOCKED DEVICE Routine 11/20/2024 11:39 AM 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 POCT GLUCOSE - RUELAS DOCKED DEVICE Routine 11/20/2024 8:06 AM 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 POCT GLUCOSE - RUELAS DOCKED DEVICE Routine 11/20/2024 7:38 AM 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 POCT GLUCOSE - RUELAS DOCKED DEVICE Routine 11/19/2024 8:15 PM 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 POCT GLUCOSE - RUELAS DOCKED DEVICE Routine 11/19/2024 4:19 PM 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 POCT GLUCOSE - RUELAS DOCKED DEVICE Routine 11/19/2024 3:41 PM 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 POCT GLUCOSE - RUELAS DOCKED DEVICE Routine 11/19/2024 12:03 PM 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 POCT GLUCOSE - RUELAS DOCKED DEVICE Routine 11/19/2024 11:29 AM 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 POCT GLUCOSE - RUELAS DOCKED DEVICE Routine 11/19/2024 7:12 AM 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 BASIC METABOLIC PANEL Routine 11/19/2024 5:57 AM 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 PROCALCITONIN (PCT) Routine 11/19/2024 5 :57 AM 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 CBC W/DIFF AUTOMATED Routine 11/19/2024 5:57 AM 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 CULTURE, BACTERIA, BLOOD STAT 11/19/2024 5:56 AM 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 POCT GLUCOSE - RUELAS DOCKED DEVICE Routine 11/18/2024 7:53 PM 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 LACTIC ACID W REFLEX (SEPSIS) STAT 11/18/2024 3:38 PM 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 CT CHEST WO CON STAT 11/18/2024 3:18 PM 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 CT FACIAL BONES WO CON STAT 3:18 PM 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 URINALYSIS, AUTO, COMPLETE STAT 11/18/2024 3:03 PM 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 BLOOD GAS, ARTERIAL LAB STAT 11/18/19 25 2:52 PM 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 ECG 12-LEAD Routine 11/18/2024 2:37 PM 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 Pneumonia CORONAVIRUS (COVID 19) STAT 2:08 PM 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 INFLUENZA A & B STAT 11/18/2024 2:08 PM 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 RESP SYNCYTIAL VIRUS STAT 11/18/2024 2:08 PM 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 TSH W/REFLEX STAT 11/18/2024 2:02 PM 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 MAGNESIUM STAT 11/18/2024 2:02 PM 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 PRO-BRAIN NATRIURETIC PEPTIDE STAT 11/18/2024 2:02 PM 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 LIPASE STAT 11/18/2024 2:02 PM 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 CK (CPK) STAT 11/18/2024 2:02 PM 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 TROPONIN, QUANT STAT 11/18/2024 2:02 PM 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 COMPREHENSIVE METABOLIC PANEL STAT 11/18/2024 2:02 PM 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 PARTIAL THROMBOPLASTIN TIME,PTT STAT 11/18/2024 2:02 PM 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 PROTHROMBIN TIME, VENOUS STAT 11/18/2024 2:02 PM 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 CBC W/DIFF AUTOMATED STAT 11/18/2024 2:02 PM 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 from Last 3 Months Results * (ABNORMAL) POCT glucose (01/18/2025 11:05 AM CDT) Only the most recent of24 resultswithin the time period is included. GLUCOSE POC 173(H) 70 - 110 mg/dL 01/18/2025 11:31 AM CDT [facility] 01/18/2025 11:0 5 AM CDT us Harshil Daniels MD POCT ORDERABLES - DEVIC E Final Result [facility] [address] [place] [address], [place] [phone] * (ABNORMAL) PROTIME/INR, VENOUS (01/18/2025 9:19 AM CDT) Only the most recent of5 resultswithin the time period is included. PROTIME 19.1(H) 9.1 - 12.4 SEC 01/18/2025 9:43 AM CDT [facility] INR 1.7 01/18/2025 9:43 AM CDT [facility] Comment: Recommend INR ranges for Oral Anticoagulant Therapy: Mechanical Cardiac Values 2.5-3.5 All others indication 2.0-3.0 01/18/2025 9:19 AM CDT us Harshil Daniels MD LABORATORY Final R esult [facility] [address] [place] [address], [place] [phone] * (ABNORMAL) BASIC METABOLIC PANEL (01/18/2025 9:19 AM CDT) Only the most recent of4 resultswithin the time period is included. [facility] GLUCOSE 186(H) 70 - 99 MG/DL 01/18/2025 9:57 AM CDT [facility] BUN 43(H) 7 - 18 MG/DL 01/18/2025 9:57 AM CDT [facility] CREATININE S/P/B 2.70(H) 0.55 - 1.02 MG/DL 01/18/2025 9:57 AM CDT [facility] SODIUM S/P/B 137 136 - 145 MMOL/L 01/18/2025 9:57 AM CDT [facility] POTASSIUM S/P/B 4.4 3.5 - 5.1 MMOL/L 01/18/2025 9:57 AM T [facility] CHLORIDE S/P/B 105 100 - 108 MMOL/L 01/18/2025 9:57 AM T [facility] CO2 24.4 21 - 32 MMOL/L 01/18/2025 9:57 AM T [facility] CALCIUM S/P/B 8.6 8.5 - 10.1 MG/DL 01/18/2025 9:57 AM CDT [facility] ANION GAP 7.6 5 - 15 MMOL/L 01/18/2025 9:57 AM T [facility] BUN CREATININE RATIO 15.9 6 - 26 01/18/2025 9:57 AM CDT [facility] GFR ESTIMATE 18(L) >90 ML/MIN/1.7 3 M2 01/18/2025 9:57 AM CDT [facility] Comment: NOTE: eGFR is not calculated for patients <18 years of age. This is an estimated GFR calculation using the new CKD EPI creatinine equation without race and so does not require a correction factor for race. This estimated GFR should not be used for calculating drug doses. 01/18/2025 9:19 AM CDT us Harshil Daniels MD LABORATORY Final R esult [facility] [address] [place] [address], [place] [phone] * (ABNORMAL) CBC W/DIFF AUTOMATED (01/18/2025 9:19 AM CDT) Only the most recent of7 resultswithin the time period is included. WBC 4.46 4.4 - 11.0 x10'3/uL 01/18/2025 10:52 AM CDT [facility] RBC 2.63(L) 4.50 - 5.10 x10'6/uL 01/18/2025 10:52 AM CDT [facility] HGB 9.0(L) 12.3 - 15.3 G/DL 01/18/2025 10:52 AM CDT [facility] HCT 27.9(L) 35.9 - 44.6 % 01/18/2025 10:52 AM CDT [facility] MCV 106.1(H) 80.0 - 96.0 FL 01/18/2025 10:52 AM CDT [facility] MCH 34.2(H) 25.3 - 30.9 PG 01/18/2025 10:52 AM CDT [facility] MCHC 32.3 31.0 - 34.1 G/DL 01/18/2025 10:52 AM CDT [facility] RDW 17.9(H) 12.4 - 15.1 % 01/18/2025 10:52 AM CDT [facility] PLT 291 151 - 353 x10'3/uL 01/18/2025 10:52 AM CDT [facility] MPV 9.6 9.6 - 12.0 FL 01/18/2025 10:52 AM CDT [facility] RBC MORPHOLOGY NORMAL 01/18/2025 10:52 AM CDT [facility] PLT MORPH. NORMAL 01/18/2025 10:52 AM T [facility] WBC MORPHOLOGY NORMAL 01/18/2025 10:52 AM T [facility] LYMPHOCYTES % 30.5 15.8 - 45.0 % 01/18/2025 10:52 AM T [facility] NEUTROPHILS % 59.5 42.1 - 71.9 % 01/18/2025 10:52 AM CDT [facility] MONOCYTES % 6.1 5.7 - 12.5 % 01/18/2025 10:52 AM T [facility] EOSINOPHILS 3.1 0.0 - 5.6 % 01/18/2025 10:52 AM CDT [facility] BASOPHILS 0.4 0.0 - 1.3 % 01/18/2025 10:52 AM T [facility] ABS. NEUTROPHILS 2.65 1.40 - 6.00 x10'3/uL 01/18/2025 10:52 AM T [facility] IMMATURE GRANS % 0.4 0.0 - 0.5 % 01/18/2025 10:52 AM T [facility] ABS. LYMPHOCYTES 1.36 0.80 - 4.70 x10'3/uL 01/18/2025 10:52 AM CDT [facility] 01/18/2025 9:19 AM CDT Harshil Daniels MD LABORATORY Final R esult Performing Organization Address [facility] Co de Phone Number [facility] [address] [place] [address], [place] [phone] * URINE BACTERIA CULTURE (01/15/2025 10:08 PM CDT) SPEC DESCRIPTION URINE CLEAN CATCH 01/16/2025 1:50 PM CDT [facility] SPECIAL REQUESTS NO SPECIAL REQUEST 01/16/2025 1:50 PM CDT [facility] CULTURE RESULT POLYMICROBIAL GROWTH CONSISTENT WITH NORMAL GENITAL LEWIS. SUSCEPTIBILITIES NOT ROUTINELY PERFORMED. 01/19/2025 7:43 AM CDT [facility] URINE SPECIMEN OBTAINED BY CLEAN CATCH PROCEDURE / Unknown 01/15/2025 10:08 PM CDT 01/16/2025 1:50 PM CDT Kole Guzman MD MICROBIOLOGY - GENERAL ORDERAB LES Final Result Performing Organization Address [facility] de Phone Number [facility] [address] [place] [address], [place] [phone] [facility] [address] [place] [address], [place] [phone] * (ABNORMAL) URINALYSIS, AUTO, COMPLETE (01/15/2025 10:08 PM CDT) Only the most recent of2 resultswithin the time period is included. COLOR (U) YELLOW 01/15/2025 10:44 PM CDT [facility] TRANSPARENCY CLEAR 01/15/2025 10:44 PM CDT [facility] SPECIFIC GRAVITY (U) 1.025 1.000 - 1.030 01/15/2025 10:44 PM CDT [facility] U PH 5.5 5.0 - 9.0 01/15/2025 10:44 PM CDT [facility] LEUKOCYTES (U) NEGATIVE NEGATIVE 01/15/2025 10:44 PM CDT [facility] NITRITES NEGATIVE NEGATIVE 01/15/2025 10:44 PM CDT [facility] PROTEIN RANDOM (U) 2+(A) NEGATIVE 01/15/2025 10:44 PM CDT [facility] GLUCOSE (U) 3+(A) NEGATIVE 01/15/2025 10:44 PM CDT [facility] KETONES MG/DL (U) NEGATIVE NEGATIVE 01/15/2025 10:44 PM CDT [facility] BILIRUBIN (U) NEGATIVE NEGATIVE 01/15/2025 10:44 PM CDT [facility] BLOOD (U) NEGATIVE NEGATIVE 01/15/2025 10:44 PM T [facility] WBC/HPF 0-5 0 - 5 /HPF 01/15/2025 10:44 PM T [facility] RBC/HPF NONE SEEN 0 - 5 /HPF 01/15/2025 10:44 PM CDT [facility] EPI/HPF FEW /HPF 01/15/2025 10:44 PM CDT [facility] URINE SPECIMEN OBTAINED BY CLEAN CATCH PROCEDURE / Unknown 01/15/2025 10:08 PM CDT us Owen Prajapati MD URINE ORDERABLES Final Res ult [facility] [address] [place] [address], [place] [phone] * (ABNORMAL) PARTIAL THROMBOPLASTIN TIME,PTT (01/15/2025 10:08 PM CDT) Only the most recent of2 resultswithin the time period is included. PTT 130.8(HH) 27.0 - 36.8 SEC 01/16/2025 12:05 AM CDT [facility] Comment: CALLED RESULT CALLED TO EDUAR BEASLEY READ BACK AND VERIFIED 01/15/2025 10:0 8 PM CDT Owen Prajapati MD LABORATORY Final Resu lt [facility] [address] [place] [address], [place] [phone] * (ABNORMAL) COMPREHENSIVE METABOLIC PANEL (01/15/2025 10:08 PM CDT) Only the most recent of3 resultswithin the time period is included. Pathologist [facility] GLUCOSE 249(H) 70 - 99 MG/DL 01/15/2025 10:38 PM CDT [facility] BUN 40(H) 7 - 18 MG/DL 01/15/2025 10:38 PM CDT [facility] CREATININE S/P/B 3.06(H) 0.55 - 1.02 MG/DL 01/15/2025 10:38 PM CDT [facility] SODIUM S/P/B 140 136 - 145 MMOL/L 01/15/2025 10:38 PM CDT [facility] POTASSIUM S/P/B 5.1 3.5 - 5.1 MMOL/L 01/15/2025 10:38 PM CDT [facility] CHLORIDE S/P/B 107 100 - 108 MMOL/L 01/15/2025 10:38 PM CDT [facility] CO2 21.6 21 - 32 MMOL/L 01/15/2025 10:38 PM [facility] CALCIUM S/P/B 8.2(L) 8.5 - 10.1 MG/DL 01/15/2025 10:38 PM [facility] BILIRUBIN TOTAL S/P/B 0.4 0.2 - 1.2 MG/DL 01/15/2025 10:38 PM [facility] TOTAL PROTEIN S/P/B 6.2(L) 6.4 - 8.2 G/DL 01/15/2025 10:38 PM [facility] ALBUMIN S/P/B 2.8(L) 3.4 - 5.0 G/DL 01/15/2025 10:38 PM [facility] AST 35 15 - 37 U/L 01/15/2025 10:38 PM [facility] ALT 26 14 - 55 U/L 01/15/2025 10:38 PM [facility] ALKALINE PHOSPHATASE S/P/B 92 50 - 136 U/L 01/15/2025 10:38 PM [facility] ANION GAP 11.4 5 - 15 MMOL/L 01/15/2025 10:38 PM [facility] BUN CREATININE RATIO 13.1 6 - 26 01/15/2025 10:38 PM [facility] A/G RATIO 0.8(L) 1.0 - 2.0 RATIO 01/15/2025 10:38 PM [facility] GFR ESTIMATE 15(L) >90 ML/MIN/1.7 3 M2 01/15/2025 10:38 PM [facility] Comment: NOTE: eGFR is not calculated for patients <18 years of age. This is an estimated GFR calculation using the new CKD EPI creatinine equation without race and so does not require a correction factor for race. This estimated GFR should not be used for calculating drug doses. 01/15/2025 10:0 8 PM CDT us Owen Prajapati MD LABORATORY Final Resu lt Performing Organization Address City/[facility]/ZIP Co de Phone Number [facility] [address] [place] [address], [place] [phone] * MAGNESIUM (01/15/2025 10:08 PM CDT) Only the most recent of2 resultswithin the time period is included. MAGNESIUM 2.1 1.8 - 2.4 MG/DL 01/15/2025 10:38 PM CDT [facility] 01/15/2025 10:0 8 PM CDT Owen Prajapati MD LABORATORY Final Resu lt Performing Organization Address [facility] [place]/[facility] Co de Phone Number [facility] [address] [place] [address], [place] [phone] * XR CHEST PA+LAT (11/30/2024 7:31 PM 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) Anatomical Region Laterality Modality Chest Radiographic Mayi ging 11/30/2024 7:33 PM 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 Impressions 11/30/2024 7:36 PM 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 IMPRESSION: 1. No radiographic evidence of active disease in the chest. 2. When comparing chest x-ray to CT there appears to be interval resolution of previously seen bilateral been noninfectious process. Referred By: Interpreted By: Marjan Mclaughlin DO, 11/30/2024 7:33 PM Narrative 11/30/2024 7:36 PM 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 [facility] [address] [facility] [place] [address] CLINICAL INDICATION: 79-year-old female. Cough, dyspnea. 11/30/2024 [...] Procedure Note Marjan Mclaughlin MD - 11/30/2024 [facility] [address] [place] [address] CLINICAL INDICATION: 79-year-old female. Cough, dyspnea. 11/30/2024 [...] (ABNORMAL) PRO-BRAIN NATRIURETIC PEPTIDE (11/30/2024 6:46 PM 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) Only the most recent of2 resultswithin the time period is included. PRO-B TYPE NATRIURETIC PEPTIDE 2,703(H) <450 PG/ML 11/30/2024 7:27 PM 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 [facility] Comment: CUT POINTS ESTABLISHED BY INTERNATIONAL [...] 72% FOR ACUTE CHF. 11/30/2024 6:46 PM 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 Shira Lira MD LABORATORY Final Resu lt [facility] [address] [place] [address], [place] [phone] * CORONAVIRUS (COVID-19) MOLECULAR (11/30/2024 5:35 PM 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) Only the most recent of2 resultswithin the time period is included. [facility] CORONAVIRUS SARS COV 2 RNA NEGATIVE NEGATIVE 11/30/2024 6:11 PM 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 [facility] Comment: NEGATIVE RESULTS DO NOT RULE [...] SARS-COV-2. SPECIMEN TYPE NASAL 11/30/2024 5:38 PM 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 [facility] NASOPHARYNGEAL SWAB / Unknown 11/30/2024 5:35 PM 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 us Shira Lira MD MICROBIOLOGY - GENERAL ORD ERABLES Final Result Performing Organization Address City/[facility]/ZIP Co de Phone Number [facility] [address] [place] [address], [place] [phone] * INFLUENZA A & B (11/30/2024 5:35 PM 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) Only the most recent of2 resultswithin the time period is included. SPECIMEN TYPE NASOPHARYNX 11/30/2024 5:44 PM 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 [facility] INFLUENZA A NEGATIVE NEGATIVE 11/30/2024 6:01 PM 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 [facility] INFLUENZA B NEGATIVE NEGATIVE 11/30/2024 6:01 PM 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 [facility] NASOPHARYNGEAL SWAB / Unknown 11/30/2024 5:35 PM 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 Shira Lira MD MICROBIOLOGY - GENERAL ORD ERABLES Final Result Performing Organization Address [facility] [place]/[facility] Co de Phone Number [facility] [address] [place] [address], [place] [phone] * PROCALCITONIN (PCT) (11/19/2024 5:57 AM 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) Procalcitonin 0.05 0.00 - 0.25 NG/ML 11/19/2024 10:09 AM 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 [facility] Comment: PROCALCITONIN INTERPRETATION GUIDELINES LOWER RESPIRATORY [...] OF PCT IS RECOMMENDED. 11/19/2024 5:57 AM 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 us Swapnil Gilliland MD LABORATORY Final Result Performing Organization Address [facility] [place]/[facility]/ZIP Co de Phone Number [facility] [address] [place] [address], [place] [phone] * BLOOD CULTURE #1 (11/19/2024 5:56 AM 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) SPEC DESCRIPTION BLOOD-PEDIA TRIC VOLUME 11/18/2024 5:50 PM 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 [facility] SPECIAL REQUESTS NO SPECIAL REQUEST 11/18/2024 5:50 PM 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 [facility] CULTURE RESULT NO GROWTH 5 DAYS 11/24/2024 7:30 AM 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 [facility] BLOOD SPECIMEN OBTAINED FOR BLOOD CULTURE / Unknown 11/19/2024 5:56 AM 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 11/19/2024 5:57 AM 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 German Ruiz MD MICROBIOLOGY - GENERAL ORDERABL ES Final Result Performing Organization Address City/[facility]/ZIP Co de Phone Number [facility] [address] [place] [address], [place] [phone] [facility] [address] [place] [address], [place] [phone] * LACTIC ACID W REFLEX (SEPSIS) (11/18/2024 3:38 PM 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) LACTIC ACID VENOUS 0.6 0.4 - 2.0 MMOL/L 11/18/2024 4:05 PM 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 [facility] 11/18/2024 3:38 PM 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 German Ruiz MD LABORATORY Final Result [facility] [address] [place] [address], [place] [phone] * CT CHEST WO CON (11/18/2024 3:18 PM 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) Anatomical Region Laterality Modality Chest Computed Tomogra phy 11/18/2024 4:00 PM 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 Impressions 11/18/2024 4:05 PM 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 Impression: 1. There are mild patchy groundglass opacities in the right middle lobe, and similar-appearing opacities in the central aspect of the left upper lobe, likely infectious in etiology. 2. Additional chronic findings as described. Referred By: Interpreted By: Lawson Ruth MD, 11/18/2024 4:00 PM Narrative 11/18/2024 4:05 PM 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 [facility] [address] [facility] [facility] [address]. [place] [id number] Examination: CT CHEST WO CON Exam time: [...] Procedure Note Lawson Ruth MD - 11/18/2024 [facility] [address] [place] [address] Examination: CT CHEST WO CON Exam time: [...] By: Lawson Ruth MD, 11/18/2024 4:00 PM us Geramn Ruiz MD CT Final Result * CT FACIAL BONES WO CON (11/18/2024 3:18 PM 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) Anatomical Region Laterality Modality Facial Computed Tomogra phy 11/18/2024 4:05 PM 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 Impressions 11/18/2024 4:08 PM 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 IMPRESSION: 1. There is no definite facial bone fracture noted given the limits of motion artifact. 2. There is anterior subluxation of the right and left mandible relative to the temporal mandibular joints of uncertain clinical significance. Referred By: Interpreted By: Laswon Ruth MD, 11/18/2024 4:05 PM Narrative 11/18/2024 4:08 PM 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 [facility] [address] [facility] [address] Examination: CT FACIAL BONES WO CON Exam [...] Procedure Note Lawson Ruth MD - 11/18/2024 [facility] [address] [place] [id number] Examination: CT FACIAL BONES WO CON Exam [...] Ruiz MD CT Final Result * (ABNORMAL) ARTERIAL BLOOD GAS (11/18/2024 2:52 PM 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) PH ARTERIAL 7.40 7.35 - 7.45 11/18/2024 3:06 PM [facility] PCO2 39.0 35 - 45 MMHG 11/18/2024 3:06 PM [facility] PO2 80.0(L) 83 - 108 MMHG 11/18/2024 3:06 PM [facility] TOTAL CO2 ARTERIAL 25.4(H) 19.0 - 24.0 MMOL/L 11/18/2024 3:06 PM [facility] BASE DEFICIT 0.5 0 - 2 MMOL/L 11/18/2024 3:06 PM [facility] O2 SATURATION 96 94.0 - 98.0 % 11/18/2024 3:06 PM [facility] BICARB ARTERIAL 24.2 21.0 - 28.0 MMOL/L 11/18/2024 3:06 PM 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 [facility] GENEVA TEST POSITIVE 11/18/2024 3:04 PM [facility] O2 ADMIN ARTERIAL ROOM AIR 11/18/2024 3:04 PM [facility] DRAW SITE ARTERIAL DRAWN FROM LEFT WRIST 11/18/2024 3:04 PM 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 [facility] 11/18/2024 2:52 PM 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 us German Ruiz MD LABORATORY Final Result [facility] [address] [place] [address], * ECG 12 lead (11/18/2024 2:37 PM 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) 11/18/2024 2:37 PM 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 Narrative [facility] - 11/19/2024 10:44 AM 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 [facility] Test Date: 2024-11-18 Pat Name: HEATH SALMERON Department: 85 Room: [facility] Gender: Female [employer] 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1945 Requested By: GERMAN RUIZ Order Number: [id number] Reading MD: Constantino Carpenter Measurements Intervals Harman Rate: 60 P: 246 OK: 130 QRS: -52 QRSD: 157 T: 73 QT: 482 QTc: 483 Interpretive Statements Sinus Rhythm First Degree AV Block LEFT AXIS DEVIATION [QRS AXIS < -30] LEFT BUNDLE BRANCH BLOCK [120+ ms QRS DURATION, 80+ ms Q/S IN V1/V2, 85+ ms R IN I/aVL/V5/V6] No previous ECG available for comparison RSIFIED 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 Procedure Note Constantino Carpenter MD - 11/19/2024 [facility] Test Date: 2024-11-18 Pat Name: HEATH SALMERON Department: 85 Room: 104 Gender: Female [employer] 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1945 Requested By: GERMAN RUIZ Order Number: [id number] Reading MD: Constantino Carpenter Measurements Intervals Harman Rate: 60 P: 246 OK: 130 QRS: -52 QRSD: 157 T: 73 QT: 482 QTc: 483 Interpretive Statements Sinus Rhythm First Degree AV Block LEFT AXIS DEVIATION [QRS AXIS < -30] LEFT BUNDLE BRANCH BLOCK [120+ ms QRS DURATION, 80+ ms Q/S IN V1/V2, 85+ms R IN I/aVL/V5/V6] No previous ECG available for comparison RSIFIED 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 German Ruiz MD ECG ORDERABLES Final Result Performing Organization Address [facility] Co de Phone Number [facility] * RESP SYNCYTIAL VIRUS (11/18/2024 2:08 PM 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) SPECIMEN TYPE NASOPHARYNGEAL SWAB 11/18/2024 2:08 PM 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 [facility] RAPID RSV NEGATIVE NEGATIVE 11/18/2024 2:48 PM 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 [facility] NASOPHARYNGEAL SWAB / Unknown 11/18/2024 2:08 PM 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 German Ruiz MD MICROBIOLOGY - GENERAL ORDERABL ES Final Result Performing Organization Address City/[facility]/ZIP Co de Phone Number [facility] [address] [place] [address], [place] [phone] * TSH W/REFLEX (11/18/2024 2:02 PM 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) TSH 1.795 0.358 - 3.74 uIU/ML 11/18/2024 2:55 PM 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 [facility] Comment: HIGH DOSES OF BIOTIN MAY INTERFERE WITH THIS TEST RESULT. CORRELATION TO CLINICAL HISTORY AND PRESENTATION RECOMMENDED. FREE T4 NOT INDICATED 11/18/2024 2:02 PM 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 us German Ruiz MD LABORATORY Final Result Performing Organization Address [facility]/ZIP Co de Phone Number [facility] [address] [place] [address], [place] [phone] * TROPONIN, QUANT (11/18/2024 2:02 PM 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) TROPONIN I HIGH SENSITIVITY 26 0 - 50 ng/L 11/18/2024 2:49 PM 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 [facility] Comment: HIGH DOSES OF BIOTIN, TROPONIN-SPECIFIC AUTOANTIBODIES, AND ANTIBODY THERAPY CONTAINING HAMA MAY INTERFERE WITH THIS TEST RESULT. CORRELATION TO CLINICAL HISTORY AND PRESENTATION RECOMMENDED. 11/18/2024 2:02 PM 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 us German Ruiz MD LABORATORY Final Result Performing Organization Address [facility] Co de Phone Number [facility] [address] [place] [address], [place] [phone] * LIPASE (11/18/2024 2:02 PM 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) LIPASE 41 16 - 77 UNITS/L 11/18/2024 2:55 PM 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 [facility] 11/18/2024 2:02 PM 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 us German Ruiz MD LABORATORY Final Result Performing Organization Address City/[facility]/ZIP Co de Phone Number [facility] [address] [place] [address], [place] [phone] * CK (CPK) (11/18/2024 2:02 PM 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) CPK 71 26 - 192 U/L 11/18/2024 2:55 PM 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 [facility] 11/18/2024 2:02 PM 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 German Ruiz MD LABORATORY Final Result [facility] [address] [place] [address], [place] [phone] from Last [address] [place] [address] [place] [address] Advance Directives * Full Code (Latest Code Status on File) Date Activated Date Inactivated Comments 01/16/2025 12:30 PM 01/18/2025 2:41 PM * Full Code Date Activated Date Inactivated Comments 11/18/2024 6:41 PM 11/21/2024 3:34 PM Care 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
[2025-01-26 11:31] LABS: Hematocrit 29.9 % (37.0-47.0); Hemoglobin 9.3 g/dL (12.0-15.0); Mean Corpuscular HGB Conc 31.1 g/dl (32-36); Mean Corpuscular Hemoglobin 33.8 pg (26-34); Mean Corpuscular Volume 108.7 fl (80-100); Mean Platelet Volume 9.7 fl (7.4-10.4); Platelet Count Result 264 k/mm3 (150-375); Red Blood Count 2.75 M/mm3 (4.2-5.4); White Blood Count 4.6 K/mm3 (4.5-10.0)
[2025-01-26 11:43] LABS: Albumin Level 3.3 g/dL (3.5-5.1); Anion Gap 5 mmol/L (4-12); Blood Urea Nitrogen 39 mg/dL (7-17); Calcium 8.6 mg/dL (8.4-10.2); Carbon Dioxide 28 mmol/L (22-30); Chloride 108 mmol/L (98-107); Estimated Glomerular Filt Rate 15; Glucose 197 mg/dL (65-110); Phosphorus 4.2 mg/dL (2.5-4.5); Potassium 4.4 mmol/L (3.4-5.0); Sodium 141 mmol/L (137-145)
[2025-01-26 11:54] LABS: Parathyroid Intact 111.8 pg/mL (14.5-75.2)
[2025-01-26 11:59] LABS: Creatinine Urine 90.7 mg/dL; Total Protein Urine Random 161 mg/dL; Ur Ttl Prot Creatinine Ratio 1.78 mg/mg (0-0.20)
== END 2025-01-26 11:07 | disposition home or self-care (01) ==
LOC: ANHLAB 11:07
PROVIDERS: PCP Family Medicine; Visit Provider Internal Medicine Nephrology
DX: N18.4 Chronic kidney disease, stage 4 (severe) (principal)
CPT/HCPCS: 36415; 80069; 82570; 83970; 84156; 85027

== ENCOUNTER 2025-01-29 14:09 | Outpatient (CLI) | payer MEDICARE, SELFPAY ==
--- OUTSIDE RECORDS SUMMARY | 2025-01-29 16:36 | XMS_ITS | Clinical Summary ---
Author Organization [facility] Address [address] [place] [address] Care Team Providers Care Segmental Paving Supervisor Name Role Phone Oh Goode MD Primary Care Provider [phone] Allergies Active Allergy Reactions Criticality Noted Date [...] D2, ergocalciferol , (VITAMIN D, ERGOCALCIFEROL ,) 20994 UNITS capsule Take 1 capsule (50,000 Units [...] total) by mouth nightly at bedtime. Active melatonin 5 MG tablet Take 1 tablet (5 mg total) by mouth nightly at bedtime. Discontinued(Er ror) ezetimibe 10 MG tablet Take 1 tablet (10 mg total) by mouth daily. Discontinued(Er ror) ELIQUIS 5 MG tablet Take [...] 01/15/20 025 Discontinued(St op Taking at Discharge) warfarin (COUMADIN) 1 MG tablet Take 1 tablet (1 mg total) by mouth daily for 10 days. 10 tablet 01/19/20 025 Active Problems Problem Noted Date Diagnosed Date Supratherapeutic INR 01/16/2025 Pneumonia 11/18/2024 Encounters Date Type Department Care Team Description 01/21/2025 Hospital Follow-up Call [facility] Care Management [address] [place] [address] Zhane Salazar LPN Follow Up Call ([facility] 01/15-01/18/25) 01/16/2025 Travel 01/15/2025 9:26 PM CDT - 01/18/2025 12:30 PM CDT Hospital Encounter [facility] Med/Surg [address] [place] [id number] Owen Prajapati MD Daniels, Darcy L, NP Mahtani, Andrew, MD Suresh, Harshil Shrestha MD Medical Problem Discharge Disposition: Home or Self Care (Routine Discharge) 01/15/2025 Travel 11/30/2024 5:32 PM THEORETICAL PHYSICS TEACHER - 11/30/2024 8:45 PM THEORETICAL PHYSICS TEACHER Emergency [facility] Emergency Room [address] [place] [id number] Shira Lira MD URI Discharge Disposition: Home or Self Care (Routine Discharge) 11/30/2024 Travel 11/23/2024 Hospital Follow-up Call [facility] [address] [place] [address] Zhane Salazar LPN Follow Up Call ([facility] 11/18-11/21/23) 11/18/2024 1:47 PM THEORETICAL PHYSICS TEACHER - 11/21/2024 1:29 PM THEORETICAL PHYSICS TEACHER Hospital Encounter [facility] Med/Surg [address] [place] [id number] German Ruiz MD Harris, Michael, MD Mahtani, [...] from your doctor or pharmacy? Sometimes 01/16/2025 [facility] [employer] Answer Date Recorded In the past 12 months has e [employer], gas, oil, or water [employer] threatened to shut off services in your [...] often do you attend chur ch or protestant services? More than 4 times per year 01/16/2025 Do you belong to any clubs o r organizations such as druze groups, unions, fraternal or athletic groups, or [...] any time in the past 12 m [facility], were you homeless or living in a group home (including now)? 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 Procedure Name Priority Date/Time Associated Diagnosis Comments [...] XR CHEST PA+LAT STAT 11/30/2024 7:31 PM THEORETICAL PHYSICS TEACHER PRO-BRAIN NATRIURETIC PEPTIDE STAT 11/30/2024 6:46 PM THEORETICAL PHYSICS TEACHER COMPREHENSIVE METABOLIC PANEL STAT 11/30/2024 6:46 PM THEORETICAL PHYSICS TEACHER CBC W/DIFF AUTOMATED STAT 11/30/2024 6:46 PM THEORETICAL PHYSICS TEACHER INFLUENZA A & B STAT 11/30/2024 5:35 PM THEORETICAL PHYSICS TEACHER CORONAVIRUS (COVID 19) STAT 5:35 PM THEORETICAL PHYSICS TEACHER POCT GLUCOSE - RUELAS DOCKED DEVICE Routine 11/21/2024 11:17 AM THEORETICAL PHYSICS TEACHER POCT GLUCOSE - RUELAS DOCKED DEVICE Routine 11/21/2024 7:14 AM THEORETICAL PHYSICS TEACHER BASIC METABOLIC PANEL Routine 11/21/2024 6:50 AM THEORETICAL PHYSICS TEACHER POCT GLUCOSE - RUELAS DOCKED DEVICE Routine 11/20/2024 8:57 PM THEORETICAL PHYSICS TEACHER POCT GLUCOSE - RUELAS DOCKED DEVICE Routine 11/20/2024 4:03 PM THEORETICAL PHYSICS TEACHER CBC W/DIFF AUTOMATED Routine 11/20/2024 3:14 PM THEORETICAL PHYSICS TEACHER POCT GLUCOSE - RUELAS DOCKED DEVICE Routine 11/20/2024 11:39 AM THEORETICAL PHYSICS TEACHER POCT GLUCOSE - RUELAS DOCKED DEVICE Routine 11/20/2024 8:06 AM THEORETICAL PHYSICS TEACHER POCT GLUCOSE - RUELAS DOCKED DEVICE Routine 11/20/2024 7:38 AM THEORETICAL PHYSICS TEACHER POCT GLUCOSE - RUELAS DOCKED DEVICE Routine 11/19/2024 8:15 PM THEORETICAL PHYSICS TEACHER POCT GLUCOSE - RUELAS DOCKED DEVICE Routine 11/19/2024 4:19 PM THEORETICAL PHYSICS TEACHER POCT GLUCOSE - RUELAS DOCKED DEVICE Routine 11/19/2024 3:41 PM THEORETICAL PHYSICS TEACHER POCT GLUCOSE - RUELAS DOCKED DEVICE Routine 11/19/2024 12:03 PM THEORETICAL PHYSICS TEACHER POCT GLUCOSE - RUELAS DOCKED DEVICE Routine 11/19/2024 11:29 AM THEORETICAL PHYSICS TEACHER POCT GLUCOSE - RUELAS DOCKED DEVICE Routine 11/19/2024 7:12 AM THEORETICAL PHYSICS TEACHER BASIC METABOLIC PANEL Routine 11/19/2024 5:57 AM THEORETICAL PHYSICS TEACHER PROCALCITONIN (PCT) Routine 11/19/2024 5 :57 AM THEORETICAL PHYSICS TEACHER CBC W/DIFF AUTOMATED Routine 11/19/2024 5:57 AM THEORETICAL PHYSICS TEACHER CULTURE, BACTERIA, BLOOD STAT 11/19/2024 5:56 AM THEORETICAL PHYSICS TEACHER POCT GLUCOSE - RUELAS DOCKED DEVICE Routine 11/18/2024 7:53 PM THEORETICAL PHYSICS TEACHER LACTIC ACID W REFLEX (SEPSIS) STAT 11/18/2024 3:[address] CHEST WO CON STAT 11/18/2024 3:[address] FACIAL BONES WO CON STAT 3:18 PM THEORETICAL PHYSICS TEACHER URINALYSIS, AUTO, COMPLETE STAT 11/18/2024 3:03 PM THEORETICAL PHYSICS TEACHER BLOOD GAS, ARTERIAL LAB STAT 11/18/19 25 2:52 PM THEORETICAL PHYSICS TEACHER ECG 12-LEAD Routine 11/18/2024 2:37 PM THEORETICAL PHYSICS TEACHER Pneumonia CORONAVIRUS (COVID 19) STAT 2:08 PM THEORETICAL PHYSICS TEACHER INFLUENZA A & B STAT 11/18/2024 2:08 PM THEORETICAL PHYSICS TEACHER RESP SYNCYTIAL VIRUS STAT 11/18/2024 2:08 PM THEORETICAL PHYSICS TEACHER TSH W/REFLEX STAT 11/18/2024 2:02 PM THEORETICAL PHYSICS TEACHER MAGNESIUM STAT 11/18/2024 2:02 PM THEORETICAL PHYSICS TEACHER PRO-BRAIN NATRIURETIC PEPTIDE STAT 11/18/2024 2:02 PM THEORETICAL PHYSICS TEACHER LIPASE STAT 11/18/2024 2:02 PM THEORETICAL PHYSICS TEACHER CK (CPK) STAT 11/18/2024 2:02 PM THEORETICAL PHYSICS TEACHER TROPONIN, QUANT STAT 11/18/2024 2:02 PM THEORETICAL PHYSICS TEACHER COMPREHENSIVE METABOLIC PANEL STAT 11/18/2024 2:02 PM THEORETICAL PHYSICS TEACHER PARTIAL THROMBOPLASTIN TIME,PTT STAT 11/18/2024 2:02 PM THEORETICAL PHYSICS TEACHER PROTHROMBIN TIME, VENOUS STAT 11/18/2024 2:02 PM THEORETICAL PHYSICS TEACHER CBC W/DIFF AUTOMATED STAT 11/18/2024 2:02 PM THEORETICAL PHYSICS TEACHER from Last 3 Months Results * (ABNORMAL) POCT glucose (01/18/2025 11:05 AM CDT) Only the most recent of24 resultswithin the time period is included. GLUCOSE POC 173(H) 70 - 110 mg/dL 01/18/2025 11:31 AM CDT [facility] 01/18/2025 11:0 5 AM CDT Harshil Daniels MD POCT ORDERABLES - DEVIC E Final Result [facility] [address] [place] [address], [place] [phone] * (ABNORMAL) PROTIME/INR, VENOUS (01/18/2025 9:19 AM CDT) Only the most recent of5 resultswithin the time period is included. PROTIME 19.1(H) 9.1 - 12.4 SEC 01/18/2025 9:43 AM CDT [facility] INR 1.7 01/18/2025 9:43 AM CDT [facility] Comment: Recommend INR ranges for Oral Anticoagulant Therapy: Mechanical Cardiac Values 2.5-3.5 All others indication 2.0-3.0 01/18/2025 9:19 AM CDT us Harshil Daniels MD LABORATORY Final R esult [facility] [address] [place] [address], [place] [phone] * (ABNORMAL) BASIC METABOLIC PANEL (01/18/2025 9:19 AM CDT) Only the most recent of4 resultswithin the time period is included. [facility] GLUCOSE 186(H) 70 - 99 MG/DL 01/18/2025 9:57 AM CDT [facility] BUN 43(H) 7 - 18 MG/DL 01/18/2025 9:57 AM CDT [facility] CREATININE S/P/B 2.70(H) 0.55 - 1.02 MG/DL 01/18/2025 9:57 AM CDT [facility] SODIUM S/P/B 137 136 - 145 MMOL/L 01/18/2025 9:57 AM CDT [facility] POTASSIUM S/P/B 4.4 3.5 - 5.1 MMOL/L 01/18/2025 9:57 AM T [facility] CHLORIDE S/P/B 105 100 - 108 MMOL/L 01/18/2025 9:57 AM CDT [facility] CO2 24.4 21 - 32 MMOL/L 01/18/2025 9:57 AM CDT [facility] CALCIUM S/P/B 8.6 8.5 - 10.1 MG/DL 01/18/2025 9:57 AM CDT [facility] ANION GAP 7.6 5 - 15 MMOL/L 01/18/2025 9:57 AM CDT [facility] BUN CREATININE RATIO 15.9 6 - 26 01/18/2025 9:57 AM CDT [facility] GFR ESTIMATE 18(L) >90 ML/MIN/1.7 3 M2 01/18/2025 9:57 AM CDT [facility] Comment: NOTE: eGFR is not calculated for patients <18 years of age. This is an estimated GFR calculation using the new CKD EPI creatinine equation without race and so does not require a correction factor for race. This estimated GFR should not be used for calculating drug doses. 01/18/2025 9:19 AM CDT us Harshil Daniels MD LABORATORY Final R esult [facility] [address] [place] [address], [place] [phone] * (ABNORMAL) CBC W/DIFF AUTOMATED (01/18/2025 9:19 AM CDT) Only the most recent of7 resultswithin the time period is included. WBC 4.46 4.4 - 11.0 x10'3/uL 01/18/2025 10:52 AM CDT [facility] RBC 2.63(L) 4.50 - 5.10 x10'6/uL 01/18/2025 10:52 AM CDT [facility] HGB 9.0(L) 12.3 - 15.3 G/DL 01/18/2025 10:52 AM CDT [facility] HCT 27.9(L) 35.9 - 44.6 % 01/18/2025 10:52 AM CDT [facility] MCV 106.1(H) 80.0 - 96.0 FL 01/18/2025 10:52 AM CDT [facility] MCH 34.2(H) 25.3 - 30.9 PG 01/18/2025 10:52 AM CDT [facility] MCHC 32.3 31.0 - 34.1 G/DL 01/18/2025 10:52 AM CDT [facility] RDW 17.9(H) 12.4 - 15.1 % 01/18/2025 10:52 AM CDT [facility] PLT 291 151 - 353 x10'3/uL 01/18/2025 10:52 AM CDT [facility] MPV 9.6 9.6 - 12.0 FL 01/18/2025 10:52 AM CDT [facility] RBC MORPHOLOGY NORMAL 01/18/2025 10:52 AM CDT [facility] PLT MORPH. NORMAL 01/18/2025 10:52 AM T [facility] WBC MORPHOLOGY NORMAL 01/18/2025 10:52 AM CDT [facility] LYMPHOCYTES % 30.5 15.8 - 45.0 % 01/18/2025 10:52 AM CDT [facility] NEUTROPHILS % 59.5 42.1 - 71.9 % 01/18/2025 10:52 AM CDT [facility] MONOCYTES % 6.1 5.7 - 12.5 % 01/18/2025 10:52 AM T [facility] EOSINOPHILS 3.1 0.0 - 5.6 % 01/18/2025 10:52 AM CDT [facility] BASOPHILS 0.4 0.0 - 1.3 % 01/18/2025 10:52 AM CDT [facility] ABS. NEUTROPHILS 2.65 1.40 - 6.00 x10'3/uL 01/18/2025 10:52 AM CDT [facility] IMMATURE GRANS % 0.4 0.0 - 0.5 % 01/18/2025 10:52 AM CDT [facility] ABS. LYMPHOCYTES 1.36 0.80 - 4.70 x10'3/uL 01/18/2025 10:52 AM CDT [facility] 01/18/2025 9:19 AM CDT Harshil Daniels MD LABORATORY Final R esult Performing Organization Address [facility] Co de Phone Number [facility] [address] [place] [address], [place] [phone] * URINE BACTERIA CULTURE (01/15/2025 10:08 PM CDT) SPEC DESCRIPTION URINE CLEAN CATCH 01/16/2025 1:50 PM CDT [facility] SPECIAL REQUESTS NO SPECIAL REQUEST 01/16/2025 1:50 PM CDT [facility] CULTURE RESULT POLYMICROBIAL GROWTH CONSISTENT WITH NORMAL GENITAL LEWIS. SUSCEPTIBILITIES NOT ROUTINELY PERFORMED. 01/19/2025 7:43 AM CDT [facility] URINE SPECIMEN OBTAINED BY CLEAN CATCH PROCEDURE / Unknown 01/15/2025 10:08 PM CDT 01/16/2025 1:50 PM CDT Kole Guzman MD MICROBIOLOGY - GENERAL ORDERAB LES Final Result Performing Organization Address [facility] de Phone Number [facility] [address] [place] [address], [place] [phone] [facility] [address] [place] [address], [place] [phone] * (ABNORMAL) URINALYSIS, AUTO, COMPLETE (01/15/2025 10:08 PM CDT) Only the most recent of2 resultswithin the time period is included. COLOR (U) YELLOW 01/15/2025 10:44 PM CDT [facility] TRANSPARENCY CLEAR 01/15/2025 10:44 PM CDT [facility] SPECIFIC GRAVITY (U) 1.025 1.000 - 1.030 01/15/2025 10:44 PM CDT [facility] U PH 5.5 5.0 - 9.0 01/15/2025 10:44 PM CDT [facility] LEUKOCYTES (U) NEGATIVE NEGATIVE 01/15/2025 10:44 PM CDT [facility] NITRITES NEGATIVE NEGATIVE 01/15/2025 10:44 PM CDT [facility] PROTEIN RANDOM (U) 2+(A) NEGATIVE 01/15/2025 10:44 PM CDT [facility] GLUCOSE (U) 3+(A) NEGATIVE 01/15/2025 10:44 PM CDT [facility] KETONES MG/DL (U) NEGATIVE NEGATIVE 01/15/2025 10:44 PM CDT [facility] BILIRUBIN (U) NEGATIVE NEGATIVE 01/15/2025 10:44 PM CDT [facility] BLOOD (U) NEGATIVE NEGATIVE 01/15/2025 10:44 PM T [facility] WBC/HPF 0-5 0 - 5 /HPF 01/15/2025 10:44 PM CDT [facility] RBC/HPF NONE SEEN 0 - 5 /HPF 01/15/2025 10:44 PM CDT [facility] EPI/HPF FEW /HPF 01/15/2025 10:44 PM CDT [facility] URINE SPECIMEN OBTAINED BY CLEAN CATCH PROCEDURE / Unknown 01/15/2025 10:08 PM CDT us Owen Prajapati MD URINE ORDERABLES Final Res ult [facility] [address] [place] [address], [place] [phone] * (ABNORMAL) PARTIAL THROMBOPLASTIN TIME,PTT (01/15/2025 10:08 PM CDT) Only the most recent of2 resultswithin the time period is included. PTT 130.8(HH) 27.0 - 36.8 SEC 01/16/2025 12:05 AM CDT [facility] Comment: CALLED RESULT CALLED TO EDUAR BEASLEY READ BACK AND VERIFIED 01/15/2025 10:0 8 PM CDT Owen Prajapati MD LABORATORY Final Resu lt [facility] [address] [place] [address], [place] [phone] * (ABNORMAL) COMPREHENSIVE METABOLIC PANEL (01/15/2025 10:08 PM CDT) Only the most recent of3 resultswithin the time period is included. GLUCOSE 249(H) 70 - 99 MG/DL 01/15/2025 10:38 PM CDT [facility] BUN 40(H) 7 - 18 MG/DL 01/15/2025 10:38 PM CDT [facility] CREATININE S/P/B 3.06(H) 0.55 - 1.02 MG/DL 01/15/2025 10:38 PM CDT [facility] SODIUM S/P/B 140 136 - 145 MMOL/L 01/15/2025 10:38 PM CDT [facility] POTASSIUM S/P/B 5.1 3.5 - 5.1 MMOL/L 01/15/2025 10:38 PM CDT [facility] CHLORIDE S/P/B 107 100 - 108 MMOL/L 01/15/2025 10:38 PM CDT [facility] CO2 21.6 21 - 32 MMOL/L 01/15/2025 10:38 PM [facility] CALCIUM S/P/B 8.2(L) 8.5 - 10.1 MG/DL 01/15/2025 10:38 PM [facility] BILIRUBIN TOTAL S/P/B 0.4 0.2 - 1.2 MG/DL 01/15/2025 10:38 PM [facility] TOTAL PROTEIN S/P/B 6.2(L) 6.4 - 8.2 G/DL 01/15/2025 10:38 PM [facility] ALBUMIN S/P/B 2.8(L) 3.4 - 5.0 G/DL 01/15/2025 10:38 PM [facility] AST 35 15 - 37 U/L 01/15/2025 10:38 PM [facility] ALT 26 14 - 55 U/L 01/15/2025 10:38 PM [facility] ALKALINE PHOSPHATASE S/P/B 92 50 - 136 U/L 01/15/2025 10:38 PM [facility] ANION GAP 11.4 5 - 15 MMOL/L 01/15/2025 10:38 PM [facility] BUN CREATININE RATIO 13.1 6 - 26 01/15/2025 10:38 PM [facility] A/G RATIO 0.8(L) 1.0 - 2.0 RATIO 01/15/2025 10:38 PM [facility] GFR ESTIMATE 15(L) >90 ML/MIN/1.7 3 M2 01/15/2025 10:38 PM [facility] Comment: NOTE: eGFR is not [...] LABORATORY Final Resu lt Performing Organization Address City/[facility]/ZIP Co de Phone Number [facility] [address] [place] [address], [place] [phone] * MAGNESIUM (01/15/2025 10:08 PM CDT) Only the most recent of2 resultswithin the time period is included. MAGNESIUM 2.1 1.8 - 2.4 MG/DL 01/15/2025 10:38 PM CDT [facility] 01/15/2025 10:0 8 PM CDT Owen Prajapati MD LABORATORY Final Resu lt Performing Organization Address [facility] de Phone Number [facility] [address] [place] [address], [place] [phone] * XR CHEST PA+LAT (11/30/2024 7:31 PM THEORETICAL PHYSICS TEACHER) Anatomical Region Laterality Modality Chest Radiographic Mayi ging 11/30/2024 7:33 PM THEORETICAL PHYSICS TEACHER Impressions 11/30/2024 7:36 PM THEORETICAL PHYSICS TEACHER IMPRESSION: 1. No radiographic evidence of active disease in the chest. 2. When comparing chest x-ray to CT there appears to be interval resolution of previously seen bilateral been noninfectious process. Referred By: Interpreted By: Marjan Mclaughlin DO, 11/30/2024 7:33 PM Narrative 11/30/2024 7:36 PM THEORETICAL PHYSICS TEACHER [facility] [address] [facility] [place] [address] CLINICAL INDICATION: 79-year-old female. Cough, dyspnea. 11/30/2024 [...] Procedure Note Marjan Mclaughlin MD - 11/30/2024 [facility] [address] [place] [address] CLINICAL INDICATION: 79-year-old female. Cough, dyspnea. 11/30/2024 [...] (ABNORMAL) PRO-BRAIN NATRIURETIC PEPTIDE (11/30/2024 6:46 PM THEORETICAL PHYSICS TEACHER) Only the most recent of2 resultswithin the time period is included. PRO-B TYPE NATRIURETIC PEPTIDE 2,703(H) <450 PG/ML 11/30/2024 7:27 PM THEORETICAL PHYSICS TEACHER [facility] Comment: CUT POINTS ESTABLISHED BY [...] 72% FOR ACUTE CHF. 11/30/2024 6:46 PM THEORETICAL PHYSICS TEACHER Shira Lira MD LABORATORY Final Resu lt [facility] [address] [place] [address], [place] [phone] * CORONAVIRUS (COVID-19) MOLECULAR (11/30/2024 5:35 PM THEORETICAL PHYSICS TEACHER) Only the most recent of2 resultswithin the time period is included. [facility] CORONAVIRUS SARS COV 2 RNA NEGATIVE NEGATIVE 11/30/2024 6:11 PM THEORETICAL PHYSICS TEACHER [facility] Comment: NEGATIVE RESULTS DO NOT [...] SARS-COV-2. SPECIMEN TYPE NASAL 11/30/2024 5:38 PM THEORETICAL PHYSICS TEACHER [facility] NASOPHARYNGEAL SWAB / Unknown 11/30/2024 5:35 PM THEORETICAL PHYSICS TEACHER us Shira Lira MD MICROBIOLOGY - GENERAL ORD ERABLES Final Result Performing Organization Address City/[facility]/ZIP Co de Phone Number [facility] [address] [place] [address], [place] [phone] * INFLUENZA A & B (11/30/2024 5:35 PM THEORETICAL PHYSICS TEACHER) Only the most recent of2 resultswithin the time period is included. SPECIMEN TYPE NASOPHARYNX 11/30/2024 5:44 PM THEORETICAL PHYSICS TEACHER [facility] INFLUENZA A NEGATIVE NEGATIVE 11/30/2024 6:01 PM THEORETICAL PHYSICS TEACHER [facility] INFLUENZA B NEGATIVE NEGATIVE 11/30/2024 6:01 PM THEORETICAL PHYSICS TEACHER [facility] NASOPHARYNGEAL SWAB / Unknown 11/30/2024 5:35 PM THEORETICAL PHYSICS TEACHER Shira Lira MD MICROBIOLOGY - GENERAL ORD ERABLES Final Result Performing Organization Address City/[facility]/ZIP Co de Phone Number [facility] [address] [place] [address], * PROCALCITONIN (PCT) (11/19/2024 5:57 AM THEORETICAL PHYSICS TEACHER) Procalcitonin 0.05 0.00 - 0.25 NG/ML 11/19/2024 10:09 AM THEORETICAL PHYSICS TEACHER [facility] Comment: PROCALCITONIN INTERPRETATION GUIDELINES LOWER [...] OF PCT IS RECOMMENDED. 11/19/2024 5:57 AM THEORETICAL PHYSICS TEACHER Swapnil Gilliland MD LABORATORY Final Result Performing Organization Address [facility]/ZIP Co de Phone Number [facility] [address] [place] [address], [place] [phone] * BLOOD CULTURE #1 (11/19/2024 5:56 AM THEORETICAL PHYSICS TEACHER) SPEC DESCRIPTION BLOOD-PEDIA TRIC VOLUME 11/18/2024 5:50 PM THEORETICAL PHYSICS TEACHER [facility] SPECIAL REQUESTS NO SPECIAL REQUEST 11/18/2024 5:50 PM THEORETICAL PHYSICS TEACHER [facility] CULTURE RESULT NO GROWTH 5 DAYS 11/24/2024 7:30 AM THEORETICAL PHYSICS TEACHER [facility] BLOOD SPECIMEN OBTAINED FOR BLOOD CULTURE / Unknown 11/19/2024 5:56 AM THEORETICAL PHYSICS TEACHER 11/19/2024 5:57 AM THEORETICAL PHYSICS TEACHER German Ruiz MD MICROBIOLOGY - GENERAL ORDERABL ES Final Result Performing Organization Address City/[facility]/ZIP Co de Phone Number [facility] [address] [place] [address], [place] [phone] [facility] [address] [place] [address], [place] [phone] * LACTIC ACID W REFLEX (SEPSIS) (11/18/2024 3:38 PM THEORETICAL PHYSICS TEACHER) LACTIC ACID VENOUS 0.6 0.4 - 2.0 MMOL/L 11/18/2024 4:05 PM THEORETICAL PHYSICS TEACHER [facility] 11/18/2024 3:38 PM THEORETICAL PHYSICS TEACHER German Ruiz MD LABORATORY Final Result [facility] [address] [place] [address], [place] [phone] * CT CHEST WO CON (11/18/2024 3:18 PM THEORETICAL PHYSICS TEACHER) Anatomical Region Laterality Modality Chest Computed Tomogra phy 11/18/2024 4:00 PM THEORETICAL PHYSICS TEACHER Impressions 11/18/2024 4:05 PM THEORETICAL PHYSICS TEACHER Impression: 1. There are mild patchy groundglass opacities in the right middle lobe, and similar-appearing opacities in the central aspect of the left upper lobe, likely infectious in etiology. 2. Additional chronic findings as described. Referred By: Interpreted By: Lawson Ruth MD, 11/18/2024 4:00 PM Narrative 11/18/2024 4:05 PM THEORETICAL PHYSICS TEACHER [facility] [address] [facility]. [place] [id number] Examination: CT CHEST WO CON Exam time: [...] Procedure Note Lawson Ruth MD - 11/18/2024 [facility] [address] [place] [address] Examination: CT CHEST WO CON Exam time: [...] Lawson Ruth MD, 11/18/2024 4:00 PM us German Ruiz MD CT Final Result * CT FACIAL BONES WO CON (11/18/2024 3:18 PM THEORETICAL PHYSICS TEACHER) Anatomical Region Laterality Modality Facial Computed Tomogra phy 11/18/2024 4:05 PM THEORETICAL PHYSICS TEACHER Impressions 11/18/2024 4:08 PM THEORETICAL PHYSICS TEACHER IMPRESSION: 1. There is no definite facial bone fracture noted given the limits of motion artifact. 2. There is anterior subluxation of the right and left mandible relative to the temporal mandibular joints of uncertain clinical significance. Referred By: Interpreted By: Lawson Ruth MD, 11/18/2024 4:05 PM Narrative 11/18/2024 4:08 PM THEORETICAL PHYSICS TEACHER [facility] [address] [place] [address] Examination: CT FACIAL BONES WO CON Exam [...] Procedure Note Lawson Ruth MD - 11/18/2024 [facility] [address] [place] [id number] Examination: CT FACIAL BONES WO CON Exam [...] (ABNORMAL) ARTERIAL BLOOD GAS (11/18/2024 2:52 PM THEORETICAL PHYSICS TEACHER) PH ARTERIAL 7.40 7.35 - 7.45 11/18/2024 3:06 PM [facility] PCO2 39.0 35 - 45 [facility] 11/18/2024 3:06 PM [facility] PO2 80.0(L) 83 - 108 [facility] 11/18/2024 3:06 PM [facility] TOTAL CO2 ARTERIAL 25.4(H) 19.0 - 24.0 MMOL/L 11/18/2024 3:06 PM [facility] BASE DEFICIT 0.5 0 - 2 MMOL/L 11/18/2024 3:06 PM [facility] O2 SATURATION 96 94.0 - 98.0 % 11/18/2024 3:06 PM THEORETICAL PHYSICS TEACHER [facility] BICARB ARTERIAL 24.2 21.0 - 28.0 MMOL/L 11/18/2024 3:06 PM THEORETICAL PHYSICS TEACHER [facility] GENEVA TEST POSITIVE 11/18/2024 3:04 PM [facility] O2 ADMIN ARTERIAL ROOM AIR 11/18/2024 3:04 PM THEORETICAL PHYSICS TEACHER [facility] DRAW SITE ARTERIAL DRAWN FROM LEFT WRIST 11/18/2024 3:04 PM THEORETICAL PHYSICS TEACHER [facility] 11/18/2024 2:52 PM THEORETICAL PHYSICS TEACHER us [place] Ruiz MD LABORATORY Final Result [facility] [address] [place] [address], * ECG 12 lead (11/18/2024 2:37 PM THEORETICAL PHYSICS TEACHER) 11/18/2024 2:37 PM THEORETICAL PHYSICS TEACHER Narrative [facility] RAD - 11/19/2024 10:44 AM THEORETICAL PHYSICS TEACHER [facility] Test Date: 2024-11-18 Pat Name: HEATH SALMERON Department: 85 Room: [facility] Gender: Female Gold Reclaimer: : 1945 Requested By: GERMAN RUIZ Order Number: [id number] Reading MD: Constantino Carpenter Measurements Intervals Cascade Rate: 60 P: 246 VA: 130 QRS: -52 QRSD: 157 T: 73 QT: 482 QTc: 483 Interpretive Statements Sinus Rhythm First Degree AV Block LEFT AXIS DEVIATION [QRS AXIS < -30] LEFT BUNDLE BRANCH BLOCK [120+ ms QRS DURATION, 80+ ms Q/S IN V1/V2, 85+ ms R IN I/aVL/V5/V6] No previous ECG available for comparison RETICAL PHYSICS TEACHER Procedure Note Constantino Carpenter MD - 11/19/2024 [facility] Test Date: 2024-11-18 Pat Name: HEATH SALMERON Department: 85 Room: 104 Gender: Female Gold Reclaimer: : 1945 Requested By: GERMAN RUIZ Order Number: [id number] Reading MD: Constantino Carpenter Measurements Intervals Cascade Rate: 60 P: 246 VA: 130 QRS: -52 QRSD: 157 T: 73 QT: 482 QTc: 483 Interpretive Statements Sinus Rhythm First Degree AV Block LEFT AXIS DEVIATION [QRS AXIS < -30] LEFT BUNDLE BRANCH BLOCK [120+ ms QRS DURATION, 80+ ms Q/S IN V1/V2, 85+ms R IN I/aVL/V5/V6] No previous ECG available for comparison RETICAL PHYSICS TEACHER German Ruiz MD ECG ORDERABLES Final Result Performing Organization Address [facility]/ZIP Co de Phone Number [facility] RAD * RESP SYNCYTIAL VIRUS (11/18/2024 2:08 PM THEORETICAL PHYSICS TEACHER) SPECIMEN TYPE NASOPHARYNGEAL SWAB 11/18/2024 2:08 PM THEORETICAL PHYSICS TEACHER [facility] RAPID RSV NEGATIVE NEGATIVE 11/18/2024 2:48 PM THEORETICAL PHYSICS TEACHER [facility] NASOPHARYNGEAL SWAB / Unknown 11/18/2024 2:08 PM THEORETICAL PHYSICS TEACHER German Ruiz MD MICROBIOLOGY - GENERAL ORDERABL ES Final Result Performing Organization Address City/[facility]/ZIP Co de Phone Number [facility] [address] [place] [address], [place] [phone] * TSH W/REFLEX (11/18/2024 2:02 PM THEORETICAL PHYSICS TEACHER) TSH 1.795 0.358 - 3.74 uIU/ML 11/18/2024 2:55 PM THEORETICAL PHYSICS TEACHER [facility] Comment: HIGH DOSES OF BIOTIN MAY INTERFERE WITH THIS TEST RESULT. CORRELATION TO CLINICAL HISTORY AND PRESENTATION RECOMMENDED. FREE T4 NOT INDICATED 11/18/2024 2:02 PM THEORETICAL PHYSICS TEACHER us German Ruiz MD LABORATORY Final Result Performing Organization Address [facility] Co de Phone Number [facility] [address] [place] [address], [place] [phone] * TROPONIN, QUANT (11/18/2024 2:02 PM THEORETICAL PHYSICS TEACHER) TROPONIN I HIGH SENSITIVITY 26 0 - 50 ng/L 11/18/2024 2:49 PM THEORETICAL PHYSICS TEACHER [facility] Comment: HIGH DOSES OF BIOTIN, TROPONIN-SPECIFIC AUTOANTIBODIES, AND ANTIBODY THERAPY CONTAINING HAMA MAY INTERFERE WITH THIS TEST RESULT. CORRELATION TO CLINICAL HISTORY AND PRESENTATION RECOMMENDED. 11/18/2024 2:02 PM THEORETICAL PHYSICS TEACHER us German Ruiz MD LABORATORY Final Result Performing Organization Address [facility] Co de Phone Number [facility] [address] [place] [address], [place] [phone] * LIPASE (11/18/2024 2:02 PM THEORETICAL PHYSICS TEACHER) LIPASE 41 16 - 77 UNITS/L 11/18/2024 2:55 PM THEORETICAL PHYSICS TEACHER [facility] 11/18/2024 2:02 PM THEORETICAL PHYSICS TEACHER us German Ruiz MD LABORATORY Final Result Performing Organization Address City/[facility]/ZIP Co de Phone Number [facility] [address] [place] [address], [place] [phone] * CK (CPK) (11/18/2024 2:02 PM THEORETICAL PHYSICS TEACHER) CPK 71 26 - 192 U/L 11/18/2024 2:55 PM THEORETICAL PHYSICS TEACHER [facility] 11/18/2024 2:02 PM THEORETICAL PHYSICS TEACHER German Ruiz MD LABORATORY Final Result [facility] [address] [place] [address], [place] [phone] from Last 3 Months Insurance [facility] Advance Directives * Full Code (Latest Code Status on File) Date Activated Date Inactivated Comments 01/16/2025 12:30 PM 01/18/2025 2:41 PM * Full Code Date Activated Date Inactivated Comments 11/18/2024 6:41 PM 11/21/2024 3:34 PM Care Teams Segmental Paving Supervisor Relationship Specialty Start Date End Date Oh Goode MD [address] [place] [address] PCP - General FAMILY PRACTICE 01/26/20
== END 2025-01-29 14:10 | disposition home or self-care (01) ==
LOC: ANHAUDIO 14:10
PROVIDERS: PCP Family Medicine; Visit Provider Otolaryngology Otolaryngology/Facial Plastic Surgery
DX: H90.3 Sensorineural hearing loss, bilateral (principal)
CPT/HCPCS: 92557; 92567

== ENCOUNTER 2025-02-02 07:59 | Outpatient (RCR) | payer MEDICARE, SELFPAY ==
[2025-01-21 16:55] LABS: INR 1.3; Prothrombin Time 16.2 Seconds (11.1-14.7)
[2025-01-26 11:43] LABS: INR 1.3; Prothrombin Time 16.2 Seconds (11.1-14.7)
[2025-02-02 08:43] LABS: INR 1.1; Prothrombin Time 14.8 Seconds (11.1-14.7)
== END 2025-02-08 16:48 | disposition other institution (70) ==
LOC: ANHLAB 07:59
PROVIDERS: PCP Family Medicine; Visit Provider Internal Medicine Cardiovascular Disease
DX: I50.9 Heart failure, unspecified (principal)
CPT/HCPCS: 36415; 85610

== ENCOUNTER 2025-02-08 16:28 | Outpatient (CLI) | payer MEDICARE, SELFPAY ==
--- OUTSIDE RECORDS SUMMARY | 2025-02-08 16:31 | XMS_ITS | Clinical Summary ---
Author Organization [facility] Address [address] [place] [address] Care Team Providers Care Thermal Engineer Name Role Phone Oh Goode MD Primary Care Provider [phone] Allergies Active Allergy Reactions Criticality Noted Date [...] D2, ergocalciferol , (VITAMIN D, ERGOCALCIFEROL ,) 89745 UNITS capsule Take 1 capsule (50,000 Units [...] Care Team Description 01/21/2025 Hospital Follow-up Call [facility] Care Management [address] [place] [address] Zhane Salazar LPN Follow Up Call ([facility] 01/15-01/18/25) 01/16/2025 Travel 01/15/2025 9:26 PM CDT - 01/18/2025 12:30 PM CDT Hospital Encounter [facility] [address] [place] [id number] Owen Prajapati MD Daniels, Darcy L, NP Mahtani, Andrew, MD Suresh, Harshil Shrestha MD Medical Problem Discharge Disposition: Home or Self Care (Routine Discharge) 01/15/2025 Travel 11/30/2024 5:32 PM AIRPORT SECURITY SCREENER - 11/30/2024 8:45 PM AIRPORT SECURITY SCREENER Emergency [facility] Emergency Room [address] [place] [id number] Shira Lira MD URI Discharge Disposition: Home or Self Care (Routine Discharge) 11/30/2024 Travel 11/23/2024 Hospital Follow-up Call [facility] [address] [place] [address] Zhane Salazar LPN Follow Up Call ([facility] 11/18-11/21/23) 11/18/2024 1:47 PM AIRPORT SECURITY SCREENER - 11/21/2024 1:29 PM AIRPORT SECURITY SCREENER Hospital Encounter [facility] [address] [place] [phone] German Ruiz MD Harris, Michael, MD Mahtani, [...] from your doctor or pharmacy? Sometimes 01/16/2025 [employer] Answer Date Recorded In the past 12 months has e [employer], gas, oil, or water [email or web address] threatened to shut off services in your [...] often do you attend chur ch or scientologist services? More than 4 times per year 01/16/2025 Do you belong to any clubs o r organizations such as sikh groups, unions, fraternal or athletic groups, or [...] any time in the past 12 m the rehabilitation institute, were you homeless or living in a retirement (including now)? No 01/16/2025 Comments No Sex and Gender Information Value Date Recorded Sex Assigned at Female 11/20/2024 10:33 AM AIRPORT SECURITY SCREENER Legal Sex Female 4:30 PM CDT Gender Identity Female 11/20/2024 10:33 AM AIRPORT SECURITY SCREENER Sexual Orientation Not on file Last Filed [...] 2024 04/23/2022, 08/25/2021, 02/01/2021, Additional history exists DTaP, Tdap and Td Vaccines (2 - Td or Tdap) 10/05/2026 10/05/2016 PHQ-2 (Physician [place]) Completed 01/16/2025 Meningococcal B Vaccine Aged Out [...] upon discharge from hospital Lifestyle Shama Helton RN Procedures Procedure Name Priority Date/Time Associated [...] XR CHEST PA+LAT STAT 11/30/2024 7:31 PM AIRPORT SECURITY SCREENER PRO-BRAIN NATRIURETIC PEPTIDE STAT 11/30/2024 6:46 PM AIRPORT SECURITY SCREENER COMPREHENSIVE METABOLIC PANEL STAT 11/30/2024 6:46 PM AIRPORT SECURITY SCREENER CBC W/DIFF AUTOMATED STAT 11/30/2024 6:46 PM AIRPORT SECURITY SCREENER INFLUENZA A & B STAT 11/30/2024 5:35 PM AIRPORT SECURITY SCREENER CORONAVIRUS (COVID 19) STAT 5:35 PM AIRPORT SECURITY SCREENER POCT GLUCOSE - RUELAS DOCKED DEVICE Routine 11/21/2024 11:17 AM AIRPORT SECURITY SCREENER POCT GLUCOSE - RUELAS DOCKED DEVICE Routine 11/21/2024 7:14 AM AIRPORT SECURITY SCREENER BASIC METABOLIC PANEL Routine 11/21/2024 6:50 AM AIRPORT SECURITY SCREENER POCT GLUCOSE - RUELAS DOCKED DEVICE Routine 11/20/2024 8:57 PM AIRPORT SECURITY SCREENER POCT GLUCOSE - RUELAS DOCKED DEVICE Routine 11/20/2024 4:03 PM AIRPORT SECURITY SCREENER CBC W/DIFF AUTOMATED Routine 11/20/2024 3:14 PM AIRPORT SECURITY SCREENER POCT GLUCOSE - RUELAS DOCKED DEVICE Routine 11/20/2024 11:39 AM AIRPORT SECURITY SCREENER POCT GLUCOSE - RUELAS DOCKED DEVICE Routine 11/20/2024 8:06 AM AIRPORT SECURITY SCREENER POCT GLUCOSE - RUELAS DOCKED DEVICE Routine 11/20/2024 7:38 AM AIRPORT SECURITY SCREENER POCT GLUCOSE - RUELAS DOCKED DEVICE Routine 11/19/2024 8:15 PM AIRPORT SECURITY SCREENER POCT GLUCOSE - RUELAS DOCKED DEVICE Routine 11/19/2024 4:19 PM AIRPORT SECURITY SCREENER POCT GLUCOSE - RUELAS DOCKED DEVICE Routine 11/19/2024 3:41 PM AIRPORT SECURITY SCREENER POCT GLUCOSE - RUELAS DOCKED DEVICE Routine 11/19/2024 12:03 PM AIRPORT SECURITY SCREENER POCT GLUCOSE - RUELAS DOCKED DEVICE Routine 11/19/2024 11:29 AM AIRPORT SECURITY SCREENER POCT GLUCOSE - RUELAS DOCKED DEVICE Routine 11/19/2024 7:12 AM AIRPORT SECURITY SCREENER BASIC METABOLIC PANEL Routine 11/19/2024 5:57 AM AIRPORT SECURITY SCREENER PROCALCITONIN (PCT) Routine 11/19/2024 5 :57 AM AIRPORT SECURITY SCREENER CBC W/DIFF AUTOMATED Routine 11/19/2024 5:57 AM AIRPORT SECURITY SCREENER CULTURE, BACTERIA, BLOOD STAT 11/19/2024 5:56 AM AIRPORT SECURITY SCREENER POCT GLUCOSE - RUELAS DOCKED DEVICE Routine 11/18/2024 7:53 PM AIRPORT SECURITY SCREENER LACTIC ACID W REFLEX (SEPSIS) STAT 11/18/2024 3:38 [address]ITY [address] CT CHEST WO CON STAT 11/18/2024 3:18 [address] SEC[address]ITY [address]ENER CT FACIAL BONES WO CON STAT 3:18 PM AIRPORT SECURITY SCREENER URINALYSIS, AUTO, COMPLETE STAT 11/18/2024 3:03 PM AIRPORT SECURITY SCREENER BLOOD GAS, ARTERIAL LAB STAT 11/18/19 25 2:52 PM AIRPORT SECURITY SCREENER ECG 12-LEAD Routine 11/18/2024 2:37 PM AIRPORT SECURITY SCREENER Pneumonia CORONAVIRUS (COVID 19) STAT 2:08 PM AIRPORT SECURITY SCREENER INFLUENZA A & B STAT 11/18/2024 2:08 PM AIRPORT SECURITY SCREENER RESP SYNCYTIAL VIRUS STAT 11/18/2024 2:08 PM AIRPORT SECURITY SCREENER TSH W/REFLEX STAT 11/18/2024 2: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 MAGNESIUM STAT 11/18/2024 2: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 PRO-BRAIN NATRIURETIC PEPTIDE STAT 11/18/2024 2: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 LIPASE STAT 11/18/2024 2: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 CK (CPK) STAT 11/18/2024 2: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 TROPONIN, QUANT STAT 11/18/2024 2: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 COMPREHENSIVE METABOLIC PANEL STAT 11/18/2024 2: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 PARTIAL THROMBOPLASTIN TIME,PTT STAT 11/18/2024 2: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 PROTHROMBIN TIME, VENOUS STAT 11/18/2024 2: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 CBC W/DIFF AUTOMATED STAT 11/18/2024 2: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 from Last 3 Months Results * (ABNORMAL) POCT glucose (01/18/2025 11:05 AM CDT) Only the most recent of24 resultswithin the time period is included. GLUCOSE POC 173(H) 70 - 110 mg/dL 01/18/2025 11:31 AM CDT [facility] 01/18/2025 11:0 5 AM CDT Harshil Daniels MD POCT ORDERABLES - DEVIC E Final Result Performing Organization Address [facility] de Phone Number [facility] [address] [place] [address], [place] [phone] * (ABNORMAL) PROTIME/INR, VENOUS (01/18/2025 9:19 AM CDT) Only the most recent of5 resultswithin the time period is included. PROTIME 19.1(H) 9.1 - 12.4 SEC 01/18/2025 9:43 AM CDT [facility] INR 1.7 01/18/2025 9:43 AM CDT [facility] Comment: Recommend INR ranges for Oral Anticoagulant Therapy: Mechanical Cardiac Values 2.5-3.5 All others indication 2.0-3.0 01/18/2025 9:19 AM CDT us Harshil Daniels MD LABORATORY Final R esult Performing Organization Address City/[facility]/ZIP Co de Phone Number [facility] [address] [place] [address], * (ABNORMAL) BASIC METABOLIC PANEL (01/18/2025 9:19 AM CDT) Only the most recent of4 resultswithin the time period is included. [facility] GLUCOSE 186(H) 70 - 99 MG/DL 01/18/2025 9:57 AM CDT [facility] BUN 43(H) 7 - 18 MG/DL 01/18/2025 9:57 AM T [facility] CREATININE S/P/B 2.70(H) 0.55 - 1.02 MG/DL 01/18/2025 9:57 AM T [facility] SODIUM S/P/B 137 136 - 145 MMOL/L 01/18/2025 9:57 AM T [facility] POTASSIUM S/P/B 4.4 3.5 - 5.1 MMOL/L 01/18/2025 9:57 AM T [facility] CHLORIDE S/P/B 105 100 - 108 MMOL/L 01/18/2025 9:57 AM [facility] CO2 24.4 21 - 32 MMOL/L 01/18/2025 9:57 AM T [facility] CALCIUM S/P/B 8.6 8.5 - 10.1 MG/DL 01/18/2025 9:57 AM T [facility] ANION GAP 7.6 5 - 15 MMOL/L 01/18/2025 9:57 AM T [facility] BUN CREATININE RATIO 15.9 6 - 26 01/18/2025 9:57 AM T [facility] GFR ESTIMATE 18(L) >90 ML/MIN/1.7 3 M2 01/18/2025 9:57 AM T [facility] Comment: NOTE: eGFR [...] Harshil Daniels MD LABORATORY Final R esult [facility] [address] [place] [address], [place] [phone] * (ABNORMAL) CBC W/DIFF AUTOMATED (01/18/2025 9:19 AM CDT) Only the most recent of7 resultswithin the time period is included. WBC 4.46 4.4 - 11.0 x10'3/uL 01/18/2025 10:52 AM CDT [facility] RBC 2.63(L) 4.50 - 5.10 x10'6/uL 01/18/2025 10:52 AM CDT [facility] HGB 9.0(L) 12.3 - 15.3 G/DL 01/18/2025 10:52 AM CDT [facility] HCT 27.9(L) 35.9 - 44.6 % 01/18/2025 10:52 AM CDT [facility] MCV 106.1(H) 80.0 - 96.0 FL 01/18/2025 10:52 AM CDT [facility] MCH 34.2(H) 25.3 - 30.9 PG 01/18/2025 10:52 AM CDT [facility] MCHC 32.3 31.0 - 34.1 G/DL 01/18/2025 10:52 AM CDT [facility] RDW 17.9(H) 12.4 - 15.1 % 01/18/2025 10:52 AM CDT [facility] PLT 291 151 - 353 x10'3/uL 01/18/2025 10:52 AM T [facility] MPV 9.6 9.6 - 12.0 FL 01/18/2025 10:52 AM CDT [facility] RBC MORPHOLOGY NORMAL 01/18/2025 10:52 AM T [facility] PLT MORPH. NORMAL 01/18/2025 10:52 AM T [facility] WBC MORPHOLOGY NORMAL 01/18/2025 10:52 AM T [facility] LYMPHOCYTES % 30.5 15.8 - 45.0 % 01/18/2025 10:52 AM T [facility] NEUTROPHILS % 59.5 42.1 - 71.9 % 01/18/2025 10:52 AM T [facility] MONOCYTES % 6.1 5.7 - 12.5 % 01/18/2025 10:52 AM T [facility] EOSINOPHILS 3.1 0.0 - 5.6 % 01/18/2025 10:52 AM [facility] BASOPHILS 0.4 0.0 - 1.3 % 01/18/2025 10:52 AM T [facility] ABS. NEUTROPHILS 2.65 1.40 - 6.00 x10'3/uL 01/18/2025 10:52 AM T [facility] IMMATURE GRANS % 0.4 0.0 - 0.5 % 01/18/2025 10:52 AM [facility] ABS. LYMPHOCYTES 1.36 0.80 - 4.70 x10'3/uL 01/18/2025 10:52 AM T [facility] 01/18/2025 9:19 AM CDT us Harshli Daniels MD LABORATORY Final R esult [facility] [address] [place] [address], [place] [phone] * URINE BACTERIA CULTURE (01/15/2025 10:08 PM CDT) SPEC DESCRIPTION URINE CLEAN CATCH 01/16/2025 1:50 PM CDT [facility] SPECIAL REQUESTS NO SPECIAL REQUEST 01/16/2025 1:50 PM CDT [facility] CULTURE RESULT POLYMICROBIAL GROWTH CONSISTENT WITH NORMAL GENITAL LEWIS. SUSCEPTIBILITIES NOT ROUTINELY PERFORMED. 01/19/2025 7:43 AM CDT [facility] URINE SPECIMEN OBTAINED BY CLEAN CATCH PROCEDURE / Unknown 01/15/2025 10:08 PM CDT 01/16/2025 1:50 PM CDT us Kole Guzman MD MICROBIOLOGY - GENERAL ORDERAB LES Final Result Performing Organization Address [facility] Co de Phone Number [facility] [address] [place] [address], [place] [phone] [facility] [address] [place] [address], [place] [phone] * (ABNORMAL) URINALYSIS, AUTO, COMPLETE (01/15/2025 10:08 PM CDT) Only the most recent of2 resultswithin the time period is included. COLOR (U) YELLOW 01/15/2025 10:44 PM CDT [facility] TRANSPARENCY CLEAR 01/15/2025 10:44 PM CDT [facility] SPECIFIC GRAVITY (U) 1.025 1.000 - 1.030 01/15/2025 10:44 PM CDT [facility] U PH 5.5 5.0 - 9.0 01/15/2025 10:44 PM CDT [facility] LEUKOCYTES (U) NEGATIVE NEGATIVE 01/15/2025 10:44 PM CDT [facility] NITRITES NEGATIVE NEGATIVE 01/15/2025 10:44 PM CDT [facility] PROTEIN RANDOM (U) 2+(A) NEGATIVE 01/15/2025 10:44 PM CDT [facility] GLUCOSE (U) 3+(A) NEGATIVE 01/15/2025 10:44 PM CDT [facility] KETONES MG/DL (U) NEGATIVE NEGATIVE 01/15/2025 10:44 PM CDT [facility] BILIRUBIN (U) NEGATIVE NEGATIVE 01/15/2025 10:44 PM CDT [facility] BLOOD (U) NEGATIVE NEGATIVE 01/15/2025 10:44 PM CDT [facility] WBC/HPF 0-5 0 - 5 /HPF 01/15/2025 10:44 PM CDT [facility] RBC/HPF NONE SEEN 0 - 5 /HPF 01/15/2025 10:44 PM CDT [facility] EPI/HPF FEW /HPF 01/15/2025 10:44 PM CDT [facility] URINE SPECIMEN OBTAINED BY CLEAN CATCH PROCEDURE / Unknown 01/15/2025 10:08 PM CDT us Owen Prajapati MD URINE ORDERABLES Final Res ult [facility] [address] [place] [address], [place] [phone] * (ABNORMAL) PARTIAL THROMBOPLASTIN TIME,PTT (01/15/2025 10:08 PM CDT) Only the most recent of2 resultswithin the time period is included. PTT 130.8(HH) 27.0 - 36.8 SEC 01/16/2025 12:05 AM CDT [facility] Comment: CALLED RESULT CALLED TO EDUAR BEASLEY READ BACK AND VERIFIED 01/15/2025 10:0 8 PM CDT us Owen Prajapati MD LABORATORY Final Resu lt [facility] [address] [place] [address], * (ABNORMAL) COMPREHENSIVE METABOLIC PANEL (01/15/2025 10:08 PM CDT) Only the most recent of3 resultswithin the time period is included. GLUCOSE 249(H) 70 - 99 MG/DL 01/15/2025 10:38 PM CDT [facility] BUN 40(H) 7 - 18 MG/DL 01/15/2025 10:38 PM CDT [facility] CREATININE S/P/B 3.06(H) 0.55 - 1.02 MG/DL 01/15/2025 10:38 PM CDT [facility] SODIUM S/P/B 140 136 - 145 MMOL/L 01/15/2025 10:38 PM CDT [facility] POTASSIUM S/P/B 5.1 3.5 - 5.1 MMOL/L 01/15/2025 10:38 PM CDT [facility] CHLORIDE S/P/B 107 100 - 108 MMOL/L 01/15/2025 10:38 PM CDT [facility] CO2 21.6 21 - 32 MMOL/L 01/15/2025 10:38 PM CDT [facility] CALCIUM S/P/B 8.2(L) 8.5 - 10.1 MG/DL 01/15/2025 10:38 PM [facility] BILIRUBIN TOTAL S/P/B 0.4 0.2 - 1.2 MG/DL 01/15/2025 10:38 PM [facility] TOTAL PROTEIN S/P/B 6.2(L) 6.4 - 8.2 G/DL 01/15/2025 10:38 PM [facility] ALBUMIN S/P/B 2.8(L) 3.4 - 5.0 G/DL 01/15/2025 10:38 PM [facility] AST 35 15 - 37 U/L 01/15/2025 10:38 PM [facility] ALT 26 14 - 55 U/L 01/15/2025 10:38 PM [facility] ALKALINE PHOSPHATASE S/P/B 92 50 - 136 U/L 01/15/2025 10:38 PM [facility] ANION GAP 11.4 5 - 15 MMOL/L 01/15/2025 10:38 PM [facility] BUN CREATININE RATIO 13.1 6 - 26 01/15/2025 10:38 PM [facility] A/G RATIO 0.8(L) 1.0 - 2.0 RATIO 01/15/2025 10:38 PM [facility] GFR ESTIMATE 15(L) >90 ML/MIN/1.7 3 M2 01/15/2025 10:38 PM [facility] Comment: NOTE: eGFR is not calculated for patients <18 years of age. This is an estimated GFR calculation using the new CKD EPI creatinine equation without race and so does not require a correction factor for race. This estimated GFR should not be used for calculating drug doses. 01/15/2025 10:0 8 PM CDT us Owen Prajapati MD LABORATORY Final Resu lt [facility] [address] [place] [address], [place] [phone] * MAGNESIUM (01/15/2025 10:08 PM CDT) Only the most recent of2 resultswithin the time period is included. MAGNESIUM 2.1 1.8 - 2.4 MG/DL 01/15/2025 10:38 PM CDT [facility] 01/15/2025 10:0 8 PM CDT us Owen Prajapati MD LABORATORY Final Resu lt Performing Organization Address City/[facility] Co de Phone Number [facility] [address] [place] [address], [place] [phone] * XR CHEST PA+LAT (11/30/2024 7:31 PM AIRPORT SECURITY SCREENER) Anatomical Region Laterality Modality Chest Radiographic Mayi ging 11/30/2024 7:33 PM AIRPORT SECURITY SCREENER Impressions 11/30/2024 7:36 PM AIRPORT SECURITY SCREENER IMPRESSION: 1. No radiographic evidence of active disease in the chest. 2. When comparing chest x-ray to CT there appears to be interval resolution of previously seen bilateral been noninfectious process. Referred By: Interpreted By: Marjan Mclaughlin DO, 11/30/2024 7:33 PM Narrative 11/30/2024 7:36 PM AIRPORT SECURITY SCREENER [facility] [address] [address] [place] [address] CLINICAL INDICATION: 79-year-old female. Cough, dyspnea. 11/30/2024 [...] Procedure Note Marjan Mclaughlin MD - 11/30/2024 [facility] [address] [place] [phone] CLINICAL INDICATION: 79-year-old female. Cough, dyspnea. 11/30/2024 [...] (ABNORMAL) PRO-BRAIN NATRIURETIC PEPTIDE (11/30/2024 6:46 PM AIRPORT SECURITY SCREENER) Only the most recent of2 resultswithin the time period is included. PRO-B TYPE NATRIURETIC PEPTIDE 2,703(H) <450 PG/ML 11/30/2024 7:27 PM AIRPORT SECURITY SCREENER [facility] Comment: CUT POINTS ESTABLISHED BY [...] 72% FOR ACUTE CHF. 11/30/2024 6:46 PM AIRPORT SECURITY SCREENER Shira Lira MD LABORATORY Final Resu lt Performing Organization Address City/[facility]/ZIP Co de Phone Number [facility] [address] [place] [address], [place] [phone] * CORONAVIRUS (COVID-19) MOLECULAR (11/30/2024 5:35 PM AIRPORT SECURITY SCREENER) Only the most recent of2 resultswithin the time period is included. CORONAVIRUS SARS COV 2 RNA NEGATIVE NEGATIVE 11/30/2024 6:11 PM AIRPORT SECURITY SCREENER [facility] Comment: NEGATIVE RESULTS DO NOT [...] SARS-COV-2. SPECIMEN TYPE NASAL 11/30/2024 5:38 PM AIRPORT SECURITY SCREENER [facility] NASOPHARYNGEAL SWAB / Unknown 11/30/2024 5:35 PM AIRPORT SECURITY SCREENER Shira Lira MD MICROBIOLOGY - GENERAL ORD ERABLES Final Result [facility] [address] [place] [address], * INFLUENZA A & B (11/30/2024 5:35 PM AIRPORT SECURITY SCREENER) Only the most recent of2 resultswithin the time period is included. SPECIMEN TYPE NASOPHARYNX 11/30/2024 5:44 PM AIRPORT SECURITY SCREENER [facility] INFLUENZA A NEGATIVE NEGATIVE 11/30/2024 6:01 PM AIRPORT SECURITY SCREENER [facility] INFLUENZA B NEGATIVE NEGATIVE 11/30/2024 6:01 PM AIRPORT SECURITY SCREENER [facility] NASOPHARYNGEAL SWAB / Unknown 11/30/2024 5:35 PM AIRPORT SECURITY SCREENER Shira Lira MD MICROBIOLOGY - GENERAL ORD ERABLES Final Result [facility] [address] [place] [address], * PROCALCITONIN (PCT) (11/19/2024 5:57 AM AIRPORT SECURITY SCREENER) Procalcitonin 0.05 0.00 - 0.25 NG/ML 11/19/2024 10:09 AM AIRPORT SECURITY SCREENER [facility] Comment: PROCALCITONIN INTERPRETATION [...] OF PCT IS RECOMMENDED. 11/19/2024 5:57 AM AIRPORT SECURITY SCREENER Swapnil Gilliland MD LABORATORY Final Result Performing Organization Address [facility] Co de Phone Number [facility] [address] [place] [address], * BLOOD CULTURE #1 (11/19/2024 5:56 AM AIRPORT SECURITY SCREENER) SPEC DESCRIPTION BLOOD-PEDIA TRIC VOLUME 11/18/2024 5:50 PM AIRPORT SECURITY SCREENER [facility] SPECIAL REQUESTS NO SPECIAL REQUEST 11/18/2024 5:50 PM AIRPORT SECURITY SCREENER [facility] CULTURE RESULT NO GROWTH 5 DAYS 11/24/2024 7:30 AM AIRPORT SECURITY SCREENER [facility] BLOOD SPECIMEN OBTAINED FOR BLOOD CULTURE / Unknown 11/19/2024 5:56 AM AIRPORT SECURITY SCREENER 11/19/2024 5:57 AM AIRPORT SECURITY SCREENER German Ruiz MD MICROBIOLOGY - GENERAL ORDERABL ES Final Result Performing Organization Address [facility] Co de Phone Number [facility] [address] [place] [address], [place] [phone] [facility] [address] [place] [address], [place] [phone] * LACTIC ACID W REFLEX (SEPSIS) (11/18/2024 3:38 PM AIRPORT SECURITY SCREENER) LACTIC ACID VENOUS 0.6 0.4 - 2.0 MMOL/L 11/18/2024 4:05 PM AIRPORT SECURITY SCREENER [facility] 11/18/2024 3:38 PM AIRPORT SECURITY SCREENER German Ruiz MD LABORATORY Final Result [facility] [address] [place] [phone], * CT CHEST WO CON (11/18/2024 3:18 PM AIRPORT SECURITY SCREENER) Anatomical Region Laterality Modality Chest Computed Tomogra phy 11/18/2024 4:00 PM AIRPORT SECURITY SCREENER Impressions 11/18/2024 4:05 PM AIRPORT SECURITY SCREENER Impression: 1. There are mild patchy groundglass opacities in the right middle lobe, and similar-appearing opacities in the central aspect of the left upper lobe, likely infectious in etiology. 2. Additional chronic findings as described. Referred By: Interpreted By: Lawson Ruth MD, 11/18/2024 4:00 PM Narrative 11/18/2024 4:05 PM AIRPORT SECURITY SCREENER [facility] [address] [place] [address] Examination: CT CHEST WO CON Exam time: [...] Procedure Note Lawson Ruth MD - 11/18/2024 [facility] [address] [place] [address] Examination: CT CHEST WO CON Exam time: [...] FACIAL BONES WO CON (11/18/2024 3:18 PM AIRPORT SECURITY SCREENER) Anatomical Region Laterality Modality Facial Computed Tomogra phy 11/18/2024 4:05 PM AIRPORT SECURITY SCREENER Impressions 11/18/2024 4:08 PM AIRPORT SECURITY SCREENER IMPRESSION: 1. There is no definite facial bone fracture noted given the limits of motion artifact. 2. There is anterior subluxation of the right and left mandible relative to the temporal mandibular joints of uncertain clinical significance. Referred By: Interpreted By: Lawson Ruth MD, 11/18/2024 4:05 PM Narrative 11/18/2024 4:08 PM AIRPORT SECURITY SCREENER [facility] [address] [place] [address] Examination: CT FACIAL BONES WO CON Exam [...] Procedure Note Lawson Ruth MD - 11/18/2024 [facility] [address] [place] [id number] Examination: CT FACIAL BONES WO CON Exam [...] (ABNORMAL) ARTERIAL BLOOD GAS (11/18/2024 2:52 PM AIRPORT SECURITY SCREENER) PH ARTERIAL 7.40 7.35 - 7.45 11/18/2024 3:06 PM [facility] PCO2 39.0 35 - 45 [facility] 11/18/2024 3:06 PM [facility] PO2 80.0(L) 83 - 108 [facility] 11/18/2024 3:06 PM [facility] TOTAL CO2 ARTERIAL 25.4(H) 19.0 - 24.0 MMOL/L 11/18/2024 3:06 PM [facility] BASE DEFICIT 0.5 0 - 2 MMOL/L 11/18/2024 3:06 PM [facility] O2 SATURATION 96 94.0 - 98.0 % 11/18/2024 3:06 PM [facility] BICARB ARTERIAL 24.2 21.0 - 28.0 MMOL/L 11/18/2024 3:06 PM [facility] GENEVA TEST POSITIVE 11/18/2024 3:04 PM AIRPORT SECURITY SCREENER [facility] O2 ADMIN ARTERIAL ROOM AIR 11/18/2024 3:04 PM [facility] DRAW SITE ARTERIAL DRAWN FROM LEFT WRIST 11/18/2024 3:04 PM [facility] 11/18/2024 2:52 PM AIRPORT SECURITY SCREENER German Ruiz MD LABORATORY Final Result [facility] [address] [place] [address], * ECG 12 lead (11/18/2024 2:37 PM AIRPORT SECURITY SCREENER) 11/18/2024 2:37 PM AIRPORT SECURITY SCREENER Narrative [facility] RAD - 11/19/2024 10:44 AM AIRPORT SECURITY SCREENER [facility] Test Date: 2024-11-18 Pat Name: HEATH SALMERON Department: 85 Room: [facility] 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1945 Requested By: GERMAN RUIZ Order Number: [id number] Reading MD: Constantino Carpenter Measurements Intervals [place] Rate: 60 P: 246 MT: 130 QRS: -52 QRSD: 157 T: 73 QT: 482 QTc: 483 Interpretive Statements Sinus Rhythm First Degree AV Block LEFT AXIS DEVIATION [QRS AXIS < -30] LEFT BUNDLE BRANCH BLOCK [120+ ms QRS DURATION, 80+ ms Q/S IN V1/V2, 85+ ms R IN I/aVL/V5/V6] No previous ECG available for comparison ORT SECURITY SCREENER Procedure Note Constantino Carpenter MD - 11/19/2024 [facility] Test Date: 2024-11-18 Pat Name: HEATH SALMERON Department: 85 Room: 104 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1945 Requested By: GERMAN RUIZ Order Number: [id number] Reading MD: Constantino Carpenter Measurements Intervals Winters Rate: 60 P: 246 MT: 130 QRS: -52 QRSD: 157 T: 73 QT: 482 QTc: 483 Interpretive Statements Sinus Rhythm First Degree AV Block LEFT AXIS DEVIATION [QRS AXIS < -30] LEFT BUNDLE BRANCH BLOCK [120+ ms QRS DURATION, 80+ ms Q/S IN V1/V2, 85+ms R IN I/aVL/V5/V6] No previous ECG available for comparison ORT SECURITY SCREENER us German Ruiz MD ECG ORDERABLES Final Result Performing Organization Address City/[facility]/ZIP Co de Phone Number [facility]) RAD * RESP SYNCYTIAL VIRUS (11/18/2024 2:08 PM AIRPORT SECURITY SCREENER) SPECIMEN TYPE NASOPHARYNGEAL SWAB 11/18/2024 2:08 PM AIRPORT SECURITY SCREENER [facility] RAPID RSV NEGATIVE NEGATIVE 11/18/2024 2:48 PM AIRPORT SECURITY SCREENER [facility] NASOPHARYNGEAL SWAB / Unknown 11/18/2024 2:08 PM AIRPORT SECURITY SCREENER us German Ruiz MD MICROBIOLOGY - GENERAL ORDERABL ES Final Result Performing Organization Address City/[facility]/ZIP Co de Phone Number [facility] [address] [place] [address], [place] [phone] * TSH W/REFLEX (11/18/2024 2: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) TSH 1.795 0.358 - 3.74 uIU/ML 11/18/2024 2:55 PM AIRPORT SECURITY SCREENER [facility] Comment: HIGH DOSES OF BIOTIN MAY INTERFERE WITH THIS TEST RESULT. CORRELATION TO CLINICAL HISTORY AND PRESENTATION RECOMMENDED. FREE T4 NOT INDICATED 11/18/2024 2: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 us German Ruiz MD LABORATORY Final Result Performing Organization Address [facility]/ZIP Co de Phone Number [facility] [address] [place] [address], [place] [phone] * TROPONIN, QUANT (11/18/2024 2: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) TROPONIN I HIGH SENSITIVITY 26 0 - 50 ng/L 11/18/2024 2:49 PM AIRPORT SECURITY SCREENER [facility] Comment: HIGH DOSES OF BIOTIN, TROPONIN-SPECIFIC AUTOANTIBODIES, AND ANTIBODY THERAPY CONTAINING HAMA MAY INTERFERE WITH THIS TEST RESULT. CORRELATION TO CLINICAL HISTORY AND PRESENTATION RECOMMENDED. 11/18/2024 2: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 us German Ruiz MD LABORATORY Final Result Performing Organization Address [facility] Co de Phone Number [facility] [address] [place] [address], [place] [phone] * LIPASE (11/18/2024 2: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) LIPASE 41 16 - 77 UNITS/L 11/18/2024 2:55 PM AIRPORT SECURITY SCREENER [facility] 11/18/2024 2: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 us German Ruiz MD LABORATORY Final Result Performing Organization Address City/[facility]/ZIP Co de Phone Number [facility] [address] [place] [address], [place] [phone] * CK (CPK) (11/18/2024 2: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) CPK 71 26 - 192 U/L 11/18/2024 2:55 PM AIRPORT SECURITY SCREENER [facility] 11/18/2024 2: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 us German Ruiz MD LABORATORY Final Result [facility] [address] [place] [address], [place] [phone] from Last [address] [place] [address] Advance Directives * Full Code (Latest Code Status on File) Date Activated Date Inactivated Comments 01/16/2025 12:30 PM 01/18/2025 2:41 PM * Full Code Date Activated Date Inactivated Comments 11/18/2024 6:41 PM 11/21/2024 3:34 PM Care Teams Thermal Engineer Relationship Specialty Start Date End Date Oh Goode MD [address] [place] [address] PCP - General FAMILY PRACTICE 01/26/20
--- OUTSIDE RECORDS SUMMARY | 2025-02-08 16:31 | XMS_ITS | Referral Summary ---
Author Organization [facility] [address] [place] [address] [address] [facility] [address] [place] [address] Care Team Providers Care Optical Goods Worker Name Role Phone Oh Goode MD Primary Care Provider [phone] Encounters Date Type Department Care Team Description 02/06/2025 Anticoagulation Visit [facility] Cardiology [address] [place] [address] [address] [place] [address] Salina Loja RN 02/06/2025 Telephone [facility] [address] [place] [address] [address] [place] [address] Swapnil Wilson MD 02/06/2025 8:15 AM CDT Office Visit [facility] Medical Group Cardiology at [address] [place] [address] Swapnil Wilson MD group home current use of anticoagulant therapy; Orthostatic hypotension; Chronic atrial fibrillation (HCC); Dyspnea, unspecified type from Last 3 Months Allergies Active Allergy Reactions Criticality Noted Date Comments Ceftriaxone Anaphylaxis High 01/16/2025 Hypotension, airway constriction, itching Morphine Nitroglycerin Penicillins Medications furosemide (LASIX) 40 mg tablet take 1 tablet by oral route every day 0 0 3 Active Additional Information Patient taking differently: 20 mg oral Daily, Reported on 02/06/2025 gabapentin (NEURONTIN) 300 mg capsule take 1 Capsule by oral route 3 times every day 0 0 4 Active albuterol HFA (PROVENTIL HFA) 90 mcg/actuation inhaler inhale 2 puff by inhalation route every 4 - 6 hours as needed 0 Inhaler 0 6 Active SITagliptin (JANUVIA) 50 mg tablet take 1 Tablet by oral route every day 0 0 6 Active Additional Information Patient taking differently: 25 mg oral Daily, Reported on 02/06/2025 atorvastatin (LIPITOR) 80 mg tablet take 1 tablet by oral route every day 0 0 6 Active fenofibrate (TRIGLIDE) 160 mg tablet take 1 tablet by oral route every day 0 0 6 Active warfarin (COUMADIN) 2 mg tablet Take 1 tablet (2 mg total) by mouth daily Active cefdinir (OMNICEF) 300 mg capsule Take 1 capsule (300 mg total) by mouth 2 (two) times a day Active predniSONE (DELTASONE) 10 mg tablet Take 1 tablet (10 mg) by mouth daily Active HYDROcodone-ac etaminophen (NORCO) 10-325 mg per tabletIndicati ons:Pain Take 1 tablet by mouth every 6 (six) hours as needed for pain Active aspirin 81 mg enteric coated tablet Take 1 tablet (81 mg total) by mouth daily Active melatonin 5 mg tablet Take 1 tablet (5 mg total) by mouth daily Active ezetimibe (ZETIA) 10 mg tablet Take 1 tablet (10 mg total) by mouth daily Active amiodarone (PACERONE) 200 mg tablet Take 1 tablet (200 mg total) by mouth daily Active amLODIPine (NORVASC) 5 mg tablet Take 1 tablet (5 mg total) by mouth daily Active tamsulosin (FLOMAX) 0.4 mg extended release capsule 1 capsule (0.4 mg total) Active apixaban (ELIQUIS) 5 mg tablet Take 1 tablet (5 mg total) by mouth 2 (two) times a day Active allopurinoL (ZYLOPRIM) 100 mg tablet Take 1 tablet (100 mg total) by mouth daily Active meclizine (ANTIVERT) 25 mg tablet Take 1 tablet (25 mg total) by mouth 3 (three) times a day as needed for dizziness Active acetaminophen 500 mg capsule Take by mouth every 6 (six) hours as needed for mild pain (pain scale 1-4) Active senna (SENOKOT) 8.6 mg tablet Take 1 tablet by mouth daily Active ergocalciferol (VITAMIN D) 50,000 unit capsule Take 1 capsule (50,000 Units total) by mouth once a week Active docusate sodium (DOK) 100 mg tabletIndicati ons:constipati on Take 1 tablet (100 mg total) by mouth 2 (two) times a day Active carvediloL (COREG) 3.125 mg tablet Take 1 tablet (3.125 mg total) by mouth 2 (two) times a day with meals Active metFORMIN (GLUCOPHAGE) 1,000 mg tablet take 1 tablet by oral route 2 times every day with morning and evening meals 0 0 3 02/07/20 25 Discontin ued(Thera py completed ) potassium chloride ER (KLOR-CON M20) 20 mEq CR tablet take 1 tablet by oral route every day with food 0 0 3 02/07/20 25 Discontin ued(Thera py completed ) budesonide-for moterol (SYMBICORT) 160-4.5 mcg/actuation inhaler inhale 2 puff by inhalation route 2 times every day in the morning and evening 0 Inhaler 0 4 02/07/20 25 Discontin ued(Thera py completed ) lisinopril (PRINIVIL,ZEST RIL) 40 mg tablet take 1 tablet by oral route every day 60 5 3 02/07/20 25 Discontin ued(Thera py completed ) zolpidem (AMBIEN) 5 mg tablet take 1 Tablet by oral route every day at bedtime 0 0 4 02/07/20 25 Discontin ued(Thera py completed ) omeprazole (PriLOSEC) 20 mg capsule take 1 capsule by oral route every day before a meal 0 0 6 02/07/20 25 Discontin ued(Thera py completed ) metoclopramide (REGLAN) 10 mg tablet take 1 tablet by oral route every day 0 0 6 02/07/20 25 Discontin ued(Thera py completed ) ondansetron (ZOFRAN, HYDROCHLORIDE, ) 8 mg tablet take 1 tablet by oral route every 8 hours for 2 days 0 0 6 02/07/20 25 Discontin ued(Thera py completed ) carvediloL (COREG) 12.5 mg tablet Take 1 tablet (12.5 mg total) by mouth 2 (two) times a day with meals 02/07/20 25 Discontin ued(Alter akilah therapy) Active Problems Problem Noted Date Diagnosed Date Chronic atrial fibrillation 02/06/2025 Primary cardiomyopathy 08/30/2014 Overview (02/10/2017): Primary cardiomyopathy Social History Tobacco Use Types Packs/Day Years Used Date Smoking Tobacco: Never Smokeless Tobacco: Never Tobacco Cessation:Counseling Given: Not Answered Alcohol Use Standard Drinks/Week Comments Yes 0 (1 standard drink = 0.6 oz pur e alcohol) Comments Unknown Sex and Gender Information Value Date Recorded Sex Assigned at Not on file 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 Gender Identity Not on file Sexual Orientation Not on file Last Filed Vital Signs Vital Sign Reading Time Taken Comments Blood Pressure 132/82 02/06/2025 8:25 AM CDT Pulse 96 02/06/2025 8:25 AM CDT Temperature 36.7 C (98 F) 07/26/2015 8:17 AM CDT Respiratory Rate - - Oxygen Saturation 93% 02/06/2025 8:25 AM CDT Inhaled Oxygen Concentration - - Weight 89.8 kg (198 lb) 02/06/2025 8:25 AM CDT Height 167.6 cm (5' 6 ) 02/06/2025 8:25 AM CDT Body Mass Index 31.96 02/06/2025 8:25 AM CDT Plan of Treatment Not on file Procedures Procedure Name Priority Date/Time Associated Diagnosis Comments ECG 12-LEAD Routine 02/06/2025 9:13 AM CDT Chronic atrial fibrillation (HCC) from Last 3 Months Results * ECG 12 lead (02/06/2025 9:13 AM CDT) Swapnil Wilson MD ECG ORDERABLES Final Re sult from Last 3 Months Insurance [facility] MEDICARE ADVANTAGE [facility] MEDICARE Address: [address] [address] [place] [address] [facility] MEDICARE ADVANTAGE [facility]IC[facility] Address: [address] [address] [place] [address] Care Teams Optical Goods Worker Relationship Specialty Start Date End Date Oh Goode MD PCP - General 05/28/13
--- OUTSIDE RECORDS SUMMARY | 2025-02-08 16:31 | XMS_ITS | Clinical Summary ---
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 Medical Group Cardiology at [address] [place] [address] Swapnil Wilson MD [facility] current use of anticoagulant therapy; Orthostatic hypotension; Chronic atrial fibrillation (HCC); Dyspnea, unspecified type 02/06/[address] [facility] Medical [facility] Cardiology [address] [facility] [address] [place] [address] Salina Loja RN 02/06/[address] [facility] Cardiology [address] [place] [address] Swapnil Wilson MD from Last 3 Months Surgical History Surgery Date Site/Laterality Comments OTHER SURGICAL HISTORY breast lump: HYSTERECTOMY 1981 Hysterectomy OTHER SURGICAL HISTORY Sleep Apnea: Medical History Medical History Date Comments Hx Other Medical Diabetes Type I I Depression Depression Hypertension Hypertension Hx Other Medical 1979 breast lump Hx Other Medical DJD Sleep apnea 2013 Sleep Apnea Osteoarthritis Osteoarthritis Atrial fibrillation (HCC) Hyperlipidemia Family History Medical History Relation Name Comments Prostate cancer Father 2 Prostate Can cer; Cause of : Prostate Cancer Esophageal cancer Mother 2 Esophageal Cancer; Cause of : Esophageal Cancer Relation Name Status Comments Father 1 (Age 70) Father 2 Mother 1 Mother 2 Social History Tobacco Use Types Packs/Day Years Used Date Smoking Tobacco: Never Smokeless Tobacco: Never Tobacco Cessation:Counseling Given: Not Answered Alcohol Use Standard Drinks/Week Comments Yes 0 (1 standard drink = 0.6 oz pur e alcohol) Comments Unknown Sex and Gender Information Value Date Recorded Sex Assigned at Not on file 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 Gender Identity Not on file Sexual Orientation Not on file Obstetrics History Last Filed Vital Signs Vital Sign Reading [...] 02/06/2025 8:25 AM CDT Plan of Treatment Health Maintenance Due Date Last Done Comments Depression Screening 1945 Fall Risk Assessment 1945 Hepatitis C Screening 1945 Osteoporosis Screening-Bone Density Scan 1945 Hepatitis B Screening 1964 Zoster Vaccine (1 of 2) 1996 Well Visit 65+ 2011 Covid-19 Vaccine (2023-12 5 season) 2025 08/31/2024, 04/23/2022, 08/25/2021, Additional history exists DTaP/Tdap/Td Vaccine (2 - Td or Tdap) 10/05/2026 10/05/2016 Influenza Vaccine Completed 08/31/2024, , 08/21/2022, Additional history exists Pneumococcal vaccine 65+ Completed 024, 10/02/2019, 09/07/2019 Procedures Procedure Name Priority Date/Time Associated Diagnosis Comments ECG 12-LEAD Routine 02/06/2025 9:13 AM CDT Chronic atrial fibrillation (HCC) from Last 3 Months Results * ECG 12 lead (02/06/2025 9:13 AM CDT) us Swapnil Wilson MD ECG ORDERABLES Final Re sult from Last 3 Months Insurance [facility] MEDIC[facility] Address: [facility] [address] [place] [address] [facility] MEDICARE ADVANTAGE Care Teams Bag Bailer Relationship Specialty Start Date End Date Oh Goode MD PCP - General 05/28/13
--- OUTSIDE RECORDS SUMMARY | 2025-02-08 16:31 | XMS_ITS | Encounter Summary ---
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 Orthostatic hypotension Chronic atrial fibrillation (HCC) Dyspnea, unspecified type Kyree Diaz, SOUND INSTALLATION WORKER [address] [place] [address] Phone: tel: fax: [facility] Cardiology [address] [address] Phone: tel: fax: Referral ID Status Reason Start Date Expiration Date V isits Requested Visits Authorized [id number] Closed Specialty Services Required 01/29/2025 02/28/2026 1 1 Encounter Details Date Type Department Care Team (Latest Contact Info) Description 02/06/2025 8:15 AM CDT Office Visit [facility] Cardiology at [address] [place] [address] Swapnil Wilson MD [address] [facility] [address] [place] [id number] intermediate current use of anticoagulant therapy; Orthostatic hypotension; Chronic atrial fibrillation (HCC); Dyspnea, unspecified type Social History Tobacco Use Types Packs/Day Years Used Date Smoking Tobacco: Never Smokeless Tobacco: Never Tobacco Cessation:Counseling Given: Not Answered Alcohol Use Standard Drinks/Week Comments Yes 0 (1 standard drink = 0.6 oz pur e alcohol) Comments Unknown Sex and Gender Information Value Date Recorded Sex Assigned at Not on file 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 Gender Identity Not on file Sexual Orientation Not on file documented as of this encounter Last Filed Vital Signs Vital Sign Reading Time Taken Comments Blood Pressure 132/82 02/06/2025 8:25 AM CDT Pulse 96 02/06/2025 8:25 AM CDT Temperature - - Respiratory Rate - - Oxygen Saturation 93% 02/06/2025 8:25 AM CDT Inhaled Oxygen Concentration - - Weight 89.8 kg (198 lb) 02/06/2025 8:25 AM CDT Height 167.6 cm (5' 6 ) 02/06/2025 8:25 AM CDT Body Mass Index 31.96 02/06/2025 8:25 AM CDT documented in this encounter Progress Notes * Swapnil Wilson MD - 02/06/2025 8:15 AM CDT [facility] CARDIOLOGY 02/06/2025 CHIEF COMPLAINT Patient with history of nonischemic cardiomyopathy, 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 Presenting to become reestablished for care HPI Sarah Alvarado is a 79 y.o. female with a history of nonischemic cardiomyopathy was originally evaluated by myself in 2012. She was found to have no evidence of coronary disease but a left coronary artery that rises from the right coronary cusp anomalous sleep. 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 She is coming back to become reestablished with our practice. According to the records her current comorbidities include paroxysmal atrial flutter, COPD, diabetes, stage 4 chronic kidney disease.The records I have do not indicate when she had atrial flutter and for treatment of this she was initially placed on amiodarone and Eliquis. Her Eliquis was transitioned to Coumadin because she couldnot afford the NOAC. She says she switching from Dr. Lebron practiced ours because they do not agreewith the manner in which he is managing the INR. She says her current Coumadin dosage is 2 mg Tuesday alternating with 1 mg the remainder of the week. Apparently she was hospitalized at [facility] recently because of a supratherapeutic INR. She sees Dr. Carrillo for her stage 4 chronic kidney disease. ECG in the office shows sinus rhythm with first-degree AV block right bundle branch block and leftward axis MEDICAL HISTORY Past Medical History: Diagnosis Date Atrial fibrillation (HCC) Depression Depression HX OTHER MEDICAL Diabetes Type II HX OTHER MEDICAL 1978 breast lump HX OTHER MEDICAL DJD Hyperlipidemia Hypertension Hypertension Osteoarthritis Osteoarthritis Sleep apnea 2012 Sleep Apnea Past Surgical History: Procedure Laterality Date HYSTERECTOMY 1981 Hysterectomy OTHER SURGICAL HISTORY breast lump: OTHER SURGICAL HISTORY Sleep Apnea: Family History Problem Relation Age of Onset Prostate cancer Father Prostate Cancer; Cause of : Prostate Cancer Esophageal cancer Mother Esophageal Cancer; Cause of : Esophageal Cancer Social History Tobacco Use Smoking status: Never Smokeless tobacco: Never Substance and Sexual Activity Drug use: No Sexual activity: None Alcohol Use: Not At Risk (01/16/2025) Received from [facility] AUDIT-C Frequency of Alcohol Consumption: Monthly or less Average Number of Drinks: 1 or 2 Frequency of Binge Drinking: Never Current Outpatient Medications Medication acetaminophen 500 mg capsule albuterol HFA (PROVENTIL HFA) 90 mcg/actuation inhaler allopurinoL (ZYLOPRIM) 100 mg tablet amiodarone (PACERONE) 200 mg tablet amLODIPine (NORVASC) 5 mg tablet apixaban (ELIQUIS) 5 mg tablet aspirin 81 mg enteric coated tablet atorvastatin (LIPITOR) 80 mg tablet carvediloL (COREG) 3.125 mg tablet cefdinir (OMNICEF) 300 mg capsule docusate sodium (DOK) 100 mg tablet ergocalciferol (VITAMIN D) 50,000 unit capsule ezetimibe (ZETIA) 10 mg tablet fenofibrate (TRIGLIDE) 160 mg tablet furosemide (LASIX) 40 mg tablet gabapentin (NEURONTIN) 300 mg capsule HYDROcodone-acetaminophen (NORCO) 10-325 mg per tablet meclizine (ANTIVERT) 25 mg tablet melatonin 5 mg tablet predniSONE (DELTASONE) 10 mg tablet senna (SENOKOT) 8.6 mg tablet SITagliptin (JANUVIA) 50 mg tablet tamsulosin (FLOMAX) 0.4 mg extended release capsule warfarin (COUMADIN) 2 mg tablet No current facility-administered medications for this visit. Allergies Allergen Reactions Ceftriaxone Anaphylaxis Hypotension, airway constriction, itching Morphine Nitroglycerin Penicillins REVIEW OF SYSTEMS General ROS: negative for - chills, fatigue, fever, malaise, night sweats, weight gain or weight loss Psychological ROS: negative for - anxiety, depression, memory difficulties or sleep disturbances Ophthalmic ROS: negative for - blurry vision, decreased vision, loss of vision or scotomata ENT ROS: negative for - epistaxis, headaches, hearing change, nasal congestion, nasal discharge, sore throat, vertigo or visual changes Hematological and Lymphatic ROS: negative for - bleeding problems, blood clots, bruising, fatigue or weight loss Endocrine ROS: negative for - hot flashes, palpitations, polydipsia/polyuria or unexpected weight changes Respiratory ROS: negative for - cough, hemoptysis, orthopnea, shortness of breath, tachypnea or wheezing Cardiovascular ROS: negative for - chest pain, dyspnea on exertion, edema, irregular heartbeat, loss of consciousness, murmur, orthopnea, palpitations, paroxysmal nocturnal dyspnea, rapid heart rate or shortness of breath Gastrointestinal ROS: negative for - abdominal pain, appetite loss, blood in stools, constipation, diarrhea, gas/bloating, heartburn, hematemesis, melena or nausea/vomiting Genito-Urinary ROS: negative for - dysuria,or hematuria Musculoskeletal ROS: negative for - joint pain, muscle pain or muscular weakness Dermatological ROS: negative for dry skin, eczema, pruritus and rash LABS AND OTHER DIAGNOSTIC TESTS Lab Results Component Value Date WBC 7.0 07/26/2015 HGB 10.9 (L) 07/26/2015 HCT 33.9 07/26/2015 MCV 89.9 07/26/2015 No lab exists for component: LABALBU Lab Results Component Value Date CHOL 194 07/18/2015 CHOL 172 11/21/2014 Lab Results Component Value Date HDL 47 07/18/2015 HDL 62 11/21/2014 Lab Results Component Value Date LDLCALC 99 07/18/2015 Lab Results Component Value Date TRIG 240 (H) 07/18/2015 TRIG 168 (H) 11/21/2014 Lab Results Component Value Date CHOLHDL 4.1 07/18/2015 PHYSICAL EXAM Vitals BP 132/82 (BP Location: Left arm, Patient Position: Sitting) Pulse 96 Ht 167.6 cm (5' 6 ) Wt 89.8 kg (198 lb) SpO2 93% BMI 31.96 kg/m?? General appearance - alert, frail overweight elderly lady in the wheelchair oriented to person, place, and time and acyanotic, in no respiratory distress Mental status - affect appropriate to mood Eyes - extraocular eye movements intact, sclera anicteric, no pallor Ears - external earsappear normal, hearing grossly normal bilaterally Nose - normal and patent, no erythema or discharge Mouth - mucous membranes moist, pharynx appears normal, dental hygiene good and tongue normal Neck - supple, no significant neck masses, carotids upstroke normal bilaterally, no bruits, no JVD Chest - clear to auscultation, no wheezes, rales or rhonchi, symmetric air entry, no tachypnea, retractions or cyanosis Heart - normal rate, regular rhythm, normal S1, S2, no murmurs, rubs, clicks or gallops, no JVD Abdomen - soft, nontender, nondistended, no masses or organomegaly bowel sounds normal Neurological - alert, oriented, normal speech, no focal findings or movement disorder noted Musculoskeletal - no joint tenderness, deformity or swelling, no muscular tenderness noted Extremities - peripheral pulses normal, no pedal edema, no clubbing or cyanosis Skin - normal coloration and turgor, no rashes, no suspicious skin lesions noted ASSESSMENT History of nonischemic cardiomyopathy with anomalous left coronary artery. Stable on medical therapy with no recent CHF decompensations and according to records recent LV function has been favorable Episode of atrial flutter sometime in the last 11 years currently in sinus rhythm on amiodarone andanticoagulated with warfarin since she could not afford NOAC Dissatisfaction with the manner in which her previous physician was managing her anticoagulation PLAN/RECOMMENDATIONS No change in medication Follow-up in 6 months Will alert my office staff as to the need to take over her Coumadin prescription and her INR monitoring Swapnil Wilson MD documented in this encounter Miscellaneous Notes * Addendum Note - Adeline العراقي MA - 02/06/2025 8:15 AM CDTAddended by: ADELINE العراقي on: 02/07/2025 09:14 AM Modules accepted: Orders documented in this encounter Plan of Treatment Not on file documented as of this encounter Procedures Procedure Name Priority Date/Time Associated Diagnosis Comments ECG 12-LEAD Routine 02/06/2025 9:13 AM CDT Chronic atrial fibrillation (HCC) documented in this encounter Results * ECG 12 lead (02/06/2025 9:13 AM CDT) us Swapnil Wilson MD ECG ORDERABLES Final Re sult documented in this encounter Visit Diagnoses Diagnosis intermediate current use of anticoagulant therapy Orthostatic hypotension Chronic atrial fibrillation (HCC) Atrial fibrillation Dyspnea, unspecified type documented in this encounter Discontinued Medications Medication Sig Discontinue Reason Start Date End Da te budesonide-formoterol (SYMBICORT) 160-4.5 mcg/actuation inhaler inhale 2 puff by inhalation route 2 times every day in the morning and evening Therapy completed 08/30/2014 02/06/2025 lisinopril (PRINIVIL,ZESTRIL) 40 mg tablet take 1 tablet by oral route every day Therapy completed 05/11/2013 02/06/2025 metFORMIN (GLUCOPHAGE) 1,000 mg tablet take 1 tablet by oral route 2 times every day with morning and evening meals Therapy completed 05/11/2013 02/06/2025 metoclopramide (REGLAN) 10 mg tablet take 1 tablet by oral route every day Therapy completed 11/28/2015 02/06/2025 omeprazole (PriLOSEC) 20 mg capsule take 1 capsule by oral route every day before a meal Therapy completed 11/28/2015 02/06/2025 ondansetron (ZOFRAN, HYDROCHLORIDE,) 8 mg tablet take 1 tablet by oral route every 8 hours for 2 days Therapy completed 11/28/2015 02/06/2025 potassium chloride ER (KLOR-CON M20) 20 mEq CR tablet take 1 tablet by oral route every day with food Therapy completed 05/11/2013 02/06/2025 zolpidem (AMBIEN) 5 mg tablet take 1 Tablet by oral route every day at bedtime Therapy completed 08/30/2014 02/06/2025 carvediloL (COREG) 12.5 mg tablet Take 1 tablet (12.5 mg total) by mouth 2 (two) times a day with meals Alternate therapy 02/06/2025 documented as of this encounter Historical Medications * This list may reflect changes made after this encounter. carvediloL (COREG) 3.125 mg tablet Take 1 tablet (3.125 mg total) by mouth 2 (two) times a day with meals docusate sodium (DOK) 100 mg tabletIndication s:constipation Take 1 tablet (100 mg total) by mouth 2 (two) times a day ergocalciferol (VITAMIN D) 50,000 unit capsule Take 1 capsule (50,000 Units total) by mouth once a week senna (SENOKOT) 8.6 mg tablet Take 1 tablet by mouth daily acetaminophen 500 mg capsule Take by mouth every 6 (six) hours as needed for mild pain (pain scale 1-4) meclizine (ANTIVERT) 25 mg tablet Take 1 tablet (25 mg total) by mouth 3 (three) times a day as needed for dizziness allopurinoL (ZYLOPRIM) 100 mg tablet Take 1 tablet (100 mg total) by mouth daily apixaban (ELIQUIS) 5 mg tablet Take 1 tablet (5 mg total) by mouth 2 (two) times a day tamsulosin (FLOMAX) 0.4 mg extended release capsule 1 capsule (0.4 mg total) amLODIPine (NORVASC) 5 mg tablet Take 1 tablet (5 mg total) by mouth daily amiodarone (PACERONE) 200 mg tablet Take 1 tablet (200 mg total) by mouth daily ezetimibe (ZETIA) 10 mg tablet Take 1 tablet (10 mg total) by mouth daily melatonin 5 mg tablet Take 1 tablet (5 mg total) by mouth daily aspirin 81 mg enteric coated tablet Take 1 tablet (81 mg total) by mouth daily HYDROcodone-acet aminophen (NORCO) 10-325 mg per tabletIndication s:Pain Take 1 tablet by mouth every 6 (six) hours as needed for pain predniSONE (DELTASONE) 10 mg tablet Take 1 tablet (10 mg) by mouth daily cefdinir (OMNICEF) 300 mg capsule Take 1 capsule (300 mg total) by mouth 2 (two) times a day warfarin (COUMADIN) 2 mg tablet Take 1 tablet (2 mg total) by mouth daily carvediloL (COREG) 12.5 mg tablet Take 1 tablet (12.5 mg total) by mouth 2 (two) times a day with meals added in this encounter Orders Outpatient Referral Count Last Ordered Date Fir st Ordered Date AMB REFERRAL TO CARDIOLOGY 1 02/06/2025 documented in this encounter Care Teams Clay Transporter Relationship Specialty Start Date End Date Oh Goode MD PCP - General 05/28/13 documented as of this encounter
[2025-02-08 16:59] LABS: Basophils Percent Auto 0.9 % (0.2-1.2); Eosinophils Absolute Auto 0.2 K/mm3 (0-0.3); Hematocrit 31.2 % (37.0-47.0); Hemoglobin 9.9 g/dL (12.0-15.0); Immature Granulocyte Absolute 0.01 K/mm3 (0.00-0.031); Immature Granulocyte Percent A 0.3 % (0-0.5); Lymphocytes Absolute Auto 0.99 K/mm3 (0.9-3.2); Lymphocytes Percent Auto 28.3 % (18.3-44.2); Mean Corpuscular HGB Conc 31.7 g/dl (32-36); Mean Corpuscular Hemoglobin 34.7 pg (26-34); Mean Corpuscular Volume 109.5 fl (80-100); Mean Platelet Volume 9.2 fl (7.4-10.4); Monocytes Absolute Auto 0.2 K/mm3 (0.1-0.6); Monocytes Percent Auto 6.9 % (2.6-8.5); Neutrophils Percent Auto 57.6 % (45.5-73.1); Platelet Count Result 264 k/mm3 (150-375); Red Blood Count 2.85 M/mm3 (4.2-5.4); Red Cell Distribution Width 17.9 % (11.5-14.5); White Blood Count 3.5 K/mm3 (4.5-10.0)
[2025-02-08 17:10] LABS: INR 1.4
[2025-02-08 17:11] LABS: Partial Thromboplastin Time 27.9 Seconds (22.3-36.8)
[2025-02-08 17:20] LABS: Anisocytosis 1+; Hypochromasia 1+; Platelet Estimate Adequate (Adequate)
[2025-02-08 17:21] LABS: Schistocytes None Seen
== END 2025-02-08 16:29 | disposition home or self-care (01) ==
PROVIDERS: PCP Family Medicine; Visit Provider Family Medicine
DX: Z51.81 Encounter for therapeutic drug level monitoring (principal); G45.9 Transient cerebral ischemic attack, unspecified; I48.91 Unspecified atrial fibrillation; I63.9 Cerebral infarction, unspecified; R79.1 Abnormal coagulation profile; Z79.01 Long term (current) use of anticoagulants
CPT/HCPCS: 36415; 85025; 85610; 85730

== ENCOUNTER 2025-02-22 12:06 | Outpatient (CLI) | payer MEDICARE, SELFPAY ==
--- OUTSIDE RECORDS SUMMARY | 2025-02-22 12:08 | XMS_ITS | Clinical Summary ---
Author Organization [facility] Address [address] [place] [address] Care Team Providers Care Greenhouse Instructor Name Role Phone Oh Goode MD Primary Care Provider [phone] Allergies Active Allergy Reactions Criticality Noted Date [...] vitamin D2, ergocalciferol, (VITAMIN D, ERGOCALCIFEROL, ) 29081 UNITS capsule Take 1 capsule (50,000 Units [...] total) by mouth every morning. 01/01/2024 Active amLODIPine (NORVASC) 5 MG tablet Take 1 tablet (5 mg total) by mouth every morning. 07/17/2024 Active amiodarone (PACERONE) 200 MG tablet Take 1 tablet (200 mg total) by mouth daily. 07/26/2024 Active albuterol sulfate HFA 108 (90 Base) MCG/ACT inhaler Inhale 2 puffs into the lungs 4 (four) times daily. 11/04/2023 Active allopurinol (ZYLOPRIM) 100 MG tablet Take [...] mouth daily for 10 days. 10 tablet 01/18/2025 01/29/20 25 Active Problems Problem Noted Date Diagnosed Date Supratherapeutic INR 01/16/2025 Pneumonia 11/18/2024 Encounters Date Type Department Care Team Description 01/21/2025 Hospital Follow-up Call [facility] Care Management [address] [place] [address] Zhane Salazar LPN Follow Up Call ([facility] 01/15-01/18/25) 01/16/2025 Travel 01/15/2025 9:26 PM CDT - 01/18/2025 12:30 PM CDT Hospital Encounter [facility] Med/Surg [address] [place] [address] Owen Prajapati MD Daniels, Darcy L, Kole Krishna MD Suresh, Harshil Shrestha MD Medical Problem Discharge Disposition: Home or Self Care (Routine Discharge) 01/15/2025 Travel 11/30/2024 5:32 PM MUSICAL THERAPIST - 11/30/2024 8:45 PM [facility] Emergency [facility] Emergency Room [address] [place] [address] Shira Lira MD URI Discharge Disposition: Home or Self Care (Routine Discharge) 11/30/2024 Travel from Last 3 Months Immunizations Immunization Administration Dates Next Due Fluzone High Dose [...] from your doctor or pharmacy? Sometimes 01/16/2025 [facility] Utilities Answer Date Recorded In the past 12 months has [facility] [employer], gas, oil, or water [employer] threatened to shut off services in your [...] often do you attend chur ch or mandaeism services? More than 4 times per year 01/16/2025 Do you belong to any clubs o r organizations such as holiness groups, unions, fraternal or athletic groups, or [...] living in a mcfp (including now)? No 01/16/2025 Comments No Sex and Gender Information Value Date Recorded Sex Assigned at Female 11/20/2024 10:33 AM MUSICAL THERAPIST Legal Sex Female 4:30 PM CDT Gender Identity Female 11/20/2024 10:33 AM MUSICAL THERAPIST Sexual Orientation Not on file Last Filed [...] 2011 Dexa Scan (General) 2011 Pneumococcal Vaccine: 50+ Years (2 of 2 - PPSV23 or PCV20) 10/02/2020 10/02/2019 RSV Immunization or 60+ Years (1 - 1-dose 75+ series) 2021 COVID-19 Vaccine (5 - season) 2024 04/23/2022, 08/25/2021, 02/01/2021, Additional history exists DTaP, Tdap and Td Vaccines (2 - Td or Tdap) 10/05/2026 10/05/2016 PHQ-2 (Physician [place]) Completed 01/16/2025 Meningococcal B Vaccine Aged Out [...] XR CHEST PA+LAT STAT 11/30/2024 7:31 PM MUSICAL THERAPIST PRO-BRAIN NATRIURETIC PEPTIDE STAT 11/30/2024 6:46 PM MUSICAL THERAPIST COMPREHENSIVE METABOLIC PANEL STAT 11/30/2024 6:46 PM MUSICAL THERAPIST CBC W/DIFF AUTOMATED STAT 11/30/2024 6:46 PM MUSICAL THERAPIST INFLUENZA A & B STAT 11/30/2024 5:35 PM MUSICAL THERAPIST CORONAVIRUS (COVID 19) STAT 5:35 PM MUSICAL THERAPIST from Last 3 Months Results * (ABNORMAL) POCT glucose (01/18/2025 11:05 AM CDT) Only the most recent of10 resultswithin the time period is included. GLUCOSE POC 173(H) 70 - 110 mg/dL 01/18/2025 11:[address] [facility] 01/18/2025 11:0 5 AM CDT Harshil Daniels MD POCT ORDERABLES - DEVIC E Final Result Performing Organization Address [facility] Co de Phone Number [facility] [address] [place] [address], [place] [phone] * (ABNORMAL) PROTIME/INR, VENOUS (01/18/2025 9:19 AM CDT) Only the most recent of4 resultswithin the time period is included. PROTIME 19.1(H) 9.1 - 12.4 SEC 01/18/2025 9:[address] [facility] INR 1.7 01/18/2025 9:[address] [facility] Comment: Recommend INR ranges for Oral Anticoagulant Therapy: Mechanical Cardiac Values 2.5-3.5 All others indication 2.0-3.0 01/18/2025 9:19 AM CDT Harshil Daniels MD LABORATORY Final R esult Performing Organization Address [facility]/ZIP Co de Phone Number [facility] [address] [place] [address], [place] [phone] * (ABNORMAL) BASIC METABOLIC PANEL (01/18/2025 9:19 AM CDT) Only the most recent of2 resultswithin the time period is included. [facility] GLUCOSE 186(H) 70 - 99 MG/DL 01/18/2025 9:57 AM [facility] BUN 43(H) 7 - 18 MG/DL 01/18/2025 9:57 AM [facility] CREATININE S/P/B 2.70(H) 0.55 - 1.02 MG/DL 01/18/2025 9:57 AM [facility] SODIUM S/P/B 137 136 - 145 MMOL/L 01/18/2025 9:57 AM [facility] POTASSIUM S/P/B 4.4 3.5 - 5.1 MMOL/L 01/18/2025 9:57 AM [facility] CHLORIDE S/P/B 105 100 - 108 MMOL/L 01/18/2025 9:57 AM [facility] CO2 24.4 21 - 32 MMOL/L 01/18/2025 9:57 AM [facility] CALCIUM S/P/B 8.6 8.5 - 10.1 MG/DL 01/18/2025 9:57 AM [facility] ANION GAP 7.6 5 - 15 MMOL/L 01/18/2025 9:57 AM [facility] BUN CREATININE RATIO 15.9 6 - 26 01/18/2025 9:57 AM [facility] GFR ESTIMATE 18(L) >90 ML/MIN/1.7 3 M2 01/18/2025 9:57 AM [facility] Comment: NOTE: eGFR is not calculated for patients <18 years of age. This is an estimated GFR calculation using the new CKD EPI creatinine equation without race and so does not require a correction factor for race. This estimated GFR should not be used for calculating drug doses. 01/18/2025 9:19 AM CDT us Harshil Daniels MD LABORATORY Final R esult [facility] [address] [place] [address], [place] [phone] * (ABNORMAL) CBC W/DIFF AUTOMATED (01/18/2025 9:19 AM CDT) Only the most recent of4 resultswithin the time period is included. WBC 4.46 4.4 - 11.0 x10'3/uL 01/18/2025 10:[address] [facility] RBC 2.63(L) 4.50 - 5.10 x10'6/uL 01/18/2025 10:[address] [facility] HGB 9.0(L) 12.3 - 15.3 G/DL 01/18/2025 10:[address] [facility] HCT 27.9(L) 35.9 - 44.6 % 01/18/2025 10:[address] [facility] MCV 106.1(H) 80.0 - 96.0 FL 01/18/2025 10:[address] [facility] MCH 34.2(H) 25.3 - 30.9 PG 01/18/2025 10:[address] [facility] MCHC 32.3 31.0 - 34.1 G/DL 01/18/2025 10:[address] [facility] RDW 17.9(H) 12.4 - 15.1 % 01/18/2025 10:[address] [facility] PLT 291 151 - 353 x10'3/uL 01/18/2025 10:[address] [facility] MPV 9.6 9.6 - 12.0 FL 01/18/2025 10:[address] [facility] RBC MORPHOLOGY NORMAL 01/18/2025 10:[address] [facility] PLT MORPH. NORMAL 01/18/2025 10:[address] [facility] WBC MORPHOLOGY NORMAL 01/18/2025 10:[address] [facility] LYMPHOCYTES % 30.5 15.8 - 45.0 % 01/18/2025 10:[address] [facility] NEUTROPHILS % 59.5 42.1 - 71.9 % 01/18/2025 10:[address] [facility] MONOCYTES % 6.1 5.7 - 12.5 % 01/18/2025 10:[address] [facility] EOSINOPHILS 3.1 0.0 - 5.6 % 01/18/2025 10:[address] [facility] BASOPHILS 0.4 0.0 - 1.3 % 01/18/2025 10:[address] [facility] ABS. NEUTROPHILS 2.65 1.40 - 6.00 x10'3/uL 01/18/2025 10:[address] [facility] IMMATURE GRANS % 0.4 0.0 - 0.5 % 01/18/2025 10:[address] [facility] ABS. LYMPHOCYTES 1.36 0.80 - 4.70 x10'3/uL 01/18/2025 10:[address] [facility] 01/18/2025 9:19 AM CDT us Harshil Daniels MD LABORATORY Final R esult [facility] [address] [place] [address], [place] [phone] * URINE BACTERIA CULTURE (01/15/2025 10:08 PM CDT) SPEC DESCRIPTION URINE CLEAN CATCH 01/16/2025 1:[address] [facility] SPECIAL REQUESTS NO SPECIAL REQUEST 01/16/2025 1:[address] [facility] CULTURE RESULT POLYMICROBIAL GROWTH CONSISTENT WITH NORMAL GENITAL LEWIS. SUSCEPTIBILITIES NOT ROUTINELY PERFORMED. 01/19/2025 7:43 AM CDT [facility] URINE SPECIMEN OBTAINED BY CLEAN CATCH PROCEDURE / Unknown 01/15/2025 10:08 PM CDT 01/16/2025 1:50 PM CDT Kole Guzman MD MICROBIOLOGY - GENERAL ORDERAB LES Final Result [facility] [address] [place] [address], [place] [phone] [facility] [address] [place] [address], [place] [phone] * (ABNORMAL) URINALYSIS, AUTO, COMPLETE (01/15/2025 10:08 PM CDT) COLOR (U) YELLOW 01/15/2025 10:[address] [facility] TRANSPARENCY CLEAR 01/15/2025 10:[address] [facility] SPECIFIC GRAVITY (U) 1.025 1.000 - 1.030 01/15/2025 10:[address] [facility] U PH 5.5 5.0 - 9.0 01/15/2025 10:[address] [facility] LEUKOCYTES (U) NEGATIVE NEGATIVE 01/15/2025 10:[address] [facility] NITRITES NEGATIVE NEGATIVE 01/15/2025 10:[address] [facility] PROTEIN RANDOM (U) 2+(A) NEGATIVE 01/15/2025 10:[address] [facility] GLUCOSE (U) 3+(A) NEGATIVE 01/15/2025 10:[address] [facility] KETONES MG/DL (U) NEGATIVE NEGATIVE 01/15/2025 10:[address] [facility] BILIRUBIN (U) NEGATIVE NEGATIVE 01/15/2025 10:[address] [facility] BLOOD (U) NEGATIVE NEGATIVE 01/15/2025 10:[address] [facility] WBC/HPF 0-5 0 - 5 /HPF 01/15/2025 10:[address] [facility] RBC/HPF NONE SEEN 0 - 5 /HPF 01/15/2025 10:[address] [facility] EPI/HPF FEW /HPF 01/15/2025 10:[address] [facility] URINE SPECIMEN OBTAINED BY CLEAN CATCH PROCEDURE / Unknown 01/15/2025 10:08 PM CDT us Owen Prajapati MD URINE ORDERABLES Final Res ult [facility] [address] [place] [address], * (ABNORMAL) PARTIAL THROMBOPLASTIN TIME,PTT (01/15/2025 10:08 PM CDT) PTT 130.8() 27.0 - 36.8 SEC 01/16/2025 12:[address] [facility] Comment: CALLED RESULT CALLED TO EDUAR BEASLEY READ BACK AND VERIFIED 01/15/2025 10:0 8 PM CDT us Owen Prajapati MD LABORATORY Final Resu lt [facility] [address] [place] [address], [place] [phone] * (ABNORMAL) COMPREHENSIVE METABOLIC PANEL (01/15/2025 10:08 PM CDT) Only the most recent of2 resultswithin the time period is included. [facility] GLUCOSE 249(H) 70 - 99 MG/DL 01/15/2025 10:[address] [facility] BUN 40(H) 7 - 18 MG/DL 01/15/2025 10:[address] [facility] CREATININE S/P/B 3.06(H) 0.55 - 1.02 MG/DL 01/15/2025 10:[address] [facility] SODIUM S/P/B 140 136 - 145 MMOL/L 01/15/2025 10:[address] [facility] POTASSIUM S/P/B 5.1 3.5 - 5.1 MMOL/L 01/15/2025 10:[address] [facility] CHLORIDE S/P/B 107 100 - 108 MMOL/L 01/15/2025 10:[address] [facility] CO2 21.6 21 - 32 MMOL/L 01/15/2025 10:[address] [facility] CALCIUM S/P/B 8.2(L) 8.5 - 10.1 MG/DL 01/15/2025 10:[address] [facility] BILIRUBIN TOTAL S/P/B 0.4 0.2 - 1.2 MG/DL 01/15/2025 10:[address] [facility] TOTAL PROTEIN S/P/B 6.2(L) 6.4 - 8.2 G/DL 01/15/2025 10:[address] [facility] ALBUMIN S/P/B 2.8(L) 3.4 - 5.0 G/DL 01/15/2025 10:[address] [facility] AST 35 15 - 37 U/L 01/15/2025 10:[address] [facility] ALT 26 14 - 55 U/L 01/15/2025 10:[address] [facility] ALKALINE PHOSPHATASE S/P/B 92 50 - 136 U/L 01/15/2025 10:[address] [facility] ANION GAP 11.4 5 - 15 MMOL/L 01/15/2025 10:[address] [facility] BUN CREATININE RATIO 13.1 6 - 26 01/15/2025 10:[address] [facility] A/G RATIO 0.8(L) 1.0 - 2.0 RATIO 01/15/2025 10:[address] [facility] GFR ESTIMATE 15(L) >90 ML/MIN/1.7 3 M2 01/15/2025 10:[address] [facility] Comment: NOTE: eGFR is not calculated for patients <18 years of age. This is an estimated GFR calculation using the new CKD EPI creatinine equation without race and so does not require a correction factor for race. This estimated GFR should not be used for calculating drug doses. 01/15/2025 10:0 8 PM CDT us Owen Prajapati MD LABORATORY Final Resu lt [facility] [address] [place] [address], * MAGNESIUM (01/15/2025 10:08 PM CDT) MAGNESIUM 2.1 1.8 - 2.4 MG/DL 01/15/2025 10:[address] [facility] 01/15/2025 10:0 8 PM CDT us Owen Prajapati MD LABORATORY Final Resu lt [facility] [address] [place] [address], [place] [phone] * XR CHEST PA+LAT (11/30/2024 7:31 PM MUSICAL THERAPIST) Anatomical Region Laterality Modality Chest Radiographic Mayi ging 11/30/2024 7:33 PM MUSICAL THERAPIST Impressions 11/30/2024 7:36 PM MUSICAL THERAPIST IMPRESSION: 1. No radiographic evidence of active disease in the chest. 2. When comparing chest x-ray to CT there appears to be interval resolution of previously seen bilateral been noninfectious process. Referred By: Interpreted By: Marjan Mclaughlin DO, 11/30/2024 7:33 PM Narrative 11/30/2024 7:36 PM MUSICAL THERAPIST [facility] [address] [place] [address] CLINICAL INDICATION: 79-year-old female. Cough, dyspnea. 11/30/2024 [...] Procedure Note Marjan Mclaughlin MD - 11/30/2024 [facility] [address] [place] [address] CLINICAL INDICATION: 79-year-old female. Cough, dyspnea. 11/30/2024 [...] (ABNORMAL) PRO-BRAIN NATRIURETIC PEPTIDE (11/30/2024 6:46 PM MUSICAL THERAPIST) PRO-B TYPE NATRIURETIC PEPTIDE 2,703(H) <450 PG/ML 11/30/2024 7:27 PM MUSICAL THERAPIST [facility] () [facility] Comment: CUT POINTS ESTABLISHED BY [...] 72% FOR ACUTE CHF. 11/30/2024 6:46 PM MUSICAL THERAPIST us Shira Lira MD LABORATORY Final Resu lt Performing Organization Address City/[facility]/ZIP Co de Phone Number [facility] [address] [place] [address], [place] [phone] * CORONAVIRUS (COVID-19) MOLECULAR (11/30/2024 5:35 PM MUSICAL THERAPIST) CORONAVIRUS SARS COV 2 RNA NEGATIVE NEGATIVE 11/30/2024 6:[address] [facility] Comment: NEGATIVE RESULTS DO NOT [...] SARS-COV-2. SPECIMEN TYPE NASAL 11/30/2024 5:[address] [facility] NASOPHARYNGEAL SWAB / Unknown 11/30/2024 5:35 PM MUSICAL THERAPIST us Shira Lira MD MICROBIOLOGY - GENERAL ORD ERABLES Final Result Performing Organization Address City/[facility]/ZIP Co de Phone Number [facility] [address] [place] [address], [place] [phone] * INFLUENZA A & B (11/30/2024 5:35 PM MUSICAL THERAPIST) SPECIMEN TYPE NASOPHARYNX 11/30/2024 5:[address] [facility] INFLUENZA A NEGATIVE NEGATIVE 11/30/2024 6:[address] [facility] INFLUENZA B NEGATIVE NEGATIVE 11/30/2024 6:01 PM MUSICAL THERAPIST [facility] NASOPHARYNGEAL SWAB / Unknown 11/30/2024 5:35 PM MUSICAL THERAPIST Shira Lira MD MICROBIOLOGY - GENERAL ORD ERABLES Final Result [facility] [address] [place] [address], [place] [phone] from Last [address] [place] [address] Advance Directives * Full Code (Latest Code Status on File) Date Activated Date Inactivated Comments 01/16/2025 12:30 PM 01/18/2025 2:41 PM * Full Code Date Activated Date Inactivated Comments 11/18/2024 6:41 PM 11/21/2024 3:34 PM Care Teams Greenhouse Instructor Relationship Specialty Start Date End Date Oh Goode MD [address] [place] [address] PCP - General FAMILY PRACTICE 01/26/20
--- OUTSIDE RECORDS SUMMARY | 2025-02-22 12:08 | XMS_ITS | Referral Summary ---
Author Organization [place] [address] [address] [place] [phone] Care Team Providers Care Project Portfolio Analyst Name Role Phone Oh Goode MD Primary Care Provider [phone] Encounters Date Type Department Care Team Description 02/18/2025 Anticoagulation Visit [facility] Medical [facility] Cardiology [address] [place] [address] [place] [phone] Armando Grubbs RN 02/11/2025 Anticoagulation Visit [facility] Cardiology [address] [place] [address] [place] [phone] Lluvia Maza RN 02/11/2025 Telephone [facility] Cardiology [address] [place] [phone] Swapnil Wilson MD 02/06/2025 Anticoagulation Visit [facility] [address] [place] [address] [place] [phone] Salina Loja, NETTE 02/06/2025 Telephone [facility]iology [address] [place] [address] [place] [phone] Swapnil Wilson MD 02/06/2025 8:15 AM CDT Office Visit [facility] Medical Group Cardiology at [address] [place] [phone] 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; Orthostatic hypotension; [...] on file 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 Gender Identity Not on file Sexual Orientation [...] Procedure Name Priority Date/Time Associated Diagnosis Comments PROTIME-INR Routine 02/15/2025 PROTIME-INR Routine 02/08/2025 ECG 12-LEAD Routine 02/06/2025 9:13 AM CDT Chronic atrial fibrillation (HCC) HEMOGLOBIN A1C Routine 07/19/2015 8:16 AM CDT TNI WITH LIPID PANEL Routine 07/18/2015 10:10 AM CDT from Last 3 Months or Most Recently Relevant to Health Maintenance Results * (ABNORMAL) Protime-INR (02/15/2025) INR 1.80(A) 0.90 - 1.10 EXTERNAL LAB Blood 02/15/2025 Historical Provider MD LAB BLOOD ORDERABLES Nellie l Result Performing Organization Address [facility] Co de Phone Number EXTERNAL LAB * (ABNORMAL) Protime-INR (02/08/2025) INR 1.40(A) 0.90 - 1.10 EXTERNAL LAB Blood Historical Provider LAB BLOOD ORDERABLES Nellie l Result Performing Organization Address [facility] Co de Phone Number EXTERNAL LAB * ECG 12 lead (02/06/2025 9:13 AM CDT) Swapnil Wilson MD ECG ORDERABLES Final Re sult * (ABNORMAL) Hemoglobin A1c (07/19/2015 8:16 AM CDT) Hemoglobin A1c % 7.5(H) 4.8 - 5.9 % 07/19/2015 8:38 AM CDT [facility] HISTORICAL RESULTS Comment: [place] [employer] recommends that the goal of therapy should be an A1C hemoglobin of <7%. Reevaluate the treatment regimen in patients with an A1C >8%. 07/19/2015 8:16 AM CDT 07/19/2015 8:19 AM CDT Max Willson NP LAB BLOOD ORDERABLES Final Resu lt Performing Organization Address City/[facility] Co de Phone Number [facility] HISTORICAL RESULTS * (ABNORMAL) TNI with LIPID PANEL (07/18/2015 10:10 AM CDT) Troponin I < 0.300 0.000 - 0.300 ng/mL 07/18/2015 10:41 AM T [facility] HISTORICAL RESULTS Comment: Reference using YENI Chemiluminescence Negative: Repeat in 4-6 hours as indicated. Triglycerides 240(H) 0 - 199 mg/dL 07/18/2015 10:44 AM T [facility] HISTORICAL RESULTS Comment:12 hr pc highly lenard mmended for Triglyceride Cholesterol 194 0 - 199 mg/dL 07/18/2015 10:44 AM [facility] HISTORICAL RESULTS Comment: Borderline: 200-239 High Risk: >239 HDL Cholesterol 47 40 - 60 mg/dL 07/18/2015 10:44 AM T [facility] HISTORICAL RESULTS Comment: Major Risk < 40 mg/dL Moderate Risk 40-60 mg/dL Negative Risk > 60 mg/dL LDL Cholesterol, Calc 99 0 - 130 mg/dL 07/18/2015 10:44 AM T [facility] HISTORICAL RESULTS Comment:High Risk > 159 mg/d L Cholesterol/HDL Ratio 4.1 07/18/2015 10:44 AM [facility] HISTORICAL RESULTS Comment: Cholesterol / HDL Ratio 3.5:1 or less is desirable. Cholesterol / HDL Ratio greater than 5:1 is considered higher risk for developing heart disease. 07/18/2015 10:1 0 AM CDT 07/18/2015 10:15 AM CDT us Kole Mike MD LAB BLOOD ORDERABLES Fin al Result [facility] HISTORICAL RESULTS from Last 3 Months or Most Recently Relevant to Health Maintenance Insurance [facility] MEDICARE [employer] [facility]IC[facility] Address: [address] [address] [place] [address] [id number] MEDIC[facility] ADVANTAGE [facility]IC[facility] Address: [address] [address] [place] [address] Care Teams Project Portfolio Analyst Relationship Specialty Start Date End Date Oh Goode MD PCP - General 05/28/13
--- OUTSIDE RECORDS SUMMARY | 2025-02-22 12:08 | XMS_ITS | Encounter Summary ---
Author Organization [facility] Healthcare Address [address] [place] [address] Care Team Providers Care Lemon Grower Name Role Phone Oh Goode MD Primary Care Provider [phone] Encounter Details Date Type Department Care Team (Late st Contact Info) Description 02/11/2025 Telephone [facility] Medical Group Cardiology [address] [phone] Swapnil Wilson MD [address] [facility] [address] [place] [address] Social History Tobacco Use Types Packs/Day Years Used Date Smoking Tobacco: Never Smokeless Tobacco: Never Alcohol Use Standard Drinks/Week Comments Yes 0 (1 standard drink = 0.6 oz pur e alcohol) Comments Unknown Sex and Gender Information Value Date Recorded Sex Assigned at Not on file 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 * Telephone Encounter - Shannan Benoit - 02/12/2025 8:15 AM CDT Pts daughter Mikki returned Lluvia Gurrola call. She stated that she cannot listen to her voicemail's due to her phone not working correctly. She said that you can still call her at the number listed below. Please advise she is requesting a call back. Thank you Contact: * Telephone Encounter - Lluvia Maza RN - 02/11/2025 3:02 PM CDT LM on requesting return call to discuss. * Telephone Encounter - Lluvia Maza RN - 02/11/2025 1:57 PM CDT Request for INR results from faxed. * Telephone Encounter - Whit Richardson - 02/11/2025 10:09 AM CDT Pt dtr Mikki requesting call to discuss INR results from Thursday 02/08. Contact: documented in this encounter Plan of Treatment Not on file documented as of this encounter Visit Diagnoses Not on filedocumented in this encounter Care Teams Lemon Grower Relationship Specialty Start Date End Date Oh Goode MD PCP - General 05/28/13 documented as of this encounter
--- OUTSIDE RECORDS SUMMARY | 2025-02-22 12:08 | XMS_ITS | Clinical Summary ---
Author Organization [facility] [address] Address [address] [place] [address] Care Team Providers Care Fruit And Vegetable Classer Name Role Phone Oh Goode MD Primary Care Provider [phone] Allergies Active Allergy Reactions Criticality Noted Date [...] Department Care Team Description 02/18/2025 Anticoagulation Visit [facility] Medical [facility] Cardiology [address] [facility] [place] [phone] Armando Grubbs RN 02/11/2025 Anticoagulation Visit [facility] [address] [place] [address] Lluvia Maza RN 02/11/2025 Telephone [facility] Cardiology [address] [place] [address] Swapnil Wilson MD 02/06/2025 8:15 AM CDT Office Visit [facility] Medical Group Cardiology at [address] [place] [phone] Swapnil Wilson MD snf current use of anticoagulant therapy; Orthostatic hypotension; Chronic atrial fibrillation (HCC); Dyspnea, unspecified type 02/06/2025 Anticoagulation Visit [facility] Cardiology [address] [place] [address] Salina Loja RN 02/06/2025 Telephone [facility]iology [address] [facility] [address] [place] [phone] Swapnil Wilson MD from Last 3 Months Surgical History Surgery Date Site/Laterality Comments OTHER SURGICAL HISTORY breast lump: HYSTERECTOMY 1981 Hysterectomy OTHER SURGICAL HISTORY Sleep Apnea: Medical History Medical History Date Comments Hx Other Medical Diabetes Type I I Depression Depression Hypertension Hypertension Hx Other Medical 1978 breast lump Hx Other Medical DJD Sleep [...] on file 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 Gender Identity Not on file Sexual Orientation [...] Health Maintenance Due Date Last Done Comments Albumin Creatinine Ratio, Urine 1946 Depression Screening 1946 Fall Risk Assessment 1946 Hepatitis C Screening 1946 Osteoporosis Screening-Bone Density Scan 1946 eGFR 1946 Dilated Eye Exam 1946 Foot Exam 1946 Hepatitis B Screening 1964 Zoster Vaccine (1 of 2) 1996 Well Visit 65+ 2011 Hemoglobin A1C 01/17/2016 07/19/2015 Lipid Panel 07/18/2016 07/18/2015, 11/21/2014 Covid-19 Vaccine (2023-2 5 season) 2025 08/31/2024, 04/23/2022, 08/25/2021, Additional [...] ORDERABLES Nellie l Result Performing Organization Address [facility] Co de Phone Number EXTERNAL LAB * (ABNORMAL) Protime-INR (02/08/2025) INR 1.40(A) 0.90 - 1.10 EXTERNAL LAB Blood Historical Provider MD LAB BLOOD ORDERABLES Nellie l Result Performing Organization Address [facility] Co de Phone Number EXTERNAL LAB * ECG 12 lead (02/06/2025 9:13 AM CDT) Swapnil Wilson MD ECG ORDERABLES Final Re sult * (ABNORMAL) Hemoglobin A1c (07/19/2015 8:16 AM CDT) Hemoglobin A1c % 7.5(H) 4.8 - 5.9 % 07/19/2015 8:38 AM CDT [facility] HISTORICAL RESULTS Comment: [place] Diabetes Association recommends that the goal of therapy should be an A1C hemoglobin of <7%. Reevaluate the treatment regimen in patients with an A1C >8%. 07/19/2015 8:16 AM CDT 07/19/2015 8:19 AM CDT Max Willson POWER GENERATION EQUIPMENT REPAIRER LAB BLOOD ORDERABLES Final Resu lt Performing Organization Address [facility] Co de Phone Number [facility] HISTORICAL RESULTS * (ABNORMAL) TNI with LIPID PANEL (07/18/2015 10:10 AM CDT) Troponin I < 0.300 0.000 - 0.300 ng/mL 07/18/2015 10:41 AM CDT [facility] [employer] [facility] HISTORICAL RESULTS Comment: Reference using YENI Chemiluminescence Negative: Repeat in 4-6 hours as indicated. Triglycerides 240(H) 0 - 199 mg/dL 07/18/2015 10:44 AM T [employer] HISTORICAL RESULTS Comment:12 hr pc highly lenard mmended for Triglyceride Cholesterol 194 0 - 199 mg/dL 07/18/2015 10:44 AM [facility] [employer] HISTORICAL RESULTS Comment: Borderline: 200-239 High Risk: >239 HDL Cholesterol 47 40 - 60 mg/dL 07/18/2015 10:44 AM T [facility] [employer] HISTORICAL RESULTS Comment: Major Risk < 40 mg/dL Moderate Risk 40-60 mg/dL Negative Risk > 60 mg/dL LDL Cholesterol, Calc 99 0 - 130 mg/dL 07/18/2015 10:44 AM T [employer] HISTORICAL RESULTS Comment:High Risk > 159 mg/d L Cholesterol/HDL Ratio 4.1 07/18/2015 10:44 AM [facility] [employer] HISTORICAL RESULTS Comment: Cholesterol / HDL Ratio 3.5:1 or less is desirable. Cholesterol / HDL Ratio greater than 5:1 is considered higher risk for developing heart disease. 07/18/2015 10:1 0 AM CDT 07/18/2015 10:15 AM CDT us Kole Mike MD LAB BLOOD ORDERABLES Fin al Result [facility] HISTORICAL RESULTS from Last 3 Months or Most Recently Relevant to Health Maintenance Insurance [facility] MEDICARE ADVANTAGE [facility] MEDICARE ADVANTAGE Care Teams Fruit And Vegetable Classer Relationship Specialty Start Date End Date Oh Goode MD PCP - General 05/28/13
[2025-02-22 12:34] LABS: Albumin Level 3.3 g/dL (3.5-5.1); Anion Gap 9 mmol/L (4-12); Blood Urea Nitrogen 38 mg/dL (7-17); Calcium 8.3 mg/dL (8.4-10.2); Carbon Dioxide 24 mmol/L (22-30); Chloride 107 mmol/L (98-107); Estimated Glomerular Filt Rate 20; Glucose 162 mg/dL (65-110); Phosphorus 4.5 mg/dL (2.5-4.5); Potassium 4.3 mmol/L (3.4-5.0); Sodium 140 mmol/L (137-145)
[2025-02-22 12:46] LABS: Parathyroid Intact 131.1 pg/mL (14.5-75.2)
[2025-02-22 13:34] LABS: Creatinine Urine 45.3 mg/dL; Total Protein Urine Random 84 mg/dL; Ur Ttl Prot Creatinine Ratio 1.85 mg/mg (0-0.20)
== END 2025-02-22 12:07 | disposition home or self-care (01) ==
PROVIDERS: PCP Family Medicine; Visit Provider Internal Medicine Nephrology
DX: N18.32 Chronic kidney disease, stage 3b (principal)
CPT/HCPCS: 36415; 80069; 82570; 83970; 84156

== ENCOUNTER 2025-02-26 10:42 | Outpatient (CLI) | payer MEDICARE, SELFPAY ==
--- NOTE | ~2025-02-26 | MR_ITS ---
EXAMINATION: MR IAC wo/w con DATE: 02/26/2025 12:15 INDICATION: Bilateral sensorineural hearing loss TECHNIQUE: Magnetic resonance imaging (MRI) of the brain and brainstem was performed without and with 19 mL ProHance intravenous contrast. Sequences included sagittal and axial T1-weighted SE, axial dif fusion-weighted FS SE, axial 3D SWAN, axial T2-weighted FLAIR, and axial T2-weighted FSE. Postcontras t axial and coronal T1-weighted SE was obtained. Apparent diffusion coefficient (ADC) maps were creat ed. COMPARISON: Brain MR dated 01/17/2024 FINDINGS: There are no areas of restricted diffusion to suggest acute infarction. Unchanged small region of enc ephalomalacia consistent with old infarct along a gyrus in the left frontal lobe along with a few add itional small old lacunar infarcts in the right caudate nucleus, in the bilateral periventricular fro ntal lobe marino radiata and at the bilateral cerebellar hemispheres. New small old lacunar infarct a long a gyrus in the posterior right frontal lobe. No intracranial hemorrhage or abnormal intracranial mass lesion. There are scattered areas of nonspecific increased T2-weighted signal intensity in the cerebral white matter, predominantly involving the deep and periventricular white matter. There are n o intraparenchymal signal abnormalities seen on the other pulse sequences. The ventricles are symmetr ic and normal in size. There are no abnormal extra-axial fluid collections. Normal seventh/eighth target aircraft controller nial nerve complexes. No cerebellopontine angles masses. No abnormal enhancing brain lesions identif ied. No evidence of mastoid or middle ear fluid. Flow voids are seen in the cerebral arteries on the T2-weighted sequences consistent with their expected patency. Changes of left intraocular lens replac ement. Mild mucoperiosteal thickening in the bilateral ethmoid, frontal and maxillary sinuses. Mucous retention cyst in the left maxillary sinus. Visualized orbits and soft tissues are unremarkable. IMPRESSION: 1. 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 No acute intracranial process. 2. Bilateral internal auditory canals, mastoid air cells, middle ear cavities, inner ear structures a nd the 7th and 8th cranial nerve complexes are unremarkable. No masses at the cerebral pontine angles Reviewed, dictated and finalized at location A. IMPRESSION: 1. 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 No acute intracranial process. 2. Bilateral internal auditory canals, mastoid air cells, middle ear cavities, inner ear structures and the 7th and 8th cranial nerve complexes are unremarkab le. No masses at the cerebral pontine angles
--- OUTSIDE RECORDS SUMMARY | 2025-02-26 12:17 | XMS_ITS | Encounter Summary ---
Author Organization [facility] Healthcare Address [address] [place] [address] Care Team Providers Care Lightning Rod Installer Name Role Phone Oh Goode MD Primary Care Provider [phone] Encounter Details Date Type Department Care Team (Late st Contact Info) Description 02/25/2025 Anticoagulation Visit [facility] Medical Group Cardiology [address] [place] [phone] Christina Delarosa RN Social History Tobacco Use Types Packs/Day Years Used Date Smoking Tobacco: Never Smokeless Tobacco: Never Alcohol Use Standard Drinks/Week Comments Yes 0 (1 standard drink = 0.6 oz pur e alcohol) Comments Unknown Sex and Gender Information Value Date Recorded Sex Assigned at Not on file 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 Gender Identity Not on file Sexual Orientation Not on file documented as of this encounter Plan of Treatment Not on file documented as of this encounter Procedures Procedure Name Priority Date/Time Associated Diagnosis Comments PROTIME-INR Routine 02/22/2025 documented in this encounter Results * (ABNORMAL) Protime-INR (02/22/2025) INR 1.90(A) 0.90 - 1.10 EXTERNAL LAB Blood us Historical Provider LAB BLOOD ORDERABLES Nellie l Result EXTERNAL LAB documented in this encounter Visit Diagnoses Not on filedocumented in this encounter Care Teams Lightning Rod Installer Relationship Specialty Start Date End Date Oh Goode MD PCP - General 05/28/13 documented as of this encounter
--- OUTSIDE RECORDS SUMMARY | 2025-02-26 12:17 | XMS_ITS | Referral Summary ---
Author Organization [place] [address] [address] [address] Care Team Providers Care Web Portal Developer Name Role Phone Oh Goode MD Primary Care Provider [phone] Encounters Date Type Department Care Team Description 02/25/2025 Anticoagulation Visit [facility] Medical [facility] Cardiology [address] [place] [address] [place] [phone] Christina Delarosa, NETTE 02/18/2025 Anticoagulation Visit [facility] Cardiology [address] [place] [address] [place] [phone] Armando Grubbs RN 02/11/2025 Anticoagulation Visit [facility] Cardiology [address] [place] [address] [place] [phone] Lluvia Maza, RN 02/11/2025 Telephone [facility] Cardiology [address] [place] [address] [place] [phone] Swapnil Wilson MD 02/06/2025 Anticoagulation Visit [facility] Cardiology [address] [place] [address] [place] [phone] Salina Loja RN 02/06/2025 Telephone [facility] Cardiology [address] [place] [address] [place] [phone] Swapnil Wilson MD 02/06/2025 8:15 AM CDT Office Visit [facility] Medical Group Cardiology at [address] [place] [address] Swapnil Wilson MD jail current use of anticoagulant therapy; Orthostatic hypotension; [...] on file 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 Gender Identity Not on file Sexual Orientation [...] Date/Time Associated Diagnosis Comments PROTIME-INR Routine 02/22/2025 PROTIME-INR Routine 02/15/2025 PROTIME-INR Routine 02/08/2025 ECG 12-LEAD Routine 02/06/2025 9:13 AM CDT Chronic atrial fibrillation (HCC) HEMOGLOBIN A1C Routine 07/19/2015 8:16 AM CDT TNI WITH LIPID PANEL Routine 07/18/2015 10:10 AM CDT from Last 3 Months or Most Recently Relevant to Health Maintenance Results * (ABNORMAL) Protime-INR (02/22/2025) INR 1.90(A) 0.90 - 1.10 EXTERNAL LAB Blood Historical Provider MD LAB BLOOD ORDERABLES Nellie l Result EXTERNAL LAB * (ABNORMAL) Protime-INR (02/15/2025) INR 1.80(A) 0.90 - 1.10 EXTERNAL LAB Blood 02/15/2025 Historical Provider MD LAB BLOOD ORDERABLES Nellie l Result EXTERNAL LAB * (ABNORMAL) Protime-INR (02/08/2025) INR 1.40(A) 0.90 - 1.10 EXTERNAL LAB Blood Historical Provider MD LAB BLOOD ORDERABLES Nellie l Result EXTERNAL LAB * ECG 12 lead (02/06/2025 9:13 AM CDT) Swapnil Wilson MD ECG ORDERABLES Final Re sult * (ABNORMAL) Hemoglobin A1c (07/19/2015 8:16 AM CDT) Hemoglobin A1c % 7.5(H) 4.8 - 5.9 % 07/19/2015 8:[address] [facility] HISTORICAL RESULTS Comment: [place] Diabetes Association recommends that the goal of therapy should be an A1C hemoglobin of <7%. Reevaluate the treatment regimen in patients with an A1C >8%. 07/19/2015 8:16 AM CDT 07/19/2015 8:19 AM CDT us Max Willson DOCUMENTATION MANAGER LAB BLOOD ORDERABLES Final Resu lt [facility] HISTORICAL RESULTS * (ABNORMAL) TNI with LIPID PANEL (07/18/2015 10:10 AM CDT) [facility] Troponin I < 0.300 0.000 - 0.300 ng/mL 07/18/2015 10:[address] [facility] HISTORICAL RESULTS Comment: Reference using YENI Chemiluminescence Negative: Repeat in 4-6 hours as indicated. Triglycerides 240(H) 0 - 199 mg/dL 07/18/2015 10:44 AM [facility] [employer] [facility] HISTORICAL RESULTS Comment:12 hr pc highly lenard mmended for Triglyceride Cholesterol 194 0 - 199 mg/dL 07/18/2015 10:[address] [facility] HISTORICAL RESULTS Comment: Borderline: 200-239 High Risk: >239 HDL Cholesterol 47 40 - 60 mg/dL 07/18/2015 10:44 AM [facility] HISTORICAL RESULTS Comment: Major Risk < 40 mg/dL Moderate Risk 40-60 mg/dL Negative Risk > 60 mg/dL LDL Cholesterol, Calc 99 0 - 130 mg/dL 07/18/2015 10:44 AM [facility] [employer] HISTORICAL RESULTS Comment:High Risk > 159 mg/d L Cholesterol/HDL Ratio 4.1 07/18/2015 10:44 AM [facility] [employer] [facility] HISTORICAL RESULTS Comment: Cholesterol / HDL Ratio 3.5:1 or less is desirable. Cholesterol / HDL Ratio greater than 5:1 is considered higher risk for developing heart disease. 07/18/2015 10:1 0 AM CDT 07/18/2015 10:15 AM CDT Kole Mike MD LAB BLOOD ORDERABLES Fin al Result [facility] [employer] HISTORICAL RESULTS from Last 3 Months or Most Recently Relevant to Health Maintenance Insurance [facility] MEDICARE Address: [address] [address] MEDICARE ADVANTAGE [facility] MEDIC[facility] Address: [address] [address] [place] [address] Care Teams Web Portal Developer Relationship Specialty Start Date End Date Oh Goode MD PCP - General 05/28/13
--- OUTSIDE RECORDS SUMMARY | 2025-02-26 12:17 | XMS_ITS | Encounter Summary ---
Author Organization [facility] Healthcare Address [address] [place] [address] Care Team Providers Care Safety And Security Officer Name Role Phone Oh Goode MD Primary Care Provider [phone] Encounter Details Date Type Department Care Team (Late st Contact Info) Description 02/11/2025 Telephone [facility] Medical Group Cardiology [address] [phone] Swapnil Wilson MD [address] [facility] [address] [place] [address] Social History Tobacco Use Types Packs/Day Years Used Date Smoking Tobacco: Never Smokeless Tobacco: Never Alcohol Use Standard Drinks/Week Comments Yes 0 (1 standard drink = 0.6 oz pur e alcohol) Comments Unknown Sex and Gender Information Value Date Recorded Sex Assigned at Not on file 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
--- OUTSIDE RECORDS SUMMARY | 2025-02-26 12:17 | XMS_ITS | Clinical Summary ---
Author Organization [facility] Address [address] [place] [address] Care Team Providers Care Paraffin Plant Sweater Operator Name Role Phone Oh Goode MD Primary Care Provider [phone] Allergies Active Allergy Reactions Criticality Noted Date [...] vitamin D2, ergocalciferol, (VITAMIN D, ERGOCALCIFEROL, ) 59443 UNITS capsule Take 1 capsule (50,000 Units [...] Care Team Description 01/21/2025 Hospital Follow-up Call [facility] [address] [place] [address] Zhane Salazar LPN Follow Up Call ([facility] 01/15-01/18/25) 01/16/2025 Travel 01/15/2025 9:26 PM CDT - 01/18/2025 12:30 PM CDT Hospital Encounter [facility] Med/Surg [address] [place] [address] Owen Prajapati MD Daniels, Darcy L, Kole Krishna MD Suresh, Harshil Shrestha MD Medical Problem Discharge Disposition: Home or Self Care (Routine Discharge) 01/15/2025 Travel 11/30/2024 5:32 PM POWER CLEANER OPERATOR - 11/30/2024 8:45 PM [facility] Emergency [facility] Emergency Room [address] [place] [address] Shira Lira MD URI Discharge Disposition: Home [...] from your doctor or pharmacy? Sometimes 01/16/2025 [facility] Utilities Answer Date Recorded In the past 12 months has [facility] [employer], gas, oil, or water [employer] threatened to shut off services in your [...] often do you attend chur ch or amish services? More than 4 times per year 01/16/2025 Do you belong to any clubs o r organizations such as shinto groups, unions, fraternal or athletic groups, or [...] any time in the past 12 [facility], were you homeless or living in a residential (including now)? No 01/16/2025 Comments No Sex and Gender Information Value Date Recorded Sex Assigned at Female 11/20/2024 10:33 AM POWER CLEANER OPERATOR Legal Sex Female 4:30 PM CDT Gender Identity Female 11/20/2024 10:33 AM POWER CLEANER OPERATOR Sexual Orientation Not on file Last Filed [...] Vaccine: 50+ Years (2 of 2 - PPSV23) 10/02/2020 10/02/2019 RSV Immunization or 60+ Years (1 - 1-dose 75+ series) 2021 COVID-19 Vaccine (5 - season) 2024 04/23/2022, 08/25/2021, 02/01/2021, Additional history exists DTaP, Tdap and Td Vaccines (2 - Td or Tdap) 10/05/2026 10/05/2016 PHQ-2 (Physician [place]) Completed 01/16/2025 Meningococcal B Vaccine Aged Out [...] XR CHEST PA+LAT STAT 11/30/2024 7:31 PM POWER CLEANER OPERATOR PRO-BRAIN NATRIURETIC PEPTIDE STAT 11/30/2024 6:46 PM POWER CLEANER OPERATOR COMPREHENSIVE METABOLIC PANEL STAT 11/30/2024 6:46 PM POWER CLEANER OPERATOR CBC W/DIFF AUTOMATED STAT 11/30/2024 6:46 PM POWER CLEANER OPERATOR INFLUENZA A & B STAT 11/30/2024 5:35 PM POWER CLEANER OPERATOR CORONAVIRUS (COVID 19) STAT 5:35 PM POWER CLEANER OPERATOR from Last 3 Months Results * (ABNORMAL) POCT glucose (01/18/2025 11:05 AM CDT) Only the most recent of10 resultswithin the time period is included. GLUCOSE POC 173(H) 70 - 110 mg/dL 01/18/2025 11:31 AM CDT [facility] 01/18/2025 11:0 5 AM CDT Harshil Daniels MD POCT ORDERABLES - DEVIC E Final Result Performing Organization Address [facility] Co de Phone Number [facility] [address] [place] [address], [place] [phone] * (ABNORMAL) PROTIME/INR, VENOUS (01/18/2025 9:19 AM CDT) Only the most recent of4 resultswithin the time period is included. PROTIME 19.1(H) 9.1 - 12.4 SEC 01/18/2025 9:43 AM CDT [facility] INR 1.7 01/18/2025 9:43 AM CDT [facility] Comment: Recommend INR ranges for Oral Anticoagulant Therapy: Mechanical Cardiac Values 2.5-3.5 All others indication 2.0-3.0 01/18/2025 9:19 AM CDT Harshil Daniels MD LABORATORY Final R esult Performing Organization Address City/[facility]/ZIP Co de Phone Number [facility] [address] [place] [address], [place] [phone] * (ABNORMAL) BASIC METABOLIC PANEL (01/18/2025 9:19 AM CDT) Only the most recent of2 resultswithin the time period is included. [facility] GLUCOSE 186(H) 70 - 99 MG/DL 01/18/2025 9:57 AM [facility] BUN 43(H) 7 - 18 MG/DL 01/18/2025 9:57 AM [facility] CREATININE S/P/B 2.70(H) 0.55 - 1.02 MG/DL 01/18/2025 9:57 AM [facility] SODIUM S/P/B 137 136 - 145 MMOL/L 01/18/2025 9:57 AM [facility] POTASSIUM S/P/B 4.4 3.5 - 5.1 MMOL/L 01/18/2025 9:57 AM [facility] CHLORIDE S/P/B 105 100 - 108 MMOL/L 01/18/2025 9:57 AM [facility] CO2 24.4 21 - 32 MMOL/L 01/18/2025 9:57 AM [facility] CALCIUM S/P/B 8.6 8.5 - 10.1 MG/DL 01/18/2025 9:57 AM [facility] ANION GAP 7.6 5 - 15 MMOL/L 01/18/2025 9:57 AM [facility] BUN CREATININE RATIO 15.9 6 - 26 01/18/2025 9:57 AM [facility] GFR ESTIMATE 18(L) >90 ML/MIN/1.7 3 M2 01/18/2025 9:57 AM [facility] Comment: NOTE: eGFR is not calculated for patients <18 years of age. This is an estimated GFR calculation using the new CKD EPI creatinine equation without race and so does not require a correction factor for race. This estimated GFR should not be used for calculating drug doses. 01/18/2025 9:19 AM CDT us Harshil Daniels MD LABORATORY Final R esult [facility] [address] [place] [address], [place] [phone] * (ABNORMAL) CBC W/DIFF AUTOMATED (01/18/2025 9:19 AM CDT) Only the most recent of4 resultswithin the time period is included. WBC 4.46 4.4 - 11.0 x10'3/uL 01/18/2025 10:52 AM CDT [facility] RBC 2.63(L) 4.50 - 5.10 x10'6/uL 01/18/2025 10:52 AM CDT [facility] HGB 9.0(L) 12.3 - 15.3 G/DL 01/18/2025 10:52 AM CDT [facility] HCT 27.9(L) 35.9 - 44.6 % 01/18/2025 10:52 AM CDT [facility] MCV 106.1(H) 80.0 - 96.0 FL 01/18/2025 10:52 AM CDT [facility] MCH 34.2(H) 25.3 - 30.9 PG 01/18/2025 10:52 AM CDT [facility] MCHC 32.3 31.0 - 34.1 G/DL 01/18/2025 10:52 AM CDT [facility] RDW 17.9(H) 12.4 - 15.1 % 01/18/2025 10:52 AM CDT [facility] PLT 291 151 - 353 x10'3/uL 01/18/2025 10:52 AM CDT [facility] MPV 9.6 9.6 - 12.0 FL 01/18/2025 10:52 AM CDT [facility] RBC MORPHOLOGY NORMAL 01/18/2025 10:52 AM CDT [facility] PLT MORPH. NORMAL 01/18/2025 10:52 AM CDT [facility] WBC MORPHOLOGY NORMAL 01/18/2025 10:52 AM CDT [facility] LYMPHOCYTES % 30.5 15.8 - 45.0 % 01/18/2025 10:52 AM CDT [facility] NEUTROPHILS % 59.5 42.1 - 71.9 % 01/18/2025 10:52 AM CDT [facility] MONOCYTES % 6.1 5.7 - 12.5 % 01/18/2025 10:52 AM CDT [facility] EOSINOPHILS 3.1 0.0 - 5.6 % 01/18/2025 10:52 AM CDT [facility] BASOPHILS 0.4 0.0 - 1.3 % 01/18/2025 10:52 AM CDT [facility] ABS. NEUTROPHILS 2.65 1.40 - 6.00 x10'3/uL 01/18/2025 10:52 AM CDT [facility] IMMATURE GRANS % 0.4 0.0 - 0.5 % 01/18/2025 10:52 AM CDT [facility] ABS. LYMPHOCYTES 1.36 0.80 - 4.70 x10'3/uL 01/18/2025 10:52 AM CDT [facility] 01/18/2025 9:19 AM CDT us Harshil Daniels MD LABORATORY Final R esult [facility] [address] [place] [address], [place] [phone] * URINE BACTERIA CULTURE (01/15/2025 10:08 PM CDT) SPEC DESCRIPTION URINE CLEAN CATCH 01/16/2025 1:50 PM CDT [facility] SPECIAL REQUESTS NO SPECIAL REQUEST 01/16/2025 1:50 PM CDT [facility] CULTURE RESULT POLYMICROBIAL GROWTH CONSISTENT WITH NORMAL GENITAL LEWIS. SUSCEPTIBILITIES NOT ROUTINELY PERFORMED. 01/19/2025 7:43 AM CDT [facility] URINE SPECIMEN OBTAINED BY CLEAN CATCH PROCEDURE / Unknown 01/15/2025 10:08 PM CDT 01/16/2025 1:50 PM CDT us Kole Guzman MD MICROBIOLOGY - GENERAL ORDERAB LES Final Result [facility] [address] [place] [address], [place] [phone] [facility] [address] [place] [address], [place] [phone] * (ABNORMAL) URINALYSIS, AUTO, COMPLETE (01/15/2025 10:08 PM CDT) COLOR (U) YELLOW 01/15/2025 10:44 PM CDT [facility] TRANSPARENCY CLEAR 01/15/2025 10:44 PM CDT [facility] SPECIFIC GRAVITY (U) 1.025 1.000 - 1.030 01/15/2025 10:44 PM CDT [facility] U PH 5.5 5.0 - 9.0 01/15/2025 10:44 PM CDT [facility] LEUKOCYTES (U) NEGATIVE NEGATIVE 01/15/2025 10:44 PM CDT [facility] NITRITES NEGATIVE NEGATIVE 01/15/2025 10:44 PM CDT [facility] PROTEIN RANDOM (U) 2+(A) NEGATIVE 01/15/2025 10:44 PM CDT [facility] GLUCOSE (U) 3+(A) NEGATIVE 01/15/2025 10:44 PM CDT [facility] KETONES MG/DL (U) NEGATIVE NEGATIVE 01/15/2025 10:44 PM CDT [facility] BILIRUBIN (U) NEGATIVE NEGATIVE 01/15/2025 10:44 PM CDT [facility] BLOOD (U) NEGATIVE NEGATIVE 01/15/2025 10:44 PM CDT [facility] WBC/HPF 0-5 0 - 5 /HPF 01/15/2025 10:44 PM CDT [facility] RBC/HPF NONE SEEN 0 - 5 /HPF 01/15/2025 10:44 PM CDT [facility] EPI/HPF FEW /HPF 01/15/2025 10:44 PM CDT [facility] URINE SPECIMEN OBTAINED BY CLEAN CATCH PROCEDURE / Unknown 01/15/2025 10:08 PM CDT us Owen Prajapati MD URINE ORDERABLES Final Res ult [facility] [address] [place] [address], * (ABNORMAL) PARTIAL THROMBOPLASTIN TIME,PTT (01/15/2025 10:08 PM CDT) PTT 130.8() 27.0 - 36.8 SEC 01/16/2025 12:05 AM CDT [facility] Comment: CALLED RESULT CALLED TO EDUAR BEASLEY READ BACK AND VERIFIED 01/15/2025 10:0 8 PM CDT us Owen Prajapati MD LABORATORY Final Resu lt [facility] [address] [place] [address], [place] [phone] * (ABNORMAL) COMPREHENSIVE METABOLIC PANEL (01/15/2025 10:08 PM CDT) Only the most recent of2 resultswithin the time period is included. [facility] GLUCOSE 249(H) 70 - 99 MG/DL 01/15/2025 10:38 PM CDT [facility] BUN 40(H) 7 - 18 MG/DL 01/15/2025 10:38 PM CDT [facility] CREATININE S/P/B 3.06(H) 0.55 - 1.02 MG/DL 01/15/2025 10:38 PM CDT [facility] SODIUM S/P/B 140 136 - 145 MMOL/L 01/15/2025 10:38 PM CDT [facility] POTASSIUM S/P/B 5.1 3.5 - 5.1 MMOL/L 01/15/2025 10:38 PM CDT [facility] CHLORIDE S/P/B 107 100 - 108 MMOL/L 01/15/2025 10:38 PM CDT [facility] CO2 21.6 21 - 32 MMOL/L 01/15/2025 10:38 PM CDT [facility] CALCIUM S/P/B 8.2(L) 8.5 - 10.1 MG/DL 01/15/2025 10:38 PM CDT [facility] BILIRUBIN TOTAL S/P/B 0.4 0.2 - 1.2 MG/DL 01/15/2025 10:38 PM CDT [facility] TOTAL PROTEIN S/P/B 6.2(L) 6.4 - 8.2 G/DL 01/15/2025 10:38 PM CDT [facility] ALBUMIN S/P/B 2.8(L) 3.4 - 5.0 G/DL 01/15/2025 10:38 PM CDT [facility] AST 35 15 - 37 U/L 01/15/2025 10:38 PM CDT [facility] ALT 26 14 - 55 U/L 01/15/2025 10:38 PM CDT [facility] ALKALINE PHOSPHATASE S/P/B 92 50 - 136 U/L 01/15/2025 10:38 PM T [facility] ANION GAP 11.4 5 - 15 MMOL/L 01/15/2025 10:38 PM T [facility] BUN CREATININE RATIO 13.1 6 - 26 01/15/2025 10:38 PM T [facility] A/G RATIO 0.8(L) 1.0 - 2.0 RATIO 01/15/2025 10:38 PM T [facility] GFR ESTIMATE 15(L) >90 ML/MIN/1.7 3 M2 01/15/2025 10:38 PM CDT [facility] Comment: NOTE: eGFR [...] Owen Prajapati MD LABORATORY Final Resu lt [facility] [address] [place] [id number], * MAGNESIUM (01/15/2025 10:08 PM CDT) MAGNESIUM 2.1 1.8 - 2.4 MG/DL 01/15/2025 10:38 PM CDT [facility] 01/15/2025 10:0 8 PM CDT us Owen Prajapati MD LABORATORY Final Resu lt [facility] [address] [place] [address], [place] [phone] * XR CHEST PA+LAT (11/30/2024 7:31 PM POWER CLEANER OPERATOR) Anatomical Region Laterality Modality Chest Radiographic Mayi ging 11/30/2024 7:33 PM POWER CLEANER OPERATOR Impressions 11/30/2024 7:36 PM POWER CLEANER OPERATOR IMPRESSION: 1. No radiographic evidence of active disease in the chest. 2. When comparing chest x-ray to CT there appears to be interval resolution of previously seen bilateral been noninfectious process. Referred By: Interpreted By: Marjan Mclaughlin DO, 11/30/2024 7:33 PM Narrative 11/30/2024 7:36 PM POWER CLEANER OPERATOR [facility] [address] [facility] [place] [address] CLINICAL INDICATION: 79-year-old female. Cough, dyspnea. 11/30/2024 [...] Procedure Note Marjan Mclaughlin MD - 11/30/2024 [facility] [address] [place] [address] CLINICAL INDICATION: 79-year-old female. Cough, dyspnea. 11/30/2024 [...] (ABNORMAL) PRO-BRAIN NATRIURETIC PEPTIDE (11/30/2024 6:46 PM POWER CLEANER OPERATOR) PRO-B TYPE NATRIURETIC PEPTIDE 2,703(H) <450 PG/ML 11/30/2024 7:27 PM POWER CLEANER OPERATOR [facility] Comment: CUT POINTS ESTABLISHED BY [...] 72% FOR ACUTE CHF. 11/30/2024 6:46 PM POWER CLEANER OPERATOR Shira Lira MD LABORATORY Final Resu lt Performing Organization Address City/[facility]/ZIP Co de Phone Number [facility] [address] [place] [address], [place] [phone] * CORONAVIRUS (COVID-19) MOLECULAR (11/30/2024 5:35 PM POWER CLEANER OPERATOR) CORONAVIRUS SARS COV 2 RNA NEGATIVE NEGATIVE 11/30/2024 6:11 PM POWER CLEANER OPERATOR [facility] Comment: NEGATIVE RESULTS [...] SARS-COV-2. SPECIMEN TYPE NASAL 11/30/2024 5:38 PM POWER CLEANER OPERATOR [facility] NASOPHARYNGEAL SWAB / Unknown 11/30/2024 5:35 PM POWER CLEANER OPERATOR Shira Lira MD MICROBIOLOGY - GENERAL ORD ERABLES Final Result Performing Organization Address City/[facility]/ZIP Co de Phone Number [facility] [address] [place] [address], [place] [phone] * INFLUENZA A & B (11/30/2024 5:35 PM POWER CLEANER OPERATOR) SPECIMEN TYPE NASOPHARYNX 11/30/2024 5:44 PM POWER CLEANER OPERATOR [facility] INFLUENZA A NEGATIVE NEGATIVE 11/30/2024 6:01 PM POWER CLEANER OPERATOR [facility] INFLUENZA B NEGATIVE NEGATIVE 11/30/2024 6:01 PM POWER CLEANER OPERATOR [facility] NASOPHARYNGEAL SWAB / Unknown 11/30/2024 5:35 PM POWER CLEANER OPERATOR us Shira Lira MD MICROBIOLOGY - GENERAL ORD ERABLES Final Result [facility] [address] [place] [address], [place] [phone] from Last 3 Months Insurance Advance Directives * Full Code (Latest Code Status on File) Date Activated Date Inactivated Comments 01/16/2025 12:30 PM 01/18/2025 2:41 PM * Full Code Date Activated Date Inactivated Comments 11/18/2024 6:41 PM 11/21/2024 3:34 PM Care Teams Paraffin Plant Sweater Operator Relationship Specialty Start Date End Date Oh Goode MD [address] [place] [address] [place] [address] PCP - General FAMILY PRACTICE 01/26/20
--- OUTSIDE RECORDS SUMMARY | 2025-02-26 12:17 | XMS_ITS | Clinical Summary ---
Author Organization [facility] [address] Address [address] [place] [address] Care Team Providers Care Furrier Designer Name Role Phone Oh Goode MD Primary Care Provider [phone] Allergies Active Allergy Reactions Criticality Noted Date [...] Department Care Team Description 02/25/2025 Anticoagulation Visit [facility] [address] [facility] [address] [place] [address] Christina Delarosa RN 02/18/2025 Anticoagulation Visit [facility] [address] [facility] [address] [place] [address] Armando Grubbs RN 02/11/2025 Anticoagulation Visit [facility]iology [address] [facility] [address] [place] [address] Lluvia Maza RN 02/11/2025 Telephone [facility] [address] [facility] [address] [place] [phone] Swapnil Wilson MD 02/06/2025 8:15 AM CDT Office Visit [facility] Cardiology at [address] [place] [phone] Swapnil Wilson MD halfway current use of anticoagulant therapy; Orthostatic hypotension; Chronic atrial fibrillation (HCC); Dyspnea, unspecified type 02/06/2025 Anticoagulation Visit [facility] Cardiology [address] [place] [address] [address] [place] [phone] Salina Loaj RN 02/06/2025 Telephone [facility] Medical [facility] Cardiology [address] [place] [address] [address] [place] [phone] Swapnil Wilson MD from Last 3 Months [...] on file Legal Sex Female 1:20 PM MANAGEMENT MANAGER Gender Identity Not on file Sexual [...] 1.90(A) 0.90 - 1.10 EXTERNAL LAB Blood Result [facility] Historical Provider MD LAB BLOOD ORDERABLES Nellie l Result Performing Organization Address City/[facility]/ZIP Co de Phone Number EXTERNAL LAB * (ABNORMAL) Protime-INR (02/15/2025) INR 1.80(A) 0.90 - 1.10 EXTERNAL LAB Blood 02/15/2025 Result [facility] Historical Provider MD LAB BLOOD ORDERABLES Nellie l Result Performing Organization Address [facility]/ZIP Co de Phone Number EXTERNAL LAB * (ABNORMAL) Protime-INR (02/08/2025) INR 1.40(A) 0.90 - 1.10 EXTERNAL LAB Blood Result [facility] Historical Provider MD LAB BLOOD ORDERABLES Nellie l Result Performing Organization Address City/[facility] Co de Phone Number EXTERNAL LAB * ECG 12 lead (02/06/2025 9:13 AM CDT) Result [facility] Swapnil Wilson MD ECG ORDERABLES Final Re sult * (ABNORMAL) Hemoglobin A1c (07/19/2015 8:16 AM CDT) Hemoglobin A1c % 7.5(H) 4.8 - 5.9 % 07/19/2015 8:38 AM CDT [facility] HISTORICAL RESULTS Comment: [place] [employer] recommends that the goal of therapy should be an A1C hemoglobin of <7%. Reevaluate the treatment regimen in patients with an A1C >8%. 07/19/2015 8:16 AM CDT 07/19/2015 8:19 AM CDT us Max Willson THAI MASSEUR LAB BLOOD ORDERABLES Final Resu lt [facility] HISTORICAL RESULTS * (ABNORMAL) TNI with LIPID PANEL (07/18/2015 10:10 AM CDT) Troponin I < 0.300 0.000 - 0.300 ng/mL 07/18/2015 10:41 AM T [facility] HISTORICAL RESULTS Comment: Reference using YENI Chemiluminescence Negative: Repeat in 4-6 hours as indicated. Triglycerides 240(H) 0 - 199 mg/dL 07/18/2015 10:44 AM [facility] [facility] HISTORICAL RESULTS Comment:12 hr pc highly lenard mmended for Triglyceride Cholesterol 194 0 - 199 mg/dL 07/18/2015 10:44 AM [facility] HISTORICAL RESULTS Comment: Borderline: 200-239 High Risk: >239 HDL Cholesterol 47 40 - 60 mg/dL 07/18/2015 10:44 AM T [facility] HISTORICAL RESULTS Comment: Major Risk < 40 mg/dL Moderate Risk 40-60 mg/dL Negative Risk > 60 mg/dL LDL Cholesterol, Calc 99 0 - 130 mg/dL 07/18/2015 10:44 AM [facility] [employer] [facility] HISTORICAL RESULTS Comment:High Risk > 159 mg/d L Cholesterol/HDL Ratio 4.1 07/18/2015 10:44 AM [facility] HISTORICAL RESULTS Comment: Cholesterol / HDL Ratio 3.5:1 or less is desirable. Cholesterol / HDL Ratio greater than 5:1 is considered higher risk for developing heart disease. 07/18/2015 10:1 0 AM CDT 07/18/2015 10:15 AM CDT us Kole Mike MD LAB BLOOD ORDERABLES Fin al Result Performing Organization Address [facility] Co de Phone Number [facility] HISTORICAL RESULTS from Last 3 Months or Most Recently Relevant to Health Maintenance Insurance [facility] MEDICARE ADVANT[employer] [facility] MED[facility] Address: [address] [address] [place] [address] MEDICARE ADVANTAGE [facility]IC[facility] Address: [address] [address] [place] [address] Care Teams Furrier Designer Relationship Specialty Start Date End Date Oh Goode MD PCP - General 05/28/13
== END 2025-02-26 10:43 | disposition home or self-care (01) ==
PROVIDERS: PCP Family Medicine; Visit Provider Otolaryngology Otolaryngology/Facial Plastic Surgery
DX: H90.3 Sensorineural hearing loss, bilateral (principal); I25.2 Old myocardial infarction
CPT/HCPCS: 70553; A9579

== ENCOUNTER 2025-05-02 15:44 | Outpatient (RCR) | payer MEDICARE, SELFPAY ==
[2025-02-15 16:28] LABS: INR 1.8; Prothrombin Time 21.0 Seconds (11.1-14.7)
[2025-02-22 14:35] LABS: INR 1.9; Prothrombin Time 21.7 Seconds (11.1-14.7)
[2025-03-01 16:10] LABS: INR 2.3; Prothrombin Time 26.4 Seconds (11.1-14.7)
[2025-03-21 16:53] LABS: INR 2.9; Prothrombin Time 30.9 Seconds (11.1-14.7)
[2025-04-12 15:36] LABS: INR 2.5; Prothrombin Time 26.4 Seconds (11.1-14.7)
[2025-04-26 15:22] LABS: INR 4.6; Prothrombin Time 42.1 Seconds (11.1-14.7)
[2025-05-02 16:24] LABS: INR 3.0; Prothrombin Time 29.8 Seconds (11.1-14.7)
== END 2025-05-16 23:59 | disposition home or self-care (01) ==
LOC: ANHLAB 15:44
PROVIDERS: PCP Family Medicine; Visit Provider Specialist
DX: Z51.11 Encounter for antineoplastic chemotherapy (principal); I48.20 Chronic atrial fibrillation, unspecified; Z79.01 Long term (current) use of anticoagulants
CPT/HCPCS: 36415; 85610

== ENCOUNTER 2025-06-24 10:00 | Emergency (ER) | payer MEDICARE, SELFPAY ==
--- NOTE | ~2025-06-24 | CT_ITS ---
EXAMINATION: CT abdomen pelvis wo con DATE: 06/24/2025 12:54 INDICATION: Abdominal pain. UTI. TECHNIQUE: Computed tomography (CT) of the abdomen and pelvis was performed without intravenous contr ast. The dose-length product was 1359.71 mGy-cm. COMPARISON: None. FINDINGS: There are few small reticular and bandlike opacities in the lower lungs likely atelectasis or scarring. Cholelithiasis. Noncontrast images of the liver, spleen, adrenal glands and pancreas are unremarkable . Small hiatal hernia. Abdominal aorta is partially calcified but is not aneurysmal. There is a 3.2 c m cyst in the right kidney. Kidneys are moderately atrophic. There are a few too small to characteriz e renal lesions. If of concern, consider a renal mass CT. No enlarged lymph nodes in the abdomen or p marcelina. Small fat-containing left inguinal hernia. Bladder is unremarkable. No bladder calculi. Modera te amount of stool. No appendicitis. No colitis. Bones appear osteopenic. Multilevel degenerative adrian nge in the spine most prominent in the lumbar spine. Grade 1 retrolisthesis of L3 on L4. Thickening o f the al of the rectum. Differential includes incomplete rectal wall distention, proctitis or mass . There is a 4.1 cm left renal cyst. IMPRESSION: 1. No CT evidence for renal, ureteral or bladder calculi. No hydronephrosis. 2. Bilateral renal cyst. 3. Thickening of the al of the rectum. Differential includes incomplete rectal wall distention, pr octitis or mass. Correlate clinically. 4. Cholelithiasis. 5. Small fat-containing left inguinal hernia. Reviewed, dictated and finalized at location A. IMPRESSION: 1. No CT evidence for renal, ureteral or bladder calculi. No hydronephrosis. 2. Bilateral renal cyst. 3. Thickening of the al of the rectum. Differential includes incomplete rect al wall distention, proctitis or mass. Correlate clinically. 4. Cholelithiasis. 5. Small fat-containing left inguinal hernia.
[2025-06-24 10:34] VITALS: BP 171/93; PULSE 72; PULSE 77; RESP 14; TEMP 36.4; O2SAT 100
[2025-06-24 10:44] LABS: Add Urine Microscopic? YES; Appearance Urine Clear (Clear); Glucose Urine UA Trace mg/dL (Negative); Leukocyte Esterase Ur 1+ LEU/UL (Negative); Nitrate Urine Negative (Negative); Non Pathogenic Casts 0-2; Specific Grav Ur 1.018 (1.001-1.035)
[2025-06-24 10:52] LABS: Hematocrit 34.7 % (37.0-47.0); Hemoglobin 11.0 g/dL (12.0-15.0); Immature Granulocyte Percent A 0.5 % (0-0.5); Lymphocytes Absolute Auto 0.91 K/mm3 (0.9-3.2); Mean Corpuscular HGB Conc 31.7 g/dl (32-36); Mean Corpuscular Hemoglobin 33.6 pg (26-34); Mean Corpuscular Volume 106.1 fl (80-100); Nucleated Red Blood Cells Absolute Auto 0.000 K/mm3 (0.0-0.012); Nucleated Red Blood Cells Perc 0.0 % (0.0-0.2); Platelet Count Result 146 k/mm3 (150-375); Red Blood Count 3.27 M/mm3 (4.2-5.4); White Blood Count 4.1 K/mm3 (4.5-10.0)
--- OUTSIDE RECORDS SUMMARY | 2025-06-24 10:57 | XMS_ITS | Patient Health Record ---
Author Organization [facility] Address [address] [place], [place] [id number] Care Team Providers Care Power Equipment Technology Instructor Name Role Phone GIOVANY Hardin Unavailable [phone] Oh Goode Unavailable Unavailable Reason For Referral No Information Plan Of Treatment No Information Insurance Providers Payer Name Payer Address Payer Phone Subscriber Number Group Number Insured Name Patient Relationship to Insured Coverage Start Date Coverage End Date AARP MedicareC omplete ([facility]) [address] [place], [place] [id number] SEAN SALMERON Self - patient is the insured
--- OUTSIDE RECORDS SUMMARY | 2025-06-24 10:57 | XMS_ITS | Encounter Summary ---
Author Organization [facility] Healthcare Address [address] [place] [address] Care Team Providers Care Group Segment Consultant Name Role Phone Oh Goode MD Primary Care Provider [phone] Encounter Details Date Type Department Care Team (Late st Contact Info) Description 03/01/2025 Orders Only [facility] [place] Health Information Management [address] [place] [address] Scanning, Provider Social History Tobacco Use Types Packs/Day Years Used Date Smoking Tobacco: Never Smokeless Tobacco: Never Alcohol Use Standard Drinks/Week Comments Yes 0 (1 standard drink = 0.6 oz pur e alcohol) Comments Unknown Sex and Gender Information Value Date Recorded Sex Assigned at Not on file Legal Sex Female 1:20 PM 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
--- OUTSIDE RECORDS SUMMARY | 2025-06-24 10:57 | XMS_ITS | Encounter Summary ---
Author Organization [facility] Healthcare Address [address] [place] [address] Care Team Providers Care Assembly Line Driver Name Role Phone Oh Goode MD Primary Care Provider [phone] Encounter Details Date Type Department Care Team (Late st Contact Info) Description 04/26/2025 Orders Only [facility] [place] Health Information Management [address] [place] [id number] Scanning, Provider Social History Tobacco Use Types Packs/Day Years Used Date Smoking Tobacco: Never Smokeless Tobacco: Never Alcohol Use Standard Drinks/Week Comments Yes 0 (1 standard drink = 0.6 oz pur e alcohol) Comments Unknown Sex and Gender Information Value Date Recorded Sex Assigned at Not on file Legal Sex Female 1:20 PM HOSIERY REPAIRER Gender Identity Not on file Sexual Orientation Not on file documented as of this encounter Plan of Treatment Not on file documented as of this encounter Procedures Procedure Name Priority Date/Time Associated Diagnosis Comments SCAN - LABS 04/26/2025 documented in this encounter Results * SCAN - LABS (04/26/2025) us Provider Scanning Final Result documented in this encounter Visit Diagnoses Not on filedocumented in this encounter Care Teams Assembly Line Driver Relationship Specialty Start Date End Date Oh Goode MD PCP - General 05/28/13 documented as of this encounter
--- OUTSIDE RECORDS SUMMARY | 2025-06-24 10:57 | XMS_ITS | Encounter Summary ---
Author Organization [facility] Healthcare Address [address] [place] [address] Care Team Providers Care Electronic Service Technician Name Role Phone Oh Goode MD Primary Care Provider [phone] Encounter Details Date Type Department Care Team (Late st Contact Info) Description 02/15/2025 Orders Only [facility] [place] Health Information Management [address] [place] [address] Scanning, Provider Social History Tobacco Use Types Packs/Day Years Used Date Smoking Tobacco: Never Smokeless Tobacco: Never Alcohol Use Standard Drinks/Week Comments Yes 0 (1 standard drink = 0.6 oz pur e alcohol) Comments Unknown Sex and Gender Information Value Date Recorded Sex Assigned at Not on file 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
--- OUTSIDE RECORDS SUMMARY | 2025-06-24 10:57 | XMS_ITS | Encounter Summary ---
Author Organization [facility] Healthcare Address [address] [place] [address] Care Team Providers Care General Road Production Manager Name Role Phone Oh Goode MD Primary Care Provider [phone] Encounter Details Date Type Department Care Team (Late st Contact Info) Description 04/12/2025 Orders Only [facility] [place] Management [address] [place] [phone] Scanning, Provider Social History Tobacco Use Types Packs/Day Years Used Date Smoking Tobacco: Never Smokeless Tobacco: Never Alcohol Use Standard Drinks/Week Comments Yes 0 (1 standard drink = 0.6 oz pur e alcohol) Comments Unknown Sex and Gender Information Value Date Recorded Sex Assigned at Not on file 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
--- OUTSIDE RECORDS SUMMARY | 2025-06-24 10:57 | XMS_ITS | Clinical Summary ---
Author Organization [facility] [address] Address [address] [place] [address] Care Team Providers Care Supervisor Polishing Name Role Phone Oh Goode MD Primary Care Provider [phone] Allergies Active Allergy Reactions Criticality Noted Date [...] tablet (10 mg) by mouth daily Active HYDROcodone-micheal taminophen (NORCO) 10-325 mg per tabletIndicatio ns:Pain Take 1 tablet by mouth every 6 [...] week Active docusate sodium (DOK) 100 mg tabletIndicatio ns:constipation Take 1 tablet (100 mg total) by mouth 2 (two) times a day Active carvediloL (COREG) 3.125 mg tablet Take 1 tablet (3.125 mg total) by mouth 2 (two) times a day with meals Active Active Problems Problem Noted Date Diagnosed Date Chronic atrial fibrillation 02/06/2025 Primary cardiomyopathy 08/30/2014 Overview (02/10/2017): Primary cardiomyopathy Encounters Date Type Department Care Team Description 05/20/2025 Anticoagulation Visit [facility] Card[facility] [address] [address] Salina Loja RN 05/03/2025 Anticoagulation Visit [facility] [address] [place] [address] Lluvia Maza, RN 04/29/2025 Anticoagulation Visit [facility] [address] [facility] [address] [place] [address] Lluvia Maza RN 04/26/2025 Orders Only [facility] [place] Health Information Management [address] [place] [address] Scanning, Provider 04/15/2025 Anticoagulation Visit [facility] [address] [facility] [address] [place] [address] Lluvia Maaz, NETTE 04/12/2025 Orders Only [facility] [place] Health Information Management [address] [place] [address] Scanning, Provider from Last 3 Months Surgical History Surgery [...] on file 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 Gender Identity Not on file Sexual Orientation [...] 8:25 AM CDT Height 167.6 cm (5' 6) 02/06/2025 8:25 AM CDT Body Mass Index [...] 2025 08/31/2024, 04/23/2022, 08/25/2021, Additional history exists Influenza Vaccine (#1) 2025 , 09/21/2023, 08/21/2022, Additional history exists DTaP/Tdap/Td Vaccine (2 - Td or Tdap) 10/05/2026 10/05/2016 Pneumococcal vaccine 65+ Completed 024, 10/02/2019, 09/07/2019 Procedures Procedure Name Priority Date/Time Associated Diagnosis Comments PROTIME-INR Routine 05/20/2025 PROTIME-INR Routine 05/03/2025 SCAN - LABS 04/26/2025 PROTIME-INR Routine 04/26/2025 SCAN - LABS 04/12/2025 PROTIME-INR Routine 04/12/2025 HEMOGLOBIN A1C Routine 07/19/2015 8:16 AM CDT TNI WITH LIPID PANEL Routine 07/18/2015 10:10 AM CDT from Last 3 Months or Most Recently Relevant to Health Maintenance Results * (ABNORMAL) Protime-INR (05/20/2025) INR 2.20(A) 0.90 - 1.10 EXTERNAL LAB Blood Result [facility] Provider MD LAB BLOOD ORDERABLES Edit ed Result - Final Performing Organization Address [facility] de Phone Number EXTERNAL LAB * (ABNORMAL) Protime-INR (05/03/2025) INR 3.00(A) 0.90 - 1.10 EXTERNAL LAB Blood Result [facility] Provider MD LAB BLOOD ORDERABLES Edit ed Result - Final Performing Organization Address [facility] de Phone Number EXTERNAL LAB * SCAN - LABS (04/26/2025) Result [facility] Provider Scanning Final Result * (ABNORMAL) Protime-INR (04/26/2025) INR 4.60(A) 0.90 - 1.10 EXTERNAL LAB Blood Result [facility] Provider MD LAB BLOOD ORDERABLES Nellie l Result Performing Organization Address [facility] de Phone Number EXTERNAL LAB * SCAN - LABS (04/12/2025) Result [facility] Provider Scanning Final Result * (ABNORMAL) Protime-INR (04/12/2025) INR 2.50(A) 0.90 - 1.10 EXTERNAL LAB Blood Result [facility] Provider MD LAB BLOOD ORDERABLES Nellie l Result Performing Organization Address [facility]/ZIP Co de Phone Number EXTERNAL LAB * (ABNORMAL) Hemoglobin A1c (07/19/2015 8:16 AM CDT) Hemoglobin A1c % 7.5(H) 4.8 - 5.9 % Comment: [place] [employer] recommends that the goal of therapy should be an A1C hemoglobin of <7%. Reevaluate the treatment regimen in patients with an A1C >8%. 07/19/2015 8:16 AM CDT 07/19/2015 8:19 AM CDT us Max Willson PERMANENT WAVER LAB BLOOD ORDERABLES Final Resu lt [facility] HISTORICAL RESULTS * (ABNORMAL) TNI with LIPID PANEL (07/18/2015 10:10 AM CDT) Pathologist [facility] Troponin I < 0.300 0.000 - 0.300 ng/mL 07/18/2015 10:41 AM [facility] Comment: Reference using YENI Chemiluminescence Negative: Repeat in 4-6 hours as indicated. Triglycerides 240(H) 0 - 199 mg/dL 07/18/2015 10:44 AM [facility] Comment:12 hr pc highly lenard mmended for Triglyceride Cholesterol 194 0 - 199 mg/dL Comment: Borderline: 200-239 High Risk: >239 HDL Cholesterol 47 40 - 60 mg/dL 07/18/2015 10:44 AM [facility] Comment: Major Risk < 40 mg/dL Moderate Risk 40-60 mg/dL Negative Risk > 60 mg/dL LDL Cholesterol, Calc 99 0 - 130 mg/dL 07/18/2015 10:44 AM [facility] [employer] [facility] HISTORICAL RESULTS Comment:High Risk > 159 mg/d L Cholesterol/HDL Ratio 4.1 Comment: Cholesterol / HDL Ratio 3.5:1 or less is desirable. Cholesterol / HDL Ratio greater than 5:1 is considered higher risk for developing heart disease. 07/18/2015 10:1 0 AM CDT 07/18/2015 10:15 AM CDT Kole Mike MD LAB BLOOD ORDERABLES Fin al Result [employer] HISTORICAL RESULTS from Last 3 Months or Most Recently Relevant to Health Maintenance Insurance [facility] MEDICARE ADVANTAGE [facility] MEDICARE ADVANTAGE Care Teams Supervisor Polishing Relationship Specialty Start Date End Date Oh Goode MD PCP - General 05/28/13
--- OUTSIDE RECORDS SUMMARY | 2025-06-24 10:57 | XMS_ITS | Encounter Summary ---
Author Organization [facility] Healthcare Address [address] [place] [address] Care Team Providers Care Customer Sales Representative Name Role Phone Oh Goode MD Primary Care Provider [phone] Encounter Details Date Type Department Care Team (Late st Contact Info) Description 02/08/2025 Orders Only [facility] [place] Health Information Management [address] [place] [address] Scanning, Provider Social History Tobacco Use Types Packs/Day Years Used Date Smoking Tobacco: Never Smokeless Tobacco: Never Alcohol Use Standard Drinks/Week Comments Yes 0 (1 standard drink = 0.6 oz pur e alcohol) Comments Unknown Sex and Gender Information Value Date Recorded Sex Assigned at Not on file 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
--- OUTSIDE RECORDS SUMMARY | 2025-06-24 10:57 | XMS_ITS | Encounter Summary ---
Author Organization [facility] Healthcare Address [address] [place] [address] Care Team Providers Care Combination Welder Name Role Phone Oh Goode MD Primary Care Provider [phone] Encounter Details Date Type Department Care Team (Late st Contact Info) Description 03/21/2025 Orders Only [facility] [place] [facility] Health Information Management [address] [place] [address] Scanning, Provider Social History Tobacco Use Types Packs/Day Years Used Date Smoking Tobacco: Never Smokeless Tobacco: Never Alcohol Use Standard Drinks/Week Comments Yes 0 (1 standard drink = 0.6 oz pur e alcohol) Comments Unknown Sex and Gender Information Value Date Recorded Sex Assigned at Not on file 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
--- NOTE | 2025-06-24 11:12 | ED_ITS ---
HPI - Nausea/Vomiting/Diarrhea General Chief complaint: Nausea/Vomiting/Diarrhea Stated complaint: n/v Time Seen by Provider: 06/24/25 10:11 Source: patient Mode of arrival: ambulatory Limitations: no limitations History of Present Illness HPI Narrative: This is a 80 year old female that presents to the ER for nausea, vomiting, abdominal pain. Also reports dysuria. Reports feeling weak. Symptoms are worsening over the last month. Denies fevers. Related Data Home Medications ?Medication ?Instructions ?Recorded ?Confirmed ?Last Taken ?Type ergocalciferol (vitamin D2) 1,250 1,250 mcg PO WEEKLY 02/22/21 03/15/25 01/11/24 09:00 History mcg (50,000 unit) capsule allopurinol 100 mg tablet 100 mg PO DAILY 09/15/23 03/15/25 09/26/23 09:00 History atorvastatin 80 mg tablet 80 mg PO HS 09/15/23 03/15/25 09/25/23 21:00 History ezetimibe 10 mg tablet 10 mg PO DAILY 09/15/23 03/15/25 09/26/23 09:00 History hydrocodone 10 mg-acetaminophen 1 tablet PO Q8H PRN Pain (Scale 09/15/23 03/15/25 09/26/23 09:00 History 325 mg tablet Score 4-6) melatonin 5 mg tablet 5 mg PO HS 09/15/23 03/15/25 09/25/23 21:00 History acetaminophen 500 mg capsule 500 mg PO Q6H 09/26/23 03/15/25 Unknown History amiodarone 200 mg tablet 200 mg PO DAILY 01/16/24 03/15/25 Unknown History albuterol sulfate 90 mcg/actuation 1 puff inhalation Q4H PRN 11/20/24 03/15/25 Unknown History aerosol inhaler aspirin 81 mg capsule 81 mg PO DAILY 12/03/24 03/15/25 Unknown History fenofibrate 160 mg tablet 160 mg PO DAILY 12/03/24 03/15/25 Unknown History Allergies Allergy/AdvReac Type Severity Reaction Status Date / Time ceftriaxone Allergy Unknown Anaphylaxis Verified 06/24/25 10:01 clindamycin Allergy Unknown Anaphylaxis Verified 06/24/25 10:01 Penicillins Allergy Unknown Hives Verified 06/24/25 10:01 morphine AdvReac Unknown Vomiting Verified 06/24/25 10:01 nitroglycerin AdvReac Unknown Headache Verified 06/24/25 10:01 Review of Systems 2 Review of Systems: All systems reviewed & are unremarkable except as noted in HPI and below [facility] Past Medical History Medical History (Updated 06/24/25 @ 14:23 by Marce Yepez PA-C) Impacted cerumen, right ear Asymmetrical sensorineural hearing loss Sudden hearing loss Peptic ulcer Type 2 diabetes mellitus Chronic anticoagulation Cholelithiasis Paroxysmal atrial flutter Fibromyalgia Vitamin D deficiency Osteoarthritis Depression with anxiety Anemia of chronic disease Cerebrovascular accident 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 Congestive heart failure History of reduced ejection fraction with improvement in EF to 55% on most recent echo. Diastolic dysfunction also noted. Obstructive sleep apnea on CPAP Dyslipidemia Essential hypertension Hypersomnia Stage III chronic kidney disease Baseline creatinine ranges between 1.3 and 1.60. Surgical History Surgical History History of left breast biopsy Benign pathology. History of appendectomy History of cardiac catheterization (07/2013) Normal coronaries although anomalous left coronary artery arising from the right ostium was noted. History of hysterectomy (1979) Family History Family History Father Malignant neoplasm of prostate Heart disease Mother Esophageal cancer Sibling Diabetes mellitus Daughter Alcoholism Social History Social History Social History: Surrogate medical decision maker: Mikki Herrera, daughter. Code status: Full Code. Caffeine-daily Smoking status: Never smoker Second hand tobacco smoke exposure: No Alcohol intake: current Drinks per week: 1 Alcohol use details: Rare alcohol use in moderation. Substance use: never Substance use type: does not use Do You Feel Safe in your Home?: Yes Lack of Transportation: No Lack of Food: Never True Current Housing: I Have Housing Concerned About Future Housing: No Difficulty Paying Gas/Electric Bills: No Difficulty Paying for Meds: No Currently Unemployed: No Education: High School Diploma/GED Difficulty w/ Childcare or Family Care: No Additional living arrangements comments: . Lives with daughter Mikki in [place]. 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 Spiritual care concerns: No Exam 2 Narrative: GENERAL: Chronically ill-appearing, well-nourished, and in no acute distress. HEAD: Normocephalic, atraumatic. EYES: EOMI. ENT: Nares clear, no rhinorrhea or epistaxis. Mucous membranes moist. CHEST: Clear to auscultation. No respiratory distress. No wheezes rales or rhonchi HEART: Regular rate and rhythm. No murmur heard. Normal peripheral pulses. ABDOMEN: Soft, nontender, nondistended, normal active bowel sounds. EXTREMITIES: Normal range of motion. No edema. SKIN: Warm, dry, no rash. NEURO: No focal deficits. Alert and oriented x3. PSYCH: Normal mood and affect Course Course Emergency Course: patient and family updated on workup and agree with plan of care Vital Signs Vital signs: Vital Signs Temperature 97.5 F L 06/24/25 10:34 Pulse Rate 72 06/24/25 10:34 Respiratory Rate 14 06/24/25 10:34 Blood Pressure 171/93 H 06/24/25 10:34 Pulse Oximetry 100 06/24/25 10:34 Oxygen Delivery Room Air 06/24/25 10:34 Temperature 98.4 F 06/24/25 14:33 Pulse Rate 78 06/24/25 14:33 Respiratory Rate 20 06/24/25 14:33 Blood Pressure 178/96 H 06/24/25 14:33 Pulse Oximetry 100 06/24/25 14:33 Oxygen Delivery Room Air 06/24/25 10:34 MDM - Nausea/Vomiting/Diarrhea MDM Narrative Medical decision making narrative: Patient presents the emergency department for abdominal pain, nausea vomiting. Also endorsing urinary symptoms. She is afebrile nontoxic appearing. Her vitals are stable. Cbc without leukocytosis. Metabolic panel with kidney function appears around her baseline. Urine with evidence of infection. This was sent culture. CT abdomen pelvis shows thickening of the al of the rectum. patient and family updated on workup and agree with plan of care. Based on patient allergies, patient will be started on renally dosed ciprofloxacin. She is to follow up with provider. She was given warnings to return to the ER Differential Diagnosis Differential diagnosis: Likely food poisoning, drug-induced nausea and vomiting, dehydration and other (UTI, constipation, diverticulitis, rectal mass, proctitis) Lab Data Attestation: I reviewed the patient's lab results. 06/24/25 10:43 06/24/25 12:17 Labs: Lab Results 06/24/25 06/24/25 06/24/25 Range/Units 10:32 10:43 12:17 WBC 4.1 L (4.5-10.0) K/mm3 RBC 3.27 L (4.2-5.4) M/mm3 Hgb 11.0 L (12.0-15.0) g/dL Hct 34.7 L (37.0-47.0) % MCV 106.1 H (80-100) fl MCH 33.6 (26-34) pg MCHC 31.7 L (32-36) g/dl RDW 16.3 H (11.5-14.5) % Plt Count 146 L (150-375) k/mm3 MPV 10.7 H (7.4-10.4) fl Immature Gran % (Auto) 0.5 (0-0.5) % Neut % (Auto) 67.6 (45.5-73.1) % Lymph % (Auto) 22.2 (18.3-44.2) % [place] % (Auto) 6.8 (2.6-8.5) % Eos % (Auto) 2.4 (0-4.4) % Baso % (Auto) 0.5 (0.2-1.2) % Lymph # (Auto) 0.91 (0.9-3.2) K/mm3 [place] # (Auto) 0.3 (0.1-0.6) K/mm3 Eos # (Auto) 0.1 (0-0.3) K/mm3 Baso # (Auto) 0.0 (0.0-0.1) K/mm3 Abs Immat Gran (auto) 0.02 (0.00-0.031) K/mm3 Absolute Neuts (auto) 2.8 (1.3-6.7) K/mm3 Absolute Nucleated RBC 0.000 (0.0-0.012) K/mm3 Band Neutrophils % Not Reportable Nucleated RBC % 0.0 (0.0-0.2) % Platelet Estimate Slightly decreased (Adequate) Macrocytosis 1+ (NORMAL) Schistocytes None seen Sodium 136 L (137-145) mmol/L Potassium 4.4 (3.4-5.0) mmol/L Chloride 109 H (98-107) mmol/L Carbon Dioxide 21 L (22-30) mmol/L Anion Gap 6 (4-12) mmol/L BUN 33 H (7-17) mg/dL Creatinine 2.48 H (0.7-1.0) mg/dL Estim Creat Clear Calc 19 ml/min Estimated GFR 19 L (59 - ) Glucose 109 (65-110) mg/dL Calcium 9.1 (8.4-10.2) mg/dL Total Bilirubin 0.5 (0.2-1.3) mg/dL AST 33 (14-36) U/L ALT 18 (6-35) U/L Alkaline Phosphatase 53 (38-126) U/L Total Protein 6.1 L (6.3-8.2) g/dL Albumin 3.5 (3.5-5.1) g/dL Lipase 67 (23-300) U/L Urine Color Yellow (Yellow) Urine Appearance Clear (Clear) Urine pH 7.0 (5.0-9.0) Ur Specific [place] 1.018 (1.001-1.035) Urine Protein 2+ H (Negative) mg/dL Urine Glucose (UA) Trace H (Negative) mg/dL Urine Ketones Negative (Negative) mg/dL Ur Blood (Man) Negative (Negative) Urine Nitrate Negative (Negative) Urine Bilirubin Negative (Negative) Urine Urobilinogen 0.2 (<2.0) mg/dL Leukocyte Esterase Rfl 1+ H (Negative) ILIANA/UL Urine RBC 0-2 (0-2) /hpf Urine WBC 21-50 H (0-3) /hpf Ur Squamous Epith Cells None seen (Few) /hpf Urine Bacteria Rare /hpf Urine Casts 0-2 Imaging Data Radiologist's impression: ITS Impressions Abdomen/Pelvis CT 06/24/25 12:54 IMPRESSION: 1. No CT evidence for renal, ureteral or bladder calculi. No hydronephrosis. 2. Bilateral renal cyst. 3. Thickening of the al of the rectum. Differential includes incomplete rectal wall distention, proctitis or mass. Correlate clinically. 4. Cholelithiasis. 5. Small fat-containing left inguinal hernia. Critical Care Time Critical Care Time Critical Care Time: No Discharge Plan Discharge Clinical Impression: Acute UTI, Rectum inflammation Patient Disposition: Home Condition: Stable Instructions: Antibiotic Form, Urinary Tract Infection in Women (ED) Additional Instructions: Return to the ER if you experience fever, abdominal pain with nausea and vomiting, you are unable to keep down liquids or solids, or any other symptoms that are concerning to you Take oral antibiotic as prescribed Follow up with your primary care doctor The radiologist mentioned some possible inflammation around your rectum. Recommend further evaluation by gastroenterology Patient Language: Yakut Prescriptions: New ciprofloxacin HCl [Cipro] 500 mg tablet 500 mg PO DAILY 2 Days Qty: 2 0RF No Action (DME) comp.stocking,knee,long,medium Misc See Rx Instructions .Route Qty: 12 0RF Rx Instructions: As directed glucose [Dex4 Glucose] 4 gram tablet,chewable 16 g PO Q15M PRN (Reason: hypoglycemia) Qty: 60 1RF Rx Instructions: until symptoms of low blood sugar are controlled acetaminophen 500 mg Capsule 500 mg PO Q6H sennosides-docusate sodium [Senokot-S] 8.6-50 mg Tablet 1 tab-cap PO Q12H PRN (Reason: constipation) Qty: 90 1RF famotidine 20 mg Tablet 20 mg PO Q12HR Qty: 90 1RF ergocalciferol (vitamin D2) 1,250 mcg (50,000 unit) Capsule 1,250 mcg PO WEEKLY Patient Comments: takes on tuesday Rx Instructions: on ezetimibe 10 mg tablet 10 mg PO DAILY melatonin 5 mg Tablet 5 mg PO HS atorvastatin 80 mg tablet 80 mg PO HS allopurinol 100 mg tablet 100 mg PO DAILY hydrocodone-acetaminophen 10-325 mg tablet 1 tablet PO Q8H PRN (Reason: Pain (Scale Score 4-6)) amiodarone 200 mg tablet 200 mg PO DAILY albuterol sulfate 90 mcg/actuation HFA aerosol inhaler 1 puff inhalation Q4H PRN Patient Comments: another provider prescribing this. aspirin 81 mg capsule 81 mg PO DAILY fenofibrate 160 mg tablet 160 mg PO DAILY furosemide 20 mg tablet See Rx Instructions .ROUTE .COMPLEX Qty: 90 2RF Dose Instruction: TAKE 1 TABLET BY MOUTH EVERY MORNING Rx Instructions: TAKE 1 TABLET BY MOUTH EVERY MORNING warfarin 2 mg tablet See Rx Instructions .ROUTE .COMPLEX Qty: 90 2RF Dose Instruction: TAKE 1 TABLET BY MOUTH EVERY DAY Rx Instructions: TAKE 1 TABLET BY MOUTH EVERY DAY carvedilol 12.5 mg tablet See Rx Instructions .ROUTE .COMPLEX Qty: 180 2RF Dose Instruction: TAKE 1 TABLET EVERY 12 HOURS WITH FOOD Rx Instructions: TAKE 1 TABLET EVERY 12 HOURS WITH FOOD warfarin 1 mg tablet See Rx Instructions .ROUTE .COMPLEX Qty: 90 2RF Dose Instruction: TAKE 1 TABLET BY MOUTH EVERY DAY Rx Instructions: TAKE 1 TABLET BY MOUTH EVERY DAY Follow-up/Referrals: Oh Goode MD [Primary Care Provider] - Pedro Luis Little MD [Physician] -
[2025-06-24 11:14] LABS: Macrocytosis 1+ (NORMAL); Schistocytes None Seen
[2025-06-24] MEDS: ONDANSETRON INJ 4 MG/2 ML VIAL IV PUSH (11:21)
[2025-06-24] MEDS: FAMOTIDINE 20 MG/2 ML VIAL IV PUSH (11:23)
[2025-06-24 12:36] LABS: Alanine Aminotransferase 18 U/L (6-35); Albumin Level 3.5 g/dL (3.5-5.1); Alkaline Phosphatase 53 U/L (38-126); Anion Gap 6 mmol/L (4-12); Aspartate Amino Transferase 33 U/L (14-36); Bilirubin,Total 0.5 mg/dL (0.2-1.3); Blood Urea Nitrogen 33 mg/dL (7-17); Calcium 9.1 mg/dL (8.4-10.2); Carbon Dioxide 21 mmol/L (22-30); Chloride 109 mmol/L (98-107); Estimated CRCL calculation 19 ml/min; Estimated Glomerular Filt Rate 19; Glucose 109 mg/dL (65-110); Lipase 67 U/L (23-300); Potassium 4.4 mmol/L (3.4-5.0); Sodium 136 mmol/L (137-145); Total Protein 6.1 g/dL (6.3-8.2)
[2025-06-24] MEDS: CIPROFLOXACIN 500 MG TAB PO (13:26)
[2025-06-24 13:27] VITALS: BP 184/111; PULSE 73; RESP 17; O2SAT 99
[2025-06-24 13:56] VITALS: BP 186/102; PULSE 84; RESP 17; O2SAT 99
[2025-06-24 14:33] VITALS: BP 178/96; PULSE 78; RESP 20; TEMP 36.9; O2SAT 100
== END 2025-06-24 14:35 | disposition home or self-care (01) ==
PROVIDERS: Emergency Provider Physician Assistant; PCP Family Medicine
DX: N39.0 Urinary tract infection, site not specified (principal); K62.89 Other specified diseases of anus and rectum; Z79.01 Long term (current) use of anticoagulants; I48.92 Unspecified atrial flutter; M79.7 Fibromyalgia; M19.90 Unspecified osteoarthritis, unspecified site; F32.A Depression, unspecified; F41.9 Anxiety disorder, unspecified; Z86.73 Personal history of transient ischemic attack (TIA), and cerebral infarction without residual deficits; K21.9 Gastro-esophageal reflux disease without esophagitis; I13.0 Hypertensive heart and chronic kidney disease with heart failure and stage 1 through stage 4 chronic kidney disease, or unspecified chronic kidney disease; E11.22 Type 2 diabetes mellitus with diabetic chronic kidney disease; N18.30 Chronic kidney disease, stage 3 unspecified; I50.9 Heart failure, unspecified; G47.30 Sleep apnea, unspecified
CPT/HCPCS: 36415; 74176; 80053; 81001; 83690; 85025; 87086; 96374; 96375; 99284; A9270; J2405

== ENCOUNTER 2025-06-25 16:41 | Emergency (ER) | payer MEDICARE, SELFPAY ==
--- OUTSIDE RECORDS SUMMARY | 2025-06-25 16:43 | XMS_ITS | Encounter Summary ---
Author Organization [facility] Healthcare Address [address] [place] [address] Care Team Providers Care Lead Teacher Name Role Phone Oh Goode MD Primary Care Provider [phone] Encounter Details Date Type Department Care Team (Late st Contact Info) Description 04/12/2025 Orders Only [facility] Health Information Management [address] [place] [id number] Scanning, Provider Social History Tobacco Use Types Packs/Day Years Used Date Smoking Tobacco: Never Smokeless Tobacco: Never Alcohol Use Standard Drinks/Week Comments Yes 0 (1 standard drink = 0.6 oz pur e alcohol) Comments Unknown Sex and Gender Information Value Date Recorded Sex Assigned at Not on file Legal Sex Female 1:20 PM FAMILY SERVICE CASEWORKER Gender Identity Not on file Sexual Orientation [...] on filedocumented in this encounter Care Teams Lead Teacher Relationship Specialty Start Date End Date Oh Goode MD PCP - General 05/28/13 documented as of this encounter
--- OUTSIDE RECORDS SUMMARY | 2025-06-25 16:43 | XMS_ITS | Clinical Summary ---
Author Organization [facility] Address [address] [place] [address] Care Team Providers Care Electrical Instrument Repairer Name Role Phone Oh Goode MD Primary Care Provider [phone] Allergies Active Allergy Reactions Criticality Noted Date [...] vitamin D2, ergocalciferol, (VITAMIN D, ERGOCALCIFEROL, ) 46542 UNITS capsule Take 1 capsule (50,000 Units [...] total) by mouth nightly at bedtime. Active Active Problems Problem Noted Date Diagnosed Date Supratherapeutic INR 01/16/2025 Pneumonia 11/18/2024 Immunizations Immunization Administration Dates Next Due Fluzone [...] from your doctor or pharmacy? Sometimes 01/16/2025 [facility] Utilities Answer Date Recorded In [...] often do you attend chur ch or yazdanism services? More than 4 times per year 01/16/2025 Do you belong to any clubs o r organizations such as taoism groups, unions, fraternal or athletic groups, or [...] any time in the past 12 m [facility], were you homeless or living in a care home (including now)? No 01/16/2025 Comments No Sex and Gender Information Value Date Recorded Sex Assigned at Female 11/20/2024 10:33 AM FOOT TENDER Legal Sex Female 4:30 PM CDT Gender Identity Female 11/20/2024 10:33 AM FOOT TENDER Sexual Orientation Not on file Last Filed [...] A M CDT Height 167.6 cm (5' 6) 01/16/2025 3:35 PM CDT Body Mass Index [...] Td or Tdap) 10/05/2026 10/05/2016 PHQ-2 (Physician [place]) Completed 01/16/2025 Meningococcal B Vaccine Aged Out [...] discharge from hospital Lifestyle No Shama Dudley, RN Insurance Advance Directives * Full Code (Latest Code Status on File) Date Activated Date Inactivated Comments 01/16/2025 12:30 PM 01/18/2025 2:41 PM * Full Code Date Activated Date Inactivated Comments 11/18/2024 6:41 PM 11/21/2024 3:34 PM Care Teams Electrical Instrument Repairer Relationship Specialty Start Date End Date Oh Goode MD [address] [place] [address] PCP - General FAMILY PRACTICE 01/26/20
--- OUTSIDE RECORDS SUMMARY | 2025-06-25 16:43 | XMS_ITS | Encounter Summary ---
Author Organization [facility] Healthcare Address [address] [place] [address] Care Team Providers Care Rough And Truing Machine Operator Name Role Phone Oh Goode MD Primary Care Provider [phone] Encounter Details Date Type Department Care Team (Late st Contact Info) Description 02/08/2025 Orders Only [facility] Health Information Management [address] [place] [address] Scanning, Provider Social History Tobacco Use Types Packs/Day Years Used Date Smoking Tobacco: Never Smokeless Tobacco: Never Alcohol Use Standard Drinks/Week Comments Yes 0 (1 standard drink = 0.6 oz pur e alcohol) Comments Unknown Sex and Gender Information Value Date Recorded Sex Assigned at Not on file 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
--- OUTSIDE RECORDS SUMMARY | 2025-06-25 16:43 | XMS_ITS | Encounter Summary ---
Author Organization [facility] Healthcare Address [address] [place] [address] Care Team Providers Care Elevator Service Mechanic Name Role Phone Oh Goode MD Primary Care Provider [phone] Encounter Details Date Type Department Care Team (Late st Contact Info) Description 03/01/2025 Orders Only [facility] Health Information Management [address] [place] [address] Scanning, Provider Social History Tobacco Use Types Packs/Day Years Used Date Smoking Tobacco: Never Smokeless Tobacco: Never Alcohol Use Standard Drinks/Week Comments Yes 0 (1 standard drink = 0.6 oz pur e alcohol) Comments Unknown Sex and Gender Information Value Date Recorded Sex Assigned at Not on file Legal Sex Female 1:20 PM LEAD 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
--- OUTSIDE RECORDS SUMMARY | 2025-06-25 16:43 | XMS_ITS | Patient Health Record ---
Author Organization [facility] Address [address] [place], [place] [id number] Care Team Providers Care Round Cutter Operator Name Role Phone GIOVANY Hardin Unavailable [phone] Oh Goode Unavailable Unavailable Reason For Referral No Information Plan Of Treatment No Information Insurance Providers Payer Name Payer Address Payer Phone Subscriber Number Group Number Insured Name Patient Relationship to Insured Coverage Start Date Coverage End Date AARP MedicareC omplete ([facility]) [address] [place], [place] [id number] SEAN SALMERON Self - patient is the insured
--- OUTSIDE RECORDS SUMMARY | 2025-06-25 16:43 | XMS_ITS | Encounter Summary ---
Author Organization [facility] Healthcare Address [address] [place] [address] Care Team Providers Care Assistant Financial Accountant Name Role Phone Oh Goode MD Primary Care Provider [phone] Encounter Details Date Type Department Care Team (Late st Contact Info) Description 02/15/2025 Orders Only [facility] Health Information Management [address] [place] [address] Scanning, Provider Social History Tobacco Use Types Packs/Day Years Used Date Smoking Tobacco: Never Smokeless Tobacco: Never Alcohol Use Standard Drinks/Week Comments Yes 0 (1 standard drink = 0.6 oz pur e alcohol) Comments Unknown Sex and Gender Information Value Date Recorded Sex Assigned at Not on file 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
--- OUTSIDE RECORDS SUMMARY | 2025-06-25 16:43 | XMS_ITS | Clinical Summary ---
Author Organization [facility] [address] Address [address] [place] [address] Care Team Providers Care Demurrage Agent Name Role Phone Oh Goode MD Primary Care Provider +1- [phone] Allergies Active Allergy Reactions Criticality Noted Date [...] Department Care Team Description 05/20/2025 Anticoagulation Visit [facility] Cardiology [address] [address] Salina Loja RN 05/03/2025 Anticoagulation Visit [facility] [address] [place] [address] Lluvia Maza, RN 04/29/2025 Anticoagulation Visit [facility]iology [address] [facility] [address] [place] [address] Lluvia Maza RN 04/26/2025 Orders Only [facility] Health Information Management [address] [place] [address] Scanning, Provider 04/15/2025 Anticoagulation Visit [facility] Cardiology [address] [facility] [address] [place] [address] Lluvia Maza, NETTE 04/12/2025 Orders Only [facility] Health Information Management [address] [place] [address] Scanning, Provider from Last 3 Months Surgical [...] on file Legal Sex Female 1:20 PM CLINICAL TECHNICIAN Gender Identity Not on file Sexual Orientation [...] 0.90 - 1.10 EXTERNAL LAB Blood Result [facility] Provider MD LAB BLOOD ORDERABLES Edit ed Result - Final Performing Organization Address [facility] de Phone Number EXTERNAL LAB * (ABNORMAL) Protime-INR (05/03/2025) INR 3.00(A) 0.90 - 1.10 EXTERNAL LAB Blood Result [facility] Provider MD LAB BLOOD ORDERABLES Edit ed Result - Final Performing Organization Address [facility] de Phone Number EXTERNAL LAB * SCAN - LABS (04/26/2025) Result [facility] Provider Scanning Final Result * (ABNORMAL) Protime-INR (04/26/2025) INR 4.60(A) 0.90 - 1.10 EXTERNAL LAB Blood Result [facility] Provider MD LAB BLOOD ORDERABLES Nellie l Result Performing Organization Address [facility] de Phone Number EXTERNAL LAB * SCAN - LABS (04/12/2025) Result [facility] Provider Scanning Final Result * (ABNORMAL) Protime-INR (04/12/2025) INR 2.50(A) 0.90 - 1.10 EXTERNAL LAB Blood Result [facility] Provider MD LAB BLOOD ORDERABLES Nellie l Result Performing Organization Address [facility]/ZIP Co de Phone Number EXTERNAL LAB * (ABNORMAL) Hemoglobin A1c (07/19/2015 8:16 AM CDT) Hemoglobin A1c % 7.5(H) 4.8 - 5.9 % Comment: [place] [employer] recommends that the goal of therapy should be an A1C hemoglobin of <7%. Reevaluate the treatment regimen in patients with an A1C >8%. 07/19/2015 8:16 AM CDT 07/19/2015 8:19 AM CDT us Max Willson MANAGER LAN LAB BLOOD ORDERABLES Final Resu lt [facility] HISTORICAL RESULTS * (ABNORMAL) TNI with LIPID PANEL (07/18/2015 10:10 AM CDT) Pathologist [facility] Troponin I < 0.300 0.000 - 0.300 ng/mL 07/18/2015 10:41 AM [facility] HISTORICAL RESULTS Comment: Reference using YENI Chemiluminescence Negative: Repeat in 4-6 hours as indicated. Triglycerides 240(H) 0 - 199 mg/dL 07/18/2015 10:44 AM [facility] HISTORICAL RESULTS Comment:12 hr pc highly lenard mmended for Triglyceride Cholesterol 194 0 - 199 mg/dL Comment: Borderline: 200-239 High Risk: >239 HDL Cholesterol 47 40 - 60 mg/dL 07/18/2015 10:44 AM [facility] HISTORICAL RESULTS Comment: Major Risk < 40 mg/dL Moderate Risk 40-60 mg/dL Negative Risk > 60 mg/dL LDL Cholesterol, Calc 99 0 - 130 mg/dL 07/18/2015 10:44 AM [facility] [employer] HISTORICAL RESULTS Comment:High Risk > 159 mg/d L Cholesterol/HDL Ratio 4.1 Comment: Cholesterol / HDL Ratio 3.5:1 or less is desirable. Cholesterol / HDL Ratio greater than 5:1 is considered higher risk for developing heart disease. 07/18/2015 10:1 0 AM CDT 07/18/2015 10:15 AM CDT Kole Mike MD LAB BLOOD ORDERABLES Fin al Result [employer] HISTORICAL RESULTS from Last 3 Months or Most Recently Relevant to Health Maintenance Insurance [facility] MEDICARE ADVANTAGE [facility]IC[facility] Address: [address] [address] [facility] MEDICARE ADVANTAGE [facility]IC[facility] Address: [address] [address] [place] [address] Care Teams Demurrage Agent Relationship Specialty Start Date End Date Oh Goode MD PCP - General 05/28/13
--- OUTSIDE RECORDS SUMMARY | 2025-06-25 16:43 | XMS_ITS | Encounter Summary ---
Author Organization [facility] Address [address] [place] [address] Care Team Providers Care Alliance Director Name Role Phone Oh Goode MD Primary Care Provider +1 [phone] Encounter Details Date Type Department Care Team (Late st Contact Info) Description 03/21/2025 Orders Only [facility] Health Information Management [address] [place] [phone] Scanning, Provider Social History Tobacco Use Types Packs/Day Years Used Date Smoking Tobacco: Never Smokeless Tobacco: Never Alcohol Use Standard Drinks/Week Comments Yes 0 (1 standard drink = 0.6 oz pur e alcohol) Comments Unknown Sex and Gender Information Value Date Recorded Sex Assigned at Not on file Legal Sex Female 1:20 PM FISH BUTCHER Gender Identity Not on file Sexual Orientation [...] on filedocumented in this encounter Care Teams Alliance Director Relationship Specialty Start Date End Date Oh Goode MD PCP - General 05/28/13 documented as of this encounter
--- OUTSIDE RECORDS SUMMARY | 2025-06-25 16:43 | XMS_ITS | Encounter Summary ---
Author Organization [facility] Healthcare Address [address] [place] [address] Care Team Providers Care Import/Export Administrator Name Role Phone Oh Goode MD Primary Care Provider +1 [phone] Encounter Details Date Type Department Care Team (Late st Contact Info) Description 04/26/2025 Orders Only [facility] Health Information Management [address] [place] [address] Scanning, Provider Social History Tobacco Use Types Packs/Day Years Used Date Smoking Tobacco: Never Smokeless Tobacco: Never Alcohol Use Standard Drinks/Week Comments Yes 0 (1 standard drink = 0.6 oz pur e alcohol) Comments Unknown Sex and Gender Information Value Date Recorded Sex Assigned at Not on file Legal Sex Female 1:20 PM BATTER OUT Gender Identity Not on file Sexual Orientation [...] on filedocumented in this encounter Care Teams Import/Export Administrator Relationship Specialty Start Date End Date Oh Goode MD PCP - General 05/28/13 documented as of this encounter
[2025-06-25 16:55] VITALS: BP 155/89; PULSE 83; RESP 16; TEMP 36.4; O2SAT 98
--- NOTE | 2025-06-25 17:33 | PC.NURSE ---
Family member came to intake desk, states pt is going to another hospital.
--- OUTSIDE RECORDS SUMMARY | 2025-06-25 17:46 | XMS_ITS | Clinical Summary ---
Author Organization [facility] [address] Address [address] [place] [address] Care Team Providers Care Butcher Supervisor Name Role Phone Oh Goode MD Primary Care Provider +1- [phone] Allergies Active Allergy Reactions Criticality Noted Date [...] Department Care Team Description 05/20/2025 Anticoagulation Visit [facility] Cardiology [address] [address] Salina Loja RN 05/03/2025 Anticoagulation Visit [facility] Cardiology [address] [place] [address] Lluvia Maza, RN 04/29/2025 Anticoagulation Visit [facility] Cardiology [address] [facility] [address] [place] [address] Lluvia Maza RN 04/26/2025 Orders Only [facility] Health Information Management [address] [place] [address] Scanning, Provider 04/15/2025 Anticoagulation Visit [facility] Cardiology [address] [facility] [address] [place] [address] Lluvia Maza, NETTE 04/12/2025 Orders Only [facility] Health Information Management [address] [place] [address] Scanning, Provider from Last 3 Months Surgical [...] on file 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 Female 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 PM 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 Gender Identity Not on file Sexual [...] 0.90 - 1.10 EXTERNAL LAB Blood Result [facility] Provider MD LAB BLOOD ORDERABLES Edit ed Result - Final Performing Organization Address [facility] de Phone Number EXTERNAL LAB * (ABNORMAL) Protime-INR (05/03/2025) INR 3.00(A) 0.90 - 1.10 EXTERNAL LAB Blood Result [facility] Provider MD LAB BLOOD ORDERABLES Edit ed Result - Final Performing Organization Address [facility] de Phone Number EXTERNAL LAB * SCAN - LABS (04/26/2025) Result [facility] Provider Scanning Final Result * (ABNORMAL) Protime-INR (04/26/2025) INR 4.60(A) 0.90 - 1.10 EXTERNAL LAB Blood Result [facility] Provider MD LAB BLOOD ORDERABLES Nellie l Result Performing Organization Address [facility] de Phone Number EXTERNAL LAB * SCAN - LABS (04/12/2025) Result [facility] Provider Scanning Final Result * (ABNORMAL) Protime-INR (04/12/2025) INR 2.50(A) 0.90 - 1.10 EXTERNAL LAB Blood Result [facility] Provider MD LAB BLOOD ORDERABLES Nellie l Result Performing Organization Address [facility]/ZIP Co de Phone Number EXTERNAL LAB * (ABNORMAL) Hemoglobin A1c (07/19/2015 8:16 AM CDT) Hemoglobin A1c % 7.5(H) 4.8 - 5.9 % Comment: [place] [employer] recommends that the goal of therapy should be an A1C hemoglobin of <7%. Reevaluate the treatment regimen in patients with an A1C >8%. 07/19/2015 8:16 AM CDT 07/19/2015 8:19 AM CDT us Max Willson SCHOOL BUS INSPECTOR LAB BLOOD ORDERABLES Final Resu lt [facility] HISTORICAL RESULTS * (ABNORMAL) TNI with LIPID PANEL (07/18/2015 10:10 AM CDT) Pathologist [facility] Troponin I < 0.300 0.000 - 0.300 ng/mL 07/18/2015 10:41 AM [facility] HISTORICAL RESULTS Comment: Reference using YENI Chemiluminescence Negative: Repeat in 4-6 hours as indicated. Triglycerides 240(H) 0 - 199 mg/dL 07/18/2015 10:44 AM [facility] HISTORICAL RESULTS Comment:12 hr pc highly lenard mmended for Triglyceride Cholesterol 194 0 - 199 mg/dL Comment: Borderline: 200-239 High Risk: >239 HDL Cholesterol 47 40 - 60 mg/dL 07/18/2015 10:44 AM [facility] HISTORICAL RESULTS Comment: Major Risk < 40 mg/dL Moderate Risk 40-60 mg/dL Negative Risk > 60 mg/dL LDL Cholesterol, Calc 99 0 - 130 mg/dL 07/18/2015 10:44 AM [facility] [employer] [facility] HISTORICAL RESULTS Comment:High Risk > 159 mg/d L Cholesterol/HDL Ratio 4.1 Comment: Cholesterol / HDL Ratio 3.5:1 or less is desirable. Cholesterol / HDL Ratio greater than 5:1 is considered higher risk for developing heart disease. 07/18/2015 10:1 0 AM CDT 07/18/2015 10:15 AM CDT Kole Mike MD LAB BLOOD ORDERABLES Fin al Result [employer] HISTORICAL RESULTS from Last 3 Months or Most Recently Relevant to Health Maintenance Insurance [facility] MEDICARE ADVANTAGE [facility] MEDICARE ADVANTAGE Care Teams Butcher Supervisor Relationship Specialty Start Date End Date Oh Goode MD PCP - General 05/28/13
--- OUTSIDE RECORDS SUMMARY | 2025-06-25 17:46 | XMS_ITS | Encounter Summary ---
Author Organization [facility] Healthcare Address [address] [place] [address] Care Team Providers Care Branch Manager Name Role Phone Oh Goode MD Primary Care Provider +1 [phone] Encounter Details Date Type Department Care Team (Late st Contact Info) Description 04/26/2025 Orders Only [facility] Health Information Management [address] [place] [address] Scanning, Provider Social History Tobacco Use Types Packs/Day Years Used Date Smoking Tobacco: Never Smokeless Tobacco: Never Alcohol Use Standard Drinks/Week Comments Yes 0 (1 standard drink = 0.6 oz pur e alcohol) Comments Unknown Sex and Gender Information Value Date Recorded Sex Assigned at Not on file 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
--- OUTSIDE RECORDS SUMMARY | 2025-06-25 17:46 | XMS_ITS | Encounter Summary ---
Author Organization [facility] Healthcare Address [address] [place] [address] Care Team Providers Care Hvac Project Engineer Name Role Phone Oh Goode MD Primary Care Provider [phone] [phone] Encounter Details Date Type Department Care Team (Late st Contact Info) Description 04/12/2025 Orders Only [facility] Health Information Management [address] [place] [address] Scanning, Provider Social History Tobacco Use Types Packs/Day Years Used Date Smoking Tobacco: Never Smokeless Tobacco: Never Alcohol Use Standard Drinks/Week Comments Yes 0 (1 standard drink = 0.6 oz pur e alcohol) Comments Unknown Sex and Gender Information Value Date Recorded Sex Assigned at Not on file Legal Sex Female 1:20 PM RUBBER TUBING SPLICER Gender Identity Not on file Sexual Orientation [...] on filedocumented in this encounter Care Teams Hvac Project Engineer Relationship Specialty Start Date End Date Oh Goode MD PCP - General 05/28/13 documented as of this encounter
--- OUTSIDE RECORDS SUMMARY | 2025-06-25 17:46 | XMS_ITS | Encounter Summary ---
Author Organization [facility] Healthcare Address [address] [place] [address] Care Team Providers Care Counselor Nurses' Association Name Role Phone Oh Goode MD Primary Care Provider +1 [phone] Encounter Details Date Type Department Care Team (Late st Contact Info) Description 03/01/2025 Orders Only [facility] Health Information Management [address] [place] [address] Scanning, Provider Social History Tobacco Use Types Packs/Day Years Used Date Smoking Tobacco: Never Smokeless Tobacco: Never Alcohol Use Standard Drinks/Week Comments Yes 0 (1 standard drink = 0.6 oz pur e alcohol) Comments Unknown Sex and Gender Information Value Date Recorded Sex Assigned at Not on file 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
--- OUTSIDE RECORDS SUMMARY | 2025-06-25 17:46 | XMS_ITS | Encounter Summary ---
Author Organization [facility] Healthcare Address [address] [place] [address] Care Team Providers Care Boat Patcher Plastic Name Role Phone Oh Goode MD Primary Care Provider +1 [phone] Encounter Details Date Type Department Care Team (Late st Contact Info) Description 02/15/2025 Orders Only [facility] Health Information Management [address] [place] [address] Scanning, Provider Social History Tobacco Use Types Packs/Day Years Used Date Smoking Tobacco: Never Smokeless Tobacco: Never Alcohol Use Standard Drinks/Week Comments Yes 0 (1 standard drink = 0.6 oz pur e alcohol) Comments Unknown Sex and Gender Information Value Date Recorded Sex Assigned at Not on file 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
--- OUTSIDE RECORDS SUMMARY | 2025-06-25 17:46 | XMS_ITS | Encounter Summary ---
Author Organization [facility] Healthcare Address [address] [place] [address] Care Team Providers Care Paleology Professor Name Role Phone Oh Goode MD Primary Care Provider +1 [phone] Encounter Details Date Type Department Care Team (Late st Contact Info) Description 03/21/2025 Orders Only [facility] Health Information Management [address] [place] [address] Scanning, Provider Social History Tobacco Use Types Packs/Day Years Used Date Smoking Tobacco: Never Smokeless Tobacco: Never Alcohol Use Standard Drinks/Week Comments Yes 0 (1 standard drink = 0.6 oz pur e alcohol) Comments Unknown Sex and Gender Information Value Date Recorded Sex Assigned at Not on file Legal Sex Female 1:20 PM PATIENT PARTNER Gender Identity Not on file Sexual Orientation [...] on filedocumented in this encounter Care Teams Paleology Professor Relationship Specialty Start Date End Date Oh Goode MD PCP - General 05/28/13 documented as of this encounter
--- OUTSIDE RECORDS SUMMARY | 2025-06-25 17:46 | XMS_ITS | Encounter Summary ---
Author Organization [facility] Healthcare Address [address] [place] [address] Care Team Providers Care Director Of Casework Department Name Role Phone Oh Goode MD Primary Care Provider +1 [phone] Encounter Details Date Type Department Care Team (Late st Contact Info) Description 02/08/2025 Orders Only [facility] Health Information Management [address] [place] [address] Scanning, Provider Social History Tobacco Use Types Packs/Day Years Used Date Smoking Tobacco: Never Smokeless Tobacco: Never Alcohol Use Standard Drinks/Week Comments Yes 0 (1 standard drink = 0.6 oz pur e alcohol) Comments Unknown Sex and Gender Information Value Date Recorded Sex Assigned at Not on file 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
== END 2025-06-25 17:33 | disposition left against medical advice (07) ==
LOC: ANHED 17:44
PROVIDERS: PCP Family Medicine
DX: R11.0 Nausea (principal)
CPT/HCPCS: 99199

== ENCOUNTER 2025-07-03 14:19 | Outpatient (RCR) | payer MEDICARE, SELFPAY ==
[2025-05-17 16:58] LABS: INR 2.2; Prothrombin Time 23.7 Seconds (11.1-14.7)
[2025-07-03 14:46] LABS: INR 2.7; Prothrombin Time 27.7 Seconds (11.1-14.7)
== END 2025-08-15 23:59 | disposition home or self-care (01) ==
LOC: ANHLAB 14:19
PROVIDERS: PCP Family Medicine; Visit Provider Specialist
DX: Z51.81 Encounter for therapeutic drug level monitoring (principal); I48.20 Chronic atrial fibrillation, unspecified; Z79.01 Long term (current) use of anticoagulants
CPT/HCPCS: 36415; 85610

== ENCOUNTER 2025-07-05 13:24 | Outpatient (CLI) | payer MEDICARE, SELFPAY ==
--- OUTSIDE RECORDS SUMMARY | 2025-07-05 13:26 | XMS_ITS | Encounter Summary ---
Author Organization [facility] Healthcare Address [address] [place] [address] Care Team Providers Care Grocery Clerk Stocking Name Role Phone Oh Goode MD Primary Care Provider +1 [phone] Encounter Details Date Type Department Care Team (Late st Contact Info) Description 04/26/2025 Orders Only [facility] Health Information Management [address] [place] [address] Scanning, Provider Social History Tobacco Use Types Packs/Day Years Used Date Smoking Tobacco: Never Smokeless Tobacco: Never Alcohol Use Standard Drinks/Week Comments Yes 0 (1 standard drink = 0.6 oz pur e alcohol) Comments Unknown Sex and Gender Information Value Date Recorded Sex Assigned at Not on file 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
--- OUTSIDE RECORDS SUMMARY | 2025-07-05 13:26 | XMS_ITS | Encounter Summary ---
Author Organization [facility] Healthcare Address [address] [place] [address] Care Team Providers Care Political Science Faculty Member Name Role Phone Oh Goode MD Primary Care Provider +1 [phone] Encounter Details Date Type Department Care Team (Late st Contact Info) Description 04/12/2025 Orders Only [facility] Health Information Management [address] [place] [address] Scanning, Provider Social History Tobacco Use Types Packs/Day Years Used Date Smoking Tobacco: Never Smokeless Tobacco: Never Alcohol Use Standard Drinks/Week Comments Yes 0 (1 standard drink = 0.6 oz pur e alcohol) Comments Unknown Sex and Gender Information Value Date Recorded Sex Assigned at Not on file 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
--- OUTSIDE RECORDS SUMMARY | 2025-07-05 13:27 | XMS_ITS | Encounter Summary ---
Author Organization [facility] Healthcare Address [address] [place] [address] Care Team Providers Care Self Contained Behavior Unit Teacher Name Role Phone Oh Goode MD Primary Care Provider +1 [phone] Encounter Details Date Type Department Care Team (Late st Contact Info) Description 03/01/2025 Orders Only [facility] Health Information Management [address] [place] [address] Scanning, Provider Social History Tobacco Use Types Packs/Day Years Used Date Smoking Tobacco: Never Smokeless Tobacco: Never Alcohol Use Standard Drinks/Week Comments Yes 0 (1 standard drink = 0.6 oz pur e alcohol) Comments Unknown Sex and Gender Information Value Date Recorded Sex Assigned at Not on file 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
--- OUTSIDE RECORDS SUMMARY | 2025-07-05 13:27 | XMS_ITS | Clinical Summary ---
Author Organization [facility] [address] Address [address] [place] [address] Care Team Providers Care Farrowing Worker Name Role Phone Oh Goode MD Primary Care Provider [phone] Allergies Active Allergy Reactions Criticality Noted Date [...] Encounters Date Type Department Care Team Description 07/04/2025 Anticoagulation Visit [facility] Cardiology [address] [address] Salina Loja RN 05/20/2025 Anticoagulation Visit [facility] Cardiology [address] [place] [address] Salina Loja RN 05/03/2025 Anticoagulation Visit [facility] Cardiology [address] [place] [address] Lluvia Maza RN 04/29/2025 Anticoagulation Visit [facility] Cardiology [address] [place] [address] Lluvia Maza RN 04/26/2025 Orders Only [facility] Health Information Management [address] [place] [address] Scanning, Provider 04/15/2025 Anticoagulation Visit 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 Gender Identity Not on file Sexual Orientation [...] Priority Date/Time Associated Diagnosis Comments PROTIME-INR Routine 07/03/2025 PROTIME-INR Routine 05/20/2025 PROTIME-INR Routine 05/03/2025 SCAN - LABS 04/26/2025 PROTIME-INR Routine 04/26/2025 SCAN - LABS 04/12/2025 PROTIME-INR Routine 04/12/2025 HEMOGLOBIN A1C Routine 07/19/2015 8:16 AM CDT TNI WITH LIPID PANEL Routine 07/18/2015 10:10 AM CDT from Last 3 Months or Most Recently Relevant to Health Maintenance Results * (ABNORMAL) Protime-INR (07/03/2025) INR 2.70(A) 0.90 - 1.10 EXTERNAL LAB Blood Result [facility] Provider MD LAB BLOOD ORDERABLES Nellie l Result Performing Organization Address [facility] Co de Phone Number EXTERNAL LAB * (ABNORMAL) Protime-INR (05/20/2025) INR 2.20(A) 0.90 - 1.10 EXTERNAL LAB Blood Result [facility] Historical Provider MD LAB BLOOD ORDERABLES Edit ed Result - Final Performing Organization Address [facility] Co de Phone Number EXTERNAL LAB * (ABNORMAL) Protime-INR (05/03/2025) INR 3.00(A) 0.90 - 1.10 EXTERNAL LAB Blood Result [facility] Historical Provider MD LAB BLOOD ORDERABLES Edit ed Result - Final Performing Organization Address City/[facility]/ZIP Co de Phone Number EXTERNAL LAB * SCAN - LABS (04/26/2025) Provider Scanning Final Result * (ABNORMAL) Protime-INR (04/26/2025) INR 4.60(A) 0.90 - 1.10 EXTERNAL LAB Blood Historical Provider MD LAB BLOOD ORDERABLES Nellie l Result EXTERNAL LAB * SCAN - LABS (04/12/2025) Provider Scanning Final Result * (ABNORMAL) Protime-INR (04/12/2025) Pathologist [facility] INR 2.50(A) 0.90 - 1.10 EXTERNAL LAB Blood Historical Provider MD LAB BLOOD ORDERABLES Nellie l Result Performing Organization Address [facility]/ZIP Co de Phone Number EXTERNAL LAB * (ABNORMAL) Hemoglobin A1c (07/19/2015 8:16 AM CDT) Hemoglobin A1c % 7.5(H) 4.8 - 5.9 % Comment: [place] [employer] recommends that the goal of therapy should be an A1C hemoglobin of <7%. Reevaluate the treatment regimen in patients with an A1C >8%. 07/19/2015 8:16 AM CDT 07/19/2015 8:19 AM CDT Max Willson TOWEL STRETCHER LAB BLOOD ORDERABLES Final Resu lt Performing Organization Address [facility]/ZIP Co de Phone Number [facility] HISTORICAL RESULTS * (ABNORMAL) TNI with LIPID PANEL (07/18/2015 10:10 AM CDT) Pathologist [facility] Troponin I < 0.300 0.000 - 0.300 ng/mL Comment: Reference using YENI Chemiluminescence Negative: Repeat in 4-6 hours as indicated. Triglycerides 240(H) 0 - 199 mg/dL Comment:12 hr pc highly lenard mmended for Triglyceride Cholesterol 194 0 - 199 mg/dL Comment: Borderline: 200-239 High Risk: >239 HDL Cholesterol 47 40 - 60 mg/dL Comment: Major Risk < 40 mg/dL Moderate Risk 40-60 mg/dL Negative Risk > 60 mg/dL LDL Cholesterol, Calc 99 0 - 130 mg/dL Comment:High Risk > 159 mg/d L Cholesterol/HDL Ratio 4.1 Comment: Cholesterol / HDL Ratio 3.5:1 or less is desirable. Cholesterol / HDL Ratio greater than 5:1 is considered higher risk for developing heart disease. 07/18/2015 10:1 0 AM CDT 07/18/2015 10:15 AM CDT Kole Mike MD LAB BLOOD ORDERABLES Fin al Result Performing Organization Address City/State/[facility] Co de Phone Number [facility] HISTORICAL RESULTS from Last 3 Months or Most Recently Relevant to Health Maintenance Insurance MEDICARE ADVANTAGE C MEDICARE ADVANTAGE Care Teams Farrowing Worker Relationship Specialty Start Date End Date Oh Goode MD PCP - General 05/28/13
--- OUTSIDE RECORDS SUMMARY | 2025-07-05 13:27 | XMS_ITS | Patient Health Record ---
Author Organization [facility] Address [address] [place], [place] [id number] Care Team Providers Care Events Traffic Controller Name Role Phone GIOVANY Hardin Unavailable [phone] Oh Goode Unavailable Unavailable Reason For Referral No Information Plan Of Treatment No Information Insurance Providers Payer Name Payer Address Payer Phone Subscriber Number Group Number Insured Name Patient Relationship to Insured Coverage Start Date Coverage End Date AARP MedicareC omplete ([facility]) [address] [place], [place] [id number] SEAN SALMERON Self - patient is the insured
--- OUTSIDE RECORDS SUMMARY | 2025-07-05 13:27 | XMS_ITS | Encounter Summary ---
Author Organization [facility] Healthcare Address [address] [place] [address] Care Team Providers Care Weathercaster Name Role Phone Oh Goode MD Primary Care Provider [phone] Encounter Details Date Type Department Care Team (Late st Contact Info) Description 02/15/2025 Orders Only [facility] Health Information Management [address] [place] [address] Scanning, Provider Social History Tobacco Use Types Packs/Day Years Used Date Smoking Tobacco: Never Smokeless Tobacco: Never Alcohol Use Standard Drinks/Week Comments Yes 0 (1 standard drink = 0.6 oz pur e alcohol) Comments Unknown Sex and Gender Information Value Date Recorded Sex Assigned at Not on file Legal Sex Female 1:20 PM TUB PULLER Gender Identity Not on file Sexual Orientation [...] on filedocumented in this encounter Care Teams Weathercaster Relationship Specialty Start Date End Date Oh Goode MD PCP - General 05/28/13 documented as of this encounter
--- OUTSIDE RECORDS SUMMARY | 2025-07-05 13:27 | XMS_ITS | Encounter Summary ---
Author Organization [facility] Healthcare Address [address] [place] [address] Care Team Providers Care Scale Agent Name Role Phone Oh Goode MD Primary Care Provider [phone] Encounter Details Date Type Department Care Team (Late st Contact Info) Description 03/21/[address] 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
--- OUTSIDE RECORDS SUMMARY | 2025-07-05 13:27 | XMS_ITS | Encounter Summary ---
Author Organization [facility] Healthcare Address [address] [place] [address] Care Team Providers Care Em Physician Name Role Phone Oh Goode MD Primary Care Provider [phone] Encounter Details Date Type Department Care Team (Late st Contact Info) Description 07/04/2025 Anticoagulation Visit [facility] Cardiology [address] [place] [phone] Salina Loja RN Social History Tobacco Use Types Packs/Day Years Used Date Smoking Tobacco: Never Smokeless Tobacco: Never Alcohol Use Standard Drinks/Week Comments Yes 0 (1 standard drink = 0.6 oz pur e alcohol) Comments Unknown Sex and Gender Information Value Date Recorded Sex Assigned at Not on file 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 Gender Identity Not on file Sexual Orientation Not on file documented as of this encounter Plan of Treatment Not on file documented as of this encounter Procedures Procedure Name Priority Date/Time Associated Diagnosis Comments PROTIME-INR Routine 07/03/2025 documented in this encounter Results * (ABNORMAL) Protime-INR (07/03/2025) INR 2.70(A) 0.90 - 1.10 EXTERNAL LAB Blood us Historical Provider LAB BLOOD ORDERABLES Nellie l Result EXTERNAL LAB documented in this encounter Visit Diagnoses Not on filedocumented in this encounter Care Teams Em Physician Relationship Specialty Start Date End Date Oh Goode MD PCP - General 05/28/13 documented as of this encounter
--- OUTSIDE RECORDS SUMMARY | 2025-07-05 13:27 | XMS_ITS | Encounter Summary ---
Author Organization [facility] Healthcare Address [address] [place] [address] Care Team Providers Care Email Campaign Specialist Name Role Phone Oh Goode MD Primary Care Provider [phone] Encounter Details Date Type Department Care Team (Late st Contact Info) Description 02/08/2025 Orders Only [facility] Information Management [address] [place] [address] Scanning, Provider Social History Tobacco Use Types Packs/Day Years Used Date Smoking Tobacco: Never Smokeless Tobacco: Never Alcohol Use Standard Drinks/Week Comments Yes 0 (1 standard drink = 0.6 oz pur e alcohol) Comments Unknown Sex and Gender Information Value Date Recorded Sex Assigned at Not on file 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
[2025-07-05 14:18] LABS: Total Volume 24 Hour Urine 700 ml
[2025-07-05 14:27] LABS: Creatinine 24 Hour Urine 0.3 gm/24 (0.8-1.8)
== END 2025-07-05 13:25 | disposition home or self-care (01) ==
PROVIDERS: PCP Family Medicine; Visit Provider Internal Medicine Nephrology
DX: N18.4 Chronic kidney disease, stage 4 (severe) (principal)
CPT/HCPCS: 81050; 82570

== ENCOUNTER 2025-07-18 11:23 | Outpatient (CLI) | payer MEDICARE, SELFPAY ==
[2025-07-18 11:53] LABS: Hematocrit 27.7 % (37.0-47.0); Hemoglobin 8.5 g/dL (12.0-15.0); Immature Platelet Fraction Pct 3.1 % (0.9-11.2); Mean Corpuscular HGB Conc 30.7 g/dl (32-36); Mean Corpuscular Hemoglobin 34.4 pg (26-34); Mean Corpuscular Volume 112.1 fl (80-100); Platelet Count Result 98 k/mm3 (150-375); Red Blood Count 2.47 M/mm3 (4.2-5.4); White Blood Count 4.1 K/mm3 (4.5-10.0)
[2025-07-18 12:09] LABS: Anion Gap 3 mmol/L (4-12); Blood Urea Nitrogen 30 mg/dL (7-17); Calcium 8.1 mg/dL (8.4-10.2); Carbon Dioxide 24 mmol/L (22-30); Chloride 112 mmol/L (98-107); Estimated Glomerular Filt Rate 21; Glucose 111 mg/dL (65-110); Potassium 5.4 mmol/L (3.4-5.0); Sodium 139 mmol/L (137-145)
--- OUTSIDE RECORDS SUMMARY | 2025-07-18 13:36 | XMS_ITS | Encounter Summary ---
Author Organization [facility] Healthcare Address [address] [place] [address] Care Team Providers Care Addiction Therapist Name Role Phone Oh Goode MD Primary Care Provider [phone] Bernie Rollins RN Unavailable [phone] Encounter Details Date Type Department Care Team (Late st Contact Info) Description 04/26/2025 Orders Only [facility] Health Information Management [address] [place] [address] Scanning, Provider Social History Tobacco Use Types Packs/Day Years Used Date Smoking Tobacco: Never Smokeless Tobacco: Never Alcohol Use Standard Drinks/Week Comments Yes 0 (1 standard drink = 0.6 oz pur e alcohol) Comments Unknown Sex and Gender Information Value Date Recorded Sex Assigned at Not on file 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
--- OUTSIDE RECORDS SUMMARY | 2025-07-18 13:36 | XMS_ITS | Encounter Summary ---
Author Organization [facility] Healthcare Address [address] [place] [address] Care Team Providers Care Washery Engineer Name Role Phone Oh Goode MD Primary Care Provider [phone] Bernie Rollins RN Unavailable [phone] Encounter Details Date Type Department Care Team (Late st Contact Info) Description 04/12/2025 Orders Only [facility] Health Information Management [address] [place] [address] Scanning, Provider Social History Tobacco Use Types Packs/Day Years Used Date Smoking Tobacco: Never Smokeless Tobacco: Never Alcohol Use Standard Drinks/Week Comments Yes 0 (1 standard drink = 0.6 oz pur e alcohol) Comments Unknown Sex and Gender Information Value Date Recorded Sex Assigned at Not on file 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
--- OUTSIDE RECORDS SUMMARY | 2025-07-18 13:36 | XMS_ITS | Encounter Summary ---
Author Organization [facility] Healthcare Address [address] [place] [address] Care Team Providers Care Chronic Care Nurse Name Role Phone Oh Goode MD Primary Care Provider [phone] Bernie Rollins RN Unavailable [phone] Encounter Details Date Type Department Care Team (Late st Contact Info) Description 10/05/2023 Orders Only [facility] Health Information Management [address] [place] [address] Scanning, Provider Social History Tobacco Use Types Packs/Day Years Used Date Smoking Tobacco: Never Alcohol Use Standard Drinks/Week Comments Yes 0 (1 standard drink = 0.6 oz pur e alcohol) Comments Unknown Sex and Gender Information Value Date Recorded Sex Assigned at Not on file Legal Sex Female 1:20 PM NURSING DEPARTMENT CHAIRPERSON Gender Identity Not on file Sexual Orientation Not on file documented as of this encounter Plan of Treatment Not on file documented as of this encounter Procedures Procedure Name Priority Date/Time Associated Diagnosis Comments CARDIOLOGY DOCUMENT SCAN 10/05/2023 9:29 PM NURSING DEPARTMENT CHAIRPERSON documented in this encounter Results * Cardiology Document Scan (10/05/2023 9:29 PM NURSING DEPARTMENT CHAIRPERSON) Anatomical Region Laterality Modality Other us Provider Scanning CV CARDIAC SERVICES PROCEDURES Final Result documented in this encounter Visit Diagnoses Not on filedocumented in this encounter Care Teams Chronic Care Nurse Relationship Specialty Start Date End Date Oh Goode MD PCP - General 05/28/13 Bernie Rollins, NETTE [address] [facility] [address] [place] [address] SHOP Outpatient Supervisor Wet Pour 07/15/25 documented as of this encounter
--- OUTSIDE RECORDS SUMMARY | 2025-07-18 13:36 | XMS_ITS | Encounter Summary ---
Author Organization [facility] Healthcare Address [address] [place] [address] Care Team Providers Care Sales Floor Manager Name Role Phone Oh Goode MD Primary Care Provider [phone] [phone] Bernie Rollins RN Unavailable [phone] Encounter Details Date Type Department Care Team (Late st Contact Info) Description 03/01/2025 Orders Only [facility] Health Information Management [address] [place] [address] Scanning, Provider Social History Tobacco Use Types Packs/Day Years Used Date Smoking Tobacco: Never Smokeless Tobacco: Never Alcohol Use Standard Drinks/Week Comments Yes 0 (1 standard drink = 0.6 oz pur e alcohol) Comments Unknown Sex and Gender Information Value Date Recorded Sex Assigned at Not on file 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
--- OUTSIDE RECORDS SUMMARY | 2025-07-18 13:36 | XMS_ITS | Encounter Summary ---
Author Organization [facility] Healthcare Address [address] [place] [address] Care Team Providers Care Solar Applications Development Engineer Name Role Phone Oh Goode MD Primary Care Provider [phone] Bernie Rollins RN Unavailable [phone] Encounter Details Date Type Department Care Team (Late st Contact Info) Description 07/18/2025 Telephone [facility] [address] [place] [address] Elma Lucas, [facility] Social History Tobacco Use Types Packs/Day Years Used Date Smoking Tobacco: Never Smokeless Tobacco: Never Alcohol Use Standard Drinks/Week Comments Yes 0 (1 standard drink = 0.6 oz pur e alcohol) Social Connection and Isolation Panel Answer Date Recorded Frequency of Communication w ith Friends and Family Three times a week 07/15/2025 Frequency of Social Gatherin gs with Friends and Family Three times a week 07/15/2025 Attends [employer] Services More than 4 times per year 07/15/2025 Do you belong to any clubs o r organizations such as orthodoxy groups, unions, fraternal or athletic groups, or school groups? Yes 07/15/2025 How often do you attend meet ings of the clubs or organizations you belong to? 1 to 4 times per year 07/15/2025 Marital Status 07/15/2025 Overall Financial Resource Strain (CARDIA) Answe r Date Recorded How hard is it for you to pa y for the very basics like food, housing, medical care, and heating? Not very hard 07/15/2025 Hunger Vital Sign Answer Date Recorded Within the past 12 months, y ou worried that your food would run out before you got the money to buy more. Never true 07/15/20 25 Within the past 12 months, t he food you bought just didn't last and you didn't have money to get more. Never true 07/15/2025 PRAPARE - Transportation Answer Date Re corded In the past 12 months, has l ack of transportation kept you from medical appointments or from getting medications? No 06/2025 In the past 12 months, has l ack of transportation kept you from meetings, work, or from getting things needed for daily living? No 07/15/2025 Housing Stability Vital Sign Answer Drew e Recorded In the last 12 months, was t here a time when you were not able to pay the mortgage or rent on time? No 07/15/2025 In the past 12 months, how m any times have you moved where you were living? 0 07/15/2025 At any time in the past 12 m onths, were you homeless or living in a custodial (including now)? No 07/15/2025 [facility] Utilities Answer Date Recorded In the past 12 months has th e [employer], gas, oil, or water [employer] threatened to shut off services in your home? No 07/15/2025 Personal Safety Answer Date Recorded Have you ever been in or are you currently in a harmful physical or emotional relationship or is someone making you feel afraid or unsafe? 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 Patient did not answer on the 2nd phone call attempt. Elma Lucas PharmD, BCPS Clinical Executive Relations Specialist - Internal Medicine/Transitions of Care documented in this encounter Plan of Treatment Not on file documented as of this encounter Goals Goal Patient Goal Type Associated Problems Recent Progress Patient-Stated? Author Patient will have kept initial appointment and will show signs of improvement to baseline Care Plan Initial Follow-Up Appointment On track( 2:17 PM CDT) Bernie Almanza RN Note: [facility] appointment scheduled for 08/15, though patient has a different PCP listed in chart. Daughter states patient is currently established with Dr. Goode, but they are hoping to establish care with [facility]. Daughter states patient has follow up with Dr. Goode on 07/18 and they plan to attend this and will follow with Dr. Goode until initial [facility] appointment. Patient will have plan for follow-up with recommended medical insurance biller Care Plan Follow-Up with an Appropriate Specialist Needed No change(2024 2:07 PM CDT) Bernie Almanza RN Note: Patient recommended to follow up with [facility] for outpatient endoscopy/colonoscopy. Per discharge summary, GI team will contact patient to schedule. [facility] will follow up to ensure this is scheduled appropriately. documented as of this encounter Visit Diagnoses Not on filedocumented in this encounter Additional Health Concerns Active Problems Noted Date Diagnosed Date Initial Follow-Up Appointment 07/15/2025 Follow-Up with an Appropriate Specialist Needed 07/15/2025 documented as of this encounter Care Teams Solar Applications Development Engineer Relationship Specialty Start Date End Date Oh Goode MD PCP - General 05/28/13 Bernie Rollins RN [address] [facility] [address] [place] [address] SHOP Outpatient Coin Machine Collector Supervisor 07/15/25 documented as of this encounter
--- OUTSIDE RECORDS SUMMARY | 2025-07-18 13:36 | XMS_ITS | Encounter Summary ---
Author Organization [facility] Healthcare Address [address] [place] [address] Care Team Providers Care Embedded Software Programmer Name Role Phone Oh Goode MD Primary Care Provider [phone] [phone] Bernie Rollins RN Unavailable [phone] Encounter Details Date Type Department Care Team (Late st Contact Info) Description 07/03/[address] 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 Gender Identity Not on file Sexual Orientation Not on file documented as of this encounter Plan of Treatment Not on file documented as of this encounter Procedures Procedure Name Priority Date/Time Associated Diagnosis Comments SCAN - LABS 07/03/2025 documented in this encounter Results * SCAN - LABS (07/03/2025) us Provider Scanning Final Result documented in this encounter Visit Diagnoses Not on filedocumented in this encounter Care Teams Embedded Software Programmer Relationship Specialty Start Date End Date Oh Goode MD PCP - General 05/28/13 Bernie Rollins, NETTE [address] [facility] [address] [place] [address] SHOP Outpatient Wedding Consultant 07/15/25 documented as of this encounter
--- OUTSIDE RECORDS SUMMARY | 2025-07-18 13:36 | XMS_ITS | Encounter Summary ---
Author Organization [facility] Healthcare Address [address] [place] [address] Care Team Providers Care Structural Steel Painter Name Role Phone Oh Goode MD Primary Care Provider [phone] Bernie Rollins RN Unavailable [phone] Encounter Details Date Type Department Care Team (Late st Contact Info) Description 03/21/2025 Orders Only [facility] [address] [place] [address] Scanning, Provider Social History Tobacco Use Types Packs/Day Years Used Date Smoking Tobacco: Never Smokeless Tobacco: Never Alcohol Use Standard Drinks/Week Comments Yes 0 (1 standard drink = 0.6 oz pur e alcohol) Comments Unknown Sex and Gender Information Value Date Recorded Sex Assigned at Not on file Legal Sex Female 1:20 PM OPERATING ROOM AIDE Gender Identity Not on file Sexual Orientation [...] filedocumented in this encounter Care Teams Structural Steel Painter Relationship Specialty Start Date End Date Oh Goode MD PCP - General 05/28/13 Bernie Rollins, NETTE [address] [facility] [address] [place] [address] SHOP Outpatient Town Justice 07/15/25 documented as of this encounter
--- OUTSIDE RECORDS SUMMARY | 2025-07-18 13:36 | XMS_ITS | Encounter Summary ---
Author Organization [facility] Healthcare Address [address] [place] [address] Care Team Providers Care Burglar Alarm Superintendent Name Role Phone Oh Goode MD Primary Care Provider [phone] Bernie Rollins RN Unavailable [phone] Encounter Details Date Type Department Care Team (Late st Contact Info) Description 02/08/2025 Orders Only [facility] Information Management [address] [place] [address] Scanning, Provider Social History Tobacco Use Types Packs/Day Years Used Date Smoking Tobacco: Never Smokeless Tobacco: Never Alcohol Use Standard Drinks/Week Comments Yes 0 (1 standard drink = 0.6 oz pur e alcohol) Comments Unknown Sex and Gender Information Value Date Recorded Sex Assigned at Not on file Legal Sex Female 1:20 PM ELECTRONIC VIDEO GAMES SERVICER Gender Identity Not on file Sexual Orientation [...] on filedocumented in this encounter Care Teams Burglar Alarm Superintendent Relationship Specialty Start Date End Date Oh Goode MD PCP - General 05/28/13 Bernie Rollins, NETTE [address] [facility] [address] [place] [address] SHOP Outpatient Pull Over Machine Operator 07/15/25 documented as of this encounter
--- OUTSIDE RECORDS SUMMARY | 2025-07-18 13:36 | XMS_ITS | Encounter Summary ---
Author Organization [facility] Healthcare Address [address] [place] [address] Care Team Providers Care Shoe Sprayer Name Role Phone Oh Goode MD Primary Care Provider [phone] Bernie Rollins RN Unavailable [phone] Encounter Details Date Type Department Care Team (Late st Contact Info) Description 02/15/2025 Orders Only [facility] Information Management [address] [place] [address] Scanning, Provider Social History Tobacco Use Types Packs/Day Years Used Date Smoking Tobacco: Never Smokeless Tobacco: Never Alcohol Use Standard Drinks/Week Comments Yes 0 (1 standard drink = 0.6 oz pur e alcohol) Comments Unknown Sex and Gender Information Value Date Recorded Sex Assigned at Not on file Legal Sex Female 1:20 PM FIBERGLASS PRODUCT TESTER Gender Identity Not on file Sexual Orientation [...] on filedocumented in this encounter Care Teams Shoe Sprayer Relationship Specialty Start Date End Date Oh Goode MD PCP - General 05/28/13 Bernie Rollins, NETTE [address] [facility] [address] [place] [address] SHOP Outpatient Hat Block Bench Hand 07/15/25 documented as of this encounter
--- OUTSIDE RECORDS SUMMARY | 2025-07-18 13:36 | XMS_ITS | Patient Health Record ---
Author Organization [facility] Address [address] [place], [place] [id number] Care Team Providers Care Senior Telecommunications Technician Name Role Phone GIOVANY Hardin Unavailable [phone] Oh Goode Unavailable Unavailable Reason For Referral No Information Plan Of Treatment No Information Insurance Providers Payer Name Payer Address Payer Phone Subscriber Number Group Number Insured Name Patient Relationship to Insured Coverage Start Date Coverage End Date AARP MedicareC omplete ([facility]) [address] [place], [place] [id number] SEAN SALMERON Self - patient is the insured
--- OUTSIDE RECORDS SUMMARY | 2025-07-18 13:36 | XMS_ITS ---
Care Plan Created on: July 18, 2025 Sarah Alvarado : 1945 Sex: Female Author Organization [facility] [address] Address [address] [place] [address] Care Team Providers Care Igniter Assembler Name Role Phone Oh Goode MD Primary Care Provider [phone] Bernie Rollins RN Unavailable [phone] Active Problems Problem Noted Date Diagnosed Date CKD (chronic kidney disease) stage 4, GFR 15-29 ml/min 07/09/2025 Assessment & Plan (07/13/2025 7:04 AM CDT): On admission Cr 2.8 (fluctuating past few months, appears b/l ~2.7). Recent ED visit 06/25 Cr 3.15. Last neph f/u in 2021, appears lost to f/u. - IVF prn Assessment & Plan (07/12/2025 3:21 PM CDT): On admission Cr 2.8 (fluctuating past few months, appears b/l ~2.7). Recent ED visit 06/25 Cr 3.15. Last neph f/u in 2021, appears lost to f/u. - IVF prn Assessment & Plan (07/11/2025 7:31 AM CDT): On admission Cr 2.8 (fluctuating past few months, appears b/l ~2.7). Recent ED visit 06/25 Cr 3.15. Last neph f/u in 2021, appears lost to f/u. - IVF prn Assessment & Plan (07/10/2025 11:52 AM CDT): On admission Cr 2.8 (fluctuating past few months, appears b/l ~2.7). Recent ED visit 06/25 Cr 3.15. Last neph f/u in 2021, appears lost to f/u. - IVF prn Assessment & Plan (07/09/2025 4:37 PM CDT): On admission Cr 2.8 (fluctuating past few months, appears b/l ~2.7). Recent ED visit 06/25 Cr 3.15. Last neph f/u in 2021, appears lost to f/u. - IVF prn HFrEF (heart failure with reduced ejection fract ion) 07/09/2025 Assessment & Plan (07/13/2025 7:04 AM CDT): TTE (2020) LVEF 45-50%, mild AV sclerosis. Dry on exam. - Hold home lasix 20 daily Assessment & Plan (07/12/2025 3:21 PM CDT): TTE (2020) LVEF 45-50%, mild AV sclerosis. Dry on exam. - Hold home lasix 20 daily Assessment & Plan (07/11/2025 7:31 AM CDT): TTE (2020) LVEF 45-50%, mild AV sclerosis. Dry on exam. - Hold home lasix 20 daily Assessment & Plan (07/10/2025 11:52 AM CDT): TTE (2020) LVEF 45-50%, mild AV sclerosis. Dry on exam. - Hold home lasix 20 daily Assessment & Plan (07/09/2025 4:37 PM CDT): TTE (2020) LVEF 45-50%, mild AV sclerosis. Dry on exam. - Hold home lasix 20 daily Macrocytic anemia 07/09/2025 Assessment & Plan (07/13/2025 7:04 AM CDT): On admission, hgb 10.4, MCV 107.9. B12 191 (L), folate 7 (wnl). Retic count wnl. EGD/Cscope and path (2014) unremarkable. H pylori stool Ag negative (may be false negative given pt on PPI prior to admission) - anti-intrinsic factor and anti-parietal cell Ab pending - B12 injections daily Assessment & Plan (07/12/2025 3:21 PM CDT): On admission, hgb 10.4, MCV 107.9. B12 191 (L), folate 7 (wnl). Retic count wnl. EGD/Cscope and path (2014) unremarkable. H pylori stool Ag negative (may be false negative given pt on PPI prior to admission) - anti-intrinsic factor and anti-parietal cell Ab pending - B12 injections daily Assessment & Plan (07/11/2025 3:11 PM CDT): On admission, hgb 10.4, MCV 107.9. B12 191 (L), folate 7 (wnl). Retic count wnl. EGD/Cscope and path (2014) unremarkable. H pylori stool Ag negative (may be false negative given pt on PPI prior to admission) - anti-intrinsic factor and anti-parietal cell Ab pending - B12 injections daily Assessment & Plan (07/10/2025 11:52 AM CDT): On admission, hgb 10.4, MCV 107.9. B12 191 (L), folate 7 (wnl). EGd/Cscope and path (2014) unremarkable - H pylori, retic count, - anti-intrinsic factor and anti-parietal cell Ab - B12 injections Assessment & Plan (07/09/2025 4:37 PM CDT): On admission, hgb 10.4, MCV 107.9. B12 191 (L), folate 7 (wnl). EGd/Cscope and path (2014) unremarkable - H pylori, retic count, TSH - anti-intrinsic factor and anti-parietal cell Ab - B12 injections T2DM (type 2 diabetes mellitus) 07/09/2025 Assessment & Plan (07/13/2025 7:04 AM CDT): A1c 7.4%. Hold home sitagliptin 25 - ldSSI Assessment & Plan (07/12/2025 3:21 PM CDT): A1c 7.4%. Hold home sitagliptin 25 - ldSSI Assessment & Plan (07/11/2025 7:31 AM CDT): A1c 7.4%. Hold home sitagliptin 25 - ldSSI Assessment & Plan (07/10/2025 11:52 AM CDT): A1c 7.4%. Hold home sitagliptin 25 - ldSSI Assessment & Plan (07/09/2025 4:37 PM CDT): A1c 7.4%. Hold home sitagliptin 25 - ldSSI Neuropathy 07/09/2025 Assessment & Plan (07/13/2025 10:45 AM CDT): Endorses ongoing LE neuropathy for several years. May be iso of low B12 vs diabetes. Reports gabapentin cost-prohibitive in the past. Graves check this admission now shows gabapentin and duloxetine are affordable. - Gabapentin 200mg TID Assessment & Plan (07/12/2025 3:21 PM CDT): Endorses ongoing LE neuropathy for several years. May be iso of low B12 vs diabetes. Reports gabapentin cost-prohibitive in the past. Graves check this admission now shows gabapentin and duloxetine are affordable. - Increase to gabapentin 200mg TID Assessment & Plan (07/11/2025 3:11 PM CDT): Endorses ongoing LE neuropathy for several years. May be iso of low B12 vs diabetes. Reports gabapentin cost-prohibitive in the past. Graves check this admission now shows gabapentin and duloxetine are affordable. - Increase to gabapentin 100mg TID Assessment & Plan (07/10/2025 11:52 AM CDT): Endorses ongoing LE neuropathy for several years. May be iso of low B12 vs diabetes. Reports gabapentin cost-prohibitive in the past - graves check gabapentin ($1.30) and duloxetine ($2.38) - start gabapentin 100 hs #Chronic pain: hold home norco. Scheduled tylenol, oxy prn #HTN: home amlodipine 5 daily and coreg 12.5 bid #HLD: home atorva. Hold home fenofibrate #GERD: protonix 40 daily Assessment & Plan (07/09/2025 4:37 PM CDT): Endorses ongoing LE neuropathy for several years. May be iso of low B12 vs diabetes. Reports gabapentin cost-prohibitive in the past - graves check gabapentin and duloxetine - start gabapentin 100 hs #Chronic pain: hold home norco. Scheduled tylenol, oxy prn #HTN: home amlodipine 5 daily and coreg 12.5 bid #HLD: home atorva. Hold home fenofibrate #GERD: protonix 40 daily Abdominal pain 07/08/2025 Assessment & Plan (07/13/2025 10:45 AM CDT): #Nausea P/w intermittent lower abdominal pain and nausea for the past 1yr. Recent prior ED visits for similar symptoms. On admission, AVSS, LFTs, lactate/lipase wnl, WBC 6.1, UA bland, UCx/G/C negative. UDS +benzo/opiates. CT AP with no acute abnormality; s/f sacral ulcers. DDx: PUD, H pylori, functional, less concern for malignancy given unremarkable imaging. UTI unlikely given clean UA and Ucx. H pylori stool Ag negative (may be false negative given pt on PPI prior to admission) - start sucralfate qid - Protonix 40 BID - PRN compazine - GI will arrange out pt EGD/colonoscopy - PT/OT eval Assessment & Plan (07/12/2025 3:21 PM CDT): #Nausea P/w intermittent lower abdominal pain and nausea for the past 1yr. Recent prior ED visits for similar symptoms. On admission, AVSS, LFTs, lactate/lipase wnl, WBC 6.1, UA bland, UCx/G/C negative. UDS +benzo/opiates. CT AP with no acute abnormality; s/f sacral ulcers. DDx: PUD, H pylori, functional, less concern for malignancy given unremarkable imaging. UTI unlikely given clean UA and Ucx. H pylori stool Ag negative (may be false negative given pt on PPI prior to admission) - start sucralfate qid - restart Protonix 40 BID - PRN compazine Assessment & Plan (07/11/2025 7:31 AM CDT): P/w intermittent lower abdominal pain and nausea for the past 1yr. Recent prior ED visits for similar symptoms. On admission, AVSS, LFTs, lactate/lipase wnl, WBC 6.1, UA bland, UCx/G/C negative. UDS +benzo/opiates. CT AP with no acute abnormality; s/f sacral ulcers. DDx: PUD, H pylori, functional, less concern for malignancy given unremarkable imaging. UTI unlikely given clean UA and Ucx. H pylori stool Ag negative (may be false negative given pt on PPI prior to admission) - start sucralfate qid Assessment & Plan (07/10/2025 11:53 AM CDT): P/w intermittent lower abdominal pain and nausea for the past 1yr. Recent prior ED visits for similar symptoms. On admission, AVSS, LFTs, lactate/lipase wnl, WBC 6.1, UA bland, UCx/G/C negative. UDS +benzo/opiates. CT AP with no acute abnormality; s/f sacral ulcers. DDx: PUD, H pylori, functional, less concern for malignancy given unremarkable imaging. UTI unlikely given clean UA and Ucx. - Stool H pylori - start sucralfate qid Assessment & Plan (07/09/2025 4:37 PM CDT): P/w intermittent lower abdominal pain and nausea for the past 1yr. Recent prior ED visits for similar symptoms. On admission, AVSS, LFTs, lactate/lipase wnl, WBC 6.1, UA bland, UCx/G/C negative. UDS +benzo/opiates. CT AP with no acute abnormality; s/f sacral ulcers. DDx: PUD, H pylori, functional, less concern for malignancy given unremarkable imaging. UTI unlikely given clean UA and Ucx. - Stool H pylori A-fib 02/06/2025 Assessment & Plan (07/13/2025 10:45 AM CDT): Home warfarin, INR goal 2-3. Hospitalization 01/2025 found to have INR 27. Pharm rec'd at that time to decrease to warfaring 1mg daily. Eliquis cost-prohibitive in the past. However repeat graves check during admission shows DOAC is now affordable. On admission, INR 3.64. INR in therapeutic range (2.14) on 07/10. - Restart xarelto and stop therapeutic lovenox - home amio 200, coreg 12.5mg BID - tele Assessment & Plan (07/12/2025 3:21 PM CDT): Home warfarin, INR goal 2-3. Hospitalization 01/2025 found to have INR 27. Pharm rec'd at that time to decrease to warfaring 1mg daily. Eliquis cost-prohibitive in the past. However repeat graves check during admission shows DOAC is now affordable. On admission, INR 3.64. INR in therapeutic range (2.14) on 07/10. -Hold xarelto and start therapeutic lovenox (possible scope mon) - home amio 200, coreg 12.5mg BID - tele Assessment & Plan (07/11/2025 3:11 PM CDT): Home warfarin, INR goal 2-3. Hospitalization 01/2025 found to have INR 27. Pharm rec'd at that time to decrease to warfaring 1mg daily. Eliquis cost-prohibitive in the past. However repeat graves check during admission shows DOAC is now affordable. On admission, INR 3.64. INR in therapeutic range (2.14) on 07/10. - Start xarelto 15mg daily - home amio 200, coreg 12.5mg BID - tele Assessment & Plan (07/10/2025 11:52 AM CDT): Home warfarin, INR goal 2-3. Hospitalization 01/2025 found to have INR 27. Pharm rec'd at that time to decrease to warfaring 1mg daily. Eliquis cost-prohibitive. On admission, INR 3.64. INR in therapeutic range (2.14) on 07/10. - restart home warfarin - home amio 200, coreg 12.5mg BID - tele - graves check eliquis ($12.50)/xarelto ($12.50) Assessment & Plan (07/09/2025 4:37 PM CDT): Home warfarin, INR goal 2-3. Hospitalization 01/2025 found to have INR 27. Pharm rec'd at that time to decrease to warfaring 1mg daily. Eliquis cost-prohibitive. On admission, INR 3.64. - hold warfarin till approached therapeutic range - home amio 200, coreg 12.5mg BID - tele - graves check eliquis/xarelto Primary cardiomyopathy 08/30/2014 Overview (02/10/2017): Primary cardiomyopathy Additional Health Concerns Active Problems Noted Date Diagnosed Date Initial Follow-Up Appointment 07/15/2025 Follow-Up with an Appropriate Specialist Needed 07/15/2025 Goals Goal Patient Goal Type Associated Problems Recent Progress Patient-Stated? Author Patient will have kept initial appointment and will show signs of improvement to baseline Care Plan Initial Follow-Up Appointment On track( 025 2:17 PM CDT) Bernie Almanza RN Note: [facility] appointment scheduled for 08/15, though patient has a different PCP listed in chart. [facility] patient is currently established with Dr. Goode, but they are hoping to establish care with [facility]. [facility] patient has follow up with Dr. Goode on 07/18 and they plan to attend this and will follow with Dr. Goode until initial [facility] appointment. Patient will have plan for follow-up with recommended medical assembler Care Plan Follow-Up with an Appropriate Specialist Needed No change(2024 2:07 PM CDT) Bernie Almanza RN Note: Patient recommended to follow up with [facility] for outpatient endoscopy/colonoscopy. Per discharge summary, GI team will contact patient to schedule. [facility] will follow up to ensure this is scheduled appropriately. Interventions Care Plan Interventions Intervention Entry Date Outcome Coordinate with patient/caregivers to ensure that recommended specialty follow up appointments are scheduled 07/15/2025 Coordinate with PCP, inpatient providers, or other professionals who may be needed to schedule appointment 07/15/2025 Acquire or follow-up on referrals from referring providers 07/15/2025 Identify and address other barriers to scheduling appointment 07/15/2025 Identify and address other barriers to keeping appointment 07/15/2025 Follow up with patient/ caregivers after appointment to ensure patient understands the care plan and need for subsequent specialized care 07/15/2025 Follow up with patient 2 days after Post Hospital Visit office visit to ensure understanding of changes and follow-up plan 07/15/2025 Coordinate with patient/caregiver(s) to ensure patient is able to keep scheduled appointment 07/15/2025 Address any barriers for keeping scheduled appointment 07/15/2025 Discuss with patient/ caregiver plan for transportation to appointment 07/15/2025 Ensure Pt has follow-up scheduled within 7 days of discharge 07/15/2025 Related Goals and Interventions Goal Associated Intervent ions Patient will have kept initi al appointment and will show signs of improvement to baseline Follow up with patient 2 days after Post Hospital Visit office visit to ensure understanding of changes and follow-up plan; Coordinate with patient/caregiver(s) to ensure patient is able to keep scheduled appointment; Address any barriers for keeping scheduled appointment; Discuss with patient/ caregiver plan for transportation to appointment; Ensure Pt has follow-up scheduled within 7 days of discharge Patient will have plan for f ollow-up with recommended medical assembler Coordinate with patient/caregivers to en sure that recommended specialty follow up appointments are scheduled; Coordinate with PCP, inpatient providers, or other professionals who may be needed to schedule appointment; Acquire or follow-up on referrals from referring providers; Identify and address other barriers to scheduling appointment; Identify and address other barriers to keeping appointment; Follow up with patient/ caregivers after appointment to ensure patient understands the care plan and need for subsequent specialized care
--- OUTSIDE RECORDS SUMMARY | 2025-07-18 13:36 | XMS_ITS | Encounter Summary ---
Author Organization [facility] Healthcare Address [address] [place] [address] Care Team Providers Care Bow Making Machine Operator Name Role Phone Oh Goode MD Primary Care Provider [phone] Bernie Rollins RN Unavailable [phone] Reason for Visit * Reason Comments Unsuccessful Phone Call 1 Encounter Details Date Type Department Care Team (Late st Contact Info) Description 07/17/2025 SH[facility]/CHAP Subsequent Outreach [facility] OP CASE MANAGEMENT [address] [place] [address] Bernie Rollins, RN [address] [facility] [address] [place], [place] [id number] Social History Tobacco Use Types Packs/Day Years [...] Family Three times a week 07/15/2025 Attends [employer] More than 4 times per year 07/15/2025 Do you belong to any clubs o r organizations such as adventism groups, unions, fraternal or athletic groups, or school groups? Yes 07/15/2025 How often do you attend meet ings of the clubs or organizations you belong to? 1 to 4 times per year 07/15/2025 Marital Status 07/15/2025 Overall Financial Resource Strain (CARDIA) Answ r Date Recorded How hard is it [...] living in a long-term (including now)? No 07/15/2025 [facility] Utilities Answer Date Recorded [...] on file Legal Sex Female 1:20 PM [facility] Gender Identity Not on file Sexual Orientation Not on file documented as of this encounter Plan of Treatment Not on file documented as of this encounter Goals Goal Patient Goal Type Associated Problems Recent Progress Patient-Stated? Author Patient will have kept initial appointment and will show signs of improvement to baseline Care Plan Initial Follow-Up Appointment On track( 025 2:17 PM CDT) Bernie Almanza, RN Note: [facility] appointment scheduled for 08/15, though patient has a different PCP listed in chart. Daughter states patient is currently established with Dr. Goode, but they are hoping to establish care with [facility]. Dereje rachel patient has follow up with Dr. Goode on 07/18 and they plan to attend this and will follow with Dr. Goode until initial [facility] appointment. Patient will have plan for follow-up with recommended nuclear medical technologist Care Plan Follow-Up with an Appropriate Specialist Needed No change(2024 2:07 PM CDT) No Bernie Rollins RN Note: Patient recommended to follow up with GI for outpatient endoscopy/colonoscopy. Per discharge summary, [...] documented as of this encounter Care Teams Bow Making Machine Operator Relationship Specialty Start Date End Date Oh Goode MD PCP - General 05/28/13 Bernie Rollins RN [address] [address] SHOP Outpatient Insurance Collector 07/15/25 documented as of this encounter
--- OUTSIDE RECORDS SUMMARY | 2025-07-18 13:37 | XMS_ITS | Clinical Summary ---
Author Organization [facility] [address] Address [address] [place] [address] Care Team Providers Care Controls Engineer Name Role Phone Oh Goode MD Primary Care Provider [phone] Bernie Rollins RN Unavailable [phone] Allergies Active Allergy Reactions Criticality Noted Date Comments Ceftriaxone Anaphylaxis High 01/16/2025 Hypotension, airway constriction, itching Morphine Nitroglycerin Penicillins Medications albuterol HFA (PROVENTIL HFA) 90 mcg/actuation inhaler inhale 2 puff by inhalation route every 4 - 6 hours as needed 0 Inhaler 0 016 Active atorvastatin (LIPITOR) 80 mg tablet take 1 tablet by oral route every day 0 0 016 Active fenofibrate (TRIGLIDE) 160 mg tablet take 1 tablet by oral route every day 0 0 016 Active melatonin 5 mg tablet Take 1 tablet (5 mg total) by mouth nightly Active ezetimibe (ZETIA) 10 mg tablet Take 1 tablet (10 mg total) by mouth daily Active amiodarone (PACERONE) 200 mg tablet Take 1 tablet (200 mg total) by mouth daily Active amLODIPine (NORVASC) 5 mg tablet Take 1 tablet (5 mg total) by mouth daily Active allopurinoL (ZYLOPRIM) 100 mg tablet Take [...] tablet Take 1 tablet by mouth daily as needed for constipation Active ergocalciferol (VITAMIN D) 50,000 unit capsule Take 1 capsule (50,000 Units total) by mouth once a week Wednesdays Active docusate sodium (DOK) 100 mg tabletIndications :constipation Take 1 tablet (100 mg total) by mouth 2 (two) times a day as needed for constipation Active SITagliptin phosphate (JANUVIA) 25 mg tabletIndications :type 2 diabetes mellitus Take 1 tablet (25 mg total) by mouth daily Active glucose 4 gram chewable tablet Take 4 tablets (16 g total) by mouth as needed for low blood sugar Active carvediloL (COREG) 12.5 mg tablet Take 1 tablet (12.5 mg total) by mouth 2 (two) times a day with meals Active cyanocobalamin (Vitamin B-12) 1,000 mcg tabletIndications :Prevention of Vitamin B12 Deficiency Take 1 tablet (1,000 mcg total) by mouth daily 30 tablet [address] (Protonix) 40 mg EC tablet Take 1 tablet (40 mg total) by mouth 2 (two) times a day 60 tablet 025 2024 Active gabapentin (NEURONTIN) 100 mg capsule Take 2 capsules (200 mg total) by mouth 3 (three) times a day 180 capsule 2024 Active ondansetron ODT (ZOFRAN-ODT) 4 mg disintegrating tabletIndications :Nausea and Vomiting Take 1 tablet (4 mg total) by mouth every 6 (six) hours as needed for nausea or vomiting 45 tablet 2024 Active rivaroxaban (XARELTO) 15 mg tabletIndications :atrial fibrillation Take 1 tablet (15 mg total) by mouth daily with dinner 30 tablet 2024 Active sucralfate (CARAFATE) 1 gram tablet Take 1 tablet (1 g total) by mouth 4 (four) times a day (with meals and nightly) for 10 days 40 tablet 025 2024 Active furosemide (LASIX) 40 mg tablet take 1 tablet by oral route every day 0 0 07 013 2024 Discontinued(S top Taking at Discharge) gabapentin (NEURONTIN) 300 mg capsule take 1 Capsule by oral route 3 times every day 0 0 014 2024 Discontinued SITagliptin (JANUVIA) 50 mg tablet take 1 Tablet by oral route every day 0 0 016 2024 Discontinued warfarin (COUMADIN) 2 mg tablet Take 1 tablet (2 mg total) by mouth 4 (four) times a week Tuesday, Tuesday, , Tuesday Discontinued(S top Taking at Discharge) cefdinir (OMNICEF) 300 mg capsule Take 1 capsule (300 mg total) by mouth 2 (two) times a day 2024 Discontinued predniSONE (DELTASONE) 10 mg tablet Take 1 tablet (10 mg) by mouth daily 2024 Discontinued HYDROcodone-aceta minophen (NORCO) 10-325 mg per tabletIndications :Pain Take 1 tablet by mouth every 6 (six) hours as needed for pain 2024 Discontinued(S top Taking at Discharge) aspirin 81 mg enteric coated tablet Take 1 tablet (81 mg total) by mouth daily 2024 Discontinued tamsulosin (FLOMAX) 0.4 mg extended release capsule 1 capsule (0.4 mg total) 2024 Discontinued apixaban (ELIQUIS) 5 mg tablet Take 1 tablet (5 mg total) by mouth 2 (two) times a day 2024 Discontinued(A lternate therapy) carvediloL (COREG) 3.125 mg tablet Take 1 tablet (3.125 mg total) by mouth 2 (two) times a day with meals 2024 Discontinued warfarin (COUMADIN) 1 mg tablet Take 1 tablet (1 mg total) by mouth 3 (three) times a week Tuesday, Tuesday, Tuesday Discontinued(S top Taking at Discharge) omeprazole (PriLOSEC) 40 mg capsule Take 1 capsule (40 mg total) by mouth daily 2024 Discontinued(S top Taking at Discharge) famotidine (PEPCID) 20 mg tablet Take 1 tablet (20 mg total) by mouth 2 (two) times a day 2024 Discontinued(S top Taking at Discharge) rivaroxaban (XARELTO) 20 mg tablet Take 1 tablet (20 mg total) by mouth daily with breakfast 30 tablet 025 2024 Discontinued apixaban (ELIQUIS) 5 mg tablet Take 1 tablet (5 mg total) by mouth 2 (two) times a day 60 tablet [address] (Cymbalta) 30 mg capsule Take 1 capsule (30 mg total) by mouth daily 30 capsule 025 2024 Discontinued gabapentin (Neurontin) 100 mg capsule Take 1 capsule (100 mg total) by mouth daily 30 capsule 025 2024 Discontinued blood-glucose sensor device Sarah Alvarado 1 each 025 2024 Discontinued Active Problems Problem Noted Date Diagnosed Date [...] diabetes. Reports gabapentin cost-prohibitive in the past. Regan check this admission now shows gabapentin and duloxetine are affordable. - Gabapentin 200mg TID Assessment & Plan (07/12/2025 3:21 PM CDT): Endorses ongoing LE neuropathy for several years. May be iso of low B12 vs diabetes. Reports gabapentin cost-prohibitive in the past. Regan check this admission now shows gabapentin and duloxetine are affordable. - Increase to gabapentin 200mg TID Assessment & Plan (07/11/2025 3:11 PM CDT): Endorses ongoing LE neuropathy for several years. May be iso of low B12 vs diabetes. Reports gabapentin cost-prohibitive in the past. Regan check this admission now shows gabapentin and duloxetine are affordable. - Increase to gabapentin 100mg TID Assessment & Plan (07/10/2025 11:52 AM CDT): Endorses ongoing LE neuropathy for several years. May be iso of low B12 vs diabetes. Reports gabapentin cost-prohibitive in the past - regan check gabapentin ($1.30) and duloxetine ($2.38) - [...] Reports gabapentin cost-prohibitive in the past - regan check gabapentin and duloxetine - start gabapentin [...] Eliquis cost-prohibitive in the past. However repeat regan check during admission shows DOAC is now [...] Eliquis cost-prohibitive in the past. However repeat regan check during admission shows DOAC is now [...] Eliquis cost-prohibitive in the past. However repeat regan check during admission shows DOAC is now [...] 200, coreg 12.5mg BID - tele - regan check eliquis ($12.50)/xarelto ($12.50) Assessment & Plan (07/09/2025 4:37 PM CDT): Home warfarin, INR goal 2-3. Hospitalization 01/2025 found to have INR 27. Pharm rec'd at that time to decrease to warfaring 1mg daily. Eliquis cost-prohibitive. On admission, INR 3.64. - hold warfarin till approached therapeutic range - home amio 200, coreg 12.5mg BID - tele - regan check eliquis/xarelto Primary cardiomyopathy 08/30/2014 Overview (02/10/2017): Primary cardiomyopathy Encounters Date Type Department Care Team Description 07/18/2025 Telephone [facility] [address] [place] [address] Elma Lucas, [facility] 07/17/2025 SHOP/CHAP Subsequent Outreach [facility] OP CASE [facility]NAGEMENT [address] [place] [address] Bernie Rolilns RN 07/16/2025 Telephone [facility] [address] [place] [address] Elma Lucas, [facility] 07/15/2025 SHOP/CHAP Initial Outreach [facility] OP CASE [facility]NAGEMENT [address] [place] [address] Bernie Rollins, NETTE 07/15/2025 SHOP/CHAP Initial Eligibility Review [facility] CASE [facility]NAGEMENT [address] [place] [address] Bernie Rollins, NETTE 07/08/2025 3:10 PM CDT - 07/13/2025 6:47 PM CDT Hospital Encounter [facility] [address] [place] [address] Ben Rodriguez Jr., MD Anderson, MD Nila Clifford, MD Javier Zabala, MD Amna Pace, Tod Weinstein MD LIV (acute kidney injury) (Primary Dx); Abdominal pain; Bilious vomiting with nausea; Pelvic pain; Dehydration; RLQ abdominal pain; Umbilical hernia without obstruction and without gangrene; Left femoral hernia without obstruction or gangrene; Fungal dermatitis; Yeast infection of the vagina; Bacterial vaginosis Discharge Disposition: Discharge to home or self care 07/04/2025 Anticoagulation Visit [facility] [address] [place] [phone] Salina Loja, RN 07/03/2025 Orders Only [facility] Health Information Management [address] [place] [id number] Scanning, Provider 05/20/2025 Anticoagulation Visit [facility] [address] [facility] [address] [place] [phone] Salina Loja RN 05/03/2025 Anticoagulation Visit [facility] [address] [place] [phone] Lluvia Maza RN 04/29/2025 Anticoagulation Visit [facility] [address] [facility] [address] [place] [phone] Lluvia Maza RN 04/26/2025 Orders Only [facility] Health Information Management [address] [place] [phone] Scanning, Provider from Last 3 Months Surgical [...] Family Three times a week 07/15/2025 Attends [employer] More than 4 times per year 07/15/2025 Do you belong to any clubs o r organizations such as hinduism groups, unions, fraternal or athletic groups, or [...] any time in the past 12 [facility], were you homeless or living in a retirement (including now)? No 07/15/2025 [facility] Utilities Answer Date Recorded In the past 12 months has th e [employer], gas, oil, or water [employer] threatened to shut off services in your home? No 07/15/2025 Personal Safety Answer Date Recorded Have you ever been in or are you currently in a harmful physical or emotional relationship or is someone making you feel afraid or unsafe? 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 Gender Identity Not on file Sexual Orientation Not on file Obstetrics History Last Filed Vital Signs Vital Sign Reading Time Taken Comments Blood Pressure 131/65 07/13/2025 5:10 PM CDT Pulse 58 07/13/2025 5:10 PM CDT Temperature 36.5 C (97.7 F) 07/13/2025 5:10 PM CDT Respiratory Rate 17 07/13/2025 5:10 PM CDT Oxygen Saturation 97% 07/13/2025 5:10 PM CDT Inhaled Oxygen Concentration - - Weight 86.2 kg (190 lb) 07/09/2025 2:25 PM CDT Height 167.6 cm (5' 5.98) 07/09/2025 2:25 PM CD T Body Mass Index 30.68 07/09/2025 2:25 PM CDT Plan of Treatment Health Maintenance Due Date Last Done Comments Albumin Creatinine Ratio, Urine 1945 Depression Screening 1945 Hepatitis C Screening 1945 Osteoporosis Screening-Bone Density Scan 1945 Dilated Eye Exam 1946 Foot Exam 1946 Hepatitis B Screening 1964 Zoster Vaccine (1 of 2) 1996 Well Visit 65+ 2011 Hemoglobin A1C 01/17/2016 07/19/2015 Lipid Panel 07/18/2016 07/18/2015, 11/21/2014 Covid-19 Vaccine (6 - 4-2 5 season) 2025 08/31/2024, 04/23/2022, 08/25/2021, Additional history exists Influenza Vaccine (#1) 2025 , 09/21/2023, 08/21/2022, Additional history exists eGFR 07/12/2026 07/12/2025, 02/2025, 07/10/2025, Additional history exists Fall Risk Assessment 07/13/2026 07/13/2025 DTaP/Tdap/Td Vaccine (2 - Td or Tdap) 10/05/2026 10/05/2016 Pneumococcal vaccine 65+ Completed 024, 10/02/2019, 09/07/2019 Goals Goal Patient Goal Type Associated Problems Recent Progress Patient-Stated? Author Patient will have kept initial appointment and will show signs of improvement to baseline Care Plan Initial Follow-Up Appointment On track( 2:17 PM CDT) No Bernie Rollins, RN Note: [facility] appointment scheduled for 08/15, though patient has a different PCP listed in chart. Daughter states patient is currently established with Dr. Goode, but they are hoping to establish care with [facility]. Daughter states patient has follow up with Dr. Goode on 07/18 and they plan to attend this and will follow with Dr. Goode until initial [facility] appointment. Patient will have plan for follow-up with recommended medical transport specialist Care Plan Follow-Up with an Appropriate Specialist Needed No change(2024 2:07 PM CDT) No Bernie Rollins, NETTE Note: Patient recommended to follow up with GI for outpatient endoscopy/colonoscopy. Per discharge summary, GI team will contact patient to schedule. [facility] will follow up to ensure this is scheduled appropriately. Procedures Procedure Name Priority Date/Time Associated Diagnosis Comments POCT GLUCOSE DEVICE Routine 07/13/2025 4 :30 PM CDT POCT GLUCOSE DEVICE Routine 07/13/2025 1 2:05 PM CDT POCT GLUCOSE DEVICE Routine 07/13/2025 7 :25 AM CDT EGFR Timed 07/12/2025 11:51 PM CDT DIFFERENTIAL AUTO Timed 07/12/2025 11: 51 PM CDT PHOSPHORUS Timed 07/12/2025 11:51 PM CDT MAGNESIUM Timed 07/12/2025 11:51 PM CDT CBC WITH AUTO DIFFERENTIAL Timed 07/12/2025 11:51 PM CDT COMPREHENSIVE METABOLIC PANEL Timed 07/12/2025 11:51 PM CDT POCT GLUCOSE DEVICE Routine 07/12/2025 8 :12 PM CDT POCT GLUCOSE DEVICE Routine 07/12/2025 5 :11 PM CDT POCT GLUCOSE DEVICE Routine 07/12/2025 1 1:51 AM CDT POTASSIUM, WHOLE BLOOD STAT 9:31 AM CDT POCT GLUCOSE DEVICE Routine 07/12/2025 7 :30 AM CDT EGFR Timed 07/11/2025 9:49 PM CDT DIFFERENTIAL AUTO Timed 07/11/2025 9:4 9 PM CDT PROTIME-INR Routine 07/11/2025 9:49 PM CDT PHOSPHORUS Timed 07/11/2025 9:49 PM CDT MAGNESIUM Timed 07/11/2025 9:49 PM CDT CBC WITH AUTO DIFFERENTIAL Timed 07/11/2025 9:49 PM CDT COMPREHENSIVE METABOLIC PANEL Timed 07/11/2025 9:49 PM CDT POCT GLUCOSE DEVICE Routine 07/11/2025 7 :58 PM CDT POCT GLUCOSE DEVICE Routine 07/11/2025 5 :14 PM CDT POCT GLUCOSE DEVICE Routine 07/11/2025 1 1:24 AM CDT POCT GLUCOSE DEVICE Routine 07/11/2025 7 :39 AM CDT EGFR Timed 07/10/2025 10:02 PM CDT DIFFERENTIAL AUTO Timed 07/10/2025 10: 02 PM CDT PHOSPHORUS Timed 07/10/2025 10:02 PM CDT MAGNESIUM Timed 07/10/2025 10:02 PM CDT CBC WITH AUTO DIFFERENTIAL Timed 07/10/2025 10:02 PM CDT COMPREHENSIVE METABOLIC PANEL Timed 07/10/2025 10:02 PM CDT POCT GLUCOSE DEVICE Routine 07/10/2025 8 :25 PM CDT H. PYLORI ANTIGEN, STOOL Routine 07/10/2025 5:58 PM CDT POCT GLUCOSE DEVICE Routine 07/10/2025 4 :52 PM CDT POCT GLUCOSE DEVICE Routine 07/10/2025 1 1:32 AM CDT POCT GLUCOSE DEVICE Routine 07/10/2025 7 :54 AM CDT POCT GLUCOSE DEVICE Routine 07/10/2025 3 :35 AM CDT EGFR Routine 07/10/2025 3:34 AM CDT URINALYSIS, MICROSCOPIC ONLY STAT 07/10/2025 3:34 AM CDT DIFFERENTIAL AUTO Routine 07/10/2025 3:3 4 AM CDT PROTIME-INR Timed 07/10/2025 3:34 AM CDT RENAL FUNCTION PANEL Routine 07/10/2025 3:34 AM CDT CBC WITH AUTO DIFFERENTIAL Routine 07/10/2025 3:34 AM CDT URINE CULTURE STAT 07/10/2025 3:34 AM CDT URINALYSIS AND REFLEX TO MICROSCOPIC AND CULTURE STAT 07/10/2025 3:34 AM CDT POCT GLUCOSE DEVICE Routine 07/09/2025 8 :05 PM CDT PARIETAL CELL ANTIBODY, IGG Timed 07/09/2025 7:46 PM CDT INTRINSIC FACTOR BLOCKING ANTIBODY Timed 07/09/2025 7:46 PM CDT RETICULOCYTES Timed 07/09/2025 7:46 PM CDT POCT GLUCOSE DEVICE Routine 07/09/2025 5 :20 PM CDT POCT GLUCOSE DEVICE Routine 07/09/2025 1 2:40 PM CDT POCT GLUCOSE DEVICE Routine 07/09/2025 1 0:13 AM CDT VITAMIN B12 Timed 07/09/2025 8:41 AM CDT FOLATE Timed 07/09/2025 8:41 AM CDT POCT GLUCOSE DEVICE Routine 07/09/2025 3 :28 AM CDT POCT GLUCOSE DEVICE Routine 07/08/2025 1 1:43 PM CDT POCT GLUCOSE DEVICE Routine 07/08/2025 8 :22 PM CDT APTT STAT 07/08/2025 8:21 PM CDT PROTIME-INR STAT 07/08/2025 8:21 PM CDT TROPONIN I HIGH-SENSITIVITY 2-HOUR Timed 07/08/2025 8:14 PM CDT ECG 12-LEAD STAT 07/08/2025 6:51 PM CDT TROPONIN I HIGH-SENSITIVITY SERIES (BASELINE, 2HR, 4HR, 6HR) STAT 07/08/2025 6:[address] ABDOMEN PELVIS W CONTRAST ED 07/08/2025 6:03 PM CDT URINALYSIS, MICROSCOPIC ONLY STAT 07/08/2025 4:51 PM CDT URINALYSIS AND REFLEX TO MICROSCOPIC STAT 07/08/2025 4:51 PM CDT URINE CULTURE STAT 07/08/2025 4:51 PM CDT N. GONORRHOEAE/C. TRACHOMATIS AMPLIFICATION STAT 07/08/2025 4:50 PM CDT DRUGS OF ABUSE SCREEN, URINE WITHOUT CONFIRMATION STAT 07/08/2025 4:20 PM CDT URINE CULTURE STAT 07/08/2025 4:20 PM CDT POCT RAPID HIV ANTIBODY COMMUNITY SCREENING-DA ELIGIBLE STAT 07/08/2025 4:18 PM CDT THYROID FUNCTION CASCADE Routine 07/08/2025 4:12 PM CDT EGFR STAT 07/08/2025 4:12 PM CDT DIFFERENTIAL AUTO STAT 07/08/2025 4:1 2 PM CDT CREATINE KINASE (CK), TOTAL Routine 07/08/2025 4:12 PM CDT LACTATE STAT 07/08/2025 4:12 PM CDT TROPONIN I HIGH-SENSITIVITY Routine 07/08/2025 4:12 PM CDT CBC WITH AUTO DIFFERENTIAL STAT 07/08/2025 4:12 PM CDT COMPREHENSIVE METABOLIC PANEL STAT 07/08/2025 4:12 PM CDT LIPASE STAT 07/08/2025 4:12 PM CDT RPR STAT 07/08/2025 4:12 PM CDT POCT GLUCOSE DEVICE Routine 07/08/2025 2 :19 PM CDT SCAN - LABS 07/03/2025 PROTIME-INR Routine 07/03/2025 PROTIME-INR Routine 05/20/2025 PROTIME-INR Routine 05/03/2025 SCAN - LABS 04/26/2025 PROTIME-INR Routine 04/26/2025 HEMOGLOBIN A1C Routine 07/19/2015 8:16 AM CDT TNI WITH LIPID PANEL Routine 07/18/2015 10:10 AM CDT from Last 3 Months or Most Recently Relevant to Health Maintenance Results * (ABNORMAL) POCT glucose (07/13/2025 4:30 PM CDT) [facility] Signature Glucose, POC 233(H) 70 - 199 mg/dL Blood 07/13/2025 4:30 PM CDT 07/13/2025 4:30 PM CDT us Tod Woo MD LAB POCT ORDERABLES - DEVICE Final Result [facility] Department [place] [address] * POCT glucose (07/13/2025 12:05 PM CDT) Glucose, POC 139 70 - 199 mg/dL Blood 07/13/2025 12:0 5 PM CDT 07/13/2025 12:05 PM CDT Tod Woo MD LAB POCT ORDERABLES - DEVICE Final Result Performing Organization Address City/[facility] Co de Phone Number [facility] Department [place] [address] * POCT glucose (07/13/2025 7:25 AM CDT) Glucose, POC 101 70 - 199 mg/dL Blood 07/13/2025 7:25 AM CDT 07/13/2025 7:25 AM CDT Tod Woo MD LAB POCT ORDERABLES - DEVICE Final Result Performing Organization Address [facility] de Phone Number [facility] Department [place] [address] * (ABNORMAL) eGFR (07/12/2025 11:51 PM CDT) eGFR 20(L) >=60 mL/min/1. 73 m2 Comment: Interpretive Data Reference Interval Normal >/= 90 mL/min/1.73m2 Mildly decreased* 60 - 89 mL/min/1.73m2 Mildly to moderately decreased 45 - 59 mL/min/1.73m2 Moderately to severely decreased 30 - 44 mL/min/1.73m2 Severely decreased 15 - 29 mL/min/1.73m2 Kidney Failure < 15 mL/min/1.73m2 *Relative to young adult level Estimated glomerular filtration rate is determined by the 2020 CKD-EPI equation recommended by the National Kidney Foundation (A Unifying Approach to GFR Estimation: Recommendations of the NKF-ASK Task Force on Reassessing the Inclusion of Race in Diagnosing Kidney Disease, JASN 2020). The CKD-EPI equation should not be used for patients with unstable renal function and has not been validated in children and those over 70. Current interpretive data was last reviewed 2021. Blood 07/12/2025 11:5 1 PM CDT 07/13/2025 12:39 AM CDT Tod Woo MD LAB BLOOD ORDERABLES Final Re sult [facility] Department [place] [address] * Differential, auto (07/12/2025 11:51 PM CDT) Neutrophil abs 3.10 1.50 - 6.50 K/cumm Imm gran abs 0.03 0.00 - 0.10 K/cumm [facility] Lymphocyte abs 1.03 0.80 - 3.30 K/cumm [facility] Monocyte abs 0.36 0.20 - 0.80 K/cumm [facility] Eosinophil abs 0.18 0.00 - 0.50 K/cumm [facility] Basophil abs 0.03 0.00 - 0.10 K/cumm [facility] Neutrophil pct 65.6 % [facility] Comment: Interpretive Data Percent cell count reference ranges are not reported, since discordance with absolute values may lead to misinterpretation of CBC data. Current Interpretive Data was last revised on 2018. Imm gran pct 0.6 % [facility] Comment: Interpretive Data Percent cell count reference ranges are not reported, since discordance with absolute values may lead to misinterpretation of CBC data. Current Interpretive Data was last revised on 2018. Lymphocyte pct 21.8 % [facility] Comment: Interpretive Data Percent cell count reference ranges are not reported, since discordance with absolute values may lead to misinterpretation of CBC data. Current Interpretive Data was last revised on 2018. Monocyte pct 7.6 % [facility] Comment: Interpretive Data Percent cell count reference ranges are not reported, since discordance with absolute values may lead to misinterpretation of CBC data. Current Interpretive Data was last revised on 2018. Eosinophil pct 3.8 % [facility] Comment: Interpretive Data Percent cell count reference ranges are not reported, since discordance with absolute values may lead to misinterpretation of CBC data. Current Interpretive Data was last revised on 2018. Basophil pct 0.6 % [facility] Comment: Interpretive Data Percent cell count reference ranges are not reported, since discordance with absolute values may lead to misinterpretation of CBC data. Current Interpretive Data was last revised on 2018. Blood 07/12/2025 11:5 1 PM CDT 07/13/2025 12:40 AM CDT us Tod Woo MD LAB BLOOD ORDERABLES Final Re sult [facility] Department [place] [address] * (ABNORMAL) CBC with auto differential (07/12/2025 11:51 PM CDT) WBC 4.73 3.80 - 9.90 K/cumm Hgb 8.7(L) 11.9 - 15.5 g/dL [facility] Hct 27.8(L) 35.6 - 45.5 % [facility] Plt 87(L) 150 - 400 K/cumm [facility] MPV 11.4 9.1 - 12.3 fL [facility] RBC 2.55(L) 3.90 - 5.20 M/cumm [facility] MCV 109.0(H) 81.3 - 96.4 fL [facility] MCH 34.1(H) 27.1 - 33.3 pg [facility] MCHC 31.3(L) 32.3 - 35.7 g/dL [facility] RDW CV 15.9(H) 11.1 - 14.9 % [facility] RDW SD 64.1(H) 35.7 - 48.1 fL [facility] NRBC abs 0.00 0.00 - 0.01 K/cumm [facility] Blood 07/12/2025 11:5 1 PM CDT 07/13/2025 12:40 AM CDT Tod Woo MD LAB BLOOD ORDERABLES Final Re sult Performing Organization Address [facility] Co de Phone Number [facility] [place] [address] * (ABNORMAL) Phosphorus (07/12/2025 11:51 PM CDT) [facility] Phosphorus, pl 2.2(L) 2.3 - 4.5 mg/dL Blood 07/12/2025 11:5 1 PM CDT 07/13/2025 12:39 AM CDT Tod Woo MD LAB BLOOD ORDERABLES Final Re sult Performing Organization Address [facility] de Phone Number [facility] Department [place] [address] * Magnesium (07/12/2025 11:51 PM CDT) [facility] Magnesium 2.3 1.4 - 2.5 mg/dL Blood 07/12/2025 11:5 1 PM CDT 07/13/2025 12:39 AM CDT Result [facility] Tod Woo MD LAB BLOOD ORDERABLES Final Re sult Performing Organization Address [facility] de Phone Number [facility] [place] [address] * (ABNORMAL) Comprehensive metabolic panel (07/12/2025 11:51 PM CDT) [facility] Sodium 143 135 - 145 mmol/L Potassium, pl 4.9 3.3 - 4.9 mmol/L [facility] Chloride 115(H) 97 - 110 mmol/L [facility] CO2 22 22 - 32 mmol/L [facility] Anion gap 6 2 - 15 mmol/L [facility] BUN 28(H) 6 - 25 mg/dL [facility] Creatinine 2.40(H) 0.60 - 1.10 mg/dL [facility] Glucose 118 70 - 199 mg/dL [facility] Comment: Interpretive Data Fasting glucose >/= 126 mg/dl is diagnostic for diabetes. Fasting is defined as no caloric intake for at least 8 hours. Fasting glucose between 100 mg/dl to 125 mg/dl is diagnostic of prediabetes. In a patient with classic symptoms of hyperglycemia or hyperglycemic crisis, a random glucose >/= 200 mg/dl is diagnostic for diabetes. In the absence of unequivocal hyperglycemia, results should be confirmed by repeat testing. The classification and Diagnosis of Diabetes Diabetes Care 2021; 46: S19-S40. Current interpretive data was last revised 2022. Calcium 7.8(L) 8.5 - 10.3 mg/dL [facility] Bilirubin, total 0.2 0.1 - 1.2 mg/dL [facility] Protein, pl 5.1(L) 6.5 - 8.5 g/dL [facility] Albumin 2.8(L) 3.5 - 5.0 g/dL [facility] Alk phos 70 40 - 130 Units/L [facility] ALT 10 7 - 45 Units/L [facility] AST 20 10 - 45 Units/L [facility] Blood 07/12/2025 11:5 1 PM CDT 07/13/2025 12:39 AM CDT Tod Woo MD LAB BLOOD ORDERABLES Final Re sult [facility] Department [place] [address] * POCT glucose (07/12/2025 8:12 PM CDT) [facility] Glucose, POC 152 70 - 199 mg/dL Blood 07/12/2025 8:12 PM CDT 07/12/2025 8:12 PM CDT Tod Woo MD LAB POCT ORDERABLES - DEVICE Final Result Performing Organization Address [facility] de Phone Number [facility] [place] [address] * POCT glucose (07/12/2025 5:11 PM CDT) Glucose, POC 182 70 - 199 mg/dL Comment:Glu2: RN/ Notified Glucose comment 1 Glu2: RN/MD Notified [facility] Blood 07/12/2025 5:11 PM CDT 07/12/2025 5:11 PM CDT Result [facility] Tod Woo MD LAB POCT ORDERABLES - DEVICE Final Result Performing Organization Address [facility] de Phone Number [facility] [place] [address] * (ABNORMAL) POCT glucose (07/12/2025 11:51 AM CDT) Glucose, POC 211(H) 70 - 199 mg/dL Comment:Glu2: RN/ Notified Glucose comment 1 Glu2: RN/ Notified [facility] Blood 07/12/2025 11:5 1 AM CDT 07/12/2025 11:51 AM CDT Result [facility] Tod Woo MD LAB POCT ORDERABLES - DEVICE Final Result Performing Organization Address [facility] Co de Phone Number [facility] [place] [address] * Potassium, whole blood (07/12/2025 9:31 AM CDT) Potassium, bld 4.7 3.3 - 4.9 mmol/L Blood 07/12/2025 9:31 AM CDT 07/12/2025 9:46 AM CDT Result [facility] Tod Woo MD LAB BLOOD ORDERABLES Final Re sult [facility] [place] [address] * POCT glucose (07/12/2025 7:30 AM CDT) Glucose, POC 120 70 - 199 mg/dL Blood 07/12/2025 7:30 AM CDT 07/12/2025 7:30 AM CDT Result [facility] Tod Woo MD LAB POCT ORDERABLES - DEVICE Final Result Performing Organization Address [facility] Co de Phone Number [facility] [place] [address] * (ABNORMAL) eGFR (07/11/2025 9:49 PM CDT) eGFR 20(L) >=60 mL/min/1. 73 m2 Comment: Interpretive Data Reference Interval Normal >/= 90 mL/min/1.73m2 Mildly decreased* 60 - 89 mL/min/1.73m2 Mildly to moderately decreased 45 - 59 mL/min/1.73m2 Moderately to severely decreased 30 - 44 mL/min/1.73m2 Severely decreased 15 - 29 mL/min/1.73m2 Kidney Failure < 15 mL/min/1.73m2 *Relative to young adult level Estimated glomerular filtration rate is determined by the 2020 CKD-EPI equation recommended by the National Kidney Foundation (A Unifying Approach to GFR Estimation: Recommendations of the NKF-ASK Task Force on Reassessing the Inclusion of Race in Diagnosing Kidney Disease, JASN 202). The CKD-EPI equation should not be used for patients with unstable renal function and has not been validated in children and those over 70. Current interpretive data was last reviewed 2021. Blood 07/11/2025 9:49 PM CDT 07/11/2025 10:37 PM CDT Tod Woo MD LAB BLOOD ORDERABLES Final Re sult [facility] Department [place] [address] * Differential, auto (07/11/2025 9:49 PM CDT) Neutrophil abs 2.56 1.50 - 6.50 K/cumm Imm gran abs 0.02 0.00 - 0.10 K/cumm [facility] Lymphocyte abs 0.85 0.80 - 3.30 K/cumm [facility] Monocyte abs 0.29 0.20 - 0.80 K/cumm [facility] Eosinophil abs 0.21 0.00 - 0.50 K/cumm [facility] Basophil abs 0.01 0.00 - 0.10 K/cumm [facility] Neutrophil pct 64.9 % [facility] Comment: Interpretive Data Percent cell count reference ranges are not reported, since discordance with absolute values may lead to misinterpretation of CBC data. Current Interpretive Data was last revised on 2018. Imm gran pct 0.5 % [facility] Comment: Interpretive Data Percent cell count reference ranges are not reported, since discordance with absolute values may lead to misinterpretation of CBC data. Current Interpretive Data was last revised on 2018. Lymphocyte pct 21.6 % [facility] Comment: Interpretive Data Percent cell count reference ranges are not reported, since discordance with absolute values may lead to misinterpretation of CBC data. Current Interpretive Data was last revised on 2018. Monocyte pct 7.4 % [facility] Comment: Interpretive Data Percent cell count reference ranges are not reported, since discordance with absolute values may lead to misinterpretation of CBC data. Current Interpretive Data was last revised on 2018. Eosinophil pct 5.3 % [facility] Comment: Interpretive Data Percent cell count reference ranges are not reported, since discordance with absolute values may lead to misinterpretation of CBC data. Current Interpretive Data was last revised on 2018. Basophil pct 0.3 % [facility] Comment: Interpretive Data Percent cell count reference ranges are not reported, since discordance with absolute values may lead to misinterpretation of CBC data. Current Interpretive Data was last revised on 2018. Blood 07/11/2025 9:49 PM CDT 07/11/2025 10:50 PM CDT Tod Woo MD LAB BLOOD ORDERABLES Final Re sult Performing Organization Address City/[facility]/ZIP Co de Phone Number [facility] [place] [address] * (ABNORMAL) CBC with auto differential (07/11/2025 9:49 PM CDT) WBC 3.94 3.80 - 9.90 K/cumm Hgb 9.6(L) 11.9 - 15.5 g/dL [facility] Hct 30.2(L) 35.6 - 45.5 % [facility] Plt 94(L) 150 - 400 K/cumm [facility] MPV 11.4 9.1 - 12.3 fL [facility] RBC 2.80(L) 3.90 - 5.20 M/cumm [facility] MCV 107.9(H) 81.3 - 96.4 fL [facility] MCH 34.3(H) 27.1 - 33.3 pg [facility] MCHC 31.8(L) 32.3 - 35.7 g/dL [facility] RDW CV 16.2(H) 11.1 - 14.9 % [facility] RDW SD 64.7(H) 35.7 - 48.1 fL [facility] NRBC abs 0.00 0.00 - 0.01 K/cumm [facility] Blood 07/11/2025 9:49 PM CDT 07/11/2025 10:50 PM CDT Tod Woo MD LAB BLOOD ORDERABLES Final Re sult [facility] [place] [address] * (ABNORMAL) Protime-INR (07/11/2025 9:49 PM CDT) PT 39.6(H) 10.2 - 13.5 sec INR 3.59(H) 0.90 - 1.20 [facility] Comment: Interpretive data Oral anticoagulant therapeutic ranges: Venous thromboembolism prophylaxis or treatment: 2.0-3.0 CARDIOLOGY Standard range: 2.0-3.0 High-intensity range: 2.5-3.5 Refer to indication-specific guidelines for appropriate target ranges for prosthetic heart valve replacement. Current interpretive data was last revised on 2019. Blood 07/11/2025 9:49 PM CDT 07/11/2025 10:32 PM CDT Result [facility] Tod Woo MD LAB BLOOD ORDERABLES Final Re sult Performing Organization Address [facility] Co de Phone Number [facility] Department [place] [address] * (ABNORMAL) Phosphorus (07/11/2025 9:49 PM CDT) Pathologist [facility] Phosphorus, pl 2.2(L) 2.3 - 4.5 mg/dL Blood 07/11/2025 9:49 PM CDT 07/11/2025 10:37 PM CDT Result [facility] Tod Woo MD LAB BLOOD ORDERABLES Final Re sult [facility] [place] [address] * (ABNORMAL) Magnesium (07/11/2025 9:49 PM CDT) Pathologist [facility] Magnesium 2.6(H) 1.4 - 2.5 mg/dL Blood 07/11/2025 9:49 PM CDT 07/11/2025 10:37 PM CDT Tod Woo MD LAB BLOOD ORDERABLES Final Re sult [facility] One [facility] Department [place] [address] * (ABNORMAL) Comprehensive metabolic panel (07/11/2025 9:49 PM CDT) Sodium 143 135 - 145 mmol/L Potassium, pl 5.9(H) 3.3 - 4.9 mmol/L [facility] Comment:Hemolyzed; Potassium value may be falsely elevated by as much as 0.6-1.0 mmol/L. Suggest redraw and reanalysis. Chloride 115(H) 97 - 110 mmol/L [facility] CO2 22 22 - 32 mmol/L [facility] Anion gap 6 2 - 15 mmol/L [facility] BUN 25 6 - 25 mg/dL [facility] Creatinine 2.36(H) 0.60 - 1.10 mg/dL [facility] Glucose 155 70 - 199 mg/dL [facility] Comment: Interpretive Data Fasting glucose >/= 126 mg/dl is diagnostic for diabetes. Fasting is defined as no caloric intake for at least 8 hours. Fasting glucose between 100 mg/dl to 125 mg/dl is diagnostic of prediabetes. In a patient with classic symptoms of hyperglycemia or hyperglycemic crisis, a random glucose >/= 200 mg/dl is diagnostic for diabetes. In the absence of unequivocal hyperglycemia, results should be confirmed by repeat testing. The classification and Diagnosis of Diabetes Diabetes Care 2021; 46: S19-S40. Current interpretive data was last revised 2022. Calcium 8.1(L) 8.5 - 10.3 mg/dL [facility] Bilirubin, total 0.2 0.1 - 1.2 mg/dL [facility] Comment:Reviewed Protein, pl 5.9(L) 6.5 - 8.5 g/dL [facility] Albumin 3.0(L) 3.5 - 5.0 g/dL [facility] Alk phos 74 40 - 130 Units/L [facility] ALT 12 7 - 45 Units/L [facility] AST 38 10 - 45 Units/L [facility] Comment:Hemolyzed; result ma y be falsely elevated Blood 07/11/2025 9:49 PM CDT 07/11/2025 10:37 PM CDT Result [facility] Tod Woo MD LAB BLOOD ORDERABLES Final Re sult Performing Organization Address [facility] Co de Phone Number [facility] [place] [address] * POCT glucose (07/11/2025 7:58 PM CDT) Glucose, POC 143 70 - 199 mg/dL Blood 07/11/2025 7:58 PM CDT 07/11/2025 7:58 PM CDT Result [facility] Tod Woo MD LAB POCT ORDERABLES - DEVICE Final Result Performing Organization Address [facility] de Phone Number [facility] [place] [address] * POCT glucose (07/11/2025 5:14 PM CDT) Glucose, POC 163 70 - 199 mg/dL Blood 07/11/2025 5:14 PM CDT 07/11/2025 5:14 PM CDT Result [facility] Tod Woo MD LAB POCT ORDERABLES - DEVICE Final Result Performing Organization Address [facility] de Phone Number [facility] [place] [address] * (ABNORMAL) POCT glucose (07/11/2025 11:24 AM CDT) Glucose, POC 219(H) 70 - 199 mg/dL Comment:Glu2: RN/ Notified Glucose comment 1 Glu2: RN/MD Notified [facility] Blood 07/11/2025 11:2 4 AM CDT 07/11/2025 11:24 AM CDT Tod Woo MD LAB POCT ORDERABLES - DEVICE Final Result Performing Organization Address City/[facility]/ZIP Co de Phone Number [facility] [place] [address] * POCT glucose (07/11/2025 7:39 AM CDT) Glucose, POC 122 70 - 199 mg/dL Blood 07/11/2025 7:39 AM CDT 07/11/2025 7:39 AM CDT Tod Woo MD LAB POCT ORDERABLES - DEVICE Final Result Performing Organization Address [facility] de Phone Number [facility] [place] [address] * (ABNORMAL) eGFR (07/10/2025 10:02 PM CDT) [facility] eGFR 19(L) >=60 mL/min/1. 73 m2 Comment: Interpretive Data Reference Interval Normal >/= 90 mL/min/1.73m2 Mildly decreased* 60 - 89 mL/min/1.73m2 Mildly to moderately decreased 45 - 59 mL/min/1.73m2 Moderately to severely decreased 30 - 44 mL/min/1.73m2 Severely decreased 15 - 29 mL/min/1.73m2 Kidney Failure < 15 mL/min/1.73m2 *Relative to young adult level Estimated glomerular filtration rate is determined by the 2020 CKD-EPI equation recommended by the National Kidney Foundation (A Unifying Approach to GFR Estimation: Recommendations of the NKF-ASK Task Force on Reassessing the Inclusion of Race in Diagnosing Kidney Disease, JASN 2020). The CKD-EPI equation should not be used for patients with unstable renal function and has not been validated in children and those over 70. Current interpretive data was last reviewed 2021. Blood 07/10/2025 10:0 2 PM CDT 07/10/2025 11:24 PM CDT us Tod Woo MD LAB BLOOD ORDERABLES Final Re sult [facility] Department [place] [address] * (ABNORMAL) Differential, auto (07/10/2025 10:02 PM CDT) Neutrophil abs 2.77 1.50 - 6.50 K/cumm Imm gran abs 0.02 0.00 - 0.10 K/cumm [facility] Lymphocyte abs 0.74(L) 0.80 - 3.30 K/cumm [facility] Monocyte abs 0.35 0.20 - 0.80 K/cumm [facility] Eosinophil abs 0.18 0.00 - 0.50 K/cumm [facility] Basophil abs 0.02 0.00 - 0.10 K/cumm [facility] Neutrophil pct 67.9 % [facility] Comment: Interpretive Data Percent cell count reference ranges are not reported, since discordance with absolute values may lead to misinterpretation of CBC data. Current Interpretive Data was last revised on 2018. Imm gran pct 0.5 % [facility] Comment: Interpretive Data Percent cell count reference ranges are not reported, since discordance with absolute values may lead to misinterpretation of CBC data. Current Interpretive Data was last revised on 2018. Lymphocyte pct 18.1 % [facility] Comment: Interpretive Data Percent cell count reference ranges are not reported, since discordance with absolute values may lead to misinterpretation of CBC data. Current Interpretive Data was last revised on 2018. Monocyte pct 8.6 % [facility] Comment: Interpretive Data Percent cell count reference ranges are not reported, since discordance with absolute values may lead to misinterpretation of CBC data. Current Interpretive Data was last revised on 2018. Eosinophil pct 4.4 % [facility] Comment: Interpretive Data Percent cell count reference ranges are not reported, since discordance with absolute values may lead to misinterpretation of CBC data. Current Interpretive Data was last revised on 2018. Basophil pct 0.5 % [facility] Comment: Interpretive Data Percent cell count reference ranges are not reported, since discordance with absolute values may lead to misinterpretation of CBC data. Current Interpretive Data was last revised on 2018. Blood 07/10/2025 10:0 2 PM CDT 07/10/2025 11:24 PM CDT Tod Woo MD LAB BLOOD ORDERABLES Final Re sult [facility] Department [place] [address] * (ABNORMAL) CBC with auto differential (07/10/2025 10:02 PM CDT) WBC 4.08 3.80 - 9.90 K/cumm Hgb 9.0(L) 11.9 - 15.5 g/dL [facility] Hct 28.6(L) 35.6 - 45.5 % [facility] Plt 91(L) 150 - 400 K/cumm [facility] MPV 11.1 9.1 - 12.3 fL [facility] RBC 2.60(L) 3.90 - 5.20 M/cumm [facility] MCV 110.0(H) 81.3 - 96.4 fL [facility] MCH 34.6(H) 27.1 - 33.3 pg [facility] MCHC 31.5(L) 32.3 - 35.7 g/dL [facility] RDW CV 16.5(H) 11.1 - 14.9 % [facility] RDW SD 66.5(H) 35.7 - 48.1 fL [facility] NRBC abs 0.00 0.00 - 0.01 K/cumm [facility] Blood 07/10/2025 10:0 2 PM CDT 07/10/2025 11:24 PM CDT Tod Woo MD LAB BLOOD ORDERABLES Final Re sult Performing Organization Address City/State/[facility] Co de Phone Number [facility] Department [place] [address] * Phosphorus (07/10/2025 10:02 PM CDT) [facility] Phosphorus, pl 2.7 2.3 - 4.5 mg/dL Blood 07/10/2025 10:0 2 PM CDT 07/10/2025 11:25 PM CDT Tod Woo MD LAB BLOOD ORDERABLES Final Re sult Performing Organization Address [facility] Co de Phone Number [facility] [place] [address] * Magnesium (07/10/2025 10:02 PM CDT) [facility] Magnesium 2.4 1.4 - 2.5 mg/dL Blood 07/10/2025 10:0 2 PM CDT 07/10/2025 11:25 PM CDT Tod Woo MD LAB BLOOD ORDERABLES Final Re sult Performing Organization Address [facility] Co de Phone Number [facility] Department [place] [address] * (ABNORMAL) Comprehensive metabolic panel (07/10/2025 10:02 PM CDT) [facility] Sodium 148(H) 135 - 145 mmol/L Potassium, pl 4.9 3.3 - 4.9 mmol/L [facility] Chloride 119(H) 97 - 110 mmol/L [facility] CO2 22 22 - 32 mmol/L [facility] Anion gap 7 2 - 15 mmol/L [facility] BUN 24 6 - 25 mg/dL [facility] Creatinine 2.49(H) 0.60 - 1.10 mg/dL [facility] Glucose 148 70 - 199 mg/dL [facility] Comment: Interpretive Data Fasting glucose >/= 126 mg/dl is diagnostic for diabetes. Fasting is defined as no caloric intake for at least 8 hours. Fasting glucose between 100 mg/dl to 125 mg/dl is diagnostic of prediabetes. In a patient with classic symptoms of hyperglycemia or hyperglycemic crisis, a random glucose >/= 200 mg/dl is diagnostic for diabetes. In the absence of unequivocal hyperglycemia, results should be confirmed by repeat testing. The classification and Diagnosis of Diabetes Diabetes Care 2021; 46: S19-S40. Current interpretive data was last revised 2022. Calcium 8.1(L) 8.5 - 10.3 mg/dL [facility] Bilirubin, total <0.2 0.1 - 1.2 mg/dL [facility] Comment:Reviewed Protein, pl 5.5(L) 6.5 - 8.5 g/dL [facility] Albumin 2.9(L) 3.5 - 5.0 g/dL [facility] Alk phos 61 40 - 130 Units/L [facility] ALT 8 7 - 45 Units/L [facility] AST 19 10 - 45 Units/L [facility] Blood 07/10/2025 10:0 2 PM CDT 07/10/2025 11:24 PM CDT Tod Woo MD LAB BLOOD ORDERABLES Final Re sult Performing Organization Address [facility]/ZIP Co de Phone Number [facility] [place] [address] * POCT glucose (07/10/2025 8:25 PM CDT) [facility] Signature Glucose, POC 162 70 - 199 mg/dL Blood 07/10/2025 8:25 PM CDT 07/10/2025 8:25 PM CDT Tod Woo MD LAB POCT ORDERABLES - DEVICE Final Result Performing Organization Address [facility]/ZIP Co de Phone Number [facility] Department [place] [address] * H. pylori antigen, stool Stool (07/10/2025 5:58 PM CDT) H. pylori Ag, stool Negative Negative Comment: Interpretative Data Testing performed at the [facility] using the Curian HpSA lateral flow immunoassay that detects Helicobacter pylori antigen in feces. This test is FDA cleared and its performance characteristics have been verified by the performing laboratory. False negative H. pylori antigen results may occur in patients on antimicrobials, proton pump inhibitors, or bismuth preparations; if clinically indicated, testing should be repeated on a new specimen two weeks after discontinuing these treatments. Interpretative data last revised November 2020. Stool 07/10/2025 5:58 PM CDT 07/10/2025 6:51 PM CDT Paige Anderson MD LAB MICROBIOLOGY - GENERAL ORDERABLES Final Result Performing Organization Address [facility] Co de Phone Number [facility] Department [place] [address] * POCT glucose (07/10/2025 4:52 PM CDT) Glucose, POC 171 70 - 199 mg/dL Blood 07/10/2025 4:52 PM CDT 07/10/2025 4:52 PM CDT Result [facility] Tod Woo MD LAB POCT ORDERABLES - DEVICE Final Result [facility] [place] [address] * POCT glucose (07/10/2025 11:32 AM CDT) Glucose, POC 153 70 - 199 mg/dL Blood 07/10/2025 11:3 2 AM CDT 07/10/2025 11:32 AM CDT Tod Woo MD LAB POCT ORDERABLES - DEVICE Final Result [facility] Department [place] [address] * POCT glucose (07/10/2025 7:54 AM CDT) Glucose, POC 116 70 - 199 mg/dL Blood 07/10/2025 7:54 AM CDT 07/10/2025 7:54 AM CDT Tod Woo MD LAB POCT ORDERABLES - DEVICE Final Result Performing Organization Address [facility] Co de Phone Number [facility] [place] [address] * POCT glucose (07/10/2025 3:35 AM CDT) [facility] Glucose, POC 115 70 - 199 mg/dL Blood 07/10/2025 3:35 AM CDT 07/10/2025 3:35 AM CDT Tod Woo MD LAB POCT ORDERABLES - DEVICE Final Result Performing Organization Address City/[facility] Co de Phone Number [facility] Department [place] [address] * (ABNORMAL) eGFR (07/10/2025 3:34 AM CDT) eGFR 20(L) >=60 mL/min/1. 73 m2 Comment: Interpretive Data Reference Interval Normal >/= 90 mL/min/1.73m2 Mildly decreased* 60 - 89 mL/min/1.73m2 Mildly to moderately decreased 45 - 59 mL/min/1.73m2 Moderately to severely decreased 30 - 44 mL/min/1.73m2 Severely decreased 15 - 29 mL/min/1.73m2 Kidney Failure < 15 mL/min/1.73m2 *Relative to young adult level Estimated glomerular filtration rate is determined by the 2020 CKD-EPI equation recommended by the National Kidney Foundation (A Unifying Approach to GFR Estimation: Recommendations of the NKF-ASK Task Force on Reassessing the Inclusion of Race in Diagnosing Kidney Disease, JASN 202). The CKD-EPI equation should not be used for patients with unstable renal function and has not been validated in children and those over 70. Current interpretive data was last reviewed 2021. Blood 07/10/2025 3:34 AM CDT 07/10/2025 4:22 AM CDT us Tod Woo MD LAB BLOOD ORDERABLES Final Re sult [facility] [place] [address] * Differential, auto (07/10/2025 3:34 AM CDT) Neutrophil abs 2.61 1.50 - 6.50 K/cumm Imm gran abs 0.01 0.00 - 0.10 K/cumm [facility] Lymphocyte abs 1.03 0.80 - 3.30 K/cumm [facility] Monocyte abs 0.38 0.20 - 0.80 K/cumm [facility] Eosinophil abs 0.16 0.00 - 0.50 K/cumm [facility] Basophil abs 0.02 0.00 - 0.10 K/cumm [facility] Neutrophil pct 62.0 % [facility] Comment: Interpretive Data Percent cell count reference ranges are not reported, since discordance with absolute values may lead to misinterpretation of CBC data. Current Interpretive Data was last revised on 2018. Imm gran pct 0.2 % [facility] Comment: Interpretive Data Percent cell count reference ranges are not reported, since discordance with absolute values may lead to misinterpretation of CBC data. Current Interpretive Data was last revised on 2018. Lymphocyte pct 24.5 % [facility] Comment: Interpretive Data Percent cell count reference ranges are not reported, since discordance with absolute values may lead to misinterpretation of CBC data. Current Interpretive Data was last revised on 2018. Monocyte pct 9.0 % [facility] Comment: Interpretive Data Percent cell count reference ranges are not reported, since discordance with absolute values may lead to misinterpretation of CBC data. Current Interpretive Data was last revised on 2018. Eosinophil pct 3.8 % [facility] Comment: Interpretive Data Percent cell count reference ranges are not reported, since discordance with absolute values may lead to misinterpretation of CBC data. Current Interpretive Data was last revised on 2018. Basophil pct 0.5 % [facility] Comment: Interpretive Data Percent cell count reference ranges are not reported, since discordance with absolute values may lead to misinterpretation of CBC data. Current Interpretive Data was last revised on 2018. Blood 07/10/2025 3:34 AM CDT 07/10/2025 4:22 AM CDT us Tod Woo MD LAB BLOOD ORDERABLES Final Re sult [facility] Department [place] [address] * (ABNORMAL) Urinalysis reflex to microscopic and culture Urine (07/10/2025 3:34 AM CDT) Color, ur Yellow Yellow Clarity, ur Clear Clear [facility] Specific gravity, ur 1.036(H) 1.003 - 1.030 [facility] pH, urine 6.0 [facility] Comment: Interpretive Data U rine pH is affected by diet, medications, systemic acid-base disturbances, and renal tubular function. pH may affect urinary stone formation. For example, urine pH below 6.0 may help reduce the tendency for calcium phosphate stones and pH greater than 6.0 may reduce the tendency for uric acid stone formation. Source: [employer] Current Interpretive Data was last revised on 2017 Protein, ur ql 2+(A) Negative [facility] Glucose, ur ql 1+(A) Negative [facility] Ketones, ur Negative Negative [facility] Bilirubin, ur Negative Negative [facility] Blood, ur Trace(A) Negative [facility] Urobilinogen, ur <2.0 <2.0 mg/dL [facility] Nitrite, ur Negative Negative [facility] Leukocyte esterase, ur 1+(A) Negative [facility] UA reflex comment Reflex to microscopic UA will be performed. [facility] Urine 07/10/2025 3:34 AM CDT 07/10/2025 4:17 AM CDT us Joe Nielson MD LAB MICROBIOLOGY - GEN ERAL ORDERABLES Final Result Performing Organization Address [facility]/ZIP Co de Phone Number [facility] Department [place] [address] * (ABNORMAL) CBC with auto differential (07/10/2025 3:34 AM CDT) WBC 4.21 3.80 - 9.90 K/cumm Hgb 8.8(L) 11.9 - 15.5 g/dL [facility] Hct 27.5(L) 35.6 - 45.5 % [facility] Plt 63(L) 150 - 400 K/cumm [facility] MPV 12.5(H) 9.1 - 12.3 fL [facility] RBC 2.57(L) 3.90 - 5.20 M/cumm [facility] MCV 107.0(H) 81.3 - 96.4 fL [facility] MCH 34.2(H) 27.1 - 33.3 pg [facility] MCHC 32.0(L) 32.3 - 35.7 g/dL [facility] RDW CV 16.6(H) 11.1 - 14.9 % [facility] RDW SD 64.8(H) 35.7 - 48.1 fL [facility] NRBC abs 0.00 0.00 - 0.01 K/cumm [facility] Blood 07/10/2025 3:34 AM CDT 07/10/2025 4:22 AM CDT us Tod Woo MD LAB BLOOD ORDERABLES Final Re sult [facility] Department [place] [address] * (ABNORMAL) Urinalysis, microscopic only (07/10/2025 3:34 AM CDT) WBC, ur 11-20(A) 0 - 5 /HPF RBC, ur 0-2 0 - 2 /HPF [facility] Epithelial cells, squamous, ur 11-20(A) 0 - 5 /HPF [facility] Comment:Suggestive of contam ination. Consider recollection by clean catch. Bacteria, ur Trace(A) [facility] Mucous, ur Present(A) [facility] Culture Reflex Comment Reflex to urine culture will be performed. [facility] Urine 07/10/2025 3:3 4 AM CDT 07/10/2025 4:17 AM CDT Joe Nielson MD LAB URINE ORDERABLES F inal Result Performing Organization Address [facility] de Phone Number [facility] Department [place] [address] * (ABNORMAL) Protime-INR (07/10/2025 3:34 AM CDT) PT 23.8(H) 10.2 - 13.5 sec INR 2.14(H) 0.90 - 1.20 [facility] Comment: Interpretive data Oral anticoagulant therapeutic ranges: Venous thromboembolism prophylaxis or treatment: 2.0-3.0 CARDIOLOGY Standard range: 2.0-3.0 High-intensity range: 2.5-3.5 Refer to indication-specific guidelines for appropriate target ranges for prosthetic heart valve replacement. Current interpretive data was last revised on 2019. Blood 07/10/2025 3:34 AM CDT 07/10/2025 4:33 AM CDT us Tod Woo MD LAB BLOOD ORDERABLES Final Re sult Performing Organization Address [facility]/State/ZIP Co de Phone Number [facility] Department [place] [address] * Urine culture Urine (07/10/2025 3:34 AM CDT) Report Final Report: Growth indicative of contamination with periurethral lewis. Please submit a new specimen with special attention given to the collection process and to prompt transport to the laboratory. Organism GROWTH INDICATES CONTAM WITH PERIURETHRAL LEWIS. [facility] Urine 07/10/2025 3:34 AM CDT 07/10/2025 4:43 AM CDT Narrative [facility] - 07/11/2025 12:25 PM CDT Urine culture reflexed based upon urinalysis results. Testing performed by [facility] ([phone]) Joe Nielson MD LAB MICROBIOLOGY - GEN ERAL ORDERABLES Final Result Performing Organization Address City/[facility] Co de Phone Number [facility] Department [place] [address] * (ABNORMAL) Renal function panel (07/10/2025 3:34 AM CDT) Pathologist [facility] Sodium 143 135 - 145 mmol/L Potassium, pl 4.8 3.3 - 4.9 mmol/L [facility] Chloride 117(H) 97 - 110 mmol/L [facility] CO2 22 22 - 32 mmol/L [facility] Anion gap 4 2 - 15 mmol/L [facility] BUN 24 6 - 25 mg/dL [facility] Creatinine 2.36(H) 0.60 - 1.10 mg/dL [facility] Glucose 109 70 - 199 mg/dL [facility] Comment: Interpretive Data Fasting glucose >/= 126 mg/dl is diagnostic for diabetes. Fasting is defined as no caloric intake for at least 8 hours. Fasting glucose between 100 mg/dl to 125 mg/dl is diagnostic of prediabetes. In a patient with classic symptoms of hyperglycemia or hyperglycemic crisis, a random glucose >/= 200 mg/dl is diagnostic for diabetes. In the absence of unequivocal hyperglycemia, results should be confirmed by repeat testing. The classification and Diagnosis of Diabetes Diabetes Care 2021; 46: S19-S40. Current interpretive data was last revised 2022. Calcium 7.7(L) 8.5 - 10.3 mg/dL [facility] Phosphorus, pl 2.7 2.3 - 4.5 mg/dL [facility] Albumin 2.7(L) 3.5 - 5.0 g/dL [facility] Blood 07/10/2025 3:34 AM CDT 07/10/2025 4:22 AM CDT Tod Woo MD LAB BLOOD ORDERABLES Final Re sult [facility] Department [place] [address] * (ABNORMAL) POCT glucose (07/09/2025 8:05 PM CDT) Glucose, POC 201(H) 70 - 199 mg/dL Blood 07/09/2025 8:05 PM CDT 07/09/2025 8:05 PM CDT Tod Woo MD LAB POCT ORDERABLES - DEVICE Final Result Performing Organization Address City/[facility]/ZIP Co de Phone Number [facility] [place] [address] * Parietal cell antibody, IgG (07/09/2025 7:46 PM CDT) Antigastric parietal cell <10.0 <=20.0 (Negative) Units [facility] Comment: Test Performed by: [facility] [address] [place] [id number] Case Management Social Worker: Amira Olivarez Ph.D.; CLIA# [id number] Blood 07/09/2025 7:46 PM CDT 07/09/2025 8:16 PM CDT Paige Anderson MD LAB BLOOD ORDERABLES Final Result Performing Organization Address City/[facility]/ZIP Co de Phone Number [facility] [place] [address] [facility] * Intrinsic factor blocking antibody (07/09/2025 7:46 PM CDT) IFBA ab Negative Negative [facility] Comment See Footnote [facility] Comment: Intrinsic Factor Blocking Antibody (IFBA) antibodies are absent in approximately 50% of individuals with pernicious anemia (PA). The absence of elevated IFBA antibodies does not rule out the presence of PA; further studies such as gastrin testing may be indicated. Test Performed by: [address] [address] Case Management Social Worker: Amira Olivarez Ph.D.; CLIA# [id number] Blood 07/09/2025 7:46 PM CDT 07/09/2025 8:16 PM CDT Paige Anderson MD LAB BLOOD ORDERABLES Final Result Performing Organization Address [facility] [place] [address] [facility] * Reticulocyte Count (07/09/2025 7:46 PM CDT) Retics, absolute 50 20 - 87 K/cumm Retics 1.9 0.4 - 2.9 % [facility] Reticulocyte Hgb 34.8 30.5 - 38.0 pg [facility] Blood 07/09/2025 7:46 PM CDT 07/09/2025 8:20 PM CDT Paige Anderson MD LAB BLOOD ORDERABLES Final Result [facility] One [facility] [place] [address] * POCT glucose (07/09/2025 5:20 PM CDT) Glucose, POC 140 70 - 199 mg/dL Blood 07/09/2025 5:20 PM CDT 07/09/2025 5:20 PM CDT Paige Anderson MD LAB POCT ORDERABLES - DEVIC E Final Result Performing Organization Address City/[facility] Co de Phone Number [facility] [place] [address] * (ABNORMAL) POCT glucose (07/09/2025 12:40 PM CDT) Glucose, POC 208(H) 70 - 199 mg/dL Blood 07/09/2025 12:4 0 PM CDT 07/09/2025 12:40 PM CDT Tod Woo MD LAB POCT ORDERABLES - DEVICE Final Result Performing Organization Address [facility] Co de Phone Number [facility] [place] [address] * POCT glucose (07/09/2025 10:13 AM CDT) Glucose, POC 119 70 - 199 mg/dL Blood 07/09/2025 10:1 3 AM CDT 07/09/2025 10:13 AM CDT Tod Woo MD LAB POCT ORDERABLES - DEVICE Final Result Performing Organization Address [facility] Co de Phone Number [facility] [place] [address] * Folate (07/09/2025 8:41 AM CDT) Folic acid 7.2 >=5.0 ng/mL Blood 07/09/2025 8:41 AM CDT 07/09/2025 8:56 AM CDT Tod Woo MD LAB BLOOD ORDERABLES Final Re sult Performing Organization Address [facility] Co de Phone Number [facility] [place] [address] * (ABNORMAL) Vitamin B12 (07/09/2025 8:41 AM CDT) Vitamin B12 191(L) 230 - 1,250 pg/mL Blood 07/09/2025 8:41 AM CDT 07/09/2025 8:56 AM CDT Result [facility] Tod Woo MD LAB BLOOD ORDERABLES Final Re sult Performing Organization Address [facility] de Phone Number [facility] [place] [address] * POCT glucose (07/09/2025 3:28 AM CDT) Glucose, POC 150 70 - 199 mg/dL Blood 07/09/2025 3:28 AM CDT 07/09/2025 3:28 AM CDT Result [facility] Marek Dotson MD LAB POCT ORDERABLES - ILEANA CE Final Result Performing Organization Address [facility] [place] [address] * (ABNORMAL) POCT glucose (07/08/2025 11:43 PM CDT) Glucose, POC 221(H) 70 - 199 mg/dL Comment:Glu2: RN/MD Notified Glucose comment 1 Glu2: RN/MD Notified [facility] Blood 07/08/2025 11:4 3 PM CDT 07/08/2025 11:43 PM CDT us Paige Anderson MD LAB POCT ORDERABLES - DEVIC E Final Result Performing Organization Address [facility] de Phone Number [facility] [place] [address] * POCT glucose (07/08/2025 8:22 PM CDT) Glucose, POC 107 70 - 199 mg/dL Blood 07/08/2025 8:22 PM CDT 07/08/2025 8:22 PM CDT us Ben Rodriguez Jr., MD LAB POCT ORDERABLES - DEVICE Final Result Performing Organization Address [facility] [place] [address] * (ABNORMAL) aPTT (07/08/2025 8:21 PM CDT) aPTT 42(H) 26 - 38 sec Comment: Interpretive Data Heparin therapeutic range: 66.0 - 100.0 seconds. Range based on correlation with therapeutic heparin activity range of 0.3 - 0.7 Units/mL. Current interpretive data was last revised on 2023. Blood 07/08/2025 8:21 PM CDT 07/08/2025 8:43 PM CDT us Ben Rodriguez Jr., MD LAB BLOOD ORDERABLES F inal Result Performing Organization Address [facility] de Phone Number [facility] [place] [address] * (ABNORMAL) Protime-INR (07/08/2025 8:21 PM CDT) PT 40.1(H) 10.2 - 13.5 sec INR 3.64(H) 0.90 - 1.20 [facility] Comment: Interpretive data Oral anticoagulant therapeutic ranges: Venous thromboembolism prophylaxis or treatment: 2.0-3.0 CARDIOLOGY Standard range: 2.0-3.0 High-intensity range: 2.5-3.5 Refer to indication-specific guidelines for appropriate target ranges for prosthetic heart valve replacement. Current interpretive data was last revised on 2019. Blood 07/08/2025 8:21 PM CDT 07/08/2025 8:43 PM CDT us Ben Rodriguez Jr., MD LAB BLOOD ORDERABLES F inal Result Performing Organization Address [facility] de Phone Number [facility] [place] [address] * (ABNORMAL) Troponin I high-sensitivity 2-hour (07/08/2025 8:14 PM CDT) Trop I hs 34(H) <=17 ng/L Comment: Interpretive Data For further hscTnI resources including the diagnostic algorithm and an aid in interpretation, copy and paste this link: https://bjhlab.testcatalog.org/show/hsTrop-[email or web address] Current Interpretive Data last revised 2020. Trop I hs delta 4 ng/L [facility] Trop I hs interp Insignificant [facility] Blood 07/08/2025 8:14 PM CDT 07/08/2025 8:34 PM CDT us Joe Nielson MD LAB BLOOD ORDERABLES F inal Result Performing Organization Address [facility] Co de Phone Number [facility] [place] [address] * ECG 12-LEAD (07/08/2025 6:51 PM CDT) Narrative [facility] - 07/08/2025 6:51 PM CDT Ben Rodriguez Jr., MD 07/08/2025 6:53 PM ECG 12 lead Date/Time: 07/08/2025 6:51 PM Performed by: Ben Rodriguez Jr., MD Authorized by: Joe Nielson MD Quality: Tracing quality: Limited by artifact Rate: ECG rate: 71 ECG rate assessment: normal Rhythm: Rhythm: sinus rhythm Ectopy: Ectopy: none QRS: QRS axis: Left QRS intervals: Wide Conduction: Conduction: abnormal Abnormal conduction: 1st degree and non-specific intraventricular conduction delay ST segments: ST segments: Non-specific Elevation: III, aVF, V2 and V3 T waves: T waves: inverted Inverted: AVR Q waves: Q waves: AVR, III, V1, V2 and V3 Other findings: Other findings: LVH Previous ECG: Previous ECG: Compared to current Date of previous EC02/06/2025 Comparison ECG info: 02/06/2025 Similarity: Changes noted Interpretation: Interpretation: non-specific Recommended Follow-up: Recommended follow up: further workup in the ED Joe Nielson MD ECG ORDERABLES Final Result Performing Organization Address City/[facility] Co de Phone Number [facility] * (ABNORMAL) Troponin I high-sensitivity series (baseline, 2hr, 4hr, 6hr) (07/08/2025 6:19 PM CDT) Trop I hs 30(H) <=17 ng/L Comment: Interpretive Data For further hscTnI resources including the diagnostic algorithm and an aid in interpretation, copy and paste this link: https://bjhlab.testcatalog.org/show/hsTrop-[email or web address] Current Interpretive Data last revised 2020. Blood 07/08/2025 6:19 PM CDT 07/08/2025 6:42 PM CDT Narrative [facility] - 07/08/2025 7:15 PM CDT Baseline has already been drawn, please draw the 2h at about 6:15pm Joe Nielson MD LAB BLOOD ORDERABLES F inal Result Performing Organization Address City/[facility] Co de Phone Number [facility] [place] [address] * CT Abdomen Pelvis W Contrast (07/08/2025 6:03 PM CDT) Anatomical Region Laterality Modality Body N/A Computed Tomogra phy 07/08/2025 6:27 PM CDT Impressions 07/08/2025 6:41 PM CDT 1. No acute abnormality in the abdomen or pelvis. 2. Skin thickening and mild ulceration along the sacrum, correlate with findings of cellulitis/decubitus ulcer. Additionally there is breakdown of the skin overlying the ischium and femurs which could represent developing decubitus ulcers. Recommend correlation with physical examination. Dictated by: Blu Vidal M.D. The radiology attending physician has personally reviewed this study, and had reviewed and/or edited this written report and agrees with it. Electronically signed by: Caesar Lopez M.D. Narrative 07/08/2025 6:41 PM CDT EXAMINATION: Computed tomography of the abdomen and pelvis with intravenous contrast HISTORY: Right lower quadrant abdominal pain, history of CKG, CVA, heart failure. History of recent urinary tract infection. TECHNIQUE: Transaxial computed tomographic images of the abdomen and pelvis were obtained with intravenous contrast according to the standard protocol after the uneventful administration of 90 mL Opti-Ray 350 intravenous contrast. COMPARISON: 07/26/2015 CT abdomen pelvis FINDINGS: The included bases of the lungs demonstrate some areas of atelectasis/scarring. No pleural effusion. The partially imaged heart size is enlarged with partially imaged atherosclerosis of the coronary vessels and aorta. The left ventricle is enlarged and there is mitral calcification. No pericardial effusion. Small hiatal hernia. No suspicious liver lesions. No intrahepatic or extrahepatic biliary ductal dilation. There is cholelithiasis without CT evidence of cholecystitis. Scattered calcified granulomas in the liver, likely sequela of old granulomatous disease. Pancreas is mildly atrophic. Spleen and adrenal glands are normal. The kidneys are atrophic. There are scattered renal cysts. The kidneys enhance symmetrically without hydronephrosis. The bladder is decompressed. There is colonic diverticulosis without diverticulitis. The stomach and duodenal sweep are normal. There is no bowel obstruction. There is no pneumoperitoneum. There is a calcified 2 cm soft tissue nodule in the right lower quadrant with associated fat-containing umbilical hernia. This may correspond to an area of fat necrosis. There is a fat-containing left femoral hernia. There is soft tissue thickening and stranding along the sacrum with small area of ulceration along the left lateral midline sacrum, correlate with physical examination for cellulitis. There are possible developing ischial and femoral surfaces well. The uterus is not seen. There are no suspicious adnexal masses. There is pelvic floor relaxation. There is a short structure measuring approximately 2 cm in length attaching near the terminal ileum, correlate with history of prior partial appendectomy. There are no secondary signs of appendicitis. No fluid collection in the abdomen or pelvis. There is moderate to severe atherosclerosis of the abdominal aorta without aneurysm. There is atherosclerosis of the celiac and superior mesenteric artery origins. There are degenerative changes in the sacrum and lumbar spine, progressed from prior and worst at L4-L5. No acute fracture. Procedure Note Caesar Lopez MD - 07/08/2025 EXAMINATION: Computed tomography of the abdomen and pelvis with intravenous contrast HISTORY: Right lower quadrant abdominal pain, history of CKG, CVA, heart failure. History of recent urinary tract infection. TECHNIQUE: Transaxial computed tomographic images of the abdomen and pelvis were obtained with intravenous contrast according to the standard protocol after the uneventful administration of 90 mL Opti-Ray 350 intravenous contrast. COMPARISON: 07/26/2015 CT abdomen pelvis FINDINGS: The included bases of the lungs demonstrate some areas of atelectasis/scarring. No pleural effusion. The partially imaged heart size is enlarged with partially imaged atherosclerosis of the coronary vessels and aorta. The left ventricle is enlarged and there is mitral calcification. No pericardial effusion. Small hiatal hernia. No suspicious liver lesions. No intrahepatic or extrahepatic biliary ductal dilation. There is cholelithiasis without CT evidence of cholecystitis. Scattered calcified granulomas in the liver, likely sequela of old granulomatous disease. Pancreas is mildly atrophic. Spleen and adrenal glands are normal. The kidneys are atrophic. There are scattered renal cysts. The kidneys enhance symmetrically without hydronephrosis. The bladder is decompressed. There is colonic diverticulosis without diverticulitis. The stomach and duodenal sweep are normal. There is no bowel obstruction. There is no pneumoperitoneum. There is a calcified 2 cm soft tissue nodule in the right lower quadrant with associated fat-containing umbilical hernia. This may correspond to an area of fat necrosis. There is a fat-containing left femoral hernia. There is soft tissue thickening and stranding along the sacrum with small area of ulceration along the left lateral midline sacrum, correlate with physical examination for cellulitis. There are possible developing ischial and femoral surfaces well. The uterus is not seen. There are no suspicious adnexal masses. There is pelvic floor relaxation. There is a short structure measuring approximately 2 cm in length attaching near the terminal ileum, correlate with history of prior partial appendectomy. There are no secondary signs of appendicitis. No fluid collection in the abdomen or pelvis. There is moderate to severe atherosclerosis of the abdominal aorta without aneurysm. There is atherosclerosis of the celiac and superior mesenteric artery origins. There are degenerative changes in the sacrum and lumbar spine, progressed from prior and worst at L4-L5. No acute fracture. IMPRESSION: 1. No acute abnormality in the abdomen or pelvis. 2. Skin thickening and mild ulceration along the sacrum, correlate with findings of cellulitis/decubitus ulcer. Additionally there is breakdown of the skin overlying the ischium and femurs which could represent developing decubitus ulcers. Recommend correlation with physical examination. Dictated by: Blu Vidal M.D. The radiology attending physician has personally reviewed this study, and had reviewed and/or edited this written report and agrees with it. Electronically signed by: Caesar Lopez M.D. Joe Nielson MD IMG CT PROCEDURES Nellie l Result * (ABNORMAL) Urinalysis reflex to microscopic (07/08/2025 4:51 PM CDT) Color, ur Straw Yellow Clarity, ur Clear Clear [facility] Specific gravity, ur 1.022 1.003 - 1.030 [facility] pH, urine 6.0 [facility] Comment: Interpretive Data U rine pH is affected by diet, medications, systemic acid-base disturbances, and renal tubular function. pH may affect urinary stone formation. For example, urine pH below 6.0 may help reduce the tendency for calcium phosphate stones and pH greater than 6.0 may reduce the tendency for uric acid stone formation. Source: [employer] Current Interpretive Data was last revised on 2017 Protein, ur ql 2+(A) Negative [facility] Glucose, ur ql 1+(A) Negative [facility] Ketones, ur Negative Negative [facility] Bilirubin, ur Negative Negative [facility] Blood, ur Negative Negative [facility] Urobilinogen, ur <2.0 <2.0 mg/dL [facility] Nitrite, ur Negative Negative [facility] Leukocyte esterase, ur Negative Negative [facility] UA reflex comment Reflex to microscopic UA will be performed. [facility] Urine, in and out catheter 07/08/2025 4:51 PM CDT 07/08/2025 4:57 PM CDT Ben Rodriguez Jr., MD LAB URINE ORDERABLES F inal Result Performing Organization Address [facility] Co de Phone Number [facility] [place] [address] * (ABNORMAL) Urinalysis, microscopic only (07/08/2025 4:51 PM CDT) WBC, ur 0-5 0 - 5 /HPF RBC, ur 0-2 0 - 2 /HPF [facility] Epithelial cells, squamous, ur 1-5 0 - 5 /HPF [facility] Mucous, ur Present(A) [facility] Urine, in and out catheter 07/08/2025 4:51 PM CDT 07/08/2025 4:57 PM CDT Ben Rodriguez Jr., MD LAB URINE ORDERABLES F inal Result Performing Organization Address City/[facility] Co de Phone Number [facility] [place] [address] * Urine culture Urine, in and out catheter (07/08/2025 4:51 PM CDT) Report Final Report: Less than 10,000 colonies/mL (clinically insignificant growth based on current clinical standards) Organism (CLINICALLY INSIGNIFICANT GROWTH [facility] Urine, in and out catheter 07/08/2025 4:51 PM CDT 07/08/2025 4:58 PM CDT Narrative [facility] - 07/09/2025 5:30 PM CDT Indications for Culture:->Urology patient Testing performed by [facility] Microbiology Laboratory ([phone]) Ben Rodriguez Jr., MD LAB MICROBIOLOGY - GEN ERAL ORDERABLES Final Result Performing Organization Address [facility] de Phone Number [facility] [place] [address] * N. gonorrhoeae/C. trachomatis Amplification Endocervical (07/08/2025 4:50 PM CDT) Pathologist [facility] C. trachomatis Not Detected Not Detected [facility] N. gonorrhoeae Not Detected Not Detected [facility] Comment: Interpretive Data This assay detects Chlamydia trachomatis and Neisseria gonorrhoeae by nucleic acid amplification testing (NAAT). This assay has been cleared by the [place] Food and Drug administration. The performance characteristics of this test have been verified by the [facility] Molecular Infectious Disease laboratory. The performance characteristics of this test have not been evaluated in individuals less than 14 years of age. Current Interpretive Data last revised 2023. Endocervical (None) 07/08/20 25 4:50 PM CDT 07/08/2025 5:04 PM CDT Ben Rodriguez Jr., MD LAB MICROBIOLOGY - GEN ERAL ORDERABLES Final Result Performing Organization Address [facility] de Phone Number [facility] [place] [address] [facility] * (ABNORMAL) Drugs of Abuse Screen, Urine without Confirmation (07/08/2025 4:20 PM CDT) Pathologist [facility] Amphetamine, ur Not Detected [facility] 500ng/mL Comment: Interpretive Data - Amphetamines: Samples containing greater than 500 ng/mL d-methamphetamine or other cross-reacting amphetamine compounds are reported as positive. Amphetamine immunoassays are subject to significant false positive rates due to cross-reactivity of non-amphetamine drugs. Confirmatory testing required for definitive results. Current Interpretive Data was last reviewed 2023. Barbiturates, ur Not Detected CutOff 200ng/mL [facility] Comment: Interpretive Data - Barbiturates: Samples containing greater than 200 ng/mL secobarbital or other cross-reacting barbiturate compounds are reported as positive. False positive and false negative results are possible. Confirmatory testing required for definitive results. Current Interpretive Data was last reviewed 2023. Benzodiazepines, ur Screen Positive, presumptive (A) CutOff 100ng/mL [facility] Comment: Interpretive Data - Benzodiazepines: Samples containing greater than 100 ng/mL nordiazepam or other cross-reacting compounds are reported as positive. False positive and false negative results are possible. Confirmatory testing required for definitive results. Current Interpretive Data was last reviewed 2023. Cannabinoids, ur Not Detected CutOff 50 ng/mL [facility] Comment: Interpretive Data - Cannabinoids: Samples containing greater than 50 ng/mL delta-9 THC -COOH or other cross- reacting compounds are reported as positive. False positive and false negative results are possible. Confirmatory testing required for definitive results. Current Interpretive Data was last reviewed 2023. Cocaine, ur Not Detected CutOff 150ng/mL [facility] Comment: Interpretive Data - Cocaine: Samples containing greater than 150 ng/mL benzoylecgonine or other cross- reacting compounds are reported as positive. False positive and false negative results are possible. Confirmatory testing required for definitive results. Current Interpretive Data was last reviewed 2023. Fentanyl, Ur Not Detected CutOff 5 ng/mL [facility] Comment: Interpretive Data - Fentanyl: Samples containing greater than 5 ng/mL norfentanyl, fentanyl, or other cross-reacting fentanyl compounds are reported as positive. False positive and false negative results are possible. Confirmatory testing required for definitive results. Current Interpretive Data was last reviewed 2024. Methadone, ur Not Detected CutOff 300ng/mL [facility] Comment: Interpretive Data - Methadone: Samples containing greater than 300 ng/mL d,l-methadone or other cross-reacting compounds are reported as positive. False positive and false negative results are possible. Confirmatory testing required for definitive results. Current Interpretive Data was last reviewed 2023. Opiates, ur Screen Positive, presumptive (A) CutOff 300ng/mL [facility] Comment: Interpretive Data - Opiates: Samples containing greater than 300 ng/mL morphine or other cross-reacting compounds are reported as positive. False positive and false negative results are possible. Confirmatory testing required for definitive results. Current Interpretive Data was last reviewed 2023. Oxycodone, ur Not Detected CutOff 100ng/mL [facility] Comment: Interpretive Data - Oxycodone: Samples containing greater than 100 ng/mL oxycodone or other cross-reacting compounds are reported as positive. False positive and false negative results are possible. Confirmatory testing required for definitive results. Current Interpretive Data was last reviewed 2023. Phencyclidine, ur Not Detected CutOff 25 ng/mL [facility] Comment: Interpretive Data - Phencyclidine: Samples containing greater than 25 ng/mL phencyclidine or other cross-reacting compounds are reported as positive. False positive and false negative results are possible. Confirmatory testing required for definitive results. Current Interpretive Data was last reviewed 2023. Urine Creatinine 135 mg/dL [facility] Comment: Interpretive Data Urine Creatinine: < 10 mg/dL is extremely dilute = or > 10 but < 20 mg/dL is dilute = or > 20 mg/dL is normal Current Interpretive Data was last revised on 2018. Urine 07/08/2025 4:20 PM CDT 07/08/2025 4:32 PM CDT Narrative [facility] - 07/08/2025 5:04 PM CDT Drug of Abuse screening is performed by immunoassay for medical purposes only. This is not to be used for Pain Management purposes. us Ben Rodriugez Jr., MD LAB URINE ORDERABLES F inal Result [facility] Department [place] [address] * Urine culture Urine, clean voided (07/08/2025 4:20 PM CDT) Report Final Report: Less than 100,000 colonies/mL (clinically insignificant growth based on current clinical standards) Organism (CLINICALLY INSIGNIFICANT GROWTH [facility] Urine, clean voided 07/08/2025 4:20 PM CDT 07/08/2025 4:29 PM CDT Narrative [facility] - 07/09/2025 4:54 PM CDT Indications for Culture:->Recent positive UA Testing performed by [facility] ([phone]) Ben Rodriguez Jr., MD LAB MICROBIOLOGY - GEN ERAL ORDERABLES Final Result Performing Organization Address City/[facility]/ZIP Co de Phone Number [facility] Department [place] [address] * POCT Rapid HIV Antibody Community Screening-Da Eligible (07/08/2025 4:18 PM CDT) [facility] Rapid HIV, POC Negative Negative Lot Number [id number] QC Control Line Acceptable Blood 07/08/2025 4:18 PM CDT Ben Rodriguez Jr., MD POINT OF CARE TEST ORD ERABLES Final Result * (ABNORMAL) Troponin I high-sensitivity (07/08/2025 4:12 PM CDT) [facility] Trop I hs 30(H) <=17 ng/L Comment: Interpretive Data For further hscTnI resources including the diagnostic algorithm and an aid in interpretation, copy and paste this link: [email or web address]://bjhlab.testcatalog.org/show/[email or web address] Current Interpretive Data last revised 2020. Blood 07/08/2025 4:12 PM CDT 07/08/2025 4:30 PM CDT Joe Nielson MD LAB BLOOD ORDERABLES F inal Result Performing Organization Address City/[facility]/ZIP Co de Phone Number [facility] [place] [address] * Lactate (07/08/2025 4:12 PM CDT) Lactate 0.9 0.7 - 2.0 mmol/L Blood 07/08/2025 4:12 PM CDT 07/08/2025 4:31 PM CDT us Ben Rodriguez Jr., MD LAB BLOOD ORDERABLES F inal Result Performing Organization Address City/[facility] Co de Phone Number [facility] [place] [address] * (ABNORMAL) eGFR (07/08/2025 4:12 PM CDT) eGFR 17(L) >=60 mL/min/1. 73 m2 Comment: Interpretive Data Reference Interval Normal >/= 90 mL/min/1.73m2 Mildly decreased* 60 - 89 mL/min/1.73m2 Mildly to moderately decreased 45 - 59 mL/min/1.73m2 Moderately to severely decreased 30 - 44 mL/min/1.73m2 Severely decreased 15 - 29 mL/min/1.73m2 Kidney Failure < 15 mL/min/1.73m2 *Relative to young adult level Estimated glomerular filtration rate is determined by the 2020 CKD-EPI equation recommended by the National Kidney Foundation (A Unifying Approach to GFR Estimation: Recommendations of the NKF-ASK Task Force on Reassessing the Inclusion of Race in Diagnosing Kidney Disease, JASN 2020). The CKD-EPI equation should not be used for patients with unstable renal function and has not been validated in children and those over 70. Current interpretive data was last reviewed 2021. Blood 07/08/2025 4:12 PM CDT 07/08/2025 4:31 PM CDT us Joe Nielson MD LAB BLOOD ORDERABLES F inal Result Performing Organization Address City/[facility]/ZIP Co de Phone Number [facility] [place] [address] * Differential, auto (07/08/2025 4:12 PM CDT) Neutrophil abs 4.62 1.50 - 6.50 K/cumm Imm gran abs 0.02 0.00 - 0.10 K/cumm [facility] Lymphocyte abs 1.00 0.80 - 3.30 K/cumm [facility] Monocyte abs 0.41 0.20 - 0.80 K/cumm [facility] Eosinophil abs 0.11 0.00 - 0.50 K/cumm [facility] Basophil abs 0.02 0.00 - 0.10 K/cumm [facility] Neutrophil pct 74.8 % [facility] Comment: Interpretive Data Percent cell count reference ranges are not reported, since discordance with absolute values may lead to misinterpretation of CBC data. Current Interpretive Data was last revised on 2018. Imm gran pct 0.3 % [facility] Comment: Interpretive Data Percent cell count reference ranges are not reported, since discordance with absolute values may lead to misinterpretation of CBC data. Current Interpretive Data was last revised on 2018. Lymphocyte pct 16.2 % [facility] Comment: Interpretive Data Percent cell count reference ranges are not reported, since discordance with absolute values may lead to misinterpretation of CBC data. Current Interpretive Data was last revised on 2018. Monocyte pct 6.6 % [facility] Comment: Interpretive Data Percent cell count reference ranges are not reported, since discordance with absolute values may lead to misinterpretation of CBC data. Current Interpretive Data was last revised on 2018. Eosinophil pct 1.8 % [facility] Comment: Interpretive Data Percent cell count reference ranges are not reported, since discordance with absolute values may lead to misinterpretation of CBC data. Current Interpretive Data was last revised on 2018. Basophil pct 0.3 % [facility] Comment: Interpretive Data Percent cell count reference ranges are not reported, since discordance with absolute values may lead to misinterpretation of CBC data. Current Interpretive Data was last revised on 2018. Blood 07/08/2025 4:12 PM CDT 07/08/2025 4:31 PM CDT us Joe Nielson MD LAB BLOOD ORDERABLES F inal Result Performing Organization Address City/[facility]/ZIP Co de Phone Number [facility] Department [place] [address] * Thyroid Function Mower (07/08/2025 4:12 PM CDT) [facility] TSH 1.63 0.30 - 4.20 mcIUnit/mL Blood 07/08/2025 4:12 PM CDT 07/08/2025 4:31 PM CDT Ben Rodriguez Jr., MD LAB BLOOD ORDERABLES F inal Result Performing Organization Address [facility] Co de Phone Number [facility] Department [place] [address] * (ABNORMAL) CBC with auto differential (07/08/2025 4:12 PM CDT) [facility] WBC 6.18 3.80 - 9.90 K/cumm Hgb 10.4(L) 11.9 - 15.5 g/dL [facility] Hct 32.7(L) 35.6 - 45.5 % [facility] Plt 101(L) 150 - 400 K/cumm [facility] MPV 11.4 9.1 - 12.3 fL [facility] RBC 3.03(L) 3.90 - 5.20 M/cumm [facility] MCV 107.9(H) 81.3 - 96.4 fL [facility] MCH 34.3(H) 27.1 - 33.3 pg [facility] MCHC 31.8(L) 32.3 - 35.7 g/dL [facility] RDW CV 16.6(H) 11.1 - 14.9 % [facility] RDW SD 65.9(H) 35.7 - 48.1 fL [facility] NRBC abs 0.00 0.00 - 0.01 K/cumm [facility] Blood 07/08/2025 4:12 PM CDT 07/08/2025 4:31 PM CDT Joe Nielson MD LAB BLOOD ORDERABLES F inal Result Performing Organization Address [facility] de Phone Number [facility] [place] [address] * RPR Blood (07/08/2025 4:12 PM CDT) RPR Nonreactive Nonreactive Blood 07/08/2025 4:12 PM CDT 07/08/2025 4:31 PM CDT us Ben Rodriguez Jr., MD LAB MICROBIOLOGY - GEN ERAL ORDERABLES Final Result Performing Organization Address [facility] de Phone Number [facility] Department [place] [address] * Lipase (07/08/2025 4:12 PM CDT) Lipase 26 10 - 99 Units/L Blood 07/08/2025 4:12 PM CDT 07/08/2025 4:31 PM CDT Joe Nielson MD LAB BLOOD ORDERABLES F inal Result Performing Organization Address [facility] de Phone Number [facility] [place] [address] * Creatine kinase (CK), total (07/08/2025 4:12 PM CDT) CK 53 30 - 200 Units/L Blood 07/08/2025 4:12 PM CDT 07/08/2025 4:31 PM CDT Ben Rodriguez Jr., MD LAB BLOOD ORDERABLES F inal Result [facility] [place] [address] * (ABNORMAL) Comprehensive metabolic panel (07/08/2025 4:12 PM CDT) Sodium 143 135 - 145 mmol/L Potassium, pl 4.6 3.3 - 4.9 mmol/L [facility] Chloride 112(H) 97 - 110 mmol/L [facility] CO2 25 22 - 32 mmol/L [facility] Anion gap 6 2 - 15 mmol/L [facility] BUN 33(H) 6 - 25 mg/dL [facility] Creatinine 2.80(H) 0.60 - 1.10 mg/dL [facility] Glucose 131 70 - 199 mg/dL [facility] Comment: Interpretive Data Fasting glucose >/= 126 mg/dl is diagnostic for diabetes. Fasting is defined as no caloric intake for at least 8 hours. Fasting glucose between 100 mg/dl to 125 mg/dl is diagnostic of prediabetes. In a patient with classic symptoms of hyperglycemia or hyperglycemic crisis, a random glucose >/= 200 mg/dl is diagnostic for diabetes. In the absence of unequivocal hyperglycemia, results should be confirmed by repeat testing. The classification and Diagnosis of Diabetes Diabetes Care 202; 46: S19-S40. Current interpretive data was last revised 2022. Calcium 8.7 8.5 - 10.3 mg/dL [facility] Bilirubin, total 0.3 0.1 - 1.2 mg/dL [facility] Protein, pl 6.5 6.5 - 8.5 g/dL [facility] Albumin 3.5 3.5 - 5.0 g/dL [facility] Alk phos 54 40 - 130 Units/L [facility] ALT 15 7 - 45 Units/L [facility] AST 23 10 - 45 Units/L [facility] Blood 07/08/2025 4:12 PM CDT 07/08/2025 4:31 PM CDT Joe Nielson MD LAB BLOOD ORDERABLES F inal Result Performing Organization Address [facility] Co de Phone [facility] [place] [address] * POCT glucose (07/08/2025 2:19 PM CDT) Glucose, POC 197 70 - 199 mg/dL Blood 07/08/2025 2:19 PM CDT 07/08/2025 2:19 PM CDT Notinfile Unknown LAB POCT ORDERABLES - DEVICE F inal Result Performing Organization Address [facility] de Phone Number [facility] [place] [address] * SCAN - LABS (07/03/2025) Provider Scanning Final Result * (ABNORMAL) Protime-INR (07/03/2025) INR 2.70(A) 0.90 - 1.10 EXTERNAL LAB Blood Result [facility] Historical Provider LAB BLOOD ORDERABLES Nellie l Result Performing Organization Address [facility] Co de Phone Number EXTERNAL LAB * (ABNORMAL) Protime-INR (05/20/2025) INR 2.20(A) 0.90 - 1.10 EXTERNAL LAB Blood Historical Provider LAB BLOOD ORDERABLES Edit ed Result - Final Performing Organization Address [facility]/ZIP Co de Phone Number EXTERNAL LAB * (ABNORMAL) Protime-INR (05/03/2025) INR 3.00(A) 0.90 - 1.10 EXTERNAL LAB Blood Historical Provider MD LAB BLOOD ORDERABLES Edit ed Result - Final Performing Organization Address City/[facility]/ZIP Co de Phone Number EXTERNAL LAB * SCAN - LABS (04/26/2025) Provider Scanning Final Result * (ABNORMAL) Protime-INR (04/26/2025) Pathologist [facility] INR 4.60(A) 0.90 - 1.10 EXTERNAL LAB Blood [facility] Provider MD LAB BLOOD ORDERABLES Nellie l Result Performing Organization Address [facility] Co de Phone Number EXTERNAL LAB * (ABNORMAL) Hemoglobin A1c (07/19/2015 8:16 AM CDT) Pathologist [facility] Hemoglobin A1c % 7.5(H) 4.8 - 5.9 % 07/19/2015 8:38 AM [facility] [employer] HISTORICAL RESULTS Comment: [place] [employer] recommends that the goal of therapy should be an A1C hemoglobin of <7%. Reevaluate the treatment regimen in patients with an A1C >8%. 07/19/2015 8:16 AM CDT 07/19/2015 8:19 AM CDT Result [facility] Max Willson MACHINE HEDDLE CLEANER LAB BLOOD ORDERABLES Final Resu lt Performing Organization Address [facility] de Phone Number [employer] HISTORICAL RESULTS * (ABNORMAL) TNI with LIPID PANEL (07/18/2015 10:10 AM CDT) [facility] Troponin I < 0.300 0.000 - 0.300 ng/mL 07/18/2015 10:41 AM [facility] [employer] HISTORICAL RESULTS Comment: Reference using YENI Chemiluminescence Negative: Repeat in 4-6 hours as indicated. Triglycerides 240(H) 0 - 199 mg/dL 07/18/2015 10:44 AM [facility] [employer] HISTORICAL RESULTS Comment:12 hr pc highly lenard mmended for Triglyceride Cholesterol 194 0 - 199 mg/dL 07/18/2015 10:[address] [facility]ORICAL RESULTS Comment: Borderline: 200-239 High Risk: >239 HDL Cholesterol 47 40 - 60 mg/dL 07/18/2015 10:[address] [facility] HISTORICAL RESULTS Comment: Major Risk < 40 mg/dL Moderate Risk 40-60 mg/dL Negative Risk > 60 mg/dL LDL Cholesterol, Calc 99 0 - 130 mg/dL 07/18/2015 10:[address] [facility] HISTORICAL RESULTS Comment:High Risk > 159 mg/d L Cholesterol/HDL Ratio 4.1 07/18/2015 10:[address] [facility] HISTORICAL RESULTS Comment: Cholesterol / HDL Ratio 3.5:1 or less is desirable. Cholesterol / HDL Ratio greater than 5:1 is considered higher risk for developing heart disease. 07/18/2015 10:1 0 AM CDT 07/18/2015 10:15 AM CDT Kole Mike MD LAB BLOOD ORDERABLES Fin al Result Performing Organization Address City/State/[facility] Co de Phone Number [facility] HISTORICAL RESULTS from Last 3 Months or Most Recently Relevant to Health Maintenance Additional Health Concerns Active Problems Noted Date Diagnosed Date Initial Follow-Up Appointment 07/15/2025 Follow-Up with an Appropriate Specialist Needed 07/15/2025 Insurance [facility] MEDICARE ADVANTAGE [facility] MEDIC[facility] Address: [facility] [address] [place] [address] [facility] Address: [address] [place] [id number] [facility] MEDICARE ADVANTAGE [facility] Address: [address] [address] [place] [address] Advance Directives For more information, please contact: [phone] * Full Code (Latest Code Status on File) Date Activated Date Inactivated Comments 07/09/2025 7:31 AM 07/13/2025 10:52 PM Care Teams Controls Engineer Relationship Specialty Start Date End Date Oh Goode MD PCP - General 05/28/13 Bernie Rollins, RN [address] [facility] [address] [place], [place] [id number] [employer] Outpatient Life Sciences Director 07/15/25
== END 2025-07-18 11:24 | disposition home or self-care (01) ==
PROVIDERS: PCP Family Medicine; Visit Provider Internal Medicine Nephrology
DX: J44.9 Chronic obstructive pulmonary disease, unspecified (principal); N18.4 Chronic kidney disease, stage 4 (severe)
CPT/HCPCS: 36415; 80048; 85027; 85055

== ENCOUNTER 2025-09-04 15:24 | Outpatient (CLI) | payer MEDICARE, SELFPAY ==
--- OUTSIDE RECORDS SUMMARY | 2025-09-04 15:00 | XMS_ITS | Encounter Summary ---
Author Organization [facility] Address [address] [place] [address] Care Team Providers Care Call Center Support Representative Name Role Phone Unavailable Primary Care Provider Unavailabl e Reason for Visit * Reason Comments Establish Care Encounter Details Date Type Department Care Team (Late st Contact Info) Description 09/04/2025 3:00 PM CDT Office Visit [facility] Oncology and Hematology - [place] [address] [facility] [address] [place] [address] Nilo Green MD [address] [facility] [address] [place] [address] Chronic anemia (Primary Dx) Social History Tobacco Use Types Packs/Day Years Used Date Smoking Tobacco: Never Assessed Comments Unknown Sex and Gender Information Value Date Recorded Sex Assigned at Not on file Legal Sex Female 11:23 AM CDT Gender Identity Not on file Sexual Orientation Not on file documented as of this encounter Last Filed Vital Signs Vital Sign Reading Time Taken Comments Blood Pressure - - Pulse 85 09/04/2025 2:51 PM CDT Temperature 35.8 C (96.4 F) 09/04/2025 2:51 PM CDT Respiratory Rate - - Oxygen Saturation 90% 09/04/2025 2:51 PM CDT Inhaled Oxygen Concentration - - Weight 94.2 kg (207 lb 9.6 oz) 09/04/2025 2:51 P M CDT Height - - Body Mass Index - - documented in this encounter Progress Notes * iNlo Green MD - 09/04/2025 2:57 PM CDT Hematology-oncology consult Note Requesting Physician Primary Care Physician No primary care provider on file. Problem list There is no problem list on file for this patient. Previous TREATMENT ? Measurable Disease ? Reason for Visit Sarah Alvarado is a 80 y.o. female who was referred for consultation for chronic anemia. History of present illness This is a 80-year-old obese female with multiple comorbidities ncluding atrial fibrillation on chronic anticoagulation with Xarelto along with congestive heart failure, hypertension, diabetes and chronic kidney disease referred to me for chronic anemia. She has occasional hemorrhoidal bleeding. Denies being a vegetarian. She lost 40 pound weight. According the patient her last colonoscopy was more than 2 years ago and that was reportedly normal. She is not taking any iron supplements.She is taking vitamin B12 on a daily basis. Complain of tiredness and fatigue. Denies any new lumpsbumps or lymphadenopathy. Denies any other new complaints. Past Medical History No past medical history on file. Congestive heart failure Chronic kidney stage IV disease Atrial fibrillation Type II diabetes Hypertension Surgical History No past surgical history on file. Medications Current Outpatient Medications Medication Sig Dispense Refill allopurinoL (ZYLOPRIM) 100 mg tablet Take 100 mg by mouth daily. atorvastatin (LIPITOR) 80 mg tablet Take 80 mg by mouth daily. HYDROcodone-acetaminophen (XODOL) 10-300 mg Tablet Take 1 Tablet by mouth every 4 hours as needed for Pain, Moderate. acetaminophen (TYLENOL) 500 mg tablet Take 500 mg by mouth every 6 hours as needed. No current facility-administered medications for this visit. Allergies Allergies Allergen Reactions Ceftriaxone Anaphylaxis Clindamycin Anaphylaxis Penicillin Hives Morphine Nausea and Vomiting Nitroglycerin Headache Immunizations: There is no immunization history on file for this patient. Family History No family history on file. Social History Social History Tobacco Use Smoking status: Not on file Smokeless tobacco: Not on file Substance Use Topics Alcohol use: Not on file Review of Systems Constitutional: Patient did not mention fever; no night sweats; no anorexia; 40 pound weight loss, complain of tiredness and fatigue NEENT: Patient did not mention headache; no change in vision; no change in hearing; no sore throat;no dysphagia Respiratory: Patient did not mention shortness of breath; no pleuritic chest pain; no cough; no hemoptysis Cardiac: Patient did not mention cardiac-like chest pain; no palpitations; no orthopnea; no PND; noDOE Breasts: Patient did not mention tenderness; no masses GI: Patient did not mention abdominal pain; no nausea; no vomiting; no diarrhea; intermittent hemorrhoidal bleeding : Patient did not mention dysuria; no frequency; no hesitancy; no hematuria REFINERY OPERATOR COKING: Musculosketetal: Patient did not mention bone pain; no arthralgia; no joint swelling; no myalgia; Skin: Patient did not mention pruritis; no rash; no petechiae; no ecchymoses Endocrine: Patient did not mention polydipsia; no polyuria; no unusual weight gain Neuro: Patient did not mention headache; no change in vision; no sensory changes; no muscle weakness; no confusion; no seizures Psych: Patient did not mention anxiety; no depression; Physical Exam Vitals: As per nursing note Constitutional: Well developed, well nourished, no acute distress, non-toxic appearance Teeth and gum. No signs of infection or swelling. Eyes: PERRL, conjunctiva normal HEENT: Atraumatic, external ears normal, nose normal, oropharynx moist, no pharyngeal exudates. no sinus tenderness Neck- normal range of motion, no tenderness, supple Respiratory: No respiratory distress, normal breath sounds, no rales, no wheezing Cardiovascular: Normal rate, normal rhythm, no murmurs, no gallops, no rubs GI: Soft, nondistended, normal bowel sounds, nontender, no splenomegaly, no hepatomegaly, no mass, no rebound, no guarding : No costovertebral angle tenderness Musculoskeletal: No edema, no tenderness, no deformities. Back- no tenderness Integument: Well hydrated, no rash, Digits and nails inspection normal Lymphatic: No lymphadenopathy noted Neurologic: Alert & oriented x 3, CN 2-12 normal, normal motor function, normal sensory function, no focal deficits noted Psychiatric: Speech and behavior appropriate ? labs No results found for this or any previous visit (from the past 24 hours). Labs from July 18, 2025 showed WBC 4.1 hemoglobin 8.5 MCV 112 platelet 98,000 creatinine 2.3 GFR 21 Pathology ? Imaging & Other Studies Performance Status? Assessment / Plan: ? Chronic anemia. Patient is a 80-year-old obese female with multiple comorbidities including chronic kidney stage IV disease has been managed by Dr. Carrillo along with history of atrial fibrillation, congestive heart failure, hypertension and type 2 diabetes has been dealing with anemia for more than 5 years duration. She has been complaining of tiredness and fatigue. Denies any chest pain and shortness of breath. She has occasional hemorrhoidal bleeding. Denies any previous stomach surgeries. Denies being a vegetarian. She is quite symptomatic with tiredness and fatigue. Currently she is taking vitamin B12 on a daily basis. I have discussed the differential diagnosis of anemia which includes anemia of chronic kidney disease, possibility of bone marrow disorder like myelodysplastic syndrome had nutritional deficiencies like iron and vitamin B12 deficiency. I will order the workup that will include CBC with differential, CMP, iron panel, soluble transferrin receptor, vitamin B12 level, methylmalonic acid level and serum protein electrophoresis with immunofixation. I do not see need for bone marrow biopsy testing at this time. My plan will be to start Procrit 20,000 units on a biweekly basis as long as the hemoglobin is less than 10. I will discuss the findings with her next week. I have answered all the questions to patient and the daughter satisfaction. Hyperlipidemia. Patient is on Lipitor. Congestive heart failure. Patient is on Lasix and amiodarone. Atrial fibrillation. She is on Xarelto. Chronic kidney stage IV disease. She has been managed by Dr. Carrillo. Thank you very much for allowing me to participate in Sarah Alvarado's evaluation and management.Please feel free to contact if I can be of any further assistance in your patient???s care requiring hematology or oncology evaluation. Sincerely, ? ? Nilo Green M.D. cell TOBACCO COUNSELING She is not a tobacco/nicotine user. Nilo Green MD ,09/04/2025 3:23 PM ? Total time spent 60 minutes, two third of the total time spent counseling patient [id number]. CC:? documented in this encounter Plan of Treatment Upcoming Encounters Date Type Department Care Team (Late st Contact Info) Description 09/16/2025 4:30 PM CERTIFIED MEDICAL CODING SPECIALIST Telephone Check Up [facility] Oncology and Hematology - [place] [address] [facility] [address] [place] [address] Nilo Green MD [facility] [address] [place] [address] Scheduled Orders Name Type Priority Associated Diagnoses Orde r Schedule CBC WITH DIFFERENTIAL Lab Stat Chronic anemia Expected: 09/04/2025, Expires: 09/04/2026 COMPREHENSIVE METABOLIC PANEL Lab Stat Chronic anemia Expected: 09/04/2025, Expires: 09/04/2026 FERRITIN Lab Routine Chronic anemia Expected: 09/04/2025, Expires: 09/04/2026 IRON, TIBC, AND PERCENT SATURATION Lab Routine Chronic anemia Expected: 09/04/2025, Expires: 09/04/2026 METHYLMALONIC ACID Lab Routine Chronic anemia Expected: 09/04/2025, Expires: 09/04/2026 VITAMIN B12 AND FOLATE Lab Routine Chronic anemia Expected: 09/04/2025, Expires: 09/04/2026 TRANSFERRIN RECEPTOR TFR SOLUBLE Lab Routine Chronic anemia Expected: 09/04/2025, Expires: 09/04/2026 PROTEIN ELECTROPHORESIS W/REFLEX,SERUM Lab Routine Chronic anemia Expected: 09/04/2025, Expires: 09/04/2026 documented as of this encounter Visit Diagnoses Diagnosis Chronic anemia- Primary Anemia, unspecified documented in this encounter
[2025-09-04 15:41] LABS: Hematocrit 31.7 % (37.0-47.0); Hemoglobin 9.7 g/dL (12.0-15.0); Immature Granulocyte Percent A 0.2 % (0-0.5); Lymphocytes Absolute Auto 0.97 K/mm3 (0.9-3.2); Mean Corpuscular HGB Conc 30.6 g/dl (32-36); Mean Corpuscular Hemoglobin 33.4 pg (26-34); Mean Corpuscular Volume 109.3 fl (80-100); Nucleated Red Blood Cells Absolute Auto 0.000 K/mm3 (0.0-0.012); Nucleated Red Blood Cells Perc 0.0 % (0.0-0.2); Platelet Count Result 157 k/mm3 (150-375); Red Blood Count 2.90 M/mm3 (4.2-5.4); White Blood Count 4.7 K/mm3 (4.5-10.0)
[2025-09-04 16:45] LABS: Alanine Aminotransferase 14 U/L (6-35); Albumin Level 3.5 g/dL (3.5-5.1); Alkaline Phosphatase 58 U/L (38-126); Anion Gap 7 mmol/L (4-12); Aspartate Amino Transferase 21 U/L (14-36); Bilirubin,Total 0.5 mg/dL (0.2-1.3); Blood Urea Nitrogen 34 mg/dL (7-17); Calcium 8.6 mg/dL (8.4-10.2); Carbon Dioxide 27 mmol/L (22-30); Chloride 107 mmol/L (98-107); Estimated Glomerular Filt Rate 17; Glucose 127 mg/dL (65-110); Potassium 4.1 mmol/L (3.4-5.0); Sodium 141 mmol/L (137-145); Total Protein 6.4 g/dL (6.3-8.2)
[2025-09-04 16:46] LABS: Iron 51 ug/dL (37-170)
[2025-09-04 16:55] LABS: Percent Iron Saturation 19 % (20-50)
--- OUTSIDE RECORDS SUMMARY | 2025-09-04 17:28 | XMS_ITS | Clinical Summary ---
Author Organization [facility] Address [address] [place] [address] Care Team Providers Care Brand Activation Manager Name Role Phone Unavailable Primary Care Provider Unavailabl e Allergies Active Allergy Reactions Criticality Noted Date Comments Ceftriaxone Anaphylaxis High 09/04/2025 Clindamycin Anaphylaxis High 09/04/2025 Morphine Nausea and Vomiting Low 09/04/2025 Nitroglycerin Headache Low 09/04/2025 Penicillin Hives High 09/04/2025 Medications allopurinoL (ZYLOPRIM) 100 mg tablet Take 100 mg by mouth daily. Active atorvastatin (LIPITOR) 80 mg tablet Take 80 mg by mouth daily. Active HYDROcodone-aceta minophen (XODOL) 10-300 mg Tablet Take 1 Tablet by mouth every 4 hours as needed for Pain, Moderate. Active acetaminophen (TYLENOL) 500 mg tablet Take 500 mg by mouth every 6 hours as needed. Active sennosides (SENOKOT) 8.6 mg tablet Take 8.6 mg by mouth daily. Active amiodarone (CORDARONE) 200 mg tablet Take 200 mg by mouth daily. Active albuterol (PROVENTIL,VENTOL IN) 0.63 mg/3 mL Solution for Nebulization Take 0.63 mg by inhalation one time only. Active aspirin (ECOTRIN EC) 81 mg Tablet, Delayed Release (E.C.) Take 81 mg by mouth daily. Active FENOFIBRATE ORAL Take by mouth. Active carvediloL (COREG) 12.5 mg tablet Take 12.5 mg by mouth 2 times daily with meals. Active Cholecalciferol, Vitamin D3, 50 mcg (2,000 unit) Capsule Take by mouth. Activ e gabapentin (NEURONTIN) 100 mg capsule Take 100 mg by mouth. Active ondansetron (ZOFRAN) 4 mg Tablet Take 4 mg by mouth every 8 hours as needed for Nausea/Emesis. Active pantoprazole (PROTONIX) 40 mg Tablet, Delayed Release (E.C.) Take 40 mg by mouth daily. Active rivaroxaban (XARELTO) 15 mg Tablet Take 15 mg by mouth. Active Active Problems No known active problems Encounters Date Type Department Care Team Description 09/04/2025 3:00 PM CDT Office Visit [facility] Oncology and Hematology [facility] [address] [place] [address] Nilo Green MD Chronic anemia (Primary Dx) from Last 3 Months Social History Tobacco Use Types Packs/Day Years [...] - - Body Mass Index - - Plan of Treatment Upcoming Encounters Date Type Department Care Team (Late st Contact Info) Description 09/16/2025 4:30 PM INDUSTRY CONSULTANT Telephone Check Up [facility] Oncology and Hematology [facility] [address] [place] [address] Nilo Green MD [address] [place] [address] Health Maintenance Due Date Last Done Comments ZOSTER VACCINE (1 of 2) 1996 OSTEOPOROSIS SCREENING 2011 RSV VACCINE (60+ or ) (1 - 1-dose 75+ series) 2021 Medicare Advantage (SD) Preventative Visit/Annual Wellness Visit 11/07/2024 DTAP/TDAP/TD VACCINES (2 - T d or Tdap) 10/05/2026 10/05/2016 PNEUMOCOCCAL VACCINE 50+ YEARS Completed 08/31/2024 , 10/02/2019 INFLUENZA VACCINE Completed 08/19/2025, , 08/11/2022, Additional history exists Insurance [facility] [id number]
--- OUTSIDE RECORDS SUMMARY | 2025-09-04 17:28 | XMS_ITS | Encounter Summary ---
Author Organization [facility] Address [address] [place] [address] Care Team Providers Care Chief Of Police Name Role Phone Oh Goode MD Primary Care Provider [phone] Bernie Rollins RN Unavailable [phone] New Bejarano MD Primary Care Provid er Encounter Details Date Type Department Care Team (Late st Contact Info) Description 07/03/2025 Orders Only [facility] Information Management [address] [place] [id number] Scanning, Provider Social History Tobacco Use Types Packs/Day Years Used Date Smoking Tobacco: Never Smokeless Tobacco: Never Alcohol Use Standard Drinks/Week Comments Yes 0 (1 standard drink = 0.6 oz pur e alcohol) Comments Unknown Sex and Gender Information Value Date Recorded Sex Assigned at Not on file 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 Gender Identity Not on file Sexual Orientation Not on file documented as of this encounter Plan of Treatment Scheduled Procedures Name Priority Associated Diagnoses Date/Ti me COLONOSCOPY Open Access Abdominal pain Bilious vomiting with nausea ESOPHAGOGASTRODUODENOSCOPY Open Access Abdominal pain Bilious vomiting with nausea documented as of this encounter Procedures Procedure Name Priority Date/Time Associated Diagnosis Comments SCAN - LABS 07/03/2025 documented in this encounter Results * SCAN - LABS (07/03/2025) us Provider Scanning Final Result documented in this encounter Visit Diagnoses Not on filedocumented in this encounter Additional Health Concerns Infection Onset Date Last Indicated Resolved Time Ring Surveillance: C. auris 08/16/2025 08/16/2025 08/16/2025 8:16 AM CDT Ring Surveillance: CRE 08/21/2025 08/21/202508/24 7:54 AM CDT documented as of this encounter Care Teams Chief Of Police Relationship Specialty Start Date End Date Oh Goode MD PCP - General 05/28/13 08/14/25 New Bejarano MD [address] [place] [address] PCP - General Internal Medicine 08/15/25 Bernie Rollins, RN [address] [facility] [address] [place] [id number] [facility] Outpatient Band Singer 07/15/25 08/11/25 documented as of this encounter
--- OUTSIDE RECORDS SUMMARY | 2025-09-04 17:28 | XMS_ITS | Clinical Summary ---
Author Organization [facility] Address [address] [place] [address] Care Team Providers Care Manager Chemical Name Role Phone Oh Goode MD Primary Care Provider [phone] Allergies Active Allergy Reactions Criticality Noted Date Comments Tape Rash Low 06/25/2025 Clindamycin Anaphylaxis High 01/26/2020 Morphine Vomiting 03/27/2020 [...] vitamin D2, ergocalciferol, (VITAMIN D, ERGOCALCIFEROL, ) 12142 UNITS capsule Take 1 capsule (50,000 Units [...] total) by mouth 3 (three) times a week. /Tue/ Active warfarin (COUMADIN) 2 MG tablet Take 1 tablet (2 mg total) by mouth Every M// at 5pm. Active Active Problems Problem Noted Date Diagnosed Date Supratherapeutic INR 01/16/2025 Pneumonia 11/18/2024 Encounters Date Type Department Care Team Description 06/25/2025 6:12 PM CDT - 06/25/2025 10:52 PM CDT Emergency [facility] Emergency Room [id number] [place], [place] [id number] Ofe Belle MD Medical Problem Discharge Disposition: Home or Self Care (Routine Discharge) 06/25/2025 Travel from Last 3 Months Immunizations Immunization [...] from your doctor or pharmacy? Sometimes 01/16/2025 [facility] Utilities Answer Date Recorded In the past 12 months has e [employer], gas, oil, or water [employer] threatened to shut off services in your [...] or ex-partner? No 01/16/2025 Social Connection and Isolation Panel Answer Date Recorded In a typical week, how many times do you talk on the phone with family, friends, or neighbors? Three times a week 01/16/2025 How often do you get togethe r with friends or relatives? Three times a week 01/16/2025 How often do you attend chur or roman catholic services? More than 4 times per year 01/16/2025 Do you belong to any clubs o r organizations such as islam groups, unions, fraternal or athletic groups, or [...] any time in the past 12 m [facility], were you homeless or living in a alf (including now)? No 01/16/2025 Comments No Sex and Gender Information Value Date Recorded Sex Assigned at Female 11/20/2024 10:33 AM DEPUTY DIRECTOR OF NURSING Legal Sex Female 4:30 PM CDT Gender Identity Female 11/20/2024 10:33 AM DEPUTY DIRECTOR OF NURSING Sexual Orientation Not on file Last Filed Vital Signs Vital Sign Reading Time Taken Comments Blood Pressure 157/88 06/25/2025 10:00 PM CDT Pulse 82 06/25/2025 10:00 PM CDT Temperature 36.5 C (97.7 F) 06/25/2025 10:00 PM CDT Respiratory Rate 18 06/25/2025 10:00 PM CDT Oxygen Saturation 94% 06/25/2025 10:00 PM CDT Inhaled Oxygen Concentration - - Weight 84.8 kg (187 lb) 06/25/2025 6:25 PM CDT Height 167.6 cm (5' 6) 06/25/2025 6:25 PM CDT Body Mass Index 30.18 06/25/2025 6:25 PM CDT Plan of Treatment Health Maintenance Due Date Last Done Comments Hepatitis C 1964 Zoster Vaccines (1 of 2) 1996 Annual Medicare Wellness Visit 2011 Dexa Scan (General) 2011 COVID-19 Vaccine ( season) 2025 04/23/2022, 08/25/2021, 02/01/2021, Additional history exists Influenza Adult (#1) 2025 08/31/2024, 09/21/2023, 08/11/2022, Additional history exists DTaP, Tdap and Td Vaccines (2 - Td or Tdap) 10/05/2026 10/05/2016 Pneumococcal Vaccine: 50+ Years Completed 08/31/2024, 10/02/2019 RSV Immunization or 60+ Years Completed 09/24/2024 PHQ-2 (Physician [place]) Completed 01/16/2025 Hepatitis A Vaccines Aged Out No long er eligible based on patient's age to complete this topic Meningococcal B Vaccine Aged Out No l [...] discharge from hospital Lifestyle No 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 Procedure Name Priority Date/Time Associated Diagnosis Comments CT CHEST WO CON STAT 06/25/2025 9:[address] ABD+PEL WO CON STAT 06/25/2025 9: [address] HEAD WO CON STAT 06/25/2025 9:49 PM CDT URINALYSIS, AUTO, COMPLETE STAT 06/25/2025 8:00 PM CDT ECG 12-LEAD Routine 06/25/2025 6:47 PM CDT LIPASE STAT 06/25/2025 6:43 PM CDT PHOSPHORUS, INORGANIC PHOSPHATE STAT 06/25/2025 6:43 PM CDT MAGNESIUM STAT 06/25/2025 6:43 PM CDT COMPREHENSIVE METABOLIC PANEL STAT 06/25/2025 6:43 PM CDT CBC W/DIFF AUTOMATED STAT 06/25/2025 6:43 PM CDT POCT GLUCOSE - DOCKED DEVICE Routine 06/25/2025 6:23 PM CDT from Last 3 Months Results * CT CHEST WO CON (06/25/2025 9:49 PM CDT) Anatomical Region Laterality Modality Chest Computed Tomogra phy 06/25/2025 10:3 1 PM CDT Impressions 06/25/2025 10:34 PM CDT IMPRESSION: 1. No acute abnormality is seen within the chest 2. No lymphadenopathy is seen within chest. 3. Cardiomegaly with extensive coronary calcific atherosclerosis. 4. Stable chronic nonactionable findings, as detailed above 5. Small hiatal hernia. Ordered By: OFE BELLE Interpreted By: Roselia Kwok MD, 06/25/2025 10:31 PM Narrative 06/25/2025 10:34 PM CDT [facility] [address] [place] [address] PROCEDURE: CT CHEST WO CON. HISTORY: Weight loss. TECHNIQUE: Non-contrast helical thoracic CT was performed. A dose lowering technique was used for this procedure, which may include, but is not limited to, dose reduction technique, automated exposure control, the use of iterative reconstruction, and ALARA (As Low As Reasonably Achievable) / Image Gently techniques. COMPARISON: CT chest without contrast, 11/26/2024. FINDINGS: Support Devices: None. Heart/Pericardium/Great Vessels: Cardiac size is enlarged. There is extensive calcific coronary artery atherosclerosis. There is no pericardial effusion. There is moderate calcific thoracic aortic and branch vessel atherosclerosis. The main pulmonary artery is dilated measuring up to 3.3 cm.. The descending thoracic aorta measures up to 3.47 m. Pleural Spaces: The pleural spaces are clear. Mediastinum/Rita: There is no mediastinal or hilar lymph node enlargement. Small hiatal hernia. Neck Base/Chest Wall/Diaphragm/Upper Abdomen: Stable peripherally calcified 14 mm left thyroid lobe nodule. There is no supraclavicular or axillary lymph node enlargement. There is a exophytic 4.0 cm right renal cyst. Cholelithiasis. The kidneys are atrophic. Limited, non-contrast imaging through the upper abdomen is within normal limits. Mild degenerative change is present in the spine. Lungs/Central Airways: The trachea and central airways are clear normal in caliber. There is bilateral dependent atelectasis. No focal consolidation. No suspicious pulmonary nodules are identified. There is bilateral bronchiectasis. Stable cystic changes within the posterior right upper lobe, unchanged. Procedure Note Roselia Kwok MD - 06/25/2025 [facility] [address] [place] [id number] PROCEDURE: CT CHEST WO CON. HISTORY: Weight loss. TECHNIQUE: Non-contrast helical thoracic CT was performed. A dose lowering technique was used for this procedure, which may include,but is not limited to, dose reduction technique, automated exposurecontrol, the use of iterative reconstruction, and ALARA (As Low AsReasonably Achievable) / Image Gently techniques. COMPARISON: CT chest without contrast, 11/26/2024. FINDINGS: Support Devices: None. Heart/Pericardium/Great Vessels: Cardiac size is enlarged. There is extensive calcific coronary artery atherosclerosis. There is no pericardial effusion. There is moderate calcific thoracic aortic and branch vesselatherosclerosis. The main pulmonary artery is dilated measuring up to 3.3 cm.. Thedescending thoracic aorta measures up to 3.47 m. Pleural Spaces: The pleural spaces are clear. Mediastinum/Rita: There is no mediastinal or hilar lymph nodeenlargement. Small hiatal hernia. Neck Base/Chest Wall/Diaphragm/Upper Abdomen: Stable peripherallycalcified 14 mm left thyroid lobe nodule. There is no supraclavicular oraxillary lymph node enlargement. There is a exophytic 4.0 cm right renalcyst. Cholelithiasis. The kidneys are atrophic. Limited, non-contrastimaging through the upper abdomen is within normal limits. Milddegenerative change is present in the spine. Lungs/Central Airways: The trachea and central airways are clear normalin caliber. There is bilateral dependent atelectasis. No focalconsolidation. No suspicious pulmonary nodules are identified. There isbilateral bronchiectasis. Stable cystic changes within the posterior rightupper lobe, unchanged. IMPRESSION: 1. No acute abnormality is seen within the chest 2. No lymphadenopathy is seen within chest. 3. Cardiomegaly with extensive coronary calcific atherosclerosis. 4. Stable chronic nonactionable findings, as detailed above 5. Small hiatal hernia. Ordered By: OFE BELLE Interpreted By: Roselia Kwok MD, 06/25/2025 10:31 PM Ofe Belle MD CT Final Result * CT HEAD WO CON (06/25/2025 9:49 PM CDT) Anatomical Region Laterality Modality Head Computed Tomogra phy 06/25/2025 10:1 8 PM CDT Impressions 06/25/2025 10:19 PM CDT IMPRESSION: ===== 1. No convincing acute intracranial abnormality. 2. 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 Superimposed or adjacent acute infarct not excluded. 3. Minimal right ethmoid mucosal sinus disease Referred By: Interpreted By: Erlin Genao MD, 06/25/2025 10:18 PM Narrative 06/25/2025 10:19 PM CDT [facility] [address] [place] [address] EXAMINATION: CT of the head EXAM DATE/TIME: 06/25/2025 9:42 PM REASON FOR EXAM: headache, nausea Dehydration, worsening kidney function, headache, nausea COMPARISON: Head CT 10/19/2023 TECHNIQUE: Axial CT images of the brain are obtained from skull base through vertex without the use of IV contrast agent. A dose lowering technique was used for this procedure, which may include, but is not limited to, dose reduction technique, automated exposure control, iterative reconstruction, ALARA (As Low As Reasonably Achievable), or Image Gently techniques. FINDINGS: No acute hemorrhage or large territory infarct. Ventricles are moderately enlarged with prominent bilateral sulci indicating moderate parenchymal volume loss. There are extensive areas of hypodensity in the periventricular deep white matter which is nonspecific but likely secondary to severe small vessel ischemic disease. Multiple old infarcts are again seen including in the left frontal lobe and bilateral basal ganglia. There are no extra-axial fluid collections. There is no mass, mass effect, or midline shift. There is no depressed skull fracture. Visualized paranasal sinuses show minimal right ethmoid mucosal thickening. Remainder paranasal sinuses and mastoid air cells are clear. Hyperostosis frontalis. Visualized orbital contents show left lens extraction and are otherwise unremarkable. ===== Procedure Note Erlin Genao MD - 06/25/2025 [facility] [address] [place] [id number] EXAMINATION: CT of the head EXAM DATE/TIME: 06/25/2025 9:42 PM REASON FOR EXAM: headache, nausea Dehydration, worsening kidney function, headache, nausea COMPARISON: Head CT 10/19/2023 TECHNIQUE: Axial CT images of the brain are obtained from skull basethrough vertex without the use of IV contrast agent. A dose loweringtechnique was used for this procedure, which may include, but is notlimited to, dose reduction technique, automated exposure control,iterative reconstruction, ALARA (As Low As Reasonably Achievable), orImage Gently techniques. FINDINGS: No acute hemorrhage or large territory infarct. Ventricles aremoderately enlarged with prominent bilateral sulci indicating moderateparenchymal volume loss. There are extensive areas of hypodensity in theperiventricular deep white matter which is nonspecific but likelysecondary to severe small vessel ischemic disease. Multiple old infarctsare again seen including in the left frontal lobe and bilateral basalganglia. There are no extra-axial fluid collections. There is no mass,mass effect, or midline shift. There is no depressed skull fracture.Visualized paranasal sinuses show minimal right ethmoid mucosalthickening. Remainder paranasal sinuses and mastoid air cells are clear.Hyperostosis frontalis. Visualized orbital contents show left lensextraction and are otherwise unremarkable. ===== IMPRESSION: ===== 1. No convincing acute intracranial abnormality. 2. 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 3. Minimal right ethmoid mucosal sinus disease Referred By: Interpreted By: Erlin Genao MD, 06/25/2025 10:18 PM Ofe Belle MD CT Final Result * CT ABD+PEL WO CON (06/25/2025 9:49 PM CDT) Anatomical Region Laterality Modality Abdomen Computed Tomogra phy 06/25/2025 10:2 4 PM CDT Impressions 06/25/2025 10:30 PM CDT IMPRESSION: 1. No acute abnormality seen within the abdomen or pelvis. The etiology of patient's symptoms is not forthcoming on this exam. 2. Cholelithiasis. 3. Cardiomegaly. 4. Small hiatal hernia. Ordered By: OFE BELLE Interpreted By: Roselia Kwok MD, 06/25/2025 10:24 PM Narrative 06/25/2025 10:30 PM CDT [facility] [address] [place] [address] PROCEDURE: CT ABD+PEL WO CON HISTORY: Nausea. TECHNIQUE: Helical CT of the abdomen and pelvis was performed without intravenous contrast. A dose lowering technique was used for this procedure, which may include, but is not limited to, dose reduction technique, automated exposure control, the use of iterative reconstruction, and ALARA (As Low As Reasonably Achievable) / Image Gently techniques. COMPARISON: CT chest without contrast, 11/18/2024. FINDINGS CT ABDOMEN/PELVIS: Lower thorax: There is subsegmental atelectasis in the lower lobes. The heart is enlarged. Small hiatal hernia. Coronary artery calcific atherosclerosis present. Liver: The liver is normal in size. No intrahepatic mass is seen on this non- contrast exam. Biliary tree: There is cholelithiasis. There is no biliary ductal dilatation. Spleen: The spleen is normal in size. Pancreas: The pancreas is normal in size. There are no pancreatic calcifications. The pancreatic duct is not dilated. Adrenal glands: The adrenal glands are normal in size and shape. Kidneys: There is no hydronephrosis. No renal stones are seen. There is a 4.0 cm exophytic right renal cyst. The kidneys are atrophic. Lymph nodes: Abdomen: There is no abdominal adenopathy. Pelvis: There is no pelvic adenopathy. Vasculature: There is no abdominal aortic aneurysm. Atherosclerotic calcification is seen. Peritoneum/mesentery/omentum: There is no free fluid or free air. GI tract: There is no bowel obstruction. There is no abnormal bowel wall thickening to suggest acute inflammation. Pelvic urogenital structures:The bladder is grossly unremarkable. The uterus is not seen. There is no adnexal mass. Body wall: There are degenerative changes in the spine. There is bilateral hip degenerative changes. Limitations: Evaluation of the solid parenchymal organs and vasculature is limited due to lack of intravenous contrast. Murphy: (S/I) = series number / image number Procedure Note Roselia Kwok MD - 06/25/2025 [facility] [address] [place] [address] PROCEDURE: CT ABD+PEL WO CON HISTORY: Nausea. TECHNIQUE: Helical CT of the abdomen and pelvis was performed withoutintravenous contrast. A dose lowering technique was used for this procedure, which may include,but is not limited to, dose reduction technique, automated exposurecontrol, the use of iterative reconstruction, and ALARA (As Low AsReasonably Achievable) / Image Gently techniques. COMPARISON: CT chest without contrast, 11/18/2024. FINDINGS CT ABDOMEN/PELVIS: Lower thorax: There is subsegmental atelectasis in the lower lobes. Theheart is enlarged. Small hiatal hernia. Coronary artery calcificatherosclerosis present. Liver: The liver is normal in size. No intrahepatic mass is seen on thisnon- contrast exam. Biliary tree: There is cholelithiasis. There is no biliary ductaldilatation. Spleen: The spleen is normal in size. Pancreas: The pancreas is normal in size. There are no pancreaticcalcifications. The pancreatic duct is not dilated. Adrenal glands: The adrenal glands are normal in size and shape. Kidneys: There is no hydronephrosis. No renal stones are seen. There is a4.0 cm exophytic right renal cyst. The kidneys are atrophic. Lymph nodes: Abdomen: There is no abdominal adenopathy. Pelvis: There is no pelvic adenopathy. Vasculature: There is no abdominal aortic aneurysm. Atheroscleroticcalcification is seen. Peritoneum/mesentery/omentum: There is no free fluid or free air. GI tract: There is no bowel obstruction. There is no abnormal bowel wallthickening to suggest acute inflammation. Pelvic urogenital structures:The bladder is grossly unremarkable. Theuterus is not seen. There is no adnexal mass. Body wall: There are degenerative changes in the spine. There isbilateral hip degenerative changes. Limitations: Evaluation of the solid parenchymal organs and vasculature islimited due to lack of intravenous contrast. Murphy: (S/I) = series number / image number IMPRESSION: 1. No acute abnormality seen within the abdomen or pelvis. The etiologyof patient's symptoms is not forthcoming on this exam. 2. Cholelithiasis. 3. Cardiomegaly. 4. Small hiatal hernia. Ordered By: OFE BELLE Interpreted By: Roselia Kwok MD, 06/25/2025 10:24 PM O[address] MD CT Final Result * (ABNORMAL) URINALYSIS, AUTO, COMPLETE (06/25/2025 8:00 PM CDT) COLOR (U) YELLOW 06/25/2025 8:21 PM CDT [facility] TRANSPARENCY HAZY 06/25/2025 8:21 PM CDT [facility] SPECIFIC GRAVITY (U) 1.020 1.000 - 1.030 06/25/2025 8:21 PM CDT [facility] U PH 6.0 5.0 - 9.0 06/25/2025 8:21 PM CDT [facility] LEUKOCYTES (U) 1+(A) NEGATIVE 06/25/2025 8:21 PM T [facility] NITRITES NEGATIVE NEGATIVE 06/25/2025 8:21 PM CDT [facility] PROTEIN RANDOM (U) 2+(A) NEGATIVE 06/25/2025 8:21 PM T [facility] GLUCOSE (U) NEGATIVE NEGATIVE 06/25/2025 8:21 PM T [facility] KETONES MG/DL (U) NEGATIVE NEGATIVE 06/25/2025 8:21 PM T [facility] BILIRUBIN (U) NEGATIVE NEGATIVE 06/25/2025 8:21 PM T [facility] BLOOD (U) TRACE(A) NEGATIVE 06/25/2025 8:21 PM CDT [facility] WBC/HPF 10-25 0 - 5 /HPF 06/25/2025 8:21 PM CDT [facility] RBC/HPF 0-5 0 - 5 /HPF 06/25/2025 8:21 PM CDT [facility] EPI/HPF MANY /HPF 06/25/2025 8:21 PM CDT [facility] OTHER CASTS (U) FEW /LPF 8:21 PM CDT [facility] Comment:HYALINE BACTERIA (U) FEW /HPF 06/25/2025 8:21 PM CDT [facility] URINE SPECIMEN OBTAINED BY CLEAN CATCH PROCEDURE / Unknown 06/25/2025 8:00 PM CDT us Shira Scott MD URINE ORDERABLES Final Res ult [facility] [address] [place] [address], * ECG 12 lead (06/25/2025 6:47 PM CDT) 06/25/2025 6:47 PM CDT Narrative [facility] RAD - 06/26/2025 12:48 PM CDT [facility] Test Date: 2025-06-25 Pat Name: HEATH SALMERON Department: 85 Room: [facility] 303 Gender: Female 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[id number] Requested By: SHIRA SCOTT Order Number: [id number] Reading MD: Constantino Carpenter Measurements Intervals [place] Rate: 78 P: 236 [place]: 127 QRS: -47 QRSD: 157 T: 71 QT: 443 QTc: 506 Interpretive Statements SINUS RHYTHM LEFT AXIS DEVIATION [QRS AXIS < -30] LEFT BUNDLE BRANCH BLOCK [120+ ms QRS DURATION, 80+ ms Q/S IN V1/V2, 85+ ms R IN I/aVL/V5/V6] First Degree AV Block Procedure Note Constantino Carpenter MD - 06/26/2025 [facility] Test Date: 2025-06-25 Pat Name: HEATH SALMERON Department: 85 Room: EXAM 303 Gender: Female 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[id number] Requested By: SHIRA SCOTT Order Number: [id number] Reading MD: Constantino Carpenter Measurements Intervals [place] Rate: 78 P: 236 [place]: 127 QRS: -47 QRSD: 157 T: 71 QT: 443 QTc: 506 Interpretive Statements SINUS RHYTHM LEFT AXIS DEVIATION [QRS AXIS < -30] LEFT BUNDLE BRANCH BLOCK [120+ ms QRS DURATION, 80+ ms Q/S IN V1/V2, 85+ms R IN I/aVL/V5/V6] First Degree AV Block us Shira Scott MD ECG ORDERABLES Final Resu lt [facility] * (ABNORMAL) COMPREHENSIVE METABOLIC PANEL (06/25/2025 6:43 PM CDT) GLUCOSE 112(H) 70 - 99 MG/DL 06/25/2025 7:03 PM CDT [facility] BUN 38(H) 7 - 18 MG/DL 06/25/2025 7:03 PM CDT [facility] CREATININE S/P/B 3.15(H) 0.55 - 1.02 MG/DL 06/25/2025 7:03 PM CDT [facility] SODIUM S/P/B 138 136 - 145 MMOL/L 06/25/2025 7:03 PM CDT [facility] POTASSIUM S/P/B 4.2 3.5 - 5.1 MMOL/L 06/25/2025 7:03 PM CDT [facility] CHLORIDE S/P/B 105 100 - 108 MMOL/L 06/25/2025 7:03 PM [facility] CO2 20.1(L) 21 - 32 MMOL/L 06/25/2025 7:03 PM [facility] CALCIUM S/P/B 8.6 8.5 - 10.1 MG/DL 06/25/2025 7:03 PM [facility] BILIRUBIN TOTAL S/P/B 0.5 0.2 - 1.2 MG/DL 06/25/2025 7:03 PM [facility] TOTAL PROTEIN S/P/B 6.5 6.4 - 8.2 G/DL 06/25/2025 7:03 PM [facility] ALBUMIN S/P/B 3.3(L) 3.4 - 5.0 G/DL 06/25/2025 7:03 PM [facility] AST 26 15 - 37 U/L 06/25/2025 7:03 PM [facility] ALT 23 14 - 55 U/L 06/25/2025 7:03 PM [facility] ALKALINE PHOSPHATASE S/P/B 49(L) 50 - 136 U/L 06/25/2025 7:03 PM [facility] ANION GAP 12.9 5 - 15 MMOL/L 06/25/2025 7:03 PM [facility] BUN CREATININE RATIO 12.1 6 - 26 06/25/2025 7:03 PM [facility] A/G RATIO 1.0 1.0 - 2.0 RATIO 06/25/2025 7:03 PM [facility] GFR ESTIMATE 14(L) >90 ML/MIN/1.7 3 M2 06/25/2025 7:03 PM [facility] Comment: NOTE: eGFR is not calculated for patients <18 years of age. This is an estimated GFR calculation using the new CKD EPI creatinine equation without race and so does not require a correction factor for race. This estimated GFR should not be used for calculating drug doses. 06/25/2025 6:43 PM CDT us Shira Scott MD LABORATORY Final Resu lt [facility] [address] [place] [address], * (ABNORMAL) CBC W/DIFF AUTOMATED (06/25/2025 6:43 PM CDT) WBC 4.52 4.4 - 11.0 x10'3/uL 06/25/2025 6:52 PM CDT [facility] RBC 3.09(L) 4.50 - 5.10 x10'6/uL 06/25/2025 6:52 PM CDT [facility] HGB 10.8(L) 12.3 - 15.3 G/DL 06/25/2025 6:52 PM CDT [facility] HCT 33.1(L) 35.9 - 44.6 % 06/25/2025 6:52 PM CDT [facility] MCV 107.1(H) 80.0 - 96.0 FL 06/25/2025 6:52 PM CDT [facility] MCH 35.0(H) 25.3 - 30.9 PG 06/25/2025 6:52 PM CDT [facility] MCHC 32.6 31.0 - 34.1 G/DL 06/25/2025 6:52 PM CDT [facility] RDW 16.4(H) 12.4 - 15.1 % 06/25/2025 6:52 PM CDT [facility] PLT 135(L) 151 - 353 x10'3/uL 06/25/2025 6:52 PM CDT [facility] MPV 10.7 9.6 - 12.0 FL 06/25/2025 6:52 PM CDT [facility] RBC MORPHOLOGY NORMAL 06/25/2025 6:52 PM CDT [facility] PLT MORPH. NORMAL 06/25/2025 6:52 PM CDT [facility] WBC MORPHOLOGY NORMAL 06/25/2025 6:52 PM CDT [facility] LYMPHOCYTES % 26.1 15.8 - 45.0 % 06/25/2025 6:52 PM CDT [facility] NEUTROPHILS % 63.3 42.1 - 71.9 % 06/25/2025 6:52 PM CDT [facility] MONOCYTES % 8.2 5.7 - 12.5 % 06/25/2025 6:52 PM CDT [facility] EOSINOPHILS 1.3 0.0 - 5.6 % 06/25/2025 6:52 PM CDT [facility] BASOPHILS 0.9 0.0 - 1.3 % 06/25/2025 6:52 PM CDT [facility] ABS. NEUTROPHILS 2.86 1.40 - 6.00 x10'3/uL 06/25/2025 6:52 PM CDT [facility] LAB IMMATURE GRANS % 0.2 0.0 - 0.5 % 06/25/2025 6:52 PM CDT [facility] ABS. LYMPHOCYTES 1.18 0.80 - 4.70 x10'3/uL 06/25/2025 6:52 PM CDT [facility] 06/25/2025 6:43 PM CDT us Shira Scott MD LABORATORY Final Resu lt Performing Organization Address City/[facility]/ZIP Co de Phone Number [facility] [address] [place] [address], [place] [phone] * PHOSPHORUS, INORGANIC PHOSPHATE (06/25/2025 6:43 PM CDT) PHOSPHORUS 4.3 2.5 - 4.9 MG/DL 06/25/2025 7:03 PM CDT [facility] 06/25/2025 6:43 PM CDT Shira Sctot MD LABORATORY Final Resu lt Performing Organization Address [facility] Co de Phone Number [facility] [address] [place] [address], [place] [phone] * MAGNESIUM (06/25/2025 6:43 PM CDT) MAGNESIUM 2.1 1.8 - 2.4 MG/DL 06/25/2025 7:03 PM CDT [facility] 06/25/2025 6:43 PM CDT Shira Scott MD LABORATORY Final Resu lt Performing Organization Address City/[facility]/ZIP Co de Phone Number [facility] [address] [place] [address], [place] [phone] * LIPASE (06/25/2025 6:43 PM CDT) LIPASE 29 16 - 77 UNITS/L 06/25/2025 7:03 PM CDT [facility] 06/25/2025 6:43 PM CDT us Shira Scott MD LABORATORY Final Resu lt [facility] [address] [place] [address], [place] [phone] * (ABNORMAL) POCT glucose (06/25/2025 6:23 PM CDT) GLUCOSE POC 116(H) 70 - 110 mg/dL 06/25/2025 6:43 PM CDT [facility] 06/25/2025 6:23 PM CDT us Attending Physician Emergency MD POCT ORDERABLES - DEVICE Final Result [facility] [address] [place] [address], [place] [phone] from Last 3 Months Insurance MEDICARE Advance Directives * Full Code (Latest Code Status on File) Date Activated Date Inactivated Comments 01/16/2025 12:30 PM 01/18/2025 2:41 PM * Full Code Date Activated Date Inactivated Comments 11/18/2024 6:41 PM 11/21/2024 3:34 PM Care Teams Manager Chemical Relationship Specialty Start Date End Date Oh Goode MD [address] [place] [address] PCP - General FAMILY PRACTICE 01/26/20
--- OUTSIDE RECORDS SUMMARY | 2025-09-04 17:28 | XMS_ITS | Clinical Summary ---
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 Name Role Phone New Bejarano MD Primary Care Provid er Allergies Active Allergy Reactions Criticality Noted Date Comments Adhesive Rash Medium 06/25/2025 Ceftriaxone Anaphylaxis High 01/16/2025 Hypotension, airway constriction, [...] (5 mg total) by mouth nightly Active amiodarone (PACERONE) 200 mg tablet Take 1 tablet (200 mg total) by mouth daily Active amLODIPine (NORVASC) 5 mg tablet Take 1 tablet (5 mg total) by mouth daily Active acetaminophen 500 mg capsule Take by mouth every 6 (six) hours as needed for mild pain (pain scale 1-4) Active senna (SENOKOT) 8.6 mg tablet Take 1 tablet by mouth daily as needed for constipation Active docusate sodium (DOK) 100 mg tabletIndications [...] mcg total) by mouth daily 30 tablet Active rivaroxaban (XARELTO) 15 mg tabletIndications :atrial fibrillation Take 1 tablet (15 mg total) by mouth daily with dinner 30 tablet Active sucralfate (CARAFATE) 1 gram tablet Take 1 tablet (1 g total) by mouth 4 (four) times a day (with meals and nightly) for 10 days 40 tablet Active furosemide (LASIX) 20 mg tablet Take 1 tablet (20 mg total) by mouth daily 30 tablet 11 2025 Active miconazole 2 % powder Apply topically 2 (two) times a day 70 g 1 Active oxyBUTYnin (DITROPAN) 5 mg tablet Take 1 tablet (5 mg total) by mouth 3 (three) times a day as needed (bladder spasm) 90 tablet 1 2025 Active gabapentin (NEURONTIN) 300 mg capsuleIndication s:Neuropathic Pain Take 1 capsule (300 mg total) by mouth nightly 90 capsule Active meclizine (ANTIVERT) 25 mg tablet Take 1 tablet (25 mg total) by mouth 3 (three) times a day as needed for dizziness [address] (Protonix) 40 mg EC tablet Take 1 tablet (40 mg total) by mouth daily 30 tablet Active cholecalciferol (VITAMIN D-3) 77435 unit capsule Take 1 capsule (10,000 Units total) by mouth daily 30 capsule 11 2025 Active ezetimibe (ZETIA) 10 mg tablet Take 1 tablet (10 mg total) by mouth daily 2024 Discontinued(E rror) allopurinoL (ZYLOPRIM) 100 mg tablet Take 1 tablet (100 mg total) by mouth daily 2024 Discontinued(P atient Reported) meclizine (ANTIVERT) 25 mg tablet Take 1 tablet (25 mg total) by mouth 3 (three) times a day as needed for dizziness 2024 Discontinued(R eorder) ergocalciferol (VITAMIN D) 50,000 unit capsule Take 1 capsule (50,000 Units total) by mouth once a week Wednesdays Discontinued(T herapy completed) pantoprazole DR (Protonix) 40 mg EC tablet Take 1 tablet (40 mg total) by mouth 2 (two) times a day 60 tablet 2024 Discontinued gabapentin (NEURONTIN) 100 mg capsule Take 2 capsules (200 mg total) by mouth 3 (three) times a day 180 capsule 2024 Discontinued ondansetron ODT (ZOFRAN-ODT) 4 mg disintegrating tabletIndications :Nausea and Vomiting Take 1 tablet (4 mg total) by mouth every 6 (six) hours as needed for nausea or vomiting 45 tablet 2024 empagliflozin (JARDIANCE) 10 mg tablet Take 1 tablet (10 mg total) by mouth daily 30 tablet 2 2024 Discontinued(S top Taking at Discharge) sacubitriL-valsar oscar (ENTRESTO) 24-26 mg tabletIndications :chronic heart failure Take 1 tablet by mouth 2 (two) times a day 60 tablet 2 2024 Discontinued(S top Taking at Discharge) Active Problems Problem Noted Date Diagnosed Date Bladder spasm 08/24/2025 Assessment & Plan (08/24/2025 11:46 AM CDT): Endorsing pain with urination and lower abdominal pressure. Seems to be a chronic complaint per chart review, with negative UA's in the past. History of anaphylaxis with ceftriaxone. UCx with allen susceptible E Coli, treated with fosfomycin while admitted. Started on oxybutynin 5mg TID PRN for bladder spasms and continued on discharge along with urology referral. UTI (urinary tract infection) 08/24/2025 Assessment & Plan (08/24/2025 11:46 AM CDT): Endorsing pain with urination and lower abdominal pressure. Seems to be a chronic complaint per chart review, with negative UA's in the past. History of anaphylaxis with ceftriaxone. UCx with allen susceptible E Coli, treated with fosfomycin while admitted. Started on oxybutynin 5mg TID PRN for bladder spasms and continued on discharge along with urology referral. Nausea 08/23/2025 Assessment & Plan (08/24/2025 11:46 AM CDT): Prior admissions for nausea and abdominal pain. Was started on PPI, sucralfate for symptom management and meant to follow up OP with GI for EGD. Sucralfate held while admitted and on discharge due to LIV per nephro recs. Recommend continued follow up with GI. Assessment & Plan (08/23/2025 12:41 PM CDT): Prior admissions for nausea and abdominal pain. Was started on PPI, sucralfate for symptom management and meant to follow up OP with GI for EGD - cont PPI - hold sucralfate for LIV - OP GI follow up LIV (acute kidney injury) 08/19/2025 Assessment & Plan (08/24/2025 11:46 AM CDT): Baseline Cr 2.3, up to 3.79 with diuresis. Follows with outpatient nephrology. Nephrology consulted, renal ultrasound without significant findings, at this time believed to be due to ATN from diuresis, improved with holding of diuretics and cautious resumption as above. Will have outpatient BMP in one week and referral for nephrology follow up placed. Assessment & Plan (08/23/2025 12:38 PM CDT): Baseline Cr 2.3, up to 3.79 with diuresis. Follows with outpatient nephrology. Nephrology consulted, renal ultrasound without significant findings, at this time believed to be due to ATN from diuresis - lasix as above - nephrology consulted and following - trend Cr per BMP - renally dose meds, avoid nephrotoxins Assessment & Plan (08/22/2025 4:40 PM CDT): Baseline Cr 2.3, up to 3.79 with diuresis. Follows with outpatient nephrology. Nephrology consulted, renal ultrasound without significant findings, at this time believed to be due to ATN from diuresis - Hold diuretics - nephrology consulted and following - trend Cr per BMP - renally dose meds, avoid nephrotoxins Assessment & Plan (08/21/2025 2:02 PM CDT): Baseline Cr 2.3. Follows with outpatient nephrology. - Cr steadily uptrending with diuresis; will hold diuretics as above - nephrology consulted, urine lytes, renal US - trend Cr per BMP - renally dose meds, avoid nephrotoxins Assessment & Plan (08/20/2025 2:09 PM CDT): Baseline Cr 2.3. Follows with outpatient nephrology. - Cr steadily uptrending with diuresis; will hold diuretics as above - trend Cr per BMP - renally dose meds, avoid nephrotoxins Assessment & Plan (08/19/2025 12:46 PM CDT): Baseline Cr 2.3. Follows with outpatient nephrology. - Cr steadily uptrending with diuresis; will hold diuretics and give IV fluid today as noted above - trend Cr per BMP - renally dose meds, avoid nephrotoxins Dysuria 08/18/2025 Assessment & Plan (08/24/2025 11:46 AM CDT): Endorsing pain with urination and lower abdominal pressure. Seems to be a chronic complaint per chart review, with negative UA's in the past. History of anaphylaxis with ceftriaxone. UCx with allen susceptible E Coli, treated with fosfomycin while admitted. Started on oxybutynin 5mg TID PRN for bladder spasms and continued on discharge along with urology referral. Assessment & Plan (08/23/2025 12:38 PM CDT): Endorsing pain with urination and lower abdominal pressure. Seems to be a chronic complaint per chart review, with negative UA's in the past. History of anaphylaxis with ceftriaxone. UCx with allen susceptible E Coli, treated with fosfomycin while admitted - Continue oxybutynin 5mg TID PRN for bladder spasms (avoiding pyridium due to renal fxn) - would benefit from outpatient Urology f/u Assessment & Plan (08/22/2025 4:40 PM CDT): Endorsing pain with urination and lower abdominal pressure. Seems to be a chronic complaint per chart review, with negative UA's in the past. History of anaphylaxis with ceftriaxone. UCx with allen susceptible E Coli, treated with fosfomycin while admitted - Continue oxybutynin 5mg TID PRN for bladder spasms (avoiding pyridium due to renal fxn) - would benefit from outpatient Urology f/u Assessment & Plan (08/21/2025 2:02 PM CDT): Endorsing pain with urination and lower abdominal pressure. Seems to be a chronic complaint per chart review, with negative UA's in the past. History of anaphylaxis with ceftriaxone. UCx with allen susceptible E Coli, treated with fosfomycin while admitted - started oxybutynin 5mg TID PRN for bladder spasms (avoiding pyridium due to renal fxn) - would benefit from outpatient Urology f/u Assessment & Plan (08/20/2025 2:09 PM CDT): Endorsing pain with urination and lower abdominal pressure. Seems to be a chronic complaint per chart review, with negative UA's in the past. History of anaphylaxis with ceftriaxone. UCx with allen susceptible E Coli, treated with fosfomycin while admitted - start oxybutynin 5mg TID PRN for bladder spasms (avoiding pyridium due to renal fxn) - would benefit from outpatient Urology f/u Assessment & Plan (08/19/2025 12:46 PM CDT): Endorsing pain with urination and lower abdominal pressure. Seems to be a chronic complaint per chart review, with negative UA's in the past. History of anaphylaxis with ceftriaxone. - UA with 21-50 WBC, 3-5 RBC, 2+ bacteria, 1+ LE - urine cx with E.coli, susceptibilities pending - s/p fosfomycin x1 - start oxybutynin 5mg TID PRN for bladder spasms (avoiding pyridium due to renal fxn) - would benefit from outpatient Urology f/u Assessment & Plan (08/18/2025 3:39 PM CDT): Endorsing pain with urination and lower abdominal pressure. Seems to be a chronic complaint per chart review, with negative UA's in the past. - UA with 21-50 WBC, 3-5 RBC, 2+ bacteria, 1+ LE - urine cx with E.coli, susceptibilities pending - s/p fosfomycin x1 - start oxybutynin 5mg TID PRN for bladder spasms (avoiding pyridium due to renal fxn) - would benefit from outpatient Urology f/u SUZANNE (obstructive sleep apnea) 08/18/2025 Assessment & Plan (08/18/2025 9:16 PM CDT): Patient previously diagnosed, no longer with functioning CPAP and w/ no sleep doctor. Will refer to sleep. 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 Currently using albuterol PRN (typically qDay) w/ improvement in dyspnea. Patient w/o smoking history but with extensive 2nd hand exposure. 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 Would benefit from further workup to elucidate etiology of dyspnea to help guide management, but will need to defer until cardiac pathologies better controlled and no longer in ADHF. Review of recent CT AP w/ bibasilar GG c/f scarring vs atelectasis. Given history c/f reactive airway process. Would benefit from complete PFTs + O2 assessment. CHF exacerbation 08/15/2025 Assessment & Plan (08/24/2025 11:46 AM CDT): Hx of NICM with recovered EF 45% > 65% in 2022. On lasix PO 20 mg daily that was discontinued last admission due to patient reporting not taking it. Presented to PCP's office with worsening leg swelling, SOB, weakness and weight gain, sent to the ED for suspected CHF exacerbation. Weight 190 lb on last hospital discharge (07/13/25), up to 216 lb on this admission. NT-proBNP elevated to 15,641 (no prior for comparison), CXR with small L and trace R pleural effusions, mild pulmonary vascular congestion. Repeat TTE (08/16/25): LVEF 38%, indeterminate diastolic dysfunction, dilated IVC. Diuresed with escalating doses of IV Lasix with good urine output, stopped due to increasing creatinine. Ultimately discharged on lasix 20mg daily with instructions to double dose with 5lbs weight gain in 3 days or worsening LE edema. Continued on home coreg 1.25mg BID, other GDMT limited due to renal function. Weight on discharge 216lbs. Assessment & Plan (08/23/2025 12:38 PM CDT): Hx of NICM with recovered EF 45% > 65% in 2022. On lasix PO 20 mg daily that was discontinued last admission due to patient reporting not taking it. Presented to PCP's office with worsening leg swelling, SOB, weakness and weight gain, sent to the ED for suspected CHF exacerbation. Weight 190 lb on last hospital discharge (07/13/25), up to 216 lb on this admission. NT-proBNP elevated to 15,641 (no prior for comparison), CXR with small L and trace R pleural effusions, mild pulmonary vascular congestion. Repeat TTE (08/16/25): LVEF 38%, indeterminate diastolic dysfunction, dilated IVC. Diuresed with escalating doses of IV Lasix with good urine output, stopped due to increasing creatinine - lasix 20mg PO today - Strict Is/Os, daily weights - GDMT: on Coreg 12.5 mg BID at home; not on other GDMT, likely due to renal function Assessment & Plan (08/22/2025 4:40 PM CDT): Hx of NICM with recovered EF 45% > 65% in 2022. On lasix PO 20 mg daily that was discontinued last admission due to patient reporting not taking it. Presented to PCP's office with worsening leg swelling, SOB, weakness and weight gain, sent to the ED for suspected CHF exacerbation. Weight 190 lb on last hospital discharge (07/13/25), up to 216 lb on this admission. NT-proBNP elevated to 15,641 (no prior for comparison), CXR with small L and trace R pleural effusions, mild pulmonary vascular congestion. Repeat TTE (08/16/25): LVEF 38%, indeterminate diastolic dysfunction, dilated IVC. Diuresed with escalating doses of IV Lasix with good urine output, stopped due to increasing creatinine - Continue to hold diuretics - hopeful transition to PO maintenance diuretic pending improvement in Cr, nephro input - Strict Is/Os, daily weights - GDMT: on Coreg 12.5 mg BID at home; not on other GDMT, likely due to renal function Assessment & Plan (08/21/2025 2:02 PM CDT): Hx of NICM with recovered EF 45% > 65% in 2022. On lasix PO 20 mg daily that was discontinued last admission due to patient reporting not taking it. Presented to PCP's office with worsening leg swelling, SOB, weakness and weight gain, sent to the ED for suspected CHF exacerbation. Weight 190 lb on last hospital discharge (07/13/25), up to 216 lb on this admission. NT-proBNP elevated to 15,641 (no prior for comparison), CXR with small L and trace R pleural effusions, mild pulmonary vascular congestion. Repeat TTE (08/16/25): LVEF 38%, indeterminate diastolic dysfunction, dilated IVC - diuresed with lasix 40 mg IV --> 80 IV BID --> 100mg IV BID with good UOP now stopped - steadily uptrending Cr with diuresis, will hold diuresis for now - hopeful transition to PO maintenance diuretic pending improvement in Cr, nephro input - Strict Is/Os, daily weights - GDMT: on Coreg 12.5 mg BID at home; not on other GDMT, likely due to renal function Assessment & Plan (08/20/2025 2:09 PM CDT): Hx of NICM with recovered EF 45% > 65% in 2022. On lasix PO 20 mg daily that was discontinued last admission due to patient reporting not taking it. Presented to PCP's office with worsening leg swelling, SOB, weakness and weight gain, sent to the ED for suspected CHF exacerbation. Weight 190 lb on last hospital discharge (07/13/25), up to 216 lb on this admission. NT-proBNP elevated to 15,641 (no prior for comparison), CXR with small L and trace R pleural effusions, mild pulmonary vascular congestion. Repeat TTE (08/16/25): LVEF 38%, indeterminate diastolic dysfunction, dilated IVC - diuresed with lasix 40 mg IV --> 80 IV BID --> 100mg IV BID with good UOP - steadily uptrending Cr (2.37 -> 2.41 -> 2.58 -> 2.75 -> 2.84 -> 3.02 -> 3.22 - > 3.35) with diuresis; although patient is not back to her previous weight, will hold diuresis again today - hopeful transition to PO maintenance diuretic tomorrow pending improvement in Cr - Strict Is/Os, daily weights - Q12 BMP, Mg - GDMT: on Coreg 12.5 mg BID at home; not on other GDMT, likely due to renal function Assessment & Plan (08/19/2025 12:46 PM CDT): Hx of NICM with recovered EF 45% > 65% in 2022. On lasix PO 20 mg daily that was discontinued last admission due to patient reporting not taking it. Presented to PCP's office with worsening leg swelling, SOB, weakness and weight gain, sent to the ED for suspected CHF exacerbation. Weight 190 lb on last hospital discharge (07/13/25), up to 216 lb on this admission. NT-proBNP elevated to 15,641 (no prior for comparison), CXR with small L and trace R pleural effusions, mild pulmonary vascular congestion. - repeat TTE (08/16/25): LVEF 38%, indeterminate diastolic dysfunction, dilated IVC - diuresed with lasix 40 mg IV --> 80 IV BID --> 100mg IV BID with good UOP - steadily uptrending Cr (2.37 -> 2.41 -> 2.58 -> 2.75 -> 2.84 -> 3.02 -> 3.22 - > 3.35) with diuresis; although patient is not back to her previous weight, will hold diuresis today and give small fluid bolus - consider transition to PO maintenance diuretic tomorrow pending improvement in Cr - Strict Is/Os, daily weights - Q12 BMP, Mg - GDMT: on Coreg 12.5 mg BID at home; not on other GDMT, likely due to renal function Assessment & Plan (08/18/2025 3:39 PM CDT): Hx of NICM with recovered EF 45% > 65% in 2022. On lasix PO 20 mg daily that was discontinued last admission due to patient reporting not taking it. Patient does not recall that. Presenting with worsening leg swelling, SOB, weakness and weight gain. Weight 190 lb on last hospital discharge (07/13/25), up to 216 lb on this admission. Vitally stable, warm to touch, Cr at baseline and normal LFTs. No concern for shock. NT proBNP elevated, no prior baseline. Patient on room air. CXR with pulmonary edema, mild No concern for pneumonia. PE low on the differentials although LL edema > Right. Plan; lasix 40 mg IV --> 80 IV BID --> 100mg IV BID Will hold additional diuresis today given steadily uptrending Cr (2.37 -> 2.41 - > 2.58 -> 2.75 -> 2.84 -> 3.02) Strict Is/Os. Daily weight. TTE (08/16/25): LVEF 38%, indeterminate diastolic dysfunction, dilated IVC GDMT: home Coreg 12.5 mg BID, not on ACEi/ARB, MRA, or SGLT2; will send regan checks and initiate as able prior to discharge telemetry Assessment & Plan (08/17/2025 12:50 PM CDT): Hx of NICM with recovered EF 45% > 65% in 2022. On lasix PO 20 mg daily that was discontinued last admission due to patient reporting not taking it. Patient does not recall that. Presenting with worsening leg swelling, SOB, weakness and weight gain. Weight 190 lb on last hospital discharge (07/13/25), up to 216 lb on this admission. Vitally stable, warm to touch, Cr at baseline and normal LFTs. No concern for shock. NT proBNP elevated, no prior baseline. Patient on room air. CXR with pulmonary edema, mild No concern for pneumonia. PE low on the differentials although LL edema > Right. Plan; lasix 40 mg IV --> 80 IV BID --> 100mg IV BID with metolazone 5mg x1 Strict Is/Os. Daily weight. TTE (08/16/25): LVEF 38%, indeterminate diastolic dysfunction, dilated IVC GDMT: home Coreg 12.5 mg BID, not on ACEi/ARB, MRA, or SGLT2; will send regan checks and initiate as able prior to discharge telemetry Assessment & Plan (08/16/2025 5:04 PM CDT): Hx of NICM with recovered EF 45% > 65% in 2022. On lasix PO 20 mg daily that was discontinued last admission due to patient reporting not taking it. Patient does not recall that. Presenting with worsening leg swelling, SOB, weakness and weight gain. Vitally stable, warm to touch, Cr at baseline and normal LFTs. No concern for shock. NT proBNP elevated, no prior baseline. Patient on room air. CXR with pulmonary edema, mild. Given lasix 40 mg IV x1. Unfortunately I/Os not recorded but patient reports urinating a lot. She feels slightly better. No concern for pneumonia. PE low on the differentials although LL edema > Right. Plan; Continue lasix 40 mg IV --> 80 IV BID Strict Is/Os. Daily weight. Update TTE (last 2022) Continue Coreg 12.5 mg BID. Telemetry for 48 hours. Assessment & Plan (08/16/2025 1:15 AM CDT): Hx of NICM with recovered EF 45% > 65% in 2022. On lasix PO 20 mg daily that was discontinued last admission due to patient reporting not taking it. Patient does not recall that. Presenting with worsening leg swelling, SOB, weakness and weight gain. Vitally stable, warm to touch, Cr at baseline and normal LFTs. No concern for shock. NT proBNP elevated, no prior baseline. Patient on room air. CXR with pulmonary edema, mild. Given lasix 40 mg IV x1. Unfortunately I/Os not recorded but patient reports urinating a lot. She feels slightly better. No concern for pneumonia. PE low on the differentials although LL edema > Right. Plan; Continue lasix 40 mg IV for tomorrow. Can likely transition to oral soon. Strict Is/Os. Daily weight. Update TTE (last 2022) Continue Coreg 12.5 mg BID. Telemetry for 48 hours. HTN (hypertension) 08/15/2025 Assessment & Plan (08/24/2025 11:46 AM CDT): Continued coreg, resumed home amlodipine 5mg on DC. Assessment & Plan (08/23/2025 12:38 PM CDT): - Continue coreg - discontinued amlodipine due to low-normal BP's Assessment & Plan (08/22/2025 4:40 PM CDT): - Continue coreg - discontinued amlodipine due to low-normal BP's Assessment & Plan (08/21/2025 2:02 PM CDT): - Continue coreg - discontinued amlodipine due to low-normal BP's Assessment & Plan (08/20/2025 2:09 PM CDT): - Continue coreg - discontinued amlodipine due to low-normal BP's Assessment & Plan (08/19/2025 12:46 PM CDT): - Continue coreg - discontinued amlodipine due to low-normal BP's Assessment & Plan (08/18/2025 7:14 AM CDT): Continue amlodipine and coreg. Assessment & Plan (08/17/2025 7:31 AM CDT): Continue amlodipine and coreg. Assessment & Plan (08/16/2025 7:47 AM CDT): Continue amlodipine and coreg. Assessment & Plan (08/16/2025 1:15 AM CDT): Continue amlodipine and coreg. HLD (hyperlipidemia) 08/15/2025 Assessment & Plan (08/24/2025 11:46 AM CDT): Continued atorvastatin 80 mg daily. Assessment & Plan (08/23/2025 12:38 PM CDT): - continue atorvastatin 80 mg daily. Assessment & Plan (08/22/2025 4:40 PM CDT): - continue atorvastatin 80 mg daily. Assessment & Plan (08/21/2025 2:02 PM CDT): - continue atorvastatin 80 mg daily. Assessment & Plan (08/20/2025 2:09 PM CDT): - continue atorvastatin 80 mg daily. Assessment & Plan (08/19/2025 12:46 PM CDT): - continue atorvastatin 80 mg daily. Assessment & Plan (08/18/2025 7:14 AM CDT): Continue atorvastatin 80 mg daily. Assessment & Plan (08/17/2025 7:31 AM CDT): Continue atorvastatin 80 mg daily. Assessment & Plan (08/16/2025 7:47 AM CDT): Continue atorvastatin 80 mg daily. Assessment & Plan (08/16/2025 1:15 AM CDT): Continue atorvastatin 80 mg daily. Sacral ulcer 08/15/2025 CKD (chronic kidney disease) stage 4, GFR 15-29 ml/min 07/09/2025 Assessment & Plan (08/24/2025 11:46 AM CDT): Baseline Cr 2.3, up to 3.79 with diuresis. Follows with outpatient nephrology. Nephrology consulted, renal ultrasound without significant findings, at this time believed to be due to ATN from diuresis, improved with holding of diuretics and cautious resumption as above. Will have outpatient BMP in one week and referral for nephrology follow up placed. Assessment & Plan (08/23/2025 12:38 PM CDT): Baseline Cr 2.3, up to 3.79 with diuresis. Follows with outpatient nephrology. Nephrology consulted, renal ultrasound without significant findings, at this time believed to be due to ATN from diuresis - lasix as above - nephrology consulted and following - trend Cr per BMP - renally dose meds, avoid nephrotoxins Assessment & Plan (08/22/2025 4:40 PM CDT): Baseline Cr 2.3, up to 3.79 with diuresis. Follows with outpatient nephrology. Nephrology consulted, renal ultrasound without significant findings, at this time believed to be due to ATN from diuresis - Hold diuretics - nephrology consulted and following - trend Cr per BMP - renally dose meds, avoid nephrotoxins Assessment & Plan (08/21/2025 2:02 PM CDT): Baseline Cr 2.3. Follows with outpatient nephrology. - Cr steadily uptrending with diuresis; will hold diuretics as above - nephrology consulted, urine lytes, renal US - trend Cr per BMP - renally dose meds, avoid nephrotoxins Assessment & Plan (08/20/2025 2:09 PM CDT): Baseline Cr 2.3. Follows with outpatient nephrology. - Cr steadily uptrending with diuresis; will hold diuretics as above - trend Cr per BMP - renally dose meds, avoid nephrotoxins Assessment & Plan (08/19/2025 12:46 PM CDT): Baseline Cr 2.3. Follows with outpatient nephrology. - Cr steadily uptrending with diuresis; will hold diuretics and give IV fluid today as noted above - trend Cr per BMP - renally dose meds, avoid nephrotoxins Assessment & Plan (08/18/2025 9:16 PM CDT): Follows w/ [facility] (Jayy Carrillo). Patient states is currently discussing dialysis. Assessment & Plan (08/18/2025 3:39 PM CDT): Baseline Cr 2.3. Follows with outpatient nephrology. Monitor Q12 BMP and Mg while on diuresis. Cr uptrended to 3.02 (08/18) with diuresis, will hold additional diuretics today Assessment & Plan (08/17/2025 12:50 PM CDT): Baseline Cr 2.3. Follows with outpatient nephrology. Monitor Q12 BMP and Mg while on diuresis. Assessment & Plan (08/16/2025 5:04 PM CDT): Baseline Cr 2.3. K 5 (hemolyzed). Follows with outpatient nephrology. Monitor daily BMP and Mg while on diuresis. Assessment & Plan (08/16/2025 1:15 AM CDT): Baseline Cr 2.3. K 5 (hemolyzed). Follows with outpatient nephrology. Monitor daily BMP and Mg while on diuresis. 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 Patient has had 30-40lbs of weight gain over last month since discharge, BLE pitting edema, abd swelling, chest tightness, orthopnea, PND, and JVD all consistent with ADHF. Patient and daughter agreeable to presentation to ED for further evaluation and likely admission. Assessment & Plan (07/13/2025 7:04 AM CDT): [...] daily Macrocytic anemia 07/09/2025 Assessment & Plan (08/24/2025 11:46 AM CDT): Received IM vitamin B12 injections last admission. Iron profile without iron deficiency. Continued oral supplements Assessment & Plan (08/23/2025 12:38 PM CDT): Received IM vitamin B12 injections last admission. Iron profile without iron deficiency. - continue oral supplementation. Assessment & Plan (08/22/2025 4:40 PM CDT): Received IM vitamin B12 injections last admission. Iron profile without iron deficiency. - continue oral supplementation. Assessment & Plan (08/21/2025 2:02 PM CDT): Received IM vitamin B12 injections last admission. Iron profile without iron deficiency. - continue oral supplementation. Assessment & Plan (08/20/2025 2:09 PM CDT): Received IM vitamin B12 injections last admission. Iron profile without iron deficiency. - continue oral supplementation. Assessment & Plan (08/19/2025 12:46 PM CDT): Received IM vitamin B12 injections last admission. Iron profile without iron deficiency. - continue oral supplementation. Assessment & Plan (08/18/2025 9:16 PM CDT): In setting of vitB12 def, will further evaluate at future appt as pt going [facility] Assessment & Plan (08/18/2025 7:14 AM CDT): Received IM vitamin B12 injections last admission. Continue oral supplementation. Iron profile without iron deficiency Assessment & Plan (08/17/2025 12:50 PM CDT): Received IM vitamin B12 injections last admission. Continue oral supplementation. Iron profile without iron deficiency Assessment & Plan (08/16/2025 5:04 PM CDT): Received IM vitamin B12 injections last admission. Continue oral supplementation. Will send iron profile as well. Assessment & Plan (08/16/2025 1:15 AM CDT): Received IM vitamin B12 injections last admission. Continue oral supplementation. Will send iron profile as well. Assessment & Plan (07/13/2025 7:04 AM CDT): [...] 2 diabetes mellitus) 07/09/2025 Assessment & Plan (08/24/2025 11:46 AM CDT): Was on Januvia but reports was discontinued by her primary provider. Hba1C 6.2. - SSI while admitted - recommend further management with PCP outpatient Assessment & Plan (08/23/2025 12:38 PM CDT): Was on Januvia but reports was discontinued by her primary provider. Hba1C 6.2. - SSI while admitted Assessment & Plan (08/22/2025 4:40 PM CDT): Was on Januvia but reports was discontinued by her primary provider. Hba1C 6.2. - SSI while admitted Assessment & Plan (08/21/2025 2:02 PM CDT): Was on Januvia but reports was discontinued by her primary provider. Hba1C 6.2. - SSI while admitted Assessment & Plan (08/20/2025 2:09 PM CDT): Was on Januvia but reports was discontinued by her primary provider. Hba1C 6.2. - SSI while admitted Assessment & Plan (08/19/2025 12:46 PM CDT): Was on Januvia but reports was discontinued by her primary provider. Hba1C 6.2. - SSI while admitted Assessment & Plan (08/18/2025 9:16 PM CDT): Patient reports prior PCP discontinued medictions, most recent A1c < 7% Assessment & Plan (08/18/2025 7:14 AM CDT): Was on Januvia but reports was discontinued by her primary provider. Hba1C 6.2 Continue SSI while admitted. Assessment & Plan (08/17/2025 7:31 AM CDT): Was on Januvia but reports was discontinued by her primary provider. Hba1C 6.2 Continue SSI while admitted. Assessment & Plan (08/16/2025 5:04 PM CDT): Was on Januvia but reports was discontinued by her primary provider. Hba1C 6.2 Continue SSI while admitted. Assessment & Plan (08/16/2025 1:15 AM CDT): Was on Januvia but reports was discontinued by her primary provider. Hba1C 6.2 Continue SSI while admitted. Assessment & Plan (07/13/2025 7:04 AM CDT): [...] - ldSSI Neuropathy 07/09/2025 Assessment & Plan (08/28/2025 1:32 PM CDT): - patient indicates vague description of pain in legs - happens mostly at night would rec further eval of neuropathy vs RLS - given eGFR of 13 decreased gabapentin to 300mg nightly - she was previously on hydrocodone per outside provider; she is currently taking - recommend further discussion with PCP as patient has apparent multiple falls at home Assessment & Plan (08/24/2025 11:46 AM CDT): Continued Gabapentin. Assessment & Plan (08/23/2025 12:38 PM CDT): - continue Gabapentin. Assessment & Plan (08/22/2025 4:40 PM CDT): - continue Gabapentin. Assessment & Plan (08/21/2025 2:02 PM CDT): - continue Gabapentin. Assessment & Plan (08/20/2025 2:09 PM CDT): - continue Gabapentin. Assessment & Plan (08/19/2025 12:46 PM CDT): - continue Gabapentin. Assessment & Plan (08/18/2025 9:16 PM CDT): Suspect 2/2 b12 def vs DM, pt reports stable to slightly improved following b12 repletion, will further evaluate at future appt as pt going from [facility] Assessment & Plan (08/18/2025 7:14 AM CDT): Continue Gabapentin. Assessment & Plan (08/17/2025 7:31 AM CDT): Continue Gabapentin. Assessment & Plan (08/16/2025 5:04 PM CDT): Continue Gabapentin. Assessment & Plan (08/16/2025 1:15 AM CDT): Continue Gabapentin. Assessment & Plan (07/13/2025 10:45 AM CDT): [...] UA and Ucx. - Stool H pylori Bilious vomiting with nausea 07/08/2025 Paroxysmal atrial fibrillation 02/06/2025 Assessment & Plan (08/28/2025 1:30 PM CDT): - in AF w/RVR at 116 today - asymptomatic; no palpitations - was taking coreg 6.25mg BID instead of 12.5 mg daily; will inc dose to 12.5 mg BID - will follow up with PCP next week for further check on rate control Assessment & Plan (08/24/2025 11:46 AM CDT): Currently in a fib. Rate controlled. Managed with home coreg, amiodarone 200mg, Xarelto daily Assessment & Plan (08/23/2025 12:38 PM CDT): Currently in a fib. Rate controlled. - continue coreg 12.5 mg BID and amiodarone 200 mg daily. - continue Xarelto 15 mg daily. Assessment & Plan (08/22/2025 4:40 PM CDT): Currently in a fib. Rate controlled. - continue coreg 12.5 mg BID and amiodarone 200 mg daily. - continue Xarelto 15 mg daily. Assessment & Plan (08/21/2025 2:02 PM CDT): Currently in a fib. Rate controlled. - continue coreg 12.5 mg BID and amiodarone 200 mg daily. - continue Xarelto 15 mg daily. Assessment & Plan (08/20/2025 2:09 PM CDT): Currently in a fib. Rate controlled. - continue coreg 12.5 mg BID and amiodarone 200 mg daily. - continue Xarelto 15 mg daily. Assessment & Plan (08/19/2025 12:46 PM CDT): Currently in a fib. Rate controlled. - continue coreg 12.5 mg BID and amiodarone 200 mg daily. - continue Xeralto 15 mg daily. Assessment & Plan (08/18/2025 7:14 AM CDT): Currently in a fib. Rate controlled. Continue coreg 12.5 mg BID and amiodarone 200 mg daily. Continue Xeralto 15 mg daily. Assessment & Plan (08/17/2025 7:31 AM CDT): Currently in a fib. Rate controlled. Continue coreg 12.5 mg BID and amiodarone 200 mg daily. Continue Xeralto 15 mg daily. Assessment & Plan (08/16/2025 5:04 PM CDT): Currently in a fib. Rate controlled. Continue coreg 12.5 mg BID and amiodarone 200 mg daily. Continue Xeralto 15 mg daily. Assessment & Plan (08/16/2025 1:15 AM CDT): Currently in a fib. Rate controlled. Continue coreg 12.5 mg BID and amiodarone 200 mg daily. Continue Xeralto 15 mg daily. Assessment & Plan (07/13/2025 10:45 AM CDT): [...] Encounters Date Type Department Care Team Description 08/28/2025 11:00 AM CDT Lab [facility] [address] [place] [id number] HFrEF (heart failure with reduced ejection fraction) 08/28/2025 9:50 AM CDT Office Visit [facility] [address] [place] [id number] Shira Bcek NP HFrEF (heart failure with reduced ejection fraction) (Primary Dx); Paroxysmal atrial fibrillation (HCC); Neuropathy 08/26/2025 [facility] Transitional Care Outreach [facility] Medicine Care Coordination [address] [place] [phone] Kelsie Croft RN 08/26/2025 Documentation [facility] Medicine Scheduling [facility] [place] [address] BullockConsuelo Micheal IP to OP 08/16/2025 8:25 AM CDT Ancillary Procedure [facility] Medicine Vascular Lab IP [address] [facility] [phone] 08/16/2025 [facility] CHW Eligibility Review [facility] Community Health Worker [address] [facility] [address] [place] [address] Prerna Sotomayor MT 08/15/2025 4:14 PM CDT - 08/24/2025 3:50 PM CDT Hospital Encounter [facility] 1 [place] [phone] Matt Narvaez MD Choi, MD Paulo Pedroza, MD Ryann Daniel, MD Samara Jain, Hannah Nassar MD Shortness of breath (Primary Dx); Anasarca; LIV (acute kidney injury); Bladder spasm; CKD (chronic kidney disease) stage 4, GFR 15-29 ml/min ([facility]); Acute on chronic systolic congestive heart failure (HCC) Discharge Disposition: Discharge to home or self care 08/15/2025 1:00 PM CDT Office Visit [facility] [address] [facility] [address] [place] [address] New Bejarano MD HFrEF (heart failure with reduced ejection fraction) (Primary Dx); Chronic, continuous use of opioids; CKD (chronic kidney disease) stage 4, GFR 15-29 ml/min ([facility]); Type 2 diabetes mellitus with diabetic polyneuropathy, without long-term current use of insulin (HCC); Macrocytic anemia; Neuropathy; SUZANNE (obstructive sleep apnea); Chronic obstructive pulmonary disease, unspecified COPD type (HCC) 08/12/2025 SHOP/CHAP Subsequent Outreach [facility] [address] [facility] [phone] Bernie Rollins RN 08/08/2025 3:30 PM CDT Office Visit [facility] Medical Group Cardiology at [address] [place] [address] Swapnil Wilson MD HFrEF (heart failure with reduced ejection fraction) (Primary Dx); Primary cardiomyopathy (HCC); Paroxysmal atrial fibrillation (HCC) 08/06/2025 SHOP/CHAP Subsequent [facility]reach [facility] [address] [place] [phone] Bernie Rollins, NETTE 07/31/2025 SHOP/CHAP Subsequent Outreach [facility] [address] [place] [phone] Bernie Rollins, NETTE 07/24/2025 SHOP/CHAP Subsequent Outreach [facility] [address] [place] [phone] Suma Duvall, PLANNING OFFICIAL 07/24/2025 Telephone [facility] Specialty Services [address] [place] [phone] Hilda Andrade RN 07/23/2025 Orders Only Psychiatry Elvis Escobar MD 07/23/2025 SHOP/CHAP Subsequent Outreach [facility] [address] [place] [phone] Suma Duvall, PLANNING OFFICIAL 07/22/2025 SHOP/CHAP Subsequent Outreach [facility] [address] [place] [phone] Suma Duvall, PLANNING OFFICIAL 07/18/2025 Telephone [facility] [address] [place] [phone] Elma Lucas, [facility] 07/17/2025 SHOP/CHAP Subsequent Outreach [facility] [address] [place] [phone] Bernie Rollins RN 07/16/2025 Telephone [facility] [address] [place] [phone] Elma LucasBRIANNE 07/15/2025 SHOP/CHAP Initial Outreach [facility] [address] [place] [phone] Bernie Rollins RN 07/15/2025 SHOP/CHAP Initial Eligibility Review [facility] [address] [phone] Bernie Rollins RN 07/08/2025 3:10 PM CDT - 07/13/2025 6:47 PM CDT Hospital Encounter [facility] 1 [place] [phone] Ben Rodriguez Jr., MD Heath, MD Nila Clifford Daniel L., MD Smith, MD Amna Pace, Tod Weinstein MD LIV (acute kidney injury) (Primary Dx); Abdominal pain; Bilious vomiting with nausea; Pelvic pain; Dehydration; RLQ abdominal pain; Umbilical hernia without obstruction and without gangrene; Left femoral hernia without obstruction or gangrene; Fungal dermatitis; Yeast infection of the vagina; Bacterial vaginosis Discharge Disposition: Discharge to home or self care 07/04/2025 Anticoagulation Visit [facility] Medical Group Cardiology [address] [place] [phone] Salina Loja RN 07/03/2025 Orders Only [facility] Health Information Management [address] [place] [address] Scanning, Provider from Last 3 Months Immunizations Immunization Administration Dates Next Due Influenza, Quad, Adjuvantated, Intramuscular Influenza, Trivalent, High D ose, Split, Preservative Free, Intramuscular 08/19/2025 Pneumococcal Conjugate Pcv20 08/31/2024 Surgical History Surgery Date Site/Laterality Comments OTHER SURGICAL HISTORY breast lump: HYSTERECTOMY 1982 Hysterectomy OTHER SURGICAL HISTORY Sleep Apnea: Medical History Medical History Date Comments Hx Other Medical Diabetes Type I I Depression Depression Hypertension Hypertension Hx Other Medical 1979 breast lump Hx Other Medical DJD Sleep apnea 2012 Sleep Apnea Osteoarthritis Osteoarthritis Atrial fibrillation (HCC) [...] drink = 0.6 oz pur e alcohol) PHQ-2 Answer Date Recorded PHQ-2 Total Score 1 08/19/2025 Social Connection and Isolation Panel Answer Date Recorded In a typical week, how many times do you talk on the phone with family, friends, or neighbors? Three times a week 08/19/2025 How often do you get togethe r with friends or relatives? Three times a week 08/19/2025 How often do you attend chur ch or rastafari services? More than 4 times per year 08/19/2025 Do you belong to any clubs o r organizations such as restorationist groups, unions, fraternal or athletic groups, or school groups? Yes 08/19/2025 How often do you attend meet ings of the clubs or organizations you belong to? 1 to 4 times per year 08/19/2025 Are you , , di vorced, , never , or living with a partner? 08/19/2025 Overall Financial Resource Strain (CARDIA) Answe r Date Recorded How hard is it for you to pa y for the very basics like food, housing, medical care, and heating? Not very hard 08/20/2025 Hunger Vital Sign Answer Date Recorded Within the past 12 months, y ou worried that your food would run out before you got the money to buy more. Never true 08/28/20 25 Within the past 12 months, t he food you bought just didn't last and you didn't have money to get more. Never true 08/28/2025 PRAPARE - Transportation Answer Date Re corded In the past 12 months, has l ack of transportation kept you from medical appointments or from getting medications? No 08/07 In the past 12 months, has l ack of transportation kept you from meetings, work, or from getting things needed for daily living? No 08/19/2025 Housing Stability Vital Sign Answer Drew e Recorded In the last 12 months, was t here a time when you were not able to pay the mortgage or rent on time? No 08/19/2025 In the past 12 months, how m any times have you moved where you were living? 0 08/19/2025 At any time in the past 12 m [facility], were you homeless or living in a assisted (including now)? No 08/19/2025 [facility] Utilities Answer Date Recorded In the past 12 months has e [employer], gas, oil, or water company threatened to shut off services in your home? No 08/19/2025 Personal Safety Answer Date Recorded Have you ever been in or are you currently in a harmful physical or emotional relationship or is someone making you feel afraid or unsafe? Denies 08/16/2025 Comments Unknown Sex and Gender Information Value Date Recorded Sex Assigned at Not on file Legal Sex Female 1:20 PM [employer] Gender Identity Not on file Sexual Orientation Not on file Obstetrics History Last Filed Vital Signs Vital Sign Reading Time Taken Comments Blood Pressure 119/82 08/28/2025 9:50 AM CDT Pulse 108 08/28/2025 9:50 AM CDT irregular; provider aware Temperature 36.1 C (97 F) 08/28/2025 9:50 AM CDT Respiratory Rate 18 08/28/2025 9:50 AM CDT Oxygen Saturation 98% 08/28/2025 9:5 0 AM CDT Inhaled Oxygen Concentration - - Weight 96.7 kg (213 lb 3.2 oz) 08/28/2025 9:50 AM CDT Height 167.6 cm (5' 6) 08/16/2025 8:50 PM CDT Body Mass Index 34.41 08/16/2025 8:50 PM CDT Plan of Treatment Scheduled Procedures Name Priority Associated Diagnoses Date/Ti me COLONOSCOPY Open Access Abdominal pain Bilious vomiting with nausea ESOPHAGOGASTRODUODENOSCOPY Open Access Abdominal pain Bilious vomiting with nausea Health Maintenance Due Date Last Done Comments Albumin Creatinine Ratio, Urine 1945 Hepatitis C Screening 1945 Osteoporosis Screening-Bone Density Scan 1945 Dilated Eye Exam 1946 Foot Exam 1946 Hepatitis B Screening 1964 Zoster Vaccine (1 of 2) 1996 Well Visit 65+ 2011 Covid-19 Vaccine (2023-2 5 season) 2025 08/31/2024, 04/23/2022, 08/25/2021, Additional history exists Hemoglobin A1C 02/13/2026 08/15/2025, 07/19/2015 Depression Screening 08/15/2026 08/15/2025 Lipid Panel 08/16/2026 08/16/2025, 07/08, 11/21/2014 Fall Risk Assessment 08/24/2026 08/24/2025 eGFR 08/28/2026 08/28/2025, 08/07, 08/23/2025, Additional history exists DTaP/Tdap/Td Vaccine (2 - Td or Tdap) 10/05/2026 10/05/2016 Pneumococcal vaccine 65+ Completed 024, 10/02/2019, 09/07/2019 Influenza Vaccine Completed 08/19/2025, , 09/21/2023, Additional history exists Procedures Procedure Name Priority Date/Time Associated Diagnosis Comments EGFR Routine 08/28/2025 11:27 AM CDT HFrEF (heart failure with reduced ejection fraction) BASIC METABOLIC PANEL Routine 08/28/2025 11:27 AM CDT HFrEF (heart failure with reduced ejection fraction) POCT GLUCOSE DEVICE Routine 08/24/2025 1 1:03 AM CDT POCT GLUCOSE DEVICE Routine 08/24/2025 7 :43 AM CDT EGFR Routine 08/24/2025 3:00 AM CDT PHOSPHORUS Routine 08/24/2025 3:00 AM CDT MAGNESIUM Routine 08/24/2025 3:00 AM CDT CBC WITHOUT DIFFERENTIAL Routine 08/24/2025 3:00 AM CDT BASIC METABOLIC PANEL Routine 08/24/2025 3:00 AM CDT POCT GLUCOSE DEVICE Routine 08/23/2025 7 :52 PM CDT POCT GLUCOSE DEVICE Routine 08/23/2025 5 :38 PM CDT POCT GLUCOSE DEVICE Routine 08/23/2025 1 :22 PM CDT POCT GLUCOSE DEVICE Routine 08/23/2025 1 1:15 AM CDT POCT GLUCOSE DEVICE Routine 08/23/2025 8 :29 AM CDT EGFR Routine 08/23/2025 4:17 AM CDT PHOSPHORUS Routine 08/23/2025 4:17 AM CDT MAGNESIUM Routine 08/23/2025 4:17 AM CDT CBC WITHOUT DIFFERENTIAL Routine 08/23/2025 4:17 AM CDT BASIC METABOLIC PANEL Routine 08/23/2025 4:17 AM CDT EGFR STAT 08/22/2025 11:09 PM CDT RENAL FUNCTION PANEL STAT 08/22/2025 11:09 PM CDT POCT GLUCOSE DEVICE Routine 08/22/2025 7 :39 PM CDT POCT GLUCOSE DEVICE Routine 08/22/2025 5 :16 PM CDT POCT GLUCOSE DEVICE Routine 08/22/2025 1 2:15 PM CDT POCT GLUCOSE DEVICE Routine 08/22/2025 7 :52 AM CDT CP-CRE CULTURE, SURVEILLANCE Routine 08/22/2025 6:02 AM CDT EGFR Routine 08/22/2025 4:47 AM CDT HAPTOGLOBIN Routine 08/22/2025 4:47 AM CDT LACTATE DEHYDROGENASE Routine 08/22/2025 4:47 AM CDT PHOSPHORUS Routine 08/22/2025 4:47 AM CDT VITAMIN D 25 HYDROXY Routine 08/22/2025 4:47 AM CDT CALCIUM, IONIZED Routine 08/22/2025 4:47 AM CDT PTH Routine 08/22/2025 4:47 AM CDT MAGNESIUM Routine 08/22/2025 4:47 AM CDT CBC WITHOUT DIFFERENTIAL Routine 08/22/2025 4:47 AM CDT BASIC METABOLIC PANEL Routine 08/22/2025 4:47 AM CDT URINALYSIS, MICROSCOPIC ONLY Routine 08/21/2025 10:30 PM CDT OSMOLALITY, URINE Routine 08/21/2025 10: 30 PM CDT PROTEIN / CREATININE RATIO, URINE, RANDOM Routine 08/21/2025 10:30 PM CDT URINALYSIS AND REFLEX TO MICROSCOPIC Routine 08/21/2025 10:30 PM CDT POCT GLUCOSE DEVICE Routine 08/21/2025 8 :33 PM CDT POCT GLUCOSE DEVICE Routine 08/21/2025 6 :50 PM CDT POCT GLUCOSE DEVICE Routine 08/21/2025 5 :06 PM CDT SODIUM, URINE, RANDOM Routine 08/21/2025 3:49 PM CDT CREATININE, URINE, RANDOM Routine 08/21/2025 3:49 PM CDT UREA NITROGEN, URINE, RANDOM Routine 08/21/2025 3:49 PM CDT US KIDNEY COMPLETE IP Routine 08/21/2025 2: 35 PM CDT POCT GLUCOSE DEVICE Routine 08/21/2025 1 1:17 AM CDT EGFR STAT 08/21/2025 10:18 AM CDT MAGNESIUM STAT 08/21/2025 10:18 AM CDT CBC WITHOUT DIFFERENTIAL STAT 08/21/2025 10:18 AM CDT BASIC METABOLIC PANEL STAT 08/21/2025 10:18 AM CDT POCT GLUCOSE DEVICE Routine 08/21/2025 8 :07 AM CDT POCT GLUCOSE DEVICE Routine 08/20/2025 7 :56 PM CDT POCT GLUCOSE DEVICE Routine 08/20/2025 5 :32 PM CDT POCT GLUCOSE DEVICE Routine 08/20/2025 1 1:32 AM CDT EGFR Timed 08/20/2025 7:58 AM CDT MAGNESIUM Timed 08/20/2025 7:58 AM CDT BASIC METABOLIC PANEL Timed 08/20/2025 7:58 AM CDT POCT GLUCOSE DEVICE Routine 08/20/2025 7 :36 AM CDT EGFR Timed 08/20/2025 5:12 AM CDT CBC WITHOUT DIFFERENTIAL Routine 08/20/2025 5:12 AM CDT MAGNESIUM Timed 08/20/2025 5:12 AM CDT BASIC METABOLIC PANEL Timed 08/20/2025 5:12 AM CDT POCT GLUCOSE DEVICE Routine 08/19/2025 8 :01 PM CDT POCT GLUCOSE DEVICE Routine 08/19/2025 5 :23 PM CDT POCT GLUCOSE DEVICE Routine 08/19/2025 1 1:33 AM CDT EGFR Timed 08/19/2025 9:47 AM CDT MAGNESIUM Timed 08/19/2025 9:47 AM CDT BASIC METABOLIC PANEL Timed 08/19/2025 9:47 AM CDT POCT GLUCOSE DEVICE Routine 08/19/2025 7 :40 AM CDT EGFR Timed 08/18/2025 8:30 PM CDT CBC WITHOUT DIFFERENTIAL Routine 08/18/2025 8:30 PM CDT MAGNESIUM Timed 08/18/2025 8:30 PM CDT BASIC METABOLIC PANEL Timed 08/18/2025 8:30 PM CDT POCT GLUCOSE DEVICE Routine 08/18/2025 7 :11 PM CDT POCT GLUCOSE DEVICE Routine 08/18/2025 4 :47 PM CDT POCT GLUCOSE DEVICE Routine 08/18/2025 4 :36 PM CDT POCT GLUCOSE DEVICE Routine 08/18/2025 1 2:21 PM CDT POCT GLUCOSE DEVICE Routine 08/18/2025 7 :42 AM CDT POCT GLUCOSE DEVICE Routine 08/18/2025 7 :30 AM CDT EGFR Timed 08/18/2025 7:25 AM CDT MAGNESIUM Timed 08/18/2025 7:25 AM CDT BASIC METABOLIC PANEL Timed 08/18/2025 7:25 AM CDT EGFR Timed 08/17/2025 8:21 PM CDT CBC WITHOUT DIFFERENTIAL Routine 08/17/2025 8:21 PM CDT MAGNESIUM Timed 08/17/2025 8:21 PM CDT BASIC METABOLIC PANEL Timed 08/17/2025 8:21 PM CDT POCT GLUCOSE DEVICE Routine 08/17/2025 7 :37 PM CDT POCT GLUCOSE DEVICE Routine 08/17/2025 5 :01 PM CDT POCT GLUCOSE DEVICE Routine 08/17/2025 1 1:55 AM CDT EGFR Timed 08/17/2025 8:10 AM CDT MAGNESIUM Timed 08/17/2025 8:10 AM CDT BASIC METABOLIC PANEL Timed 08/17/2025 8:10 AM CDT POCT GLUCOSE DEVICE Routine 08/17/2025 7 :48 AM CDT EGFR Timed 08/16/2025 9:01 PM CDT CBC WITHOUT DIFFERENTIAL Routine 08/16/2025 9:01 PM CDT MAGNESIUM Timed 08/16/2025 9:01 PM CDT BASIC METABOLIC PANEL Timed 08/16/2025 9:01 PM CDT INFECTION PREVENTION VERNA AURIS PCR, SURVEILLANCE Routine 08/16/2025 9:01 PM CDT POCT GLUCOSE DEVICE Routine 08/16/2025 8 :13 PM CDT POCT GLUCOSE DEVICE Routine 08/16/2025 5 :29 PM CDT URINALYSIS, MICROSCOPIC ONLY Routine 08/16/2025 5:16 PM CDT URINE CULTURE Routine 08/16/2025 5:16 PM CDT URINALYSIS AND REFLEX TO MICROSCOPIC AND CULTURE Routine 08/16/2025 5:16 PM CDT TRANSTHORACIC ECHO (TTE) COMPLETE W DOPPLER/CF WO CONTRAST ED Urgent/IP Urgent 08/16/2025 5:08 PM CDT POCT GLUCOSE DEVICE Routine 08/16/2025 1 1:48 AM CDT US VEIN DUPLEX LOWER EXTREMITY LEFT LIMITED IP Routine 08/16/2025 10:37 AM CDT POCT GLUCOSE DEVICE Routine 08/16/2025 7 :41 AM CDT LIPID PANEL Routine 08/16/2025 5:48 AM CDT EGFR Routine 08/16/2025 5:48 AM CDT IRON PROFILE W/ IBC Routine 08/16/2025 5 :48 AM CDT FERRITIN Routine 08/16/2025 5:48 AM CDT MAGNESIUM Routine 08/16/2025 5:48 AM CDT BASIC METABOLIC PANEL Routine 08/16/2025 5:48 AM CDT CBC WITHOUT DIFFERENTIAL Routine 08/16/2025 5:48 AM CDT VITAMIN B12 Routine 08/16/2025 5:48 AM CDT POCT GLUCOSE DEVICE Routine 08/15/2025 1 0:17 PM CDT POCT GLUCOSE DEVICE Routine 08/15/2025 8 :06 PM CDT URINALYSIS, MICROSCOPIC ONLY STAT 08/15/2025 7:21 PM CDT URINALYSIS AND REFLEX TO MICROSCOPIC AND CULTURE STAT 08/15/2025 7:21 PM CDT TROPONIN I HIGH-SENSITIVITY 2-HOUR Timed 08/15/2025 6:49 PM CDT TARGET OPIOID SCREEN BY PRESSER HAND Routine 08/15/2025 5:32 PM CDT Chronic, continuous use of opioids DRUGS OF ABUSE SCREEN, URINE WITH REFLEX CONFIRMATION Routine 08/15/2025 5:32 PM CDT Chronic, continuous use of opioids PAIN MANAGEMENT PROFILE Routine 08/15/2025 5:32 PM CDT Chronic, continuous use of opioids POCUS THORACIC (LUNG UNLTRASOUND) 08/15/2025 5:16 PM CDT POCUS CARDIAC 08/15/2025 5:13 PM CDT EGFR STAT 08/15/2025 4:47 PM CDT DIFFERENTIAL AUTO STAT 08/15/2025 4:4 7 PM CDT PRO B-TYPE NATRIURETIC PEPTIDE STAT 08/15/2025 4:47 PM CDT TROPONIN I HIGH-SENSITIVITY SERIES (BASELINE, 2HR, 4HR, 6HR) STAT 08/15/2025 4:47 PM CDT COMPREHENSIVE METABOLIC PANEL STAT 08/15/2025 4:47 PM CDT CBC WITH AUTO DIFFERENTIAL STAT 08/15/2025 4:47 PM CDT XR CHEST 1 VIEW ED 08/15/2025 4:31 PM CDT ECG 12-LEAD STAT 08/15/2025 3:56 PM CDT POCT HEMOGLOBIN A1C Routine 08/15/2025 1 :37 PM CDT POCT GLUCOSE DEVICE Routine 07/13/2025 4 :30 [...] 1:51 AM CDT POTASSIUM, WHOLE BLOOD STAT 07/12/2025 9:31 AM CDT POCT GLUCOSE DEVICE Routine [...] SCAN - LABS 07/03/2025 PROTIME-INR Routine 07/03/2025 from Last 3 Months Results * (ABNORMAL) eGFR (08/28/2025 11:27 AM CDT) eGFR 16(L) >=60 mL/min/1. 73 m2 Comment: Interpretive Data [...] interpretive data was last reviewed 2021. Blood 08/28/2025 11:2 7 AM CDT 08/28/2025 12:57 PM CDT Shira Beck NP LAB BLOOD ORDERABLES Final R esult [facility] Department [place] [address] * (ABNORMAL) Basic metabolic panel (08/28/2025 11:27 AM CDT) Sodium 143 135 - 145 mmol/L Potassium, pl 4.9 3.3 - 4.9 mmol/L [facility] Chloride 105 97 - 110 mmol/L [facility] CO2 25 22 - 32 mmol/L [facility] Anion gap 13 2 - 15 mmol/L [facility] BUN 48(H) 6 - 25 mg/dL [facility] Creatinine 2.95(H) 0.60 - 1.10 mg/dL [facility] Glucose 131 70 - 199 mg/dL [facility] Comment: Interpretive Data Fasting glucose >/= 126 [...] interpretive data was last revised 2022. Calcium 9.0 8.5 - 10.3 mg/dL [facility] Blood 08/28/2025 11:2 7 AM CDT 08/28/2025 12:57 PM CDT us Shira Beck NP LAB BLOOD ORDERABLES Final R esult Performing Organization Address City/[facility]/ZIP Co de Phone Number [facility] Department [place] [place] [address] * POCT glucose (08/24/2025 11:03 AM CDT) Glucose, POC 156 70 - 199 mg/dL Blood 08/24/2025 11:0 3 AM CDT 08/24/2025 11:03 AM CDT us Hannah Pascual MD LAB POCT ORDERABLES - DEVICE Fi nal Result Performing Organization Address City/[facility]/ZIP Co de Phone Number [facility] Department [place] [address] * POCT glucose (08/24/2025 7:43 AM CDT) Glucose, POC 124 70 - 199 mg/dL Blood 08/24/2025 7:43 AM CDT 08/24/2025 7:43 AM CDT us Hannah Pascual MD LAB POCT ORDERABLES - DEVICE Fi nal Result Performing Organization Address [facility] Co de Phone Number [facility] [place] [place] [address] * (ABNORMAL) eGFR (08/24/2025 3:00 AM CDT) eGFR 13(L) >=60 mL/min/1. 73 m2 Comment: Interpretive Data [...] interpretive data was last reviewed 2021. Blood 08/24/2025 3:00 AM CDT 08/24/2025 4:23 AM CDT us Hannah Pascual MD LAB BLOOD ORDERABLES Final Resu lt Performing Organization Address [facility]/ZIP Co de Phone Number [facility] [place] [place] [address] * (ABNORMAL) CBC without differential (08/24/2025 3:00 AM CDT) WBC 3.89 3.80 - 9.90 K/cumm Hgb 8.3(L) 11.9 - 15.5 g/dL [facility] Hct 27.0(L) 35.6 - 45.5 % [facility] Plt 119(L) 150 - 400 K/cumm [facility] MPV 11.2 9.1 - 12.3 fL [facility] RBC 2.53(L) 3.90 - 5.20 M/cumm [facility] MCV 106.7(H) 81.3 - 96.4 fL [facility] MCH 32.8 27.1 - 33.3 pg [facility] MCHC 30.7(L) 32.3 - 35.7 g/dL [facility] RDW CV 16.0(H) 11.1 - 14.9 % [facility] RDW SD 63.3(H) 35.7 - 48.1 fL [facility] NRBC abs 0.00 0.00 - 0.01 K/cumm [facility] Blood 08/24/2025 3:00 AM CDT 08/24/2025 4:23 AM CDT us Hannah Pascual MD LAB BLOOD ORDERABLES Final Resu lt Performing Organization Address City/[facility]/ZIP Co de Phone Number [facility] Department [place] [address] * Phosphorus (08/24/2025 3:00 AM CDT) Pathologist [facility] Phosphorus, pl 4.1 2.3 - 4.5 mg/dL Blood 08/24/2025 3:00 AM CDT 08/24/2025 4:23 AM CDT Hannah Pascual MD LAB BLOOD ORDERABLES Final Resu lt [facility] [place] [address] * Magnesium (08/24/2025 3:00 AM CDT) Pathologist [facility] Magnesium 2.4 1.4 - 2.5 mg/dL Blood 08/24/2025 3:00 AM CDT 08/24/2025 4:23 AM CDT Hannah Pascual MD LAB BLOOD ORDERABLES Final Resu lt [facility] Department [place] [address] * (ABNORMAL) Basic metabolic panel (08/24/2025 3:00 AM CDT) [facility] Sodium 139 135 - 145 mmol/L Potassium, pl 4.9 3.3 - 4.9 mmol/L [facility] Chloride 104 97 - 110 mmol/L [facility] CO2 27 22 - 32 mmol/L [facility] Anion gap 8 2 - 15 mmol/L [facility] BUN 64(H) 6 - 25 mg/dL [facility] Creatinine 3.52(H) 0.60 - 1.10 mg/dL [facility] Glucose 120 70 - 199 mg/dL [facility] Comment: Interpretive Data Fasting glucose >/= 126 [...] 2022. Calcium 8.7 8.5 - 10.3 mg/dL [facility] Blood 08/24/2025 3:00 AM CDT 08/24/2025 4:23 AM CDT Hannah Pascual MD LAB BLOOD ORDERABLES Final Resu lt Performing Organization Address City/[facility]/ZIP Co de Phone Number [facility] Department [place] [address] * (ABNORMAL) POCT glucose (08/23/2025 7:52 PM CDT) Glucose, POC 227(H) 70 - 199 mg/dL Comment:Glu2: RN/MD Notified Glucose comment 1 Glu2: RN/MD Notified [facility] Blood 08/23/2025 7:52 PM CDT 08/23/2025 7:52 PM CDT us Hannah Pascual MD LAB POCT ORDERABLES - DEVICE Fi nal Result Performing Organization Address City/[facility] [place] [address] * POCT glucose (08/23/2025 5:38 PM CDT) Glucose, POC 194 70 - 199 mg/dL Blood 08/23/2025 5:38 PM CDT 08/23/2025 5:38 PM CDT Hannah Pascual MD LAB POCT ORDERABLES - DEVICE Fi nal Result Performing Organization Address [facility] Co de Phone Number [facility] [place] [address] * POCT glucose (08/23/2025 1:22 PM CDT) Glucose, POC 162 70 - 199 mg/dL Blood 08/23/2025 1:22 PM CDT 08/23/2025 1:22 PM CDT Hannah Pascual MD LAB POCT ORDERABLES - DEVICE Fi nal Result Performing Organization Address City/[facility] Co de Phone Number [facility] [place] [address] * (ABNORMAL) POCT glucose (08/23/2025 11:15 AM CDT) Glucose, POC 202(H) 70 - 199 mg/dL Blood 08/23/2025 11:1 5 AM CDT 08/23/2025 11:15 AM CDT Hannah Pascual MD LAB POCT ORDERABLES - DEVICE Fi nal Result Performing Organization Address [facility] Co de Phone Number [facility] Department [place] [address] * POCT glucose (08/23/2025 8:29 AM CDT) Glucose, POC 137 70 - 199 mg/dL Blood 08/23/2025 8:29 AM CDT 08/23/2025 8:29 AM CDT Hannah Pascual MD LAB POCT ORDERABLES - DEVICE Fi nal Result Performing Organization Address [facility] de Phone Number [facility] Department [place] [address] * (ABNORMAL) eGFR (08/23/2025 4:17 AM CDT) eGFR 12(L) >=60 mL/min/1. 73 m2 Comment: Interpretive Data [...] interpretive data was last reviewed 2021. Blood 08/23/2025 4:17 AM CDT 08/23/2025 5:53 AM CDT Hannah Pascual MD LAB BLOOD ORDERABLES Final Resu lt Performing Organization Address City/[facility] Co de Phone Number [facility] [place] [address] * (ABNORMAL) CBC without differential (08/23/2025 4:17 AM CDT) WBC 3.92 3.80 - 9.90 K/cumm Hgb 8.7(L) 11.9 - 15.5 g/dL [facility] Hct 26.9(L) 35.6 - 45.5 % [facility] Plt 104(L) 150 - 400 K/cumm [facility] MPV 11.5 9.1 - 12.3 fL [facility] RBC 2.58(L) 3.90 - 5.20 M/cumm [facility] MCV 104.3(H) 81.3 - 96.4 fL [facility] MCH 33.7(H) 27.1 - 33.3 pg [facility] MCHC 32.3 32.3 - 35.7 g/dL [facility] RDW CV 16.2(H) 11.1 - 14.9 % [facility] RDW SD 61.7(H) 35.7 - 48.1 fL [facility] NRBC abs 0.00 0.00 - 0.01 K/cumm [facility] Blood 08/23/2025 4:17 AM CDT 08/23/2025 5:50 AM CDT us Hannah Pascual MD LAB BLOOD ORDERABLES Final Resu lt [facility] [place] [address] * Phosphorus (08/23/2025 4:17 AM CDT) Pathologist [facility] Phosphorus, pl 3.9 2.3 - 4.5 mg/dL Blood 08/23/2025 4:17 AM CDT 08/23/2025 5:53 AM CDT Hannah Pascual MD LAB BLOOD ORDERABLES Final Resu lt Performing Organization Address City/[facility] Co de Phone Number [facility] Department [place] [address] * Magnesium (08/23/2025 4:17 AM CDT) [facility] Magnesium 2.4 1.4 - 2.5 mg/dL Blood 08/23/2025 4:17 AM CDT 08/23/2025 5:53 AM CDT Hannah Pascual MD LAB BLOOD ORDERABLES Final Resu lt Performing Organization Address [facility] de Phone Number [facility] [place] [place] [address] * (ABNORMAL) Basic metabolic panel (08/23/2025 4:17 AM CDT) [facility] Sodium 141 135 - 145 mmol/L Potassium, pl 5.0(H) 3.3 - 4.9 mmol/L [facility] Chloride 108 97 - 110 mmol/L [facility] CO2 25 22 - 32 mmol/L [facility] Anion gap 8 2 - 15 mmol/L [facility] BUN 63(H) 6 - 25 mg/dL [facility] Creatinine 3.72(H) 0.60 - 1.10 mg/dL [facility] Glucose 108 70 - 199 mg/dL [facility] Comment: Interpretive Data Fasting glucose >/= 126 [...] interpretive data was last revised 2022. Calcium 8.3(L) 8.5 - 10.3 mg/dL [facility] Blood 08/23/2025 4:17 AM CDT 08/23/2025 5:53 AM CDT us Hannah Pascual MD LAB BLOOD ORDERABLES Final Resu lt [facility] Department [place] [address] * (ABNORMAL) eGFR (08/22/2025 11:09 PM CDT) eGFR 12(L) >=60 mL/min/1. 73 m2 Comment: Interpretive Data [...] interpretive data was last reviewed 2021. Blood 08/22/2025 11:0 9 PM CDT 08/23/2025 12:20 AM CDT us Stella Turner MD LAB BLOOD ORDERABLE S Final Result [facility] One [facility] Department [place] [address] * (ABNORMAL) Renal function panel (08/22/2025 11:09 PM CDT) Sodium 139 135 - 145 mmol/L Potassium, pl 4.9 3.3 - 4.9 mmol/L [facility] Chloride 104 97 - 110 mmol/L [facility] CO2 26 22 - 32 mmol/L [facility] Anion gap 9 2 - 15 mmol/L [facility] BUN 61(H) 6 - 25 mg/dL [facility] Creatinine 3.72(H) 0.60 - 1.10 mg/dL [facility] Glucose 144 70 - 199 mg/dL [facility] Comment: Interpretive Data Fasting glucose >/= 126 [...] interpretive data was last revised 2022. Calcium 8.3(L) 8.5 - 10.3 mg/dL [facility] Phosphorus, pl 3.8 2.3 - 4.5 mg/dL [facility] Albumin 2.4(L) 3.5 - 5.0 g/dL [facility] Blood 08/22/2025 11:0 9 PM CDT 08/23/2025 12:20 AM CDT Stella Turner MD LAB BLOOD ORDERABLE S Final Result [facility] One [facility] Department [place] [address] * (ABNORMAL) POCT glucose (08/22/2025 7:39 PM CDT) Glucose, POC 233(H) 70 - 199 mg/dL Comment:Glu2: RN/MD Notified Glucose comment 1 Glu2: RN/MD Notified [facility] Blood 08/22/2025 7:39 PM CDT 08/22/2025 7:39 PM CDT us Hannah Pascual MD LAB POCT ORDERABLES - DEVICE Fi nal Result Performing Organization Address City/[facility]/[place] [address] * POCT glucose (08/22/2025 5:16 PM CDT) Glucose, POC 199 70 - 199 mg/dL Blood 08/22/2025 5:16 PM CDT 08/22/2025 5:16 PM CDT Hannah Pascual MD LAB POCT ORDERABLES - DEVICE Fi nal Result Performing Organization Address [facility] Co de Phone Number [facility] [place] [address] * (ABNORMAL) POCT glucose (08/22/2025 12:15 PM CDT) Glucose, POC 248(H) 70 - 199 mg/dL Blood 08/22/2025 12:1 5 PM CDT 08/22/2025 12:15 PM CDT Hannah Pascual MD LAB POCT ORDERABLES - DEVICE Fi nal Result Performing Organization Address City/[facility]/ZIP Co de Phone Number [facility] [place] [address] * POCT glucose (08/22/2025 7:52 AM CDT) Pathologist [facility] Glucose, POC 159 70 - 199 mg/dL Blood 08/22/2025 7:52 AM CDT 08/22/2025 7:52 AM CDT Hannah Pascual MD LAB POCT ORDERABLES - DEVICE Fi nal Result Performing Organization Address [facility] Co de Phone Number [facility] Department [place] [address] * CP-CRE culture, surveillance Rectal swab (08/22/2025 6:02 AM CDT) [facility] Report Final Report: Negative Rectal swab 08/22/2025 6:02 AM CDT 08/22/2025 6:25 AM CDT Narrative [facility] - 08/23/2025 12:25 PM CDT Interpretive Data The screening agar used for the detection of carbapenemase-producing Enterobacterales (CP-CRE) has not been approved by the Food and Drug Administration. The performance characteristics of this medium have been evaluated and verified by the [facility]. This media demonstrates highest sensitivity for KPC and NDM-1 producing isolates. This screening assay is exclusively intended for infection control and surveillance, not for patient diagnosis or treatment purposes. Current interpretive data was last revised on 2023. Joe Thornton MD LAB MICROBIOLOGY - GENERAL ORDER JUAN LUIS Final Result Performing Organization Address [facility] de Phone Number [facility] Department [place] [address] * (ABNORMAL) eGFR (08/22/2025 4:47 AM CDT) Pathologist [facility] eGFR 12(L) >=60 mL/min/1. 73 m2 Comment: Interpretive Data [...] interpretive data was last reviewed 2021. Blood 08/22/2025 4:47 AM CDT 08/22/2025 5:12 AM CDT Hannah Pascual MD LAB BLOOD ORDERABLES Final Resu lt Performing Organization Address City/[facility]/ZIP Co de Phone Number [facility] Department [place] [address] * (ABNORMAL) Calcium, ionized (08/22/2025 4:47 AM CDT) Calcium, Ionized 4.49(L) 4.50 - 5.10 mg/dL Blood 08/22/2025 4:47 AM CDT 08/22/2025 5:08 AM CDT Hannah Pascual MD LAB BLOOD ORDERABLES Final Resu lt [facility] Department [place] [address] * Vitamin D 25 hydroxy (08/22/2025 4:47 AM CDT) Vitamin D 25-OH 31 30 - 80 ng/mL Blood 08/22/2025 4:47 AM CDT 08/22/2025 5:12 AM CDT Hannah Pascual MD LAB BLOOD ORDERABLES Final Resu lt [facility] Department [place] [address] * (ABNORMAL) CBC without differential (08/22/2025 4:47 AM CDT) WBC 3.44(L) 3.80 - 9.90 K/cumm Hgb 8.3(L) 11.9 - 15.5 g/dL [facility] Hct 26.3(L) 35.6 - 45.5 % [facility] Plt 90(L) 150 - 400 K/cumm [facility] MPV 11.4 9.1 - 12.3 fL [facility] RBC 2.50(L) 3.90 - 5.20 M/cumm [facility] MCV 105.2(H) 81.3 - 96.4 fL [facility] MCH 33.2 27.1 - 33.3 pg [facility] MCHC 31.6(L) 32.3 - 35.7 g/dL [facility] RDW CV 16.1(H) 11.1 - 14.9 % [facility] RDW SD 61.8(H) 35.7 - 48.1 fL [facility] NRBC abs 0.00 0.00 - 0.01 K/cumm [facility] Blood 08/22/2025 4:47 AM CDT 08/22/2025 5:12 AM CDT Hannah Pascual MD LAB BLOOD ORDERABLES Final Resu lt [facility] Department [place] [address] * Phosphorus (08/22/2025 4:47 AM CDT) Phosphorus, pl 4.4 2.3 - 4.5 mg/dL Blood 08/22/2025 4:47 AM CDT 08/22/2025 5:12 AM CDT Hannah Pascual MD LAB BLOOD ORDERABLES Final Resu lt Performing Organization Address [facility] Co de Phone Number [facility] [place] [address] * (ABNORMAL) PTH (08/22/2025 4:47 AM CDT) PTH 157(H) 18 - 59 pg/mL Blood 08/22/2025 4:47 AM CDT 08/22/2025 5:12 AM CDT Hannah Pascual MD LAB BLOOD ORDERABLES Final Resu lt Performing Organization Address [facility] de Phone Number [facility] [place] [address] * Magnesium (08/22/2025 4:47 AM CDT) Magnesium 2.2 1.4 - 2.5 mg/dL Blood 08/22/2025 4:47 AM CDT 08/22/2025 5:12 AM CDT Hannah Pascual MD LAB BLOOD ORDERABLES Final Resu lt Performing Organization Address [facility] de Phone Number [facility] [place] [address] * Lactate dehydrogenase (LD) (08/22/2025 4:47 AM CDT) Lactate dehydrogenase (LDH) 229 100 - 250 Units/L Blood 08/22/2025 4:47 AM CDT 08/22/2025 5:12 AM CDT Hannah Pascual MD LAB BLOOD ORDERABLES Final Resu lt Performing Organization Address [facility] Co de Phone Number [facility] [place] [place] [address] * Haptoglobin (08/22/2025 4:47 AM CDT) Haptoglobin 44.0 30.0 - 200.0 mg/dL Blood 08/22/2025 4:47 AM CDT 08/22/2025 5:12 AM CDT aHnnah Pascual MD LAB BLOOD ORDERABLES Final Resu lt [facility] One [facility] Department [place] [address] * (ABNORMAL) Basic metabolic panel (08/22/2025 4:47 AM CDT) Pathologist [facility] Sodium 139 135 - 145 mmol/L Potassium, pl 5.0(H) 3.3 - 4.9 mmol/L [facility] Chloride 105 97 - 110 mmol/L [facility] CO2 26 22 - 32 mmol/L [facility] Anion gap 8 2 - 15 mmol/L [facility] BUN 57(H) 6 - 25 mg/dL [facility] Creatinine 3.79(H) 0.60 - 1.10 mg/dL [facility] Glucose 143 70 - 199 mg/dL [facility] Comment: Interpretive Data Fasting glucose >/= 126 [...] interpretive data was last revised 2022. Calcium 8.3(L) 8.5 - 10.3 mg/dL [facility] Blood 08/22/2025 4:47 AM CDT 08/22/2025 5:12 AM CDT Hannah Pascual MD LAB BLOOD ORDERABLES Final Resu lt Performing Organization Address City/[facility]/ZIP Co de Phone Number [facility] Department [place] [address] * (ABNORMAL) Urinalysis reflex to microscopic (08/21/2025 10:30 PM CDT) Color, ur Straw Yellow Clarity, ur Clear Clear [facility] Specific gravity, ur 1.018 1.003 - 1.030 [facility] pH, urine 6.0 [facility] Comment: Interpretive Data U rine pH is affected by diet, medications, systemic acid-base disturbances, and renal tubular function. pH may affect urinary stone formation. For example, urine pH below 6.0 may help reduce the tendency for calcium phosphate stones and pH greater than 6.0 may reduce the tendency for uric acid stone formation. Source: [facility] [employer] Current Interpretive Data was last revised on 2017 Protein, ur ql 1+(A) Negative [facility] Glucose, ur ql Negative Negative [facility] Ketones, ur Negative Negative [facility] Bilirubin, ur Negative Negative [facility] Blood, ur Negative Negative [facility] Urobilinogen, ur <2.0 <2.0 mg/dL [facility] Nitrite, ur Negative Negative [facility] Leukocyte esterase, ur 2+(A) Negative [facility] UA reflex comment Reflex to microscopic UA will be performed. [facility] Urine 08/21/2025 10:3 0 PM CDT 08/21/2025 10:55 PM CDT Hannah Pascual MD LAB URINE ORDERABLES Final Resu lt [facility] WILSON [facility] Department [place] [address] * (ABNORMAL) Protein / creatinine ratio, urine, random (08/21/2025 10:30 PM CDT) Protein, ur, quant 75.0 mg/dL Comment: Interpretive Data No reference range established. Current interpretive data was last revised 2019. Creatinine Ur 107.9 mg/dL [facility] Comment: Interpretive Data No reference range established. Current interpretive data was last revised 2019. Protein/creatinin e ratio 695.1(H) 0.0 - 180.0 mg/g CR [facility] Urine 08/21/2025 10:3 0 PM CDT 08/21/2025 11:06 PM CDT Hannah Pascual MD LAB URINE ORDERABLES Final Resu lt Performing Organization Address [facility]/ZIP Co de Phone Number [facility] Department [place] [address] * Osmolality, urine (08/21/2025 10:30 PM CDT) Osmo, ur 387 mOsm/kg Urine 08/21/2025 10:3 0 PM CDT 08/21/2025 11:06 PM CDT us Hannah Pascual MD LAB URINE ORDERABLES Final Resu lt Performing Organization Address [facility] Co de Phone Number [facility] Department [place] [address] * (ABNORMAL) Urinalysis, microscopic only (08/21/2025 10:30 PM CDT) WBC, ur 11-20(A) 0 - 5 /HPF RBC, ur 3-5(A) 0 - 2 /HPF [facility] Epithelial cells, squamous, ur 6-10(A) 0 - 5 /HPF [facility] Comment:Suggestive of contam ination. Consider recollection by clean catch. Bacteria, ur Trace(A) [facility] Mucous, ur Present(A ) [facility] Urine 08/21/2025 10:3 0 PM CDT 08/21/2025 10:56 PM CDT us Hannah Pascual MD LAB URINE ORDERABLES Final Resu lt Performing Organization Address City/[facility]/ZIP Co de Phone Number [facility] [place] [address] * POCT glucose (08/21/2025 8:33 PM CDT) Glucose, POC 190 70 - 199 mg/dL Blood 08/21/2025 8:33 PM CDT 08/21/2025 8:33 PM CDT us Hannah Pascual MD LAB POCT ORDERABLES - DEVICE Fi nal Result Performing Organization Address [facility] Co de Phone Number [facility] [place] [address] * POCT glucose (08/21/2025 6:50 PM CDT) Glucose, POC 171 70 - 199 mg/dL Blood 08/21/2025 6:50 PM CDT 08/21/2025 6:50 PM CDT us Hannah Pascual MD LAB POCT ORDERABLES - DEVICE Fi nal Result Performing Organization Address [facility] Co de Phone Number [facility] [place] [address] * POCT glucose (08/21/2025 5:06 PM CDT) Glucose, POC 170 70 - 199 mg/dL Blood 08/21/2025 5:06 PM CDT 08/21/2025 5:06 PM CDT Hannah Pascual MD LAB POCT ORDERABLES - DEVICE Fi nal Result Performing Organization Address City/[facility]/ZIP Co de Phone Number [facility] [place] [address] * Urea nitrogen, urine, random (08/21/2025 3:49 PM CDT) Urea nitrogen, ur 463 mg/dL Comment: Interpretive Data No reference range established. Current interpretive data was last revised 2019. Urine 08/21/2025 3:49 PM CDT 08/21/2025 4:40 PM CDT Hannah Pascual MD LAB URINE ORDERABLES Final Resu lt Performing Organization Address City/[facility] Co de Phone Number [facility] [place] [address] * Sodium, urine, random (08/21/2025 3:49 PM CDT) Sodium, ur 42 mmol/L Comment: Interpretive Data No reference range established. Current interpretive data was last revised 2019. Urine 08/21/2025 3:49 PM CDT 08/21/2025 4:40 PM CDT Hannah Pascual MD LAB URINE ORDERABLES Final Resu lt Performing Organization Address [facility] Co de Phone Number [facility] [place] [address] * Creatinine, urine, random (08/21/2025 3:49 PM CDT) Creatinine Ur 108.4 mg/dL Comment: Interpretive Data No reference range established. Current interpretive data was last revised 2019. Urine 08/21/2025 3:49 PM CDT 08/21/2025 4:40 PM CDT Hannah Pascual MD LAB URINE ORDERABLES Final Resu lt Performing Organization Address City/[facility]/ZIP Co de Phone [place] [address] * US Kidney Complete (08/21/2025 2:35 PM CDT) Anatomical Region Laterality Modality Kidney N/A Ultrasound 08/21/2025 4:04 PM CDT Impressions 08/21/2025 4:19 PM CDT Normal kidneys. No hydronephrosis. Dictated by: Dick Bowers MD The radiology attending physician has personally reviewed this study, and had reviewed and/or edited this written report and agrees with it. Electronically signed by: Gorge Nicole M.D. Narrative 08/21/2025 4:19 PM CDT EXAMINATION: COMPLETE RENAL SONOGRAM HISTORY: Acute kidney injury. COMPARISON: CT dated 07/08/2025 FINDINGS: Kidneys: The echogenicity of both kidneys is normal. The kidneys are small in size. The right kidney measures 11.9 cm in length, and the left, 10.6 cm in length. There is no hydronephrosis in either kidney. There are no renal calculi visualized. Bilateral renal cysts are noted without solid component. Bladder: The urinary bladder is normal Procedure Note Gorge Nicole MD - 08/21/2025 EXAMINATION: COMPLETE RENAL SONOGRAM HISTORY: Acute kidney injury. COMPARISON: CT dated 07/08/2025 FINDINGS: Kidneys: The echogenicity of both kidneys is normal. The kidneys are small in size. The right kidney measures 11.9 cm in length, and the left, 10.6 cm in length. There is no hydronephrosis in either kidney. There are no renal calculi visualized. Bilateral renal cysts are noted without solid component. Bladder: The urinary bladder is normal IMPRESSION: Normal kidneys. No hydronephrosis. Dictated by: Dick Bowers MD The radiology attending physician has personally reviewed this study, and had reviewed and/or edited this written report and agrees with it. Electronically signed by: Gorge Nicole M.D. Hannah Pascual MD IM US PROCEDURES Final Result * (ABNORMAL) POCT glucose (08/21/2025 11:17 AM CDT) Glucose, POC 252(H) 70 - 199 mg/dL Blood 08/21/2025 11:1 7 AM CDT 08/21/2025 11:17 AM CDT Hannah Pascual MD LAB POCT ORDERABLES - DEVICE Fi nal Result Performing Organization Address City/[facility]/ZIP Co de Phone Number [facility] Department [place] [address] * (ABNORMAL) eGFR (08/21/2025 10:18 AM CDT) eGFR 12(L) >=60 mL/min/1. 73 m2 Comment: Interpretive Data [...] interpretive data was last reviewed 2021. Blood 08/21/2025 10:1 8 AM CDT 08/21/2025 10:28 AM CDT Hannah Pascual MD LAB BLOOD ORDERABLES Final Resu lt Performing Organization Address City/[facility]/ZIP Co de Phone Number [facility] [place] [address] * (ABNORMAL) CBC without differential (08/21/2025 10:18 AM CDT) Pathologist [facility] WBC 3.18(L) 3.80 - 9.90 K/cumm Hgb 8.8(L) 11.9 - 15.5 g/dL [facility] Hct 28.4(L) 35.6 - 45.5 % [facility] Plt 94(L) 150 - 400 K/cumm [facility] MPV 11.7 9.1 - 12.3 fL [facility] RBC 2.68(L) 3.90 - 5.20 M/cumm [facility] MCV 106.0(H) 81.3 - 96.4 fL [facility] MCH 32.8 27.1 - 33.3 pg [facility] MCHC 31.0(L) 32.3 - 35.7 g/dL [facility] RDW CV 16.0(H) 11.1 - 14.9 % [facility] RDW SD 62.0(H) 35.7 - 48.1 fL [facility] NRBC abs 0.00 0.00 - 0.01 K/cumm [facility] Blood 08/21/2025 10:1 8 AM CDT 08/21/2025 10:28 AM CDT Hannah Pascual MD LAB BLOOD ORDERABLES Final Resu lt Performing Organization Address [facility] de Phone Number [facility] [place] [address] * Magnesium (08/21/2025 10:18 AM CDT) [facility] Magnesium 2.2 1.4 - 2.5 mg/dL Blood 08/21/2025 10:1 8 AM CDT 08/21/2025 10:28 AM CDT Hannah Pascual MD LAB BLOOD ORDERABLES Final Resu lt Performing Organization Address [facility]/ZIP Co de Phone Number [facility] [place] [place] [address] * (ABNORMAL) Basic metabolic panel (08/21/2025 10:18 AM CDT) Sodium 140 135 - 145 mmol/L Potassium, pl 4.8 3.3 - 4.9 mmol/L [facility] Chloride 103 97 - 110 mmol/L [facility] CO2 25 22 - 32 mmol/L [facility] Anion gap 12 2 - 15 mmol/L [facility] BUN 54(H) 6 - 25 mg/dL [facility] Creatinine 3.65(H) 0.60 - 1.10 mg/dL [facility] Glucose 212(H) 70 - 199 mg/dL [facility] Comment: Interpretive Data Fasting glucose >/= 126 [...] 2022. Calcium 7.8(L) 8.5 - 10.3 mg/dL [facility] Blood 08/21/2025 10:1 8 AM CDT 08/21/2025 10:28 AM CDT us Hannah Pascual MD LAB BLOOD ORDERABLES Final Resu lt [facility] Department [place] [address] * POCT glucose (08/21/2025 8:07 AM CDT) Glucose, POC 135 70 - 199 mg/dL Blood 08/21/2025 8:07 AM CDT 08/21/2025 8:07 AM CDT Hannah Pascual MD LAB POCT ORDERABLES - DEVICE Fi nal Result Performing Organization Address [facility] de Phone Number [facility] [place] [address] * (ABNORMAL) POCT glucose (08/20/2025 7:56 PM CDT) Glucose, POC 282(H) 70 - 199 mg/dL Comment:Glu2: RN/ Notified Glucose comment 1 Glu2: RN/ Notified [facility] Blood 08/20/2025 7:56 PM CDT 08/20/2025 7:56 PM CDT Hannah Pascual MD LAB POCT ORDERABLES - DEVICE Fi nal Result Performing Organization Address [facility] de Phone Number [facility] [place] [place] [address] * POCT glucose (08/20/2025 5:32 PM CDT) Glucose, POC 190 70 - 199 mg/dL Blood 08/20/2025 5:32 PM CDT 08/20/2025 5:32 PM CDT us Hannah Pascual MD LAB POCT ORDERABLES - DEVICE Fi nal Result Performing Organization Address [facility] Co de Phone Number [facility] [place] [place] [address] * (ABNORMAL) POCT glucose (08/20/2025 11:32 AM CDT) Glucose, POC 236(H) 70 - 199 mg/dL Comment:Glu2: RN/ Notified Glucose comment 1 Glu2: RN/ Notified [facility] Blood 08/20/2025 11:3 2 AM CDT 08/20/2025 11:32 AM CDT us Hannah Pascual MD LAB POCT ORDERABLES - DEVICE Fi nal Result Performing Organization Address [facility] Co de Phone Number [facility] [place] [address] * (ABNORMAL) eGFR (08/20/2025 7:58 AM CDT) eGFR 12(L) >=60 mL/min/1. 73 m2 Comment: Interpretive Data [...] interpretive data was last reviewed 2021. Blood 08/20/2025 7:58 AM CDT 08/20/2025 8:19 AM CDT us Mallorie Garzon MD LAB BLOOD ORDERABLES Final Re sult Performing Organization Address City/[facility] Co de Phone Number [facility] [place] [address] * Magnesium (08/20/2025 7:58 AM CDT) Magnesium 2.1 1.4 - 2.5 mg/dL Blood 08/20/2025 7:58 AM CDT 08/20/2025 8:19 AM CDT Mallorie Garzon MD LAB BLOOD ORDERABLES [facility] [place] [address] * (ABNORMAL) Basic metabolic panel (08/20/2025 7:58 AM CDT) Sodium 141 135 - 145 mmol/L Potassium, pl 4.8 3.3 - 4.9 mmol/L [facility] Chloride 106 97 - 110 mmol/L [facility] CO2 28 22 - 32 mmol/L [facility] Anion gap 7 2 - 15 mmol/L [facility] BUN 53(H) 6 - 25 mg/dL [facility] Creatinine 3.60(H) 0.60 - 1.10 mg/dL [facility] Glucose 121 70 - 199 mg/dL [facility] Comment: Interpretive Data Fasting glucose >/= 126 [...] interpretive data was last revised 2022. Calcium 8.0(L) 8.5 - 10.3 mg/dL [facility] Blood 08/20/2025 7:58 AM CDT 08/20/2025 8:19 AM CDT Mallorie Garzon MD LAB BLOOD ORDERABLES Final Re sult Performing Organization Address City/[facility]/ZIP Co de Phone Number [facility] [place] [address] * POCT glucose (08/20/2025 7:36 AM CDT) Glucose, POC 122 70 - 199 mg/dL Blood 08/20/2025 7:36 AM CDT 08/20/2025 7:36 AM CDT us Hannah Pascual MD LAB POCT ORDERABLES - DEVICE Fi nal Result Performing Organization Address [facility] Co de Phone Number [facility] [place] [address] * (ABNORMAL) eGFR (08/20/2025 5:12 AM CDT) eGFR 12(L) >=60 mL/min/1. 73 m2 Comment: Interpretive Data [...] interpretive data was last reviewed 2021. Blood 08/20/2025 5:12 AM CDT 08/20/2025 5:54 AM CDT us Mallorie Garzon MD LAB BLOOD ORDERABLES Final Re sult Performing Organization Address City/[facility]/ZIP Co de Phone Number [facility] [place] [address] * (ABNORMAL) CBC without differential (08/20/2025 5:12 AM CDT) WBC 3.54(L) 3.80 - 9.90 K/cumm Hgb 9.1(L) 11.9 - 15.5 g/dL [facility] Hct 27.7(L) 35.6 - 45.5 % [facility] Plt 109(L) 150 - 400 K/cumm [facility] MPV 11.3 9.1 - 12.3 fL [facility] RBC 2.65(L) 3.90 - 5.20 M/cumm [facility] MCV 104.5(H) 81.3 - 96.4 fL [facility] MCH 34.3(H) 27.1 - 33.3 pg [facility] MCHC 32.9 32.3 - 35.7 g/dL [facility] RDW CV 16.4(H) 11.1 - 14.9 % [facility] RDW SD 62.9(H) 35.7 - 48.1 fL [facility] NRBC abs 0.00 0.00 - 0.01 K/cumm [facility] Blood 08/20/2025 5:12 AM CDT 08/20/2025 5:56 AM CDT Mallorie Garzon MD LAB BLOOD ORDERABLES Final Re sult Performing Organization Address City/[facility] Co de Phone Number [facility] Department [place] [address] * Magnesium (08/20/2025 5:12 AM CDT) Pathologist [facility] Magnesium 2.2 1.4 - 2.5 mg/dL Blood 08/20/2025 5:12 AM CDT 08/20/2025 5:54 AM CDT Mallorie Garzon MD LAB BLOOD ORDERABLES Final Re sult Performing Organization Address City/[facility]/ZIP Co de Phone Number [facility] [place] [address] * (ABNORMAL) Basic metabolic panel (08/20/2025 5:12 AM CDT) Sodium 140 135 - 145 mmol/L Potassium, pl 5.5(H) 3.3 - 4.9 mmol/L [facility] Comment:Hemolyzed; Potassium value may be falsely elevated by as much as 0.6-1.0 mmol/L. Suggest redraw and reanalysis. Chloride 106 97 - 110 mmol/L [facility] CO2 27 22 - 32 mmol/L [facility] Anion gap 7 2 - 15 mmol/L [facility] BUN 52(H) 6 - 25 mg/dL [facility] Creatinine 3.56(H) 0.60 - 1.10 mg/dL [facility] Glucose 129 70 - 199 mg/dL [facility] Comment: Interpretive Data Fasting glucose >/= 126 [...] interpretive data was last revised 2022. Calcium 7.9(L) 8.5 - 10.3 mg/dL [facility] Blood 08/20/2025 5:12 AM CDT 08/20/2025 5:54 AM CDT Mallorie Garzon MD LAB BLOOD ORDERABLES Final Re sult [facility] Department [place] [address] * POCT glucose (08/19/2025 8:01 PM CDT) [facility] Signature Glucose, POC 187 70 - 199 mg/dL Blood 08/19/2025 8:01 PM CDT 08/19/2025 8:01 PM CDT Mallorie Garzon MD LAB POCT ORDERABLES - DEVICE Final Result Performing Organization Address [facility] Co de Phone Number [facility] [place] [address] * (ABNORMAL) POCT glucose (08/19/2025 5:23 PM CDT) Glucose, POC 237(H) 70 - 199 mg/dL Comment:Glu2: RN/MD Notified Glucose comment 1 Glu2: RN/MD Notified [facility] Blood 08/19/2025 5:23 PM CDT 08/19/2025 5:23 PM CDT Mallorie Garzon MD LAB POCT ORDERABLES - DEVICE Final Result Performing Organization Address [facility] Co de Phone Number [facility] [place] [address] * POCT glucose (08/19/2025 11:33 AM CDT) [facility] Glucose, POC 180 70 - 199 mg/dL Blood 08/19/2025 11:3 3 AM CDT 08/19/2025 11:33 AM CDT Mallorie Garzon MD LAB POCT ORDERABLES - DEVICE Final Result Performing Organization Address [facility] Co de Phone Number [facility] Department [place] [address] * (ABNORMAL) eGFR (08/19/2025 9:47 AM CDT) eGFR 13(L) >=60 mL/min/1. 73 m2 Comment: Interpretive Data [...] interpretive data was last reviewed 2021. Blood 08/19/2025 9:47 AM CDT 08/19/2025 10:29 AM CDT Mallorie Garzon MD LAB BLOOD ORDERABLES Final Re sult Performing Organization Address City/[facility]/ZIP Co de Phone Number [facility] Department [place] [address] * Magnesium (08/19/2025 9:47 AM CDT) Pathologist [facility] Magnesium 2.1 1.4 - 2.5 mg/dL Blood 08/19/2025 9:47 AM CDT 08/19/2025 10:29 AM CDT Mallorie Garzon MD LAB BLOOD ORDERABLES Final Re sult Performing Organization Address City/[facility]/ZIP Co de Phone Number [facility] Department [place] [address] * (ABNORMAL) Basic metabolic panel (08/19/2025 9:47 AM CDT) Sodium 140 135 - 145 mmol/L Potassium, pl 4.9 3.3 - 4.9 mmol/L [facility] Chloride 106 97 - 110 mmol/L [facility] CO2 24 22 - 32 mmol/L [facility] Anion gap 10 2 - 15 mmol/L [facility] BUN 47(H) 6 - 25 mg/dL [facility] Creatinine 3.35(H) 0.60 - 1.10 mg/dL [facility] Glucose 199 70 - 199 mg/dL [facility] Comment: Interpretive Data Fasting glucose >/= 126 [...] 2022. Calcium 7.7(L) 8.5 - 10.3 mg/dL [facility] Blood 08/19/2025 9:47 AM CDT 08/19/2025 10:29 AM CDT Mallorie Garzon MD LAB BLOOD ORDERABLES Final Re sult Performing Organization Address City/[facility]/ZIP Co de Phone Number [facility] Department [place] [place] [address] * POCT glucose (08/19/2025 7:40 AM CDT) Pathologist [facility] Glucose, POC 149 70 - 199 mg/dL Blood 08/19/2025 7:40 AM CDT 08/19/2025 7:40 AM CDT Mallorie Garzon MD LAB POCT ORDERABLES - DEVICE Final Result Performing Organization Address City/[facility]/ZIP Co de Phone Number [facility] Department [place] [address] * (ABNORMAL) eGFR (08/18/2025 8:30 PM CDT) [facility] eGFR 14(L) >=60 mL/min/1. 73 m2 Comment: Interpretive Data [...] interpretive data was last reviewed 2021. Blood 08/18/2025 8:30 PM CDT 08/18/2025 9:18 PM CDT us Mallorie Garzon MD LAB BLOOD ORDERABLES Final Re sult [facility] Department [place] [address] * (ABNORMAL) CBC without differential (08/18/2025 8:30 PM CDT) WBC 4.06 3.80 - 9.90 K/cumm Hgb 9.2(L) 11.9 - 15.5 g/dL [facility] Hct 28.8(L) 35.6 - 45.5 % [facility] Plt 147(L) 150 - 400 K/cumm [facility] MPV 10.8 9.1 - 12.3 fL [facility] RBC 2.76(L) 3.90 - 5.20 M/cumm [facility] MCV 104.3(H) 81.3 - 96.4 fL [facility] MCH 33.3 27.1 - 33.3 pg [facility] MCHC 31.9(L) 32.3 - 35.7 g/dL [facility] RDW CV 16.3(H) 11.1 - 14.9 % [facility] RDW SD 62.1(H) 35.7 - 48.1 fL [facility] NRBC abs 0.00 0.00 - 0.01 K/cumm [facility] Blood 08/18/2025 8:30 PM CDT 08/18/2025 9:18 PM CDT Mallorie Garzon MD LAB BLOOD ORDERABLES Final Re sult Performing Organization Address [facility] Co de Phone Number [facility] Department [place] [address] * Magnesium (08/18/2025 8:30 PM CDT) [facility] Magnesium 2.1 1.4 - 2.5 mg/dL Blood 08/18/2025 8:30 PM CDT 08/18/2025 9:18 PM CDT Mallorie Garzon MD LAB BLOOD ORDERABLES Final Re sult Performing Organization Address [facility] de Phone Number [facility] [place] [address] * (ABNORMAL) Basic metabolic panel (08/18/2025 8:30 PM CDT) [facility] Sodium 141 135 - 145 mmol/L Potassium, pl 4.8 3.3 - 4.9 mmol/L [facility] Chloride 105 97 - 110 mmol/L [facility] CO2 24 22 - 32 mmol/L [facility] Anion gap 12 2 - 15 mmol/L [facility] BUN 46(H) 6 - 25 mg/dL [facility] Creatinine 3.22(H) 0.60 - 1.10 mg/dL [facility] Glucose 194 70 - 199 mg/dL [facility] Comment: Interpretive Data Fasting glucose >/= 126 [...] 2022. Calcium 7.7(L) 8.5 - 10.3 mg/dL [facility] Blood 08/18/2025 8:30 PM CDT 08/18/2025 9:18 PM CDT Mallorie Garzon MD LAB BLOOD ORDERABLES Final Re sult Performing Organization Address [facility] Co de Phone Number [facility] [place] [address] * (ABNORMAL) POCT glucose (08/18/2025 7:11 PM CDT) Glucose, POC 250(H) 70 - 199 mg/dL Comment:Glu2: RN/MD Notified Glucose comment 1 Glu2: RN/MD Notified [facility] Blood 08/18/2025 7:11 PM CDT 08/18/2025 7:11 PM CDT Mallorie Garzon MD LAB POCT ORDERABLES - DEVICE Final Result Performing Organization Address [facility] Co de Phone Number [facility] [place] [address] * (ABNORMAL) POCT glucose (08/18/2025 4:47 PM CDT) Glucose, POC 212(H) 70 - 199 mg/dL Blood 08/18/2025 4:47 PM CDT 08/18/2025 4:47 PM CDT Mallorie Garzon MD LAB POCT ORDERABLES - DEVICE Final Result Performing Organization Address City/[facility] Co de Phone Number [facility] [place] [place] [address] * (ABNORMAL) POCT glucose (08/18/2025 4:36 PM CDT) Glucose, POC 202(H) 70 - 199 mg/dL Blood 08/18/2025 4:36 PM CDT 08/18/2025 4:36 PM CDT Mallorie Garzon MD LAB POCT ORDERABLES - DEVICE Final Result Performing Organization Address [facility] [place] [address] * POCT glucose (08/18/2025 12:21 PM CDT) Glucose, POC 166 70 - 199 mg/dL Blood 08/18/2025 12:2 1 PM CDT 08/18/2025 12:21 PM CDT Mallorie Garzon MD LAB POCT ORDERABLES - DEVICE Final Result Performing Organization Address City/[facility] [place] [address] * POCT glucose (08/18/2025 7:42 AM CDT) Glucose, POC 132 70 - 199 mg/dL Blood 08/18/2025 7:42 AM CDT 08/18/2025 7:42 AM CDT Mallorie Garzon MD LAB POCT ORDERABLES - DEVICE Final Result Performing Organization Address City/[facility]/[place] [address] * POCT glucose (08/18/2025 7:30 AM CDT) Glucose, POC 143 70 - 199 mg/dL Blood 08/18/2025 7:30 AM CDT 08/18/2025 7:30 AM CDT Mallorie Garzon MD LAB POCT ORDERABLES - DEVICE Final Result Performing Organization Address [facility] Co de Phone Number [facility] [place] [address] * (ABNORMAL) eGFR (08/18/2025 7:25 AM CDT) eGFR 15(L) >=60 mL/min/1. 73 m2 Comment: Interpretive Data [...] interpretive data was last reviewed 2021. Blood 08/18/2025 7:25 AM CDT 08/18/2025 7:46 AM CDT Mallorie Garzon MD LAB BLOOD ORDERABLES Final Re sult Performing Organization Address City/[facility]/ZIP Co de Phone Number [facility] [place] [address] * Magnesium (08/18/2025 7:25 AM CDT) Magnesium 1.9 1.4 - 2.5 mg/dL Blood 08/18/2025 7:25 AM CDT 08/18/2025 7:46 AM CDT Mallorie Garzon MD LAB BLOOD ORDERABLES Final Re sult [facility] Department [place] [address] * (ABNORMAL) Basic metabolic panel (08/18/2025 7:25 AM CDT) [facility] Sodium 143 135 - 145 mmol/L Potassium, pl 3.8 3.3 - 4.9 mmol/L [facility] Chloride 110 97 - 110 mmol/L [facility] CO2 27 22 - 32 mmol/L [facility] Anion gap 6 2 - 15 mmol/L [facility] BUN 42(H) 6 - 25 mg/dL [facility] Creatinine 3.02(H) 0.60 - 1.10 mg/dL [facility] Glucose 131 70 - 199 mg/dL [facility] Comment: Interpretive Data Fasting glucose >/= 126 [...] interpretive data was last revised 2022. Calcium 7.6(L) 8.5 - 10.3 mg/dL [facility] Blood 08/18/2025 7:25 AM CDT 08/18/2025 7:46 AM CDT Mallorie Garzon MD LAB BLOOD ORDERABLES Final Re sult [facility] Department [place] [address] * (ABNORMAL) eGFR (08/17/2025 8:21 PM CDT) Pathologist [facility] eGFR 16(L) >=60 mL/min/1. 73 m2 Comment: Interpretive Data [...] interpretive data was last reviewed 2021. Blood 08/17/2025 8:21 PM CDT 08/17/2025 8:48 PM CDT us Mallorie Garzon MD LAB BLOOD ORDERABLES Final Re sult [facility] Department [place] [address] * (ABNORMAL) CBC without differential (08/17/2025 8:21 PM CDT) Pathologist [facility] WBC 3.80 3.80 - 9.90 K/cumm Hgb 8.3(L) 11.9 - 15.5 g/dL [facility] Hct 26.7(L) 35.6 - 45.5 % [facility] Plt 139(L) 150 - 400 K/cumm [facility] MPV 10.3 9.1 - 12.3 fL [facility] RBC 2.51(L) 3.90 - 5.20 M/cumm [facility] MCV 106.4(H) 81.3 - 96.4 fL [facility] MCH 33.1 27.1 - 33.3 pg [facility] MCHC 31.1(L) 32.3 - 35.7 g/dL [facility] RDW CV 16.4(H) 11.1 - 14.9 % [facility] RDW SD 63.7(H) 35.7 - 48.1 fL [facility] NRBC abs 0.00 0.00 - 0.01 K/cumm [facility] Blood 08/17/2025 8:21 PM CDT 08/17/2025 8:48 PM CDT Mallorie Garzon MD LAB BLOOD ORDERABLES Final Re sult Performing Organization Address City/[facility]/ZIP Co de Phone Number [facility] Department [place] [address] * Magnesium (08/17/2025 8:21 PM CDT) [facility] Magnesium 2.0 1.4 - 2.5 mg/dL Blood 08/17/2025 8:21 PM CDT 08/17/2025 8:48 PM CDT Mallorie Garzon MD LAB BLOOD ORDERABLES Final Re sult Performing Organization Address City/[facility]/ZIP Co de Phone Number [facility] Department [place] [address] * (ABNORMAL) Basic metabolic panel (08/17/2025 8:21 PM CDT) [facility] Sodium 143 135 - 145 mmol/L Potassium, pl 4.3 3.3 - 4.9 mmol/L [facility] Chloride 110 97 - 110 mmol/L [facility] CO2 24 22 - 32 mmol/L [facility] Anion gap 9 2 - 15 mmol/L [facility] BUN 41(H) 6 - 25 mg/dL [facility] Creatinine 2.84(H) 0.60 - 1.10 mg/dL [facility] Glucose 219(H) 70 - 199 mg/dL [facility] Comment: Interpretive Data Fasting glucose >/= 126 [...] interpretive data was last revised 2022. Calcium 7.9(L) 8.5 - 10.3 mg/dL [facility] Blood 08/17/2025 8:21 PM CDT 08/17/2025 8:48 PM CDT Mallorie Garzon MD LAB BLOOD ORDERABLES Final Re sult Performing Organization Address City/[facility]/ZIP Co de Phone Number [facility] Department [place] [address] * (ABNORMAL) POCT glucose (08/17/2025 7:37 PM CDT) Glucose, POC 225(H) 70 - 199 mg/dL Comment:Glu2: RN/MD Notified Glucose comment 1 Glu2: RN/MD Notified [facility] Blood 08/17/2025 7:37 PM CDT 08/17/2025 7:37 PM CDT Mallorie Garzon MD LAB POCT ORDERABLES - DEVICE Final Result Performing Organization Address City/[facility]/ZIP Co de Phone Number [facility] Department [place] [address] * POCT glucose (08/17/2025 5:01 PM CDT) Glucose, POC 160 70 - 199 mg/dL Blood 08/17/2025 5:01 PM CDT 08/17/2025 5:01 PM CDT Mallorie Garzon MD LAB POCT ORDERABLES - DEVICE Final Result Performing Organization Address City/State/[facility] Co de Phone Number [facility] [place] [address] * (ABNORMAL) POCT glucose (08/17/2025 11:55 AM CDT) Glucose, POC 212(H) 70 - 199 mg/dL Blood 08/17/2025 11:5 5 AM CDT 08/17/2025 11:55 AM CDT Mallorie Garzon MD LAB POCT ORDERABLES - DEVICE Final Result Performing Organization Address [facility] de Phone Number [facility] Department [place] [address] * (ABNORMAL) eGFR (08/17/2025 8:10 AM CDT) eGFR 17(L) >=60 mL/min/1. 73 m2 [...] interpretive data was last reviewed 2021. Blood 08/17/2025 8:10 AM CDT 08/17/2025 8:52 AM CDT Mallorie Garzon MD LAB BLOOD ORDERABLES Final Re sult [facility] Department [place] [address] * Magnesium (08/17/2025 8:10 AM CDT) Pathologist [facility] Magnesium 2.1 1.4 - 2.5 mg/dL Blood 08/17/2025 8:10 AM CDT 08/17/2025 8:52 AM CDT Mallorie Garzon MD LAB BLOOD ORDERABLES Final Re sult Performing Organization Address [facility] de Phone Number [facility] Department [place] [address] * (ABNORMAL) Basic metabolic panel (08/17/2025 8:10 AM CDT) [facility] Sodium 143 135 - 145 mmol/L Potassium, pl 4.7 3.3 - 4.9 mmol/L [facility] Chloride 108 97 - 110 mmol/L [facility] CO2 26 22 - 32 mmol/L [facility] Anion gap 9 2 - 15 mmol/L [facility] BUN 34(H) 6 - 25 mg/dL [facility] Creatinine 2.75(H) 0.60 - 1.10 mg/dL [facility] Glucose 119 70 - 199 mg/dL [facility] Comment: Interpretive Data Fasting glucose >/= 126 [...] interpretive data was last revised 2022. Calcium 8.2(L) 8.5 - 10.3 mg/dL [facility] Blood 08/17/2025 8:10 AM CDT 08/17/2025 8:52 AM CDT Mallorie Garzon MD LAB BLOOD ORDERABLES Final Re sult Performing Organization Address City/[facility]/ZIP Co de Phone Number [facility] Department [place] [address] * POCT glucose (08/17/2025 7:48 AM CDT) Glucose, POC 119 70 - 199 mg/dL Blood 08/17/2025 7:48 AM CDT 08/17/2025 7:48 AM CDT Mallorie Garzon MD LAB POCT ORDERABLES - DEVICE Final Result Performing Organization Address City/[facility] Co de Phone Number [facility] [place] [address] * Infection Prevention Verna auris PCR, surveillance Axilla/Groin (08/16/2025 9:01 PM CDT) Pathologist [facility] Verna auris DNA Not Detected Not Detected [facility] Comment: Interpretive Data Testing performed by [facility] using the Yadira mike [id number] Verna auris assay. This assay detects DNA from Verna auris using Real-Time PCR. This assay is laboratory developed and is not cleared by the [place] Food and Drug Administration. The performance characteristics have been verified by the [facility]. Axilla/Groin 08/16/2025 9:01 PM CDT 08/16/2025 10:23 PM CDT Narrative SOURAV [facility] - 08/17/2025 1:30 PM CDT Order placed by [facility] due to ring surveillance. us Instant Order Generic Provider LAB MICROBIOLOGY - GENERAL ORDERABLES Final Result Performing Organization Address City/[facility]/ZIP Co de Phone Number [facility] [place] [address] [facility] * (ABNORMAL) eGFR (08/16/2025 9:01 PM CDT) Pathologist [facility] eGFR 18(L) >=60 mL/min/1. 73 m2 Comment: Interpretive Data [...] interpretive data was last reviewed 2021. Blood 08/16/2025 9:01 PM CDT 08/16/2025 9:49 PM CDT Mallorie Garzon MD LAB BLOOD ORDERABLES Final Re sult [facility] [place] [address] * (ABNORMAL) CBC without differential (08/16/2025 9:01 PM CDT) Pathologist [facility] WBC 3.85 3.80 - 9.90 K/cumm Hgb 8.4(L) 11.9 - 15.5 g/dL [facility] Hct 27.0(L) 35.6 - 45.5 % [facility] Plt 170 150 - 400 K/cumm [facility] MPV 10.3 9.1 - 12.3 fL [facility] RBC 2.55(L) 3.90 - 5.20 M/cumm [facility] MCV 105.9(H) 81.3 - 96.4 fL [facility] MCH 32.9 27.1 - 33.3 pg [facility] MCHC 31.1(L) 32.3 - 35.7 g/dL [facility] RDW CV 16.4(H) 11.1 - 14.9 % [facility] RDW SD 62.1(H) 35.7 - 48.1 fL [facility] NRBC abs 0.00 0.00 - 0.01 K/cumm [facility] Blood 08/16/2025 9:01 PM CDT 08/16/2025 9:50 PM CDT Mallorie Garzon MD LAB BLOOD ORDERABLES Final Re sult Performing Organization Address City/[facility]/ZIP Co de Phone Number [facility] [address] [place] [address] * Magnesium (08/16/2025 9:01 PM CDT) [facility] Magnesium 2.1 1.4 - 2.5 mg/dL Blood 08/16/2025 9:01 PM CDT 08/16/2025 9:49 PM CDT Mallorie Garzon MD LAB BLOOD ORDERABLES Final Re sult Performing Organization Address City/[facility]/ZIP Co de Phone Number [facility] [address] [place] [address] * (ABNORMAL) Basic metabolic panel (08/16/2025 9:01 PM CDT) [facility] Sodium 142 135 - 145 mmol/L Potassium, pl 4.6 3.3 - 4.9 mmol/L [facility] Chloride 109 97 - 110 mmol/L [facility] CO2 25 22 - 32 mmol/L [facility] Anion gap 8 2 - 15 mmol/L [facility] BUN 33(H) 6 - 25 mg/dL [facility] Creatinine 2.58(H) 0.60 - 1.10 mg/dL [facility] Glucose 174 70 - 199 mg/dL [facility] Comment: Interpretive Data Fasting glucose >/= 126 [...] interpretive data was last revised 2022. Calcium 8.3(L) 8.5 - 10.3 mg/dL [facility] Blood 08/16/2025 9:01 PM CDT 08/16/2025 9:49 PM CDT Mallorie Garzon MD LAB BLOOD ORDERABLES Final Re sult Performing Organization Address City/[facility]/ZIP Co de Phone Number [facility] [address] [place] [place] [address] * POCT glucose (08/16/2025 8:13 PM CDT) Glucose, POC 175 70 - 199 mg/dL Blood 08/16/2025 8:13 PM CDT 08/16/2025 8:13 PM CDT Mallorie Garzon MD LAB POCT ORDERABLES - DEVICE Final Result Performing Organization Address City/[facility]/ZIP Co de Phone Number [facility] [place] [place] [address] * POCT glucose (08/16/2025 5:29 PM CDT) Glucose, POC 156 70 - 199 mg/dL Blood 08/16/2025 5:29 PM CDT 08/16/2025 5:29 PM CDT Mallorie Garzon MD LAB POCT ORDERABLES - DEVICE Final Result Performing Organization Address City/[facility]/ZIP Co de Phone Number [facility] [place] [place] [address] * (ABNORMAL) Urinalysis reflex to microscopic and culture Urine (08/16/2025 5:16 PM CDT) Pathologist [facility] Color, ur Straw Yellow Clarity, ur Cloudy(A) Clear [facility] Specific gravity, ur 1.009 1.003 - 1.030 [facility] pH, urine 6.0 [facility] Comment: Interpretive Data U rine pH is affected by diet, medications, systemic acid-base disturbances, and renal tubular function. pH may affect urinary stone formation. For example, urine pH below 6.0 may help reduce the tendency for calcium phosphate stones and pH greater than 6.0 may reduce the tendency for uric acid stone formation. Source: [facility] Current Interpretive Data was last revised on 2017 Protein, ur ql 1+(A) Negative [facility] Glucose, ur ql Negative Negative [facility] Ketones, ur Negative Negative [facility] Bilirubin, ur Negative Negative [facility] Blood, ur Negative Negative [facility] Urobilinogen, ur <2.0 <2.0 mg/dL [facility] Nitrite, ur Negative Negative [facility] Leukocyte esterase, ur 1+(A) Negative [facility] UA reflex comment Reflex to microscopic UA will be performed. [facility] Urine 08/16/2025 5:16 PM CDT 08/16/2025 5:53 PM CDT Mallorie Garzon MD LAB MICROBIOLOGY - GENERAL OR DERABLES Final Result Performing Organization Address City/[facility]/ZIP Co de Phone Number [facility] Department [place] [address] * (ABNORMAL) Urinalysis, microscopic only (08/16/2025 5:16 PM CDT) WBC, ur 21-50(A) 0 - 5 /HPF RBC, ur 3-5(A) 0 - 2 /HPF [facility] Epithelial cells, squamous, ur 1-5 0 - 5 /HPF [facility] Epithelial cells, transitional, ur 1-5 0 - 0 /HPF [facility] Bacteria, ur 2+(A) [facility] Mucous, ur Present(A) [facility] Hyaline casts, ur 1-5 0 - 10 /LPF [facility] Culture Reflex Comment Reflex to urine culture will be performed. [facility] Urine 08/16/2025 5:16 PM CDT 08/16/2025 5:53 PM CDT us Mallorie Garzon MD LAB URINE ORDERABLES Final Re sult [facility] Department [place] [address] * (ABNORMAL) Urine culture Urine (08/16/2025 5:16 PM CDT) Report Amended Report - Complete: Greater than or equal to 100,000 colonies/mL of Escherichia coli Greater than or equal to 100,000 colonies/mL of Escherichia coli #2 (.) Organism ESCHERICHIA COLI [facility] Organism ESCHERICHIA COLI [facility] Urine 08/16/2025 5:16 PM CDT 08/16/2025 8:25 PM CDT Narrative [facility] - 08/21/2025 10:34 AM CDT Urine culture reflexed based upon urinalysis results. Testing performed by [facility] ([phone]) Organism Antibiotic Method Susceptibility Escherichia coli Ampicillin INTERPRETATION Susceptible Escherichia coli Cefazolin INTERPRETATION Susceptible Escherichia coli Nitrofurantoin INTERPRETATION Susceptible Escherichia coli Gentamicin INTERPRETATION Susceptible Escherichia coli Trimethoprim with Sulfamethoxazole IN TERPRETATION Susceptible Escherichia coli Meropenem INTERPRETATION Susceptible Escherichia coli Cefepime INTERPRETATION Susceptible Escherichia coli Ciprofloxacin INTERPRETATION Susceptible Escherichia coli Ceftazidime INTERPRETATION Susceptible Escherichia coli Ceftriaxone INTERPRETATION Susceptible Escherichia coli Piperacillin/Tazobactam INTERPRETATIO N Susceptible Escherichia coli Cephalexin INTERPRETATION Susceptible Escherichia coli Cefuroxime-axetil INTERPRETATION Susceptible Escherichia coli Cefdinir INTERPRETATION Susceptible Escherichia coli Amikacin INTERPRETATION Susceptible Escherichia coli Aztreonam INTERPRETATION Susceptible Escherichia coli Imipenem INTERPRETATION Susceptible Escherichia coli Ertapenem INTERPRETATION Susceptible Escherichia coli Minocycline INTERPRETATION Susceptible Escherichia coli Tobramycin INTERPRETATION Susceptible Escherichia coli Levofloxacin INTERPRETATION Susceptible Escherichia coli Doxycycline INTERPRETATION Susceptible Escherichia coli Fosfomycin INTERPRETATION Susceptible Escherichia coli Ampicillin INTERPRETATION Susceptible Escherichia coli Cefazolin INTERPRETATION Susceptible Escherichia coli Nitrofurantoin INTERPRETATION Susceptible Escherichia coli Gentamicin INTERPRETATION Susceptible Escherichia coli Trimethoprim with Sulfamethoxazole IN TERPRETATION Susceptible Escherichia coli Meropenem INTERPRETATION Susceptible Escherichia coli Cefepime INTERPRETATION Susceptible Escherichia coli Ciprofloxacin INTERPRETATION Susceptible Escherichia coli Ceftazidime INTERPRETATION Susceptible Escherichia coli Ceftriaxone INTERPRETATION Susceptible Escherichia coli Piperacillin/Tazobactam INTERPRETATIO N Susceptible Escherichia coli Cephalexin INTERPRETATION Susceptible Escherichia coli Cefuroxime-axetil INTERPRETATION Susceptible Escherichia coli Cefdinir INTERPRETATION Susceptible Escherichia coli Amikacin INTERPRETATION Susceptible Escherichia coli Aztreonam INTERPRETATION Susceptible Escherichia coli Imipenem INTERPRETATION Susceptible Escherichia coli Ertapenem INTERPRETATION Susceptible Escherichia coli Minocycline INTERPRETATION Susceptible Escherichia coli Tobramycin INTERPRETATION Susceptible Escherichia coli Levofloxacin INTERPRETATION Susceptible Escherichia coli Doxycycline INTERPRETATION Susceptible Escherichia coli Fosfomycin INTERPRETATION Susceptible Mallorie Garzon MD LAB MICROBIOLOGY - GENERAL OR DERABLES Edited Result - Final SOURAV [facility] Department of Laboratories [place], [place] [id number] * TRANSTHORACIC ECHO (TTE) COMPLETE W DOPPLER/CF WO CONTRAST (08/16/2025 5:08 PM CDT) EF Mod BP 38 % CONS SCIMAGE Anatomical Region Laterality Modality Ultrasound 08/16/2025 4:14 PM CDT Narrative 08/16/2025 5:50 PM CDT [facility] [place] [address] Transthoracic Echocardiographic Report Patient Name: HEATH SALMERON Carmen : 1945 (80y 2m) Sex: F Study Date: 08/16/2025 04:14:54 PM Ht(Inch): 65 Wt(Lb): 216.05 BSA: 2.04 Shoe Fitter: NATALY Location: [id number] Order Provider: RAPHAEL TEJEDA Heart Rate: 84 BMI: 35.95 Ref Provider: RAPHAEL TEJEDA PROCEDURES: Echocardiographic Report: Transthoracic complete echo with strain imaging, 2D, spectral and tissue Doppler, color flow Doppler, M-mode. INDICATIONS: Heart Failure. CONCLUSIONS: 1. Normal left ventricular size based on volume index. Concentric LV hypertrophy. Moderately depressed left ventricular systolic function. The Ejection Fraction (Au's) is measured at 38 %. Left ventricular diastolic function is indeterminate due to the presence of atrial fibrillation during the study. 2. Normal right ventricular size. Mild right ventricular hypokinesis. 3. Severely dilated left atrium. 4. No pericardial effusion. 5. Normal aortic root size at sinuses of Valsalva. Normal aortic root size when indexed. The ascending aorta is normal in size when indexed. Mild fibrocalcific change of the aortic root, consistent with atherosclerosis. 6. The IVC was >2.1 cm and collapsibility <50% (est. RA pressure 15 mmHg). 7. The Estimated PASP is : 35-40 mmHg. COMPARISONS: No previous study available for comparison. ATTESTATION: I have personally reviewed and interpreted this study without fellow or resident. DISCLAIMER: The study images and the final report will be retained in the patient chart by the Echo Laboratory for the legally required time period. This chart constitutes the legal record of any testing performed. FINDINGS: Left Ventricle: Normal left ventricular size based on volume index. Concentric LV hypertrophy. Moderately depressed left ventricular systolic function. The Ejection Fraction (Au's) is measured at 38 %. Left ventricular diastolic function is indeterminate due to the presence of atrial fibrillation during the study. Right Ventricle: Normal right ventricular size. Mild right ventricular hypokinesis. Left Atrium: Severely dilated left atrium. Right Atrium: The right atrium is normal in size. Mitral Valve: Mild calcification. Moderate mitral annular calcification. Mild mitral valve regurgitation. No stenosis present. The mean transmitral gradient is: 2 mmHg. Aortic Valve: Trileaflet aortic valve. Moderately calcified aortic valve leaflets. Mildly restricted aortic cusps. The mean transaortic gradient is 8 mmHg. The aortic valve area by the continuity equation (using VTI) is 1.78 cm2. Aortic valve dimensionless index is 0.49. Tricuspid Valve: Normal tricuspid valve structure. Mild tricuspid regurgitation. Pulmonic Valve: The pulmonic valve is not well visualized due to poor acoustic windows. Mild pulmonic regurgitation. Pericardium: No pericardial effusion. Aorta: Normal aortic root size at sinuses of Valsalva. Normal aortic root size when indexed. The ascending aorta is normal in size when indexed. Mild fibrocalcific change of the aortic root, consistent with atherosclerosis. IVC: The IVC was >2.1 cm and collapsibility <50% (est. RA pressure 15 mmHg). PASP: The Estimated PASP is : 35-40 mmHg. MEASUREMENTS: 2D/MM Value Range Doppler Value Range LVIDd 2D 3.89 cm [ 3.80 - 5.20 ] AV Peak Jessee 2.1 m/s [ 1.0 - 1.7 ] LVIDs 2D 3.24 cm [ 2.20 - 3.50 ] AV Peak PG 17.64 mmHg IVSd 2D 2.17 cm [ 0.60 - 0.90 ] AV Mean PG 8 mmHg LVPWd 2D 2.06 cm [ 0.60 - 0.90 ] AV VTI 33.1 cm LV Thickness Ratio 1.1 LVOT Peak Jessee 0.8 m/s [ 0.7 - 1.1 ] LV FS 2D 16.59 % [ 27.00 - 45.00 ] LVOT Peak PG 2.56 mmHg LV Mass 2D 398.95 g LVOT Mean PG 2 mmHg LV Mass Index 2D 195.17 g/m2 LVOT VTI 16.1 cm RWT 1.06 LVOT Diam 2.16 cm EDV Mod BP 108.73 ml [ 46.00 - 106.00 ] BELINDA VTI 1.78 cm2 LV EDV Index 53.19 ml/m2 LVOT/AV VTI 0.49 - Dimensionless index (DVI) ESV Mod BP 67.31 ml [ 14.00 - 42.00 ] MV E Peak Jessee 1.3 m/s [ 0.6 - 1.3 ] EF Mod BP 38 % [ 54 - 74 ] MV A Peak Jessee 0.3 m/s [ 1.0 - 1.2 ] LA Length 4C 6.79 cm MV E/A 6.2 ratio [ 0.8 - 1.5 ] LA Length 2C 5.14 cm MV Peak Jessee 1.1 m/s LA Volume BP 120.92 ml MV Peak PG 5.21 mmHg LA Volume Index 59.16 ml/m2 [ 16.00 - 34.00 ] MV Mean PG 2 mmHg RV Base Dimen 2D 3.3 cm [ 2.5 - 4.2 ] MV VTI 20.7 cm RV Mid Dimen 2D 2.6 cm MV Decel Time 234.27 msec [ 104.00 - 258.00 ] RV Length Dimen 2D 7.3 cm Lat E` Jessee 7.2 cm/sec [ 10.0 - 25.0 ] TAPSE 1.46 cm [ 1.71 - 5.00 ] RV S` 7.03 cm/sec RA Volume 40.92 ml TR Peak Jessee 3.3 m/s [ 1.0 - 2.8 ] RA Volume Index 20.02 ml/m2 TR Peak PG 43.6 mmHg AoR Diam 2D 3.28 cm [ 2.70 - 3.70 ] PV Peak Jessee 0.7 m/s [ 0.4 - 0.8 ] Ao Root Index 1.60 cm/m2 [ 1.00 - 2.00 ] PV Peak PG 1.96 mmHg Asc Ao Diam 2D 3.21 cm PI ED Jessee 117.52 m/sec Asc Ao Index 1.57 cm/m2 TV Annulus 2D 3.00 cm Electronically Signed By: Kyree Diallo [facility] 08/16/2025 5:49:06 PM CDT Procedure Note Kyree Diallo MD - 08/16/2025 [facility] Cardiac [place] [address] Transthoracic Echocardiographic Report Patient Name: HEATH SALMERON M : 1945 (80y 2m) Sex: F Study Date: 08/16/2025 04:14:54 PM Ht(Inch): 65 Wt(Lb): 216.05 BSA: 2.04 Shoe Fitter: R Location: [id number] Order Provider: RAPHAEL TEJEDA Heart Rate: 84 BMI: 35.95 Ref Provider: RAPHAEL TEJEDA PROCEDURES: Echocardiographic Report: Transthoracic complete echo with strain imaging,2D, spectral and tissue Doppler, color flow Doppler, M-mode. INDICATIONS: Heart Failure. CONCLUSIONS: 1. Normal left ventricular size based on volume index. Concentric LVhypertrophy. Moderately depressed left ventricular systolic function. The EjectionFraction (Au's) is measured at 38 %. Left ventricular diastolic function isindeterminate due to the presence of atrial fibrillation during the study. 2. Normal right ventricular size. Mild right ventricular hypokinesis. 3. Severely dilated left atrium. 4. No pericardial effusion. 5. Normal aortic root size at sinuses of Valsalva. Normal aortic root sizewhen indexed. The ascending aorta is normal in size when indexed. Mild fibrocalcificchange of the aortic root, consistent with atherosclerosis. 6. The IVC was >2.1 cm and collapsibility <50% (est. RA pressure 15mmHg). 7. The Estimated PASP is : 35-40 mmHg. COMPARISONS: No previous study available for comparison. ATTESTATION: I have personally reviewed and interpreted this study without fellow orresident. DISCLAIMER: The study images and the final report will be retained in the patientchart by the Echo Laboratory for the legally required time period. This chart constitutesthe legal record of any testing performed. FINDINGS: Left Ventricle: Normal left ventricular size based on volume index.Concentric LV hypertrophy. Moderately depressed left ventricular systolic function. TheEjection Fraction (Au's) is measured at 38 %. Left ventricular diastolicfunction is indeterminate due to the presence of atrial fibrillation during thestudy. Right Ventricle: Normal right ventricular size. Mild right ventricularhypokinesis. Left Atrium: Severely dilated left atrium. Right Atrium: The right atrium is normal in size. Mitral Valve: Mild calcification. Moderate mitral annular calcification.Mild mitral valve regurgitation. No stenosis present. The mean transmitral gradientis: 2 mmHg. Aortic Valve: Trileaflet aortic valve. Moderately calcified aortic valveleaflets. Mildly restricted aortic cusps. The mean transaortic gradient is 8 mmHg. Theaortic valve area by the continuity equation (using VTI) is 1.78 cm2. Aortic valvedimensionless index is 0.49. Tricuspid Valve: Normal tricuspid valve structure. Mild tricuspidregurgitation. Pulmonic Valve: The pulmonic valve is not well visualized due to pooracoustic windows. Mild pulmonic regurgitation. Pericardium: No pericardial effusion. Aorta: Normal aortic root size at sinuses of Valsalva. Normal aortic rootsize when indexed. The ascending aorta is normal in size when indexed. Mildfibrocalcific change of the aortic root, consistent with atherosclerosis. IVC: The IVC was >2.1 cm and collapsibility <50% (est. RA pressure 15mmHg). PASP: The Estimated PASP is : 35-40 mmHg. MEASUREMENTS: 2D/MM Value Range DopplerValue Range LVIDd 2D 3.89 cm [ 3.80 - 5.20 ] AV Peak Vel2.1 m/s [ 1.0 - 1.7 ] LVIDs 2D 3.24 cm [ 2.20 - 3.50 ] AV Peak PG17.64 mmHg IVSd 2D 2.17 cm [ 0.60 - 0.90 ] AV Mean PG8 mmHg LVPWd 2D 2.06 cm [ 0.60 - 0.90 ] AV VTI33.1 cm LV Thickness Ratio 1.1 LVOT Peak Vel0.8 m/s [ 0.7 - 1.1 ] LV FS 2D 16.59 % [ 27.00 - 45.00 ] LVOT Peak PG2.56 mmHg LV Mass 2D 398.95 g LVOT Mean PG2 mmHg LV Mass Index 2D 195.17 g/m2 LVOT VTI16.1 cm RWT 1.06 LVOT Diam2.16 cm EDV Mod BP 108.73 ml [ 46.00 - 106.00 ] BELINDA VTI1.78 cm2 LV EDV Index 53.19 ml/m2 LVOT/AV VTI0.49 - Dimensionless index (DVI) ESV Mod BP 67.31 ml [ 14.00 - 42.00 ] MV E Peak Vel1.3 m/s [ 0.6 - 1.3 ] EF Mod BP 38 % [ 54 - 74 ] MV A Peak Vel0.3 m/s [ 1.0 - 1.2 ] LA Length 4C 6.79 cm MV E/A6.2 ratio [ 0.8 - 1.5 ] LA Length 2C 5.14 cm MV Peak Vel1.1 m/s LA Volume BP 120.92 ml MV Peak PG5.21 mmHg LA Volume Index 59.16 ml/m2 [ 16.00 - 34.00 ] MV Mean PG2 mmHg RV Base Dimen 2D 3.3 cm [ 2.5 - 4.2 ] MV VTI20.7 cm RV Mid Dimen 2D 2.6 cm MV Decel Wedl622.27 msec [ 104.00 - 258.00 ] RV Length Dimen 2D 7.3 cm Lat E` Vel7.2 cm/sec [ 10.0 - 25.0 ] TAPSE 1.46 cm [ 1.71 - 5.00 ] RV S`7.03 cm/sec RA Volume 40.92 ml TR Peak Vel3.3 m/s [ 1.0 - 2.8 ] RA Volume Index 20.02 ml/m2 TR Peak PG43.6 mmHg AoR Diam 2D 3.28 cm [ 2.70 - 3.70 ] PV Peak Vel0.7 m/s [ 0.4 - 0.8 ] Ao Root Index 1.60 cm/m2 [ 1.00 - 2.00 ] PV Peak PG1.96 mmHg Asc Ao Diam 2D 3.21 cm PI ED Qzs132.52 m/sec Asc Ao Index1.57 cm/m2 TV Annulus 2D3.00 cm Electronically Signed By: Kyree Diallo [facility] 08/16/2025 5:49:06 PM CDT Raphael Tejeda MD CV ECHO PROCEDURES Final Result * POCT glucose (08/16/2025 11:48 AM CDT) [facility] Glucose, POC 182 70 - 199 mg/dL Blood 08/16/2025 11:4 8 AM CDT 08/16/2025 11:48 AM CDT Mallorie Garzon MD LAB POCT ORDERABLES - DEVICE Final Result [facility] Department [place] [address] * US VEIN DUPLEX LOWER EXTREMITY LEFT LIMITED, UNILATERAL (08/16/2025 10:37 AM CDT) Anatomical Region Laterality Modality Vascular Left Ultrasound 08/16/2025 9:21 AM CDT Narrative 08/17/2025 9:30 AM CDT [facility] - Department of Vascular Surgery, Vascular Laboratory [address] [place] [id number] Lower Extremity Venous Ultrasound Report Patient Name: HEATH SALMERON M : 1945 (80y 2m) Study Date: 08/16/2025 9:21:06 AM Sex: F Tech: LISSETTE Location: [id number] Ref Provider: RAPHAEL TEJEDA Quality: Adequate Order Provider: RAPHAEL TEJEDA PROCEDURES: Vascular Report: Venous Duplex imaging was performed in the left lower extremity. The common femoral, femoral, popliteal, posterior tibial, peroneal veins were evaluated for patency, spontaneity and phasicity with Doppler, compression and augmentation maneuvers. Great saphenous vein proximal at the junction was evaluated with compression maneuvers. INDICATIONS: Localized edema. FINDINGS: Performing Shoe Fitter: Bud DOMINGO RVT. Left: Venous Doppler signals in the left lower extremity are within normal limits for spontaneity and phasicity and respond normally to augmentation maneuvers. No evidence of deep vein thrombus by duplex, proximal to the calf. No evidence of superficial vein thrombus on the left. Comments: Contralateral common femoral vein is imaged for comparison and is patent. Unilateral (limited study) performed per M.D. order. CONCLUSIONS: 1. There is no evidence of acute deep vein thrombosis on the left. Noninvasive venous studies cannot rule out isolated calf vein obstruction. HISTORY: 80 y.o. female with PMH: cardiomyopathy, AF, presents for worsening heart failure and volume overload - PREVIOUS STUDIES: No previous studies for comparison. DISCLAIMER: The study images and the final report will be retained in the patient chart by the Vascular Laboratory for the legally required time period. This chart constitutes the legal record of any testing performed. ATTESTATION: I have reviewed and interpreted the pertinent images and measurements of this study. I attest to the conclusions in the final report that is provided above. Electronically Signed By: Yuan Partida MD [facility] [phone] 08/17/2025 9:29:07 AM CDT Procedure Note Yuan Partida MD - 08/17/2025 [facility] - Department of Vascular Surgery,Vascular Laboratory [address] [place] [address] Lower Extremity Venous Ultrasound Report Patient Name: HEATH SALMERON M : 1945 (80y 2m) Study Date: 08/16/2025 9:21:06 AM Sex: F Tech: Location: [id number] Ref Provider: RAPHAEL TEJEDA Quality: Adequate Order Provider: RAPHAEL TEJEDA PROCEDURES: Vascular Report: Venous Duplex imaging was performed in the left lower extremity. Thecommon femoral, femoral, popliteal, posterior tibial, peroneal veins were evaluated forpatency, spontaneity and phasicity with Doppler, compression and augmentationmaneuvers. Great saphenous vein proximal at the junction was evaluated with compressionmaneuvers. INDICATIONS: Localized edema. FINDINGS: Performing Shoe Fitter: Bud DOMINGO, RVT. Left: Venous Doppler signals in the left lower extremity are within normallimits for spontaneity and phasicity and respond normally to augmentation maneuvers.No evidence of deep vein thrombus by duplex, proximal to the calf. No evidence ofsuperficial vein thrombus on the left. Comments: Contralateral common femoral vein is imaged for comparison and is patent.Unilateral (limited study) performed per M.D. order. CONCLUSIONS: 1. There is no evidence of acute deep vein thrombosis on the left.Noninvasive venous studies cannot rule out isolated calf vein obstruction. HISTORY: 80 y.o. female with PMH: cardiomyopathy, AF, presents for worsening heartfailure and volume overload - PREVIOUS STUDIES: No previous studies for comparison. DISCLAIMER: The study images and the final report will be retained in the patientchart by the Vascular Laboratory for the legally required time period. This chartconstitutes the legal record of any testing performed. ATTESTATION: I have reviewed and interpreted the pertinent images and measurements ofthis study. I attest to the conclusions in the final report that is provided above. Electronically Signed By: Yuan Partida MD [facility] [phone] 08/17/2025 9:29:07 AM CDT us Raphael Tejeda MD IM US PROCEDURES Final R esult * POCT glucose (08/16/2025 7:41 AM CDT) Pathologist [facility] Glucose, POC 128 70 - 199 mg/dL Blood 08/16/2025 7:41 AM CDT 08/16/2025 7:41 AM CDT us Mallorie Garzon MD LAB POCT ORDERABLES - DEVICE Final Result [facility] [address] [facility] Department [place] [address] * (ABNORMAL) eGFR (08/16/2025 5:48 AM CDT) Pathologist [facility] eGFR 20(L) >=60 mL/min/1. 73 m2 Comment: [...] interpretive data was last reviewed 2021. Blood 08/16/2025 5:48 AM CDT 08/16/2025 6:26 AM CDT Raphael Tejeda MD LAB BLOOD ORDERABLES Nellie l Result Performing Organization Address City/[facility]/ZIP Co de Phone Number [facility] Department [place] [place] [address] * (ABNORMAL) Iron profile w/ IBC (08/16/2025 5:48 AM CDT) Pathologist [facility] Iron 48 35 - 145 mcg/dL TIBC 203(L) 250 - 400 mcg/dL [facility] Transferrin saturation 24 20 - 50 % [facility] Blood 08/16/2025 5:48 AM CDT 08/16/2025 6:26 AM CDT Raphael Tejeda MD LAB BLOOD ORDERABLES Nellie l Result [facility] Department [place] [address] * (ABNORMAL) CBC without differential (08/16/2025 5:48 AM CDT) WBC 3.38(L) 3.80 - 9.90 K/cumm Hgb 9.0(L) 11.9 - 15.5 g/dL [facility] Hct 28.6(L) 35.6 - 45.5 % [facility] Plt 187 150 - 400 K/cumm [facility] MPV 10.4 9.1 - 12.3 fL [facility] RBC 2.72(L) 3.90 - 5.20 M/cumm [facility] MCV 105.1(H) 81.3 - 96.4 fL [facility] MCH 33.1 27.1 - 33.3 pg [facility] MCHC 31.5(L) 32.3 - 35.7 g/dL [facility] RDW CV 16.3(H) 11.1 - 14.9 % [facility] RDW SD 62.3(H) 35.7 - 48.1 fL [facility] NRBC abs 0.00 0.00 - 0.01 K/cumm [facility] Blood 08/16/2025 5:48 AM CDT 08/16/2025 6:27 AM CDT Raphael Tejeda MD LAB BLOOD ORDERABLES Nellie l Result [facility] [place] [address] * Magnesium (08/16/2025 5:48 AM CDT) Magnesium 2.0 1.4 - 2.5 mg/dL Blood 08/16/2025 5:48 AM CDT 08/16/2025 6:26 AM CDT Raphael Tejeda MD LAB BLOOD ORDERABLES Nellie l Result [facility] [place] [address] * Ferritin (08/16/2025 5:48 AM CDT) Ferritin 131 13 - 150 ng/mL Blood 08/16/2025 5:48 AM CDT 08/16/2025 6:26 AM CDT Raphael Tejeda MD LAB BLOOD ORDERABLES Nellie l Result Performing Organization Address City/State/[facility] Co de Phone Number [facility] Department [place] [address] * Vitamin B12 (08/16/2025 5:48 AM CDT) Vitamin B12 888 230 - 1,250 pg/mL Blood 08/16/2025 5:48 AM CDT 08/16/2025 6:26 AM CDT Raphael Tejeda MD LAB BLOOD ORDERABLES Nellie l Result Performing Organization Address [facility] Co de Phone Number [facility] Department [place] [address] * Lipid panel (08/16/2025 5:48 AM CDT) Cholesterol 150 30 - 199 mg/dL Comment: Interpretive Data Ages < or = 19 years Acceptable: <170 mg/dL Borderline high: 170-199 mg/dL High: >or= 200 mg/dL Ages > or = 20 years Desirable: <200 mg/dL Borderline high: 200-239 mg/dL High: >or= 240 mg/dL Literature References: 1. Expert Panel on Integrated Guidelines for Cardiovascular Health and Risk Reduction in Children and Adolescents. Pediatrics 2011;128:S213 2. NCEP Expert Panel. Circulation 2004;110:227 Current Interpretive Data was last revised on 2018. Triglycerides 116 <=149 mg/dL [facility] Comment: Interpretive Data Ages < or = 9 years Acceptable: <75 mg/dL Borderline high: 75-99 mg/dL High: >or= 100 mg/dL Ages 10 to 20 years Acceptable: <90 mg/dL Borderline high: 90-129 mg/dL High: >or= 130 mg/dL Ages > or = 20 years Desirable: <150 mg/dL Borderline high: 150-199 mg/dL High: 200-499 mg/dL Very high: >or= 499 mg/dL Literature References: 1. Expert Panel on Integrated Guidelines for Cardiovascular Health and Risk Reduction in Children and Adolescents. Pediatrics 2011;128:S213 2. NCEP Expert Panel. Circulation 2004;110:227 Current Interpretive Data was last revised on 2018. HDL 56 >=40 mg/dL [facility] Comment: Interpretive Data Ages < or = 19 years Acceptable: >45 mg/dL Borderline low: 40-45 mg/dL Low: <40 mg/dL Ages > or = 20 years Desirable: >or= 60 mg/dL Low: <40 mg/dL Literature References: 1. Expert Panel on Integrated Guidelines for Cardiovascular Health and Risk Reduction in Children and Adolescents. Pediatrics 2011;128:S213 2. NCEP Expert Panel. Circulation 2004;110:227 Current Interpretive Data was last revised on 2018. LDL, calculated 73 <=129 mg/dL [facility] Comment: Interpretive Data Ages < or = 19 years Acceptable: <110 mg/dL Borderline high: 110-129 mg/dL High: >or= 130 mg/dL Ages > or = 20 years Optimal: <100 mg/dL Near optimal: 100-129 mg/dL Borderline high: 130-159 mg/dL High: >160 mg/dL Calculated using the Phuc LDL-C estimating equation. This equation was implemented on 2024. Prior to this date LDL-C was estimated using the Friedewald equation. Literature References: 1. Expert Panel on Integrated Guidelines for Cardiovascular Health and Risk Reduction in Children and Adolescents. Pediatrics 2011;128:S213 2. NCEP Expert Panel. Circulation 2004;110:227 3. Phuc Morales et al. AKIN Cardiol. 2020 March 07;5(5):540-548. doi: 10.1001/jamacardio.2020.0013 Current Interpretive Data was last revised on 2024. Non-HDL Cholesterol 94 mg/dL [facility] Comment: Interpretive Data Ages < or = 19 years Acceptable: <120 mg/dL Borderline high: 120-144 mg/dL High: >145 mg/dL Ages > or = 20 years When triglycerides are >200 mg/dL, Non-HDL cholesterol is a secondary target of therapy with treatment goals that are 30 mg/dL greater than the LDL cholesterol target. Literature References: 1. Expert Panel on Integrated Guidelines for Cardiovascular Health and Risk Reduction in Children and Adolescents. Pediatrics 2011;128:S213 2. NCEP Expert Panel. Circulation 2004;110:227 Current Interpretive Data was last revised on 2018. Chol/HDL ratio 3 [facility] Blood 08/16/2025 5:48 AM CDT 08/16/2025 6:26 AM CDT us Mallorie Garzon MD LAB BLOOD ORDERABLES Final Re sult [facility] Department [place] [address] * (ABNORMAL) Basic metabolic panel (08/16/2025 5:48 AM CDT) Sodium 145 135 - 145 mmol/L Potassium, pl 4.7 3.3 - 4.9 mmol/L [facility] Chloride 112(H) 97 - 110 mmol/L [facility] CO2 24 22 - 32 mmol/L [facility] Anion gap 9 2 - 15 mmol/L [facility] BUN 30(H) 6 - 25 mg/dL [facility] Creatinine 2.41(H) 0.60 - 1.10 mg/dL [facility] Glucose 131 70 - 199 mg/dL [facility] Comment: Interpretive Data Fasting glucose >/= 126 [...] 2022. Calcium 7.7(L) 8.5 - 10.3 mg/dL [facility] Blood 08/16/2025 5:48 AM CDT 08/16/2025 6:26 AM CDT Raphael Tejeda MD LAB BLOOD ORDERABLES Nellie l Result Performing Organization Address [facility] de Phone Number [facility] [place] [address] * POCT glucose (08/15/2025 10:17 PM CDT) Glucose, POC 135 70 - 199 mg/dL Blood 08/15/2025 10:1 7 PM CDT 08/15/2025 10:17 PM CDT Raphael Tejeda MD LAB POCT ORDERABLES - DEV ICE Final Result Performing Organization Address [facility] de Phone Number [facility] [place] [address] * POCT glucose (08/15/2025 8:06 PM CDT) Glucose, POC 135 70 - 199 mg/dL Blood 08/15/2025 8:06 PM CDT 08/15/2025 8:06 PM CDT Marcelina Ramsey MD LAB POCT ORDERABLES - D EVICE Final Result Performing Organization Address [facility] de Phone Number [facility] [place] [address] * (ABNORMAL) Urinalysis reflex to microscopic and culture Urine (08/15/2025 7:21 PM CDT) Color, ur Straw Yellow Clarity, ur Clear Clear [facility] Specific gravity, ur 1.011 1.003 - 1.030 [facility] pH, urine 6.5 [facility] Comment: Interpretive Data U rine pH is affected by diet, medications, systemic acid-base disturbances, and renal tubular function. pH may affect urinary stone formation. For example, urine pH below 6.0 may help reduce the tendency for calcium phosphate stones and pH greater than 6.0 may reduce the tendency for uric acid stone formation. Source: [facility] Current Interpretive Data was last revised on 2017 Protein, ur ql 1+(A) Negative [facility] Glucose, ur ql Negative Negative [facility] Ketones, ur Negative Negative [facility] Bilirubin, ur Negative Negative [facility] Blood, ur Negative Negative [facility] Urobilinogen, ur <2.0 <2.0 mg/dL [facility] Nitrite, ur Negative Negative [facility] Leukocyte esterase, ur Trace(A) Negative [facility] UA reflex comment Reflex to microscopic UA will be performed. [facility] Urine 08/15/2025 7:21 PM CDT 08/15/2025 7:28 PM CDT Zacarias Samuel MD LAB MICROBIOLOGY - GENERAL ORDER JUAN LUIS Final Result Performing Organization Address City/[facility] Co de Phone Number [facility] Department [place] [address] * (ABNORMAL) Urinalysis, microscopic only (08/15/2025 7:21 PM CDT) WBC, ur 0-5 0 - 5 /HPF RBC, ur 0-2 0 - 2 /HPF [facility] Epithelial cells, squamous, ur 1-5 0 - 5 /HPF [facility] Bacteria, ur 2+(A) [facility] Culture Reflex Comment Reflex conditions for urine culture (WBC >10) not met. [facility] Urine 08/15/2025 7:21 PM CDT 08/15/2025 7:28 PM CDT Zacarias Samuel MD LAB URINE ORDERABLES Final Resul t Performing Organization Address City/[facility] Co de Phone Number [facility] Department [place] [address] * (ABNORMAL) Troponin I high-sensitivity 2-hour (08/15/2025 6:49 PM CDT) Trop I hs 40(H) <=17 ng/L Comment: Interpretive Data For further hscTnI resources including the diagnostic algorithm and an aid in interpretation, copy and paste this link: [email or web address].testcatalog.org/show/[email or web address] Current Interpretive Data last revised 2020. Trop I hs delta 1 ng/L [facility] Trop I hs interp Insignificant [facility] Blood 08/15/2025 6:49 PM CDT 08/15/2025 7:02 PM CDT Alfonzo Peralta III, MD LAB BLOOD ORDER JUAN LUIS Final Result [facility] Department [place] [address] * Targeted Opioid Screen, Ur (08/15/2025 5:32 PM CDT) Pain mgt 6-Acetylmorphine, Ur Not Detected CutOff 10 ng/mL Pain mgt Buprenorphine, Ur Not Detected CutOff 5 ng/mL [facility] Pain mgt Buprenorphine metabolite (Norbuprenorphine), Ur Not Detected CutOff 5 ng/mL [facility] Pain mgt Codeine, Ur Not Detected CutOff 25 ng/mL [facility] Pain mgt Hydrocodone, Ur Detected CutOff 25 ng/mL [facility] Pain mgt Hydromorphone, Ur Not Detected CutOff 25 ng/mL [facility] Pain mgt Methadone, Ur Not Detected CutOff 25 ng/mL [facility] Pain mgt Methadone Metabolite (EDDP), Ur Not Detected CutOff 25 ng/mL [facility] Pain mgt Morphine, Ur Not Detected CutOff 25 ng/mL [facility] Pain mgt Oxycodone, Ur Not Detected CutOff 25 ng/mL [facility] Pain mgt Oxymorphone, Ur Not Detected CutOff 25 ng/mL [facility] Pain mgt Tapentadol, Ur Not Detected CutOff 25 ng/mL [facility] Pain mgt Tramadol, Ur Not Detected CutOff 25 ng/mL [facility] Pain mgt Tramadol metabolite (O-desmethyltramado l), Ur Not Detected CutOff 25 ng/mL [facility] Comment: Interpretive Data This test only detects free, unconjugated drugs. The absence of expected drug(s) and/or metabolite(s) may indicate non-compliance, inappropriate timing of specimen collection relative to the time of dosing, variability in absorption, diluted or adulterated urine, or other testing limitations. Questions concerning interpretation should be directed to the laboratory. The results of this test are to be used only for medical purposes and are not suitable for forensic use. This test was developed and its performance characteristics determined by [facility]. It has not been cleared or approved by the U.S. Food and Drug Administration. Current interpretive data was last revised 19. Pain mgt Naloxone, ur Not Detected cutoff 20 ng/ml [facility] Urine 08/15/2025 5:32 PM CDT 08/15/2025 5:32 PM CDT New Bejarano MD LAB URINE ORDERABLES Final Result [facility] One [facility] Department [place] [address] * (ABNORMAL) Drugs of Abuse Screen, Urine with Reflex Confirmation (08/15/2025 5:32 PM CDT) Pathologist [facility] Amphetamine, ur Not Detected CutOff 500ng/mL Comment: Interpretive Data - Amphetamines: Samples containing greater than 500 ng/mL d-methamphetamine or other cross-reacting amphetamine compounds are reported as positive. Amphetamine immunoassays are subject to significant false positive rates due to cross-reactivity of non-amphetamine drugs. Confirmatory testing required for definitive results. Current Interpretive Data was last reviewed 2023. Barbiturates, ur Not Detected CutOff 200ng/mL [facility] Comment: Interpretive Data - Barbiturates: Samples containing greater than 200 ng/mL secobarbital or other cross-reacting barbiturate compounds are reported as positive. False positive and false negative results are possible. Confirmatory testing required for definitive results. Current Interpretive Data was last reviewed 2023. Benzodiazepines, ur Not Detected CutOff 100ng/mL [facility] Comment: Interpretive Data - Benzodiazepines: Samples containing greater than 100 ng/mL nordiazepam or other cross-reacting compounds are reported as positive. False positive and false negative results are possible. Confirmatory testing required for definitive results. Current Interpretive Data was last reviewed 2023. Cannabinoids, ur Not Detected CutOff 50 ng/mL [facility] Comment: Interpretive Data - Cannabinoids: Samples containing greater than 50 ng/mL delta-9 THC -COOH or other cross- reacting compounds are reported as positive. False positive and false negative results are possible. Confirmatory testing required for definitive results. Current Interpretive Data was last reviewed 2023. Cocaine, ur Not Detected CutOff 150ng/mL [facility] Comment: Interpretive Data - Cocaine: Samples containing greater than 150 ng/mL benzoylecgonine or other cross- reacting compounds are reported as positive. False positive and false negative results are possible. Confirmatory testing required for definitive results. Current Interpretive Data was last reviewed 2023. Fentanyl, Ur Not Detected CutOff 5 ng/mL [facility] Comment: Interpretive Data - Fentanyl: Samples containing greater than 5 ng/mL norfentanyl, fentanyl, or other cross-reacting fentanyl compounds are reported as positive. False positive and false negative results are possible. Confirmatory testing required for definitive results. Current Interpretive Data was last reviewed 2024. Methadone, ur Not Detected CutOff 300ng/mL [facility] Comment: Interpretive Data - Methadone: Samples containing greater than 300 ng/mL d,l-methadone or other cross-reacting compounds are reported as positive. False positive and false negative results are possible. Confirmatory testing required for definitive results. Current Interpretive Data was last reviewed 2023. Opiates, ur Screen Positive, presumptive (A) CutOff 300ng/mL [facility] Comment: Interpretive Data - Opiates: Samples containing greater than 300 ng/mL morphine or other cross-reacting compounds are reported as positive. False positive and false negative results are possible. Confirmatory testing required for definitive results. Current Interpretive Data was last reviewed 2023. Oxycodone, ur Not Detected CutOff 100ng/mL [facility] Comment: Interpretive Data - Oxycodone: Samples containing greater than 100 ng/mL oxycodone or other cross-reacting compounds are reported as positive. False positive and false negative results are possible. Confirmatory testing required for definitive results. Current Interpretive Data was last reviewed 2023. Phencyclidine, ur Not Detected CutOff 25 ng/mL [facility] Comment: Interpretive Data - Phencyclidine: Samples containing greater than 25 ng/mL phencyclidine or other cross-reacting compounds are reported as positive. False positive and false negative results are possible. Confirmatory testing required for definitive results. Current Interpretive Data was last reviewed 2023. Urine Creatinine 62 mg/dL [facility] Comment: Interpretive Data Urine Creatinine: < 10 mg/dL is extremely dilute = or > 10 but < 20 mg/dL is dilute = or > 20 mg/dL is normal Current Interpretive Data was last revised on 2018. Urine 08/15/2025 5:32 PM CDT 08/15/2025 5:32 PM CDT Narrative [facility] - 08/15/2025 6:15 PM CDT Drug Screening is performed by immunoassay for medical purposes. If positive, confirmation testing will be performed for amphetamines, benzodiazepines, cocaine, fentanyl, methadone, opiates, oxycodone, and phencyclidine. 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 I agree with the findings. Images on file. Electronically signed by MATT NARVAEZ on Wednesday, August 27, 2025 at 7:47 AM I have reviewed the images & the resident's interpretation. I agree with the findings. Images on file. 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 I agree withthe findings. Images on file. Electronically signed by MATT NARVAEZ on Wednesday, August 27, 2025 at7:47 AM I have reviewed the images & the resident's interpretation. I agree withthe findings. Images on file. us Matt Narvaez MD POCUS ORDERABLES Final Re sult * POCUS Cardiac (08/15/2025 5:13 PM CDT) Anatomical Region Laterality Modality Other 08/15/2025 4:56 PM CDT Narrative 08/27/2025 7:48 AM CDT Performed by: Alexander Sandoval Cardiac: Exam type: Diagnostic Exam Information: Indication(s) for Exam: Dyspnea Exam Occurence: Initial Findings : Pericardial effusion: Absent Left ventricle: Severely reduced EF Right ventricle: Normal IVC: Normal IVC respiratory variation: Low collapsibility (<50%) Interpretation: Reduced LVEF Other : EPSS 17.6 Electronically signed by Alexander Sandoval on August at 9:51 PM I have reviewed the images & the resident's interpretation. I agree with the findings. Images on file. Electronically signed by MATT NARVAEZ on Wednesday, August 27, 2025 at 7:48 AM I have reviewed the images & the resident's interpretation. I agree with the findings. Images on file. Procedure Note Matt Narvaez MD - 08/27/2025 Performed by: Alexander Sandoval Cardiac: Exam type: Diagnostic Exam Information: Indication(s) for Exam: Dyspnea Exam Occurence: Initial Findings : Pericardial effusion: Absent Left ventricle: Severely reduced EF Right ventricle: Normal IVC: Normal IVC respiratory variation: Low collapsibility (<50%) Interpretation: Reduced LVEF Other : EPSS 17.6 Electronically signed by Alexander Sandoval on August 15t 9:51 PM I have reviewed the images & the resident's interpretation. I agree withthe findings. Images on file. Electronically signed by MATT NARVAEZ on Wednesday, August 27, 2025 at7:48 AM I have reviewed the images & the resident's interpretation. I agree withthe findings. Images on file. us Matt Narvaez MD POCUS ORDERABLES Final Re sult * (ABNORMAL) Troponin I high-sensitivity series (baseline, 2hr, 4hr, 6hr) (08/15/2025 4:47 PM CDT) Trop I hs 39(H) <=17 ng/L Comment: Interpretive Data For further hscTnI resources including the diagnostic algorithm and an aid in interpretation, copy and paste this link: [email or web address]://bjhlab.testcatalog.org/show/[email or web address] Current Interpretive Data last revised 2020. Blood 08/15/2025 4:47 PM CDT 08/15/2025 5:17 PM CDT us Matt Narvaez MD LAB BLOOD ORDERABLES Nellie chacon Result [facility] Department [place] [address] * (ABNORMAL) eGFR (08/15/2025 4:47 PM CDT) [facility] eGFR 20(L) >=60 mL/min/1. 73 m2 Comment: [...] interpretive data was last reviewed 2021. Blood 08/15/2025 4:47 PM CDT 08/15/2025 5:17 PM CDT us Alfonzo Peralta III, MD LAB BLOOD ORDER JUAN LUIS Final Result [facility] Department [place] [address] * Differential, auto (08/15/2025 4:47 PM CDT) Pathologist [facility] Neutrophil abs 2.13 1.50 - 6.50 K/cumm Imm gran abs 0.02 0.00 - 0.10 K/cumm [facility] Lymphocyte abs 1.12 0.80 - 3.30 K/cumm [facility] Monocyte abs 0.35 0.20 - 0.80 K/cumm [facility] Eosinophil abs 0.15 0.00 - 0.50 K/cumm [facility] Basophil abs 0.02 0.00 - 0.10 K/cumm [facility] Neutrophil pct 56.2 % [facility] Comment: Interpretive Data Percent cell count reference ranges are not reported, since discordance with absolute values may lead to misinterpretation of CBC data. Current Interpretive Data was last revised on 2018. Imm gran pct 0.5 % [facility] Comment: Interpretive Data Percent cell count reference ranges are not reported, since discordance with absolute values may lead to misinterpretation of CBC data. Current Interpretive Data was last revised on 2018. Lymphocyte pct 29.6 % [facility] Comment: Interpretive Data Percent cell count reference ranges are not reported, since discordance with absolute values may lead to misinterpretation of CBC data. Current Interpretive Data was last revised on 2018. Monocyte pct 9.2 % [facility] Comment: Interpretive Data Percent cell count reference ranges are not reported, since discordance with absolute values may lead to misinterpretation of CBC data. Current Interpretive Data was last revised on 2018. Eosinophil pct 4.0 % [facility] Comment: Interpretive Data Percent cell count reference ranges are not reported, since discordance with absolute values may lead to misinterpretation of CBC data. Current Interpretive Data was last revised on 2018. Basophil pct 0.5 % [facility] Comment: Interpretive Data Percent cell count reference ranges are not reported, since discordance with absolute values may lead to misinterpretation of CBC data. Current Interpretive Data was last revised on 2018. Blood 08/15/2025 4:47 PM CDT 08/15/2025 5:18 PM CDT us Alfonzo Peralta III, MD LAB BLOOD ORDER JUAN LUIS Final Result [facility] One [facility] Department [place] [address] * (ABNORMAL) Pro B-type natriuretic peptide (08/15/2025 4:47 PM CDT) NT-proBNP 15,641(H) <=450 pg/mL Comment: Interpretive Comments: A. Dyspnea in Acute Care Setting All Ages: < 300 pg/ml, acute heart failure unlikely. < 50 yrs: 300 - 450 pg/ml, further investigation warranted. > 450 pg/ml, acute heart failure likely. 50 - 74 yrs: 300 - 900 pg/ml, further investigation warranted. > 900 pg/ml, acute heart failure likely . > or = 75 yrs: 450 - 1800 pg/ml, further investigation warranted. > 1800 pg/ml, acute heart failure likely. B. Non-acute Setting < 75 yrs < 125 pg/ml, rules out heart failure. > or = 125 pg/ml, further investigation warranted. > or = 75 yrs < 450 pg/ml, rules out heart failure. > or = 450 pg/ml, further investigation warranted. - Knowledge of each individual patient's NT-proBNP range may be more useful than using similar cut-points for every patient. Please note that marked elevations in NT-proBNP levels may be observed in state other than Left Ventricular Congestive Failure, including: acute coronary syndromes, right heart strain/failure (including pulmonary embolism and cor pulmonale), critical illness, renal failure, as well as advanced age. - References: 1. Adiel FELIX et.al. Eur Heart J. 2006:27:330-337. 2. Susana RW, Gordon AM. J. AM Zak Cardiol: Cardiovasc Imag. 2009;2: 216- 225. Interpretive Data Last Revised Date: 2018. Blood 08/15/2025 4:47 PM CDT 08/15/2025 5:18 PM CDT us Zacarias Jimmie DOUGLAS LAB BLOOD ORDERABLES Final Resul t [facility] One [facility] Department of Laboratories [place], [place] [id number] * (ABNORMAL) CBC with auto differential (08/15/2025 4:47 PM CDT) WBC 3.79(L) 3.80 - 9.90 K/cumm Hgb 9.6(L) 11.9 - 15.5 g/dL [facility] Hct 31.0(L) 35.6 - 45.5 % [facility] Plt 186 150 - 400 K/cumm [facility] MPV 10.4 9.1 - 12.3 fL [facility] RBC 2.91(L) 3.90 - 5.20 M/cumm [facility] MCV 106.5(H) 81.3 - 96.4 fL [facility] MCH 33.0 27.1 - 33.3 pg [facility] MCHC 31.0(L) 32.3 - 35.7 g/dL [facility] RDW CV 16.1(H) 11.1 - 14.9 % [facility] RDW SD 63.1(H) 35.7 - 48.1 fL [facility] NRBC abs 0.00 0.00 - 0.01 K/cumm [facility] Blood Venous blood specimen / Unknown 08/15/2025 4:47 PM CDT 08/15/2025 5:18 PM CDT Matt Narvaez MD LAB BLOOD ORDERABLES Nellie chacon Result [facility] One [facility] Department [place] [address] * (ABNORMAL) Comprehensive metabolic panel (08/15/2025 4:47 PM CDT) Sodium 144 135 - 145 mmol/L Potassium, pl 5.0(H) 3.3 - 4.9 mmol/L [facility] Comment:Hemolyzed; Potassium value may be falsely elevated by as much as 0.3-0.5 mmol/L. Suggest redraw and reanalysis. Chloride 113(H) 97 - 110 mmol/L [facility] CO2 24 22 - 32 mmol/L [facility] Anion gap 7 2 - 15 mmol/L [facility] BUN 28(H) 6 - 25 mg/dL [facility] Creatinine 2.37(H) 0.60 - 1.10 mg/dL [facility] Glucose 126 70 - 199 mg/dL [facility] Comment: Interpretive Data Fasting glucose >/= 126 [...] interpretive data was last revised 2022. Calcium 8.3(L) 8.5 - 10.3 mg/dL [facility] Bilirubin, total 0.4 0.1 - 1.2 mg/dL [facility] Protein, pl 6.0(L) 6.5 - 8.5 g/dL [facility] Albumin 3.1(L) 3.5 - 5.0 g/dL [facility] Alk phos 47 40 - 130 Units/L [facility] ALT 10 7 - 45 Units/L [facility] AST 23 10 - 45 Units/L [facility] Comment:Hemolyzed; result ma y be falsely elevated Blood 08/15/2025 4:47 PM CDT 08/15/2025 5:17 PM CDT us Matt Narvaez MD LAB BLOOD ORDERABLES Nellie l Result [facility] One [facility] Department [place] [address] * XR Chest 1 Vw Portable (If patient hemodynamically UNstable or UNable to ambulate) (08/15/2025 4:31PM CDT) Anatomical Region Laterality Modality Body, Chest N/A Computed Radiogr aphy 08/15/2025 5:10 PM CDT Impressions 08/15/2025 5:26 PM CDT There is no focal pneumonic consolidation or pneumothorax. There are small left and trace right bilateral pleural effusions with bibasilar atelectasis. There is mild pulmonary vascular congestion. There is mild cardiomegaly. Dictated by: Delmis Connors MD The radiology attending physician has personally reviewed this study, and had reviewed and/or edited this written report and agrees with it. Electronically signed by: Cornel Pereira MD Narrative 08/15/2025 5:26 PM CDT EXAMINATION: 1 view chest radiograph HISTORY: Chest pain and shortness of breath with lower extremity swelling patient with history of heart failure. Procedure Note Cornel Pereira MD - 08/15/2025 EXAMINATION: 1 view chest radiograph HISTORY: Chest pain and shortness of breath with lower extremity swelling patient with history of heart failure. IMPRESSION: There is no focal pneumonic consolidation or pneumothorax. There are small left and trace right bilateral pleural effusions with bibasilar atelectasis. There is mild pulmonary vascular congestion. There is mild cardiomegaly. Dictated by: Delmis Connors MD The radiology attending physician has personally reviewed this study, and had reviewed and/or edited this written report and agrees with it. Electronically signed by: Cornel Pereira MD Matt Narvaez MD IMG XR PROCEDURES Final R esult * (ABNORMAL) ECG 12-LEAD (08/15/2025 3:56 PM CDT) Narrative [facility] - 08/15/2025 3:56 PM CDT Olvin Courtney MD 08/15/2025 3:58 PM ECG 12 lead Date/Time: 08/15/2025 3:56 PM Performed by: Olvin Courtney MD Authorized by: Irwin Hernandez MD Rate: ECG rate: 101 ECG rate assessment: tachycardic Rhythm: Rhythm: atrial fibrillation Ectopy: Ectopy: none QRS: QRS axis: Left QRS intervals: Normal Conduction: Conduction: abnormal Abnormal conduction: non-specific intraventricular conduction delay ST segments: ST segments: Normal T waves: T waves: non-specific Other findings: Other findings: LVH Previous ECG: Previous ECG: Compared to current Comparison ECG info: New afib with RVR from NSR on prior from 07/08/25 Similarity: Changes noted Interpretation: Interpretation: abnormal Recommended Follow-up: Recommended follow up: further workup in the ED Matt Narvaez MD ECG ORDERABLES Edited Re sult - Final Performing Organization Address [facility]/ZIP Co de Phone Number [facility] * (ABNORMAL) POCT hemoglobin A1c (08/15/2025 1:37 PM CDT) Hgb A1C, POC 6.2(H) 4.0 - 5.6 % Est Average Gluc POC 131 mg/dL [facility] Comment: The ADA recommends reporting an estimated Average Glucose (eAG) with all Hemoglobin A1c results using the equation derived from a study of 507 normal and diabetic adults. Minority populations were underrepresented and children were not included. (Diabetes Care 31:8320-0481, 2008). The eAG is not equivalent to a fasting glucose. Blood 08/15/2025 1:37 PM CDT 08/15/2025 1:37 PM CDT us New Bejarano MD POINT OF CARE TEST O RDERABLES Final Result Performing Organization Address [facility] Co de Phone Number [facility] Department [place] [address] * (ABNORMAL) POCT glucose (07/13/2025 4:30 PM CDT) Glucose, POC 233(H) 70 - 199 mg/dL Blood 07/13/2025 4:30 PM CDT 07/13/2025 4:30 PM CDT us Tod Woo MD LAB POCT ORDERABLES - DEVICE Final Result Performing Organization Address [facility] Co de Phone Number [facility] Department [place] [address] * POCT glucose (07/13/2025 12:05 PM CDT) Glucose, POC 139 70 - 199 mg/dL Blood 07/13/2025 12:0 5 PM CDT 07/13/2025 12:05 PM CDT Tod Woo MD LAB POCT ORDERABLES - DEVICE Final Result [facility] [place] [address] * POCT glucose (07/13/2025 7:25 AM CDT) Glucose, POC 101 70 - 199 mg/dL Blood 07/13/2025 7:25 AM CDT 07/13/2025 7:25 AM CDT Tod Woo MD LAB POCT ORDERABLES - DEVICE Final Result Performing Organization Address [facility] de Phone Number [facility] [place] [address] * (ABNORMAL) eGFR (07/12/2025 11:51 PM CDT) [...] 1 PM CDT 07/13/2025 12:39 AM CDT us Tod Woo MD LAB BLOOD ORDERABLES Final Re sult [facility] Department [place] [address] * Differential, auto (07/12/2025 11:51 PM CDT) Neutrophil abs 3.10 1.50 - 6.50 K/cumm Imm gran abs 0.03 0.00 - 0.10 K/cumm [facility] Lymphocyte abs 1.03 0.80 - 3.30 K/cumm [facility] Monocyte abs 0.36 0.20 - 0.80 K/cumm [facility] Eosinophil abs 0.18 0.00 - 0.50 K/cumm [facility] Basophil abs 0.03 0.00 - 0.10 K/cumm [facility] Neutrophil pct 65.6 % [facility] Comment: Interpretive Data Percent cell count reference ranges are not reported, since discordance with absolute values may lead to misinterpretation of CBC data. Current Interpretive Data was last revised on 2018. Imm gran pct 0.6 % [facility] Comment: Interpretive Data Percent cell count reference ranges are not reported, since discordance with absolute values may lead to misinterpretation of CBC data. Current Interpretive Data was last revised on 2018. Lymphocyte pct 21.8 % [facility] Comment: Interpretive Data Percent cell count reference ranges are not reported, since discordance with absolute values may lead to misinterpretation of CBC data. Current Interpretive Data was last revised on 2018. Monocyte pct 7.6 % [facility] Comment: Interpretive Data Percent cell count reference ranges are not reported, since discordance with absolute values may lead to misinterpretation of CBC data. Current Interpretive Data was last revised on 2018. Eosinophil pct 3.8 % [facility] Comment: Interpretive Data Percent cell count reference ranges are not reported, since discordance with absolute values may lead to misinterpretation of CBC data. Current Interpretive Data was last revised on 2018. Basophil pct 0.6 % [facility] Comment: Interpretive Data Percent cell count reference ranges are not reported, since discordance with absolute values may lead to misinterpretation of CBC data. Current Interpretive Data was last revised on 2018. Blood 07/12/2025 11:5 1 PM CDT 07/13/2025 12:40 AM CDT Tod Woo MD LAB BLOOD ORDERABLES Final Re sult Performing Organization Address City/[facility] Co de Phone Number [facility] Department [place] [address] * (ABNORMAL) CBC with auto differential (07/12/2025 11:51 PM CDT) WBC 4.73 3.80 - 9.90 K/cumm Hgb 8.7(L) 11.9 - 15.5 g/dL [facility] Hct 27.8(L) 35.6 - 45.5 % [facility] Plt 87(L) 150 - 400 K/cumm [facility] MPV 11.4 9.1 - 12.3 fL [facility] RBC 2.55(L) 3.90 - 5.20 M/cumm [facility] MCV 109.0(H) 81.3 - 96.4 fL [facility] MCH 34.1(H) 27.1 - 33.3 pg [facility] MCHC 31.3(L) 32.3 - 35.7 g/dL [facility] RDW CV 15.9(H) 11.1 - 14.9 % [facility] RDW SD 64.1(H) 35.7 - 48.1 fL [facility] NRBC abs 0.00 0.00 - 0.01 K/cumm [facility] Blood 07/12/2025 11:5 1 PM CDT 07/13/2025 12:40 AM CDT us Tod Woo MD LAB BLOOD ORDERABLES Final Re sult Performing Organization Address City/[facility]/ZIP Co de Phone Number [facility] Department [place] [address] * (ABNORMAL) Phosphorus (07/12/2025 11:51 PM CDT) Pathologist [facility] Phosphorus, pl 2.2(L) 2.3 - 4.5 mg/dL Blood 07/12/2025 11:5 1 PM CDT 07/13/2025 12:39 AM CDT Tod Woo MD LAB BLOOD ORDERABLES Final Re sult Performing Organization Address [facility] [place] [address] * Magnesium (07/12/2025 11:51 PM CDT) [facility] Magnesium 2.3 1.4 - 2.5 mg/dL Blood 07/12/2025 11:5 1 PM CDT 07/13/2025 12:39 AM CDT Tod Woo MD LAB BLOOD ORDERABLES Final Re sult Performing Organization Address [facility] [place] [address] * (ABNORMAL) Comprehensive metabolic panel (07/12/2025 11:51 PM CDT) [facility] Sodium 143 135 - 145 mmol/L Potassium, pl 4.9 3.3 - 4.9 mmol/L [facility] Chloride 115(H) 97 - 110 mmol/L [facility] CO2 22 22 - 32 mmol/L [facility] Anion gap 6 2 - 15 mmol/L [facility] BUN 28(H) 6 - 25 mg/dL [facility] Creatinine 2.40(H) 0.60 - 1.10 mg/dL [facility] Glucose 118 70 - 199 mg/dL [facility] Comment: Interpretive Data Fasting glucose >/= 126 [...] 2022. Calcium 7.8(L) 8.5 - 10.3 mg/dL [facility] Bilirubin, total 0.2 0.1 - 1.2 mg/dL [facility] Protein, pl 5.1(L) 6.5 - 8.5 g/dL [facility] Albumin 2.8(L) 3.5 - 5.0 g/dL [facility] Alk phos 70 40 - 130 Units/L [facility] ALT 10 7 - 45 Units/L [facility] AST 20 10 - 45 Units/L [facility] Blood 07/12/2025 11:5 1 PM CDT 07/13/2025 12:39 AM CDT Tod Woo MD LAB BLOOD ORDERABLES Final Re sult Performing Organization Address City/[facility]/ZIP Co de Phone Number [facility] Department [place] [place] [address] * POCT glucose (07/12/2025 8:12 PM CDT) [facility] Signature Glucose, POC 152 70 - 199 mg/dL Blood 07/12/2025 8:12 PM CDT 07/12/2025 8:12 PM CDT Tod Woo MD LAB POCT ORDERABLES - DEVICE Final Result Performing Organization Address City/[facility]/ZIP Co de Phone Number [facility] Department [place] [address] * POCT glucose (07/12/2025 5:11 PM CDT) Glucose, POC 182 70 - 199 mg/dL Comment:Glu2: RN/ Notified Glucose comment 1 Glu2: RN/MD Notified [facility] Blood 07/12/2025 5:11 PM CDT 07/12/2025 5:11 PM CDT Result [facility] Tod Woo MD LAB POCT ORDERABLES - DEVICE Final Result Performing Organization Address [facility] Co de Phone Number [facility] [place] [address] * (ABNORMAL) POCT glucose (07/12/2025 11:51 AM CDT) Glucose, POC 211(H) 70 - 199 mg/dL Comment:Glu2: RN/ Notified Glucose comment 1 Glu2: RN/ Notified [facility] Blood 07/12/2025 11:5 1 AM CDT 07/12/2025 11:51 AM CDT Result [facility] Tod Woo MD LAB POCT ORDERABLES - DEVICE Final Result Performing Organization Address [facility] de Phone Number [facility] [place] [place] [address] * Potassium, whole blood (07/12/2025 9:31 AM CDT) [facility] Potassium, bld 4.7 3.3 - 4.9 mmol/L Blood 07/12/2025 9:31 AM CDT 07/12/2025 9:46 AM CDT Tod Woo MD LAB BLOOD ORDERABLES Final Re sult Performing Organization Address [facility] Co de Phone Number [facility] [place] [address] * POCT glucose (07/12/2025 7:30 AM CDT) [facility] Glucose, POC 120 70 - 199 mg/dL Blood 07/12/2025 7:30 AM CDT 07/12/2025 7:30 AM CDT Tod Woo MD LAB POCT ORDERABLES - DEVICE Final Result Performing Organization Address City/[facility]/ZIP Co de Phone Number [facility] Department [place] [address] * (ABNORMAL) eGFR (07/11/2025 9:49 PM CDT) [facility] eGFR 20(L) >=60 mL/min/1. 73 m2 Comment: [...] ORDERABLES Final Re sult Performing Organization Address City/[facility]/ZIP Co de Phone Number [facility] Department [place] [address] * Differential, auto (07/11/2025 9:49 PM CDT) Neutrophil abs 2.56 1.50 - 6.50 K/cumm Imm gran abs 0.02 0.00 - 0.10 K/cumm [facility] Lymphocyte abs 0.85 0.80 - 3.30 K/cumm [facility] Monocyte abs 0.29 0.20 - 0.80 K/cumm [facility] Eosinophil abs 0.21 0.00 - 0.50 K/cumm [facility] Basophil abs 0.01 0.00 - 0.10 K/cumm [facility] Neutrophil pct 64.9 % [facility] Comment: Interpretive Data Percent cell count reference ranges are not reported, since discordance with absolute values may lead to misinterpretation of CBC data. Current Interpretive Data was last revised on 2018. Imm gran pct 0.5 % [facility] Comment: Interpretive Data Percent cell count reference ranges are not reported, since discordance with absolute values may lead to misinterpretation of CBC data. Current Interpretive Data was last revised on 2018. Lymphocyte pct 21.6 % [facility] Comment: Interpretive Data Percent cell count reference ranges are not reported, since discordance with absolute values may lead to misinterpretation of CBC data. Current Interpretive Data was last revised on 2018. Monocyte pct 7.4 % [facility] Comment: Interpretive Data Percent cell count reference ranges are not reported, since discordance with absolute values may lead to misinterpretation of CBC data. Current Interpretive Data was last revised on 2018. Eosinophil pct 5.3 % [facility] Comment: Interpretive Data Percent cell count reference ranges are not reported, since discordance with absolute values may lead to misinterpretation of CBC data. Current Interpretive Data was last revised on 2018. Basophil pct 0.3 % [facility] Comment: Interpretive Data Percent cell count reference ranges are not reported, since discordance with absolute values may lead to misinterpretation of CBC data. Current Interpretive Data was last revised on 2018. Blood 07/11/2025 9:49 PM CDT 07/11/2025 10:50 PM CDT Tod Woo MD LAB BLOOD ORDERABLES Final Re sult [facility] Department [place] [address] * (ABNORMAL) CBC with auto differential (07/11/2025 9:49 PM CDT) WBC 3.94 3.80 - 9.90 K/cumm Hgb 9.6(L) 11.9 - 15.5 g/dL [facility] Hct 30.2(L) 35.6 - 45.5 % [facility] Plt 94(L) 150 - 400 K/cumm [facility] MPV 11.4 9.1 - 12.3 fL [facility] RBC 2.80(L) 3.90 - 5.20 M/cumm [facility] MCV 107.9(H) 81.3 - 96.4 fL [facility] MCH 34.3(H) 27.1 - 33.3 pg [facility] MCHC 31.8(L) 32.3 - 35.7 g/dL [facility] RDW CV 16.2(H) 11.1 - 14.9 % [facility] RDW SD 64.7(H) 35.7 - 48.1 fL [facility] NRBC abs 0.00 0.00 - 0.01 K/cumm [facility] Blood 07/11/2025 9:49 PM CDT 07/11/2025 10:50 PM CDT Tod Woo MD LAB BLOOD ORDERABLES Final Re sult [facility] Department [place] [address] * (ABNORMAL) Protime-INR (07/11/2025 9:49 PM CDT) PT 39.6(H) 10.2 - 13.5 sec INR 3.59(H) 0.90 - 1.20 [facility] Comment: Interpretive data Oral anticoagulant therapeutic ranges: Venous thromboembolism prophylaxis or treatment: 2.0-3.0 CARDIOLOGY Standard range: 2.0-3.0 High-intensity range: 2.5-3.5 Refer to indication-specific guidelines for appropriate target ranges for prosthetic heart valve replacement. Current interpretive data was last revised on 2019. Blood 07/11/2025 9:49 PM CDT 07/11/2025 10:32 PM CDT Tod Woo MD LAB BLOOD ORDERABLES Final Re sult Performing Organization Address [facility] Co de Phone Number [facility] [place] [address] * (ABNORMAL) Phosphorus (07/11/2025 9:49 PM CDT) Phosphorus, pl 2.2(L) 2.3 - 4.5 mg/dL Blood 07/11/2025 9:49 PM CDT 07/11/2025 10:37 PM CDT Result [facility] Tod Woo MD LAB BLOOD ORDERABLES Final Re sult Performing Organization Address [facility] Co de Phone Number [facility] [place] [address] * (ABNORMAL) Magnesium (07/11/2025 9:49 PM CDT) Magnesium 2.6(H) 1.4 - 2.5 mg/dL Blood 07/11/2025 9:49 PM CDT 07/11/2025 10:37 PM CDT Tod Woo MD LAB BLOOD ORDERABLES Final Re sult Performing Organization Address [facility] Co de Phone Number [facility] [place] [address] * (ABNORMAL) Comprehensive metabolic panel (07/11/2025 9:49 PM CDT) [facility] Sodium 143 135 - 145 mmol/L Potassium, pl 5.9(H) 3.3 - 4.9 mmol/L [facility] Comment:Hemolyzed; Potassium value may be falsely elevated by as much as 0.6-1.0 mmol/L. Suggest redraw and reanalysis. Chloride 115(H) 97 - 110 mmol/L [facility] CO2 22 22 - 32 mmol/L [facility] Anion gap 6 2 - 15 mmol/L [facility] BUN 25 6 - 25 mg/dL [facility] Creatinine 2.36(H) 0.60 - 1.10 mg/dL [facility] Glucose 155 70 - 199 mg/dL [facility] Comment: Interpretive Data Fasting glucose >/= 126 [...] 2022. Calcium 8.1(L) 8.5 - 10.3 mg/dL [facility] Bilirubin, total 0.2 0.1 - 1.2 mg/dL [facility] Comment:Reviewed Protein, pl 5.9(L) 6.5 - 8.5 g/dL [facility] Albumin 3.0(L) 3.5 - 5.0 g/dL [facility] Alk phos 74 40 - 130 Units/L [facility] ALT 12 7 - 45 Units/L [facility] AST 38 10 - 45 Units/L [facility] Comment:Hemolyzed; result ma y be falsely elevated Blood 07/11/2025 9:49 PM CDT 07/11/2025 10:37 PM CDT us Tod Woo MD LAB BLOOD ORDERABLES Final Re sult [facility] [place] [address] * POCT glucose (07/11/2025 7:58 PM CDT) Glucose, POC 143 70 - 199 mg/dL Blood 07/11/2025 7:58 PM CDT 07/11/2025 7:58 PM CDT Tod Woo MD LAB POCT ORDERABLES - DEVICE Final Result Performing Organization Address [facility] [place] [address] * POCT glucose (07/11/2025 5:14 PM CDT) Glucose, POC 163 70 - 199 mg/dL Blood 07/11/2025 5:14 PM CDT 07/11/2025 5:14 PM CDT Tod Woo MD LAB POCT ORDERABLES - DEVICE Final Result Performing Organization Address [facility] [place] [address] * (ABNORMAL) POCT glucose (07/11/2025 11:24 AM CDT) Glucose, POC 219(H) 70 - 199 mg/dL Comment:Glu2: RN/MD Notified Glucose comment 1 Glu2: RN/MD Notified [facility] Blood 07/11/2025 11:2 4 AM CDT 07/11/2025 11:24 AM CDT Tod Woo MD LAB POCT ORDERABLES - DEVICE Final Result Performing Organization Address City/[facility] Co de Phone Number [facility] [place] [address] * POCT glucose (07/11/2025 7:39 AM CDT) Glucose, POC 122 70 - 199 mg/dL Blood 07/11/2025 7:39 AM CDT 07/11/2025 7:39 AM CDT Tod Woo MD LAB POCT ORDERABLES - DEVICE Final Result Performing Organization Address [facility] Co de Phone Number [facility] [place] [place] [address] * (ABNORMAL) eGFR (07/10/2025 10:02 PM CDT) Pathologist [facility] eGFR 19(L) >=60 mL/min/1. 73 m2 Comment: [...] ORDERABLES Final Re sult Performing Organization Address City/[facility]/ZIP Co de Phone Number [facility] [place] [place] [address] * (ABNORMAL) Differential, auto (07/10/2025 10:02 PM CDT) Neutrophil abs 2.77 1.50 - 6.50 K/cumm Imm gran abs 0.02 0.00 - 0.10 K/cumm [facility] Lymphocyte abs 0.74(L) 0.80 - 3.30 K/cumm [facility] Monocyte abs 0.35 0.20 - 0.80 K/cumm [facility] Eosinophil abs 0.18 0.00 - 0.50 K/cumm [facility] Basophil abs 0.02 0.00 - 0.10 K[facility]cumm [facility] Neutrophil pct 67.9 % [facility] Comment: Interpretive Data Percent cell count reference ranges are not reported, since discordance with absolute values may lead to misinterpretation of CBC data. Current Interpretive Data was last revised on 2018. Imm gran pct 0.5 % [facility] Comment: Interpretive Data Percent cell count reference ranges are not reported, since discordance with absolute values may lead to misinterpretation of CBC data. Current Interpretive Data was last revised on 2018. Lymphocyte pct 18.1 % [facility] Comment: Interpretive Data Percent cell count reference ranges are not reported, since discordance with absolute values may lead to misinterpretation of CBC data. Current Interpretive Data was last revised on 2018. Monocyte pct 8.6 % [facility] Comment: Interpretive Data Percent cell count reference ranges are not reported, since discordance with absolute values may lead to misinterpretation of CBC data. Current Interpretive Data was last revised on 2018. Eosinophil pct 4.4 % [facility] Comment: Interpretive Data Percent cell count reference ranges are not reported, since discordance with absolute values may lead to misinterpretation of CBC data. Current Interpretive Data was last revised on 2018. Basophil pct 0.5 % [facility] Comment: Interpretive Data Percent cell count reference ranges are not reported, since discordance with absolute values may lead to misinterpretation of CBC data. Current Interpretive Data was last revised on 2018. Blood 07/10/2025 10:0 2 PM CDT 07/10/2025 11:24 PM CDT Tod Woo MD LAB BLOOD ORDERABLES Final Re sult [facility] Department [place] [address] * (ABNORMAL) CBC with auto differential (07/10/2025 10:02 PM CDT) [facility] WBC 4.08 3.80 - 9.90 K/cumm Hgb 9.0(L) 11.9 - 15.5 g/dL [facility] Hct 28.6(L) 35.6 - 45.5 % [facility] Plt 91(L) 150 - 400 K/cumm [facility] MPV 11.1 9.1 - 12.3 fL [facility] RBC 2.60(L) 3.90 - 5.20 M/cumm [facility] MCV 110.0(H) 81.3 - 96.4 fL [facility] MCH 34.6(H) 27.1 - 33.3 pg [facility] MCHC 31.5(L) 32.3 - 35.7 g/dL [facility] RDW CV 16.5(H) 11.1 - 14.9 % [facility] RDW SD 66.5(H) 35.7 - 48.1 fL [facility] NRBC abs 0.00 0.00 - 0.01 K/cumm [facility] Blood 07/10/2025 10:0 2 PM CDT 07/10/2025 11:24 PM CDT Tod Woo MD LAB BLOOD ORDERABLES Final Re sult [facility] Department [place] [address] * Phosphorus (07/10/2025 10:02 PM CDT) Pathologist [facility] Phosphorus, pl 2.7 2.3 - 4.5 mg/dL Blood 07/10/2025 10:0 2 PM CDT 07/10/2025 11:25 PM CDT Tod Woo MD LAB BLOOD ORDERABLES Final Re sult Performing Organization Address City/[facility] Co de Phone Number [facility] [place] [address] * Magnesium (07/10/2025 10:02 PM CDT) Pathologist [facility] Magnesium 2.4 1.4 - 2.5 mg/dL Blood 07/10/2025 10:0 2 PM CDT 07/10/2025 11:25 PM CDT Tod Woo MD LAB BLOOD ORDERABLES Final Re sult Performing Organization Address [facility] de Phone Number [facility] Department [place] [address] * (ABNORMAL) Comprehensive metabolic panel (07/10/2025 10:02 PM CDT) Pathologist [facility] Sodium 148(H) 135 - 145 mmol/L Potassium, pl 4.9 3.3 - 4.9 mmol/L [facility] Chloride 119(H) 97 - 110 mmol/L [facility] CO2 22 22 - 32 mmol/L [facility] Anion gap 7 2 - 15 mmol/L [facility] BUN 24 6 - 25 mg/dL [facility] Creatinine 2.49(H) 0.60 - 1.10 mg/dL [facility] Glucose 148 70 - 199 mg/dL [facility] Comment: Interpretive Data Fasting glucose >/= 126 [...] 2022. Calcium 8.1(L) 8.5 - 10.3 mg/dL [facility] Bilirubin, total <0.2 0.1 - 1.2 mg/dL [facility] Comment:Reviewed Protein, pl 5.5(L) 6.5 - 8.5 g/dL [facility] Albumin 2.9(L) 3.5 - 5.0 g/dL [facility] Alk phos 61 40 - 130 Units/[facility] ALT 8 7 - 45 Units/L [facility] AST 19 10 - 45 Units/L [facility] Blood 07/10/2025 10:0 2 PM CDT 07/10/2025 11:24 PM CDT Tod Woo MD LAB BLOOD ORDERABLES Final Re sult Performing Organization Address City/[facility]/ZIP Co de Phone Number [facility] Department [place] [address] * POCT glucose (07/10/2025 8:25 PM CDT) Pathologist [facility] Glucose, POC 162 70 - 199 mg/dL Blood 07/10/2025 8:25 PM CDT 07/10/2025 8:25 PM CDT Tod Woo MD LAB POCT ORDERABLES - DEVICE Final Result [facility] Department [place] [address] * H. pylori antigen, stool Stool (07/10/2025 5:58 PM CDT) Pathologist [facility] H. pylori Ag, stool Negative Negative Comment: Interpretative Data Testing performed at the [facility] using the [employer] HpSA lateral flow immunoassay that detects Helicobacter [...] GENERAL ORDERABLES Final Result Performing Organization Address [facility] Co de Phone Number [facility] [place] [address] * POCT glucose (07/10/2025 4:52 PM CDT) Glucose, POC 171 70 - 199 mg/dL Blood 07/10/2025 4:52 PM CDT 07/10/2025 4:52 PM CDT Tod Woo MD LAB POCT ORDERABLES - DEVICE Final Result Performing Organization Address [facility] [place] [address] * POCT glucose (07/10/2025 11:32 AM CDT) Glucose, POC 153 70 - 199 mg/dL Blood 07/10/2025 11:3 2 AM CDT 07/10/2025 11:32 AM CDT Tod Woo MD LAB POCT ORDERABLES - DEVICE Final Result Performing Organization Address [facility] Co de Phone Number [facility] [place] [address] * POCT glucose (07/10/2025 7:54 AM CDT) Glucose, POC 116 70 - 199 mg/dL Blood 07/10/2025 7:54 AM CDT 07/10/2025 7:54 AM CDT Tod Woo MD LAB POCT ORDERABLES - DEVICE Final Result Performing Organization Address City/[facility] Co de Phone Number [facility] [place] [address] * POCT glucose (07/10/2025 3:35 AM CDT) Glucose, POC 115 70 - 199 mg/dL Blood 07/10/2025 3:35 AM CDT 07/10/2025 3:35 AM CDT Tod Woo MD LAB POCT ORDERABLES - DEVICE Final Result Performing Organization Address [facility] de Phone Number [facility] Department [place] [address] * (ABNORMAL) eGFR (07/10/2025 3:34 AM CDT) [...] MD LAB BLOOD ORDERABLES Final Re sult [facility] Department [place] [address] * Differential, auto (07/10/2025 3:34 AM CDT) Neutrophil abs 2.61 1.50 - 6.50 K/cumm Imm gran abs 0.01 0.00 - 0.10 K/cumm [facility] Lymphocyte abs 1.03 0.80 - 3.30 K/cumm [facility] Monocyte abs 0.38 0.20 - 0.80 K/cumm [facility] Eosinophil abs 0.16 0.00 - 0.50 K/cumm [facility] Basophil abs 0.02 0.00 - 0.10 K/cumm [facility] Neutrophil pct 62.0 % [facility] Comment: Interpretive Data Percent cell count reference ranges are not reported, since discordance with absolute values may lead to misinterpretation of CBC data. Current Interpretive Data was last revised on 2018. Imm gran pct 0.2 % [facility] Comment: Interpretive Data Percent cell count reference ranges are not reported, since discordance with absolute values may lead to misinterpretation of CBC data. Current Interpretive Data was last revised on 2018. Lymphocyte pct 24.5 % [facility] Comment: Interpretive Data Percent cell count reference ranges are not reported, since discordance with absolute values may lead to misinterpretation of CBC data. Current Interpretive Data was last revised on 2018. Monocyte pct 9.0 % [facility] Comment: Interpretive Data Percent cell count reference ranges are not reported, since discordance with absolute values may lead to misinterpretation of CBC data. Current Interpretive Data was last revised on 2018. Eosinophil pct 3.8 % [facility] Comment: Interpretive Data Percent cell count reference ranges are not reported, since discordance with absolute values may lead to misinterpretation of CBC data. Current Interpretive Data was last revised on 2018. Basophil pct 0.5 % [facility] Comment: Interpretive Data Percent cell count reference ranges are not reported, since discordance with absolute values may lead to misinterpretation of CBC data. Current Interpretive Data was last revised on 2018. Blood 07/10/2025 3:34 AM CDT 07/10/2025 4:22 AM CDT us Tod Woo MD LAB BLOOD ORDERABLES Final Re sult [facility] Department [place] [address] * (ABNORMAL) Urinalysis reflex to microscopic and culture Urine (07/10/2025 3:34 AM CDT) Color, ur Yellow Yellow Clarity, ur Clear Clear [facility] Specific gravity, ur 1.036(H) 1.003 - 1.030 [facility] pH, urine 6.0 [facility] Comment: Interpretive Data U rine pH is affected by diet, medications, systemic acid-base disturbances, and renal tubular function. pH may affect urinary stone formation. For example, urine pH below 6.0 may help reduce the tendency for calcium phosphate stones and pH greater than 6.0 may reduce the tendency for uric acid stone formation. Source: [facility] [employer] Current Interpretive Data was last revised on 2017 Protein, ur ql 2+(A) Negative [facility] Glucose, ur ql 1+(A) Negative [facility] Ketones, ur Negative Negative [facility] Bilirubin, ur Negative Negative [facility] Blood, ur Trace(A) Negative [facility] Urobilinogen, ur <2.0 <2.0 mg/dL [facility] Nitrite, ur Negative Negative [facility] Leukocyte esterase, ur 1+(A) Negative [facility] UA reflex comment Reflex to microscopic UA will be performed. [facility] Urine 07/10/2025 3:34 AM CDT 07/10/2025 4:17 AM CDT us Joe Nielson MD LAB MICROBIOLOGY - GEN ERAL ORDERABLES Final Result [facility] Department [place] [address] * (ABNORMAL) CBC with auto differential (07/10/2025 3:34 AM CDT) Pathologist [facility] WBC 4.21 3.80 - 9.90 K/cumm Hgb 8.8(L) 11.9 - 15.5 g/dL [facility] Hct 27.5(L) 35.6 - 45.5 % [facility] Plt 63(L) 150 - 400 K/cumm [facility] MPV 12.5(H) 9.1 - 12.3 fL [facility] RBC 2.57(L) 3.90 - 5.20 M/cumm [facility] MCV 107.0(H) 81.3 - 96.4 fL [facility] MCH 34.2(H) 27.1 - 33.3 pg [facility] MCHC 32.0(L) 32.3 - 35.7 g/dL [facility] RDW CV 16.6(H) 11.1 - 14.9 % [facility] RDW SD 64.8(H) 35.7 - 48.1 fL [facility] NRBC abs 0.00 0.00 - 0.01 K/cumm [facility] Blood 07/10/2025 3:34 AM CDT 07/10/2025 4:22 AM CDT us Tod Woo MD LAB BLOOD ORDERABLES Final Re sult [facility] Department [place] [address] * (ABNORMAL) Urinalysis, microscopic only (07/10/2025 3:34 AM CDT) WBC, ur 11-20(A) 0 - 5 /HPF RBC, ur 0-2 0 - 2 /HPF [facility] Epithelial cells, squamous, ur 11-20(A) 0 - 5 /HPF [facility] Comment:Suggestive of contam ination. Consider recollection by clean catch. Bacteria, ur Trace(A) [facility] Mucous, ur Present(A) [facility] Culture Reflex Comment Reflex to urine culture will be performed. [facility] Urine 07/10/2025 3:34 AM CDT 07/10/2025 4:17 AM CDT Joe Nielson MD LAB URINE ORDERABLES F inal Result Performing Organization Address [facility] Co de Phone Number [facility] Department [place] [place] [address] * (ABNORMAL) Protime-INR (07/10/2025 3:34 AM CDT) PT 23.8(H) 10.2 - 13.5 sec INR 2.14(H) 0.90 - 1.20 [facility] Comment: Interpretive data Oral anticoagulant therapeutic ranges: Venous thromboembolism prophylaxis or treatment: 2.0-3.0 CARDIOLOGY Standard range: 2.0-3.0 High-intensity range: 2.5-3.5 Refer to indication-specific guidelines for appropriate target ranges for prosthetic heart valve replacement. Current interpretive data was last revised on 2019. Blood 07/10/2025 3:34 AM CDT 07/10/2025 4:33 AM CDT Tod Woo MD LAB BLOOD ORDERABLES Final Re sult Performing Organization Address [facility]/ZIP Co de Phone Number [facility] Department [place] [address] * Urine culture Urine (07/10/2025 3:34 AM CDT) Report Final Report: Growth indicative of contamination with periurethral lewis. Please submit a new specimen with special attention given to the collection process and to prompt transport to the laboratory. Organism GROWTH INDICATES CONTAM WITH PERIURETHRAL LEWSI. [facility] Urine 07/10/2025 3:34 AM CDT 07/10/2025 4:43 AM CDT Narrative [facility] - 07/11/2025 12:25 PM CDT Urine culture reflexed based upon urinalysis results. Testing performed by [facility] ([phone]) Joe Nielson MD LAB MICROBIOLOGY - GEN ERAL ORDERABLES Final Result [facility] Department [place] [address] * (ABNORMAL) Renal function panel (07/10/2025 3:34 AM CDT) Sodium 143 135 - 145 mmol/L Potassium, pl 4.8 3.3 - 4.9 mmol/L [facility] Chloride 117(H) 97 - 110 mmol/L [facility] CO2 22 22 - 32 mmol/L [facility] Anion gap 4 2 - 15 mmol/L [facility] BUN 24 6 - 25 mg/dL [facility] Creatinine 2.36(H) 0.60 - 1.10 mg/dL [facility] Glucose 109 70 - 199 mg/dL [facility] Comment: Interpretive Data Fasting glucose >/= 126 [...] 2022. Calcium 7.7(L) 8.5 - 10.3 mg/dL [facility] Phosphorus, pl 2.7 2.3 - 4.5 mg/dL [facility] Albumin 2.7(L) 3.5 - 5.0 g/dL [facility] Blood 07/10/2025 3:34 AM CDT 07/10/2025 4:22 AM CDT Result [facility] Tod Woo MD LAB BLOOD ORDERABLES Final Re sult Performing Organization Address [facility] Co de Phone Number [facility] [place] [address] * (ABNORMAL) POCT glucose (07/09/2025 8:05 PM CDT) Glucose, POC 201(H) 70 - 199 mg/dL Blood 07/09/2025 8:05 PM CDT 07/09/2025 8:05 PM CDT Result [facility] Tod Woo MD LAB POCT ORDERABLES - DEVICE Final Result Performing Organization Address [facility] Co de Phone Number [facility] [place] [address] * Parietal cell antibody, IgG (07/09/2025 7:46 PM CDT) [facility] Antigastric parietal cell <10.0 <=20.0 (Negative) [facility] Comment: Test Performed by: [id number] [place] [address] Insurance Clerk: Amira Olivarez Ph.D.; CLIA# [id number] Blood 07/09/2025 7:46 PM CDT 07/09/2025 8:16 PM CDT Result [facility] Paige Anderson MD LAB BLOOD ORDERABLES Final Result Performing Organization Address [facility] Co de Phone Number [facility] [place] [address] [facility] * Intrinsic factor blocking antibody (07/09/2025 7:46 PM CDT) [facility] IFBA ab Negative Negative [facility] Comment See Footnote [facility] Comment: Intrinsic Factor Blocking Antibody (IFBA) antibodies are absent in approximately 50% of individuals with pernicious anemia (PA). The absence of elevated IFBA antibodies does not rule out the presence of PA; further studies such as gastrin testing may be indicated. Test Performed by: [facility] [address] [place] [address] Insurance Clerk: Amira Olivarez Ph.D.; CLIA# [id number] Blood 07/09/2025 7:46 PM CDT 07/09/2025 8:16 PM CDT Paige Anderson MD LAB BLOOD ORDERABLES Final Result Performing Organization Address City/[facility] Co de Phone Number [facility] Department [place] [address] [facility] * Reticulocyte Count (07/09/2025 7:46 PM CDT) [facility] Retics, absolute 50 20 - 87 K/cumm Retics 1.9 0.4 - 2.9 % [facility] Reticulocyte Hgb 34.8 30.5 - 38.0 pg [facility] Blood 07/09/2025 7:46 PM CDT 07/09/2025 8:20 PM CDT Paige Anderson MD LAB BLOOD ORDERABLES Final Result [facility] [place] [address] * POCT glucose (07/09/2025 5:20 PM CDT) [facility] Glucose, POC 140 70 - 199 mg/dL Blood 07/09/2025 5:20 PM CDT 07/09/2025 5:20 PM CDT Paige Anderson MD LAB POCT ORDERABLES - DEVIC E Final Result Performing Organization Address [facility] Co de Phone Number [facility] [place] [address] * (ABNORMAL) POCT glucose (07/09/2025 12:40 PM CDT) Glucose, POC 208(H) 70 - 199 mg/dL Blood 07/09/2025 12:4 0 PM CDT 07/09/2025 12:40 PM CDT Result [facility] Tod Woo MD LAB POCT ORDERABLES - DEVICE Final Result Performing Organization Address [facility] de Phone Number [facility] [place] [address] * POCT glucose (07/09/2025 10:13 AM CDT) Glucose, POC 119 70 - 199 mg/dL Blood 07/09/2025 10:1 3 AM CDT 07/09/2025 10:13 AM CDT Result [facility] Tod Woo MD LAB POCT ORDERABLES - DEVICE Final Result Performing Organization Address [facility] Co de Phone Number [facility] Department [place] [address] * Folate (07/09/2025 8:41 AM CDT) Folic acid 7.2 >=5.0 ng/mL Blood 07/09/2025 8:41 AM CDT 07/09/2025 8:56 AM CDT Result [facility] Tod Woo MD LAB BLOOD ORDERABLES Final Re sult Performing Organization Address [facility] Co de Phone Number [facility] [place] [address] * (ABNORMAL) Vitamin B12 (07/09/2025 8:41 AM CDT) Vitamin B12 191(L) 230 - 1,250 pg/mL Blood 07/09/2025 8:41 AM CDT 07/09/2025 8:56 AM CDT Tod Woo MD LAB BLOOD [place]AB[place] [address] * POCT glucose (07/09/2025 3:28 AM CDT) Glucose, POC 150 70 - 199 mg/dL Blood 07/09/2025 3:28 AM CDT 07/09/2025 3:28 AM CDT Result [facility] Marek Dotson MD LAB POCT ORDERABLES - ILEANA CE Final Result Performing Organization Address [facility] [place] [address] * (ABNORMAL) POCT glucose (07/08/2025 11:43 PM CDT) Glucose, POC 221(H) 70 - 199 mg/dL Comment:Glu2: RN/ Notified Glucose comment 1 Glu2: RN/MD Notified [facility] Blood 07/08/2025 11:4 3 PM CDT 07/08/2025 11:43 PM CDT Paige Anderson MD LAB POCT ORDERABLES - DEVIC E Final Result Performing Organization Address City/[facility]/[place] [address] * POCT glucose (07/08/2025 8:22 PM CDT) Glucose, POC 107 70 - 199 mg/dL Blood 07/08/2025 8:22 PM CDT 07/08/2025 8:22 PM CDT Ben Rodriguez Jr., MD LAB POCT ORDERABLES - DEVICE Final Result Performing Organization Address [facility] de Phone Number [facility] [place] [address] * (ABNORMAL) aPTT (07/08/2025 8:21 PM CDT) [...] ORDERABLES F inal Result Performing Organization Address [facility] de Phone Number [facility] [place] [address] * (ABNORMAL) Protime-INR (07/08/2025 8:21 PM CDT) PT 40.1(H) 10.2 - 13.5 sec INR 3.64(H) 0.90 - 1.20 [facility] Comment: Interpretive data Oral anticoagulant therapeutic ranges: [...] ORDERABLES F inal Result Performing Organization Address [facility] de Phone Number [facility] Department [place] [address] * (ABNORMAL) Troponin I high-sensitivity 2-hour (07/08/2025 8:14 PM CDT) Trop I hs 34(H) <=17 ng/L Comment: Interpretive Data For further hscTnI resources including the diagnostic algorithm and an aid in interpretation, copy and paste this link: https://bjhlab.testcatalog.org/show/hsTrop-1 Current Interpretive Data last revised 2020. Trop I hs delta 4 ng/L [facility] Trop I hs interp Insignificant [facility] Blood 07/08/2025 8:14 PM CDT 07/08/2025 8:34 PM CDT us Joe Nielson MD LAB BLOOD ORDERABLES F inal Result Performing Organization Address [facility] de Phone Number [facility] Department [place] [address] * ECG 12-LEAD (07/08/2025 6:51 PM CDT) Narrative [facility] - 07/08/2025 6:51 PM CDT Ben Rodriguez [...] Joe Nielson MD ECG ORDERABLES Final Result [facility] * (ABNORMAL) Troponin I high-sensitivity series (baseline, 2hr, 4hr, 6hr) (07/08/2025 6:19 PM CDT) Trop I hs 30(H) <=17 ng/L Comment: Interpretive Data For further hscTnI resources including the diagnostic algorithm and an aid in interpretation, copy and paste this link: https://bjhlab.testcatalog.org/show/hsTrop-1 Current Interpretive Data last revised 2020. Blood 07/08/2025 6:19 PM CDT 07/08/2025 6:42 PM CDT Narrative [facility] - 07/08/2025 7:15 PM CDT Baseline has already been drawn, please draw the 2h at about 6:15pm Joe Nielson MD LAB BLOOD ORDERABLES F inal Result Performing Organization Address City/[facility]/ZIP Co de Phone Number [facility] Department [place] [address] * CT Abdomen Pelvis W Contrast (07/08/2025 [...] it. Electronically signed by: Caesar Lopez M.D. us Joe Nielson MD IMG CT PROCEDURES Nellie l Result * (ABNORMAL) Urinalysis reflex to microscopic (07/08/2025 4:51 PM CDT) Color, ur Straw Yellow Clarity, ur Clear Clear [facility] Specific gravity, ur 1.022 1.003 - 1.030 [facility] pH, urine 6.0 [facility] Comment: Interpretive Data U rine pH is affected by diet, medications, systemic acid-base disturbances, and renal tubular function. pH may affect urinary stone formation. For example, urine pH below 6.0 may help reduce the tendency for calcium phosphate stones and pH greater than 6.0 may reduce the tendency for uric acid stone formation. Source: [facility] [employer] Current Interpretive Data was last revised on 2017 Protein, ur ql 2+(A) Negative [facility] Glucose, ur ql 1+(A) Negative [facility] Ketones, ur Negative Negative [facility] Bilirubin, ur Negative Negative [facility] Blood, ur Negative Negative [facility] Urobilinogen, ur <2.0 <2.0 mg/dL [facility] Nitrite, ur Negative Negative [facility] Leukocyte esterase, ur Negative Negative [facility] UA reflex comment Reflex to microscopic UA will be performed. [facility] Urine, in and out catheter 07/08/2025 4:51 PM CDT 07/08/2025 4:57 PM CDT Ben Rodriguez Jr., MD LAB URINE ORDERABLES F inal Result Performing Organization Address [facility] Co de Phone Number [facility] [place] [address] * (ABNORMAL) Urinalysis, microscopic only (07/08/2025 4:51 PM CDT) WBC, ur 0-5 0 - 5 /HPF RBC, ur 0-2 0 - 2 /HPF [facility] Epithelial cells, squamous, ur 1-5 0 - 5 /HPF [facility] Mucous, ur Present(A) [facility] Urine, in and out catheter 07/08/2025 4:51 PM CDT 07/08/2025 4:57 PM CDT Ben Rodriguez Jr., MD LAB URINE ORDERABLES F inal Result Performing Organization Address [facility] de Phone Number [facility] Department [place] [address] * Urine culture Urine, in and out catheter (07/08/2025 4:51 PM CDT) Report Final Report: Less than 10,000 colonies/mL (clinically insignificant growth based on current clinical standards) Organism (CLINICALLY INSIGNIFICANT GROWTH [facility] Urine, in and out catheter 07/08/2025 4:51 PM CDT 07/08/2025 4:58 PM CDT Narrative [facility] - 07/09/2025 5:30 PM CDT Indications for Culture:->Urology patient Testing performed by [facility] ([phone]) us Ben Rodriguez Jr., MD LAB MICROBIOLOGY - GEN ERAL ORDERABLES Final Result Performing Organization Address [facility] [place] [address] * N. gonorrhoeae/C. trachomatis Amplification Endocervical (07/08/2025 4:50 PM CDT) Pathologist [facility] C. trachomatis Not Detected Not Detected [facility] N. gonorrhoeae Not Detected Not Detected [facility] Comment: Interpretive Data This assay detects Chlamydia trachomatis and Neisseria gonorrhoeae by nucleic acid amplification testing (NAAT). This assay has been cleared by the [place] Food and Drug administration. The performance characteristics of this test have been verified by the [facility] Infectious Disease laboratory. The performance characteristics of this test have not been evaluated in individuals less than 14 years of age. Current Interpretive Data last revised 2023. Endocervical (None) 07/08/20 4:50 PM CDT 07/08/2025 5:04 PM CDT Ben Rodriguze Jr., MD LAB MICROBIOLOGY - GEN ERAL ORDERABLES Final Result Performing Organization Address [facility] de Phone Number [facility] [place] [address] [facility] * (ABNORMAL) Drugs of Abuse Screen, Urine without Confirmation (07/08/2025 4:20 PM CDT) Pathologist [facility] Amphetamine, ur Not Detected [facility] 500ng/mL Comment: Interpretive Data - Amphetamines: Samples containing greater than 500 ng/mL d-methamphetamine or other cross-reacting amphetamine compounds are reported as positive. Amphetamine immunoassays are subject to significant false positive rates due to cross-reactivity of non-amphetamine drugs. Confirmatory testing required for definitive results. Current Interpretive Data was last reviewed 2023. Barbiturates, ur Not Detected CutOff 200ng/mL [facility] Comment: Interpretive Data - Barbiturates: Samples containing greater than 200 ng/mL secobarbital or other cross-reacting barbiturate compounds are reported as positive. False positive and false negative results are possible. Confirmatory testing required for definitive results. Current Interpretive Data was last reviewed 2023. Benzodiazepines, ur Screen Positive, presumptive (A) CutOff 100ng/mL [facility] Comment: Interpretive Data - Benzodiazepines: Samples containing greater than 100 ng/mL nordiazepam or other cross-reacting compounds are reported as positive. False positive and false negative results are possible. Confirmatory testing required for definitive results. Current Interpretive Data was last reviewed 2023. Cannabinoids, ur Not Detected CutOff 50 ng/mL [facility] Comment: Interpretive Data - Cannabinoids: Samples containing greater than 50 ng/mL delta-9 THC -COOH or other cross- reacting compounds are reported as positive. False positive and false negative results are possible. Confirmatory testing required for definitive results. Current Interpretive Data was last reviewed 2023. Cocaine, ur Not Detected CutOff 150ng/mL [facility] Comment: Interpretive Data - Cocaine: Samples containing greater than 150 ng/mL benzoylecgonine or other cross- reacting compounds are reported as positive. False positive and false negative results are possible. Confirmatory testing required for definitive results. Current Interpretive Data was last reviewed 2023. Fentanyl, Ur Not Detected CutOff 5 ng/mL [facility] Comment: Interpretive Data - Fentanyl: Samples containing greater than 5 ng/mL norfentanyl, fentanyl, or other cross-reacting fentanyl compounds are reported as positive. False positive and false negative results are possible. Confirmatory testing required for definitive results. Current Interpretive Data was last reviewed 2024. Methadone, ur Not Detected CutOff 300ng/mL [facility] Comment: Interpretive Data - Methadone: Samples containing greater than 300 ng/mL d,l-methadone or other cross-reacting compounds are reported as positive. False positive and false negative results are possible. Confirmatory testing required for definitive results. Current Interpretive Data was last reviewed 2023. Opiates, ur Screen Positive, presumptive (A) CutOff 300ng/mL [facility] Comment: Interpretive Data - Opiates: Samples containing greater than 300 ng/mL morphine or other cross-reacting compounds are reported as positive. False positive and false negative results are possible. Confirmatory testing required for definitive results. Current Interpretive Data was last reviewed 2023. Oxycodone, ur Not Detected CutOff 100ng/mL [facility] Comment: Interpretive Data - Oxycodone: Samples containing greater than 100 ng/mL oxycodone or other cross-reacting compounds are reported as positive. False positive and false negative results are possible. Confirmatory testing required for definitive results. Current Interpretive Data was last reviewed 2023. Phencyclidine, ur Not Detected CutOff 25 ng/mL [facility] Comment: Interpretive Data - Phencyclidine: Samples containing greater than 25 ng/mL phencyclidine or other cross-reacting compounds are reported as positive. False positive and false negative results are possible. Confirmatory testing required for definitive results. Current Interpretive Data was last reviewed 2023. Urine Creatinine 135 mg/dL [facility] Comment: Interpretive Data Urine Creatinine: < 10 mg/dL is extremely dilute = or > 10 but < 20 mg/dL is dilute = or > 20 mg/dL is normal Current Interpretive Data was last revised on 2018. Urine 07/08/2025 4:20 PM CDT 07/08/2025 4:32 PM CDT Narrative [facility] - 07/08/2025 5:04 PM CDT Drug of Abuse screening is performed by immunoassay for medical purposes only. This is not to be used for Pain Management purposes. Ben Rodriguez Jr., MD LAB URINE ORDERABLES F inal Result [facility] One [facility] Department [place] [address] * Urine culture Urine, clean voided (07/08/2025 4:20 PM CDT) Report Final Report: Less than 100,000 colonies/mL (clinically insignificant growth based on current clinical standards) Organism (CLINICALLY INSIGNIFICANT GROWTH [facility] Urine, clean voided 07/08/2025 4:20 PM CDT 07/08/2025 4:29 PM CDT Narrative [facility] - 07/09/2025 4:54 PM CDT Indications for Culture:->Recent positive UA Testing performed by [facility] ([phone]) Ben Rodriguez Jr., MD LAB MICROBIOLOGY - GEN ERAL ORDERABLES Final Result Performing Organization Address City/[facility] Co de Phone Number [facility] Department [place] [address] * POCT Rapid HIV Antibody Community Screening-Da Eligible (07/08/2025 4:18 PM CDT) [facility] Rapid HIV, POC Negative Negative Lot Number [id number] QC Control Line Acceptable Blood 07/08/2025 4:18 PM CDT Ben Rodriguez Jr., MD POINT OF CARE TEST ORD ERABLES Final Result * (ABNORMAL) Troponin I high-sensitivity (07/08/2025 4:12 PM CDT) [facility] Trop I hs 30(H) <=17 ng/L Comment: Interpretive Data For further hscTnI resources including the diagnostic algorithm and an aid in interpretation, copy and paste this link: https://bjhlab.testcatalog.org/show/hsTrop-[email or web address] Current Interpretive Data last revised 2020. Blood 07/08/2025 4:12 PM CDT 07/08/2025 4:30 PM CDT us Joe Nielson MD LAB BLOOD ORDERABLES F inal Result Performing Organization Address City/[facility]/ZIP Co de Phone Number [facility] Department [place] [address] * Lactate (07/08/2025 4:12 PM CDT) [facility] Lactate 0.9 0.7 - 2.0 mmol/L Blood 07/08/2025 4:12 PM CDT 07/08/2025 4:31 PM CDT us Ben Rodriguez Jr., MD LAB BLOOD ORDERABLES F inal Result Performing Organization Address [facility] de Phone Number [facility] Department [place] [address] * (ABNORMAL) eGFR (07/08/2025 4:12 PM CDT) [...] ORDERABLES F inal Result Performing Organization Address City/[facility]/ZIP Co de Phone Number [facility] Department [place] [address] * Differential, auto (07/08/2025 4:12 PM CDT) Neutrophil abs 4.62 1.50 - 6.50 K/cumm Imm gran abs 0.02 0.00 - 0.10 K/cumm [facility] Lymphocyte abs 1.00 0.80 - 3.30 K/cumm [facility] Monocyte abs 0.41 0.20 - 0.80 K/cumm [facility] Eosinophil abs 0.11 0.00 - 0.50 K/cumm [facility] Basophil abs 0.02 0.00 - 0.10 K/cumm [facility] Neutrophil pct 74.8 % [facility] Comment: Interpretive Data Percent cell count reference ranges are not reported, since discordance with absolute values may lead to misinterpretation of CBC data. Current Interpretive Data was last revised on 2018. Imm gran pct 0.3 % [facility] Comment: Interpretive Data Percent cell count reference ranges are not reported, since discordance with absolute values may lead to misinterpretation of CBC data. Current Interpretive Data was last revised on 2018. Lymphocyte pct 16.2 % [facility] Comment: Interpretive Data Percent cell count reference ranges are not reported, since discordance with absolute values may lead to misinterpretation of CBC data. Current Interpretive Data was last revised on 2018. Monocyte pct 6.6 % [facility] Comment: Interpretive Data Percent cell count reference ranges are not reported, since discordance with absolute values may lead to misinterpretation of CBC data. Current Interpretive Data was last revised on 2018. Eosinophil pct 1.8 % [facility] Comment: Interpretive Data Percent cell count reference ranges are not reported, since discordance with absolute values may lead to misinterpretation of CBC data. Current Interpretive Data was last revised on 2018. Basophil pct 0.3 % [facility] Comment: Interpretive Data Percent cell count reference ranges are not reported, since discordance with absolute values may lead to misinterpretation of CBC data. Current Interpretive Data was last revised on 2018. Blood 07/08/2025 4:12 PM CDT 07/08/2025 4:31 PM CDT us Joe Nielson MD LAB BLOOD ORDERABLES F inal Result [facility] Department [place] [address] * Thyroid Function Gem (07/08/2025 4:12 PM CDT) [facility] TSH 1.63 0.30 - 4.20 mcIUnit/mL Blood 07/08/2025 4:12 PM CDT 07/08/2025 4:31 PM CDT us Ben Rodriguez Jr., MD LAB BLOOD ORDERABLES F inal Result [facility] Department [place] [address] * (ABNORMAL) CBC with auto differential (07/08/2025 4:12 PM CDT) [facility] WBC 6.18 3.80 - 9.90 K/cumm Hgb 10.4(L) 11.9 - 15.5 g/dL [facility] Hct 32.7(L) 35.6 - 45.5 % [facility] Plt 101(L) 150 - 400 K/cumm [facility] MPV 11.4 9.1 - 12.3 fL [facility] RBC 3.03(L) 3.90 - 5.20 M/cumm [facility] MCV 107.9(H) 81.3 - 96.4 fL [facility] MCH 34.3(H) 27.1 - 33.3 pg [facility] MCHC 31.8(L) 32.3 - 35.7 g/dL [facility] RDW CV 16.6(H) 11.1 - 14.9 % [facility] RDW SD 65.9(H) 35.7 - 48.1 fL [facility] NRBC abs 0.00 0.00 - 0.01 K/cumm [facility] Blood 07/08/2025 4:12 PM CDT 07/08/2025 4:31 PM CDT us Joe Nielson MD LAB BLOOD ORDERABLES F inal Result [facility] Department [place] [address] * RPR Blood (07/08/2025 4:12 PM CDT) [facility] RPR Nonreactive Nonreactive Blood 07/08/2025 4:12 PM CDT 07/08/2025 4:31 PM CDT Ben Rodriguez Jr., MD LAB MICROBIOLOGY - GEN ERAL ORDERABLES Final Result [facility] [place] [address] * Lipase (07/08/2025 4:12 PM CDT) [facility] Lipase 26 10 - 99 Units/L Blood 07/08/2025 4:12 PM CDT 07/08/2025 4:31 PM CDT Joe Nielson MD LAB BLOOD ORDERABLES F inal Result Performing Organization Address City/[facility] Co de Phone Number [facility] Department [place] [address] * Creatine kinase (CK), total (07/08/2025 4:12 PM CDT) [facility] CK 53 30 - 200 Units/L Blood 07/08/2025 4:12 PM CDT 07/08/2025 4:31 PM CDT Ben Rodriguez Jr., MD LAB BLOOD ORDERABLES F inal Result [facility] [place] [place] [address] * (ABNORMAL) Comprehensive metabolic panel (07/08/2025 4:12 PM CDT) [facility] Sodium 143 135 - 145 mmol/L Potassium, pl 4.6 3.3 - 4.9 mmol/L [facility] Chloride 112(H) 97 - 110 mmol/L [facility] CO2 25 22 - 32 mmol/L [facility] Anion gap 6 2 - 15 mmol/L [facility] BUN 33(H) 6 - 25 mg/dL [facility] Creatinine 2.80(H) 0.60 - 1.10 mg/dL [facility] Glucose 131 70 - 199 mg/dL [facility] Comment: Interpretive Data Fasting glucose >/= 126 [...] 2022. Calcium 8.7 8.5 - 10.3 mg/dL [facility] Bilirubin, total 0.3 0.1 - 1.2 mg/dL [facility] Protein, pl 6.5 6.5 - 8.5 g/dL [facility] Albumin 3.5 3.5 - 5.0 g/dL [facility] Alk phos 54 40 - 130 Units/L [facility] ALT 15 7 - 45 Units/L [facility] AST 23 10 - 45 Units/L [facility] Blood 07/08/2025 4:12 PM CDT 07/08/2025 4:31 PM CDT us Joe Nielson MD LAB BLOOD ORDERABLES F inal Result [facility] Department [place] [address] * POCT glucose (07/08/2025 2:19 PM CDT) Glucose, POC 197 70 - 199 mg/dL Blood 07/08/2025 2:19 PM CDT 07/08/2025 2:19 PM CDT us Notinfile Unknown LAB POCT ORDERABLES - DEVICE F inal Result [facility] Department [place] [address] * SCAN - LABS (07/03/2025) us Provider Scanning Final Result * (ABNORMAL) Protime-INR (07/03/2025) INR 2.70(A) 0.90 - 1.10 EXTERNAL LAB Blood us Historical Provider MD LAB BLOOD ORDERABLES Nellie l Result EXTERNAL LAB from Last 3 Months Insurance [facility] MEDICARE ADVANTAGE [facility] MEDICARE ADVANTAGE [facility] MEDIC[facility] ADVANTAGE Advance Directives For more information, please contact: [phone] * Full Code (Latest Code Status on File) Date Activated Date Inactivated Comments 08/15/2025 9:09 PM 08/24/2025 7:52 PM * Full Code Date Activated Date Inactivated Comments 07/09/2025 7:31 AM 07/13/2025 10:52 PM Care Teams Drophammer Operator Relationship Specialty Start Date End Date New Bejarano MD [address] [place] [address] PCP - General Internal Medicine 08/15/25
[2025-09-04 17:29] LABS: Ferritin 51.90 ng/mL (11.1-264)
--- OUTSIDE RECORDS SUMMARY | 2025-09-04 17:29 | XMS_ITS | Encounter Summary ---
Author Organization [facility] Healthcare Address [address] [place] [address] Care Team Providers Care Tank Maker Wood Name Role Phone Oh Goode MD Primary Care Provider [phone] Bernie Rollins RN Unavailable [phone] New Bejarano MD Primary Care Provid er Encounter Details Date Type Department Care Team (Late st Contact Info) Description 04/12/2025 Orders Only [facility] [place] Health Information Management [address] [place] [address] Scanning, Provider Social History Tobacco Use Types Packs/Day Years Used Date Smoking Tobacco: Never Smokeless Tobacco: Never Alcohol Use Standard Drinks/Week Comments Yes 0 (1 standard drink = 0.6 oz pur e alcohol) Comments Unknown Sex and Gender Information Value Date Recorded Sex Assigned at Not on file Legal Sex Female 1:20 PM CHECK OUT CLERK Gender Identity Not on file Sexual Orientation [...] documented as of this encounter Care Teams Tank Maker Wood Relationship Specialty Start Date End Date Oh Goode MD PCP - General 05/28/13 08/14/25 New Bejarano MD [address] [place] [address] PCP - General Internal Medicine 08/15/25 Bernie Rollins, RN [address] [facility] [address] [place] [id number] SHOP Outpatient Manager Wealth Management 07/15/25 08/11/25 documented as of this encounter
--- OUTSIDE RECORDS SUMMARY | 2025-09-04 17:29 | XMS_ITS | Patient Health Record ---
Author Organization [facility] Address [address] [place], [place] [id number] Care Team Providers Care Power Transformer Inspector Name Role Phone GIOVANY Hardin Unavailable [phone] Oh Goode Unavailable Unavailable Reason For Referral No Information Social History Social History Additional Details Category Social Info Options Details Migrated Social History Migrated Social History History of tobacco use : , Smoking Status : Never used tobacco Plan Of Treatment No Information Insurance Providers Payer Name Payer Address Payer Phone Subscriber Number Group Number Insured Name Patient Relationship to Insured Coverage Start Date Coverage End Date AARP MedicareC omplete ([facility]) [address] [place], [place] [id number] SEAN SALMERON Self - patient is the insured
--- OUTSIDE RECORDS SUMMARY | 2025-09-04 17:29 | XMS_ITS | Encounter Summary ---
Author Organization [facility] Healthcare Address [address] [place] [address] Care Team Providers Care Supply Teacher Name Role Phone Oh Goode MD Primary Care Provider [phone] Bernie Rollins RN Unavailable [phone] New Bejarano MD Primary Care Provid er Encounter Details Date Type Department Care Team (Late st Contact Info) Description 03/21/2025 Orders Only [facility] Health Information Management [address] [place] [address] Scanning, Provider Social History Tobacco Use Types Packs/Day Years Used Date Smoking Tobacco: Never Smokeless Tobacco: Never Alcohol Use Standard Drinks/Week Comments Yes 0 (1 standard drink = 0.6 oz pur e alcohol) Comments Unknown Sex and Gender Information Value Date Recorded Sex Assigned at Not on file 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
--- OUTSIDE RECORDS SUMMARY | 2025-09-04 17:29 | XMS_ITS | Encounter Summary ---
Author Organization [facility] Healthcare Address [address] [place] [address] Care Team Providers Care Supervisor In Charge Name Role Phone Oh Goode MD Primary Care Provider [phone] [phone] Bernie Rollins RN Unavailable [phone] New Bejarano MD Primary Care Provid er Encounter Details Date Type Department Care Team (Late st Contact Info) Description 02/15/2025 Orders Only [facility] [place] Information Management [address] [place] [address] Scanning, Provider Social History Tobacco Use Types Packs/Day Years Used Date Smoking Tobacco: Never Smokeless Tobacco: Never Alcohol Use Standard Drinks/Week Comments Yes 0 (1 standard drink = 0.6 oz pur e alcohol) Comments Unknown Sex and Gender Information Value Date Recorded Sex Assigned at Not on file 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
--- OUTSIDE RECORDS SUMMARY | 2025-09-04 17:29 | XMS_ITS | Encounter Summary ---
Author Organization [facility] Healthcare Address [address] [place] [address] Care Team Providers Care Narrative Writer Name Role Phone Oh Goode MD Primary Care Provider [phone] Bernie Rollins RN Unavailable [phone] New Bejarano MD Primary Care Provid er Encounter Details Date Type Department Care Team (Late st Contact Info) Description 02/08/2025 Orders Only [facility] [place] Health Information Management [address] [place] [address] Scanning, Provider Social History Tobacco Use Types Packs/Day Years Used Date Smoking Tobacco: Never Smokeless Tobacco: Never Alcohol Use Standard Drinks/Week Comments Yes 0 (1 standard drink = 0.6 oz pur e alcohol) Comments Unknown Sex and Gender Information Value Date Recorded Sex Assigned at Not on file 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
--- OUTSIDE RECORDS SUMMARY | 2025-09-04 17:29 | XMS_ITS | Encounter Summary ---
Author Organization [facility] Healthcare Address [address] [place] [address] Care Team Providers Care Mop Man Name Role Phone Oh Goode MD Primary Care Provider [phone] Bernie Rollins RN Unavailable [phone] New Bejarano MD Primary Care Provid er Encounter Details Date Type Department Care Team (Late st Contact Info) Description 04/26/2025 Orders Only [facility] [place] Health Information Management [address] [place] [address] Scanning, Provider Social History Tobacco Use Types Packs/Day Years Used Date Smoking Tobacco: Never Smokeless Tobacco: Never Alcohol Use Standard Drinks/Week Comments Yes 0 (1 standard drink = 0.6 oz pur e alcohol) Comments Unknown Sex and Gender Information Value Date Recorded Sex Assigned at Not on file 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
--- OUTSIDE RECORDS SUMMARY | 2025-09-04 17:29 | XMS_ITS | Encounter Summary ---
Author Organization [facility] Healthcare Address [address] [place] [address] Care Team Providers Care Film Or Tape Librarian Name Role Phone Oh Goode MD Primary Care Provider [phone] Bernie Rollins RN Unavailable [phone] New Bejarano MD Primary Care Provid er Encounter Details Date Type Department Care Team (Late st Contact Info) Description 03/01/2025 Orders Only [facility] Information Management [address] [place] [address] Scanning, Provider Social History Tobacco Use Types Packs/Day Years Used Date Smoking Tobacco: Never Smokeless Tobacco: Never Alcohol Use Standard Drinks/Week Comments Yes 0 (1 standard drink = 0.6 oz pur e alcohol) Comments Unknown Sex and Gender Information Value Date Recorded Sex Assigned at Not on file 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
[2025-09-04 18:02] LABS: Vitamin B12 > 1000.0 pg/mL (239-931)
[2025-09-05 14:08] LABS: Albumin 3.3 g/dL (2.9-4.4); Alpha-1-Globulin 0.2 g/dL (0.0-0.4); Alpha-2-Globulin 0.6 g/dL (0.4-1.0); Gamma Globulin 1.0 g/dL (0.4-1.8)
== END 2025-09-04 15:25 | disposition home or self-care (01) ==
LOC: ANHLAB 15:25
PROVIDERS: PCP Family Medicine; Visit Provider Internal Medicine Hematology & Oncology
DX: D64.9 Anemia, unspecified (principal)
CPT/HCPCS: 36415; 80053; 82607; 82728; 82746; 83540; 83550; 84155; 84165; 84238; 85025